=== PATIENT | male | born 1940 | race Caucasian/White ===

== ENCOUNTER → 2016-12-07 | Outpatient (CLI) | payer MEDICARE, OTHER ==
[2016-12-07 12:09] LABS: Basophils % (A) 1 %; CHCM 33.5; Eosinophils # (A) 0.2 k/uL (0-0.7); Eosinophils % (A) 3 %; HCT 44.8 % (39.0-53.0); HDW 3.08; HGB 14.7 gm/dL (13.0-17.5); Luc # (Auto) 0.14; Luc % (Auto) 3; Lymphocytes # (A) 1.1 k/uL (1.0-4.8); Lymphocytes % (A) 24 %; MCH 27.6 pg (25.0-35.0); MCHC 32.8 g/dL (31.0-37.0); MCV 84.3 fL (80.0-100.0); Mean Platelet Volume 6.9; Monocytes # (A) 0.3 k/uL (0-1.0); Monocytes % (A) 6 %; Neutrophils # (A) 2.7 k/uL (1.3-7.7); Neutrophils % (A) 62 %; RBC 5.32 m/uL (4.30-5.90); RDW 14.6 % (11.5-15.5); WBC 4.4 k/uL (3.8-10.6); WBC (Perox) 4.42
[2016-12-07 12:33] LABS: Calcium 9.5 mg/dL (8.4-10.2); Magnesium 1.8 mg/dL (1.6-2.3); Phosphorous 4.1 mg/dL (2.5-4.5); Potassium 4.5 mmol/L (3.5-5.1); Uric Acid 5.7 mg/dL (3.5-8.5)
[2016-12-07 12:34] LABS: Appearance,Urine Clear (Clear); Bilirubin,Urine Negative (Negative); Glucose,Urine (UA) Negative (Negative); Ketones,Urine Negative (Negative); Leukocyte Esterase,Urine Negative (Negative); Nitrite,Urine Negative (Negative); PH, Urine 6.5 (5.0-8.0); Protein,Urine Negative (Negative); Specific Gravity,Urine 1.005 (1.001-1.035); UA Billing (MACRO vs. MICRO) CHEM; Urobilinogen,Urine <2.0 mg/dL (<2.0)
[2016-12-07 12:41] LABS: % Iron Saturation 29.6 % (20-50)
== END | disposition home or self-care (01) ==
LOC: LABWHC1 11:43
PROVIDERS: ATTEND Internal Medicine Nephrology
DX: N18.9 Chronic kidney disease, unspecified (principal); M10.9 Gout, unspecified; E21.3 Hyperparathyroidism, unspecified; E55.9 Vitamin D deficiency, unspecified; D64.9 Anemia, unspecified; Z94.0 Kidney transplant status
CPT/HCPCS: 36415; 80048; 80195; 81003; 82306; 82728; 83540; 83550; 83735; 83970; 84100; 84550; 85025

== ENCOUNTER → 2016-12-20 | Outpatient (CLI) | payer MEDICARE, OTHER ==
[2016-12-20 15:32] LABS: CH 28.1; CHCM 34.2; HCT 40.8 % (39.0-53.0); HDW 3.17; HGB 13.7 gm/dL (13.0-17.5); MCH 27.8 pg (25.0-35.0); MCHC 33.6 g/dL (31.0-37.0); MCV 82.7 fL (80.0-100.0); Mean Platelet Volume 6.9; RBC 4.94 m/uL (4.30-5.90); RDW 14.4 % (11.5-15.5); WBC 7.1 k/uL (3.8-10.6)
[2016-12-20 16:29] LABS: Calcium 9.9 mg/dL (8.4-10.2); Potassium 4.7 mmol/L (3.5-5.1); Total Bilirubin 0.4 mg/dL (0.2-1.3); Total Protein 6.5 g/dL (6.3-8.2)
== END ==
LOC: LABWHC1 15:05
PROVIDERS: ATTEND Internal Medicine Nephrology
DX: E11.22 Type 2 diabetes mellitus with diabetic chronic kidney disease (principal); N18.3 Chronic kidney disease, stage 3 (moderate); I11.9 Hypertensive heart disease without heart failure; E78.2 Mixed hyperlipidemia
CPT/HCPCS: 36415; 80053; 80061; 82043; 83036; 84439; 84443; 85027

== ENCOUNTER → 2017-01-03 | Outpatient (CLI) | payer MEDICARE, OTHER | END | disposition home or self-care (01) | LOC: LABWHC1 14:34 | PROVIDERS: ATTEND Urology | DX: C61 Malignant neoplasm of prostate (principal) | CPT/HCPCS: 36415; 84153 ==

== ENCOUNTER → 2017-02-08 | Outpatient (CLI) | payer MEDICARE, OTHER ==
[2017-02-08 13:33] LABS: Appearance,Urine Clear (Clear); Bilirubin,Urine Negative (Negative); Glucose,Urine (UA) Negative (Negative); Ketones,Urine Negative (Negative); Leukocyte Esterase,Urine Negative (Negative); Nitrite,Urine Negative (Negative); PH, Urine 6.5 (5.0-8.0); Protein,Urine Negative (Negative); Specific Gravity,Urine 1.005 (1.001-1.035); UA Billing (MACRO vs. MICRO) CHEM; Urobilinogen,Urine <2.0 mg/dL (<2.0)
[2017-02-08 13:40] LABS: Basophils # (A) 0.1 k/uL (0-0.2); Basophils % (A) 1 %; CH 27.4; CHCM 32.8; Eosinophils # (A) 0.1 k/uL (0-0.7); Eosinophils % (A) 2 %; HCT 48.5 % (39.0-53.0); Luc # (Auto) 0.24; Luc % (Auto) 4; Lymphocytes # (A) 1.4 k/uL (1.0-4.8); Lymphocytes % (A) 22 %; MCH 27.7 pg (25.0-35.0); MCHC 32.9 g/dL (31.0-37.0); MCV 84.1 fL (80.0-100.0); Mean Platelet Volume 6.9; Monocytes # (A) 0.5 k/uL (0-1.0); Monocytes % (A) 8 %; Neutrophils # (A) 4.1 k/uL (1.3-7.7); Neutrophils % (A) 63 %; RBC 5.77 m/uL (4.30-5.90); RDW 14.8 % (11.5-15.5); WBC 6.5 k/uL (3.8-10.6); WBC (Perox) 6.43
[2017-02-08 13:59] LABS: Calcium 9.2 mg/dL (8.4-10.2); Magnesium 1.8 mg/dL (1.6-2.3); Phosphorous 4.6 mg/dL (2.5-4.5); Potassium 4.3 mmol/L (3.5-5.1); Uric Acid 5.7 mg/dL (3.5-8.5)
[2017-02-08 14:08] LABS: % Iron Saturation 25.3 % (20-50)
== END | disposition home or self-care (01) ==
LOC: LABWHC1 12:44
PROVIDERS: ATTEND Internal Medicine Nephrology
DX: E55.9 Vitamin D deficiency, unspecified (principal); E21.3 Hyperparathyroidism, unspecified; M10.9 Gout, unspecified; N18.3 Chronic kidney disease, stage 3 (moderate); D63.1 Anemia in chronic kidney disease; Z94.0 Kidney transplant status
CPT/HCPCS: 36415; 80048; 80195; 81003; 82306; 82728; 83540; 83550; 83735; 83970; 84100; 84550; 85025

== ENCOUNTER 2017-02-09 10:41 | Emergency (ER) | payer MEDICARE, OTHER ==
--- NOTE | 2017-02-09 11:15 | ED ---
General Adult HPI - General Chief complaint: Arrhythmia/Palpitations Stated complaint: Abnormal heart rate Time Seen by Provider: 02/09/17 10:46 Source: patient, family, RN notes reviewed, old records reviewed Mode of arrival: wheelchair Limitations: no limitations - History of Present Illness Initial comments: This is a 76-year-old male here for evaluation. This patient presents for evaluation of low blood pressure, arrhythmia. Not feeling well. Patient does have history of heart disease history of A. fib. Patient sent in by his community music therapist for further evaluation. Patient this time denies chest pain, denies nausea vomiting. No bowel pain no diarrhea. Patient denies any recent change in medications. No travel history no sick contacts. Patient has no recent hospitalizations - Related Data Home Medications Medication Instructions Recorded Confirmed Allopurinol [Zyloprim] 100 mg PO DAILY 02/09/17 02/09/17 Amitriptyline HCl [Elavil] 100 mg PO HS 02/09/17 02/09/17 Atenolol [Tenormin] 25 mg PO DAILY 02/09/17 02/09/17 Atorvastatin [Lipitor] 20 mg PO HS 02/09/17 02/09/17 Calcium Carbonate 1,000 mg PO DAILY 02/09/17 02/09/17 Chlorthalidone 25 mg PO DAILY 02/09/17 02/09/17 Cholecalciferol [Vitamin D3] 1,000 unit PO DAILY 02/09/17 02/09/17 DULoxetine HCL [Cymbalta] 120 mg PO DAILY 02/09/17 02/09/17 Ezetimibe [Zetia] 10 mg PO DAILY 02/09/17 02/09/17 Fenofibrate Nanocrystallized 48 mg PO DAILY 02/09/17 02/09/17 [Tricor] Finasteride [Proscar] 5 mg PO DAILY 02/09/17 02/09/17 INSULIN LISPRO (HumaLOG) [HumaLOG] See Protocol SQ ACHS 02/09/17 02/09/17 Insulin Glargine [Lantus] 18 unit SQ HS 02/09/17 02/09/17 Levothyroxine Sodium [Synthroid] 25 mcg PO HS 02/09/17 02/09/17 Lisinopril [Zestril] 5 mg PO HS 02/09/17 02/09/17 Magnesium Oxide [Mag-Ox] 250 mg PO DAILY 02/09/17 02/09/17 Mycophenolate Mofetil [Cellcept] 1,000 mg PO BID 02/09/17 02/09/17 Rivaroxaban [Xarelto] 20 mg PO HS 02/09/17 02/09/17 Tamsulosin HCl [Flomax] 0.4 mg PO DAILY 02/09/17 02/09/17 Vit C/E/Zn/Coppr/Lutein/Zeaxan 1 cap PO HS 02/09/17 02/09/17 [Preservision Areds 2 Softgel] amLODIPine [Norvasc] 10 mg PO DAILY 02/09/17 02/09/17 clonazePAM [KlonoPIN] 1 mg PO HS PRN 02/09/17 02/09/17 traZODone HCL [Desyrel] 50 mg PO HS 02/09/17 02/09/17 Allergies Allergy/AdvReac Type Severity Reaction Status Date / Time morphine Allergy Itching Verified 02/09/17 10:59 Review of Systems ROS Statement: Those systems with pertinent positive or pertinent negative responses have been documented in the HPI. ROS Other: All systems not noted in ROS Statement are negative. Past Medical History Past Medical History: Diabetes Mellitus, Hyperlipidemia, Hypertension, Renal Disease, Thyroid Disorder History of Any Multi-Drug Resistant Organisms: None Reported Past Surgical History: Coronary Bypass/CABG, Orthopedic Surgery Additional Past Surgical History / Comment(s): kidney transplant, parathyoid surgery, knee Past Psychological History: Anxiety, Depression Smoking Status: Never smoker Past Alcohol Use History: Rare Past Drug Use History: None Reported General Exam Limitations: no limitations General appearance: alert, in no apparent distress Head exam: Present: atraumatic, normocephalic, normal inspection Eye exam: Present: normal appearance, PERRL, EOMI. Absent: scleral icterus, conjunctival injection, periorbital swelling ENT exam: Present: normal exam, mucous membranes moist Neck exam: Present: normal inspection. Absent: tenderness, meningismus, lymphadenopathy Respiratory exam: Present: normal lung sounds bilaterally. Absent: respiratory distress, wheezes, rales, rhonchi, stridor Cardiovascular Exam: Present: regular rate, normal rhythm, normal heart sounds. Absent: systolic murmur, diastolic murmur, rubs, gallop, clicks GI/Abdominal exam: Present: soft, normal bowel sounds. Absent: distended, tenderness, guarding, rebound, rigid Extremities exam: Present: normal inspection, full ROM, normal capillary refill. Absent: tenderness, pedal edema, joint swelling, calf tenderness Back exam: Present: normal inspection Neurological exam: Present: alert, oriented X3, CN II-XII intact Psychiatric exam: Present: normal affect, normal mood Skin exam: Present: warm, dry, intact, normal color. Absent: rash Course Vital Signs 02/09/17 02/09/17 02/09/17 10:47 12:17 12:55 Temperature 97.7 F 96.8 F L Pulse Rate 74 78 65 Respiratory 16 18 Rate Blood Pressure 114/61 110/59 116/69 O2 Sat by Pulse 96 98 94 L Oximetry EKG Findings - EKG Comments: EKG Findings:: EKG shows A. fib rate of 72, QRS 84, QTC 444 Medical Decision Making - Medical Decision Making 70 formality ER for evaluation palpitations, weakness, not feeling well. Patient states the study feels better, based on results of testing he would like to be discharged home - Lab Data Result diagrams: 02/09/17 11:13 02/09/17 11:13 Lab Results 02/09/17 02/09/17 02/09/17 Range/Units 11:13 11:13 11:13 WBC 5.2 (3.8-10.6) k/uL RBC 5.25 (4.30-5.90) m/uL Hgb 14.9 (13.0-17.5) gm/dL Hct 43.7 (39.0-53.0) % MCV 83.1 (80.0-100.0) fL MCH 28.3 (25.0-35.0) pg MCHC 34.1 (31.0-37.0) g/dL RDW 15.6 H (11.5-15.5) % Plt Count 211 (150-450) k/uL Neutrophils % 62 % Lymphocytes % 24 % Monocytes % 8 % Eosinophils % 2 % Basophils % 1 % Neutrophils # 3.2 (1.3-7.7) k/uL Lymphocytes # 1.2 (1.0-4.8) k/uL Monocytes # 0.4 (0-1.0) k/uL Eosinophils # 0.1 (0-0.7) k/uL Basophils # 0.1 (0-0.2) k/uL PT (9.0-12.0) sec INR (<1.2) APTT (22.0-30.0) sec Sodium 136 L (137-145) mmol/L Potassium 3.8 (3.5-5.1) mmol/L Chloride 105 (98-107) mmol/L Carbon Dioxide 21 L (22-30) mmol/L Anion Gap 10 mmol/L BUN 38 H (9-20) mg/dL Creatinine 2.14 H (0.66-1.25) mg/dL Est GFR (MDRD) Af Amer 37 (>60 ml/min/1.73 sqM) Est GFR (MDRD) Non-Af 30 (>60 ml/min/1.73 sqM) Glucose 150 H (74-99) mg/dL POC Glucose (mg/dL) (75-99) mg/dL POC Glu [employer]xture As[employer]er ID Plasma Lactic Acid Jc (0.7-2.0) mmol/L Calcium 9.2 (8.4-10.2) mg/dL Phosphorus 4.7 H (2.5-4.5) mg/dL Magnesium 1.9 (1.6-2.3) mg/dL Total Bilirubin 0.5 (0.2-1.3) mg/dL AST 25 (17-59) U/L ALT 33 (21-72) U/L Alkaline Phosphatase 65 (38-126) U/L Total Creatine Kinase 344 H (55-170) U/L CK-MB (CK-2) 3.8 H* (0.0-2.4) ng/mL CK-MB (CK-2) Rel Index 1.1 Troponin I 0.014 (0.000-0.034) ng/mL Total Protein 6.1 L (6.3-8.2) g/dL Albumin 4.0 (3.5-5.0) g/dL TSH 4.760 H (0.465-4.680) mIU/L Free T4 (0.78-2.19) ng/dL Free T3 pg/mL (2.8-5.3) pg/ml 02/09/17 02/09/17 02/09/17 Range/Units 11:13 11:13 11:13 WBC (3.8-10.6) k/uL RBC (4.30-5.90) m/uL Hgb (13.0-17.5) gm/dL Hct (39.0-53.0) % MCV (80.0-100.0) fL MCH (25.0-35.0) pg MCHC (31.0-37.0) g/dL RDW (11.5-15.5) % Plt Count (150-450) k/uL Neutrophils % % Lymphocytes % % Monocytes % % Eosinophils % % Basophils % % Neutrophils # (1.3-7.7) k/uL Lymphocytes # (1.0-4.8) k/uL Monocytes # (0-1.0) k/uL Eosinophils # (0-0.7) k/uL Basophils # (0-0.2) k/uL PT 12.9 H (9.0-12.0) sec INR 1.3 H (<1.2) APTT 29.1 (22.0-30.0) sec Sodium (137-145) mmol/L Potassium (3.5-5.1) mmol/L Chloride (98-107) mmol/L Carbon Dioxide (22-30) mmol/L Anion Gap mmol/L BUN (9-20) mg/dL Creatinine (0.66-1.25) mg/dL Est GFR (MDRD) Af Amer (>60 ml/min/1.73 sqM) Est GFR (MDRD) Non-Af (>60 ml/min/1.73 sqM) Glucose (74-99) mg/dL POC Glucose (mg/dL) (75-99) mg/dL POC Glu [employer]er ID Plasma Lactic Acid Jc 1.0 (0.7-2.0) mmol/L Calcium (8.4-10.2) mg/dL Phosphorus (2.5-4.5) mg/dL Magnesium (1.6-2.3) mg/dL Total Bilirubin (0.2-1.3) mg/dL AST (17-59) U/L ALT (21-72) U/L Alkaline Phosphatase (38-126) U/L Total Creatine Kinase (55-170) U/L CK-MB (CK-2) (0.0-2.4) ng/mL CK-MB (CK-2) Rel Index Troponin I (0.000-0.034) ng/mL Total Protein (6.3-8.2) g/dL Albumin (3.5-5.0) g/dL TSH (0.465-4.680) mIU/L Free T4 1.06 (0.78-2.19) ng/dL Free T3 pg/mL 3.0 (2.8-5.3) pg/ml 02/09/17 Range/Units 11:43 WBC (3.8-10.6) k/uL RBC (4.30-5.90) m/uL Hgb (13.0-17.5) gm/dL Hct (39.0-53.0) % MCV (80.0-100.0) fL MCH (25.0-35.0) pg MCHC (31.0-37.0) g/dL RDW (11.5-15.5) % Plt Count (150-450) k/uL Neutrophils % % Lymphocytes % % Monocytes % % Eosinophils % % Basophils % % Neutrophils # (1.3-7.7) k/uL Lymphocytes # (1.0-4.8) k/uL Monocytes # (0-1.0) k/uL Eosinophils # (0-0.7) k/uL Basophils # (0-0.2) k/uL PT (9.0-12.0) sec INR (<1.2) APTT (22.0-30.0) sec Sodium (137-145) mmol/L Potassium (3.5-5.1) mmol/L Chloride (98-107) mmol/L Carbon Dioxide (22-30) mmol/L Anion Gap mmol/L BUN (9-20) mg/dL Creatinine (0.66-1.25) mg/dL Est GFR (MDRD) Af Amer (>60 ml/min/1.73 sqM) Est GFR (MDRD) Non-Af (>60 ml/min/1.73 sqM) Glucose (74-99) mg/dL POC Glucose (mg/dL) 162 H (75-99) mg/dL POC Glu [employer] Assembler ID Steffen Billy Plasma Lactic Acid Jc (0.7-2.0) mmol/L Calcium (8.4-10.2) mg/dL Phosphorus (2.5-4.5) mg/dL Magnesium (1.6-2.3) mg/dL Total Bilirubin (0.2-1.3) mg/dL AST (17-59) U/L ALT (21-72) U/L Alkaline Phosphatase (38-126) U/L Total Creatine Kinase (55-170) U/L CK-MB (CK-2) (0.0-2.4) ng/mL CK-MB (CK-2) Rel Index Troponin I (0.000-0.034) ng/mL Total Protein (6.3-8.2) g/dL Albumin (3.5-5.0) g/dL TSH (0.465-4.680) mIU/L Free T4 (0.78-2.19) ng/dL Free T3 pg/mL (2.8-5.3) pg/ml - Radiology Data Radiology results: report reviewed (Chest x-ray is negative for acute disease), image reviewed Disposition Clinical Impression: Palpitations, Weakness Disposition: HOME SELF-CARE Condition: Good Instructions: Weakness (ED) Referrals: Donnie Ro MD [Primary Care Provider] - 1-2 days
[2017-02-09 11:28] LABS: Basophils # (A) 0.1 k/uL (0-0.2); Basophils % (A) 1 %; CH 28.5; CHCM 34.6; Eosinophils # (A) 0.1 k/uL (0-0.7); Eosinophils % (A) 2 %; HCT 43.7 % (39.0-53.0); HDW 3.13; HGB 14.9 gm/dL (13.0-17.5); Luc # (Auto) 0.17; Luc % (Auto) 3; Lymphocytes # (A) 1.2 k/uL (1.0-4.8); Lymphocytes % (A) 24 %; MCH 28.3 pg (25.0-35.0); MCHC 34.1 g/dL (31.0-37.0); MCV 83.1 fL (80.0-100.0); Mean Platelet Volume 7.6; Monocytes # (A) 0.4 k/uL (0-1.0); Monocytes % (A) 8 %; Neutrophils # (A) 3.2 k/uL (1.3-7.7); Neutrophils % (A) 62 %; RBC 5.25 m/uL (4.30-5.90); RDW 15.6 % (11.5-15.5); WBC 5.2 k/uL (3.8-10.6); WBC (Perox) 4.96
[2017-02-09 11:37] LABS: Calcium 9.2 mg/dL (8.4-10.2); Magnesium 1.9 mg/dL (1.6-2.3); Phosphorous 4.7 mg/dL (2.5-4.5); Potassium 3.8 mmol/L (3.5-5.1); Total Bilirubin 0.5 mg/dL (0.2-1.3); Total Protein 6.1 g/dL (6.3-8.2)
--- NOTE | 2017-02-09 11:37 | XR ---
EXAMINATION TYPE: XR chest 2V DATE OF EXAM: 02/09/2017 COMPARISON: 01/19/2016 HISTORY: Shortness of breath TECHNIQUE: Frontal and lateral views of the chest are obtained. FINDINGS: Scattered senescent parenchymal changes noted. Hyperinflation compatible with COPD. No evidence for infiltrate. No evidence for atelectasis. Heart size is stable. Mediastinal structures are stable and grossly unremarkable. No evidence for hilar prominence. Degenerative changes dorsal spine. IMPRESSION: 1. No evidence for acute pulmonary disease.
[2017-02-09 11:46] LABS: Glucose,Whole Blood 162 mg/dL (75-99)
[2017-02-09 12:05] LABS: Troponin I 0.014 ng/mL (0.000-0.034)
[2017-02-09 12:10] LABS: Creatine Kinase MB 3.8 ng/mL (0.0-2.4)
[2017-02-09 12:13] LABS: INR 1.3 (<1.2); Partial Thromboplastin Time 29.1 sec (22.0-30.0); Prothrombin Time 12.9 sec (9.0-12.0)
[2017-02-09 12:18] VITALS: RESP 18
[2017-02-09 12:57] VITALS: BP 116/69; PULSE 65; TEMP 96.8
== END 2017-02-09 13:01 | disposition home or self-care (01) ==
LOC: EC 10:41
DX: I48.91 Unspecified atrial fibrillation (principal); I95.9 Hypotension, unspecified; E78.5 Hyperlipidemia, unspecified; I10 Essential (primary) hypertension; E11.9 Type 2 diabetes mellitus without complications; E07.9 Disorder of thyroid, unspecified; F41.9 Anxiety disorder, unspecified; F32.9 Major depressive disorder, single episode, unspecified; N28.9 Disorder of kidney and ureter, unspecified; Z79.01 Long term (current) use of anticoagulants; Z79.4 Long term (current) use of insulin; Z79.899 Other long term (current) drug therapy; Z88.5 Allergy status to narcotic agent; Z95.1 Presence of aortocoronary bypass graft
CPT/HCPCS: 36415; 71020; 80053; 82550; 82553; 83605; 83735; 84100; 84439; 84443; 84481; 84484; 85025; 85610; 85730; 93005; 99285

== ENCOUNTER → 2017-03-02 | Outpatient (CLI) | payer MEDICARE, OTHER ==
[2017-03-02 13:40] LABS: Calcium 9.9 mg/dL (8.4-10.2); Potassium 4.2 mmol/L (3.5-5.1)
== END | disposition home or self-care (01) ==
LOC: LABWHC1 13:00
PROVIDERS: ATTEND Internal Medicine Nephrology
DX: N18.3 Chronic kidney disease, stage 3 (moderate) (principal)
CPT/HCPCS: 36415; 80048

== ENCOUNTER → 2017-04-19 | Outpatient (CLI) | payer MEDICARE, OTHER ==
[2017-04-19 14:13] LABS: Basophils % (A) 1 %; CH 27.1; CHCM 32.2; Eosinophils # (A) 0.1 k/uL (0-0.7); Eosinophils % (A) 2 %; HCT 48.4 % (39.0-53.0); HDW 3.17; HGB 15.8 gm/dL (13.0-17.5); Hypochromasia Slight; Luc # (Auto) 0.14; Luc % (Auto) 3; Lymphocytes # (A) 0.9 k/uL (1.0-4.8); Lymphocytes % (A) 15 %; MCH 27.7 pg (25.0-35.0); MCHC 32.6 g/dL (31.0-37.0); MCV 84.8 fL (80.0-100.0); Mean Platelet Volume 6.9; Monocytes # (A) 0.4 k/uL (0-1.0); Monocytes % (A) 7 %; Neutrophils # (A) 4.2 k/uL (1.3-7.7); Neutrophils % (A) 73 %; RBC 5.71 m/uL (4.30-5.90); RDW 15.2 % (11.5-15.5); WBC 5.8 k/uL (3.8-10.6); WBC (Perox) 5.65
[2017-04-19 14:15] LABS: Appearance,Urine Clear (Clear); Bilirubin,Urine Negative (Negative); Glucose,Urine (UA) Negative (Negative); Ketones,Urine Negative (Negative); Leukocyte Esterase,Urine Negative (Negative); Nitrite,Urine Negative (Negative); PH, Urine 6.5 (5.0-8.0); Protein,Urine Negative (Negative); Specific Gravity,Urine 1.007 (1.001-1.035); UA Billing (MACRO vs. MICRO) CHEM; Urobilinogen,Urine <2.0 mg/dL (<2.0)
[2017-04-19 14:29] LABS: Calcium 9.5 mg/dL (8.4-10.2); Magnesium 1.7 mg/dL (1.6-2.3); Phosphorous 3.3 mg/dL (2.5-4.5); Potassium 4.3 mmol/L (3.5-5.1); Uric Acid 5.5 mg/dL (3.5-8.5)
[2017-04-19 18:36] LABS: Iron Saturation 29.47 (15.00-50.00)
== END | disposition home or self-care (01) ==
LOC: LABWHC1 13:38
PROVIDERS: ATTEND Internal Medicine Nephrology
DX: D64.9 Anemia, unspecified (principal); N18.3 Chronic kidney disease, stage 3 (moderate); E55.9 Vitamin D deficiency, unspecified; E21.3 Hyperparathyroidism, unspecified; M10.9 Gout, unspecified; N39.0 Urinary tract infection, site not specified; Z94.0 Kidney transplant status
CPT/HCPCS: 36415; 80048; 80195; 81003; 82306; 82728; 83540; 83550; 83735; 83970; 84100; 84550; 85025

== ENCOUNTER → 2017-06-21 | Outpatient (CLI) | payer MEDICARE, OTHER ==
[2017-06-21 10:55] LABS: Calcium 9.2 mg/dL (8.4-10.2); Potassium 4.2 mmol/L (3.5-5.1); Total Bilirubin 0.4 mg/dL (0.2-1.3); Total Protein 6.3 g/dL (6.3-8.2)
== END | disposition home or self-care (01) ==
LOC: LABWHC1 09:24
PROVIDERS: ATTEND Internal Medicine Endocrinology, Diabetes & Metabolism
DX: E11.65 Type 2 diabetes mellitus with hyperglycemia (principal)
CPT/HCPCS: 36415; 80053; 80061; 83036

== ENCOUNTER → 2017-11-28 | Outpatient (CLI) | payer MEDICARE, OTHER ==
[2017-11-28 11:48] LABS: Basophils # (A) 0.1 k/uL (0-0.2); Basophils % (A) 1 %; Eosinophils # (A) 0.2 k/uL (0-0.7); Eosinophils % (A) 3 %; HGB 15.9 gm/dL (13.0-17.5); Lymphocytes # (A) 1.3 k/uL (1.0-4.8); Lymphocytes % (A) 17 %; MCH 26.5 pg (25.0-35.0); MCHC 33.1 g/dL (31.0-37.0); MCV 79.9 fL (80.0-100.0); Mean Platelet Volume 6.6; Monocytes # (A) 0.4 k/uL (0-1.0); Monocytes % (A) 6 %; Neutrophils # (A) 5.5 k/uL (1.3-7.7); Neutrophils % (A) 72 %; Platelet Count 204 k/uL (150-450); RBC 6.01 m/uL (4.30-5.90); RDW 15.5 % (11.5-15.5); WBC 7.6 k/uL (3.8-10.6)
[2017-11-28 12:03] LABS: Magnesium 1.7 mg/dL (1.6-2.3); Phosphorus 4.2 mg/dL (2.5-4.5); Potassium 4.6 mmol/L (3.5-5.1); Uric Acid 4.8 mg/dL (3.5-8.5)
[2017-11-28 12:16] LABS: Appearance,Urine Clear (Clear); Bilirubin,Urine Negative (Negative); Blood,Urine Negative (Negative); Color,Urine Light Yellow; Glucose,Urine (UA) Negative (Negative); Ketones,Urine Negative (Negative); Leukocyte Esterase,Urine Negative (Negative); Nitrite,Urine Negative (Negative); PH, Urine 6.5 (5.0-8.0); Protein,Urine Negative (Negative); Specific Gravity,Urine 1.004 (1.001-1.035); Urobilinogen,Urine <2.0 mg/dL (<2.0)
[2017-11-28 16:36] LABS: Iron Saturation 29.47 (15.00-50.00)
[2017-11-28 16:45] LABS: Vitamin D 25 Hydroxy 33.6 ng/mL (30.0-100.0)
[2017-11-28 18:48] LABS: Parathyroid Hormone Intact 10.7 pg/mL (14.0-72.0)
== END | disposition home or self-care (01) ==
LOC: LABWHC1 11:12
PROVIDERS: ATTEND Nurse Practitioner Family
DX: N18.3 Chronic kidney disease, stage 3 (moderate) (principal); D64.9 Anemia, unspecified; E55.9 Vitamin D deficiency, unspecified; E21.3 Hyperparathyroidism, unspecified; M10.9 Gout, unspecified
CPT/HCPCS: 36415; 80048; 80195; 81003; 82306; 82728; 83540; 83550; 83735; 83970; 84100; 84550; 85025

== ENCOUNTER → 2017-12-27 | Outpatient (CLI) | payer MEDICARE, OTHER | END | disposition home or self-care (01) | LOC: LABWHC1 13:47 | PROVIDERS: ATTEND Nurse Practitioner Family | DX: Z94.0 Kidney transplant status (principal) | CPT/HCPCS: 36415; 80195 ==

== ENCOUNTER → 2018-01-01 | Outpatient (CLI) | payer MEDICARE, OTHER | END | disposition home or self-care (01) | LOC: LABWHC1 16:10 | PROVIDERS: ATTEND Urology | DX: J18.9 Pneumonia, unspecified organism (principal) | CPT/HCPCS: 36415; 84153 ==

== ENCOUNTER → 2018-01-26 | Outpatient (CLI) | payer MEDICARE, OTHER ==
[2018-01-26 15:11] LABS: Albumin 4.4 g/dL (3.5-5.0); Calcium 9.6 mg/dL (8.4-10.2); Potassium 4.3 mmol/L (3.5-5.1); Total Bilirubin 0.7 mg/dL (0.2-1.3); Total Protein 6.7 g/dL (6.3-8.2)
[2018-01-26 15:12] LABS: HCT 52.4 % (39.0-53.0); HGB 17.1 gm/dL (13.0-17.5); Hypochromasia Slight; MCH 27.3 pg (25.0-35.0); MCHC 32.5 g/dL (31.0-37.0); Mean Platelet Volume 6.7; Platelet Count 189 k/uL (150-450); RBC 6.24 m/uL (4.30-5.90); RDW 15.9 % (11.5-15.5); WBC 6.1 k/uL (3.8-10.6)
[2018-01-26 15:28] LABS: T4, Free (Free Thyroxine) 0.81 ng/dL (0.78-2.19)
[2018-01-26 21:51] LABS: Hemoglobin A1C 6.1 % (4.0-6.0)
== END | disposition home or self-care (01) ==
LOC: LABWHC1 14:15
PROVIDERS: ATTEND Internal Medicine
DX: I25.10 Atherosclerotic heart disease of native coronary artery without angina pectoris (principal); K21.0 Gastro-esophageal reflux disease with esophagitis; E78.2 Mixed hyperlipidemia; E11.9 Type 2 diabetes mellitus without complications; I11.9 Hypertensive heart disease without heart failure
CPT/HCPCS: 36415; 80053; 80061; 82043; 82272; 82570; 83036; 84439; 84443; 85027

== ENCOUNTER → 2018-03-29 | Outpatient (CLI) | payer MEDICARE, OTHER ==
[2018-03-29 08:48] LABS: Basophils # (A) 0.1 k/uL (0-0.2); Basophils % (A) 1 %; Eosinophils # (A) 0.1 k/uL (0-0.7); Eosinophils % (A) 2 %; HCT 52.2 % (39.0-53.0); HGB 16.7 gm/dL (13.0-17.5); Hypochromasia Slight; Lymphocytes # (A) 2.3 k/uL (1.0-4.8); Lymphocytes % (A) 36 %; MCH 26.8 pg (25.0-35.0); MCV 83.9 fL (80.0-100.0); Monocytes # (A) 0.5 k/uL (0-1.0); Monocytes % (A) 8 %; Neutrophils # (A) 3.1 k/uL (1.3-7.7); Neutrophils % (A) 49 %; Platelet Count 190 k/uL (150-450); RBC 6.23 m/uL (4.30-5.90); RDW 15.6 % (11.5-15.5); WBC 6.4 k/uL (3.8-10.6)
[2018-03-29 08:56] LABS: Calcium 9.4 mg/dL (8.4-10.2); Magnesium 1.9 mg/dL (1.6-2.3); Phosphorus 4.3 mg/dL (2.5-4.5); Potassium 3.9 mmol/L (3.5-5.1); Uric Acid 4.4 mg/dL (3.5-8.5)
[2018-03-29 17:23] LABS: Iron Saturation 15.83 (15.00-50.00)
[2018-03-29 17:31] LABS: Vitamin D 25 Hydroxy 26.7 ng/mL (30.0-100.0)
[2018-03-29 17:47] LABS: Parathyroid Hormone Intact 26.9 pg/mL (14.0-72.0)
== END | disposition home or self-care (01) ==
LOC: LABWHC1 08:02
PROVIDERS: ATTEND Nurse Practitioner Family
DX: N18.3 Chronic kidney disease, stage 3 (moderate) (principal); D63.1 Anemia in chronic kidney disease; E55.9 Vitamin D deficiency, unspecified; E21.3 Hyperparathyroidism, unspecified; M10.9 Gout, unspecified; N39.0 Urinary tract infection, site not specified; Z94.0 Kidney transplant status
CPT/HCPCS: 36415; 80048; 80195; 82306; 82728; 83540; 83550; 83735; 83970; 84100; 84550; 85025

== ENCOUNTER → 2018-04-06 | Outpatient (CLI) | payer MEDICARE, OTHER ==
[2018-04-06 20:06] LABS: Hemoglobin A1C 6.7 % (4.0-6.0)
== END ==
LOC: LABWHC1 13:40
PROVIDERS: ATTEND Internal Medicine
DX: E11.9 Type 2 diabetes mellitus without complications (principal)
CPT/HCPCS: 36415; 83036

== ENCOUNTER → 2018-05-15 | Outpatient (CLI) | payer MEDICARE, OTHER | END | disposition home or self-care (01) | LOC: LABWHC1 15:38 | PROVIDERS: ATTEND Urology | DX: C61 Malignant neoplasm of prostate (principal) | CPT/HCPCS: 36415; 84153 ==

== ENCOUNTER → 2018-11-28 | Outpatient (CLI) | payer MEDICARE ==
[2018-11-28 14:12] LABS: Basophils # (A) 0.1 k/uL (0-0.2); Basophils % (A) 1 %; Eosinophils # (A) 0.1 k/uL (0-0.7); Eosinophils % (A) 2 %; HGB 15.4 gm/dL (13.0-17.5); Hypochromasia Slight; Lymphocytes # (A) 0.7 k/uL (1.0-4.8); Lymphocytes % (A) 11 %; MCH 26.8 pg (25.0-35.0); MCHC 30.9 g/dL (31.0-37.0); MCV 86.6 fL (80.0-100.0); Mean Platelet Volume 6.7; Monocytes # (A) 0.3 k/uL (0-1.0); Monocytes % (A) 5 %; Neutrophils # (A) 4.8 k/uL (1.3-7.7); Neutrophils % (A) 80 %; Platelet Count 196 k/uL (150-450); RBC 5.77 m/uL (4.30-5.90); RDW 15.8 % (11.5-15.5)
[2018-11-28 19:58] LABS: Iron Saturation 18.8 (15.00-50.00)
[2018-11-28 20:07] LABS: Vitamin D 25 Hydroxy 37.1 ng/mL (30.0-100.0)
[2018-11-28 20:27] LABS: Parathyroid Hormone Intact 21.6 pg/mL (14.0-72.0)
[2018-11-28 20:28] LABS: Albumin 4.4 g/dL (3.80-4.90); Calcium 9.4 mg/dL (8.7-10.3); Phosphorus 3.4 mg/dL (2.4-5.1); Potassium 4.5 mmol/L (3.5-5.5); Uric Acid 4.9 mg/dL (3.7-8.7)
[2018-11-28 21:00] LABS: Hemoglobin A1C 6.3 % (4.0-6.0)
== END | disposition home or self-care (01) ==
LOC: LABWHC1 13:00
PROVIDERS: ATTEND Internal Medicine
DX: E11.22 Type 2 diabetes mellitus with diabetic chronic kidney disease (principal); N18.3 Chronic kidney disease, stage 3 (moderate); D63.1 Anemia in chronic kidney disease; E55.9 Vitamin D deficiency, unspecified; N25.81 Secondary hyperparathyroidism of renal origin; R80.9 Proteinuria, unspecified; M10.9 Gout, unspecified; N39.0 Urinary tract infection, site not specified; C61 Malignant neoplasm of prostate
CPT/HCPCS: 36415; 80048; 80195; 82040; 82306; 82728; 83036; 83540; 83550; 83735; 83970; 84100; 84153; 84550; 85025

== ENCOUNTER → 2018-12-31 | Outpatient (CLI) | payer MEDICARE ==
[2018-12-31 13:14] LABS: HCT 51.4 % (39.0-53.0); HGB 16.3 gm/dL (13.0-17.5); Hypochromasia Slight; MCHC 31.7 g/dL (31.0-37.0); MCV 85.2 fL (80.0-100.0); Mean Platelet Volume 7.2; Platelet Count 191 k/uL (150-450); RBC 6.03 m/uL (4.30-5.90); WBC 5.7 k/uL (3.8-10.6)
[2018-12-31 13:19] LABS: Potassium 4.1 mmol/L (3.5-5.1)
== END | disposition home or self-care (01) ==
LOC: LABPAT 12:28
PROVIDERS: ATTEND Internal Medicine Interventional Cardiology
DX: Z01.812 Encounter for preprocedural laboratory examination (principal); I48.0 Paroxysmal atrial fibrillation; E78.00 Pure hypercholesterolemia, unspecified
CPT/HCPCS: 36415; 80051; 82565; 84520; 85027

== ENCOUNTER 2019-01-03 06:12 | Day surgery (SDC) | payer MEDICARE ==
[2018-12-31 15:57] VITALS: BMI 30.2
[2019-01-03] MEDS ORDERED: SODIUM CHLORIDE 0.9% 1,000 ML IV SCH (06:41)
[2019-01-03] MEDS ORDERED: LACTATED RINGERS 1,000 ML IV SCH (06:41)
[2019-01-03 07:08] LABS: Glucose,Whole Blood 94 mg/dL (75-99)
[2019-01-03] MEDS ORDERED: LIDOCAINE 1% INJ 10MG/ML (20 ML MDV) ONE (07:30)
[2019-01-03] MEDS ORDERED: PROPOFOL 10 MG/ML 20 ML VIAL IV ONE (07:30)
[2019-01-03] MEDS ORDERED: SODIUM CHLORIDE 0.9% 500 ML 500 ML IV ONE (07:52)
[2019-01-03 08:03] VITALS: TEMP 98
--- NOTE | 2019-01-03 08:07 | CE ---
CARDIAC ELECTROPHYSIOLOGY REPORT PROCEDURE: Electrical cardioversion. INDICATION: Persistent atrial fibrillation in a patient with previous renal transplantation and diabetes. He was started on amiodarone 200 mg t.i.d. for about 10 days and brought in for the procedure. PROCEDURE NOTE: Under the influence of ultra short-acting intravenous anesthetic agent with the attendance of the anesthesiologist, an initial shock of 200 joules was delivered with anterior and posterior patches. Patient remained in atrial fibrillation after a couple of sinus beats. A second shock of 250 joules was delivered and patient converted to sinus rhythm. He remained neurologically intact and hemodynamically stable. This was a successful electrical cardioversion on the second shock. Results were discussed with the patient and family and I expect he will be discharged later on today and I will see him in the office in one week. MMODL / IJN: [id number] /
[2019-01-03 09:39] VITALS: PULSE 80
[2019-01-03 10:45] VITALS: BP 158/92; RESP 18
--- NOTE | 2019-01-08 06:21 | CDI ---
Outpatient Documentation Clarification Form Date: 01/08/19 CDS/Animal Control Officer Name: Shira Funes Phone: If any questions, call Seema Hoover Real Estate Clerk at [phone] Patient Name: Chet Lobo Admit Date: 01/03/19 Discharge Date: 01/03/19 ATTENTION: The [facility] Coding Staff appreciate your assistance in clarifying documentation. Please respond to the clarification below the line at the bottom and electronically sign. The [facility] Coding staff will review the response and follow-up if needed. Please note: Queries are made part of the Legal Health Record. If you have any questions, please contact the Real Estate Clerk. Dear Dr. Crabtree, Please provide clarification as to what type of atrial fibrillation for this patient. On the H&P under Impression and Plan, it is documented as paroxysmal atrial fibrillation and on the cardioversion report it is documented as persistent atrial fibrillation. Please clarify. Thank you for your kind consideration. Persistant A fib MTDD
== END 2019-01-03 12:11 | disposition home or self-care (01) ==
LOC: CATHCVL 06:12
PROVIDERS: ATTEND Internal Medicine Interventional Cardiology
DX: I48.1 Persistent atrial fibrillation (principal); E78.00 Pure hypercholesterolemia, unspecified; E11.9 Type 2 diabetes mellitus without complications; I10 Essential (primary) hypertension; E78.5 Hyperlipidemia, unspecified; Z94.0 Kidney transplant status; Z79.890 Hormone replacement therapy; E07.9 Disorder of thyroid, unspecified; R41.3 Other amnesia; M19.90 Unspecified osteoarthritis, unspecified site; F41.9 Anxiety disorder, unspecified; F32.9 Major depressive disorder, single episode, unspecified; Z79.01 Long term (current) use of anticoagulants; Z79.4 Long term (current) use of insulin; Z79.899 Other long term (current) drug therapy; Z88.5 Allergy status to narcotic agent
CPT/HCPCS: 92960; J2001; J2704

== ENCOUNTER → 2019-01-08 | Outpatient (CLI) | payer MEDICARE ==
[2019-01-08 23:39] LABS: African American GFR (CKD) 41.4 (60.0-200.0); Anion Gap 9.3 mmol/L (4.00-12.00); BUN/Creat Ratio 11.67 Ratio (12.00-20.00); Calcium 9.4 mg/dL (8.7-10.3); Carbon Dioxide 28.7 mmol/L (21.6-31.8)
== END | disposition home or self-care (01) ==
LOC: LABWHC1 15:09
PROVIDERS: ATTEND Internal Medicine Nephrology
DX: N18.3 Chronic kidney disease, stage 3 (moderate) (principal)
CPT/HCPCS: 36415; 80048

== ENCOUNTER → 2019-02-23 | Outpatient (CLI) | payer MEDICARE ==
[2019-02-23 11:27] LABS: Basophils # (A) 0.1 k/uL (0-0.2); Basophils % (A) 1 %; Eosinophils # (A) 0.1 k/uL (0-0.7); Eosinophils % (A) 2 %; HGB 14.8 gm/dL (13.0-17.5); Lymphocytes # (A) 1.1 k/uL (1.0-4.8); Lymphocytes % (A) 17 %; MCH 26.1 pg (25.0-35.0); MCHC 31.6 g/dL (31.0-37.0); MCV 82.7 fL (80.0-100.0); Mean Platelet Volume 6.6; Monocytes # (A) 0.5 k/uL (0-1.0); Monocytes % (A) 8 %; Neutrophils # (A) 4.4 k/uL (1.3-7.7); Neutrophils % (A) 70 %; Platelet Count 225 k/uL (150-450); RBC 5.68 m/uL (4.30-5.90); RDW 15.4 % (11.5-15.5); WBC 6.4 k/uL (3.8-10.6)
[2019-02-23 12:19] LABS: Appearance,Urine Clear (Clear); Bilirubin,Urine Negative (Negative); Blood,Urine Negative (Negative); Color,Urine Light Yellow; Glucose,Urine (UA) Negative (Negative); Ketones,Urine Negative (Negative); Leukocyte Esterase,Urine Negative (Negative); Nitrite,Urine Negative (Negative); PH, Urine 6.5 (5.0-8.0); Protein,Urine Negative (Negative); Specific Gravity,Urine 1.008 (1.001-1.035); Urobilinogen,Urine <2.0 mg/dL (<2.0)
[2019-02-23 16:56] LABS: Iron Saturation 13.33 (15.00-50.00)
[2019-02-23 16:58] LABS: African American GFR (CKD) 41.4 (60.0-200.0); Albumin 4.1 g/dL (3.80-4.90); Anion Gap 8.9 mmol/L (4.00-12.00); BUN/Creat Ratio 12.22 Ratio (12.00-20.00); Calcium 9.2 mg/dL (8.7-10.3); Carbon Dioxide 26.1 mmol/L (21.6-31.8); Magnesium 1.8 mg/dL (1.5-2.4); Phosphorus 4.3 mg/dL (2.4-5.1); Uric Acid 3.5 mg/dL (3.7-8.7)
[2019-02-23 17:04] LABS: Vitamin D 25 Hydroxy 39.3 ng/mL (30.0-100.0)
[2019-02-23 18:06] LABS: Creatinine,Urine Random 60.3 mg/dL; Total Protein,Urine Random 8.2 mg/dL (0.0-13.5)
== END | disposition home or self-care (01) ==
LOC: LABWHC1 10:45
PROVIDERS: ATTEND Internal Medicine Nephrology
DX: N18.3 Chronic kidney disease, stage 3 (moderate) (principal); R80.9 Proteinuria, unspecified; E55.9 Vitamin D deficiency, unspecified; N25.81 Secondary hyperparathyroidism of renal origin; M10.9 Gout, unspecified; N39.0 Urinary tract infection, site not specified; D64.9 Anemia, unspecified
CPT/HCPCS: 36415; 80048; 80195; 81003; 82040; 82306; 82570; 82728; 83540; 83550; 83735; 83970; 84100; 84156; 84550; 85025

== ENCOUNTER → 2019-03-27 | Outpatient (CLI) | payer MEDICARE ==
[2019-03-27 20:09] LABS: Chol/HDL Ratio 3.02; LDL Cholesterol,Calculated 77.6 mg/dL (0.0-131.0); VLDL Calculation 25.4 mg/dL (5.00-40.00)
[2019-03-27 22:27] LABS: Hemoglobin A1C 6.8 % (4.0-6.0)
== END | disposition home or self-care (01) ==
LOC: LABWHC1 13:43
PROVIDERS: ATTEND Internal Medicine
DX: E11.9 Type 2 diabetes mellitus without complications (principal)
CPT/HCPCS: 36415; 80061; 82043; 82570; 83036

== ENCOUNTER 2019-04-28 15:24 | Emergency (ER) | payer MEDICARE ==
[2019-04-28 15:27] VITALS: RESP 18
--- NOTE | 2019-04-28 16:28 | ED ---
General Adult HPI - General Chief complaint: Upper Respiratory Infection Stated complaint: URI Time Seen by Provider: 04/28/19 16:14 Source: patient Mode of arrival: ambulatory Limitations: no limitations - History of Present Illness Initial comments: Patient presents to the ED with his for evaluation. The patient states that he has had a cough and nasal congestion for the past 5 days. Patient states that he has been coughing up green sputum. Patient denies having any pain, fever or chills, headache, chest pain, dyspnea, hemoptysis, palpitations, dizziness, nausea or vomiting, abdominal pain, urinary symptoms, decreased urine output, leg or calf swelling or tenderness, or any other symptoms or complaints. Patient's states that she is just getting over a cold herself right now. - Related Data Home Medications Medication Instructions Recorded Confirmed Allopurinol [Zyloprim] 100 mg PO DAILY 02/09/17 04/28/19 Amitriptyline HCl [Elavil] 100 mg PO DAILY 02/09/17 04/28/19 Calcium Carbonate 1,000 mg PO DAILY 02/09/17 04/28/19 Chlorthalidone 12.5 mg PO DAILY 02/09/17 04/28/19 Finasteride [Proscar] 5 mg PO DAILY 02/09/17 04/28/19 INSULIN LISPRO (HumaLOG) [HumaLOG] See Protocol SQ AC-BRKFST 02/09/17 04/28/19 Insulin Glargine [Lantus] 22 unit SQ AC-SUPPER 02/09/17 04/28/19 Magnesium Oxide [Mag-Ox] 250 mg PO DAILY 02/09/17 04/28/19 Tamsulosin HCl [Flomax] 0.4 mg PO DAILY 02/09/17 04/28/19 clonazePAM [KlonoPIN] 1 mg PO HS PRN 02/09/17 04/28/19 traZODone HCL [Desyrel] 50 mg PO HS 02/09/17 04/28/19 DULoxetine HCL [Cymbalta] 120 mg PO DAILY 04/19/18 04/28/19 Mycophenolate Mofetil [Cellcept] 1,000 mg PO BID 04/19/18 04/28/19 INSULIN LISPRO (humaLOG) [humaLOG] See Protocol SQ AC-SUPPER 12/31/18 04/28/19 INSULIN LISPRO (humaLOG) [humaLOG] See Protocol SQ HS 12/31/18 04/28/19 Multivitamins, Thera [Multivitamin 1 tab PO DAILY 12/31/18 04/28/19 (formulary)] Amiodarone [Cordarone] 200 mg PO DAILY 01/03/19 04/28/19 Metoprolol Tartrate [Lopressor] 25 mg PO BID 01/03/19 04/28/19 Atorvastatin Calcium [Lipitor] 10 mg PO HS 04/28/19 04/28/19 Cholecalciferol (Vitamin D3) 6,000 unit PO DAILY 04/28/19 04/28/19 [Vitamin D3] Rivaroxaban [Xarelto] 15 mg PO HS 04/28/19 04/28/19 Sirolimus 1.5 mg PO DAILY 04/28/19 04/28/19 Visionary Eye Vitamin 1 tab PO HS 04/28/19 04/28/19 amLODIPine [Norvasc] 2.5 mg PO DAILY 04/28/19 04/28/19 Previous Rx's Medication Instructions Recorded Doxycycline Hyclate 100 mg PO Q12H 7 Days #14 tab 04/28/19 Oxymetazoline 0.05% Nasl Bokoshe 2 spray EA NOSTRIL BID PRN 3 Days 04/28/19 [Afrin 0.05% Nasal Bokoshe] #1 bottle Allergies Allergy/AdvReac Type Severity Reaction Status Date / Time morphine Allergy Itching Verified 04/28/19 16:41 Review of Systems ROS Statement: Those systems with pertinent positive or pertinent negative responses have been documented in the HPI. ROS Other: All systems not noted in ROS Statement are negative. 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 History of Any Multi-Drug Resistant Organisms: None Reported Past Surgical History: Coronary Bypass/CABG, Orthopedic Surgery Additional Past Surgical History / Comment(s): kidney transplant, parathyoid muller rgery, knee Past Anesthesia/Blood Transfusion Reactions: No Reported Reaction Past Psychological History: Anxiety, Depression Smoking Status: Former smoker - Past Family History Father Family Medical History: Deep Vein Thrombosis (DVT) Son(s) Family Medical History: Cancer Additional Family Medical History / Comment(s): Skin cancer. General Exam Limitations: no limitations General appearance: alert, in no apparent distress Head exam: Present: atraumatic, normocephalic Eye exam: Present: normal appearance, EOMI ENT exam: Present: normal oropharynx, mucous membranes moist Neck exam: Present: other (Trachea is in midline). Absent: tenderness Respiratory exam: Present: normal lung sounds bilaterally. Absent: respiratory distress, wheezes, rales, rhonchi, stridor Cardiovascular Exam: Present: regular rate, normal rhythm, normal heart sounds, other (Normal radial pulses bilaterally) GI/Abdominal exam: Present: soft. Absent: distended, tenderness Extremities exam: Absent: tenderness, pedal edema, calf tenderness Neurological exam: Present: alert, oriented X3. Absent: motor sensory deficit Psychiatric exam: Present: normal affect, normal mood Skin exam: Present: warm, dry, intact, normal color Course Vital Signs 04/28/19 15:25 Temperature 99.9 F H Pulse Rate 102 H Respiratory 18 Rate Blood Pressure 143/86 O2 Sat by Pulse 97 Oximetry Medical Decision Making - Medical Decision Making Patient is afebrile and without leukocytosis. Patient is breathing comfortably with clear breath sounds bilaterally and a normal room air oxygen saturation. Patient's chest x-ray is unremarkable. I suspect that the patient's symptoms are likely secondary to acute bronchitis and acute sinusitis. Patient and are aware of the patient's test results, the patient feels comfortable going home at this time. He was counseled about acute bronchitis and acute sinusitis. Prescriptions were sent to his preferred pharmacy. Return and follow-up ins tructions were clearly explained. Patient was instructed to follow up closely with his PCP. Patient was instructed to return to the ED should he develop new or worsening symptoms. - Lab Data Result diagrams: 04/28/19 17:05 04/28/19 17:05 Lab Results 04/28/19 04/28/19 04/28/19 Range/Units 17:05 17:05 17:05 WBC 10.4 (3.8-10.6) k/uL RBC 5.36 (4.30-5.90) m/uL Hgb 14.5 (13.0-17.5) gm/dL Hct 43.9 (39.0-53.0) % MCV 81.9 (80.0-100.0) fL MCH 27.1 (25.0-35.0) pg MCHC 33.0 (31.0-37.0) g/dL RDW 15.3 (11.5-15.5) % Plt Count 178 (150-450) k/uL Neutrophils % 84 % Lymphocytes % 6 % Monocytes % 7 % Eosinophils % 1 % Basophils % 1 % Neutrophils # 8.8 H (1.3-7.7) k/uL Lymphocytes # 0.6 L (1.0-4.8) k/uL Monocytes # 0.7 (0-1.0) k/uL Eosinophils # 0.1 (0-0.7) k/uL Basophils # 0.1 (0-0.2) k/uL Sodium 136 L (137-145) mmol/L Potassium 4.1 (3.5-5.1) mmol/L Chloride 101 (98-107) mmol/L Carbon Dioxide 23 (22-30) mmol/L Anion Gap 12 mmol/L BUN 27 H (9-20) mg/dL Creatinine 1.64 H (0.66-1.25) mg/dL Est GFR (CKD-EPI)AfAm 46 (>60 ml/min/1.73 sqM) Est GFR (CKD-EPI)NonAf 40 (>60 ml/min/1.73 sqM) Glucose 160 H (74-99) mg/dL Plasma Lactic Acid Jc (0.7-2.0) mmol/L Calcium 9.7 (8.4-10.2) mg/dL Total Bilirubin 1.0 (0.2-1.3) mg/dL AST 28 (17-59) U/L ALT 32 (21-72) U/L Alkaline Phosphatase 92 (38-126) U/L Total Protein 6.6 (6.3-8.2) g/dL Albumin 4.0 (3.5-5.0) g/dL Influenza Type A RNA Not Detected (Not Detectd) Influenza Type B (PCR) Not Detected (Not Detectd) 04/28/19 Range/Units 17:05 WBC (3.8-10.6) k/uL RBC (4.30-5.90) m/uL Hgb (13.0-17.5) gm/dL Hct (39.0-53.0) % MCV (80.0-100.0) fL MCH (25.0-35.0) pg MCHC (31.0-37.0) g/dL RDW (11.5-15.5) % Plt Count (150-450) k/uL Neutrophils % % Lymphocytes % % Monocytes % % Eosinophils % % Basophils % % Neutrophils # (1.3-7.7) k/uL Lymphocytes # (1.0-4.8) k/uL Monocytes # (0-1.0) k/uL Eosinophils # (0-0.7) k/uL Basophils # (0-0.2) k/uL Sodium (137-145) mmol/L Potassium (3.5-5.1) mmol/L Chloride (98-107) mmol/L Carbon Dioxide (22-30) mmol/L Anion Gap mmol/L BUN (9-20) mg/dL Creatinine (0.66-1.25) mg/dL Est GFR (CKD-EPI)AfAm (>60 ml/min/1.73 sqM) Est GFR (CKD-EPI)NonAf (>60 ml/min/1.73 sqM) Glucose (74-99) mg/dL Plasma Lactic Acid Jc 1.5 (0.7-2.0) mmol/L Calcium (8.4-10.2) mg/dL Total Bilirubin (0.2-1.3) mg/dL AST (17-59) U/L ALT (21-72) U/L Alkaline Phosphatase (38-126) U/L Total Protein (6.3-8.2) g/dL Albumin (3.5-5.0) g/dL Influenza Type A RNA (Not Detectd) Influenza Type B (PCR) (Not Detectd) - Radiology Data Radiology results: image reviewed (Chest x-ray shows no acute cardiopulmonary disease) Disposition Clinical Impression: Acute bronchitis, Acute sinusitis Disposition: HOME SELF-CARE Condition: Stable Instructions (If sedation given, give patient instructions): Sinusitis (ED), Acute Bronchitis (ED) Additional Instructions: Return to the ER immediately should you develop a high fever, chest pain, shortn ess of breath, vomiting, feeling dizzy or faint, or new or worsening symptoms. Follow-up closely with your primary care provider. Prescriptions: Oxymetazoline 0.05% Nasl Bokoshe [Afrin 0.05% Nasal B[place]he] 2 spray EA NOSTRIL BID PRN 3 Days #1 bottle PRN Reason: Nasal Congestion Doxycycline Hyclate 100 mg PO Q12H 7 Days #14 tab Is patient prescribed a controlled substance at d/c from ED?: No Referrals: Narinder Rosenberg DO [Primary Care Provider] - 1-2 days Time of Disposition: 17:56
[2019-04-28 17:29] LABS: Basophils # (A) 0.1 k/uL (0-0.2); Basophils % (A) 1 %; Eosinophils # (A) 0.1 k/uL (0-0.7); Eosinophils % (A) 1 %; HCT 43.9 % (39.0-53.0); HGB 14.5 gm/dL (13.0-17.5); Lymphocytes # (A) 0.6 k/uL (1.0-4.8); Lymphocytes % (A) 6 %; MCH 27.1 pg (25.0-35.0); MCV 81.9 fL (80.0-100.0); Mean Platelet Volume 6.2; Monocytes # (A) 0.7 k/uL (0-1.0); Monocytes % (A) 7 %; Neutrophils # (A) 8.8 k/uL (1.3-7.7); Neutrophils % (A) 84 %; Platelet Count 178 k/uL (150-450); RBC 5.36 m/uL (4.30-5.90); RDW 15.3 % (11.5-15.5); WBC 10.4 k/uL (3.8-10.6)
--- NOTE | 2019-04-28 17:33 | XR ---
EXAMINATION TYPE: XR chest 2V DATE OF EXAM: 04/28/2019 COMPARISON: 02/09/2017 HISTORY: Cough TECHNIQUE: Frontal and lateral views of the chest are obtained. FINDINGS: Heart is normal. Lungs are clear of infiltrate. There is no heart failure. There are no hi lar masses. Bony thorax is intact. IMPRESSION: Normal chest. No change.
[2019-04-28 17:40] LABS: Calcium 9.7 mg/dL (8.4-10.2); Potassium 4.1 mmol/L (3.5-5.1); Total Protein 6.6 g/dL (6.3-8.2)
[2019-04-28 17:59] VITALS: BP 137/84; PULSE 82; TEMP 98.8
== END 2019-04-28 18:06 | disposition home or self-care (01) ==
LOC: EC 15:24
DX: J20.9 Acute bronchitis, unspecified (principal); J01.90 Acute sinusitis, unspecified; E11.9 Type 2 diabetes mellitus without complications; E78.5 Hyperlipidemia, unspecified; I10 Essential (primary) hypertension; F32.9 Major depressive disorder, single episode, unspecified; F41.9 Anxiety disorder, unspecified; Z87.891 Personal history of nicotine dependence; Z88.5 Allergy status to narcotic agent; Z79.01 Long term (current) use of anticoagulants; Z79.4 Long term (current) use of insulin; Z79.899 Other long term (current) drug therapy; Z92.25 Personal history of immunosuppression therapy; Z94.0 Kidney transplant status; Z95.1 Presence of aortocoronary bypass graft
CPT/HCPCS: 36415; 71046; 80053; 83605; 85025; 87040; 87502; 99283

== ENCOUNTER → 2019-05-27 | Outpatient (CLI) | payer MEDICARE ==
[2019-05-27 14:43] LABS: Basophils # (A) 0.1 k/uL (0-0.2); Basophils % (A) 1 %; Eosinophils # (A) 0.2 k/uL (0-0.7); Eosinophils % (A) 2 %; HCT 46.1 % (39.0-53.0); HGB 14.5 gm/dL (13.0-17.5); Hypochromasia Moderate; Lymphocytes # (A) 1.1 k/uL (1.0-4.8); Lymphocytes % (A) 15 %; MCH 26.8 pg (25.0-35.0); MCHC 31.4 g/dL (31.0-37.0); MCV 85.1 fL (80.0-100.0); Mean Platelet Volume 5.8; Monocytes # (A) 0.4 k/uL (0-1.0); Monocytes % (A) 6 %; Neutrophils # (A) 5.2 k/uL (1.3-7.7); Neutrophils % (A) 74 %; Platelet Count 170 k/uL (150-450); RBC 5.41 m/uL (4.30-5.90); RDW 15.6 % (11.5-15.5); WBC 7.1 k/uL (3.8-10.6)
[2019-05-27 15:10] LABS: Appearance,Urine Clear (Clear); Bilirubin,Urine Negative (Negative); Blood,Urine Negative (Negative); Color,Urine Light Yellow; Glucose,Urine (UA) Negative (Negative); Ketones,Urine Negative (Negative); Leukocyte Esterase,Urine Negative (Negative); Nitrite,Urine Negative (Negative); PH, Urine 6.5 (5.0-8.0); Protein,Urine Negative (Negative); Specific Gravity,Urine 1.007 (1.001-1.035); Urobilinogen,Urine <2.0 mg/dL (<2.0)
[2019-05-27 19:27] LABS: Ferritin 252.8 ng/mL (22.0-322.0)
[2019-05-27 19:30] LABS: % Iron Saturation 19.79 (15.00-50.00); African American GFR (CKD) 56.2 (60.0-200.0); Albumin 4.3 g/dL (3.80-4.90); Calcium 9.1 mg/dL (8.7-10.3); Magnesium 1.6 mg/dL (1.5-2.4); Phosphorus 3.7 mg/dL (2.4-5.1); Uric Acid 5.2 mg/dL (3.7-8.7)
[2019-05-27 21:45] LABS: Creatinine,Urine Random 59.6 mg/dL; Total Protein,Urine Random 7.5 mg/dL (0.0-13.5)
== END | disposition home or self-care (01) ==
LOC: LABWHC1 13:56
PROVIDERS: ATTEND Nurse Practitioner Family
DX: N25.81 Secondary hyperparathyroidism of renal origin (principal); M10.9 Gout, unspecified; N39.0 Urinary tract infection, site not specified; R80.9 Proteinuria, unspecified; D63.1 Anemia in chronic kidney disease; N18.4 Chronic kidney disease, stage 4 (severe); E55.9 Vitamin D deficiency, unspecified
CPT/HCPCS: 36415; 80048; 80195; 81003; 82040; 82306; 82570; 82728; 83540; 83550; 83735; 83970; 84100; 84156; 84550; 85025

== ENCOUNTER → 2019-06-07 | Outpatient (CLI) | payer MEDICARE | END | disposition home or self-care (01) | LOC: LABWHC1 14:56 | PROVIDERS: ATTEND Urology | DX: R97.20 Elevated prostate specific antigen [PSA] (principal) | CPT/HCPCS: 36415; 84153 ==

== ENCOUNTER → 2019-06-29 | Outpatient (CLI) | payer MEDICARE ==
[2019-06-29 17:08] LABS: Chol/HDL Ratio 5.28; T4, Free (Free Thyroxine) 0.9 ng/dL (0.80-1.80)
[2019-06-29 18:41] LABS: Hemoglobin A1C 6.4 % (4.0-6.0)
== END | disposition home or self-care (01) ==
LOC: LABWHC1 11:16
PROVIDERS: ATTEND Internal Medicine
DX: E11.9 Type 2 diabetes mellitus without complications (principal); E03.9 Hypothyroidism, unspecified; E55.9 Vitamin D deficiency, unspecified; R53.82 Chronic fatigue, unspecified
CPT/HCPCS: 36415; 80061; 82306; 83036; 83721; 84439; 84443

== ENCOUNTER 2019-10-14 18:12 | Inpatient (IN) | payer MEDICARE ==
--- NOTE | 2019-10-14 18:35 | ED ---
General Adult HPI - General Chief complaint: Recheck/Abnormal Lab/Rx Stated complaint: low blood platelets Time Seen by Provider: 10/14/19 18:19 Source: patient Mode of arrival: ambulatory Limitations: no limitations - History of Present Illness Initial comments: Dictation was produced using [employer] dictation software. please excuse any grammatical, word or spelling errors. Chief Complaint: 78-year-old male past medical history of kidney transplant, atrial fibrillation diabetes presents with low platelets. History of Present Illness: 8-year-old male presents today with low platelets. Patient was evaluated by his primary care physician for epistaxis. He had basic labs performed and was found that patient's platelets were found to be as low as 3. Patient denies any history of thrombocytopenia. No recent changes to his medications. Patient states he started having nosebleeds 3-4 days ago. Another episode today which was 1 labs were drawn by his primary care physician. Patient takes immunosuppressive medications. Patient also takes Xarelto. Patient noted that he was getting more excessive bruising recently. Complains of bruising to the bilateral upper extremity posteriorly. Patient denies any other symptoms. No nausea vomiting. No chest pain or shortness of breath. The ROS documented in this emergency department record has been reviewed and confirmed by me. Those systems with pertinent positive or negative responses have been documented in the HPI. All other systems are other negative and/or noncontributory. PHYSICAL EXAM: General Impression: Alert and oriented x3, not in acute distress HEENT: Normocephalic atraumatic, extra-ocular movements intact, pupils equal and reactive to light bilaterally, mucous membranes moist, petechia to the soft palate and gingiva, and dried blood at the nasal mucosa bilaterally Cardiovascular: Heart regular rate and rhythm, S1&S2 audible, no murmurs, rubs or gallops Chest: Lungs clear to auscultation bilaterally, no rhonchi, no wheeze, no rales Abdomen: Bowel sounds present, abdomen soft, non-tender, non-distended, no organomegaly Musculoskeletal: Pulses present and equal in all extremities, no peripheral edema Motor: no focal deficits noted Neurological: CN II-XII grossly intact, no focal motor or sensory deficits noted Skin: Diffuse petechia to the skin sparing the palms and soles. Psych: Normal affect and mood ED course: 78-year-old male presents with thrombocytopenia. Signs upon arrival are within acceptable limits. Patient showing signs of coagulopathy. Patient states she's had a chest cold since the first or second week of August. St ates that he has been having mild cough since then. States he is still currently has mild chest cold symptoms. He was seen in the emergency department [place]. He was discharged at that time without any precautions. Patient just had returned from [place]. Patient traveled via car. He states he has not had any overt sick contacts recently. X-ray obtained showingAcute infiltrate in the bilateral bases and right upper lung. His findings give patient's coca presentation are concerning for possibly minimally symptomatic coronavirus infection. Considering that patient will be admitted to the hospital for thrombocytopenia and given his comorbidities I believe it's reasonable. Patient be tested for covid 19 virus.Laboratory evaluation obtained. No leukocytosis. Hemoglobin stable at 10.9. Platelet count is 2. Coag panel is unremarkable. Fibrinogen is 422 metabolic panel is unremarkable. Patient will be given platelets. No concern for TTP, HUS, HRT, DIC. 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 Patient will be given platelets. Patient has no findings of uremia or findings to suggest other thrombocytopenic cause. Discussed patient case with Dr. Narinder Rosenberg is willing to accept patients care. Hematology will be on consult. EKG interpretation: Ventricular rate 63, sinus rhythm, PA interval 240, QRS 94, QTC 470. No PA prolongation, no QTC prolongation, no ST or T-wave changes noted. Overall, this EKG is unremarkable - Related Data Home Medications Medication Instructions Recorded Confirmed Allopurinol [Zyloprim] 100 mg PO DAILY 02/09/17 10/14/19 Amitriptyline HCl [Elavil] 100 mg PO DAILY 02/09/17 10/14/19 Calcium Carbonate 1,000 mg PO DAILY 02/09/17 10/14/19 Chlorthalidone 12.5 mg PO DAILY 02/09/17 10/14/19 Finasteride [Proscar] 5 mg PO DAILY 02/09/17 10/14/19 Insulin Glargine [Lantus] 22 unit SQ AC-SUPPER 02/09/17 10/14/19 Magnesium Oxide [Mag-Ox] 250 mg PO DAILY 02/09/17 10/14/19 Tamsulosin HCl [Flomax] 0.4 mg PO DAILY 02/09/17 10/14/19 clonazePAM [KlonoPIN] 1 mg PO BID PRN 02/09/17 10/14/19 DULoxetine HCL [Cymbalta] 120 mg PO DAILY 04/19/18 10/14/19 Mycophenolate Mofetil [Cellcept] 1,000 mg PO BID 04/19/18 10/14/19 INSULIN LISPRO (humaLOG) [humaLOG] See Protocol SQ ACHS 12/31/18 10/14/19 Multivitamins, Thera [Multivitamin 1 tab PO DAILY 12/31/18 10/14/19 (formulary)] Amiodarone [Cordarone] 200 mg PO DAILY 01/03/19 10/14/19 Metoprolol Tartrate [Lopressor] 25 mg PO BID 01/03/19 10/14/19 Cholecalciferol (Vitamin D3) 6,000 unit PO DAILY 04/28/19 10/14/19 [Vitamin D3] Rivaroxaban [Xarelto] 15 mg PO HS 04/28/19 10/14/19 Sirolimus 1 mg PO DAILY 04/28/19 10/14/19 Visionary Eye Vitamin 1 tab PO HS 04/28/19 10/14/19 amLODIPine [Norvasc] 2.5 mg PO DAILY 04/28/19 10/14/19 Atorvastatin Calcium [Lipitor] 20 mg PO HS 10/14/19 10/14/19 Sirolimus [Rapamune] 0.5 mg PO DAILY 10/14/19 10/14/19 traZODone HCL 100 mg PO HS 10/14/19 10/14/19 Allergies Allergy/AdvReac Type Severity Reaction Status Date / Time morphine Allergy Itching Verified 10/14/19 18:18 Review of Systems ROS Statement: Those systems with pertinent positive or pertinent negative responses have been documented in the HPI. ROS Other: All systems not noted in ROS Statement are negative. 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 History of Any Multi-Drug Resistant Organisms: None Reported Past Surgical History: Coronary Bypass/CABG, Orthopedic Surgery Additional Past Surgical History / Comment(s): kidney transplant, parathyoid surgery, knee Past Anesthesia/Blood Transfusion Reactions: No Reported Reaction Past Psychological History: Anxiety, Depression Smoking Status: Former smoker - Past Family History Father Family Medical History: Deep Vein Thrombosis (DVT) Son(s) Family Medical History: Cancer Additional Family Medical History / Comment(s): Skin cancer. General Exam Limitations: no limitations Course Vital Signs 10/14/19 18:14 Temperature 97.4 F L Pulse Rate 68 Respiratory 18 Rate Blood Pressure 158/80 O2 Sat by Pulse 99 Oximetry Medical Decision Making - Lab Data Result diagrams: 10/14/19 18:37 10/14/19 18:37 Lab Results 10/14/19 10/14/19 10/14/19 Range/Units 18:37 18:37 18:37 WBC 5.1 (3.8-10.6) k/uL RBC 4.15 L (4.30-5.90) m/uL Hgb 10.9 L (13.0-17.5) gm/dL Hct 33.7 L (39.0-53.0) % MCV 81.2 (80.0-100.0) fL MCH 26.2 (25.0-35.0) pg MCHC 32.3 (31.0-37.0) g/dL RDW 17.0 H (11.5-15.5) % Plt Count 2 L* (150-450) k/uL Neutrophils % 76 % Lymphocytes % 13 % Monocytes % 5 % Eosinophils % 2 % Basophils % 1 % Neutrophils # 3.8 (1.3-7.7) k/uL Lymphocytes # 0.7 L (1.0-4.8) k/uL Monocytes # 0.3 (0-1.0) k/uL Eosinophils # 0.1 (0-0.7) k/uL Basophils # 0.0 (0-0.2) k/uL Manual Slide Review Performed Polychromasia Present Hypochromasia Moderate Hypochromasia (manual) Present Poikilocytosis Slight Anisocytosis Slight Target Cells Present Tear Drop Cells Present PT 11.3 (9.0-12.0) sec INR 1.1 (<1.2) APTT 26.0 (22.0-30.0) sec Fibrinogen 422 (200-500) mg/dL Sodium (137-145) mmol/L Potassium (3.5-5.1) mmol/L Chloride (98-107) mmol/L Carbon Dioxide (22-30) mmol/L Anion Gap mmol/L BUN (9-20) mg/dL Creatinine (0.66-1.25) mg/dL Est GFR (CKD-EPI)AfAm (>60 ml/min/1.73 sqM) Est GFR (CKD-EPI)NonAf (>60 ml/min/1.73 sqM) Glucose (74-99) mg/dL Calcium (8.4-10.2) mg/dL Blood Type A Positive Blood Type Recheck A Pos Bld Type Recheck Status No Antibody Screen NEGATIVE Spec Expiration Date 10/17/2019 - 233610/14/19 Range/Units 18:37 WBC (3.8-10.6) k/uL RBC (4.30-5.90) m/uL Hgb (13.0-17.5) gm/dL Hct (39.0-53.0) % MCV (80.0-100.0) fL MCH (25.0-35.0) pg MCHC (31.0-37.0) g/dL RDW (11.5-15.5) % Plt Count (150-450) k/uL Neutrophils % % Lymphocytes % % Monocytes % % Eosinophils % % Basophils % % Neutrophils # (1.3-7.7) k/uL Lymphocytes # (1.0-4.8) k/uL Monocytes # (0-1.0) k/uL Eosinophils # (0-0.7) k/uL Basophils # (0-0.2) k/uL Manual Slide Review Polychromasia Hypochromasia Hypochromasia (manual) Poikilocytosis Anisocytosis Target Cells Tear Drop Cells PT (9.0-12.0) sec INR (<1.2) APTT (22.0-30.0) sec Fibrinogen (200-500) mg/dL Sodium 136 L (137-145) mmol/L Potassium 4.2 (3.5-5.1) mmol/L Chloride 103 (98-107) mmol/L Carbon Dioxide 26 (22-30) mmol/L Anion Gap 7 mmol/L BUN 28 H (9-20) mg/dL Creatinine 1.37 H (0.66-1.25) mg/dL Est GFR (CKD-EPI)AfAm 58 (>60 ml/min/1.73 sqM) Est GFR (CKD-EPI)NonAf 50 (>60 ml/min/1.73 sqM) Glucose 125 H (74-99) mg/dL Calcium 8.5 (8.4-10.2) mg/dL Blood Type Blood Type Recheck Bld Type Recheck Status Antibody Screen Spec Expiration Date Disposition Clinical Impression: Thrombocytopenia, Chest cold Disposition: ADMITTED IP TO THIS HOSP Condition: Fair Referrals: Narinder Rosenberg DO [Primary Care Provider] - 1-2 days Decision Time: 19:51
[2019-10-14] MEDS ORDERED: methylPREDNISolone SOD SUCCI 125 MG/2 ML VIAL IV STA (18:40)
[2019-10-14 18:57] LABS: Anisocytosis Slight; Basophils % (A) 1 %; Eosinophils # (A) 0.1 k/uL (0-0.7); Eosinophils % (A) 2 %; HCT 33.7 % (39.0-53.0); HGB 10.9 gm/dL (13.0-17.5); Hypochromasia Moderate; Lymphocytes # (A) 0.7 k/uL (1.0-4.8); Lymphocytes % (A) 13 %; MCH 26.2 pg (25.0-35.0); MCHC 32.3 g/dL (31.0-37.0); MCV 81.2 fL (80.0-100.0); Mean Platelet Volume 8.4; Monocytes # (A) 0.3 k/uL (0-1.0); Monocytes % (A) 5 %; Neutrophils # (A) 3.8 k/uL (1.3-7.7); Neutrophils % (A) 76 %; Poikilocytosis Slight; RBC 4.15 m/uL (4.30-5.90); WBC 5.1 k/uL (3.8-10.6)
[2019-10-14 19:04] LABS: Calcium 8.5 mg/dL (8.4-10.2); Potassium 4.2 mmol/L (3.5-5.1)
--- NOTE | 2019-10-14 19:16 | XR ---
EXAMINATION TYPE: XR chest 2V DATE OF EXAM: 10/14/2019 COMPARISON: Chest x-ray April 28, 2019. HISTORY: Cough and hemoptysis. TECHNIQUE: Frontal and lateral views of the chest are obtained. FINDINGS: Persistent elevated and eventrated anterior aspect right hemidiaphragm. Diminished inspira tion on current study. Suspect some new areas of increased opacity right upper lung and medial base. Increased opacity left lung base also noted. The cardiac silhouette size is upper limits of normal w ith atherosclerotic aorta. The osseous structures are demineralized. IMPRESSION: Diminished inspiration with areas of new acute infiltrate and/or atelectasis suspected b ilateral bases and right upper lung. .
[2019-10-14 19:38] LABS: INR 1.1 (<1.2); Prothrombin Time 11.3 sec (9.0-12.0)
[2019-10-14 19:43] LABS: Hypochromasia (M) Present; Polychromasia Present; Target Cells Present; Tear Drop Cells Present
[2019-10-14 19:44] LABS: Platelet Count 2 k/uL (150-450)
[2019-10-14] MEDS ORDERED: ONDANSETRON 4 MG/2 ML VIAL IVP PRN (19:51)
[2019-10-14] MEDS ORDERED: NALOXONE 0.4 MG/ML 1 ML VIAL IV PRN (19:51)
[2019-10-14] MEDS ORDERED: ACETAMINOPHEN TAB 325 MG TAB PO PRN (19:51)
[2019-10-14] MEDS ORDERED: clonazePAM 1 MG TAB PO PRN (19:52)
[2019-10-14 21:58] LABS: Glucose,Whole Blood 181 mg/dL (75-99)
[2019-10-14] MEDS ORDERED: INSULIN ASPART (NovoLOG) 100 UNIT/ML VIAL SQ SCH (22:00)
[2019-10-14] MEDS: PANTOPRAZOLE 40 MG/10 ML VIAL IV SCH (22:39)
[2019-10-14] MEDS: MYCOPHENOLATE MOFETIL 500 MG TAB PO SCH (22:40)
[2019-10-14] MEDS: METOPROLOL TARTRATE 25 MG TAB PO SCH (22:40)
[2019-10-14] MEDS: traZODone HCL 100 MG TAB PO SCH (22:40)
[2019-10-14] MEDS: ATORVASTATIN 20 MG TAB PO SCH (22:40)
[2019-10-14] MEDS: SODIUM CHLORIDE 0.9% 1,000 ML IV SCH (22:42)
[2019-10-14] MEDS: INSULIN DETEMIR (LEVEMIR) 100 UNIT/ML SYR SQ SCH (23:10)
[2019-10-14 23:15] LABS: Reticulocyte % 4.23 % (0.10-1.80)
[2019-10-15 07:10] LABS: Glucose,Whole Blood 375 mg/dL (75-99)
[2019-10-15] MEDS: CALCIUM CARBONATE 500 MG CHEWABLE PO SCH (08:28)
[2019-10-15] MEDS: PANTOPRAZOLE 40 MG/10 ML VIAL IV SCH (08:28)
[2019-10-15] MEDS: MYCOPHENOLATE MOFETIL 500 MG TAB PO SCH (08:29)
[2019-10-15] MEDS: METOPROLOL TARTRATE 25 MG TAB PO SCH ×2 (08:29→21:15)
[2019-10-15] MEDS: TAMSULOSIN 0.4 MG CAP.ER.24H PO SCH (08:30)
[2019-10-15] MEDS: CHLORTHALIDONE 25 MG TAB PO SCH (08:30)
[2019-10-15] MEDS: DULoxetine HCL 60 MG CAPSULE.DR PO SCH (08:31)
[2019-10-15] MEDS: AMITRIPTYLINE HCL 50 MG TAB PO SCH (08:31)
[2019-10-15] MEDS: AMIODARONE 200 MG TAB PO SCH (08:31)
[2019-10-15] MEDS: amLODIPine 2.5 MG TAB PO SCH (08:31)
[2019-10-15] MEDS: INSULIN ASPART (NovoLOG) 100 UNIT/ML VIAL SQ SCH ×5 (08:31→21:15)
[2019-10-15] MEDS: FINASTERIDE 5 MG TAB PO SCH (08:31)
[2019-10-15 08:35] LABS: Calcium 8.6 mg/dL (8.4-10.2); Potassium 4.2 mmol/L (3.5-5.1)
[2019-10-15 08:54] LABS: Anisocytosis Slight; HCT 34.5 % (39.0-53.0); HGB 10.7 gm/dL (13.0-17.5); Hypochromasia Moderate; MCH 26.4 pg (25.0-35.0); MCHC 31.1 g/dL (31.0-37.0); MCV 84.8 fL (80.0-100.0); Mean Platelet Volume 7.6; Platelet Count 3 k/uL (150-450); Poikilocytosis Slight; RBC 4.06 m/uL (4.30-5.90); RDW 17.1 % (11.5-15.5); WBC 5.5 k/uL (3.8-10.6)
[2019-10-15] MEDS ORDERED: SIROLIMUS 1 MG PO SCH (09:00)
[2019-10-15] MEDS ORDERED: SIROLIMUS 0.5 MG PO SCH (09:00)
[2019-10-15] MEDS ORDERED: ALLOPURINOL 100 MG TAB PO SCH (09:00)
[2019-10-15] MEDS: methylPREDNISolone SOD SUCCI 125 MG/2 ML VIAL IV SCH ×3 (10:37→23:10)
--- NOTE | 2019-10-15 11:43 | P.NPCON ---
History of Present Illness - Reason for Consult chronic renal failure - History of Present Illness Reason for consultation: Renal transplant management History of present illness: Patient is a 78-year-old male seen in renal consultation for renal transplant management. Patient received a donor renal allograft on 05/20/2003. 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 Patient's currently maintained on sirolimus and mycophenolate. Patient's baseline creatinine is near 1.4 and his GFR is currently at baseline. Patient states the last few days he's been noticing that he is bruising very easily and has several bruises in his upper extremities. He also complains of epistaxis especially when blowing his nose. Patient saw his primary care physician and had CBC done which revealed a platelet count of 2000. Patient is currently receiving platelet transfusion and his anticoagulation is held. He is also on IV steroids at this time. He denies edema. Denies hematuria or dysuria. No vomiting or diarrhea. Hemodynamically stable. No fever or chills. Vital signs are stable. General: The patient appeared well nourished and normally developed. HEENT: Head exam is unremarkable. Neck is without jugular venous distension. LUNGS: Lungs are clear to auscultation and percussion. Breath sounds decreased. HEART: Rate and Rhythm are regular. First and second heart sounds normal. No murmurs, rubs or gallops. ABDOMEN: Abdominal exam reveals normal bowel sounds. Non-tender and non- distended. No evidence of peritonitis. EXTREMITITES: No clubbing, cyanosis, or edema. Bruising noted. 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 History of Any Multi-Drug Resistant Organisms: None Reported Past Surgical History: Coronary Bypass/CABG, Orthopedic Surgery Additional Past Surgical History / Comment(s): kidney transplant, parathyoid surgery, knee Past Anesthesia/Blood Transfusion Reactions: No Reported Reaction Past Psychological History: Anxiety, Depression Smoking Status: Never smoker Past Alcohol Use History: Rare Past Drug Use History: None Reported - Past Family History Father Family Medical History: Deep Vein Thrombosis (DVT) Son(s) Family Medical History: Cancer Additional Family Medical History / Comment(s): Skin cancer. Medications and Allergies Home Medications Medication Instructions Recorded Confirmed Type Allopurinol [Zyloprim] 100 mg PO DAILY 02/09/17 10/14/19 History Amitriptyline HCl [Elavil] 100 mg PO DAILY 02/09/17 10/14/19 History Calcium Carbonate 1,000 mg PO DAILY 02/09/17 10/14/19 History Chlorthalidone 12.5 mg PO DAILY 02/09/17 10/14/19 History Finasteride [Proscar] 5 mg PO DAILY 02/09/17 10/14/19 History Insulin Glargine [Lantus] 22 unit SQ AC-SUPPER 02/09/17 10/14/19 History Magnesium Oxide [Mag-Ox] 250 mg PO DAILY 02/09/17 10/14/19 History Tamsulosin HCl [Flomax] 0.4 mg PO DAILY 02/09/17 10/14/19 History clonazePAM [KlonoPIN] 1 mg PO BID PRN 02/09/17 10/14/19 History DULoxetine HCL [Cymbalta] 120 mg PO DAILY 04/19/18 10/14/19 History Mycophenolate Mofetil [Cellcept] 1,000 mg PO BID 04/19/18 10/14/19 History INSULIN LISPRO (humaLOG) [humaLOG] See Protocol SQ ACHS 12/31/18 10/14/19 History Multivitamins, Thera [Multivitamin 1 tab PO DAILY 12/31/18 10/14/19 History (formulary)] Amiodarone [Cordarone] 200 mg PO DAILY 01/03/19 10/14/19 History Metoprolol Tartrate [Lopressor] 25 mg PO BID 01/03/19 10/14/19 History Cholecalciferol (Vitamin D3) 6,000 unit PO DAILY 04/28/19 10/14/19 History [Vitamin D3] Rivaroxaban [Xarelto] 15 mg PO HS 04/28/19 10/14/19 History Sirolimus 1 mg PO DAILY 04/28/19 10/14/19 History Visionary Eye Vitamin 1 tab PO HS 04/28/19 10/14/19 History amLODIPine [Norvasc] 2.5 mg PO DAILY 04/28/19 10/14/19 History Atorvastatin Calcium [Lipitor] 20 mg PO HS 10/14/19 10/14/19 History Sirolimus [Rapamune] 0.5 mg PO DAILY 10/14/19 10/14/19 History traZODone HCL 100 mg PO HS 10/14/19 10/14/19 History Allergies Allergy/AdvReac Type Severity Reaction Status Date / Time morphine Allergy Itching Verified 10/14/19 18:18 Physical Exam Vitals: Vital Signs Temp Pulse Pulse Resp BP BP Pulse Ox 10/15/19 05:00 98.1 F 72 18 135/73 97 10/14/19 23:18 97.1 F L 70 18 143/82 96 10/14/19 21:00 97.0 F L 66 18 145/76 92 L 10/14/19 20:49 97.0 F L 66 18 145/76 92 L 10/14/19 20:19 97.8 F 63 18 142/85 95 10/14/19 20:09 98.1 F 62 18 139/75 95 10/14/19 18:14 97.4 F L 68 18 158/80 99 Intake and Output 10/14/19 10/15/19 10/15/19 22:59 06:59 14:59 Intake Total 459 500 Balance 459 500 Intake: Oral 250 500 Blood Product 209 Platelet Irr Pheresis 2 209 Acda Unit [id number] Other: Voiding Method Toilet Urinal # Voids 1 2 Weight 90.718 kg Results - Lab Results Most recent lab results Calcium 8.6 mg/dL (8.4-10.2) 10/15/19 07:50 10/15/19 07:50 10/15/19 07:50 Assessment and Plan Plan: Assessment: 1. Status post donor renal allograft from 05/12/2003 secondary to nephrosclerosis. 2. Chronic kidney disease stage III with baseline creatinine near 1.4. 3. Thrombocytopenia. This could be related to sirolimus as well as mycophenolate. There is also concern for ITP. Hematology is following. Doubt TTP. Patient's haptoglobin is normal and no schistocytes were noted in the differential. 4. Hypertension with chronic kidney disease. Controlled. 5. Insulin-dependent diabetes mellitus. Plan: Discontinue sirolimus and mycophenolate. Maintain steroids. Check sirolimus level. Due to the severe thrombocytopenia, he will be started on Prograf in the next few days after sirolimus level returns and will also need low-dose prednisone upon discharge. Avoid nephrotoxins. Continue to monitor renal function and urine output. Thank you for the consultation. I will continue to follow the patient with you during his hospital stay.
[2019-10-15 11:53] LABS: Glucose,Whole Blood 366 mg/dL (75-99)
--- NOTE | 2019-10-15 15:22 | P.HPIM ---
History of Present Illness H&P Date: 10/15/19 Chief Complaint: Petechiae This is a 78-year-old gentleman with history of atrial fibrillation, diabetes mellitus, hyperlipidemia, hypertension, chronic renal failure, kidney t ransplant, hypothyroidism, parathyroid surgery, melanoma, prostate cancer, CAD, CABG,, anxiety, depression and multiple other medical issues admitted with thrombocytopenia, recent chest cold. Patient reports while in [place] developed an upper respiratory infection with cough and congestion 3 days, and proceeded to urgent care clinic, received prescription for doxycycline which he did complete. While driving back from [place], discovered bruising easy on all extremities with petechiae of bilateral lower extremities, no spontaneous bleeding. Denies hematuria. 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 Xarelto was discontinued by radial drill press set up operator. Once in the ER patient received steroids, with blood sugars uncontrolled, hyperglycemic. Currently denies sore throat, cough or fevers. On admission, afebrile, normal WBC, platelets 2, hemoglobin 10.9 -platelets currently 3, hemoglobin 10.7. Retic count elevated , 4.23. On admission BUN 28, creatinine 1.37, currently down to 33 and 1.21 respectively. Mildly elevated blood sugars on admission, currently in the 300s, steroid-induced. Anticoagulation remains on hold, receiving transfusion of platelets. Review of Systems ROS Statement: Those systems with pertinent positive or pertinent negative responses have been documented in the HPI. ROS Other: All systems not noted in ROS Statement are negative. 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 History of Any Multi-Drug Resistant Organisms: None Reported Past Surgical History: Coronary Bypass/CABG, Orthopedic Surgery Additional Past Surgical History / Comment(s): kidney transplant, parathyoid surgery, knee Past Anesthesia/Blood Transfusion Reactions: No Reported Reaction Past Psychological History: Anxiety, Depression Smoking Status: Never smoker Past Alcohol Use History: Rare Past Drug Use History: None Reported - Past Family History Father Family Medical History: Deep Vein Thrombosis (DVT) Son(s) Family Medical History: Cancer Additional Family Medical History / Comment(s): Skin cancer. Medications and Allergies Home Medications Medication Instructions Recorded Confirmed Type Allopurinol [Zyloprim] 100 mg PO DAILY 02/09/17 10/14/19 History Amitriptyline HCl [Elavil] 100 mg PO DAILY 02/09/17 10/14/19 History Calcium Carbonate 1,000 mg PO DAILY 02/09/17 10/14/19 History Chlorthalidone 12.5 mg PO DAILY 02/09/17 10/14/19 History Finasteride [Proscar] 5 mg PO DAILY 02/09/17 10/14/19 History Insulin Glargine [Lantus] 22 unit SQ AC-SUPPER 02/09/17 10/14/19 History Magnesium Oxide [Mag-Ox] 250 mg PO DAILY 02/09/17 10/14/19 History Tamsulosin HCl [Flomax] 0.4 mg PO DAILY 02/09/17 10/14/19 History clonazePAM [KlonoPIN] 1 mg PO BID PRN 02/09/17 10/14/19 History DULoxetine HCL [Cymbalta] 120 mg PO DAILY 04/19/18 10/14/19 History Mycophenolate Mofetil [Cellcept] 1,000 mg PO BID 04/19/18 10/14/19 History INSULIN LISPRO (humaLOG) [humaLOG] See Protocol SQ ACHS 12/31/18 10/14/19 History Multivitamins, Thera [Multivitamin 1 tab PO DAILY 12/31/18 10/14/19 History (formulary)] Amiodarone [Cordarone] 200 mg PO DAILY 01/03/19 10/14/19 History Metoprolol Tartrate [Lopressor] 25 mg PO BID 01/03/19 10/14/19 History Cholecalciferol (Vitamin D3) 6,000 unit PO DAILY 04/28/19 10/14/19 History [Vitamin D3] Rivaroxaban [Xarelto] 15 mg PO HS 04/28/19 10/14/19 History Sirolimus 1 mg PO DAILY 04/28/19 10/14/19 History Visionary Eye Vitamin 1 tab PO HS 04/28/19 10/14/19 History amLODIPine [Norvasc] 2.5 mg PO DAILY 04/28/19 10/14/19 History Atorvastatin Calcium [Lipitor] 20 mg PO HS 10/14/19 10/14/19 History Sirolimus [Rapamune] 0.5 mg PO DAILY 10/14/19 10/14/19 History traZODone HCL 100 mg PO HS 10/14/19 10/14/19 History Allergies Allergy/AdvReac Type Severity Reaction Status Date / Time morphine Allergy Itching Verified 10/14/19 18:18 Physical Exam Vitals: Vital Signs Temp Pulse Pulse Resp BP BP Pulse Ox 10/15/19 05:00 98.1 F 72 18 135/73 97 10/14/19 23:18 97.1 F L 70 18 143/82 96 10/14/19 21:00 97.0 F L 66 18 145/76 92 L 10/14/19 20:49 97.0 F L 66 18 145/76 92 L 10/14/19 20:19 97.8 F 63 18 142/85 95 10/14/19 20:09 98.1 F 62 18 139/75 95 10/14/19 18:14 97.4 F L 68 18 158/80 99 Intake and Output 10/14/19 10/15/19 10/15/19 22:59 06:59 14:59 Intake Total 459 500 Balance 459 500 Intake: Oral 250 500 Blood Product 209 Platelet Irr Pheresis 2 209 Acda Unit [id number] Other: Voiding Method Toilet Urinal # Voids 1 2 Weight 90.718 kg PHYSICAL EXAM: VITAL SIGNS: As above GENERAL: Sitting up in bed, no acute distress HEENT: Conjunctivae normal. eyes normal. Oral mucosa moist NECK: No JVD. No thyroid enlargement. No LNs CARDIOVASCULAR: S1, S2 regular.. No murmur RESPIRATION: Breath sounds diminished in the bases. No rhonchi or crackles. No bronchial breathing. ABDOMEN: Soft, nontender . No guarding. no masses palpable. No ascites, No hepatosplenomegaly.Bowel sounds heard. LEGS: No edema. no swelling. SKIN: warm, dry. Petechiae bilateral lower extremities. Multiple bruises upper and lower extremities PSYCHIATRY: Alert and oriented X3, mood and affect normal. NERVOUS SYSTEM: Cranial N 2-12 grossly normal. Moves all 4 limbs. No focal deficits. Strength and sensation grossly intact.. Lymphatic system. No LN neck axilla or groin. Results CBC & Chem 7: 10/15/19 07:50 10/15/19 07:50 Labs: Abnormal Lab Results - Last 24 Hours (Table) 10/14/19 10/14/19 10/14/19 Range/Units 18:37 18:37 18:37 RBC 4.15 L (4.30-5.90) m/uL Hgb 10.9 L (13.0-17.5) gm/dL Hct 33.7 L (39.0-53.0) % RDW 17.0 H (11.5-15.5) % Plt Count 2 L* (150-450) k/uL Lymphocytes # 0.7 L (1.0-4.8) k/uL Retic Count (0.10-1.80) % Sodium 136 L (137-145) mmol/L BUN 28 H (9-20) mg/dL Creatinine 1.37 H (0.66-1.25) mg/dL Glucose 125 H (74-99) mg/dL POC Glucose (mg/dL) (75-99) mg/dL Lactate Dehydrogenase 701 H (313-618) U/L 10/14/19 10/14/19 10/15/19 Range/Units 18:37 21:57 06:57 RBC (4.30-5.90) m/uL Hgb (13.0-17.5) gm/dL Hct (39.0-53.0) % RDW (11.5-15.5) % Plt Count (150-450) k/uL Lymphocytes # (1.0-4.8) k/uL Retic Count 4.23 H (0.10-1.80) % Sodium (137-145) mmol/L BUN (9-20) mg/dL Creatinine (0.66-1.25) mg/dL Glucose (74-99) mg/dL POC Glucose (mg/dL) 181 H 375 H (75-99) mg/dL Lactate Dehydrogenase (313-618) U/L 10/15/19 10/15/19 Range/Units 07:50 07:50 RBC 4.06 L (4.30-5.90) m/uL Hgb 10.7 L (13.0-17.5) gm/dL Hct 34.5 L (39.0-53.0) % RDW 17.1 H (11.5-15.5) % Plt Count 3 L* (150-450) k/uL Lymphocytes # (1.0-4.8) k/uL Retic Count (0.10-1.80) % Sodium 136 L (137-145) mmol/L BUN 33 H (9-20) mg/dL Creatinine (0.66-1.25) mg/dL Glucose 368 H (74-99) mg/dL POC Glucose (mg/dL) (75-99) mg/dL Lactate Dehydrogenase (313-618) U/L Thrombosis Risk Factor Assmnt - Choose All That Apply Any of the Below Risk Factors Present?: Yes Each Factor Represents 1 point: Obesity (BMI >25) Each Risk Factor Represents 2 Points: Major surgery Each Risk Factor Represents 3 Points: Age 75 years or older Thrombosis Risk Factor Assessment Total Risk Factor Score: 6 Thrombosis Risk Factor Assessment Level: High Risk Assessment and Plan Assessment: Thrombocytopenia, etiology unclear. Possibly related to patient had been recently on doxycycline, possibly viral in a patient who traveled from [place], possibly secondary to Xarelto, possibly ITP. Recent upper respiratory infection, completed course of doxycycline,COVID-19 pending Chronic atrial fibrillation Diabetes mellitus, hyperglycemic, received steroids in the ER Hypertension Hyperlipidemia Chronic renal failure III with history of renal transplant, baseline creatinine 1.4. CAD, history of CABG Anxiety Depression History of prostate cancer, being followed by urology outpatient. Plan: Continue current medication regime ,monitoring and symptomatic treatment. Maintain gentle IV fluid hydration. Continue holding anticoagulation. Oncology/Hematology/nephrology consults in place, recommendations pending. Covid 19 pending. Avoid nephrotoxins. Prognosis guarded given multiple complex medical issues. The impression and plan of care has been dictated as directed. : I performed a history and examination of this patient, discussed the same with the dictator. I agree with the dictator's note ,documented as a scribe. Any additional findings or plans will be noted.
[2019-10-15 15:58] LABS: Protein, Total 5.9 g/dL (6.2-8.2)
[2019-10-15 17:39] LABS: Glucose,Whole Blood 265 mg/dL (75-99)
--- NOTE | 2019-10-15 17:40 | P.CONS ---
History of Present Illness - Reason for Consult Consult date: 10/15/19 Thrombocytopenia - History of Present Illness The patient is a 78-year-old white male with multiple but overall well- controlled medical problems at baseline. The patient had been spending his winter in [place], when he developed progressively tract symptoms about 2 weeks ago, with chest congestion, cough productive of yellowish sputum, and some shortness of breath. He denied any overt fevers. He was seen at an urgent care, and prescribed doxycycline. His chest symptoms didn't improve partially but he subsequently developed some mild hemoptysis. In addition he also noted development of blood blisters in his mouth, as well as petechia on his face and on his legs. He also had some intermittent episodes ofbleeding. He therefore decided to return to [place] and was seen by his primary care physician. CBC in the PCPs office revealed very low platelet counts due to which the patient was sent in to the ER. CBC here showed a platelet count of 2000. He was therefore admitted for further management. He denied any prior history of low platelets. The patient did have renal transplant in 2002 after end-stage renal disease due to hypertension and diabetes. He is currently on immunosuppression with sirolimus and CellCept, but has not had any dose adjustment in the recent past. Labs from 06/11 had shown essentially normal CBC. During this admission hemoglobin had shown a drop into the 10-11 range but was subsequently stable. Renal function did not show any deterioration while coags were normal. Review of Systems Constitutional: Reports fatigue Eyes: denies blurred vision, denies pain Ears: bilateral: decreased hearing, deny: ear discharge, earache, tinnitus Ears, nose, mouth and throat: Denies headache, Denies sore throat Cardiovascular: Denies chest pain, Denies shortness of breath Respiratory: Reports congestion, Reports cough with sputum, Reports hemoptysis Gastrointestinal: Denies abdominal pain, Denies diarrhea, Denies nausea, Denies vomiting Genitourinary: Reports as per HPI Musculoskeletal: Denies myalgias Integumentary: Reports unusual bruising Neurological: Denies numbness, Denies weakness Psychiatric: Denies anxiety, Denies depression Endocrine: Reports high blood sugars Hematologic/Lymphatic: Reports as per HPI, Reports easy bruising Past Medical History Past Medical History: Atrial Fibrillation, Diabetes Mellitus, Hyperlipidemia, Hypertension, Renal Disease, Thyroid Disorder Additional Past Medical History / Comment(s): Melamoma taken off of ear, "slow growing cancer of prostate, being watched by Dr Dasilva." Hard of hearing. History of Any Multi-Drug Resistant Organisms: None Reported Past Surgical History: Coronary Bypass/CABG, Orthopedic Surgery Additional Past Surgical History / Comment(s): kidney transplant, parathyoid surgery, knee Past Anesthesia/Blood Transfusion Reactions: No Reported Reaction Past Psychological History: Anxiety, Depression Smoking Status: Never smoker Past Alcohol Use History: Rare Past Drug Use History: None Reported - Past Family History Father Family Medical History: Deep Vein Thrombosis (DVT) Son(s) Family Medical History: Cancer Additional Family Medical History / Comment(s): Skin cancer. Medications and Allergies Home Medications Medication Instructions Recorded Confirmed Type Allopurinol [Zyloprim] 100 mg PO DAILY 02/09/17 10/14/19 History Amitriptyline HCl [Elavil] 100 mg PO DAILY 02/09/17 10/14/19 History Calcium Carbonate 1,000 mg PO DAILY 02/09/17 10/14/19 History Chlorthalidone 12.5 mg PO DAILY 02/09/17 10/14/19 History Finasteride [Proscar] 5 mg PO DAILY 02/09/17 10/14/19 History Insulin Glargine [Lantus] 22 unit SQ AC-SUPPER 02/09/17 10/14/19 History Magnesium Oxide [Mag-Ox] 250 mg PO DAILY 02/09/17 10/14/19 History Tamsulosin HCl [Flomax] 0.4 mg PO DAILY 02/09/17 10/14/19 History clonazePAM [KlonoPIN] 1 mg PO BID PRN 02/09/17 10/14/19 History DULoxetine HCL [Cymbalta] 120 mg PO DAILY 04/19/18 10/14/19 History Mycophenolate Mofetil [Cellcept] 1,000 mg PO BID 04/19/18 10/14/19 History INSULIN LISPRO (humaLOG) [humaLOG] See Protocol SQ ACHS 12/31/18 10/14/19 History Multivitamins, Thera [Multivitamin 1 tab PO DAILY 12/31/18 10/14/19 History (formulary)] Amiodarone [Cordarone] 200 mg PO DAILY 01/03/19 10/14/19 History Metoprolol Tartrate [Lopressor] 25 mg PO BID 01/03/19 10/14/19 History Cholecalciferol (Vitamin D3) 6,000 unit PO DAILY 04/28/19 10/14/19 History [Vitamin D3] Rivaroxaban [Xarelto] 15 mg PO HS 04/28/19 10/14/19 History Sirolimus 1 mg PO DAILY 04/28/19 10/14/19 History Visionary Eye Vitamin 1 tab PO HS 04/28/19 10/14/19 History amLODIPine [Norvasc] 2.5 mg PO DAILY 04/28/19 10/14/19 History Atorvastatin Calcium [Lipitor] 20 mg PO HS 10/14/19 10/14/19 History Sirolimus [Rapamune] 0.5 mg PO DAILY 10/14/19 10/14/19 History traZODone HCL 100 mg PO HS 10/14/19 10/14/19 History Allergies Allergy/AdvReac Type Severity Reaction Status Date / Time morphine Allergy Itching Verified 10/14/19 18:18 Physical Exam Vitals: Vital Signs Temp Pulse Pulse Resp BP BP Pulse Ox 10/15/19 16:00 65 16 10/15/19 15:29 97.9 F 73 16 133/60 10/15/19 14:23 97.5 F L 61 16 139/69 97 10/15/19 13:53 97.8 F 64 16 129/70 10/15/19 13:43 97.7 F 64 16 131/71 10/15/19 12:10 97.2 F L 65 18 158/86 98 10/15/19 05:00 98.1 F 72 18 135/73 97 10/14/19 23:18 97.1 F L 70 18 143/82 96 10/14/19 21:00 97.0 F L 66 18 145/76 92 L 10/14/19 20:49 97.0 F L 66 18 145/76 92 L 10/14/19 20:19 97.8 F 63 18 142/85 95 10/14/19 20:09 98.1 F 62 18 139/75 95 10/14/19 18:14 97.4 F L 68 18 158/80 99 Intake and Output 10/15/19 10/15/19 10/15/19 06:59 14:59 22:59 Intake Total 500 540 303 Balance 500 540 303 Intake: Oral 500 540 Blood Product 0 303 Platelet Irr Pheresis 2 0 303 Acda Unit [id number] Other: Voiding Method Toilet Toilet Urinal Urinal # Voids 2 2 2 # Bowel Movements 1 - Constitutional General appearance: no acute distress - EENT Eyes: EOMI, PERRLA ENT: hearing grossly normal, other (PET/CT and blood blisters on oral mucosa especially soft palate) - Neck Neck: no lymphadenopathy Thyroid: bilateral: normal size - Cardiovascular Rhythm: irregularly irregular Heart sounds: normal: S1, S2 - Gastrointestinal General gastrointestinal: normal bowel sounds, soft - Integumentary Petechial rash around mouth. Also petechial rash on lower extremity is below the knee. Scattered extensive bruising on both upper extremities. - Neurologic Neurologic: CNII-XII intact - Musculoskeletal Musculoskeletal: generalized weakness, strength equal bilaterally - Psychiatric Psychiatric: A&O x's 3, appropriate affect Results CBC & Chem 7: 10/15/19 07:50 10/15/19 07:50 Labs: Abnormal Lab Results - Last 24 Hours (Table) 10/14/19 10/14/19 10/14/19 Range/Units 18:37 18:37 18:37 RBC 4.15 L (4.30-5.90) m/uL Hgb 10.9 L (13.0-17.5) gm/dL Hct 33.7 L (39.0-53.0) % RDW 17.0 H (11.5-15.5) % Plt Count 2 L* (150-450) k/uL Lymphocytes # 0.7 L (1.0-4.8) k/uL Retic Count (0.10-1.80) % Sodium 136 L (137-145) mmol/L BUN 28 H (9-20) mg/dL Creatinine 1.37 H (0.66-1.25) mg/dL Glucose 125 H (74-99) mg/dL POC Glucose (mg/dL) (75-99) mg/dL Lactate Dehydrogenase 701 H (313-618) U/L Total Protein (PEP) (6.2-8.2) g/dL Vitamin B12 (200.0-944.0) pg/mL 10/14/19 10/14/19 10/15/19 Range/Units 18:37 21:57 06:57 RBC (4.30-5.90) m/uL Hgb (13.0-17.5) gm/dL Hct (39.0-53.0) % RDW (11.5-15.5) % Plt Count (150-450) k/uL Lymphocytes # (1.0-4.8) k/uL Retic Count 4.23 H (0.10-1.80) % Sodium (137-145) mmol/L BUN (9-20) mg/dL Creatinine (0.66-1.25) mg/dL Glucose (74-99) mg/dL POC Glucose (mg/dL) 181 H 375 H (75-99) mg/dL Lactate Dehydrogenase (313-618) U/L Total Protein (PEP) (6.2-8.2) g/dL Vitamin B12 (200.0-944.0) pg/mL 10/15/19 10/15/19 10/15/19 Range/Units 07:50 07:50 07:50 RBC 4.06 L (4.30-5.90) m/uL Hgb 10.7 L (13.0-17.5) gm/dL Hct 34.5 L (39.0-53.0) % RDW 17.1 H (11.5-15.5) % Plt Count 3 L* (150-450) k/uL Lymphocytes # (1.0-4.8) k/uL Retic Count (0.10-1.80) % Sodium 136 L (137-145) mmol/L BUN 33 H (9-20) mg/dL Creatinine (0.66-1.25) mg/dL Glucose 368 H (74-99) mg/dL POC Glucose (mg/dL) (75-99) mg/dL Lactate Dehydrogenase (313-618) U/L Total Protein (PEP) (6.2-8.2) g/dL Vitamin B12 1071.0 H (200.0-944.0) pg/mL 10/15/19 10/15/19 Range/Units 07:50 11:43 RBC (4.30-5.90) m/uL Hgb (13.0-17.5) gm/dL Hct (39.0-53.0) % RDW (11.5-15.5) % Plt Count (150-450) k/uL Lymphocytes # (1.0-4.8) k/uL Retic Count (0.10-1.80) % Sodium (137-145) mmol/L BUN (9-20) mg/dL Creatinine (0.66-1.25) mg/dL Glucose (74-99) mg/dL POC Glucose (mg/dL) 366 H (75-99) mg/dL Lactate Dehydrogenase (313-618) U/L Total Protein (PEP) 5.9 L (6.2-8.2) g/dL Vitamin B12 (200.0-944.0) pg/mL Chest x-ray: report reviewed Assessment and Plan (1) Thrombocytopenia Narrative/Plan: The patient is presenting with a new onset severe pancytopenia. He has associated symptoms of bruising, petechia, as well as epistaxis and hemoptysis. Hemoglobin has dropped from baseline but since stabilize, likely due to bleeding related to low platelets. WBC is normal. Renal function as well as coags do not show any significant deterioration. 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 Given the patient's history, this may have been set off by his recent upper respiratory tract infection. He was placed on doxycycline, but that is typically not associated with immune mediated, cytopenia. His immunosuppressive medications can also cause low platelets, but he has been on the same dose long-term without adjustment. - The patient seemed 1 dose of IV steroids in the ER. He will be placed on [id number] IV steroid dosing. Given his current platelet count and symptoms, he will receive additional platelet transfusion. Depending on his response IVIG will also be considered, though that would be difficult given the current national shortage. - The patient was previously on xarelto for his A. fib. This will be held. His last dose of more than 24 hours ago. Orders were also placed to avoid any aspirin or NSAIDs. - Continue to monitor closely with additional supportive care as needed - Case was also discussed with nephrology. While his immunosuppressive regimen is unlikely to be the cause of his pancytopenia, it may inhibit platelet response. Therefore nephrology will hold immunosuppression at this time. The patient will be on high-dose steroids anyway. Labs for other causes of thrombocytopenia will also be ordered Current Visit: Yes Status: Acute Code(s): D69.6 - THROMBOCYTOPENIA, UNSPECIFIED SNOMED Code(s): 484738412 Plan: Defer to the admitting service and other consultants for management of his other medical problems. Case discussed with nephrology regarding holding immunosuppressive medications as discussed above. They will be placed on consult.
[2019-10-15] MEDS ORDERED: DIPHENOX-ATROP 2.5-0.025 MG 1 EACH TAB PO PRN (18:36)
[2019-10-15 21:03] LABS: Glucose,Whole Blood 244 mg/dL (75-99)
[2019-10-15] MEDS: INSULIN DETEMIR (LEVEMIR) 100 UNIT/ML SYR SQ SCH (21:15)
[2019-10-15] MEDS: traZODone HCL 100 MG TAB PO SCH (21:15)
[2019-10-15] MEDS: ATORVASTATIN 20 MG TAB PO SCH (21:15)
[2019-10-15] MEDS: VIT A,C & E-LUTEIN-MINERALS 1 EACH TAB PO SCH (21:16)
[2019-10-15] MEDS: SODIUM CHLORIDE 0.9% 1,000 ML IV SCH (21:25)
[2019-10-16 06:25] LABS: Anisocytosis Slight; Basophils % (A) 0 %; Eosinophils % (A) 0 %; HCT 29.8 % (39.0-53.0); HGB 9.8 gm/dL (13.0-17.5); Hypochromasia Moderate; Lymphocytes # (A) 0.4 k/uL (1.0-4.8); Lymphocytes % (A) 7 %; MCH 27.4 pg (25.0-35.0); MCHC 32.8 g/dL (31.0-37.0); MCV 83.8 fL (80.0-100.0); Mean Platelet Volume 8.5; Monocytes # (A) 0.2 k/uL (0-1.0); Monocytes % (A) 2 %; Neutrophils # (A) 5.9 k/uL (1.3-7.7); Neutrophils % (A) 90 %; Poikilocytosis Slight; RBC 3.56 m/uL (4.30-5.90); RDW 17.8 % (11.5-15.5); WBC 6.5 k/uL (3.8-10.6)
[2019-10-16 06:26] LABS: Platelet Count 12 k/uL (150-450)
[2019-10-16 06:48] LABS: Calcium 8.6 mg/dL (8.4-10.2); Potassium 4.2 mmol/L (3.5-5.1)
[2019-10-16 06:56] LABS: Glucose,Whole Blood 298 mg/dL (75-99)
[2019-10-16] MEDS: methylPREDNISolone SOD SUCCI 125 MG/2 ML VIAL IV SCH ×4 (07:03→23:37)
[2019-10-16] MEDS: INSULIN ASPART (NovoLOG) 100 UNIT/ML VIAL SQ SCH ×7 (07:03→21:37)
[2019-10-16] MEDS: CHLORTHALIDONE 25 MG TAB PO SCH (08:32)
[2019-10-16] MEDS: CALCIUM CARBONATE 500 MG CHEWABLE PO SCH (08:32)
[2019-10-16] MEDS: TAMSULOSIN 0.4 MG CAP.ER.24H PO SCH (08:33)
[2019-10-16] MEDS: DULoxetine HCL 60 MG CAPSULE.DR PO SCH (08:33)
[2019-10-16] MEDS: METOPROLOL TARTRATE 25 MG TAB PO SCH ×2 (08:33→21:36)
[2019-10-16] MEDS: AMITRIPTYLINE HCL 50 MG TAB PO SCH (08:33)
[2019-10-16] MEDS: AMIODARONE 200 MG TAB PO SCH (08:33)
[2019-10-16] MEDS: amLODIPine 2.5 MG TAB PO SCH (08:34)
[2019-10-16] MEDS: FINASTERIDE 5 MG TAB PO SCH (08:34)
[2019-10-16] MEDS: PANTOPRAZOLE 40 MG TABLET PO SCH ×2 (08:34→09:00)
--- NOTE | 2019-10-16 10:14 | P.PN ---
Subjective Patient is seen in follow-up for renal transplant management and chronic kidney disease. Allograft function is stable. Platelet count is up to 12,000. No active bleeding. Vital signs are stable. General: The patient appeared well nourished and normally developed. HEENT: Head exam is unremarkable. Neck is without jugular venous distension. LUNGS: Lungs are clear to auscultation and percussion. Breath sounds decreased. HEART: Rate and Rhythm are regular. First and second heart sounds normal. No murmurs, rubs or gallops. ABDOMEN: Abdominal exam reveals normal bowel sounds. Non-tender and non- distended. No evidence of peritonitis. EXTREMITITES: No clubbing, cyanosis, or edema. Objective - Vital Signs Vital signs: Vital Signs Temp 97.7 F 10/16/19 08:00 Pulse 60 10/16/19 08:00 Resp 20 10/16/19 08:00 BP 119/63 10/16/19 08:00 Pulse Ox 95 10/16/19 08:00 Intake & Output 10/15/19 10/16/19 10/16/19 18:59 06:59 18:59 Intake Total 1083 Output Total 1200 Balance 1083 -1200 Intake: Oral 780 Blood Product 303 Platelet Irr Pheresis 2 303 Acda Unit [id number] Output: Urine 1200 Other: Voiding Method Toilet Toilet Urinal Urinal # Voids 2 # Bowel Movements 1 - Labs CBC & Chem 7: 10/16/19 06:04 10/16/19 06:04 Labs: Abnormal Lab Results - Last 24 Hours (Table) 10/15/19 10/15/19 10/15/19 Range/Units 07:50 07:50 11:43 RBC (4.30-5.90) m/uL Hgb (13.0-17.5) gm/dL Hct (39.0-53.0) % RDW (11.5-15.5) % Plt Count (150-450) k/uL Lymphocytes # (1.0-4.8) k/uL Sodium (137-145) mmol/L BUN (9-20) mg/dL Creatinine (0.66-1.25) mg/dL Glucose (74-99) mg/dL POC Glucose (mg/dL) 366 H (75-99) mg/dL Total Protein (PEP) 5.9 L (6.2-8.2) g/dL Vitamin B12 1071.0 H (200.0-944.0) pg/mL 10/15/19 10/15/19 10/16/19 Range/Units 17:37 21:01 06:04 RBC 3.56 L (4.30-5.90) m/uL Hgb 9.8 L (13.0-17.5) gm/dL Hct 29.8 L (39.0-53.0) % RDW 17.8 H (11.5-15.5) % Plt Count 12 L* D (150-450) k/uL Lymphocytes # 0.4 L (1.0-4.8) k/uL Sodium (137-145) mmol/L BUN (9-20) mg/dL Creatinine (0.66-1.25) mg/dL Glucose (74-99) mg/dL POC Glucose (mg/dL) 265 H 244 H (75-99) mg/dL Total Protein (PEP) (6.2-8.2) g/dL Vitamin B12 (200.0-944.0) pg/mL 10/16/19 10/16/19 Range/Units 06:04 06:55 RBC (4.30-5.90) m/uL Hgb (13.0-17.5) gm/dL Hct (39.0-53.0) % RDW (11.5-15.5) % Plt Count (150-450) k/uL Lymphocytes # (1.0-4.8) k/uL Sodium 135 L (137-145) mmol/L BUN 36 H (9-20) mg/dL Creatinine 1.26 H (0.66-1.25) mg/dL Glucose 264 H (74-99) mg/dL POC Glucose (mg/dL) 298 H (75-99) mg/dL Total Protein (PEP) (6.2-8.2) g/dL Vitamin B12 (200.0-944.0) pg/mL Microbiology - Last 24 Hours (Table) 10/15/19 14:37 Gram Stain - Preliminary Sputum Sputum Culture - Preliminary Assessment and Plan Plan: Assessment: 1. 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 2. Chronic kidney disease stage III with baseline creatinine near 1.4. GFR at baseline. 3. Thrombocytopenia. This could be related to sirolimus as well as mycophenolate. There is also concern for ITP. Hematology is following. Doubt TTP. Patient's haptoglobin is normal and no schistocytes were noted in the differential. 4. Hypertension with chronic kidney disease. Controlled. 5. Insulin-dependent diabetes mellitus. Plan: Discontinued sirolimus and mycophenolate. Maintain steroids. Follow-up sirolimus level. Due to the severe thrombocytopenia, he will be started on Prograf in the next few days after sirolimus level returns and will also need prednisone upon discharge. Avoid nephrotoxins. Continue to monitor renal function and urine output.
[2019-10-16 11:19] LABS: Albumin 3.2 g/dL (3.5-5.0); Bilirubin, Delta 0.1 mg/dL (0.0-0.2); Bilirubin,Unconjugated 0.5 mg/dL (0.0-1.1); Total Bilirubin 0.6 mg/dL (0.2-1.3); Total Protein 5.5 g/dL (6.3-8.2)
--- NOTE | 2019-10-16 11:54 | P.PN ---
Subjective Progress Note Date: 10/16/19 Principal diagnosis: Thrombocytopenia Platelets have increased today on steroids, will continue to monitor but appears to be responding. nos/s bleeding Objective - Vital Signs Vital signs: Vital Signs Temp 97.7 F 10/16/19 08:00 Pulse 60 10/16/19 08:00 Resp 20 10/16/19 08:00 BP 119/63 10/16/19 08:00 Pulse Ox 95 10/16/19 08:00 Intake & Output 10/15/19 10/16/19 10/16/19 18:59 06:59 18:59 Intake Total 1083 Output Total 1200 Balance 1083 -1200 Intake: Oral 780 Blood Product 303 Platelet Irr Pheresis 2 303 Acda Unit [id number] Output: Urine 1200 Other: Voiding Method Toilet Toilet Urinal Urinal # Voids 2 # Bowel Movements 1 - Exam - Constitutional General appearance: no acute distress - EENT Eyes: EOMI, PERRLA ENT: hearing grossly normal, other (PET/CT and blood blisters on oral mucosa especially soft palate) - Neck Neck: no lymphadenopathy Thyroid: bilateral: normal size - Cardiovascular Rhythm: irregularly irregular Heart sounds: normal: S1, S2 - Gastrointestinal General gastrointestinal: normal bowel sounds, soft - Integumentary Petechial rash around mouth. Also petechial rash on lower extremity is below the knee. Scattered extensive bruising on both upper extremities. - Neurologic Neurologic: CNII-XII intact - Musculoskeletal Musculoskeletal: generalized weakness, strength equal bilaterally - Psychiatric Psychiatric: A&O x's 3, appropriate affect - Labs CBC & Chem 7: 10/16/19 06:04 10/16/19 06:04 Labs: Abnormal Lab Results - Last 24 Hours (Table) 10/15/19 10/15/19 10/15/19 Range/Units 07:50 07:50 07:50 RBC (4.30-5.90) m/uL Hgb (13.0-17.5) gm/dL Hct (39.0-53.0) % RDW (11.5-15.5) % Plt Count (150-450) k/uL Lymphocytes # (1.0-4.8) k/uL Sodium (137-145) mmol/L BUN (9-20) mg/dL Creatinine (0.66-1.25) mg/dL Glucose (74-99) mg/dL POC Glucose (mg/dL) (75-99) mg/dL Total Protein (PEP) 5.9 L (6.2-8.2) g/dL Vitamin B12 1071.0 H (200.0-944.0) pg/mL RBC Folate 1,050 H (280 - 791) ng/mL 10/15/19 10/15/19 10/15/19 Range/Units 11:43 17:37 21:01 RBC (4.30-5.90) m/uL Hgb (13.0-17.5) gm/dL Hct (39.0-53.0) % RDW (11.5-15.5) % Plt Count (150-450) k/uL Lymphocytes # (1.0-4.8) k/uL Sodium (137-145) mmol/L BUN (9-20) mg/dL Creatinine (0.66-1.25) mg/dL Glucose (74-99) mg/dL POC Glucose (mg/dL) 366 H 265 H 244 H (75-99) mg/dL Total Protein (PEP) (6.2-8.2) g/dL Vitamin B12 (200.0-944.0) pg/mL RBC Folate (280 - 791) ng/mL 10/16/19 10/16/19 10/16/19 Range/Units 06:04 06:04 06:55 RBC 3.56 L (4.30-5.90) m/uL Hgb 9.8 L (13.0-17.5) gm/dL Hct 29.8 L (39.0-53.0) % RDW 17.8 H (11.5-15.5) % Plt Count 12 L* D (150-450) k/uL Lymphocytes # 0.4 L (1.0-4.8) k/uL Sodium 135 L (137-145) mmol/L BUN 36 H (9-20) mg/dL Creatinine 1.26 H (0.66-1.25) mg/dL Glucose 264 H (74-99) mg/dL POC Glucose (mg/dL) 298 H (75-99) mg/dL Total Protein (PEP) (6.2-8.2) g/dL Vitamin B12 (200.0-944.0) pg/mL RBC Folate (280 - 791) ng/mL Microbiology - Last 24 Hours (Table) 10/15/19 14:37 Gram Stain - Preliminary Sputum Sputum Culture - Preliminary Assessment and Plan Plan: Chest x-ray: report reviewed Assessment and Plan Thrombocytopenia: - Platelets 12K today improved from yesterday - The patient is presenting with a new onset severe pancytopenia. - He has associated symptoms of bruising, petechia, as well as epistaxis and hemoptysis. - Hemoglobin has dropped from baseline but since stabilize, likely due to bleeding related to low platelets. - WBC is normal. Renal function as well as coags do not show any significant deterioration. - He has been on imunosuppressive medications, this can also cause low platelets, but he has been on the same dose long-term without adjustment. 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 Given the patient's history, this may have been set off by his recent upper respiratory tract infection. He was placed on doxycycline, but that is typically not associated with immune mediated, cytopenia. - The patient seemed 1 dose of IV steroids in the ER. He will be placed on [id number]-[id number] IV steroid dosing, PPI Given his current platelet count and symptoms, he will receive additional platelet transfusion. Depending on his response IVIG will also be considered, though that would be difficult given the current national shortage. Normocytic Anemia: - With recent Xarelto and evidence of Petechaei, hemoptysis and epistaxis - Iron studies and check liver function this admission Atrial Fibrillation - The patient was previously on xarelto for his A. fib. - Continue to Hold until Platelets are greater than - His last dose of more than 48 hours ago. - Orders were also placed to avoid any aspirin or NSAIDs. - Continue to monitor closely with additional supportive care as needed - Case was also discussed with nephrology. While his immunosuppressive regimen is unlikely to be the cause of his pancytopenia, it may inhibit platelet response. Therefore nephrology will hold immunosuppression at this time. The patient will be on high-dose steroids anyway. Plan: Defer to the admitting service and other consultants for management of his other medical problems. Continue monitor CBC daily and Continue steroids and PPI Case discussed with nephrology regarding holding immunosuppressive medications as discussed above.
[2019-10-16 12:00] LABS: Glucose,Whole Blood 296 mg/dL (75-99)
--- NOTE | 2019-10-16 12:40 | P.PN ---
Subjective Progress Note Date: 10/16/19 This is a 78-year-old gentleman with history of atrial fibrillation, diabetes mellitus, hyperlipidemia, hypertension, chronic renal failure, kidney transplant, hypothyroidism, parathyroid surgery, melanoma, prostate cancer, CAD, CABG,, anxiety, depression and multiple other medical issues admitted with thr ombocytopenia, recent chest cold. Patient reports while in [place] developed an upper respiratory infection with cough and congestion 3 days, and proceeded to urgent care clinic, received prescription for doxycycline which he did complete. While driving back from [place], discovered bruising easy on all extremities with petechiae of bilateral lower extremities, no spontaneous bleeding. Denies hematuria. 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 Xarelto was discontinued by sailing instructor. Once in the ER patient received steroids, with blood sugars uncontrolled, hyperglycemic. Currently denies sore throat, cough or fevers. On admission, afebrile, normal WBC, platelets 2, hemoglobin 10.9 - platelets currently 3, hemoglobin 10.7. Retic count elevated , 4.23. On admission BUN 28, creatinine 1.37, currently down to 33 and 1.21 respectively. Mildly elevated blood sugars on admission, currently in the 300s, steroid- induced. Anticoagulation remains on hold, receiving transfusion of platelets. 10/16/2019 Xarelto as well as immunosuppressants remains on hold, received platelet transfusion yesterday, platelets up to 12. No active bleeding. Evaluated by oncology/hematology, recommendations noted including IV steroids initiated. Blood sugars elevated, high 200s. Petechiae and bruising improved, denies cough, congestion. Afebrile. Normal WBC. COVID-19 pending. Creatinine 1.26. Objective - Vital Signs Vital signs: Vital Signs Temp 97.7 F 10/16/19 08:00 Pulse 60 10/16/19 08:00 Resp 20 10/16/19 08:00 BP 119/63 10/16/19 08:00 Pulse Ox 95 10/16/19 08:00 Intake & Output 10/15/19 10/16/19 10/16/19 18:59 06:59 18:59 Intake Total 1083 Output Total 1200 Balance 1083 -1200 Intake: Oral 780 Blood Product 303 Platelet Irr Pheresis 2 303 Acda Unit [id number] Output: Urine 1200 Other: Voiding Method Toilet Toilet Urinal Urinal # Voids 2 # Bowel Movements 1 - Exam VITAL SIGNS: As above GENERAL: Sitting up in bed, no acute distress HEENT: Conjunctivae normal. eyes normal. Oral mucosa moist with improving petechiae NECK: No JVD. No thyroid enlargement. No LNs CARDIOVASCULAR: S1, S2 regular.. No murmur RESPIRATION: Breath sounds diminished in the bases. No rhonchi or crackles. No bronchial breathing. ABDOMEN: Soft, nontender . No guarding. no masses palpable. No ascites, No hepatosplenomegaly.Bowel sounds heard. LEGS: No edema. no swelling. SKIN: warm, dry. Improving Petechiae bilateral lower extremities. Multiple bruises upper and lower extremities. PSYCHIATRY: Alert and oriented X3, mood and affect normal. NERVOUS SYSTEM: Cranial N 2-12 grossly normal. Moves all 4 limbs. No focal deficits. Strength and sensation grossly intact.. Lymphatic system. No LN neck axilla or groin. - Labs CBC & Chem 7: 10/16/19 06:04 10/16/19 06:04 Labs: Abnormal Lab Results - Last 24 Hours (Table) 10/15/19 10/15/19 10/15/19 Range/Units 07:50 07:50 07:50 RBC (4.30-5.90) m/uL Hgb (13.0-17.5) gm/dL Hct (39.0-53.0) % RDW (11.5-15.5) % Plt Count (150-450) k/uL Lymphocytes # (1.0-4.8) k/uL Sodium (137-145) mmol/L BUN (9-20) mg/dL Creatinine (0.66-1.25) mg/dL Glucose (74-99) mg/dL POC Glucose (mg/dL) (75-99) mg/dL Total Protein (PEP) 5.9 L (6.2-8.2) g/dL Vitamin B12 1071.0 H (200.0-944.0) pg/mL RBC Folate 1,050 H (280 - 791) ng/mL 10/15/19 10/15/19 10/15/19 Range/Units 11:43 17:37 21:01 RBC (4.30-5.90) m/uL Hgb (13.0-17.5) gm/dL Hct (39.0-53.0) % RDW (11.5-15.5) % Plt Count (150-450) k/uL Lymphocytes # (1.0-4.8) k/uL Sodium (137-145) mmol/L BUN (9-20) mg/dL Creatinine (0.66-1.25) mg/dL Glucose (74-99) mg/dL POC Glucose (mg/dL) 366 H 265 H 244 H (75-99) mg/dL Total Protein (PEP) (6.2-8.2) g/dL Vitamin B12 (200.0-944.0) pg/mL RBC Folate (280 - 791) ng/mL 10/16/19 10/16/19 10/16/19 Range/Units 06:04 06:04 06:55 RBC 3.56 L (4.30-5.90) m/uL Hgb 9.8 L (13.0-17.5) gm/dL Hct 29.8 L (39.0-53.0) % RDW 17.8 H (11.5-15.5) % Plt Count 12 L* D (150-450) k/uL Lymphocytes # 0.4 L (1.0-4.8) k/uL Sodium 135 L (137-145) mmol/L BUN 36 H (9-20) mg/dL Creatinine 1.26 H (0.66-1.25) mg/dL Glucose 264 H (74-99) mg/dL POC Glucose (mg/dL) 298 H (75-99) mg/dL Total Protein (PEP) (6.2-8.2) g/dL Vitamin B12 (200.0-944.0) pg/mL RBC Folate (280 - 791) ng/mL Microbiology - Last 24 Hours (Table) 10/15/19 14:37 Gram Stain - Preliminary Sputum Sputum Culture - Preliminary Assessment and Plan Assessment: New-onset Thrombocytopenia, etiology unclear. Possibly related to patient had been recently on doxycycline, possibly viral in a patient who traveled from [place], possibly secondary to Xarelto, possibly ITP. Recent upper respiratory infection, completed course of doxycycline,COVID-19 pe nding Chronic atrial fibrillation Diabetes mellitus, hyperglycemic, received steroids in the ER Hypertension Hyperlipidemia Chronic renal failure III with history of renal transplant, baseline creatinine 1.4. CAD, history of CABG Anxiety Depression History of prostate cancer, being followed by urology outpatient. Plan: Continue current medication regime ,monitoring and symptomatic treatment. Thrombocytopenic workup in progress .Anticoagulation, NSAIDs, immunosuppressants remain on hold. Covid 19 pending. Avoid nephrotoxins. Close monitoring of coags, renal function with repeat labs ordered for a.m. follow closely with oncology/hematology and nephrology. Prognosis guarded given multiple complex medical issues. The impression and plan of care has been dictated as directed. : I performed a history and examination of this patient, discussed the same with the dictator. I agree with the dictator's note ,documented as a scribe. Any additional findings or plans will be noted.
[2019-10-16 14:30] LABS: Free Kappa Lt Chain Qnt, Serum 2.16 mg/dL (0.33-1.94)
[2019-10-16 15:28] LABS: Reticulocyte % 5.08 % (0.10-1.80)
[2019-10-16 15:55] LABS: % Iron Saturation 22.4 (15.00-50.00)
[2019-10-16 16:19] LABS: Folate, Serum 14.6 ng/mL
[2019-10-16 16:34] LABS: Albumin 3.53 g/dL (3.80-4.90); Gamma Globulin 0.64 g/dL (0.70-1.50)
[2019-10-16 17:05] LABS: Glucose,Whole Blood 333 mg/dL (75-99)
[2019-10-16] MEDS: INSULIN DETEMIR (LEVEMIR) 100 UNIT/ML SYR SQ SCH (17:11)
[2019-10-16] MEDS ORDERED: clonazePAM 1 MG TAB PO PRN (19:17)
[2019-10-16 21:10] LABS: Glucose,Whole Blood 329 mg/dL (75-99)
[2019-10-16] MEDS: traZODone HCL 100 MG TAB PO SCH (21:36)
[2019-10-16] MEDS: VIT A,C & E-LUTEIN-MINERALS 1 EACH TAB PO SCH (21:36)
[2019-10-16] MEDS: ATORVASTATIN 20 MG TAB PO SCH (21:37)
[2019-10-16] MEDS: SODIUM CHLORIDE 0.9% 1,000 ML IV SCH (21:42)
[2019-10-17 06:50] LABS: Glucose,Whole Blood 257 mg/dL (75-99)
[2019-10-17 06:51] LABS: Calcium 8.3 mg/dL (8.4-10.2); Potassium 3.5 mmol/L (3.5-5.1)
[2019-10-17] MEDS: methylPREDNISolone SOD SUCCI 125 MG/2 ML VIAL IV SCH ×3 (06:54→18:46)
[2019-10-17] MEDS: INSULIN ASPART (NovoLOG) 100 UNIT/ML VIAL SQ SCH ×7 (06:54→20:58)
[2019-10-17 06:58] LABS: Anisocytosis Slight; Basophils % (A) 0 %; Eosinophils % (A) 0 %; HCT 29.4 % (39.0-53.0); HGB 9.5 gm/dL (13.0-17.5); Hypochromasia Slight; Lymphocytes # (A) 0.5 k/uL (1.0-4.8); Lymphocytes % (A) 6 %; MCH 26.5 pg (25.0-35.0); MCHC 32.2 g/dL (31.0-37.0); MCV 82.3 fL (80.0-100.0); Mean Platelet Volume 8.1; Monocytes # (A) 0.2 k/uL (0-1.0); Monocytes % (A) 3 %; Neutrophils # (A) 6.7 k/uL (1.3-7.7); Neutrophils % (A) 90 %; Poikilocytosis Slight; RBC 3.58 m/uL (4.30-5.90); RDW 17.7 % (11.5-15.5); WBC 7.4 k/uL (3.8-10.6)
[2019-10-17 07:14] LABS: Platelet Count 18 k/uL (150-450)
[2019-10-17] MEDS: PANTOPRAZOLE 40 MG TABLET PO SCH (09:15)
[2019-10-17] MEDS: FINASTERIDE 5 MG TAB PO SCH (09:15)
[2019-10-17] MEDS: CHLORTHALIDONE 25 MG TAB PO SCH (09:15)
[2019-10-17] MEDS: TAMSULOSIN 0.4 MG CAP.ER.24H PO SCH (09:15)
[2019-10-17] MEDS: CALCIUM CARBONATE 500 MG CHEWABLE PO SCH (09:15)
[2019-10-17] MEDS: METOPROLOL TARTRATE 25 MG TAB PO SCH ×2 (09:15→20:58)
[2019-10-17] MEDS: DULoxetine HCL 60 MG CAPSULE.DR PO SCH (09:15)
[2019-10-17] MEDS: AMITRIPTYLINE HCL 50 MG TAB PO SCH (09:15)
[2019-10-17] MEDS: AMIODARONE 200 MG TAB PO SCH (09:16)
[2019-10-17] MEDS: amLODIPine 2.5 MG TAB PO SCH (09:16)
--- NOTE | 2019-10-17 10:44 | P.PN ---
Subjective Progress Note Date: 10/17/19 Principal diagnosis: Thrombocytopenia Platelets up to 19K today. Objective - Vital Signs Vital signs: Vital Signs Temp 98.3 F 10/17/19 08:00 Pulse 63 10/17/19 08:00 Resp 20 10/17/19 08:00 BP 113/51 10/17/19 08:00 Pulse Ox 95 10/17/19 08:00 Intake & Output 10/16/19 10/17/19 10/17/19 18:59 06:59 18:59 Intake Total 1290 Output Total 300 1650 Balance 990 -1650 Intake: Oral 1290 Output: Urine 300 1650 Other: Voiding Method Toilet Urinal # Voids 1 - Exam - Constitutional General appearance: no acute distress - EENT Eyes: EOMI, PERRLA ENT: hearing grossly normal, other (PET/CT and blood blisters on oral mucosa especially soft palate) - Neck Neck: no lymphadenopathy Thyroid: bilateral: normal size - Cardiovascular Rhythm: irregularly irregular Heart sounds: normal: S1, S2 - Gastrointestinal General gastrointestinal: normal bowel sounds, soft - Integumentary Petechial rash around mouth. Also petechial rash on lower extremity is below the knee. Scattered extensive bruising on both upper extremities. - Neurologic Neurologic: CNII-XII intact - Musculoskeletal Musculoskeletal: generalized weakness, strength equal bilaterally - Psychiatric Psychiatric: A&O x's 3, appropriate affect - Labs CBC & Chem 7: 10/17/19 06:05 10/17/19 06:05 Labs: Abnormal Lab Results - Last 24 Hours (Table) 10/15/19 10/16/19 10/16/19 Range/Units 07:50 06:02 06:02 RBC (4.30-5.90) m/uL Hgb (13.0-17.5) gm/dL Hct (39.0-53.0) % RDW (11.5-15.5) % Plt Count (150-450) k/uL Lymphocytes # (1.0-4.8) k/uL Retic Count 5.08 H (0.10-1.80) % Sodium (137-145) mmol/L BUN (9-20) mg/dL Creatinine (0.66-1.25) mg/dL Glucose (74-99) mg/dL POC Glucose (mg/dL) (75-99) mg/dL Calcium (8.4-10.2) mg/dL Iron 56 L (65-175) ug/dL Total Protein (6.3-8.2) g/dL Albumin (3.5-5.0) g/dL Albumin (PEP) 3.53 L (3.80-4.90) g/dL Tcctq-0-Oigdkpfwc 0.42 H (0.10-0.40) g/dL Gamma Globulins 0.64 L (0.70-1.50) g/dL Free Tuttle LC, Quant 2.16 H (0.33-1.94) mg/dL 10/16/19 10/16/19 10/16/19 Range/Units 06:04 11:55 17:03 RBC (4.30-5.90) m/uL Hgb (13.0-17.5) gm/dL Hct (39.0-53.0) % RDW (11.5-15.5) % Plt Count (150-450) k/uL Lymphocytes # (1.0-4.8) k/uL Retic Count (0.10-1.80) % Sodium 135 L (137-145) mmol/L BUN 36 H (9-20) mg/dL Creatinine 1.26 H (0.66-1.25) mg/dL Glucose 264 H (74-99) mg/dL POC Glucose (mg/dL) 296 H 333 H (75-99) mg/dL Calcium (8.4-10.2) mg/dL Iron (65-175) ug/dL Total Protein 5.5 L (6.3-8.2) g/dL Albumin 3.2 L (3.5-5.0) g/dL Albumin (PEP) (3.80-4.90) g/dL Mqcjz-7-Pxoypqowa (0.10-0.40) g/dL Gamma Globulins (0.70-1.50) g/dL Free Tuttle LC, Quant (0.33-1.94) mg/dL 10/16/19 10/17/19 10/17/19 Range/Units 21:03 06:05 06:05 RBC 3.58 L (4.30-5.90) m/uL Hgb 9.5 L (13.0-17.5) gm/dL Hct 29.4 L (39.0-53.0) % RDW 17.7 H (11.5-15.5) % Plt Count 18 L* (150-450) k/uL Lymphocytes # 0.5 L (1.0-4.8) k/uL Retic Count (0.10-1.80) % Sodium 135 L (137-145) mmol/L BUN 41 H (9-20) mg/dL Creatinine 1.29 H (0.66-1.25) mg/dL Glucose 228 H (74-99) mg/dL POC Glucose (mg/dL) 329 H (75-99) mg/dL Calcium 8.3 L (8.4-10.2) mg/dL Iron (65-175) ug/dL Total Protein (6.3-8.2) g/dL Albumin (3.5-5.0) g/dL Albumin (PEP) (3.80-4.90) g/dL Jnucu-0-Fnsauilwh (0.10-0.40) g/dL Gamma Globulins (0.70-1.50) g/dL Free Tuttle LC, Quant (0.33-1.94) mg/dL 10/17/19 Range/Units 06:50 RBC (4.30-5.90) m/uL Hgb (13.0-17.5) gm/dL Hct (39.0-53.0) % RDW (11.5-15.5) % Plt Count (150-450) k/uL Lymphocytes # (1.0-4.8) k/uL Retic Count (0.10-1.80) % Sodium (137-145) mmol/L BUN (9-20) mg/dL Creatinine (0.66-1.25) mg/dL Glucose (74-99) mg/dL POC Glucose (mg/dL) 257 H (75-99) mg/dL Calcium (8.4-10.2) mg/dL Iron (65-175) ug/dL Total Protein (6.3-8.2) g/dL Albumin (3.5-5.0) g/dL Albumin (PEP) (3.80-4.90) g/dL Azfwz-8-Zhknefymo (0.10-0.40) g/dL Gamma Globulins (0.70-1.50) g/dL Free Tuttle LC, Quant (0.33-1.94) mg/dL Microbiology - Last 24 Hours (Table) 10/15/19 14:37 Gram Stain - Final Sputum Sputum Culture - Final Assessment and Plan Plan: Chest x-ray: report reviewed Assessment and Plan Thrombocytopenia: - Platelets 12K today improved from yesterday - The patient is presenting with a new onset severe pancytopenia. - He has associated symptoms of bruising, petechia, as well as epistaxis and hemoptysis. - Hemoglobin has dropped from baseline but since stabilize, likely due to bleeding related to low platelets. - WBC is normal. Renal function as well as coags do not show any significant deterioration. - He has been on imunosuppressive medications, this can also cause low platelets, but he has been on the same dose long-term without adjustment. 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 Given the patient's history, this may have been set off by his recent upper respiratory tract infection. He was placed on doxycycline, but that is typically not associated with immune mediated, cytopenia. - The patient seemed 1 dose of IV steroids in the ER. He will be placed on rtfasd-bxq-wckzs IV steroid dosing, PPI Given his current platelet count and symptoms, he will receive additional platelet transfusion. Depending on his response IVIG will also be considered, though that would be difficult given the current national shortage. Normocytic Anemia: - With recent Xarelto and evidence of Petechaei, hemoptysis and epistaxis - Iron studies and check liver function this admission Atrial Fibrillation - The patient was previously on xarelto for his A. fib. - Continue to Hold until Platelets are greater than - His last dose of more than 48 hours ago. - Orders were also placed to avoid any aspirin or NSAIDs. - Continue to monitor closely with additional supportive care as needed - Case was also discussed with nephrology. While his immunosuppressive regimen is unlikely to be the cause of his pancytopenia, it may inhibit platelet response. Therefore nephrology will hold immunosuppression at this time. The patient will be on high-dose steroids anyway. Plan: - If plan is to discharge within 24 hours discharge on 80mg PO pred and PPI and follow-up in 5 days for blood draw and dose adjustment of prednisone - If plan is to await results of covid testing I will decrease IV steroids [id number] - Patient aware of plan Physician Attestation: I have performed the full physical examination and reviewed the full history of this patient, as well as pertinent findings. I have created the compled impression and recommendations. I agree with the above dictation by MARTHA Rich. This dictation has been written as a scribe.
[2019-10-17 11:47] LABS: Glucose,Whole Blood 228 mg/dL (75-99)
--- NOTE | 2019-10-17 12:13 | PN ---
PROGRESS NOTE The patient is seen for followup for posttransplant care. He was admitted with severe thrombocytopenia. His CellCept is currently on hold. He is maintained on high-dose steroids. Sirolimus level was 5. The patient can be started on Prograf in the next couple of days. He is maintained on prednisone for now. His renal function is stable. PHYSICAL EXAMINATION: On examination, blood pressure is 150/67, heart rate 85 per minute. Patient is afebrile. EXAMINATION OF THE HEART: S1, S2. EXAMINATION OF THE LUNGS: Bilateral breath sounds are heard. ABDOMEN: Soft, nontender. Examination of lower extremities shows no evidence of edema. CTO exam grossly intact. LABS: Labs show sirolimus 5. PCR for coronavirus is pending. Sodium 135, potassium 3.5, chloride 104, CO2 is 24, BUN 41, creatinine 1.29. ASSESSMENT: 1. 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 Renal function stable. 2. Chronic kidney disease, stage 3, creatinine at baseline or better. 3. Thrombocytopenia, possibly related to immunosuppressive medications versus ITP, being followed by Hematology, maintained on steroids. We will switch the sirolimus to Prograf over the next couple of days. Sirolimus level was 5. 4. Hypertension with chronic kidney disease. 5. Type 2 diabetes, maintained on insulin. PLAN: Start Prograf at the time of discharge. Continue current medications including the steroids as per Hematology. Maintain patient off of CellCept for now. MMODL / IJN: [id number] /
[2019-10-17 16:45] LABS: Glucose,Whole Blood 242 mg/dL (75-99)
[2019-10-17] MEDS ORDERED: Potassium Replacement Protocol 1 EACH MISC MISCELLANE PRN (16:54)
--- NOTE | 2019-10-17 17:02 | P.PN ---
Subjective Progress Note Date: 10/17/19 This is a 78-year-old gentleman with history of atrial fibrillation, diabetes mellitus, hyperlipidemia, hypertension, chronic renal failure, kidney transplant, hypothyroidism, parathyroid surgery, melanoma, prostate cancer, CAD, CABG,, anxiety, depression and multiple other medical issues admitted with thr ombocytopenia, recent chest cold. Patient reports while in [place] developed an upper respiratory infection with cough and congestion 3 days, and proceeded to urgent care clinic, received prescription for doxycycline which he did complete. While driving back from [place], discovered bruising easy on all extremities with petechiae of bilateral lower extremities, no spontaneous bleeding. Denies hematuria. Patient phoned in to his airplane cover maker and PCP. Xarelto was discontinued by airplane cover maker. Once in the ER patient received steroids, with blood sugars uncontrolled, hyperglycemic. Currently denies sore throat, cough or fevers. On admission, afebrile, normal WBC, platelets 2, hemoglobin 10.9 - platelets currently 3, hemoglobin 10.7. Retic count elevated , 4.23. On admission BUN 28, creatinine 1.37, currently down to 33 and 1.21 respectively. Mildly elevated blood sugars on admission, currently in the 300s, steroid- induced. Anticoagulation remains on hold, receiving transfusion of platelets. 10/16/2019 Xarelto as well as immunosuppressants remains on hold, received platelet transfusion yesterday, platelets up to 12. No active bleeding. Evaluated by oncology/hematology, recommendations noted including IV steroids initiated. Blood sugars elevated, high 200s. Petechiae and bruising improved, denies cough, congestion. Afebrile. Normal WBC. COVID-19 pending. Creatinine 1.26. 10/17/2019 anticoagulation and immunosuppressants remain on hold. Maintained on high-dose steroids. Platelets increased to 18, creatinine 1.29. No new bruising noted. Good diet intake, consumed 100% of breakfast with no nausea vomiting or diarrhea.Covid results pending .afebrile, normal WBC. Objective - Vital Signs Vital signs: Vital Signs Temp 98.6 F 10/17/19 16:05 Pulse 63 10/17/19 16:05 Resp 16 10/17/19 16:05 BP 119/66 10/17/19 16:05 Pulse Ox 93 L 10/17/19 16:05 Intake & Output 10/16/19 10/17/19 10/17/19 18:59 06:59 18:59 Intake Total 1290 240 Output Total 300 1650 850 Balance 990 -1650 -610 Intake: Oral 1290 240 Output: Urine 300 1650 850 Other: Voiding Method Toilet Urinal # Voids 1 - Exam VITAL SIGNS: As above GENERAL: Sitting up in bed, no acute distress HEENT: Conjunctivae normal. eyes normal. Oral mucosa moist with improving petechiae NECK: No JVD. No thyroid enlargement. No LNs CARDIOVASCULAR: S1, S2 regular.. No murmur RESPIRATION: Breath sounds diminished in the bases. No rhonchi or crackles. No bronchial breathing. ABDOMEN: Soft, nontender . No guarding. no masses palpable. No ascites, No hepatosplenomegaly.Bowel sounds heard. LEGS: No edema. no swelling. SKIN: warm, dry. no new bruising noted with decreasing Petechiae bilateral lower extremities. PSYCHIATRY: Alert and oriented X3, mood and affect normal. NERVOUS SYSTEM: Cranial N 2-12 grossly normal. Moves all 4 limbs. No focal deficits. Strength and sensation grossly intact.. Lymphatic system. No LN neck axilla or groin. - Labs CBC & Chem 7: 10/17/19 06:05 10/17/19 06:05 Labs: Abnormal Lab Results - Last 24 Hours (Table) 10/16/19 10/16/19 10/17/19 Range/Units 17:03 21:03 06:05 RBC 3.58 L (4.30-5.90) m/uL Hgb 9.5 L (13.0-17.5) gm/dL Hct 29.4 L (39.0-53.0) % RDW 17.7 H (11.5-15.5) % Plt Count 18 L* (150-450) k/uL Lymphocytes # 0.5 L (1.0-4.8) k/uL Sodium (137-145) mmol/L BUN (9-20) mg/dL Creatinine (0.66-1.25) mg/dL Glucose (74-99) mg/dL POC Glucose (mg/dL) 333 H 329 H (75-99) mg/dL Calcium (8.4-10.2) mg/dL 10/17/19 10/17/19 10/17/19 Range/Units 06:05 06:50 11:45 RBC (4.30-5.90) m/uL Hgb (13.0-17.5) gm/dL Hct (39.0-53.0) % RDW (11.5-15.5) % Plt Count (150-450) k/uL Lymphocytes # (1.0-4.8) k/uL Sodium 135 L (137-145) mmol/L BUN 41 H (9-20) mg/dL Creatinine 1.29 H (0.66-1.25) mg/dL Glucose 228 H (74-99) mg/dL POC Glucose (mg/dL) 257 H 228 H (75-99) mg/dL Calcium 8.3 L (8.4-10.2) mg/dL 10/17/19 Range/Units 16:43 RBC (4.30-5.90) m/uL Hgb (13.0-17.5) gm/dL Hct (39.0-53.0) % RDW (11.5-15.5) % Plt Count (150-450) k/uL Lymphocytes # (1.0-4.8) k/uL Sodium (137-145) mmol/L BUN (9-20) mg/dL Creatinine (0.66-1.25) mg/dL Glucose (74-99) mg/dL POC Glucose (mg/dL) 242 H (75-99) mg/dL Calcium (8.4-10.2) mg/dL Microbiology - Last 24 Hours (Table) 10/15/19 14:37 Gram Stain - Final Sputum Sputum Culture - Final Assessment and Plan Assessment: New-onset Thrombocytopenia, etiology unclear. 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 Recent upper respiratory infection, completed course of doxycycline,COVID-19 pending Chronic atrial fibrillation Diabetes mellitus, hyperglycemic, received steroids in the ER Hypertension Hyperlipidemia Chronic renal failure III with history of renal transplant, baseline creatinine 1.4. CAD, history of CABG Anxiety Depression History of prostate cancer, being followed by urology outpatient. Plan: Continue current medication regime ,monitoring and symptomatic treatment. continue holding anticoagulants, immunosuppressants. maintain high-dose steroidswith weaning as per oncology/hematology. Prograf to be initiated as per nephrology soon. Thrombocytopenia workup in progress .Covid 19 pending. Avoid nephrotoxins. Close monitoring of coags, renal function with repeat labs ordered for a.m. discharge planning in progress for a.m.pending clearance from both oncology/hematology and nephrology. Please obtain consults' discharge RXs for Prograf,steroids . The impression and plan of care has been dictated as directed. : I performed a history and examination of this patient, discussed the same with the dictator. I agree with the dictator's note ,documented as a scribe. Any additional findings or plans will be noted.
[2019-10-17] MEDS: INSULIN DETEMIR (LEVEMIR) 100 UNIT/ML SYR SQ SCH (18:46)
[2019-10-17 20:11] LABS: Glucose,Whole Blood 312 mg/dL (75-99)
[2019-10-17 20:51] VITALS: RESP 16
[2019-10-17] MEDS: traZODone HCL 100 MG TAB PO SCH (20:58)
[2019-10-17] MEDS: ATORVASTATIN 20 MG TAB PO SCH (20:58)
[2019-10-17] MEDS: SODIUM CHLORIDE 0.9% 1,000 ML IV SCH (21:52)
[2019-10-17] MEDS: VIT A,C & E-LUTEIN-MINERALS 1 EACH TAB PO SCH (21:52)
[2019-10-18] MEDS: methylPREDNISolone SOD SUCCI 125 MG/2 ML VIAL IV SCH ×2 (00:08→05:56)
[2019-10-18 05:33] VITALS: TEMP 97.7
[2019-10-18 07:11] LABS: Glucose,Whole Blood 289 mg/dL (75-99)
[2019-10-18 07:53] LABS: Calcium 8.1 mg/dL (8.4-10.2); Potassium 3.6 mmol/L (3.5-5.1)
[2019-10-18] MEDS: TAMSULOSIN 0.4 MG CAP.ER.24H PO SCH (08:04)
[2019-10-18] MEDS: METOPROLOL TARTRATE 25 MG TAB PO SCH (08:04)
[2019-10-18] MEDS: FINASTERIDE 5 MG TAB PO SCH (08:04)
[2019-10-18] MEDS: DULoxetine HCL 60 MG CAPSULE.DR PO SCH (08:04)
[2019-10-18] MEDS: AMITRIPTYLINE HCL 50 MG TAB PO SCH (08:04)
[2019-10-18] MEDS: AMIODARONE 200 MG TAB PO SCH (08:04)
[2019-10-18] MEDS: CALCIUM CARBONATE 500 MG CHEWABLE PO SCH (08:04)
[2019-10-18] MEDS: INSULIN ASPART (NovoLOG) 100 UNIT/ML VIAL SQ SCH ×4 (08:05→12:51)
[2019-10-18 08:32] LABS: Anisocytosis Slight; Basophils % (A) 0 %; Eosinophils % (A) 0 %; HGB 10.2 gm/dL (13.0-17.5); Hypochromasia Slight; Lymphocytes # (A) 0.6 k/uL (1.0-4.8); Lymphocytes % (A) 8 %; MCH 26.3 pg (25.0-35.0); MCHC 31.8 g/dL (31.0-37.0); MCV 82.7 fL (80.0-100.0); Mean Platelet Volume 11.7; Monocytes # (A) 0.2 k/uL (0-1.0); Monocytes % (A) 3 %; Neutrophils % (A) 88 %; RBC 3.86 m/uL (4.30-5.90); RDW 17.7 % (11.5-15.5); WBC 7.9 k/uL (3.8-10.6)
[2019-10-18] MEDS: PANTOPRAZOLE 40 MG TABLET PO SCH (08:52)
[2019-10-18] MEDS: CHLORTHALIDONE 25 MG TAB PO SCH (08:52)
[2019-10-18 08:53] LABS: Platelet Count 39 k/uL (150-450)
[2019-10-18] MEDS: amLODIPine 2.5 MG TAB PO SCH (08:53)
[2019-10-18] MEDS ORDERED: predniSONE 20 MG TAB PO SCH (09:00)
--- NOTE | 2019-10-18 10:31 | P.DS ---
Providers Date of admission: 10/14/19 19:51 Expected date of discharge: 10/18/19 Attending physician: Narinder Rosenberg Consults: 10/14/19 18:35 Consult Physician Stat Consulting Provider: Bear Winn Consult Reason/Comments: thrombocytopenia Do you want consulting provider notified?: Yes 10/15/19 09:44 Consult Physician Routine Consulting Provider: Carolina Wolfe Consult Reason/Comments: h/o renal transplant, on immunosuppression Do you want consulting provider notified?: Yes Primary care physician: Narinder Rosenberg Hospital Course: Final Diagnoses: Hospital course:This is a 78-year-old gentleman with history of atrial fibrillation, diabetes mellitus, hyperlipidemia, hypertension, chronic renal failure, kidney transplant, hypothyroidism, parathyroid surgery, melanoma, pros patel cancer, CAD, CABG,, anxiety, depression and multiple other medical issues admitted with thrombocytopenia, recent chest cold. Patient reports while in [place] developed an upper respiratory infection with cough and congestion 3 days, and proceeded to urgent care clinic, received prescription for doxycycline which he did complete. While driving back from [place], discovered bruising easy on all extremities with petechiae of bilateral lower extremities, no spontaneous bleeding. Denies hematuria. Patient phoned in to his social work professor and PCP. Xarelto was discontinued by social work professor. Once in the ER patient received steroids, with blood sugars uncontrolled, hyperglycemic. Currently denies sore throat, cough or fevers. On admission, afebrile, normal WBC, platelets 2, hemoglobin 10.9 -platelets currently 3, hemoglobin 10.7. Retic count elevated , 4.23. On admission BUN 28, creatinine 1.37, currently down to 33 and 1.21 respectively. Mildly elevated blood sugars on admission, currently in the 300s, steroid-induced. Anticoagulation remains on hold, receiving transfusion of platelets. 10/16/2019 Xarelto as well as immunosuppressants remains on hold, received platelet transfusion yesterday, platelets up to 12. No active bleeding. Evaluated by oncology/hematology, recommendations noted including IV steroids initiated. Blood sugars elevated, high 200s. Petechiae and bruising improved, denies cough, congestion. Afebrile. Normal WBC. COVID-19 pending. Creatinine 1.26. 10/17/2019 anticoagulation and immunosuppressants remain on hold. Maintained on high-dose steroids. Platelets increased to 18, creatinine 1.29. No new bruising noted. Good diet intake, consumed 100% of breakfast with no nausea vomiting or diarrhea.Covid results pending .afebrile, normal WBC. Denies chest pain, palpitations or shortness of breath.Covid 19 reported negative, patient will be discharged home in a stable condition with guarded prognosis pending platelets continue trending up, clearance/final DC recommendations from both oncology and nephrology. Anticoagulation remains on hold until platelets greater than 50,000. Home immunosuppressants remain on hold, with Prograf initiated at DC as per nephrology. - Exam GENERAL: Alert and oriented 3, no acute distress CARDIOVASCULAR: S1, S2 regular. No murmur RESPIRATION: Breath sounds diminished in the bases. No rhonchi or crackles. No wheezing. ABDOMEN: Soft, nontender . No guarding. no masses palpable. Bowel sounds heard. SKIN: Significant improvement in bruising/petechiae. NERVOUS SYSTEM: No focal deficits. The impression and plan of care has been dictated as directed. : I performed a history and examination of this patient, discussed the same with the dictator. I agree with the dictator's note ,documented as a scribe. Any additional findings or plans will be noted. Patient Condition at Discharge: Stable Plan - Discharge Summary Discharge Rx Participant: No New Discharge Prescriptions: New Pantoprazole [Protonix] 40 mg PO DAILY #30 tablet. predniSONE [Deltasone] 20 mg PO DAILY #90 tab Continue Calcium Carbonate 1,000 mg PO DAILY Chlorthalidone 12.5 mg PO DAILY clonazePAM [KlonoPIN] 1 - 2 mg PO BID PRN PRN Reason: Anxiety Finasteride [Proscar] 5 mg PO DAILY Magnesium Oxide [Mag-Ox] 250 mg PO DAILY Tamsulosin HCl [Flomax] 0.4 mg PO DAILY Amitriptyline HCl [Elavil] 100 mg PO DAILY DULoxetine HCL [Cymbalta] 120 mg PO DAILY INSULIN LISPRO (humaLOG) [humaLOG] See Protocol SQ ACHS Multivitamins, Thera [Multivitamin (formulary)] 1 tab PO DAILY Amiodarone [Cordarone] 200 mg PO DAILY Metoprolol Tartrate [Lopressor] 25 mg PO BID Visionary Eye Vitamin 1 tab PO HS amLODIPine [Norvasc] 2.5 mg PO DAILY Cholecalciferol (Vitamin D3) [Vitamin D3] 6,000 unit PO DAILY Atorvastatin Calcium [Lipitor] 20 mg PO HS traZODone HCL 100 mg PO HS Changed Insulin Glargine [Lantus] 27 unit SQ AC-SUPPER #0 Discontinued Allopurinol [Zyloprim] 100 mg PO DAILY Mycophenolate Mofetil [Cellcept] 1,000 mg PO BID Rivaroxaban [Xarelto] 15 mg PO HS Sirolimus 1 mg PO DAILY Sirolimus [Rapamune] 0.5 mg PO DAILY Discharge Medication List Amitriptyline HCl [Elavil] 100 mg PO DAILY 02/09/17 [History] Calcium Carbonate 1,000 mg PO DAILY 02/09/17 [History] Chlorthalidone 12.5 mg PO DAILY 02/09/17 [History] Finasteride [Proscar] 5 mg PO DAILY 02/09/17 [History] Magnesium Oxide [Mag-Ox] 250 mg PO DAILY 02/09/17 [History] Tamsulosin HCl [Flomax] 0.4 mg PO DAILY 02/09/17 [History] clonazePAM [KlonoPIN] 1 - 2 mg PO BID PRN 02/09/17 [History] DULoxetine HCL [Cymbalta] 120 mg PO DAILY 04/19/18 [History] INSULIN LISPRO (humaLOG) [humaLOG] See Protocol SQ ACHS 12/31/18 [History] Multivitamins, Thera [Multivitamin (formulary)] 1 tab PO DAILY 12/31/18 [History] Amiodarone [Cordarone] 200 mg PO DAILY 01/03/19 [History] Metoprolol Tartrate [Lopressor] 25 mg PO BID 01/03/19 [History] Cholecalciferol (Vitamin D3) [Vitamin D3] 6,000 unit PO DAILY 04/28/19 [History] Visionary Eye Vitamin 1 tab PO HS 04/28/19 [History] amLODIPine [Norvasc] 2.5 mg PO DAILY 04/28/19 [History] Atorvastatin Calcium [Lipitor] 20 mg PO HS 10/14/19 [History] traZODone HCL 100 mg PO HS 10/14/19 [History] Insulin Glargine [Lantus] 27 unit SQ AC-SUPPER #0 10/18/19 [Rx] Pantoprazole [Protonix] 40 mg PO DAILY #30 tablet 10/18/19 [Rx] predniSONE [Deltasone] 20 mg PO DAILY #90 tab 10/18/19 [Rx] Follow up Appointment(s)/Referral(s): Bear Winn MD [STAFF PHYSICIAN] - 1 Week Carolina Wolfe MD [STAFF PHYSICIAN] - 1 Week Narinder Rosenberg DO [Primary Care Provider] - 3 Days Ambulatory/Diagnostic Orders: Complete Blood Count w/diff [LAB.AMB] Time Frame: 3 Days, Location: None Selected Activity/Diet/Wound Care/Special Instructions: Steroid RX as per Hematology. Xarelto remains on hold until plts greater than 50,000, re-eval op with PCP/Hematology. Prograf RX as per Nephrology, prev. Immunosupp. on hold until resumed as per nephrology Maintain quranatine X 3 days more ,
--- NOTE | 2019-10-18 11:55 | PN ---
PROGRESS NOTE Patient is seen for followup for posttransplant care. He was admitted to the hospital with severe thrombocytopenia. He has been started on steroids for possible ITP. However, there is strong consideration for thrombocytopenia related to his immunosuppressive medications as well. Currently, CellCept is on hold and Rapamune is on hold as well. His level was at 5 and plan is to start low-dose Prograf at the time of discharge. Serum creatinine has been very stable. Creatinine is at baseline of about 1.2-1.3 mg/dL. PHYSICAL EXAMINATION: Today patient is comfortable, awake, alert, oriented x3, not in any acute distress. Blood pressure is 143/69, heart rate 63 per minute. He is afebrile. Examination of the heart S1, S2. Examination of the lungs, bilateral breath sounds are heard. Abdomen is soft, nontender. Examination of the lower extremities shows no significant edema. Mild petechiae are noted. TOOL AND DIE ENGINEER exam grossly intact. LABS: Show hemoglobin 10.2, platelet count at 39,000 today, white cell count 7.9, sodium 135, potassium 3.6, serum creatinine down to 1.3. ASSESSMENT: 1. Status post donor transplant 05/20/2003 with stable renal function, currently off of CellCept and Rapamune, maintained on steroids and plan is to switch to Prograf at the time of discharge. 2. 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 3. Thrombocytopenia, most likely related to immunosuppressive medications versus ITP, being followed by Hematology, maintained on steroids. 4. Hypertension with chronic kidney disease. 5. Type 2 diabetes, maintained on insulin. PLAN: Continue with the prednisone. Discharge patient on Prograf on discharge and continue to hold off on CellCept, post discharge. MMODL / IJN: [id number] /
[2019-10-18 12:21] LABS: Glucose,Whole Blood 316 mg/dL (75-99)
[2019-10-18 13:11] VITALS: BP 157/76; PULSE 57
--- NOTE | 2019-10-18 13:26 | P.PN ---
Subjective Progress Note Date: 10/18/19 Principal diagnosis: Thrombocytopenia Planning discharge today, will discharge on PO prednisone 80mg daily with PPI and will receive cbc and dosage next week. Objective - Vital Signs Vital signs: Vital Signs Temp 97.7 F 10/18/19 12:55 Pulse 57 L 10/18/19 12:55 Resp 16 10/18/19 12:55 BP 157/76 10/18/19 12:55 Pulse Ox 96 10/18/19 12:55 Intake & Output 10/17/19 10/18/19 10/18/19 18:59 06:59 18:59 Intake Total 240 1070 1180 Output Total 850 400 Balance -674 242 3468 Intake: Oral 240 1070 1180 Output: Urine 850 400 Other: Voiding Method Toilet Urinal # Voids 1 3 - Exam - Constitutional General appearance: no acute distress - EENT Eyes: EOMI, PERRLA ENT: hearing grossly normal, other (PET/CT and blood blisters on oral mucosa especially soft palate) - Neck Neck: no lymphadenopathy Thyroid: bilateral: normal size - Cardiovascular Rhythm: irregularly irregular Heart sounds: normal: S1, S2 - Gastrointestinal General gastrointestinal: normal bowel sounds, soft - Integumentary Petechial rash around mouth. Also petechial rash on lower extremity is below the knee. Scattered extensive bruising on both upper extremities. - Neurologic Neurologic: CNII-XII intact - Musculoskeletal Musculoskeletal: generalized weakness, strength equal bilaterally - Psychiatric Psychiatric: A&O x's 3, appropriate affect - Labs CBC & Chem 7: 10/18/19 06:58 10/18/19 06:58 Labs: Abnormal Lab Results - Last 24 Hours (Table) 10/17/19 10/17/19 10/18/19 Range/Units 16:43 20:10 06:58 RBC 3.86 L (4.30-5.90) m/uL Hgb 10.2 L (13.0-17.5) gm/dL Hct 32.0 L (39.0-53.0) % RDW 17.7 H (11.5-15.5) % Plt Count 39 L D (150-450) k/uL Lymphocytes # 0.6 L (1.0-4.8) k/uL Sodium (137-145) mmol/L BUN (9-20) mg/dL Creatinine (0.66-1.25) mg/dL Glucose (74-99) mg/dL POC Glucose (mg/dL) 242 H 312 H (75-99) mg/dL Calcium (8.4-10.2) mg/dL 10/18/19 10/18/19 10/18/19 Range/Units 06:58 07:09 12:20 RBC (4.30-5.90) m/uL Hgb (13.0-17.5) gm/dL Hct (39.0-53.0) % RDW (11.5-15.5) % Plt Count (150-450) k/uL Lymphocytes # (1.0-4.8) k/uL Sodium 135 L (137-145) mmol/L BUN 45 H (9-20) mg/dL Creatinine 1.30 H (0.66-1.25) mg/dL Glucose 259 H (74-99) mg/dL POC Glucose (mg/dL) 289 H 316 H (75-99) mg/dL Calcium 8.1 L (8.4-10.2) mg/dL Microbiology - Last 24 Hours (Table) 10/15/19 14:37 Gram Stain - Final Sputum Sputum Culture - Final Assessment and Plan Plan: Chest x-ray: report reviewed Assessment and Plan Thrombocytopenia: - Platelets 12K today improved from yesterday - The patient is presenting with a new onset severe pancytopenia. - He has associated symptoms of bruising, petechia, as well as epistaxis and hemoptysis. - Hemoglobin has dropped from baseline but since stabilize, likely due to bleeding related to low platelets. - WBC is normal. Renal function as well as coags do not show any significant deterioration. - He has been on imunosuppressive medications, this can also cause low platelets, but he has been on the same dose long-term without adjustment. 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 Given the patient's history, this may have been set off by his recent upper respiratory tract infection. He was placed on doxycycline, but that is typically not associated with immune mediated, cytopenia. - The patient seemed 1 dose of IV steroids in the ER. He will be placed on [id number] IV steroid dosing, PPI Given his current platelet count and symptoms, he will receive additional platelet transfusion. Depending on his response IVIG will also be considered, though that would be difficult given the current national shortage. Normocytic Anemia: - With recent Xarelto and evidence of Petechaei, hemoptysis and epistaxis - Iron studies and check liver function this admission Atrial Fibrillation - The patient was previously on xarelto for his A. fib. - Continue to Hold until Platelets are greater than 50K - His last dose of more than 48 hours ago. - Orders were also placed to avoid any aspirin or NSAIDs. - Continue to monitor closely with additional supportive care as needed - Case was also discussed with nephrology. While his immunosuppressive regimen is unlikely to be the cause of his pancytopenia, it may inhibit platelet response. Therefore nephrology will hold immunosuppression at this time. The patient will be on high-dose steroids anyway. Plan: - If plan is to discharge within 24 hours discharge on 80mg PO pred and PPI and follow-up in 5 days for blood draw and dose adjustment of prednisone - If plan is to await results of covid testing I will decrease IV steroids 60q8hr - Hold anticoagulation until platlets are greater than 50K - Immunosuppresant therapy per nephrology - Spoke to primary team - Patient aware of plan Physician Attestation: I have performed the full physical examination and reviewed the full history of this patient, as well as pertinent findings. I have created the compled impression and recommendations. I agree with the above dictation by MARTHA Rich. This dictation has been written as a scribe.
--- NOTE | 2019-10-21 14:40 | CDI ---
Documentation Clarification Form Date: 10/21/19 From: Yessi Saldaña CCS Phone: If you have a question about this query, please contact Seema Hoover, Licensed Loan Officer Assistant at [phone] between 8am and 5pm. Admit Date: 10/14/19 Discharge Date:10/18/19 Patient Name: Chet Lobo Visit Number: [id number] ATTENTION: The Clinical Documentation Specialists (CDI) and [facility] Coding Staff appreciate your assistance in clarifying documentation. Please respond to the clarification below the line at the bottom and electronically sign. The CDI & [facility] Coding staff will review the response and follow-up if needed. Please note: Queries are made part of the Legal Health Record. If you have any questions, please contact the author of this message via ITS. Dear Dr. Rosenberg, Your patient has a documented diagnosis of pancytopenia- which may lack sufficient clinical evidence/support. History/Risk Factors: Kidney transplant status, CKD, HTN, DM, Thrombocytopenia Clinical Indicators: Hemoptysis, Epistaxis, Thrombocytopenia Labs: WBC 5.1, 5.5 - RBC 4.15 L, 4.06 L - Platelets 2 L, 3 L Treatment: Transfusion Platelets Pancytopenia is a condition that occurs when a person has low counts for all three types of blood cells: red blood cells, white blood cells, and platelets. Based on the clinical evidence and your professional judgment, do you feel pancytopenia is a valid diagnosis? Yes, pancytopenia is present/active during this admission as evidence by (additional clinical support): No, pancytopenia was ruled out. Other (please specify diagnosis) Unable to determine pancytopenia ruled out, new Dx bicytopenia MTDD
== END 2019-10-18 15:05 | disposition home or self-care (01) | DRG 813 ==
LOC: EC 18:12 → 6NMEDSUR 19:51 → 3SCARD 10-15 14:18 → 5NMEDONC 10-17 16:54
PROVIDERS: ADMIT Family Medicine; ATTEND Family Medicine
PROC: 30233R1 Transfusion of Nonautologous Platelets into Peripheral Vein, Percutaneous Approach (ICD-10-PCS; principal; 2019-10-14)
DX: D69.3 Immune thrombocytopenic purpura (principal); I48.20 Chronic atrial fibrillation, unspecified; Z94.0 Kidney transplant status; R04.2 Hemoptysis; N18.3 Chronic kidney disease, stage 3 (moderate); E11.22 Type 2 diabetes mellitus with diabetic chronic kidney disease; Z20.828 Contact with and (suspected) exposure to other viral communicable diseases; I12.9 Hypertensive chronic kidney disease with stage 1 through stage 4 chronic kidney disease, or unspecified chronic kidney disease; E11.65 Type 2 diabetes mellitus with hyperglycemia; J06.9 Acute upper respiratory infection, unspecified; E78.5 Hyperlipidemia, unspecified; I25.10 Atherosclerotic heart disease of native coronary artery without angina pectoris; F41.9 Anxiety disorder, unspecified; F32.9 Major depressive disorder, single episode, unspecified; E89.0 Postprocedural hypothyroidism; H91.90 Unspecified hearing loss, unspecified ear; T38.0X5A Adverse effect of glucocorticoids and synthetic analogues, initial encounter; R04.0 Epistaxis; E66.9 Obesity, unspecified; T45.1X5A Adverse effect of antineoplastic and immunosuppressive drugs, initial encounter; Z68.30 Body mass index [BMI] 30.0-30.9, adult; Z79.4 Long term (current) use of insulin; Z79.01 Long term (current) use of anticoagulants; Z79.899 Other long term (current) drug therapy; Z87.891 Personal history of nicotine dependence; Z85.820 Personal history of malignant melanoma of skin; Z95.1 Presence of aortocoronary bypass graft; Z85.46 Personal history of malignant neoplasm of prostate; Z88.5 Allergy status to narcotic agent; Z80.8 Family history of malignant neoplasm of other organs or systems; Z83.2 Family history of diseases of the blood and blood-forming organs and certain disorders involving the immune mechanism
CPT/HCPCS: 36415; 36430; 71046; 80048; 80076; 80195; 82607; 82728; 82746; 82747; 83010; 83540; 83550; 83615; 83883; 84165; 85025; 85027; 85045; 85384; 85610; 85730; 86038; 86334; 86431; 86850; 86900; 86901; 87070; 87205; 87502; 93005; 96374; 99284

== ENCOUNTER → 2019-10-14 | Outpatient (CLI) | payer MEDICARE ==
[2019-10-14 16:33] LABS: Anisocytosis Slight; HCT 35.7 % (39.0-53.0); HGB 11.3 gm/dL (13.0-17.5); Hypochromasia Moderate; MCH 26.3 pg (25.0-35.0); MCHC 31.7 g/dL (31.0-37.0); MCV 83.1 fL (80.0-100.0); Mean Platelet Volume 7.9; Poikilocytosis Slight; RBC 4.29 m/uL (4.30-5.90); WBC 6.1 k/uL (3.8-10.6)
[2019-10-14 16:58] LABS: Platelet Count 3 k/uL (150-450)
[2019-10-14 23:34] LABS: African American GFR (CKD) 56.2 (60.0-200.0); Anion Gap 12.5 mmol/L (4.00-12.00); Calcium 8.7 mg/dL (8.7-10.3); Carbon Dioxide 23.5 mmol/L (21.6-31.8); Non-African American GFR(CKD) 48.5 (60.0-200.0); Potassium 4.4 mmol/L (3.5-5.5)
== END | disposition home or self-care (01) ==
LOC: LABWHC1 16:12
PROVIDERS: ATTEND Internal Medicine Interventional Cardiology
DX: D64.9 Anemia, unspecified (principal)
CPT/HCPCS: 36415; 80048; 85027

== ENCOUNTER 2019-12-18 11:39 | Inpatient (IN) | payer MEDICARE ==
[2019-12-18] MEDS ORDERED: SODIUM CHLORIDE 0.9% 500 ML 500 ML IV STA (11:52)
--- NOTE | 2019-12-18 12:33 | ED ---
General Adult HPI - General Chief complaint: Recheck/Abnormal Lab/Rx Stated complaint: Abnormal labs Time Seen by Provider: 12/18/19 11:52 Source: patient, RN notes reviewed, old records reviewed Mode of arrival: ambulatory Limitations: no limitations - History of Present Illness Initial comments: 79-year-old male history of renal transplant, chronic thrombocytopenia presenting for evaluation of low platelets, increased fatigue and weakness. Symptoms have been present for the past several weeks or maybe longer according to the patient. He's been on steroids, hydrocephalus for the past several weeks in an attempt to improve his platelet counts. He was taken off of his CellCept and Prograf during this period treatment. He was sent in by his insurance sales executive for evaluation of this fatigue including concerns for acute renal failure, uremia, rhabdomyolysis. Patient denying fever. Denies cough. Denies vomiting or diarrhea. - Related Data Home Medications Medication Instructions Recorded Confirmed Amitriptyline HCl [Elavil] 100 mg PO DAILY 02/09/17 11/19/19 Calcium Carbonate 1,000 mg PO DAILY 02/09/17 11/19/19 Chlorthalidone 12.5 mg PO DAILY 02/09/17 11/19/19 Finasteride [Proscar] 5 mg PO DAILY 02/09/17 11/19/19 Magnesium Oxide [Mag-Ox] 250 mg PO DAILY 02/09/17 11/19/19 Tamsulosin HCl [Flomax] 0.4 mg PO DAILY 02/09/17 11/19/19 clonazePAM [KlonoPIN] 1 - 2 mg PO BID PRN 02/09/17 11/19/19 DULoxetine HCL [Cymbalta] 120 mg PO DAILY 04/19/18 11/19/19 INSULIN LISPRO (humaLOG) [humaLOG] See Protocol SQ ACHS 12/31/18 11/19/19 Multivitamins, Thera [Multivitamin 1 tab PO DAILY 12/31/18 11/19/19 (formulary)] Amiodarone [Cordarone] 200 mg PO DAILY 01/03/19 11/19/19 Metoprolol Tartrate [Lopressor] 25 mg PO BID 01/03/19 11/13/19 Cholecalciferol (Vitamin D3) 6,000 unit PO DAILY 04/28/19 11/19/19 [Vitamin D3] Visionary Eye Vitamin 1 tab PO HS 04/28/19 11/19/19 amLODIPine [Norvasc] 2.5 mg PO DAILY 04/28/19 11/19/19 Atorvastatin Calcium [Lipitor] 20 mg PO HS 10/14/19 11/19/19 traZODone HCL 100 mg PO HS 10/14/19 11/19/19 Previous Rx's Medication Instructions Recorded Insulin Glargine [Lantus] 27 unit SQ AC-SUPPER #0 10/18/19 Pantoprazole [Protonix] 40 mg PO DAILY #30 tablet. 10/18/19 predniSONE [Deltasone] 20 mg PO DAILY #90 tab 10/18/19 Allergies Allergy/AdvReac Type Severity Reaction Status Date / Time morphine Allergy Itching Verified 12/18/19 11:48 Review of Systems ROS Statement: Those systems with pertinent positive or pertinent negative responses have been documented in the HPI. ROS Other: All systems not noted in ROS Statement are negative. 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 History of Any Multi-Drug Resistant Organisms: None Reported Past Surgical History: Coronary Bypass/CABG, Orthopedic Surgery Additional Past Surgical History / Comment(s): kidney transplant, parathyoid surgery, knee Past Anesthesia/Blood Transfusion Reactions: No Reported Reaction Past Psychological History: Anxiety, Depression Smoking Status: Never smoker - Past Family History Father Family Medical History: Deep Vein Thrombosis (DVT) Son(s) Family Medical History: Cancer Additional Family Medical History / Comment(s): Skin cancer. General Exam Limitations: no limitations General appearance: alert, in no apparent distress Head exam: Present: atraumatic, normocephalic Eye exam: Present: normal appearance, PERRL ENT exam: Present: mucous membranes dry Neck exam: Present: normal inspection. Absent: tenderness, meningismus Respiratory exam: Present: normal lung sounds bilaterally. Absent: respiratory distress, wheezes Cardiovascular Exam: Present: regular rate, irregular rhythm GI/Abdominal exam: Present: soft. Absent: distended, tenderness, guarding Extremities exam: Present: normal inspection, normal capillary refill. Absent: pedal edema Neurological exam: Present: alert, oriented X3, CN II-XII intact. Absent: motor sensory deficit Psychiatric exam: Present: normal affect, normal mood Skin exam: Present: warm, dry, pallor Course Vital Signs 12/18/19 12/18/19 11:44 12:50 Temperature 98.2 F Pulse Rate 78 78 Respiratory 18 18 Rate Blood Pressure 89/63 114/74 O2 Sat by Pulse 97 94 L Oximetry EKG Findings - EKG Comments: EKG Findings:: EKG: Atrial flutter with variable AV block, right ventricular hypertrophy, no ST segment elevation, rate of 76, QRS duration 76, QTC 425 Medical Decision Making - Medical Decision Making 79-year-old male presenting with generalized weakness, sent in by his insurance sales executive. Workup does reveal profound thrombocytopenia at 5. He has a elevated white blood cell count 15, stable hemoglobin. Normal kidney function, normal creatinine kinase, relatively normal electrolytes. I did contact Dr. Winn was able to speak to his nurse practitioner, agreeable with transfusion of platelets and admission. I discussed case with Dr. Rosenberg who will accept admis rosalinda with hematology on consult. - Lab Data Result diagrams: 12/18/19 12:35 12/18/19 12:35 Lab Results 12/18/19 12/18/19 12/18/19 Range/Units 12:35 12:35 12:35 WBC 15.2 H (3.8-10.6) k/uL RBC 5.30 (4.30-5.90) m/uL Hgb 15.6 (13.0-17.5) gm/dL Hct 48.2 (39.0-53.0) % MCV 91.0 (80.0-100.0) fL MCH 29.5 (25.0-35.0) pg MCHC 32.4 (31.0-37.0) g/dL RDW 17.6 H (11.5-15.5) % Plt Count 5 L* D (150-450) k/uL Neutrophils % 94 % Lymphocytes % 2 % Monocytes % 3 % Eosinophils % 0 % Basophils % 0 % Neutrophils # 14.3 H (1.3-7.7) k/uL Lymphocytes # 0.4 L (1.0-4.8) k/uL Monocytes # 0.5 (0-1.0) k/uL Eosinophils # 0.0 (0-0.7) k/uL Basophils # 0.1 (0-0.2) k/uL Anisocytosis Slight PT 9.6 (9.0-12.0) sec INR 0.9 (<1.2) APTT 20.7 L (22.0-30.0) sec Sodium (137-145) mmol/L Potassium (3.5-5.1) mmol/L Chloride (98-107) mmol/L Carbon Dioxide (22-30) mmol/L Anion Gap mmol/L BUN (9-20) mg/dL Creatinine (0.66-1.25) mg/dL Est GFR (CKD-EPI)AfAm (>60 ml/min/1.73 sqM) Est GFR (CKD-EPI)NonAf (>60 ml/min/1.73 sqM) Glucose (74-99) mg/dL Plasma Lactic Acid Jc (0.7-2.0) mmol/L Calcium (8.4-10.2) mg/dL Phosphorus (2.5-4.5) mg/dL Magnesium (1.6-2.3) mg/dL Total Bilirubin (0.2-1.3) mg/dL AST (17-59) U/L ALT (4-49) U/L Alkaline Phosphatase (38-126) U/L Creatine Kinase (55-170) U/L Total Protein (6.3-8.2) g/dL Albumin (3.5-5.0) g/dL Urine Color Yellow Urine Appearance Clear (Clear) Urine pH 7.0 (5.0-8.0) Ur Specific Street 1.014 (1.001-1.035) Urine Protein Trace H (Negative) Urine Glucose (UA) Negative (Negative) Urine Ketones Negative (Negative) Urine Blood Negative (Negative) Urine Nitrite Negative (Negative) Urine Bilirubin Negative (Negative) Urine Urobilinogen <2.0 (<2.0) mg/dL Ur Leukocyte Esterase Negative (Negative) 12/18/19 12/18/19 Range/Units 12:35 12:35 WBC (3.8-10.6) k/uL RBC (4.30-5.90) m/uL Hgb (13.0-17.5) gm/dL Hct (39.0-53.0) % MCV (80.0-100.0) fL MCH (25.0-35.0) pg MCHC (31.0-37.0) g/dL RDW (11.5-15.5) % Plt Count (150-450) k/uL Neutrophils % % Lymphocytes % % Monocytes % % Eosinophils % % Basophils % % Neutrophils # (1.3-7.7) k/uL Lymphocytes # (1.0-4.8) k/uL Monocytes # (0-1.0) k/uL Eosinophils # (0-0.7) k/uL Basophils # (0-0.2) k/uL Anisocytosis PT (9.0-12.0) sec INR (<1.2) APTT (22.0-30.0) sec Sodium 132 L (137-145) mmol/L Potassium 4.7 (3.5-5.1) mmol/L Chloride 102 (98-107) mmol/L Carbon Dioxide 21 L (22-30) mmol/L Anion Gap 9 mmol/L BUN 31 H (9-20) mg/dL Creatinine 1.16 (0.66-1.25) mg/dL Est GFR (CKD-EPI)AfAm 70 (>60 ml/min/1.73 sqM) Est GFR (CKD-EPI)NonAf 61 (>60 ml/min/1.73 sqM) Glucose 137 H (74-99) mg/dL Plasma Lactic Acid Jc 2.1 H* (0.7-2.0) mmol/L Calcium 8.2 L (8.4-10.2) mg/dL Phosphorus 4.1 (2.5-4.5) mg/dL Magnesium 2.0 (1.6-2.3) mg/dL Total Bilirubin 0.8 (0.2-1.3) mg/dL AST 22 (17-59) U/L ALT 42 (4-49) U/L Alkaline Phosphatase 48 (38-126) U/L Creatine Kinase <20 L (55-170) U/L Total Protein 5.5 L (6.3-8.2) g/dL Albumin 3.1 L (3.5-5.0) g/dL Urine Color Urine Appearance (Clear) Urine pH (5.0-8.0) Ur Specific Street (1.001-1.035) Urine Protein (Negative) Urine Glucose (UA) (Negative) Urine Ketones (Negative) Urine Blood (Negative) Urine Nitrite (Negative) Urine Bilirubin (Negative) Urine Urobilinogen (<2.0) mg/dL Ur Leukocyte Esterase (Negative) Disposition Clinical Impression: Thrombocytopenia Disposition: ADMITTED IP TO THIS HOSP Condition: Stable Is patient prescribed a controlled substance at d/c from ED?: No Referrals: Narinder Rosenberg DO [Primary Care Provider] - 1-2 days Decision to Admit Reason: Admit from EC Decision Date: 12/18/19 Decision Time: 14:20
[2019-12-18 13:02] LABS: Appearance,Urine Clear (Clear); Bilirubin,Urine Negative (Negative); Blood,Urine Negative (Negative); Color,Urine Yellow; Glucose,Urine (UA) Negative (Negative); Ketones,Urine Negative (Negative); Leukocyte Esterase,Urine Negative (Negative); Nitrite,Urine Negative (Negative); Protein,Urine Trace (Negative); Specific Gravity,Urine 1.014 (1.001-1.035); Urobilinogen,Urine <2.0 mg/dL (<2.0)
[2019-12-18 13:05] LABS: ALT 42 U/L (4-49); AST 22 U/L (17-59); African American GFR (CKD) 70 (>60 ml/min/1.73 sqM); Albumin 3.1 g/dL (3.5-5.0); Alkaline Phosphatase 48 U/L (38-126); Anion Gap 9 mmol/L; Blood Urea Nitrogen 31 mg/dL (9-20); Calcium 8.2 mg/dL (8.4-10.2); Carbon Dioxide 21 mmol/L (22-30); Chloride 102 mmol/L (98-107); Creatine Kinase <20 U/L (55-170); Glucose 137 mg/dL (74-99); Non-African American GFR(CKD) 61 (>60 ml/min/1.73 sqM); Phosphorus 4.1 mg/dL (2.5-4.5); Potassium 4.7 mmol/L (3.5-5.1); Sodium 132 mmol/L (137-145); Total Bilirubin 0.8 mg/dL (0.2-1.3); Total Protein 5.5 g/dL (6.3-8.2)
[2019-12-18 13:07] LABS: Anisocytosis Slight; Basophils # (A) 0.1 k/uL (0-0.2); Basophils % (A) 0 %; Eosinophils % (A) 0 %; HCT 48.2 % (39.0-53.0); HGB 15.6 gm/dL (13.0-17.5); Lymphocytes # (A) 0.4 k/uL (1.0-4.8); Lymphocytes % (A) 2 %; MCH 29.5 pg (25.0-35.0); MCHC 32.4 g/dL (31.0-37.0); Mean Platelet Volume 7.9; Monocytes # (A) 0.5 k/uL (0-1.0); Monocytes % (A) 3 %; Neutrophils # (A) 14.3 k/uL (1.3-7.7); Neutrophils % (A) 94 %; RDW 17.6 % (11.5-15.5); WBC 15.2 k/uL (3.8-10.6)
[2019-12-18 13:23] LABS: Platelet Count 5 k/uL (150-450)
[2019-12-18 13:26] LABS: INR 0.9 (<1.2); Prothrombin Time 9.6 sec (9.0-12.0)
[2019-12-18 13:34] LABS: Partial Thromboplastin Time 20.7 sec (22.0-30.0)
[2019-12-18] MEDS ORDERED: NALOXONE 0.4 MG/ML 1 ML VIAL IV PRN (14:14)
[2019-12-18 20:44] LABS: Glucose,Whole Blood 482 mg/dL (75-99)
[2019-12-18 20:44] LABS: Glucose,Whole Blood 505 mg/dL (75-99)
[2019-12-18] MEDS: SODIUM CHLORIDE 0.9% 1,000 ML IV SCH (20:50)
[2019-12-18] MEDS ORDERED: ACETAMINOPHEN TAB 325 MG TAB PO PRN (21:42)
[2019-12-18] MEDS: METOPROLOL TARTRATE 25 MG TAB PO SCH (23:37)
[2019-12-18] MEDS: ATORVASTATIN 20 MG TAB PO SCH (23:37)
[2019-12-18] MEDS: AMITRIPTYLINE HCL 50 MG TAB PO SCH (23:37)
[2019-12-18] MEDS: INSULIN DETEMIR (LEVEMIR) 100 UNIT/ML SYR SQ SCH (23:38)
[2019-12-18] MEDS: hydrALAZINE HCL 50 MG TAB PO SCH (23:38)
[2019-12-18] MEDS: NYSTATIN 100,000 UNIT/ML SUSP 500,000 UNIT/5 ML CUP PO SCH (23:38)
[2019-12-18] MEDS: INSULIN ASPART (NovoLOG) 100 UNIT/ML VIAL SQ SCH (23:39)
[2019-12-18] MEDS: traZODone HCL 100 MG TAB PO SCH (23:40)
[2019-12-18] MEDS: clonazePAM 1 MG TAB PO PRN (23:49)
[2019-12-19] MEDS: LEVOTHYROXINE 25 MCG TAB PO SCH (05:55)
[2019-12-19 06:58] LABS: Glucose,Whole Blood 76 mg/dL (75-99)
[2019-12-19] MEDS: INSULIN ASPART (NovoLOG) 100 UNIT/ML VIAL SQ SCH ×4 (07:18→21:38)
[2019-12-19] MEDS ORDERED: INSULIN ASPART (NovoLOG) 100 UNIT/ML VIAL SQ SCH (07:30)
[2019-12-19 08:03] LABS: Anisocytosis Slight; Basophils % (A) 0 %; Eosinophils % (A) 0 %; HCT 43.9 % (39.0-53.0); HGB 13.5 gm/dL (13.0-17.5); Lymphocytes # (A) 0.6 k/uL (1.0-4.8); Lymphocytes % (A) 5 %; MCH 28.2 pg (25.0-35.0); MCHC 30.7 g/dL (31.0-37.0); MCV 91.8 fL (80.0-100.0); Mean Platelet Volume 8.9; Monocytes # (A) 0.5 k/uL (0-1.0); Monocytes % (A) 4 %; Neutrophils # (A) 9.7 k/uL (1.3-7.7); Neutrophils % (A) 89 %; RBC 4.78 m/uL (4.30-5.90); RDW 17.4 % (11.5-15.5); WBC 10.9 k/uL (3.8-10.6)
[2019-12-19 08:12] LABS: Platelet Count 8 k/uL (150-450)
[2019-12-19 08:13] LABS: African American GFR (CKD) >90 (>60 ml/min/1.73 sqM); Anion Gap 5 mmol/L; Blood Urea Nitrogen 27 mg/dL (9-20); Calcium 7.8 mg/dL (8.4-10.2); Carbon Dioxide 27 mmol/L (22-30); Chloride 104 mmol/L (98-107); Glucose 67 mg/dL (74-99); Non-African American GFR(CKD) 78 (>60 ml/min/1.73 sqM); Potassium 4.3 mmol/L (3.5-5.1); Sodium 136 mmol/L (137-145)
[2019-12-19] MEDS: METOPROLOL TARTRATE 25 MG TAB PO SCH ×2 (08:35→21:39)
[2019-12-19] MEDS: PANTOPRAZOLE 40 MG TABLET PO SCH (08:35)
[2019-12-19] MEDS: MULTIVITAMINS, THERA 1 EACH TAB PO SCH (08:36)
[2019-12-19] MEDS: TAMSULOSIN 0.4 MG CAP.ER.24H PO SCH (08:36)
[2019-12-19] MEDS: MAGNESIUM OXIDE 400 MG TAB PO SCH (08:36)
[2019-12-19] MEDS: DULoxetine HCL 60 MG CAPSULE.DR PO SCH (08:36)
[2019-12-19] MEDS: FINASTERIDE 5 MG TAB PO SCH (08:36)
[2019-12-19] MEDS: amLODIPine 5 MG TAB PO SCH (08:36)
[2019-12-19] MEDS: VIT A,C & E-LUTEIN-MINERALS 1 EACH TAB PO SCH (08:36)
[2019-12-19] MEDS: NYSTATIN 100,000 UNIT/ML SUSP 500,000 UNIT/5 ML CUP PO SCH ×4 (08:37→21:45)
[2019-12-19] MEDS: hydrALAZINE HCL 50 MG TAB PO SCH ×3 (08:43→17:39)
[2019-12-19] MEDS ORDERED: [UNRECOGNIZED DRUG - OTHER] PO SCH (09:00)
[2019-12-19] MEDS ORDERED: predniSONE 20 MG TAB PO SCH (09:00)
[2019-12-19 11:02] LABS: Glucose,Whole Blood 147 mg/dL (75-99)
--- NOTE | 2019-12-19 13:01 | P.CONS ---
History of Present Illness - Reason for Consult Consult date: 12/19/19 Thrombocytopenia, sever myalgias, myopathy - History of Present Illness Mister Lobo is a very pleasant 79-year-old male patient who is seen in the hospital by Dr. Winn on 10/15/19. 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 Dasilva, no treatment. Patient came to [facility] 10/14/19. He was in [place] previously, he developed an upper respiratory infection that persisted for about 3 weeks. Was placed on antibiotic without much improvement. While he was on his way home from [place] he noticed easy bruising, petechiae on the lower extremities, nose bleed and hemoptysis. He spoke to his clean up supervisor to held Xarelto. He was told to go to the ER. On admit he had a normal white blood cell, platelets 2000, hemoglobin 10.9, BUN 28, creatinine 1.37. Iron studies were within normal limits. Paraproteinemia workup was negative. Patient was placed on steroids. He was placed on steroids. His blood sugars finesse into the 300s. Codvid 19 was negative. 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 Xarelto was held, along with his CellCept and sirolimus anti-rejection meds. The patient did not have much of a response to high dose prednisone and was therefore started on Rituxan. He had weekly treatments x 4, completing those on 12/09/19. Platelets remain between 10-20,000. The patient had a pulmonary medicine visit at his own request today. He states that over the past few days he has been feeling much more fatigued than usual. His complaining of generalized muscle aching and weakness. He reports difficulty in getting up from a sitting down position as well as walking. He st ated that he felt like he has a bad flu. He was instructed to go to the emergency room as there was concern for rhabdomyolysis as well as possible uremia, among the differentials. Labs in the ER showed normal renal functions and normal CKs. He was noted to have a platelet count of 5000 and was admitted for platelet transfusion, and consult placed. He denied any unusual bleeding or bruising. He reported good compliance with his steroids. Review of Systems Constitutional: Reports fatigue, Reports weakness Eyes: denies blurred vision, denies pain Ears: bilateral: decreased hearing, deny: ear discharge, earache, tinnitus Ears, nose, mouth and throat: Denies headache, Denies sore throat Cardiovascular: Reports decreased exercise tolerance Respiratory: Denies cough Gastrointestinal: Denies abdominal pain, Denies diarrhea, Denies nausea, Denies vomiting Genitourinary: Reports urinary frequency Musculoskeletal: Reports limitation of motion, Reports low back pain, Reports muscle weakness, Reports myalgias Integumentary: Denies pruritus, Denies rash Neurological: Reports weakness Psychiatric: Reports anxiety Endocrine: Reports fatigue, Reports high blood sugars Hematologic/Lymphatic: Reports as per HPI Past Medical History Past Medical History: Atrial Fibrillation, Diabetes Mellitus, Hyperlipidemia, Hypertension, Renal Disease, Thyroid Disorder Additional Past Medical History / Comment(s): Melamoma taken off of ear, "slow growing cancer of prostate, being watched by Dr Dasilva." Hard of hearing. History of Any Multi-Drug Resistant Organisms: None Reported Past Surgical History: Coronary Bypass/CABG, Orthopedic Surgery Additional Past Surgical History / Comment(s): kidney transplant, parathyoid surgery, knee Past Anesthesia/Blood Transfusion Reactions: No Reported Reaction Past Psychological History: Anxiety, Depression Smoking Status: Never smoker Past Alcohol Use History: Rare Past Drug Use History: None Reported - Past Family History Father Family Medical History: Deep Vein Thrombosis (DVT) Son(s) Family Medical History: Cancer Additional Family Medical History / Comment(s): Skin cancer. Medications and Allergies Home Medications Medication Instructions Recorded Confirmed Type Amitriptyline HCl [Elavil] 100 mg PO HS 02/09/17 12/18/19 History Finasteride [Proscar] 5 mg PO DAILY 02/09/17 12/18/19 History Magnesium Oxide [Mag-Ox] 250 mg PO DAILY 02/09/17 12/18/19 History Tamsulosin HCl [Flomax] 0.4 mg PO DAILY 02/09/17 12/18/19 History clonazePAM [KlonoPIN] 1 - 2 mg PO HS PRN 02/09/17 12/18/19 History DULoxetine HCL [Cymbalta] 120 mg PO DAILY 04/19/18 12/18/19 History Multivitamins, Thera [Multivitamin 1 tab PO DAILY 12/31/18 12/18/19 History (formulary)] Metoprolol Tartrate [Lopressor] 25 mg PO BID 01/03/19 12/18/19 History Atorvastatin Calcium [Lipitor] 20 mg PO HS 10/14/19 12/18/19 History traZODone HCL 100 mg PO HS 10/14/19 12/18/19 History Insulin Glargine [Lantus] 27 unit SQ AC-SUPPER #0 10/18/19 12/19/19 Rx Pantoprazole [Protonix] 40 mg PO DAILY #30 tablet.dr 10/18/19 12/18/19 Rx Calcium Glutamate 500mg 1,000 mg PO DAILY 12/18/19 12/18/19 History INSULIN LISPRO (humaLOG) [humaLOG] 27 unit INJ ACHS 12/18/19 12/19/19 History Levothyroxine Sodium [Levoxyl] 25 mcg PO QAM 12/18/19 12/18/19 History Nystatin 100,000 Unit/ml Susp 4 ml PO QID 12/18/19 12/18/19 History [Mycostatin Oral Susp] Vit C/E/Zn/Coppr/Lutein/Zeaxan 1 cap PO DAILY 12/18/19 12/18/19 History [Preservision Areds 2 Softgel] amLODIPine [Norvasc] 5 mg PO DAILY 12/18/19 12/18/19 History hydrALAZINE HCL [Apresoline] 50 mg PO AC-TID 12/18/19 12/18/19 History predniSONE [Deltasone] 80 mg PO DAILY 12/18/19 12/18/19 History Allergies Allergy/AdvReac Type Severity Reaction Status Date / Time morphine Allergy Itching Verified 12/18/19 22:38 Physical Exam Vitals: Vital Signs Temp Pulse Pulse Resp BP BP Pulse Ox 12/19/19 12:11 98 F 73 18 130/67 92 L 12/19/19 05:49 97 12/19/19 04:23 98.0 F 75 18 102/61 92 L 12/18/19 20:35 97.4 F L 104 H 18 153/93 98 12/18/19 20:16 91 18 144/89 97 12/18/19 16:38 98.2 F 76 18 136/89 95 12/18/19 16:08 97.7 F 80 18 130/85 96 12/18/19 15:59 98.1 F 85 18 140/85 98 12/18/19 15:58 98.1 F 85 18 140/85 98 12/18/19 14:40 74 18 131/85 95 12/18/19 12:50 78 18 114/74 94 L Intake and Output 12/18/19 12/19/19 12/19/19 22:59 06:59 14:59 Intake Total 700 1296 Balance 700 1296 Intake: Intake, IV Titration 100 400 Amount Sodium Chloride 0.9% 1, 100 400 000 ml @ 50 mls/hr IV . Q20H [facility] Rx#:[id number] Oral 600 590 Blood Product 0 306 Platelet Irr Pheresis 0 306 Acda1 Unit [id number] Other: Voiding Method Toilet Toilet # Voids 1 2 - Constitutional General appearance: no acute distress - EENT Eyes: EOMI, PERRLA ENT: hearing grossly normal, normal oropharynx - Neck Neck: no lymphadenopathy Thyroid: bilateral: normal size - Respiratory Respiratory: bilateral: CTA - Cardiovascular Rhythm: regular Heart sounds: normal: S1, S2 - Gastrointestinal General gastrointestinal: normal bowel sounds, soft - Integumentary Integumentary: normal - Neurologic Neurologic: CNII-XII intact - Musculoskeletal Weakness more prominent in pelvic girdle muscles, and proximal lower extremity Musculoskeletal: generalized weakness, strength equal bilaterally - Psychiatric Psychiatric: A&O x's 3, appropriate affect Results CBC & Chem 7: 12/19/19 06:36 12/19/19 06:36 Labs: Abnormal Lab Results - Last 24 Hours (Table) 12/18/19 12/18/19 12/18/19 Range/Units 12:35 12:35 12:35 WBC 15.2 H (3.8-10.6) k/uL MCHC (31.0-37.0) g/dL RDW 17.6 H (11.5-15.5) % Plt Count 5 L* D (150-450) k/uL Neutrophils # 14.3 H (1.3-7.7) k/uL Lymphocytes # 0.4 L (1.0-4.8) k/uL APTT 20.7 L (22.0-30.0) sec Sodium (137-145) mmol/L Carbon Dioxide (22-30) mmol/L BUN (9-20) mg/dL Glucose (74-99) mg/dL POC Glucose (mg/dL) (75-99) mg/dL Plasma Lactic Acid Jc (0.7-2.0) mmol/L Calcium (8.4-10.2) mg/dL Creatine Kinase (55-170) U/L Total Protein (6.3-8.2) g/dL Albumin (3.5-5.0) g/dL Urine Protein Trace H (Negative) 12/18/19 12/18/19 12/18/19 Range/Units 12:35 12:35 20:40 WBC (3.8-10.6) k/uL MCHC (31.0-37.0) g/dL RDW (11.5-15.5) % Plt Count (150-450) k/uL Neutrophils # (1.3-7.7) k/uL Lymphocytes # (1.0-4.8) k/uL APTT (22.0-30.0) sec Sodium 132 L (137-145) mmol/L Carbon Dioxide 21 L (22-30) mmol/L BUN 31 H (9-20) mg/dL Glucose 137 H (74-99) mg/dL POC Glucose (mg/dL) 505 H (75-99) mg/dL Plasma Lactic Acid Jc 2.1 H* (0.7-2.0) mmol/L Calcium 8.2 L (8.4-10.2) mg/dL Creatine Kinase <20 L (55-170) U/L Total Protein 5.5 L (6.3-8.2) g/dL Albumin 3.1 L (3.5-5.0) g/dL Urine Protein (Negative) 12/18/19 12/19/19 12/19/19 Range/Units 20:42 06:36 06:36 WBC 10.9 H (3.8-10.6) k/uL MCHC 30.7 L (31.0-37.0) g/dL RDW 17.4 H (11.5-15.5) % Plt Count 8 L* D (150-450) k/uL Neutrophils # 9.7 H (1.3-7.7) k/uL Lymphocytes # 0.6 L (1.0-4.8) k/uL APTT (22.0-30.0) sec Sodium 136 L (137-145) mmol/L Carbon Dioxide (22-30) mmol/L BUN 27 H (9-20) mg/dL Glucose 67 L (74-99) mg/dL POC Glucose (mg/dL) 482 H (75-99) mg/dL Plasma Lactic Acid Jc (0.7-2.0) mmol/L Calcium 7.8 L (8.4-10.2) mg/dL Creatine Kinase (55-170) U/L Total Protein (6.3-8.2) g/dL Albumin (3.5-5.0) g/dL Urine Protein (Negative) 12/19/19 Range/Units 11:00 WBC (3.8-10.6) k/uL MCHC (31.0-37.0) g/dL RDW (11.5-15.5) % Plt Count (150-450) k/uL Neutrophils # (1.3-7.7) k/uL Lymphocytes # (1.0-4.8) k/uL APTT (22.0-30.0) sec Sodium (137-145) mmol/L Carbon Dioxide (22-30) mmol/L BUN (9-20) mg/dL Glucose (74-99) mg/dL POC Glucose (mg/dL) 147 H (75-99) mg/dL Plasma Lactic Acid Jc (0.7-2.0) mmol/L Calcium (8.4-10.2) mg/dL Creatine Kinase (55-170) U/L Total Protein (6.3-8.2) g/dL Albumin (3.5-5.0) g/dL Urine Protein (Negative) Assessment and Plan (1) Myopathy Narrative/Plan: The patient had presented with somewhat acute complains of marked generalized myalgias and muscle weakness. He feels better since admission with hydration. On further questioning it appears that the process has been somewhat gradual over the past few weeks. While he does have generalized myalgias and arthralgias, muscle weakness and stiffness is much more prominent in the lower back, pelvic girdle and proximal lower extremities Labs did not show any evidence of rhabdomyolysis, or acute renal insufficiency. He has no evidence of any infection. 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 This was discussed with him. He was advised that recovery from this is likely to be gradual and involve ongoing physical therapy, as well as a slow taper of steroids. Steroid dose will be decreased to 60 mg and tapered off slowly. The patient will need ongoing physical therapy likely for a prolonged period of time. ECF is being considered. I discussed the case with the admitting service. Since ECF stay may interfere with his treatment for ITP due to coverage issues, the patient may be better served with inpatient rehabilitation. This will be discussed with case management, and consult to PMR placed if felt to be appropriate. Current Visit: Yes Status: Acute Code(s): G72.9 - MYOPATHY, UNSPECIFIED SNOMED Code(s): 67767275 (2) Idiopathic thrombocytopenia purpura Narrative/Plan: The patient has not had a response to high-dose steroids or Rituxan.. Counts have dropped to below 10,000 again. He received a unit of platelets yesterday and another unit was ordered. I discussed additional treatment options with him. He is agreeable to start thrombopoietin stimulating agent. We will therefore check for coverage for Promacta and get him started as soon as possible. He will need ongoing monito ring, and may need additional platelet transfusions until response occurs. Current Visit: Yes Status: Acute Code(s): D69.3 - IMMUNE THROMBOCYTOPENIC PURPURA SNOMED Code(s): 49781031 (3) History of renal transplant Narrative/Plan: The patient had been taken off his immunosuppressive medications as they were felt to be a possible cause for his thrombus cytopenia. This was discussed with nephrology and it was felt to be appropriate at that time, as the patient was also on high-dose steroids. However as we are going to be meeting office steroids he will likely need to resume his immunosuppressive medications. This will be discussed with nephrology to take appropriate measures. Renal function on admission is normal as noted Current Visit: Yes Status: Acute Code(s): Z94.0 - KIDNEY TRANSPLANT STATUS SNOMED Code(s): 877809361
--- NOTE | 2019-12-19 14:17 | P.HPIM ---
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 Patient had been advised by Dr. Winn, Oncologist to come to the ER for further evaluation. Patient maintained on high-dose steroids, Rituxan outpatient. Denies spontaneous bleeding. No blood in urine, not in bowel movement, no hemoptysis, no hematochezia. Denies fevers, cough, chills, abdominal pain, nausea , vomiting or diarrhea. Denies chest pain, palpitations. EKG reported atrial flutter, troponin pending. Platelets on admission 5, elevated WBC of 15.2, hemoglobin stable 15.6, currently 13.5, neutrophils 89, INR 0.9, sodium 132, now up to 136, BUN 31, creatinine 1.16, lactic acid 2, calcium 8.2, potassium and magnesium within normal limits, coronavirus not detected, creatinine kinase less than 20, total protein 5.5, albumin 3.1. Afebrile,VSS, maintaining O2 sats in the low 90s on room air. Received IV fluid hydration, platelets. Oncology consulted. Review of Systems ROS Statement: Those systems with pertinent positive or pertinent negative responses have been documented in the HPI. ROS Other: All systems not noted in ROS Statement are negative. 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 History of Any Multi-Drug Resistant Organisms: None Reported Past Surgical History: Coronary Bypass/CABG, Orthopedic Surgery Additional Past Surgical History / Comment(s): kidney transplant, parathyoid surgery, knee Past Anesthesia/Blood Transfusion Reactions: No Reported Reaction Past Psychological History: Anxiety, Depression Smoking Status: Never smoker Past Alcohol Use History: Rare Past Drug Use History: None Reported - Past Family History Father Family Medical History: Deep Vein Thrombosis (DVT) Son(s) Family Medical History: Cancer Additional Family Medical History / Comment(s): Skin cancer. Medications and Allergies Home Medications Medication Instructions Recorded Confirmed Type Amitriptyline HCl [Elavil] 100 mg PO HS 02/09/17 12/18/19 History Finasteride [Proscar] 5 mg PO DAILY 02/09/17 12/18/19 History Magnesium Oxide [Mag-Ox] 250 mg PO DAILY 02/09/17 12/18/19 History Tamsulosin HCl [Flomax] 0.4 mg PO DAILY 02/09/17 12/18/19 History clonazePAM [KlonoPIN] 1 - 2 mg PO HS PRN 02/09/17 12/18/19 History DULoxetine HCL [Cymbalta] 120 mg PO DAILY 04/19/18 12/18/19 History Multivitamins, Thera [Multivitamin 1 tab PO DAILY 12/31/18 12/18/19 History (formulary)] Metoprolol Tartrate [Lopressor] 25 mg PO BID 01/03/19 12/18/19 History Atorvastatin Calcium [Lipitor] 20 mg PO HS 10/14/19 12/18/19 History traZODone HCL 100 mg PO HS 10/14/19 12/18/19 History Insulin Glargine [Lantus] 27 unit SQ AC-SUPPER #0 10/18/19 12/19/19 Rx Pantoprazole [Protonix] 40 mg PO DAILY #30 tablet. 10/18/19 12/18/19 Rx Calcium Glutamate 500mg 1,000 mg PO DAILY 12/18/19 12/18/19 History INSULIN LISPRO (humaLOG) [humaLOG] 27 unit INJ ACHS 12/18/19 12/19/19 History Levothyroxine Sodium [Levoxyl] 25 mcg PO QAM 12/18/19 12/18/19 History Nystatin 100,000 Unit/ml Susp 4 ml PO QID 12/18/19 12/18/19 History [Mycostatin Oral Susp] Vit C/E/Zn/Coppr/Lutein/Zeaxan 1 cap PO DAILY 12/18/19 12/18/19 History [Preservision Areds 2 Softgel] amLODIPine [Norvasc] 5 mg PO DAILY 12/18/19 12/18/19 History hydrALAZINE HCL [Apresoline] 50 mg PO AC-TID 12/18/19 12/18/19 History predniSONE [Deltasone] 80 mg PO DAILY 12/18/19 12/18/19 History Allergies Allergy/AdvReac Type Severity Reaction Status Date / Time morphine Allergy Itching Verified 12/18/19 22:38 Physical Exam Vitals: Vital Signs Temp Pulse Pulse Resp BP BP Pulse Ox 12/19/19 13:07 98 F 73 18 130/67 92 L 12/19/19 12:11 98 F 73 18 130/67 92 L 12/19/19 05:49 97 12/19/19 04:23 98.0 F 75 18 102/61 92 L 12/18/19 20:35 97.4 F L 104 H 18 153/93 98 12/18/19 20:16 91 18 144/89 97 12/18/19 16:38 98.2 F 76 18 136/89 95 12/18/19 16:08 97.7 F 80 18 130/85 96 12/18/19 15:59 98.1 F 85 18 140/85 98 12/18/19 15:58 98.1 F 85 18 140/85 98 12/18/19 14:40 74 18 131/85 95 Intake and Output 12/18/19 12/19/19 12/19/19 22:59 06:59 14:59 Intake Total 700 1296 0 Balance 700 1296 0 Intake: Intake, IV Titration 100 400 Amount Sodium Chloride 0.9% 1, 100 400 000 ml @ 50 mls/hr IV . Q20H [facility] Rx#:[id number] Oral 600 590 Blood Product 0 306 0 Platelet Irr Pheresis 2 0 Acda Unit [id number] Platelet Irr Pheresis 0 306 Acda1 Unit [id number] Other: Voiding Method Toilet Toilet # Voids 1 2 VITAL SIGNS: As above GENERAL: Sitting up in bed, no acute distress HEENT: Conjunctivae normal. eyes normal. Oral mucosa moist NECK: No JVD. No thyroid enlargement. No LNs CARDIOVASCULAR: S1, S2 irregular.. No murmur RESPIRATION: Breath sounds diminished in the bases. No rhonchi or crackles. No bronchial breathing. ABDOMEN: Soft, nontender . No guarding. no masses palpable. No ascites, No hepatosplenomegaly.Bowel sounds heard. LEGS: No edema. no swelling. SKIN: warm, dry. Petechiae bilateral lower extremities. Multiple bruises upper and lower extremities PSYCHIATRY: Alert and oriented X3, mood and affect normal. NERVOUS SYSTEM: Cranial N 2-12 grossly normal. Moves all 4 limbs. No focal deficits. Strength and sensation grossly intact.. Lymphatic system. No LN neck axilla or groin. Results CBC & Chem 7: 12/19/19 06:36 12/19/19 06:36 Labs: Abnormal Lab Results - Last 24 Hours (Table) 12/18/19 12/18/19 12/19/19 Range/Units 20:40 20:42 06:36 WBC 10.9 H (3.8-10.6) k/uL MCHC 30.7 L (31.0-37.0) g/dL RDW 17.4 H (11.5-15.5) % Plt Count 8 L* D (150-450) k/uL Neutrophils # 9.7 H (1.3-7.7) k/uL Lymphocytes # 0.6 L (1.0-4.8) k/uL Sodium (137-145) mmol/L BUN (9-20) mg/dL Glucose (74-99) mg/dL POC Glucose (mg/dL) 505 H 482 H (75-99) mg/dL Calcium (8.4-10.2) mg/dL 12/19/19 12/19/19 Range/Units 06:36 11:00 WBC (3.8-10.6) k/uL MCHC (31.0-37.0) g/dL RDW (11.5-15.5) % Plt Count (150-450) k/uL Neutrophils # (1.3-7.7) k/uL Lymphocytes # (1.0-4.8) k/uL Sodium 136 L (137-145) mmol/L BUN 27 H (9-20) mg/dL Glucose 67 L (74-99) mg/dL POC Glucose (mg/dL) 147 H (75-99) mg/dL Calcium 7.8 L (8.4-10.2) mg/dL Thrombosis Risk Factor Assmnt - Choose All That Apply Each Factor Represents 1 point: Obesity (BMI >25) Each Risk Factor Represents 3 Points: Age 75 years or older Other congenital or acquired thrombophilia - If yes, enter type in comment: No Thrombosis Risk Factor Assessment Total Risk Factor Score: 4 Thrombosis Risk Factor Assessment Level: Moderate Risk Assessment and Plan Assessment: Generalized weakness with increased fatigue, bruising, petechiae, 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 Mild Acute renal failure secondary to dehydration Chronic atrial fibrillation Diabetes mellitus Hypertension Hyperlipidemia Chronic renal failure III with history of renal transplant, baseline creatinine 1.4. CAD, history of CABG Anxiety Depression History of prostate cancer, being followed by urology outpatient. Plan: Continue on current medication regime ,monitoring and symptomatic treatment. Per discussion with Dr. 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 Steroid weaning as per oncology. PT/OT. states unable to take care of patient. Dr. Winn/oncology adjusting meds, including possibly changing over to Promacta. Dr. Cheema consulted for inpatient rehab. Close monitoring of platelets, renal function, electrolytes with repeat labs ordered for a.m. prognosis guarded given multiple complex medical issues. The impression and plan of care has been dictated as directed. : I performed a history and examination of this patient, discussed the same with the dictator. I agree with the dictator's note ,documented as a scribe. Any additional findings or plans will be noted.
--- NOTE | 2019-12-19 14:23 | P.CONS ---
History of Present Illness - Chief Complaint medical debility - History of Present Illness I had the opportunity to see patient for inpatient rehab consultation with regard to medical debility. He was admitted to [facility] December 17 with myalgias, thrombocytopenia, ITP and history of renal transplant. Seen by Dr. Winn who we does know already. Reports supervision for upper dressing, bathing, toileting and minimal assistance for lower dressing and functional mobility/transfers. PT prescribed. Previous functional history as elicited from patient: 79-year-old right-handed white male who is lives in one floor home with . Patient and are both retired. does the cooking and laundry and they share the driving. Patient dependent with standing shower and gait without device. Dr. Rosenberg his PMD. Denies tobacco or alcohol. Family history father with PE. Review of Systems Review of systems: ENT: Denies sneezes or discharge. Eyes: Denies discharge or photophobia. Cardiac: Denies chest pain or palpitation. Pulmonary: Denies cough or shortness of breath. Gastrointestinal: Denies nausea, emesis, constipation, diarrhea. Genitourinary: Denies discharge or frequency. Musculoskeletal: Denies muscle or bone aches. Neurologic: Denies motor or sensory change. Endocrine: Denies shakes or sweats. Oncology: Denies cancers. Dermatologic: Denies rash, itching, pruritus. ALLERGY/immunology: Denies sneezes, rashes. 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 History of Any Multi-Drug Resistant Organisms: None Reported Past Surgical History: Coronary Bypass/CABG, Orthopedic Surgery Additional Past Surgical History / Comment(s): kidney transplant, parathyoid surgery, knee Past Anesthesia/Blood Transfusion Reactions: No Reported Reaction Past Psychological History: Anxiety, Depression Smoking Status: Never smoker Past Alcohol Use History: Rare Past Drug Use History: None Reported - Past Family History Father Family Medical History: Deep Vein Thrombosis (DVT) Son(s) Family Medical History: Cancer Additional Family Medical History / Comment(s): Skin cancer. Medications and Allergies Home Medications Medication Instructions Recorded Confirmed Type Amitriptyline HCl [Elavil] 100 mg PO HS 02/09/17 12/18/19 History Finasteride [Proscar] 5 mg PO DAILY 02/09/17 12/18/19 History Magnesium Oxide [Mag-Ox] 250 mg PO DAILY 02/09/17 12/18/19 History Tamsulosin HCl [Flomax] 0.4 mg PO DAILY 02/09/17 12/18/19 History clonazePAM [KlonoPIN] 1 - 2 mg PO HS PRN 02/09/17 12/18/19 History DULoxetine HCL [Cymbalta] 120 mg PO DAILY 04/19/18 12/18/19 History Multivitamins, Thera [Multivitamin 1 tab PO DAILY 12/31/18 12/18/19 History (formulary)] Metoprolol Tartrate [Lopressor] 25 mg PO BID 01/03/19 12/18/19 History Atorvastatin Calcium [Lipitor] 20 mg PO HS 10/14/19 12/18/19 History traZODone HCL 100 mg PO HS 10/14/19 12/18/19 History Insulin Glargine [Lantus] 27 unit SQ AC-SUPPER #0 10/18/19 12/19/19 Rx Pantoprazole [Protonix] 40 mg PO DAILY #30 tablet. 10/18/19 12/18/19 Rx Calcium Glutamate 500mg 1,000 mg PO DAILY 12/18/19 12/18/19 History INSULIN LISPRO (humaLOG) [humaLOG] 27 unit INJ ACHS 12/18/19 12/19/19 History Levothyroxine Sodium [Levoxyl] 25 mcg PO QAM 12/18/19 12/18/19 History Nystatin 100,000 Unit/ml Susp 4 ml PO QID 12/18/19 12/18/19 History [Mycostatin Oral Susp] Vit C/E/Zn/Coppr/Lutein/Zeaxan 1 cap PO DAILY 12/18/19 12/18/19 History [Preservision Areds 2 Softgel] amLODIPine [Norvasc] 5 mg PO DAILY 12/18/19 12/18/19 History hydrALAZINE HCL [Apresoline] 50 mg PO AC-TID 12/18/19 12/18/19 History predniSONE [Deltasone] 80 mg PO DAILY 12/18/19 12/18/19 History Allergies Allergy/AdvReac Type Severity Reaction Status Date / Time morphine Allergy Itching Verified 12/18/19 22:38 Physical Exam Vitals: Vital Signs Temp Pulse Pulse Resp BP BP Pulse Ox 12/19/19 13:47 97.6 F 80 18 128/70 97 12/19/19 13:17 92 134/82 12/19/19 13:07 98 F 73 18 130/67 92 L 12/19/19 12:11 98 F 73 18 130/67 92 L 12/19/19 05:49 97 12/19/19 04:23 98.0 F 75 18 102/61 92 L 12/18/19 20:35 97.4 F L 104 H 18 153/93 98 12/18/19 20:16 91 18 144/89 97 12/18/19 16:38 98.2 F 76 18 136/89 95 12/18/19 16:08 97.7 F 80 18 130/85 96 12/18/19 15:59 98.1 F 85 18 140/85 98 12/18/19 15:58 98.1 F 85 18 140/85 98 12/18/19 14:40 74 18 131/85 95 Intake and Output 12/18/19 12/19/19 12/19/19 22:59 06:59 14:59 Intake Total 700 1296 0 Balance 700 1296 0 Intake: Intake, IV Titration 100 400 Amount Sodium Chloride 0.9% 1, 100 400 000 ml @ 50 mls/hr IV . Q20H [facility] Rx#:[id number] Oral 600 590 Blood Product 0 306 0 Platelet Irr Pheresis 2 0 Acda Unit [id number] Platelet Irr Pheresis 0 306 Acda1 Unit [id number] Other: Voiding Method Toilet Toilet # Voids 1 2 Skin: Good color, texture, turgor. General: Medium build and comfortable appearance. Head: Normocephalic, atraumatic. Eyes: Symmetric. Pupils equal round. Ears: Symmetric. Hearing within normal limits. Mouth: Clear. Neck: Supple. Carotid without bruit. Cardiac: Regular rate and rhythm. Lungs: Clear anteriorly and posteriorly. Abdomen: Soft active nontender. Extremities: Normal tone. Neurological: Mental status: Alert, cooperative, pleasant. Cranial nerves: Symmetric facial tone and trapezius. Motor: can actively elevate off of bed all 4 limbs. Sensation: Intact throughout. DTRs: Symmetric and equal throughout. Mobility: Sits without assistance or verbal cueing or loss of balance. Results CBC & Chem 7: 12/19/19 06:36 12/19/19 06:36 Labs: Abnormal Lab Results - Last 24 Hours (Table) 12/18/19 12/18/19 12/19/19 Range/Units 20:40 20:42 06:36 WBC 10.9 H (3.8-10.6) k/uL MCHC 30.7 L (31.0-37.0) g/dL RDW 17.4 H (11.5-15.5) % Plt Count 8 L* D (150-450) k/uL Neutrophils # 9.7 H (1.3-7.7) k/uL Lymphocytes # 0.6 L (1.0-4.8) k/uL Sodium (137-145) mmol/L BUN (9-20) mg/dL Glucose (74-99) mg/dL POC Glucose (mg/dL) 505 H 482 H (75-99) mg/dL Calcium (8.4-10.2) mg/dL 12/19/19 12/19/19 Range/Units 06:36 11:00 WBC (3.8-10.6) k/uL MCHC (31.0-37.0) g/dL RDW (11.5-15.5) % Plt Count (150-450) k/uL Neutrophils # (1.3-7.7) k/uL Lymphocytes # (1.0-4.8) k/uL Sodium 136 L (137-145) mmol/L BUN 27 H (9-20) mg/dL Glucose 67 L (74-99) mg/dL POC Glucose (mg/dL) 147 H (75-99) mg/dL Calcium 7.8 L (8.4-10.2) mg/dL Assessment and Plan (1) History of renal transplant Current Visit: Yes Status: Acute Code(s): Z94.0 - KIDNEY TRANSPLANT STATUS SNOMED Code(s): 192532098 (2) Idiopathic thrombocytopenia purpura Current Visit: Yes Status: Acute Code(s): D69.3 - IMMUNE THROMBOCYTOPENIC PURPURA SNOMED Code(s): 61832224 (3) Myopathy Current Visit: Yes Status: Acute Code(s): G72.9 - MYOPATHY, UNSPECIFIED SNOMED Code(s): 45336727 (4) Thrombocytopenia Current Visit: Yes Status: Acute Code(s): D69.6 - THROMBOCYTOPENIA, UNSPECIFIED SNOMED Code(s): 954717126 Plan: impression: 1. Medical debility. 2. Myopathy. 3. ITP. 4. Thrombocytopenia. 5. Hypertension. 6. dyslipidemia. 7. Renal disease with history of renal transplant. 8. Diabetes. 9. Hypothyroid. 10. Atrial fibrillation. Comments and plan: At this time OT ongoing in PT prescribed. Patient appears of just been admitted yesterday. Anticipate that debility has not really had opportunity set in as patient has been here for approximately 24 hours onlyand most likely will not require inpatient rehab. We'll continue to follow with yourself though for possible changes in this.
[2019-12-19 17:29] LABS: Glucose,Whole Blood 251 mg/dL (75-99)
[2019-12-19] MEDS: SODIUM CHLORIDE 0.9% 1,000 ML IV SCH (17:39)
[2019-12-19 20:03] LABS: Glucose,Whole Blood 344 mg/dL (75-99)
[2019-12-19] MEDS: ATORVASTATIN 20 MG TAB PO SCH (21:37)
[2019-12-19] MEDS: AMITRIPTYLINE HCL 50 MG TAB PO SCH (21:37)
[2019-12-19] MEDS: INSULIN DETEMIR (LEVEMIR) 100 UNIT/ML SYR SQ SCH (21:38)
[2019-12-19] MEDS: clonazePAM 1 MG TAB PO PRN (21:39)
[2019-12-19] MEDS: traZODone HCL 100 MG TAB PO SCH (21:39)
[2019-12-20] MEDS: LEVOTHYROXINE 25 MCG TAB PO SCH (05:30)
[2019-12-20] MEDS: SODIUM CHLORIDE 0.9% 1,000 ML IV SCH (05:30)
[2019-12-20 06:51] LABS: Anisocytosis Slight; Basophils % (A) 0 %; Eosinophils % (A) 0 %; HCT 41.9 % (39.0-53.0); HGB 13.2 gm/dL (13.0-17.5); Lymphocytes # (A) 0.4 k/uL (1.0-4.8); Lymphocytes % (A) 4 %; MCH 28.4 pg (25.0-35.0); MCHC 31.4 g/dL (31.0-37.0); MCV 90.7 fL (80.0-100.0); Mean Platelet Volume 9.9; Monocytes # (A) 0.5 k/uL (0-1.0); Monocytes % (A) 4 %; Neutrophils # (A) 9.5 k/uL (1.3-7.7); Neutrophils % (A) 91 %; RBC 4.63 m/uL (4.30-5.90); RDW 17.2 % (11.5-15.5); WBC 10.4 k/uL (3.8-10.6)
[2019-12-20 07:01] LABS: Calcium 7.7 mg/dL (8.4-10.2); Potassium 4.1 mmol/L (3.5-5.1)
[2019-12-20 07:10] LABS: Glucose,Whole Blood 201 mg/dL (75-99)
[2019-12-20 07:20] LABS: Platelet Count 17 k/uL (150-450)
[2019-12-20] MEDS: INSULIN ASPART (NovoLOG) 100 UNIT/ML VIAL SQ SCH ×4 (08:01→20:40)
[2019-12-20] MEDS: VIT A,C & E-LUTEIN-MINERALS 1 EACH TAB PO SCH (08:02)
[2019-12-20] MEDS: DULoxetine HCL 60 MG CAPSULE.DR PO SCH (08:02)
[2019-12-20] MEDS: MULTIVITAMINS, THERA 1 EACH TAB PO SCH (08:02)
[2019-12-20] MEDS: FINASTERIDE 5 MG TAB PO SCH (08:02)
[2019-12-20] MEDS: amLODIPine 5 MG TAB PO SCH (08:02)
[2019-12-20] MEDS: predniSONE 20 MG TAB PO SCH (08:03)
[2019-12-20] MEDS: hydrALAZINE HCL 50 MG TAB PO SCH ×3 (08:03→17:59)
[2019-12-20] MEDS: METOPROLOL TARTRATE 25 MG TAB PO SCH ×2 (08:03→20:40)
[2019-12-20] MEDS: PANTOPRAZOLE 40 MG TABLET PO SCH (08:03)
[2019-12-20] MEDS: NYSTATIN 100,000 UNIT/ML SUSP 500,000 UNIT/5 ML CUP PO SCH ×4 (08:03→22:30)
[2019-12-20] MEDS: TAMSULOSIN 0.4 MG CAP.ER.24H PO SCH (08:03)
[2019-12-20] MEDS: MAGNESIUM OXIDE 400 MG TAB PO SCH (08:03)
[2019-12-20 11:21] LABS: Glucose,Whole Blood 259 mg/dL (75-99)
--- NOTE | 2019-12-20 14:00 | P.NPCON ---
History of Present Illness - Reason for Consult chronic renal failure - History of Present Illness Reason for consultation: Kidney transplant management History of present illness: Patient is a 79-year-old male seen in renal consultation for renal transplant management. Patient received a donor renal allograft is [facility] in April 2003. Etiology is nephrosclerosis. In terms of immunosuppression, patient is currently maintained on high-dose prednisone for ITP. Prograf and CellCept are held. Patient presented to the hospital with generalized weakness. His platelet count was 5000 on admission and has received platelet transfusion this admission. Platelet count is 17,000 today. He admits to good urine output. No hematuria or dysuria. No vomiting or diarrhea.dose of prednisone has been decreased from 80 mg daily to 60 mg daily today. He also received rituximab 2 weeks ago for ITP with no response.blood pressure has been fairly stable this admission. Allograft function is stable as well. Creatinine 1.0 today. Denies any active bleeding. Hemoglobin stable. Vital signs are stable. General: The patient appeared well nourished and normally developed. HEENT: Head exam is unremarkable. Neck is without jugular venous distension. LUNGS: Lungs are clear to auscultation and percussion. Breath sounds decreased. HEART: Rate and Rhythm are regular. First and second heart sounds normal. No murmurs, rubs or gallops. ABDOMEN: Abdominal exam reveals normal bowel sounds. Non-tender and non- distended. EXTREMITITES: No clubbing, cyanosis, or edema. 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 History of Any Multi-Drug Resistant Organisms: None Reported Past Surgical History: Coronary Bypass/CABG, Orthopedic Surgery Additional Past Surgical History / Comment(s): kidney transplant, parathyoid surgery, knee Past Anesthesia/Blood Transfusion Reactions: No Reported Reaction Past Psychological History: Anxiety, Depression Smoking Status: Never smoker Past Alcohol Use History: Rare Past Drug Use History: None Reported - Past Family History Father Family Medical History: Deep Vein Thrombosis (DVT) Son(s) Family Medical History: Cancer Additional Family Medical History / Comment(s): Skin cancer. Medications and Allergies Home Medications Medication Instructions Recorded Confirmed Type Amitriptyline HCl [Elanal] 100 mg PO HS 02/09/17 12/18/19 History Finasteride [Proscar] 5 mg PO DAILY 02/09/17 12/18/19 History Magnesium Oxide [Mag-Ox] 250 mg PO DAILY 02/09/17 12/18/19 History Tamsulosin HCl [Flomax] 0.4 mg PO DAILY 02/09/17 12/18/19 History clonazePAM [KlonoPIN] 1 - 2 mg PO HS PRN 02/09/17 12/18/19 History DULoxetine HCL [Cymbalta] 120 mg PO DAILY 04/19/18 12/18/19 History Multivitamins, Thera [Multivitamin 1 tab PO DAILY 12/31/18 12/18/19 History (formulary)] Metoprolol Tartrate [Lopressor] 25 mg PO BID 01/03/19 12/18/19 History Atorvastatin Calcium [Lipitor] 20 mg PO HS 10/14/19 12/18/19 History traZODone HCL 100 mg PO HS 10/14/19 12/18/19 History Insulin Glargine [Lantus] 27 unit SQ AC-SUPPER #0 10/18/19 12/19/19 Rx Pantoprazole [Protonix] 40 mg PO DAILY #30 tablet.dr 10/18/19 12/18/19 Rx Calcium Glutamate 500mg 1,000 mg PO DAILY 12/18/19 12/18/19 History INSULIN LISPRO (humaLOG) [humaLOG] 27 unit INJ ACHS 12/18/19 12/19/19 History Levothyroxine Sodium [Levoxyl] 25 mcg PO QAM 12/18/19 12/18/19 History Nystatin 100,000 Unit/ml Susp 4 ml PO QID 12/18/19 12/18/19 History [Mycostatin Oral Susp] Vit C/E/Zn/Coppr/Lutein/Zeaxan 1 cap PO DAILY 12/18/19 12/18/19 History [Preservision Areds 2 Softgel] amLODIPine [Norvasc] 5 mg PO DAILY 12/18/19 12/18/19 History hydrALAZINE HCL [Apresoline] 50 mg PO AC-TID 12/18/19 12/18/19 History predniSONE [Deltasone] 80 mg PO DAILY 12/18/19 12/18/19 History Allergies Allergy/AdvReac Type Severity Reaction Status Date / Time morphine Allergy Itching Verified 12/18/19 22:38 Physical Exam Vitals: Vital Signs Temp Pulse Pulse Resp BP BP BP 12/20/19 11:15 98.2 F 76 16 144/89 12/20/19 04:27 97.7 F 90 16 160/87 12/19/19 19:57 98.2 F 90 18 152/78 12/19/19 17:00 97.6 F 92 17 130/81 Pulse Ox 12/20/19 11:15 95 12/20/19 04:27 95 12/19/19 19:57 96 12/19/19 17:00 95 Intake and Output 12/19/19 12/20/19 12/20/19 22:59 06:59 14:59 Intake Total 925 800 500 Output Total 500 676 500 Balance 425 124 0 Intake: Intake, IV Titration 200 400 500 Amount Sodium Chloride 0.9% 1, 200 400 500 000 ml @ 50 mls/hr IV . Q20H [facility] Rx#:[id number] Oral 420 400 Blood Product 305 Platelet Irr Pheresis 2 305 Acda Unit [id number] Output: Urine 500 676 500 Other: Voiding Method Toilet Urinal # Bowel Movements 1 Results - Lab Results Most recent lab results Calcium 7.7 mg/dL (8.4-10.2) L 12/20/19 06:40 Phosphorus 4.1 mg/dL (2.5-4.5) 12/18/19 12:35 Magnesium 2.0 mg/dL (1.6-2.3) 12/18/19 12:35 12/20/19 06:40 12/20/19 06:40 Assessment and Plan Plan: assessment: 1. 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 Baseline creatinine near 1. 2. Thrombocytopenia secondary to ITP. Intend on prednisone. 3. Hypertension with chronic kidney disease. Controlled. 4. Insulin-dependent diabetes mellitus. 5. 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 Baseline creatinine near 1. plan: Continue to hold CellCept due to thrombocytopenia. Prednisone decreased from 80 mg to 60 mg daily today. This will be further tapered by hematology over the next 6-8 weeks. Start Prograf 1 mg daily starting tomorrow. This will be further increased as the prednisone is tapered. Avoid nephrotoxins. Continue to monitor renal function and urine output. Thank you for the consultation. I will continue to follow the patient with you during his hospital stay.
--- NOTE | 2019-12-20 16:01 | P.PN ---
Subjective Progress Note Date: 12/20/19 Principal diagnosis: Refractory Thrombocytopenia Platelets are improved today, 17K, no signs of bleeding Objective - Vital Signs Vital signs: Vital Signs Temp 98.2 F 12/20/19 11:15 Pulse 76 12/20/19 11:15 Resp 16 12/20/19 11:15 BP 144/89 12/20/19 11:15 Pulse Ox 95 12/20/19 11:15 Intake & Output 12/19/19 12/20/19 12/20/19 18:59 06:59 18:59 Intake Total 305 1420 500 Output Total 1176 500 Balance 305 244 0 Intake: Intake, IV Titration 600 500 Amount Sodium Chloride 0.9% 1, 600 500 000 ml @ 50 mls/hr IV . Q20H [facility] Rx#:[id number] Oral 820 Blood Product 305 Platelet Irr Pheresis 2 305 Acda Unit [id number] Output: Urine 1176 500 Other: Voiding Method Toilet Toilet Urinal # Voids 2 # Bowel Movements 1 - Exam - Constitutional General appearance: no acute distress - EENT Eyes: EOMI, PERRLA ENT: hearing grossly normal, normal oropharynx - Neck Neck: no lymphadenopathy Thyroid: bilateral: normal size - Respiratory Respiratory: bilateral: CTA - Cardiovascular Rhythm: regular Heart sounds: normal: S1, S2 - Gastrointestinal General gastrointestinal: normal bowel sounds, soft - Integumentary Integumentary: normal - Neurologic Neurologic: CNII-XII intact - Musculoskeletal Weakness more prominent in pelvic girdle muscles, and proximal lower extremity Musculoskeletal: generalized weakness, strength equal bilaterally - Psychiatric Psychiatric: A&O x's 3, appropriate affect - Labs CBC & Chem 7: 12/20/19 06:40 12/20/19 06:40 Labs: Abnormal Lab Results - Last 24 Hours (Table) 12/19/19 12/19/19 12/20/19 Range/Units 17:25 19:56 06:40 RDW 17.2 H (11.5-15.5) % Plt Count 17 L* D (150-450) k/uL Neutrophils # 9.5 H (1.3-7.7) k/uL Lymphocytes # 0.4 L (1.0-4.8) k/uL Sodium (137-145) mmol/L BUN (9-20) mg/dL Glucose (74-99) mg/dL POC Glucose (mg/dL) 251 H 344 H (75-99) mg/dL Calcium (8.4-10.2) mg/dL 12/20/19 12/20/19 12/20/19 Range/Units 06:40 06:49 11:20 RDW (11.5-15.5) % Plt Count (150-450) k/uL Neutrophils # (1.3-7.7) k/uL Lymphocytes # (1.0-4.8) k/uL Sodium 134 L (137-145) mmol/L BUN 25 H (9-20) mg/dL Glucose 195 H (74-99) mg/dL POC Glucose (mg/dL) 201 H 259 H (75-99) mg/dL Calcium 7.7 L (8.4-10.2) mg/dL Microbiology - Last 24 Hours (Table) 12/18/19 17:16 Blood Culture - Preliminary Blood No Growth after 24 hours Assessment and Plan Plan: Steroid Induced Myopathy - No evidence of Rhabdomyelitis - PT/OT to continue, likely through IPR - Wean Steroids as refractory for ITP Idiopathic thrombocytopenia purpura - He has not responded to high dose Rituxan or steroids - Will trial promacta, may start in rehab if able to obtain - Close monitoring of bloodwork and improvement on Promacta, if continued less than satisfactory response will consider further evaluation History of renal transplant - Have discussed with patient and nephrology and lina plan to restart on his immunosuppressant therapy - Continued monitoring of CBC Physician Attest: I have completed the full history and physical and agree with above dictation, dictated as ascribe
[2019-12-20 16:58] LABS: Glucose,Whole Blood 225 mg/dL (75-99)
--- NOTE | 2019-12-20 17:16 | P.PN ---
Subjective Progress Note Date: 12/20/19 This is a 79-year-old gentleman recently diagnosed with suspected ITP, history of chronic thrombocytopenia, kidney transplant, atrial fibrillation, diabetes mellitus, hyperlipidemia, hypertension, chronic renal failure, kidney transplant, hypothyroidism, parathyroid surgery, melanoma, prostate cancer, CAD, CABG,, anxiety, depression and multiple other medical issues admitted with gradually worsening increased fatigue, muscle achiness, bruising. Patient had been advised by Dr. Winn, Oncologist to come to the ER for further evaluation. Patient maintained on high-dose steroids, Rituxan outpatient. Denies spontaneous bleeding. No blood in urine, not in bowel movement, no hemoptysis, no hematochezia. Denies fevers, cough, chills, abdominal pain, nausea , vomiting or diarrhea. Denies chest pain, palpitations. EKG reported atrial flutter, troponin pending. Platelets on admission 5, elevated WBC of 15.2, hemoglobin stable 15.6, currently 13.5, neutrophils 89, INR 0.9, sodium 132, now up to 136, BUN 31, creatinine 1.16, lactic acid 2, calcium 8.2, potassium and magnesium within normal limits, coronavirus not detected, creatinine kinase less than 20, total protein 5.5, albumin 3.1. Afebrile,VSS, maintaining O2 sats in the low 90s on room air. Received IV fluid hydration, platelets. Oncology consulted. 12/20/2019 denies any active bleeding, denies hematuria. hemoglobin 13.2, platel ets up to 17. Creatinine 1 . Vital signs stable. evaluated by Dr. Winn ,nephrology and Dr. Tomlinson with recommendations noted and appreciated. Objective - Vital Signs Vital signs: Vital Signs Temp 98.2 F 12/20/19 11:15 Pulse 76 12/20/19 11:15 Resp 16 12/20/19 11:15 BP 144/89 12/20/19 11:15 Pulse Ox 95 12/20/19 11:15 Intake & Output 12/19/19 12/20/19 12/20/19 18:59 06:59 18:59 Intake Total 305 1420 500 Output Total 1176 500 Balance 305 244 0 Intake: Intake, IV Titration 600 500 Amount Sodium Chloride 0.9% 1, 600 500 000 ml @ 50 mls/hr IV . Q20H [facility] Rx#:[id number] Oral 820 Blood Product 305 Platelet Irr Pheresis 2 305 Acda Unit [id number] Output: Urine 1176 500 Other: Voiding Method Toilet Toilet Urinal # Voids 2 # Bowel Movements 1 - Exam VITAL SIGNS: As above GENERAL: Sitting up in bed, no acute distress HEENT: Conjunctivae normal. eyes normal. Faint petechiae in roof of mouth, Oral mucosa moist NECK: No JVD. No thyroid enlargement. No LNs CARDIOVASCULAR: S1, S2 irregular.. No murmur RESPIRATION: Breath sounds diminished in the bases. No rhonchi or crackles. No bronchial breathing. ABDOMEN: Soft, nontender . No guarding. no masses palpable. No ascites, No hepatosplenomegaly.Bowel sounds heard. LEGS: No edema. no swelling. SKIN: warm, dry. Minimal Petechiae bilateral lower extremities. Multiple bruises upper and lower extremities PSYCHIATRY: Alert and oriented X3, mood and affect normal. NERVOUS SYSTEM: Cranial N 2-12 grossly normal. Moves all 4 limbs. No focal deficits. Strength and sensation grossly intact. - Labs CBC & Chem 7: 12/20/19 06:40 12/20/19 06:40 Labs: Abnormal Lab Results - Last 24 Hours (Table) 12/19/19 12/19/19 12/20/19 Range/Units 17:25 19:56 06:40 RDW 17.2 H (11.5-15.5) % Plt Count 17 L* D (150-450) k/uL Neutrophils # 9.5 H (1.3-7.7) k/uL Lymphocytes # 0.4 L (1.0-4.8) k/uL Sodium (137-145) mmol/L BUN (9-20) mg/dL Glucose (74-99) mg/dL POC Glucose (mg/dL) 251 H 344 H (75-99) mg/dL Calcium (8.4-10.2) mg/dL 12/20/19 12/20/19 12/20/19 Range/Units 06:40 06:49 11:20 RDW (11.5-15.5) % Plt Count (150-450) k/uL Neutrophils # (1.3-7.7) k/uL Lymphocytes # (1.0-4.8) k/uL Sodium 134 L (137-145) mmol/L BUN 25 H (9-20) mg/dL Glucose 195 H (74-99) mg/dL POC Glucose (mg/dL) 201 H 259 H (75-99) mg/dL Calcium 7.7 L (8.4-10.2) mg/dL Microbiology - Last 24 Hours (Table) 12/18/19 17:16 Blood Culture - Preliminary Blood No Growth after 24 hours Assessment and Plan Assessment: Generalized weakness with increased fatigue, bruising, petechiae, possible steroid myopathy, 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 Mild Acute renal failure secondary to dehydration Chronic atrial fibrillation Diabetes mellitus Hypertension Hyperlipidemia Chronic renal failure III with history of renal transplant, baseline creatinine 1.4 CAD, history of CABG Anxiety Depression History of prostate cancer, being followed by urology outpatient. Plan: Continue on current medication regime ,monitoring and symptomatic treatment. Slow steroid weaning as per oncology. PT/OT. Preauthorization pending for inpatient rehab. Evaluated by Dr. Tomlinson for [facility] inpatient rehab. with further recommendations pending .Resume immunosuppressant therapy. Dr. Winn/oncology trialing Promacta-possibly on Monday. Continue close monitoring of platelets, renal function, electrolytes with repeat labs ordered for a.m. Discharge planning in progress prognosis pending authorization. guarded given multiple complex medical issues. The impression and plan of care has been dictated as directed. : I performed a history and examination of this patient, discussed the same with the dictator. I agree with the dictator's note ,documented as a scribe. Any additional findings or plans will be noted.
[2019-12-20 19:57] LABS: Glucose,Whole Blood 327 mg/dL (75-99)
[2019-12-20] MEDS: traZODone HCL 100 MG TAB PO SCH (20:39)
[2019-12-20] MEDS: AMITRIPTYLINE HCL 50 MG TAB PO SCH (20:40)
[2019-12-20] MEDS: ATORVASTATIN 20 MG TAB PO SCH (20:40)
[2019-12-20] MEDS: INSULIN DETEMIR (LEVEMIR) 100 UNIT/ML SYR SQ SCH (20:42)
[2019-12-21] MEDS: LEVOTHYROXINE 25 MCG TAB PO SCH (05:47)
[2019-12-21] MEDS: SODIUM CHLORIDE 0.9% 1,000 ML IV SCH (06:02)
[2019-12-21 07:11] LABS: Glucose,Whole Blood 214 mg/dL (75-99)
[2019-12-21] MEDS: amLODIPine 5 MG TAB PO SCH (07:58)
[2019-12-21] MEDS: DULoxetine HCL 60 MG CAPSULE.DR PO SCH (07:58)
[2019-12-21] MEDS: FINASTERIDE 5 MG TAB PO SCH (07:58)
[2019-12-21] MEDS: predniSONE 20 MG TAB PO SCH (07:58)
[2019-12-21] MEDS: MULTIVITAMINS, THERA 1 EACH TAB PO SCH (07:58)
[2019-12-21] MEDS: hydrALAZINE HCL 50 MG TAB PO SCH ×3 (07:59→16:39)
[2019-12-21] MEDS: METOPROLOL TARTRATE 25 MG TAB PO SCH ×2 (07:59→21:04)
[2019-12-21] MEDS: PANTOPRAZOLE 40 MG TABLET PO SCH (07:59)
[2019-12-21] MEDS: TAMSULOSIN 0.4 MG CAP.ER.24H PO SCH (07:59)
[2019-12-21] MEDS: NYSTATIN 100,000 UNIT/ML SUSP 500,000 UNIT/5 ML CUP PO SCH ×4 (07:59→22:21)
[2019-12-21] MEDS: MAGNESIUM OXIDE 400 MG TAB PO SCH (07:59)
[2019-12-21] MEDS: TACROLIMUS 1 MG CAP PO SCH (08:00)
[2019-12-21] MEDS: VIT A,C & E-LUTEIN-MINERALS 1 EACH TAB PO SCH (08:00)
[2019-12-21] MEDS: INSULIN ASPART (NovoLOG) 100 UNIT/ML VIAL SQ SCH ×4 (08:01→21:05)
[2019-12-21 11:26] LABS: Glucose,Whole Blood 245 mg/dL (75-99)
[2019-12-21 11:59] LABS: Anisocytosis Slight; Basophils % (A) 0 %; Eosinophils # (A) 0.1 k/uL (0-0.7); Eosinophils % (A) 0 %; HCT 43.1 % (39.0-53.0); HGB 14.5 gm/dL (13.0-17.5); Lymphocytes # (A) 0.3 k/uL (1.0-4.8); Lymphocytes % (A) 3 %; MCH 30.7 pg (25.0-35.0); MCHC 33.6 g/dL (31.0-37.0); MCV 91.2 fL (80.0-100.0); Mean Platelet Volume 9.6; Monocytes # (A) 0.5 k/uL (0-1.0); Monocytes % (A) 4 %; Neutrophils % (A) 92 %; RBC 4.73 m/uL (4.30-5.90); RDW 17.1 % (11.5-15.5)
[2019-12-21 12:19] LABS: Platelet Count 22 k/uL (150-450)
--- NOTE | 2019-12-21 13:13 | PN ---
PROGRESS NOTE Patient is seen for followup for posttransplant care. He is currently admitted for severe thrombocytopenia. He was maintained on high-dose prednisone which is now decreased. Serum platelet count is up from 5 on admission to 22 now. Serum creatinine remains stable at 1.0. EXAMINATION: Today blood pressure was 150/96, heart rate 80 per minute, patient is afebrile. Examination of the heart S1, S2. Examination of lungs, bilateral breath sounds are heard. Abdomen is soft, nontender. Examination of lower extremities shows no significant edema. 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 LABS: Show sodium 134, potassium 4.1, chloride 104, BUN 25, serum creatinine 1.0, platelet count 17,000. ASSESSMENT: 1. Status post donor renal allograft in 2002. Baseline creatinine 1, currently stable. Maintained on prednisone. Prograf was just restarted. CellCept remains on hold. 2. Thrombocytopenia secondary to idiopathic thrombocytopenic purpura, maintained on prednisone. 3. Hypertension with chronic kidney disease, currently controlled. 4. 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 PLAN: Continue to hold off on CellCept. Maintain low-dose Prograf. Repeat labs in a.m. MMODL / IJN: [id number] / [facility]
--- NOTE | 2019-12-21 16:46 | PN ---
PROGRESS NOTE DATE OF SERVICE: 12/21/2019 I am covering for Dr. Rosenberg. This 79-year-old gentleman who was diagnosed with ITP, had generalized weakness and increased fatigue also. The patient also possibly had a steroid myopathy. The patient was admitted and the platelets found to be 5. Two units transfusion has been given. Platelets improved and is at 22 at this time. No spontaneous bleeding was noted. Patient is being closely monitored. Coronavirus test was negative. Troponin 0.023. PAST MEDICAL HISTORY: Reviewed. REVIEW OF SYSTEMS: CARDIOVASCULAR SYSTEM: No angina. RESPIRATORY: As mentioned earlier. GI: No nausea or vomiting. : No dysuria. NERVOUS SYSTEM: No numbness or weakness. ALLERGY/IMMUNOLOGY: No asthma or hay fever. HEMATOLOGY/ONCOLOGY: As mentioned earlier. PHYSICAL EXAMINATION: Alert and oriented x3. Pulse is 80, blood pressure 150/90, respirations 16, temperature 97.8, pulse ox 94% on room air. skin: HEENT: Conjunctivae normal. Oral mucosa moist. NECK: No jugular venous distention. No lymph node enlargement. CARDIOVASCULAR: S1, S2. RESPIRATORY: Diminished breath sounds at the bases. No rhonchi, no crackles. ABDOMEN: Soft, nontender. LEGS: No edema, no swelling. NERVOUS SYSTEM: No focal deficits. LABS: WBC ntd, hemoglobin 14.5, platelets are 22. PT/INR noted. Glucose noted. ASSESSMENT: 1. Generalized weakness and fatigue post steroid myopathy. 2. 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 3. Mild acute renal failure secondary to dehydration, acute tubular necrosis. 4. Chronic atrial fibrillation. 5. Diabetes mellitus type 2. 6. Hypertension. 7. Hyperlipidemia. 8. Chronic renal failure, stage 3. 9. Hyponatremia. 10.Coronary artery disease, coronary artery bypass graft. 11.Anxiety. 12.Depression. 13.History of prostate cancer, followed by Urology as an outpatient. RECOMMENDATIONS AND DISCUSSION: In this 79-year-old gentleman who presented with multiple complex medical issues, we will monitor the patient closely, continue the current medication, monitor the platelets closely, avoid antiplatelet agents at this time. Otherwise, 2 units has been given platelet transfusion. Monitor blood sugars closely. The patient is on Levemir 27 units daily at this time as well as p.o. prednisone per Hematology/Oncology also. Guarded prognosis. Further recommendations to follow. MMODL / IJN: [id number] / [facility]
[2019-12-21 17:22] LABS: Glucose,Whole Blood 211 mg/dL (75-99)
[2019-12-21 20:28] LABS: Glucose,Whole Blood 220 mg/dL (75-99)
[2019-12-21] MEDS: ATORVASTATIN 20 MG TAB PO SCH (21:04)
[2019-12-21] MEDS: INSULIN DETEMIR (LEVEMIR) 100 UNIT/ML SYR SQ SCH (21:05)
[2019-12-21] MEDS: AMITRIPTYLINE HCL 50 MG TAB PO SCH (21:05)
[2019-12-21] MEDS: traZODone HCL 100 MG TAB PO SCH (21:05)
[2019-12-22] MEDS: LEVOTHYROXINE 25 MCG TAB PO SCH (05:58)
[2019-12-22] MEDS: SODIUM CHLORIDE 0.9% 1,000 ML IV SCH (06:08)
[2019-12-22 07:05] LABS: Glucose,Whole Blood 56 mg/dL (75-99)
[2019-12-22 07:26] LABS: Glucose,Whole Blood 89 mg/dL (75-99)
[2019-12-22] MEDS: INSULIN ASPART (NovoLOG) 100 UNIT/ML VIAL SQ SCH ×5 (07:35→20:51)
[2019-12-22] MEDS: FINASTERIDE 5 MG TAB PO SCH (07:41)
[2019-12-22] MEDS: predniSONE 20 MG TAB PO SCH (07:41)
[2019-12-22] MEDS: METOPROLOL TARTRATE 25 MG TAB PO SCH ×2 (07:42→20:51)
[2019-12-22] MEDS: amLODIPine 5 MG TAB PO SCH (07:42)
[2019-12-22] MEDS: DULoxetine HCL 60 MG CAPSULE.DR PO SCH (07:42)
[2019-12-22] MEDS: VIT A,C & E-LUTEIN-MINERALS 1 EACH TAB PO SCH (07:42)
[2019-12-22] MEDS: MAGNESIUM OXIDE 400 MG TAB PO SCH (07:42)
[2019-12-22] MEDS: hydrALAZINE HCL 50 MG TAB PO SCH ×3 (07:42→17:37)
[2019-12-22] MEDS: PANTOPRAZOLE 40 MG TABLET PO SCH (07:43)
[2019-12-22] MEDS: NYSTATIN 100,000 UNIT/ML SUSP 500,000 UNIT/5 ML CUP PO SCH ×4 (07:43→20:51)
[2019-12-22] MEDS: MULTIVITAMINS, THERA 1 EACH TAB PO SCH (07:43)
[2019-12-22] MEDS: TACROLIMUS 1 MG CAP PO SCH (07:43)
[2019-12-22] MEDS: TAMSULOSIN 0.4 MG CAP.ER.24H PO SCH (07:43)
[2019-12-22 08:39] LABS: Anisocytosis Slight; Basophils % (A) 0 %; Eosinophils # (A) 0.1 k/uL (0-0.7); Eosinophils % (A) 1 %; HCT 47.1 % (39.0-53.0); HGB 14.9 gm/dL (13.0-17.5); Lymphocytes # (A) 1.2 k/uL (1.0-4.8); Lymphocytes % (A) 10 %; MCH 28.9 pg (25.0-35.0); MCHC 31.7 g/dL (31.0-37.0); MCV 91.2 fL (80.0-100.0); Mean Platelet Volume 10.4; Monocytes # (A) 0.6 k/uL (0-1.0); Monocytes % (A) 5 %; Neutrophils # (A) 10.2 k/uL (1.3-7.7); Neutrophils % (A) 84 %; RBC 5.17 m/uL (4.30-5.90); WBC 12.2 k/uL (3.8-10.6)
[2019-12-22 08:57] LABS: Platelet Count 26 k/uL (150-450)
[2019-12-22 11:21] LABS: Glucose,Whole Blood 181 mg/dL (75-99)
--- NOTE | 2019-12-22 16:23 | PN ---
PROGRESS NOTE Patient is seen for followup for posttransplant care. He is admitted to the hospital with thrombocytopenia, currently doing well. Serum platelet count has increased to 26,000 now from 5 on initial admission. PHYSICAL EXAMINATION: On examination today, blood pressure was 115/72, heart rate 85 per minute, patient is afebrile. Examination of the heart S1, S2. Examination of the lungs, decreased breath sounds at the bases. Abdomen is soft, nontender. Examination of lower extremities shows no evidence of edema. 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 LABS: Show hemoglobin of 14.9, serum creatinine was 1.0 on 12/20/2019. ASSESSMENT: 1. Status post donor renal transplant in 2002, baseline creatinine of 1, maintained on prednisone, restarted on low-dose Prograf, CellCept remains on hold. 2. Thrombocytopenia secondary to idiopathic thrombocytopenic purpura, maintained on steroids, currently improving. 3. Hypertension with chronic kidney disease, controlled. 4. 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 PLAN: Check labs in a.m. Continue current dose of Prograf. MMODL / IJN: [id number] /
--- NOTE | 2019-12-22 17:08 | PN ---
PROGRESS NOTE DATE OF SERVICE: 12/22/2019 I am covering for Dr. Rosenberg. This 79-year-old gentleman who was admitted with generalized weakness also had possibly ITP. The platelets improved to 26 after platelet transfusion. No chest pain. No palpitations. No fever. HEMATOLOGY/ONCOLOGY following the patient closely. PHYSICAL EXAMINATION: Alert and oriented x3. Pulse is 85. Blood pressure 116/70, respirations 16, temp 98.3, pulse ox 98% on room air. HEENT: Conjunctive normal. NECK: No JVD. CARDIOVASCULAR: S1, S2 muffled. RESPIRATION: Breath sounds diminished in the bases. No rhonchi. No crackles. ABDOMEN is soft, nontender. LEGS are no edema. No swelling. LABS: WBC 12.2, platelets are 26. ASSESSMENT: 1. Generalized weakness and fatigue on rest, possibly steroid myopathy. 2. Idiopathic thrombocytopenia purpura with severe thrombocytopenia on high-dose steroids, Rituxan, status post platelet transfusion. 3. Mild acute renal failure secondary dehydration acute tubular necrosis. 4. Chronic atrial fibrillation. 5. Diabetes mellitus type 2. 6. Hypertension. 7. Hyperlipidemia. 8. Chronic renal failure stage 3, baseline. 9. Hyponatremia. 10.Coronary artery disease/coronary artery bypass grafting. 11.Anxiety. 12.Depression. 13.History of prostate cancer, followed by Urology as an outpatient. RECOMMENDATIONS AND DISCUSSION: Continue current medical management and symptomatic treatment. Monitor the platelets closely. Platelet transfusion has been given. Otherwise, continue rest of medications. Discussed with the patient at length. Dr. Rosenberg will follow. MMODL / IJN: [id number] /
[2019-12-22 17:21] LABS: Glucose,Whole Blood 240 mg/dL (75-99)
[2019-12-22 20:47] LABS: Glucose,Whole Blood 330 mg/dL (75-99)
[2019-12-22] MEDS: AMITRIPTYLINE HCL 50 MG TAB PO SCH (20:50)
[2019-12-22] MEDS: ATORVASTATIN 20 MG TAB PO SCH (20:50)
[2019-12-22] MEDS: traZODone HCL 100 MG TAB PO SCH (20:51)
[2019-12-22] MEDS: INSULIN DETEMIR (LEVEMIR) 100 UNIT/ML SYR SQ SCH (20:51)
[2019-12-22] MEDS: clonazePAM 1 MG TAB PO PRN (20:56)
[2019-12-23] MEDS: SODIUM CHLORIDE 0.9% 1,000 ML IV SCH ×2 (01:10→16:10)
[2019-12-23] MEDS: LEVOTHYROXINE 25 MCG TAB PO SCH (06:04)
[2019-12-23 07:28] LABS: Anisocytosis Slight; Basophils % (A) 0 %; Eosinophils % (A) 0 %; HCT 45.9 % (39.0-53.0); HGB 14.5 gm/dL (13.0-17.5); Lymphocytes # (A) 0.6 k/uL (1.0-4.8); Lymphocytes % (A) 5 %; MCH 28.4 pg (25.0-35.0); MCHC 31.5 g/dL (31.0-37.0); MCV 90.1 fL (80.0-100.0); Mean Platelet Volume 11.1; Monocytes # (A) 0.5 k/uL (0-1.0); Monocytes % (A) 4 %; Neutrophils % (A) 90 %; RDW 16.9 % (11.5-15.5); WBC 12.1 k/uL (3.8-10.6)
[2019-12-23 07:31] LABS: Platelet Count 19 k/uL (150-450)
[2019-12-23 07:33] LABS: Glucose,Whole Blood 145 mg/dL (75-99)
[2019-12-23 07:48] LABS: Calcium 8.3 mg/dL (8.4-10.2); Potassium 3.9 mmol/L (3.5-5.1)
[2019-12-23] MEDS: amLODIPine 5 MG TAB PO SCH (08:57)
[2019-12-23] MEDS: INSULIN ASPART (NovoLOG) 100 UNIT/ML VIAL SQ SCH ×7 (08:57→21:11)
[2019-12-23] MEDS: predniSONE 20 MG TAB PO SCH (08:57)
[2019-12-23] MEDS: DULoxetine HCL 60 MG CAPSULE.DR PO SCH (08:57)
[2019-12-23] MEDS: hydrALAZINE HCL 50 MG TAB PO SCH ×3 (08:57→17:49)
[2019-12-23] MEDS: MULTIVITAMINS, THERA 1 EACH TAB PO SCH (08:57)
[2019-12-23] MEDS: MAGNESIUM OXIDE 400 MG TAB PO SCH (08:58)
[2019-12-23] MEDS: METOPROLOL TARTRATE 25 MG TAB PO SCH ×2 (08:58→21:09)
[2019-12-23] MEDS: FINASTERIDE 5 MG TAB PO SCH (08:58)
[2019-12-23] MEDS: TAMSULOSIN 0.4 MG CAP.ER.24H PO SCH (08:58)
[2019-12-23] MEDS: PANTOPRAZOLE 40 MG TABLET PO SCH (08:58)
[2019-12-23] MEDS: VIT A,C & E-LUTEIN-MINERALS 1 EACH TAB PO SCH (09:06)
[2019-12-23] MEDS: NYSTATIN 100,000 UNIT/ML SUSP 500,000 UNIT/5 ML CUP PO SCH ×4 (09:06→22:31)
[2019-12-23] MEDS: TACROLIMUS 1 MG CAP PO SCH (09:06)
--- NOTE | 2019-12-23 11:54 | P.PN ---
Subjective Progress Note Date: 12/23/19 This is a 79-year-old gentleman recently diagnosed with suspected ITP, history of chronic thrombocytopenia, kidney transplant, atrial fibrillation, diabetes mellitus, hyperlipidemia, hypertension, chronic renal failure, kidney transplant, hypothyroidism, parathyroid surgery, melanoma, prostate cancer, CAD, CABG,, anxiety, depression and multiple other medical issues admitted with gradually worsening increased fatigue, muscle achiness, bruising. Patient had been advised by Dr. Winn, Oncologist to come to the ER for further evaluation. Patient maintained on high-dose steroids, Rituxan outpatient. Denies spontaneous bleeding. No blood in urine, not in bowel movement, no hemoptysis, no hematochezia. Denies fevers, cough, chills, abdominal pain, nausea , vomiting or diarrhea. Denies chest pain, palpitations. EKG reported atrial flutter, troponin pending. Platelets on admission 5, elevated WBC of 15.2, hemoglobin stable 15.6, currently 13.5, neutrophils 89, INR 0.9, sodium 132, now up to 136, BUN 31, creatinine 1.16, lactic acid 2, calcium 8.2, potassium and magnesium within normal limits, coronavirus not detected, creatinine kinase less than 20, total protein 5.5, albumin 3.1. Afebrile,VSS, maintaining O2 sats in the low 90s on room air. Received IV fluid hydration, platelets. Oncology consulted. 12/20/2019 denies any active bleeding, denies hematuria. hemoglobin 13.2, platel ets up to 17. Creatinine 1 . Vital signs stable. evaluated by Dr. Winn ,nephrology and Dr. Tomlinson with recommendations noted and appreciated. 12/23/2019 platelets decreased to 19, no spontaneous bleeding. Hemoglobin stable. Good appetite with no nausea or vomiting. Blood sugars currently contr olled, up into the 300s during the night. Steroids tapered to 60 mg daily. Reports minimal ambulation. IV fluids maintained at 50 miles per hour. Oncology previously discussed potentially starting patient on Promacta today. Afebrile. Denies chest pain, palpitations. Objective - Vital Signs Vital signs: Vital Signs Temp 97.2 F L 12/23/19 04:15 Pulse 77 12/23/19 04:15 Resp 20 12/23/19 04:15 BP 134/84 12/23/19 04:15 Pulse Ox 94 L 12/23/19 04:15 Intake & Output 12/22/19 12/23/19 12/23/19 18:59 06:59 18:59 Intake Total 300 Output Total 400 500 Balance -400 -200 Intake: Intake, IV Titration 300 Amount Sodium Chloride 0.9% 1, 300 000 ml @ 50 mls/hr IV . Q20H [facility] Rx#:[id number] Output: Urine 400 500 Other: Voiding Method Toilet Toilet Urinal Urinal # Voids 4 1 - Exam VITAL SIGNS: As above GENERAL: Sitting up in bed, no acute distress. HEENT: Conjunctivae normal. eyes normal. Scattered faint petechiae in roof of mouth, Oral mucosa moist NECK: No JVD. No thyroid enlargement. No LNs CARDIOVASCULAR: S1, S2 irregular.. No murmur RESPIRATION: Breath sounds diminished in the bases. No rhonchi or crackles. No bronchial breathing. ABDOMEN: Soft, nontender . No guarding. no masses palpable. No ascites, No hepatosplenomegaly.Bowel sounds heard. LEGS: No edema. no swelling. SKIN: warm, dry. Minimal scattered petechiae bilateral lower extremities. Multiple bruises upper and lower extremities PSYCHIATRY: Alert and oriented X3, mood and affect normal. NERVOUS SYSTEM: Cranial N 2-12 grossly normal. Moves all 4 limbs. No focal deficits. Strength and sensation grossly intact. - Labs CBC & Chem 7: 12/23/19 05:51 12/23/19 05:51 Labs: Abnormal Lab Results - Last 24 Hours (Table) 12/22/19 12/22/19 12/22/19 Range/Units 11:19 17:20 20:45 WBC (3.8-10.6) k/uL RDW (11.5-15.5) % Plt Count (150-450) k/uL Neutrophils # (1.3-7.7) k/uL Lymphocytes # (1.0-4.8) k/uL Sodium (137-145) mmol/L Carbon Dioxide (22-30) mmol/L BUN (9-20) mg/dL Glucose (74-99) mg/dL POC Glucose (mg/dL) 181 H 240 H 330 H (75-99) mg/dL Calcium (8.4-10.2) mg/dL 12/23/19 12/23/19 12/23/19 Range/Units 05:51 05:51 07:30 WBC 12.1 H (3.8-10.6) k/uL RDW 16.9 H (11.5-15.5) % Plt Count 19 L* (150-450) k/uL Neutrophils # 11.0 H (1.3-7.7) k/uL Lymphocytes # 0.6 L (1.0-4.8) k/uL Sodium 134 L (137-145) mmol/L Carbon Dioxide 32 H (22-30) mmol/L BUN 27 H (9-20) mg/dL Glucose 170 H (74-99) mg/dL POC Glucose (mg/dL) 145 H (75-99) mg/dL Calcium 8.3 L (8.4-10.2) mg/dL Microbiology - Last 24 Hours (Table) 12/18/19 17:16 Blood Culture - Preliminary Blood No Growth after 96 hours Assessment and Plan Assessment: Generalized weakness with increased fatigue, bruising, petechiae, possible steroid myopathy ITP with severe thrombocytopenia secondary to high-dose steroids, Rituxan, status post platelets transfusion. Mild Acute renal failure secondary to dehydration Chronic atrial fibrillation Diabetes mellitus 2 Hypertension Hyperlipidemia Chronic renal failure III with history of renal transplant, baseline creatinine 1.4 CAD, history of CABG Anxiety Depression History of prostate cancer, being followed by urology outpatient. Plan: Continue on current medication regime ,monitoring and symptomatic treatment. Discharge planning in progress with preauthorization pending for [facility] inpatient rehab.Steroid weaning as per oncology. PT/OT. Evaluated by Dr. Tomlinson for [facility] inpatient rehab. with further recommendations pending . Trialing of Promacta as being discussed per Dr. Winn/oncology. Close monitoring of platelets, renal function, electrolytes. Prognosis guarded given multiple complex medical issues. The impression and plan of care has been dictated as directed. : I performed a history and examination of this patient, discussed the same with the dictator. I agree with the dictator's note ,documented as a scribe. Any additional findings or plans will be noted.
[2019-12-23 12:36] LABS: Glucose,Whole Blood 158 mg/dL (75-99)
--- NOTE | 2019-12-23 13:19 | P.PN ---
Subjective Progress Note Date: 12/23/19 Principal diagnosis: thrombocytopenia In follow-up today patient is doing fairly well, bruising is persistent but not progressive, denies any hematomas, epistaxis, hemoptysis, blood in the urine or the stool. Objective - Vital Signs Vital signs: Vital Signs Temp 97.8 F 12/23/19 12:41 Pulse 72 12/23/19 12:41 Resp 18 12/23/19 12:41 BP 148/89 12/23/19 12:41 Pulse Ox 95 12/23/19 12:41 Intake & Output 12/22/19 12/23/19 12/23/19 18:59 06:59 18:59 Intake Total 300 Output Total 400 500 Balance -400 -200 Intake: Intake, IV Titration 300 Amount Sodium Chloride 0.9% 1, 300 000 ml @ 50 mls/hr IV . Q20H [facility] Rx#:[id number] Output: Urine 400 500 Other: Voiding Method Toilet Toilet Toilet Urinal Urinal Urinal # Voids 4 1 - Constitutional General appearance: Present: cooperative, no acute distress, obese - EENT Eyes: Present: anicteric sclerae, EOMI ENT: Present: hearing grossly normal - Respiratory Respiratory: bilateral: CTA - Cardiovascular Heart sounds: normal: S1, S2 - Gastrointestinal General gastrointestinal: Present: normal bowel sounds, soft - Integumentary Integumentary Comment(s): multiple ecchymosis, various stages of healing in known areas of trauma on the bilateral forearms - Musculoskeletal Musculoskeletal: Present: generalized weakness, strength equal bilaterally - Psychiatric Psychiatric: Present: A&O x's 3, appropriate affect, intact judgment & insight - Allied health notes Allied health notes reviewed: case management - Labs CBC & Chem 7: 12/23/19 05:51 12/23/19 05:51 Labs: Abnormal Lab Results - Last 24 Hours (Table) 12/22/19 12/22/19 12/23/19 Range/Units 17:20 20:45 05:51 WBC 12.1 H (3.8-10.6) k/uL RDW 16.9 H (11.5-15.5) % Plt Count 19 L* (150-450) k/uL Neutrophils # 11.0 H (1.3-7.7) k/uL Lymphocytes # 0.6 L (1.0-4.8) k/uL Sodium (137-145) mmol/L Carbon Dioxide (22-30) mmol/L BUN (9-20) mg/dL Glucose (74-99) mg/dL POC Glucose (mg/dL) 240 H 330 H (75-99) mg/dL Calcium (8.4-10.2) mg/dL 12/23/19 12/23/19 12/23/19 Range/Units 05:51 07:30 11:12 WBC (3.8-10.6) k/uL RDW (11.5-15.5) % Plt Count (150-450) k/uL Neutrophils # (1.3-7.7) k/uL Lymphocytes # (1.0-4.8) k/uL Sodium 134 L (137-145) mmol/L Carbon Dioxide 32 H (22-30) mmol/L BUN 27 H (9-20) mg/dL Glucose 170 H (74-99) mg/dL POC Glucose (mg/dL) 145 H 158 H (75-99) mg/dL Calcium 8.3 L (8.4-10.2) mg/dL Microbiology - Last 24 Hours (Table) 12/18/19 17:16 Blood Culture - Preliminary Blood No Growth after 96 hours Assessment and Plan (1) Myopathy Narrative/Plan: Suspect most likely related to steroid treatment. These are currently being weaned. Encouraged physical therapy Current Visit: Yes Status: Acute Priority: High Code(s): G72.9 - MYOPATHY, UNSPECIFIED SNOMED Code(s): 19062369 (2) Idiopathic thrombocytopenia purpura Narrative/Plan: patient has received high-dose steroid therapy as well as Rituxan 4 with no significant improvement in thrombocytopenia. Next therapy of choice is oral Promacta. Sample has been obtained for patient to begin treatment. This was given to nursing. Orders have been placed to begin treatment tomorrow morning. Patient was educated on Promacta. It is to be taken on an empty stomach-one hour before eating or 2 hours after eating. Also, it must be taken 2 hours before or 4 hours after consuming any calcium foods, fluids or medications. Patient was given drug monograph with specific instruction and highlighted info. Patient was given a list of some calcium rich foods that are not always considered (i.e. broccoli). It was decided upon the 6 AM would be the best time for the patient to take the medication. He understands that he is not able to eat or drink until 8 AM-this covers both the empty stomach as well as any concerns for consuming foods/fluids with calcium. Patient feels that he will be able to handle this regimen at home. All of his questions and concerns were answered to his satisfaction. Current Visit: Yes Status: Acute Priority: High Code(s): D69.3 - IMMUNE THROMBOCYTOPENIC PURPURA SNOMED Code(s): 36506732 (3) History of renal transplant Narrative/Plan: Nephrology is working with patient on steroid taper and resumption of immunosuppressive medications. Current Visit: Yes Status: Chronic Priority: Medium Code(s): Z94.0 - KIDNEY TRANSPLANT STATUS SNOMED Code(s): 195818050 Plan: bleeding precautions were also discussed. Time with Patient: Greater than 30 (40 minutes spent with patient, 50% of that time spent counseling and coordinating care)
--- NOTE | 2019-12-23 16:10 | PN ---
PROGRESS NOTE Patient is seen for followup for posttransplant care. His renal function has been at baseline. He is maintained on prednisone for ITP. Serum creatinine has been staying at 1. Current immunosuppression includes prednisone, low-dose Prograf was restarted and CellCept remains on hold. PHYSICAL EXAMINATION: On examination today, patient is afebrile. He is comfortable, alert, oriented x3. Blood pressure 134/84, heart rate 77 per minute. Examination of the heart S1, S2. Examination of the lungs, decreased breath sounds at bases. Abdomen is soft, nontender. Examination of the lower extremities shows no evidence of edema. INCINERATOR PLANT SUPERVISOR exam grossly intact. LABS: Show sodium 134, potassium 3.9, BUN 27, serum creatinine 1.0, hemoglobin 14.5 g/dL. ASSESSMENT: 1. Status post donor transplant in 2002. Renal function at baseline. Continue current immunosuppression. Continue to maintain CellCept on hold. 2. Thrombocytopenia from ITP. [place] [address] [place] [address] today. Currently maintained on steroids. 3. 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 4. Hypertension with CKD, currently controlled. 5. BPH maintained on Proscar. PLAN: We can discontinue the IV fluids. Patient is advised to maintain adequate oral intake. No other changes from nephrology standpoint. Continue prednisone. Asked for hematology. MMODL / IJN: [id number] /
[2019-12-23] MEDS: traMADol 50 MG TAB PO PRN ×2 (16:17→22:30)
[2019-12-23] MEDS ORDERED: PROMACTA 50 MG PO SCH (17:00)
[2019-12-23 17:13] LABS: Glucose,Whole Blood 265 mg/dL (75-99)
[2019-12-23 20:14] LABS: Glucose,Whole Blood 282 mg/dL (75-99)
[2019-12-23] MEDS: traZODone HCL 100 MG TAB PO SCH (21:08)
[2019-12-23] MEDS: AMITRIPTYLINE HCL 50 MG TAB PO SCH (21:09)
[2019-12-23] MEDS: ATORVASTATIN 20 MG TAB PO SCH (21:09)
[2019-12-23] MEDS: INSULIN DETEMIR (LEVEMIR) 100 UNIT/ML SYR SQ SCH (21:10)
[2019-12-23] MEDS: clonazePAM 1 MG TAB PO PRN (22:30)
[2019-12-24] MEDS: PROMACTA 50 MG PO SCH (05:24)
[2019-12-24] MEDS: LEVOTHYROXINE 25 MCG TAB PO SCH (05:30)
[2019-12-24] MEDS ORDERED: PROMACTA 50 MG PO SCH (06:00)
[2019-12-24 07:17] LABS: Glucose,Whole Blood 51 mg/dL (75-99)
[2019-12-24] MEDS: INSULIN ASPART (NovoLOG) 100 UNIT/ML VIAL SQ SCH ×5 (07:23→22:28)
[2019-12-24 07:37] LABS: Glucose,Whole Blood 67 mg/dL (75-99)
[2019-12-24 07:42] LABS: Glucose,Whole Blood 88 mg/dL (75-99)
[2019-12-24 08:06] LABS: Calcium 8.2 mg/dL (8.4-10.2); Potassium 4.1 mmol/L (3.5-5.1)
[2019-12-24 08:21] LABS: Anisocytosis Slight; Basophils # (A) 0.1 k/uL (0-0.2); Basophils % (A) 1 %; Eosinophils # (A) 0.1 k/uL (0-0.7); Eosinophils % (A) 0 %; HGB 14.9 gm/dL (13.0-17.5); Lymphocytes # (A) 1.3 k/uL (1.0-4.8); Lymphocytes % (A) 11 %; MCH 28.5 pg (25.0-35.0); MCHC 31.1 g/dL (31.0-37.0); MCV 91.6 fL (80.0-100.0); Mean Platelet Volume 9.6; Monocytes # (A) 0.7 k/uL (0-1.0); Monocytes % (A) 5 %; Neutrophils # (A) 10.1 k/uL (1.3-7.7); Neutrophils % (A) 82 %; RBC 5.24 m/uL (4.30-5.90); WBC 12.3 k/uL (3.8-10.6)
[2019-12-24 08:22] LABS: Platelet Count 23 k/uL (150-450)
[2019-12-24] MEDS: NYSTATIN 100,000 UNIT/ML SUSP 500,000 UNIT/5 ML CUP PO SCH ×4 (08:56→22:28)
[2019-12-24] MEDS: VIT A,C & E-LUTEIN-MINERALS 1 EACH TAB PO SCH (08:57)
[2019-12-24] MEDS: TACROLIMUS 1 MG CAP PO SCH (08:57)
[2019-12-24] MEDS: TAMSULOSIN 0.4 MG CAP.ER.24H PO SCH (08:58)
[2019-12-24] MEDS: METOPROLOL TARTRATE 25 MG TAB PO SCH ×2 (08:58→22:28)
[2019-12-24] MEDS: predniSONE 20 MG TAB PO SCH (08:58)
[2019-12-24] MEDS: MULTIVITAMINS, THERA 1 EACH TAB PO SCH (08:58)
[2019-12-24] MEDS: DULoxetine HCL 60 MG CAPSULE.DR PO SCH (08:58)
[2019-12-24] MEDS: MAGNESIUM OXIDE 400 MG TAB PO SCH (08:59)
[2019-12-24] MEDS: FINASTERIDE 5 MG TAB PO SCH (08:59)
[2019-12-24] MEDS: PANTOPRAZOLE 40 MG TABLET PO SCH (08:59)
[2019-12-24] MEDS: amLODIPine 5 MG TAB PO SCH (08:59)
[2019-12-24] MEDS: hydrALAZINE HCL 50 MG TAB PO SCH ×3 (08:59→17:45)
--- NOTE | 2019-12-24 10:50 | P.DS ---
Providers Date of admission: 12/18/19 14:14 Expected date of discharge: 12/24/19 Attending physician: Narinder Rosenberg Consults: 12/18/19 14:15 Consult Physician Routine Consulting Provider: Bear Winn Consult Reason/Comments: Thrombocytopenia Do you want consulting provider notified?: Yes 12/19/19 13:14 Consult Physician Routine Consulting Provider: Sharath Tomlinson Consult Reason/Comments: [facility] inpatient rehab Do you want consulting provider notified?: Yes 12/20/19 11:27 Consult Physician Routine Consulting Provider: El Man Consult Reason/Comments: eval for resuming immunosuppressive meds Do you want consulting provider notified?: Yes Primary care physician: Narinder Rosenberg Hospital Course: Final Diagnoses: Generalized weakness with increased fatigue, bruising, petechiae, possible steroid myopathy ITP secondary to high-dose steroids, Rituxan, status post platelets transfusion. Mild Acute renal failure secondary to dehydration Chronic atrial fibrillation Diabetes mellitus 2 Hypertension Hyperlipidemia Chronic renal failure III with history of renal transplant, baseline creatinine 1.4 CAD, history of CABG Anxiety Depression History of prostate cancer, being followed by urology outpatient. Hospital course:This is a 79-year-old gentleman recently diagnosed with suspected ITP, history of chronic thrombocytopenia, kidney transplant, atrial fibrillation, diabetes mellitus, hyperlipidemia, hypertension, chronic renal failure, kidney transplant, hypothyroidism, parathyroid surgery, melanoma, prostate cancer, CAD, CABG,, anxiety, depression and multiple other medical issues admitted with gradually worsening increased fatigue, muscle achiness, bruising. Patient had been advised by Dr. Winn, Oncologist to come to the ER for further evaluation. Patient maintained on high-dose steroids, Rituxan outpatient. Denies spontaneous bleeding. No blood in urine, not in bowel movement, no hemoptysis, no hematochezia. Denies fevers, cough, chills, abd ominal pain, nausea , vomiting or diarrhea. Denies chest pain, palpitations. EKG reported atrial flutter, troponin pending. Platelets on admission 5, elevated WBC of 15.2, hemoglobin stable 15.6, currently 13.5, neutrophils 89, INR 0.9, sodium 132, now up to 136, BUN 31, creatinine 1.16, lactic acid 2, calcium 8.2, potassium and magnesium within normal limits, coronavirus not detected, creatinine kinase less than 20, total protein 5.5, albumin 3.1. Afebrile,VSS, maintaining O2 sats in the low 90s on room air. Received IV fluid hydration, platelets. Oncology consulted. 12/20/2019 denies any active bleeding, denies hematuria. hemoglobin 13.2, platelets up to 17. Creatinine 1 . Vital signs stable. evaluated by Dr. Winn ,nephrology and Dr. Tomlinson with recommendations noted and appreciated. 12/23/2019 platelets decreased to 19, no spontaneous bleeding. Hemoglobin stable. Good appetite with no nausea or vomiting. Blood sugars currently controlled, up into the 300s during the night. Steroids tapered to 60 mg daily. Reports minimal ambulation. IV fluids maintained at 50 miles per hour. Oncology previously discussed potentially starting patient on Promacta today. Afebrile. Denies chest pain, palpitations. Platelets up to 23. Hemoglobin 14.9. Denies any bleeding. Patient did not consume his HS snack last night with low blood sugar this morning, resolved. Significant clinical improvement. Cleared by oncology for discharge. Patient is being discharged to [facility] inpatient rehab in a stable condition with guarded prognosis. Bleeding precautions. The impression and plan of care has been dictated as directed. : I performed a history and examination of this patient, discussed the same with the dictator. I agree with the dictator's note ,documented as a scribe. Any additional findings or plans will be noted. Patient Condition at Discharge: Stable Plan - Discharge Summary Discharge Rx Participant: No New Discharge Prescriptions: New Eltrombopag Olamine [Promacta] 50 mg PO DAILY #30 tablet predniSONE [Deltasone] 60 mg PO DAILY tab INSULIN LISPRO (HumaLOG) [humaLOG] 0 unit SQ ACHS #1 vial clonazePAM [KlonoPIN] 2 mg PO HS PRN #6 tab PRN Reason: Anxiety Tacrolimus [Prograf] 1 mg PO DAILY cap Acetaminophen Tab [Tylenol] 650 mg PO Q6HR PRN tab PRN Reason: Fever And/ Or Pain Continue Finasteride [Proscar] 5 mg PO DAILY Magnesium Oxide [Mag-Ox] 250 mg PO DAILY Tamsulosin HCl [Flomax] 0.4 mg PO DAILY Amitriptyline HCl [Elavil] 100 mg PO HS DULoxetine HCL [Cymbalta] 120 mg PO DAILY Multivitamins, Thera [Multivitamin (formulary)] 1 tab PO DAILY Metoprolol Tartrate [Lopressor] 25 mg PO BID Atorvastatin Calcium [Lipitor] 20 mg PO HS traZODone HCL 100 mg PO HS Pantoprazole [Protonix] 40 mg PO DAILY #30 tablet. Insulin Glargine [Lantus] 27 unit SQ AC-SUPPER #0 INSULIN LISPRO (humaLOG) [humaLOG] 27 unit INJ ACHS Nystatin 100,000 Unit/ml Susp [Mycostatin Oral Susp] 4 ml PO QID Levothyroxine Sodium [Levoxyl] 25 mcg PO QAM hydrALAZINE HCL [Apresoline] 50 mg PO AC-TID Calcium Glutamate 500mg 1,000 mg PO DAILY amLODIPine [Norvasc] 5 mg PO DAILY Vit C/E/Zn/Coppr/Lutein/Zeaxan [Preservision Areds 2 Softgel] 1 cap PO DAILY Discontinued clonazePAM [KlonoPIN] 1 - 2 mg PO HS PRN PRN Reason: Anxiety predniSONE [Deltasone] 80 mg PO DAILY Discharge Medication List Amitriptyline HCl [Elavil] 100 mg PO HS 02/09/17 [History] Finasteride [Proscar] 5 mg PO DAILY 02/09/17 [History] Magnesium Oxide [Mag-Ox] 250 mg PO DAILY 02/09/17 [History] Tamsulosin HCl [Flomax] 0.4 mg PO DAILY 02/09/17 [History] DULoxetine HCL [Cymbalta] 120 mg PO DAILY 04/19/18 [History] Multivitamins, Thera [Multivitamin (formulary)] 1 tab PO DAILY 12/31/18 [History] Metoprolol Tartrate [Lopressor] 25 mg PO BID 01/03/19 [History] Atorvastatin Calcium [Lipitor] 20 mg PO HS 10/14/19 [History] traZODone HCL 100 mg PO HS 10/14/19 [History] Insulin Glargine [Lantus] 27 unit SQ AC-SUPPER #0 10/18/19 [Rx] Pantoprazole [Protonix] 40 mg PO DAILY #30 tablet. 10/18/19 [Rx] Calcium Glutamate 500mg 1,000 mg PO DAILY 12/18/19 [History] INSULIN LISPRO (humaLOG) [humaLOG] 27 unit INJ ACHS 12/18/19 [History] Levothyroxine Sodium [Levoxyl] 25 mcg PO QAM 12/18/19 [History] Nystatin 100,000 Unit/ml Susp [Mycostatin Oral Susp] 4 ml PO QID 12/18/19 [History] Vit C/E/Zn/Coppr/Lutein/Zeaxan [Preservision Areds 2 Softgel] 1 cap PO DAILY 12/18/19 [History] amLODIPine [Norvasc] 5 mg PO DAILY 12/18/19 [History] hydrALAZINE HCL [Apresoline] 50 mg PO AC-TID 12/18/19 [History] Eltrombopag Olamine [Promacta] 50 mg PO DAILY #30 tablet 12/23/19 [Rx] Acetaminophen Tab [Tylenol] 650 mg PO Q6HR PRN tab 12/24/19 [Rx] INSULIN LISPRO (HumaLOG) [humaLOG] 0 unit SQ ACHS #1 vial 12/24/19 [Rx] Tacrolimus [Prograf] 1 mg PO DAILY cap 12/24/19 [Rx] clonazePAM [KlonoPIN] 2 mg PO HS PRN #6 tab 12/24/19 [Rx] predniSONE [Deltasone] 60 mg PO DAILY tab 12/24/19 [Rx] Follow up Appointment(s)/Referral(s): Bear Winn MD [STAFF PHYSICIAN] - 1 Week Narinder Rosenberg DO [Primary Care Provider] - 1 Week (After DC from subacute rehab) Activity/Diet/Wound Care/Special Instructions: [facility] inpatient rehab. ENSURE PATIENT EATS HIS HS SNACK Patient was educated on Promacta. There is a prescription at the [facility] pharmacy, $10 co-pay. This was discussed with the patient. This is financially feasible for him. please make sure the patient has access to his prescription before discharge. Diet consistent carb Activity: As tolerated Discharge Disposition: TRANSFER TO SNF/ECF
[2019-12-24 11:01] LABS: Glucose,Whole Blood 124 mg/dL (75-99)
[2019-12-24] MEDS: traMADol 50 MG TAB PO PRN ×2 (14:06→22:27)
--- NOTE | 2019-12-24 14:38 | PN ---
PROGRESS NOTE Patient is seen for followup for posttransplant care. He was admitted with thrombocytopenia from ITP, currently maintained on prednisone. Patient was also started on a new medication Promacta and his platelet counts have improved. He is scheduled for discharge today to inpatient rehab at [facility]. No complaints today. PHYSICAL EXAMINATION: Blood pressure was 141/79, heart rate 69 per minute, he is afebrile. Examination shows patient is euvolemic. His abdomen is soft nontender. EARTH OBSERVATIONS CHIEF SCIENTIST exam grossly intact. LABS: Show sodium of 137, potassium 4.1, serum creatinine 1.2. ASSESSMENT: 1. Status post donor transplant 2002, maintained on a small dose of Prograf and prednisone with CellCept currently on hold. Renal function stable. 2. Thrombocytopenia from ITP, maintained on steroids and started on Promacta, currently improving. 3. Chronic kidney disease stage 2 to 3, secondary to chronic use of calcineurin inhibitors. 4. Hypertension with chronic kidney disease. 5. BPH maintained on Proscar. PLAN: Patient is stable for discharge. Follow up at rehab at [facility]. MMODL / IJN: [id number] /
--- NOTE | 2019-12-24 15:30 | P.PN ---
Subjective Progress Note Date: 12/24/19 Principal diagnosis: thrombocytopenia In follow-up today patient has no complaints, denies hematoma, epistaxis, hemoptysis, blood in the urine or the stool. Objective - Vital Signs Vital signs: Vital Signs Temp 97.5 F L 12/24/19 11:11 Pulse 69 12/24/19 11:11 Resp 16 12/24/19 11:11 BP 141/79 12/24/19 11:11 Pulse Ox 97 12/24/19 11:11 Intake & Output 12/23/19 12/24/19 12/24/19 18:59 06:59 18:59 Intake Total 800 Output Total 900 Balance -100 Intake: Intake, IV Titration 400 Amount Sodium Chloride 0.9% 1, 400 000 ml @ 50 mls/hr IV . [facility]H [facility] Rx#:[id number] Oral 400 Output: Urine 900 Other: Voiding Method Toilet Toilet Toilet Urinal Urinal Urinal # Voids 2 1 - Constitutional General appearance: Present: average body habitus, cooperative, no acute distress - EENT Eyes: Present: anicteric sclerae, EOMI ENT: Present: hearing grossly normal - Respiratory Respiratory: bilateral: CTA - Cardiovascular Heart sounds: normal: S1, S2 Abnormal Heart Sounds: Absent: systolic murmur, diastolic murmur, rub, S3 Gallop, S4 Gallop, click, other - Gastrointestinal General gastrointestinal: Present: normal bowel sounds, soft. Absent: absent bowel sounds, decreased bowel sounds, distended, hepatomegaly, hyperactive bowel sounds, organomegaly, rigid, scaphoid, splenomegaly, tenderness, umbilical hernia, ventral hernia - Integumentary Integumentary Comment(s): bruising on the forearms and known areas of trauma, nothing seems to be progressive - Musculoskeletal Musculoskeletal: Present: generalized weakness - Psychiatric Psychiatric: Present: A&O x's 3, appropriate affect, intact judgment & insight - Labs CBC & Chem 7: 12/24/19 06:05 12/24/19 06:05 Labs: Abnormal Lab Results - Last 24 Hours (Table) 12/23/19 12/23/19 12/24/19 Range/Units 17:12 20:12 06:05 WBC 12.3 H (3.8-10.6) k/uL RDW 17.0 H (11.5-15.5) % Plt Count 23 L (150-450) k/uL Neutrophils # 10.1 H (1.3-7.7) k/uL BUN (9-20) mg/dL Glucose (74-99) mg/dL POC Glucose (mg/dL) 265 H 282 H (75-99) mg/dL Calcium (8.4-10.2) mg/dL 12/24/19 12/24/19 12/24/19 Range/Units 06:05 06:59 07:21 WBC (3.8-10.6) k/uL RDW (11.5-15.5) % Plt Count (150-450) k/uL Neutrophils # (1.3-7.7) k/uL BUN 32 H (9-20) mg/dL Glucose 31 L* (74-99) mg/dL POC Glucose (mg/dL) 51 L 67 L (75-99) mg/dL Calcium 8.2 L (8.4-10.2) mg/dL 12/24/19 Range/Units 10:59 WBC (3.8-10.6) k/uL RDW (11.5-15.5) % Plt Count (150-450) k/uL Neutrophils # (1.3-7.7) k/uL BUN (9-20) mg/dL Glucose (74-99) mg/dL POC Glucose (mg/dL) 124 H (75-99) mg/dL Calcium (8.4-10.2) mg/dL Microbiology - Last 24 Hours (Table) 12/18/19 17:16 Blood Culture - Preliminary Blood No Growth after 120 hours Assessment and Plan (1) Myopathy Narrative/Plan: Suspect most likely related to steroid treatment. These are currently being weaned. Encouraged physical therapy Current Visit: Yes Status: Acute Priority: High Code(s): G72.9 - MYOPATHY, UNSPECIFIED SNOMED Code(s): 19646922 (2) Idiopathic thrombocytopenia purpura Narrative/Plan: patient has received high-dose steroid therapy as well as Rituxan 4 with no si gnificant improvement in thrombocytopenia. Next therapy of choice is oral Promacta. Sample has been obtained for patient to begin treatment, first dose this morning. Patient was re-educated on Promacta, verified if he had any questions. It is to be taken on an empty stomach-one hour before eating or 2 hours after eating. Also, it must be taken 2 hours before or 4 hours after consuming any ca lcium foods, fluids or medications. Patient was given drug monograph with specific instruction and highlighted info. Patient was given a list of some calcium rich foods that are not always considered (i.e. broccoli). It was decided upon the 6 AM would be the best time for the patient to take the medication. He understands that he is not able to eat or drink until 8 AM-this covers both the empty stomach as well as any concerns for consuming foods/fluids with calcium. Current Visit: Yes Status: Acute Priority: High Code(s): D69.3 - IMMUNE THROMBOCYTOPENIC PURPURA SNOMED Code(s): 83163996 (3) History of renal transplant Narrative/Plan: Dr. Winn and Dr. Wolfe discussed the case. We are working with Nephrology on steroid taper and resumption of immunosuppressive medications. Very slow steroid taper-reduce dose by 20mg every 2 weeks, 10mg for 2 weeks. Current Visit: Yes Status: Chronic Priority: Medium Code(s): Z94.0 - KIDNEY TRANSPLANT STATUS SNOMED Code(s): 893722815 Plan: We will follow with pt inpt rehab
[2019-12-24 17:07] LABS: Glucose,Whole Blood 223 mg/dL (75-99)
[2019-12-24 22:22] LABS: Glucose,Whole Blood 280 mg/dL (75-99)
[2019-12-24] MEDS: clonazePAM 1 MG TAB PO PRN (22:24)
[2019-12-24] MEDS: AMITRIPTYLINE HCL 50 MG TAB PO SCH (22:26)
[2019-12-24] MEDS: traZODone HCL 100 MG TAB PO SCH (22:27)
[2019-12-24] MEDS: ATORVASTATIN 20 MG TAB PO SCH (22:27)
[2019-12-24] MEDS: INSULIN DETEMIR (LEVEMIR) 100 UNIT/ML SYR SQ SCH (22:28)
[2019-12-25 02:02] LABS: Glucose,Whole Blood 306 mg/dL (75-99)
[2019-12-25 04:11] VITALS: RESP 16
[2019-12-25] MEDS: LEVOTHYROXINE 25 MCG TAB PO SCH (05:44)
[2019-12-25] MEDS: PROMACTA 50 MG PO SCH (05:44)
[2019-12-25 07:09] LABS: Glucose,Whole Blood 202 mg/dL (75-99)
[2019-12-25] MEDS: TACROLIMUS 1 MG CAP PO SCH (09:09)
[2019-12-25] MEDS: MAGNESIUM OXIDE 400 MG TAB PO SCH (09:09)
[2019-12-25] MEDS: PANTOPRAZOLE 40 MG TABLET PO SCH (09:09)
[2019-12-25] MEDS: hydrALAZINE HCL 50 MG TAB PO SCH ×2 (09:09→13:13)
[2019-12-25] MEDS: FINASTERIDE 5 MG TAB PO SCH (09:09)
[2019-12-25] MEDS: VIT A,C & E-LUTEIN-MINERALS 1 EACH TAB PO SCH (09:09)
[2019-12-25] MEDS: MULTIVITAMINS, THERA 1 EACH TAB PO SCH (09:09)
[2019-12-25] MEDS: predniSONE 20 MG TAB PO SCH (09:09)
[2019-12-25] MEDS: amLODIPine 5 MG TAB PO SCH (09:09)
[2019-12-25] MEDS: TAMSULOSIN 0.4 MG CAP.ER.24H PO SCH (09:09)
[2019-12-25] MEDS: METOPROLOL TARTRATE 25 MG TAB PO SCH (09:09)
[2019-12-25] MEDS: NYSTATIN 100,000 UNIT/ML SUSP 500,000 UNIT/5 ML CUP PO SCH ×2 (09:09→13:13)
[2019-12-25] MEDS: DULoxetine HCL 60 MG CAPSULE.DR PO SCH (09:09)
[2019-12-25] MEDS: traMADol 50 MG TAB PO PRN (09:18)
[2019-12-25] MEDS: INSULIN ASPART (NovoLOG) 100 UNIT/ML VIAL SQ SCH ×2 (09:20→13:14)
[2019-12-25 10:41] VITALS: BMI 30.8
[2019-12-25 10:51] LABS: Anisocytosis Slight; HCT 42.2 % (39.0-53.0); HGB 13.7 gm/dL (13.0-17.5); MCH 30.4 pg (25.0-35.0); MCHC 32.5 g/dL (31.0-37.0); MCV 93.6 fL (80.0-100.0); Mean Platelet Volume 10.3; RBC 4.51 m/uL (4.30-5.90); RDW 17.2 % (11.5-15.5); WBC 12.2 k/uL (3.8-10.6)
[2019-12-25 10:57] LABS: Platelet Count 17 k/uL (150-450)
[2019-12-25 11:05] LABS: Albumin 2.8 g/dL (3.5-5.0); Calcium 7.8 mg/dL (8.4-10.2); Potassium 4.1 mmol/L (3.5-5.1); Total Bilirubin 0.4 mg/dL (0.2-1.3); Total Protein 4.9 g/dL (6.3-8.2)
[2019-12-25 11:36] LABS: Glucose,Whole Blood 196 mg/dL (75-99)
[2019-12-25 11:53] VITALS: BP 132/77; PULSE 63; TEMP 97.5
--- NOTE | 2019-12-25 15:02 | P.PN ---
Subjective Progress Note Date: 12/25/19 Principal diagnosis: thrombocytopenia In follow-up today patient has no complaints, no bleeding to report. He has had 2 doses of Promacta, denies any acute side effects. Objective - Vital Signs Vital signs: Vital Signs Temp 97.5 F L 12/25/19 11:47 Pulse 63 12/25/19 11:47 Resp 16 12/25/19 11:47 BP 132/77 12/25/19 11:47 Pulse Ox 92 L 12/25/19 11:47 Intake & Output 12/24/19 12/25/19 12/25/19 18:59 06:59 18:59 Intake Total 200 Output Total 500 500 500 Balance -500 -300 -500 Weight 92 kg Intake: Oral 200 Output: Urine 500 500 500 Other: Voiding Method Toilet Toilet Urinal Urinal # Voids 4 2 # Bowel Movements 1 - Constitutional General appearance: Present: average body habitus, cooperative, no acute distress - EENT Eyes: Present: anicteric sclerae, EOMI - Respiratory Respiratory: bilateral: CTA - Cardiovascular Heart sounds: normal: S1, S2 - Gastrointestinal General gastrointestinal: Present: soft - Integumentary Integumentary Comment(s): Multiple bruises on the upper extremities, various stages of healing, nothing appears to be enlarging, no hematomas, hemoglobin is stable so no reason to be suspicious for acute bleeding - Musculoskeletal Musculoskeletal: Present: generalized weakness - Psychiatric Psychiatric: Present: A&O x's 3, appropriate affect - Labs CBC & Chem 7: 12/25/19 10:28 12/25/19 10:28 Labs: Abnormal Lab Results - Last 24 Hours (Table) 12/24/19 12/24/19 12/25/19 Range/Units 17:05 22:20 02:01 WBC (3.8-10.6) k/uL RDW (11.5-15.5) % Plt Count (150-450) k/uL Sodium (137-145) mmol/L BUN (9-20) mg/dL Glucose (74-99) mg/dL POC Glucose (mg/dL) 223 H 280 H 306 H (75-99) mg/dL Calcium (8.4-10.2) mg/dL Total Protein (6.3-8.2) g/dL Albumin (3.5-5.0) g/dL 12/25/19 12/25/19 12/25/19 Range/Units 07:08 10:28 10:28 WBC 12.2 H (3.8-10.6) k/uL RDW 17.2 H (11.5-15.5) % Plt Count 17 L* (150-450) k/uL Sodium 131 L (137-145) mmol/L BUN 32 H (9-20) mg/dL Glucose 241 H (74-99) mg/dL POC Glucose (mg/dL) 202 H (75-99) mg/dL Calcium 7.8 L (8.4-10.2) mg/dL Total Protein 4.9 L (6.3-8.2) g/dL Albumin 2.8 L (3.5-5.0) g/dL 12/25/19 Range/Units 11:32 WBC (3.8-10.6) k/uL RDW (11.5-15.5) % Plt Count (150-450) k/uL Sodium (137-145) mmol/L BUN (9-20) mg/dL Glucose (74-99) mg/dL POC Glucose (mg/dL) 196 H (75-99) mg/dL Calcium (8.4-10.2) mg/dL Total Protein (6.3-8.2) g/dL Albumin (3.5-5.0) g/dL Microbiology - Last 24 Hours (Table) 12/18/19 17:16 Blood Culture - Final Blood No Growth after 144 hours Assessment and Plan (1) Myopathy Narrative/Plan: Most likely related to steroid treatment. These will be weaned very slowly. Encouraged physical therapy (going to [facility]) Current Visit: Yes Status: Acute Priority: High Code(s): G72.9 - MYOPATHY, UNSPECIFIED SNOMED Code(s): 30576670 (2) Idiopathic thrombocytopenia purpura Narrative/Plan: Patient has received high-dose steroid therapy as well as Rituxan 4 with no significant improvement in thrombocytopenia. Next therapy of choice is oral Promacta. Sample has been obtained for patient to begin treatment, first dose 12/23. Patient was re-educated on Promacta, verified if he had any questions. It is to be taken on an empty stomach-one hour before eating or 2 hours after eating. Also, it must be taken 2 hours before or 4 hours after consuming any calcium foods, fluids or medications. Patient was given drug monograph with specific instruction and highlighted info. Patient was given a list of some calcium rich foods that are not always considered (i.e. broccoli). It was decided upon the 6 AM would be the best time for the patient to take the medication. He understands that he is not able to eat or drink until 8 AM-this covers both the empty stomach as well as any concerns for consuming foods/fluids with calcium. Case discussed with Hog Stomach Preparer. Promacta has to be held while patient is in [facility]. Promacta is for the treatment of ITP. Since he will not be on the medication he will have to continue the steroids. CBC to be drawn twice a week. Patient is to be transfused with 1 unit single donor platelets for a platelet count less than 10,000 or signs or symptoms bleeding. Current Visit: Yes Status: Acute Priority: High Code(s): D69.3 - IMMUNE THROMBOCYTOPENIC PURPURA SNOMED Code(s): 26928298 (3) History of renal transplant Narrative/Plan: Steroid taper is going to have to be prolonged as pt is not able to receive next line therapy with promacta until discharged from [facility] Current Visit: Yes Status: Chronic Priority: Medium Code(s): Z94.0 - KIDNEY TRANSPLANT STATUS SNOMED Code(s): 229192111 Time with Patient: Greater than 30 (Counseling and coordinating care, discussion with Im Deacon WALLS, RN)
--- NOTE | 2019-12-25 15:04 | PN ---
PROGRESS NOTE Patient is seen for followup for posttransplant care. He is currently doing well. Platelet counts have been fluctuating between 26 and 17,000. It was up to 23 yesterday and back down to 17 today. PHYSICAL EXAMINATION: Blood pressure is 132/77, heart rate 63 per minute, he is afebrile. Patient is euvolemic, with no evidence of edema of lower extremities. Abdomen is soft, nontender. CLINICAL LAW PROFESSOR exam grossly intact. No active bruising or bleeding noted. LABS: Show sodium of 131, potassium 4.1, BUN 32, serum creatinine 1.2, hemoglobin 13.7 g/dL. Platelet count 17,000. ASSESSMENT: 1. Status post donor transplant in 2002, maintained on small dose of Prograf along with prednisone and CellCept remains on hold. 2. 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 3. 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 4. Hypertension with chronic kidney disease, stable. 5. BPH maintained on Cozaar. PLAN: No changes in immunosuppressive medications from nephrology standpoint. MMODL / IJN: [id number] /
== END 2019-12-25 17:00 | DRG 813 ==
LOC: EC 11:39 → 5NMEDONC 14:14
PROVIDERS: ADMIT Family Medicine; ATTEND Family Medicine
PROC: 30233R1 Transfusion of Nonautologous Platelets into Peripheral Vein, Percutaneous Approach (ICD-10-PCS; principal; 2019-12-18)
DX: D69.3 Immune thrombocytopenic purpura (principal); N17.0 Acute kidney failure with tubular necrosis; T86.19 Other complication of kidney transplant; G72.0 Drug-induced myopathy; E87.1 Hypo-osmolality and hyponatremia; I48.20 Chronic atrial fibrillation, unspecified; Z11.59 Encounter for screening for other viral diseases; E11.22 Type 2 diabetes mellitus with diabetic chronic kidney disease; C61 Malignant neoplasm of prostate; N18.3 Chronic kidney disease, stage 3 (moderate); Z79.4 Long term (current) use of insulin; E86.0 Dehydration; E78.5 Hyperlipidemia, unspecified; F41.9 Anxiety disorder, unspecified; F32.9 Major depressive disorder, single episode, unspecified; H91.90 Unspecified hearing loss, unspecified ear; E89.0 Postprocedural hypothyroidism; I12.9 Hypertensive chronic kidney disease with stage 1 through stage 4 chronic kidney disease, or unspecified chronic kidney disease; R53.81 Other malaise; N40.0 Benign prostatic hyperplasia without lower urinary tract symptoms; I25.10 Atherosclerotic heart disease of native coronary artery without angina pectoris; T38.0X5A Adverse effect of glucocorticoids and synthetic analogues, initial encounter; Z79.899 Other long term (current) drug therapy; Z88.5 Allergy status to narcotic agent; Z95.1 Presence of aortocoronary bypass graft; Z80.8 Family history of malignant neoplasm of other organs or systems; Z83.2 Family history of diseases of the blood and blood-forming organs and certain disorders involving the immune mechanism; Z85.820 Personal history of malignant melanoma of skin; Z79.890 Hormone replacement therapy; Z87.09 Personal history of other diseases of the respiratory system
CPT/HCPCS: 36415; 36430; 80048; 80053; 81003; 82085; 82550; 83605; 83735; 84100; 84484; 85025; 85027; 85610; 85730; 86850; 86900; 86901; 87040; 96360; 99285

== ENCOUNTER 2019-12-28 02:09 | Inpatient (IN) | payer MEDICARE ==
--- NOTE | 2019-12-28 02:34 | ED ---
Recheck HPI - General Chief Complaint: Recheck/Abnormal Lab/Rx Stated Complaint: Abn Labs Time Seen by Provider: 12/28/19 02:28 Source: patient Mode of arrival: ambulatory Limitations: no limitations - History of Present Illness Initial Comments: Chet is a 79 her old male recently admitted the hospital with what appeared to be ITP. Patient has been treated with platelet transfusions high-dose steroids and medications in the past month with minimal effect. Patient's currently on a steroid taper and residing at [facility]. Patient's platelets continued decrease and were found to be 17 yesterday prompted his transfer back to the hospital for reevaluation. Apparently patient wasstarted on new oral medication at discharge from the hospital but was not able to get it [facility] therefore has not been on any treatment. Patient does have bruising to his arms from previous blood draw but no spontaneous bleeding, no bloody noses no bleeding with brushing his teeth. - Related Data Home Medications Medication Instructions Recorded Confirmed Amitriptyline HCl [Elavil] 100 mg PO HS 02/09/17 12/18/19 Finasteride [Proscar] 5 mg PO DAILY 02/09/17 12/18/19 Magnesium Oxide [Mag-Ox] 250 mg PO DAILY 02/09/17 12/18/19 Tamsulosin HCl [Flomax] 0.4 mg PO DAILY 02/09/17 12/18/19 DULoxetine HCL [Cymbalta] 120 mg PO DAILY 04/19/18 12/18/19 Multivitamins, Thera [Multivitamin 1 tab PO DAILY 12/31/18 12/18/19 (formulary)] Metoprolol Tartrate [Lopressor] 25 mg PO BID 01/03/19 12/18/19 Atorvastatin Calcium [Lipitor] 20 mg PO HS 10/14/19 12/18/19 traZODone HCL 100 mg PO HS 10/14/19 12/18/19 Calcium Glutamate 500mg 1,000 mg PO DAILY 12/18/19 12/18/19 INSULIN LISPRO (humaLOG) [humaLOG] 27 unit INJ ACHS 12/18/19 12/19/19 Levothyroxine Sodium [Levoxyl] 25 mcg PO QAM 12/18/19 12/18/19 Nystatin 100,000 Unit/ml Susp 4 ml PO QID 12/18/19 12/18/19 [Mycostatin Oral Susp] Vit C/E/Zn/Coppr/Lutein/Zeaxan 1 cap PO DAILY 12/18/19 12/18/19 [Preservision Areds 2 Softgel] amLODIPine [Norvasc] 5 mg PO DAILY 12/18/19 12/18/19 hydrALAZINE HCL [Apresoline] 50 mg PO AC-TID 12/18/19 12/18/19 Previous Rx's Medication Instructions Recorded Insulin Glargine [Lantus] 27 unit SQ AC-SUPPER #0 10/18/19 Pantoprazole [Protonix] 40 mg PO DAILY #30 tablet. 10/18/19 Eltrombopag Olamine [Promacta] 50 mg PO DAILY #30 tablet 12/23/19 Acetaminophen Tab [Tylenol] 650 mg PO Q6HR PRN tab 12/24/19 INSULIN LISPRO (HumaLOG) [humaLOG] 0 unit SQ ACHS #1 vial 12/24/19 Tacrolimus [Prograf] 1 mg PO DAILY cap 12/24/19 clonazePAM [KlonoPIN] 2 mg PO HS PRN #6 tab 12/24/19 predniSONE [Deltasone] 60 mg PO DAILY tab 12/24/19 Allergies Allergy/AdvReac Type Severity Reaction Status Date / Time morphine Allergy Itching Verified 12/28/19 02:18 Review of Systems ROS Statement: Those systems with pertinent positive or pertinent negative responses have been documented in the HPI. ROS Other: All systems not noted in ROS Statement are negative. 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 History of Any Multi-Drug Resistant Organisms: None Reported Past Surgical History: Coronary Bypass/CABG, Orthopedic Surgery Additional Past Surgical History / Comment(s): kidney transplant, parathyoid surgery, knee Past Anesthesia/Blood Transfusion Reactions: No Reported Reaction Past Psychological History: Anxiety, Depression Smoking Status: Never smoker Past Alcohol Use History: Rare Past Drug Use History: None Reported - Past Family History Father Family Medical History: Deep Vein Thrombosis (DVT) Son(s) Family Medical History: Cancer Additional Family Medical History / Comment(s): Skin cancer. General Exam - General Exam Comments Initial Comments: Physical Exam GENERAL: Chronically ill-appearing Pale No acute distress HENT: Normocephalic, Atraumatic. EYES: PERRL, EOMI PULMONARY: Unlabored respirations. CARDIOVASCULAR: RRR Warm and well perfused extremities ABDOMEN: Non-distended SKIN: Significant bruising to the bilateral arms, large hematoma in the left forearm from previous blood draw : Deferred NEUROLOGIC: Alert and oriented Normal speech Normal gait MUSCULOSKELETAL: Moving all extremities with no apparent injury Generalized muscle weakness PSYCHIATRIC: No SI/HI Limitations: no limitations Course Vital Signs 12/28/19 02:15 Temperature 98.1 F Pulse Rate 73 Respiratory 20 Rate Blood Pressure 139/89 O2 Sat by Pulse 97 Oximetry Medical Decision Making - Medical Decision Making Patient was seen and evaluated history is obtained from patient and review of medical record 79-year-old male recently diagnosed ITP which was unresponsive to previous treatments with steroids medications, patient's been unable to get his oral medications since discharge she's having worsening thrombocytopenia on labs and does have spontaneous bruising as well as severe bruising from IV access. Patient's labs did can for a worsening thrombocytopenia. Given that the patient has worsening labs and unable to get his medications and outpatient basis or the rehab facility where he lives discharged to I will plan to readmit the patient for reevaluation by hematoma. Given the patient failed treatment with p latelet transfusion before and isn't having any current spontaneous bleeding and will hold platelet transfusion and allow him off to make that decision later today. - Lab Data Result diagrams: 12/28/19 02:37 12/28/19 02:37 Lab Results 12/28/19 12/28/19 12/28/19 Range/Units 02:37 02:37 02:37 WBC 10.7 H (3.8-10.6) k/uL RBC 5.03 (4.30-5.90) m/uL Hgb 14.6 (13.0-17.5) gm/dL Hct 45.4 (39.0-53.0) % MCV 90.1 (80.0-100.0) fL MCH 28.9 (25.0-35.0) pg MCHC 32.1 (31.0-37.0) g/dL RDW 17.5 H (11.5-15.5) % Plt Count 14 L* (150-450) k/uL Neutrophils % 88 % Lymphocytes % 5 % Monocytes % 6 % Eosinophils % 0 % Basophils % 1 % Neutrophils # 9.4 H (1.3-7.7) k/uL Lymphocytes # 0.5 L (1.0-4.8) k/uL Monocytes # 0.6 (0-1.0) k/uL Eosinophils # 0.0 (0-0.7) k/uL Basophils # 0.1 (0-0.2) k/uL Manual Slide Review Performed Large Platelets Present Anisocytosis Slight Sodium 135 L (137-145) mmol/L Potassium 4.3 (3.5-5.1) mmol/L Chloride 104 (98-107) mmol/L Carbon Dioxide 24 (22-30) mmol/L Anion Gap 7 mmol/L BUN 37 H (9-20) mg/dL Creatinine 1.59 H (0.66-1.25) mg/dL Est GFR (CKD-EPI)AfAm 48 (>60 ml/min/1.73 sqM) Est GFR (CKD-EPI)NonAf 41 (>60 ml/min/1.73 sqM) Glucose 86 (74-99) mg/dL Calcium 8.3 L (8.4-10.2) mg/dL Total Bilirubin 0.5 (0.2-1.3) mg/dL AST 23 (17-59) U/L ALT 44 (4-49) U/L Alkaline Phosphatase 47 (38-126) U/L Total Protein 5.6 L (6.3-8.2) g/dL Albumin 3.3 L (3.5-5.0) g/dL Blood Type A Positive Blood Type Recheck A Pos Bld Type Recheck Status No Antibody Screen NEGATIVE Spec Expiration Date 12/31/2019 - 233 Disposition Clinical Impression: Thrombocytopenia Disposition: ADMITTED IP TO THIS [facility] Condition: Serious Is patient prescribed a controlled substance at d/c from ED?: No
[2019-12-28 03:01] LABS: Anisocytosis Slight; Basophils # (A) 0.1 k/uL (0-0.2); Basophils % (A) 1 %; Eosinophils % (A) 0 %; HCT 45.4 % (39.0-53.0); HGB 14.6 gm/dL (13.0-17.5); Lymphocytes # (A) 0.5 k/uL (1.0-4.8); Lymphocytes % (A) 5 %; MCH 28.9 pg (25.0-35.0); MCHC 32.1 g/dL (31.0-37.0); MCV 90.1 fL (80.0-100.0); Mean Platelet Volume 11.4; Monocytes # (A) 0.6 k/uL (0-1.0); Monocytes % (A) 6 %; Neutrophils # (A) 9.4 k/uL (1.3-7.7); Neutrophils % (A) 88 %; RBC 5.03 m/uL (4.30-5.90); RDW 17.5 % (11.5-15.5); WBC 10.7 k/uL (3.8-10.6)
[2019-12-28 03:02] LABS: Albumin 3.3 g/dL (3.5-5.0); Calcium 8.3 mg/dL (8.4-10.2); Potassium 4.3 mmol/L (3.5-5.1); Total Bilirubin 0.5 mg/dL (0.2-1.3); Total Protein 5.6 g/dL (6.3-8.2)
[2019-12-28 03:11] LABS: Platelet Count 14 k/uL (150-450)
[2019-12-28] MEDS ORDERED: NALOXONE 0.4 MG/ML 1 ML VIAL IV PRN (03:28)
[2019-12-28 03:30] LABS: Large Platelets Present
[2019-12-28 04:57] LABS: Glucose,Whole Blood 104 mg/dL (75-99)
[2019-12-28 07:24] LABS: Glucose,Whole Blood 81 mg/dL (75-99)
[2019-12-28 12:34] LABS: Glucose,Whole Blood 250 mg/dL (75-99)
--- NOTE | 2019-12-28 14:38 | P.CONS ---
History of Present Illness - Reason for Consult Consult date: 12/28/19 ITP Requesting physician: Nadeem Curtis - Chief Complaint abnormal lab - History of Present Illness Mr. Lobo is a very pleasant 79-year-old well known patient, he was just recently sent to [facility] for rehabilitation and a diagnosis of ITP, unable to take his newly prescribed therapy due to cost. He was sent with parameters to do twice weekly CBCs and transfuse if platelets are less than 10,000. Patient was sent back to the hospital with a platelet count 14,000. Patient denied epistaxis, gum bleeding, hemoptysis, hematuria, hematochezia or melena, the bruises on his arms are healing, no hematomas, he denied any other physical complaints. Hematological history: Mr. Lobo is a very pleasant 79-year-old male patient who is seen in the hospital by Dr. Winn on 10/15/19. 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 Dasilva, no treatment. Patient came to [facility] 10/14/19. He was in [place] previously, he developed an upper respiratory infection that persisted for about 3 weeks. Was placed on antibiotic without much improvement. While he was on his way home from [place] he noticed easy bruising, petechiae on the lower extremities, nose bleed and hemoptysis. He spoke to his splash line operator to held Xarelto. He was told to go to the ER. On admit he had a normal white blood cell, platelets 2000, hemoglobin 10.9, BUN 28, creatinine 1.37. Iron st udies were within normal limits. Paraproteinemia workup was negative. Patient was placed on steroids. He was placed on steroids. His blood sugars finesse into the 300s. Codvid 19 was negative. 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 Xarelto was held, along with his CellCept and sirolimus anti-rejection meds. He did not have much of a response to high dose prednisone and was therefore started on Rituxan. He had weekly treatments x 4, completing those on 5/18/20. Platelets remain between 10-20,000. Earlier this week the patient was admitted feeling more fatigued, general muscle aching and weakness, difficulty getting up and down from a sitting position and walking-he was worked up for rhabdomyolysis, possible uremia. 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 Patient was started on Promacta and was going to begin a slow steroid taper. Review of Systems 14 point review of systems is negative except as stated in HPI Past Medical History Past Medical History: Atrial Fibrillation, Diabetes Mellitus, Hyperlipidemia, Hypertension, Renal Disease, Thyroid Disorder Additional Past Medical History / Comment(s): Melamoma taken off of ear, "slow growing cancer of prostate, being watched by Dr Dasilva." Hard of hearing. History of Any Multi-Drug Resistant Organisms: None Reported Past Surgical History: Coronary Bypass/CABG, Orthopedic Surgery Additional Past Surgical History / Comment(s): kidney transplant, parathyoid surgery, knee Past Anesthesia/Blood Transfusion Reactions: No Reported Reaction Past Psychological History: Anxiety, Depression Smoking Status: Never smoker Past Alcohol Use History: Rare Past Drug Use History: None Reported - Past Family History Father Family Medical History: Deep Vein Thrombosis (DVT) Son(s) Family Medical History: Cancer Additional Family Medical History / Comment(s): Skin cancer. Medications and Allergies Home Medications Medication Instructions Recorded Confirmed Type Amitriptyline HCl [Elavil] 100 mg PO HS@209902/09/17 12/28/19 History Finasteride [Proscar] 5 mg PO DAILY@89902/09/17 12/28/19 History Magnesium Oxide [Mag-Ox] 250 mg PO DAILY@89902/09/17 12/28/19 History Tamsulosin HCl [Flomax] 0.4 mg PO DAILY@89902/09/17 12/28/19 History DULoxetine HCL [Cymbalta] 120 mg PO DAILY 04/19/18 12/28/19 History Multivitamins, Thera [Multivitamin 1 tab PO DAILY@89912/31/18 12/28/19 History (formulary)] Metoprolol Tartrate [Lopressor] 25 mg PO BID@0900,209901/03/19 12/28/19 History Atorvastatin Calcium [Lipitor] 20 mg PO HS@209910/14/19 12/28/19 History traZODone HCL 100 mg PO HS@209910/14/19 12/28/19 History INSULIN LISPRO (humaLOG) [humaLOG] 27 unit INJ ACHS 12/18/19 12/28/19 History Levothyroxine Sodium [Levoxyl] 25 mcg PO DAILY@59912/18/19 12/28/19 History Nystatin 100,000 Unit/ml Susp 5 ml PO QID 12/18/19 12/28/19 History [Mycostatin Oral Susp] Vit C/E/Zn/Coppr/Lutein/Zeaxan 1 cap PO DAILY@89912/18/19 12/28/19 History [Preservision Areds 2 Softgel] amLODIPine [Norvasc] 5 mg PO DAILY@89912/18/19 12/28/19 History hydrALAZINE HCL [Apresoline] 50 mg PO AC-TID 12/18/19 12/28/19 History Acetaminophen Tab [Tylenol] 650 mg PO Q6HR PRN tab 12/24/19 12/28/19 Rx clonazePAM [KlonoPIN] 2 mg PO HS PRN #6 tab 12/24/19 12/28/19 Rx Calcium Carbonate [Tums] 1,000 mg PO DAILY@89912/28/19 12/28/19 History Eltrombopag Olamine [Promacta] 50 mg PO DAILY@89912/28/19 12/28/19 History INSULIN LISPRO (HumaLOG) [humaLOG] See Protocol [facility]Q [facility] 12/28/19 12/28/19 History Insulin Glargine,Hum.rec.anlog 27 unit SQ DAILY@209912/28/19 12/28/19 History [Basaglar Kwikpen U-100] Pantoprazole [Protonix] 40 mg PO DAILY@89912/28/19 12/28/19 History Tacrolimus [Prograf] 1 mg PO DAILY@89912/28/19 12/28/19 History predniSONE [Deltasone] 60 mg PO DAILY@89912/28/19 12/28/19 History traMADol HCL 50 mg PO BID 12/28/19 12/28/19 History Allergies Allergy/AdvReac Type Severity Reaction Status Date / Time morphine Allergy Itching Verified 12/28/19 11:16 Physical Exam Vitals: Vital Signs Temp Pulse Pulse Resp BP BP Pulse Ox 12/28/19 04:55 64 18 176/88 98 12/28/19 02:15 98.1 F 73 20 139/89 97 Intake and Output 12/27/19 12/28/19 12/28/19 22:59 06:59 14:59 Intake Total 600 600 Output Total 800 Balance 600 -200 Intake: Oral 600 600 Output: Urine 800 Other: # Voids 1 Weight 92.986 kg - Constitutional General appearance: cooperative, no acute distress, obese - EENT Eyes: anicteric sclerae, EOMI ENT: hearing grossly normal, normal oropharynx - Neck Neck: no lymphadenopathy - Respiratory Respiratory: bilateral: CTA - Cardiovascular Rhythm: regular Heart sounds: normal: S1, S2 Abnormal Heart Sounds: no systolic murmur, no diastolic murmur, no rub, no S3 Gallop, no S4 Gallop, no click, no other leg Peripheral Edema: bilateral: None - Gastrointestinal General gastrointestinal: no absent bowel sounds, no decreased bowel sounds, no distended, no hepatomegaly, no hyperactive bowel sounds, normal bowel sounds, no organomegaly, no rigid, no scaphoid, soft, splenomegaly, no tenderness, no umbilical hernia, no ventral hernia - Integumentary Multiple bruises on the bilateral forearms, all in varying degrees of healing, no hematomas - Musculoskeletal Musculoskeletal: generalized weakness - Psychiatric Psychiatric: A&O x's 3, appropriate affect, intact judgment & insight Results CBC & Chem 7: 12/28/19 02:37 12/28/19 02:37 Labs: Abnormal Lab Results - Last 24 Hours (Table) 12/28/19 12/28/19 12/28/19 Range/Units 02:37 02:37 04:54 WBC 10.7 H (3.8-10.6) k/uL RDW 17.5 H (11.5-15.5) % Plt Count 14 L* (150-450) k/uL Neutrophils # 9.4 H (1.3-7.7) k/uL Lymphocytes # 0.5 L (1.0-4.8) k/uL Sodium 135 L (137-145) mmol/L BUN 37 H (9-20) mg/dL Creatinine 1.59 H (0.66-1.25) mg/dL POC Glucose (mg/dL) 104 H (75-99) mg/dL Calcium 8.3 L (8.4-10.2) mg/dL Total Protein 5.6 L (6.3-8.2) g/dL Albumin 3.3 L (3.5-5.0) g/dL Assessment and Plan (1) Idiopathic thrombocytopenia purpura Narrative/Plan: Patient's platelet count is 14,000, no signs or symptoms of bleeding, hemoglobin is stable. Patient was sent to [facility] for rehabilitation. He was unable to take Promacta (started earlier this week for ITP as he was refractory to steroids and Rituxan) due to the cost so, he was sent with platelet transfusion guidelines. Patient was have CBC twice a week and he was to be transfused with 1 unit of single donor platelets for platelet count less than 10,000. Patient was sent back to the hospital for platelet count of 14,000, no signs or symptoms of bleeding, stable hemoglobin. Patient complained that [facility] gym is closed and that someone came into his room and gave him exercises to do in the bed-he was unsure as to how much rehab he was actually getting. I obtained another sample of Promacta, this is been sent to pharmacy so that patient can resume. Patient is to take 50 mg daily, 1 hour before or 2 hours a fter eating, not within 4 hours of consuming anything with calcium. Previously the plan was to take it 5 AM, this has been resumed. Have requested PT/OT to evaluate and treat patient. If there is any possibility that he can be treated inpatient rehab that would be the preferred method of rehabilitation as he will be able to take his Promacta. If patient does not qualify for inpatient rehab next best solution would be for the patient to have home care and PT/OT at home since he cannot take his ITP treatment at any of the extended care facilities (despite him having a filled prescription that was $10). I discussed this with the patient and he is in agreement that he would prefer to go home and be able to take his medications. We could have home care draw CBC/CMP. Case was discussed with Nursing, Internal Medicine, General Lot Attendant. We will await what the General Lot Attendant is able to find out, Physical Therapy's evaluation and recommendations. Current Visit: Yes Status: Chronic Priority: High Code(s): D69.3 - IMMUNE THROMBOCYTOPENIC PURPURA SNOMED Code(s): 77676387
[2019-12-28] MEDS ORDERED: traMADol 50 MG TAB PO STA (16:02)
[2019-12-28] MEDS ORDERED: ACETAMINOPHEN TAB 325 MG TAB PO PRN (16:48)
[2019-12-28] MEDS ORDERED: ALPRAZolam 0.25 MG TAB PO PRN (16:50)
[2019-12-28 17:00] LABS: Glucose,Whole Blood 206 mg/dL (75-99)
[2019-12-28] MEDS: INSULIN ASPART (NovoLOG) 100 UNIT/ML VIAL SQ SCH ×4 (18:01→21:06)
[2019-12-28] MEDS: NYSTATIN 100,000 UNIT/ML SUSP 500,000 UNIT/5 ML CUP PO SCH ×2 (18:01→21:27)
[2019-12-28] MEDS: hydrALAZINE HCL 50 MG TAB PO SCH (18:01)
--- NOTE | 2019-12-28 18:59 | HP ---
HISTORY AND PHYSICAL CHIEF COMPLAINT: Thrombocytopenia. HISTORY OF PRESENT ILLNESS: This 79-year-old gentleman with a past history of atrial fibrillation, diabetes type 2, hypertension, hyperlipidemia, history of renal disease, history of melanoma, history of CAD, CABG, history of anxiety, depression, being followed by Dr. Rosenberg in the outpatient setting recently admitted with ITP to [facility]. Patient received multiple units of platelet transfusions. The patient is apparently resistant to steroids and Rituxan. The patient had apparently steroid myopathy. The patient has been started on Promacta, because of financial considerations, which was not given apparently. The currently the platelet count is 14,000. The patient is mildly confused. The patient complained of generalized weakness and tiredness. There is no history of fever, rigors or chills. No history of headache, loss of consciousness, seizures at this time. PAST MEDICAL HISTORY: Atrial fibrillation, history of diabetes type 2, hypertension, hyperlipidemia, disorder, history of melanoma, anxiety and depression. The patient was sent back from the [facility] on the Post. MEDICATIONS: Prior to admission include home medications: 1. Ultram 50 mg p.o. b.i.d. p.r.n. 2. Klonopin 2 mg q.h.s. 3. Tylenol 650 q.6 p.r.n. 4. Apresoline 50 mg a.c. t.i.d. 5. Nystatin. 6. Metoprolol 25 mg p.o. b.i.d. 7. Lispro 27 units q.h.s. 8. NovoLog scale. 9. Trazodone 100 mg q.h.s. 10.Prednisone 60 mg p.o. daily. 11.Vitamin C 1 p.o. daily. 12.Prograf 1 mg p.o. daily. 13.Protonix 40 mg p.o. daily. 14.Multivitamins 1 p.o. daily. 15.Magnesium oxide 250 mg p.o. daily. 16.Promacta that is eltrombopag 50 mg p.o. daily. 17.Tums 1000 mg. 18.Norvasc 5 mg p.o. daily. 19.Flomax 0.4. 20.Levoxyl 25 mg p.o. daily. 21.Basaglar 27 units subcu daily. 22.Proscar 5 mg p.o. daily. 23.Cymbalta 120 mg p.o. daily. 24.Lipitor 20 mg q.h.s. 25.Elavil 100 mg q.h.s. ALLERGIES: MORPHINE. FAMILY HISTORY: History of DVT, skin cancer in the family. SOCIAL HISTORY: No history of smoking. Occasional alcohol intake. REVIEW OF SYSTEMS: ENT: Diminished vision. Diminished hearing. CARDIOVASCULAR: No angina or palpitations. RESPIRATION no cough or hemoptysis. GI no nausea or vomiting. no dysuria. Nervous System as mentioned earlier. Allergy/Immunology: No asthma or hayfever. Musculoskeletal as mentioned earlier. Hematology/Oncology: As mentioned earlier. Endocrine: Hypothyroidism. Constitutional: As mentioned earlier. DERMATOLOGY: Negative. RHEUMATOLOGY negative. PSYCHIATRY as mentioned earlier. PHYSICAL EXAM: Alert and oriented x2. Pulse 77, blood pressure 128/78, respirations 18. Temp 98.2, pulse ox 96% on room air. HEENT: Oral mucosa moist. NECK is no jugular venous distention. No carotid bruit. No lymph node enlargement. CARDIOVASCULAR: S1, S2 muffled. No S3, no S4. RESPIRATORY: Breath sounds diminished in the bases. Bilateral scattered rhonchi and crackles. Expiratory wheezing also present. ABDOMEN: Soft, nontender. No mass palpable. LEGS: No edema. No swelling. NERVOUS SYSTEM: Higher functions as mentioned earlier. Moves all 4 limbs. No focal motor or sensory deficits. Lymphatics: No lymph nodes palpable in the neck, axillae or groin.. SKIN: No ulcers, no rashes and no bleeding. JOINTS: No active deforming arthropathy. LABS: WBC 10.2, hemoglobin 14.6, platelets are 14, sodium 138, potassium 4.3. Creatinine is 1.59. ASSESSMENT: 1. Thrombocytopenia, idiopathic thrombocytopenia purpura exacerbation. 2. Refractory to steroids and Rituxan. 3. Increased WBC. 4. Gait dysfunction. 5. Change in mental status, metabolic encephalopathy, chronic. 6. Hyponatremia. 7. Increased creatinine with chronic kidney disease stage III. 8. Hypoalbuminemia. 9. Atrial fibrillation. 10.Diabetes mellitus type 2. 11.Hypertension. 12.Hyperlipidemia. 13.History of hypothyroidism. 14.History of melanoma. 15.History of coronary artery disease, coronary artery bypass grafting. 16.Anxiety, depression. 17.Prostate cancer observation. 18.FULL CODE. RECOMMENDATIONS AND DISCUSSION: This 79-year-old gentleman who presented with multiple complex medical issues, we will monitor the patient closely. Continue the current medications, and symptomatic treatment. Resume the home medications. The patient is already on steroids, Promacta has been recommended by Hematology/Oncology. We will continue to monitor. PT/OT evaluation, possible ECF rehab. Guarded prognosis. Dr. Rosenberg will follow on Monday. Further recommendations to follow. MMODL / IJN: [id number] / [facility]
[2019-12-28 20:36] LABS: Glucose,Whole Blood 97 mg/dL (75-99)
[2019-12-28] MEDS ORDERED: INSULIN DETEMIR (LEVEMIR) 100 UNIT/ML SYR SQ SCH (21:00)
[2019-12-28] MEDS: METOPROLOL TARTRATE 25 MG TAB PO SCH (21:17)
[2019-12-28] MEDS: ATORVASTATIN 20 MG TAB PO SCH (21:24)
[2019-12-28] MEDS: AMITRIPTYLINE HCL 50 MG TAB PO SCH (21:24)
[2019-12-28] MEDS: traMADol 50 MG TAB PO SCH (21:25)
[2019-12-28] MEDS: traZODone HCL 100 MG TAB PO SCH (21:27)
[2019-12-29 02:11] LABS: Glucose,Whole Blood 74 mg/dL (75-99)
[2019-12-29 02:28] LABS: Glucose,Whole Blood 87 mg/dL (75-99)
[2019-12-29] MEDS: ELTROMBOPAG OLAMINE PO SCH (05:14)
[2019-12-29] MEDS: LEVOTHYROXINE 25 MCG TAB PO SCH (05:15)
[2019-12-29 06:34] LABS: Anisocytosis Slight; Basophils % (A) 0 %; Eosinophils # (A) 0.1 k/uL (0-0.7); Eosinophils % (A) 1 %; HCT 45.2 % (39.0-53.0); HGB 14.8 gm/dL (13.0-17.5); Lymphocytes # (A) 1.5 k/uL (1.0-4.8); Lymphocytes % (A) 14 %; MCH 30.2 pg (25.0-35.0); MCHC 32.8 g/dL (31.0-37.0); MCV 91.9 fL (80.0-100.0); Mean Platelet Volume 8.5; Monocytes # (A) 0.5 k/uL (0-1.0); Monocytes % (A) 4 %; Neutrophils # (A) 8.5 k/uL (1.3-7.7); Neutrophils % (A) 81 %; RBC 4.92 m/uL (4.30-5.90); RDW 17.7 % (11.5-15.5); WBC 10.6 k/uL (3.8-10.6)
[2019-12-29 06:42] LABS: Platelet Count 6 k/uL (150-450)
[2019-12-29 06:49] LABS: Calcium 7.6 mg/dL (8.4-10.2); Potassium 3.6 mmol/L (3.5-5.1)
[2019-12-29 07:29] LABS: Glucose,Whole Blood 48 mg/dL (75-99)
[2019-12-29 07:45] LABS: Glucose,Whole Blood 65 mg/dL (75-99)
[2019-12-29 07:59] LABS: Glucose,Whole Blood 128 mg/dL (75-99)
[2019-12-29] MEDS: INSULIN ASPART (NovoLOG) 100 UNIT/ML VIAL SQ SCH ×8 (08:56→20:53)
[2019-12-29] MEDS: CALCIUM CARBONATE 500 MG CHEWABLE PO SCH (09:09)
[2019-12-29] MEDS: FINASTERIDE 5 MG TAB PO SCH (09:10)
[2019-12-29] MEDS: DULoxetine HCL 60 MG CAPSULE.DR PO SCH (09:10)
[2019-12-29] MEDS: TAMSULOSIN 0.4 MG CAP.ER.24H PO SCH (09:10)
[2019-12-29] MEDS: VIT A,C & E-LUTEIN-MINERALS 1 EACH TAB PO SCH (09:11)
[2019-12-29] MEDS: MAGNESIUM OXIDE 400 MG TAB PO SCH (09:11)
[2019-12-29] MEDS: predniSONE 20 MG TAB PO SCH (09:11)
[2019-12-29] MEDS: PANTOPRAZOLE 40 MG TABLET PO SCH (09:11)
[2019-12-29] MEDS: amLODIPine 5 MG TAB PO SCH (09:11)
[2019-12-29] MEDS: hydrALAZINE HCL 50 MG TAB PO SCH ×3 (09:12→17:49)
[2019-12-29] MEDS: MULTIVITAMINS, THERA 1 EACH TAB PO SCH (09:12)
[2019-12-29] MEDS: TACROLIMUS 1 MG CAP PO SCH (09:13)
[2019-12-29] MEDS: METOPROLOL TARTRATE 25 MG TAB PO SCH ×2 (09:13→20:54)
[2019-12-29] MEDS: NYSTATIN 100,000 UNIT/ML SUSP 500,000 UNIT/5 ML CUP PO SCH ×4 (09:13→21:45)
[2019-12-29] MEDS: traMADol 50 MG TAB PO SCH ×2 (09:14→20:54)
[2019-12-29 11:31] LABS: Glucose,Whole Blood 217 mg/dL (75-99)
--- NOTE | 2019-12-29 16:38 | PN ---
PROGRESS NOTE . DATE OF SERVICE: 12/29/2019 This 79-year-old gentleman admitted with thrombocytopenia, also was confused. The patient also had uncontrolled blood sugars, hypoglycemia, sugars of 41. Insulin doses were adjusted. The p.o. food intake appears to be erratic. Platelets 6 today. One unit transfusion being arranged. No chest pain. No palpitations. PAST MEDICAL HISTORY: Reviewed. REVIEW OF SYSTEMS: Cardiovascular: No angina. Respiration as mentioned earlier. GI: As mentioned earlier. no dysuria. Nervous systems: No numbness or weakness. MEDICATIONS: Reviewed and include: 1. Tylenol p.r.n. 2. Xanax. 3. Elavil. 4. Norvasc. 5. Lipitor. 6. Tums. 7. Klonopin. 8. Cymbalta. 9. Proscar. 10.Apresoline. 11.NovoLog scale. 12.Levemir. 13.Synthroid. 14.Magnesium oxide. 15.Lopressor. 16.Multivitamins. 17.Narcan. 18.Promacta, eltrombopag. 19.Mycostatin. 20.Protonix. 21.Prednisone. 22.Prograf. 23.Flomax. 24.Ultram. 25.Desyrel. PHYSICAL EXAM: Patient is alert, oriented x2. Pulse 83. Blood pressure 130/56, respiration 17, temperature 97.8, pulse ox 97% on room air. HEENT: Conjunctivae normal. Oral mucosa moist. NECK is no jugular venous distention. No carotid bruit. No lymph node enlargement. Cardiovascular systems: S1, S2 muffled. Respiration: Breath sounds diminished in the bases. A few scattered rhonchi and crackles. ABDOMEN: Soft, nontender. LEGS: No edema. No swelling. NERVOUS SYSTEM: Diffusely weak. LABS: At this time, WBC 10.6, hemoglobin 14.8, platelets 6 and creatinine is 1.44, glucose 41. ASSESSMENT: 1. Thrombocytopenia, idiopathic thrombocytic purpura exacerbation, refractory failure of outpatient treatment. 2. Refractory to steroids and Rituxan. 3. Increased WBC. 4. Gait dysfunction. 5. Diabetes mellitus type 2 uncontrolled with hypoglycemia. 6. Change in mental status, metabolic encephalopathy, chronic. 7. Hyponatremia. 8. Increased creatinine with chronic kidney disease stage III baseline. 9. Hypoalbuminemia. 10.Atrial fibrillation chronic. 11.Diabetes mellitus type 2. 12.Hypertension. 13.Hyperlipidemia. 14.History of hypothyroidism. 15.History of melanoma. 16.History of coronary artery disease, coronary artery bypass grafting. 17.Anxiety, depression. 18.Prostate cancer on observation. 19.FULL CODE. RECOMMENDATIONS AND DISCUSSION: Recommend to continue current management and continue with Promacta. Otherwise recommend Dr. Rosenberg will follow. This patient will require subacute rehab for continued rehabilitation as well as monitoring of the platelets and blood sugars closely. The overall prognosis guarded. The rest of medications noted and further recommendations to follow. MMODL / IJN: [id number] /
[2019-12-29 17:18] LABS: Glucose,Whole Blood 112 mg/dL (75-99)
[2019-12-29 19:57] LABS: Glucose,Whole Blood 295 mg/dL (75-99)
[2019-12-29] MEDS: ATORVASTATIN 20 MG TAB PO SCH (20:53)
[2019-12-29] MEDS: AMITRIPTYLINE HCL 50 MG TAB PO SCH (20:53)
[2019-12-29] MEDS: INSULIN DETEMIR (LEVEMIR) 100 UNIT/ML SYR SQ SCH (20:54)
[2019-12-29] MEDS: traZODone HCL 100 MG TAB PO SCH (20:55)
[2019-12-29] MEDS: clonazePAM 1 MG TAB PO PRN (23:41)
[2019-12-30 02:01] LABS: Glucose,Whole Blood 89 mg/dL (75-99)
[2019-12-30] MEDS: ELTROMBOPAG OLAMINE PO SCH (05:06)
[2019-12-30] MEDS: LEVOTHYROXINE 25 MCG TAB PO SCH (05:06)
[2019-12-30 06:37] LABS: Anisocytosis Slight; Basophils % (A) 0 %; Eosinophils % (A) 1 %; HCT 41.6 % (39.0-53.0); HGB 13.8 gm/dL (13.0-17.5); Lymphocytes # (A) 0.5 k/uL (1.0-4.8); Lymphocytes % (A) 5 %; MCH 30.2 pg (25.0-35.0); MCHC 33.1 g/dL (31.0-37.0); MCV 91.1 fL (80.0-100.0); Mean Platelet Volume 12.9; Monocytes # (A) 0.4 k/uL (0-1.0); Monocytes % (A) 5 %; Neutrophils # (A) 8.2 k/uL (1.3-7.7); Neutrophils % (A) 89 %; RBC 4.57 m/uL (4.30-5.90); RDW 17.7 % (11.5-15.5); WBC 9.3 k/uL (3.8-10.6)
[2019-12-30 06:41] LABS: Platelet Count 18 k/uL (150-450)
[2019-12-30 06:47] LABS: Calcium 7.9 mg/dL (8.4-10.2); Potassium 3.9 mmol/L (3.5-5.1)
[2019-12-30 07:03] LABS: Large Platelets Present
[2019-12-30 07:16] LABS: Glucose,Whole Blood 83 mg/dL (75-99)
[2019-12-30] MEDS: predniSONE 20 MG TAB PO SCH (09:15)
[2019-12-30] MEDS: CALCIUM CARBONATE 500 MG CHEWABLE PO SCH (09:15)
[2019-12-30] MEDS: DULoxetine HCL 60 MG CAPSULE.DR PO SCH (09:15)
[2019-12-30] MEDS: FINASTERIDE 5 MG TAB PO SCH (09:15)
[2019-12-30] MEDS: PANTOPRAZOLE 40 MG TABLET PO SCH (09:16)
[2019-12-30] MEDS: MAGNESIUM OXIDE 400 MG TAB PO SCH (09:16)
[2019-12-30] MEDS: MULTIVITAMINS, THERA 1 EACH TAB PO SCH (09:16)
[2019-12-30] MEDS: traMADol 50 MG TAB PO SCH ×2 (09:16→20:52)
[2019-12-30] MEDS: TAMSULOSIN 0.4 MG CAP.ER.24H PO SCH (09:17)
[2019-12-30] MEDS: METOPROLOL TARTRATE 25 MG TAB PO SCH ×2 (09:17→20:52)
[2019-12-30] MEDS: VIT A,C & E-LUTEIN-MINERALS 1 EACH TAB PO SCH (09:19)
[2019-12-30] MEDS: NYSTATIN 100,000 UNIT/ML SUSP 500,000 UNIT/5 ML CUP PO SCH ×4 (09:21→21:01)
[2019-12-30] MEDS: TACROLIMUS 1 MG CAP PO SCH (09:25)
[2019-12-30] MEDS: INSULIN ASPART (NovoLOG) 100 UNIT/ML VIAL SQ SCH ×5 (09:27→20:51)
[2019-12-30 11:39] LABS: Glucose,Whole Blood 142 mg/dL (75-99)
[2019-12-30] MEDS ORDERED: Potassium Replacement Protocol 1 EACH MISC MISCELLANE PRN (11:56)
[2019-12-30] MEDS: hydrALAZINE HCL 50 MG TAB PO SCH ×3 (12:07→17:42)
[2019-12-30] MEDS: amLODIPine 5 MG TAB PO SCH (12:07)
--- NOTE | 2019-12-30 13:53 | P.PN ---
Subjective Progress Note Date: 12/30/19 This a 79-year-old admitted with thrombocytopenia, confusion, uncontrolled blood sugars, and multiple other medical issues. Yesterday platelets dropped to 6, received transfusion of platelets, with current platelet count up to 18. Renal function improving down to 1.03. Isolated episode of hypotension with systolic blood pressure in the 90s, repeat in progress. Blood sugar this morning 83. Objective - Vital Signs Vital signs: Vital Signs Temp 97.6 F 12/30/19 05:00 Pulse 73 12/30/19 09:30 Resp 18 12/30/19 05:00 BP 135/79 12/30/19 09:30 Pulse Ox 93 L 12/30/19 05:00 Intake & Output 12/29/19 12/30/19 12/30/19 18:59 06:59 18:59 Intake Total 442 Output Total 350 450 Balance -350 -8 Intake: Oral 240 Blood Product 202 Platelet Irr Pheresis 2 202 Acda Unit [id number] Output: Urine 350 450 Other: Voiding Method Urinal Urinal - Exam VITAL SIGNS: As above GENERAL: Sitting up in bed, no acute distress. HEENT: Conjunctivae normal. eyes normal. Scattered faint petechiae in roof of mouth, Oral mucosa moist NECK: No JVD. No thyroid enlargement. No LNs CARDIOVASCULAR: S1, S2 irregular.. No murmur RESPIRATION: Breath sounds diminished in the bases. No rhonchi or crackles. No bronchial breathing. ABDOMEN: Soft, nontender . No guarding. no masses palpable. No ascites, No hepatosplenomegaly.Bowel sounds heard. LEGS: No edema. no swelling. SKIN: warm, dry. Minimal scattered petechiae bilateral lower extremities. Multiple bruises upper and lower extremities PSYCHIATRY: Alert and oriented X3, mood and affect normal. NERVOUS SYSTEM: Cranial N 2-12 grossly normal. Moves all 4 limbs. No focal de ficits. Strength and sensation grossly intact. - Labs CBC & Chem 7: 12/30/19 05:44 12/30/19 05:44 Labs: Abnormal Lab Results - Last 24 Hours (Table) 12/29/19 12/29/19 12/30/19 Range/Units 17:17 19:53 05:44 RDW 17.7 H (11.5-15.5) % Plt Count 18 L* D (150-450) k/uL Neutrophils # 8.2 H (1.3-7.7) k/uL Lymphocytes # 0.5 L (1.0-4.8) k/uL Sodium (137-145) mmol/L BUN (9-20) mg/dL POC Glucose (mg/dL) 112 H 295 H (75-99) mg/dL Calcium (8.4-10.2) mg/dL 12/30/19 12/30/19 Range/Units 05:44 11:37 RDW (11.5-15.5) % Plt Count (150-450) k/uL Neutrophils # (1.3-7.7) k/uL Lymphocytes # (1.0-4.8) k/uL Sodium 135 L (137-145) mmol/L BUN 29 H (9-20) mg/dL POC Glucose (mg/dL) 142 H (75-99) mg/dL Calcium 7.9 L (8.4-10.2) mg/dL Assessment and Plan Assessment: Acute ITP exacerbation, had been refractory to high-dose steroids, Rituxan, started on Promacta prior to discharge to [facility], unable to continue taking Promacta due to cost at [facility], status post platelets transfusion. Generalized weakness with increased fatigue, bruising, petechiae, possible steroid myopathy Acute metabolic encephalopathy, secondary to the above, resolved Chronic atrial fibrillation Diabetes mellitus 2, uncontrolled, hyperglycemia, hypoglycemia Hypertension Hyperlipidemia Chronic renal failure III with history of renal transplant, baseline creatinine 1.4 CAD, history of CABG Anxiety Depression History of prostate cancer, being followed by urology outpatient. Plan: Continue on current medication regime ,monitoring and symptomatic treatment. Mild Hypoglycemia this morning, scheduled NovoLog discontinued, maintain Levemir and NovoLog sliding scale with close monitoring of Accu-Cheks. Isolated episode of hypotension, repeat blood pressure pending. Promacta resumed. Patient states was unhappy with his physical therapy at [facility] subacute rehab, and does not qualify for inpatient rehab as per peer to peer conducted last week between PCP Dr. Rosenberg and insurance company. Close monitori ng of platelets, renal function. Transfusion parameters as per oncology. Patient will be discharged home with home care pending final DC recommendations and clearance from oncology. Weekly monitoring of coags. The impression and plan of care has been dictated as directed. : I performed a history and examination of this patient, discussed the same with the dictator. I agree with the dictator's note ,documented as a scribe. Any additional findings or plans will be noted.
--- NOTE | 2019-12-30 14:07 | P.PN ---
Subjective Progress Note Date: 12/30/19 Principal diagnosis: ITP, refractory in follow-up today, patient is doing well, denies bleeding, hematomas, most of the bruising on his forearms from his last hospitalization are in various stages of healing. He has no physical complaints. Objective - Vital Signs Vital signs: Vital Signs Temp 97.5 F L 12/30/19 13:00 Pulse 93 12/30/19 13:00 Resp 18 12/30/19 13:00 BP 129/73 12/30/19 13:00 Pulse Ox 95 12/30/19 13:00 Intake & Output 12/29/19 12/30/19 12/30/19 18:59 06:59 18:59 Intake Total 442 Output Total 350 450 Balance -350 -8 Intake: Oral 240 Blood Product 202 Platelet Irr Pheresis 2 202 Acda Unit [id number] Output: Urine 350 450 Other: Voiding Method Urinal Urinal - Constitutional General appearance: Present: average body habitus, cooperative, no acute di stress - EENT Eyes: Present: anicteric sclerae, EOMI ENT: Present: hearing grossly normal - Respiratory Respiratory: bilateral: CTA - Cardiovascular Heart sounds: normal: S1, S2 - Peripheral edema leg Peripheral Edema: bilateral: Trace - Gastrointestinal General gastrointestinal: Present: normal bowel sounds, soft. Absent: absent bowel sounds, decreased bowel sounds, distended, hepatomegaly, hyperactive bowel sounds, organomegaly, rigid, scaphoid, splenomegaly, tenderness, umbilical hernia, ventral hernia - Integumentary Integumentary Comment(s): bruising on the forearms is improved - Neurologic Neurologic: Present: focal deficits - Musculoskeletal Musculoskeletal: Present: generalized weakness, strength equal bilaterally - Psychiatric Psychiatric: Present: A&O x's 3, appropriate affect, intact judgment & insight - Labs CBC & Chem 7: 12/30/19 05:44 12/30/19 05:44 Labs: Abnormal Lab Results - Last 24 Hours (Table) 12/29/19 12/29/19 12/30/19 Range/Units 17:17 19:53 05:44 RDW 17.7 H (11.5-15.5) % Plt Count 18 L* D (150-450) k/uL Neutrophils # 8.2 H (1.3-7.7) k/uL Lymphocytes # 0.5 L (1.0-4.8) k/uL Sodium (137-145) mmol/L BUN (9-20) mg/dL POC Glucose (mg/dL) 112 H 295 H (75-99) mg/dL Calcium (8.4-10.2) mg/dL 12/30/19 12/30/19 Range/Units 05:44 11:37 RDW (11.5-15.5) % Plt Count (150-450) k/uL Neutrophils # (1.3-7.7) k/uL Lymphocytes # (1.0-4.8) k/uL Sodium 135 L (137-145) mmol/L BUN 29 H (9-20) mg/dL POC Glucose (mg/dL) 142 H (75-99) mg/dL Calcium 7.9 L (8.4-10.2) mg/dL Assessment and Plan (1) Idiopathic thrombocytopenia purpura Narrative/Plan: Patient's platelet count is 18,000 post transfusion for plt of 6K yesterday. No signs or symptoms of bleeding, hemoglobin is stable. Patient has started Promacta again. He is denying any side effects. Patient is refractory to steroids and monoclonal antibody therapy. Promacta is third line treatment. Would like to continue with 50 mg by mouth daily (Obtained another sample of Promacta, sent to pharmacy, pt resumed 12/28. Dosing is 50 mg daily, 1 hour before or 2 hours after eating, not within 4 hours of consuming anything with calcium. Taking at 5 AM) Spoke with Physical Therapy, feel that pt is doing fairly well. Hope is for home with home care, PT/OT. Discussed previously, pending pt hospital course as to how his case will proceed: Patient was sent to [facility] for rehabilitation. He was unable to take Promacta (started earlier this week for ITP as he was refractory to steroids and Rituxan) due to the cost so, he was sent with platelet transfusion guidelines. Patient was have CBC twice a week and he was to be transfused with 1 unit of single donor platelets for platelet count less than 10,000. Patient was sent back to the hospital for platelet count of 14,000, no signs or symptoms of bleeding, stable hemoglobin. Patient complained that [facility] gym is closed and that someone came into his room and gave him exercises to do in the bed-he was unsure as to how much rehab he was actually getting. Have requested PT/OT to evaluate and treat patient. If there is any possibility that he can be treated inpatient rehab that would be the preferred method of r ehabilitation as he will be able to take his Promacta. If patient does not qualify for inpatient rehab next best solution would be for the patient to have home care and PT/OT at home since he cannot take his ITP treatment at any of the extended care facilities (despite him having a filled prescription that was $10). I discussed this with the patient and he is in agreement that he would prefer to go home and be able to take his medications. We could have home care draw CBC/CMP. Current Visit: Yes Status: Chronic Priority: High Code(s): D69.3 - IMMUNE THROMBOCYTOPENIC PURPURA SNOMED Code(s): 14565270 Plan: Patient encouraged to monitor oral intake/hydration. Renal function much improved since admit. He verbalized understanding.
[2019-12-30 17:18] LABS: Glucose,Whole Blood 371 mg/dL (75-99)
[2019-12-30 20:05] LABS: Glucose,Whole Blood 455 mg/dL (75-99)
[2019-12-30] MEDS ORDERED: INSULIN ASPART (NovoLOG) 100 UNIT/ML VIAL SQ ONE (20:28)
[2019-12-30] MEDS: INSULIN DETEMIR (LEVEMIR) 100 UNIT/ML SYR SQ SCH (20:52)
[2019-12-30] MEDS: ATORVASTATIN 20 MG TAB PO SCH (20:52)
[2019-12-30] MEDS: AMITRIPTYLINE HCL 50 MG TAB PO SCH (20:52)
[2019-12-30] MEDS: traZODone HCL 100 MG TAB PO SCH (20:52)
[2019-12-30] MEDS: clonazePAM 1 MG TAB PO PRN (21:01)
[2019-12-31 01:53] LABS: Glucose,Whole Blood 190 mg/dL (75-99)
[2019-12-31] MEDS: LEVOTHYROXINE 25 MCG TAB PO SCH (05:16)
[2019-12-31] MEDS: ELTROMBOPAG OLAMINE PO SCH (05:16)
--- NOTE | 2019-12-31 06:08 | P.CONS ---
History of Present Illness - Chief Complaint medical debility - History of Present Illness I had the opportunity to see patient for inpatient rehab consultation with regard to medical debility. He is known to me from recent inpatient consultation similar problem. He was admitted this time December 28 with ITP, platelet count 14,000. Seen by OT who reports supervision for lower dressing but modified independent with upper dressing and bathing and completely independent with toileting and functional mobility. Also reports modified independent transfers and gait 100 feet with roller walker. Review of Systems Review of systems: ENT: Denies sneezes or discharge. Eyes: Denies discharge or photophobia. Cardiac: Denies chest pain or palpitation. Pulmonary: Denies cough or shortness of breath. Gastrointestinal: Denies nausea, emesis, constipation, diarrhea. Genitourinary: Denies discharge or frequency. Musculoskeletal: Denies muscle or bone aches. Neurologic: Denies motor or sensory change. Endocrine: Denies shakes or sweats. Oncology: Denies cancers. Dermatologic: Denies rash, itching, pruritus. ALLERGY/immunology: Denies sneezes, rashes. 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 History of Any Multi-Drug Resistant Organisms: None Reported Past Surgical History: Coronary Bypass/CABG, Orthopedic Surgery Additional Past Surgical History / Comment(s): kidney transplant, parathyoid surgery, knee Past Anesthesia/Blood Transfusion Reactions: No Reported Reaction Past Psychological History: Anxiety, Depression Smoking Status: Never smoker Past Alcohol Use History: Rare Past Drug Use History: None Reported - Past Family History Father Family Medical History: Deep Vein Thrombosis (DVT) Son(s) Family Medical History: Cancer Additional Family Medical History / Comment(s): Skin cancer. Medications and Allergies Home Medications Medication Instructions Recorded Confirmed Type Amitriptyline HCl [Elavil] 100 mg PO HS@2100 02/09/17 12/28/19 History Finasteride [Proscar] 5 mg PO DAILY@0902/09/17 12/28/19 History Magnesium Oxide [Mag-Ox] 250 mg PO DAILY@89902/09/17 12/28/19 History Tamsulosin HCl [Flomax] 0.4 mg PO DAILY@89902/09/17 12/28/19 History DULoxetine HCL [Cymbalta] 120 mg PO DAILY 04/19/18 12/28/19 History Multivitamins, Thera [Multivitamin 1 tab PO DAILY@89912/31/18 12/28/19 History (formulary)] Metoprolol Tartrate [Lopressor] 25 mg PO BID@899,209901/03/19 12/28/19 History Atorvastatin Calcium [Lipitor] 20 mg PO HS@209910/14/19 12/28/19 History traZODone HCL 100 mg PO HS@209910/14/19 12/28/19 History INSULIN LISPRO (humaLOG) [humaLOG] 27 unit INJ [facility] 12/18/19 12/28/19 History Levothyroxine Sodium [Levoxyl] 25 mcg PO DAILY@59912/18/19 12/28/19 History Nystatin 100,000 Unit/ml Susp 5 ml PO QID 12/18/19 12/28/19 History [Mycostatin Oral Susp] Vit C/E/Zn/Coppr/Lutein/Zeaxan 1 cap PO DAILY@89912/18/19 12/28/19 History [Preservision Areds 2 Softgel] amLODIPine [Norvasc] 5 mg PO DAILY@89912/18/19 12/28/19 History hydrALAZINE HCL [Apresoline] 50 mg PO AC-TID 12/18/19 12/28/19 History Acetaminophen Tab [Tylenol] 650 mg PO Q6HR PRN tab 12/24/19 12/28/19 Rx clonazePAM [KlonoPIN] 2 mg PO HS PRN #6 tab 12/24/19 12/28/19 Rx Calcium Carbonate [Tums] 1,000 mg PO DAILY@89912/28/19 12/28/19 History Eltrombopag Olamine [Promacta] 50 mg PO DAILY@89912/28/19 12/28/19 History INSULIN LISPRO (HumaLOG) [humaLOG] See Protocol SQ [facility] 12/28/19 12/28/19 History Insulin Glargine,Hum.rec.anlog 27 unit SQ DAILY@209912/28/19 12/28/19 History [Basaglar Kwikpen U-100] Pantoprazole [Protonix] 40 mg PO DAILY@89912/28/19 12/28/19 History Tacrolimus [Prograf] 1 mg PO DAILY@89912/28/19 12/28/19 History predniSONE [Deltasone] 60 mg PO DAILY@89912/28/19 12/28/19 History traMADol HCL 50 mg PO BID 12/28/19 12/28/19 History Allergies Allergy/AdvReac Type Severity Reaction Status Date / Time morphine Allergy Itching Verified 12/28/19 11:16 Physical Exam Vitals: Vital Signs Temp Pulse Resp BP Pulse Ox 12/31/19 05:00 97.7 F 84 20 132/79 95 12/30/19 20:38 97.7 F 85 20 150/93 96 12/30/19 17:16 87 144/87 12/30/19 13:00 97.5 F L 93 18 129/73 95 12/30/19 12:04 72 147/93 12/30/19 09:30 73 135/79 Intake and Output 12/30/19 12/30/19 12/31/19 14:59 22:59 06:59 Intake Total 850 Output Total 500 Balance 850 -500 Intake: Oral 850 Output: Urine 500 Other: Voiding Method Urinal Urinal Urinal # Voids 2 1 2 Skin: Good color, texture, turgor. General: overweight build and comfortable appearance. Head: Normocephalic, atraumatic. Eyes: Symmetric. Pupils equal round. Ears: Symmetric. Hearing within normal limits. Mouth: Clear. Neck: Supple. Carotid without bruit. Cardiac: Regular rate and rhythm. Lungs: Clear anteriorly and posteriorly. Abdomen: Soft active nontender. Extremities: Normal tone. Neurological: Mental status: Alert, cooperative, pleasant. Cranial nerves: Symmetric facial tone and trapezius. Motor: Normal strength and isolation all 4 limbs. Sensation: Intact throughout. DTRs: Symmetric and equal throughout. Mobility: Sits without assistance or verbal cueing or loss of balance. Results CBC & Chem 7: 12/30/19 05:44 12/30/19 05:44 Labs: Abnormal Lab Results - Last 24 Hours (Table) 12/30/19 12/30/19 12/30/19 Range/Units 05:44 05:44 11:37 RDW 17.7 H (11.5-15.5) % Plt Count 18 L* D (150-450) k/uL Neutrophils # 8.2 H (1.3-7.7) k/uL Lymphocytes # 0.5 L (1.0-4.8) k/uL Sodium 135 L (137-145) mmol/L BUN 29 H (9-20) mg/dL POC Glucose (mg/dL) 142 H (75-99) mg/dL Calcium 7.9 L (8.4-10.2) mg/dL 12/30/19 12/30/19 12/31/19 Range/Units 17:15 20:03 01:52 RDW (11.5-15.5) % Plt Count (150-450) k/uL Neutrophils # (1.3-7.7) k/uL Lymphocytes # (1.0-4.8) k/uL Sodium (137-145) mmol/L BUN (9-20) mg/dL POC Glucose (mg/dL) 371 H 455 H 190 H (75-99) mg/dL Calcium (8.4-10.2) mg/dL Assessment and Plan (1) Idiopathic thrombocytopenia purpura Current Visit: Yes Status: Chronic Priority: High Code(s): D69.3 - IMMUNE THROMBOCYTOPENIC PURPURA SNOMED Code(s): 15017887 (2) Myopathy Current Visit: No Status: Acute Priority: High Code(s): G72.9 - MYOPATHY, UNSPECIFIED SNOMED Code(s): 26204027 (3) History of renal transplant Current Visit: No Status: Chronic Priority: Medium Code(s): Z94.0 - KIDNEY TRANSPLANT STATUS SNOMED Code(s): 474640782 Plan: comments and plan: At this time patient doing well and, in fact independent, with OT. Anticipate similar report from PT. At this time do not anticipate need of inpatient rehab but [facility] your clinical correlation.
[2019-12-31 06:49] LABS: Anisocytosis Slight; Basophils % (A) 0 %; Eosinophils % (A) 0 %; HCT 42.2 % (39.0-53.0); HGB 13.6 gm/dL (13.0-17.5); Lymphocytes # (A) 0.4 k/uL (1.0-4.8); Lymphocytes % (A) 4 %; MCH 29.4 pg (25.0-35.0); MCHC 32.3 g/dL (31.0-37.0); MCV 90.9 fL (80.0-100.0); Mean Platelet Volume 7.6; Monocytes # (A) 0.4 k/uL (0-1.0); Monocytes % (A) 4 %; Neutrophils # (A) 9.2 k/uL (1.3-7.7); Neutrophils % (A) 91 %; RBC 4.64 m/uL (4.30-5.90); RDW 17.7 % (11.5-15.5); WBC 10.1 k/uL (3.8-10.6)
[2019-12-31 06:55] LABS: Calcium 8.2 mg/dL (8.4-10.2); Potassium 4.5 mmol/L (3.5-5.1)
[2019-12-31 06:58] LABS: Glucose,Whole Blood 229 mg/dL (75-99)
[2019-12-31 07:20] LABS: Platelet Count 11 k/uL (150-450)
[2019-12-31] MEDS: METOPROLOL TARTRATE 25 MG TAB PO SCH (08:19)
[2019-12-31] MEDS: TACROLIMUS 1 MG CAP PO SCH (08:19)
[2019-12-31] MEDS: MAGNESIUM OXIDE 400 MG TAB PO SCH (08:19)
[2019-12-31] MEDS: FINASTERIDE 5 MG TAB PO SCH (08:19)
[2019-12-31] MEDS: TAMSULOSIN 0.4 MG CAP.ER.24H PO SCH (08:19)
[2019-12-31] MEDS: DULoxetine HCL 60 MG CAPSULE.DR PO SCH (08:19)
[2019-12-31] MEDS: PANTOPRAZOLE 40 MG TABLET PO SCH (08:19)
[2019-12-31] MEDS: hydrALAZINE HCL 50 MG TAB PO SCH ×2 (08:19→12:47)
[2019-12-31] MEDS: MULTIVITAMINS, THERA 1 EACH TAB PO SCH (08:19)
[2019-12-31] MEDS: amLODIPine 5 MG TAB PO SCH (08:19)
[2019-12-31] MEDS: NYSTATIN 100,000 UNIT/ML SUSP 500,000 UNIT/5 ML CUP PO SCH ×2 (08:19→12:47)
[2019-12-31] MEDS: predniSONE 20 MG TAB PO SCH (08:20)
[2019-12-31] MEDS: INSULIN ASPART (NovoLOG) 100 UNIT/ML VIAL SQ SCH ×2 (08:20→12:48)
[2019-12-31] MEDS: CALCIUM CARBONATE 500 MG CHEWABLE PO SCH (08:20)
[2019-12-31] MEDS: traMADol 50 MG TAB PO SCH (08:20)
[2019-12-31] MEDS: VIT A,C & E-LUTEIN-MINERALS 1 EACH TAB PO SCH (08:20)
--- NOTE | 2019-12-31 11:01 | P.DS ---
Providers Date of admission: 12/29/19 14:27 Expected date of discharge: 12/31/19 Attending physician: Narinder Rosenberg Consults: 12/28/19 03:28 Consult Physician Urgent Consulting Provider: Bear Winn Consult Reason/Comments: ITP, Plt 14 Do you want consulting provider notified?: Yes, Notify in am 12/30/19 11:27 Consult Physician Routine Consulting Provider: Sharath Tomlinson Consult Reason/Comments: inpat rehab Do you want consulting provider notified?: Yes Primary care physician: Narinder Rosenberg Hospital Course: Final Diagnoses: Acute ITP exacerbation, had been refractory to high-dose steroids, Rituxan, started on Promacta prior to discharge to [facility], unable to continue taking Promacta due to cost at [facility]CF, status post platelets transfusion. Generalized weakness with increased fatigue, bruising, petechiae, possible steroid myopathy Acute metabolic encephalopathy, secondary to the above, resolved Chronic atrial fibrillation Diabetes mellitus 2, uncontrolled, hyperglycemia, hypoglycemia Hypertension Hyperlipidemia Chronic renal failure III with history of renal transplant, baseline creatinine 1.4 CAD, history of CABG Anxiety Depression History of prostate cancer, being followed by urology outpatient. Hospital course:This a 79-year-old admitted with thrombocytopenia, confusion, uncontrolled blood sugars, and multiple other medical issues. Yesterday platelets dropped to 6, received transfusion of platelets, with current platelet count up to 18. Renal function improving down to 1.03. Isolated episode of hypotension with systolic blood pressure in the 90s, repeat in progress. Blood sugar this morning 83. Promacta resumed, platelets up to 11. Blood sugars, blood pressure better controlled. Patient will be discharged home with home care today in stable co ndition with guarded prognosis pending final DC recommendations and clearance from oncology. The impression and plan of care has been dictated as directed. : I performed a history and examination of this patient, discussed the same with the dictator. I agree with the dictator's note ,documented as a scribe. Any additional findings or plans will be noted. Patient Condition at Discharge: Stable Plan - Discharge Summary Discharge Rx Participant: No New Discharge Prescriptions: New INSULIN LISPRO (HumaLOG) [humaLOG] 0 unit SQ ACHS #1 vial Magnesium Oxide [Mag-Ox] 400 mg PO DAILY@0900 tab Continue Finasteride [Proscar] 5 mg PO DAILY@0900 Tamsulosin HCl [Flomax] 0.4 mg PO DAILY@0900 Amitriptyline HCl [Elavil] 100 mg PO HS@2100 DULoxetine HCL [Cymbalta] 120 mg PO DAILY Multivitamins, Thera [Multivitamin (formulary)] 1 tab PO DAILY@0900 Metoprolol Tartrate [Lopressor] 25 mg PO BID@0900,2100 Atorvastatin Calcium [Lipitor] 20 mg PO HS@2100 traZODone HCL 100 mg PO HS@2100 Nystatin 100,000 Unit/ml Susp [Mycostatin Oral Susp] 5 ml PO QID Levothyroxine Sodium [Levoxyl] 25 mcg PO DAILY@0600 hydrALAZINE HCL [Apresoline] 50 mg PO AC-TID amLODIPine [Norvasc] 5 mg PO DAILY@0900 Vit C/E/Zn/Coppr/Lutein/Zeaxan [Preservision Areds 2 Softgel] 1 cap PO DAILY@0900 clonazePAM [KlonoPIN] 2 mg PO HS PRN #6 tab PRN Reason: Anxiety Acetaminophen Tab [Tylenol] 650 mg PO Q6HR PRN tab PRN Reason: Fever And/ Or Pain predniSONE [Deltasone] 60 mg PO DAILY@0900 Tacrolimus [Prograf] 1 mg PO DAILY@0900 Pantoprazole [Protonix] 40 mg PO DAILY@0900 Eltrombopag Olamine [Promacta] 50 mg PO DAILY@0900 Calcium Carbonate [Tums] 1,000 mg PO DAILY@0900 traMADol HCL 50 mg PO BID Changed Insulin Glargine,Hum.rec.anlog [Basaglgriselda García U-100] 25 unit SQ DAILY@2099 #0 Discontinued Magnesium Oxide [Mag-Ox] 250 mg PO DAILY@0900 INSULIN LISPRO (humaLOG) [humaLOG] 27 unit INJ ACHS INSULIN LISPRO (HumaLOG) [humaLOG] See Protocol SQ ACHS Discharge Medication List Amitriptyline HCl [Elavil] 100 mg PO HS@209902/09/17 [History] Finasteride [Proscar] 5 mg PO DAILY@0900 02/09/17 [History] Tamsulosin HCl [Flomax] 0.4 mg PO DAILY@0900 02/09/17 [History] DULoxetine HCL [Cymbalta] 120 mg PO DAILY 04/19/18 [History] Multivitamins, Thera [Multivitamin (formulary)] 1 tab PO DAILY@89912/31/18 [History] Metoprolol Tartrate [Lopressor] 25 mg PO BID@0900,209901/03/19 [History] Atorvastatin Calcium [Lipitor] 20 mg PO HS@209910/14/19 [History] traZODone HCL 100 mg PO HS@209910/14/19 [History] Levothyroxine Sodium [Levoxyl] 25 mcg PO DAILY@59912/18/19 [History] Nystatin 100,000 Unit/ml Susp [Mycostatin Oral Susp] 5 ml PO QID 12/18/19 [History] Vit C/E/Zn/Coppr/Lutein/Zeaxan [Preservision Areds 2 Softgel] 1 cap PO DA NIKKI@89912/18/19 [History] amLODIPine [Norvasc] 5 mg PO DAILY@89912/18/19 [History] hydrALAZINE HCL [Apresoline] 50 mg PO AC-TID 12/18/19 [History] Acetaminophen Tab [Tylenol] 650 mg PO Q6HR PRN tab 12/24/19 [Rx] clonazePAM [KlonoPIN] 2 mg PO HS PRN #6 tab 12/24/19 [Rx] Calcium Carbonate [Tums] 1,000 mg PO DAILY@89912/28/19 [History] Eltrombopag Olamine [Promacta] 50 mg PO DAILY@89912/28/19 [History] Pantoprazole [Protonix] 40 mg PO DAILY@89912/28/19 [History] Tacrolimus [Prograf] 1 mg PO DAILY@89912/28/19 [History] predniSONE [Deltasone] 60 mg PO DAILY@89912/28/19 [History] traMADol HCL 50 mg PO BID 12/28/19 [History] INSULIN LISPRO (HumaLOG) [humaLOG] 0 unit SQ ACHS #1 vial 12/31/19 [Rx] Insulin Glargine,Hum.rec.anlog [Basaglar Kwikpen U-100] 25 unit SQ DAILY@2100 #0 12/31/19 [Rx] Magnesium Oxide [Mag-Ox] 400 mg PO DAILY@0900 tab 12/31/19 [Rx] Follow up Appointment(s)/Referral(s): Bear Winn MD [STAFF PHYSICIAN] - 1 Week Narinder Rosenberg DO [Primary Care Provider] - 3 Days Ambulatory/Diagnostic Orders: Complete Blood Count w/diff [LAB.AMB] Time Frame: 3 Days, Location: None Selected Activity/Diet/Wound Care/Special Instructions: Antihypertensives space out 2 hours apart. Confirm patient has diabetic supplies. Pending oncology final DC recommendations and clearance. Discharge Disposition: HOME WITH HOME HEALTH SERVICES
[2019-12-31 11:31] LABS: Glucose,Whole Blood 210 mg/dL (75-99)
[2019-12-31 11:43] VITALS: BP 129/71; PULSE 85; RESP 18; TEMP 97.8
--- NOTE | 2019-12-31 13:34 | P.PN ---
Subjective Progress Note Date: 12/31/19 Principal diagnosis: ITP, refractory in follow-up today, patient continues to do well. Patient was standing at the bedside independently, he was able to get himself back into bed without any assistance. He denies any unintentional bruises, hematoma, bleeding. He has been back on Promacta, no complaints or side effects to report Objective - Vital Signs Vital signs: Vital Signs Temp 97.8 F 12/31/19 11:15 Pulse 85 12/31/19 11:15 Resp 18 12/31/19 11:15 BP 129/71 12/31/19 11:15 Pulse Ox 98 12/31/19 11:15 Intake & Output 12/30/19 12/31/19 12/31/19 18:59 06:59 18:59 Intake Total 850 Output Total 500 400 Balance 850 -500 -400 Intake: Oral 850 Output: Urine 500 400 Other: Voiding Method Urinal Urinal Urinal # Voids 1 2 - Constitutional General appearance: Present: average body habitus, cooperative, no acute distress - EENT Eyes: Present: anicteric sclerae, EOMI ENT: Present: hearing grossly normal - Respiratory Respiratory: bilateral: CTA - Cardiovascular Heart sounds: normal: S1, S2 - Peripheral edema leg Peripheral Edema: bilateral: None - Gastrointestinal General gastrointestinal: Present: normal bowel sounds, soft - Integumentary Integumentary Comment(s): no petechiae or purpura on the lower extremities. Patient does have multiple bruises on the upper extremities, known areas of trauma, various stages of healing. No hematomas - Neurologic Neurologic: Present: CNII-XII intact - Musculoskeletal Musculoskeletal: Present: generalized weakness, strength equal bilaterally - Psychiatric Psychiatric Comment(s): forgetful, needs constant reminders Re: More complex tasks (for example, taking Promacta 2 hours after eating) Psychiatric: Present: A&O x's 3, appropriate affect - Allied health notes Allied health notes reviewed: case management - Labs CBC & Chem 7: 12/31/19 06:24 12/31/19 06:24 Labs: Abnormal Lab Results - Last 24 Hours (Table) 12/30/19 12/30/19 12/31/19 Range/Units 17:15 20:03 01:52 RDW (11.5-15.5) % Plt Count (150-450) k/uL Neutrophils # (1.3-7.7) k/uL Lymphocytes # (1.0-4.8) k/uL Sodium (137-145) mmol/L BUN (9-20) mg/dL Glucose (74-99) mg/dL POC Glucose (mg/dL) 371 H 455 H 190 H (75-99) mg/dL Calcium (8.4-10.2) mg/dL 12/31/19 12/31/19 12/31/19 Range/Units 06:24 06:24 06:56 RDW 17.7 H (11.5-15.5) % Plt Count 11 L* (150-450) k/uL Neutrophils # 9.2 H (1.3-7.7) k/uL Lymphocytes # 0.4 L (1.0-4.8) k/uL Sodium 133 L (137-145) mmol/L BUN 30 H (9-20) mg/dL Glucose 229 H (74-99) mg/dL POC Glucose (mg/dL) 229 H (75-99) mg/dL Calcium 8.2 L (8.4-10.2) mg/dL 12/31/19 Range/Units 11:18 RDW (11.5-15.5) % Plt Count (150-450) k/uL Neutrophils # (1.3-7.7) k/uL Lymphocytes # (1.0-4.8) k/uL Sodium (137-145) mmol/L BUN (9-20) mg/dL Glucose (74-99) mg/dL POC Glucose (mg/dL) 210 H (75-99) mg/dL Calcium (8.4-10.2) mg/dL Assessment and Plan (1) Idiopathic thrombocytopenia purpura Narrative/Plan: Patient's platelet count is 11,000 today, no signs or symptoms of bleeding, hemoglobin is stable, no transfusion. Patient has started Promacta again. He is denying any side effects. Patient is refractory to steroids and monoclonal antibody therapy. Promacta is third line treatment. Pt resumed 12/28. Dosing is 50 mg daily. Easiest regimen for patient to follow, and to meet all the criteria of taking the med, is to take the medication and wait 2 hours before consuming anything (on medication monogram for review this meets both criteria of empty stomach and not taking with calcium containing foods, fluids, medications.). It has been confirmed by nursing and the patient's picked up Promacta prescription at last hospital discharge. Patient does have the medication at home. Ordered home care, PT/OT. Requested a CBC in 48 hours, fax number provided discharge summary. Have also requested that home care will reinforce Promacta education with the patient. The instructions have been typed in the discharge summary. Discussed case with Internal Medicine [employer] and nursing. Current Visit: Yes Status: Chronic Priority: High Code(s): D69.3 - IMMUNE THROMBOCYTOPENIC PURPURA SNOMED Code(s): 36257575
[2019-12-31] MEDS ORDERED: INSULIN DETEMIR (LEVEMIR) 100 UNIT/ML SYR SQ SCH (21:00)
== END 2019-12-31 15:22 | disposition home health service (06) | DRG 813 ==
LOC: EC 02:09 → 5NMEDONC 03:28 → OBSVTOIN 12-29 14:27
PROVIDERS: ADMIT Family Medicine; ATTEND Family Medicine
PROC: 30233R1 Transfusion of Nonautologous Platelets into Peripheral Vein, Percutaneous Approach (ICD-10-PCS; principal; 2019-12-29)
DX: D69.3 Immune thrombocytopenic purpura (principal); G93.41 Metabolic encephalopathy; E87.1 Hypo-osmolality and hyponatremia; G72.0 Drug-induced myopathy; I48.20 Chronic atrial fibrillation, unspecified; Z94.0 Kidney transplant status; C61 Malignant neoplasm of prostate; E03.9 Hypothyroidism, unspecified; E11.22 Type 2 diabetes mellitus with diabetic chronic kidney disease; E11.649 Type 2 diabetes mellitus with hypoglycemia without coma; E11.65 Type 2 diabetes mellitus with hyperglycemia; E78.5 Hyperlipidemia, unspecified; F32.9 Major depressive disorder, single episode, unspecified; F41.9 Anxiety disorder, unspecified; H91.90 Unspecified hearing loss, unspecified ear; I12.9 Hypertensive chronic kidney disease with stage 1 through stage 4 chronic kidney disease, or unspecified chronic kidney disease; I25.10 Atherosclerotic heart disease of native coronary artery without angina pectoris; N18.3 Chronic kidney disease, stage 3 (moderate); R04.0 Epistaxis; T38.0X5A Adverse effect of glucocorticoids and synthetic analogues, initial encounter; Z79.01 Long term (current) use of anticoagulants; Z79.4 Long term (current) use of insulin; Z79.890 Hormone replacement therapy; Z79.899 Other long term (current) drug therapy; Z80.8 Family history of malignant neoplasm of other organs or systems; Z85.820 Personal history of malignant melanoma of skin; Z95.1 Presence of aortocoronary bypass graft; Z83.2 Family history of diseases of the blood and blood-forming organs and certain disorders involving the immune mechanism; R26.9 Unspecified abnormalities of gait and mobility; Z88.5 Allergy status to narcotic agent; Z11.59 Encounter for screening for other viral diseases
CPT/HCPCS: 36415; 80048; 80053; 85025; 86850; 86900; 86901; 99284

== ENCOUNTER 2020-02-23 08:49 | Inpatient (IN) | payer MEDICARE ==
[2020-02-23] MEDS ORDERED: ACETAMINOPHEN TAB 500 MG TAB PO STA (08:54)
[2020-02-23] MEDS ORDERED: IBUPROFEN 600 MG TAB PO STA (08:54)
--- NOTE | 2020-02-23 08:59 | ED ---
General Adult HPI - General Stated complaint: Altered Mental Status Time Seen by Provider: 02/23/20 08:49 Source: EMS, RN notes reviewed, old records reviewed Limitations: altered mental status - History of Present Illness Initial comments: This is a 79-year-old male is brought to the emergency department because of altered mental status. Last night he started to become confused and it got progressively worse throughout the night. Patient 103 fever according to EMS. Patient is unable to give any history. According to EMS there was no exposure to cold. At this time there is no family with the patient so no further history can be obtained. - Related Data Home Medications Medication Instructions Recorded Confirmed Amitriptyline HCl [Elavil] 100 mg PO HS@209902/09/17 12/28/19 Finasteride [Proscar] 5 mg PO DAILY@89902/09/17 12/28/19 Tamsulosin HCl [Flomax] 0.4 mg PO DAILY@89902/09/17 12/28/19 DULoxetine HCL [Cymbalta] 120 mg PO DAILY 04/19/18 12/28/19 Multivitamins, Thera [Multivitamin 1 tab PO DAILY@89912/31/18 12/28/19 (formulary)] Metoprolol Tartrate [Lopressor] 25 mg PO BID@899,209901/03/19 12/28/19 Atorvastatin Calcium [Lipitor] 20 mg PO HS@209910/14/19 12/28/19 traZODone HCL 100 mg PO HS@209910/14/19 12/28/19 Levothyroxine Sodium [Levoxyl] 25 mcg PO DAILY@59912/18/19 12/28/19 Nystatin 100,000 Unit/ml Susp 5 ml PO QID 12/18/19 12/28/19 [Mycostatin Oral Susp] Vit C/E/Zn/Coppr/Lutein/Zeaxan 1 cap PO DAILY@89912/18/19 12/28/19 [Preservision Areds 2 Softgel] amLODIPine [Norvasc] 5 mg PO DAILY@89912/18/19 12/28/19 hydrALAZINE HCL [Apresoline] 50 mg PO AC-TID 12/18/19 12/28/19 Calcium Carbonate [Tums] 1,000 mg PO DAILY@89912/28/19 12/28/19 Eltrombopag Olamine [Promacta] 50 mg PO DAILY@89912/28/19 12/28/19 Pantoprazole [Protonix] 40 mg PO DAILY@89912/28/19 12/28/19 Tacrolimus [Prograf] 1 mg PO DAILY@89912/28/19 12/28/19 predniSONE [Deltasone] 60 mg PO DAILY@89912/28/19 12/28/19 traMADol HCL 50 mg PO BID 12/28/19 12/28/19 Previous Rx's Medication Instructions Recorded Acetaminophen Tab [Tylenol] 650 mg PO Q6HR PRN tab 12/24/19 clonazePAM [KlonoPIN] 2 mg PO HS PRN #6 tab 12/24/19 INSULIN LISPRO (HumaLOG) [humaLOG] 0 unit SQ ACHS #1 vial 12/31/19 Insulin Glargine,Hum.rec.anlog 25 unit SQ DAILY@2100 #0 12/31/19 [Basaglar Kwikpen U-100] Magnesium Oxide [Mag-Ox] 400 mg PO DAILY@0900 tab 12/31/19 Allergies Allergy/AdvReac Type Severity Reaction Status Date / Time morphine Allergy Itching Verified 02/23/20 08:59 Review of Systems ROS Statement: Those systems with pertinent positive or pertinent negative responses have been documented in the HPI. ROS Other: All systems not noted in ROS Statement are negative. 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 History of Any Multi-Drug Resistant Organisms: None Reported Past Surgical History: Coronary Bypass/CABG, Orthopedic Surgery Additional Past Surgical History / Comment(s): kidney transplant, parathyoid surgery, knee Past Anesthesia/Blood Transfusion Reactions: No Reported Reaction Past Psychological History: Anxiety, Depression Past Alcohol Use History: Rare Past Drug Use History: None Reported - Past Family History Father Family Medical History: Deep Vein Thrombosis (DVT) Son(s) Family Medical History: Cancer Additional Family Medical History / Comment(s): Skin cancer. General Exam - General Exam Comments Initial Comments: GENERAL: Patient is well-developed and well-nourished. Patient is nontoxic and well- hydrated and is in no acute distress. ENT: Neck is soft and supple. No significant lymphadenopathy is noted. Oropharynx is clear. Moist mucous membranes. Neck has full range of motion without eliciting any pain. EYES: The sclera were anicteric and conjunctiva were pink and moist. Extraocular movements were intact and pupils were equal round and reactive to light. Eyelids were unremarkable. PULMONARY: Unlabored respirations. Good breath sounds bilaterally. No audible rales rhonchi or wheezing was noted. CARDIOVASCULAR: Patient is tachycardic ABDOMEN: Soft and nontender with normal bowel sounds. No palpable organomegaly was noted. There is no palpable pulsatile mass. SKIN: Skin is clear with no lesions or rashes and otherwise unremarkable. NEUROLOGIC: Patient is alert and oriented times one. Cranial nerves II through XII are grossly intact. Motor and sensory are also intact. Normal speech, volume and content. Symmetrical smile. MUSCULOSKELETAL: Normal extremities with adequate strength and full range of motion. LYMPHATICS: No significant lymphadenopathy is noted PSYCHIATRIC: Unable to evaluate Course Vital Signs 02/23/20 02/23/20 08:57 09:25 Temperature 102.7 F H Pulse Rate 114 H 109 H Respiratory 16 22 Rate Blood Pressure 163/102 162/95 O2 Sat by Pulse 97 95 Oximetry Medical Decision Making - Medical Decision Making EKG shows atrial flutter with a 31 block at 111 bpm QRS is 80 QT interval 336 QTC is 456 per patient's EKG shows no ST segment elevation or depression. Chest x-ray shows pneumonia. I started the patient on Rocephin. : Test is pending. I spoke with Dr. Borges he agreed to admit the patient admitted the patient wrote admitting orders. - Lab Data Result diagrams: 02/23/20 09:16 02/23/20 09:16 Lab Results 02/23/20 02/23/20 02/23/20 Range/Units 09:00 09:16 09:16 WBC 7.2 (3.8-10.6) k/uL RBC 4.64 (4.30-5.90) m/uL Hgb 13.7 (13.0-17.5) gm/dL Hct 42.1 (39.0-53.0) % MCV 90.6 (80.0-100.0) fL MCH 29.4 (25.0-35.0) pg MCHC 32.5 (31.0-37.0) g/dL RDW 16.4 H (11.5-15.5) % Plt Count 96 L (150-450) k/uL Neutrophils % 82 % Lymphocytes % 6 % Monocytes % 9 % Eosinophils % 1 % Basophils % 1 % Neutrophils # 6.0 (1.3-7.7) k/uL Lymphocytes # 0.4 L (1.0-4.8) k/uL Monocytes # 0.6 (0-1.0) k/uL Eosinophils # 0.1 (0-0.7) k/uL Basophils # 0.1 (0-0.2) k/uL Manual Slide Review Performed Poikilocytosis Slight Anisocytosis Slight PT 11.0 (9.0-12.0) sec INR 1.1 (<1.2) APTT 25.5 (22.0-30.0) sec Sodium (137-145) mmol/L Potassium (3.5-5.1) mmol/L Chloride (98-107) mmol/L Carbon Dioxide (22-30) mmol/L Anion Gap mmol/L BUN (9-20) mg/dL Creatinine (0.66-1.25) mg/dL Est GFR (CKD-EPI)AfAm (>60 ml/min/1.73 sqM) Est GFR (CKD-EPI)NonAf (>60 ml/min/1.73 sqM) Glucose (74-99) mg/dL Plasma Lactic Acid Jc (0.7-2.0) mmol/L Calcium (8.4-10.2) mg/dL Total Bilirubin (0.2-1.3) mg/dL AST (17-59) U/L ALT (4-49) U/L Alkaline Phosphatase (38-126) U/L Total Protein (6.3-8.2) g/dL Albumin (3.5-5.0) g/dL Urine Color Yellow Urine Appearance Clear (Clear) Urine pH 7.0 (5.0-8.0) Ur Specific [place] 1.009 (1.001-1.035) Urine Protein Negative (Negative) Urine Glucose (UA) Negative (Negative) Urine Ketones Negative (Negative) Urine Blood Negative (Negative) Urine Nitrite Negative (Negative) Urine Bilirubin Negative (Negative) Urine Urobilinogen <2.0 (<2.0) mg/dL Ur Leukocyte Esterase Negative (Negative) 02/23/20 02/23/20 Range/Units 09:16 09:16 WBC (3.8-10.6) k/uL RBC (4.30-5.90) m/uL Hgb (13.0-17.5) gm/dL Hct (39.0-53.0) % MCV (80.0-100.0) fL MCH (25.0-35.0) pg MCHC (31.0-37.0) g/dL RDW (11.5-15.5) % Plt Count (150-450) k/uL Neutrophils % % Lymphocytes % % Monocytes % % Eosinophils % % Basophils % % Neutrophils # (1.3-7.7) k/uL Lymphocytes # (1.0-4.8) k/uL Monocytes # (0-1.0) k/uL Eosinophils # (0-0.7) k/uL Basophils # (0-0.2) k/uL Manual Slide Review Poikilocytosis Anisocytosis PT (9.0-12.0) sec INR (<1.2) APTT (22.0-30.0) sec Sodium 132 L (137-145) mmol/L Potassium 3.7 (3.5-5.1) mmol/L Chloride 98 (98-107) mmol/L Carbon Dioxide 26 (22-30) mmol/L Anion Gap 8 mmol/L BUN 16 (9-20) mg/dL Creatinine 0.94 (0.66-1.25) mg/dL Est GFR (CKD-EPI)AfAm >90 (>60 ml/min/1.73 sqM) Est GFR (CKD-EPI)NonAf 78 (>60 ml/min/1.73 sqM) Glucose 104 H (74-99) mg/dL Plasma Lactic Acid Jc 1.6 (0.7-2.0) mmol/L Calcium 7.6 L (8.4-10.2) mg/dL Total Bilirubin 1.8 H (0.2-1.3) mg/dL AST 30 (17-59) U/L ALT 18 (4-49) U/L Alkaline Phosphatase 76 (38-126) U/L Total Protein 5.4 L (6.3-8.2) g/dL Albumin 3.3 L (3.5-5.0) g/dL Urine Color Urine Appearance (Clear) Urine pH (5.0-8.0) Ur Specific [place] (1.001-1.035) Urine Protein (Negative) Urine Glucose (UA) (Negative) Urine Ketones (Negative) Urine Blood (Negative) Urine Nitrite (Negative) Urine Bilirubin (Negative) Urine Urobilinogen (<2.0) mg/dL Ur Leukocyte Esterase (Negative) Disposition Clinical Impression: Pneumonia, COVID-19 ruled out Disposition: ADMITTED IP TO THIS HOSP Referrals: Narinder Rosenberg DO [Primary Care Provider] - 1-2 days Time of Disposition: 10:07
[2020-02-23] MEDS: SODIUM CHLORIDE 0.9% 500 ML 500 ML IV SCH ×2 (09:19→10:14)
[2020-02-23] MEDS: SODIUM CHLORIDE 0.9% 1,000 ML IV SCH ×2 (09:20→16:08)
[2020-02-23 09:40] LABS: Appearance,Urine Clear (Clear); Bilirubin,Urine Negative (Negative); Blood,Urine Negative (Negative); Color,Urine Yellow; Glucose,Urine (UA) Negative (Negative); Ketones,Urine Negative (Negative); Leukocyte Esterase,Urine Negative (Negative); Nitrite,Urine Negative (Negative); Protein,Urine Negative (Negative); Specific Gravity,Urine 1.009 (1.001-1.035); Urobilinogen,Urine <2.0 mg/dL (<2.0)
[2020-02-23 09:48] LABS: ALT 18 U/L (4-49); AST 30 U/L (17-59); African American GFR (CKD) >90 (>60 ml/min/1.73 sqM); Albumin 3.3 g/dL (3.5-5.0); Alkaline Phosphatase 76 U/L (38-126); Anion Gap 8 mmol/L; Anisocytosis Slight; Basophils # (A) 0.1 k/uL (0-0.2); Basophils % (A) 1 %; Blood Urea Nitrogen 16 mg/dL (9-20); Calcium 7.6 mg/dL (8.4-10.2); Carbon Dioxide 26 mmol/L (22-30); Chloride 98 mmol/L (98-107); Eosinophils # (A) 0.1 k/uL (0-0.7); Eosinophils % (A) 1 %; Glucose 104 mg/dL (74-99); HCT 42.1 % (39.0-53.0); HGB 13.7 gm/dL (13.0-17.5); INR 1.1 (<1.2); Lymphocytes # (A) 0.4 k/uL (1.0-4.8); Lymphocytes % (A) 6 %; MCH 29.4 pg (25.0-35.0); MCHC 32.5 g/dL (31.0-37.0); MCV 90.6 fL (80.0-100.0); Monocytes # (A) 0.6 k/uL (0-1.0); Monocytes % (A) 9 %; Neutrophils % (A) 82 %; Non-African American GFR(CKD) 78 (>60 ml/min/1.73 sqM); Partial Thromboplastin Time 25.5 sec (22.0-30.0); Poikilocytosis Slight; Potassium 3.7 mmol/L (3.5-5.1); RBC 4.64 m/uL (4.30-5.90); RDW 16.4 % (11.5-15.5); Sodium 132 mmol/L (137-145); Total Bilirubin 1.8 mg/dL (0.2-1.3); Total Protein 5.4 g/dL (6.3-8.2); WBC 7.2 k/uL (3.8-10.6)
--- NOTE | 2020-02-23 09:51 | XR ---
EXAMINATION TYPE: XR chest 2V DATE OF EXAM: 02/23/2020 HISTORY: Fever. REFERENCE: Previous study dated 10/14/2019. FINDINGS: The heart is enlarged. There is vascular congestion and mild interstitial change. There are patchy, bilateral infiltrates. There is blunting of both CP angles. IMPRESSION: 1. FINDINGS CONSISTENT WITH MILD HEART FAILURE. 2. I CANNOT EXCLUDE SUPERIMPOSED BILATERAL PNEUMONIAS.
[2020-02-23 10:03] LABS: Platelet Count 96 k/uL (150-450)
[2020-02-23] MEDS ORDERED: AZITHROMYCIN 500 MG in SODIUM CHLORIDE 0.9% 250 ML IVPB STA (10:08)
[2020-02-23] MEDS ORDERED: PNEUMONIA PROTOCOL UTILIZED 1 EACH MISC PO PRN (10:08)
[2020-02-23 11:32] LABS: Glucose,Whole Blood 106 mg/dL (75-99)
[2020-02-23] MEDS: INSULIN ASPART (NovoLOG) 100 UNIT/ML VIAL SQ SCH ×3 (13:28→21:20)
[2020-02-23 14:53] LABS: Anisocytosis Slight; Basophils # (A) 0.1 k/uL (0-0.2); Basophils % (A) 1 %; Eosinophils # (A) 0.1 k/uL (0-0.7); Eosinophils % (A) 1 %; HCT 39.6 % (39.0-53.0); HGB 12.7 gm/dL (13.0-17.5); Lymphocytes # (A) 0.7 k/uL (1.0-4.8); Lymphocytes % (A) 9 %; MCH 29.5 pg (25.0-35.0); MCHC 32.1 g/dL (31.0-37.0); MCV 91.7 fL (80.0-100.0); Mean Platelet Volume 10.5; Monocytes # (A) 0.6 k/uL (0-1.0); Monocytes % (A) 8 %; Neutrophils % (A) 79 %; Platelet Count 82 k/uL (150-450); RBC 4.31 m/uL (4.30-5.90); RDW 16.1 % (11.5-15.5); WBC 7.6 k/uL (3.8-10.6)
[2020-02-23 15:07] LABS: D-Dimer 1.04 mg/L FEU (<0.60)
[2020-02-23 15:12] LABS: Albumin 2.8 g/dL (3.5-5.0); Calcium 7.4 mg/dL (8.4-10.2); Potassium 4.1 mmol/L (3.5-5.1); Total Bilirubin 1.4 mg/dL (0.2-1.3); Total Protein 4.9 g/dL (6.3-8.2)
[2020-02-23 15:23] LABS: C Reactive Protein 220.9 mg/L (<10.0)
[2020-02-23 16:37] LABS: Glucose,Whole Blood 160 mg/dL (75-99)
[2020-02-23] MEDS ORDERED: FUROSEMIDE 10 MG/ML 4 ML VIAL IV STA (20:29)
[2020-02-23 20:36] LABS: Glucose,Whole Blood 169 mg/dL (75-99)
--- NOTE | 2020-02-23 20:45 | CONS ---
CONSULTATION PULMONARY/CRITICAL CARE CONSULTATION: DATE OF CONSULTATION: 02/23/2020 This is a 79-year-old gentleman who apparently presented to the emergency room, brought in by EMS sometime this morning shortly after 8 o'clock. He apparently came in because of mental status changes. Apparently, the night prior, he became very confused, and apparently he became progressively more confused throughout the night. He also developed a high temperature of 103 degrees. He was unable to give much history in the emergency room and even on the floor after I saw the patient today, he is very unaware sort of why he is here in the hospital. He seems very confused and not really able to give much history at all. He states he may have felt that he had a fever, it sounds like he was trying to describe being sweaty and maybe having chills at the same time. He is not sure about shortness of breath or cough. He cannot admit either of those at the current time. Again, he is very confused about how he got here and why he is here. He apparently was evaluated in the emergency room, admitted with a diagnosis of rule out COVID-19 infection. His primary care provider is Dr. Narinder Rosenberg. HOME MEDICATIONS: According to the med list include Elavil, Proscar, Flomax, Cymbalta, multivitamins, Lopressor, Lipitor, trazodone, Levoxyl, Mycostatin oral suspension, eye vitamins, amlodipine, Apresoline, Tums, Promacta, Protonix, Prograf, prednisone, tramadol, Tylenol, Klonopin, insulin, and Mag-Ox. ALLERGIES: MORPHINE. MEDICAL HISTORY: Quite extensive and include atrial fibrillation, diabetes mellitus, hyperlipidemia, hypertension, hypothyroidism, chronic kidney disease and kidney failure. The patient also has a history of melanoma, and prostate cancer, being followed by Urology. Apparently also listed here in terms of a medical problem is deafness. SURGICAL HISTORY: Includes bypass grafting, kidney transplant, parathyroid surgery, and knee replacement. SOCIAL HISTORY: Negative for tobacco. Alcohol use is rare. No illicit drug use. FAMILY HISTORY: Positive for father with DVT and a son with skin cancer. REVIEW OF SYSTEMS: Is unreliable. The patient is not able to give any additional history. PHYSICAL EXAMINATION: VITAL SIGNS: Current vital signs are reviewed. Temperature is 99.9, T-max was 102.7. Heart rate about 100, respiratory rate 20, blood pressure 124/80, mean 94, 2 L saturation 97%. Appears in no acute distress. HEENT: Examination is grossly unremarkable. NECK: Supple. Full range of motion. No adenopathy. Neck veins are flat. CARDIOVASCULAR: Examination reveals a regular rate of about 100 beats per minute. S1, S2 normal. No murmur. LUNGS: Reveal a few scattered rhonchi and crackles. Breath sounds equal. ABDOMEN: Soft. Bowel sounds are noted. EXTREMITIES: Intact. Minimal edema. SKIN: Without rash. NEUROLOGIC: Examination is difficult to assess. The patient is very confused. He does move all 4 extremities. LAB DATA: Reviewed. White count 7.2, hemoglobin 13.7, hematocrit 42.7, platelet count is 96,000. PT/INR and PTT normal. Sodium 132, potassium 3.7, chloride 98, CO2 26, anion gap is 8. BUN and creatinine were 16 and 0.94. Calcium 7 6, bilirubin 1.8, albumin 3.3. N terminal proBNP 1830. Troponin 0.030. Urine was negative. COVID test is pending. IMAGING: Chest x-ray shows a pattern of cardiomegaly, bilateral small effusions, and diffuse bilateral infiltrates which could be consistent with fluid overload and/or pneumonia. ASSESSMENT: 1. Mental status changes, which may relate to encephalopathy secondary to infection. Diagnostic possibilities include pneumonia versus COVID-19 pneumonitis. 2. Possible mild fluid overload/congestive heart failure. 3. History of melanoma. 4. History of slow-growing prostate cancer. 5. History of atrial fibrillation. 6. Diabetes mellitus. 7. Hyperlipidemia. 8. Hypertension. 9. Chronic kidney disease/kidney failure, status post kidney transplant. 10.Hypothyroidism. 11.Status post bypass grafting. 12.Multiple other medical problems and comorbidities. PLAN: Currently, the patient is getting Tylenol, Zithromax, Rocephin, insulin, and a basic IV running at 130 mL an hour. We will continue to follow. We will monitor the patient's vital signs carefully and also repeat chest x-ray in the morning. Additional recommendations and suggestions are forthcoming. Also do a D-dimer test on him. We will follow. MMODL / IJN: [id number] /
[2020-02-23] MEDS ORDERED: INSULIN DETEMIR (LEVEMIR) 100 UNIT/ML SYR SQ SCH (21:00)
[2020-02-23] MEDS: hydrALAZINE HCL 25 MG TAB PO SCH (21:19)
[2020-02-23] MEDS: amLODIPine 5 MG TAB PO SCH (21:19)
[2020-02-23] MEDS: METOPROLOL TARTRATE 25 MG TAB PO SCH (21:19)
[2020-02-23] MEDS: ATORVASTATIN 20 MG TAB PO SCH (21:19)
[2020-02-23] MEDS: TACROLIMUS 0.5 MG CAP PO SCH (21:21)
--- NOTE | 2020-02-23 22:51 | P.HPIM ---
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 Patient lives with his and has been more confused recently. Overnight patient became progressively worse. Patient was also febrile and EMS was called. Temperature was 103 F as per EMS. Patient is currently lethargic and sleepy and could not provide any history. Patient and his have been staying at home and following social distance precautions.. Patient does have chronic back pain and supposed to follow-up with orthopedic surgery but could not follow-up due to COVID-19 pandemic. Laboratory data showed WBC 7.2, hemoglobin 13.7, platelets 96 Sodium 132, potassium 3.7, BUN 16 and creatinine 0.94 Calcium 7.6 total bilirubin is 1.8 proBNP 1830 Troponin times one 0.030 EKG showed atrial fibrillation with ventricular rate 111 Chest x-ray showed findings consistent with mild heart failure. Cannot exclude superimposed bilateral pneumonias. Review of Systems Complete review of systems could not be obtained from the patient. 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." Hard of hearing, LOW PLATELETS, History of Any Multi-Drug Resistant Organisms: None Reported Past Surgical History: Orthopedic Surgery Additional Past Surgical History / Comment(s): kidney transplant, parathyroid surgery, knee surgery, pericardiocentesis Past Anesthesia/Blood Transfusion Reactions: No Reported Reaction Past Psychological History: Anxiety, Depression Smoking Status: Never smoker Past Alcohol Use History: Rare Past Drug Use History: None Reported - Past Family History Father Family Medical History: Deep Vein Thrombosis (DVT) Son(s) Family Medical History: Cancer Additional Family Medical History / Comment(s): Skin cancer. Medications and Allergies Home Medications Medication Instructions Recorded Confirmed Type Amitriptyline HCl [Elavil] 100 mg PO HS@2100 02/09/17 02/23/20 History Finasteride [Proscar] 5 mg PO DAILY@89902/09/17 02/23/20 History Tamsulosin HCl [Flomax] 0.4 mg PO DAILY@89902/09/17 02/23/20 History DULoxetine HCL [Cymbalta] 120 mg PO DAILY 04/19/18 02/23/20 History Multivitamins, Thera [Multivitamin 1 tab PO DAILY@89912/31/18 02/23/20 History (formulary)] Metoprolol Tartrate [Lopressor] 25 mg PO BID@09,209901/03/19 02/23/20 History Atorvastatin Calcium [Lipitor] 20 mg PO HS@209910/14/19 02/23/20 History traZODone HCL 100 mg PO HS@209910/14/19 02/23/20 History Levothyroxine Sodium [Levoxyl] 25 mcg PO DAILY@59912/18/19 02/23/20 History Vit C/E/Zn/Coppr/Lutein/Zeaxan 1 cap PO DAILY@89912/18/19 02/23/20 History [Preservision Areds 2 Softgel] amLODIPine [Norvasc] 5 mg PO BID 12/18/19 02/23/20 History Acetaminophen Tab [Tylenol] 650 mg PO Q6HR PRN tab 12/24/19 02/23/20 Rx Calcium Carbonate [Tums] 1,000 mg PO DAILY@89912/28/19 02/23/20 History Eltrombopag Olamine [Promacta] 50 mg PO DAILY@59912/28/19 02/23/20 History Pantoprazole [Protonix] 40 mg PO DAILY@89912/28/19 02/23/20 History traMADol HCL 50 mg PO BID 12/28/19 02/23/20 History INSULIN LISPRO (HumaLOG) [humaLOG] 0 unit SQ ACHS #1 vial 12/31/19 02/23/20 Rx Magnesium Oxide [Mag-Ox] 400 mg PO DAILY@0900 tab 12/31/19 02/23/20 Rx Eltrombopag Olamine [Promacta] 25 mg PO DAILY@59902/23/20 02/23/20 History Insulin Glargine,Hum.rec.anlog 25 unit SQ HS 02/23/20 02/23/20 History [Basaglar Razapen U-100] Tacrolimus [Prograf] 0.5 mg PO BID 02/23/20 02/23/20 History clonazePAM [KlonoPIN] 1 - 2 mg PO HS PRN 02/23/20 02/23/20 History hydrALAZINE HCL [Apresoline] 25 mg PO TID 02/23/20 02/23/20 History Allergies Allergy/AdvReac Type Severity Reaction Status Date / Time morphine Allergy Itching Verified 02/23/20 11:29 Physical Exam Vitals: Vital Signs Temp Pulse Pulse Resp BP BP Pulse Ox 02/23/20 15:00 97.7 F 94 20 129/71 95 02/23/20 11:43 99.9 F H 109 H 20 124/80 97 02/23/20 10:45 100.6 F H 139/83 02/23/20 10:00 106 H 20 162/95 94 L 02/23/20 09:25 112 H 22 162/95 93 L 02/23/20 08:57 102.7 F H 114 H 16 163/102 97 Intake and Output 02/23/20 02/23/20 02/23/20 06:59 14:59 22:59 Other: Weight 90.718 kg PHYSICAL EXAMINATION: Patient is lying in the bed comfortably, no acute distress,Lethargic and drowsy. Saturating well on oxygen via nasal cannula... HEENT: Normocephalic. Neck is supple. Pupils reactive. Nostrils clear. Oral cavity is moist. Ears reveal no drainage. Neck reveals no JVD, carotid bruits, or thyromegaly. CHEST EXAMINATION: Trachea is central. Symmetrical expansion. Bibasilar diminished air entry.No wheezing.. CARDIAC: Normal S1, S2 with no gallops. No murmurs ABDOMEN: Soft. Bowel sounds normal. No organomegaly. No abdominal bruits. Extremities: reveal no edema. No clubbing or cyanosis Neurologically Patient is currently drowsy and lethargic. Opens his eyes but unable to follow commands. No gross focal deficits noted Skin: No rash or skin lesions. Psychiatric:Could not be assessed at this time. Musculoskeletal: No joint swelling or deformity. Normal range of motion. Results CBC & Chem 7: 02/25/20 07:00 02/25/20 07:00 Labs: Abnormal Lab Results - Last 24 Hours (Table) 02/23/20 02/23/20 02/23/20 Range/Units 09:16 09:16 11:29 Hgb (13.0-17.5) gm/dL RDW 16.4 H (11.5-15.5) % Plt Count 96 L (150-450) k/uL Lymphocytes # 0.4 L (1.0-4.8) k/uL D-Dimer (<0.60) mg/L FEU Sodium 132 L (137-145) mmol/L Glucose 104 H (74-99) mg/dL POC Glucose (mg/dL) 106 H (75-99) mg/dL Calcium 7.6 L (8.4-10.2) mg/dL Total Bilirubin 1.8 H (0.2-1.3) mg/dL Lactate Dehydrogenase (313-618) U/L C-Reactive Protein (<10.0) mg/L Total Protein 5.4 L (6.3-8.2) g/dL Albumin 3.3 L (3.5-5.0) g/dL 02/23/20 02/23/20 02/23/20 Range/Units 14:08 14:08 14:08 Hgb 12.7 L (13.0-17.5) gm/dL RDW 16.1 H (11.5-15.5) % Plt Count 82 L (150-450) k/uL Lymphocytes # 0.7 L (1.0-4.8) k/uL D-Dimer 1.04 H (<0.60) mg/L FEU Sodium 131 L (137-145) mmol/L Glucose 115 H (74-99) mg/dL POC Glucose (mg/dL) (75-99) mg/dL Calcium 7.4 L (8.4-10.2) mg/dL Total Bilirubin 1.4 H (0.2-1.3) mg/dL Lactate Dehydrogenase 1030 H (313-618) U/L C-Reactive Protein 220.9 H (<10.0) mg/L Total Protein 4.9 L (6.3-8.2) g/dL Albumin 2.8 L (3.5-5.0) g/dL Thrombosis Risk Factor Assmnt - Choose All That Apply Any of the Below Risk Factors Present?: Yes Each Factor Represents 1 point: Obesity (BMI >25), Serious lung disease incl. pneumonia (< 1month), Swollen legs (current) Each Risk Factor Represents 3 Points: Age 75 years or older Thrombosis Risk Factor Assessment Total Risk Factor Score: 6 Thrombosis Risk Factor Assessment Level: High Risk Assessment and Plan Assessment: Bilateral pneumonias Severe sepsis secondary to above Suspected COVID-19 virus infection Acute metabolic encephalopathy secondary to infection Acute CHF with mild vascular congestion on chest x-ray. BNP 1830. EF unknown. 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 Will start on IV Lasix 20 mg twice daily and repeat chest x-ray tomorrow. Continue with contact and droplet precautions and COVID-19 isolation. ESR, CRP, D Dimer , LDH and ferritin levels ordered. Pulmonary and cardiology was consulted. Continue to follow closely and prognosis poor at this time. Will discuss with the family. Time with Patient: Greater than 30
[2020-02-24] MEDS: MELATONIN 3 MG TABLET PO PRN ×2 (00:10→21:44)
[2020-02-24] MEDS: ACETAMINOPHEN TAB 325 MG TAB PO PRN ×3 (03:47→21:44)
[2020-02-24] MEDS: LEVOTHYROXINE 25 MCG TAB PO SCH (05:54)
[2020-02-24] MEDS: ELTROMBOPAG OLAMINE 25 MG PO SCH (05:56)
[2020-02-24] MEDS: ELTROMBOPAG OLAMINE 50 MG PO SCH (05:56)
--- NOTE | 2020-02-24 07:45 | XR ---
EXAMINATION TYPE: XR chest 1V portable DATE OF EXAM: 02/24/2020 CLINICAL HISTORY: Cough and pneumonia progress study. TECHNIQUE: Single AP portable upright view of the chest is obtained. COMPARISON: Chest x-ray from one day earlier and older studies. FINDINGS: Due to increased right-sided rotation from prior study there is better visualization or sl ight worsening of left mid lung focal opacity. Additional peripheral left basilar opacity is better s een. Cardiac silhouette size is stable and upper limits of normal. Right lung remains clear. No pleur al effusion or pneumothorax noted bilaterally. Atherosclerotic thoracic aorta redemonstrated. Osseous structures are intact. IMPRESSION: Suspect new or worsening lateral left mid lung focal infiltrate and peripheral left basil ar acute infiltrate and/or atelectasis. Progress study advised. Correlate to exclude possible Covid-1 9 infection due to peripheral location. A Yellow level critical message alert has been initiated for Steffen Glaser via the [employer] Critical Results System on 02/24/2020 7:42 AM. This message alert has been sent to Steffen Glaser via t preferences provided by the clinician for the receipt of Radiology Critical Findings. Message ID [id number].
[2020-02-24] MEDS: INSULIN ASPART (NovoLOG) 100 UNIT/ML VIAL SQ SCH ×4 (07:50→21:13)
[2020-02-24] MEDS: PANTOPRAZOLE 40 MG TABLET PO SCH (08:02)
[2020-02-24] MEDS: VIT A,C & E-LUTEIN-MINERALS 1 EACH TAB PO SCH (08:02)
[2020-02-24] MEDS: DULoxetine HCL 60 MG CAPSULE.DR PO SCH (08:02)
[2020-02-24] MEDS: TAMSULOSIN 0.4 MG CAP.ER.24H PO SCH (08:02)
[2020-02-24 08:03] LABS: Glucose,Whole Blood 49 mg/dL (75-99)
[2020-02-24] MEDS: AZITHROMYCIN 500 MG TAB PO SCH (08:03)
[2020-02-24] MEDS: hydrALAZINE HCL 25 MG TAB PO SCH ×3 (08:03→21:12)
[2020-02-24] MEDS: amLODIPine 5 MG TAB PO SCH ×2 (08:03→21:13)
[2020-02-24] MEDS: METOPROLOL TARTRATE 25 MG TAB PO SCH ×2 (08:03→21:12)
[2020-02-24] MEDS: FINASTERIDE 5 MG TAB PO SCH (08:03)
[2020-02-24] MEDS: TACROLIMUS 0.5 MG CAP PO SCH ×2 (08:03→21:12)
[2020-02-24] MEDS: FUROSEMIDE 10 MG/ML 2 ML VIAL IV SCH ×3 (08:03→21:13)
[2020-02-24 08:26] LABS: Glucose,Whole Blood 102 mg/dL (75-99)
[2020-02-24 08:26] LABS: Glucose,Whole Blood 65 mg/dL (75-99)
--- NOTE | 2020-02-24 09:34 | P.PN ---
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 Patient lives with his and has been more confused recently. Overnight patient became progressively worse. Patient was also febrile and EMS was called. Temperature was 103 F as per EMS. Patient is currently lethargic and sleepy and could not provide any history. Patient and his have been staying at home and following social distance precautions.. Patient does have chronic back pain and supposed to follow-up with orthopedic surgery but could not follow-up due to COVID-19 pandemic. Laboratory data showed WBC 7.2, hemoglobin 13.7, platelets 96 Sodium 132, potassium 3.7, BUN 16 and creatinine 0.94 Calcium 7.6 total bilirubin is 1.8 proBNP 1830 Troponin times one 0.030 EKG showed atrial fibrillation with ventricular rate 111 Chest x-ray showed findings consistent with mild heart failure. Cannot exclude superimposed bilateral pneumonias. Subjective 02/24/2020 This is a pleasant 79 years old male with multiple medical problems who was admitted yesterday for bilateral pneumonia, rule out Covid. Also he has A. fib with RVR with elements of CHF and millstone cleaner been consulted. Patient is awake and alert, lying in bed not in respiratory distress, however it looks lethargic. He is fully awake and oriented. No chest pain. Mild cough. No significant back pain this morning I saw her and fever of 100.7 this morning, tachycardic at 106-111, blood pressure is normal at 131/73 and he is saturating 94% on 3 L oxygen He was hypoglycemic this morning at 49, currently corrected at 102, we will lower his home dose of Levemir 25 units at bedtime to 15 units at bedtime No labs this morning Patient is currently on Zithromax and ceftriaxone, also he is on IV Lasix 20 mg twice daily. Pulmonary and cardiology teams on the case Objective - Vital Signs Vital signs: Vital Signs Temp 99.4 F 02/24/20 07:00 Pulse 106 H 02/24/20 08:03 Resp 22 02/24/20 08:03 BP 131/73 02/24/20 07:00 Pulse Ox 94 L 02/24/20 07:00 Intake & Output 02/23/20 02/24/20 02/24/20 18:59 06:59 18:59 Output Total 2049 Balance -2049 Weight 90.718 kg Output: Urine 2049 Other: Voiding Method Incontinent Incontinent # Voids 1 1 - Exam GENERAL: The patient is alert and oriented x3, not in any acute distress. Well developed, well nourished. HEENT: Pupils are round and equally reacting to light. EOMI. No scleral icterus. No conjunctival pallor. Normocephalic, atraumatic. No pharyngeal erythema. No thyromegaly. CARDIOVASCULAR: S1 and S2 present. No murmurs, rubs, or gallops. -PULMONARY: Chest is clear to auscultation, few crepitations bilaterally with decreased breath sounds in the lower zones ABDOMEN: Soft, nontender, nondistended, normoactive bowel sounds. No palpable organomegaly. MUSCULOSKELETAL: No joint swelling or deformity. EXTREMITIES: No cyanosis, clubbing, or pedal edema. NEUROLOGICAL: Gross neurological examination did not reveal any focal deficits. SKIN: No rashes. no petechiae. - Labs CBC & Chem 7: 02/23/20 14:08 02/23/20 14:08 Labs: Abnormal Lab Results - Last 24 Hours (Table) 02/23/20 02/23/20 02/23/20 Range/Units 09:16 09:16 11:29 Hgb (13.0-17.5) gm/dL RDW 16.4 H (11.5-15.5) % Plt Count 96 L (150-450) k/uL Lymphocytes # 0.4 L (1.0-4.8) k/uL D-Dimer (<0.60) mg/L FEU Sodium 132 L (137-145) mmol/L Glucose 104 H (74-99) mg/dL POC Glucose (mg/dL) 106 H (75-99) mg/dL Calcium 7.6 L (8.4-10.2) mg/dL Total Bilirubin 1.8 H (0.2-1.3) mg/dL Lactate Dehydrogenase (313-618) U/L C-Reactive Protein (<10.0) mg/L Total Protein 5.4 L (6.3-8.2) g/dL Albumin 3.3 L (3.5-5.0) g/dL 02/23/20 02/23/20 02/23/20 Range/Units 14:08 14:08 14:08 Hgb 12.7 L (13.0-17.5) gm/dL RDW 16.1 H (11.5-15.5) % Plt Count 82 L (150-450) k/uL Lymphocytes # 0.7 L (1.0-4.8) k/uL D-Dimer 1.04 H (<0.60) mg/L FEU Sodium 131 L (137-145) mmol/L Glucose 115 H (74-99) mg/dL POC Glucose (mg/dL) (75-99) mg/dL Calcium 7.4 L (8.4-10.2) mg/dL Total Bilirubin 1.4 H (0.2-1.3) mg/dL Lactate Dehydrogenase 1030 H (313-618) U/L C-Reactive Protein 220.9 H (<10.0) mg/L Total Protein 4.9 L (6.3-8.2) g/dL Albumin 2.8 L (3.5-5.0) g/dL 02/23/20 02/23/20 02/24/20 Range/Units 16:35 20:31 07:35 Hgb (13.0-17.5) gm/dL RDW (11.5-15.5) % Plt Count (150-450) k/uL Lymphocytes # (1.0-4.8) k/uL D-Dimer (<0.60) mg/L FEU Sodium (137-145) mmol/L Glucose (74-99) mg/dL POC Glucose (mg/dL) 160 H 169 H 49 L (75-99) mg/dL Calcium (8.4-10.2) mg/dL Total Bilirubin (0.2-1.3) mg/dL Lactate Dehydrogenase (313-618) U/L C-Reactive Protein (<10.0) mg/L Total Protein (6.3-8.2) g/dL Albumin (3.5-5.0) g/dL 02/24/20 02/24/20 Range/Units 08:05 08:23 Hgb (13.0-17.5) gm/dL RDW (11.5-15.5) % Plt Count (150-450) k/uL Lymphocytes # (1.0-4.8) k/uL D-Dimer (<0.60) mg/L FEU Sodium (137-145) mmol/L Glucose (74-99) mg/dL POC Glucose (mg/dL) 65 L 102 H (75-99) mg/dL Calcium (8.4-10.2) mg/dL Total Bilirubin (0.2-1.3) mg/dL Lactate Dehydrogenase (313-618) U/L C-Reactive Protein (<10.0) mg/L Total Protein (6.3-8.2) g/dL Albumin (3.5-5.0) g/dL Assessment and Plan Assessment: Bilateral pneumonias Severe sepsis secondary to above Suspected COVID-19 virus infection Acute metabolic encephalopathy secondary to infection, improved Acute CHF with mild vascular congestion on chest x-ray. BNP 1830. EF unknown. 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 fib and CHF. Patient is currently on antibiotics in the form of Zithromax and ceftriaxone, also he is on Lasix IV 20 mg twice daily. He is on Levemir and dose was lowered from 25 down to 15 units while monitored sugar. Follow-up recommendation by cardiology and pulmonary team's. Labs and medication were reviewed.. Continue same treatment. Continue with symptomatic treatment. Resume home medication. Monitor lytes and vitals. DVT and GI prophylaxis. Further recommendations of the clinical course of the patient DVT prophylaxis: Subcutaneous Lovenox GI Prophylaxis: Ppi prognosis is guarded
[2020-02-24] MEDS: ENOXAPARIN 40 MG/0.4 ML SYRINGE SQ SCH (12:13)
[2020-02-24 12:21] LABS: Glucose,Whole Blood 142 mg/dL (75-99)
--- NOTE | 2020-02-24 13:10 | P.PN ---
Subjective Progress Note Date: 02/24/20 Principal diagnosis: Altered mentation, fever On 02/24/2020 patient seen in follow-up on general medical surgical floor. He is resting comfortably in bed, he is awake, he is answering some questions, but she feels that she still somewhat confused, but he was able to provide some history, seems to be able to carry on a conversation appropriately. Fever pattern seems to have improved since admission, his T-max in the last 24 hours was 100.7F this morning at 5:00, 3 L of oxygen and his pulse ox is 94-96%, slightly tachycardic with a rate of 106 BPM, no complaints of chest pain, there is no hemoptysis. He remains on cognition of azithromycin and Rocephin. His follow-up chest x-ray today shows new worsening lateral left midlung focal infiltrate and peripheral left basilar acute infiltrate and/or atelectasis. Correlate to exclude possible cold in 19 infection due to peripheral distribution. COVID 19 PCR test is still pending. Denies any fever or malaise, no nausea vomiting or diarrhea. No complex of sore throat. He does have a mild cough. Procalcitonin level is elevated at 0.21 Objective - Vital Signs Vital signs: Vital Signs Temp 99.4 F 02/24/20 07:00 Pulse 106 H 02/24/20 08:03 Resp 22 02/24/20 08:03 BP 131/73 02/24/20 07:00 Pulse Ox 94 L 02/24/20 07:00 Intake & Output 02/23/20 02/24/20 02/24/20 18:59 06:59 18:59 Intake Total 240 Output Total 2049 800 Balance -2049 - Weight 90.718 kg Intake: Oral 240 Output: Urine 2049 800 Other: Voiding Method Incontinent Incontinent # Voids 1 1 - Exam GENERAL EXAM: Alert, pleasant, 79-year-old overweight white male, currently on 3 L of oxygen a pulse ox of 94%, slightly pale, comfortable in no apparent distress. HEAD: Normocephalic/atraumatic. EYES: Normal reaction of pupils, equal size. Conjunctiva pink, sclera white. NOSE: Clear with pink turbinates. THROAT: No erythema or exudates. NECK: No masses, no JVD, no thyroid enlargement, no adenopathy. CHEST: No chest wall deformity. Symmetrical expansion. LUNGS: Equal air entry with no crackles, wheeze, rhonchi or dullness. CVS: Regular rate and rhythm, normal S1 and S2, no gallops, no murmurs, no rubs ABDOMEN: Soft, nontender. No hepatosplenomegaly, normal bowel sounds, no guarding or rigidity. EXTREMITIES: No clubbing, no edema, no cyanosis, 2+ pulses and upper and lower extremities. MUSCULOSKELETAL: Muscle strength and tone normal. SPINE: No scoliosis or deformity SKIN: No rashes CENTRAL NERVOUS SYSTEM: Alert and oriented -3. No focal deficits, tone is n ormal in all 4 extremities. PSYCHIATRIC: Alert and oriented -3. Appropriate affect. Intact judgment and insight. - Labs CBC & Chem 7: 02/23/20 14:08 02/23/20 14:08 Labs: Abnormal Lab Results - Last 24 Hours (Table) 02/23/20 02/23/20 02/23/20 Range/Units 14:08 14:08 14:08 Hgb 12.7 L (13.0-17.5) gm/dL RDW 16.1 H (11.5-15.5) % Plt Count 82 L (150-450) k/uL Lymphocytes # 0.7 L (1.0-4.8) k/uL D-Dimer 1.04 H (<0.60) mg/L FEU Sodium (137-145) mmol/L Glucose (74-99) mg/dL POC Glucose (mg/dL) (75-99) mg/dL Calcium (8.4-10.2) mg/dL Total Bilirubin (0.2-1.3) mg/dL Lactate Dehydrogenase (313-618) U/L C-Reactive Protein (<10.0) mg/L Total Protein (6.3-8.2) g/dL Albumin (3.5-5.0) g/dL Procalcitonin 0.21 H (0.02-0.09) ng/mL 02/23/20 02/23/20 02/23/20 Range/Units 14:08 16:35 20:31 Hgb (13.0-17.5) gm/dL RDW (11.5-15.5) % Plt Count (150-450) k/uL Lymphocytes # (1.0-4.8) k/uL D-Dimer (<0.60) mg/L FEU Sodium 131 L (137-145) mmol/L Glucose 115 H (74-99) mg/dL POC Glucose (mg/dL) 160 H 169 H (75-99) mg/dL Calcium 7.4 L (8.4-10.2) mg/dL Total Bilirubin 1.4 H (0.2-1.3) mg/dL Lactate Dehydrogenase 1030 H (313-618) U/L C-Reactive Protein 220.9 H (<10.0) mg/L Total Protein 4.9 L (6.3-8.2) g/dL Albumin 2.8 L (3.5-5.0) g/dL Procalcitonin (0.02-0.09) ng/mL 02/24/20 02/24/20 02/24/20 Range/Units 07:35 08:05 08:23 Hgb (13.0-17.5) gm/dL RDW (11.5-15.5) % Plt Count (150-450) k/uL Lymphocytes # (1.0-4.8) k/uL D-Dimer (<0.60) mg/L FEU Sodium (137-145) mmol/L Glucose (74-99) mg/dL POC Glucose (mg/dL) 49 L 65 L 102 H (75-99) mg/dL Calcium (8.4-10.2) mg/dL Total Bilirubin (0.2-1.3) mg/dL Lactate Dehydrogenase (313-618) U/L C-Reactive Protein (<10.0) mg/L Total Protein (6.3-8.2) g/dL Albumin (3.5-5.0) g/dL Procalcitonin (0.02-0.09) ng/mL 02/24/20 Range/Units 12:02 Hgb (13.0-17.5) gm/dL RDW (11.5-15.5) % Plt Count (150-450) k/uL Lymphocytes # (1.0-4.8) k/uL D-Dimer (<0.60) mg/L FEU Sodium (137-145) mmol/L Glucose (74-99) mg/dL POC Glucose (mg/dL) 142 H (75-99) mg/dL Calcium (8.4-10.2) mg/dL Total Bilirubin (0.2-1.3) mg/dL Lactate Dehydrogenase (313-618) U/L C-Reactive Protein (<10.0) mg/L Total Protein (6.3-8.2) g/dL Albumin (3.5-5.0) g/dL Procalcitonin (0.02-0.09) ng/mL Microbiology - Last 24 Hours (Table) 02/23/20 09:16 Blood Culture - Preliminary Blood No Growth after 24 hours Assessment and Plan Plan: Assessment: #1. Sepsis, likely related to underlying bilateral pneumonia, patient presented with facial congestion and mild interstitial changes, however superimposed bilateral pneumonia could not be entirely excluded, in the immunosuppressed host with history of nephrectomy on immunosuppressive medications, including Prograf. Pro-calcitonin level came back elevated at 0.21 #2. Fever, altered mental status present on admission related to the above #3. Rule out possibility of COVID 19 related pneumonia, COVID 19 PCR pending #4. Acute metabolic encephalopathy related to infection, improved #5. Possible mild fluid overload, acute exacerbation of congestive heart failure, with unknown systolic function #6. 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 History of slow-growing prostate cancer, under surveillance by Dr. Craig #9. Diabetes multistep 2 #10. Hypertension #11. Hyperlipidemia #12. Chronic kidney disease, status post kidney transplant currently on Prograf #13. Hypothyroidism #14. Coronary artery disease status post bypass grafting #15. Anxiety/depression Plan: Continue current medical treatment, his chest x-ray has been reviewed showing new or worsening left mid lung focal infiltrate and left basilar acute infiltrate, underlying bacterial pneumonia is strongly suspected especially in view of elevated pro-calcitonin of 0.21, Covid 19 PCR is still pending at this time, fever pattern has improved, mentation has improved, vital signs are stable. Send sputum culture, maintain droplet precautions, continue same antibi otics. Continue following the inflammatory markers, GI and DVT prophylaxis. We'll continue to closely follow I performed a history & physical examination of the patient and discussed their management with my nurse practitioner, Marge Adams. I reviewed the nurse practitioner's note and agree with the documented findings and plan of care. Lung sounds are positive for diminished breath sounds. The findings and the impression was discussed with the patient. I attest to the documentation by the nurse practitioner. Time with Patient: Less than 30
[2020-02-24 13:11] LABS: Ferritin 440.5 ng/mL (22.0-322.0)
[2020-02-24 17:16] LABS: Glucose,Whole Blood 272 mg/dL (75-99)
[2020-02-24] MEDS: SODIUM CHLORIDE 0.9% 1,000 ML IV SCH (19:09)
[2020-02-24 20:34] LABS: Glucose,Whole Blood 234 mg/dL (75-99)
[2020-02-24] MEDS: ATORVASTATIN 20 MG TAB PO SCH (21:13)
[2020-02-24] MEDS: INSULIN DETEMIR (LEVEMIR) 100 UNIT/ML SYR SQ SCH (21:14)
[2020-02-25] MEDS: ELTROMBOPAG OLAMINE 25 MG PO SCH (05:07)
[2020-02-25] MEDS: ELTROMBOPAG OLAMINE 50 MG PO SCH (05:07)
[2020-02-25] MEDS: LEVOTHYROXINE 25 MCG TAB PO SCH (05:22)
[2020-02-25] MEDS: FUROSEMIDE 10 MG/ML 2 ML VIAL IV SCH ×2 (07:06→21:25)
[2020-02-25] MEDS: ENOXAPARIN 40 MG/0.4 ML SYRINGE SQ SCH (07:06)
[2020-02-25] MEDS: FINASTERIDE 5 MG TAB PO SCH (07:07)
[2020-02-25] MEDS: DULoxetine HCL 60 MG CAPSULE.DR PO SCH (07:07)
[2020-02-25] MEDS: amLODIPine 5 MG TAB PO SCH ×2 (07:07→21:25)
[2020-02-25] MEDS: PANTOPRAZOLE 40 MG TABLET PO SCH (07:07)
[2020-02-25] MEDS: METOPROLOL TARTRATE 25 MG TAB PO SCH (07:07)
[2020-02-25] MEDS: ACETAMINOPHEN TAB 325 MG TAB PO PRN ×2 (07:07→21:24)
[2020-02-25] MEDS: hydrALAZINE HCL 25 MG TAB PO SCH (07:07)
[2020-02-25] MEDS: TAMSULOSIN 0.4 MG CAP.ER.24H PO SCH (07:07)
[2020-02-25] MEDS: VIT A,C & E-LUTEIN-MINERALS 1 EACH TAB PO SCH (07:08)
[2020-02-25] MEDS: TACROLIMUS 0.5 MG CAP PO SCH ×2 (07:08→21:25)
[2020-02-25] MEDS: AZITHROMYCIN 500 MG TAB PO SCH (07:08)
[2020-02-25 07:15] LABS: Glucose,Whole Blood 141 mg/dL (75-99)
[2020-02-25] MEDS: INSULIN ASPART (NovoLOG) 100 UNIT/ML VIAL SQ SCH ×4 (07:27→21:24)
[2020-02-25 07:36] LABS: Anisocytosis Slight; Basophils % (A) 1 %; Eosinophils # (A) 0.1 k/uL (0-0.7); Eosinophils % (A) 2 %; HCT 40.2 % (39.0-53.0); HGB 12.6 gm/dL (13.0-17.5); Lymphocytes # (A) 0.5 k/uL (1.0-4.8); Lymphocytes % (A) 11 %; MCH 28.6 pg (25.0-35.0); MCHC 31.3 g/dL (31.0-37.0); MCV 91.4 fL (80.0-100.0); Mean Platelet Volume 9.5; Monocytes # (A) 0.4 k/uL (0-1.0); Monocytes % (A) 8 %; Neutrophils # (A) 3.6 k/uL (1.3-7.7); Neutrophils % (A) 75 %; Platelet Count 120 k/uL (150-450); RBC 4.41 m/uL (4.30-5.90); RDW 16.2 % (11.5-15.5); WBC 4.9 k/uL (3.8-10.6)
--- NOTE | 2020-02-25 07:46 | XR ---
EXAMINATION TYPE: XR chest 1V DATE OF EXAM: 02/25/2020 HISTORY: Shortness of breath. COMPARISON: February 24, 2020 TECHNIQUE: Single view of the chest is submitted. FINDINGS: Demonstrated are scattered senescent parenchymal change. Left perihilar infiltrate persists although is improved in the interval. The heart is stable. Hilar and mediastinal structures are within normal limits. Degenerative changes are seen of the dorsal spine. IMPRESSION: 1. Left perihilar infiltrate persists although is improved in the interval.
[2020-02-25 07:51] LABS: Albumin 2.9 g/dL (3.5-5.0); Calcium 7.3 mg/dL (8.4-10.2); Total Bilirubin 0.9 mg/dL (0.2-1.3); Total Protein 5.1 g/dL (6.3-8.2)
[2020-02-25 08:18] LABS: D-Dimer 1.3 mg/L FEU (<0.60)
[2020-02-25 08:38] LABS: C Reactive Protein 318.5 mg/L (<10.0)
[2020-02-25] MEDS ORDERED: METOPROLOL TARTRATE 25 MG TAB PO STA (09:45)
[2020-02-25 11:50] LABS: Glucose,Whole Blood 137 mg/dL (75-99)
--- NOTE | 2020-02-25 13:01 | P.PN ---
Subjective Progress Note Date: 02/25/20 Principal diagnosis: Altered mentation, fever On 02/24/2020 patient seen in follow-up on general medical surgical floor. He is resting comfortably in bed, he is awake, he is answering some questions, but she feels that she still somewhat confused, but he was able to provide some history, seems to be able to carry on a conversation appropriately. Fever pattern seems to have improved since admission, his T-max in the last 24 hours was 100.7F this morning at 5:00, 3 L of oxygen and his pulse ox is 94-96%, slightly tachycardic with a rate of 106 BPM, no complaints of chest pain, there is no hemoptysis. He remains on cognition of azithromycin and Rocephin. His follow-up chest x-ray today shows new worsening lateral left midlung focal infiltrate and peripheral left basilar acute infiltrate and/or atelectasis. Correlate to exclude possible cold in 19 infection due to peripheral distribution. COVID 19 PCR test is still pending. Denies any fever or malaise, no nausea vomiting or diarrhea. No complex of sore throat. He does have a mild cough. Procalcitonin level is elevated at 0.21 On 02/25/2020 patient is seen in follow-up on the general medical surgical floo r. He is feeling better today, remains on azithromycin and Rocephin, his Covid 19 PCR is still pending. His follow-up chest x-ray today shows left perihilar infiltrate that seems to be improving. Patient is sitting up in the recliner, in no acute distress, at times seems to be a bit confused, denies any chest discomfort, breathing is comfortable, patient is on 3 L of oxygen with pulse ox of 95%, he still febrile, with a T-max of 102.3F. Today's labs have been reviewed, showing white blood cell count within normal limits of 4.9, hemoglobin is 12.6, d-dimer is 1.3, sodium is 134, Evelyn electrolytes and renal profile were within normal limits, LDH is relatively stable at 1015, CRP is on a rise at 318. Procalcitonin level 0.21, suggesting possibility of underlying bacterial infection likely related to underlying pneumonia. Objective - Vital Signs Vital signs: Vital Signs Temp 99.3 F 02/25/20 10:37 Pulse 103 H 02/25/20 07:09 Resp 18 02/25/20 07:09 BP 142/87 02/25/20 07:00 Pulse Ox 95 02/25/20 07:00 Intake & Output 02/24/20 02/25/20 02/25/20 18:59 06:59 18:59 Intake Total 430 Output Total 800 750 750 Balance -370 -750 -750 Intake: Intake, IV Titration 190 Amount Sodium Chloride 0.9% 1, 140 000 ml @ 20 mls/hr IV . Q24H [place] Rx#:[id number] cefTRIAXone 1 gm In 50 Sodium Chloride 0.9% 50 ml @ 100 mls/hr IVPB Q24HR [place] Rx#:[id number] Oral 240 Output: Urine 800 750 750 Other: Voiding Method Incontinent Incontinent Incontinent # Bowel Movements 1 - Exam GENERAL EXAM: Alert, pleasant, 79-year-old overweight white male, currently on 3 L of oxygen a pulse ox of 94%, slightly pale, comfortable in no apparent distress. HEAD: Normocephalic/atraumatic. EYES: Normal reaction of pupils, equal size. Conjunctiva pink, sclera white. NOSE: Clear with pink turbinates. THROAT: No erythema or exudates. NECK: No masses, no JVD, no thyroid enlargement, no adenopathy. CHEST: No chest wall deformity. Symmetrical expansion. LUNGS: Equal air entry with no crackles, wheeze, rhonchi or dullness. CVS: Regular rate and rhythm, normal S1 and S2, no gallops, no murmurs, no rubs ABDOMEN: Soft, nontender. No hepatosplenomegaly, normal bowel sounds, no guarding or rigidity. EXTREMITIES: No clubbing, no edema, no cyanosis, 2+ pulses and upper and lower extremities. MUSCULOSKELETAL: Muscle strength and tone normal. SPINE: No scoliosis or deformity SKIN: No rashes CENTRAL NERVOUS SYSTEM: Alert and oriented -3. No focal deficits, tone is normal in all 4 extremities. PSYCHIATRIC: Alert and oriented -3. Appropriate affect. Intact judgment and insight. - Labs CBC & Chem 7: 02/25/20 07:00 02/25/20 07:00 Labs: Abnormal Lab Results - Last 24 Hours (Table) 02/23/20 02/24/20 02/24/20 Range/Units 14:08 17:14 20:24 Hgb (13.0-17.5) gm/dL RDW (11.5-15.5) % Plt Count (150-450) k/uL Lymphocytes # (1.0-4.8) k/uL Fibrinogen (200-500) mg/dL D-Dimer (<0.60) mg/L FEU Sodium (137-145) mmol/L Glucose (74-99) mg/dL POC Glucose (mg/dL) 272 H 234 H (75-99) mg/dL Calcium (8.4-10.2) mg/dL Ferritin 440.5 H (22.0-322.0) ng/mL Lactate Dehydrogenase (313-618) U/L C-Reactive Protein (<10.0) mg/L Total Protein (6.3-8.2) g/dL Albumin (3.5-5.0) g/dL 02/25/20 02/25/20 02/25/20 Range/Units 07:00 07:00 07:00 Hgb 12.6 L (13.0-17.5) gm/dL RDW 16.2 H (11.5-15.5) % Plt Count 120 L (150-450) k/uL Lymphocytes # 0.5 L (1.0-4.8) k/uL Fibrinogen 589 H (200-500) mg/dL D-Dimer 1.30 H (<0.60) mg/L FEU Sodium 134 L (137-145) mmol/L Glucose 131 H (74-99) mg/dL POC Glucose (mg/dL) (75-99) mg/dL Calcium 7.3 L (8.4-10.2) mg/dL Ferritin (22.0-322.0) ng/mL Lactate Dehydrogenase 1015 H (313-618) U/L C-Reactive Protein 318.5 H (<10.0) mg/L Total Protein 5.1 L (6.3-8.2) g/dL Albumin 2.9 L (3.5-5.0) g/dL 02/25/20 02/25/20 Range/Units 07:13 11:48 Hgb (13.0-17.5) gm/dL RDW (11.5-15.5) % Plt Count (150-450) k/uL Lymphocytes # (1.0-4.8) k/uL Fibrinogen (200-500) mg/dL D-Dimer (<0.60) mg/L FEU Sodium (137-145) mmol/L Glucose (74-99) mg/dL POC Glucose (mg/dL) 141 H 137 H (75-99) mg/dL Calcium (8.4-10.2) mg/dL Ferritin (22.0-322.0) ng/mL Lactate Dehydrogenase (313-618) U/L C-Reactive Protein (<10.0) mg/L Total Protein (6.3-8.2) g/dL Albumin (3.5-5.0) g/dL Microbiology - Last 24 Hours (Table) 02/23/20 09:16 Blood Culture - Preliminary Blood No Growth after 48 hours Assessment and Plan Plan: Assessment: #1. Sepsis, likely related to underlying bilateral pneumonia, patient presented with facial congestion and mild interstitial changes, however superimposed bilateral pneumonia could not be entirely excluded, in the immunosuppressed host with history of nephrectomy on immunosuppressive medications, including Prograf. Pro-calcitonin level came back elevated at 0.21 #2. Fever, altered mental status present on admission related to the above #3. Rule out possibility of COVID 19 related pneumonia, COVID 19 PCR pending #4. Acute metabolic encephalopathy related to infection, improved #5. Possible mild fluid overload, acute exacerbation of congestive heart failure, with unknown systolic function #6. 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 History of slow-growing prostate cancer, under surveillance by Dr. Craig #9. Diabetes multistep 2 #10. Hypertension #11. Hyperlipidemia #12. Chronic kidney disease, status post kidney transplant currently on Prograf #13. Hypothyroidism #14. Coronary artery disease status post bypass grafting #15. Anxiety/depression Plan: Continue current antibiotics, patient continues to be afebrile, still awaiting results of the Covid 19 PCR, maintain droplet precautions, today's chest x-ray has been reviewed showing improving left perihilar infiltrate. Patient still has episodes of confusion, however overall his mentation has improved, and he is feeling better today. Will await results of the Covid 19 testing I performed a history & physical examination of the patient and discussed their management with my nurse practitioner, Marge Adams. I reviewed the nurse practitioner's note and agree with the documented findings and plan of care. Lung sounds are positive for diminished breath sounds. The findings and the impression was discussed with the patient. I attest to the documentation by the nurse practitioner. Time with Patient: Less than 30
--- NOTE | 2020-02-25 14:17 | P.CRDCN ---
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 He follows in the office with Dr. Crabtree. We have been asked to see in consultation for atrial fibrillation. Altered mental status, fever and cough. He is currently Covid pending although being treated as presumed Covid. He is seen and evaluated at a distance. Information is obtained from the medical record as well as the nursing staff. He is seen in the sitting up in the bed in no acute distress maintaining oxygen saturations on room air. He denies symptoms of chest pain, shortness of breath, dizziness or palpitations. He states his cough has improved however he continues to feel generally weak. DIAGNOSTICS EKG reveals atrial fibrillation with heart rate of 111. Chest xray on admission revealed superimposed bilateral pneumonia. Repeat today reveals left perihilar infiltrate improving from previous exam. Laboratory reviewed, WBC 4.9, hemoglobin 12.6, platelets 120, d-dimer 1.3, fibrinogen 589, sodium 134, potassium 4, creatinine 1.08, lactate 1030, C- reactive protein 220, NT proBNP 1830, troponin negative 1 and pro-calcitonin 0.21. Current cardiac medications include atorvastatin 20 mg at bedtime, Lopressor 25 mg twice a day, hydralazine 25 mg 3 times a day and amlodipine 5 mg twice a day. Most recent echocardiogram obtained in the office December 2018 reveals preserved LV systolic function with ejection fraction 55%, mild to moderate aortic regurgitation and left atrial enlargement. Most recent stress test was a Lexiscan stress test performed in the office April 2019 was negative for reversibility. REVIEW OF SYSTEMS At the time of my exam: CONSTITUTIONAL: Denies fever or chills. CARDIOVASCULAR: Denies chest pain, shortness of breath, orthopnea, PND or palpitations. RESPIRATORY: Denies cough. GASTROINTESTINAL: Denies abdominal pain, diarrhea, constipation, nausea or vomiting. MUSCULOSKELETAL: Denies myalgias. NEUROLOGIC: Denies numbness, tingling or weakness. ENDOCRINE: Denies fatigue, weight change, polydipsia or polyurina. GENITOURINARY: Denies burning, hematuria or urgency with micturation. HEMATOLOGIC: Denies history of anemia or bleeding. PHYSICAL EXAMINATION - patient was evaluated from the doorway. Physical examination was not performed are warranted. Blood pressure 142/87 heart rate 103 afebrile and maintaining oxygen saturation on 102.3F. CONSTITUTIONAL: No apparent distress. ASSESSMENT Sepsis secondary to bilateral pneumonia Febrile illness Chronic persistent atrial fibrillation with mildly rapid rates Hypertension Dyslipidemia Chronic kidney disease status post renal transplantation PLAN Rapid heart rates likely secondary to underlying infection. His blood pressure can tolerate an increased dose of metoprolol. This may just be transient given his infection. We'll increase to 50 mg twice a day temporarily. Further ad justment can be made based on his blood pressure and heart rate. Thank you kindly for this consultation. Nurse Practitioner note has been reviewed, I agree with a documented findings and plan of care. Patient was seen and examined. 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." Hard of hearing, LOW PLATELETS, History of Any Multi-Drug Resistant Organisms: None Reported Past Surgical History: Orthopedic Surgery Additional Past Surgical History / Comment(s): kidney transplant, parathyroid surgery, knee surgery, pericardiocentesis Past Anesthesia/Blood Transfusion Reactions: No Reported Reaction Past Psychological History: Anxiety, Depression Smoking Status: Never smoker Past Alcohol Use History: Rare Past Drug Use History: None Reported - Past Family History Father Family Medical History: Deep Vein Thrombosis (DVT) Son(s) Family Medical History: Cancer Additional Family Medical History / Comment(s): Skin cancer. Medications and Allergies Home Medications Medication Instructions Recorded Confirmed Type Amitriptyline HCl [Elavil] 100 mg PO HS@2100 02/09/17 02/23/20 History Finasteride [Proscar] 5 mg PO DAILY@89902/09/17 02/23/20 History Tamsulosin HCl [Flomax] 0.4 mg PO DAILY@89902/09/17 02/23/20 History DULoxetine HCL [Cymbalta] 120 mg PO DAILY 04/19/18 02/23/20 History Multivitamins, Thera [Multivitamin 1 tab PO DAILY@89912/31/18 02/23/20 History (formulary)] Metoprolol Tartrate [Lopressor] 25 mg PO BID@0900,2100 01/03/19 02/23/20 History Atorvastatin Calcium [Lipitor] 20 mg PO HS@209910/14/19 02/23/20 History traZODone HCL 100 mg PO HS@209910/14/19 02/23/20 History Levothyroxine Sodium [Levoxyl] 25 mcg PO DAILY@0612/18/19 02/23/20 History Vit C/E/Zn/Coppr/Lutein/Zeaxan 1 cap PO DAILY@0912/18/19 02/23/20 History [Preservision Areds 2 Softgel] amLODIPine [Norvasc] 5 mg PO BID 12/18/19 02/23/20 History Acetaminophen Tab [Tylenol] 650 mg PO Q6HR PRN tab 12/24/19 02/23/20 Rx Calcium Carbonate [Tums] 1,000 mg PO DAILY@0912/28/19 02/23/20 History Eltrombopag Olamine [Promacta] 50 mg PO DAILY@0612/28/19 02/23/20 History Pantoprazole [Protonix] 40 mg PO DAILY@0900 12/28/19 02/23/20 History traMADol HCL 50 mg PO BID 12/28/19 02/23/20 History INSULIN LISPRO (HumaLOG) [humaLOG] 0 unit SQ ACHS #1 vial 12/31/19 02/23/20 Rx Magnesium Oxide [Mag-Ox] 400 mg PO DAILY@0900 tab 12/31/19 02/23/20 Rx Eltrombopag Olamine [Promacta] 25 mg PO DAILY@59902/23/20 02/23/20 History Insulin Glargine,Hum.rec.anlog 25 unit SQ HS 02/23/20 02/23/20 History [Basaglar Kwikpen U-100] Tacrolimus [Prograf] 0.5 mg PO BID 02/23/20 02/23/20 History clonazePAM [KlonoPIN] 1 - 2 mg PO HS PRN 02/23/20 02/23/20 History hydrALAZINE HCL [Apresoline] 25 mg PO TID 02/23/20 02/23/20 History Allergies Allergy/AdvReac Type Severity Reaction Status Date / Time morphine Allergy Itching Verified 02/23/20 11:29 Physical Exam Vitals: Vital Signs Temp Pulse Resp BP Pulse Ox 02/25/20 08:38 100.1 F H 02/25/20 07:09 103 H 18 02/25/20 07:00 102.3 F H 103 H 18 142/87 95 02/25/20 01:14 98.8 F 88 20 114/76 94 L 02/24/20 20:25 98.6 F 102 H 22 114/67 96 02/24/20 15:00 99.1 F 117 H 20 114/75 95 Intake and Output 02/24/20 02/25/20 02/25/20 22:59 06:59 14:59 Output Total 150 600 750 Balance -150 -600 -750 Output: Urine 150 600 750 Other: Voiding Method Incontinent Incontinent # Bowel Movements 1 Results 02/25/20 07:00 02/25/20 07:00 Cardiac Enzymes 02/25/20 Range/Units 07:00 AST 27 (17-59) U/L Lactate Dehydrogenase 1015 H (313-618) U/L CBC 02/25/20 Range/Units 07:00 WBC 4.9 (3.8-10.6) k/uL RBC 4.41 (4.30-5.90) m/uL Hgb 12.6 L (13.0-17.5) gm/dL Hct 40.2 (39.0-53.0) % Plt Count 120 L (150-450) k/uL Comprehensive Metabolic Panel 02/25/20 Range/Units 07:00 Sodium 134 L (137-145) mmol/L Potassium 4.0 (3.5-5.1) mmol/L Chloride 100 (98-107) mmol/L Carbon Dioxide 27 (22-30) mmol/L BUN 20 (9-20) mg/dL Creatinine 1.08 (0.66-1.25) mg/dL Glucose 131 H (74-99) mg/dL Calcium 7.3 L (8.4-10.2) mg/dL AST 27 (17-59) U/L ALT 16 (4-49) U/L Alkaline Phosphatase 68 (38-126) U/L Total Protein 5.1 L (6.3-8.2) g/dL Albumin 2.9 L (3.5-5.0) g/dL Current Medications Generic Name Dose Route Start Last Admin Trade Name Freq PRN Reason Stop Dose Admin Acetaminophen 650 mg 02/24/20 03:40 02/25/20 07:07 Tylenol Tab PO 650 mg Q6HR PRN Administration Fever and/ or Pain Amlodipine Besylate 5 mg 02/23/20 21:00 02/25/20 07:07 Norvasc PO 5 mg BID [place] Administration Atorvastatin Calcium 20 mg 02/23/20 21:00 02/24/20 21:13 Lipitor PO 20 mg HS@2100 [place] Administration Azithromycin 500 mg 02/24/20 09:00 02/25/20 07:08 Zithromax PO 500 mg DAILY [place] Administration Duloxetine HCl 120 mg 02/24/20 09:00 02/25/20 07:07 Cymbalta PO 120 mg DAILY [place] Administration Enoxaparin Sodium 40 mg 02/24/20 09:45 02/25/20 07:06 Lovenox SQ 40 mg DAILY [place] Administration Finasteride 5 mg 02/24/20 09:00 02/25/20 07:07 Proscar PO 5 mg DAILY@0900 [place] Administration Furosemide 20 mg 02/24/20 08:00 02/25/20 07:06 Lasix IV 20 mg Q12HR [place] Administration Hydralazine HCl 25 mg 02/23/20 22:00 02/25/20 07:07 Apresoline PO 25 mg TID [place] Administration Sodium Chloride 1,000 mls @ 20 mls/hr 02/23/20 09:00 02/24/20 19:09 Saline 0.9% IV Not Given .Q24H [place] Ceftriaxone Sodium 1 gm/ 50 mls @ 100 mls/hr 02/24/20 09:00 02/25/20 07:06 Sodium Chloride IVPB 02/27/20 09:01 100 mls/hr Q24HR [place] Administration Insulin Aspart 0 unit 02/23/20 12:30 02/25/20 07:27 Novolog SQ 1 unit ACHS [place] Administration Protocol Insulin Detemir 15 unit 02/24/20 21:00 02/24/20 21:14 Levemir SQ 15 unit HS [place] Administration Levothyroxine Sodium 25 mcg 02/24/20 06:30 02/25/20 05:22 Synthroid PO 25 mcg DAILY@0630 [place] Administration Melatonin 3 mg 02/24/20 00:04 02/24/20 21:44 Melatonin PO 3 mg HS PRN Administration Insomnia Metoprolol Tartrate 50 mg 02/25/20 21:00 Lopressor PO BID@0900,2100 [facility] Miscellaneous Information 1 each 02/23/20 10:08 Pneumonia Protocol Utilized PO ONCE PRN Per Protocol Multivitamins/Minerals 1 each 02/24/20 09:00 02/25/20 07:08 Ivite PO 1 each DAILY@0900 [facility] Administration Non-Formulary Medication 50 mg 02/24/20 06:00 02/25/20 05:07 Eltrombopag Olamine [Promacta] PO Not Given DAILY@0600 [facility] Non-Formulary Medication 25 mg 02/24/20 06:00 02/25/20 05:07 Eltrombopag Olamine [Promacta] PO Not Given DAILY@0600 [facility] Pantoprazole Sodium 40 mg 02/24/20 09:00 02/25/20 07:07 Protonix PO 40 mg DAILY@0900 [facility] Administration Tacrolimus 0.5 mg 02/23/20 21:00 02/25/20 07:08 Prograf PO 0.5 mg BID [facility] Administration Tamsulosin HCl 0.4 mg 02/24/20 09:00 02/25/20 07:07 Flomax PO 0.4 mg DAILY@0900 [facility] Administration Intake and Output 02/24/20 02/25/20 02/25/20 22:59 06:59 14:59 Output Total 150 600 750 Balance -150 -600 -750 Output: Urine 150 600 750 Other: Voiding Method Incontinent Incontinent # Bowel Movements 1 02/25/20 07:00 02/25/20 07:00
--- NOTE | 2020-02-25 15:00 | ECHOF ---
Referral Reason:CHF MEASUREMENTS -------- HEIGHT: 177.8 cm WEIGHT: 90.7 kg BP: 142/87 RVIDd: 3.3 cm (< 3.3) IVSd: 1.4 cm (0.6 - 1.1) LVIDd: 4.1 cm (3.9 - 5.3) LVPWd: 1.4 cm (0.6 - 1.1) IVSs: 1.8 cm LVIDs: 2.6 cm LVPWs: 2.1 cm LA Diam: 3.7 cm (2.7 - 3.8) Ao Diam: 4.1 cm (2.0 - 3.7) AV Cusp: 1.8 cm (1.5 - 2.6) MV EXCURSION: 16.399 mm (> 18.000) MV EF SLOPE: 36 mm/s (70 - 150) EPSS: 0.4 cm AR PHT: 748 ms RAP: 5.00 mmHg RVSP: 28.76 mmHg FINDINGS -------- Atrial fibrillation. This was a technically adequate study. The left ventricular size is normal. There is moderate concentric left ventricular hypertrophy. O verall left ventricular systolic function is normal with, an EF between 55 - 60 %. The right ventricle is mildly enlarged. The left atrial size is normal. The right atrium is normal in size. There is mild aortic valve sclerosis. There is mild aortic regurgitation. Mild mitral annular calcification present. Mild mitral regurgitation is present. Mild tricuspid regurgitation present. Right ventricular systolic pressure is normal at < 35 mmHg. The pulmonic valve was not well visualized. The aortic root is dilated measuring 4.1cm. IVC Not well visulized. There is no pericardial effusion. CONCLUSIONS -------- 1. The left ventricular size is normal. 2. There is moderate concentric left ventricular hypertrophy. 3. Overall left ventricular systolic function is normal with, an EF between 55 - 60 %. 4. The right ventricle is mildly enlarged. 5. There is mild aortic valve sclerosis. 6. There is mild aortic regurgitation. 7. Mild mitral annular calcification present. 8. Mild mitral regurgitation is present. 9. Mild tricuspid regurgitation present. 10. The aortic root is dilated measuring 4.1cm. 11. There is no pericardial effusion. [employer] OVERSEER: Darline Johnson RDCS
--- NOTE | 2020-02-25 15:45 | P.PN ---
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 Patient lives with his and has been more confused recently. Overnight patient became progressively worse. Patient was also febrile and EMS was called. Temperature was 103 F as per EMS. Patient is currently lethargic and sleepy and could not provide any history. Patient and his have been staying at home and following social distance precautions.. Patient does have chronic back pain and supposed to follow-up with orthopedic surgery but could not follow-up due to COVID-19 pandemic. Laboratory data showed WBC 7.2, hemoglobin 13.7, platelets 96 Sodium 132, potassium 3.7, BUN 16 and creatinine 0.94 Calcium 7.6 total bilirubin is 1.8 proBNP 1830 Troponin times one 0.030 EKG showed atrial fibrillation with ventricular rate 111 Chest x-ray showed findings consistent with mild heart failure. Cannot exclude superimposed bilateral pneumonias. Subjective 02/24/2020 This is a pleasant 79 years old male with multiple medical problems who was admitted yesterday for bilateral pneumonia, rule out Covid. Also he has A. fib with RVR with elements of CHF and mig welder been consulted. Patient is awake and alert, lying in bed not in respiratory distress, however it looks lethargic. He is fully awake and oriented. No chest pain. Mild cough. No significant back pain this morning I saw her and fever of 100.7 this morning, tachycardic at 106-111, blood pressure is normal at 131/73 and he is saturating 94% on 3 L oxygen He was hypoglycemic this morning at 49, currently corrected at 102, we will lower his home dose of Levemir 25 units at bedtime to 15 units at bedtime No labs this morning Patient is currently on Zithromax and ceftriaxone, also he is on IV Lasix 20 mg twice daily. Pulmonary and cardiology teams on the case 02/25/2020 Patient's Covid 19 test is still pending patient is feeling better. Constitutional: Denied any fatigue denied any fever. Cardio vascular: denied any chest pain, palpitations Gastrointestinal denied any nausea vomiting Pulmonary: Denied any shortness of breath cough Neurologic denied any new focal deficits All inpatient medications were reviewed and appropriate changes in these medications as dictated in the interval history and assessment and plan. Objective - Vital Signs Vital signs: Vital Signs Temp 99.3 F 02/25/20 10:37 Pulse 103 H 02/25/20 07:09 Resp 18 02/25/20 07:09 BP 142/87 02/25/20 07:00 Pulse Ox 95 02/25/20 07:00 Intake & Output 02/24/20 02/25/20 02/25/20 18:59 06:59 18:59 Intake Total 430 190 Output Total 800 750 750 Balance -370 -750 -560 Intake: Intake, IV Titration 190 190 Amount Sodium Chloride 0.9% 1, 140 140 000 ml @ 20 mls/hr IV . Q24H [place] Rx#:[id number] cefTRIAXone 1 gm In 50 50 Sodium Chloride 0.9% 50 ml @ 100 mls/hr IVPB Q24HR [place] Rx#:[id number] Oral 240 Output: Urine 800 750 750 Other: Voiding Method Incontinent Incontinent Incontinent # Bowel Movements 1 - Exam GENERAL: The patient is alert and oriented x3, not in any acute distress. Well developed, well nourished. HEENT: Pupils are round and equally reacting to light. EOMI. No scleral icterus. No conjunctival pallor. Normocephalic, atraumatic. No pharyngeal erythema. No thyromegaly. CARDIOVASCULAR: S1 and S2 present. No murmurs, rubs, or gallops. -PULMONARY: Chest is clear to auscultation, few crepitations bilaterally with decreased breath sounds in the lower zones ABDOMEN: Soft, nontender, nondistended, normoactive bowel sounds. No palpable organomegaly. MUSCULOSKELETAL: No joint swelling or deformity. EXTREMITIES: No cyanosis, clubbing, or pedal edema. NEUROLOGICAL: Gross neurological examination did not reveal any focal deficits. SKIN: No rashes. no petechiae. Note: Because of COVID 19 isolation, some of the history and physical exam findings or indirect and obtained from nursing staff, and other physician examinations to avoid unnecessary contact with the patient. - Labs CBC & Chem 7: 02/25/20 07:00 02/25/20 07:00 Labs: Abnormal Lab Results - Last 24 Hours (Table) 02/24/20 02/24/20 02/25/20 Range/Units 17:14 20:24 07:00 Hgb 12.6 L (13.0-17.5) gm/dL RDW 16.2 H (11.5-15.5) % Plt Count 120 L (150-450) k/uL Lymphocytes # 0.5 L (1.0-4.8) k/uL Fibrinogen (200-500) mg/dL D-Dimer (<0.60) mg/L FEU Sodium (137-145) mmol/L Glucose (74-99) mg/dL POC Glucose (mg/dL) 272 H 234 H (75-99) mg/dL Calcium (8.4-10.2) mg/dL Lactate Dehydrogenase (313-618) U/L C-Reactive Protein (<10.0) mg/L Total Protein (6.3-8.2) g/dL Albumin (3.5-5.0) g/dL 02/25/20 02/25/20 02/25/20 Range/Units 07:00 07:00 07:13 Hgb (13.0-17.5) gm/dL RDW (11.5-15.5) % Plt Count (150-450) k/uL Lymphocytes # (1.0-4.8) k/uL Fibrinogen 589 H (200-500) mg/dL D-Dimer 1.30 H (<0.60) mg/L FEU Sodium 134 L (137-145) mmol/L Glucose 131 H (74-99) mg/dL POC Glucose (mg/dL) 141 H (75-99) mg/dL Calcium 7.3 L (8.4-10.2) mg/dL Lactate Dehydrogenase 1015 H (313-618) U/L C-Reactive Protein 318.5 H (<10.0) mg/L Total Protein 5.1 L (6.3-8.2) g/dL Albumin 2.9 L (3.5-5.0) g/dL 02/25/20 Range/Units 11:48 Hgb (13.0-17.5) gm/dL RDW (11.5-15.5) % Plt Count (150-450) k/uL Lymphocytes # (1.0-4.8) k/uL Fibrinogen (200-500) mg/dL D-Dimer (<0.60) mg/L FEU Sodium (137-145) mmol/L Glucose (74-99) mg/dL POC Glucose (mg/dL) 137 H (75-99) mg/dL Calcium (8.4-10.2) mg/dL Lactate Dehydrogenase (313-618) U/L C-Reactive Protein (<10.0) mg/L Total Protein (6.3-8.2) g/dL Albumin (3.5-5.0) g/dL Microbiology - Last 24 Hours (Table) 02/23/20 09:16 Blood Culture - Preliminary Blood No Growth after 48 hours Assessment and Plan Plan: Bilateral pneumonias:: 19 is still pending Bactrim pneumonia cannot be ruled out patient is being treated for bacterial pneumonia awaiting court results. -Acute hypoxic respiratory failure secondary to pneumonia sepsis secondary to above Suspected COVID-19 virus infection Acute toxic encephalopathy secondary to infection, improved Possibly of congestive heart failure unknown whether diastolic a systolic dysfunction, obtaining an echocardiogram. 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
[2020-02-25 16:59] LABS: Glucose,Whole Blood 229 mg/dL (75-99)
[2020-02-25 17:14] LABS: Ferritin 439.1 ng/mL (22.0-322.0)
[2020-02-25] MEDS: SODIUM CHLORIDE 0.9% 1,000 ML IV SCH (18:57)
[2020-02-25 20:40] LABS: Glucose,Whole Blood 275 mg/dL (75-99)
[2020-02-25] MEDS: INSULIN DETEMIR (LEVEMIR) 100 UNIT/ML SYR SQ SCH (21:24)
[2020-02-25] MEDS: METOPROLOL TARTRATE 50 MG TAB PO SCH (21:25)
[2020-02-25] MEDS: MELATONIN 3 MG TABLET PO PRN (21:25)
[2020-02-25] MEDS: ATORVASTATIN 20 MG TAB PO SCH (21:25)
[2020-02-26] MEDS: ELTROMBOPAG OLAMINE 25 MG PO SCH (05:03)
[2020-02-26] MEDS: ELTROMBOPAG OLAMINE 50 MG PO SCH (05:03)
[2020-02-26] MEDS: LEVOTHYROXINE 25 MCG TAB PO SCH (05:26)
[2020-02-26 07:16] LABS: Glucose,Whole Blood 114 mg/dL (75-99)
[2020-02-26] MEDS: INSULIN ASPART (NovoLOG) 100 UNIT/ML VIAL SQ SCH ×4 (07:23→20:52)
[2020-02-26] MEDS: SODIUM CHLORIDE 0.9% 1,000 ML IV SCH (08:28)
[2020-02-26] MEDS: FUROSEMIDE 10 MG/ML 2 ML VIAL IV SCH ×2 (08:30→20:52)
[2020-02-26] MEDS: ENOXAPARIN 40 MG/0.4 ML SYRINGE SQ SCH (08:30)
[2020-02-26] MEDS: VIT A,C & E-LUTEIN-MINERALS 1 EACH TAB PO SCH (08:30)
[2020-02-26] MEDS: PANTOPRAZOLE 40 MG TABLET PO SCH (08:30)
[2020-02-26] MEDS: METOPROLOL TARTRATE 50 MG TAB PO SCH ×2 (08:30→20:52)
[2020-02-26] MEDS: TAMSULOSIN 0.4 MG CAP.ER.24H PO SCH (08:31)
[2020-02-26] MEDS: amLODIPine 5 MG TAB PO SCH ×2 (08:31→20:52)
[2020-02-26] MEDS: DULoxetine HCL 60 MG CAPSULE.DR PO SCH (08:31)
[2020-02-26] MEDS: AZITHROMYCIN 500 MG TAB PO SCH (08:31)
[2020-02-26] MEDS: FINASTERIDE 5 MG TAB PO SCH (08:31)
[2020-02-26] MEDS: TACROLIMUS 0.5 MG CAP PO SCH ×2 (08:31→20:52)
[2020-02-26 11:36] LABS: Glucose,Whole Blood 206 mg/dL (75-99)
--- NOTE | 2020-02-26 12:54 | P.PN ---
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 Patient lives with his and has been more confused recently. Overnight patient became progressively worse. Patient was also febrile and EMS was called. Temperature was 103 F as per EMS. Patient is currently lethargic and sleepy and could not provide any history. Patient and his have been staying at home and following social distance precautions.. Patient does have chronic back pain and supposed to follow-up with orthopedic surgery but could not follow-up due to COVID-19 pandemic. Laboratory data showed WBC 7.2, hemoglobin 13.7, platelets 96 Sodium 132, potassium 3.7, BUN 16 and creatinine 0.94 Calcium 7.6 total bilirubin is 1.8 proBNP 1830 Troponin times one 0.030 EKG showed atrial fibrillation with ventricular rate 111 Chest x-ray showed findings consistent with mild heart failure. Cannot exclude superimposed bilateral pneumonias. Subjective 02/24/2020 This is a pleasant 79 years old male with multiple medical problems who was admitted yesterday for bilateral pneumonia, rule out Covid. Also he has A. fib with RVR with elements of CHF and retail operations manager been consulted. Patient is awake and alert, lying in bed not in respiratory distress, however it looks lethargic. He is fully awake and oriented. No chest pain. Mild cough. No significant back pain this morning I saw her and fever of 100.7 this morning, tachycardic at 106-111, blood pressure is normal at 131/73 and he is saturating 94% on 3 L oxygen He was hypoglycemic this morning at 49, currently corrected at 102, we will lower his home dose of Levemir 25 units at bedtime to 15 units at bedtime No labs this morning Patient is currently on Zithromax and ceftriaxone, also he is on IV Lasix 20 mg twice daily. Pulmonary and cardiology teams on the case 02/25/2020 Patient's Covid 19 test is still pending patient is feeling better. 02/26/2020 patient is still a bit short of breath off oxygen and continue with antiemetics for today possibly of discharge tomorrow to subacute intimidation patient is quite weak and PT and OT evaluate the patient is recommending subacute rehabitation. Constitutional: Denied any fatigue denied any fever. Cardio vascular: denied any chest pain, palpitations Gastrointestinal denied any nausea vomiting Pulmonary: Denied any shortness of breath cough Neurologic denied any new focal deficits All inpatient medications were reviewed and appropriate changes in these medications as dictated in the interval history and assessment and plan. Objective - Vital Signs Vital signs: Vital Signs Temp 99.7 F H 02/26/20 07:00 Pulse 102 H 02/26/20 07:00 Resp 18 02/26/20 07:00 BP 121/74 02/26/20 07:00 Pulse Ox 95 02/26/20 07:00 Intake & Output 02/25/20 02/26/20 02/26/20 18:59 06:59 18:59 Intake Total 190 Output Total 750 700 Balance -560 -700 Intake: Intake, IV Titration 190 Amount Sodium Chloride 0.9% 1, 140 000 ml @ 20 mls/hr IV . Q24H [place] Rx#:[id number] cefTRIAXone 1 gm In 50 Sodium Chloride 0.9% 50 ml @ 100 mls/hr IVPB Q24HR [facility] Rx#:[id number] Output: Urine 750 700 Other: Voiding Method Incontinent Incontinent Incontinent # Bowel Movements 1 - Exam GENERAL: The patient is alert and oriented x3, not in any acute distress. Well developed, well nourished. HEENT: Pupils are round and equally reacting to light. EOMI. No scleral icterus. No conjunctival pallor. Normocephalic, atraumatic. No pharyngeal erythema. No thyromegaly. CARDIOVASCULAR: S1 and S2 present. No murmurs, rubs, or gallops. -PULMONARY: Chest is clear to auscultation, few crepitations bilaterally with decreased breath sounds in the lower zones ABDOMEN: Soft, nontender, nondistended, normoactive bowel sounds. No palpable organomegaly. MUSCULOSKELETAL: No joint swelling or deformity. EXTREMITIES: No cyanosis, clubbing, or pedal edema. NEUROLOGICAL: Gross neurological examination did not reveal any focal deficits. patient does have significant generalized weakness SKIN: No rashes. no petechiae. - Labs CBC & Chem 7: 02/25/20 07:00 02/25/20 07:00 Labs: Abnormal Lab Results - Last 24 Hours (Table) 02/25/20 02/25/20 02/25/20 Range/Units 07:00 16:57 20:32 POC Glucose (mg/dL) 229 H 275 H (75-99) mg/dL Ferritin 439.1 H (22.0-322.0) ng/mL 02/26/20 02/26/20 Range/Units 07:14 11:34 POC Glucose (mg/dL) 114 H 206 H (75-99) mg/dL Ferritin (22.0-322.0) ng/mL Microbiology - Last 24 Hours (Table) 02/23/20 09:16 Blood Culture - Preliminary Blood No Growth after 72 hours Assessment and Plan Plan: Bilateral pneumonias:: 19 is still pending Bactrim pneumonia cannot be ruled out patient is being treated for bacterial pneumonia awaiting court results. -Acute hypoxic respiratory failure secondary to pneumonia sepsis secondary to above Suspected COVID-19 virus infection Acute toxic encephalopathy secondary to infection, improved Possibly of congestive heart failure unknown whether diastolic a systolic dysfunction, obtaining an echocardiogram. 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
--- NOTE | 2020-02-26 13:29 | CDI ---
Documentation Clarification Form Date: 02/26/2020 01:11:46 PM From: Laine Whelan RN, CCDS Admit Date: 02/23/2020 10:08:00 AM Patient Name: Chet Lobo Visit Number: [id number] ATTENTION: The Clinical Documentation Specialists (CDI) and [facility] Coding Staff appreciate your assistance in clarifying documentation. Please respond to the clarification below the line at the bottom and electronically sign. The CDI & [facility] Coding staff will review the response and follow-up if needed. Please note: Queries are made part of the Legal Health Record. If you have any questions, please contact the author of this message via ITS. Dr. Nadeem Curtis CHF is documented in the Attending H&P and progress notes and requires further specificity by documenting provider. History/Risk Factors: Atrial Fib, DM, HTN, CRF stage 3, prostate cancer Clinical Indicators: 02/22 H&P: "EKG showed atrial fibrillation with ventricular rate 111 Chest x-ray showed findings consistent with mild heart failure." 02/24 - 02/25 Attending Progress Notes: "Acute toxic encephalopathy secondary to infection, improved possibly of congestive heart failure unknown whether diastolic a systolic dysfunction, obtaining an echocardiogram." 02/23-02/24 Pulmonary progress notes: "Possible mild fluid overload, acute exacerbation of congestive heart failure, with unknown systolic function." 02/22 0857 VS/Pulse OX: Temp 102.7, HR 114, RR 16, B/P 163/102, Spo2 97% ra BNP: 1830 02/25/2020 Echocardiogram Results: EF 55-60% 02/24 Chest X Ray: "Left perihilar infiltrate persists although is improved in the interval." Treatment: 02/22 Lasix 40 mg IVP OT 02/23 Lasix 20 mg IVP Q 12 hrs 02/22 Lopressor 25 mg PO BID increased to 50 mg PO BID on 02/24 02/22 1.5L 0.9% NS IVF Bolus In your professional opinion, can you please clarify the acuity and type of CHF if known? Diastolic Heart Failure: Acute Chronic Acute on Chronic Systolic & Diastolic Heart Failure: Acute Chronic Acute on Chronic Heart Failure Unable to Determine Other, please specify (Last Revision: October 2017) Already dictated in my note possible chronic diastolic dysfunction with acute exacerbation MTDD
--- NOTE | 2020-02-26 13:47 | CDI ---
Documentation Clarification Form Date: 02/26/2020 01:45:21 PM From: Laine Whelan RN, CCDS Admit Date: 02/23/2020 10:08:00 AM Patient Name: Chet Lobo Visit Number: [id number] ATTENTION: The Clinical Documentation Specialists (CDI) and [facility] Coding Staff appreciate your assistance in clarifying documentation. Please respond to the clarification below the line at the bottom and electronically sign. The CDI & [facility] Coding staff will review the response and follow-up if needed. Please note: Queries are made part of the Legal Health Record. If you have any questions, please contact the author of this message via ITS. Dr. Curtis Suspected COVID-19 virus infection is documented in the H&P and Progress Notes and requires definitive diagnosis. Patient history/risk factors: DM2, CKD stage 3, HTN, prostate cancer Clinical Indicators: 02/22 Patient presented to ED with AMS, fever of 103 Admitting Dx of Pneumonia, Covid 19 ruled out. 02/22 CXR: "FINDINGS CONSISTENT WITH MILD HEART FAILURE.I CANNOT EXCLUDE SUPERIMPOSED BILATERAL PNEUMONIAS." 02/22-02/24 Labs: Ferritin 440.5/439.2, LDH 1030/1015, CRP 220.9/318.5, Procalcitonin .21 02/22 Coronavirus PCR Negative 02/24 Cardiology Consult: "He is currently Covid pending although being treated as presumed Covid." 02/22 H&P: "Suspected COVID-19 virus infection acute metabolic encephalopathy secondary to infection Acute CHF with mild vascular congestion on chest x-ray. Plan: Continue with contact and droplet precautions and COVID-19 isolation." 02/25 Attending Progress Note: "Suspected COVID-19 virus infection." Treatment: 02/22 IV Zithromax 500mg IVPB x 1 dose followed by 500 mg PO QD 02/22 IV Ceftriaxone1 gm IVPB Q 24 hrs 02/22 1.5L 0.9% NS IVF Bolus In order to capture the severity of condition, please clarify if the above treatment/clinical indicators signify: COVID-19 False Negative Testing- Please provide clinical indicators for clinical diagnosis COVID-19 ruled out COVID-19 confirmed Other, please specify Unable to determine (Last Form Revision: September 2019) COVID-19 ruled out, already dictated in note MTDD
--- NOTE | 2020-02-26 14:10 | P.PN ---
Subjective Progress Note Date: 02/26/20 Principal diagnosis: Altered mentation, fever On 02/24/2020 patient seen in follow-up on general medical surgical floor. He is resting comfortably in bed, he is awake, he is answering some questions, but she feels that she still somewhat confused, but he was able to provide some history, seems to be able to carry on a conversation appropriately. Fever pattern seems to have improved since admission, his T-max in the last 24 hours was 100.7F this morning at 5:00, 3 L of oxygen and his pulse ox is 94-96%, slightly tachycardic with a rate of 106 BPM, no complaints of chest pain, there is no hemoptysis. He remains on cognition of azithromycin and Rocephin. His follow-up chest x-ray today shows new worsening lateral left midlung focal infiltrate and peripheral left basilar acute infiltrate and/or atelectasis. Correlate to exclude possible cold in 19 infection due to peripheral distribution. COVID 19 PCR test is still pending. Denies any fever or malaise, no nausea vomiting or diarrhea. No complex of sore throat. He does have a mild cough. Procalcitonin level is elevated at 0.21 On 02/25/2020 patient is seen in follow-up on the general medical surgical [facility]. He is feeling better today, remains on azithromycin and Rocephin, his Covid 19 PCR is still pending. His follow-up chest x-ray today shows left perihilar infiltrate that seems to be improving. Patient is sitting up in the recliner, in no acute distress, at times seems to be a bit confused, denies any chest discomfort, breathing is comfortable, patient is on 3 L of oxygen with pulse ox of 95%, he still febrile, with a T-max of 102.3F. Today's labs have been reviewed, showing white blood cell count within normal limits of 4.9, hemoglobin is 12.6, d-dimer is 1.3, sodium is 134, Evelyn electrolytes and renal profile were within normal limits, LDH is relatively stable at 1015, CRP is on a rise at 318. Procalcitonin level 0.21, suggesting possibility of underlying bacterial infection likely related to underlying pneumonia. On 02/26/2020 patient seen in follow-up general medical surgical floor. He is awake and alert, in no acute distress, his COVID 19 test came back negative. His currently on 4 L of oxygen with pulse ox of 94%, he still having some low- grade fevers, fever pattern seems to have improved. He remains on a combination of Rocephin and Zithromax, his blood culture has shown no growth, we have not been able to collect a sputum specimen from, but clinically he is feeling better, he sitting up in chair, in no acute distress, patient seems to have improved, he is in some questions and having a conversation with this and seems to be responding appropriately. No new chest x-ray today, no new lab work. Lung sounds revealed a few scattered rales at bilateral bases, no wheezing Objective - Vital Signs Vital signs: Vital Signs Temp 99.7 F H 02/26/20 07:00 Pulse 102 H 02/26/20 07:00 Resp 18 02/26/20 07:00 BP 121/74 02/26/20 07:00 Pulse Ox 95 02/26/20 07:00 Intake & Output 02/25/20 02/26/20 02/26/20 18:59 06:59 18:59 Intake Total 190 Output Total 750 700 Balance -560 -700 Intake: Intake, IV Titration 190 Amount Sodium Chloride 0.9% 1, 140 000 ml @ 20 mls/hr IV . Q24H [place] Rx#:[id number] cefTRIAXone 1 gm In 50 Sodium Chloride 0.9% 50 ml @ 100 mls/hr IVPB Q24HR [place] Rx#:[id number] Output: Urine 750 700 Other: Voiding Method Incontinent Incontinent Incontinent # Bowel Movements 1 - Exam GENERAL EXAM: Alert, pleasant, 79-year-old overweight white male, currently on 4 L of oxygen a pulse ox of 95%, slightly pale, comfortable in no apparent distress. HEAD: Normocephalic/atraumatic. EYES: Normal reaction of pupils, equal size. Conjunctiva pink, sclera white. NOSE: Clear with pink turbinates. THROAT: No erythema or exudates. NECK: No masses, no JVD, no thyroid enlargement, no adenopathy. CHEST: No chest wall deformity. Symmetrical expansion. LUNGS: Equal air entry with no crackles, wheeze, rhonchi or dullness. CVS: Regular rate and rhythm, normal S1 and S2, no gallops, no murmurs, no rubs ABDOMEN: Soft, nontender. No hepatosplenomegaly, normal bowel sounds, no guarding or rigidity. EXTREMITIES: No clubbing, no edema, no cyanosis, 2+ pulses and upper and lower extremities. MUSCULOSKELETAL: Muscle strength and tone normal. SPINE: No scoliosis or deformity SKIN: No rashes CENTRAL NERVOUS SYSTEM: Alert and oriented -3. No focal deficits, tone is normal in all 4 extremities. PSYCHIATRIC: Alert and oriented -3. Appropriate affect. Intact judgment and insight. - Labs CBC & Chem 7: 02/25/20 07:00 02/25/20 07:00 Labs: Abnormal Lab Results - Last 24 Hours (Table) 02/25/20 02/25/20 02/25/20 Range/Units 07:00 16:57 20:32 POC Glucose (mg/dL) 229 H 275 H (75-99) mg/dL Ferritin 439.1 H (22.0-322.0) ng/mL 02/26/20 02/26/20 Range/Units 07:14 11:34 POC Glucose (mg/dL) 114 H 206 H (75-99) mg/dL Ferritin (22.0-322.0) ng/mL Microbiology - Last 24 Hours (Table) 02/23/20 09:16 Blood Culture - Preliminary Blood No Growth after 72 hours Assessment and Plan Plan: Assessment: #1. Sepsis, likely related to underlying bilateral pneumonia, patient presented with vascular congestion and mild interstitial changes, however superimposed bilateral pneumonia could not be entirely excluded, in the immunosuppressed host with history of nephrectomy on immunosuppressive medications, including Prograf. Pro-calcitonin level came back elevated at 0.21 #2. Fever, altered mental status present on admission related to the above #3. Ruled out possibility of COVID 19 related pneumonia, COVID 19 PCR negative #4. Acute metabolic encephalopathy related to infection, improved #5. Possible mild fluid overload, acute exacerbation of congestive heart failure, with unknown systolic function #6. 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 History of slow-growing prostate cancer, under surveillance by Dr. Craig #9. Diabetes multistep 2 #10. Hypertension #11. Hyperlipidemia #12. Chronic kidney disease, status post kidney transplant currently on Prograf #13. Hypothyroidism #14. Coronary artery disease status post bypass grafting #15. Anxiety/depression Plan: Patient is improving, febrile pattern is improving, still having some low-grade fevers, continue with current antibiotics, COVID 19 has been ruled out, increase activity as tolerated, to follow-up chest x-ray in the morning, obtain follow-up blood work in the morning, will follow I performed a history & physical examination of the patient and discussed their management with my nurse practitioner, Marge Adams. I reviewed the nurse practitioner's note and agree with the documented findings and plan of care. Lung sounds are positive for diminished breath sounds. The findings and the im pression was discussed with the patient. I attest to the documentation by the nurse practitioner. Time with Patient: Less than 30
[2020-02-26] MEDS: ACETAMINOPHEN TAB 325 MG TAB PO PRN (14:46)
[2020-02-26 16:20] LABS: Glucose,Whole Blood 261 mg/dL (75-99)
[2020-02-26 20:25] LABS: Glucose,Whole Blood 297 mg/dL (75-99)
[2020-02-26] MEDS: ATORVASTATIN 20 MG TAB PO SCH (20:52)
[2020-02-26] MEDS: INSULIN DETEMIR (LEVEMIR) 100 UNIT/ML SYR SQ SCH (20:52)
[2020-02-27] MEDS: ACETAMINOPHEN TAB 325 MG TAB PO PRN (01:31)
[2020-02-27] MEDS: MELATONIN 3 MG TABLET PO PRN ×2 (01:31→23:46)
[2020-02-27] MEDS: ELTROMBOPAG OLAMINE 50 MG PO SCH (05:10)
[2020-02-27] MEDS: ELTROMBOPAG OLAMINE 25 MG PO SCH (05:10)
[2020-02-27] MEDS: LEVOTHYROXINE 25 MCG TAB PO SCH (05:35)
[2020-02-27 06:51] LABS: Glucose,Whole Blood 80 mg/dL (75-99)
[2020-02-27] MEDS: INSULIN ASPART (NovoLOG) 100 UNIT/ML VIAL SQ SCH ×4 (07:35→20:38)
[2020-02-27] MEDS: amLODIPine 5 MG TAB PO SCH ×2 (07:42→20:38)
[2020-02-27] MEDS: METOPROLOL TARTRATE 50 MG TAB PO SCH ×2 (07:42→20:38)
[2020-02-27] MEDS: DULoxetine HCL 60 MG CAPSULE.DR PO SCH (07:42)
[2020-02-27] MEDS: PANTOPRAZOLE 40 MG TABLET PO SCH (07:42)
[2020-02-27] MEDS: AZITHROMYCIN 500 MG TAB PO SCH (07:43)
[2020-02-27] MEDS: VIT A,C & E-LUTEIN-MINERALS 1 EACH TAB PO SCH (07:43)
[2020-02-27] MEDS: TAMSULOSIN 0.4 MG CAP.ER.24H PO SCH (07:43)
[2020-02-27] MEDS: FINASTERIDE 5 MG TAB PO SCH (07:43)
[2020-02-27] MEDS: FUROSEMIDE 10 MG/ML 2 ML VIAL IV SCH ×2 (07:44→20:38)
[2020-02-27] MEDS: TACROLIMUS 0.5 MG CAP PO SCH ×2 (07:44→20:37)
[2020-02-27] MEDS: ENOXAPARIN 40 MG/0.4 ML SYRINGE SQ SCH (07:55)
[2020-02-27 08:22] LABS: Anisocytosis Slight; HCT 37.1 % (39.0-53.0); HGB 11.9 gm/dL (13.0-17.5); MCH 29.2 pg (25.0-35.0); MCHC 32.1 g/dL (31.0-37.0); MCV 91.1 fL (80.0-100.0); Poikilocytosis Slight; RBC 4.07 m/uL (4.30-5.90); RDW 16.1 % (11.5-15.5)
[2020-02-27 08:23] LABS: African American GFR (CKD) >90 (>60 ml/min/1.73 sqM); Anion Gap 7 mmol/L; Blood Urea Nitrogen 18 mg/dL (9-20); Calcium 6.9 mg/dL (8.4-10.2); Carbon Dioxide 29 mmol/L (22-30); Chloride 97 mmol/L (98-107); Glucose 75 mg/dL (74-99); Non-African American GFR(CKD) 84 (>60 ml/min/1.73 sqM); Potassium 3.2 mmol/L (3.5-5.1); Sodium 133 mmol/L (137-145)
[2020-02-27 08:25] LABS: Platelet Count 196 k/uL (150-450)
--- NOTE | 2020-02-27 10:06 | XR ---
EXAMINATION TYPE: XR chest 2V DATE OF EXAM: 02/27/2020 COMPARISON: Chest x-ray February 25, 2020. HISTORY: Pneumonia, abnormal x-ray progress study. TECHNIQUE: Frontal and lateral views of the chest are obtained. FINDINGS: Overlying EKG leads are redemonstrated. Background low lung volumes and reticular intersti tial changes with continued worsening left mid lung opacity. Right lung remains clear. No pleural eff usion or pneumothorax seen bilaterally. Cardiac silhouette size stable and upper limits of normal. Os seous structures are intact. IMPRESSION: Continued worsening left mid lung acute infiltrate
[2020-02-27 11:42] LABS: Glucose,Whole Blood 149 mg/dL (75-99)
[2020-02-27] MEDS: SODIUM CHLORIDE 0.9% 1,000 ML IV SCH (11:45)
[2020-02-27] MEDS ORDERED: VANCOMYCIN IV PER PHARMACY 1 EACH MISC MISCELLANE PRN (12:08)
--- NOTE | 2020-02-27 12:08 | P.PN ---
Subjective Progress Note Date: 02/27/20 Principal diagnosis: Altered mentation, fever On 02/24/2020 patient seen in follow-up on general medical surgical floor. He is resting comfortably in bed, he is awake, he is answering some questions, but she feels that she still somewhat confused, but he was able to provide some history, seems to be able to carry on a conversation appropriately. Fever pattern seems to have improved since admission, his T-max in the last 24 hours was 100.7F this morning at 5:00, 3 L of oxygen and his pulse ox is 94-96%, slightly tachycardic with a rate of 106 BPM, no complaints of chest pain, there is no hemoptysis. He remains on cognition of azithromycin and Rocephin. His follow-up chest x-ray today shows new worsening lateral left midlung focal infiltrate and peripheral left basilar acute infiltrate and/or atelectasis. Correlate to exclude possible cold in 19 infection due to peripheral distribution. COVID 19 PCR test is still pending. Denies any fever or malaise, no nausea vomiting or diarrhea. No complex of sore throat. He does have a mild cough. Procalcitonin level is elevated at 0.21 On 02/25/2020 patient is seen in follow-up on the general medical surgical [facility]. He is feeling better today, remains on azithromycin and Rocephin, his Covid 19 PCR is still pending. His follow-up chest x-ray today shows left perihilar infiltrate that seems to be improving. Patient is sitting up in the recliner, in no acute distress, at times seems to be a bit confused, denies any chest discomfort, breathing is comfortable, patient is on 3 L of oxygen with pulse ox of 95%, he still febrile, with a T-max of 102.3F. Today's labs have been reviewed, showing white blood cell count within normal limits of 4.9, hemoglobin is 12.6, d-dimer is 1.3, sodium is 134, Evelyn electrolytes and renal profile were within normal limits, LDH is relatively stable at 1015, CRP is on a rise at 318. Procalcitonin level 0.21, suggesting possibility of underlying bacterial infection likely related to underlying pneumonia. On 02/26/2020 patient seen in follow-up general medical surgical floor. He is awake and alert, in no acute distress, his COVID 19 test came back negative. His currently on 4 L of oxygen with pulse ox of 94%, he still having some low- grade fevers, fever pattern seems to have improved. He remains on a combination of Rocephin and Zithromax, his blood culture has shown no growth, we have not been able to collect a sputum specimen from, but clinically he is feeling better, he sitting up in chair, in no acute distress, patient seems to have improved, he is in some questions and having a conversation with this and seems to be responding appropriately. No new chest x-ray today, no new lab work. Lung sounds revealed a few scattered rales at bilateral bases, no wheezing On 02/27/2020 patient seen in follow-up on general medical surgical floor. He is resting comfortably in bed, he is currently on 3 L of oxygen his pulse ox is 95%, still having some spikes in fever, with T-max in last 24 hours of 101.6F. He is afebrile this morning. No worsening dyspnea, no altered mentation, lung sounds are clear diminished, no rhonchi or wheezing. Blood culture has been negative since admission, his lab work has been reviewed, his white count is 5.0, hemoglobin is 11.9, sodium is 133, potassium 3.2, chloride is 97, the rest of the electrolytes and renal profile were within normal limits. Patient remains on azithromycin and Rocephin, clinically he seems to be improving, were awaiting repeat chest x-ray today. Objective - Vital Signs Vital signs: Vital Signs Temp 98.3 F 02/27/20 07:00 Pulse 89 02/27/20 07:00 Resp 18 02/27/20 09:36 BP 121/72 02/27/20 07:00 Pulse Ox 95 02/27/20 07:00 Intake & Output 02/26/20 02/27/20 02/27/20 18:59 06:59 18:59 Output Total 300 Balance -300 Output: Urine 300 Other: Voiding Method Incontinent Incontinent Incontinent # Voids 3 # Bowel Movements 1 1 - Exam GENERAL EXAM: Alert, pleasant, 79-year-old overweight white male, currently on 3 L of oxygen a pulse ox of 95%, slightly pale, comfortable in no apparent distress. HEAD: Normocephalic/atraumatic. EYES: Normal reaction of pupils, equal size. Conjunctiva pink, sclera white. NOSE: Clear with pink turbinates. THROAT: No erythema or exudates. NECK: No masses, no JVD, no thyroid enlargement, no adenopathy. CHEST: No chest wall deformity. Symmetrical expansion. LUNGS: Equal air entry with no crackles, wheeze, rhonchi or dullness. CVS: Regular rate and rhythm, normal S1 and S2, no gallops, no murmurs, no rubs ABDOMEN: Soft, nontender. No hepatosplenomegaly, normal bowel sounds, no g uarding or rigidity. EXTREMITIES: No clubbing, no edema, no cyanosis, 2+ pulses and upper and lower extremities. MUSCULOSKELETAL: Muscle strength and tone normal. SPINE: No scoliosis or deformity SKIN: No rashes CENTRAL NERVOUS SYSTEM: Alert and oriented -3. No focal deficits, tone is normal in all 4 extremities. PSYCHIATRIC: Alert and oriented -3. Appropriate affect. Intact judgment and insight. - Labs CBC & Chem 7: 02/27/20 07:46 02/27/20 07:46 Labs: Abnormal Lab Results - Last 24 Hours (Table) 02/26/20 02/26/20 02/27/20 Range/Units 16:19 20:23 07:46 RBC 4.07 L (4.30-5.90) m/uL Hgb 11.9 L (13.0-17.5) gm/dL Hct 37.1 L (39.0-53.0) % RDW 16.1 H (11.5-15.5) % Sodium (137-145) mmol/L Potassium (3.5-5.1) mmol/L Chloride (98-107) mmol/L POC Glucose (mg/dL) 261 H 297 H (75-99) mg/dL Calcium (8.4-10.2) mg/dL 02/27/20 02/27/20 Range/Units 07:46 11:41 RBC (4.30-5.90) m/uL Hgb (13.0-17.5) gm/dL Hct (39.0-53.0) % RDW (11.5-15.5) % Sodium 133 L (137-145) mmol/L Potassium 3.2 L (3.5-5.1) mmol/L Chloride 97 L (98-107) mmol/L POC Glucose (mg/dL) 149 H (75-99) mg/dL Calcium 6.9 L (8.4-10.2) mg/dL Microbiology - Last 24 Hours (Table) 02/23/20 09:16 Blood Culture - Preliminary Blood No Growth after 96 hours Assessment and Plan Plan: Assessment: #1. Sepsis, likely related to underlying bilateral pneumonia, patient presented with vascular congestion and mild interstitial changes, however superimposed bilateral pneumonia could not be entirely excluded, in the immunosuppressed host with history of nephrectomy on immunosuppressive medications, including Prograf. Pro-calcitonin level came back elevated at 0.21 #2. Fever, altered mental status present on admission related to the above #3. Ruled out possibility of COVID 19 related pneumonia, COVID 19 PCR negative #4. Acute metabolic encephalopathy related to infection, improved #5. Possible mild fluid overload, acute exacerbation of congestive heart failure, with unknown systolic function #6. 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 History of slow-growing prostate cancer, under surveillance by Dr. Craig #9. Diabetes multistep 2 #10. Hypertension #11. Hyperlipidemia #12. Chronic kidney disease, status post kidney transplant currently on Prograf #13. Hypothyroidism #14. Coronary artery disease status post bypass grafting #15. Anxiety/depression Plan: Patient continues to have intermittent episodes of fever, he remains on a combination of azithromycin and Rocephin, hemodynamically stable, his mentation seems to have improved since admission, no worsening dyspnea, no cough or congestion, but follow-up chest x-ray today shows continued worsening of the left upper lobe infiltrate, we'll switch abiotic coverage to Zosyn and vancomycin, we'll keep azithromycin, will DC the Rocephin, nothing by mouth after midnight for bronchoscopy and BAL tomorrow with Dr. Méndez. I performed a history & physical examination of the patient and discussed their management with my nurse practitioner, Marge Adams. I reviewed the nurse practitioner's note and agree with the documented findings and plan of care. Lung sounds are positive for diminished breath sounds. The findings and the impression was discussed with the patient. I attest to the documentation by the nurse practitioner. Time with Patient: Less than 30
[2020-02-27] MEDS ORDERED: QUEtiapine 25 MG TAB PO PRN (13:13)
[2020-02-27] MEDS: NYSTATIN 100,000 UNIT/ML SUSP 500,000 UNIT/5 ML CUP PO SCH ×3 (14:04→21:40)
[2020-02-27] MEDS: VANCOMYCIN 1,750 MG in SODIUM CHLORIDE 0.9% 500 ML 500 ML IVPB SCH ×2 (14:05→23:46)
[2020-02-27 15:41] LABS: Basophils % (A) 1 %; Eosinophils # (A) 0.1 k/uL (0-0.7); Eosinophils % (A) 2 %; HCT 36.9 % (39.0-53.0); HGB 11.7 gm/dL (13.0-17.5); Hypochromasia Slight; Lymphocytes # (A) 0.4 k/uL (1.0-4.8); Lymphocytes % (A) 9 %; MCH 29.1 pg (25.0-35.0); MCHC 31.7 g/dL (31.0-37.0); MCV 91.9 fL (80.0-100.0); Mean Platelet Volume 8.8; Monocytes # (A) 0.4 k/uL (0-1.0); Monocytes % (A) 8 %; Neutrophils # (A) 3.8 k/uL (1.3-7.7); Neutrophils % (A) 77 %; Platelet Count 202 k/uL (150-450); RBC 4.02 m/uL (4.30-5.90); RDW 15.9 % (11.5-15.5); WBC 4.9 k/uL (3.8-10.6)
[2020-02-27 15:52] LABS: ALT 47 U/L (4-49); AST 104 U/L (17-59); African American GFR (CKD) >90 (>60 ml/min/1.73 sqM); Albumin 2.9 g/dL (3.5-5.0); Alkaline Phosphatase 69 U/L (38-126); Anion Gap 10 mmol/L; Blood Urea Nitrogen 19 mg/dL (9-20); Calcium 7.1 mg/dL (8.4-10.2); Carbon Dioxide 24 mmol/L (22-30); Chloride 96 mmol/L (98-107); Glucose 228 mg/dL (74-99); LDH 1253 U/L (313-618); Non-African American GFR(CKD) 83 (>60 ml/min/1.73 sqM); Sodium 130 mmol/L (137-145); Total Bilirubin 0.9 mg/dL (0.2-1.3); Total Protein 4.9 g/dL (6.3-8.2)
[2020-02-27 16:15] LABS: Potassium 4.3 mmol/L (3.5-5.1)
[2020-02-27 16:24] LABS: D-Dimer 1.17 mg/L FEU (<0.60)
[2020-02-27 16:41] LABS: Glucose,Whole Blood 280 mg/dL (75-99)
--- NOTE | 2020-02-27 16:51 | P.PN ---
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 Patient lives with his and has been more confused recently. Overnight patient became progressively worse. Patient was also febrile and EMS was called. Temperature was 103 F as per EMS. Patient is currently lethargic and sleepy and could not provide any history. Patient and his have been staying at home and following social distance precautions.. Patient does have chronic back pain and supposed to follow-up with orthopedic surgery but could not follow-up due to COVID-19 pandemic. Laboratory data showed WBC 7.2, hemoglobin 13.7, platelets 96 Sodium 132, potassium 3.7, BUN 16 and creatinine 0.94 Calcium 7.6 total bilirubin is 1.8 proBNP 1830 Troponin times one 0.030 EKG showed atrial fibrillation with ventricular rate 111 Chest x-ray showed findings consistent with mild heart failure. Cannot exclude superimposed bilateral pneumonias. Subjective 02/24/2020 This is a pleasant 79 years old male with multiple medical problems who was admitted yesterday for bilateral pneumonia, rule out Covid. Also he has A. fib with RVR with elements of CHF and mds coordinator been consulted. Patient is awake and alert, lying in bed not in respiratory distress, however it looks lethargic. He is fully awake and oriented. No chest pain. Mild cough. No significant back pain this morning I saw her and fever of 100.7 this morning, tachycardic at 106-111, blood pressure is normal at 131/73 and he is saturating 94% on 3 L oxygen He was hypoglycemic this morning at 49, currently corrected at 102, we will lower his home dose of Levemir 25 units at bedtime to 15 units at bedtime No labs this morning Patient is currently on Zithromax and ceftriaxone, also he is on IV Lasix 20 mg twice daily. Pulmonary and cardiology teams on the case 02/25/2020 Patient's Covid 19 test is still pending patient is feeling better. 02/26/2020 patient is still a bit short of breath off oxygen and continue with antiemetics for today possibly of discharge tomorrow to subacute intimidation patient is quite weak and PT and OT evaluate the patient is recommending subacute rehabitation. 02/27/2020 chest x-ray showing worsening pneumonia on the left side.patient is alert oriented and close to 3 for me but the nursing staff is reporting confusion. Constitutional: Denied any fatigue denied any fever. Cardio vascular: denied any chest pain, palpitations Gastrointestinal denied any nausea vomiting Pulmonary: Denied any shortness of breath cough Neurologic denied any new focal deficits All inpatient medications were reviewed and appropriate changes in these medications as dictated in the interval history and assessment and plan. Objective - Vital Signs Vital signs: Vital Signs Temp 99.1 F 02/27/20 14:47 Pulse 102 H 02/27/20 14:47 Resp 20 02/27/20 15:58 BP 131/85 02/27/20 14:47 Pulse Ox 95 02/27/20 14:47 Intake & Output 02/26/20 02/27/20 02/27/20 18:59 06:59 18:59 Intake Total 200 Output Total 300 Balance -300 200 Intake: Oral 200 Output: Urine 300 Other: Voiding Method Incontinent Incontinent Incontinent # Voids 3 2 # Bowel Movements 1 1 - Exam GENERAL: The patient is alert and oriented x3, not in any acute distress. Well developed, well nourished. HEENT: Pupils are round and equally reacting to light. EOMI. No scleral icterus. No conjunctival pallor. Normocephalic, atraumatic. No pharyngeal erythema. No th yromegaly. CARDIOVASCULAR: S1 and S2 present. No murmurs, rubs, or gallops. -PULMONARY: Chest is clear to auscultation, few crepitations bilaterally with decreased breath sounds in the lower zones ABDOMEN: Soft, nontender, nondistended, normoactive bowel sounds. No palpable organomegaly. MUSCULOSKELETAL: No joint swelling or deformity. EXTREMITIES: No cyanosis, clubbing, or pedal edema. NEUROLOGICAL: Gross neurological examination did not reveal any focal deficits. patient does have significant generalized weakness SKIN: No rashes. no petechiae. - Labs CBC & Chem 7: 02/27/20 15:16 02/27/20 15:16 Labs: Abnormal Lab Results - Last 24 Hours (Table) 02/26/20 02/27/20 02/27/20 Range/Units 20:23 07:46 07:46 RBC 4.07 L (4.30-5.90) m/uL Hgb 11.9 L (13.0-17.5) gm/dL Hct 37.1 L (39.0-53.0) % RDW 16.1 H (11.5-15.5) % Lymphocytes # (1.0-4.8) k/uL Fibrinogen (200-500) mg/dL D-Dimer (<0.60) mg/L FEU Sodium 133 L (137-145) mmol/L Potassium 3.2 L (3.5-5.1) mmol/L Chloride 97 L (98-107) mmol/L Glucose (74-99) mg/dL POC Glucose (mg/dL) 297 H (75-99) mg/dL Calcium 6.9 L (8.4-10.2) mg/dL AST (17-59) U/L Lactate Dehydrogenase (313-618) U/L Total Protein (6.3-8.2) g/dL Albumin (3.5-5.0) g/dL 02/27/20 02/27/20 02/27/20 Range/Units 11:41 15:16 15:16 RBC 4.02 L (4.30-5.90) m/uL Hgb 11.7 L (13.0-17.5) gm/dL Hct 36.9 L (39.0-53.0) % RDW 15.9 H (11.5-15.5) % Lymphocytes # 0.4 L (1.0-4.8) k/uL Fibrinogen 594 H (200-500) mg/dL D-Dimer 1.17 H (<0.60) mg/L FEU Sodium (137-145) mmol/L Potassium (3.5-5.1) mmol/L Chloride (98-107) mmol/L Glucose (74-99) mg/dL POC Glucose (mg/dL) 149 H (75-99) mg/dL Calcium (8.4-10.2) mg/dL AST (17-59) U/L Lactate Dehydrogenase (313-618) U/L Total Protein (6.3-8.2) g/dL Albumin (3.5-5.0) g/dL 02/27/20 02/27/20 Range/Units 15:16 16:40 RBC (4.30-5.90) m/uL Hgb (13.0-17.5) gm/dL Hct (39.0-53.0) % RDW (11.5-15.5) % Lymphocytes # (1.0-4.8) k/uL Fibrinogen (200-500) mg/dL D-Dimer (<0.60) mg/L FEU Sodium 130 L (137-145) mmol/L Potassium (3.5-5.1) mmol/L Chloride 96 L (98-107) mmol/L Glucose 228 H (74-99) mg/dL POC Glucose (mg/dL) 280 H (75-99) mg/dL Calcium 7.1 L (8.4-10.2) mg/dL AST 104 H (17-59) U/L Lactate Dehydrogenase 1253 H (313-618) U/L Total Protein 4.9 L (6.3-8.2) g/dL Albumin 2.9 L (3.5-5.0) g/dL Microbiology - Last 24 Hours (Table) 02/23/20 09:16 Blood Culture - Preliminary Blood No Growth after 96 hours Assessment and Plan Plan: Bilateral pneumonias:: bilateral pneumonia significant on the left-sided patient pneumonia as per the chest x-ray is bit worse. 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
[2020-02-27 17:08] LABS: C Reactive Protein 274.5 mg/L (<10.0)
[2020-02-27] MEDS: PIPERACILLIN-TAZOBACTAM 3.375 GM in SODIUM CHLORIDE 0.9% 100 ML IVPB SCH ×2 (17:20→23:41)
[2020-02-27 20:25] LABS: Glucose,Whole Blood 183 mg/dL (75-99)
[2020-02-27] MEDS: ATORVASTATIN 20 MG TAB PO SCH (20:38)
[2020-02-27] MEDS: INSULIN DETEMIR (LEVEMIR) 100 UNIT/ML SYR SQ SCH (20:39)
[2020-02-28 00:36] LABS: Ferritin 523.9 ng/mL (22.0-322.0)
[2020-02-28] MEDS: ELTROMBOPAG OLAMINE 50 MG PO SCH (03:55)
[2020-02-28] MEDS: ELTROMBOPAG OLAMINE 25 MG PO SCH (03:55)
[2020-02-28] MEDS: LEVOTHYROXINE 25 MCG TAB PO SCH (06:15)
[2020-02-28 07:02] LABS: Glucose,Whole Blood 88 mg/dL (75-99)
[2020-02-28] MEDS: ENOXAPARIN 40 MG/0.4 ML SYRINGE SQ SCH (07:25)
[2020-02-28] MEDS: INSULIN ASPART (NovoLOG) 100 UNIT/ML VIAL SQ SCH ×4 (07:25→20:14)
[2020-02-28] MEDS: PIPERACILLIN-TAZOBACTAM 3.375 GM in SODIUM CHLORIDE 0.9% 100 ML IVPB SCH ×3 (07:53→23:25)
[2020-02-28] MEDS: amLODIPine 5 MG TAB PO SCH ×2 (07:54→20:04)
[2020-02-28] MEDS: NYSTATIN 100,000 UNIT/ML SUSP 500,000 UNIT/5 ML CUP PO SCH ×4 (07:54→22:24)
[2020-02-28] MEDS: DULoxetine HCL 60 MG CAPSULE.DR PO SCH (07:54)
[2020-02-28] MEDS: TACROLIMUS 0.5 MG CAP PO SCH ×2 (07:54→20:04)
[2020-02-28] MEDS: AZITHROMYCIN 500 MG TAB PO SCH (07:54)
[2020-02-28] MEDS: METOPROLOL TARTRATE 50 MG TAB PO SCH ×2 (07:54→20:04)
[2020-02-28] MEDS: VIT A,C & E-LUTEIN-MINERALS 1 EACH TAB PO SCH (07:54)
[2020-02-28] MEDS: TAMSULOSIN 0.4 MG CAP.ER.24H PO SCH (07:54)
[2020-02-28] MEDS: FUROSEMIDE 10 MG/ML 2 ML VIAL IV SCH ×2 (07:55→20:04)
[2020-02-28] MEDS: PANTOPRAZOLE 40 MG TABLET PO SCH (07:55)
[2020-02-28 08:03] LABS: HCT 34.1 % (39.0-53.0); HGB 11.1 gm/dL (13.0-17.5); MCH 29.5 pg (25.0-35.0); MCHC 32.6 g/dL (31.0-37.0); MCV 90.6 fL (80.0-100.0); Mean Platelet Volume 8.6; Platelet Count 244 k/uL (150-450); RBC 3.76 m/uL (4.30-5.90); WBC 4.3 k/uL (3.8-10.6)
[2020-02-28] MEDS: FINASTERIDE 5 MG TAB PO SCH (08:05)
[2020-02-28 08:17] LABS: African American GFR (CKD) >90 (>60 ml/min/1.73 sqM); Anion Gap 9 mmol/L; Blood Urea Nitrogen 16 mg/dL (9-20); Calcium 6.7 mg/dL (8.4-10.2); Carbon Dioxide 25 mmol/L (22-30); Chloride 99 mmol/L (98-107); Glucose 85 mg/dL (74-99); Non-African American GFR(CKD) 90 (>60 ml/min/1.73 sqM); Potassium 3.7 mmol/L (3.5-5.1); Sodium 133 mmol/L (137-145)
--- NOTE | 2020-02-28 08:54 | XR ---
EXAMINATION TYPE: XR chest 2V DATE OF EXAM: 02/28/2020 COMPARISON: 02/27/2020 TECHNIQUE: PA and lateral views submitted. HISTORY: Cough possible pneumonia FINDINGS: Bilateral infiltrate greater on the left noted. Heart size enlarged. No pleural effusion or pneumotho rax. Heart size stable. Nodule right costophrenic angle stable. IMPRESSION: 1. Stable bilateral infiltrates greater on the left.
[2020-02-28 11:30] LABS: Glucose,Whole Blood 133 mg/dL (75-99)
[2020-02-28] MEDS: VANCOMYCIN 1,750 MG in SODIUM CHLORIDE 0.9% 500 ML 500 ML IVPB SCH ×2 (11:37→23:25)
--- NOTE | 2020-02-28 12:17 | P.PN ---
Subjective Progress Note Date: 02/28/20 Principal diagnosis: Sepsis, secondary to underlying bilateral pneumonia. The patient is seen today on the 2019 in follow-up on the regular medical floor. He is awake and alert in no acute distress. He was having some confusion yesterday according the nursing staff. He is maintaining good O2 saturations in the mid 90s on 2 L/m per nasal cannula. He is afebrile. Blood culture reveals no growth. White count 4.3. Hemoglobin 11.1. Sodium 133. Potassium 3.7. Creatinine 0.72. He remains on IV diuretics. Remains on antibiotics in form of vancomycin, azithromycin and Zosyn. Today's chest x-ray shows bilateral infiltrates left greater than right. Plan is for bronchoscopy with BAL today. Objective - Vital Signs Vital signs: Vital Signs Temp 98.3 F 02/28/20 06:53 Pulse 91 02/28/20 06:53 Resp 20 02/28/20 06:53 BP 121/66 02/28/20 06:53 Pulse Ox 96 02/28/20 06:53 Intake & Output 02/27/20 02/28/20 02/28/20 18:59 06:59 18:59 Intake Total 200 660 Balance 200 660 Intake: Intake, IV Titration 600 Amount Piperacillin-Tazobactam 3 100 .375 gm In Sodium Chloride 0.9% 100 ml @ 25 mls/hr IVPB Q8HR [place] Rx# :[id number] Vancomycin 1,750 mg In 500 Sodium Chloride 0.9% 500 ml 500 ml @ 167 mls/hr IVPB Q12HR@0000,1200 [place] Rx#:[id number] Oral 200 60 Other: Voiding Method Incontinent Incontinent Incontinent # Voids 2 4 # Bowel Movements 1 1 - Exam GENERAL EXAM: Alert, pleasant, 79-year-old obese male patient, currently on 2 L of oxygen a pulse ox of 96%, slightly pale, comfortable in no apparent distress. HEAD: Normocephalic/atraumatic. EYES: Normal reaction of pupils, equal size. Conjunctiva pink, sclera white. NOSE: Clear with pink turbinates. THROAT: No erythema or exudates. NECK: No masses, no JVD, no thyroid enlargement, no adenopathy. CHEST: No chest wall deformity. Symmetrical expansion. LUNGS: Equal air entry with crackles in the bilateral posterior bases left greater than right CVS: Regular rate and rhythm, normal S1 and S2, no gallops, no murmurs, no rubs ABDOMEN: Soft, nontender. No hepatosplenomegaly, normal bowel sounds, no guarding or rigidity. EXTREMITIES: No clubbing, no edema, no cyanosis, 2+ pulses and upper and lower extremities. MUSCULOSKELETAL: Muscle strength and tone normal. SPINE: No scoliosis or deformity SKIN: No rashes CENTRAL NERVOUS SYSTEM: No focal deficits, tone is normal in all 4 extremities. PSYCHIATRIC: Alert and oriented -3. Appropriate affect. Intact judgment and insight. - Labs CBC & Chem 7: 02/28/20 07:47 02/28/20 07:47 Labs: Abnormal Lab Results - Last 24 Hours (Table) 02/27/20 02/27/20 02/27/20 Range/Units 15:16 15:16 15:16 RBC 4.02 L (4.30-5.90) m/uL Hgb 11.7 L (13.0-17.5) gm/dL Hct 36.9 L (39.0-53.0) % RDW 15.9 H (11.5-15.5) % Lymphocytes # 0.4 L (1.0-4.8) k/uL Fibrinogen 594 H (200-500) mg/dL D-Dimer 1.17 H (<0.60) mg/L FEU Sodium 130 L (137-145) mmol/L Chloride 96 L (98-107) mmol/L Glucose 228 H (74-99) mg/dL POC Glucose (mg/dL) (75-99) mg/dL Calcium 7.1 L (8.4-10.2) mg/dL Ferritin 523.9 H (22.0-322.0) ng/mL AST 104 H (17-59) U/L Lactate Dehydrogenase 1253 H (313-618) U/L C-Reactive Protein 274.5 H (<10.0) mg/L Total Protein 4.9 L (6.3-8.2) g/dL Albumin 2.9 L (3.5-5.0) g/dL 02/27/20 02/27/20 02/28/20 Range/Units 16:40 20:24 07:47 RBC 3.76 L (4.30-5.90) m/uL Hgb 11.1 L (13.0-17.5) gm/dL Hct 34.1 L (39.0-53.0) % RDW 16.0 H (11.5-15.5) % Lymphocytes # (1.0-4.8) k/uL Fibrinogen (200-500) mg/dL D-Dimer (<0.60) mg/L FEU Sodium (137-145) mmol/L Chloride (98-107) mmol/L Glucose (74-99) mg/dL POC Glucose (mg/dL) 280 H 183 H (75-99) mg/dL Calcium (8.4-10.2) mg/dL Ferritin (22.0-322.0) ng/mL AST (17-59) U/L Lactate Dehydrogenase (313-618) U/L C-Reactive Protein (<10.0) mg/L Total Protein (6.3-8.2) g/dL Albumin (3.5-5.0) g/dL 02/28/20 02/28/20 Range/Units 07:47 11:18 RBC (4.30-5.90) m/uL Hgb (13.0-17.5) gm/dL Hct (39.0-53.0) % RDW (11.5-15.5) % Lymphocytes # (1.0-4.8) k/uL Fibrinogen (200-500) mg/dL D-Dimer (<0.60) mg/L FEU Sodium 133 L (137-145) mmol/L Chloride (98-107) mmol/L Glucose (74-99) mg/dL POC Glucose (mg/dL) 133 H (75-99) mg/dL Calcium 6.7 L (8.4-10.2) mg/dL Ferritin (22.0-322.0) ng/mL AST (17-59) U/L Lactate Dehydrogenase (313-618) U/L C-Reactive Protein (<10.0) mg/L Total Protein (6.3-8.2) g/dL Albumin (3.5-5.0) g/dL Microbiology - Last 24 Hours (Table) 02/23/20 09:16 Blood Culture - Preliminary Blood No Growth after 120 hours Assessment and Plan Assessment: #1. Sepsis, likely related to underlying bilateral pneumonia, patient presented with vascular congestion and mild interstitial changes, however superimposed bilateral pneumonia could not be entirely excluded, in the immunosuppressed host with history of nephrectomy on immunosuppressive medications, including Prograf. Pro-calcitonin level came back elevated at 0.21. Plan is for bronchoscopy and BAL today. #2. Fever, altered mental status present on admission related to the above #3. Ruled out possibility of COVID 19 related pneumonia, COVID 19 PCR negative #4. Acute metabolic encephalopathy related to infection, improved #5. Possible mild fluid overload, acute exacerbation of congestive heart failure, with unknown systolic function #6. 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 History of slow-growing prostate cancer, under surveillance by Dr. Craig #9. Diabetes multistep 2 #10. Hypertension #11. Hyperlipidemia #12. Chronic kidney disease, status post kidney transplant currently on Prograf #13. Hypothyroidism #14. Coronary artery disease status post bypass grafting #15. Anxiety/depression Plan: The patient was seen and evaluated by Dr. Méndez Chest x-ray and labs reviewed Continue current treatment plan Bronchoscopy with BAL today Remains on vancomycin, Zosyn and azithromycin We'll continue to follow I, the cosigning physician, performed a history & physical examination of the patient. Lungs sounds with crackles in the bilateral posterior bases left greater than right. Maintaining good O2 saturations in the 90s on 2 L/m per nasal cannula. I discussed the assessment and plan of care with my nurse practitioner, Fatuma Ayala. I attest to the above note as dictated by her.
[2020-02-28 13:11] VITALS: BMI 28.7
[2020-02-28] MEDS ORDERED: MIDAZOLAM 2 MG/2 ML VIAL ONE (14:10)
[2020-02-28] MEDS ORDERED: GLYCOPYRROLATE 0.2 MG/ML 2 ML VIAL ONE (14:10)
[2020-02-28] MEDS ORDERED: PROPOFOL 10 MG/ML 20 ML VIAL IV ONE (14:10)
[2020-02-28] MEDS ORDERED: fentaNYL (PF) 50 MCG/ML 2 ML AMP ONE (14:10)
[2020-02-28] MEDS ORDERED: LIDOCAINE 1% INJ 10MG/ML (20 ML MDV) ONE (14:10)
[2020-02-28] MEDS ORDERED: IV FLUID CONTINUATION 1,000 ML IV ONE (14:10)
[2020-02-28] MEDS ORDERED: KETAMINE 10 MG/ML 20 ML VIAL ONE (14:10)
[2020-02-28] MEDS ORDERED: LIDOCAINE 2% INJ 20 MG/ML INTRATRACH ONE ×2 (14:18→14:29)
[2020-02-28] MEDS ORDERED: FLUCONAZOLE 100 MG TAB PO ONE (14:45)
--- NOTE | 2020-02-28 14:45 | P.PCN ---
Date of Procedure: 02/28/20 Preoperative Diagnosis: Left upper lobe pneumonia Postoperative Diagnosis: 1 left upper lobe pneumonia 2 oropharyngeal candidiasis Procedure(s) Performed: Flexible bronchoscopy, bronchioloalveolar lavage Anesthesia: MAC Surgeon: Bowen Méndez Billing Auditor #1: Marge Adams Estimated Blood Loss (ml): 0 Pathology: none sent Condition: stable Disposition: same day Operative Findings: This procedure was done under conscious sedation and endoscopy suite. The patient a persistent left upper lobe consolidation/pneumonia and the patient has underlying immunosuppression. The procedure including the potential complicated was extended to the patient at length. The procedure was done under conscious sedation. After achieving adequate sedation, the flexible bronchoscope was inserted the right nostril. Examination of posterior oropharynx larynx and epiglottis vocal cords and arytenoids was done. Exhibition of the upper airway showed significant amount of oropharyngeal candidiasis and laryngeal candidiasis where there was constant cheeselike material occupying the upper airway surface circumferentially. The vocal cords were functional and within normal limits. A total of 2 mL of 1% lidocaine was applied to the vocal cords and following that the bronchoscope was advanced into the upper trachea. Exam patient tracheal bronchial tree was done. There was a mild component of tracheobronchomalacia. The trachea was within normal limits. Examination of the bilateral mainstem bronchi were within normal limits. Then the examination of the right upper lobe bronchus, bronchus centimeters in the right lower lobe bronchus was done. Examination of the left side including left upper lobe bronchus, linger segment and left lower lobe bronchus. All of these airways along with various segments were within normal limits. The bronchoscope was ultimately wedge anticipate segment of the lingula and the bronchial alveolar lavage was done. A total of 60 mL of fluid was infused and 25 mL was suctioned back. Therapeutic airway suctioning was done at the completion of the procedure the bronchoscope was removed and the patient was transferred to recovery in stable condition. We'll start the patient on Diflucan and combination to Zosyn and vancomycin. Further adjustment on antibiotics will be done based on the bronchioloalveolar lavage Postop diagnosis 1 left upper lobe pneumonia 2 oropharyngeal candidiasis
[2020-02-28] MEDS: SODIUM CHLORIDE 0.9% 1,000 ML IV SCH (15:11)
--- NOTE | 2020-02-28 15:59 | P.PN ---
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 Patient lives with his and has been more confused recently. Overnight patient became progressively worse. Patient was also febrile and EMS was called. Temperature was 103 F as per EMS. Patient is currently lethargic and sleepy and could not provide any history. Patient and his have been staying at home and following social distance precautions.. Patient does have chronic back pain and supposed to follow-up with orthopedic surgery but could not follow-up due to COVID-19 pandemic. Laboratory data showed WBC 7.2, hemoglobin 13.7, platelets 96 Sodium 132, potassium 3.7, BUN 16 and creatinine 0.94 Calcium 7.6 total bilirubin is 1.8 proBNP 1830 Troponin times one 0.030 EKG showed atrial fibrillation with ventricular rate 111 Chest x-ray showed findings consistent with mild heart failure. Cannot exclude superimposed bilateral pneumonias. 02/24/2020 This is a pleasant 79 years old male with multiple medical problems who was admitted yesterday for bilateral pneumonia, rule out Covid. Also he has A. fib with RVR with elements of CHF and slagger been consulted. Patient is awake and alert, lying in bed not in respiratory distress, however it looks lethargic. He is fully awake and oriented. No chest pain. Mild cough. No significant back pain this morning I saw her and fever of 100.7 this morning, tachycardic at 106-111, blood pressure is normal at 131/73 and he is saturating 94% on 3 L oxygen He was hypoglycemic this morning at 49, currently corrected at 102, we will lower his home dose of Levemir 25 units at bedtime to 15 units at bedtime No labs this morning Patient is currently on Zithromax and ceftriaxone, also he is on IV Lasix 20 mg twice daily. Pulmonary and cardiology teams on the case 02/25/2020 Patient's Covid 19 test is still pending patient is feeling better. 02/26/2020 patient is still a bit short of breath off oxygen and continue with antiemetics for today possibly of discharge tomorrow to subacute intimidation patient is quite weak and PT and OT evaluate the patient is recommending subacute rehabitation. 02/27/2020 chest x-ray showing worsening pneumonia on the left side.patient is alert oriented and close to 3 for me but the nursing staff is reporting confusion. Constitutional: Denied any fatigue denied any fever. Cardio vascular: denied any chest pain, palpitations Gastrointestinal denied any nausea vomiting Pulmonary: Denied any shortness of breath cough Neurologic denied any new focal deficits All inpatient medications were reviewed and appropriate changes in these medications as dictated in the interval history and assessment and plan. 02/28/2020 Patient is currently sitting up in the chair awake, alert and oriented 2-3 with intermittent periods of confusion per nursing staff. Patient was able to have a full conversation and answer questions appropriately with me. Patient is scheduled to undergo bronchoscopy with BAL with pulmonary today. Patient continues to feel weak and lethargic. Patient is currently maintained on a ntibiotic therapy in the form of Permax, vancomycin, And Zosyn. Infectious disease is following. Covid 19 testing was negative. Pro calcitonin is 0.12, current sodium is 133, potassium is 3.7, current creatinine is 0.72, white blood count is 4.3. Will await bronchoscopy report. Objective - Vital Signs Vital signs: Vital Signs Temp 98.3 F 02/28/20 06:53 Pulse 91 02/28/20 06:53 Resp 20 02/28/20 06:53 BP 121/66 02/28/20 06:53 Pulse Ox 96 02/28/20 06:53 Intake & Output 02/27/20 02/28/20 02/28/20 18:59 06:59 18:59 Intake Total 200 660 Balance 200 660 Weight 90.718 kg Intake: Intake, IV Titration 600 Amount Piperacillin-Tazobactam 3 100 .375 gm In Sodium Chloride 0.9% 100 ml @ 25 mls/hr IVPB Q8HR [place] Rx# :[id number] Vancomycin 1,750 mg In 500 Sodium Chloride 0.9% 500 ml 500 ml @ 167 mls/hr IVPB Q12HR@0000,1200 [facility] Rx#:[id number] Oral 200 60 Other: Voiding Method Incontinent Incontinent Incontinent # Voids 2 4 # Bowel Movements 1 1 - Exam GENERAL: The patient is alert and oriented x2-3, not in any acute distress. Well developed, well nourished. HEENT: Pupils are round and equally reacting to light. EOMI. No scleral icterus. No conjunctival pallor. Normocephalic, atraumatic. No pharyngeal erythema. No thyromegaly. CARDIOVASCULAR: S1 and S2 present. No murmurs, rubs, or gallops. -PULMONARY: Diminished breath sounds bilaterally, few crepitations bilaterally with decreased breath sounds in the lower Lobes ABDOMEN: Soft, nontender, nondistended, normoactive bowel sounds. No palpable organomegaly. MUSCULOSKELETAL: No joint swelling or deformity. EXTREMITIES: No cyanosis, clubbing, or pedal edema. NEUROLOGICAL: Gross neurological examination did not reveal any focal deficits. patient does have significant generalized weakness SKIN: No rashes. no petechiae. - Labs CBC & Chem 7: 02/28/20 07:47 02/28/20 07:47 Labs: Abnormal Lab Results - Last 24 Hours (Table) 02/27/20 02/27/20 02/27/20 Range/Units 15:16 15:16 15:16 RBC 4.02 L (4.30-5.90) m/uL Hgb 11.7 L (13.0-17.5) gm/dL Hct 36.9 L (39.0-53.0) % RDW 15.9 H (11.5-15.5) % Lymphocytes # 0.4 L (1.0-4.8) k/uL Fibrinogen 594 H (200-500) mg/dL D-Dimer 1.17 H (<0.60) mg/L FEU Sodium 130 L (137-145) mmol/L Chloride 96 L (98-107) mmol/L Glucose 228 H (74-99) mg/dL POC Glucose (mg/dL) (75-99) mg/dL Calcium 7.1 L (8.4-10.2) mg/dL Ferritin 523.9 H (22.0-322.0) ng/mL AST 104 H (17-59) U/L Lactate Dehydrogenase 1253 H (313-618) U/L C-Reactive Protein 274.5 H (<10.0) mg/L Total Protein 4.9 L (6.3-8.2) g/dL Albumin 2.9 L (3.5-5.0) g/dL Procalcitonin (0.02-0.09) ng/mL 02/27/20 02/27/20 02/28/20 Range/Units 16:40 20:24 07:47 RBC 3.76 L (4.30-5.90) m/uL Hgb 11.1 L (13.0-17.5) gm/dL Hct 34.1 L (39.0-53.0) % RDW 16.0 H (11.5-15.5) % Lymphocytes # (1.0-4.8) k/uL Fibrinogen (200-500) mg/dL D-Dimer (<0.60) mg/L FEU Sodium (137-145) mmol/L Chloride (98-107) mmol/L Glucose (74-99) mg/dL POC Glucose (mg/dL) 280 H 183 H (75-99) mg/dL Calcium (8.4-10.2) mg/dL Ferritin (22.0-322.0) ng/mL AST (17-59) U/L Lactate Dehydrogenase (313-618) U/L C-Reactive Protein (<10.0) mg/L Total Protein (6.3-8.2) g/dL Albumin (3.5-5.0) g/dL Procalcitonin (0.02-0.09) ng/mL 02/28/20 02/28/20 02/28/20 Range/Units 07:47 07:47 11:18 RBC (4.30-5.90) m/uL Hgb (13.0-17.5) gm/dL Hct (39.0-53.0) % RDW (11.5-15.5) % Lymphocytes # (1.0-4.8) k/uL Fibrinogen (200-500) mg/dL D-Dimer (<0.60) mg/L FEU Sodium 133 L (137-145) mmol/L Chloride (98-107) mmol/L Glucose (74-99) mg/dL POC Glucose (mg/dL) 133 H (75-99) mg/dL Calcium 6.7 L (8.4-10.2) mg/dL Ferritin (22.0-322.0) ng/mL AST (17-59) U/L Lactate Dehydrogenase (313-618) U/L C-Reactive Protein (<10.0) mg/L Total Protein (6.3-8.2) g/dL Albumin (3.5-5.0) g/dL Procalcitonin 0.12 H (0.02-0.09) ng/mL Microbiology - Last 24 Hours (Table) 02/23/20 09:16 Blood Culture - Preliminary Blood No Growth after 120 hours Assessment and Plan Assessment: Bilateral pneumonias:: bilateral pneumonia significant on the left-sided patient pneumonia as per the chest x-ray is bit worse. COVID 19 was ruled out Acute hypoxic respiratory failure secondary to pneumonia sepsis secondary to above Acute toxic encephalopathy secondary to infection, improved Possibly of congestive heart failure, Acute on chronic diastolic dysfunction, Not in exacerbation at this time Persistent atrial fibrillation and lipid rate controlled, Noton any anticoagulation because of ITP Diabetes type 2 insulin-dependent Hypovolemic hyponatremia, Improving 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. Plan: Continue current medications, management, and symptomatic treatment. Multiple medical consultations following including infectious disease and pulmonary. Patient is scheduled to undergo bronchoscopy with BAL today. Patient is maintained on IV along with oral antibiotics and will continue at this time. PT/OT evaluating the patient recommending subacute rehab. Case management and social work following and working on possible placement once stabilized disch arge. Further recommendations to follow.
[2020-02-28 16:33] LABS: Glucose,Whole Blood 144 mg/dL (75-99)
[2020-02-28 16:53] LABS: Glucose,Whole Blood 121 mg/dL (75-99)
[2020-02-28] MEDS: ATORVASTATIN 20 MG TAB PO SCH (20:04)
[2020-02-28 20:10] LABS: Glucose,Whole Blood 216 mg/dL (75-99)
[2020-02-28] MEDS: INSULIN DETEMIR (LEVEMIR) 100 UNIT/ML SYR SQ SCH (20:14)
[2020-02-28] MEDS: MELATONIN 3 MG TABLET PO PRN (23:25)
[2020-02-29] MEDS: ACETAMINOPHEN TAB 325 MG TAB PO PRN ×2 (01:53→21:36)
[2020-02-29] MEDS: ELTROMBOPAG OLAMINE 25 MG PO SCH (06:23)
[2020-02-29] MEDS: LEVOTHYROXINE 25 MCG TAB PO SCH (06:23)
[2020-02-29] MEDS: ELTROMBOPAG OLAMINE 50 MG PO SCH (06:24)
[2020-02-29 07:27] LABS: Glucose,Whole Blood 92 mg/dL (75-99)
[2020-02-29] MEDS: INSULIN ASPART (NovoLOG) 100 UNIT/ML VIAL SQ SCH ×4 (07:28→21:26)
[2020-02-29] MEDS: DULoxetine HCL 60 MG CAPSULE.DR PO SCH (09:21)
[2020-02-29] MEDS: FINASTERIDE 5 MG TAB PO SCH (09:21)
[2020-02-29] MEDS: PIPERACILLIN-TAZOBACTAM 3.375 GM in SODIUM CHLORIDE 0.9% 100 ML IVPB SCH ×3 (09:21→23:49)
[2020-02-29] MEDS: FUROSEMIDE 10 MG/ML 2 ML VIAL IV SCH ×2 (09:21→21:26)
[2020-02-29] MEDS: TAMSULOSIN 0.4 MG CAP.ER.24H PO SCH (09:21)
[2020-02-29] MEDS: METOPROLOL TARTRATE 50 MG TAB PO SCH ×2 (09:21→21:26)
[2020-02-29] MEDS: PANTOPRAZOLE 40 MG TABLET PO SCH (09:21)
[2020-02-29] MEDS: AZITHROMYCIN 500 MG TAB PO SCH (09:22)
[2020-02-29] MEDS: TACROLIMUS 0.5 MG CAP PO SCH ×2 (09:22→21:36)
[2020-02-29] MEDS: NYSTATIN 100,000 UNIT/ML SUSP 500,000 UNIT/5 ML CUP PO SCH ×4 (09:22→21:26)
[2020-02-29] MEDS: amLODIPine 5 MG TAB PO SCH ×2 (09:22→21:26)
[2020-02-29] MEDS: ENOXAPARIN 40 MG/0.4 ML SYRINGE SQ SCH (09:22)
[2020-02-29] MEDS: VIT A,C & E-LUTEIN-MINERALS 1 EACH TAB PO SCH (09:23)
[2020-02-29] MEDS ORDERED: VANCOMYCIN TROUGH DUE 1 EACH MISC MISCELLANE ONE (11:00)
[2020-02-29 11:26] LABS: HCT 36.8 % (39.0-53.0); HGB 11.9 gm/dL (13.0-17.5); Hypochromasia Slight; MCH 29.6 pg (25.0-35.0); MCHC 32.4 g/dL (31.0-37.0); MCV 91.4 fL (80.0-100.0); Mean Platelet Volume 8.1; Platelet Count 367 k/uL (150-450); RBC 4.02 m/uL (4.30-5.90); RDW 15.8 % (11.5-15.5); WBC 4.9 k/uL (3.8-10.6)
[2020-02-29 11:36] LABS: African American GFR (CKD) >90 (>60 ml/min/1.73 sqM); Anion Gap 9 mmol/L; Blood Urea Nitrogen 13 mg/dL (9-20); Carbon Dioxide 25 mmol/L (22-30); Chloride 99 mmol/L (98-107); Glucose 214 mg/dL (74-99); Non-African American GFR(CKD) 86 (>60 ml/min/1.73 sqM); Potassium 3.3 mmol/L (3.5-5.1); Sodium 133 mmol/L (137-145)
[2020-02-29] MEDS: FLUCONAZOLE 100 MG TAB PO SCH (12:12)
[2020-02-29 12:18] LABS: Glucose,Whole Blood 250 mg/dL (75-99)
--- NOTE | 2020-02-29 12:20 | P.PN ---
Subjective Progress Note Date: 02/29/20 Principal diagnosis: Sepsis, secondary to underlying bilateral pneumonia. The patient is seen today on the 2019 in follow-up on the regular medical floor. He is awake and alert in no acute distress. He was having some confusion yesterday according the nursing staff. He is maintaining good O2 saturations in the mid 90s on 2 L/m per nasal cannula. He is afebrile. Blood culture reveals no growth. White count 4.3. Hemoglobin 11.1. Sodium 133. Potassium 3.7. Creatinine 0.72. He remains on IV diuretics. Remains on antibiotics in form of vancomycin, azithromycin and Zosyn. Today's chest x-ray shows bilateral infiltrates left greater than right. Plan is for bronchoscopy with BAL today. The patient is seen today 02/29/2020 in follow-up on the regular medical floor. He is awake and alert. Oriented 3. Denies any worsening shortness of breath, cough or congestion. Maintaining good O2 saturation in the 90s on 3 L/m per nasal cannula. Temp 100.2 earlier this a.m. Currently afebrile. He did undergo bronchoscopy with BAL yesterday. Cultures are pending. White count 4.9. Hemoglobin 11.9. Sodium 133. Potassium 3.3. Creatinine 0.81. He remain s on azithromycin, Zosyn, vancomycin. He is on Diflucan. Remains on IV diuretics. Incontinent of urine. Objective - Vital Signs Vital signs: Vital Signs Temp 97.8 F 02/29/20 07:43 Pulse 89 02/29/20 07:43 Resp 18 02/29/20 07:43 BP 138/77 02/29/20 07:43 Pulse Ox 93 L 02/29/20 07:43 Intake & Output 02/28/20 02/29/20 02/29/20 18:59 06:59 18:59 Intake Total 300 960 Output Total 500 Balance 300 460 Weight 90.718 kg Intake: IV 300 Intake, IV Titration 840 Amount IV Fluid Continuation 1, 240 000 ml @ 0 mls/hr IV [facility] Rx#:[id number] Piperacillin-Tazobactam 3 100 .375 gm In Sodium Chloride 0.9% 100 ml @ 25 mls/hr IVPB Q8HR [facility] Rx# :[id number] Vancomycin 1,750 mg In 500 Sodium Chloride 0.9% 500 ml 500 ml @ 167 mls/hr IVPB Q12HR@0000,1200 [facility] Rx#:[id number] Oral 120 Output: Urine 500 Other: Voiding Method Incontinent Diaper Incontinent # Voids 5 3 - Exam GENERAL EXAM: Alert, pleasant, 79-year-old obese male patient, currently on 3 L of oxygen a pulse ox of 93%, slightly pale, comfortable in no apparent distress. HEAD: Normocephalic/atraumatic. EYES: Normal reaction of pupils, equal size. Conjunctiva pink, sclera white. NOSE: Clear with pink turbinates. THROAT: No erythema or exudates. NECK: No masses, no JVD, no thyroid enlargement, no adenopathy. CHEST: No chest wall deformity. Symmetrical expansion. LUNGS: Equal air entry with crackles in the bilateral posterior bases left greater than right CVS: Regular rate and rhythm, normal S1 and S2, no gallops, no murmurs, no rubs ABDOMEN: Soft, nontender. No hepatosplenomegaly, normal bowel sounds, no guarding or rigidity. EXTREMITIES: No clubbing, no edema, no cyanosis, 2+ pulses and upper and lower extremities. MUSCULOSKELETAL: Muscle strength and tone normal. SPINE: No scoliosis or deformity SKIN: No rashes CENTRAL NERVOUS SYSTEM: No focal deficits, tone is normal in all 4 extremities. PSYCHIATRIC: Alert and oriented -3. Appropriate affect. Intact judgment and insight. - Labs CBC & Chem 7: 02/29/20 10:53 02/29/20 10:53 Labs: Abnormal Lab Results - Last 24 Hours (Table) 02/28/20 02/28/20 02/28/20 Range/Units 07:47 16:31 16:51 RBC (4.30-5.90) m/uL Hgb (13.0-17.5) gm/dL Hct (39.0-53.0) % RDW (11.5-15.5) % Sodium (137-145) mmol/L Potassium (3.5-5.1) mmol/L Glucose (74-99) mg/dL POC Glucose (mg/dL) 144 H 121 H (75-99) mg/dL Calcium (8.4-10.2) mg/dL Procalcitonin 0.12 H (0.02-0.09) ng/mL 02/28/20 02/29/20 02/29/20 Range/Units 20:09 10:53 10:53 RBC 4.02 L (4.30-5.90) m/uL Hgb 11.9 L (13.0-17.5) gm/dL Hct 36.8 L (39.0-53.0) % RDW 15.8 H (11.5-15.5) % Sodium 133 L (137-145) mmol/L Potassium 3.3 L (3.5-5.1) mmol/L Glucose 214 H (74-99) mg/dL POC Glucose (mg/dL) 216 H (75-99) mg/dL Calcium 7.0 L (8.4-10.2) mg/dL Procalcitonin (0.02-0.09) ng/mL Microbiology - Last 24 Hours (Table) 02/23/20 09:16 Blood Culture - Final Blood No Growth after 144 hours 02/28/20 14:39 Gram Stain - Preliminary Bronchoalviolar Lavage - Left Bronchial Washings Culture - Preliminary 02/28/20 14:39 Acid Fast Bacilli Culture - Preliminary Lung - Left 02/28/20 14:39 Fungal Culture - Preliminary Lung - Left Assessment and Plan Assessment: #1. Sepsis, likely related to underlying bilateral pneumonia, patient presented with vascular congestion and mild interstitial changes, however superimposed bilateral pneumonia could not be entirely excluded, in the immunosuppressed host with history of nephrectomy on immunosuppressive medications, including Prograf. Pro-calcitonin level came back elevated at 0.21. Bronchoscopy with BAL performed 02/29/2028. Cultures pending. #2. Fever, altered mental status present on admission related to the above #3. Ruled out possibility of COVID 19 related pneumonia, COVID 19 PCR negative #4. Acute metabolic encephalopathy related to infection, improved #5. Possible mild fluid overload, acute exacerbation of congestive heart failure, with unknown systolic function #6. History of atrial fibrillation, not on anticoagulation on a regular basis l ikely related to underlying history of ITP on Promacta #7. 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 History of slow-growing prostate cancer, under surveillance by Dr. Craig #9. Diabetes multistep 2 #10. Hypertension #11. Hyperlipidemia #12. Chronic kidney disease, status post kidney transplant currently on Prograf #13. Hypothyroidism #14. Coronary artery disease status post bypass grafting #15. Anxiety/depression Plan: The patient was seen and evaluated by Dr. Méndez Bronchoscopy with BAL performed yesterday, cultures pending Remains on vancomycin, Zosyn and azithromycin We'll continue to follow I, the cosigning physician, performed a history & physical examination of the patient. Lungs sounds with crackles in the bilateral posterior bases left greater than right. Maintaining good O2 saturations in the 90s on 3 L/m per nasal cannula. I discussed the assessment and plan of care with my nurse practitioner, Fatuma Ayala. I attest to the above note as dictated by her.
[2020-02-29] MEDS: VANCOMYCIN 1,750 MG in SODIUM CHLORIDE 0.9% 500 ML 500 ML IVPB SCH (12:22)
[2020-02-29] MEDS ORDERED: Potassium Replacement Protocol 1 EACH MISC MISCELLANE PRN (14:55)
--- NOTE | 2020-02-29 15:39 | P.PN ---
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 Patient lives with his and has been more confused recently. Overnight patient became progressively worse. Patient was also febrile and EMS was called. Temperature was 103 F as per EMS. Patient is currently lethargic and sleepy and could not provide any history. Patient and his have been staying at home and following social distance precautions.. Patient does have chronic back pain and supposed to follow-up with orthopedic surgery but could not follow-up due to COVID-19 pandemic. Laboratory data showed WBC 7.2, hemoglobin 13.7, platelets 96 Sodium 132, potassium 3.7, BUN 16 and creatinine 0.94 Calcium 7.6 total bilirubin is 1.8 proBNP 1830 Troponin times one 0.030 EKG showed atrial fibrillation with ventricular rate 111 Chest x-ray showed findings consistent with mild heart failure. Cannot exclude superimposed bilateral pneumonias. Subjective 02/24/2020 This is a pleasant 79 years old male with multiple medical problems who was admitted yesterday for bilateral pneumonia, rule out Covid. Also he has A. fib with RVR with elements of CHF and analysis manager been consulted. Patient is awake and alert, lying in bed not in respiratory distress, however it looks lethargic. He is fully awake and oriented. No chest pain. Mild cough. No significant back pain this morning I saw her and fever of 100.7 this morning, tachycardic at 106-111, blood pressure is normal at 131/73 and he is saturating 94% on 3 L oxygen He was hypoglycemic this morning at 49, currently corrected at 102, we will lower his home dose of Levemir 25 units at bedtime to 15 units at bedtime No labs this morning Patient is currently on Zithromax and ceftriaxone, also he is on IV Lasix 20 mg twice daily. Pulmonary and cardiology teams on the case 02/25/2020 Patient's Covid 19 test is still pending patient is feeling better. 02/26/2020 patient is still a bit short of breath off oxygen and continue with antiemetics for today possibly of discharge tomorrow to subacute intimidation patient is quite weak and PT and OT evaluate the patient is recommending subacute rehabitation. 02/27/2020 chest x-ray showing worsening pneumonia on the left side.patient is alert oriented and close to 3 for me but the nursing staff is reporting confusion. 02/29/2020 Because of worsening of his left-sided infiltrate patient underwent bronchoscopy which showed left upper lobe pneumonia. Patient is presently on IV diuretics because of fluid overload possibility and also on broad-spectrum antibiotics vancomycin and Zosyn. BAL lavage cultures were ordered and cultures are pending at this time. Patient confusion improved significantly. Constitutional: Denied any fatigue denied any fever. Cardio vascular: denied any chest pain, palpitations Gastrointestinal denied any nausea vomiting Pulmonary: Denied any shortness of breath cough Neurologic denied any new focal deficits All inpatient medications were reviewed and appropriate changes in these medications as dictated in the interval history and assessment and plan. Objective - Vital Signs Vital signs: Vital Signs Temp 97.8 F 02/29/20 07:43 Pulse 89 02/29/20 07:43 Resp 18 02/29/20 07:43 BP 138/77 02/29/20 07:43 Pulse Ox 93 L 02/29/20 07:43 Intake & Output 02/28/20 02/29/20 02/29/20 18:59 06:59 18:59 Intake Total 300 960 Output Total 500 Balance 300 460 Weight 90.718 kg Intake: IV 300 Intake, IV Titration 840 Amount IV Fluid Continuation 1, 240 000 ml @ 0 mls/hr IV .[facility] Rx#:[id number] Piperacillin-Tazobactam 3 100 .375 gm In Sodium Chloride 0.9% 100 ml @ 25 mls/hr IVPB Q8HR [facility] Rx# :[id number] Vancomycin 1,750 mg In 500 Sodium Chloride 0.9% 500 ml 500 ml @ 167 mls/hr IVPB Q12HR@0000,1200 [facility] Rx#:[id number] Oral 120 Output: Urine 500 Other: Voiding Method Incontinent Diaper Incontinent # Voids 5 3 - Exam GENERAL: The patient is alert and oriented x3, not in any acute distress. Well developed, well nourished. HEENT: Pupils are round and equally reacting to light. EOMI. No scleral icterus. No conjunctival pallor. Normocephalic, atraumatic. No pharyngeal erythema. No thyromegaly. CARDIOVASCULAR: S1 and S2 present. No murmurs, rubs, or gallops. -PULMONARY: Chest is clear to auscultation, few crepitations bilaterally with decreased breath sounds in the lower zones ABDOMEN: Soft, nontender, nondistended, normoactive bowel sounds. No palpable organomegaly. MUSCULOSKELETAL: No joint swelling or deformity. EXTREMITIES: No cyanosis, clubbing, or pedal edema. NEUROLOGICAL: Gross neurological examination did not reveal any focal deficits. patient does have significant generalized weakness SKIN: No rashes. no petechiae. - Labs CBC & Chem 7: 02/29/20 10:53 02/29/20 10:53 Labs: Abnormal Lab Results - Last 24 Hours (Table) 02/28/20 02/28/20 02/28/20 Range/Units 16:31 16:51 20:09 RBC (4.30-5.90) m/uL Hgb (13.0-17.5) gm/dL Hct (39.0-53.0) % RDW (11.5-15.5) % Sodium (137-145) mmol/L Potassium (3.5-5.1) mmol/L Glucose (74-99) mg/dL POC Glucose (mg/dL) 144 H 121 H 216 H (75-99) mg/dL Calcium (8.4-10.2) mg/dL 02/29/20 02/29/20 02/29/20 Range/Units 10:53 10:53 12:13 RBC 4.02 L (4.30-5.90) m/uL Hgb 11.9 L (13.0-17.5) gm/dL Hct 36.8 L (39.0-53.0) % RDW 15.8 H (11.5-15.5) % Sodium 133 L (137-145) mmol/L Potassium 3.3 L (3.5-5.1) mmol/L Glucose 214 H (74-99) mg/dL POC Glucose (mg/dL) 250 H (75-99) mg/dL Calcium 7.0 L (8.4-10.2) mg/dL Microbiology - Last 24 Hours (Table) 02/23/20 09:16 Blood Culture - Final Blood No Growth after 144 hours 02/28/20 14:39 Gram Stain - Preliminary Bronchoalviolar Lavage - Left Bronchial Washings Culture - Preliminary 02/28/20 14:39 Acid Fast Bacilli Culture - Preliminary Lung - Left 02/28/20 14:39 Fungal Culture - Preliminary Lung - Left Assessment and Plan Plan: Bilateral pneumonias:: bilateral pneumonia significant on the left-sided patient pneumonia as per the chest x-ray is bit worse. COVID 19 was ruled out patient is status post bronchoscopy and patient has extensive pneumonia in the right upper lobe patient's antibiotics was more broadened to Zosyn and vancomycin while awaiting cultures from BAL -Acute hypoxic respiratory failure secondary to pneumonia sepsis secondary to above -Mild pulmonary edema secondary to IV fluids patient is receiving Lasix at this time COVID-19 virus infection rule out Acute toxic encephalopathy secondary to infection, improved Possibly of congestive heart failurepatient had normal systolic function probably had diastolic dysfunction without any acute exacerbation Persistent atrial fibrillation and lipid rate controlled on any anticoagulation because of ITP Diabetes type 2 insulin-dependent Hypovolemic hyponatremia 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
[2020-02-29] MEDS: POTASSIUM CHLORIDE ER 20 MEQ TAB.ER PO SCH ×2 (16:02→17:07)
[2020-02-29] MEDS: SODIUM CHLORIDE 0.9% 1,000 ML IV SCH (16:04)
[2020-02-29 16:58] LABS: Glucose,Whole Blood 146 mg/dL (75-99)
--- NOTE | 2020-02-29 17:36 | XR ---
EXAMINATION TYPE: XR chest 1V portable DATE OF EXAM: 02/29/2020 COMPARISON: Yesterday HISTORY: Short of breath TECHNIQUE: FINDINGS: There is some patchy consolidation in the left mid and upper lung field. The right lung is fairly clear. There is no definite heart failure. There are chest leads. IMPRESSION: Left side pneumonic airspace patchy consolidation is probably improved slightly compared to yesterday.
[2020-02-29 20:11] LABS: Glucose,Whole Blood 251 mg/dL (75-99)
[2020-02-29] MEDS: INSULIN DETEMIR (LEVEMIR) 100 UNIT/ML SYR SQ SCH (21:26)
[2020-02-29] MEDS: ATORVASTATIN 20 MG TAB PO SCH (21:26)
[2020-02-29] MEDS: MELATONIN 3 MG TABLET PO PRN (21:36)
[2020-02-29] MEDS: VANCOMYCIN 1,500 MG in SODIUM CHLORIDE 0.9% 250 ML IVPB SCH (23:52)
[2020-03-01] MEDS: ELTROMBOPAG OLAMINE 25 MG PO SCH (05:01)
[2020-03-01] MEDS: ELTROMBOPAG OLAMINE 50 MG PO SCH (05:01)
[2020-03-01] MEDS: LEVOTHYROXINE 25 MCG TAB PO SCH (06:07)
[2020-03-01] MEDS: INSULIN ASPART (NovoLOG) 100 UNIT/ML VIAL SQ SCH ×4 (07:26→20:56)
[2020-03-01 07:41] LABS: African American GFR (CKD) >90 (>60 ml/min/1.73 sqM); Anion Gap 4 mmol/L; Blood Urea Nitrogen 11 mg/dL (9-20); Carbon Dioxide 29 mmol/L (22-30); Chloride 104 mmol/L (98-107); Glucose 51 mg/dL (74-99); HCT 34.4 % (39.0-53.0); Hypochromasia Slight; MCH 29.1 pg (25.0-35.0); MCV 90.9 fL (80.0-100.0); Mean Platelet Volume 8.1; Non-African American GFR(CKD) 87 (>60 ml/min/1.73 sqM); Platelet Count 365 k/uL (150-450); Potassium 3.4 mmol/L (3.5-5.1); RBC 3.78 m/uL (4.30-5.90); RDW 15.8 % (11.5-15.5); Sodium 137 mmol/L (137-145)
[2020-03-01 08:00] LABS: Glucose,Whole Blood 55 mg/dL (75-99)
[2020-03-01 08:00] LABS: Glucose,Whole Blood 105 mg/dL (75-99)
[2020-03-01 08:00] LABS: Glucose,Whole Blood 67 mg/dL (75-99)
[2020-03-01] MEDS: PIPERACILLIN-TAZOBACTAM 3.375 GM in SODIUM CHLORIDE 0.9% 100 ML IVPB SCH ×3 (09:04→22:57)
[2020-03-01] MEDS: METOPROLOL TARTRATE 50 MG TAB PO SCH ×2 (09:05→20:56)
[2020-03-01] MEDS: PANTOPRAZOLE 40 MG TABLET PO SCH (09:05)
[2020-03-01] MEDS: TAMSULOSIN 0.4 MG CAP.ER.24H PO SCH (09:05)
[2020-03-01] MEDS: FUROSEMIDE 10 MG/ML 2 ML VIAL IV SCH ×2 (09:05→20:56)
[2020-03-01] MEDS: amLODIPine 5 MG TAB PO SCH ×2 (09:05→20:56)
[2020-03-01] MEDS: FINASTERIDE 5 MG TAB PO SCH (09:05)
[2020-03-01] MEDS: ENOXAPARIN 40 MG/0.4 ML SYRINGE SQ SCH (09:05)
[2020-03-01] MEDS: DULoxetine HCL 60 MG CAPSULE.DR PO SCH (09:05)
[2020-03-01] MEDS: VIT A,C & E-LUTEIN-MINERALS 1 EACH TAB PO SCH (09:07)
[2020-03-01] MEDS: AZITHROMYCIN 500 MG TAB PO SCH (09:07)
[2020-03-01] MEDS: NYSTATIN 100,000 UNIT/ML SUSP 500,000 UNIT/5 ML CUP PO SCH ×4 (09:07→20:56)
[2020-03-01] MEDS: TACROLIMUS 0.5 MG CAP PO SCH ×2 (09:07→20:56)
[2020-03-01] MEDS ORDERED: Potassium Replacement Protocol 1 EACH MISC MISCELLANE PRN (10:00)
[2020-03-01] MEDS: POTASSIUM CHLORIDE ER 20 MEQ TAB.ER PO SCH ×2 (10:25→11:22)
[2020-03-01] MEDS: FLUCONAZOLE 100 MG TAB PO SCH (11:22)
[2020-03-01] MEDS: VANCOMYCIN 1,500 MG in SODIUM CHLORIDE 0.9% 250 ML IVPB SCH ×2 (11:24→22:56)
[2020-03-01 12:02] LABS: Glucose,Whole Blood 146 mg/dL (75-99)
--- NOTE | 2020-03-01 12:04 | P.PN ---
Subjective Progress Note Date: 03/01/20 Principal diagnosis: Sepsis, secondary to underlying bilateral pneumonia. The patient is seen today on the 2019 in follow-up on the regular medical floor. He is awake and alert in no acute distress. He was having some confusion yesterday according the nursing staff. He is maintaining good O2 saturations in the mid 90s on 2 L/m per nasal cannula. He is afebrile. Blood culture reveals no growth. White count 4.3. Hemoglobin 11.1. Sodium 133. Potassium 3.7. Creatinine 0.72. He remains on IV diuretics. Remains on antibiotics in form of vancomycin, azithromycin and Zosyn. Today's chest x-ray shows bilateral infiltrates left greater than right. Plan is for bronchoscopy with BAL today. The patient is seen today 02/29/2020 in follow-up on the regular medical floor. He is awake and alert. Oriented 3. Denies any worsening shortness of breath, cough or congestion. Maintaining good O2 saturation in the 90s on 3 L/m per nasal cannula. Temp 100.2 earlier this a.m. Currently afebrile. He did undergo bronchoscopy with BAL yesterday. Cultures are pending. White count 4.9. Hemoglobin 11.9. Sodium 133. Potassium 3.3. Creatinine 0.81. He remain s on azithromycin, Zosyn, vancomycin. He is on Diflucan. Remains on IV diuretics. Incontinent of urine. Patient is seen today 03/01/2020 in follow-up on the regular medical floor. He is currently resting comfortably in bed. He denies any worsening shortness of breath. He has a loose nonproductive cough. No fever chills. Bronchoscopy BAL cultures pending. White count 5.0. Hemoglobin 11.0. Sodium 137. Potassium 3.4. Creatinine 0.78. He remains on vancomycin, azithromycin and Zosyn. He remains on Diflucan. Continued on IV diuretics. Chest x-ray reveals continued left-sided air space patchy consolidations slightly improved compared to previous. Objective - Vital Signs Vital signs: Vital Signs Temp 98.0 F 03/01/20 07:00 Pulse 83 03/01/20 07:00 Resp 18 03/01/20 10:27 BP 126/78 03/01/20 07:00 Pulse Ox 93 L 03/01/20 10:27 Intake & Output 02/29/20 03/01/20 03/01/20 18:59 06:59 18:59 Intake Total 540 Output Total 1400 Balance 540 -1400 Intake: Oral 540 Output: Urine 1400 Other: Voiding Method Diaper Diaper Incontinent Incontinent # Voids 5 1 # Bowel Movements 1 - Exam GENERAL EXAM: Alert, pleasant, 79-year-old obese male patient, currently on 3 L of oxygen a pulse ox of 94%, slightly pale, comfortable in no apparent distress. HEAD: Normocephalic/atraumatic. EYES: Normal reaction of pupils, equal size. Conjunctiva pink, sclera white. NOSE: Clear with pink turbinates. THROAT: No erythema or exudates. NECK: No masses, no JVD, no thyroid enlargement, no adenopathy. CHEST: No chest wall deformity. Symmetrical expansion. LUNGS: Equal air entry with crackles in the bilateral posterior bases left greater than right CVS: Regular rate and rhythm, normal S1 and S2, no gallops, no murmurs, no rubs ABDOMEN: Soft, nontender. No hepatosplenomegaly, normal bowel sounds, no guarding or rigidity. EXTREMITIES: No clubbing, no edema, no cyanosis, 2+ pulses and upper and lower extremities. MUSCULOSKELETAL: Muscle strength and tone normal. SPINE: No scoliosis or deformity SKIN: No rashes CENTRAL NERVOUS SYSTEM: No focal deficits, tone is normal in all 4 extremities. PSYCHIATRIC: Alert and oriented -3. Appropriate affect. Intact judgment and insight. - Labs CBC & Chem 7: 03/01/20 07:08 03/01/20 07:08 Labs: Abnormal Lab Results - Last 24 Hours (Table) 02/29/20 02/29/20 02/29/20 Range/Units 10:53 12:13 16:51 RBC (4.30-5.90) m/uL Hgb (13.0-17.5) gm/dL Hct (39.0-53.0) % RDW (11.5-15.5) % Potassium (3.5-5.1) mmol/L Glucose (74-99) mg/dL POC Glucose (mg/dL) 250 H 146 H (75-99) mg/dL Calcium (8.4-10.2) mg/dL Procalcitonin 0.12 H (0.02-0.09) ng/mL 02/29/20 02/29/20 02/29/20 Range/Units 17:03 19:22 20:09 RBC (4.30-5.90) m/uL Hgb (13.0-17.5) gm/dL Hct (39.0-53.0) % RDW (11.5-15.5) % Potassium 3.3 L 3.3 L (3.5-5.1) mmol/L Glucose (74-99) mg/dL POC Glucose (mg/dL) 251 H (75-99) mg/dL Calcium (8.4-10.2) mg/dL Procalcitonin (0.02-0.09) ng/mL 03/01/20 03/01/20 03/01/20 Range/Units 07:08 07:08 07:25 RBC 3.78 L (4.30-5.90) m/uL Hgb 11.0 L (13.0-17.5) gm/dL Hct 34.4 L (39.0-53.0) % RDW 15.8 H (11.5-15.5) % Potassium 3.4 L (3.5-5.1) mmol/L Glucose 51 L (74-99) mg/dL POC Glucose (mg/dL) 55 L (75-99) mg/dL Calcium 7.0 L (8.4-10.2) mg/dL Procalcitonin (0.02-0.09) ng/mL 03/01/20 03/01/20 Range/Units 07:38 07:56 RBC (4.30-5.90) m/uL Hgb (13.0-17.5) gm/dL Hct (39.0-53.0) % RDW (11.5-15.5) % Potassium (3.5-5.1) mmol/L Glucose (74-99) mg/dL POC Glucose (mg/dL) 67 L 105 H (75-99) mg/dL Calcium (8.4-10.2) mg/dL Procalcitonin (0.02-0.09) ng/mL Microbiology - Last 24 Hours (Table) 02/28/20 14:39 Acid Fast Bacilli Smear - Final Lung - Left Acid Fast Bacilli Culture - Preliminary 02/23/20 09:16 Blood Culture - Final Blood No Growth after 144 hours Assessment and Plan Assessment: #1. Sepsis, likely related to underlying bilateral pneumonia, patient presented with vascular congestion and mild interstitial changes, however superimposed bilateral pneumonia could not be entirely excluded, in the immunosuppressed host with history of nephrectomy on immunosuppressive medications, including Prograf. Pro-calcitonin level came back elevated at 0.21. Bronchoscopy with BAL performed 02/29/2020. Cultures pending. #2. Fever, altered mental status present on admission related to the above #3. Ruled out possibility of COVID 19 related pneumonia, COVID 19 PCR negative #4. Acute metabolic encephalopathy related to infection, improved #5. Possible mild fluid overload, acute exacerbation of congestive heart failure, with unknown systolic function #6. 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 History of slow-growing prostate cancer, under surveillance by Dr. Craig #9. Diabetes multistep 2 #10. Hypertension #11. Hyperlipidemia #12. Chronic kidney disease, status post kidney transplant currently on Prograf #13. Hypothyroidism #14. Coronary artery disease status post bypass grafting #15. Anxiety/depression Plan: The patient was seen and evaluated by Dr. Méndez Chest x-ray and labs reviewed Remains on vancomycin, Zosyn and azithromycin Bronchoscopy with BAL performed, cultures pending We'll continue to follow I, the cosigning physician, performed a history & physical examination of the patient. Lungs sounds with crackles in the bilateral posterior bases left greater than right. Maintaining good O2 saturations in the 90s on 3 L/m per nasal cannula. I discussed the assessment and plan of care with my nurse practitioner, Fatuma Ayala. I attest to the above note as dictated by her.
--- NOTE | 2020-03-01 14:35 | XR ---
EXAMINATION TYPE: XR chest 2V DATE OF EXAM: 03/01/2020 CLINICAL HISTORY: Pneumonia TECHNIQUE: Frontal and lateral views of the chest are obtained. COMPARISON: 02/29/2028 chest radiograph FINDINGS: Left mid to upper lung patchy focal airspace opacity appears similar to 02/29/2020 compariso n. There is increased patchy opacity of the right perihilar lung. No pleural effusion. No pneumothora x. The cardiomediastinal silhouette is within normal limits for size. IMPRESSION: Left-sided focal airspace opacity unchanged versus 02/29/2020. Increased patchy opacity over the right perihilar lung may represent developing consolidation versus pulmonary vascular congestion.
--- NOTE | 2020-03-01 14:48 | P.PN ---
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 Patient lives with his and has been more confused recently. Overnight patient became progressively worse. Patient was also febrile and EMS was called. Temperature was 103 F as per EMS. Patient is currently lethargic and sleepy and could not provide any history. Patient and his have been staying at home and following social distance precautions.. Patient does have chronic back pain and supposed to follow-up with orthopedic surgery but could not follow-up due to COVID-19 pandemic. Laboratory data showed WBC 7.2, hemoglobin 13.7, platelets 96 Sodium 132, potassium 3.7, BUN 16 and creatinine 0.94 Calcium 7.6 total bilirubin is 1.8 proBNP 1830 Troponin times one 0.030 EKG showed atrial fibrillation with ventricular rate 111 Chest x-ray showed findings consistent with mild heart failure. Cannot exclude superimposed bilateral pneumonias. Subjective 02/24/2020 This is a pleasant 79 years old male with multiple medical problems who was admitted yesterday for bilateral pneumonia, rule out Covid. Also he has A. fib with RVR with elements of CHF and hot blast worker been consulted. Patient is awake and alert, lying in bed not in respiratory distress, however it looks lethargic. He is fully awake and oriented. No chest pain. Mild cough. No significant back pain this morning I saw her and fever of 100.7 this morning, tachycardic at 106-111, blood pressure is normal at 131/73 and he is saturating 94% on 3 L oxygen He was hypoglycemic this morning at 49, currently corrected at 102, we will lower his home dose of Levemir 25 units at bedtime to 15 units at bedtime No labs this morning Patient is currently on Zithromax and ceftriaxone, also he is on IV Lasix 20 mg twice daily. Pulmonary and cardiology teams on the case 02/25/2020 Patient's Covid 19 test is still pending patient is feeling better. 02/26/2020 patient is still a bit short of breath off oxygen and continue with antiemetics for today possibly of discharge tomorrow to subacute intimidation patient is quite weak and PT and OT evaluate the patient is recommending subacute rehabitation. 02/27/2020 chest x-ray showing worsening pneumonia on the left side.patient is alert oriented and close to 3 for me but the nursing staff is reporting confusion. 02/29/2020 Because of worsening of his left-sided infiltrate patient underwent bronchoscopy which showed left upper lobe pneumonia. Patient is presently on IV diuretics because of fluid overload possibility and also on broad-spectrum antibiotics vancomycin and Zosyn. BAL lavage cultures were ordered and cultures are pending at this time. Patient confusion improved significantly. 03/01/2020 Patient is clinically doing well is off oxygen. Patient to probably can be discharged to subacute rehabilitation tomorrow. BAL cultures are still pending I'm not expecting them to be positive as patient was already on antibiotics for few days before bronchoscopy Constitutional: Denied any fatigue denied any fever. Cardio vascular: denied any chest pain, palpitations Gastrointestinal denied any nausea vomiting Pulmonary: Denied any shortness of breath cough Neurologic denied any new focal deficits All inpatient medications were reviewed and appropriate changes in these medications as dictated in the interval history and assessment and plan. Objective - Vital Signs Vital signs: Vital Signs Temp 98.0 F 03/01/20 07:00 Pulse 83 03/01/20 07:00 Resp 18 03/01/20 10:27 BP 126/78 03/01/20 07:00 Pulse Ox 93 L 03/01/20 10:27 Intake & Output 02/29/20 03/01/20 03/01/20 18:59 06:59 18:59 Intake Total 540 Output Total 1400 Balance 540 -1400 Intake: Oral 540 Output: Urine 1400 Other: Voiding Method Diaper Diaper Incontinent Incontinent # Voids 5 1 # Bowel Movements 1 - Exam GENERAL: The patient is alert and oriented x3, not in any acute distress. Well developed, well nourished. HEENT: Pupils are round and equally reacting to light. EOMI. No scleral icterus. No conjunctival pallor. Normocephalic, atraumatic. No pharyngeal erythema. No thyromegaly. CARDIOVASCULAR: S1 and S2 present. No murmurs, rubs, or gallops. -PULMONARY: Chest is clear to auscultation, few crepitations bilaterally with decreased breath sounds in the lower zones ABDOMEN: Soft, nontender, nondistended, normoactive bowel sounds. No palpable organomegaly. MUSCULOSKELETAL: No joint swelling or deformity. EXTREMITIES: No cyanosis, clubbing, or pedal edema. NEUROLOGICAL: Gross neurological examination did not reveal any focal deficits. patient does have significant generalized weakness SKIN: No rashes. no petechiae. - Labs CBC & Chem 7: 03/01/20 07:08 03/01/20 07:08 Labs: Abnormal Lab Results - Last 24 Hours (Table) 02/29/20 02/29/20 02/29/20 Range/Units 10:53 16:51 17:03 RBC (4.30-5.90) m/uL Hgb (13.0-17.5) gm/dL Hct (39.0-53.0) % RDW (11.5-15.5) % Potassium 3.3 L (3.5-5.1) mmol/L Glucose (74-99) mg/dL POC Glucose (mg/dL) 146 H (75-99) mg/dL Calcium (8.4-10.2) mg/dL Procalcitonin 0.12 H (0.02-0.09) ng/mL 02/29/20 02/29/20 03/01/20 Range/Units 19:22 20:09 07:08 RBC 3.78 L (4.30-5.90) m/uL Hgb 11.0 L (13.0-17.5) gm/dL Hct 34.4 L (39.0-53.0) % RDW 15.8 H (11.5-15.5) % Potassium 3.3 L (3.5-5.1) mmol/L Glucose (74-99) mg/dL POC Glucose (mg/dL) 251 H (75-99) mg/dL Calcium (8.4-10.2) mg/dL Procalcitonin (0.02-0.09) ng/mL 03/01/20 03/01/20 03/01/20 Range/Units 07:08 07:25 07:38 RBC (4.30-5.90) m/uL Hgb (13.0-17.5) gm/dL Hct (39.0-53.0) % RDW (11.5-15.5) % Potassium 3.4 L (3.5-5.1) mmol/L Glucose 51 L (74-99) mg/dL POC Glucose (mg/dL) 55 L 67 L (75-99) mg/dL Calcium 7.0 L (8.4-10.2) mg/dL Procalcitonin (0.02-0.09) ng/mL 03/01/20 03/01/20 Range/Units 07:56 11:58 RBC (4.30-5.90) m/uL Hgb (13.0-17.5) gm/dL Hct (39.0-53.0) % RDW (11.5-15.5) % Potassium (3.5-5.1) mmol/L Glucose (74-99) mg/dL POC Glucose (mg/dL) 105 H 146 H (75-99) mg/dL Calcium (8.4-10.2) mg/dL Procalcitonin (0.02-0.09) ng/mL Microbiology - Last 24 Hours (Table) 02/28/20 14:39 Gram Stain - Preliminary Bronchoalviolar Lavage - Left Bronchial Washings Culture - Preliminary 02/28/20 14:39 Acid Fast Bacilli Smear - Final Lung - Left Acid Fast Bacilli Culture - Preliminary 02/23/20 09:16 Blood Culture - Final Blood No Growth after 144 hours Assessment and Plan Plan: Bilateral pneumonias:: bilateral pneumonia significant on the left-sided patient pneumonia as per the chest x-ray is bit worse. COVID 19 was ruled out patient is status post bronchoscopy and patient has extensive pneumonia in the right upper lobe patient's antibiotics was more broadened to Zosyn and vancomycin while awaiting cultures from BAL -Acute hypoxic respiratory failure secondary to pneumonia sepsis secondary to above -Mild pulmonary edema secondary to IV fluids patient is receiving Lasix at this time COVID-19 virus infection rule out Acute toxic encephalopathy secondary to infection, improved Possibly of congestive heart failurepatient had normal systolic function probably had diastolic dysfunction without any acute exacerbation Persistent atrial fibrillation and lipid rate controlled on any anticoagulation because of ITP Diabetes type 2 insulin-dependent Hypovolemic hyponatremia 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
[2020-03-01] MEDS: SODIUM CHLORIDE 0.9% 1,000 ML IV SCH (16:54)
[2020-03-01 17:18] LABS: Glucose,Whole Blood 155 mg/dL (75-99)
[2020-03-01 19:33] VITALS: RESP 18
[2020-03-01 20:08] LABS: Glucose,Whole Blood 164 mg/dL (75-99)
[2020-03-01] MEDS: ATORVASTATIN 20 MG TAB PO SCH (20:56)
[2020-03-01] MEDS ORDERED: INSULIN DETEMIR (LEVEMIR) 100 UNIT/ML SYR SQ SCH (21:00)
[2020-03-01] MEDS: ACETAMINOPHEN TAB 325 MG TAB PO PRN (22:56)
[2020-03-01] MEDS: MELATONIN 3 MG TABLET PO PRN (22:56)
[2020-03-02] MEDS: ELTROMBOPAG OLAMINE 25 MG PO SCH (05:38)
[2020-03-02] MEDS: ELTROMBOPAG OLAMINE 50 MG PO SCH (05:39)
[2020-03-02] MEDS: LEVOTHYROXINE 25 MCG TAB PO SCH (05:39)
[2020-03-02 06:55] LABS: Glucose,Whole Blood 75 mg/dL (75-99)
[2020-03-02] MEDS: INSULIN ASPART (NovoLOG) 100 UNIT/ML VIAL SQ SCH ×2 (06:58→12:29)
[2020-03-02] MEDS: TAMSULOSIN 0.4 MG CAP.ER.24H PO SCH (08:08)
[2020-03-02] MEDS: ENOXAPARIN 40 MG/0.4 ML SYRINGE SQ SCH (08:08)
[2020-03-02] MEDS: TACROLIMUS 0.5 MG CAP PO SCH (08:08)
[2020-03-02] MEDS: PANTOPRAZOLE 40 MG TABLET PO SCH (08:08)
[2020-03-02] MEDS: PIPERACILLIN-TAZOBACTAM 3.375 GM in SODIUM CHLORIDE 0.9% 100 ML IVPB SCH (08:08)
[2020-03-02] MEDS: VIT A,C & E-LUTEIN-MINERALS 1 EACH TAB PO SCH (08:08)
[2020-03-02] MEDS: METOPROLOL TARTRATE 50 MG TAB PO SCH (08:08)
[2020-03-02] MEDS: FINASTERIDE 5 MG TAB PO SCH (08:09)
[2020-03-02] MEDS: DULoxetine HCL 60 MG CAPSULE.DR PO SCH (08:09)
[2020-03-02] MEDS: FLUCONAZOLE 100 MG TAB PO SCH (08:09)
[2020-03-02] MEDS: AZITHROMYCIN 500 MG TAB PO SCH (08:09)
[2020-03-02] MEDS: NYSTATIN 100,000 UNIT/ML SUSP 500,000 UNIT/5 ML CUP PO SCH ×2 (08:09→13:12)
[2020-03-02] MEDS: amLODIPine 5 MG TAB PO SCH (08:09)
[2020-03-02] MEDS: FUROSEMIDE 10 MG/ML 2 ML VIAL IV SCH (08:09)
[2020-03-02 09:26] LABS: Hemoglobin A1C 6.3 % (4.0-6.0)
[2020-03-02] MEDS ORDERED: POTASSIUM CHLORIDE ER 20 MEQ TAB.ER PO STA (10:57)
[2020-03-02 11:26] LABS: Glucose,Whole Blood 209 mg/dL (75-99)
[2020-03-02] MEDS: VANCOMYCIN 1,500 MG in SODIUM CHLORIDE 0.9% 250 ML IVPB SCH (12:08)
--- NOTE | 2020-03-02 12:48 | P.DS ---
Providers Date of admission: 02/23/20 10:08 Expected date of discharge: 03/02/20 Attending physician: Narinder Rosenberg Consults: 02/23/20 10:08 Consult Physician Routine Consulting Provider: Bowen Méndez Consult Reason/Comments: Pneumonia, rule out COVID Do you want consulting provider notified?: Yes 02/23/20 20:36 Consult Physician Routine Consulting Provider: Binta Crabtree Consult Reason/Comments: A fib with RVR Do you want consulting provider notified?: Yes Primary care physician: Narinder Rosenberg [facility] Course: Final diagnosis Covid 19 ruled out, testing was negative Bilateral pneumonias, with extensive pneumonia in the right upper lobe. 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 Patient will follow-up with Dr. Rosenberg upon discharge. Patient will continue with a short course of oral antibiotics in the form of Augmentin twice daily for the next 7 days along with nystatin swish and swallow and then may discontinue. Total time taken is 35 m inutes. History of present illness This is an 79-year-old male who was recently admitted with altered mental status and was being closely monitored. Patient was also found to have bilateral pneumonia with extensive pneumonia in the right upper lobe and underwent bronchoscopy with BAL and fluid analysis cultures are still pending. Patient was maintained on IV antibiotics and we'll transition to oral antibiotics in the form of Augmentin twice daily for the next 7 days and then may discontinue. Patient will also continue on bronchodilators in the outpatient setting. Patient's mentation improved significantly during hospitalization. Patient also had some mild pulmonary edema which may be related to IV fluid administration and does have a history of congestive heart failure with diastolic dysfunction but was not in any acute exacerbation. Patient was maintained on a few doses of IV Lasix and diuresed well. Patient is currently on room air and tolerating well. Patient continues to be weak requiring some assistance and would benefit from subacute rehab for continued PT/OT therapy. Patient was tested for covid 19 and was negative. Currently no reports of chest pain, shortness of breath, or palpitations. Patient is afebrile. No reports of nausea or vomiting and patient is tolerating diet. Guarded prognosis. On exam vital signs are stable. Temp is 98.4F, pulse is 91, respirations are 18, blood pressure is 136/49, oxygen saturation is 92% on room air. Cardio S1, S2 are muffled. Respiratory shows diminished breath sounds at the bases with a few scattered rhonchi noted. Abdomen is soft and nontender. Nervous system shows mild diffuse weakness. Please refer to medication reconciliation sheet for a list of medications. Patient Condition at Discharge: Stable Plan - Discharge Summary New Discharge Prescriptions: New Amoxicillin/Potassium Clav [Augmentin 875-125 Tablet] 1 tab PO Q12HR 7 Days #14 tab Insulin Detemir (Levemir) [Levemir] 12 unit SQ HS syr Metoprolol Tartrate [Lopressor] 50 mg PO BID@0900,2100 tab Melatonin 3 mg PO HS PRN tablet PRN Reason: Insomnia Nystatin 100,000 Unit/ml Susp [Mycostatin Oral Susp] 500,000 unit PO QID ml INSULIN ASPART (NovoLOG) [NovoLOG (formulary)] 0 unit SQ ACHS vial Continue Finasteride [Proscar] 5 mg PO DAILY@0900 Tamsulosin HCl [Flomax] 0.4 mg PO DAILY@0900 DULoxetine HCL [Cymbalta] 120 mg PO DAILY Multivitamins, Thera [Multivitamin (formulary)] 1 tab PO DAILY@0900 Atorvastatin Calcium [Lipitor] 20 mg PO HS@2100 Levothyroxine Sodium [Levoxyl] 25 mcg PO DAILY@0600 amLODIPine [Norvasc] 5 mg PO BID Vit C/E/Zn/Coppr/Lutein/Zeaxan [Preservision Areds 2 Softgel] 1 cap PO DAILY@0900 Acetaminophen Tab [Tylenol] 650 mg PO Q6HR PRN tab PRN Reason: Fever And/ Or Pain Pantoprazole [Protonix] 40 mg PO DAILY@0900 Eltrombopag Olamine [Promacta] 50 mg PO DAILY@0600 Calcium Carbonate [Tums] 1,000 mg PO DAILY@0900 Magnesium Oxide [Mag-Ox] 400 mg PO DAILY@0900 tab Tacrolimus [Prograf] 0.5 mg PO BID Eltrombopag Olamine [Promacta] 25 mg PO DAILY@0600 clonazePAM [KlonoPIN] 1 - 2 mg PO HS PRN #6 tab PRN Reason: Anxiety traMADol HCL 50 mg PO BID #6 tab Discontinued Amitriptyline HCl [Elavil] 100 mg PO HS@2099 Metoprolol Tartrate [Lopressor] 25 mg PO BID@09,2099 traZODone HCL 100 mg PO HS@2100 INSULIN LISPRO (HumaLOG) [humaLOG] 0 unit SQ ACHS #1 vial hydrALAZINE HCL [Apresoline] 25 mg PO TID Insulin Glargine,Hum.rec.anlog [Basaglar Kwikpen U-100] 25 unit SQ HS Discharge Medication List Finasteride [Proscar] 5 mg PO DAILY@89902/09/17 [History] Tamsulosin HCl [Flomax] 0.4 mg PO DAILY@89902/09/17 [History] DULoxetine HCL [Cymbalta] 120 mg PO DAILY 04/19/18 [History] Multivitamins, Thera [Multivitamin (formulary)] 1 tab PO DAILY@0912/31/18 [History] Atorvastatin Calcium [Lipitor] 20 mg PO HS@2100 10/14/19 [History] Levothyroxine Sodium [Levoxyl] 25 mcg PO DAILY@0612/18/19 [History] Vit C/E/Zn/Coppr/Lutein/Zeaxan [Preservision Areds 2 Softgel] 1 cap PO DAILY@89912/18/19 [History] amLODIPine [Norvasc] 5 mg PO BID 12/18/19 [History] Acetaminophen Tab [Tylenol] 650 mg PO Q6HR PRN tab 12/24/19 [Rx] Calcium Carbonate [Tums] 1,000 mg PO DAILY@0912/28/19 [History] Eltrombopag Olamine [Promacta] 50 mg PO DAILY@59912/28/19 [History] Pantoprazole [Protonix] 40 mg PO DAILY@89912/28/19 [History] Magnesium Oxide [Mag-Ox] 400 mg PO DAILY@0900 tab 12/31/19 [Rx] Eltrombopag Olamine [Promacta] 25 mg PO DAILY@0600 02/23/20 [History] Tacrolimus [Prograf] 0.5 mg PO BID 02/23/20 [History] Amoxicillin/Potassium Clav [Augmentin 875-125 Tablet] 1 tab PO Q12HR 7 Days #14 tab 03/02/20 [Rx] INSULIN ASPART (NovoLOG) [NovoLOG (formulary)] 0 unit SQ ACHS vial 03/02/20 [Rx] Insulin Detemir (Levemir) [Levemir] 12 unit SQ HS syr 03/02/20 [Rx] Melatonin 3 mg PO HS PRN tablet 03/02/20 [Rx] Metoprolol Tartrate [Lopressor] 50 mg PO BID@0900,2100 tab 03/02/20 [Rx] Nystatin 100,000 Unit/ml Susp [Mycostatin Oral Susp] 500,000 unit PO QID ml 03/02/20 [Rx] clonazePAM [KlonoPIN] 1 - 2 mg PO HS PRN #6 tab 03/02/20 [Rx] traMADol HCL 50 mg PO BID #6 tab 03/02/20 [Rx] Follow up Appointment(s)/Referral(s): Narinder Rosenberg DO [Primary Care Provider] - 1-2 days [facility], [NON-STAFF] - 1-2 Days [facility], [NON-STAFF] - Activity/Diet/Wound Care/Special Instructions: Patient is going to [facility] Activity as tolerated Continue with current diet Continue to monitor blood sugars before meals at bedtime and treat accordingly Continue with antibiotics for the next 1 week and then may discontinue Discharge Disposition: TRANSFER TO SNF/ECF
[2020-03-02 13:26] LABS: Albumin 2.9 g/dL (3.5-5.0); Calcium 7.5 mg/dL (8.4-10.2); Potassium 4.4 mmol/L (3.5-5.1); Total Bilirubin 0.9 mg/dL (0.2-1.3)
--- NOTE | 2020-03-02 13:42 | P.PN ---
Subjective Progress Note Date: 03/02/20 Principal diagnosis: Altered mentation, fever On 02/24/2020 patient seen in follow-up on general medical surgical floor. He is resting comfortably in bed, he is awake, he is answering some questions, but she feels that she still somewhat confused, but he was able to provide some history, seems to be able to carry on a conversation appropriately. Fever pattern seems to have improved since admission, his T-max in the last 24 hours was 100.7F this morning at 5:00, 3 L of oxygen and his pulse ox is 94-96%, slightly tachycardic with a rate of 106 BPM, no complaints of chest pain, there is no hemoptysis. He remains on cognition of azithromycin and Rocephin. His follow-up chest x-ray today shows new worsening lateral left midlung focal infiltrate and peripheral left basilar acute infiltrate and/or atelectasis. Correlate to exclude possible cold in 19 infection due to peripheral distribution. COVID 19 PCR test is still pending. Denies any fever or malaise, no nausea vomiting or diarrhea. No complex of sore throat. He does have a mild cough. Procalcitonin level is elevated at 0.21 On 02/25/2020 patient is seen in follow-up on the general medical surgical [facility]. He is feeling better today, remains on azithromycin and Rocephin, his Covid 19 PCR is still pending. His follow-up chest x-ray today shows left perihilar infiltrate that seems to be improving. Patient is sitting up in the recliner, in no acute distress, at times seems to be a bit confused, denies any chest discomfort, breathing is comfortable, patient is on 3 L of oxygen with pulse ox of 95%, he still febrile, with a T-max of 102.3F. Today's labs have been reviewed, showing white blood cell count within normal limits of 4.9, hemoglobin is 12.6, d-dimer is 1.3, sodium is 134, Evelyn electrolytes and renal profile were within normal limits, LDH is relatively stable at 1015, CRP is on a rise at 318. Procalcitonin level 0.21, suggesting possibility of underlying bacterial infection likely related to underlying pneumonia. On 02/26/2020 patient seen in follow-up general medical surgical floor. He is awake and alert, in no acute distress, his COVID 19 test came back negative. His currently on 4 L of oxygen with pulse ox of 94%, he still having some low- grade fevers, fever pattern seems to have improved. He remains on a combination of Rocephin and Zithromax, his blood culture has shown no growth, we have not been able to collect a sputum specimen from, but clinically he is feeling better, he sitting up in chair, in no acute distress, patient seems to have improved, he is in some questions and having a conversation with this and seems to be responding appropriately. No new chest x-ray today, no new lab work. Lung sounds revealed a few scattered rales at bilateral bases, no wheezing On 02/27/2020 patient seen in follow-up on general medical surgical floor. He is resting comfortably in bed, he is currently on 3 L of oxygen his pulse ox is 95%, still having some spikes in fever, with T-max in last 24 hours of 101.6F. He is afebrile this morning. No worsening dyspnea, no altered mentation, lung sounds are clear diminished, no rhonchi or wheezing. Blood culture has been negative since admission, his lab work has been reviewed, his white count is 5.0, hemoglobin is 11.9, sodium is 133, potassium 3.2, chloride is 97, the rest of the electrolytes and renal profile were within normal limits. Patient remains on azithromycin and Rocephin, clinically he seems to be improving, were awaiting repeat chest x-ray today. On 03/02/2020 patient seen in follow-up on general medical surgical floor, he is up in the chair, in no acute distress, room air pulse ox is 92%, respirations are nonlabored, lung sounds are clear, diminished at the bases, no cough or congestion, no hemoptysis, no complaints of chest pain or palpitations, his been afebrile, patient is status post bronchoscopy with bronchoalveolar lavage, and bronch lavage cultures have shown no growth so far. Patient was treated with Rocephin and Zithromax initially, and his antibiotic coverage was switched to vancomycin and Zosyn, bronchial wash cultures have been negative, blood culture has shown no growth, clinically patient is improving, his been afebrile, today's labs have been reviewed, showing serum sodium of 134, the rest of electrolytes are unremarkable, creatinine did increase to 1.93. His urine Legionella antigen was negative, coronavirus PCR was negative, his pro-calcitonin did come down from 0.21 to 0.12. His most recent chest x-ray from yesterday showed a left- sided focal airspace opacity unchanged from 02/29/2020, increased patchy opacity over the right perihilar lung with developing consolidation versus pulmonary vascular congestion. Patient did receive IV diuretics, he is in -1.4 L fluid balance over the last 24 hours. Discharge planning is in progress for discharge to EC for rehabilitation today. From pulmonary perspective patient is stable for discharge to ECF 7 day course of oral Augmentin based on his clinical improvement, pro-calcitonin downtrend, he will need close outpatient follow-up for repeat chest x-ray Objective - Vital Signs Vital signs: Vital Signs Temp 98.4 F 03/02/20 07:00 Pulse 91 03/02/20 07:00 Resp 18 03/02/20 07:00 BP 136/49 03/02/20 07:00 Pulse Ox 92 L 03/02/20 07:00 Intake & Output 03/01/20 03/02/20 03/02/20 18:59 06:59 18:59 Output Total 400 1000 Balance -400 -1000 Weight 90.718 kg Output: Urine 400 1000 Other: Voiding Method Diaper Diaper Diaper Incontinent Incontinent Incontinent # Voids 2 2 - Exam GENERAL EXAM: Alert, pleasant, 79-year-old overweight white male, currently on room air of 92%, slightly pale, comfortable in no apparent distress. HEAD: Normocephalic/atraumatic. EYES: Normal reaction of pupils, equal size. Conjunctiva pink, sclera white. NOSE: Clear with pink turbinates. THROAT: No erythema or exudates. NECK: No masses, no JVD, no thyroid enlargement, no adenopathy. CHEST: No chest wall deformity. Symmetrical expansion. LUNGS: Equal air entry with no crackles, wheeze, rhonchi or dullness. CVS: Regular rate and rhythm, normal S1 and S2, no gallops, no murmurs, no rubs ABDOMEN: Soft, nontender. No hepatosplenomegaly, normal bowel sounds, no guarding or rigidity. EXTREMITIES: No clubbing, no edema, no cyanosis, 2+ pulses and upper and lower extremities. MUSCULOSKELETAL: Muscle strength and tone normal. SPINE: No scoliosis or deformity SKIN: No rashes CENTRAL NERVOUS SYSTEM: Alert and oriented -3. No focal deficits, tone is normal in all 4 extremities. PSYCHIATRIC: Alert and oriented -3. Appropriate affect. Intact judgment and insight. - Labs CBC & Chem 7: 03/01/20 07:08 03/02/20 12:56 Labs: Abnormal Lab Results - Last 24 Hours (Table) 02/29/20 03/01/20 03/01/20 Range/Units 10:53 17:06 20:07 Sodium (137-145) mmol/L Creatinine (0.66-1.25) mg/dL Glucose (74-99) mg/dL POC Glucose (mg/dL) 155 H 164 H (75-99) mg/dL Hemoglobin A1c 6.3 H (4.0-6.0) % Calcium (8.4-10.2) mg/dL AST (17-59) U/L ALT (4-49) U/L Total Protein (6.3-8.2) g/dL Albumin (3.5-5.0) g/dL 03/02/20 03/02/20 Range/Units 11:25 12:56 Sodium 134 L (137-145) mmol/L Creatinine 1.93 H (0.66-1.25) mg/dL Glucose 176 H (74-99) mg/dL POC Glucose (mg/dL) 209 H (75-99) mg/dL Hemoglobin A1c (4.0-6.0) % Calcium 7.5 L (8.4-10.2) mg/dL AST 68 H (17-59) U/L ALT 72 H (4-49) U/L Total Protein 5.0 L (6.3-8.2) g/dL Albumin 2.9 L (3.5-5.0) g/dL Microbiology - Last 24 Hours (Table) 02/28/20 14:39 Gram Stain - Final Bronchoalviolar Lavage - Left Bronchial Washings Culture - Final Assessment and Plan Plan: Assessment: #1. Sepsis, likely related to underlying bilateral pneumonia, patient presented with vascular congestion and mild interstitial changes, however superimposed bilateral pneumonia could not be entirely excluded, in the immunosuppressed host with history of nephrectomy on immunosuppressive medications, including Prograf. Pro-calcitonin level came back elevated at 0.21, follow-up pro-calcitonin showed a down trend down to 0.12 #2. Fever, altered mental status present on admission related to the above, improved #3. Ruled out possibility of COVID 19 related pneumonia, COVID 19 PCR negative #4. Acute metabolic encephalopathy related to infection, improved #5. Possible mild fluid overload, acute exacerbation of congestive heart failur e, with unknown systolic function #6. 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 History of slow-growing prostate cancer, under surveillance by Dr. Craig #9. Diabetes multistep 2 #10. Hypertension #11. Hyperlipidemia #12. Chronic kidney disease, status post kidney transplant currently on Prograf #13. Hypothyroidism #14. Coronary artery disease status post bypass grafting #15. Anxiety/depression #16. Acute kidney injury possibly related to diuretics, and vancomycin Plan: Clinically patient improving, there have been no recurrence of fevers, he is been treated with Zosyn and vancomycin, his pro-calcitonin level has improved, his mentation has improved, no significant cough or congestion, no hemoptysis, no chest pain. From pulmonary perspective he stable for discharge to [facility] on 7 day course of oral Augmentin, his bronchial wash cultures have been negative, he will need outpatient follow-up with Dr. Méndez in the office in 7-10 days for a follow-up chest x-ray. I performed a history & physical examination of the patient and discussed their management with my nurse practitioner, Marge Adams. I reviewed the nurse practitioner's note and agree with the documented findings and plan of care. Lung sounds are positive for diminished breath sounds. The findings and the impression was discussed with the patient. I attest to the documentation by the nurse practitioner. Time with Patient: Less than 30
[2020-03-02 14:10] VITALS: BP 123/79; PULSE 93; TEMP 97.8
[2020-03-03] MEDS ORDERED: VANCOMYCIN TROUGH DUE 1 EACH MISC MISCELLANE ONE (11:00)
== END 2020-03-02 15:00 | DRG 871 ==
LOC: EC 08:49 → 4SSUR 10:08
PROVIDERS: ADMIT Family Medicine; ATTEND Family Medicine
PROC: 0B9H8ZX Drainage of Lung Lingula, Via Natural or Artificial Opening Endoscopic, Diagnostic (ICD-10-PCS; principal; 2020-02-28 13:00)
DX: A41.9 Sepsis, unspecified organism (principal); J18.9 Pneumonia, unspecified organism; G92 Toxic encephalopathy; J96.01 Acute respiratory failure with hypoxia; I50.33 Acute on chronic diastolic (congestive) heart failure; I13.0 Hypertensive heart and chronic kidney disease with heart failure and stage 1 through stage 4 chronic kidney disease, or unspecified chronic kidney disease; Z94.0 Kidney transplant status; E87.1 Hypo-osmolality and hyponatremia; I48.19 Other persistent atrial fibrillation; N17.9 Acute kidney failure, unspecified; B37.0 Candidal stomatitis; B37.89 Other sites of candidiasis; I48.92 Unspecified atrial flutter; Z20.828 Contact with and (suspected) exposure to other viral communicable diseases; E03.9 Hypothyroidism, unspecified; E11.22 Type 2 diabetes mellitus with diabetic chronic kidney disease; T50.2X5A Adverse effect of carbonic-anhydrase inhibitors, benzothiadiazides and other diuretics, initial encounter; T36.8X5A Adverse effect of other systemic antibiotics, initial encounter; E78.5 Hyperlipidemia, unspecified; F32.9 Major depressive disorder, single episode, unspecified; F41.9 Anxiety disorder, unspecified; G89.29 Other chronic pain; N18.3 Chronic kidney disease, stage 3 (moderate); E86.1 Hypovolemia; R65.20 Severe sepsis without septic shock; I25.10 Atherosclerotic heart disease of native coronary artery without angina pectoris; M54.9 Dorsalgia, unspecified; Z96.659 Presence of unspecified artificial knee joint; I35.1 Nonrheumatic aortic (valve) insufficiency; J39.8 Other specified diseases of upper respiratory tract; R32 Unspecified urinary incontinence; H91.90 Unspecified hearing loss, unspecified ear; Z85.46 Personal history of malignant neoplasm of prostate; Z79.899 Other long term (current) drug therapy; Z79.890 Hormone replacement therapy; Z79.4 Long term (current) use of insulin; Z88.5 Allergy status to narcotic agent; Z85.820 Personal history of malignant melanoma of skin; Z95.1 Presence of aortocoronary bypass graft; Z80.8 Family history of malignant neoplasm of other organs or systems; Z82.49 Family history of ischemic heart disease and other diseases of the circulatory system; Z86.2 Personal history of diseases of the blood and blood-forming organs and certain disorders involving the immune mechanism; Z98.890 Other specified postprocedural states; Z90.5 Acquired absence of kidney
CPT/HCPCS: 31624; 36415; 71045; 71046; 80048; 80053; 80202; 81003; 82728; 83036; 83605; 83615; 83880; 84132; 84145; 84484; 85025; 85027; 85379; 85384; 85610; 85730; 86140; 87040; 87070; 87075; 87102; 87116; 87205; 87206; 87252; 87449; 87496; 87498; 87502; 87529; 87634; 87635; 87798; 88108; 88305; 93005; 93306; 96365; 99285

== ENCOUNTER 2020-03-05 17:32 | Inpatient (IN) | payer MEDICARE ==
--- NOTE | 2020-03-05 17:56 | ED ---
Recheck HPI - General Chief Complaint: Recheck/Abnormal Lab/Rx Stated Complaint: Kidney Failure Time Seen by Provider: 03/05/20 17:44 Source: patient, EMS, RN notes reviewed, old records reviewed Mode of arrival: EMS Limitations: no limitations - History of Present Illness Initial Comments: This is a 79-year-old male DF for evaluation patient Dese for evaluation regards to abnormal outpatient lab tests patient's of admits to some mild weakness feels lethargic and dehydrated. Patient is multiple recent medical issues inpatient hospitalization for infection, patient currently at [facility] he had abnormal blood test for the last 2 days with worsening renal failure. Patient aside from feeling weak has no complaints MD Complaint: abnormal lab (Abnormal renal function) -: days(s) Returns Today for: Called Because of Abnormal Lab/Test Symptoms Since Prior Visit: no new symptoms Context: called for abnormal lab result Associated Symptoms: none - Related Data Home Medications Medication Instructions Recorded Confirmed Finasteride [Proscar] 5 mg PO DAILY@79902/09/17 03/05/20 Tamsulosin HCl [Flomax] 0.4 mg PO DAILY@79902/09/17 03/05/20 DULoxetine HCL [Cymbalta] 120 mg PO DAILY@79904/19/18 03/05/20 Multivitamins, Thera [Multivitamin 1 tab PO DAILY@0 12/31/18 03/05/20 (formulary)] Atorvastatin Calcium [Lipitor] 20 mg PO HS@2100 10/14/19 03/05/20 Levothyroxine Sodium [Levoxyl] 25 mcg PO DAILY@59912/18/19 03/05/20 Vit C/E/Zn/Coppr/Lutein/Zeaxan 1 cap PO DAILY@79912/18/19 03/05/20 [Preservision Areds 2 Softgel] amLODIPine [Norvasc] 5 mg PO BID@0800,1700 12/18/19 03/05/20 Calcium Carbonate [Tums] 1,000 mg PO DAILY@79912/28/19 03/05/20 Eltrombopag Olamine [Promacta] 50 mg PO DAILY@59912/28/19 03/05/20 Pantoprazole [Protonix] 40 mg PO DAILY@79912/28/19 03/05/20 Eltrombopag Olamine [Promacta] 25 mg PO DAILY@0600 02/23/20 03/05/20 Tacrolimus [Prograf] 0.5 mg PO BID@0800,1700 02/23/20 03/05/20 Amoxicillin/Potassium Clav 1 tab PO Q12H 03/05/20 03/05/20 [Augmentin 875-125 Tablet] Glucerna Shake 120 ml PO BID@1200,1700 03/05/20 03/05/20 INSULIN ASPART (NovoLOG) [NovoLOG See Protocol SQ ACHS 03/05/20 03/05/20 (formulary)] Insulin Detemir (Levemir) [Levemir] 12 unit SQ HS@2100 03/05/20 03/05/20 Magnesium Hydroxide [Milk of 7,200 mg PO Q48H PRN 03/05/20 03/05/20 Magnesia Concentrate] Magnesium Oxide [Mag-Ox] 400 mg PO DAILY@0800 03/05/20 03/05/20 Melatonin 3 mg PO HS PRN 03/05/20 03/05/20 Metoprolol Tartrate [Lopressor] 50 mg PO Q12H 03/05/20 03/05/20 Na Phos,M-B/Na Phos,Di-Ba [Fleet 133 ml RECTAL DAILY PRN 03/05/20 03/05/20 Adult] bisacodyL [Bisacodyl] 10 mg RECTAL DAILY PRN 03/05/20 03/05/20 traMADol HCL 50 mg PO BID@0800,2000 03/05/20 03/05/20 Previous Rx's Medication Instructions Recorded Acetaminophen Tab [Tylenol] 650 mg PO Q6HR PRN tab 12/24/19 Nystatin 100,000 Unit/ml Susp 500,000 unit PO QID ml 03/02/20 [Mycostatin Oral Susp] clonazePAM [KlonoPIN] 1 - 2 mg PO HS PRN #6 tab 03/02/20 Allergies Allergy/AdvReac Type Severity Reaction Status Date / Time morphine Allergy Itching Verified 03/05/20 18:50 Review of Systems ROS Statement: Those systems with pertinent positive or pertinent negative responses have been documented in the HPI. ROS Other: All systems not noted in ROS Statement are negative. 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." Hard of hearing, LOW PLATELETS, History of Any Multi-Drug Resistant Organisms: None Reported Past Surgical History: Orthopedic Surgery Additional Past Surgical History / Comment(s): kidney transplant, parathyroid surgery, knee surgery, pericardiocentesis Past Anesthesia/Blood Transfusion Reactions: No Reported Reaction Past Psychological History: Anxiety, Depression Smoking Status: Never smoker Past Alcohol Use History: Rare Past Drug Use History: None Reported - Past Family History Father Family Medical History: Deep Vein Thrombosis (DVT) Son(s) Family Medical History: Cancer Additional Family Medical History / Comment(s): Skin cancer. General Exam General appearance: alert, in no apparent distress Head exam: Present: atraumatic, normocephalic, normal inspection Eye exam: Present: normal appearance, PERRL, EOMI. Absent: scleral icterus, conjunctival injection, periorbital swelling ENT exam: Present: normal exam, mucous membranes moist Neck exam: Present: normal inspection. Absent: tenderness, meningismus, lymphadenopathy Respiratory exam: Present: normal lung sounds bilaterally. Absent: respiratory distress, wheezes, rales, rhonchi, stridor Cardiovascular Exam: Present: regular rate, normal rhythm, normal heart sounds. Absent: systolic murmur, diastolic murmur, rubs, gallop, clicks GI/Abdominal exam: Present: soft, normal bowel sounds. Absent: distended, tenderness, guarding, rebound, rigid Extremities exam: Present: normal inspection, full ROM, normal capillary refill. Absent: tenderness, pedal edema, joint swelling, calf tenderness Back exam: Present: normal inspection Neurological exam: Present: alert, oriented X3, CN II-XII intact Psychiatric exam: Present: normal affect, normal mood Skin exam: Present: warm, dry, intact, normal color. Absent: rash Course Vital Signs 03/05/20 17:36 Temperature 97.9 F Pulse Rate 89 Respiratory 18 Rate Blood Pressure 131/96 O2 Sat by Pulse 96 Oximetry - Reevaluation(s) Reevaluation #1: 03/05/20 19:29 Medical record including prior labs are reviewed Reevaluation #2: 03/05/20 19:29 Patient remains without complaint of pain - Consultations Consultation #1: Speak with Dr. Rosenberg for admission Medical Decision Making - Medical Decision Making 79 male DF for evaluation of new onset acute renal failure will admit for nephrology consultation - Lab Data Result diagrams: 03/05/20 18:13 03/05/20 18:13 Lab Results 03/05/20 03/05/20 03/05/20 Range/Units 18:13 18:13 18:13 WBC 8.1 (3.8-10.6) k/uL RBC 4.09 L (4.30-5.90) m/uL Hgb 11.7 L (13.0-17.5) gm/dL Hct 37.0 L (39.0-53.0) % MCV 90.4 (80.0-100.0) fL MCH 28.7 (25.0-35.0) pg MCHC 31.7 (31.0-37.0) g/dL RDW 16.2 H (11.5-15.5) % Plt Count 418 (150-450) k/uL Neutrophils % 73 % Lymphocytes % 8 % Monocytes % 10 % Eosinophils % 4 % Basophils % 2 % Neutrophils # 5.9 (1.3-7.7) k/uL Lymphocytes # 0.6 L (1.0-4.8) k/uL Monocytes # 0.8 (0-1.0) k/uL Eosinophils # 0.4 (0-0.7) k/uL Basophils # 0.2 (0-0.2) k/uL Hypochromasia Slight Anisocytosis Slight PT 11.2 (9.0-12.0) sec INR 1.1 (<1.2) APTT 28.5 (22.0-30.0) sec Sodium (137-145) mmol/L Potassium (3.5-5.1) mmol/L Chloride (98-107) mmol/L Carbon Dioxide (22-30) mmol/L Anion Gap mmol/L BUN (9-20) mg/dL Creatinine (0.66-1.25) mg/dL Est GFR (CKD-EPI)AfAm (>60 ml/min/1.73 sqM) Est GFR (CKD-EPI)NonAf (>60 ml/min/1.73 sqM) Glucose (74-99) mg/dL Calcium (8.4-10.2) mg/dL Phosphorus (2.5-4.5) mg/dL Magnesium (1.6-2.3) mg/dL Total Bilirubin (0.2-1.3) mg/dL AST (17-59) U/L ALT (4-49) U/L Alkaline Phosphatase (38-126) U/L Creatine Kinase (55-170) U/L Troponin I (0.000-0.034) ng/mL NT-Pro-B Natriuret Pep pg/mL Total Protein (6.3-8.2) g/dL Albumin (3.5-5.0) g/dL Urine Color Light Yellow Urine Appearance Clear (Clear) Urine pH 6.5 (5.0-8.0) Ur Specific [place] 1.005 (1.001-1.035) Urine Protein Negative (Negative) Urine Glucose (UA) Negative (Negative) Urine Ketones Negative (Negative) Urine Blood Negative (Negative) Urine Nitrite Negative (Negative) Urine Bilirubin Negative (Negative) Urine Urobilinogen <2.0 (<2.0) mg/dL Ur Leukocyte Esterase Negative (Negative) 03/05/20 03/05/20 03/05/20 Range/Units 18:13 18:13 18:13 WBC (3.8-10.6) k/uL RBC (4.30-5.90) m/uL Hgb (13.0-17.5) gm/dL Hct (39.0-53.0) % MCV (80.0-100.0) fL MCH (25.0-35.0) pg MCHC (31.0-37.0) g/dL RDW (11.5-15.5) % Plt Count (150-450) k/uL Neutrophils % % Lymphocytes % % Monocytes % % Eosinophils % % Basophils % % Neutrophils # (1.3-7.7) k/uL Lymphocytes # (1.0-4.8) k/uL Monocytes # (0-1.0) k/uL Eosinophils # (0-0.7) k/uL Basophils # (0-0.2) k/uL Hypochromasia Anisocytosis PT (9.0-12.0) sec INR (<1.2) APTT (22.0-30.0) sec Sodium 130 L (137-145) mmol/L Potassium 4.6 (3.5-5.1) mmol/L Chloride 100 (98-107) mmol/L Carbon Dioxide 22 (22-30) mmol/L Anion Gap 8 mmol/L BUN 25 H (9-20) mg/dL Creatinine 3.95 H (0.66-1.25) mg/dL Est GFR (CKD-EPI)AfAm 16 (>60 ml/min/1.73 sqM) Est GFR (CKD-EPI)NonAf 14 (>60 ml/min/1.73 sqM) Glucose 188 H (74-99) mg/dL Calcium 7.7 L (8.4-10.2) mg/dL Phosphorus 5.4 H (2.5-4.5) mg/dL Magnesium 1.9 (1.6-2.3) mg/dL Total Bilirubin 0.9 (0.2-1.3) mg/dL AST 30 (17-59) U/L ALT 33 (4-49) U/L Alkaline Phosphatase 87 (38-126) U/L Creatine Kinase 38 L (55-170) U/L Troponin I <0.012 (0.000-0.034) ng/mL NT-Pro-B Natriuret Pep 7290 pg/mL Total Protein 4.7 L (6.3-8.2) g/dL Albumin 2.6 L (3.5-5.0) g/dL Urine Color Urine Appearance (Clear) Urine pH (5.0-8.0) Ur Specific [place] (1.001-1.035) Urine Protein (Negative) Urine Glucose (UA) (Negative) Urine Ketones (Negative) Urine Blood (Negative) Urine Nitrite (Negative) Urine Bilirubin (Negative) Urine Urobilinogen (<2.0) mg/dL Ur Leukocyte Esterase (Negative) - EKG Data -: EKG Interpreted by Me (EKG is Afib 91 QRS 72 QTc 469) - Radiology Data Radiology results: report reviewed (Chest x-ray shows bilateral pneumonia), image reviewed Disposition Clinical Impression: Pneumonia, ARF (acute renal failure) Narrative: ro COVID Disposition: ADMITTED IP TO THIS [facility] Condition: Fair Is patient prescribed a controlled substance at d/c from ED?: No Referrals: Narinder Rosenberg DO [Primary Care Provider] - 1-2 days
[2020-03-05 18:33] LABS: Anisocytosis Slight; Basophils # (A) 0.2 k/uL (0-0.2); Basophils % (A) 2 %; Eosinophils # (A) 0.4 k/uL (0-0.7); Eosinophils % (A) 4 %; HGB 11.7 gm/dL (13.0-17.5); Hypochromasia Slight; Lymphocytes # (A) 0.6 k/uL (1.0-4.8); Lymphocytes % (A) 8 %; MCH 28.7 pg (25.0-35.0); MCHC 31.7 g/dL (31.0-37.0); MCV 90.4 fL (80.0-100.0); Mean Platelet Volume 8.2; Monocytes # (A) 0.8 k/uL (0-1.0); Monocytes % (A) 10 %; Neutrophils # (A) 5.9 k/uL (1.3-7.7); Neutrophils % (A) 73 %; Platelet Count 418 k/uL (150-450); RBC 4.09 m/uL (4.30-5.90); RDW 16.2 % (11.5-15.5); WBC 8.1 k/uL (3.8-10.6)
[2020-03-05 18:35] LABS: Appearance,Urine Clear (Clear); Bilirubin,Urine Negative (Negative); Blood,Urine Negative (Negative); Color,Urine Light Yellow; Glucose,Urine (UA) Negative (Negative); Ketones,Urine Negative (Negative); Leukocyte Esterase,Urine Negative (Negative); Nitrite,Urine Negative (Negative); PH, Urine 6.5 (5.0-8.0); Protein,Urine Negative (Negative); Specific Gravity,Urine 1.005 (1.001-1.035); Urobilinogen,Urine <2.0 mg/dL (<2.0)
[2020-03-05 18:43] LABS: INR 1.1 (<1.2); Partial Thromboplastin Time 28.5 sec (22.0-30.0); Prothrombin Time 11.2 sec (9.0-12.0)
--- NOTE | 2020-03-05 18:54 | XR ---
EXAMINATION TYPE: XR chest 2V DATE OF EXAM: 03/05/2020 COMPARISON: 03/01/2020 HISTORY: Pneumonia. Weakness. TECHNIQUE: FINDINGS: There is some patchy airspace consolidation in the left lung. There is also some mild right side perihilar infiltrate. There is poor inspiration. There is no gross heart failure. Mediastinum i s normal. IMPRESSION: Bilateral pneumonia that is much worse on the left side. Pneumonia appears slightly worse than old exam. No gross heart failure.
[2020-03-05 18:55] LABS: Albumin 2.6 g/dL (3.5-5.0); Calcium 7.7 mg/dL (8.4-10.2); Magnesium 1.9 mg/dL (1.6-2.3); Phosphorus 5.4 mg/dL (2.5-4.5); Potassium 4.6 mmol/L (3.5-5.1); Total Bilirubin 0.9 mg/dL (0.2-1.3); Total Protein 4.7 g/dL (6.3-8.2)
[2020-03-05] MEDS ORDERED: SODIUM CHLORIDE 0.9% 1,000 ML IV ONE (19:27)
[2020-03-05] MEDS ORDERED: PIPERACILLIN-TAZOBACTAM 3.375 GM in SODIUM CHLORIDE 0.9% 100 ML IVPB STA (19:31)
[2020-03-05] MEDS ORDERED: IPRATROPIUM-ALBUTEROL 3 ML NEB INHALATION PRN (19:31)
[2020-03-05] MEDS ORDERED: PNEUMONIA PROTOCOL UTILIZED 1 EACH MISC PO PRN (19:31)
[2020-03-05] MEDS ORDERED: LEVOFLOXACIN 750MG-D5W PMX 750 MG in DEXTROSE/WATER 1 150ML.BAG IVPB STA (19:31)
[2020-03-05] MEDS ORDERED: NA PHOS,M-B/NA PHOS,DI-BA 133 ML ENEMA RECTAL PRN (21:29)
[2020-03-05] MEDS ORDERED: MAGNESIUM HYDROXIDE 2,400 MG/10 ML CUP PO PRN (21:29)
[2020-03-05] MEDS ORDERED: MELATONIN 1 MG TAB PO PRN (21:29)
[2020-03-05] MEDS ORDERED: bisacodyL 10 MG SUPP RECTAL PRN (21:29)
[2020-03-05 21:40] LABS: Glucose,Whole Blood 213 mg/dL (75-99)
[2020-03-05] MEDS: INSULIN ASPART (NovoLOG) 100 UNIT/ML VIAL SQ SCH (22:55)
[2020-03-05] MEDS: AMOXIC-POT CLAV 875-125MG 1 EACH TAB PO SCH (22:55)
[2020-03-05] MEDS: NYSTATIN 100,000 UNIT/ML SUSP 500,000 UNIT/5 ML CUP PO SCH (22:55)
[2020-03-05] MEDS: METOPROLOL TARTRATE 50 MG TAB PO SCH (22:55)
[2020-03-05] MEDS: clonazePAM 1 MG TAB PO PRN (22:56)
[2020-03-06] MEDS: PIPERACILLIN-TAZOBACTAM 3.375 GM in SODIUM CHLORIDE 0.9% 100 ML IVPB SCH ×3 (04:01→23:08)
[2020-03-06] MEDS: ACETAMINOPHEN TAB 325 MG TAB PO PRN ×2 (04:03→22:48)
[2020-03-06] MEDS: ELTROMBOPAG OLAMINE 25 MG PO SCH (05:56)
[2020-03-06] MEDS: Eltrombopag Olamine [Promacta] 50 MG PO SCH (05:56)
[2020-03-06] MEDS: LEVOTHYROXINE 25 MCG TAB PO SCH (05:57)
[2020-03-06 06:54] LABS: Glucose,Whole Blood 202 mg/dL (75-99)
--- NOTE | 2020-03-06 07:26 | XR ---
EXAMINATION TYPE: XR chest 2V DATE OF EXAM: 03/06/2020 COMPARISON: 03/05/2020 HISTORY: 79-year-old male pneumonia TECHNIQUE: PA and lateral views FINDINGS: Heart limits of normal in size. Diffuse perihilar and interstitial and patchy airspace opacities pers ist but show slight improvement from prior. Trace effusions on the lateral view. IMPRESSION: Perihilar, interstitial, and patchy airspace infiltrates similar to minimally improved. Trace effusio ns.
[2020-03-06] MEDS ORDERED: INSULIN ASPART (NovoLOG) 100 UNIT/ML VIAL SQ SCH (07:30)
[2020-03-06] MEDS: INSULIN ASPART (NovoLOG) 100 UNIT/ML VIAL SQ SCH ×4 (07:45→21:08)
[2020-03-06] MEDS: amLODIPine 5 MG TAB PO SCH ×2 (07:46→17:01)
[2020-03-06] MEDS: CALCIUM CARBONATE 500 MG CHEWABLE PO SCH (07:46)
[2020-03-06] MEDS: TAMSULOSIN 0.4 MG CAP.ER.24H PO SCH (07:46)
[2020-03-06] MEDS: MAGNESIUM OXIDE 400 MG TAB PO SCH (07:46)
[2020-03-06] MEDS: DULoxetine HCL 60 MG CAPSULE.DR PO SCH (07:46)
[2020-03-06] MEDS: FINASTERIDE 5 MG TAB PO SCH (07:46)
[2020-03-06] MEDS: traMADol 50 MG TAB PO SCH ×2 (07:46→20:49)
[2020-03-06] MEDS: PANTOPRAZOLE 40 MG TABLET PO SCH (07:46)
[2020-03-06] MEDS ORDERED: NON FORMULARY DRUG (Vit C/E/Zn/Coppr/Lutein/Zeaxan [Preservision Areds 2 Softgel] 1 CAP) PO SCH (08:00)
[2020-03-06 10:04] LABS: Anisocytosis Slight; HCT 33.5 % (39.0-53.0); HGB 10.5 gm/dL (13.0-17.5); Hypochromasia Slight; MCH 28.7 pg (25.0-35.0); MCHC 31.3 g/dL (31.0-37.0); MCV 91.5 fL (80.0-100.0); Platelet Count 362 k/uL (150-450); RBC 3.66 m/uL (4.30-5.90); RDW 16.1 % (11.5-15.5); WBC 8.3 k/uL (3.8-10.6)
[2020-03-06] MEDS ORDERED: FUROSEMIDE 10 MG/ML 4 ML VIAL IV STA (10:11)
[2020-03-06 10:22] LABS: Albumin 2.4 g/dL (3.5-5.0); Calcium 7.6 mg/dL (8.4-10.2); Potassium 4.8 mmol/L (3.5-5.1); Total Protein 4.5 g/dL (6.3-8.2)
[2020-03-06] MEDS: NYSTATIN 100,000 UNIT/ML SUSP 500,000 UNIT/5 ML CUP PO SCH ×4 (10:41→22:47)
[2020-03-06] MEDS: TACROLIMUS 0.5 MG CAP PO SCH ×2 (10:41→18:16)
--- NOTE | 2020-03-06 10:41 | P.NPCON ---
History of Present Illness - Reason for Consult acute renal failure, chronic renal failure - History of Present Illness Reason for consultation: Acute allograft dysfunction History of present illness: Patient is a 79-year-old male seen in initial consultation for acute allograft dysfunction. 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 Etiologies nephrosclerosis. In terms of immunosuppression patient is maintained on Prograf and prednisone. Patient's CellCept was discontinued due to thrombocytopenia. Patient's baseline creatinine is near 1 and is up to 4.07 today. Patient was recently treated for pneumonia. He presents due to abnormal labs and generalized weakness. Denies hematuria or dysuria. He has been voiding. No chest pain or shortness of breath. No fever or chills. Blood pressure stable. He does admit to edema in his lower extremity is. Chest x-ray suggestive of infiltrates with trace effusions. Oral intake fair. No vomiting. He did have diarrhea but better now. Patient is not a very reliable historian and is not sure of the medications that he's been receiving. Vital signs are stable. General: The patient appeared well nourished and normally developed. HEENT: Head exam is unremarkable. Neck is without jugular venous distension. LUNGS: Breath sounds decreased. HEART: Rate and Rhythm are regular. ABDOMEN: Soft, nontender. EXTREMITITES: 2+ edema. 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." Hard of hearing, LOW PLATELETS, History of Any Multi-Drug Resistant Organisms: None Reported Past Surgical History: Orthopedic Surgery Additional Past Surgical History / Comment(s): kidney transplant, parathyroid surgery, knee surgery, pericardiocentesis Past Anesthesia/Blood Transfusion Reactions: No Reported Reaction Past Psychological History: Anxiety, Depression Smoking Status: Never smoker Past Alcohol Use History: Rare Past Drug Use History: None Reported - Past Family History Father Family Medical History: Deep Vein Thrombosis (DVT) Son(s) Family Medical History: Cancer Additional Family Medical History / Comment(s): Skin cancer. Medications and Allergies Home Medications Medication Instructions Recorded Confirmed Type Finasteride [Proscar] 5 mg PO DAILY@0800 02/09/03/05/20 History Tamsulosin HCl [Flomax] 0.4 mg PO DAILY@0800 02/09/17 03/05/20 History DULoxetine HCL [Cymbalta] 120 mg PO DAILY@0804/19/18 03/05/20 History Multivitamins, Thera [Multivitamin 1 tab PO DAILY@1700 12/31/18 03/05/20 History (formulary)] Atorvastatin Calcium [Lipitor] 20 mg PO HS@2100 10/14/19 03/05/20 History Levothyroxine Sodium [Levoxyl] 25 mcg PO DAILY@0612/18/19 03/05/20 History Vit C/E/Zn/Coppr/Lutein/Zeaxan 1 cap PO DAILY@0812/18/19 03/05/20 History [Preservision Areds 2 Softgel] amLODIPine [Norvasc] 5 mg PO BID@0800,1700 12/18/19 03/05/20 History Acetaminophen Tab [Tylenol] 650 mg PO Q6HR PRN tab 12/24/19 03/05/20 Rx Calcium Carbonate [Tums] 1,000 mg PO DAILY@0800 12/28/19 03/05/20 History Eltrombopag Olamine [Promacta] 50 mg PO DAILY@0612/28/19 03/05/20 History Pantoprazole [Protonix] 40 mg PO DAILY@0800 12/28/19 03/05/20 History Eltrombopag Olamine [Promacta] 25 mg PO DAILY@0600 02/23/20 03/05/20 History Tacrolimus [Prograf] 0.5 mg PO BID@0800,1700 02/23/20 03/05/20 History Nystatin 100,000 Unit/ml Susp 500,000 unit PO QID ml 03/02/20 03/05/20 Rx [Mycostatin Oral Susp] clonazePAM [KlonoPIN] 1 - 2 mg PO HS PRN #6 tab 03/02/20 03/05/20 Rx Amoxicillin/Potassium Clav 1 tab PO Q12H 03/05/20 03/05/20 History [Augmentin 875-125 Tablet] Glucerna Shake 120 ml PO BID@1200,1700 03/05/20 03/05/20 History INSULIN ASPART (NovoLOG) [NovoLOG See Protocol SQ ACHS 03/05/20 03/05/20 History (formulary)] Insulin Detemir (Levemir) [Levemir] 12 unit SQ HS@2100 03/05/20 03/05/20 History Magnesium Hydroxide [Milk of 7,200 mg PO Q48H PRN 03/05/20 03/05/20 History Magnesia Concentrate] Magnesium Oxide [Mag-Ox] 400 mg PO DAILY@0800 03/05/20 03/05/20 History Melatonin 3 mg PO HS PRN 03/05/20 03/05/20 History Metoprolol Tartrate [Lopressor] 50 mg PO Q12H 03/05/20 03/05/20 History Na Phos,M-B/Na Phos,Di-Ba [Fleet 133 ml RECTAL DAILY PRN 03/05/20 03/05/20 History Adult] bisacodyL [Bisacodyl] 10 mg RECTAL DAILY PRN 03/05/20 03/05/20 History traMADol HCL 50 mg PO BID@0800,199903/05/20 03/05/20 History Allergies Allergy/AdvReac Type Severity Reaction Status Date / Time morphine Allergy Itching Verified 03/05/20 18:50 Physical Exam Vitals: Vital Signs Temp Pulse Pulse Resp BP BP Pulse Ox 03/06/20 07:00 98.7 F 86 18 128/72 93 L 03/06/20 01:17 97.8 F 91 24 133/76 91 L 03/06/20 00:00 98 20 03/05/20 21:37 98.4 F 98 28 H 160/91 91 L 03/05/20 20:39 97.7 F 92 18 132/87 97 03/05/20 17:36 97.9 F 89 18 131/96 96 Intake and Output 03/05/20 03/06/20 03/06/20 22:59 06:59 14:59 Intake Total 1050 Output Total 187 Balance 1050 -187 Intake: Intake, IV Titration 1050 Amount Levofloxacin 750Mg-D5w 150 Pmx 750 mg In Dextrose/ Water 1 150ml.bag @ 100 mls/hr IVPB ONCE STA Rx#: [id number] Piperacillin-Tazobactam 3 100 .375 gm In Sodium Chloride 0.9% 100 ml @ 25 mls/hr IVPB Q8H [facility] Rx#: [id number] Sodium Chloride 0.9% 1, 800 000 ml @ 100 mls/hr IV . Q10H ONE Rx#:[id number] Output: Post Void Residual 187 Other: Voiding Method Toilet Urinal # Voids 1 3 # Bowel Movements 1 Weight 90.718 kg Results - Lab Results Most recent lab results Calcium 7.6 mg/dL (8.4-10.2) L 03/06/20 09:13 Phosphorus 5.4 mg/dL (2.5-4.5) H 03/05/20 18:13 Magnesium 1.9 mg/dL (1.6-2.3) 03/05/20 18:13 03/06/20 09:13 03/06/20 09:13 Assessment and Plan Plan: Assessment: 1. Acute allograft dysfunction secondary to ATN secondary to infection. Rule out obstructive uropathy. Urinalysis benign. Creatinine 4.07 today. 2. 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 Baseline creatinine near 1. 3. 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 Resolved. 4. Pneumonia maintained on antibiotics. 5. Diabetes mellitus. 6. Volume overload. Plan: Check bladder scan to rule out urinary retention. Check renal ultrasound. Lasix 40 mg IV once today. Maintain Prograf 0.5 mg twice daily. Resume prednisone 20 mg once daily. Check morning Prograf level. Continue to monitor renal function and urine output. Thank you for the consultation. I will continue to follow the patient with you during his hospital stay.
[2020-03-06] MEDS: METOPROLOL TARTRATE 50 MG TAB PO SCH ×2 (10:49→21:09)
[2020-03-06 11:16] LABS: Glucose,Whole Blood 210 mg/dL (75-99)
[2020-03-06] MEDS ORDERED: NON FORMULARY DRUG (Glucerna Shake 120 ML) PO SCH (12:00)
[2020-03-06] MEDS: predniSONE 20 MG TAB PO SCH (12:13)
--- NOTE | 2020-03-06 13:05 | US ---
EXAMINATION TYPE: US renal transplant w dop DATE OF EXAM: 03/06/2020 COMPARISON: 07/19/2017 CLINICAL HISTORY: 79 year-old male acute kidney injury. Abnormal labs EXAM PERFORMED: Grayscale on hopi kidneys and Doppler duplex and Grayscale imaging of the transplan kiersten kidney. FINDINGS: EXAM MEASUREMENTS: [place] Right Kidney: 8.3 x 4.3 x 4.8 cm [place] Left Kidney: 8.5 x 4.3 x 4.4 cm Transplant Kidney: 9.6 x 5.9 x 5.5 cm (versus 10.6 cm on 2017) Location of transplanted kidney: LLQ= Left pelvis ANATOMY: [place] Right Kidney: Hypoechoic crescent seen anterior to kidney. Unchanged from 07/19/2017, probabl y prominent adjacent fat. Kidney appears echogenic with limited visualization. Small in size. Corti keiko thinning. [place] Left Kidney: Hypoechoic crescent seen anterior to kidney. Unchanged from 2017. Kidney appears echogenic with limited visualization. Small in size. Cortical thinning. Cystic lesion seen - 1.2 x 1.3 x 1.0 cm Left lower quadrant Transplant Kidney: Mild pelvicaliectasis. Prominent pyramids seen. Cortical cys t- 1.1 x 1.1 x 0.8 cm --- RI= 0.74 (normal <0.8) Bladder: anechoic, distended Bilateral Jets not seen IMPRESSION: 1. Left lower quadrant transplant kidney. There is fullness of the renal collecting system not seen b ack on 2017. Early developing hydronephrosis difficult to exclude. 2. RI measured at 0.74 (normal <0.8). 3. The hopi kidneys are atretic.
[2020-03-06] MEDS: AMOXIC-POT CLAV 875-125MG 1 EACH TAB PO SCH ×2 (13:28→22:48)
[2020-03-06 16:46] LABS: Glucose,Whole Blood 254 mg/dL (75-99)
[2020-03-06] MEDS: MULTIVITAMINS, THERA 1 EACH TAB PO SCH (17:01)
[2020-03-06 20:55] LABS: Glucose,Whole Blood 285 mg/dL (75-99)
[2020-03-06] MEDS ORDERED: LEVOFLOXACIN 750 MG TAB PO SCH (21:00)
[2020-03-06] MEDS ORDERED: LEVOFLOXACIN 500 MG TAB PO SCH (21:00)
[2020-03-06] MEDS: ATORVASTATIN 20 MG TAB PO SCH (21:08)
[2020-03-06] MEDS: INSULIN DETEMIR (LEVEMIR) 100 UNIT/ML SYR SQ SCH (21:08)
[2020-03-07] MEDS: LEVOTHYROXINE 25 MCG TAB PO SCH (05:24)
[2020-03-07] MEDS: ELTROMBOPAG OLAMINE 25 MG PO SCH (05:26)
[2020-03-07] MEDS: Eltrombopag Olamine [Promacta] 50 MG PO SCH (05:26)
[2020-03-07 07:26] LABS: Glucose,Whole Blood 162 mg/dL (75-99)
[2020-03-07] MEDS: INSULIN ASPART (NovoLOG) 100 UNIT/ML VIAL SQ SCH ×4 (08:09→21:07)
[2020-03-07] MEDS: DULoxetine HCL 60 MG CAPSULE.DR PO SCH (08:10)
[2020-03-07] MEDS: amLODIPine 5 MG TAB PO SCH ×2 (08:10→17:49)
[2020-03-07] MEDS: CALCIUM CARBONATE 500 MG CHEWABLE PO SCH (08:10)
[2020-03-07] MEDS: FINASTERIDE 5 MG TAB PO SCH (08:10)
[2020-03-07] MEDS: METOPROLOL TARTRATE 50 MG TAB PO SCH ×2 (08:10→21:07)
[2020-03-07] MEDS: NYSTATIN 100,000 UNIT/ML SUSP 500,000 UNIT/5 ML CUP PO SCH ×4 (08:11→21:07)
[2020-03-07] MEDS: AMOXIC-POT CLAV 875-125MG 1 EACH TAB PO SCH (08:11)
[2020-03-07] MEDS: TACROLIMUS 0.5 MG CAP PO SCH ×2 (08:12→17:49)
[2020-03-07 08:15] LABS: Calcium 7.6 mg/dL (8.4-10.2); Magnesium 1.9 mg/dL (1.6-2.3); Potassium 4.8 mmol/L (3.5-5.1)
[2020-03-07] MEDS: MAGNESIUM OXIDE 400 MG TAB PO SCH (08:15)
[2020-03-07] MEDS: predniSONE 20 MG TAB PO SCH (08:15)
[2020-03-07] MEDS: PANTOPRAZOLE 40 MG TABLET PO SCH (08:15)
[2020-03-07] MEDS: TAMSULOSIN 0.4 MG CAP.ER.24H PO SCH (08:15)
[2020-03-07] MEDS: traMADol 50 MG TAB PO SCH ×2 (08:15→19:34)
[2020-03-07 12:05] LABS: Glucose,Whole Blood 216 mg/dL (75-99)
[2020-03-07] MEDS: PIPERACILLIN-TAZOBACTAM 3.375 GM in SODIUM CHLORIDE 0.9% 100 ML IVPB SCH ×2 (12:41→23:35)
--- NOTE | 2020-03-07 14:22 | P.PN ---
Subjective Progress Note Date: 03/07/20 Follow-up for acute kidney injury. Renal function worsening. Urine output of 2.2 L in the last 24 hours. Unable to put a conversation as he is forgetful in the middle of the conversation. No nausea vomiting or diarrhea. Objective - Vital Signs Vital signs: Vital Signs Temp 98.2 F 03/07/20 07:00 Pulse 87 03/07/20 07:00 Resp 18 03/07/20 07:00 BP 156/67 03/07/20 07:00 Pulse Ox 95 03/07/20 07:00 Intake & Output 03/06/20 03/07/20 03/07/20 18:59 06:59 18:59 Intake Total 400 Output Total 1627 575 Balance -1627 -175 Intake: Oral 400 Output: Urine 1440 575 Post Void Residual 187 Other: Voiding Method Toilet Toilet Urinal Urinal # Voids 1 # Bowel Movements 1 1 - Exam No acute distress S1-S2 heard Decreased breath sounds Abdomen soft Edema - Labs CBC & Chem 7: 03/06/20 09:13 03/07/20 07:36 Labs: Abnormal Lab Results - Last 24 Hours (Table) 03/06/20 03/06/20 03/07/20 Range/Units 16:44 20:51 07:23 Sodium (137-145) mmol/L BUN (9-20) mg/dL Creatinine (0.66-1.25) mg/dL Glucose (74-99) mg/dL POC Glucose (mg/dL) 254 H 285 H 162 H (75-99) mg/dL Calcium (8.4-10.2) mg/dL 03/07/20 03/07/20 Range/Units 07:36 11:51 Sodium 131 L (137-145) mmol/L BUN 31 H (9-20) mg/dL Creatinine 4.35 H (0.66-1.25) mg/dL Glucose 148 H (74-99) mg/dL POC Glucose (mg/dL) 216 H (75-99) mg/dL Calcium 7.6 L (8.4-10.2) mg/dL Microbiology - Last 24 Hours (Table) 03/05/20 20:20 Blood Culture - Preliminary Blood No Growth after 24 hours Assessment and Plan Assessment: #1 acute allograft dysfunction suspect multifactorial ATN. #2 chronic kidney disease stage II with renal allograft with a baseline creatinine of 0.8-1.0 MG per DL. #3 lower extremity edema #4 pneumonia on antibiotics #5 metabolic acidosis #6 hypervolemic hyponatremia #7 diabetes Plan: #1 renal function continued to worsen. Renal ultrasound concern for hydronephrosis but not clear. #2 urine analysis [place]. #3 increase IV fluids to 75 ML's an hour. #4 continue with Prograf and prednisone. Await Prograf trough levels. #5 bladder scan and strict I's and O's. #6 repeat labs in the morning
[2020-03-07 15:51] LABS: Appearance,Urine Clear (Clear); Color,Urine Yellow; Specific Gravity,Urine 1.005 (1.001-1.035)
[2020-03-07 15:52] LABS: Bilirubin,Urine Negative (Negative); Blood,Urine Negative (Negative); Glucose,Urine (UA) Negative (Negative); Ketones,Urine Negative (Negative); Leukocyte Esterase,Urine Negative (Negative); Nitrite,Urine Negative (Negative); Protein,Urine Negative (Negative); Urobilinogen,Urine <2.0 mg/dL (<2.0)
[2020-03-07 17:11] LABS: Glucose,Whole Blood 336 mg/dL (75-99)
--- NOTE | 2020-03-07 17:34 | PN ---
PROGRESS NOTE DATE OF SERVICE: 03/07/2020. I am covering for Dr. Rosenberg. This 79-year-old gentleman with a past medical history of multiple medical problems being followed by Dr. Rosenberg in the outpatient setting was admitted previously with significant thrombocytopenia which is refractory to steroids and as well as multiple other medical problems. The patient also had renal failure, history of renal transplant. The patient is currently complaining of weakness, lethargy, dehydration. The patient is found to have worsening renal failure. Patient admitted for further evaluation and treatment. Creatinine has apparently worsened to 4.35. Multiple consultants are following the patient including Dr. Man from Nephrology and Dr. Man is considering the possibility of acute tubular necrosis secondary to infection and acute allograft dysfunction. The baseline UA was unremarkable and cultures also negative so far. The patient was started on empiric antibiotics in the form of Levaquin 500 mg q.48 hours. There is no history of fever, rigors or chills. No history of headache, loss of consciousness. Patient is confused. Past medical history reviewed. REVIEW OF SYSTEMS: CARDIOVASCULAR: No angina or palpitations. RESPIRATORY: As mentioned earlier. GI: As mentioned earlier. as mentioned earlier. NERVOUS SYSTEM: No numbness. Otherwise mentioned earlier. CURRENT MEDICATIONS: 1. Tylenol p.r.n. 2. DuoNeb q.i.d. 3. Norvasc. 4. Augmentin. 5. Lipitor. 6. Dulcolax. 7. Tums. 8. Klonopin. 9. Cymbalta. 10.Proscar. 11.NovoLog. 12.Levemir. 13.Levaquin. 14.Synthroid. 15.Milk of Magnesia. 16.Magnesium oxide. 17.Melatonin. 18.Lopressor. 19.Multivitamins. 20.Protonix. 21.Zosyn. 22.Requip. 23.Prograf. 24.Flomax. 25.Ultram. 26.Doses reviewed. PHYSICAL EXAM: Patient is alert, oriented x2. Pulse 87. Blood pressure 146/67, respirations 18, temp 98.2, pulse ox 94% on 2 L. HEENT: Conjunctivae normal. Oral mucosa moist. NECK is no jugular venous distention. No carotid bruit. No lymph node enlargement. CARDIOVASCULAR: S1, S2 muffled. RESPIRATIONS: Breath sounds diminished in the bases. A few scattered rhonchi and crackles. ABDOMEN: Soft, nontender. No mass palpable. LEGS: No edema. No swelling. NERVOUS SYSTEM: Higher functions as mentioned earlier. Moves all four limbs. No focal deficits. LYMPHATICS: No lymph nodes palpable in the neck, axillae or groin. SKIN: No ulcer, no rashes and no bleeding. JOINTS: No active deforming arthropathy. LABS: WBC 8.2, hemoglobin 10.5, sodium 131, creatinine 4.35. ASSESSMENT: 1. Acute allograft dysfunction secondary to acute tubular necrosis, possibly secondary to infection, rule out obstructive uropathy. 2. Chronic kidney disease stage 2 baseline. 3. 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 4. History of pneumonia. 5. Diabetes mellitus type 2. 6. Change in mental status, metabolic encephalopathy, acute on chronic. 7. Diabetes mellitus type 2. 8. Chronic atrial fibrillation. 9. Hypertension. 10.Hyperlipidemia. 11.Hypothyroidism. 12.History of melanoma. 13.History of coronary artery disease, coronary artery bypass grafting. 14.Anxiety, depression. 15.Prostate cancer, on observation. 16.Obesity with body mass of 30.4. 17.Mild hypoalbuminemia with mild protein calorie malnutrition. 18.Hyponatremia possibly hypovolemic. 19.Anemia, normocytic anemia of chronic disease. 20.FULL CODE. RECOMMENDATIONS AND DISCUSSION: In this 79-year-old gentleman who presented with multiple complex medical issues, we will monitor the patient closely. Continue the current medications, management and symptomatic treatment. Monitor the blood sugars closely. Creatinine has worsened compared to admission slightly. There is no evidence of infections already empirically being treated. Cultures negative. I would recommend repeat UA and repeat labs also. Closely monitor. Guarded prognosis because of multiple complex medical issues. Further recommendations to follow. Renal ultrasound was recommended to rule out obstructive uropathy, which showed left lower quadrant transplanted kidney and some fullness in the renal collecting system which was not seen back 2017, early developing hydronephrosis difficult to rule out. We will continue to monitor. Follow the patient closely with Nephrology. See orders for details. MMODL / IJN: [id number] /
[2020-03-07] MEDS: SODIUM CHLORIDE 0.9% 1,000 ML IV SCH ×2 (17:47→23:35)
[2020-03-07] MEDS: MULTIVITAMINS, THERA 1 EACH TAB PO SCH (17:49)
[2020-03-07 21:00] LABS: Glucose,Whole Blood 312 mg/dL (75-99)
[2020-03-07] MEDS: INSULIN DETEMIR (LEVEMIR) 100 UNIT/ML SYR SQ SCH (21:07)
[2020-03-07] MEDS: ATORVASTATIN 20 MG TAB PO SCH (21:07)
[2020-03-07] MEDS: clonazePAM 1 MG TAB PO PRN ×2 (22:00→22:03)
[2020-03-08] MEDS: ELTROMBOPAG OLAMINE 25 MG PO SCH (04:45)
[2020-03-08] MEDS: Eltrombopag Olamine [Promacta] 50 MG PO SCH (04:45)
[2020-03-08] MEDS: LEVOTHYROXINE 25 MCG TAB PO SCH (04:46)
[2020-03-08 07:45] LABS: Glucose,Whole Blood 146 mg/dL (75-99)
[2020-03-08 07:46] LABS: Anisocytosis Slight; Basophils # (A) 0.1 k/uL (0-0.2); Basophils % (A) 1 %; Eosinophils # (A) 0.2 k/uL (0-0.7); Eosinophils % (A) 2 %; HCT 32.7 % (39.0-53.0); HGB 10.2 gm/dL (13.0-17.5); Hypochromasia Slight; Lymphocytes # (A) 0.7 k/uL (1.0-4.8); Lymphocytes % (A) 9 %; MCHC 31.1 g/dL (31.0-37.0); Mean Platelet Volume 8.5; Monocytes # (A) 0.7 k/uL (0-1.0); Monocytes % (A) 10 %; Neutrophils % (A) 77 %; Platelet Count 395 k/uL (150-450); RBC 3.63 m/uL (4.30-5.90); RDW 16.1 % (11.5-15.5); WBC 7.8 k/uL (3.8-10.6)
[2020-03-08 07:58] LABS: Calcium 7.6 mg/dL (8.4-10.2); Potassium 4.6 mmol/L (3.5-5.1)
[2020-03-08] MEDS: predniSONE 20 MG TAB PO SCH (08:08)
[2020-03-08] MEDS: FINASTERIDE 5 MG TAB PO SCH (08:08)
[2020-03-08] MEDS: MAGNESIUM OXIDE 400 MG TAB PO SCH (08:08)
[2020-03-08] MEDS: traMADol 50 MG TAB PO SCH ×2 (08:08→20:31)
[2020-03-08] MEDS: DULoxetine HCL 60 MG CAPSULE.DR PO SCH (08:08)
[2020-03-08] MEDS: PANTOPRAZOLE 40 MG TABLET PO SCH (08:08)
[2020-03-08] MEDS: amLODIPine 5 MG TAB PO SCH ×2 (08:08→17:51)
[2020-03-08] MEDS: CALCIUM CARBONATE 500 MG CHEWABLE PO SCH (08:09)
[2020-03-08] MEDS: TACROLIMUS 0.5 MG CAP PO SCH ×2 (08:09→17:52)
[2020-03-08] MEDS: NYSTATIN 100,000 UNIT/ML SUSP 500,000 UNIT/5 ML CUP PO SCH ×4 (08:09→20:31)
[2020-03-08] MEDS: INSULIN ASPART (NovoLOG) 100 UNIT/ML VIAL SQ SCH ×4 (08:09→20:30)
[2020-03-08] MEDS: METOPROLOL TARTRATE 50 MG TAB PO SCH ×2 (08:09→20:31)
[2020-03-08] MEDS: TAMSULOSIN 0.4 MG CAP.ER.24H PO SCH (08:09)
[2020-03-08 12:09] LABS: Glucose,Whole Blood 175 mg/dL (75-99)
--- NOTE | 2020-03-08 12:11 | P.PN ---
Subjective Progress Note Date: 03/08/20 Follow-up for acute kidney injury. Renal function stable. Urine output of 1 L in the last 24 hours. No nausea vomiting or diarrhea. Objective - Vital Signs Vital signs: Vital Signs Temp 97.7 F 03/08/20 07:00 Pulse 67 03/08/20 07:00 Resp 16 03/08/20 07:00 BP 127/79 03/08/20 07:00 Pulse Ox 92 L 03/08/20 07:00 Intake & Output 03/07/20 03/08/20 03/08/20 18:59 06:59 18:59 Intake Total 225 Output Total 600 390 Balance -600 -165 Intake: Intake, IV Titration 225 Amount Sodium Chloride 0.9% 1, 225 000 ml @ 75 mls/hr IV . [id number] [facility] Rx#:[id number] Output: Urine 600 250 Post Void Residual 140 Other: Voiding Method Toilet Toilet Toilet Urinal Urinal Urinal # Voids 400 4 - Exam No acute distress S1-S2 heard Decreased breath sounds Abdomen soft No Edema - Labs CBC & Chem 7: 03/08/20 07:22 03/08/20 07:22 Labs: Abnormal Lab Results - Last 24 Hours (Table) 03/07/20 03/07/20 03/08/20 Range/Units 16:58 20:59 07:22 RBC (4.30-5.90) m/uL Hgb (13.0-17.5) gm/dL Hct (39.0-53.0) % RDW (11.5-15.5) % Lymphocytes # (1.0-4.8) k/uL Sodium 134 L (137-145) mmol/L BUN 33 H (9-20) mg/dL Creatinine 4.38 H (0.66-1.25) mg/dL Glucose 125 H (74-99) mg/dL POC Glucose (mg/dL) 336 H 312 H (75-99) mg/dL Calcium 7.6 L (8.4-10.2) mg/dL 03/08/20 03/08/20 Range/Units 07:22 07:33 RBC 3.63 L (4.30-5.90) m/uL Hgb 10.2 L (13.0-17.5) gm/dL Hct 32.7 L (39.0-53.0) % RDW 16.1 H (11.5-15.5) % Lymphocytes # 0.7 L (1.0-4.8) k/uL Sodium (137-145) mmol/L BUN (9-20) mg/dL Creatinine (0.66-1.25) mg/dL Glucose (74-99) mg/dL POC Glucose (mg/dL) 146 H (75-99) mg/dL Calcium (8.4-10.2) mg/dL Microbiology - Last 24 Hours (Table) 03/05/20 20:20 Blood Culture - Preliminary Blood No Growth after 48 hours Assessment and Plan Assessment: #1 acute allograft dysfunction suspect multifactorial ATN. #2 chronic kidney disease stage II with renal allograft with a baseline creatinine of 0.8-1.0 MG per DL. #3 lower extremity edema #4 pneumonia on antibiotics #5 metabolic acidosis #6 hypervolemic hyponatremia #7 diabetes Plan: #1 renal function stable. #2 urine analysis Wheeler. #3 continue with IV fluids normal saline at 75 ML's an hour. #4 continue with Prograf and prednisone. Await Prograf trough levels, repeat again in the morning. #5 bladder scan no urinary retention #6 repeat labs in the morning
[2020-03-08] MEDS: FOLIC ACID 1 MG TAB PO SCH (12:12)
[2020-03-08] MEDS: PIPERACILLIN-TAZOBACTAM 3.375 GM in SODIUM CHLORIDE 0.9% 100 ML IVPB SCH ×2 (12:12→23:24)
[2020-03-08] MEDS: THIAMINE 100 MG TAB PO SCH (12:12)
[2020-03-08 17:37] LABS: Glucose,Whole Blood 323 mg/dL (75-99)
[2020-03-08] MEDS: MULTIVITAMINS, THERA 1 EACH TAB PO SCH (17:51)
[2020-03-08] MEDS: SODIUM CHLORIDE 0.9% 1,000 ML IV SCH (18:06)
[2020-03-08 20:17] LABS: Glucose,Whole Blood 378 mg/dL (75-99)
[2020-03-08] MEDS: INSULIN DETEMIR (LEVEMIR) 100 UNIT/ML SYR SQ SCH (20:30)
[2020-03-08] MEDS: LEVOFLOXACIN 500 MG TAB PO SCH (20:31)
[2020-03-08] MEDS: ATORVASTATIN 20 MG TAB PO SCH (20:31)
[2020-03-08] MEDS: clonazePAM 1 MG TAB PO PRN (20:31)
--- NOTE | 2020-03-09 00:31 | PN ---
PROGRESS NOTE DATE OF SERVICE: 03/08/2020 I am covering for Dr. Rosenberg. This 79-year-old gentleman who was admitted with acute allograft dysfunction with acute tubular necrosis is being closely monitored. The patient was slightly confused also. The creatinine is still elevated but at 4.38. Nephrology is following the patient closely. PAST MEDICAL HISTORY: Reviewed. REVIEW OF SYSTEMS: CARDIOVASCULAR SYSTEM: No angina. RESPIRATORY SYSTEM: As mentioned earlier. GI: As mentioned earlier. : As mentioned earlier. NERVOUS SYSTEM: As mentioned earlier. CURRENT MEDICATIONS: Current medications are reviewed and include: 1. Tylenol p.r.n. 2. DuoNeb q.i.d. and p.r.n. 3. Norvasc. 4. Lipitor. 5. Dulcolax. 6. Tums. 7. Klonopin. 8. Cymbalta. 9. Proscar. 10.Folic acid. 11.NovoLog. 12.Levemir. 13.Levaquin. 14.Synthroid. 15.Milk of Magnesia. 16.Magnesium oxide. 17.Melatonin. 18.Lopressor. 19.Multivitamins. Doses are reviewed. PHYSICAL EXAMINATION: Patient is alert and oriented x3. Pulse 112, blood pressure 124/74, respiration 20, temperature 98.2, pulse ox 94% on room air. HEENT: Conjunctivae normal. Oral mucosa moist. NECK: No jugular venous distention. No carotid bruit. No lymph node enlargement. CARDIOVASCULAR: S1, S2 muffled. RESPIRATORY: Breath sounds diminished at the bases. No rhonchi. No crackles. ABDOMEN: Soft, nontender. No mass palpable. LEGS: No edema, no swelling. NERVOUS SYSTEM: No focal deficits. LABS: WBC 7.8, hemoglobin 10.2, sodium 134, creatinine 4.38, BUN is 33. ASSESSMENT: 1. Acute allograft dysfunction secondary to acute tubular necrosis, possibly secondary to urinary tract infection, rule out obstructive uropathy. 2. Chronic kidney disease stage 2 baseline. 3. 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 4. History of pneumonia. 5. Diabetes mellitus type 2. 6. Change in mental status, metabolic encephalopathy, acute on chronic. 7. Diabetes mellitus type 2. 8. Chronic atrial fibrillation. 9. Hypertension. 10.Hyperlipidemia. 11.Hypothyroidism. 12.History of melanoma. 13.History of coronary artery disease, coronary artery bypass grafting. 14.Anxiety, depression. 15.Prostate cancer, on observation. 16.Obesity with body mass index of 30.4. 17.Mild hypoalbuminemia with mild protein calorie malnutrition. 18.Hyponatremia possibly hypervolemic. 19.Anemia, normocytic anemia of chronic disease. 20.FULL CODE. RECOMMENDATIONS AND DISCUSSION: Recommend to continue current medications, continue symptomatic treatment. Otherwise, monitor creatinine closely. Avoid nephrotoxic medications. The output is satisfactory at this point. Guarded prognosis because of multiple complex medical issues. Further recommendations to follow. Dr. Rosenberg will follow tomorrow. MMODL / IJN: [id number] /
[2020-03-09] MEDS: ELTROMBOPAG OLAMINE 25 MG PO SCH (03:30)
[2020-03-09] MEDS: Eltrombopag Olamine [Promacta] 50 MG PO SCH (03:30)
[2020-03-09] MEDS: LEVOTHYROXINE 25 MCG TAB PO SCH (05:11)
[2020-03-09] MEDS: SODIUM CHLORIDE 0.9% 1,000 ML IV SCH ×2 (05:11→19:16)
[2020-03-09 07:38] LABS: Glucose,Whole Blood 139 mg/dL (75-99)
[2020-03-09] MEDS: INSULIN ASPART (NovoLOG) 100 UNIT/ML VIAL SQ SCH ×4 (07:43→20:59)
[2020-03-09 07:57] LABS: Basophils # (A) 0.1 k/uL (0-0.2); Basophils % (A) 1 %; Eosinophils # (A) 0.1 k/uL (0-0.7); Eosinophils % (A) 1 %; HCT 32.8 % (39.0-53.0); HGB 10.3 gm/dL (13.0-17.5); Hypochromasia Slight; Lymphocytes # (A) 0.6 k/uL (1.0-4.8); Lymphocytes % (A) 9 %; MCH 28.4 pg (25.0-35.0); MCHC 31.5 g/dL (31.0-37.0); MCV 90.1 fL (80.0-100.0); Mean Platelet Volume 8.4; Monocytes # (A) 0.7 k/uL (0-1.0); Monocytes % (A) 10 %; Neutrophils # (A) 5.2 k/uL (1.3-7.7); Neutrophils % (A) 76 %; Platelet Count 378 k/uL (150-450); RBC 3.64 m/uL (4.30-5.90); RDW 15.9 % (11.5-15.5); WBC 6.8 k/uL (3.8-10.6)
[2020-03-09 08:08] LABS: Calcium 7.7 mg/dL (8.4-10.2); Potassium 4.6 mmol/L (3.5-5.1)
[2020-03-09] MEDS: CALCIUM CARBONATE 500 MG CHEWABLE PO SCH (08:12)
[2020-03-09] MEDS: traMADol 50 MG TAB PO SCH ×2 (08:12→20:59)
[2020-03-09] MEDS: NYSTATIN 100,000 UNIT/ML SUSP 500,000 UNIT/5 ML CUP PO SCH ×4 (08:12→21:00)
[2020-03-09] MEDS: METOPROLOL TARTRATE 50 MG TAB PO SCH ×2 (08:12→21:00)
[2020-03-09] MEDS: FINASTERIDE 5 MG TAB PO SCH (08:13)
[2020-03-09] MEDS: amLODIPine 5 MG TAB PO SCH ×2 (08:13→17:51)
[2020-03-09] MEDS: predniSONE 20 MG TAB PO SCH (08:13)
[2020-03-09] MEDS: PANTOPRAZOLE 40 MG TABLET PO SCH (08:13)
[2020-03-09] MEDS: TAMSULOSIN 0.4 MG CAP.ER.24H PO SCH (08:13)
[2020-03-09] MEDS: DULoxetine HCL 60 MG CAPSULE.DR PO SCH (08:13)
[2020-03-09] MEDS: TACROLIMUS 0.5 MG CAP PO SCH ×2 (08:13→17:51)
[2020-03-09] MEDS: MAGNESIUM OXIDE 400 MG TAB PO SCH (08:13)
[2020-03-09 12:06] LABS: Glucose,Whole Blood 235 mg/dL (75-99)
[2020-03-09] MEDS: FOLIC ACID 1 MG TAB PO SCH (12:46)
[2020-03-09] MEDS: THIAMINE 100 MG TAB PO SCH (12:46)
[2020-03-09] MEDS: PIPERACILLIN-TAZOBACTAM 3.375 GM in SODIUM CHLORIDE 0.9% 100 ML IVPB SCH ×2 (12:47→22:58)
--- NOTE | 2020-03-09 16:43 | P.PN ---
Subjective Progress Note Date: 03/09/20 This is a 79-year-old gentleman admitted from subacute rehab with increasing weakness, acute renal failure and multiple other medical issues. Maintained on IV fluid hydration as per nephrology. Creatinine decreased to 4.14, hemoglobin 10.3. Patient requesting discharge home when medically ready/PT currently recommending subacute rehab. Presented with some short-term memory deficits- Sensorium significantly improved. Denies chest pain, palpitations or increasing shortness of breath. Denies nausea vomiting or diarrhea. Consuming 75% of diet. Obtain O2 sats in the 90s on room air. Objective - Vital Signs Vital signs: Vital Signs Temp 97.6 F 03/09/20 15:00 Pulse 81 03/09/20 15:00 Resp 16 03/09/20 15:00 BP 123/74 03/09/20 15:00 Pulse Ox 95 03/09/20 15:00 Intake & Output 03/08/20 03/09/20 03/09/20 18:59 06:59 18:59 Intake Total 440 225 400 Output Total 800 450 500 Balance -360 -225 -100 Intake: Intake, IV Titration 225 Amount Sodium Chloride 0.9% 1, 225 000 ml @ 75 mls/hr IV . [id number] [facility] Rx#:[id number] Oral 440 400 Output: Urine 800 450 500 Other: Voiding Method Toilet Toilet Toilet Urinal Urinal Urinal # Voids 2 2 # Bowel Movements 2 - Exam PHYSICAL EXAM: VITAL SIGNS: As above GENERAL: Sitting up in bed, no acute distress HEENT: Conjunctivae normal. eyes normal. NECK: No JVD. No thyroid enlargement. No LNs CARDIOVASCULAR: S1, S2 regular.. No murmur RESPIRATION: Breath sounds diminished in the bases. No rhonchi or crackles. No bronchial breathing. ABDOMEN: Soft, nontender . No guarding. no masses palpable. No ascites, No hepatosplenomegaly.Bowel sounds heard. LEGS: No edema. No clubbing, no cyanosis. PSYCHIATRY: Alert and oriented X3, mood and affect normal. NERVOUS SYSTEM: Cranial N 2-12 grossly normal. Moves all 4 limbs. Diffuse weakness No focal deficits. Strength and sensation grossly intact.. Skin: no rash - Labs CBC & Chem 7: 03/09/20 07:17 03/09/20 07:17 Labs: Abnormal Lab Results - Last 24 Hours (Table) 03/07/20 03/08/20 03/08/20 Range/Units 07:36 17:04 20:15 RBC (4.30-5.90) m/uL Hgb (13.0-17.5) gm/dL Hct (39.0-53.0) % RDW (11.5-15.5) % Lymphocytes # (1.0-4.8) k/uL Sodium (137-145) mmol/L BUN (9-20) mg/dL Creatinine (0.66-1.25) mg/dL Glucose (74-99) mg/dL POC Glucose (mg/dL) 323 H 378 H (75-99) mg/dL Calcium (8.4-10.2) mg/dL Tacrolimus 3.6 L (5.0-20.0) ng/mL 03/09/20 03/09/20 03/09/20 Range/Units 07:17 07:17 07:21 RBC 3.64 L (4.30-5.90) m/uL Hgb 10.3 L (13.0-17.5) gm/dL Hct 32.8 L (39.0-53.0) % RDW 15.9 H (11.5-15.5) % Lymphocytes # 0.6 L (1.0-4.8) k/uL Sodium 134 L (137-145) mmol/L BUN 31 H (9-20) mg/dL Creatinine 4.14 H (0.66-1.25) mg/dL Glucose 117 H (74-99) mg/dL POC Glucose (mg/dL) 139 H (75-99) mg/dL Calcium 7.7 L (8.4-10.2) mg/dL Tacrolimus (5.0-20.0) ng/mL 03/09/20 Range/Units 11:51 RBC (4.30-5.90) m/uL Hgb (13.0-17.5) gm/dL Hct (39.0-53.0) % RDW (11.5-15.5) % Lymphocytes # (1.0-4.8) k/uL Sodium (137-145) mmol/L BUN (9-20) mg/dL Creatinine (0.66-1.25) mg/dL Glucose (74-99) mg/dL POC Glucose (mg/dL) 235 H (75-99) mg/dL Calcium (8.4-10.2) mg/dL Tacrolimus (5.0-20.0) ng/mL Microbiology - Last 24 Hours (Table) 03/05/20 20:20 Blood Culture - Preliminary Blood No Growth after 72 hours Assessment and Plan Assessment: Acute on chronic renal failure II, status post renal transplant. Acute secondary to ATN, multifactorial. 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 Craig History of melanoma Anxiety, depression Chronic back pain Plan: Continue on current medication regime monitoring and symptomatic treatment. Maintain IV fluid hydration, Prograf, steroids as per nephrology. PT/OT currently recommending return to subacute rehab, we'll continue to evaluate. Close monitoring of renal function, electrolytes with repeat labs ordered for a.m. The impression and plan of care has been dictated as directed. : I performed a history and examination of this patient, discussed the same with the dictator. I agree with the dictator's note ,documented as a scribe. Any additional findings or plans will be noted.
[2020-03-09 17:20] LABS: Glucose,Whole Blood 311 mg/dL (75-99)
[2020-03-09] MEDS: MULTIVITAMINS, THERA 1 EACH TAB PO SCH (17:51)
--- NOTE | 2020-03-09 18:44 | PN ---
PROGRESS NOTE Patient is seen for followup for acute kidney injury. He is status post -donor renal transplant in April of 2003. Patient had been on Prograf, prednisone and CellCept, which was initially held secondary to thrombocytopenia, but low-dose Prograf was restarted along with prednisone recently. The patient was admitted to the hospital due to worsening labs and increased weakness. His creatinine had increased to 4.0 mg/dL as outpatient. Previous creatinine was as low as 0.78 on 03/01/2020. Patient's blood pressure was not significantly low at the time of admission. He denies use of any nonsteroidal anti-inflammatory agents prior to admission. The patient's ultrasound of the transplant kidney did show mild fullness. He states that he has had good urine output. The patient is maintained on IV fluids; 24-hour urine output 1250 mL. Serum creatinine is 4.1 today, down from 4.38 yesterday. PHYSICAL EXAMINATION: On examination today, blood pressure was 149/77, heart rate 63 per minute. He is afebrile. examination shows trace edema, bilateral lower extremities. Patient is currently in the shower. That is why his heart and lungs could not be examined. LABS: Sodium 134, potassium 4.6, chloride 104, BUN 31, creatinine 4.14, hemoglobin 10.3 g/dL. ASSESSMENT: 1. Acute kidney injury, acute tubular necrosis. Rule out obstructive uropathy in the transplant kidney. Will proceed with Dubon catheter placement. Continue with IV fluids as well. Renal function is slightly better. Tacrolimus level was not toxic. Continue with the prednisone and the current dose of Prograf. 2. History of thrombocytopenia, currently improved. Platelet count is 378,000. The patient is status post steroids. 3. Pneumonia, maintained on antibiotics. 4. Diabetes. PLAN: Place Dubon catheter. Continue IV fluids. Repeat labs in a.m. UA is completely benign. MMODL / IJN: [id number] /
[2020-03-09 20:31] LABS: Glucose,Whole Blood 311 mg/dL (75-99)
[2020-03-09] MEDS: ATORVASTATIN 20 MG TAB PO SCH (20:59)
[2020-03-09] MEDS: clonazePAM 1 MG TAB PO PRN (21:00)
[2020-03-09] MEDS: INSULIN DETEMIR (LEVEMIR) 100 UNIT/ML SYR SQ SCH (21:00)
[2020-03-10] MEDS: Eltrombopag Olamine [Promacta] 50 MG PO SCH (05:06)
[2020-03-10] MEDS: ELTROMBOPAG OLAMINE 25 MG PO SCH (05:06)
[2020-03-10] MEDS: LEVOTHYROXINE 25 MCG TAB PO SCH (05:47)
[2020-03-10 07:28] LABS: Glucose,Whole Blood 74 mg/dL (75-99)
[2020-03-10] MEDS: INSULIN ASPART (NovoLOG) 100 UNIT/ML VIAL SQ SCH ×4 (07:31→20:59)
[2020-03-10] MEDS: CALCIUM CARBONATE 500 MG CHEWABLE PO SCH (08:20)
[2020-03-10] MEDS: DULoxetine HCL 60 MG CAPSULE.DR PO SCH (08:21)
[2020-03-10] MEDS: METOPROLOL TARTRATE 50 MG TAB PO SCH ×2 (08:21→20:58)
[2020-03-10] MEDS: amLODIPine 5 MG TAB PO SCH ×2 (08:21→17:26)
[2020-03-10] MEDS: TAMSULOSIN 0.4 MG CAP.ER.24H PO SCH (08:21)
[2020-03-10] MEDS: MAGNESIUM OXIDE 400 MG TAB PO SCH (08:21)
[2020-03-10] MEDS: predniSONE 20 MG TAB PO SCH (08:21)
[2020-03-10] MEDS: traMADol 50 MG TAB PO SCH ×2 (08:21→20:58)
[2020-03-10] MEDS: FINASTERIDE 5 MG TAB PO SCH (08:21)
[2020-03-10] MEDS: PANTOPRAZOLE 40 MG TABLET PO SCH (08:21)
[2020-03-10] MEDS: TACROLIMUS 0.5 MG CAP PO SCH (08:24)
[2020-03-10] MEDS: NYSTATIN 100,000 UNIT/ML SUSP 500,000 UNIT/5 ML CUP PO SCH ×4 (08:24→20:58)
[2020-03-10 08:30] LABS: Calcium 7.7 mg/dL (8.4-10.2); Potassium 4.4 mmol/L (3.5-5.1)
[2020-03-10 08:31] LABS: Basophils # (A) 0.1 k/uL (0-0.2); Basophils % (A) 1 %; Eosinophils # (A) 0.2 k/uL (0-0.7); Eosinophils % (A) 2 %; HCT 35.2 % (39.0-53.0); HGB 11.2 gm/dL (13.0-17.5); Hypochromasia Moderate; Lymphocytes % (A) 9 %; MCH 28.7 pg (25.0-35.0); MCHC 31.8 g/dL (31.0-37.0); MCV 90.4 fL (80.0-100.0); Mean Platelet Volume 7.8; Monocytes % (A) 9 %; Neutrophils # (A) 8.6 k/uL (1.3-7.7); Neutrophils % (A) 78 %; Platelet Count 388 k/uL (150-450); RBC 3.89 m/uL (4.30-5.90); RDW 15.9 % (11.5-15.5)
[2020-03-10] MEDS: SODIUM CHLORIDE 0.9% 1,000 ML IV SCH ×2 (11:39→20:59)
[2020-03-10 11:59] LABS: Glucose,Whole Blood 243 mg/dL (75-99)
[2020-03-10] MEDS: THIAMINE 100 MG TAB PO SCH (12:23)
[2020-03-10] MEDS: FOLIC ACID 1 MG TAB PO SCH (12:23)
[2020-03-10] MEDS: PIPERACILLIN-TAZOBACTAM 3.375 GM in SODIUM CHLORIDE 0.9% 100 ML IVPB SCH ×2 (12:23→23:34)
[2020-03-10] MEDS ORDERED: IPRATROPIUM-ALBUTEROL 3 ML NEB INHALATION PRN (12:33)
--- NOTE | 2020-03-10 12:41 | P.PN ---
Subjective Progress Note Date: 03/10/20 This is a 79-year-old gentleman admitted from subacute rehab with increasing weakness, acute renal failure and multiple other medical issues. Maintained on IV fluid hydration as per nephrology. Creatinine decreased to 4.14, hemoglobin 10.3. Patient requesting discharge home when medically ready/PT currently recommending subacute rehab. Presented with some short-term memory deficits- Sensorium significantly improved. Denies chest pain, palpitations or increasing shortness of breath. Denies nausea vomiting or diarrhea. Consuming 75% of diet. Obtain O2 sats in the 90s on room air. 03/10/20 continues on IV fluid hydration, steroids, Prograf, Zosyn. Creatinine trending down to 3.96. PT pending. Afebrile, WBC 11-on steroids. Maintaining O2 sats in the 90s on room air. Denies chest pain, palpitations or increased shortness of breath. Objective - Vital Signs Vital signs: Vital Signs Temp 97.5 F L 03/10/20 06:57 Pulse 68 03/10/20 06:57 Resp 20 03/10/20 06:57 BP 132/73 03/10/20 06:57 Pulse Ox 94 L 03/10/20 06:57 Intake & Output 03/09/20 03/10/20 03/10/20 18:59 06:59 18:59 Intake Total 400 600 360 Output Total 500 1450 900 Balance -100 -850 -540 Intake: Intake, IV Titration 600 Amount Sodium Chloride 0.9% 1, 600 000 ml @ 75 mls/hr IV . [id number] [facility] Rx#:[id number] Oral 400 360 Output: Urine 500 1450 900 Uretheral (Dubon) 900 Other: Voiding Method Toilet Indwelling Catheter Indwelling Catheter Urinal # Voids 1 # Bowel Movements 1 - Exam PHYSICAL EXAM: VITAL SIGNS: As above GENERAL: Sitting up in bed, no acute distress HEENT: Conjunctivae normal. eyes normal. Oral mucosa moist NECK: No JVD. No thyroid enlargement. No LNs CARDIOVASCULAR: S1, S2 regular.No murmur RESPIRATION: Breath sounds diminished in the bases. No rhonchi or crackles. ABDOMEN: Soft, nontender . No guarding. no masses palpable. Bowel sounds heard. LEGS: No edema. No clubbing, no cyanosis. PSYCHIATRY: Alert and oriented X3, mood and affect normal. NERVOUS SYSTEM: Cranial N 2-12 grossly normal. Moves all 4 limbs. Diffuse weakness, No focal deficits. Strength and sensation grossly intact.. Skin: Warm and dry, no rash. - Labs CBC & Chem 7: 03/10/20 07:34 03/10/20 07:34 Labs: Abnormal Lab Results - Last 24 Hours (Table) 03/09/20 03/09/20 03/10/20 Range/Units 17:11 20:29 07:26 WBC (3.8-10.6) k/uL RBC (4.30-5.90) m/uL Hgb (13.0-17.5) gm/dL Hct (39.0-53.0) % RDW (11.5-15.5) % Neutrophils # (1.3-7.7) k/uL BUN (9-20) mg/dL Creatinine (0.66-1.25) mg/dL Glucose (74-99) mg/dL POC Glucose (mg/dL) 311 H 311 H 74 L (75-99) mg/dL Calcium (8.4-10.2) mg/dL 03/10/20 03/10/20 03/10/20 Range/Units 07:34 07:34 11:53 WBC 11.0 H (3.8-10.6) k/uL RBC 3.89 L (4.30-5.90) m/uL Hgb 11.2 L (13.0-17.5) gm/dL Hct 35.2 L (39.0-53.0) % RDW 15.9 H (11.5-15.5) % Neutrophils # 8.6 H (1.3-7.7) k/uL BUN 30 H (9-20) mg/dL Creatinine 3.96 H (0.66-1.25) mg/dL Glucose 66 L (74-99) mg/dL POC Glucose (mg/dL) 243 H (75-99) mg/dL Calcium 7.7 L (8.4-10.2) mg/dL Microbiology - Last 24 Hours (Table) 03/05/20 20:20 Blood Culture - Preliminary Blood No Growth after 96 hours Assessment and Plan Assessment: Acute on chronic renal failure II, status post renal transplant. Acute secondary to ATN, multifactorial. 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 Craig History of melanoma Anxiety, depression Chronic back pain Plan: Continue on current medication regime monitoring and symptomatic treatment. IV fluid hydration, Prograf, steroids as per nephrology. PT. discussed with patient returned to subacute rehab at discharge, patient howie kasper . Close monitoring of renal function, electrolytes with repeat labs ordered for a.m. The impression and plan of care has been dictated as directed. : I performed a history and examination of this patient, discussed the same with the dictator. I agree with the dictator's note ,documented as a scribe. Any additional findings or plans will be noted.
--- NOTE | 2020-03-10 15:52 | P.DS ---
Providers Date of admission: 03/05/20 19:28 Expected date of discharge: 03/10/20 Attending physician: Narinder Rosenberg Consults: 03/05/20 19:27 Consult Physician Routine Consulting Provider: Carolina Wolfe Consult Reason/Comments: arf Do you want consulting provider notified?: Yes Primary care physician: Narinder Rosenberg [facility] Course: final Diagnoses: Acute on chronic renal failure II, status post renal transplant. Acute secondary to ATN, multifactorial,slow to improve. 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 Craig History of melanoma Anxiety, depression Chronic back pain Hospital course:This is a 79-year-old gentleman admitted from subacute rehab with increasing weakness, acute renal failure and multiple other medical issues. Maintained on IV fluid hydration as per nephrology. Creatinine decreased to 4.14, hemoglobin 10.3. Patient requesting discharge home when medically ready/PT currently recommending subacute rehab. Presented with some short-term memory deficits- Sensorium significantly improved. Denies chest pain, palpitations or increasing shortness of breath. Denies nausea vomiting or diarrhea. Consuming 75% of diet. Obtain O2 sats in the 90s on room air. 03/10/20 continues on IV fluid hydration, steroids, Prograf, Zosyn. Creatinine trending down to 3.96. PT pending. Afebrile, WBC 11-on steroids. Maintaining O2 sats in the 90s on room air. Denies chest pain, palpitations or increased shortness of breath. Patient is status post donor renal transplant.Renal function slowly improved, Dr. 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 Valle.Dr. Wolfe discussing with transfer team .patient will be transferred to [facility], in a stable condition with guarded prognosis,pending accepting physician. The impression and plan of care has been dictated as directed. : I performed a history and examination of this patient, discussed the same with the dictator. I agree with the dictator's note ,documented as a scribe. Any additional findings or plans will be noted. Patient Condition at Discharge: Stable Plan - Discharge Summary Discharge Rx Participant: No New Discharge Prescriptions: New predniSONE [Deltasone] 20 mg PO DAILY tab Ipratropium-Albuterol Nebulize [Duoneb 0.5 mg-3 mg/3 ml Soln] 3 ml INHALATION RT-QID ml Ipratropium-Albuterol Nebulize [Duoneb 0.5 mg-3 mg/3 ml Soln] 3 ml INHALATION RT-Q2H PRN ml PRN Reason: Shortness Of Breath Or Wheezing Folic Acid 1 mg PO DAILY@1200 tab Levofloxacin [Levaquin] 500 mg PO Q48H tab INSULIN ASPART (NovoLOG) [NovoLOG (formulary)] 0 unit SQ ACHS vial Tacrolimus [Prograf] 1 mg PO BID@0800,1700 cap rOPINIRole HCL [Requip] 0.25 mg PO HS tab Thiamine [Vitamin B-1] 100 mg PO DAILY@1200 tab Piperacillin-Tazobactam [Zosyn] 3.375 gm IVPB Q12H vial Continue Finasteride [Proscar] 5 mg PO DAILY@0800 Tamsulosin HCl [Flomax] 0.4 mg PO DAILY@0800 DULoxetine HCL [Cymbalta] 120 mg PO DAILY@0800 Multivitamins, Thera [Multivitamin (formulary)] 1 tab PO DAILY@1700 Atorvastatin Calcium [Lipitor] 20 mg PO HS@2100 Levothyroxine Sodium [Levoxyl] 25 mcg PO DAILY@0600 amLODIPine [Norvasc] 5 mg PO BID@0800,1700 Vit C/E/Zn/Coppr/Lutein/Zeaxan [Preservision Areds 2 Softgel] 1 cap PO DAILY@0800 Acetaminophen Tab [Tylenol] 650 mg PO Q6HR PRN tab PRN Reason: Fever And/ Or Pain Pantoprazole [Protonix] 40 mg PO DAILY@0800 Eltrombopag Olamine [Promacta] 50 mg PO DAILY@0600 Calcium Carbonate [Tums] 1,000 mg PO DAILY@0800 Eltrombopag Olamine [Promacta] 25 mg PO DAILY@0600 Nystatin 100,000 Unit/ml Susp [Mycostatin Oral Susp] 500,000 unit PO QID ml clonazePAM [KlonoPIN] 1 - 2 mg PO HS PRN #6 tab PRN Reason: Anxiety bisacodyL [Bisacodyl] 10 mg RECTAL DAILY PRN PRN Reason: Constipation traMADol HCL 50 mg PO BID@0800,2000 Metoprolol Tartrate [Lopressor] 50 mg PO Q12H Glucerna Shake 120 ml PO BID@1200,1700 Magnesium Oxide [Mag-Ox] 400 mg PO DAILY@0800 Insulin Detemir (Levemir) [Levemir] 12 unit SQ HS@2100 Magnesium Hydroxide [Milk of Magnesia Concentrate] 7,200 mg PO Q48H PRN PRN Reason: Constipation Discontinued Tacrolimus [Prograf] 0.5 mg PO BID@0800,1700 Na Phos,M-B/Na Phos,Di-Ba [Fleet Adult] 133 ml RECTAL DAILY PRN PRN Reason: Constipation INSULIN ASPART (NovoLOG) [NovoLOG (formulary)] See Protocol SQ ACHS Amoxicillin/Potassium Clav [Augmentin 875-125 Tablet] 1 tab PO Q12H No Action Melatonin 3 mg PO HS PRN PRN Reason: Insomnia Discharge Medication List Finasteride [Proscar] 5 mg PO DAILY@0800 02/09/17 [History] Tamsulosin HCl [Flomax] 0.4 mg PO DAILY@0800 02/09/17 [History] DULoxetine HCL [Cymbalta] 120 mg PO DAILY@0800 04/19/18 [History] Multivitamins, Thera [Multivitamin (formulary)] 1 tab PO DAILY@1700 12/31/18 [History] Atorvastatin Calcium [Lipitor] 20 mg PO HS@2100 10/14/19 [History] Levothyroxine Sodium [Levoxyl] 25 mcg PO DAILY@0600 12/18/19 [History] Vit C/E/Zn/Coppr/Lutein/Zeaxan [Preservision Areds 2 Softgel] 1 cap PO DA NIKKI@0800 12/18/19 [History] amLODIPine [Norvasc] 5 mg PO BID@0800,1700 12/18/19 [History] Acetaminophen Tab [Tylenol] 650 mg PO Q6HR PRN tab 12/24/19 [Rx] Calcium Carbonate [Tums] 1,000 mg PO DAILY@0800 12/28/19 [History] Eltrombopag Olamine [Promacta] 50 mg PO DAILY@0600 12/28/19 [History] Pantoprazole [Protonix] 40 mg PO DAILY@0812/28/19 [History] Eltrombopag Olamine [Promacta] 25 mg PO DAILY@0600 02/23/20 [History] Nystatin 100,000 Unit/ml Susp [Mycostatin Oral Susp] 500,000 unit PO QID ml 03/02/20 [Rx] clonazePAM [KlonoPIN] 1 - 2 mg PO HS PRN #6 tab 03/02/20 [Rx] Glucerna Shake 120 ml PO BID@1200,1700 03/05/20 [History] Insulin Detemir (Levemir) [Levemir] 12 unit SQ HS@2100 03/05/20 [History] Magnesium Hydroxide [Milk of Magnesia Concentrate] 7,200 mg PO Q48H PRN 03/05/20 [History] Magnesium Oxide [Mag-Ox] 400 mg PO DAILY@0800 03/05/20 [History] Melatonin 3 mg PO HS PRN 03/05/20 [History] Metoprolol Tartrate [Lopressor] 50 mg PO Q12H 03/05/20 [History] bisacodyL [Bisacodyl] 10 mg RECTAL DAILY PRN 03/05/20 [History] traMADol HCL 50 mg PO BID@0800,2000 03/05/20 [History] Folic Acid 1 mg PO DAILY@1200 tab 03/10/20 [Rx] INSULIN ASPART (NovoLOG) [NovoLOG (formulary)] 0 unit SQ ACHS vial 03/10/20 [Rx] Ipratropium-Albuterol Nebulize [Duoneb 0.5 mg-3 mg/3 ml Soln] 3 ml INHALATION RT-Q2H PRN ml 03/10/20 [Rx] Ipratropium-Albuterol Nebulize [Duoneb 0.5 mg-3 mg/3 ml Soln] 3 ml INHALATION RT-QID ml 03/10/20 [Rx] Levofloxacin [Levaquin] 500 mg PO Q48H tab 03/10/20 [Rx] Piperacillin-Tazobactam [Zosyn] 3.375 gm IVPB Q12H vial 03/10/20 [Rx] Tacrolimus [Prograf] 1 mg PO BID@0800,1700 cap 03/10/20 [Rx] Thiamine [Vitamin B-1] 100 mg PO DAILY@1200 tab 03/10/20 [Rx] predniSONE [Deltasone] 20 mg PO DAILY tab 03/10/20 [Rx] rOPINIRole HCL [Requip] 0.25 mg PO HS tab 03/10/20 [Rx] Follow up Appointment(s)/Referral(s): Belinda Posey, [NON-STAFF] - As Needed Narinder Rosenberg DO [Primary Care Provider] - 1 Week Activity/Diet/Wound Care/Special Instructions: transfer to [facility], Clinical Data Abstractor Dr. Valle Discharge Disposition: OTHER INSTITUTION NOT DEFINED
[2020-03-10] MEDS: IPRATROPIUM-ALBUTEROL 3 ML NEB INHALATION SCH ×2 (15:54→20:40)
[2020-03-10 16:46] LABS: Glucose,Whole Blood 255 mg/dL (75-99)
[2020-03-10] MEDS: MULTIVITAMINS, THERA 1 EACH TAB PO SCH (17:26)
[2020-03-10] MEDS: TACROLIMUS 1 MG CAP PO SCH (17:26)
--- NOTE | 2020-03-10 18:17 | PN ---
ADDENDUM Review of patient's chart shows he was treated with Vancomycin on his admission 10 days ago for pneumonia. Also received Levaquin. Vanco level was 21 on 02/29/20. Cr began to increase from 0.8 on 02/29/20 to 1.9 on 03/02/20. BP also may have been low at that time. Therefore, there is concern for MARCEL from Vancomycin toxicity as well. Low suspicion for AIN due to completely benign U/A. Nevertheless, I will treat emperically for possible rejection until transfer to [facility]. PROGRESS NOTE Patient is seen for followup for acute kidney injury and acute allograft nephropathy. He was admitted to the hospital with serum creatinine of about 4 mg/dL, up from a previous creatinine of about 0.7 to 1 mg/dL. His UA is completely benign. Currently patient is not hypotensive. He is maintained on IV fluids. There is some improvement in renal function; however, the creatinine remains elevated. Some fullness was noted in the transplant kidney on ultrasound; therefore Dubon catheter was placed yesterday. The patient has had good urine output. He denies any other complaints. Prograf level was 3.6. Patient is maintained on prednisone as well. PHYSICAL EXAMINATION: On examination today, blood pressure is 130/72, heart rate 66 per minute. He is afebrile. EXAMINATION OF THE HEART: S1 and S2. EXAMINATION OF LUNGS: Bilateral breath sounds are heard. ABDOMEN: Soft, non-tender. Examination of lower extremities shows edema trace bilaterally. FIRE ALARM TECHNICIAN exam is grossly intact. LABS: Labs show sodium 137, potassium 4.4, chloride 107, BUN 30, serum creatinine 3.9, hemoglobin 11.2 g/dL. ASSESSMENT: 1. Acute kidney injury in a transplant kidney. Initial suspicion was volume depletion versus obstructive uropathy, given the fullness on the transplant ultrasound. 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 Therefore I will transfer the patient to [facility]. He will need a transplant kidney biopsy. The UA is completely clean. There is no evidence of hypotension and patient is not on any nephrotoxic medications. His Prograf level was 3.6. I will increase the tacrolimus to 1 mg twice a day. Patient has been maintained on prednisone throughout this time when his immunosuppression was decreased. 2. Status post -donor transplant in 2002 with baseline creatinine about 0.8 to 0.9 mg/dL. 3. Recent pneumonia during hospitalization in the early part of February of 2020. PLAN: Will discuss with primary regarding transfer of patient to [facility] for transplant kidney biopsy. Continue with Dubon catheter. Continue with IV fluids for now. Increase Prograf to 1 mg twice a day. MMODL / IJN: [id number] / [facility]
[2020-03-10 20:18] LABS: Glucose,Whole Blood 315 mg/dL (75-99)
[2020-03-10] MEDS: ATORVASTATIN 20 MG TAB PO SCH (20:57)
[2020-03-10] MEDS: LEVOFLOXACIN 500 MG TAB PO SCH (20:58)
[2020-03-10] MEDS: INSULIN DETEMIR (LEVEMIR) 100 UNIT/ML SYR SQ SCH (20:59)
[2020-03-10] MEDS: clonazePAM 1 MG TAB PO PRN (21:05)
[2020-03-11] MEDS: ELTROMBOPAG OLAMINE 25 MG PO SCH (05:40)
[2020-03-11] MEDS: Eltrombopag Olamine [Promacta] 50 MG PO SCH (05:40)
[2020-03-11] MEDS: LEVOTHYROXINE 25 MCG TAB PO SCH (05:45)
[2020-03-11 06:50] LABS: Glucose,Whole Blood 310 mg/dL (75-99)
[2020-03-11 07:22] LABS: Calcium 7.6 mg/dL (8.4-10.2); Potassium 5.2 mmol/L (3.5-5.1)
[2020-03-11] MEDS: CALCIUM CARBONATE 500 MG CHEWABLE PO SCH (07:25)
[2020-03-11] MEDS: amLODIPine 5 MG TAB PO SCH ×2 (07:25→16:52)
[2020-03-11] MEDS: INSULIN ASPART (NovoLOG) 100 UNIT/ML VIAL SQ SCH ×4 (07:25→21:29)
[2020-03-11] MEDS: DULoxetine HCL 60 MG CAPSULE.DR PO SCH (07:25)
[2020-03-11] MEDS: FINASTERIDE 5 MG TAB PO SCH (07:26)
[2020-03-11] MEDS: PANTOPRAZOLE 40 MG TABLET PO SCH (07:26)
[2020-03-11] MEDS: TAMSULOSIN 0.4 MG CAP.ER.24H PO SCH (07:26)
[2020-03-11] MEDS: TACROLIMUS 1 MG CAP PO SCH ×2 (07:26→16:52)
[2020-03-11] MEDS: MAGNESIUM OXIDE 400 MG TAB PO SCH (07:26)
[2020-03-11] MEDS: NYSTATIN 100,000 UNIT/ML SUSP 500,000 UNIT/5 ML CUP PO SCH ×4 (07:27→21:29)
[2020-03-11] MEDS: traMADol 50 MG TAB PO SCH ×2 (07:27→21:28)
[2020-03-11] MEDS: predniSONE 20 MG TAB PO SCH (07:27)
[2020-03-11] MEDS: METOPROLOL TARTRATE 50 MG TAB PO SCH ×2 (07:28→21:28)
[2020-03-11] MEDS: IPRATROPIUM-ALBUTEROL 3 ML NEB INHALATION SCH ×4 (09:39→19:55)
[2020-03-11 11:27] LABS: Glucose,Whole Blood 291 mg/dL (75-99)
[2020-03-11] MEDS: THIAMINE 100 MG TAB PO SCH (12:03)
[2020-03-11] MEDS: FOLIC ACID 1 MG TAB PO SCH (12:03)
[2020-03-11] MEDS: PIPERACILLIN-TAZOBACTAM 3.375 GM in SODIUM CHLORIDE 0.9% 100 ML IVPB SCH ×2 (12:03→23:21)
--- NOTE | 2020-03-11 12:36 | P.PN ---
Subjective Progress Note Date: 03/11/20 This is a 79-year-old gentleman admitted from subacute rehab with increasing weakness, acute renal failure and multiple other medical issues. Maintained on IV fluid hydration as per nephrology. Creatinine decreased to 4.14, hemoglobin 10.3. Patient requesting discharge home when medically ready/PT currently recommending subacute rehab. Presented with some short-term memory deficits- Sensorium significantly improved. Denies chest pain, palpitations or increasing shortness of breath. Denies nausea vomiting or diarrhea. Consuming 75% of diet. Obtain O2 sats in the 90s on room air. 03/10/20 continues on IV fluid hydration, steroids, Prograf, Zosyn. Creatinine trending down to 3.96. PT pending. Afebrile, WBC 11-on steroids. Maintaining O2 sats in the 90s on room air. Denies chest pain, palpitations or increased shortness of breath. 03/11/[address] 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 Valle, related to slow improvement in renal function with possible rejection in a donor renal transplant patient who is immunosuppression was decreased a few months ago secondary to thrombocytopenia. Transfer initiated, bed pending. Empirically treated for possible rejection. Prograf increased .This morning creatinine continues to improve down to 3.[address] Wolfe canceled transfer. Potassium 5.2. Maintain IV fluid hydration. Continues on antibiotics of Zosyn, afebrile. Denies chest pain, palpitations or shortness of breath. Objective - Vital Signs Vital signs: Vital Signs Temp 97.6 F 03/11/20 07:00 Pulse 67 03/11/20 07:00 Resp 18 03/11/20 07:00 BP 139/79 03/11/20 07:00 Pulse Ox 97 03/11/20 07:00 Intake & Output 03/10/20 03/11/20 03/11/20 18:59 06:59 18:59 Intake Total 600 Output Total 2175 1900 401 Balance -157 -1899 -401 Intake: Oral 600 Output: Urine 2174 1900 401 Uretheral (Dubon) 1550 1000 Other: Voiding Method Indwelling Catheter Indwelling Catheter Indwelling Catheter # Bowel Movements 0 1 - Exam PHYSICAL EXAM: VITAL SIGNS: As above GENERAL: Sitting up in bed, no acute distress HEENT: Conjunctivae normal. eyes normal. Oral mucosa moist NECK: No JVD. No thyroid enlargement. No LNs CARDIOVASCULAR: S1, S2 regular.No murmur RESPIRATION: Breath sounds diminished in the bases. No rhonchi or crackles. No wheezing. ABDOMEN: Soft, nontender . No guarding. no masses palpable. Bowel sounds heard. LEGS: No edema. No clubbing, no cyanosis. PSYCHIATRY: Alert and oriented X3, mood and affect normal. NERVOUS SYSTEM: Cranial N 2-12 grossly normal. Moves all 4 limbs. Diffuse weakness, No focal deficits. Strength and sensation grossly intact.. Skin: Warm and dry, no rash. - Labs CBC & Chem 7: 03/10/20 07:34 03/11/20 06:44 Labs: Abnormal Lab Results - Last 24 Hours (Table) 03/09/20 03/10/20 03/10/20 Range/Units 07:17 11:53 16:45 Sodium (137-145) mmol/L Potassium (3.5-5.1) mmol/L Carbon Dioxide (22-30) mmol/L BUN (9-20) mg/dL Creatinine (0.66-1.25) mg/dL Glucose (74-99) mg/dL POC Glucose (mg/dL) 243 H 255 H (75-99) mg/dL Calcium (8.4-10.2) mg/dL Tacrolimus 3.2 L (5.0-20.0) ng/mL 03/10/20 03/11/20 03/11/20 Range/Units 20:16 06:44 06:46 Sodium 134 L (137-145) mmol/L Potassium 5.2 H (3.5-5.1) mmol/L Carbon Dioxide 20 L (22-30) mmol/L BUN 31 H (9-20) mg/dL Creatinine 3.40 H (0.66-1.25) mg/dL Glucose 300 H (74-99) mg/dL POC Glucose (mg/dL) 315 H 310 H (75-99) mg/dL Calcium 7.6 L (8.4-10.2) mg/dL Tacrolimus (5.0-20.0) ng/mL 03/11/20 Range/Units 11:25 Sodium (137-145) mmol/L Potassium (3.5-5.1) mmol/L Carbon Dioxide (22-30) mmol/L BUN (9-20) mg/dL Creatinine (0.66-1.25) mg/dL Glucose (74-99) mg/dL POC Glucose (mg/dL) 291 H (75-99) mg/dL Calcium (8.4-10.2) mg/dL Tacrolimus (5.0-20.0) ng/mL Microbiology - Last 24 Hours (Table) 03/05/20 20:20 Blood Culture - Preliminary Blood No Growth after 120 hours Assessment and Plan Assessment: Acute on chronic renal failure II, status post renal transplant. Acute secondary to ATN, multifactorial, concern for potential rejection-transfer initiated,; transfer canceled by nephrology with continued improvement. 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 Craig History of melanoma Anxiety, depression Chronic back pain Plan: Continue on current medication regime monitoring and symptomatic treatment. As mentioned above ,transfer canceled as per nephrology with continued improvement in renal function. IV fluid hydration, Prograf, steroids as per nephrology. Maintain IV antibiotics. PT. Close monitoring of renal function, electrolytes with repeat labs ordered for a.m. The impression and plan of care has been dictated as directed. : I performed a history and examination of this patient, discussed the same with the dictator. I agree with the dictator's note ,documented as a scribe. Any additional findings or plans will be noted.
[2020-03-11 14:11] VITALS: BMI 30.4
--- NOTE | 2020-03-11 14:30 | XR ---
EXAMINATION TYPE: XR chest 2V DATE OF EXAM: 03/11/2020 COMPARISON: March 06, 2020 HISTORY: Shortness of breath TECHNIQUE: Frontal and lateral views of the chest are obtained. FINDINGS: Scattered senescent parenchymal changes noted. Hyperinflation compatible with COPD. Persistent patchy perihilar and basilar infiltrates likely on the basis of pneumonia. Clinical correl ation and follow-up until resolution advised. Heart size is stable. Mediastinal structures are stable and grossly unremarkable. No evidence for hilar prominence. Degenerative changes dorsal spine. IMPRESSION: 1. Persistent patchy perihilar and basilar infiltrates likely on the basis of pneumonia. Clinical cor relation and follow-up until resolution advised.
[2020-03-11 16:39] LABS: Glucose,Whole Blood 326 mg/dL (75-99)
[2020-03-11] MEDS: MULTIVITAMINS, THERA 1 EACH TAB PO SCH (16:52)
[2020-03-11] MEDS: SODIUM CHLORIDE 0.9% 1,000 ML IV SCH ×2 (19:00→23:21)
[2020-03-11 20:41] LABS: Glucose,Whole Blood 403 mg/dL (75-99)
--- NOTE | 2020-03-11 20:46 | PN ---
PROGRESS NOTE Patient is seen for followup for acute kidney injury, most likely related to vancomycin toxicity. The patient has been maintained on IV fluids. There was concern for rejection. He did receive a dose of Solu-Medrol yesterday. The plan was to transfer the patient to [facility]. However, upon further discussion, since there will not be any major intervention even if there is rejection, and in view of improvement in renal function, it is decided to hold the transfer and patient will be managed here. He is comfortable, awake, not in any acute distress. Blood pressure is 139/77, heart rate 62 per minute. He is afebrile. EXAMINATION OF THE HEART: S1 and S2. EXAMINATION OF LUNGS: breath sounds are heard. ABDOMEN: Soft, non-tender. Examination of lower extremities shows no significant edema. FUR DRY CLEANER exam is grossly intact. LABS: Labs show sodium 134, potassium 5.2, chloride 104. CO2 is 20, BUN 31, creatinine 3.4 mg/dL. ASSESSMENT: 1. Acute kidney injury in transplant kidney, most likely acute tubular necrosis and vancomycin toxicity since last admission. There was concern for possible rejection. Patient did receive a dose of Solu-Medrol yesterday. He is back on his immunosuppressive medications. Continue to monitor renal function closely. Even if there is rejection, patient is not a candidate for high-dose immunosuppressive therapy for rejection, given his recent thrombocytopenia and advanced age. We will continue to manage him here and hold off on transplant biopsy for now. Patient will follow up with Transplant Nephrology post discharge. 2. Hypertension, currently controlled. 3. Immune thrombocytopenia, now resolved. Patient remains on Promacta. 4. Status post -donor transplant 2002. Baseline creatinine about 0.9 to 1 mg/dL. PLAN: Continue with Prograf, current dose of prednisone, which is a slightly higher dose, and maintain resumed current dose of CellCept. Repeat labs in a.m. Check chest x-ray. Increase IV fluids back to about 75 mL, as patient's urine output was on the lower side overnight. MMODL / IJN: [id number] /
[2020-03-11] MEDS: clonazePAM 1 MG TAB PO PRN (21:28)
[2020-03-11] MEDS: ATORVASTATIN 20 MG TAB PO SCH (21:28)
[2020-03-11] MEDS: INSULIN DETEMIR (LEVEMIR) 100 UNIT/ML SYR SQ SCH (21:29)
[2020-03-12] MEDS: ELTROMBOPAG OLAMINE 25 MG PO SCH (05:44)
[2020-03-12] MEDS: Eltrombopag Olamine [Promacta] 50 MG PO SCH (05:44)
[2020-03-12] MEDS: LEVOTHYROXINE 25 MCG TAB PO SCH (05:54)
[2020-03-12 07:33] LABS: Calcium 7.6 mg/dL (8.4-10.2); Potassium 4.9 mmol/L (3.5-5.1)
[2020-03-12 07:38] LABS: Glucose,Whole Blood 247 mg/dL (75-99)
[2020-03-12] MEDS: traMADol 50 MG TAB PO SCH ×2 (07:50→21:23)
[2020-03-12] MEDS: predniSONE 20 MG TAB PO SCH (07:50)
[2020-03-12] MEDS: CALCIUM CARBONATE 500 MG CHEWABLE PO SCH (07:50)
[2020-03-12] MEDS: MAGNESIUM OXIDE 400 MG TAB PO SCH (07:50)
[2020-03-12] MEDS: PANTOPRAZOLE 40 MG TABLET PO SCH (07:51)
[2020-03-12] MEDS: DULoxetine HCL 60 MG CAPSULE.DR PO SCH (07:51)
[2020-03-12] MEDS: amLODIPine 5 MG TAB PO SCH ×2 (07:51→17:17)
[2020-03-12] MEDS: FINASTERIDE 5 MG TAB PO SCH (07:51)
[2020-03-12] MEDS: NYSTATIN 100,000 UNIT/ML SUSP 500,000 UNIT/5 ML CUP PO SCH ×4 (07:52→21:23)
[2020-03-12] MEDS: TAMSULOSIN 0.4 MG CAP.ER.24H PO SCH (07:52)
[2020-03-12] MEDS: INSULIN ASPART (NovoLOG) 100 UNIT/ML VIAL SQ SCH ×4 (07:52→23:43)
[2020-03-12] MEDS: METOPROLOL TARTRATE 50 MG TAB PO SCH ×2 (07:52→21:23)
[2020-03-12] MEDS: TACROLIMUS 1 MG CAP PO SCH ×2 (07:53→17:17)
[2020-03-12] MEDS: IPRATROPIUM-ALBUTEROL 3 ML NEB INHALATION SCH ×4 (08:15→21:07)
[2020-03-12 11:26] LABS: Glucose,Whole Blood 131 mg/dL (75-99)
[2020-03-12] MEDS: THIAMINE 100 MG TAB PO SCH (12:03)
[2020-03-12] MEDS: FOLIC ACID 1 MG TAB PO SCH (12:03)
[2020-03-12] MEDS: PIPERACILLIN-TAZOBACTAM 3.375 GM in SODIUM CHLORIDE 0.9% 100 ML IVPB SCH (12:03)
--- NOTE | 2020-03-12 13:33 | P.PN ---
Subjective Progress Note Date: 03/12/20 This is a 79-year-old gentleman admitted from subacute rehab with increasing weakness, acute renal failure and multiple other medical issues. Maintained on IV fluid hydration as per nephrology. Creatinine decreased to 4.14, hemoglobin 10.3. Patient requesting discharge home when medically ready/PT currently recommending subacute rehab. Presented with some short-term memory deficits- Sensorium significantly improved. Denies chest pain, palpitations or increasing shortness of breath. Denies nausea vomiting or diarrhea. Consuming 75% of diet. Obtain O2 sats in the 90s on room air. 03/10/20 continues on IV fluid hydration, steroids, Prograf, Zosyn. Creatinine trending down to 3.96. PT pending. Afebrile, WBC 11-on steroids. Maintaining O2 sats in the 90s on room air. Denies chest pain, palpitations or increased shortness of breath. 03/11/[address] Wolfe [place] [facility]'s own medical staff services manager Dr. Valle, related to slow improvement in renal function with possible rejection in a donor renal transplant patient who is immunosuppression was decreased a few months ago secondary to thrombocytopenia. Transfer initiated, bed pending. Empirically treated for possible rejection. Prograf increased .This morning creatinine continues to improve down to 3.[address] Wolfe canceled transfer. Potassium 5.2. Maintain IV fluid hydration. Continues on antibiotics of Zosyn, afebrile. Denies chest pain, palpitations or shortness of breath. 03/12/2020 renal function continues to improve down to 3.18. Chest x-ray noted, clinically asymptomatic .Denies cough or congestion. Afebrile. Denies chest pain, palpitations or shortness of breath. Objective - Vital Signs Vital signs: Vital Signs Temp 98.7 F 03/12/20 07:02 Pulse 79 03/12/20 07:02 Resp 18 03/12/20 07:02 BP 145/78 03/12/20 07:02 Pulse Ox 94 L 03/12/20 07:02 Intake & Output 03/11/20 03/12/20 03/12/20 18:59 06:59 18:59 Output Total 851 800 Balance -851 -800 Weight 90.718 kg Output: Urine 851 800 Other: Voiding Method Indwelling Catheter Indwelling Catheter Indwelling Catheter # Bowel Movements 1 - Exam PHYSICAL EXAM: VITAL SIGNS: As above GENERAL: Sitting up in bed, no acute distress HEENT: Conjunctivae normal. eyes normal. Oral mucosa moist NECK: No JVD. No thyroid enlargement. No LNs CARDIOVASCULAR: S1, S2 regular.No murmur RESPIRATION: Breath sounds diminished in the bases. No rhonchi, crackles or wheezing. ABDOMEN: Soft, nontender . No guarding. no masses palpable. Bowel sounds heard. LEGS: No edema. No clubbing, no cyanosis. PSYCHIATRY: Alert and oriented X3, mood and affect normal. NERVOUS SYSTEM: Cranial N 2-12 grossly normal. Moves all 4 limbs. Diffuse weakness, No focal deficits. Strength and sensation grossly intact.. Skin: Warm and dry, no rash. - Labs CBC & Chem 7: 03/10/20 07:34 03/12/20 06:35 Labs: Abnormal Lab Results - Last 24 Hours (Table) 03/11/20 03/11/20 03/11/20 Range/Units 11:25 16:37 20:40 BUN (9-20) mg/dL Creatinine (0.66-1.25) mg/dL Glucose (74-99) mg/dL POC Glucose (mg/dL) 291 H 326 H 403 H (75-99) mg/dL Calcium (8.4-10.2) mg/dL 03/12/20 03/12/20 Range/Units 06:35 07:05 BUN 36 H (9-20) mg/dL Creatinine 3.18 H (0.66-1.25) mg/dL Glucose 206 H (74-99) mg/dL POC Glucose (mg/dL) 247 H (75-99) mg/dL Calcium 7.6 L (8.4-10.2) mg/dL Microbiology - Last 24 Hours (Table) 03/05/20 20:20 Blood Culture - Final Blood No Growth after 144 hours Assessment and Plan Assessment: Acute on chronic renal failure II, status post renal transplant. Acute secondary to ATN, multifactorial, concern for potential rejection-transfer initiated,; transfer canceled by nephrology with continued improvement. 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 Craig History of melanoma Anxiety, depression Chronic back pain Plan: Continue on current medication regime monitoring and symptomatic treatment. Continue IV fluid hydration, Prograf, steroids as per nephrology. IV antibiotics. PT. Close monitoring of renal function, electrolytes with repeat labs ordered for a.m. discharge planning in progress for subacute rehab pending nephrology clearance. The impression and plan of care has been dictated as directed. : I performed a history and examination of this patient, discussed the same with the dictator. I agree with the dictator's note ,documented as a scribe. Any additional findings or plans will be noted.
--- NOTE | 2020-03-12 16:53 | PN ---
PROGRESS NOTE Patient is seen for followup for acute kidney injury in transplant kidney. It looks like patient has some degree of vancomycin toxicity versus ATN from last hospitalization and pneumonia. There was concern about possible rejection, and patient did receive a dose of Solu-Medrol. This was mainly because recently he had a decrease in his immunosuppression due to underlying immune thrombocytopenia. Serum creatinine continues to improve. It is down to 3.1 now with peak at about 4.3 mg/dL. Patient has an indwelling Dubon catheter. Urine output for 24 hours documented at 4 L. PHYSICAL EXAMINATION: Currently patient is comfortable. Blood pressure 145/78, heart rate 79 per minute. He is afebrile. EXAMINATION OF THE HEART: S1 and S2. EXAMINATION OF LUNGS: Decreased breath sounds at bases. ABDOMEN: Soft, non-tender. Transplant kidney is non-tender. Examination of lower extremities shows trace edema bilaterally. 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 LABS: Labs show sodium 137, potassium 4.9, chloride 105, BUN 36, creatinine 3.18, calcium 7.6. ASSESSMENT: 1. Acute kidney injury, acute tubular necrosis versus vancomycin toxicity, currently improving. There was concern about possible acute rejection, although this is less likely. Patient did receive one dose of Solu-Medrol 2 days ago. He is back on his immunosuppression currently. Prednisone dose was increased slightly. 2. Immune thrombocytopenia, currently resolved. 3. Status post -donor transplant in 2002. Baseline creatinine about 1.0 mg/dL. PLAN: Continue with IV fluids. Encourage increased oral intake. Continue immunosuppression. Repeat labs in a.m. Hopefully patient could be discharged over the weekend if he continues to remain stable. MMODL / IJN: [id number] /
[2020-03-12 16:54] LABS: Glucose,Whole Blood 306 mg/dL (75-99)
[2020-03-12] MEDS: MULTIVITAMINS, THERA 1 EACH TAB PO SCH (17:17)
[2020-03-12] MEDS: INSULIN DETEMIR (LEVEMIR) 100 UNIT/ML SYR SQ SCH (21:22)
[2020-03-12] MEDS: clonazePAM 1 MG TAB PO PRN (21:23)
[2020-03-12] MEDS: ATORVASTATIN 20 MG TAB PO SCH (21:24)
[2020-03-12 22:37] LABS: Glucose,Whole Blood 356 mg/dL (75-99)
[2020-03-13] MEDS: PIPERACILLIN-TAZOBACTAM 3.375 GM in SODIUM CHLORIDE 0.9% 100 ML IVPB SCH ×2 (01:38→12:35)
[2020-03-13] MEDS: LEVOTHYROXINE 25 MCG TAB PO SCH (06:14)
[2020-03-13] MEDS: Eltrombopag Olamine [Promacta] 50 MG PO SCH (06:36)
[2020-03-13] MEDS: ELTROMBOPAG OLAMINE 25 MG PO SCH (06:36)
[2020-03-13 07:05] LABS: Glucose,Whole Blood 187 mg/dL (75-99)
[2020-03-13] MEDS: IPRATROPIUM-ALBUTEROL 3 ML NEB INHALATION SCH ×3 (07:35→15:40)
[2020-03-13] MEDS: PANTOPRAZOLE 40 MG TABLET PO SCH (07:52)
[2020-03-13] MEDS: predniSONE 20 MG TAB PO SCH (07:52)
[2020-03-13] MEDS: TAMSULOSIN 0.4 MG CAP.ER.24H PO SCH (07:52)
[2020-03-13] MEDS: traMADol 50 MG TAB PO SCH (07:52)
[2020-03-13] MEDS: DULoxetine HCL 60 MG CAPSULE.DR PO SCH (07:52)
[2020-03-13] MEDS: CALCIUM CARBONATE 500 MG CHEWABLE PO SCH (07:52)
[2020-03-13] MEDS: METOPROLOL TARTRATE 50 MG TAB PO SCH (07:52)
[2020-03-13] MEDS: FINASTERIDE 5 MG TAB PO SCH (07:52)
[2020-03-13] MEDS: NYSTATIN 100,000 UNIT/ML SUSP 500,000 UNIT/5 ML CUP PO SCH ×2 (07:52→12:36)
[2020-03-13] MEDS: amLODIPine 5 MG TAB PO SCH (07:52)
[2020-03-13] MEDS: MAGNESIUM OXIDE 400 MG TAB PO SCH (07:52)
[2020-03-13] MEDS: INSULIN ASPART (NovoLOG) 100 UNIT/ML VIAL SQ SCH ×2 (07:53→12:36)
[2020-03-13] MEDS: TACROLIMUS 1 MG CAP PO SCH (07:54)
[2020-03-13 09:45] LABS: Anisocytosis Slight; HCT 38.1 % (39.0-53.0); HGB 11.9 gm/dL (13.0-17.5); Hypochromasia Moderate; MCH 28.7 pg (25.0-35.0); MCHC 31.3 g/dL (31.0-37.0); MCV 91.5 fL (80.0-100.0); Mean Platelet Volume 7.8; Platelet Count 370 k/uL (150-450); RBC 4.16 m/uL (4.30-5.90); RDW 16.1 % (11.5-15.5); WBC 14.1 k/uL (3.8-10.6)
[2020-03-13 09:59] LABS: Calcium 7.7 mg/dL (8.4-10.2); Potassium 4.6 mmol/L (3.5-5.1)
[2020-03-13] MEDS ORDERED: FUROSEMIDE 40 MG TAB PO STA (10:26)
[2020-03-13] MEDS: SODIUM CHLORIDE 0.9% 1,000 ML IV SCH (10:40)
--- NOTE | 2020-03-13 11:13 | P.DS ---
Providers Date of admission: 03/05/20 19:28 Expected date of discharge: 03/13/20 Attending physician: Narinder Rosenberg Consults: 03/05/20 19:27 Consult Physician Routine Consulting Provider: Carolina Wolfe Consult Reason/Comments: arf Do you want consulting provider notified?: Yes Primary care physician: Narinder Rosenberg [facility] Course: Final Diagnoses: Acute on chronic renal failure II, status post renal transplant. Acute secondary to ATN, multifactorial, concern for potential rejection-transfer initiated,; transfer canceled by nephrology with continued improvement, possible mobile sc ncomycin toxicity. 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 Craig History of melanoma Anxiety, depression Chronic back pain Hospital course:This is a 79-year-old gentleman admitted from subacute rehab with increasing weakness, acute renal failure and multiple other medical issues. Maintained on IV fluid hydration as per nephrology. Creatinine decreased to 4.14, hemoglobin 10.3. Patient requesting discharge home when medically ready/PT currently recommending subacute rehab. Presented with some short-term memory deficits- Sensorium significantly improved. Denies chest pain, palpitations or increasing shortness of breath. Denies nausea vomiting or diarrhea. Consuming 75% of diet. Obtain O2 sats in the 90s on room air. 03/10/20 continues on IV fluid hydration, steroids, Prograf, Zosyn. Creatinine trending down to 3.96. PT pending. Afebrile, WBC 11-on steroids. Maintaining O2 sats in the 90s on room air. Denies chest pain, palpitations or increased shortness of breath. 03/11/[address] Wolfe recommended transfer to [facility], to patient's own shadowgraph scale operator Dr. Valle, related to slow improvement in renal function with possible rejection in a donor renal transplant patient who is immunosuppression was decreased a few months ago secondary to thrombocytopenia. Transfer initiated, bed pending. Empirically treated for possible rejection. Prograf increased .This morning creatinine continues to improve down to 3.[address] Wolfe canceled transfer. Potassium 5.2. Maintain IV fluid hydration. Continues on antibiotics of Zosyn, afebrile. Denies chest pain, palpitations or shortness of breath. 03/12/2020 renal function continues to improve down to 3.18. Chest x-ray noted, clinically asymptomatic .Denies cough or congestion. Afebrile. Denies chest pain, palpitations or shortness of breath. Significant clinical improvement. Renal function continues to improve daily, currently 2.71. Cleared by nephrology for discharge. Nephrology recommending prednisone 40 mg daily 1 week then 20 mg daily- with further tapering to be determined by nephrology. Patient will be discharged to [facility] subacute rehab in a stable condition with guarded prognosis. The impression and plan of care has been dictated as directed. : I performed a history and examination of this patient, discussed the same with the dictator. I agree with the dictator's note ,documented as a scribe. Any additional findings or plans will be noted. Patient Condition at Discharge: Stable Plan - Discharge Summary Discharge Rx Participant: No New Discharge Prescriptions: New Ipratropium-Albuterol Nebulize [Duoneb 0.5 mg-3 mg/3 ml Soln] 3 ml INHALATION RT-QID ml Folic Acid 1 mg PO DAILY@1200 tab INSULIN ASPART (NovoLOG) [NovoLOG (formulary)] 0 unit SQ ACHS vial Tacrolimus [Prograf] 1 mg PO BID@0800,1700 cap rOPINIRole HCL [Requip] 0.25 mg PO HS tab Thiamine [Vitamin B-1] 100 mg PO DAILY@1200 tab Piperacillin-Tazobactam [Zosyn] 3.375 gm IVPB Q12H vial mycophenolate mofetiL [Cellcept] 250 mg PO BID cap Amoxicillin/Potassium Clav [Augmentin 500-125 Tablet] 1 tab PO Q12HR #4 tab predniSONE 10 mg PO DIRECTED #70 tab Continue Finasteride [Proscar] 5 mg PO DAILY@0800 Tamsulosin HCl [Flomax] 0.4 mg PO DAILY@0800 DULoxetine HCL [Cymbalta] 120 mg PO DAILY@0800 Multivitamins, Thera [Multivitamin (formulary)] 1 tab PO DAILY@1700 Atorvastatin Calcium [Lipitor] 20 mg PO HS@2100 Levothyroxine Sodium [Levoxyl] 25 mcg PO DAILY@0600 amLODIPine [Norvasc] 5 mg PO BID@0800,1700 Vit C/E/Zn/Coppr/Lutein/Zeaxan [Preservision Areds 2 Softgel] 1 cap PO DAILY@0800 Acetaminophen Tab [Tylenol] 650 mg PO Q6HR PRN tab PRN Reason: Fever And/ Or Pain Pantoprazole [Protonix] 40 mg PO DAILY@0800 Eltrombopag Olamine [Promacta] 50 mg PO DAILY@0600 Calcium Carbonate [Tums] 1,000 mg PO DAILY@0800 Eltrombopag Olamine [Promacta] 25 mg PO DAILY@0600 Nystatin 100,000 Unit/ml Susp [Mycostatin Oral Susp] 500,000 unit PO QID ml clonazePAM [KlonoPIN] 1 - 2 mg PO HS PRN #6 tab PRN Reason: Anxiety bisacodyL [Bisacodyl] 10 mg RECTAL DAILY PRN PRN Reason: Constipation traMADol HCL 50 mg PO BID@0800,2000 Metoprolol Tartrate [Lopressor] 50 mg PO Q12H Glucerna Shake 120 ml PO BID@1200,1700 Magnesium Oxide [Mag-Ox] 400 mg PO DAILY@0800 Insulin Detemir (Levemir) [Levemir] 12 unit SQ HS@2100 Magnesium Hydroxide [Milk of Magnesia Concentrate] 7,200 mg PO Q48H PRN PRN Reason: Constipation clonazePAM [KlonoPIN] 1 - 2 mg PO HS PRN #6 tab PRN Reason: Anxiety Discontinued Tacrolimus [Prograf] 0.5 mg PO BID@0800,1700 Na Phos,M-B/Na Phos,Di-Ba [Fleet Adult] 133 ml RECTAL DAILY PRN PRN Reason: Constipation INSULIN ASPART (NovoLOG) [NovoLOG (formulary)] See Protocol SQ ACHS Amoxicillin/Potassium Clav [Augmentin 875-125 Tablet] 1 tab PO Q12H No Action Melatonin 3 mg PO HS PRN PRN Reason: Insomnia Discharge Medication List Finasteride [Proscar] 5 mg PO DAILY@0800 02/09/17 [History] Tamsulosin HCl [Flomax] 0.4 mg PO DAILY@0800 02/09/17 [History] DULoxetine HCL [Cymbalta] 120 mg PO DAILY@0800 04/19/18 [History] Multivitamins, Thera [Multivitamin (formulary)] 1 tab PO DAILY@1700 12/31/18 [History] Atorvastatin Calcium [Lipitor] 20 mg PO HS@209910/14/19 [History] Levothyroxine Sodium [Levoxyl] 25 mcg PO DAILY@0612/18/19 [History] Vit C/E/Zn/Coppr/Lutein/Zeaxan [Preservision Areds 2 Softgel] 1 cap PO DAILY@0812/18/19 [History] amLODIPine [Norvasc] 5 mg PO BID@0800,1700 12/18/19 [History] Acetaminophen Tab [Tylenol] 650 mg PO Q6HR PRN tab 12/24/19 [Rx] Calcium Carbonate [Tums] 1,000 mg PO DAILY@0812/28/19 [History] Eltrombopag Olamine [Promacta] 50 mg PO DAILY@0600 12/28/19 [History] Pantoprazole [Protonix] 40 mg PO DAILY@0812/28/19 [History] Eltrombopag Olamine [Promacta] 25 mg PO DAILY@0602/23/20 [History] Nystatin 100,000 Unit/ml Susp [Mycostatin Oral Susp] 500,000 unit PO QID ml 03/02/20 [Rx] clonazePAM [KlonoPIN] 1 - 2 mg PO HS PRN #6 tab 03/02/20 [Rx] Glucerna Shake 120 ml PO BID@1200,1700 03/05/20 [History] Insulin Detemir (Levemir) [Levemir] 12 unit SQ HS@209903/05/20 [History] Magnesium Hydroxide [Milk of Magnesia Concentrate] 7,200 mg PO Q48H PRN 03/05/20 [History] Magnesium Oxide [Mag-Ox] 400 mg PO DAILY@0803/05/20 [History] Melatonin 3 mg PO HS PRN 03/05/20 [History] Metoprolol Tartrate [Lopressor] 50 mg PO Q12H 03/05/20 [History] bisacodyL [Bisacodyl] 10 mg RECTAL DAILY PRN 03/05/20 [History] traMADol HCL 50 mg PO BID@0800,199903/05/20 [History] Folic Acid 1 mg PO DAILY@1200 tab 03/10/20 [Rx] INSULIN ASPART (NovoLOG) [NovoLOG (formulary)] 0 unit SQ ACHS vial 03/10/20 [Rx] Ipratropium-Albuterol Nebulize [Duoneb 0.5 mg-3 mg/3 ml Soln] 3 ml INHALATION RT-QID ml 03/10/20 [Rx] Piperacillin-Tazobactam [Zosyn] 3.375 gm IVPB Q12H vial 03/10/20 [Rx] Tacrolimus [Prograf] 1 mg PO BID@0800,1700 cap 03/10/20 [Rx] Thiamine [Vitamin B-1] 100 mg PO DAILY@1200 tab 03/10/20 [Rx] rOPINIRole HCL [Requip] 0.25 mg PO HS tab 03/10/20 [Rx] Amoxicillin/Potassium Clav [Augmentin 500-125 Tablet] 1 tab PO Q12HR #4 tab 03/13/20 [Rx] clonazePAM [KlonoPIN] 1 - 2 mg PO HS PRN #6 tab 03/13/20 [Rx] mycophenolate mofetiL [Cellcept] 250 mg PO BID cap 03/13/20 [Rx] predniSONE 10 mg PO DIRECTED #70 tab 03/13/20 [Rx] Follow up Appointment(s)/Referral(s): Carolina Wolfe MD [STAFF PHYSICIAN] - 04/07/20 1:20 pm Narinder Rosenberg DO [Primary Care Provider] - 1 Week Belinda Posey, [NON-STAFF] - As Needed Activity/Diet/Wound Care/Special Instructions: [facility] Sub acute Rehab Patients Tetryl Dissolver Operator Dr. Valle [facility],BMP in 3 days Discharge Disposition: OTHER INSTITUTION NOT DEFINED
[2020-03-13 11:45] LABS: Glucose,Whole Blood 140 mg/dL (75-99)
[2020-03-13] MEDS: THIAMINE 100 MG TAB PO SCH (12:36)
[2020-03-13] MEDS: FOLIC ACID 1 MG TAB PO SCH (12:36)
[2020-03-13 14:39] VITALS: BP 150/82; PULSE 69; RESP 16; TEMP 97.5
--- NOTE | 2020-03-13 16:58 | PN ---
PROGRESS NOTE Patient is seen for followup for acute kidney injury. His renal function is improving. Patient's creatinine is down to 2.71 today. He is being discharged. He denies any chest pains or shortness of breath. PHYSICAL EXAMINATION: On examination today, blood pressure was 133/74, heart rate 71 per minute. Patient is afebrile. EXAMINATION OF THE HEART: S1 and S2. EXAMINATION OF LUNGS: Bilateral breath sounds are heard. Decreased breath sounds at bases. ABDOMEN: Soft, non-tender. Examination of lower extremities shows edema 1+ bilaterally. LABS: Labs show serum creatinine down to 2.7 mg/dL, sodium 137, potassium 4.6, hemoglobin 11.9 g/dL. ASSESSMENT: 1. Acute kidney injury, most likely acute tubular necrosis and secondary to vancomycin toxicity, currently improving. There was concern regarding possible rejection. Patient did receive one dose of Solu-Medrol and he is back on his CellCept. Prograf was also increased. We will repeat another level in about one week's time. 2. Status post -donor transplant. Baseline creatinine about 1.0 mg/dL. 3. Mild volume overload. Discontinue IV fluids. Give Lasix p.o. 40 mg x1. 4. Recent pneumonia from recent hospitalization, currently off of antibiotics. 5. Immune thrombocytopenia, now improved. Patient remains on Promacta. We will resume the CellCept and continue with a slightly increased dose of Prograf. Prednisone was increased to 40 because of the kidneys and we will taper it down to 20 mg again in one week's time. We will see the patient back for followup in about one week's time. MMODL / IJN: [id number] /
== END 2020-03-13 16:47 | disposition home or self-care (01) | DRG 698 ==
LOC: EC 17:32 → 4SSUR 19:28
PROVIDERS: ADMIT Family Medicine; ATTEND Family Medicine
DX: T86.12 Kidney transplant failure (principal); N17.0 Acute kidney failure with tubular necrosis; G93.41 Metabolic encephalopathy; J15.6 Pneumonia due to other Gram-negative bacteria; A41.50 Gram-negative sepsis, unspecified; E44.1 Mild protein-calorie malnutrition; E87.1 Hypo-osmolality and hyponatremia; E87.2 Acidosis; I48.19 Other persistent atrial fibrillation; T86.11 Kidney transplant rejection; D63.8 Anemia in other chronic diseases classified elsewhere; E11.22 Type 2 diabetes mellitus with diabetic chronic kidney disease; C61 Malignant neoplasm of prostate; T36.8X5A Adverse effect of other systemic antibiotics, initial encounter; Z20.828 Contact with and (suspected) exposure to other viral communicable diseases; I12.9 Hypertensive chronic kidney disease with stage 1 through stage 4 chronic kidney disease, or unspecified chronic kidney disease; E03.9 Hypothyroidism, unspecified; E66.9 Obesity, unspecified; E78.5 Hyperlipidemia, unspecified; E86.0 Dehydration; E86.1 Hypovolemia; F32.9 Major depressive disorder, single episode, unspecified; F41.9 Anxiety disorder, unspecified; G89.29 Other chronic pain; H91.90 Unspecified hearing loss, unspecified ear; I25.10 Atherosclerotic heart disease of native coronary artery without angina pectoris; N18.2 Chronic kidney disease, stage 2 (mild); M54.9 Dorsalgia, unspecified; Z68.30 Body mass index [BMI] 30.0-30.9, adult; Z79.4 Long term (current) use of insulin; Z79.890 Hormone replacement therapy; Z79.899 Other long term (current) drug therapy; Z79.52 Long term (current) use of systemic steroids; Z95.1 Presence of aortocoronary bypass graft; Z88.5 Allergy status to narcotic agent; Z85.820 Personal history of malignant melanoma of skin; Z86.12 Personal history of poliomyelitis; Z98.890 Other specified postprocedural states; Z80.8 Family history of malignant neoplasm of other organs or systems; Z82.49 Family history of ischemic heart disease and other diseases of the circulatory system; Y83.0 Surgical operation with transplant of whole organ as the cause of abnormal reaction of the patient, or of later complication, without mention of misadventure at the time of the procedure
CPT/HCPCS: 36415; 71046; 76776; 80048; 80053; 80197; 81003; 82550; 83735; 83880; 84100; 84484; 85025; 85027; 85610; 85730; 87040; 87635; 93005; 94640; 96365; 99285

== ENCOUNTER 2020-04-03 14:00 | Inpatient (IN) | payer MEDICARE ==
[2020-04-03 14:37] LABS: Glucose,Whole Blood 97 mg/dL (75-99)
[2020-04-03] MEDS ORDERED: SODIUM CHLORIDE 0.9% 500 ML 500 ML IV ONE (14:48)
[2020-04-03 15:08] LABS: Anisocytosis Slight; Basophils # (A) 0.1 k/uL (0-0.2); Basophils % (A) 1 %; Eosinophils # (A) 0.1 k/uL (0-0.7); Eosinophils % (A) 1 %; HCT 46.2 % (39.0-53.0); HGB 14.6 gm/dL (13.0-17.5); Lymphocytes # (A) 0.5 k/uL (1.0-4.8); Lymphocytes % (A) 4 %; MCH 28.4 pg (25.0-35.0); MCHC 31.6 g/dL (31.0-37.0); MCV 89.9 fL (80.0-100.0); Mean Platelet Volume 8.9; Monocytes # (A) 0.7 k/uL (0-1.0); Monocytes % (A) 6 %; Neutrophils # (A) 9.5 k/uL (1.3-7.7); Neutrophils % (A) 87 %; Platelet Count 214 k/uL (150-450); RBC 5.14 m/uL (4.30-5.90); RDW 17.1 % (11.5-15.5)
[2020-04-03 15:09] LABS: Albumin 3.5 g/dL (3.5-5.0); Calcium 8.6 mg/dL (8.4-10.2); Partial Thromboplastin Time 22.6 sec (22.0-30.0); Potassium 4.4 mmol/L (3.5-5.1); Prothrombin Time 10.5 sec (9.0-12.0); Total Protein 5.7 g/dL (6.3-8.2)
[2020-04-03 15:10] LABS: Lactic Acid, Venous 1.5 mmol/L (0.7-2.0)
--- NOTE | 2020-04-03 15:21 | ED ---
Altered Mental Status HPI - General Chief Complaint: Altered Mental Status Stated Complaint: altered mental Time Seen by Provider: 04/03/20 14:30 Source: patient, EMS, RN notes reviewed Mode of arrival: EMS Limitations: no limitations - History of Present Illness Initial Comments: This 79-year-old male present emergency Department with chief complaint of worsening confusion. Patient's been having worsening symptoms over the last 1 week. states patient has been hallucinating at home, very confused. He's had no recent infections. They have been monitoring his kidney function is has a history of transplant. Patient also visited thrombocytopenia. Patient denies any recent falls no headache no dizziness denies any complaints of chest pain, shortness breath, abdominal pain, nausea vomiting. Patient's had no recent cough or URI symptoms. No reported fever. - Related Data Home Medications Medication Instructions Recorded Confirmed RX: Finasteride [Proscar] 5 mg PO DAILY@0802/09/17 03/05/20 RX: Tamsulosin HCl [Flomax] 0.4 mg PO DAILY@79902/09/17 03/05/20 RX: DULoxetine HCL [Cymbalta] 120 mg PO DAILY@79904/19/18 03/05/20 RX: Multivitamins, Thera 1 tab PO DAILY@1700 12/31/18 03/05/20 [Multivitamin (formulary)] RX: Atorvastatin Calcium [Lipitor] 20 mg PO HS@2100 10/14/19 03/05/20 RX: Levothyroxine Sodium [Levoxyl] 25 mcg PO DAILY@0612/18/19 03/05/20 RX: Vit C/E/Zn/Coppr/Lutein/Zeaxan 1 cap PO DAILY@79912/18/19 03/05/20 [Preservision Areds 2 Softgel] RX: amLODIPine [Norvasc] 5 mg PO BID@0800,1700 12/18/19 03/05/20 RX: Calcium Carbonate [Tums] 1,000 mg PO DAILY@0812/28/19 03/05/20 RX: Eltrombopag Olamine [Promacta] 50 mg PO DAILY@0600 12/28/19 03/05/20 RX: Pantoprazole [Protonix] 40 mg PO DAILY@0812/28/19 03/05/20 RX: Eltrombopag Olamine [Promacta] 25 mg PO DAILY@0600 02/23/20 03/05/20 RX: Glucerna Shake 120 ml PO BID@1200,1700 03/05/20 03/05/20 RX: Insulin Detemir (Levemir) 12 unit SQ HS@2100 03/05/20 03/05/20 [Levemir] RX: Magnesium Hydroxide [Milk of 7,200 mg PO Q48H PRN 03/05/20 03/05/20 Magnesia Concentrate] RX: Magnesium Oxide [Mag-Ox] 400 mg PO DAILY@0800 03/05/20 03/05/20 RX: Melatonin 3 mg PO HS PRN 03/05/20 03/05/20 RX: Metoprolol Tartrate [Lopressor] 50 mg PO Q12H 03/05/20 03/05/20 RX: bisacodyL [Bisacodyl] 10 mg RECTAL DAILY PRN 03/05/20 03/05/20 Previous Rx's Medication Instructions Recorded RX: Acetaminophen Tab [Tylenol] 650 mg PO Q6HR PRN tab 12/24/19 RX: Nystatin 100,000 Unit/ml Susp 500,000 unit PO QID ml 03/02/20 [Mycostatin Oral Susp] RX: clonazePAM [KlonoPIN] 1 - 2 mg PO HS PRN #6 tab 03/02/20 RX: Folic Acid 1 mg PO DAILY@1200 tab 03/10/20 RX: INSULIN ASPART (NovoLOG) 0 unit SQ ACHS vial 03/10/20 [NovoLOG (formulary)] RX: Ipratropium-Albuterol Nebulize 3 ml INHALATION RT-QID ml 03/10/20 [Duoneb 0.5 mg-3 mg/3 ml Soln] RX: Tacrolimus [Prograf] 1 mg PO BID@0800,1700 cap 03/10/20 RX: Thiamine [Vitamin B-1] 100 mg PO DAILY@1200 tab 03/10/20 RX: rOPINIRole HCL [Requip] 0.25 mg PO HS tab 03/10/20 Amoxicillin/Potassium Clav 1 tab PO Q12HR #4 tab 03/13/20 [Augmentin 500-125 Tablet] RX: clonazePAM [KlonoPIN] 1 - 2 mg PO HS PRN #6 tab 03/13/20 RX: mycophenolate mofetiL 250 mg PO BID cap 03/13/20 [Cellcept] RX: predniSONE 10 mg PO DIRECTED #70 tab 03/13/20 RX: traMADol HCL 50 mg PO BID@0800,2000 #6 tab 03/13/20 Allergies Allergy/AdvReac Type Severity Reaction Status Date / Time morphine Allergy Itching Verified 04/03/20 14:13 Review of Systems ROS Statement: Those systems with pertinent positive or pertinent negative responses have been documented in the HPI. ROS Other: All systems not noted in ROS Statement are negative. 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." Hard of hearing, LOW PLATELETS, History of Any Multi-Drug Resistant Organisms: None Reported Past Surgical History: Orthopedic Surgery Additional Past Surgical History / Comment(s): kidney transplant, parathyroid surgery, knee surgery, pericardiocentesis Past Anesthesia/Blood Transfusion Reactions: No Reported Reaction Past Psychological History: Anxiety, Depression Smoking Status: Never smoker Past Alcohol Use History: Rare Past Drug Use History: None Reported - Past Family History Father Family Medical History: Deep Vein Thrombosis (DVT) Son(s) Family Medical History: Cancer Additional Family Medical History / Comment(s): Skin cancer. General Exam Limitations: no limitations General appearance: alert, in no apparent distress Head exam: Present: atraumatic, normocephalic, normal inspection Eye exam: Present: normal appearance, PERRL, EOMI. Absent: scleral icterus, conjunctival injection, periorbital swelling ENT exam: Present: normal exam, normal oropharynx, mucous membranes moist Neck exam: Present: normal inspection, full ROM. Absent: tenderness, meningismus, lymphadenopathy Respiratory exam: Present: normal lung sounds bilaterally. Absent: respiratory distress, wheezes, rales, rhonchi, stridor Cardiovascular Exam: Present: regular rate, normal rhythm, normal heart sounds. Absent: systolic murmur, diastolic murmur, rubs, gallop, clicks GI/Abdominal exam: Present: soft, normal bowel sounds. Absent: distended, tenderness, guarding, rebound, rigid Neurological exam: Present: alert, oriented X3, CN II-XII intact Skin exam: Present: warm, dry, intact, normal color. Absent: rash Course Vital Signs 04/03/20 04/03/20 14:03 18:00 Temperature 98.0 F Pulse Rate 64 82 Respiratory 18 16 Rate Blood Pressure 113/87 132/91 O2 Sat by Pulse 97 96 Oximetry Medical Decision Making - Medical Decision Making Patient's lab reviewed there is no significant changes. CT of brain x-ray reviewed no signs of infection. Patient continues to have hallucinations and is concerned as she stated he was up all night having loose patient's agitation. Patient will be admitted for evaluation. - Lab Data Result diagrams: 04/03/20 14:50 04/03/20 14:50 Lab Results 04/03/20 04/03/20 04/03/20 Range/Units 14:34 14:50 14:50 WBC 11.0 H (3.8-10.6) k/uL RBC 5.14 (4.30-5.90) m/uL Hgb 14.6 (13.0-17.5) gm/dL Hct 46.2 (39.0-53.0) % MCV 89.9 (80.0-100.0) fL MCH 28.4 (25.0-35.0) pg MCHC 31.6 (31.0-37.0) g/dL RDW 17.1 H (11.5-15.5) % Plt Count 214 (150-450) k/uL Neutrophils % 87 % Lymphocytes % 4 % Monocytes % 6 % Eosinophils % 1 % Basophils % 1 % Neutrophils # 9.5 H (1.3-7.7) k/uL Lymphocytes # 0.5 L (1.0-4.8) k/uL Monocytes # 0.7 (0-1.0) k/uL Eosinophils # 0.1 (0-0.7) k/uL Basophils # 0.1 (0-0.2) k/uL Anisocytosis Slight PT 10.5 (9.0-12.0) sec INR 1.0 (<1.2) APTT 22.6 (22.0-30.0) sec Sodium (137-145) mmol/L Potassium (3.5-5.1) mmol/L Chloride (98-107) mmol/L Carbon Dioxide (22-30) mmol/L Anion Gap mmol/L BUN (9-20) mg/dL Creatinine (0.66-1.25) mg/dL Est GFR (CKD-EPI)AfAm (>60 ml/min/1.73 sqM) Est GFR (CKD-EPI)NonAf (>60 ml/min/1.73 sqM) Glucose (74-99) mg/dL POC Glucose (mg/dL) 97 (75-99) mg/dL POC Glu Mold Chipper ID Lyly Forrest Plasma Lactic Acid Jc (0.7-2.0) mmol/L Calcium (8.4-10.2) mg/dL Total Bilirubin (0.2-1.3) mg/dL AST (17-59) U/L ALT (4-49) U/L Alkaline Phosphatase (38-126) U/L Ammonia (<30) umol/L Troponin I (0.000-0.034) ng/mL Total Protein (6.3-8.2) g/dL Albumin (3.5-5.0) g/dL Urine Color Urine Appearance (Clear) Urine pH (5.0-8.0) Ur Specific [place] (1.001-1.035) Urine Protein (Negative) Urine Glucose (UA) (Negative) Urine Ketones (Negative) Urine Blood (Negative) Urine Nitrite (Negative) Urine Bilirubin (Negative) Urine Urobilinogen (<2.0) mg/dL Ur Leukocyte Esterase (Negative) Urine RBC (0-5) /hpf Urine WBC (0-5) /hpf 04/03/20 04/03/20 04/03/20 Range/Units 14:50 14:50 14:50 WBC (3.8-10.6) k/uL RBC (4.30-5.90) m/uL Hgb (13.0-17.5) gm/dL Hct (39.0-53.0) % MCV (80.0-100.0) fL MCH (25.0-35.0) pg MCHC (31.0-37.0) g/dL RDW (11.5-15.5) % Plt Count (150-450) k/uL Neutrophils % % Lymphocytes % % Monocytes % % Eosinophils % % Basophils % % Neutrophils # (1.3-7.7) k/uL Lymphocytes # (1.0-4.8) k/uL Monocytes # (0-1.0) k/uL Eosinophils # (0-0.7) k/uL Basophils # (0-0.2) k/uL Anisocytosis PT (9.0-12.0) sec INR (<1.2) APTT (22.0-30.0) sec Sodium 138 (137-145) mmol/L Potassium 4.4 (3.5-5.1) mmol/L Chloride 106 (98-107) mmol/L Carbon Dioxide 23 (22-30) mmol/L Anion Gap 9 mmol/L BUN 23 H (9-20) mg/dL Creatinine 1.38 H (0.66-1.25) mg/dL Est GFR (CKD-EPI)AfAm 57 (>60 ml/min/1.73 sqM) Est GFR (CKD-EPI)NonAf 49 (>60 ml/min/1.73 sqM) Glucose 84 (74-99) mg/dL POC Glucose (mg/dL) (75-99) mg/dL POC Glu Mold Chipper ID Plasma Lactic Acid Jc (0.7-2.0) mmol/L Calcium 8.6 (8.4-10.2) mg/dL Total Bilirubin 1.0 (0.2-1.3) mg/dL AST 27 (17-59) U/L ALT 23 (4-49) U/L Alkaline Phosphatase 85 (38-126) U/L Ammonia (<30) umol/L Troponin I 0.017 (0.000-0.034) ng/mL Total Protein 5.7 L (6.3-8.2) g/dL Albumin 3.5 (3.5-5.0) g/dL Urine Color Yellow Urine Appearance Clear (Clear) Urine pH 7.0 (5.0-8.0) Ur Specific [place] 1.008 (1.001-1.035) Urine Protein Negative (Negative) Urine Glucose (UA) Negative (Negative) Urine Ketones Negative (Negative) Urine Blood Trace H (Negative) Urine Nitrite Negative (Negative) Urine Bilirubin Negative (Negative) Urine Urobilinogen <2.0 (<2.0) mg/dL Ur Leukocyte Esterase Negative (Negative) Urine RBC 2 (0-5) /hpf Urine WBC 2 (0-5) /hpf 04/03/20 Range/Units 14:50 WBC (3.8-10.6) k/uL RBC (4.30-5.90) m/uL Hgb (13.0-17.5) gm/dL Hct (39.0-53.0) % MCV (80.0-100.0) fL MCH (25.0-35.0) pg MCHC (31.0-37.0) g/dL RDW (11.5-15.5) % Plt Count (150-450) k/uL Neutrophils % % Lymphocytes % % Monocytes % % Eosinophils % % Basophils % % Neutrophils # (1.3-7.7) k/uL Lymphocytes # (1.0-4.8) k/uL Monocytes # (0-1.0) k/uL Eosinophils # (0-0.7) k/uL Basophils # (0-0.2) k/uL Anisocytosis PT (9.0-12.0) sec INR (<1.2) APTT (22.0-30.0) sec Sodium (137-145) mmol/L Potassium (3.5-5.1) mmol/L Chloride (98-107) mmol/L Carbon Dioxide (22-30) mmol/L Anion Gap mmol/L BUN (9-20) mg/dL Creatinine (0.66-1.25) mg/dL Est GFR (CKD-EPI)AfAm (>60 ml/min/1.73 sqM) Est GFR (CKD-EPI)NonAf (>60 ml/min/1.73 sqM) Glucose (74-99) mg/dL POC Glucose (mg/dL) (75-99) mg/dL POC Glu Mold Chipper ID Plasma Lactic Acid Jc 1.5 (0.7-2.0) mmol/L Calcium (8.4-10.2) mg/dL Total Bilirubin (0.2-1.3) mg/dL AST (17-59) U/L ALT (4-49) U/L Alkaline Phosphatase (38-126) U/L Ammonia <9 (<30) umol/L Troponin I (0.000-0.034) ng/mL Total Protein (6.3-8.2) g/dL Albumin (3.5-5.0) g/dL Urine Color Urine Appearance (Clear) Urine pH (5.0-8.0) Ur Specific [place] (1.001-1.035) Urine Protein (Negative) Urine Glucose (UA) (Negative) Urine Ketones (Negative) Urine Blood (Negative) Urine Nitrite (Negative) Urine Bilirubin (Negative) Urine Urobilinogen (<2.0) mg/dL Ur Leukocyte Esterase (Negative) Urine RBC (0-5) /hpf Urine WBC (0-5) /hpf Disposition Clinical Impression: Hallucinations, Confusion Disposition: ADMITTED IP TO THIS [facility] Condition: Fair Referrals: Narinder Rosenberg DO [Primary Care Provider] - 1-2 days
--- NOTE | 2020-04-03 15:36 | XR ---
EXAMINATION TYPE: XR chest 2V DATE OF EXAM: 04/03/2020 COMPARISON: Prior chest x-ray 03/11/2020 HISTORY: Altered mental status TECHNIQUE: Frontal and lateral views of the chest are obtained on 3 images. FINDINGS: There is improved aeration in the lungs as compared to prior exam. There are overlying car diac leads. The aorta is dense. Heart is within normal limits accounting for technique. No pneumothor ax or pleural effusion is evident. Questionable nodular density overlying the right anterior seventh rib at the level of the costophrenic angle on the right. IMPRESSION: No acute cardiopulmonary process. Indeterminate sclerotic density at the right costophre frank angle level is indeterminate.
--- NOTE | 2020-04-03 15:37 | CT ---
EXAMINATION TYPE: CT brain wo con DATE OF EXAM: 04/03/2020 COMPARISON: Altered mental status HISTORY: Altered mental status. CT DLP: 1157.4 mGycm Automated exposure control for dose reduction was used. FINDINGS: Intracranial atherosclerotic changes noted. Moderate generalized degenerative change with periventric ular low attenuation which is nonspecific but most common with remote microvascular ischemia. Calvari um intact. No acute hemorrhage or mass effect. Craniocervical junction is maintained. Sella turcica has a normal appearance. Mucous retention cyst o r polyp within the left maxillary sinus. IMPRESSION: DEGENERATIVE AND NONSPECIFIC WHITE MATTER CHANGES MOST TYPICAL OF REMOTE WHITE MATTER. NO ACUTE HEMOR RHAGE OR MASS EFFECT. ISCHEMIA.
[2020-04-03 17:29] LABS: Appearance,Urine Clear (Clear); Bilirubin,Urine Negative (Negative); Blood,Urine Trace (Negative); Color,Urine Yellow; Glucose,Urine (UA) Negative (Negative); Ketones,Urine Negative (Negative); Leukocyte Esterase,Urine Negative (Negative); Nitrite,Urine Negative (Negative); Protein,Urine Negative (Negative); RBC,Urine 2 /hpf (0-5); Specific Gravity,Urine 1.008 (1.001-1.035); Urobilinogen,Urine <2.0 mg/dL (<2.0); WBC,Urine 2 /hpf (0-5)
[2020-04-03] MEDS ORDERED: NALOXONE 0.4 MG/ML 1 ML VIAL IV PRN (18:13)
[2020-04-03] MEDS ORDERED: LORazepam 2 MG/ML INJ IV PRN (18:15)
[2020-04-03 22:06] LABS: Glucose,Whole Blood 88 mg/dL (75-99)
[2020-04-03] MEDS ORDERED: NYSTATIN 100,000 UNIT/ML SUSP 500,000 UNIT/5 ML CUP PO PRN (22:22)
[2020-04-03] MEDS: INSULIN DETEMIR (LEVEMIR) 100 UNIT/ML SYR SQ SCH (22:57)
[2020-04-03] MEDS: AMITRIPTYLINE HCL 25 MG TAB PO SCH (23:02)
[2020-04-03] MEDS: TACROLIMUS 0.5 MG CAP PO SCH (23:02)
[2020-04-04] MEDS: ELTROMBOPAG OLAMINE 25 MG PO SCH (05:03)
[2020-04-04] MEDS: ELTROMBOPAG OLAMINE 50 MG PO SCH (05:03)
[2020-04-04 07:39] LABS: Anisocytosis Slight; Basophils # (A) 0.1 k/uL (0-0.2); Basophils % (A) 1 %; Eosinophils # (A) 0.3 k/uL (0-0.7); Eosinophils % (A) 4 %; HGB 13.2 gm/dL (13.0-17.5); Hypochromasia Slight; Lymphocytes # (A) 0.8 k/uL (1.0-4.8); Lymphocytes % (A) 12 %; MCH 28.5 pg (25.0-35.0); MCHC 31.4 g/dL (31.0-37.0); MCV 90.5 fL (80.0-100.0); Mean Platelet Volume 8.9; Monocytes # (A) 0.5 k/uL (0-1.0); Monocytes % (A) 7 %; Neutrophils # (A) 5.1 k/uL (1.3-7.7); Neutrophils % (A) 74 %; Platelet Count 209 k/uL (150-450); RBC 4.64 m/uL (4.30-5.90); RDW 17.1 % (11.5-15.5)
[2020-04-04] MEDS: TAMSULOSIN 0.4 MG CAP.ER.24H PO SCH (07:41)
[2020-04-04] MEDS: amLODIPine 5 MG TAB PO SCH ×2 (07:41→20:47)
[2020-04-04] MEDS: MULTIVITAMINS, THERA 1 EACH TAB PO SCH (07:41)
[2020-04-04] MEDS: LEVOTHYROXINE 25 MCG TAB PO SCH (07:41)
[2020-04-04] MEDS: FINASTERIDE 5 MG TAB PO SCH (07:41)
[2020-04-04] MEDS: PANTOPRAZOLE 40 MG TABLET PO SCH (07:42)
[2020-04-04] MEDS: DULoxetine HCL 60 MG CAPSULE.DR PO SCH (07:47)
[2020-04-04] MEDS: CALCIUM CARBONATE 500 MG CHEWABLE PO SCH (07:47)
[2020-04-04 07:50] LABS: Calcium 8.1 mg/dL (8.4-10.2); Potassium 4.1 mmol/L (3.5-5.1)
[2020-04-04 08:02] LABS: Glucose,Whole Blood 194 mg/dL (75-99)
[2020-04-04] MEDS: predniSONE 10 MG TAB PO SCH (08:51)
[2020-04-04] MEDS: INSULIN ASPART (NovoLOG) 100 UNIT/ML VIAL SQ SCH ×4 (08:51→20:47)
[2020-04-04] MEDS: METOPROLOL TARTRATE 50 MG TAB PO SCH ×2 (08:51→20:47)
[2020-04-04 12:06] LABS: Glucose,Whole Blood 324 mg/dL (75-99)
--- NOTE | 2020-04-04 13:07 | P.HPIM ---
History of Present Illness Patient was brought in apparently if her confusion what patient appears to have lot of sleep issues patient is alert and oriented 3 patient was ruled out for any infectious causes no infection was evident chest x-ray did not show any significant abnormality urine UA is not abnormal. His confusion may be related to probably his medications and the patient has a lot of sleep issues sleepwalking. Patient is on trazodone as well as Klonopin for sleep. On very high-dose of Klonopin. Patient lack of sleep neck sleepiness appears to be related to depression. Patient was asked to follow-up with the his primary psychiatrist and his trazodone dose may need to be increased and patient probably will need another medication for depression. Klonopin probably need to be avoided and I'll give him melatonin on as-needed basis for sleep. Patient is also on tramadol which she believes may have contributed to some of his issues including her confusion, nightmares and lack of sleep, which can happen with tramadol because of which tramadol is being discontinued patient does have chronic kidney disease and had a renal transplant in the past. Patient's serum creatinine is at his baseline. Review of Systems REVIEW OF SYSTEMS: CONSTITUTIONAL: No fever, no malaise, no fatigue. HEENT: No recent visual problems or hearing problems. Denied any sore throat. CARDIOVASCULAR: No chest pain, orthopnea, PND, no palpitations, no syncope. PULMONARY: No shortness of breath, no cough, no hemoptysis. GASTROINTESTINAL: No diarrhea, no nausea, no vomiting, no abdominal pain. NEUROLOGICAL: No headaches, no weakness, no numbness. HEMATOLOGICAL: Denies any bleeding or petechiae. GENITOURINARY: Denies any burning micturition, frequency, or urgency. MUSCULOSKELETAL/RHEUMATOLOGICAL: Denies any joint pain, swelling, or any muscle pain. ENDOCRINE: Denies any polyuria or polydipsia. The rest of the 14-point review of systems is negative. 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." Hard of hearing, LOW PLATELETS, History of Any Multi-Drug Resistant Organisms: None Reported Past Surgical History: Orthopedic Surgery Additional Past Surgical History / Comment(s): kidney transplant, parathyroid surgery, knee surgery, pericardiocentesis Past Anesthesia/Blood Transfusion Reactions: No Reported Reaction Past Psychological History: Anxiety, Depression Smoking Status: Never smoker Past Alcohol Use History: Rare Past Drug Use History: None Reported - Past Family History Father Family Medical History: Deep Vein Thrombosis (DVT) Son(s) Family Medical History: Cancer Additional Family Medical History / Comment(s): Skin cancer. Medications and Allergies Home Medications Medication Instructions Recorded Confirmed Type Finasteride [Proscar] 5 mg PO DAILY@79902/09/17 04/03/20 History Tamsulosin HCl [Flomax] 0.4 mg PO DAILY@79902/09/17 04/03/20 History DULoxetine HCL [Cymbalta] 120 mg PO DAILY@79904/19/18 04/03/20 History Multivitamins, Thera [Multivitamin 1 tab PO DAILY@79912/31/18 04/03/20 History (formulary)] Atorvastatin Calcium [Lipitor] 20 mg PO HS@209910/14/19 04/03/20 History Levothyroxine Sodium [Levoxyl] 25 mcg PO DAILY@79912/18/19 04/03/20 History Vit C/E/Zn/Coppr/Lutein/Zeaxan 1 cap PO DAILY@79912/18/19 04/03/20 History [Preservision Areds 2 Softgel] amLODIPine [Norvasc] 5 mg PO BID@0800,2100 12/18/19 04/03/20 History Calcium Carbonate [Tums] 1,000 mg PO DAILY@79912/28/19 04/03/20 History Eltrombopag Olamine [Promacta] 50 mg PO DAILY@59912/28/19 04/03/20 History Pantoprazole [Protonix] 40 mg PO DAILY@79912/28/19 04/03/20 History Eltrombopag Olamine [Promacta] 25 mg PO DAILY@59902/23/20 04/03/20 History Metoprolol Tartrate [Lopressor] 50 mg PO BID@0800,2100 03/05/20 04/03/20 History rOPINIRole HCL [Requip] 0.25 mg PO HS tab 03/10/20 04/03/20 Rx Amitriptyline HCl [Elavil] 100 mg PO HS 04/03/20 04/03/20 History INSULIN LISPRO (HumaLOG) [humaLOG] See Protocol SQ TID-W/MEALS 04/03/20 04/03/20 History Insulin Glargine [Lantus] 25 units SQ HS 04/03/20 04/03/20 History Nystatin 100,000 Unit/ml Susp 400,000 unit PO QID PRN 04/03/20 04/03/20 History [Mycostatin Oral Susp] Tacrolimus [Prograf] 1 mg PO BID 04/03/20 04/03/20 History mycophenolate mofetiL [Cellcept] 250 mg PO BID@0800,2100 04/03/20 04/03/20 Histo ry predniSONE 10 mg PO DAILY@0800 04/03/20 04/03/20 History Acetaminophen Tab [Tylenol] 650 mg PO Q4H #30 tab 04/04/20 Rx clonazePAM [KlonoPIN] 0.5 mg PO HS PRN #6 tab 04/04/20 04/03/20 Rx traZODone HCL [Desyrel] 100 mg PO HS PRN #0 04/04/20 04/03/20 Rx Allergies Allergy/AdvReac Type Severity Reaction Status Date / Time morphine Allergy Itching Verified 04/03/20 21:41 Physical Exam Vitals: Vital Signs Temp Pulse Pulse Resp BP BP Pulse Ox 04/04/20 07:00 97.7 F 81 18 144/88 96 04/04/20 03:40 18 04/04/20 03:01 98.1 F 87 18 149/94 95 04/03/20 23:00 18 04/03/20 19:45 18 04/03/20 19:27 98.2 F 77 18 132/82 94 L 04/03/20 18:00 82 16 132/91 96 04/03/20 14:03 98.0 F 64 18 113/87 97 Intake and Output 04/03/20 04/04/20 04/04/20 22:59 06:59 14:59 Output Total 600 Balance -600 Output: Urine 600 Other: Voiding Method Urinal Urinal # Voids 1 Weight 90.718 kg PHYSICAL EXAMINATION: GENERAL: The patient is alert and oriented x3, not in any acute distress. Well developed, well nourished. Patient overall appears to be bit slow does have some urinary hearing problems HEENT: Pupils are round and equally reacting to light. EOMI. No scleral icterus. No conjunctival pallor. Normocephalic, atraumatic. No pharyngeal erythema. No thyromegaly. CARDIOVASCULAR: S1 and S2 present. No murmurs, rubs, or gallops. PULMONARY: Chest is clear to auscultation, no wheezing or crackles. ABDOMEN: Soft, nontender, nondistended, normoactive bowel sounds. No palpable organomegaly. MUSCULOSKELETAL: No joint swelling or deformity. EXTREMITIES: No cyanosis, clubbing, or pedal edema. NEUROLOGICAL: Gross neurological examination did not reveal any focal deficits. SKIN: No rashes. Results CBC & Chem 7: 04/04/20 07:14 04/04/20 07:14 Labs: Abnormal Lab Results - Last 24 Hours (Table) 04/03/20 04/03/20 04/03/20 Range/Units 14:50 14:50 14:50 WBC 11.0 H (3.8-10.6) k/uL RDW 17.1 H (11.5-15.5) % Neutrophils # 9.5 H (1.3-7.7) k/uL Lymphocytes # 0.5 L (1.0-4.8) k/uL Sodium (137-145) mmol/L BUN 23 H (9-20) mg/dL Creatinine 1.38 H (0.66-1.25) mg/dL Glucose (74-99) mg/dL POC Glucose (mg/dL) (75-99) mg/dL Calcium (8.4-10.2) mg/dL Total Protein 5.7 L (6.3-8.2) g/dL Urine Blood Trace H (Negative) 04/04/20 04/04/20 04/04/20 Range/Units 07:14 07:14 08:00 WBC (3.8-10.6) k/uL RDW 17.1 H (11.5-15.5) % Neutrophils # (1.3-7.7) k/uL Lymphocytes # 0.8 L (1.0-4.8) k/uL Sodium 136 L (137-145) mmol/L BUN 23 H (9-20) mg/dL Creatinine 1.30 H (0.66-1.25) mg/dL Glucose 204 H (74-99) mg/dL POC Glucose (mg/dL) 194 H (75-99) mg/dL Calcium 8.1 L (8.4-10.2) mg/dL Total Protein (6.3-8.2) g/dL Urine Blood (Negative) 04/04/20 Range/Units 12:05 WBC (3.8-10.6) k/uL RDW (11.5-15.5) % Neutrophils # (1.3-7.7) k/uL Lymphocytes # (1.0-4.8) k/uL Sodium (137-145) mmol/L BUN (9-20) mg/dL Creatinine (0.66-1.25) mg/dL Glucose (74-99) mg/dL POC Glucose (mg/dL) 324 H (75-99) mg/dL Calcium (8.4-10.2) mg/dL Total Protein (6.3-8.2) g/dL Urine Blood (Negative) Thrombosis Risk Factor Assmnt - Choose All That Apply Each Factor Represents 1 point: Obesity (BMI >25) Each Risk Factor Represents 3 Points: Age 75 years or older Thrombosis Risk Factor Assessment Total Risk Factor Score: 4 Thrombosis Risk Factor Assessment Level: Moderate Risk Assessment and Plan Plan: -Possible altered mental status, confusion: Note infection probably related to toxic encephalopathy from medications as mentioned above, we'll is being discontinued and cutting down the dose of clonidine patient's main issue appears to be lack of sleep. Patient will need further evaluation by a sleep sp ecialist and that his depression need to be treated. As of now didn't increase the dose of trazodone but I asked him to follow up with his psychiatric rest as an outpatient and he may need the trazodone dose to be increased and will need another medication for depression and anxiety. -Atrial fibrillation: Patient is pleasant is sinus rhythm, not on any anticoagulation at this time -Depression, lack of sleep: Management as mentioned above -Type 2 diabetes mellitus -Chronic kidney disease stage III status post renal transplant continue with the transfer and ejection medications -Hyperlipidemia -Hypertension -Hypothyroidism Patient will be discharged today with the above-mentioned medication changes.
--- NOTE | 2020-04-04 13:08 | P.DS ---
Providers Date of admission: 04/03/20 18:10 Attending physician: Nadeem Curtis Consults: 04/03/20 18:14 Consult Physician Routine Consulting Provider: Cathleen Dubois Consult Reason/Comments: Hallucinations, confusion Do you want consulting provider notified?: Yes Primary care physician: Narinder Rosenberg [facility] Course: Please refer to HPI for further details Patient Condition at Discharge: Fair Plan - Discharge Summary Discharge Rx Participant: No New Discharge Prescriptions: New Acetaminophen Tab [Tylenol] 650 mg PO Q4H #30 tab Continue Finasteride [Proscar] 5 mg PO DAILY@0800 Tamsulosin HCl [Flomax] 0.4 mg PO DAILY@0800 DULoxetine HCL [Cymbalta] 120 mg PO DAILY@0800 Multivitamins, Thera [Multivitamin (formulary)] 1 tab PO DAILY@0800 Atorvastatin Calcium [Lipitor] 20 mg PO HS@2100 Levothyroxine Sodium [Levoxyl] 25 mcg PO DAILY@0800 amLODIPine [Norvasc] 5 mg PO BID@0800,2100 Vit C/E/Zn/Coppr/Lutein/Zeaxan [Preservision Areds 2 Softgel] 1 cap PO DAILY@0800 Pantoprazole [Protonix] 40 mg PO DAILY@0800 Eltrombopag Olamine [Promacta] 50 mg PO DAILY@0600 Calcium Carbonate [Tums] 1,000 mg PO DAILY@0800 Eltrombopag Olamine [Promacta] 25 mg PO DAILY@0600 Metoprolol Tartrate [Lopressor] 50 mg PO BID@0800,2100 rOPINIRole HCL [Requip] 0.25 mg PO HS tab Insulin Glargine [Lantus] 25 units SQ HS INSULIN LISPRO (HumaLOG) [humaLOG] See Protocol SQ TID-W/MEALS mycophenolate mofetiL [Cellcept] 250 mg PO BID@0800,2100 Nystatin 100,000 Unit/ml Susp [Mycostatin Oral Susp] 400,000 unit PO QID PRN PRN Reason: thrush predniSONE 10 mg PO DAILY@0800 Tacrolimus [Prograf] 1 mg PO BID Amitriptyline HCl [Elavil] 100 mg PO HS traZODone HCL [Desyrel] 100 mg PO HS PRN #0 PRN Reason: Insomnia Changed clonazePAM [KlonoPIN] 0.5 mg PO HS PRN #6 tab PRN Reason: Anxiety Discontinued traMADol HCL 50 mg PO BID PRN PRN Reason: Pain Discharge Medication List Finasteride [Proscar] 5 mg PO DAILY@79902/09/17 [History] Tamsulosin HCl [Flomax] 0.4 mg PO DAILY@79902/09/17 [History] DULoxetine HCL [Cymbalta] 120 mg PO DAILY@79904/19/18 [History] Multivitamins, Thera [Multivitamin (formulary)] 1 tab PO DAILY@79912/31/18 [ History] Atorvastatin Calcium [Lipitor] 20 mg PO HS@209910/14/19 [History] Levothyroxine Sodium [Levoxyl] 25 mcg PO DAILY@79912/18/19 [History] Vit C/E/Zn/Coppr/Lutein/Zeaxan [Preservision Areds 2 Softgel] 1 cap PO DAILY@79912/18/19 [History] amLODIPine [Norvasc] 5 mg PO BID@08,209912/18/19 [History] Calcium Carbonate [Tums] 1,000 mg PO DAILY@79912/28/19 [History] Eltrombopag Olamine [Promacta] 50 mg PO DAILY@59912/28/19 [History] Pantoprazole [Protonix] 40 mg PO DAILY@79912/28/19 [History] Eltrombopag Olamine [Promacta] 25 mg PO DAILY@59902/23/20 [History] Metoprolol Tartrate [Lopressor] 50 mg PO BID@08,209903/05/20 [History] rOPINIRole HCL [Requip] 0.25 mg PO HS tab 03/10/20 [Rx] Amitriptyline HCl [Elavil] 100 mg PO HS 04/03/20 [History] INSULIN LISPRO (HumaLOG) [humaLOG] See Protocol SQ TID-W/MEALS 04/03/20 [History] Insulin Glargine [Lantus] 25 units SQ HS 04/03/20 [History] Nystatin 100,000 Unit/ml Susp [Mycostatin Oral Susp] 400,000 unit PO QID PRN 04/03/20 [History] Tacrolimus [Prograf] 1 mg PO BID 04/03/20 [History] mycophenolate mofetiL [Cellcept] 250 mg PO BID@0800,2100 04/03/20 [History] predniSONE 10 mg PO DAILY@0800 04/03/20 [History] Acetaminophen Tab [Tylenol] 650 mg PO Q4H #30 tab 04/04/20 [Rx] clonazePAM [KlonoPIN] 0.5 mg PO HS PRN #6 tab 04/04/20 [Rx] traZODone HCL [Desyrel] 100 mg PO HS PRN #0 04/04/20 [Rx] Follow up Appointment(s)/Referral(s): Narinder Rosenberg DO [Primary Care Provider] - 3 Days (office closed at time of discahrge. Please call to make appointment) Discharge Disposition: HOME SELF-CARE
[2020-04-04 17:02] LABS: Glucose,Whole Blood 388 mg/dL (75-99)
--- NOTE | 2020-04-04 17:19 | CT ---
EXAMINATION TYPE: CT angio head DATE OF EXAM: 04/04/2020 COMPARISON: None HISTORY: Fall, hit head CT DLP: 745.7 mGycm Automated exposure control for dose reduction was used. CONTRAST: Performed with IV Contrast, patient injected with 80 mL of Isovue 370. There are 3-D post processed images. There is arterial flow in the vertebrobasilar artery system. There is arterial flow in the anterior m iddle and posterior cerebral arteries. There is normal contrast opacification of the venous sinuses. The basilar artery fills mostly from the left vertebral artery. There is normal contrast opacification of the intracranial internal carotid arteries. There is no mass effect. I see no evidence of intracranial aneurysm or neovascularity. There is no ev idence of intracranial arterial stenosis. There is no evidence of arterial dissection. IMPRESSION: Negative CT angiogram of the brain.
--- NOTE | 2020-04-04 17:20 | XR ---
EXAMINATION TYPE: XR shoulder complete RT DATE OF EXAM: 04/04/2020 COMPARISON: NONE HISTORY: Shoulder pain. Fall. TECHNIQUE: 3 views FINDINGS: There is minor spurring at the inferior glenohumeral joint. I see no fracture nor dislocati on. Scapula is intact. IMPRESSION: Minor arthritic changes. No fracture seen.
[2020-04-04] MEDS: TACROLIMUS 0.5 MG CAP PO SCH ×2 (17:26→20:46)
[2020-04-04] MEDS: ACETAMINOPHEN TAB 325 MG TAB PO PRN ×2 (18:19→23:37)
[2020-04-04 20:30] LABS: Glucose,Whole Blood 277 mg/dL (75-99)
[2020-04-04] MEDS: AMITRIPTYLINE HCL 25 MG TAB PO SCH (20:47)
[2020-04-04] MEDS: INSULIN DETEMIR (LEVEMIR) 100 UNIT/ML SYR SQ SCH (20:47)
[2020-04-04] MEDS: ATORVASTATIN 20 MG TAB PO SCH (20:47)
[2020-04-05] MEDS: ELTROMBOPAG OLAMINE 25 MG PO SCH (05:31)
[2020-04-05] MEDS: ELTROMBOPAG OLAMINE 50 MG PO SCH (05:32)
[2020-04-05 07:00] LABS: Glucose,Whole Blood 105 mg/dL (75-99)
[2020-04-05] MEDS: INSULIN ASPART (NovoLOG) 100 UNIT/ML VIAL SQ SCH ×4 (07:21→20:23)
[2020-04-05] MEDS: MULTIVITAMINS, THERA 1 EACH TAB PO SCH (07:28)
[2020-04-05] MEDS: PANTOPRAZOLE 40 MG TABLET PO SCH (07:28)
[2020-04-05] MEDS: amLODIPine 5 MG TAB PO SCH ×2 (07:28→20:23)
[2020-04-05] MEDS: TAMSULOSIN 0.4 MG CAP.ER.24H PO SCH (07:28)
[2020-04-05] MEDS: METOPROLOL TARTRATE 50 MG TAB PO SCH ×2 (07:28→20:23)
[2020-04-05] MEDS: CALCIUM CARBONATE 500 MG CHEWABLE PO SCH (07:29)
[2020-04-05] MEDS: FINASTERIDE 5 MG TAB PO SCH (07:29)
[2020-04-05] MEDS: predniSONE 10 MG TAB PO SCH (07:29)
[2020-04-05] MEDS: DULoxetine HCL 60 MG CAPSULE.DR PO SCH (07:29)
[2020-04-05] MEDS: LEVOTHYROXINE 25 MCG TAB PO SCH (07:29)
[2020-04-05] MEDS: TACROLIMUS 0.5 MG CAP PO SCH ×2 (07:31→20:23)
--- NOTE | 2020-04-05 10:03 | P.PN ---
Subjective Patient was brought in apparently if her confusion what patient appears to have lot of sleep issues patient is alert and oriented 3 patient was ruled out for any infectious causes no infection was evident chest x-ray did not show any significant abnormality urine UA is not abnormal. His confusion may be related to probably his medications and the patient has a lot of sleep issues sleepwalking. Patient is on trazodone as well as Klonopin for sleep. On very high-dose of Klonopin. Patient lack of sleep neck sleepiness appears to be related to depression. Patient was asked to follow-up with the his primary psychiatrist and his trazodone dose may need to be increased and patient probably will need another medication for depression. Klonopin probably need to be avoided and I'll give him melatonin on as-needed basis for sleep. Patient is also on tramadol which she believes may have contributed to some of his issues including her confusion, nightmares and lack of sleep, which can happen with tramadol because of which tramadol is being discontinued patient does have chronic kidney disease and had a renal transplant in the past. Patient's serum creatinine is at his baseline. 04/05/2020 Patient continued to have tactile hallucinations and the patient had a fall just before his discharge because of his weight today his discharge was held CT of the head was obtained which did not show any intracranial hemorrhage and patient has a bruise in the left flank area and his complaining of pain in that area. PT and OT will evaluate the patient. Decision to is basically having tactile hallucinations because of which I consulted psychiatric neurology was consulted because of his confusion although patient is alert oriented 3 neurology was consulted as per request of his family. Patient said that he was actually able to sleep well last night Constitutional: Denied any fatigue denied any fever. Cardio vascular: denied any chest pain, palpitations Gastrointestinal denied any nausea vomiting Pulmonary: Denied any shortness of breath cough Neurologic denied any new focal deficits All inpatient medications were reviewed and appropriate changes in these medications as dictated in the interval history and assessment and plan. Objective - Vital Signs Vital signs: Vital Signs Temp 97.7 F 04/05/20 07:00 Pulse 76 04/05/20 07:00 Resp 17 04/05/20 07:40 BP 147/90 04/05/20 07:00 Pulse Ox 91 L 04/05/20 07:00 Intake & Output 04/04/20 04/05/20 04/05/20 18:59 06:59 18:59 Output Total 1 Balance -1 Output: Urine 1 Other: Voiding Method Urinal Urinal # Voids 1 2 # Bowel Movements 1 - Exam PHYSICAL EXAMINATION: GENERAL: The patient is alert and oriented x3, not in any acute distress. Well developed, well nourished. Patient overall appears to be bit slow does have some urinary hearing problems HEENT: Pupils are round and equally reacting to light. EOMI. No scleral icterus. No conjunctival pallor. Normocephalic, atraumatic. No pharyngeal erythema. No thyromegaly. CARDIOVASCULAR: S1 and S2 present. No murmurs, rubs, or gallops. PULMONARY: Chest is clear to auscultation, no wheezing or crackles. ABDOMEN: Soft, nontender, nondistended, normoactive bowel sounds. No palpable organomegaly. MUSCULOSKELETAL: No joint swelling or deformity. EXTREMITIES: No cyanosis, clubbing, or pedal edema. NEUROLOGICAL: Gross neurological examination did not reveal any focal deficits. SKIN: Bruise in the left flank area - Labs CBC & Chem 7: 04/04/20 07:14 04/04/20 07:14 Labs: Abnormal Lab Results - Last 24 Hours (Table) 04/04/20 04/04/20 04/04/20 Range/Units 12:05 17:00 20:28 POC Glucose (mg/dL) 324 H 388 H 277 H (75-99) mg/dL 04/05/20 Range/Units 06:58 POC Glucose (mg/dL) 105 H (75-99) mg/dL Assessment and Plan Plan: - altered mental status, confusion: Note infection probably related to toxic encephalopathy from medications as mentioned above, tramadol and the Klonopin were discontinued, patient does didn't appear to be on trazodone upon updated medication reconciliation. Patient does have depression patient is on duloxetine and amitriptyline. Neurology was consulted -Tactile hallucinations: Probably because of medications including Klonopin which were discontinued psychiatric was consulted because of his severe depression and lack of sleep because of depression -Insomnia: Secondary to depression -Fall: Patient will be evaluated by physical therapy and occupational therapy, rule out intracranial hemorrhage -Atrial fibrillation: Patient is pleasant is sinus rhythm, not on any anticoagu lation at this time -Type 2 diabetes mellitus -Chronic kidney disease stage III status post renal transplant continue with the transplant antirejection medications -Hyperlipidemia -Hypertension -Hypothyroidism
[2020-04-05 11:30] LABS: Glucose,Whole Blood 241 mg/dL (75-99)
[2020-04-05] MEDS: ACETAMINOPHEN TAB 325 MG TAB PO PRN ×3 (11:40→22:27)
[2020-04-05 16:52] LABS: Glucose,Whole Blood 333 mg/dL (75-99)
--- NOTE | 2020-04-05 18:55 | P.CNNES ---
History of Present Illness Consult date: 04/05/20 Reason for Consult: confusion and hallucinations Chief complaint: confusion and hallucinations History of Present Illness: The patient is a 79-year-old male who is seen in neurologic consultation on April 05, 2020, via teleneurology. The patient was apparently brought into the emergency department by his , because of confusion and hallucinations. History is obtained from the chart. The patient is unable to provide any history. Apparently the patient has been having increasing confusion and hallucinations over the previous week. He has not had any signs of infection. The patient apparently has been sleeping poorly. The patient himself denies hallucinations. He does later state that he has been seen and and bugs in the room. He reports having difficulty with his memory. He says that his handles the finances, cooking, shopping. The patient reports occasionally forgetting to turn off the water, stove or to close the refrigerator. The patient admits to walking in his sleep. He denies shuffling gait. He does walk with the assistance of a walker. He reports falling at times. He has difficulty with balance. He denies difficulty swallowing and changes in vision. Review of Systems Constitutional: Reports poor appetite 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." Hard of hearing, LOW PLATELETS, History of Any Multi-Drug Resistant Organisms: None Reported Past Surgical History: Orthopedic Surgery Additional Past Surgical History / Comment(s): kidney transplant, parathyroid surgery, knee surgery, pericardiocentesis Past Anesthesia/Blood Transfusion Reactions: No Reported Reaction Past Psychological History: Anxiety, Depression Smoking Status: Never smoker Past Alcohol Use History: Rare Past Drug Use History: None Reported - Past Family History Father Family Medical History: Deep Vein Thrombosis (DVT) Son(s) Family Medical History: Cancer Additional Family Medical History / Comment(s): Skin cancer. Medications and Allergies Home Medications Medication Instructions Recorded Confirmed Type Finasteride [Proscar] 5 mg PO DAILY@79902/09/17 04/03/20 History Tamsulosin HCl [Flomax] 0.4 mg PO DAILY@79902/09/17 04/03/20 History DULoxetine HCL [Cymbalta] 120 mg PO DAILY@79904/19/18 04/03/20 History Multivitamins, Thera [Multivitamin 1 tab PO DAILY@79912/31/18 04/03/20 History (formulary)] Atorvastatin Calcium [Lipitor] 20 mg PO HS@209910/14/19 04/03/20 History Levothyroxine Sodium [Levoxyl] 25 mcg PO DAILY@79912/18/19 04/03/20 History Vit C/E/Zn/Coppr/Lutein/Zeaxan 1 cap PO DAILY@79912/18/19 04/03/20 History [Preservision Areds 2 Softgel] amLODIPine [Norvasc] 5 mg PO BID@0800,209912/18/19 04/03/20 History Calcium Carbonate [Tums] 1,000 mg PO DAILY@79912/28/19 04/03/20 History Eltrombopag Olamine [Promacta] 50 mg PO DAILY@59912/28/19 04/03/20 History Pantoprazole [Protonix] 40 mg PO DAILY@0812/28/19 04/03/20 History Eltrombopag Olamine [Promacta] 25 mg PO DAILY@59902/23/20 04/03/20 History Metoprolol Tartrate [Lopressor] 50 mg PO BID@0800,209903/05/20 04/03/20 History rOPINIRole HCL [Requip] 0.25 mg PO HS tab 03/10/20 04/03/20 Rx Amitriptyline HCl [Elavil] 100 mg PO HS 04/03/20 04/03/20 History INSULIN LISPRO (HumaLOG) [humaLOG] See Protocol SQ TID-W/MEALS 04/03/20 04/03/20 History Insulin Glargine [Lantus] 25 units SQ HS 04/03/20 04/03/20 History Nystatin 100,000 Unit/ml Susp 400,000 unit PO QID PRN 04/03/20 04/03/20 History [Mycostatin Oral Susp] Tacrolimus [Prograf] 1 mg PO BID 04/03/20 04/03/20 History mycophenolate mofetiL [Cellcept] 250 mg PO BID@0800,2100 04/03/20 04/03/20 History predniSONE 10 mg PO DAILY@0800 04/03/20 04/03/20 History Acetaminophen Tab [Tylenol] 650 mg PO Q4H #30 tab 04/04/20 Rx clonazePAM [KlonoPIN] 0.5 mg PO HS PRN #6 tab 04/04/20 04/03/20 Rx traZODone HCL [Desyrel] 100 mg PO HS PRN #0 04/04/20 04/03/20 Rx Allergies Allergy/AdvReac Type Severity Reaction Status Date / Time morphine Allergy Itching Verified 04/03/20 21:41 Physical Examination - Vital Signs Vital Signs: Vital Signs Temp Pulse Resp BP Pulse Ox 04/05/20 07:40 17 04/05/20 07:00 97.7 F 76 17 147/90 91 L 04/05/20 01:45 97.9 F 82 18 158/95 95 04/04/20 19:10 97.2 F L 86 16 140/88 94 L 04/04/20 14:44 97.7 F 85 18 147/88 95 Intake and Output 04/04/20 04/05/20 04/05/20 22:59 06:59 14:59 Output Total 1 Balance -1 Output: Urine 1 Other: Voiding Method Urinal Urinal Urinal # Voids 1 2 # Bowel Movements 1 Gen.: The patient is reclining in the bed. He is well-nourished, well-developed and in no acute distress. HEENT: Head is atraumatic, normocephalic. Fundus not visualized. There is no scleral icterus. Mucous membranes are moist. Heart: Regular rate and rhythm Extremities: Without edema Neurological examination Mental status: The patient is awake and alert. He is oriented to his full name. He spells out his entire name. He is not oriented to his current age. He states his age to be "75" patient is oriented to the current year and his location. He states the month is "February". He is unable to name the mold hoister. The patient is very hard of hearing. He is unable to sp ell "world" correctly, forward or backward. The patient is able to recite all of the months of the year, forward. He is unable to recite the months of the year backward. There is no right left confusion. There is no finger agnosia. There is no a anomia. The patient is able to accurately follow two-step commands. The patient is able to accurately subtract 7 from 100. He is unable to continue the subtraction. The patient reports the upcoming holiday to be thanksgiving. There is a decreased blink rate, with a slightly masklike face. Cranial nerves: Pupils are equal, round and reactive to light. Visual de la garza are full to confrontation. Extraocular movements are intact. There is no ny stagmus. Facial sensation is intact. There is no facial asymmetry. Hearing is markedly diminished. Uvula and palate are midline. Shoulder shrug is symmetric. Tongue protrudes midline. Motor: Strength is 5/5 throughout. Coordination: There is bilateral dysmetria on finger to nose testing. Heel -to-iqbal testing is intact. Deep tendon reflexes: 2+/4+ at the knees bilaterally. Right upper extremity reflexes 2+/4+. Left upper extremity 1+/4+. Sensation: Grossly intact to light touch. Results - Laboratory Findings CBC and BMP: 04/04/20 07:14 04/04/20 07:14 Abnormal Lab Findings: Abnormal Labs 04/03/20 04/03/20 04/03/20 14:50 14:50 14:50 WBC 11.0 H RDW 17.1 H Neutrophils # 9.5 H Lymphocytes # 0.5 L Sodium BUN 23 H Creatinine 1.38 H Glucose POC Glucose (mg/dL) Calcium Total Protein 5.7 L Urine Blood Trace H 04/04/20 04/04/20 04/04/20 07:14 07:14 08:00 WBC RDW 17.1 H Neutrophils # Lymphocytes # 0.8 L Sodium 136 L BUN 23 H Creatinine 1.30 H Glucose 204 H POC Glucose (mg/dL) 194 H Calcium 8.1 L Total Protein Urine Blood 04/04/20 04/04/20 04/04/20 12:05 17:00 20:28 WBC RDW Neutrophils # Lymphocytes # Sodium BUN Creatinine Glucose POC Glucose (mg/dL) 324 H 388 H 277 H Calcium Total Protein Urine Blood 04/05/20 04/05/20 06:58 11:29 WBC RDW Neutrophils # Lymphocytes # Sodium BUN Creatinine Glucose POC Glucose (mg/dL) 105 H 241 H Calcium Total Protein Urine Blood Assessment and Plan Assessment: 1. Reported worsening visual and tactile hallucinations-? Parkinson's disease and/or dementia-Lewy body 2. 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 If the patient's Klonopin dose is 0.5 mg daily at bedtime, I believe this is an appropriate dose 2. Consider using Seroquel 25 mg by mouth daily at bedtime, for hallucinations 3. Consider changing ropinirole to Mirapex for treatment of restless leg syndrome 4. Patient should be referred to a neurologist for further outpatient workup Thank you for allowing me to participate in the care of this patient. Dr. Guan will assume coverage tomorrow Time with Patient: Greater than 30 (spent 45 minutes with patient via teleneurology)
[2020-04-05 20:16] LABS: Glucose,Whole Blood 160 mg/dL (75-99)
[2020-04-05] MEDS: AMITRIPTYLINE HCL 25 MG TAB PO SCH (20:22)
[2020-04-05] MEDS: INSULIN DETEMIR (LEVEMIR) 100 UNIT/ML SYR SQ SCH (20:23)
[2020-04-05] MEDS: ATORVASTATIN 20 MG TAB PO SCH (20:23)
[2020-04-06] MEDS: ELTROMBOPAG OLAMINE 25 MG PO SCH (06:10)
[2020-04-06] MEDS: ELTROMBOPAG OLAMINE 50 MG PO SCH (06:10)
[2020-04-06 07:05] LABS: Glucose,Whole Blood 56 mg/dL (75-99)
[2020-04-06 07:21] LABS: Glucose,Whole Blood 73 mg/dL (75-99)
[2020-04-06] MEDS: INSULIN ASPART (NovoLOG) 100 UNIT/ML VIAL SQ SCH ×4 (08:03→21:57)
[2020-04-06] MEDS: MULTIVITAMINS, THERA 1 EACH TAB PO SCH (08:13)
[2020-04-06] MEDS: amLODIPine 5 MG TAB PO SCH ×2 (08:13→21:57)
[2020-04-06] MEDS: TACROLIMUS 0.5 MG CAP PO SCH ×2 (08:13→21:58)
[2020-04-06] MEDS: DULoxetine HCL 60 MG CAPSULE.DR PO SCH (08:13)
[2020-04-06] MEDS: FINASTERIDE 5 MG TAB PO SCH (08:13)
[2020-04-06] MEDS: METOPROLOL TARTRATE 50 MG TAB PO SCH ×2 (08:13→21:57)
[2020-04-06] MEDS: predniSONE 10 MG TAB PO SCH (08:14)
[2020-04-06] MEDS: TAMSULOSIN 0.4 MG CAP.ER.24H PO SCH (08:14)
[2020-04-06] MEDS: CALCIUM CARBONATE 500 MG CHEWABLE PO SCH (08:14)
[2020-04-06] MEDS: LEVOTHYROXINE 25 MCG TAB PO SCH (08:14)
[2020-04-06] MEDS: PANTOPRAZOLE 40 MG TABLET PO SCH (08:14)
[2020-04-06 08:19] LABS: Anisocytosis Slight; HCT 47.6 % (39.0-53.0); HGB 15.8 gm/dL (13.0-17.5); Hypochromasia Slight; MCH 30.1 pg (25.0-35.0); MCHC 33.2 g/dL (31.0-37.0); MCV 90.6 fL (80.0-100.0); Mean Platelet Volume 8.4; Platelet Count 246 k/uL (150-450); RBC 5.26 m/uL (4.30-5.90); RDW 16.9 % (11.5-15.5); WBC 9.2 k/uL (3.8-10.6)
[2020-04-06] MEDS: ACETAMINOPHEN TAB 325 MG TAB PO PRN ×2 (08:28→16:08)
[2020-04-06 08:33] LABS: Calcium 9.2 mg/dL (8.4-10.2); Potassium 4.2 mmol/L (3.5-5.1)
[2020-04-06 11:19] LABS: Glucose,Whole Blood 217 mg/dL (75-99)
[2020-04-06] MEDS ORDERED: QUEtiapine 25 MG TAB PO PRN (12:49)
--- NOTE | 2020-04-06 14:03 | P.CN ---
Psychiatric Consult - . Consult date: 04/06/20 Consult:: 04/06/20 13:53 IDENTIFYING DATA: This patient is a 79-year-old male who currently lives in a house with his has 2 kids collects Social Security and a pension. HISTORY OF PRESENT ILLNESS: The patient presented to the hospital on 04/03 for confusion lasting approximately 1 week according to ER report. Patient had been complaining of hallucinations at the time presentations. Patient had a CT and CTA of his head which showed no signs of infection. Patient continued to be confused on the medical floors and experiencing hallucinations talking to himself and seeing ants on his tray according to nurse. There is also claims that patient has been having poor sleep and try to get off the bed. Neurology has been consulted and seen patient yesterday and suggested the possibility of Parkinson's dementia versus Lewy body dementia. Psychiatry is consulted for hallucinations and increasing confusion. Patient's was seen at the bedside and corroborated story from nurse. She expressed her concerns about patient reilly ving hallucinations and bizarre behaviors at home and acting more confused for the past week. She states that he has had some confusion which has been his baseline for years and suggests the possibility of underlying dementia as patient's mother and sister's had that as well. She states that now patient has been sleeping more during the day and claims that he has been on his medications from his primary care doc and has been taking them at home. Patient appeared to be sleepy and have poor attention span during the interview and answered some questions appropriately however was confused about the date today and only stated "it's the middle of the month" however correctly identified that it was March and the year was 2019. Patient believes that Raghu Burden was the president. He was vague about his reasons for coming into the hospital "for evaluation" and claims that he is doing "fine" and denied any complaints. At this time patient denies any suicidal or homical ideations, intent or plan. Patient denied using any recreational drugs. He claims that he did have hallucinations seeing bugs earlier however does not see them at this time. PAST PSYCHIATRIC HISTORY: Patient has a a history of possible dementia, depression and anxiety. Patient was on Elavil 100 mg at night, Cymbalta 120 mg during the day and Klonopin 1-2 mg when necessary at night. Patient denies any previous psychiatric hospitalizations. Patient's states that he was following up with Dr. Jaeger at [facility]. Patient denies any history of suicide attempts in the past. PAST MEDICAL HISTORY: A. fib, diabetes mellitus, hyperlipidemia, hypertension, thyroid disorder, kidney transplant in 2002, possible dementia. ALLERGIES: as per EMR. CHEMICAL DEPENDENCY HISTORY: as per HPI. FAMILY PSYCHIATRIC/SUBSTANCE USE HISTORY: As per states that his mother and sister had Alzheimer's dementia. SOCIAL HISTORY: Patient was born and raised in [facility]. Patient's states that she has an associates degree and worked as a [employer] for [employer]. Patient currently lives in his house with his has 2 kids collects Social Security and a pension. MENTAL STATUS EXAM: General Appearance: Patient appears to be stated age is lethargic, poor attention span, attempts to cooperate. Patient appears to have fair hygiene and grooming wearing hospital gown with poor eye contact. Behavior: Patient is calmly lying in bed without any agitated behavior. Poor attention span. Drowsy/sleepy. Speech: Patient's speech is fluent and nonpressured. Mood/Affect: Patient reports their mood is "ok", affect is congruent and constricted Suicidality/Homicidality: Patient denies having any suicidal or homicidal ideation intent or plan. Perceptions: Patient denies any visual hallucinations and denies any auditory hallucinations Though content/process: Hesitant, poverty of content. Logical. Significant confusion. Memory and concentration: AOX2, does not know the correct date, poor attention span. Cannot spell "WORLD" backwards. Does not know the current president. Judgment and insight: Limited IMPRESSIONS: Delirium, likely etiology secondary to toxic metabolic and medications versus Lewy body dementia/PD History of depressive disorder and anxiety. PLAN: -At this time patient DOES NOT meet criteria for inpatient psychiatric admission. 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 Decreased Elavil to 50 mg daily at bedtime with a plan to titrate down as this carries a significant anticholinergic burden. Decrease Cymbalta to 60 mg daily. Continue holding off Klonopin at this time. Change Seroquel to 25 mg daily at bedtime for psychosis/hallucinations/insomnia. -Will continue to follow along -Appreciate neurology recommendations. Will attempt to and treat for delirium firstly. -Please contact with any questions.
--- NOTE | 2020-04-06 14:34 | P.PN ---
Subjective Progress Note Date: 04/06/20 This is a 79-year-old gentleman admitted with hallucinations, delirium, sleep deprivation, subsequent fall, atrial fibrillation, chronic kidney disease and multiple other medical issues. Staff reports patient hallucinating seeing ants, chattering , conversing as if there are people in the room, reaching for things in midair. PT evaluation pending. Evaluated by psychiatry and neurology with recommendations noted and appreciated. Objective - Vital Signs Vital signs: Vital Signs Temp 97.9 F 04/06/20 00:15 Pulse 91 04/06/20 00:15 Resp 18 04/06/20 00:15 BP 160/87 04/06/20 00:15 Pulse Ox 95 04/06/20 00:15 Intake & Output 04/05/20 04/06/20 04/06/20 18:59 06:59 18:59 Other: Voiding Method Urinal # Voids 2 2 - Exam GENERAL: The patient is alert and oriented x2, no acute distress. Calm, Hard of hearing HEENT: Pupils are round and equally reacting to light. EOMI. No scleral icterus. No conjunctival pallor. Normocephalic, atraumatic. No pharyngeal erythema. No thyromegaly. CARDIOVASCULAR: S1 and S2 present. No murmurs, rubs, or gallops. PULMONARY: Chest is clear to auscultation, no wheezing or crackles. ABDOMEN: Soft, nontender, nondistended, normoactive bowel sounds. No palpable organomegaly. EXTREMITIES: No cyanosis, clubbing, or pedal edema. NEUROLOGICAL: Gross neurological examination did not reveal any focal deficits. 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 Craig History of melanoma Anxiety, depression Chronic back pain Plan: Continue on current medication regime ,monitoring and symptomatic treatment. Seroquel added to med regimen for psychosis, hallucinations, insomnia. PT/OT evaluation pending. [facility] consulted The impression and plan of care has been dictated as directed. : I performed a history and examination of this patient, discussed the same with the dictator. I agree with the dictator's note ,documented as a scribe. Any additional findings or plans will be noted.
[2020-04-06 17:12] LABS: Glucose,Whole Blood 275 mg/dL (75-99)
[2020-04-06] MEDS ORDERED: AMITRIPTYLINE HCL 50 MG TAB PO SCH (21:00)
[2020-04-06 21:30] LABS: Glucose,Whole Blood 291 mg/dL (75-99)
[2020-04-06] MEDS: INSULIN DETEMIR (LEVEMIR) 100 UNIT/ML SYR SQ SCH (21:57)
[2020-04-06] MEDS: ATORVASTATIN 20 MG TAB PO SCH (21:57)
[2020-04-06] MEDS: QUEtiapine 25 MG TAB PO SCH (21:58)
--- NOTE | 2020-04-06 22:17 | P.PN ---
Subjective Progress Note Date: 04/06/20 Patient was seen for a follow-up. Patient was initially seen by Dr. Dubois for neurological consultation yesterday. Please refer to her note for details. Patient continues to complain of pain in the left lower rib cage area. Patient states that he lives with his and his brought him here. He fell at home, after he tripped on something which she does not remember He landed on the left lower rib cage. It hurts in the back and the left lower rib cage region. There is big hematoma and a bruise. Objective - Vital Signs Vital signs: Vital Signs Temp 98.2 F 04/06/20 19:30 Pulse 92 04/06/20 19:30 Resp 20 04/06/20 19:30 BP 146/93 04/06/20 19:30 Pulse Ox 97 04/06/20 19:30 Intake & Output 04/06/20 04/06/20 04/07/20 06:59 18:59 06:59 Other: # Voids 2 - Exam Patient is alert and awake in no distress. He appears slightly tremulous. Patient knows that it is March 2020 although he thinks it is Monday and the date is the fourth of the month. He knows that he is in [facility] and name of the current president. Speech and language functions are normal. He has bilaterally positive palmomental reflex. The strength appears normal in the arms and legs. Left lower rib cage is very tender and painful. There is a moderate sized hematoma/bruise. - Labs CBC & Chem 7: 04/06/20 07:23 04/06/20 07:23 Labs: Abnormal Lab Results - Last 24 Hours (Table) 04/06/20 04/06/20 04/06/20 Range/Units 07:04 07:20 07:23 RDW 16.9 H (11.5-15.5) % BUN (9-20) mg/dL Glucose (74-99) mg/dL POC Glucose (mg/dL) 56 L 73 L (75-99) mg/dL 04/06/20 04/06/20 04/06/20 Range/Units 07:23 11:18 17:10 RDW (11.5-15.5) % BUN 22 H (9-20) mg/dL Glucose 71 L (74-99) mg/dL POC Glucose (mg/dL) 217 H 275 H (75-99) mg/dL 04/06/20 Range/Units 21:19 RDW (11.5-15.5) % BUN (9-20) mg/dL Glucose (74-99) mg/dL POC Glucose (mg/dL) 291 H (75-99) mg/dL Assessment and Plan Assessment: * Altered mental status with hallucinations. Probable delirium. Possible underlying cognitive impairment/dementia. * Polypharmacy * Status post fall * Depression and anxiety. * Atrial flutter/fibrillation * Diabetes * Hyperlipidemia * Hypertension Plan: * Appreciate psychiatric input. Prednisone to be discontinued. Reduce amitriptyline to 50 mg daily at bedtime. Decrease Cymbalta to 60 mg daily. Seroquel 25 mg daily at bedtime for psychosis/hallucinations/insomnia. Hold Klonopin. Would suggest avoiding abruptly discontinuing the Klonopin if he was taking Klonopin for long time to prevent benzodiazepine withdrawal seizure. * CTA of head with contrast 04/04/[address] head normal. No definitive evidence of hydrocephalus. * Patient has atrial fibrillation, currently not on anticoagulation perhaps due to fall risk. Would defer to IM. * Patient's B12 is normal 1071 on 10/15/2019. Folic acid normal 14.6. TSH was abnormal 10.15 on 06/29/2019. We'll repeat TSH. * X-ray of the ribs and thoracic spine due to severe pain.
[2020-04-07] MEDS: ELTROMBOPAG OLAMINE 25 MG PO SCH (05:55)
[2020-04-07] MEDS: ELTROMBOPAG OLAMINE 50 MG PO SCH (05:55)
[2020-04-07 05:57] LABS: Anisocytosis Slight; Basophils # (A) 0.1 k/uL (0-0.2); Basophils % (A) 1 %; Eosinophils # (A) 0.2 k/uL (0-0.7); Eosinophils % (A) 3 %; HCT 46.4 % (39.0-53.0); HGB 14.4 gm/dL (13.0-17.5); Hypochromasia Slight; Lymphocytes # (A) 0.9 k/uL (1.0-4.8); Lymphocytes % (A) 10 %; MCH 27.8 pg (25.0-35.0); MCV 89.5 fL (80.0-100.0); Mean Platelet Volume 8.7; Monocytes # (A) 0.7 k/uL (0-1.0); Monocytes % (A) 9 %; Neutrophils # (A) 6.2 k/uL (1.3-7.7); Neutrophils % (A) 76 %; Platelet Count 341 k/uL (150-450); RBC 5.18 m/uL (4.30-5.90); RDW 16.6 % (11.5-15.5); WBC 8.2 k/uL (3.8-10.6)
[2020-04-07 07:08] LABS: Glucose,Whole Blood 122 mg/dL (75-99)
[2020-04-07] MEDS: INSULIN ASPART (NovoLOG) 100 UNIT/ML VIAL SQ SCH ×4 (08:36→20:41)
[2020-04-07] MEDS: PANTOPRAZOLE 40 MG TABLET PO SCH (08:45)
[2020-04-07] MEDS: DULoxetine HCL 60 MG CAPSULE.DR PO SCH (08:45)
[2020-04-07] MEDS: TAMSULOSIN 0.4 MG CAP.ER.24H PO SCH (08:45)
[2020-04-07] MEDS: MULTIVITAMINS, THERA 1 EACH TAB PO SCH (08:46)
[2020-04-07] MEDS: TACROLIMUS 0.5 MG CAP PO SCH ×2 (08:46→20:40)
[2020-04-07] MEDS: LEVOTHYROXINE 25 MCG TAB PO SCH (08:46)
[2020-04-07] MEDS: CALCIUM CARBONATE 500 MG CHEWABLE PO SCH (08:46)
[2020-04-07] MEDS: amLODIPine 5 MG TAB PO SCH ×2 (08:46→20:39)
[2020-04-07] MEDS: FINASTERIDE 5 MG TAB PO SCH (08:46)
[2020-04-07] MEDS: METOPROLOL TARTRATE 50 MG TAB PO SCH ×2 (08:46→20:40)
[2020-04-07] MEDS: ACETAMINOPHEN TAB 325 MG TAB PO PRN ×2 (08:52→22:35)
[2020-04-07 10:58] LABS: African American GFR (CKD) 67.2 (60.0-200.0); Anion Gap 10.3 mmol/L (4.00-12.00); BUN/Creat Ratio 21.67 Ratio (12.00-20.00); Calcium 8.8 mg/dL (8.7-10.3); Carbon Dioxide 22.7 mmol/L (21.6-31.8); Potassium 4.4 mmol/L (3.5-5.5)
[2020-04-07 11:31] LABS: Glucose,Whole Blood 156 mg/dL (75-99)
--- NOTE | 2020-04-07 12:30 | XR ---
EXAMINATION TYPE: PA chest and bilateral rib series DATE OF EXAM: 04/07/2020 COMPARISON: 04/03/2020 HISTORY: 79-year-old male fall, rib pain, back pain TECHNIQUE: 9 views FINDINGS: Chest: Heart normal size. Patchy left mid and lower lung opacity likely areas of atelectasis. No cons olidation or pleural effusion is seen. No appreciable pneumothorax. Right RIBS: Nondisplaced fracture of the right anterolateral 10th rib. Left RIBS: Mildly displaced fracture of the left anterolateral eighth rib and likely the anterior lef t sixth and seventh ribs as well. IMPRESSION: 1. Chest: Patchy left mid and lower lung opacities likely areas of atelectasis. 2. Right ribs: Nondisplaced fracture right anterolateral 10th rib. 3. Left ribs: Mildly displaced fracture of the left anterolateral eighth rib and nondisplaced fractur es of the anterior left sixth and seventh ribs.
--- NOTE | 2020-04-07 12:35 | P.PN ---
Progress Note - Text Progress Note Date: 04/07/20 Interval History: Patient was seen today for psychiatric follow-up regarding patient's delirium. Patient's nurse claims that patient has been taking his medications and appears to be more awake and alert today and claims that she did not see him hallucinating. Patient's Elavil was decreased yesterday. Patient was also started on Seroquel at nighttime. Patient was seen at the bedside and appeared to be more awake and was alert and oriented 3 today. She knew who the current president was and appeared to have mild improvement in terms of his orientation and attention span. He states that he was able to sleep fairly last night after taking his medications. He claims that his will come to visit him later on today. He states that he does not have any depression or anxiety today. He claims that he has been eating his meals and taking his medications as prescribed. At this time patient denies any suicidal or homical ideations, intent or plan. Patient denies any auditory, visual hallucinations. Patient denies any side effects from the medications and has been compliant with meds. Mental Status Exam: General Appearance: Patient appears to be stated age is more awake today, improving attention span, attempts to cooperate. Patient appears to have fair hygiene and grooming wearing hospital gown Behavior: Patient is calmly lying in bed without any agitated behavior. Improving attention span attempts to cooperate Speech: Patient's speech is fluent and nonpressured. Mood/Affect: Patient reports their mood is "alright", affect is congruent and constricted Suicidality/Homicidality: Patient denies having any suicidal or homicidal ideation intent or plan. Perceptions: Patient denies any visual hallucinations and denies any auditory hallucinations Though content/process: Hesitant, poverty of content. Logical. Less confused today. Memory and concentration: AOX3, improving attention span. Can state the current president and the previous President was Judgment and insight: Limited, improving mildly Assessment Delirium, likely etiology secondary to toxic metabolic and medications versus Lewy body dementia/PD History of depressive disorder and anxiety. Plan: -At this time patient DOES NOT meet criteria for inpatient psychiatric admission. 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 Continue with Cymbalta to 60 mg daily. Continue holding off Klonopin at this time. Continue with Seroquel to 25 mg daily at bedtime for psychosis/hallucinations/insomnia. -Will continue to follow along -Appreciate neurology recommendations -Please contact with any questions.
--- NOTE | 2020-04-07 12:43 | XR ---
EXAMINATION TYPE: XR thoracic spine 3 views DATE OF EXAM: 04/07/2020 COMPARISON: NONE HISTORY: 79-year-old male fall and rib pain FINDINGS: Leftward truncal shift. 12 rib-bearing thoracic vertebral bodies. Mild degenerative disc disease mid thoracic spine. Alignment is maintained. Possible minimal superior endplate deformity of a midthoraci c vertebral body, possibly T7. Otherwise, vertebral body heights are maintained. IMPRESSION: 1. Possible minimal superior endplate deformity of a midthoracic vertebral body, probably T7 on the l ateral view. 2. Mild degenerative disc disease midthoracic spine. No malalignment.
--- NOTE | 2020-04-07 12:56 | P.PN ---
Subjective Progress Note Date: 04/07/20 This is a 79-year-old gentleman admitted with hallucinations, delirium, sleep deprivation, subsequent fall, atrial fibrillation, chronic kidney disease and multiple other medical issues. Staff reports patient hallucinating seeing ants, chattering , conversing as if there are people in the room, reaching for things in midair. PT evaluation pending. Evaluated by psychiatry and neurology with recommendations noted and appreciated. 04/07/2020 yesterday, Elavil decreased and received Seroquel at night, sensorium significantly improved. Creatinine 1.2. Good diet intake, consuming 75-100%. Afebrile, normal WBC. Complains of significant left ribcage tenderness, exacerbated by coughing, movement. Thoracic spine x-ray pending. X-ray reporting patchy left mid and lower lung opacity's, suspecting atelectasis, right ribs- nondisplaced fracture right anterior lateral 10th rib, left rib- mildly displaced flexure of the left anterior lateral eighth and nondisplaced fractures of the anterior left 6 and seventh rib. Maintaining O2 sats in the low 90s on room air. PT evaluation completed, recommendations pending. Objective - Vital Signs Vital signs: Vital Signs Temp 98.1 F 04/07/20 07:00 Pulse 77 04/07/20 07:00 Resp 18 04/07/20 07:00 BP 155/97 04/07/20 07:00 Pulse Ox 92 L 04/07/20 07:00 Intake & Output 04/06/20 04/07/20 04/07/20 18:59 06:59 18:59 Intake Total 700 Balance 700 Intake: Oral 700 Other: # Voids 1 # Bowel Movements 1 - Exam GENERAL: The patient is alert and oriented x3, no acute distress. HEENT: Pupils are round and equally reacting to light. EOMI. No scleral icterus. No conjunctival pallor. Normocephalic, atraumatic. Oral mucosa moist. CARDIOVASCULAR: S1 and S2 present. No murmurs, rubs, or gallops. PULMONARY: Chest is clear to auscultation, no wheezing or crackles. ABDOMEN: Soft, nontender, nondistended, normoactive bowel sounds. No palpable organomegaly. EXTREMITIES: No cyanosis, clubbing, or pedal edema. NEUROLOGICAL: Gross neurological examination did not reveal any focal deficits. SKIN: Bruise in the left flank area - Labs CBC & Chem 7: 04/07/20 05:20 04/07/20 05:20 Labs: Abnormal Lab Results - Last 24 Hours (Table) 04/06/20 04/06/20 04/07/20 Range/Units 17:10 21:19 05:20 RDW 16.6 H (11.5-15.5) % Lymphocytes # 0.9 L (1.0-4.8) k/uL Est GFR (CKD-EPI)NonAf (60.0-200.0) BUN/Creatinine Ratio (12.00-20.00) Ratio Glucose (70-110) mg/dL POC Glucose (mg/dL) 275 H 291 H (75-99) mg/dL TSH (0.350-5.500) uIU/mL 04/07/20 04/07/20 04/07/20 Range/Units 05:20 05:20 07:07 RDW (11.5-15.5) % Lymphocytes # (1.0-4.8) k/uL Est GFR (CKD-EPI)NonAf 58.0 L (60.0-200.0) BUN/Creatinine Ratio 21.67 H (12.00-20.00) Ratio Glucose 133 H (70-110) mg/dL POC Glucose (mg/dL) 122 H (75-99) mg/dL TSH 6.400 H (0.350-5.500) uIU/mL 04/07/20 Range/Units 11:29 RDW (11.5-15.5) % Lymphocytes # (1.0-4.8) k/uL Est GFR (CKD-EPI)NonAf (60.0-200.0) BUN/Creatinine Ratio (12.00-20.00) Ratio Glucose (70-110) mg/dL POC Glucose (mg/dL) 156 H (75-99) mg/dL TSH (0.350-5.500) uIU/mL Assessment and Plan Assessment: Altered mental status, acute delirium secondary to toxic metabolic encephalopathy, medication induced, possible Lewy body 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 Craig History of melanoma Anxiety, depression Chronic back pain Plan: Continue on current medication regime ,monitoring and symptomatic brandi tment. Incentive spirometer ordered, aggressive pulmonary toileting in a patient with multiple rib fractures. PT/OT recommendations pending. The impression and plan of care has been dictated as directed. : I performed a history and examination of this patient, discussed the same with the dictator. I agree with the dictator's note ,documented as a scribe. Any additional findings or plans will be noted.
--- NOTE | 2020-04-07 14:07 | P.PN ---
Subjective Progress Note Date: 04/07/20 Patient was seen for a follow-up. Patient was initially seen by Dr. Dubois for neurological consultation yesterday. Please refer to her note for details. Patient has not had any further hallucinations overnight. Patient's medications have been further optimized by psychiatrist. Patient continues to complain of pain in the left lower rib cage area. Patient states that he lives with his and his brought him here. He fell at home, after he tripped on something which she does not remember He landed on the left lower rib cage. It hurts in the back and the left lower rib cage region. There is big hematoma and a bruise. Objective - Vital Signs Vital signs: Vital Signs Temp 98.1 F 04/07/20 07:00 Pulse 77 04/07/20 07:00 Resp 18 04/07/20 07:00 BP 155/97 04/07/20 07:00 Pulse Ox 92 L 04/07/20 07:00 Intake & Output 04/06/20 04/07/20 04/07/20 18:59 06:59 18:59 Intake Total 700 Balance 700 Intake: Oral 700 Other: # Voids 1 # Bowel Movements 1 - Exam Patient is alert and awake in no distress. He appears slightly tremulous, better than yesterday. Patient knows that it is March 2020. He knows that he is in [facility] and name of the current president. Speech and language functions are normal. The strength appears normal in the arms and legs. - Labs CBC & Chem 7: 04/07/20 05:20 04/07/20 05:20 Labs: Abnormal Lab Results - Last 24 Hours (Table) 04/06/20 04/06/20 04/07/20 Range/Units 17:10 21:19 05:20 RDW 16.6 H (11.5-15.5) % Lymphocytes # 0.9 L (1.0-4.8) k/uL Est GFR (CKD-EPI)NonAf (60.0-200.0) BUN/Creatinine Ratio (12.00-20.00) Ratio Glucose (70-110) mg/dL POC Glucose (mg/dL) 275 H 291 H (75-99) mg/dL TSH (0.350-5.500) uIU/mL 09/04/07/20 04/07/20 Range/Units 05:20 05:20 07:07 RDW (11.5-15.5) % Lymphocytes # (1.0-4.8) k/uL Est GFR (CKD-EPI)NonAf 58.0 L (60.0-200.0) BUN/Creatinine Ratio 21.67 H (12.00-20.00) Ratio Glucose 133 H (70-110) mg/dL POC Glucose (mg/dL) 122 H (75-99) mg/dL TSH 6.400 H (0.350-5.500) uIU/mL 04/07/20 Range/Units 11:29 RDW (11.5-15.5) % Lymphocytes # (1.0-4.8) k/uL Est GFR (CKD-EPI)NonAf (60.0-200.0) BUN/Creatinine Ratio (12.00-20.00) Ratio Glucose (70-110) mg/dL POC Glucose (mg/dL) 156 H (75-99) mg/dL TSH (0.350-5.500) uIU/mL Assessment and Plan Assessment: * Altered mental status with hallucinations. Probable delirium. Possible underlying cognitive impairment/dementia. * Polypharmacy * Status post fall with rib fractures * Depression and anxiety. * Atrial flutter/fibrillation * Diabetes * Hyperlipidemia * Hypertension Plan: * Appreciate psychiatric input. Reduce amitriptyline further down to 25 mg daily at bedtime. Continue Cymbalta 60 mg daily. Seroquel 25 mg daily at bedtime for psychosis/hallucinations/insomnia. Hold Klonopin. Would suggest avoiding abruptly discontinuing the Klonopin if he was taking Klonopin for maurilio g time to prevent benzodiazepine withdrawal seizure. Patient's prednisone has been discontinued. If the patient has been on prednisone 10 mg daily for long time, watch for signs of hypoadrenalism. * CTA of head with contrast 04/04/[address] head normal. No definitive evidence of hydrocephalus. * Patient has atrial fibrillation, currently not on anticoagulation perhaps due to fall risk. Would defer to IM. * Patient's B12 is normal 1071 on 10/15/2019. Folic acid normal 14.6. TSH is mildly elevated 6.4, free T4 normal 1.40. * X-ray of the ribs revealed nondisplaced fracture of the right anterolateral 10th rib. Mildly displaced fracture of the left anterior lateral eighth rib and nondisplaced fracture of the anterior left sixth and seventh ribs. * X-ray of the thoracic spine revealed possible minimal superior endplate deformity of midthoracic vertebral body, probably T7 on the lateral view. Mild degenerative disc disease midthoracic spine. No malalignment. Orthopedics surgery consult initiated.
[2020-04-07 16:30] LABS: Glucose,Whole Blood 183 mg/dL (75-99)
[2020-04-07 20:09] LABS: Hemoglobin A1C 6.5 % (4.0-6.0)
[2020-04-07 20:29] LABS: Glucose,Whole Blood 181 mg/dL (75-99)
[2020-04-07] MEDS: ATORVASTATIN 20 MG TAB PO SCH (20:39)
[2020-04-07] MEDS: QUEtiapine 25 MG TAB PO SCH (20:40)
[2020-04-07] MEDS: INSULIN DETEMIR (LEVEMIR) 100 UNIT/ML SYR SQ SCH (20:41)
[2020-04-07] MEDS ORDERED: AMITRIPTYLINE HCL 25 MG TAB PO SCH (21:00)
[2020-04-08] MEDS ORDERED: traMADol 50 MG TAB PO PRN
[2020-04-08] MEDS: ELTROMBOPAG OLAMINE 50 MG PO SCH (05:33)
[2020-04-08] MEDS: ELTROMBOPAG OLAMINE 25 MG PO SCH (05:33)
[2020-04-08 07:00] LABS: Glucose,Whole Blood 61 mg/dL (75-99)
[2020-04-08] MEDS: INSULIN ASPART (NovoLOG) 100 UNIT/ML VIAL SQ SCH ×4 (07:14→22:00)
[2020-04-08 07:23] LABS: Glucose,Whole Blood 72 mg/dL (75-99)
[2020-04-08] MEDS: amLODIPine 5 MG TAB PO SCH ×2 (07:53→21:57)
[2020-04-08] MEDS: MULTIVITAMINS, THERA 1 EACH TAB PO SCH (07:53)
[2020-04-08] MEDS: METOPROLOL TARTRATE 50 MG TAB PO SCH ×2 (07:54→21:58)
[2020-04-08] MEDS: LEVOTHYROXINE 25 MCG TAB PO SCH (07:54)
[2020-04-08] MEDS: CALCIUM CARBONATE 500 MG CHEWABLE PO SCH (07:55)
[2020-04-08] MEDS: TAMSULOSIN 0.4 MG CAP.ER.24H PO SCH (07:55)
[2020-04-08] MEDS: FINASTERIDE 5 MG TAB PO SCH (07:55)
[2020-04-08] MEDS: PANTOPRAZOLE 40 MG TABLET PO SCH (07:55)
[2020-04-08] MEDS: TACROLIMUS 0.5 MG CAP PO SCH ×2 (09:00→21:56)
[2020-04-08] MEDS: DULoxetine HCL 60 MG CAPSULE.DR PO SCH (09:54)
[2020-04-08 11:35] LABS: Glucose,Whole Blood 221 mg/dL (75-99)
[2020-04-08] MEDS: predniSONE 10 MG TAB PO SCH (12:27)
--- NOTE | 2020-04-08 14:21 | P.PN ---
Subjective Progress Note Date: 04/08/20 This is a 79-year-old gentleman admitted with hallucinations, delirium, sleep deprivation, subsequent fall, atrial fibrillation, chronic kidney disease and multiple other medical issues. Staff reports patient hallucinating seeing ants, chattering , conversing as if there are people in the room, reaching for things in midair. PT evaluation pending. Evaluated by psychiatry and neurology with recommendations noted and appreciated. 04/07/2020 yesterday, Elavil decreased and received Seroquel at night, sensorium significantly improved. Creatinine 1.2. Good diet intake, consuming 75-100%. Afebrile, normal WBC. Complains of significant left ribcage tenderness, exacerbated by coughing, movement. Thoracic spine x-ray pending. X-ray reporting patchy left mid and lower lung opacity's, suspecting atelectasis, right ribs- nondisplaced fracture right anterior lateral 10th rib, left rib- mildly displaced flexure of the left anterior lateral eighth and nondisplaced fractures of the anterior left 6 and seventh rib. Maintaining O2 sats in the low 90s on room air. PT evaluation completed, recommendations pending. 04/08/2020 receiving Ultram for rib fracture pain. mildly more confused today compared to yesterday. Good diet intake with no nausea vomiting or diarrhea. Positive bowel movement yesterday. Blood sugars 61 early a.m., patient had declined hs snack. TSH 6.4, free T4 1.40. evaluated by PT with subacute rehab recommended at discharge. Maintaining O2 sats in the 90s on room air. Objective - Vital Signs Vital signs: Vital Signs Temp 97.6 F 04/08/20 09:09 Pulse 75 04/08/20 09:09 Resp 18 04/08/20 09:09 BP 134/77 04/08/20 09:09 Pulse Ox 95 04/08/20 09:09 Intake & Output 04/07/20 04/08/20 04/08/20 18:59 06:59 18:59 Intake Total 200 457 Balance 200 457 Intake: Oral 200 457 Other: Voiding Method Urinal Urinal # Voids 2 1 - Exam GENERAL: The patient is alert and oriented x2, no acute distress. HEENT: Pupils are round and equally reacting to light. EOMI. No scleral icterus. No conjunctival pallor. Normocephalic, atraumatic. Oral mucosa moist. CARDIOVASCULAR: S1 and S2 present. No murmurs, rubs, or gallops. PULMONARY: Chest is clear to auscultation, no wheezing or crackles. ABDOMEN: Soft, nontender, nondistended, normoactive bowel sounds. No palpable organomegaly. EXTREMITIES: No cyanosis, clubbing, or pedal edema. NEUROLOGICAL: Gross neurological examination did not reveal any focal deficits. Pleasantly confused. SKIN: Bruise in the left flank area - Labs CBC & Chem 7: 04/07/20 05:20 04/07/20 05:20 Labs: Abnormal Lab Results - Last 24 Hours (Table) 04/07/20 04/07/20 04/07/20 Range/Units 05:20 11:29 16:29 POC Glucose (mg/dL) 156 H 183 H (75-99) mg/dL Hemoglobin A1c 6.5 H (4.0-6.0) % 04/07/20 04/08/20 04/08/20 Range/Units 20:22 06:59 07:21 POC Glucose (mg/dL) 181 H 61 L 72 L (75-99) mg/dL Hemoglobin A1c (4.0-6.0) % Assessment and Plan Assessment: Altered mental status, acute delirium secondary to toxic metabolic encephalopathy, medication induced, possible Lewy body dementia related to Parkinson's disease Status post fall, sustaining multiple bilateral rib fractures Atelectasis Sleep deprivation Depression, History of Anxiety, History of Chronic renal failure stage II, history of renal transplant Recent sepsis secondary to underlying bilateral pneumonia, possibly gram- negative Diabetes mellitus type 2 Hypothyroidism CAD, history of CABG Hypertension Hyperlipidemia Chronic persistent atrial fibrillation, not on anticoagulation related to 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 Craig History of melanoma Anxiety, depression Chronic back pain Plan: Continue on current medication regime ,monitoring and symptomatic treatment. Levothyroxine increased to 75 mcg.. Mild increase in confusion could possibly be related to pain medication -discussed with staff to use Tylenol first with ultram only for breakthrough pain .prednisone resumed .aggressive pulmonary toilet obtained with incentive spirometer and reinforced .PT/OT. Discharge planning in progress for tomorrow to subacute rehab. The impression and plan of care has been dictated as directed. : I performed a history and examination of this patient, discussed the same with the dictator. I agree with the dictator's note ,documented as a scribe. Any additional findings or plans will be noted.
--- NOTE | 2020-04-08 14:33 | P.PN ---
Progress Note - Text Progress Note Date: 04/08/20 Interval History: Patient was seen today for psychiatric follow-up regarding patient's delirium. Patient's nurse claims that patient has been taking his medications and has been improving mildly however continues to be hallucinating at times. Patient's Elavil was decreased yesterday and will continue to be titrated off. Patient will remain on Seroquel. He was seen at the bedside with his and appeared to be more awake and alert today and was able to face time his daughter earlier and was speaking to her. claimed that patient has been improving in terms of his communication and appropriateness however continues to hallucinate at times. Patient was cooperative with video game script writer at the bedside and was alert and oriented 3 today. He had poor memory recall. He states that he has been taking his medications. Patient continues to have minimal insight as to why he is in the hospital. He states that he did not sleep well last night and admitted to hallucinations however was not able to describe them. He denies any current hallucinations. He states that he does not have any depression or anxiety today. He claims that he has been eating his meals and taking his medications as prescribed. At this time patient denies any suicidal or homical ideations, intent or plan. Patient denies any auditory, visual hallucinations. Patient denies any side effects from the medications and has been compliant with meds. Patient was noted after video game script writer left the room to be asking his several times to check underneath the bed because he believes that there is a "dog under there". Mental Status Exam: General Appearance: Patient appears to be stated age is more awake today, imp roving attention span, attempts to cooperate. Patient appears to have fair hygiene and grooming wearing hospital gown Behavior: Patient is calmly lying in bed without any agitated behavior. Improving attention span attempts to cooperate. Mildly confused today. Speech: Patient's speech is fluent and nonpressured. Mood/Affect: Patient reports their mood is "ok", affect is congruent and constricted Suicidality/Homicidality: Patient denies having any suicidal or homicidal ideation intent or plan. Perceptions: Patient denies any visual hallucinations and denies any auditory hallucinations Though content/process: Hesitant, poverty of content. Logical. Mildly confused today. Memory and concentration: AOX3, improving attention span however remains poor overall. Poor memory recall 0 out of 3 after 5 minutes. Poor abstraction. Judgment and insight: Limited, improving mildly Assessment Delirium, likely etiology secondary to toxic metabolic, medications (possible BZD withdrawal) versus Lewy body dementia/PD History of depressive disorder and anxiety. Plan: -At this time patient DOES NOT meet criteria for inpatient psychiatric admission. -Delirium precautions recommended with patient including - avoiding use of narcotics and CROWN AND BRIDGE TECHNICIAN sedatives, limit anticholinergic medications when possible, frequent re-orientation, minimize use of restraints, open window shades during the day and close them at night -Would recommend the following medication changes/additions: Discontinued Elavil at this time due to anticholinergic burden. Continue with Cymbalta to 60 mg daily. This patient was chronically on benzodiazepines and because it was discontinued, this may have precipitated/exacerbated delirium, therefore will start Ativan 0.5 mg daily at bedtime to prevent withdrawal. Continue with Seroquel to 25 mg daily at bedtime for psychosis/hallucinations/insomnia. -Will continue to follow along -Appreciate neurology recommendations -Please contact with any questions.
[2020-04-08] MEDS: bisacodyL 10 MG SUPP RECTAL STA ×2 (15:18→15:26)
[2020-04-08] MEDS: ACETAMINOPHEN TAB 325 MG TAB PO PRN (15:20)
[2020-04-08 16:55] LABS: Glucose,Whole Blood 230 mg/dL (75-99)
--- NOTE | 2020-04-08 17:32 | P.CNOR ---
History of Present Illness - [facility] Consult date: 04/08/20 Requesting physician: Florecita Lo Consult reason: fracture (Left-sided rib fracture status post fall and possible acute T7 compression fracture) History of present illness: Patient is a very pleasant 79-year-old male who is seen and examined at the bedside for further evaluation in regards to possible thoracic compression fracture and known rib fractures. Patient was brought to the emergency department on 04/03/2020 due to altered mental status. He was clear for discha rge the following day but sustained a fall prior to discharge. Since that time he has had increased pain towards his left ribs. He is not currently experiencing any pain in his thoracic spine. He states also since the fall he does have some pain near the incision on the left lower abdomen. He states he has a history of kidney transplant surgery performed in 2002. He states the pain at this location has been significant with moving in bed. He denies any lower extremity weakness or radiculopathy bilaterally. He still does admit to some chronic back pain. He does not feel his pain is significantly different following the fall. During his admission he continues to be seen by psychology, neurology, and medicine. Patient is awake, alert, and oriented the bedside and answering questions appropriately. Consultation was ultimately place after x- ray imaging showed evidence of possible T7 compression fracture deformity. Patient's other medical diagnoses include history of depression, history of anxiety, chronic renal failure with history of renal transplant, recent sepsis secondary to underlying bilateral pneumonia, hypothyroidism, history of CABG, diabetes mellitus type 2, hypertension, hyperlipidemia, chronic persistent atrial fibrillation, history of slow growing prostate cancer, chronic back pain, and history of melanoma. Patient is not having any difficulty with urination and states he has been able to urinate to the bathroom. He is not complaining of any other pain at the bedside other than his left-sided rib fracture pain and lower abdominal pain. 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." Hard of hearing, LOW PLATELETS, History of Any Multi-Drug Resistant Organisms: None Reported Past Surgical History: Orthopedic Surgery Additional Past Surgical History / Comment(s): kidney transplant, parathyroid surgery, knee surgery, pericardiocentesis Past Anesthesia/Blood Transfusion Reactions: No Reported Reaction Past Psychological History: Anxiety, Depression Smoking Status: Never smoker Past Alcohol Use History: Rare Past Drug Use History: None Reported - Past Family History Father Family Medical History: Deep Vein Thrombosis (DVT) Son(s) Family Medical History: Cancer Additional Family Medical History / Comment(s): Skin cancer. Medications and Allergies Home Medications Medication Instructions Recorded Confirmed Type Finasteride [Proscar] 5 mg PO DAILY@79902/09/17 04/03/20 History Tamsulosin HCl [Flomax] 0.4 mg PO DAILY@79902/09/17 04/03/20 History Multivitamins, Thera [Multivitamin 1 tab PO DAILY@79912/31/18 04/03/20 History (formulary)] Atorvastatin Calcium [Lipitor] 20 mg PO HS@209910/14/19 04/03/20 History Levothyroxine Sodium [Levoxyl] 25 mcg PO DAILY@79912/18/19 04/03/20 History Vit C/E/Zn/Coppr/Lutein/Zeaxan 1 cap PO DAILY@79912/18/19 04/03/20 History [Preservision Areds 2 Softgel] amLODIPine [Norvasc] 5 mg PO BID@799,209912/18/19 04/03/20 History Calcium Carbonate [Tums] 1,000 mg PO DAILY@79912/28/19 04/03/20 History Eltrombopag Olamine [Promacta] 50 mg PO DAILY@59912/28/19 04/03/20 History Pantoprazole [Protonix] 40 mg PO DAILY@79912/28/19 04/03/20 History Eltrombopag Olamine [Promacta] 25 mg PO DAILY@59902/23/20 04/03/20 History Metoprolol Tartrate [Lopressor] 50 mg PO BID@799,209903/05/20 04/03/20 History rOPINIRole HCL [Requip] 0.25 mg PO HS tab 03/10/20 04/03/20 Rx INSULIN LISPRO (HumaLOG) [humaLOG] See Protocol SQ TID-W/MEALS 04/03/20 04/03/20 History Nystatin 100,000 Unit/ml Susp 400,000 unit PO QID PRN 04/03/20 04/03/20 History [Mycostatin Oral Susp] Tacrolimus [Prograf] 1 mg PO BID 04/03/20 04/03/20 History mycophenolate mofetiL [Cellcept] 250 mg PO BID@0800,2100 04/03/20 04/03/20 History predniSONE 10 mg PO DAILY@0800 04/03/20 04/03/20 History Acetaminophen Tab [Tylenol] 650 mg PO Q4H #30 tab 04/04/20 Rx Amitriptyline HCl [Elavil] 25 mg PO HS #30 tab 04/08/20 Rx DULoxetine HCL [Cymbalta] 60 mg PO DAILY@0800 #0 04/08/20 04/03/20 Rx Insulin Glargine [Lantus] 20 units SQ HS #0 04/08/20 04/03/20 Rx QUEtiapine [SEROquel] 25 mg PO HS #30 tab 04/08/20 Rx traMADol HCl [Ultram] 50 mg PO Q8HR PRN #9 tab 04/08/20 Rx Allergies Allergy/AdvReac Type Severity Reaction Status Date / Time morphine Allergy Itching Verified 04/03/20 21:41 Physical Examination Physical exam: Patient is awake, alert, and oriented 3 and answering questions appropriately Vital signs stable Good chest excursion with deep inspiration and expiration Some pain with light palpation over the left lower anterior abdomen Evidence of a well-healed incision over the left lower abdomen Patient does have difficulty rolling over in bed as it exacerbates his abdominal pain Evidence of significant bruising over the left lateral iliac crest and over the left lower ribs No pain with palpation along the thoracic or lumbar spines Examination of thoracic and lumbar spine reveals skin is intact with no lacerations, aspirations, or bruises; no erythema, purulence or signs of infection Dorsiflexion, plantarflexion, and extensor hallucis longus positive sustained bilaterally Lower extremity strength 5/5 bilaterally No lower extremity hyperreflexia bilaterally Straight leg test negative bilateral lower extremities No signs or symptoms of DVT; no calf pain No pain with internal and external rotation of the hips bilaterally Neurovascularly intact Results Pertinent studies: Ribs with chest x-ray taken on 04/07/2020: Nondisplaced fracture of the right anterolateral 10th rib; mildly displaced fractures of the left anterolateral eighth rib in nondisplaced fractures of the anterior sixth and seventh ribs; patchy left mid to lower lobe opacities likely areas of atelectasis X-rays of the thoracic spine taken on 04/07/2020: Mild T7 superior endplate compression fracture deformity of indeterminate age; mild degenerative disc disease of the mid thoracic spine - Labs Labs: Abnormal Lab Results - Last 24 Hours (Table) 04/07/20 04/07/20 04/08/20 Range/Units 05:20 20:22 06:59 POC Glucose (mg/dL) 181 H 61 L (75-99) mg/dL Hemoglobin A1c 6.5 H (4.0-6.0) % 04/08/20 04/08/20 04/08/20 Range/Units 07:21 11:33 16:53 POC Glucose (mg/dL) 72 L 221 H 230 H (75-99) mg/dL Hemoglobin A1c (4.0-6.0) % H & H 04/03/20 04/04/20 04/06/20 Range/Units 14:50 07:14 07:23 Hgb 14.6 13.2 15.8 (13.0-17.5) gm/dL Hct 46.2 42.0 47.6 (39.0-53.0) % 04/07/20 Range/Units 05:20 Hgb 14.4 (13.0-17.5) gm/dL Hct 46.4 (39.0-53.0) % Coagulation 04/03/20 Range/Units 14:50 INR 1.0 (<1.2) Result Diagrams: 04/07/20 05:20 04/07/20 05:20 Assessment and Plan Assessment: Assessment: Multiple left-sided rib fracture status post fall Left-sided rib fractures at rib 6, 7, and 8 Right-sided rib fracture at rib 10 T7 chronic compression fracture deformity Left rib pain Left lower abdominal pain present after fall Altered mental status at presentation History of depression History of anxiety Chronic renal failure with history of renal transplant Recent sepsis secondary to underlying bilateral pneumonia Hypothyroidism History of CABG Diabetes mellitus type 2 Hypertension Hyperlipidemia Chronic persistent atrial fibrillation History of slow growing prostate cancer Chronic back pain History of melanoma (1) Multiple rib fractures Current Visit: Yes Status: Acute Code(s): S22.49XA - MULTIPLE FRACTURES OF RIBS, UNSP SIDE, INIT FOR CLOS FX SNOMED Code(s): 6139139 (2) Status post fall Current Visit: Yes Status: Acute Code(s): Z91.81 - HISTORY OF FALLING SNOMED Code(s): 226389640 (3) Rib pain on left side Current Visit: Yes Status: Acute Code(s): R07.81 - PLEURODYNIA SNOMED Code(s): 054303877 (4) Compression fracture of T7 vertebra Current Visit: Yes Status: Acute Code(s): S22.060A - WEDGE COMPRESSION FRACTURE OF T7-T8 VERTEBRA, INIT SNOMED Code(s): 958289109 (5) Altered mental status Current Visit: Yes Status: Acute Code(s): R41.82 - ALTERED MENTAL STATUS, UNSPECIFIED SNOMED Code(s): 998404047 (6) Abdominal pain Current Visit: Yes Status: Acute Code(s): R10.9 - UNSPECIFIED ABDOMINAL PAIN SNOMED Code(s): 01472929 (7) History of depression Current Visit: Yes Status: Acute Code(s): Z86.59 - PERSONAL HISTORY OF OTHER MENTAL AND BEHAVIORAL DISORDERS SNOMED Code(s): 309575664 (8) History of anxiety Current Visit: Yes Status: Acute Code(s): Z86.59 - PERSONAL HISTORY OF OTHER MENTAL AND BEHAVIORAL DISORDERS SNOMED Code(s): 123169580 (9) Chronic renal failure Current Visit: Yes Status: Acute Code(s): N18.9 - CHRONIC KIDNEY DISEASE, UNSPECIFIED SNOMED Code(s): 15164902 (10) History of coronary artery bypass graft Current Visit: Yes Status: Acute Code(s): Z95.1 - PRESENCE OF AORTOCORONARY BYPASS GRAFT SNOMED Code(s): 777318639 (11) Hypothyroidism Current Visit: Yes Status: Acute Code(s): E03.9 - HYPOTHYROIDISM, UNSPECIFIED SNOMED Code(s): 71398891 (12) Hypertension Current Visit: Yes Status: Acute Code(s): I10 - ESSENTIAL (PRIMARY) HYPERTENSION SNOMED Code(s): 82295845 (13) Hyperlipidemia Current Visit: Yes Status: Acute Code(s): E78.5 - HYPERLIPIDEMIA, UNSPECIFIED SNOMED Code(s): 63716066 (14) Diabetes mellitus type 2 in obese Current Visit: Yes Status: Acute Code(s): E11.69 - TYPE 2 DIABETES MELLITUS WITH OTHER SPECIFIED COMPLICATION; E66.9 - OBESITY, UNSPECIFIED SNOMED Code(s): 63445396 (15) Longstanding persistent atrial fibrillation Current Visit: Yes Status: Acute Code(s): I48.11 - LONGSTANDING PERSISTENT ATRIAL FIBRILLATION SNOMED Code(s): 477562832 (16) History of melanoma Current Visit: Yes Status: Acute Code(s): Z85.820 - PERSONAL HISTORY OF MALIGNANT MELANOMA OF SKIN SNOMED Code(s): 897960493 (17) Chronic back pain Current Visit: Yes Status: Acute Code(s): M54.9 - DORSALGIA, UNSPECIFIED; G89.29 - OTHER CHRONIC PAIN SNOMED Code(s): 506659983 (18) Prostate cancer Current Visit: Yes Status: Acute Code(s): C61 - MALIGNANT NEOPLASM OF PROSTATE SNOMED Code(s): 447705710 (19) History of renal transplant Current Visit: No Status: Chronic Priority: Medium Code(s): Z94.0 - KIDNEY TRANSPLANT STATUS SNOMED Code(s): 634495792 Plan: Plan: 1. Patient has been discussed in detail with Dr. Raghavendra Camacho. After reviewing of imaging, physical examination the patient, and further discussion with the patient, we will currently plan to continue conservative treatment at this time. Patient does have evidence of left-sided rib fractures at rib 6, 7, and 8. He does have significant bruising over the left lateral ribs at these fracture sit es. He has pain with movement of these ribs. He has evidence of a mild T7 superior endplate compression fracture deformity of indeterminate age. He does not experience any increased pain in his thoracic spine with movement of the spine or palpation of his thoracic spine. It appears at this time the compression fracture is chronic in nature. He does however have his acute left- sided rib pain status post fall. He is not experiencing any right-sided rib pain. At this time he would not plan for specific bracing for his rib fractures. We will plan with conservative treatment and allow the rib fractures to heal on their own over time. He do not plan for specific bracing. He should avoid excessive activities at this time including bending and twisting activities. From an orthopedic spine standpoint, patient is clear for discharge. We will plan to have him follow-up with Faisal Barakat PA-C or Dr. Raghavendra Camacho at [facility] in approximately 2 weeks for further evaluation. 2. Patient been discussed in detail with nursing as well. We did discuss patient should have further evaluation with general surgery due to his increase left lower abdominal pain status post fall near the area of his previous area of surgical intervention for renal transplant. Time with Patient: Greater than 30 (Including obtaining history, physical examination, reviewing of imaging, and dictation.)
[2020-04-08 17:43] LABS: African American GFR (CKD) 55.8 (60.0-200.0); Albumin 3.5 g/dL (3.80-4.90); Albumin/Globulin Ratio 2.5 (1.60-3.17); Anion Gap 10.8 mmol/L (4.00-12.00); BUN/Creat Ratio 22.14 Ratio (12.00-20.00); Calcium 8.6 mg/dL (8.7-10.3); Carbon Dioxide 22.2 mmol/L (21.6-31.8); Globulin 1.4 g/dL (1.6-3.3); Non-African American GFR(CKD) 48.1 (60.0-200.0); Potassium 4.5 mmol/L (3.5-5.5); Total Bilirubin 0.7 mg/dL (0.3-1.2); Total Protein 4.9 g/dL (6.2-8.2)
--- NOTE | 2020-04-08 17:47 | P.PN ---
Subjective Progress Note Date: 04/08/20 Patient was seen for a follow-up. Patient was initially seen by Dr. Dubois for neurological consultation yesterday. Please refer to her note for details. 04/08/2020: Patient states that he has not been having any hallucinations, although the nurse states that he was hallucinating, seeing bees flying, he was having delusions of imagining dog for the pillow. He was seeing cats in the wheelchair. Patient is back on prednisone 10 mg daily. Patient's mentation is fluctuating sometimes is more oriented symptoms is more confused and slightly disoriented. 04/07/2020: Patient has not had any further hallucinations overnight. Patient's medications have been further optimized by psychiatrist. Patient continues to complain of pain in the left lower rib cage area. Patient states that he lives with his and his brought him here. He fell at home, after he tripped on something which she does not remember He landed on the left lower rib cage. It hurts in the back and the left lower rib cage region. There is big hematoma and a bruise. Objective - Vital Signs Vital signs: Vital Signs Temp 97.3 F L 04/08/20 15:00 Pulse 68 04/08/20 15:00 Resp 18 04/08/20 15:00 BP 152/86 04/08/20 15:00 Pulse Ox 93 L 04/08/20 15:00 Intake & Output 04/07/20 04/08/20 04/08/20 18:59 06:59 18:59 Intake Total 200 693 Balance 200 693 Intake: Oral 200 693 Other: Voiding Method Urinal Toilet Urinal # Voids 2 1 1 # Bowel Movements 1 - Exam Patient is alert and awake in no distress. He appears slightly tremulous, better than yesterday. Patient knows that it is March 2020. He knows that he is in [facility] in [place] and name of the current president. Speech and language functions are normal. Patient has positive palmomental reflex, negative visuospatial apraxia. The strength appears normal in the arms and legs. Patient not hallucinating at this time. - Labs CBC & Chem 7: 04/07/20 05:20 04/07/20 05:20 Labs: Abnormal Lab Results - Last 24 Hours (Table) 04/07/20 04/07/20 04/08/20 Range/Units 05:20 20:22 06:59 POC Glucose (mg/dL) 181 H 61 L (75-99) mg/dL Hemoglobin A1c 6.5 H (4.0-6.0) % 04/08/20 04/08/20 04/08/20 Range/Units 07:21 11:33 16:53 POC Glucose (mg/dL) 72 L 221 H 230 H (75-99) mg/dL Hemoglobin A1c (4.0-6.0) % Assessment and Plan Assessment: * Altered mental status with hallucinations. Probable delirium. Possible underlying cognitive impairment/dementia. * Polypharmacy * Status post fall with rib fractures * Depression and anxiety. * Atrial flutter/fibrillation * Diabetes * Hyperlipidemia * Hypertension Plan: * Appreciate psychiatric input. Amitriptyline completely discontinued due to anticholinergic side effects. Continue Cymbalta 60 mg daily. Seroquel 25 mg daily at bedtime for psychosis/hallucinations/insomnia. Patient on low-dose Ativan 0.5 mg daily. Patient on prednisone 10 mg. Avoid sedatives hypnotics/pain medications. May need a little higher dose of Seroquel if hallucinations persist. Psychiatry on board. * CTA of head with contrast 04/04/[address] head normal. No definitive evidence of hydrocephalus. * Patient has atrial fibrillation, currently not on anticoagulation perhaps due to fall risk. Would defer to IM. * Patient's B12 is normal 1071 on 10/15/2019. Folic acid normal 14.6. TSH is mildly elevated 6.4, free T4 normal 1.40. * X-ray of the ribs revealed nondisplaced fracture of the right anterolateral 10th rib. Mildly displaced fracture of the left anterior lateral eighth rib and nondisplaced fracture of the anterior left sixth and seventh ribs. * X-ray of the thoracic spine revealed possible minimal superior endplate deformity of midthoracic vertebral body, probably T7 on the lateral view. Mild degenerative disc disease midthoracic spine. No malalignment. Orthopedics surgery input appreciated. Patient will undergo conservative treatment.
[2020-04-08 21:13] LABS: Glucose,Whole Blood 395 mg/dL (75-99)
[2020-04-08 21:13] LABS: Glucose,Whole Blood 391 mg/dL (75-99)
[2020-04-08] MEDS: QUEtiapine 25 MG TAB PO SCH (21:57)
[2020-04-08] MEDS: LORazepam 0.5 MG TAB PO SCH (21:58)
[2020-04-08] MEDS: ATORVASTATIN 20 MG TAB PO SCH (21:58)
[2020-04-08] MEDS: INSULIN DETEMIR (LEVEMIR) 100 UNIT/ML SYR SQ SCH (21:59)
--- NOTE | 2020-04-08 22:41 | P.GSCN ---
History of Present Illness Consult date: 04/08/20 History of present illness: Patient seen and evaluated per request of orthopedics secondary to suspected left lower quadrant abdominal pain. Patient seen and evaluated. He denies any abdominal pain. He does have history of kidney transplant. Per description with nurse, patient being prepared for discharge. No acute surgical intervention units time. We'll follow as needed as patient denies any abdominal pain 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." Hard of hearing, LOW PLATELETS, History of Any Multi-Drug Resistant Organisms: None Reported Past Surgical History: Orthopedic Surgery Additional Past Surgical History / Comment(s): kidney transplant, parathyroid surgery, knee surgery, pericardiocentesis Past Anesthesia/Blood Transfusion Reactions: No Reported Reaction Past Psychological History: Anxiety, Depression Smoking Status: Never smoker Past Alcohol Use History: Rare Past Drug Use History: None Reported - Past Family History Father Family Medical History: Deep Vein Thrombosis (DVT) Son(s) Family Medical History: Cancer Additional Family Medical History / Comment(s): Skin cancer. Medications and Allergies Home Medications Medication Instructions Recorded Confirmed Type Finasteride [Proscar] 5 mg PO DAILY@0800 02/09/17 04/03/20 History Tamsulosin HCl [Flomax] 0.4 mg PO DAILY@79902/09/17 04/03/20 History Multivitamins, Thera [Multivitamin 1 tab PO DAILY@79912/31/18 04/03/20 History (formulary)] Atorvastatin Calcium [Lipitor] 20 mg PO HS@209910/14/19 04/03/20 History Levothyroxine Sodium [Levoxyl] 25 mcg PO DAILY@79912/18/19 04/03/20 History Vit C/E/Zn/Coppr/Lutein/Zeaxan 1 cap PO DAILY@79912/18/19 04/03/20 History [Preservision Areds 2 Softgel] amLODIPine [Norvasc] 5 mg PO BID@0800,2100 12/18/19 04/03/20 History Calcium Carbonate [Tums] 1,000 mg PO DAILY@0800 12/28/19 04/03/20 History Eltrombopag Olamine [Promacta] 50 mg PO DAILY@0612/28/19 04/03/20 History Pantoprazole [Protonix] 40 mg PO DAILY@0800 12/28/19 04/03/20 History Eltrombopag Olamine [Promacta] 25 mg PO DAILY@0600 02/23/20 04/03/20 History Metoprolol Tartrate [Lopressor] 50 mg PO BID@0800,209903/05/20 04/03/20 History rOPINIRole HCL [Requip] 0.25 mg PO HS tab 03/10/20 04/03/20 Rx INSULIN LISPRO (HumaLOG) [humaLOG] See Protocol SQ TID-W/MEALS 04/03/20 04/03/20 History Nystatin 100,000 Unit/ml Susp 400,000 unit PO QID PRN 04/03/20 04/03/20 History [Mycostatin Oral Susp] Tacrolimus [Prograf] 1 mg PO BID 04/03/20 04/03/20 History mycophenolate mofetiL [Cellcept] 250 mg PO BID@0800,2100 04/03/20 04/03/20 History predniSONE 10 mg PO DAILY@0800 04/03/20 04/03/20 History Acetaminophen Tab [Tylenol] 650 mg PO Q4H #30 tab 04/04/20 Rx Amitriptyline HCl [Elavil] 25 mg PO HS #30 tab 04/08/20 Rx DULoxetine HCL [Cymbalta] 60 mg PO DAILY@0800 #0 04/08/20 04/03/20 Rx Insulin Glargine [Lantus] 20 units SQ HS #0 04/08/20 04/03/20 Rx QUEtiapine [SEROquel] 25 mg PO HS #30 tab 04/08/20 Rx traMADol HCl [Ultram] 50 mg PO Q8HR PRN #9 tab 04/08/20 Rx Allergies Allergy/AdvReac Type Severity Reaction Status Date / Time morphine Allergy Itching Verified 04/03/20 21:41 Surgical - Exam Vital Signs Temp Pulse Resp BP Pulse Ox 98.0 F 64 18 113/87 97 04/03/20 14:03 04/03/20 14:03 04/03/20 14:03 04/03/20 14:03 04/03/20 14:03 Results - Labs 04/07/20 05:20 04/08/20 10:43 Abnormal Lab Results - Last 24 Hours (Table) 04/08/20 04/08/20 04/08/20 Range/Units 06:59 07:21 10:43 BUN 31.0 H (9.0-27.0) mg/dL Est GFR (CKD-EPI)AfAm 55.8 L (60.0-200.0) Est GFR (CKD-EPI)NonAf 48.1 L (60.0-200.0) BUN/Creatinine Ratio 22.14 H (12.00-20.00) Ratio Glucose 211 H (70-110) mg/dL POC Glucose (mg/dL) 61 L 72 L (75-99) mg/dL Calcium 8.6 L (8.7-10.3) mg/dL Total Protein 4.9 L (6.2-8.2) g/dL Albumin 3.50 L (3.80-4.90) g/dL Globulin 1.4 L (1.6-3.3) g/dL 04/08/20 04/08/20 04/08/20 Range/Units 11:33 16:53 21:07 BUN (9.0-27.0) mg/dL Est GFR (CKD-EPI)AfAm (60.0-200.0) Est GFR (CKD-EPI)NonAf (60.0-200.0) BUN/Creatinine Ratio (12.00-20.00) Ratio Glucose (70-110) mg/dL POC Glucose (mg/dL) 221 H 230 H 391 H (75-99) mg/dL Calcium (8.7-10.3) mg/dL Total Protein (6.2-8.2) g/dL Albumin (3.80-4.90) g/dL Globulin (1.6-3.3) g/dL 04/08/20 Range/Units 21:09 BUN (9.0-27.0) mg/dL Est GFR (CKD-EPI)AfAm (60.0-200.0) Est GFR (CKD-EPI)NonAf (60.0-200.0) BUN/Creatinine Ratio (12.00-20.00) Ratio Glucose (70-110) mg/dL POC Glucose (mg/dL) 395 H (75-99) mg/dL Calcium (8.7-10.3) mg/dL Total Protein (6.2-8.2) g/dL Albumin (3.80-4.90) g/dL Globulin (1.6-3.3) g/dL Diabetes panel 04/08/20 Range/Units 10:43 Sodium 136 (135-145) mmol/L Potassium 4.5 (3.5-5.5) mmol/L Chloride 103 (96-109) mmol/L Carbon Dioxide 22.2 (21.6-31.8) mmol/L BUN 31.0 H (9.0-27.0) mg/dL Creatinine 1.4 (0.6-1.5) mg/dL Glucose 211 H (70-110) mg/dL Calcium 8.6 L (8.7-10.3) mg/dL AST 17 (14-35) U/L ALT 17 (10-49) U/L Alkaline Phosphatase 115 (41-126) U/L Total Protein 4.9 L (6.2-8.2) g/dL Albumin 3.50 L (3.80-4.90) g/dL Calcium panel 04/08/20 Range/Units 10:43 Calcium 8.6 L (8.7-10.3) mg/dL Albumin 3.50 L (3.80-4.90) g/dL Pituitary panel 04/08/20 Range/Units 10:43 Sodium 136 (135-145) mmol/L Potassium 4.5 (3.5-5.5) mmol/L Chloride 103 (96-109) mmol/L Carbon Dioxide 22.2 (21.6-31.8) mmol/L BUN 31.0 H (9.0-27.0) mg/dL Creatinine 1.4 (0.6-1.5) mg/dL Glucose 211 H (70-110) mg/dL Calcium 8.6 L (8.7-10.3) mg/dL Adrenal panel 04/08/20 Range/Units 10:43 Sodium 136 (135-145) mmol/L Potassium 4.5 (3.5-5.5) mmol/L Chloride 103 (96-109) mmol/L Carbon Dioxide 22.2 (21.6-31.8) mmol/L BUN 31.0 H (9.0-27.0) mg/dL Creatinine 1.4 (0.6-1.5) mg/dL Glucose 211 H (70-110) mg/dL Calcium 8.6 L (8.7-10.3) mg/dL Total Bilirubin 0.7 (0.3-1.2) mg/dL AST 17 (14-35) U/L ALT 17 (10-49) U/L Alkaline Phosphatase 115 (41-126) U/L Total Protein 4.9 L (6.2-8.2) g/dL Albumin 3.50 L (3.80-4.90) g/dL
[2020-04-08] MEDS ORDERED: HALOPERIDOL LACTATE 5 MG/ML 1 ML VIAL IM PRN ×2 (23:18→23:28)
[2020-04-09] MEDS: ELTROMBOPAG OLAMINE 25 MG PO SCH (06:19)
[2020-04-09] MEDS: LEVOTHYROXINE 75 MCG TAB PO SCH ×2 (06:20→07:59)
[2020-04-09] MEDS: ELTROMBOPAG OLAMINE 50 MG PO SCH (06:20)
[2020-04-09 07:12] LABS: Glucose,Whole Blood 175 mg/dL (75-99)
[2020-04-09] MEDS: INSULIN ASPART (NovoLOG) 100 UNIT/ML VIAL SQ SCH ×4 (07:54→21:01)
[2020-04-09] MEDS: PANTOPRAZOLE 40 MG TABLET PO SCH (07:57)
[2020-04-09] MEDS: MULTIVITAMINS, THERA 1 EACH TAB PO SCH (07:58)
[2020-04-09] MEDS: METOPROLOL TARTRATE 50 MG TAB PO SCH ×2 (07:58→21:03)
[2020-04-09] MEDS: amLODIPine 5 MG TAB PO SCH ×2 (08:00→21:03)
[2020-04-09] MEDS: DULoxetine HCL 60 MG CAPSULE.DR PO SCH (08:00)
[2020-04-09] MEDS: TACROLIMUS 0.5 MG CAP PO SCH ×2 (08:01→21:19)
[2020-04-09] MEDS: FINASTERIDE 5 MG TAB PO SCH (08:01)
[2020-04-09] MEDS: CALCIUM CARBONATE 500 MG CHEWABLE PO SCH (08:02)
[2020-04-09] MEDS: TAMSULOSIN 0.4 MG CAP.ER.24H PO SCH (08:03)
[2020-04-09 09:36] LABS: African American GFR (CKD) 65 (>60 ml/min/1.73 sqM); Anion Gap 7 mmol/L; Blood Urea Nitrogen 29 mg/dL (9-20); Calcium 8.7 mg/dL (8.4-10.2); Carbon Dioxide 24 mmol/L (22-30); Chloride 104 mmol/L (98-107); Glucose 178 mg/dL (74-99); Non-African American GFR(CKD) 57 (>60 ml/min/1.73 sqM); Potassium 4.4 mmol/L (3.5-5.1); Sodium 135 mmol/L (137-145)
[2020-04-09 09:45] LABS: Anisocytosis Slight; Basophils # (A) 0.1 k/uL (0-0.2); Basophils % (A) 1 %; Eosinophils # (A) 0.3 k/uL (0-0.7); Eosinophils % (A) 3 %; HGB 14.3 gm/dL (13.0-17.5); Hypochromasia Slight; Lymphocytes # (A) 1.1 k/uL (1.0-4.8); Lymphocytes % (A) 13 %; MCH 28.5 pg (25.0-35.0); MCHC 31.8 g/dL (31.0-37.0); MCV 89.5 fL (80.0-100.0); Mean Platelet Volume 8.7; Monocytes # (A) 0.9 k/uL (0-1.0); Monocytes % (A) 11 %; Neutrophils % (A) 70 %; Platelet Count 357 k/uL (150-450); RBC 5.02 m/uL (4.30-5.90); RDW 16.4 % (11.5-15.5); WBC 8.5 k/uL (3.8-10.6)
--- NOTE | 2020-04-09 09:47 | P.PN ---
Subjective Progress Note Date: 04/09/20 This is a 79-year-old gentleman admitted with hallucinations, delirium, sleep deprivation, subsequent fall, atrial fibrillation, chronic kidney disease and multiple other medical issues. Staff reports patient hallucinating seeing ants, chattering , conversing as if there are people in the room, reaching for things in midair. PT evaluation pending. Evaluated by psychiatry and neurology with recommendations noted and appreciated. 04/07/2020 yesterday, Elavil decreased and received Seroquel at night, sensorium significantly improved. Creatinine 1.2. Good diet intake, consuming 75-100%. Afebrile, normal WBC. Complains of significant left ribcage tenderness, exacerbated by coughing, movement. Thoracic spine x-ray pending. X-ray reporting patchy left mid and lower lung opacity's, suspecting atelectasis, right ribs- nondisplaced fracture right anterior lateral 10th rib, left rib- mildly displaced flexure of the left anterior lateral eighth and nondisplaced fractures of the anterior left 6 and seventh rib. Maintaining O2 sats in the low 90s on room air. PT evaluation completed, recommendations pending. 04/08/2020 receiving Ultram for rib fracture pain. mildly more confused today compared to yesterday. Good diet intake with no nausea vomiting or diarrhea. Positive bowel movement yesterday. Blood sugars 61 early a.m., patient had declined hs snack. TSH 6.4, free T4 1.40. evaluated by PT with subacute rehab recommended at discharge. Maintaining O2 sats in the 90s on room air. 04/09/2020 evaluated by orthopedic surgery with conservative management recommended. Increased confusion accompanied by combativeness during the night. Received Ativan, Haldol IM. This morning confused, does not recognize PCP, sleepy. Afebrile, labs pending. Maintaining O2 sats in the high 90s on room air. Objective - Vital Signs Vital signs: Vital Signs Temp 98.7 F 04/09/20 07:21 Pulse 82 04/09/20 07:21 Resp 18 04/09/20 07:21 BP 129/83 04/09/20 07:21 Pulse Ox 96 04/09/20 07:21 Intake & Output 04/08/20 04/09/20 04/09/20 18:59 06:59 18:59 Intake Total 929 500 Output Total 550 Balance 929 -50 Intake: Oral 929 500 Output: Urine 550 Other: Voiding Method Toilet Toilet Urinal Urinal # Voids 1 1 # Bowel Movements 1 - Exam GENERAL: The patient is alert and oriented x1, no acute distress, sleepy HEENT: Pupils are round and equally reacting to light. EOMI. No scleral icterus. No conjunctival pallor. Normocephalic, atraumatic. CARDIOVASCULAR: S1 and S2 present. Irregular, No murmurs, rubs, or gallops. PULMONARY: Chest is clear to auscultation, no wheezing or crackles. ABDOMEN: Soft, nontender, nondistended, normoactive bowel sounds. No palpable organomegaly. EXTREMITIES: No cyanosis, clubbing, or pedal edema. NEUROLOGICAL: Gross neurological examination did not reveal any focal deficits. Pleasantly confused. SKIN: Bruise in the left flank area - Labs CBC & Chem 7: 04/07/20 05:20 04/08/20 10:43 Labs: Abnormal Lab Results - Last 24 Hours (Table) 04/08/20 04/08/20 04/08/20 Range/Units 10:43 11:33 16:53 BUN 31.0 H (9.0-27.0) mg/dL Est GFR (CKD-EPI)AfAm 55.8 L (60.0-200.0) Est GFR (CKD-EPI)NonAf 48.1 L (60.0-200.0) BUN/Creatinine Ratio 22.14 H (12.00-20.00) Ratio Glucose 211 H (70-110) mg/dL POC Glucose (mg/dL) 221 H 230 H (75-99) mg/dL Calcium 8.6 L (8.7-10.3) mg/dL Total Protein 4.9 L (6.2-8.2) g/dL Albumin 3.50 L (3.80-4.90) g/dL Globulin 1.4 L (1.6-3.3) g/dL 04/08/20 04/08/20 04/09/20 Range/Units 21:07 21:09 07:05 BUN (9.0-27.0) mg/dL Est GFR (CKD-EPI)AfAm (60.0-200.0) Est GFR (CKD-EPI)NonAf (60.0-200.0) BUN/Creatinine Ratio (12.00-20.00) Ratio Glucose (70-110) mg/dL POC Glucose (mg/dL) 391 H 395 H 175 H (75-99) mg/dL Calcium (8.7-10.3) mg/dL Total Protein (6.2-8.2) g/dL Albumin (3.80-4.90) g/dL Globulin (1.6-3.3) g/dL Assessment and Plan Assessment: Altered mental status, acute delirium secondary to toxic ,metabolic encephalopathy, medication induced, possible Lewy body dementia related to Parkinson's disease Status post fall, sustaining multiple bilateral rib fractures Atelectasis Sleep deprivation Depression, History of Anxiety, History of Chronic renal failure stage II, history of renal transplant Recent sepsis secondary to underlying bilateral pneumonia, possibly gram-ne gative Diabetes mellitus type 2 Hypothyroidism CAD, history of CABG Hypertension Hyperlipidemia Chronic persistent atrial fibrillation, not on anticoagulation related to 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 Craig History of melanoma Anxiety, depression Chronic back pain Plan: Continue on current medication regime ,monitoring and symptomatic treatment. Tramadol discontinued, last dose recorded on 04/07/2020. Labs pending. PT/OT. Appreciate psychiatry and neurology recommendations. Discharge placed on hold. The impression and plan of care has been dictated as directed. : I performed a history and examination of this patient, discussed the same with the dictator. I agree with the dictator's note ,documented as a scribe. Any additional findings or plans will be noted.
[2020-04-09 11:49] LABS: Glucose,Whole Blood 143 mg/dL (75-99)
[2020-04-09] MEDS: predniSONE 10 MG TAB PO SCH (13:53)
[2020-04-09] MEDS: ACETAMINOPHEN TAB 325 MG TAB PO PRN (13:54)
--- NOTE | 2020-04-09 14:04 | P.PN ---
Progress Note - Text Progress Note Date: 04/09/20 Interval History: Patient was seen today for psychiatric follow-up regarding patient's delirium. Patient apparently required Haldol 2 mg IM last night for agitation. Patient slept the rest of the night however according to nurse had a poor sleep last night. Patient was discontinued off of his Elavil. He was sitting in bed today and appeared to be calm and directable. He was watching TV and agreeable strict publicity writer. Patient commented about his lunch and also wanting to speak with his . Patient appeared to be more appropriate today and more directable. Patient was cooperative with publicity writer at the bedside and was alert and oriented 3 today. He had poor memory recall once again however had improved attention span. He states that he has been taking his medications. He denies any current hallucinations. He states that he does not have any depression or anxiety today. At this time patient denies any suicidal or homical ideations, intent or plan. Patient denies any auditory, visual hallucinations. Patient denies any side effects from the medications and has been compliant with meds. Mental Status Exam: General Appearance: Patient appears to be stated age is more awake today, improving attention span, attempts to cooperate. Patient appears to have fair hygiene and grooming wearing hospital gown Behavior: Patient is calmly lying in bed without any agitated behavior. Improving attention span.. Mildly confused today. Speech: Patient's speech is fluent and nonpressured. Mood/Affect: Patient reports their mood is "fine ", affect is congruent Suicidality/Homicidality: Patient denies having any suicidal or homicidal ideation intent or plan. Perceptions: Patient denies any visual hallucinations and denies any auditory hallucinations Though content/process: Hesitant, poverty of content. Logical. Mildly confused today. Memory and concentration: AOX3, improving attention span. Poor memory recall 0 out of 3 after 5 minutes. Judgment and insight: Limited, improving mildly Assessment Delirium, likely etiology secondary to toxic metabolic, medications (possible BZD withdrawal) versus Lewy body dementia/PD History of depressive disorder and anxiety. Plan: -At this time patient DOES NOT meet criteria for inpatient psychiatric admission. -Delirium precautions recommended with patient including - avoiding use of narcotics and STUFFING MACHINE OPERATOR sedatives, limit anticholinergic medications when possible, frequent re-orientation, minimize use of restraints, open window shades during the day and close them at night -Would recommend the following medication changes/additions: Continue with Cymbalta to 60 mg daily. Can continue with Ativan 0.5 mg daily at bedtime to prevent withdrawal. Increased Seroquel to 12.5 mg daily + 37.5mg qhs for psychosis/hallucinations/insomnia. -Will continue to follow along -Appreciate neurology recommendations -Please contact with any questions.
--- NOTE | 2020-04-09 14:30 | P.PN ---
Subjective Progress Note Date: 04/09/20 Patient was seen for a follow-up. Patient was initially seen by Dr. Dubois for neurological consultation yesterday. Please refer to her note for details. 01/08/2020: Patient states he is feeling fine. Apparently he had a rough night. He became combative, thinking he is in [place] [employer]. He was hallucinating seeing kids in the hallway. He was given Haldol last night. Now he appears comfortable. He offers no complaints. He still gets pain in the left lower rib cage when he moves. It also hurts his back when he moves. 04/08/2020: Patient states that he has not been having any hallucinations, although the nurse states that he was hallucinating, seeing bees flying, he was having delusions of imagining dog for the pillow. He was seeing cats in the wheelchair. Patient is back on prednisone 10 mg daily. Patient's mentation is fluctuating sometimes is more oriented symptoms is more confused and slightly disoriented. 04/07/2020: Patient has not had any further hallucinations overnight. Patient's medications have been further optimized by psychiatrist. Patient continues to complain of pain in the left lower rib cage area. Patient states that he lives with his and his brought him here. He fell at home, after he tripped on something which she does not remember He landed on the left lower rib cage. It hurts in the back and the left lower rib cage region. There is big hematoma and a bruise. Objective - Vital Signs Vital signs: Vital Signs Temp 98.2 F 04/09/20 11:42 Pulse 86 04/09/20 11:42 Resp 18 04/09/20 11:42 BP 120/79 04/09/20 11:42 Pulse Ox 94 L 04/09/20 11:42 Intake & Output 04/08/20 04/09/20 04/09/20 18:59 06:59 18:59 Intake Total 929 500 450 Output Total 550 Balance 929 -50 450 Intake: Oral 929 500 450 Output: Urine 550 Other: Voiding Method Toilet Toilet Toilet Urinal Urinal Urinal # Voids 1 1 2 # Bowel Movements 1 1 - Exam Patient is alert and awake in no distress. Patient knows that it is March 2020. He knows that he is in [facility] in [place] and name of the current president. Speech and language functions are normal. Patient has positive palmomental reflex, negative visuospatial apraxia. The strength appears normal in the arms. In the lower extremities he has normal strength in the hips and knees. Right ankle is normal. Left ankle is weak about 4 in the Peroneus (foot eversion). Ankle dorsiflexion and inversion appeared normal. Toe extension is 5-right, 2-3 on the left. - Labs CBC & Chem 7: 04/09/20 08:54 04/09/20 08:54 Labs: Abnormal Lab Results - Last 24 Hours (Table) 04/08/20 04/08/20 04/08/20 Range/Units 10:43 16:53 21:07 RDW (11.5-15.5) % Sodium (137-145) mmol/L BUN 31.0 H (9.0-27.0) mg/dL Est GFR (CKD-EPI)AfAm 55.8 L (60.0-200.0) Est GFR (CKD-EPI)NonAf 48.1 L (60.0-200.0) BUN/Creatinine Ratio 22.14 H (12.00-20.00) Ratio Glucose 211 H (70-110) mg/dL POC Glucose (mg/dL) 230 H 391 H (75-99) mg/dL Calcium 8.6 L (8.7-10.3) mg/dL Total Protein 4.9 L (6.2-8.2) g/dL Albumin 3.50 L (3.80-4.90) g/dL Globulin 1.4 L (1.6-3.3) g/dL 04/08/20 04/09/20 04/09/20 Range/Units 21:09 07:05 08:54 RDW 16.4 H (11.5-15.5) % Sodium (137-145) mmol/L BUN (9.0-27.0) mg/dL Est GFR (CKD-EPI)AfAm (60.0-200.0) Est GFR (CKD-EPI)NonAf (60.0-200.0) BUN/Creatinine Ratio (12.00-20.00) Ratio Glucose (70-110) mg/dL POC Glucose (mg/dL) 395 H 175 H (75-99) mg/dL Calcium (8.7-10.3) mg/dL Total Protein (6.2-8.2) g/dL Albumin (3.80-4.90) g/dL Globulin (1.6-3.3) g/dL 04/09/20 04/09/20 Range/Units 08:54 11:47 RDW (11.5-15.5) % Sodium 135 L (137-145) mmol/L BUN 29 H (9.0-27.0) mg/dL Est GFR (CKD-EPI)AfAm (60.0-200.0) Est GFR (CKD-EPI)NonAf (60.0-200.0) BUN/Creatinine Ratio (12.00-20.00) Ratio Glucose 178 H (70-110) mg/dL POC Glucose (mg/dL) 143 H (75-99) mg/dL Calcium (8.7-10.3) mg/dL Total Protein (6.2-8.2) g/dL Albumin (3.80-4.90) g/dL Globulin (1.6-3.3) g/dL Assessment and Plan Assessment: * Altered mental status with hallucinations. Probable delirium. Possible underlying cognitive impairment/dementia. * Polypharmacy * Status post fall with rib fractures * Frequent fall possible diabetic neuropathy. * Depression and anxiety. * Atrial flutter/fibrillation * Diabetes * Hyperlipidemia * Hypertension Plan: * Patient continues to have delirium, with hallucinations agitation at night. Appreciate psychiatric input. Amitriptyline completely discontinued due to anticholinergic side effects. Continue Cymbalta 60 mg daily. Seroquel changed to 12.5 mg daily and 37.5 mg at bedtime. Hopefully it will keep him cognitively stable overnight. Patient on low-dose Ativan 0.5 mg daily. Patient on prednisone 10 mg. Avoid sedatives hypnotics/pain medications. Psychiatry on board. * CTA of head with contrast 04/04/[address] head normal. No definitive evidence of hydrocephalus. * Patient has atrial fibrillation, currently not on anticoagulation perhaps due to fall risk. Would defer to IM. * Patient's B12 is normal 1071 on 10/15/2019. Folic acid normal 14.6. TSH is mildly elevated 6.4, free T4 normal 1.40. * Orthopedic surgery on board for hip fracture and compression fracture. * Examination revealed weakness of bilateral toe extension, left worse than right, and also left foot peroneal muscle weakness. This may have resulted in patient fall. I would suggest EMG and nerve conduction studies of bilateral lower limbs as outpatient to evaluate for diabetic neuropathy or left peroneal nerve compression at fibular head versus radiculopathy.
[2020-04-09 17:04] LABS: Glucose,Whole Blood 195 mg/dL (75-99)
[2020-04-09 20:55] LABS: Glucose,Whole Blood 229 mg/dL (75-99)
[2020-04-09] MEDS ORDERED: QUEtiapine 25 MG TAB PO SCH (21:00)
[2020-04-09] MEDS: INSULIN DETEMIR (LEVEMIR) 100 UNIT/ML SYR SQ SCH (21:02)
[2020-04-09] MEDS: ATORVASTATIN 20 MG TAB PO SCH (21:03)
[2020-04-09] MEDS: LORazepam 0.5 MG TAB PO SCH (21:03)
[2020-04-10] MEDS: ELTROMBOPAG OLAMINE 25 MG PO SCH (05:36)
[2020-04-10] MEDS: ELTROMBOPAG OLAMINE 50 MG PO SCH (05:37)
[2020-04-10] MEDS: LEVOTHYROXINE 75 MCG TAB PO SCH (05:39)
[2020-04-10 06:51] LABS: Glucose,Whole Blood 156 mg/dL (75-99)
[2020-04-10 07:25] VITALS: BP 154/99; PULSE 86; RESP 16; TEMP 97.5
[2020-04-10] MEDS: PANTOPRAZOLE 40 MG TABLET PO SCH (07:33)
[2020-04-10] MEDS: METOPROLOL TARTRATE 50 MG TAB PO SCH (07:33)
[2020-04-10] MEDS: INSULIN ASPART (NovoLOG) 100 UNIT/ML VIAL SQ SCH ×2 (07:34→12:15)
[2020-04-10] MEDS: FINASTERIDE 5 MG TAB PO SCH (07:50)
[2020-04-10] MEDS: amLODIPine 5 MG TAB PO SCH (07:50)
[2020-04-10] MEDS: CALCIUM CARBONATE 500 MG CHEWABLE PO SCH (07:51)
[2020-04-10] MEDS: MULTIVITAMINS, THERA 1 EACH TAB PO SCH (07:51)
[2020-04-10] MEDS: TAMSULOSIN 0.4 MG CAP.ER.24H PO SCH (07:51)
[2020-04-10] MEDS ORDERED: QUEtiapine 25 MG TAB PO SCH (09:00)
[2020-04-10] MEDS: DULoxetine HCL 60 MG CAPSULE.DR PO SCH (09:58)
[2020-04-10] MEDS: TACROLIMUS 0.5 MG CAP PO SCH (09:59)
--- NOTE | 2020-04-10 10:57 | P.DS ---
Providers Date of admission: 04/05/20 12:08 Expected date of discharge: 04/10/20 Attending physician: Narinder Rosenberg Consults: 04/04/20 16:04 Consult Physician Routine Consulting Provider: Wei Hernandes Consult Reason/Comments: Hallucinations, confusion Do you want consulting provider notified?: Already Contacted 04/05/20 08:45 Consult Physician Routine Consulting Provider: Cathleen Dubois Consult Reason/Comments: AMS Do you want consulting provider notified?: Yes Primary care physician: Narinder Rosenberg Hospital Course: Final Diagnoses: Altered mental status, acute delirium secondary to toxic ,metabolic encephalopathy, medication induced-possible benzodiazepine withdrawal, possible Lewy body dementia related to Parkinson's disease. Status post fall, sustaining multiple bilateral rib fractures Diabetic neuropathy and poor left foot perineal muscle weakness, possible further follow-up outpatient, i.e. 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 Craig History of melanoma Anxiety, depression Chronic back pain As per course:This is a 79-year-old gentleman admitted with hallucinations, delirium, sleep deprivation, subsequent fall, atrial fibrillation, chronic kidney disease and multiple other medical issues. Staff reports patient hallucinating seeing ants, chattering , conversing as if there are people in the room, reaching for things in midair. PT evaluation pending. Evaluated by psychiatry and neurology with recommendations noted and appreciated. 04/07/2020 yesterday, Elavil decreased and received Seroquel at night, sensorium significantly improved. Creatinine 1.2. Good diet intake, consuming 75-100%. Afebrile, normal WBC. Complains of significant left ribcage tenderness, exac erbated by coughing, movement. Thoracic spine x-ray pending. X-ray reporting patchy left mid and lower lung opacity's, suspecting atelectasis, right ribs- nondisplaced fracture right anterior lateral 10th rib, left rib-mildly displaced flexure of the left anterior lateral eighth and nondisplaced fractures of the anterior left 6 and seventh rib. Maintaining O2 sats in the low 90s on room air. PT evaluation completed, recommendations pending. 04/08/2020 receiving Ultram for rib fracture pain. mildly more confused today compared to yesterday. Good diet intake with no nausea vomiting or diarrhea. Positive bowel movement yesterday. Blood sugars 61 early a.m., patient had declined hs snack. TSH 6.4, free T4 1.40. evaluated by PT with subacute rehab recommended at discharge. Maintaining O2 sats in the 90s on room air. 04/09/2020 evaluated by orthopedic surgery with conservative management recommended. Increased confusion accompanied by combativeness during the night. Received Ativan, Haldol IM. This morning confused, does not recognize PCP, sleepy. Afebrile, labs pending. Maintaining O2 sats in the high 90s on room air. Evaluated and treated by neurology and psychiatry. Amitriptyline completely discontinued due to anticholinergic side effects. Continue on Cymbalta 60 mg daily. Seroquel changed to 12.5 mg daily and 37.5 mg at bedtime.Patient on low- dose Ativan 0.5 mg daily.Avoiding sedatives hypnotics/pain medications,limit anticholinergic medications when possible, frequent re-orientation, open window shades during the day and close them at night. Significant clinical improvement. Cleared by both neurology and psychiatry for discharge to subacute rehab. Patient is being discharged to [facility] subacute rehab today in a stable condition with guarded prognosis. The impression and plan of care has been dictated as directed. : I performed a history and examination of this patient, discussed the same with the dictator. I agree with the dictator's note ,documented as a scribe. Any additional findings or plans will be noted. Patient Condition at Discharge: Stable Plan - Discharge Summary Discharge Rx Participant: No New Discharge Prescriptions: New Acetaminophen Tab [Tylenol] 650 mg PO Q4H #30 tab LORazepam [Ativan] 0.5 mg PO HS #3 tab QUEtiapine [SEROquel] 12.5 mg PO DAILY tab QUEtiapine [SEROquel] 37.5 mg PO HS tab Levothyroxine Sodium [Synthroid] 75 mcg PO DAILY@0630 tab INSULIN LISPRO (HumaLOG) [humaLOG] 0 unit SQ ACHS #1 vial Continue Finasteride [Proscar] 5 mg PO DAILY@0800 Tamsulosin HCl [Flomax] 0.4 mg PO DAILY@0800 Multivitamins, Thera [Multivitamin (formulary)] 1 tab PO DAILY@0800 Atorvastatin Calcium [Lipitor] 20 mg PO HS@2100 amLODIPine [Norvasc] 5 mg PO BID@0800,2100 Vit C/E/Zn/Coppr/Lutein/Zeaxan [Preservision Areds 2 Softgel] 1 cap PO DAILY@0800 Pantoprazole [Protonix] 40 mg PO DAILY@0800 Eltrombopag Olamine [Promacta] 50 mg PO DAILY@0600 Calcium Carbonate [Tums] 1,000 mg PO DAILY@0800 Eltrombopag Olamine [Promacta] 25 mg PO DAILY@0600 Metoprolol Tartrate [Lopressor] 50 mg PO BID@0800,2100 rOPINIRole HCL [Requip] 0.25 mg PO HS tab mycophenolate mofetiL [Cellcept] 250 mg PO BID@0800,2100 Nystatin 100,000 Unit/ml Susp [Mycostatin Oral Susp] 400,000 unit PO QID PRN PRN Reason: thrush predniSONE 10 mg PO DAILY@0800 Tacrolimus [Prograf] 1 mg PO BID Changed DULoxetine HCL [Cymbalta] 60 mg PO DAILY@0800 #0 Insulin Glargine [Lantus] 20 units SQ HS #0 Discontinued Levothyroxine Sodium [Levoxyl] 25 mcg PO DAILY@0800 clonazePAM [KlonoPIN] 1 - 2 mg PO HS PRN #6 tab PRN Reason: Anxiety INSULIN LISPRO (HumaLOG) [humaLOG] See Protocol SQ TID-W/MEALS traMADol HCL 50 mg PO BID PRN PRN Reason: Pain traZODone HCL [Desyrel] 100 mg PO HS PRN PRN Reason: Insomnia Amitriptyline HCl [Elavil] 100 mg PO HS Discharge Medication List Finasteride [Proscar] 5 mg PO DAILY@0800 02/09/17 [History] Tamsulosin HCl [Flomax] 0.4 mg PO DAILY@0800 02/09/17 [History] Multivitamins, Thera [Multivitamin (formulary)] 1 tab PO DAILY@0800 12/31/18 [History] Atorvastatin Calcium [Lipitor] 20 mg PO HS@2100 10/13/20 [History] Vit C/E/Zn/Coppr/Lutein/Zeaxan [Preservision Areds 2 Softgel] 1 cap PO DAILY@79912/18/19 [History] amLODIPine [Norvasc] 5 mg PO BID@08,209912/18/19 [History] Calcium Carbonate [Tums] 1,000 mg PO DAILY@79912/28/19 [History] Eltrombopag Olamine [Promacta] 50 mg PO DAILY@59912/28/19 [History] Pantoprazole [Protonix] 40 mg PO DAILY@79912/28/19 [History] Eltrombopag Olamine [Promacta] 25 mg PO DAILY@59902/23/20 [History] Metoprolol Tartrate [Lopressor] 50 mg PO BID@0800,209903/05/20 [History] rOPINIRole HCL [Requip] 0.25 mg PO HS tab 03/10/20 [Rx] Nystatin 100,000 Unit/ml Susp [Mycostatin Oral Susp] 400,000 unit PO QID PRN 04/03/20 [History] Tacrolimus [Prograf] 1 mg PO BID 04/03/20 [History] mycophenolate mofetiL [Cellcept] 250 mg PO BID@799,209904/03/20 [History] predniSONE 10 mg PO DAILY@79904/03/20 [History] Acetaminophen Tab [Tylenol] 650 mg PO Q4H #30 tab 04/04/20 [Rx] DULoxetine HCL [Cymbalta] 60 mg PO DAILY@0800 #0 04/08/20 [Rx] Insulin Glargine [Lantus] 20 units SQ HS #0 04/08/20 [Rx] INSULIN LISPRO (HumaLOG) [humaLOG] 0 unit SQ ACHS #1 vial 04/10/20 [Rx] LORazepam [Ativan] 0.5 mg PO HS #3 tab 04/10/20 [Rx] Levothyroxine Sodium [Synthroid] 75 mcg PO DAILY@0630 tab 04/10/20 [Rx] QUEtiapine [SEROquel] 12.5 mg PO DAILY tab 04/10/20 [Rx] QUEtiapine [SEROquel] 37.5 mg PO HS tab 04/10/20 [Rx] Follow up Appointment(s)/Referral(s): Narinder Rosenberg DO [Primary Care Provider] - 3 Days (office closed at time of discahrge. Please call to make appointment) Faisal Barakat PAC [PHYSICIAN MECHANICAL ADJUSTER] - 04/17/20 10:30 am (Please bring in insurance card(s) with you for this visit A face mask is required in this office) [facility], [NON-STAFF] - Activity/Diet/Wound Care/Special Instructions: Elavil dose decreased with plan to titrate down secondary to significant anticholinergic burden, continue holding off Klonopin at this time-recommended per psychiatry. 1. Avoid excessive bending and twisting 2. Avoid heavy lifting activities
[2020-04-10 11:47] LABS: Glucose,Whole Blood 163 mg/dL (75-99)
[2020-04-10] MEDS: predniSONE 10 MG TAB PO SCH (12:15)
[2020-04-10 12:47] VITALS: BMI 30.4
--- NOTE | 2020-04-10 14:47 | P.PN ---
Progress Note - Text Progress Note Date: 04/10/20 Interval History: Patient was seen today for psychiatric follow-up regarding patient's delirium. Patient did not require any overnight when necessary medications or injections. Patient has been taking his medications as prescribed and Elavil has been discontinued. Patient was sitting at the bedside with his beside him. Patient's nurse did not offer any complaints and claims that patient has been doing well today. Patient's claimed that patient did have mild hallucinations earlier and thought that "something was coming out of my purse" however for the most part she claims that she is improved significantly in terms of his mental status. He appeared to have a bright affect and spoke with promotion writer about fishing and different [place]. Patient did not offer any overnight complaints and states that he was sleeping better last night. Patient appeared to be more appropriate today and more directable. Patient was cooperative with promotion writer at the bedside and was alert and oriented 3 today. He had significantly improved attention span today. He states that he has been taking his medications and denied any side effects from them. He denies any current hallucinations. He states that he does not have any depression or anxiety today. At this time patient denies any suicidal or homical ideations, intent or plan. Patient denies any auditory, visual hallucinations. Patient denies any side effects from the medications and has been compliant with meds. Mental Status Exam: General Appearance: Patient appears to be stated age is more awake today, attempts to cooperate. Patient appears to have fair hygiene and grooming wearing hospital gown Behavior: Patient is calmly lying in bed without any agitated behavior. Improved attention span. Speech: Patient's speech is fluent and nonpressured. Hesitant at times. Mood/Affect: Patient reports their mood is "ok", affect is congruent Suicidality/Homicidality: Patient denies having any suicidal or homicidal ideation intent or plan. Perceptions: Patient denies any visual hallucinations and denies any auditory hallucinations Though content/process: Hesitant, poverty of content. Logical. Appropriate. Proven and confusion. Memory and concentration: AOX3, improving attention span. Poor memory recall 0 out of 3 after 5 minutes. Knows the current president. Judgment and insight: Limited, improving mildly Assessment Delirium, likely etiology secondary to toxic metabolic, medications (possible BZD withdrawal) versus Lewy body dementia/PD Likely underlying neurocognitive disorder History of depressive disorder and anxiety. Plan: -At this time patient DOES NOT meet criteria for inpatient psychiatric admission. -Delirium precautions recommended with patient including - avoiding use of narcotics and [employer] sedatives, limit anticholinergic medications when possible, frequent re-orientation, minimize use of restraints, open window shades during the day and close them at night -Would recommend the following medication changes/additions: Continue with Cymbalta to 60 mg daily. Can continue with Ativan 0.5 mg daily at bedtime to prevent withdrawal. Continue with Seroquel to 12.5 mg daily + 37.5mg qhs for psychosis/hallucinations/insomnia. -Psychiatry will sign off at this time -Appreciate neurology recommendations -Patient will be transferred to [facility] for subacute rehab. -Please contact with any questions.
--- NOTE | 2020-04-10 19:43 | P.PN ---
Subjective Progress Note Date: 04/10/20 Patient was seen for a follow-up. Patient was initially seen by Dr. Dubois for neurological consultation yesterday. Please refer to her note for details. 04/10/2020: Patient states he is feeling better. Denies any hallucinations. Spoke to the nurse, who states that he slept well overnight. Did not have hallucinations. Today he was just slightly confused once, when he felt he was in the [place] but then he corrected himself and knew that he was in the hospital. 04/09/2020: Patient states he is feeling fine. Apparently he had a rough night. He became combative, thinking he is in the [place] [employer]. He was hallucinating seeing kids in the hallway. He was given Haldol last night. Now he appears comfortable. He offers no complaints. He still gets pain in the left lower rib cage when he moves. It also hurts his back when he moves. 04/08/2020: Patient states that he has not been having any hallucinations, although the nurse states that he was hallucinating, seeing bees flying, he was having delusions of imagining dog for the pillow. He was seeing cats in the wheelchair. Patient is back on prednisone 10 mg daily. Patient's mentation is fluctuating sometimes is more oriented symptoms is more confused and slightly disoriented. 04/07/2020: Patient has not had any further hallucinations overnight. Patient's medications have been further optimized by psychiatrist. Patient continues to complain of pain in the left lower rib cage area. Patient states that he lives with his and his brought him here. He fell at home, after he tripped on something which she does not remember He landed on the left lower rib cage. It hurts in the back and the left lower rib cage region. There is big hematoma and a bruise. Objective - Vital Signs Vital signs: Vital Signs Temp 97.5 F L 04/10/20 07:00 Pulse 86 04/10/20 08:00 Resp 16 04/10/20 08:00 BP 154/99 04/10/20 07:00 Pulse Ox 96 04/10/20 07:00 Intake & Output 04/10/20 04/10/20 04/11/20 06:59 18:59 06:59 Intake Total 650 1036 Output Total 550 Balance 650 486 Weight 90.718 kg Intake: Oral 650 1036 Output: Urine 550 Other: Voiding Method Toilet Toilet Urinal Urinal # Voids 2 2 # Bowel Movements 2 - Exam Patient is alert and awake in no distress. Detailed testing deferred. - Labs CBC & Chem 7: 04/09/20 08:54 04/09/20 08:54 Labs: Abnormal Lab Results - Last 24 Hours (Table) 04/09/20 04/10/20 04/10/20 Range/Units 20:53 06:49 11:45 POC Glucose (mg/dL) 229 H 156 H 163 H (75-99) mg/dL Assessment and Plan Assessment: * Altered mental status with hallucinations. Probable delirium. Possible unde rlying cognitive impairment/dementia. * Polypharmacy * Status post fall with rib fractures * Frequent fall possible diabetic neuropathy. * Depression and anxiety. * Atrial flutter/fibrillation * Diabetes * Hyperlipidemia * Hypertension Plan: * Patient doing much better on current medication regimen. He did not have any hallucinations last night. Appreciate psychiatric input. Amitriptyline completely discontinued due to anticholinergic side effects. Continue Cymbalta 60 mg daily. Seroquel changed to 12.5 mg daily and 37.5 mg at bedtime. Patient on low-dose Ativan 0.5 mg daily. Patient on prednisone 10 mg. Avoid sedatives hypnotics/pain medications. Psychiatry on board. * CTA of head with contrast 04/04/[address] head normal. No definitive evidence of hydrocephalus. * Patient has atrial fibrillation, currently not on anticoagulation perhaps due to fall risk. Would defer to IM. * Patient's B12 is normal 1071 on 10/15/2019. Folic acid normal 14.6. TSH is mildly elevated 6.4, free T4 normal 1.40. * Orthopedic surgery on board for hip fracture and compression fracture. * Examination revealed weakness of bilateral toe extension, left worse than right, and also left foot peroneal muscle weakness. This may have resulted in patient fall. I would suggest EMG and nerve conduction studies of bilateral lower limbs as outpatient to evaluate for diabetic neuropathy or left peroneal nerve compression at fibular head versus radiculopathy. * Patient neurologically clear for discharge.
== END 2020-04-10 15:05 | DRG 92 ==
LOC: EC 14:00 → 4SSUR 18:10 → OBSVTOIN 04-05 12:08
PROVIDERS: ADMIT Family Medicine; ATTEND Family Medicine
DX: G92 Toxic encephalopathy (principal); R44.2 Other hallucinations; S22.43XA Multiple fractures of ribs, bilateral, initial encounter for closed fracture; Z94.0 Kidney transplant status; F02.81 Dementia in other diseases classified elsewhere, unspecified severity, with behavioral disturbance; I48.19 Other persistent atrial fibrillation; J98.11 Atelectasis; D69.3 Immune thrombocytopenic purpura; F19.239 Other psychoactive substance dependence with withdrawal, unspecified; M48.54XA Collapsed vertebra, not elsewhere classified, thoracic region, initial encounter for fracture; E11.22 Type 2 diabetes mellitus with diabetic chronic kidney disease; G20 Parkinson's disease; N18.3 Chronic kidney disease, stage 3 (moderate); E11.42 Type 2 diabetes mellitus with diabetic polyneuropathy; T40.4X5A Adverse effect of other synthetic narcotics, initial encounter; T46.5X5A Adverse effect of other antihypertensive drugs, initial encounter; Z20.828 Contact with and (suspected) exposure to other viral communicable diseases; W01.0XXA Fall on same level from slipping, tripping and stumbling without subsequent striking against object, initial encounter; I12.9 Hypertensive chronic kidney disease with stage 1 through stage 4 chronic kidney disease, or unspecified chronic kidney disease; Z79.4 Long term (current) use of insulin; I25.10 Atherosclerotic heart disease of native coronary artery without angina pectoris; R10.32 Left lower quadrant pain; G47.00 Insomnia, unspecified; E03.9 Hypothyroidism, unspecified; E66.9 Obesity, unspecified; F51.3 Sleepwalking [somnambulism]; G89.29 Other chronic pain; E78.5 Hyperlipidemia, unspecified; M54.9 Dorsalgia, unspecified; H91.90 Unspecified hearing loss, unspecified ear; F32.9 Major depressive disorder, single episode, unspecified; F41.9 Anxiety disorder, unspecified; Y93.9 Activity, unspecified; Y92.009 Unspecified place in unspecified non-institutional (private) residence as the place of occurrence of the external cause; Z91.81 History of falling; Z95.1 Presence of aortocoronary bypass graft; Z79.899 Other long term (current) drug therapy; Z79.890 Hormone replacement therapy; Z79.52 Long term (current) use of systemic steroids; Z85.46 Personal history of malignant neoplasm of prostate; Z86.19 Personal history of other infectious and parasitic diseases; Z85.820 Personal history of malignant melanoma of skin; Z86.2 Personal history of diseases of the blood and blood-forming organs and certain disorders involving the immune mechanism; Z87.01 Personal history of pneumonia (recurrent); Z80.8 Family history of malignant neoplasm of other organs or systems; Z83.2 Family history of diseases of the blood and blood-forming organs and certain disorders involving the immune mechanism; Z81.8 Family history of other mental and behavioral disorders; Z88.5 Allergy status to narcotic agent; Z98.890 Other specified postprocedural states; Z82.49 Family history of ischemic heart disease and other diseases of the circulatory system; Z68.30 Body mass index [BMI] 30.0-30.9, adult
CPT/HCPCS: 36415; 70450; 70496; 71046; 71111; 72070; 80048; 80053; 81001; 82140; 83036; 83605; 84439; 84443; 84484; 85025; 85027; 85610; 85730; 93005; 96360; 99285

== ENCOUNTER → 2020-09-04 | Outpatient (CLI) | payer MEDICARE ==
[2020-09-04 13:21] LABS: Creatinine,Urine Random 56.4 mg/dL; Protein/Creatinine Ratio,Urine 0.301
[2020-09-04 20:55] LABS: % Iron Saturation 25.08 (15.00-50.00); African American GFR (CKD) 55.8 (60.0-200.0); Albumin 4.5 g/dL (3.80-4.90); Anion Gap 13.3 mmol/L (4.00-12.00); BUN/Creat Ratio 18.57 Ratio (12.00-20.00); Calcium 9.4 mg/dL (8.7-10.3); Carbon Dioxide 25.7 mmol/L (21.6-31.8); Non-African American GFR(CKD) 48.1 (60.0-200.0); Potassium 4.6 mmol/L (3.5-5.5)
[2020-09-04 21:03] LABS: Ferritin 103.6 ng/mL (22.0-322.0)
[2020-09-04 21:09] LABS: HCT 48.8 % (39.6-50.0); MCH 28.2 pg (27.0-32.0); MCHC 30.7 g/dL (32.0-37.0); MCV 91.7 fL (80.0-97.0); Mean Platelet Volume 11.8 fL (9.5-12.2); Platelet Count 123 X 10*3/uL (140-440); RBC 5.32 X 10*6/uL (4.40-5.60); RDW 16.4 % (11.5-14.5); WBC 9.58 X 10*3/uL (4.50-10.00)
[2020-09-04 22:36] LABS: Anisocytosis (M) 2+; Basophils # (M) 0.29 X 10*3/uL (0.00-0.10); Eosinophils # (M) 0.48 X 10*3/uL (0.04-0.35); Lymphocytes # (M) 1.34 X 10*3/uL (0.90-5.00); Metamyelocytes % 4 % (0-0); Monocytes # (M) 0.57 X 10*3/uL (0.20-1.00); Myelocytes % 4 % (0-0); Neutrophils # (M) 6.13 X 10*3/uL (2.00-8.90); Neutrophils % (M) 64 %
== END | disposition home or self-care (01) ==
LOC: LABWHC1 11:30
PROVIDERS: ATTEND Internal Medicine Nephrology
DX: N18.4 Chronic kidney disease, stage 4 (severe) (principal); E55.9 Vitamin D deficiency, unspecified; N25.81 Secondary hyperparathyroidism of renal origin; D64.9 Anemia, unspecified; R80.9 Proteinuria, unspecified
CPT/HCPCS: 36415; 80048; 80197; 82040; 82306; 82570; 82728; 83540; 83550; 83970; 84156; 85025

== ENCOUNTER → 2020-11-13 | Outpatient (CLI) | payer MEDICARE | END | disposition home or self-care (01) | LOC: LABWHC1 14:49 | PROVIDERS: ATTEND Urology | DX: R97.20 Elevated prostate specific antigen [PSA] (principal) | CPT/HCPCS: 36415; 84153 ==

== ENCOUNTER 2020-12-01 14:47 | Observation (INO) | payer MEDICARE ==
[2020-12-01 15:14] LABS: Glucose,Whole Blood 130 mg/dL (75-99)
--- NOTE | 2020-12-01 15:16 | CT ---
EXAMINATION TYPE: CT brain wo con for TPA DATE OF EXAM: 12/01/2020 COMPARISON: 04/03/2020 INDICATION: Aphasia. Gait abnormality. DLP: 1132.8 mGycm, Automated exposure control for dose reduction was used. CONTRAST: None CT of the brain is performed utilizing 3 mm thick sections through the posterior fossa and 3 mm thick sections through the remaining calvarium. Study is performed within 24 hours of arrival to the hosp ital. No abnormal hyperdensity is present to suggest an acute intracranial hemorrhage. No mass lesion is evident. No acute infarcts are evident. Periventricular white matter hypodensity is present, likely on the bas is of chronic white matter ischemic changes. Ventricles and sulci are appropriate for the patient age. Paranasal sinuses and mastoid air cells within the [id number]-[id number] are clear. IMPRESSIONS: 1. Chronic appearing periventricular white matter ischemic changes, present previously. 2. No acute intracranial process
[2020-12-01 15:18] LABS: Basophils # (A) 0.1 k/uL (0-0.2); Basophils % (A) 1 %; Eosinophils # (A) 0.1 k/uL (0-0.7); Eosinophils % (A) 1 %; HCT 46.6 % (39.0-53.0); HGB 15.6 gm/dL (13.0-17.5); Lymphocytes # (A) 0.7 k/uL (1.0-4.8); Lymphocytes % (A) 10 %; MCH 28.8 pg (25.0-35.0); MCHC 33.5 g/dL (31.0-37.0); MCV 86.1 fL (80.0-100.0); Mean Platelet Volume 9.3; Monocytes # (A) 0.5 k/uL (0-1.0); Monocytes % (A) 7 %; Neutrophils # (A) 5.6 k/uL (1.3-7.7); Neutrophils % (A) 80 %; RBC 5.41 m/uL (4.30-5.90); RDW 15.6 % (11.5-15.5)
[2020-12-01 15:23] LABS: INR 1.3 (<1.2)
[2020-12-01 15:26] LABS: Albumin 3.3 g/dL (3.5-5.0); Calcium 8.7 mg/dL (8.4-10.2); Potassium 4.3 mmol/L (3.5-5.1); Total Bilirubin 0.9 mg/dL (0.2-1.3); Total Protein 5.2 g/dL (6.3-8.2)
--- NOTE | 2020-12-01 15:26 | CT ---
EXAMINATION TYPE: CT angio head neck DATE OF EXAM: 12/01/2020 HISTORY: Aphasia. Gait abnormality. COMPARISON: CT DLP: 644.8 mGycm. Automated Exposure Control for Dose Reduction was Utilized. TECHNIQUE: CTA scan of the neck is performed with IV Contrast, patient injected with 65 mL of Isovue 370, axial images are obtained, coronal and sagittal reformatted images are reviewed. Three-D recons tructed images are created on an independent workstation and reviewed. Source images are reviewed. FINDINGS: Carotid/Vascular Structures: There is a three-vessel arch. The common carotid arteries are patent to the bifurcation. Vascular calcifications at bilateral carotid bifurcations. No significant flow-limit ing stenosis is evident. Internal carotid arteries are patent to the skull base. Cervical of Pichardo: Distal right vertebral artery into the basilar artery is not identified on recons tructed images. The junction is not well-visualized on breakfast host images. Posterior cerebral vasculature i s otherwise unremarkable. Internal carotid arteries bifurcate normally into A1 and M1 segments. A2 se gments are normal. The anterior communicating artery is patent. Left Posterior communicating artery i s patent. Right posterior communicating artery is patent. IMPRESSION: 1. No flow-limiting stenosis bilateral carotid bifurcations. 2. Normal andreafski of Pich[place].
--- NOTE | 2020-12-01 15:42 | XR ---
EXAMINATION TYPE: XR chest 2V DATE OF EXAM: 12/01/2020 COMPARISON: 04/07/2020 TECHNIQUE: PA and lateral views submitted. HISTORY: Altered mental status FINDINGS: The lungs are clear and there is no pneumothorax, pleural effusion, or focal pneumonia. Heart size prominent. Atherosclerotic change aorta. Biapical pleural thickening. No overt failure. Hypertrophic and degenerative changes spine. Mildly coarsened interstitium is stable from prior exam. IMPRESSION: 1. Correlate for chronic interstitial lung disease..
[2020-12-01 15:58] LABS: Platelet Count 50 k/uL (150-450)
--- NOTE | 2020-12-01 17:55 | ED ---
Neuro HPI - General Chief Complaint: Neuro Symptoms/Deficit Stated Complaint: Poss Stroke Time Seen by Provider: 12/01/20 14:48 Source: EMS Mode of arrival: EMS Limitations: altered mental status - History of Present Illness Is the patient presenting with stroke symptoms?: No Last Known Well Date: 12/01/20 Last Known Well Time: 13:40 Initial Comments: Patient presents to the [facility] department with confusion and altered mental status. He is able to follow some commands but doesn't answer all questions appropriately. He has no focal deficits. According to EMS his symptoms began within the last couple hours. This came on gradually in that timeframe. He has had no vomiting. He has had no sick contacts. He has had no injuries. He did not travel anywhere. - Related Data Home Medications: Home Medications Medication Instructions Recorded Confirmed Finasteride [Proscar] 5 mg PO DAILY@99902/09/17 12/01/20 Tamsulosin HCl [Flomax] 0.4 mg PO DAILY@99902/09/17 12/01/20 Multivitamins, Thera [Multivitamin 1 tab PO DAILY@99912/31/18 12/01/20 (formulary)] Atorvastatin Calcium [Lipitor] 20 mg PO HS@22010/14/19 12/01/20 Vit C/E/Zn/Coppr/Lutein/Zeaxan 1 cap PO DAILY@99912/18/19 12/01/20 [Preservision Areds 2 Softgel] Calcium Carbonate [Tums] 1,000 mg PO DAILY@99912/28/19 12/01/20 Pantoprazole [Protonix] 40 mg PO DAILY@99912/28/19 12/01/20 Eltrombopag Olamine [Promacta] 25 mg PO DAILY@0800 02/23/20 12/01/20 Metoprolol Tartrate [Lopressor] 50 mg PO BID@1000,219903/05/20 12/01/20 Tacrolimus [Prograf] 1 mg PO DAILY@99904/03/20 12/01/20 mycophenolate mofetiL [Cellcept] 250 mg PO BID@1000,0 04/03/20 12/01/20 predniSONE 10 mg PO DAILY@1000 04/03/20 12/01/20 Cholecalciferol [Vitamin D3 (25 75 mcg PO HS@2100 12/01/20 12/01/20 Mcg = 1000 Iu)] DULoxetine HCL [Cymbalta] 120 mg PO DAILY@1000 12/01/20 12/01/20 INSULIN LISPRO (HumaLOG) [humaLOG] 8 unit SQ BID@1230,1815 12/01/20 12/01/20 INSULIN LISPRO (HumaLOG) [humaLOG] See Protocol SQ TID 12/01/20 12/01/20 Insulin Glargine/Lixisenatide 20 unit SQ Q24HR@1745 12/01/20 12/01/20 [Soliqua 100 Unit-33 Mcg/ml Pen] Levothyroxine Sodium [Synthroid] 75 mcg PO DAILY@1000 12/01/20 12/01/20 QUEtiapine [SEROquel] 12.5 mg PO DAILY@1000 12/01/20 12/01/20 Rivaroxaban [Xarelto] 15 mg PO HS@22012/01/20 12/01/20 Tacrolimus [Prograf] 1.5 mg PO HS@219912/01/20 12/01/20 clonazePAM [KlonoPIN] 0.5 mg PO DAILY PRN 12/01/20 12/01/20 clonazePAM [KlonoPIN] 1 mg PO HS@2100 12/01/20 12/01/20 rOPINIRole HCL [Requip] 0.25 mg PO HS@219912/01/20 12/01/20 Previous Rx's Medication Instructions Recorded QUEtiapine [SEROquel] 37.5 mg PO HS tab 04/10/20 Allergies/Adverse Reactions: Allergies Allergy/AdvReac Type Severity Reaction Status Date / Time morphine Allergy Itching Verified 12/01/20 16:31 Review of Systems ROS Statement: Those systems with pertinent positive or pertinent negative responses have been documented in the HPI. ROS Other: All systems not noted in ROS Statement are negative. General Exam Limitations: altered mental status General appearance: alert Head exam: Present: atraumatic Eye exam: Present: PERRL Pupils: Present: normal accommodation ENT exam: Present: normal exam Neck exam: Present: normal inspection. Absent: tenderness, meningismus Respiratory exam: Present: normal lung sounds bilaterally. Absent: respiratory distress Cardiovascular Exam: Present: regular rate GI/Abdominal exam: Present: soft. Absent: tenderness Extremities exam: Present: normal inspection, full ROM. Absent: tenderness Back exam: Present: normal inspection Neurological exam: Present: alert, altered. Absent: oriented X3 Psychiatric exam: Present: normal affect Skin exam: Present: warm, dry Stroke MDM - Lab Data Result diagrams: 12/01/20 15:01 12/01/20 15:01 Lab Results 12/01/20 12/01/20 12/01/20 Range/Units 15:00 15:01 15:01 WBC 7.0 (3.8-10.6) k/uL RBC 5.41 (4.30-5.90) m/uL Hgb 15.6 (13.0-17.5) gm/dL Hct 46.6 (39.0-53.0) % MCV 86.1 (80.0-100.0) fL MCH 28.8 (25.0-35.0) pg MCHC 33.5 (31.0-37.0) g/dL RDW 15.6 H (11.5-15.5) % Plt Count 50 L (150-450) k/uL MPV 9.3 Neutrophils % 80 % Lymphocytes % 10 % Monocytes % 7 % Eosinophils % 1 % Basophils % 1 % Neutrophils # 5.6 (1.3-7.7) k/uL Lymphocytes # 0.7 L (1.0-4.8) k/uL Monocytes # 0.5 (0-1.0) k/uL Eosinophils # 0.1 (0-0.7) k/uL Basophils # 0.1 (0-0.2) k/uL PT 13.0 H (9.0-12.0) sec INR 1.3 H (<1.2) APTT 24.0 (22.0-30.0) sec Sodium (137-145) mmol/L Potassium (3.5-5.1) mmol/L Chloride (98-107) mmol/L Carbon Dioxide (22-30) mmol/L Anion Gap mmol/L BUN (9-20) mg/dL Creatinine (0.66-1.25) mg/dL Est GFR (CKD-EPI)AfAm (>60 ml/min/1.73 sqM) Est GFR (CKD-EPI)NonAf (>60 ml/min/1.73 sqM) Glucose (74-99) mg/dL POC Glucose (mg/dL) 130 H (75-99) mg/dL POC Glu Flap Curer ID Maddy eTjada Calcium (8.4-10.2) mg/dL Total Bilirubin (0.2-1.3) mg/dL AST (17-59) U/L ALT (4-49) U/L Alkaline Phosphatase (38-126) U/L Troponin I (0.000-0.034) ng/mL Total Protein (6.3-8.2) g/dL Albumin (3.5-5.0) g/dL Coronavirus (PCR) (Not Detectd) 12/01/20 12/01/20 12/01/20 Range/Units 15:01 15:01 15:09 WBC (3.8-10.6) k/uL RBC (4.30-5.90) m/uL Hgb (13.0-17.5) gm/dL Hct (39.0-53.0) % MCV (80.0-100.0) fL MCH (25.0-35.0) pg MCHC (31.0-37.0) g/dL RDW (11.5-15.5) % Plt Count (150-450) k/uL MPV Neutrophils % % Lymphocytes % % Monocytes % % Eosinophils % % Basophils % % Neutrophils # (1.3-7.7) k/uL Lymphocytes # (1.0-4.8) k/uL Monocytes # (0-1.0) k/uL Eosinophils # (0-0.7) k/uL Basophils # (0-0.2) k/uL PT (9.0-12.0) sec INR (<1.2) APTT (22.0-30.0) sec Sodium 135 L (137-145) mmol/L Potassium 4.3 (3.5-5.1) mmol/L Chloride 103 (98-107) mmol/L Carbon Dioxide 25 (22-30) mmol/L Anion Gap 7 mmol/L BUN 24 H (9-20) mg/dL Creatinine 1.22 (0.66-1.25) mg/dL Est GFR (CKD-EPI)AfAm 66 (>60 ml/min/1.73 sqM) Est GFR (CKD-EPI)NonAf 57 (>60 ml/min/1.73 sqM) Glucose 130 H (74-99) mg/dL POC Glucose (mg/dL) (75-99) mg/dL POC Glu Flap Curer ID Calcium 8.7 (8.4-10.2) mg/dL Total Bilirubin 0.9 (0.2-1.3) mg/dL AST 46 (17-59) U/L ALT 45 (4-49) U/L Alkaline Phosphatase 54 (38-126) U/L Troponin I <0.012 (0.000-0.034) ng/mL Total Protein 5.2 L (6.3-8.2) g/dL Albumin 3.3 L (3.5-5.0) g/dL Coronavirus (PCR) Not Detected (Not Detectd) - Medical Decision Making Patient presents with confusion and altered mental status. His workup does not show evidence of acute stroke. He has confusion but no focal deficits. 12/01/20 17:53 Twelve-lead EKG shows ventricular rate 78 bpm, no P waves present, QRS complexes are normal, there is no ST elevation or depression, interpreted by me as atrial flutter. 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." Hard of hearing, LOW PLATELETS, History of Any Multi-Drug Resistant Organisms: None Reported Past Surgical History: Unable to Obtain, Orthopedic Surgery Additional Past Surgical History / Comment(s): kidney transplant, parathyroid surgery, knee surgery, pericardiocentesis Past Anesthesia/Blood Transfusion Reactions: No Reported Reaction Past Psychological History: Anxiety, Depression Smoking Status: Never smoker Past Alcohol Use History: Rare Past Drug Use History: None Reported - Past Family History Father Family Medical History: Deep Vein Thrombosis (DVT) Son(s) Family Medical History: Cancer Additional Family Medical History / Comment(s): Skin cancer. Course Vital Signs 12/01/20 12/01/20 12/01/20 14:59 15:05 15:10 Temperature 97.9 F 97.9 F Pulse Rate 81 75 81 Respiratory 16 18 18 Rate Blood Pressure 145/89 145/89 O2 Sat by Pulse 100 97 97 Oximetry 12/01/20 12/01/20 12/01/20 15:21 15:30 16:00 Temperature Pulse Rate 74 70 75 Respiratory 16 16 16 Rate Blood Pressure 158/101 158/101 154/107 O2 Sat by Pulse 96 94 L 96 Oximetry 12/01/20 17:00 Temperature Pulse Rate 77 Respiratory 16 Rate Blood Pressure 177/116 O2 Sat by Pulse 98 Oximetry Disposition Clinical Impression: Confusion Disposition: ADMITTED IP TO THIS HOSP Condition: Fair Is patient prescribed a controlled substance at d/c from ED?: No Referrals: Narinder Rosenberg DO [Primary Care Provider] - 1-2 days
[2020-12-01 18:01] LABS: Appearance,Urine Clear (Clear); Bilirubin,Urine Negative (Negative); Blood,Urine Negative (Negative); Color,Urine Light Yellow; Glucose,Urine (UA) Negative (Negative); Ketones,Urine Negative (Negative); Leukocyte Esterase,Urine Negative (Negative); Nitrite,Urine Negative (Negative); PH, Urine 6.5 (5.0-8.0); Protein,Urine Negative (Negative); Specific Gravity,Urine 1.026 (1.001-1.035); Urobilinogen,Urine <2.0 mg/dL (<2.0)
[2020-12-01] MEDS ORDERED: ONDANSETRON 4 MG/2 ML VIAL IVP PRN (18:03)
[2020-12-01] MEDS ORDERED: NALOXONE 0.4 MG/ML 1 ML VIAL IV PRN (18:03)
[2020-12-01] MEDS ORDERED: ACETAMINOPHEN TAB 325 MG TAB PO PRN (19:39)
[2020-12-01 20:23] LABS: Glucose,Whole Blood 214 mg/dL (75-99)
[2020-12-01] MEDS: INSULIN ASPART (NovoLOG) 100 UNIT/ML VIAL SQ SCH (21:43)
[2020-12-01] MEDS: QUEtiapine 25 MG TAB PO SCH (21:45)
[2020-12-01] MEDS: ATORVASTATIN 20 MG TAB PO SCH (21:46)
[2020-12-01] MEDS: METOPROLOL TARTRATE 50 MG TAB PO SCH (21:47)
[2020-12-01] MEDS: TACROLIMUS 0.5 MG CAP PO SCH (21:48)
[2020-12-01] MEDS ORDERED: RIVAROXABAN 15 MG TAB PO SCH (22:00)
[2020-12-02] MEDS ORDERED: amLODIPine 5 MG TAB PO STA (02:05)
[2020-12-02 07:58] LABS: Glucose,Whole Blood 99 mg/dL (75-99)
[2020-12-02] MEDS: PANTOPRAZOLE 40 MG TABLET PO SCH (08:17)
[2020-12-02] MEDS: METOPROLOL TARTRATE 50 MG TAB PO SCH ×2 (08:17→22:14)
[2020-12-02] MEDS: QUEtiapine 25 MG TAB PO SCH ×2 (08:17→22:14)
[2020-12-02] MEDS: LEVOTHYROXINE 75 MCG TAB PO SCH (08:17)
[2020-12-02] MEDS: FINASTERIDE 5 MG TAB PO SCH (08:17)
[2020-12-02] MEDS: DULoxetine HCL 60 MG CAPSULE.DR PO SCH (08:18)
[2020-12-02] MEDS: TAMSULOSIN 0.4 MG CAP.ER.24H PO SCH (08:18)
[2020-12-02] MEDS: TACROLIMUS 1 MG CAP PO SCH (08:42)
[2020-12-02] MEDS: ELTROMBOPAG OLAMINE 25 MG PO SCH (08:48)
[2020-12-02] MEDS ORDERED: TACROLIMUS 0.5 MG CAP PO SCH (10:00)
--- NOTE | 2020-12-02 10:10 | P.CNNES ---
History of Present Illness Consult date: 12/02/20 Requesting physician: Daniele Shafer Reason for Consult: tia History of Present Illness: This is a 80-year-old gentleman with history of hypertension, hyperlipidemia, diabetes mellitus, atrial fibrillation on Xarelto chronic renal failure status post kidney transplant and hypothyroidism who presented emergency department on the 12/01/2020 for confusion. Some of the history was obtained from medical record. Per the patient he stated that the he was off by yesterday and he said that the he had a hard time using the light switch as well as the when his was asking question he was having a hard time answering her questions. He denies of any focal weakness associate with this, urinary or bowel incontinence or any tongue soreness. He denies of any antiseizure history. He feels he is back to baseline currently. Per the ED note according to the EMS symptoms began the last couple hours prior to presenting to the hospital and came on gradually. In the ED, patient the follows some commands but not does not answer all questions appropriately and he did not have any focal deficit. He said that in the last couple months he had episodes of fall and he feels like when he is walking he is unsteady but he does not lose consciousness with history with this. He uses a walker when he is going out or long distances. He denies any further visual or auditory hallucination. He denies of following up with a neurologist as an outpatient. Some of the patient's home medication includes: Xarelto 50 mg daily at bedtime, CellCept 250 mg 1 tablet twice a day, Klonopin 1 mg daily at bedtime and up 0.5 mg daily as needed, ropinirole 0.25 mg daily at bedtime, tacrolimus 1.5 mg daily at bedtime and another one 1 mg daily, prednisone 10 mg daily, Seroquel, Synthroid, Cymbalta, Lipitor 20 mg, Lopressor, Protonix, Upon reviewing the patient medical record the it seems that the patient was seen by neuro-hospitalist over our facility on 04/05/[address] Dubois for confusion and hallucination. She felt the patient's worsening visual and tactile hallucination were possibly questionable Parkinson's disease and or dementia of Lewy body and possible REM sleep behavioral disorder. Then the patient was seen by Dr. Freida gary on 04/10/2020 and he felt the patient altered mental status with hallucinations was probable delirium and possible underlying cognitive impairment dementia and he felt the patient's frequent fall possibly due to diabetic neuropathy Some of the workup in the hospital consisted of: Initial vital signs: Blood pressure of 145/89, heart rate of 81, respiratory of 16, temperature of 97.9 Fahrenheit oral and pulse ox of 1% at room air. CT of the head is reported as chronic appearing periventricular white matter ischemic change, presents previously. No acute intracranial process. CT angiography of the head and neck is reported as no flow-limiting stenosis bilateral carotid bifurcation. Normal iliamna of Pichardo. EKG is reported as atrial flutter with variable AV block with premature ventricular or aberrantly conducted complexes. Septal infarct, age undetermined. Possible infarct, age undetermined. Abnormal EKG. White blood cell is 7.0 which is considered normal. The platelet is 50 which is low. Initial POC glucose is 130 at. Sodium is 135 which is minimally low otherwise the rest of the basic electrolyte the panel is within normal limits. Review of Systems Review of system: The 12 point system was reviewed and apparent positive and negative per HPI. 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." Hard of hearing, LOW PLATELETS, History of Any Multi-Drug Resistant Organisms: None Reported Past Surgical History: Unable to Obtain, Orthopedic Surgery Additional Past Surgical History / Comment(s): kidney transplant, parathyroid surgery, knee surgery, pericardiocentesis Past Anesthesia/Blood Transfusion Reactions: No Reported Reaction Past Psychological History: Anxiety, Depression Smoking Status: Never smoker Past Alcohol Use History: Rare Past Drug Use History: None Reported - Past Family History Father Family Medical History: Deep Vein Thrombosis (DVT) Son(s) Family Medical History: Cancer Additional Family Medical History / Comment(s): Skin cancer. Medications and Allergies Home Medications Medication Instructions Recorded Confirmed Type Finasteride [Proscar] 5 mg PO DAILY@1000 02/09/17 12/01/20 History Tamsulosin HCl [Flomax] 0.4 mg PO DAILY@1000 02/09/17 12/01/20 History Multivitamins, Thera [Multivitamin 1 tab PO DAILY@1000 12/31/18 12/01/20 History (formulary)] Atorvastatin Calcium [Lipitor] 20 mg PO HS@2200 10/14/19 12/01/20 History Vit C/E/Zn/Coppr/Lutein/Zeaxan 1 cap PO DAILY@1000 12/18/19 12/01/20 History [Preservision Areds 2 Softgel] Calcium Carbonate [Tums] 1,000 mg PO DAILY@1000 12/28/19 12/01/20 History Pantoprazole [Protonix] 40 mg PO DAILY@1000 12/28/19 12/01/20 History Eltrombopag Olamine [Promacta] 25 mg PO DAILY@0800 02/23/20 12/01/20 History Metoprolol Tartrate [Lopressor] 50 mg PO BID@1000,0 03/05/20 12/01/20 History Tacrolimus [Prograf] 1 mg PO DAILY@99904/03/20 12/01/20 History mycophenolate mofetiL [Cellcept] 250 mg PO BID@1000,219904/03/20 12/01/20 History predniSONE 10 mg PO DAILY@1000 04/03/20 12/01/20 History QUEtiapine [SEROquel] 37.5 mg PO HS tab 04/10/20 12/01/20 Rx Cholecalciferol [Vitamin D3 (25 75 mcg PO HS@2100 12/01/20 12/01/20 History Mcg = 1000 Iu)] DULoxetine HCL [Cymbalta] 120 mg PO DAILY@1000 12/01/20 12/01/20 History INSULIN LISPRO (HumaLOG) [humaLOG] 8 unit SQ BID@1230,1815 12/01/20 12/01/20 History INSULIN LISPRO (HumaLOG) [humaLOG] See Protocol SQ TID 12/01/20 12/01/20 History Insulin Glargine/Lixisenatide 20 unit SQ Q24HR@1745 12/01/20 12/01/20 History [Soliqua 100 Unit-33 Mcg/ml Pen] Levothyroxine Sodium [Synthroid] 75 mcg PO DAILY@1000 12/01/20 12/01/20 History QUEtiapine [SEROquel] 12.5 mg PO DAILY@1000 12/01/20 12/01/20 History Rivaroxaban [Xarelto] 15 mg PO HS@219912/01/20 12/01/20 History Tacrolimus [Prograf] 1.5 mg PO HS@219912/01/20 12/01/20 History clonazePAM [KlonoPIN] 0.5 mg PO DAILY PRN 12/01/20 12/01/20 History clonazePAM [KlonoPIN] 1 mg PO HS@2100 12/01/20 12/01/20 History rOPINIRole HCL [Requip] 0.25 mg PO HS@219912/01/20 12/01/20 History Allergies Allergy/AdvReac Type Severity Reaction Status Date / Time morphine Allergy Itching Verified 12/01/20 16:31 Physical Examination - Vital Signs Vital Signs: Vital Signs Temp Pulse Pulse Resp BP BP Pulse Ox 12/02/20 07:00 97.6 F 65 18 178/111 95 12/02/20 06:41 78 18 156/99 97 12/02/20 03:49 78 17 163/100 98 12/02/20 01:56 65 18 184/114 96 12/01/20 23:00 64 18 173/100 95 12/01/20 21:00 71 18 168/102 12/01/20 19:21 89 18 143/99 96 12/01/20 18:10 98.3 F 71 18 172/108 96 12/01/20 18:00 80 16 171/105 96 12/01/20 17:30 71 17 178/99 97 12/01/20 17:00 77 16 177/116 98 12/01/20 16:00 75 16 154/107 96 12/01/20 15:30 70 16 158/101 94 L 12/01/20 15:21 74 16 158/101 96 12/01/20 15:10 81 18 97 12/01/20 15:05 97.9 F 75 18 145/89 97 12/01/20 14:59 97.9 F 81 16 145/89 100 GENERAL: The patient is lying in bed and is not in acute distress. CHEST: The heart rate is regular rate rhythm. No murmurs to auscultation. No carotid bruit bilaterally. LUNG: Clear to auscultation bilaterally no wheezing noted throughout. Not labored breathing. ABDOMEN/GI: Bowel sounds present in all 4 quadrants. No tenderness to palpation throughout. NEUROLOGICAL: Higher mental function: The patient is awake, alert, oriented to self, place and felt slight delay in response. Regarding time he is oriented to month but not year (said it was 2000). Patient is able to name objects (such as pen and watch) Patient is following commands. No aphasia and no neglect. Cranial nerves: The pupils are round, equal and reactive to light and accommodation. Visual de la garza are full to confrontation throughout. Extraocular movement is intact no nystagmus is noted. Facial sensation is normal to touch throughout. The facial strength is normal throughout. Hearing is moderately decreased bilaterally to hand rub. Tongue is midline and moved [id number] without any difficulty. No dysarthria is noted. Shoulder shrug is normal bilaterally. Motor: Gait: Is taking short steps but has normal arm swings, is not unsteady walking. The strength is 5 over 5 throughout. Normal tone and bulk. No cogwheel ridigity or resting tremor. Cerebellum: Normal finger to nose heel to chin bilaterally. Sensation: Sensation is normal to touch throughout. Reflexes (right/left): 2+ in uppers. While patellars are 1-2+ while ankles are 1+ bilaterally. Plantars are downgoing bilaterally. Results Urinalysis is negative for urinary tract infection. Coagulation study: PT of 13.0, INR 1.3 and PTT of 24.0. Chávez virus PCR was not detected. - Laboratory Findings CBC and BMP: 12/01/20 15:12/01/20 15:01 Abnormal Lab Findings: Abnormal Labs 12/01/20 12/01/20 12/01/20 15:00 15:01 15:01 RDW 15.6 H Plt Count 50 L Lymphocytes # 0.7 L PT 13.0 H INR 1.3 H Sodium BUN Glucose POC Glucose (mg/dL) 130 H Total Protein Albumin 12/01/20 12/01/20 15:01 20:21 RDW Plt Count Lymphocytes # PT INR Sodium 135 L BUN 24 H Glucose 130 H POC Glucose (mg/dL) 214 H Total Protein 5.2 L Albumin 3.3 L Assessment and Plan Assessment: Altered mental status seems due to Encephalopathy to medication effect (on polypharmacy) and toxic encephalopathy Possibly the patient could have underlying cognitive impairment/dementia Polypharmacy Thrombocytopenia History of falls were reported as possible as diabetic neuropathy. Possible also component of polypharmacy Atrial fibrillation on Xarelto Diabetes mellitus Hyperlipidemia History of chronic kidney disease status post kidney transplant Plan: * CT of the head is reported as chronic appearing periventricular white matter ischemic change, presents previously. No acute intracranial process. * CT angiography of the head and neck is reported as no flow-limiting stenosis bilateral carotid bifurcation. Normal iliamna of Pichardo. * He is on Xarelto for his Afib. Since patient has falls at home possibly consider either switching it to Eliquis which has less severe brain bleed compared to Xarelto vs holding anticoagulation if continues to fall which will cause increase risk of bleed because of falls, but will defer decision to the primary team. * Continue Lipitor 20mg qhs. * I ordered routine EEG. I will not start the patient on an antiepileptic drug unless there is echo from discharges or seizure on the EEG. * Ordered TSH, vitamin B12, folate and vitamin B6 level and HbA1c and 2D echo. * Consulted physical therapy and occupational therapy for gait training. * I consulted the psychiatry to modify patient's psychiatric medication since he is on many medication. * Recommend the patient to get an EMG with nerve conduction study as an outpatient to rule out any neuropathy contributing to his history of falls. * Recommend the patient to follow-up with a neurologist as an outpatient within 1-2 weeks for further workup. The plan is discussed with the patient's nurse. Thank you for the consultation. Tyson Glaser MD Neuro-Hospitalist Time with Patient: Greater than 30
--- NOTE | 2020-12-02 12:01 | ECHOF ---
Referral Reason:tia MEASUREMENTS -------- HEIGHT: 172.7 cm WEIGHT: 85.7 kg BP: 178/111 RVIDd: 3.3 cm (< 3.3) IVSd: 1.3 cm (0.6 - 1.1) LVIDd: 4.6 cm (3.9 - 5.3) LVPWd: 1.3 cm (0.6 - 1.1) IVSs: 1.3 cm LVIDs: 3.4 cm LVPWs: 1.6 cm LA Diam: 3.7 cm (2.7 - 3.8) LAESV Index (A-L): 28.03 ml/m Ao Diam: 2.8 cm (2.0 - 3.7) AV Cusp: 1.5 cm (1.5 - 2.6) MV EXCURSION: 13.275 mm (> 18.000) MV EF SLOPE: 47 mm/s (70 - 150) EPSS: 0.4 cm AR PHT: 1220 ms RAP: 5.00 mmHg RVSP: 37.42 mmHg FINDINGS -------- Atrial fibrillation. This was a technically adequate study. The left ventricular size is normal. There is mild concentric left ventricular hypertrophy. Overa ll left ventricular systolic function is normal with, an EF between 60 - 65 %. The right ventricle is mildly enlarged. The left atrium is normal in size. The right atrium is normal in size. There is mild aortic valve sclerosis. There is mild aortic regurgitation. Mild mitral annular calcification present. There is trace to mild mitral regurgitation. Mild tricuspid regurgitation present. There is mild pulmonary hypertension. The right ventricular systolic pressure, as measured by Doppler, is 37.42mmHg. The pulmonic valve was not well visualized. The aortic root is dilated measuring 2.8cm. IVC Not well visulized. There is no pericardial effusion. CONCLUSIONS -------- 1. The left ventricular size is normal. 2. There is mild concentric left ventricular hypertrophy. 3. Overall left ventricular systolic function is normal with, an EF between 60 - 65 %. 4. The right ventricle is mildly enlarged. 5. There is mild aortic valve sclerosis. 6. There is mild aortic regurgitation. 7. Mild mitral annular calcification present. 8. There is trace to mild mitral regurgitation. 9. Mild tricuspid regurgitation present. 10. There is mild pulmonary hypertension. 11. The right ventricular systolic pressure, as measured by Doppler, is 37.42mmHg. 12. The aortic root is dilated measuring 2.8cm. 13. There is no pericardial effusion. HAIR SPRING CUTTER: Darline Johnson RDCS
[2020-12-02 12:06] LABS: Glucose,Whole Blood 229 mg/dL (75-99)
[2020-12-02] MEDS: INSULIN ASPART (NovoLOG) 100 UNIT/ML VIAL SQ SCH ×2 (12:41→17:58)
--- NOTE | 2020-12-02 13:42 | P.CN ---
Psychiatric Consult - . Consult date: 12/02/20 Consult:: 12/02/20 12:26 IDENTIFYING DATA: This patient is a 80-year-old male who currently lives in a house with his has 2 kids collects Social Security and a pension. HISTORY OF PRESENT ILLNESS: The patient presented to the hospital yesterday with complaints of confusion however not having any focal deficits. Apparently the confusion started approximately 2 hours before coming into the hospital. Patient had a sodium of 135 and troponins were negative. Neurology was on board and following patient and after assessment claim that patient had encephalopathy likely due to medications and polypharmacy and likely underlying cognitive impairment. Patient had a CT scan of his head which showed chronic periventricular white matter ischemic changes. Patient was seen at the bedside today and was eating his lunch. Patient was fairly appropriate and agreeable to speak to fiction and nonfiction prose writer. He spoke briefly about his symptoms before coming into the hospital. He denies any new changes in his medications and states that he follows up with Dr. Jaeger at [facility] who is his psychiatrist. He is denying any changes in his mood or anxiety. He states that his sleep has been "on and off". He states that he is at "[facility]" and states that he knows his name and also correctly identified today's date. He knows who the current president is. At this time patient denies any suicidal or homical ideations, intent or plan. Patient denied using any recreational drugs. He is denying any auditory or visual hallucinations. PAST PSYCHIATRIC HISTORY: Patient has a a history of possible dementia, depression and anxiety. Patient was previously on Seroquel, Cymbalta and Requip. Patient denies any previous psychiatric hospitalizations. Patient's states that he was following up with Dr. Jaeger at [facility]. Patient denies any history of suicide attempts in the past. PAST MEDICAL HISTORY: A. fib, diabetes mellitus, hyperlipidemia, hypertension, thyroid disorder, kidney transplant in 2002, possible dementia. ALLERGIES: as per EMR. CHEMICAL DEPENDENCY HISTORY: as per HPI. FAMILY PSYCHIATRIC/SUBSTANCE USE HISTORY: As per states that his mother and sister had Alzheimer's dementia. SOCIAL HISTORY: Patient was born and raised in [place] [place]. Patient's states that she has an associates degree and worked as a [employer] for [employer]. Patient currently lives in his house with his has 2 kids collects Social Security and a pension. MENTAL STATUS EXAM: General Appearance: Patient appears to be stated age is lethargic, fair attention span, attempts to cooperate. Patient appears to have fair hygiene and grooming wearing hospital gown with good eye contact. Behavior: Patient is calmly lying in bed without any agitated behavior. Fair attention span. Attempts to cooperate. Mood/Affect: Patient reports their mood is "ok", affect is congruent and constricted Suicidality/Homicidality: Patient denies having any suicidal or homicidal ideation intent or plan. Perceptions: Patient denies any visual hallucinations and denies any auditory hallucinations Though content/process: Hesitant, poverty of content. Logical. Significant confusion. Memory and concentration: AOX3, fair attention span. Can spell "WORLD" backwards.knows the current Pres. is Judgment and insight: Limited IMPRESSIONS: Delirium, likely etiology secondary to toxic metabolic, medications History of depressive disorder and anxiety. Likely underlying dementia/cognitive impairment. PLAN: -At this time patient DOES NOT meet criteria for inpatient psychiatric admissio n. -Delirium precautions recommended with patient including - avoiding use of narcotics and SLIP COVER ESTIMATOR sedatives, limit anticholinergic medications when possible, frequent re-orientation, minimize use of restraints, open window shades during the day and close them at night -Would recommend the following medication changes/additcan continue with cymbalta 120 mg daily. Continue holding off Klonopin at this time as this may be contributing to acute episodes of confusion. Continue with Seroquel 37.5 mg daily at bedtime and 12.5 mg daily. Continue with Requip 0.25 mg daily at be dtime. Added melatonin 3mg qhs for sleep. -At this time psychiatry will sign off. Patient will be following up with his psychiatrist Dr. Jaeger. -Appreciate neurology recommendations. -Please contact with any questions. 12/02/20 13:34
--- NOTE | 2020-12-02 14:55 | EEG ---
ELECTROENCEPHALOGRAM REPORT DATE OF VISIT: 12/02/2020. CLINICAL HISTORY: This is a 80-year-old gentleman who presented to the emergency department for confusion. The EEG is obtained to evaluate for seizure and epileptiform activity. RELEVANT MEDICATIONS: The patient is not on any antiepileptic drugs. EEG TYPE: A routine 21 channel EEG performed with video using the 10/20 electrode placement system. DESCRIPTION: Wakefulness and drowsiness are obtained. During wakefulness, there is a posterior dominant rhythm of low to moderate voltage, reactive, well modulated, of 6-7 hertz activity. During drowsiness, there is slowing and attenuation of the background activity. There is no physiological stage 2 sleep seen. There is no focal slowing. Interictal and ictal is none. ACTIVATION PROCEDURE: Photic stimulation did not evoke a positive response. Hyperventilation is not performed. CLINICAL INTERPRETATION: This is an abnormal routine EEG. The background slowing is suggestive of mild encephalopathy. There are no focal slowing, epileptiform discharges or seizure on the EEG. Clinical correlation is recommended. GIOVANNY / DEREK: [id number] / CARMELO
--- NOTE | 2020-12-02 15:40 | P.HPIM ---
History of Present Illness H&P Date: 12/02/20 Chief Complaint: Confusion This is a 80-year-old gentleman with past medical history of falls , gait dysfunction, uses a walker ,atrial fibrillation, diabetes mellitus, hyperli pidemia, hypertension,CKD,renal transplant, polio, chronic back pain, parathyroid surgery, anxiety, depression and multiple other medical issues brought into the ER with complaints of altered mental status, confusion. He reports he didn't know where he was at, difficulty answering questions, diffic ulty following commands. Denies recent falls , trauma .Denies any syncope, seizure activity, or focal weakness. Denies chest pain, palpitations or shortness of breath. Denies nausea vomiting or diarrhea. Denies chest pain, palpitations or shortness of breath.brain CT reported no acute intracranial process, CTA reported no flow-limiting stenosis bilateral carotid bifurcations, normal [place]. Chest x-ray reported chronic interstitial lung disease. This morning patient alert and oriented 3, follows commands, recognizes PCP, Dr. Rosenberg. Able to name the [place] where [facility] PCP office located. Afebrile, normal WBC. Hemoglobin 15.6, platelets 50-Xarelto placed on hold, INR 1.3. Sodium 135, potassium 4.3, BUN 24, creatinine 1.22, glucose 1:30, albumin 3.3. UA negative, liriano virus not detected. Review of Systems ROS Statement: Those systems with pertinent positive or pertinent negative responses have been documented in the HPI. ROS Other: All systems not noted in ROS Statement are negative. 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." Hard of hearing, LOW PLATELETS, History of Any Multi-Drug Resistant Organisms: None Reported Past Surgical History: Unable to Obtain, Orthopedic Surgery Additional Past Surgical History / Comment(s): kidney transplant, parathyroid surgery, knee surgery, pericardiocentesis Past Anesthesia/Blood Transfusion Reactions: No Reported Reaction Past Psychological History: Anxiety, Depression Smoking Status: Never smoker Past Alcohol Use History: Rare Past Drug Use History: None Reported - Past Family History Father Family Medical History: Deep Vein Thrombosis (DVT) Son(s) Family Medical History: Cancer Additional Family Medical History / Comment(s): Skin cancer. Mother Family Medical History: No Reported History Additional Family Medical History / Comment(s): Mother was healthy Medications and Allergies Home Medications Medication Instructions Recorded Confirmed Type Finasteride [Proscar] 5 mg PO DAILY@99902/09/17 12/01/20 History Tamsulosin HCl [Flomax] 0.4 mg PO DAILY@99902/09/17 12/01/20 History Multivitamins, Thera [Multivitamin 1 tab PO DAILY@99912/31/18 12/01/20 History (formulary)] Atorvastatin Calcium [Lipitor] 20 mg PO HS@219910/14/19 12/01/20 History Vit C/E/Zn/Coppr/Lutein/Zeaxan 1 cap PO DAILY@99912/18/19 12/01/20 History [Preservision Areds 2 Softgel] Calcium Carbonate [Tums] 1,000 mg PO DAILY@99912/28/19 12/01/20 History Pantoprazole [Protonix] 40 mg PO DAILY@99912/28/19 12/01/20 History Eltrombopag Olamine [Promacta] 25 mg PO DAILY@0802/23/20 12/01/20 History Metoprolol Tartrate [Lopressor] 50 mg PO BID@1000,219903/05/20 12/01/20 History Tacrolimus [Prograf] 1 mg PO DAILY@99904/03/20 12/01/20 History mycophenolate mofetiL [Cellcept] 250 mg PO BID@1000,219904/03/20 12/01/20 History predniSONE 10 mg PO DAILY@99904/03/20 12/01/20 History QUEtiapine [SEROquel] 37.5 mg PO HS tab 04/10/20 12/01/20 Rx Cholecalciferol [Vitamin D3 (25 75 mcg PO HS@2100 12/01/20 12/01/20 History Mcg = 1000 Iu)] DULoxetine HCL [Cymbalta] 120 mg PO DAILY@99912/01/20 12/01/20 History INSULIN LISPRO (HumaLOG) [humaLOG] 8 unit SQ BID@1230,1815 12/01/20 12/01/20 History INSULIN LISPRO (HumaLOG) [humaLOG] See Protocol SQ TID 12/01/20 12/01/20 History Insulin Glargine/Lixisenatide 20 unit SQ Q24HR@1745 12/01/20 12/01/20 History [Soliqua 100 Unit-33 Mcg/ml Pen] Levothyroxine Sodium [Synthroid] 75 mcg PO DAILY@1000 12/01/20 12/01/20 History QUEtiapine [SEROquel] 12.5 mg PO DAILY@1000 12/01/20 12/01/20 History Rivaroxaban [Xarelto] 15 mg PO HS@2200 12/01/20 12/01/20 History Tacrolimus [Prograf] 1.5 mg PO HS@2200 12/01/20 12/01/20 History clonazePAM [KlonoPIN] 0.5 mg PO DAILY PRN 12/01/20 12/01/20 History clonazePAM [KlonoPIN] 1 mg PO HS@2100 12/01/20 12/01/20 History rOPINIRole HCL [Requip] 0.25 mg PO HS@2200 12/01/20 12/01/20 History Allergies Allergy/AdvReac Type Severity Reaction Status Date / Time morphine Allergy Itching Verified 12/01/20 16:31 Physical Exam Vitals: Vital Signs Temp Pulse Pulse Resp BP BP Pulse Ox 12/02/20 09:30 138/85 12/02/20 07:00 97.6 F 65 18 178/111 95 12/02/20 06:41 78 18 156/99 97 12/02/20 03:49 78 17 163/100 98 12/02/20 01:56 65 18 184/114 96 12/01/20 23:00 64 18 173/100 95 12/01/20 21:00 71 18 168/102 12/01/20 19:21 89 18 143/99 96 12/01/20 18:10 98.3 F 71 18 172/108 96 12/01/20 18:00 80 16 171/105 96 12/01/20 17:30 71 17 178/99 97 12/01/20 17:00 77 16 177/116 98 12/01/20 16:00 75 16 154/107 96 12/01/20 15:30 70 16 158/101 94 L 12/01/20 15:21 74 16 158/101 96 12/01/20 15:10 81 18 97 12/01/20 15:05 97.9 F 75 18 145/89 97 12/01/20 14:59 97.9 F 81 16 145/89 100 PHYSICAL EXAMINATION: GENERAL: The patient is alert and oriented x3, no acute distress. Well developed, well nourished. Speech fluent, appropriate. HEENT: Pupils are round and equally reacting to light. EOMI. No scleral icterus. No conjunctival pallor. Normocephalic, atraumatic. No pharyngeal erythema. No thyromegaly. CARDIOVASCULAR: S1 and S2 present. No murmurs, rubs, or gallops. PULMONARY: Chest is clear to auscultation, no wheezing or crackles. ABDOMEN: Soft, nontender, nondistended, normoactive bowel sounds. No palpable organomegaly. MUSCULOSKELETAL: No joint swelling or deformity. EXTREMITIES: No cyanosis, clubbing, or pedal edema. NEUROLOGICAL: Gross neurological examination did not reveal any focal deficits. SKIN: No rashes. No petechiae. Warm and dry Results CBC & Chem 7: 12/01/20 15:01 12/01/20 15:01 Labs: Abnormal Lab Results - Last 24 Hours (Table) 12/01/20 12/01/20 12/01/20 Range/Units 15:00 15: 15: RDW 15.6 H (11.5-15.5) % Plt Count 50 L (150-450) k/uL Lymphocytes # 0.7 L (1.0-4.8) k/uL PT 13.0 H (9.0-12.0) sec INR 1.3 H (<1.2) Sodium (137-145) mmol/L BUN (9-20) mg/dL Glucose (74-99) mg/dL POC Glucose (mg/dL) 130 H (75-99) mg/dL Total Protein (6.3-8.2) g/dL Albumin (3.5-5.0) g/dL 12/01/20 12/01/20 Range/Units 15:01 20:21 RDW (11.5-15.5) % Plt Count (150-450) k/uL Lymphocytes # (1.0-4.8) k/uL PT (9.0-12.0) sec INR (<1.2) Sodium 135 L (137-145) mmol/L BUN 24 H (9-20) mg/dL Glucose 130 H (74-99) mg/dL POC Glucose (mg/dL) 214 H (75-99) mg/dL Total Protein 5.2 L (6.3-8.2) g/dL Albumin 3.3 L (3.5-5.0) g/dL Assessment and Plan Assessment: Altered mental status, suspect related to acute metabolic, toxic encephalopathy, possibly medication induced. Possible underlying cognitive impairment, dementia, per hospitalist neurologist Thrombocytopenia, in a patient on immunosuppressive therapy Chronic renal failure stage III, history of renal transplant Diabetes mellitus type 2 with diabetic neuropathy Hypothyroidism CAD, history of CABG Hypertension Hyperlipidemia Chronic persistent atrial fibrillation, on Xarelto. History of slow growing prostate cancer, under surveillance with Dr. Craig History of melanoma Anxiety, depression Chronic back pain History of falls Plan: Continue on current medication regime ,monitoring and symptomatic treatment. Close monitoring of platelets, with repeat labs ordered for am. Hold Xarelto until platelets greater than 50K.Neurology recommendations noted and appreciated. Psychiatry evaluation in place, recommendations pending. The impression and plan of care has been dictated as directed. : I performed a history and examination of this patient, discussed the same with the dictator. I agree with the dictator's note ,documented as a scribe. Any additional findings or plans will be noted.
[2020-12-02 17:22] LABS: Glucose,Whole Blood 136 mg/dL (75-99)
[2020-12-02] MEDS ORDERED: INSULIN DETEMIR (LEVEMIR) 100 UNIT/ML SYR SQ SCH (17:45)
[2020-12-02 19:55] LABS: Glucose,Whole Blood 122 mg/dL (75-99)
[2020-12-02] MEDS ORDERED: MELATONIN 3 MG TABLET PO SCH (21:00)
[2020-12-02] MEDS: TACROLIMUS 0.5 MG CAP PO SCH (22:15)
[2020-12-02] MEDS: ATORVASTATIN 20 MG TAB PO SCH (22:15)
[2020-12-03 04:02] LABS: Folate, Serum >24.0 ng/mL
[2020-12-03] MEDS: LEVOTHYROXINE 75 MCG TAB PO SCH (05:27)
[2020-12-03 07:36] LABS: Glucose,Whole Blood 114 mg/dL (75-99)
[2020-12-03] MEDS: ELTROMBOPAG OLAMINE 25 MG PO SCH (08:01)
[2020-12-03] MEDS: DULoxetine HCL 60 MG CAPSULE.DR PO SCH (08:08)
[2020-12-03] MEDS: QUEtiapine 25 MG TAB PO SCH (08:08)
[2020-12-03] MEDS: PANTOPRAZOLE 40 MG TABLET PO SCH (08:08)
[2020-12-03] MEDS: METOPROLOL TARTRATE 50 MG TAB PO SCH (08:10)
[2020-12-03] MEDS: TAMSULOSIN 0.4 MG CAP.ER.24H PO SCH (08:10)
[2020-12-03] MEDS: FINASTERIDE 5 MG TAB PO SCH (08:10)
[2020-12-03] MEDS: TACROLIMUS 1 MG CAP PO SCH (08:11)
[2020-12-03 08:13] VITALS: TEMP 97.7
[2020-12-03] MEDS ORDERED: amLODIPine 5 MG TAB PO SCH (10:45)
[2020-12-03 10:48] VITALS: BP 116/70; PULSE 76; RESP 18
[2020-12-03 12:03] LABS: Basophils # (A) 0.06 X 10*3/uL (0.00-0.10); Basophils % (A) 0.8 %; Eosinophils # (A) 0.17 X 10*3/uL (0.04-0.35); Eosinophils % (A) 2.3 %; HCT 46.8 % (39.6-50.0); HGB 14.9 g/dL (13.0-17.0); Lymphocytes # (A) 1.03 X 10*3/uL (0.90-5.00); MCH 28.1 pg (27.0-32.0); MCHC 31.8 g/dL (32.0-37.0); MCV 88.1 fL (80.0-97.0); Mean Platelet Volume 11.5 fL (9.5-12.2); Monocytes # (A) 0.76 X 10*3/uL (0.20-1.00); Monocytes % (A) 10.3 %; Neutrophils # (A) 5.26 X 10*3/uL (1.80-7.70); Neutrophils % (A) 71.4 %; Platelet Count 53 X 10*3/uL (140-440); RBC 5.31 X 10*6/uL (4.40-5.60); RDW 15.2 % (11.5-14.5); WBC 7.37 X 10*3/uL (4.50-10.00)
[2020-12-03 12:07] LABS: Glucose,Whole Blood 205 mg/dL (75-99)
--- NOTE | 2020-12-03 13:03 | P.DS ---
Providers Date of admission: 12/01/20 18:03 Expected date of discharge: 12/03/20 Attending physician: Narinder Rosenberg Consults: 12/01/20 18:05 Consult Physician Routine Consulting Provider: Tyson Glaser Consult Reason/Comments: tia Do you want consulting provider notified?: Yes 12/02/20 10:04 Consult Physician Routine Consulting Provider: Darek Egan Consult Reason/Comments: polypharmacy with confusion. Do you want consulting provider notified?: Yes Primary care physician: Narinder Rosenberg Hospital Course: Final Diagnoses: Altered mental status, suspect related to acute metabolic, toxic encephalopathy, possibly medication induced. Possible underlying cognitive impairment, dementia, per hospitalist neurologist Thrombocytopenia, in a patient on immunosuppressive therapy, previously worked up by oncology, close monitoring outpatient Chronic renal failure stage III, history of renal transplant Diabetes mellitus type 2, hemoglobin A1c 6 Diabetic neuropathy Hypothyroidism CAD, history of CABG Hypertension Hyperlipidemia Chronic persistent atrial fibrillation, on Xarelto. History of slow growing prostate cancer, under surveillance with Dr. Craig History of melanoma Anxiety, depression Chronic back pain Remote history of falls, Xarelto converted to Eliquis per neurology's recommendations. Hospital course:This is a 80-year-old gentleman with past medical history of f alls , gait dysfunction, uses a walker ,atrial fibrillation, diabetes mellitus, hyperlipidemia, hypertension,CKD,renal transplant, polio, chronic back pain, parathyroid surgery, anxiety, depression and multiple other medical issues brought into the ER with complaints of altered mental status, confusion. He reports he didn't know where he was at, difficulty answering questions, difficulty following commands. Denies recent falls , trauma .Denies any syncope, seizure activity, or focal weakness. Denies chest pain, palpitations or shortness of breath. Denies nausea vomiting or diarrhea. Denies chest pain, palpitations or shortness of breath.brain CT reported no acute intracranial process, CTA reported no flow-limiting stenosis bilateral carotid bifurcations, normal [place]. Chest x-ray reported chronic interstitial lung disease. This morning patient alert and oriented 3, follows commands, recognizes PCP, Dr. Rosenberg. Able to name the cross[place] where [facility] PCP office located. Afebrile, normal WBC. Hemoglobin 15.6, platelets 50-Xarelto placed on hold, INR 1.3. Sodium 135, potassium 4.3, BUN 24, creatinine 1.22, glucose 1:30, albumin 3.3. UA negative, liriano virus not detected. Evaluated by neurology, workup completed as mentioned above and cleared for discharge. Recommending changing Xarelto to Eliquis related to less severe brain bleed, in a patient with remote history of falls. Patient was also evaluated by psychiatry for assistance modifying patient's psychiatric medications. Psychiatry recommended continue holding off Klonopin at this time may be contributing to acute episodes of confusion, and added melatonin 3 mg daily at bedtime for sleep in addition to continuing on Seroquel and Requip as previously ordered. Cleared by all consults for discharge. Platelets up to 53. Close monitoring of platelets outpatient with PCP. Alert and oriented 3, no acute distress, denies chest pain, palpitations or shortness of breath. Denies lightheadedness, dizziness or focal deficits. Patient will be discharged home today in a stable condition with guarded prognosis.Small dose of Norvasc 2.5 mg daily added to med regimen as patient has consistently been hypertensive every morning. PHYSICAL EXAMINATION: GENERAL: The patient is alert and oriented x3, no acute distress. Well developed, well nourished. Speech fluent, appropriate. HEENT: Pupils are round and equally reacting to light. EOMI. No scleral icterus. No conjunctival pallor. Normocephalic, atraumatic. No pharyngeal erythema. No thyromegaly. CARDIOVASCULAR: S1 and S2 present. No murmurs, rubs, or gallops. PULMONARY: Chest is clear to auscultation, no wheezing or crackles. ABDOMEN: Soft, nontender, nondistended, normoactive bowel sounds. No palpable organomegaly. Non-enlarged spleen. MUSCULOSKELETAL: No joint swelling or deformity. EXTREMITIES: No cyanosis, clubbing, or pedal edema. NEUROLOGICAL: Gross neurological examination did not reveal any focal deficits. SKIN: No rashes. No petechiae. Warm and dry The impression and plan of care has been dictated as directed. : I performed a history and examination of this patient, discussed the same with the dictator. I agree with the dictator's note ,documented as a scribe. Any additional findings or plans will be noted. Patient Condition at Discharge: Stable Plan - Discharge Summary Discharge Rx Participant: No New Discharge Prescriptions: New Apixaban [Eliquis] 5 mg PO BID #60 tab amLODIPine BESYLATE [Norvasc] 2.5 mg PO DAILY #30 tab Continue Finasteride [Proscar] 5 mg PO DAILY@1000 Tamsulosin HCl [Flomax] 0.4 mg PO DAILY@1000 Multivitamins, Thera [Multivitamin (formulary)] 1 tab PO DAILY@1000 Atorvastatin Calcium [Lipitor] 20 mg PO HS@2200 Vit C/E/Zn/Coppr/Lutein/Zeaxan [Preservision Areds 2 Softgel] 1 cap PO DAILY@1000 Pantoprazole [Protonix] 40 mg PO DAILY@1000 Calcium Carbonate [Tums] 1,000 mg PO DAILY@1000 Eltrombopag Olamine [Promacta] 25 mg PO DAILY@0800 Metoprolol Tartrate [Lopressor] 50 mg PO BID@1000,2200 mycophenolate mofetiL [Cellcept] 250 mg PO BID@1000,2200 predniSONE 10 mg PO DAILY@1000 Tacrolimus [Prograf] 1 mg PO DAILY@1000 QUEtiapine [SEROquel] 37.5 mg PO HS tab INSULIN LISPRO (HumaLOG) [humaLOG] 8 unit SQ BID@1230,1815 Cholecalciferol [Vitamin D3 (25 Mcg = 1000 Iu)] 75 mcg PO HS@2100 QUEtiapine [SEROquel] 12.5 mg PO DAILY@1000 Insulin Glargine/Lixisenatide [Soliqua 100 Unit-33 Mcg/ml Pen] 20 unit SQ Q24HR@1745 rOPINIRole HCL [Requip] 0.25 mg PO HS@2200 Tacrolimus [Prograf] 1.5 mg PO HS@2200 Levothyroxine Sodium [Synthroid] 75 mcg PO DAILY@1000 DULoxetine HCL [Cymbalta] 120 mg PO DAILY@1000 INSULIN LISPRO (HumaLOG) [humaLOG] See Protocol SQ TID Discontinued clonazePAM [KlonoPIN] 1 mg PO HS@2100 clonazePAM [KlonoPIN] 0.5 mg PO DAILY PRN PRN Reason: Anxiety Discharge Medication List Finasteride [Proscar] 5 mg PO DAILY@1000 02/09/17 [History] Tamsulosin HCl [Flomax] 0.4 mg PO DAILY@1000 02/09/17 [History] Multivitamins, Thera [Multivitamin (formulary)] 1 tab PO DAILY@1000 12/31/18 [History] Atorvastatin Calcium [Lipitor] 20 mg PO HS@219910/14/19 [History] Vit C/E/Zn/Coppr/Lutein/Zeaxan [Preservision Areds 2 Softgel] 1 cap PO DAILY@99912/18/19 [History] Calcium Carbonate [Tums] 1,000 mg PO DAILY@99912/28/19 [History] Pantoprazole [Protonix] 40 mg PO DAILY@99912/28/19 [History] Eltrombopag Olamine [Promacta] 25 mg PO DAILY@79902/23/20 [History] Metoprolol Tartrate [Lopressor] 50 mg PO BID@999,219903/05/20 [History] Tacrolimus [Prograf] 1 mg PO DAILY@99904/03/20 [History] mycophenolate mofetiL [Cellcept] 250 mg PO BID@1000,219904/03/20 [History] predniSONE 10 mg PO DAILY@99904/03/20 [History] QUEtiapine [SEROquel] 37.5 mg PO HS tab 04/10/20 [Rx] Cholecalciferol [Vitamin D3 (25 Mcg = 1000 Iu)] 75 mcg PO HS@209912/01/20 [History] DULoxetine HCL [Cymbalta] 120 mg PO DAILY@99912/01/20 [History] INSULIN LISPRO (HumaLOG) [humaLOG] 8 unit SQ BID@1230,1815 12/01/20 [History] INSULIN LISPRO (HumaLOG) [humaLOG] See Protocol SQ TID 12/01/20 [History] Insulin Glargine/Lixisenatide [Soliqua 100 Unit-33 Mcg/ml Pen] 20 unit SQ Q24HR@1745 12/01/20 [History] Levothyroxine Sodium [Synthroid] 75 mcg PO DAILY@99912/01/20 [History] QUEtiapine [SEROquel] 12.5 mg PO DAILY@99912/01/20 [History] Tacrolimus [Prograf] 1.5 mg PO HS@219912/01/20 [History] rOPINIRole HCL [Requip] 0.25 mg PO HS@219912/01/20 [History] Apixaban [Eliquis] 5 mg PO BID #60 tab 12/03/20 [Rx] amLODIPine BESYLATE [Norvasc] 2.5 mg PO DAILY #30 tab 12/03/20 [Rx] Follow up Appointment(s)/Referral(s): Narinder Rosenberg DO [Primary Care Provider] - 12/07/20 2:30 pm () Jayjay Jaeger DO [REFERRING] - 1 Week (Further evaluation of psychiatric med regimen. Tellyonodeborah on hold.) Dandre Thornton DO [STAFF PHYSICIAN] - 2 Weeks Ambulatory/Diagnostic Orders: Complete Blood Count w/diff [LAB.AMB] Time Frame: 3 Days, Location: None Selected Patient Instructions/Handouts: Acute Delirium (DC) Activity/Diet/Wound Care/Special Instructions: Platelests pending.[place]elly[place]odeborah on hold , to be further evaluated in clinic for ant hurt Pending final DC recommendations and clearance from neurology. Outpatient EMG to be arranged as per PCP. Hemoglobin A1c results to be faxed to PCP.
[2020-12-03] MEDS: INSULIN ASPART (NovoLOG) 100 UNIT/ML VIAL SQ SCH (13:25)
[2020-12-03 14:57] LABS: African American GFR (CKD) 66.7 (60.0-200.0); Anion Gap 10.1 mmol/L (4.00-12.00); BUN/Creat Ratio 21.67 Ratio (12.00-20.00); Calcium 8.2 mg/dL (8.7-10.3); Carbon Dioxide 24.9 mmol/L (21.6-31.8); Non-African American GFR(CKD) 57.6 (60.0-200.0); Potassium 3.8 mmol/L (3.5-5.5)
== END 2020-12-03 13:55 | disposition home or self-care (01) ==
LOC: EC 14:47 → 6NMEDSUR 18:03
PROVIDERS: ADMIT Family Medicine; ATTEND Family Medicine
DX: R41.82 Altered mental status, unspecified (principal); G92 Toxic encephalopathy; D69.59 Other secondary thrombocytopenia; E11.40 Type 2 diabetes mellitus with diabetic neuropathy, unspecified; E11.22 Type 2 diabetes mellitus with diabetic chronic kidney disease; N18.30 Chronic kidney disease, stage 3 unspecified; Z94.0 Kidney transplant status; E89.0 Postprocedural hypothyroidism; I25.10 Atherosclerotic heart disease of native coronary artery without angina pectoris; Z95.1 Presence of aortocoronary bypass graft; E78.5 Hyperlipidemia, unspecified; I12.9 Hypertensive chronic kidney disease with stage 1 through stage 4 chronic kidney disease, or unspecified chronic kidney disease; I48.19 Other persistent atrial fibrillation; Z20.822 Contact with and (suspected) exposure to COVID-19; Z85.820 Personal history of malignant melanoma of skin; Z85.46 Personal history of malignant neoplasm of prostate; F32.9 Major depressive disorder, single episode, unspecified; F41.9 Anxiety disorder, unspecified; G89.29 Other chronic pain; M54.9 Dorsalgia, unspecified; Z91.81 History of falling; Z86.12 Personal history of poliomyelitis; J84.9 Interstitial pulmonary disease, unspecified; H91.90 Unspecified hearing loss, unspecified ear; Z79.899 Other long term (current) drug therapy; Z79.01 Long term (current) use of anticoagulants; Z79.4 Long term (current) use of insulin; Z79.890 Hormone replacement therapy; Z88.5 Allergy status to narcotic agent; R29.6 Repeated falls; Z82.49 Family history of ischemic heart disease and other diseases of the circulatory system; Z81.8 Family history of other mental and behavioral disorders; Z80.8 Family history of malignant neoplasm of other organs or systems
CPT/HCPCS: 99285; 36415; 95816; 93005; 93306; 97162; 97530; 97535; 97166; 84207; 80053; 80048; 84443; 82607; 82746; 84484; 85025 ×2; 85610; 85730; 81003; 83036; 87635; 71046; 70496; 70450; 70498; G0378 ×3; S0138 ×2; J7517 ×3; J7507 ×2; Q9967

== ENCOUNTER → 2020-12-23 | Outpatient (CLI) | payer MEDICARE ==
[2020-12-23 13:43] LABS: Creatinine,Urine Random 142.7 mg/dL; Protein/Creatinine Ratio,Urine 0.196
[2020-12-23 19:55] LABS: Basophils # (A) 0.05 X 10*3/uL (0.00-0.10); Basophils % (A) 0.5 %; Eosinophils # (A) 0.06 X 10*3/uL (0.04-0.35); Eosinophils % (A) 0.6 %; HCT 51.8 % (39.6-50.0); HGB 16.3 g/dL (13.0-17.0); Lymphocytes # (A) 0.72 X 10*3/uL (0.90-5.00); Lymphocytes % (A) 6.7 %; MCH 28.4 pg (27.0-32.0); MCHC 31.5 g/dL (32.0-37.0); MCV 90.2 fL (80.0-97.0); Mean Platelet Volume 10.8 fL (9.5-12.2); Monocytes # (A) 0.79 X 10*3/uL (0.20-1.00); Monocytes % (A) 7.4 %; Neutrophils % (A) 83.3 %; Platelet Count 120 X 10*3/uL (140-440); RBC 5.74 X 10*6/uL (4.40-5.60); RDW 15.5 % (11.5-14.5); WBC 10.68 X 10*3/uL (4.50-10.00)
[2020-12-24 16:04] LABS: % Iron Saturation 29.07 (15.00-50.00); African American GFR (CKD) 55.4 (60.0-200.0); Albumin 3.9 g/dL (3.80-4.90); Albumin/Globulin Ratio 2.6 (1.60-3.17); Anion Gap 15.2 mmol/L (4.00-12.00); BUN/Creat Ratio 22.86 Ratio (12.00-20.00); Calcium 9.8 mg/dL (8.7-10.3); Carbon Dioxide 18.8 mmol/L (21.6-31.8); Globulin 1.5 g/dL (1.6-3.3); Non-African American GFR(CKD) 47.8 (60.0-200.0); Potassium 5.4 mmol/L (3.5-5.5); Total Protein 5.4 g/dL (6.2-8.2)
[2020-12-24 16:05] LABS: Magnesium 1.4 mg/dL (1.5-2.4); Phosphorus 3.6 mg/dL (2.4-5.1); Uric Acid 7.1 mg/dL (3.7-8.7)
[2020-12-24 16:12] LABS: Ferritin 52.9 ng/mL (22.0-322.0)
== END | disposition home or self-care (01) ==
LOC: LABWHC1 10:12
PROVIDERS: ATTEND Nurse Practitioner Family
DX: N18.4 Chronic kidney disease, stage 4 (severe) (principal); D64.9 Anemia, unspecified; R80.9 Proteinuria, unspecified; M10.9 Gout, unspecified
CPT/HCPCS: 36415; 80053; 80197; 82570; 82728; 83540; 83550; 83735; 84100; 84156; 84550; 85025

== ENCOUNTER → 2021-02-10 | Outpatient (CLI) | payer MEDICARE ==
[2021-02-10 20:34] LABS: Hemoglobin A1C 6.3 % (4.0-6.0)
[2021-02-11 03:37] LABS: Chol/HDL Ratio 3.02; LDL Cholesterol,Calculated 77.4 mg/dL (0.0-131.0); VLDL Calculation 23.6 mg/dL (5.00-40.00)
[2021-02-11 03:45] LABS: T4, Free (Free Thyroxine) 1.2 ng/dL (0.80-1.80)
== END | disposition home or self-care (01) ==
LOC: LABWHC1 09:54
PROVIDERS: ATTEND Internal Medicine
DX: E03.9 Hypothyroidism, unspecified (principal); E11.9 Type 2 diabetes mellitus without complications
CPT/HCPCS: 36415; 80061; 82043; 82570; 83036; 84439; 84443

== ENCOUNTER 2021-04-26 13:20 | Emergency (ER) | payer MEDICARE ==
[2021-04-26 13:32] VITALS: RESP 18
[2021-04-26] MEDS ORDERED: HYDROmorphone 0.5 MG/0.5 ML SYRINGE IVP STA (14:18)
--- NOTE | 2021-04-26 14:22 | ED ---
General Adult HPI - General Source: patient, EMS, RN notes reviewed, old records reviewed Mode of arrival: EMS Limitations: no limitations <Jesus Mtz - Last Filed: 04/26/21 15:06> <Virgil Jaeger - Last Filed: 04/27/21 01:13> - General Chief complaint: Extremity Injury, Lower Stated complaint: Pelvic Pain,Fall Time Seen by Provider: 04/26/21 13:35 - History of Present Illness Initial comments: This is a 80-year-old male presents emergency Department complaining of left groin pain. Though the triage note states the patient fell patient denies this. Patient also states he has not followed up with a physician about this only got pain medicines from his doctor but he has not yet been seen. Patient states the pain started about 5 days ago and it has gotten severe. Patient states the pain initially started in the groin on both sides and now is only in the left side. Patient does think that it is worse with movement when it occurs and worse with walking. Patient denies any dysuria hematuria. Patient denies any abdominal pain. Patient states he's got chronic back pain. Patient states he has not fallen but the thinks that he did.. Patient gives a very convoluted story and is hard to get direct answers. (Jesus Mtz) - Related Data Home Medications Medication Instructions Recorded Confirmed Finasteride [Proscar] 5 mg PO DAILY@99902/09/17 12/01/20 Tamsulosin HCl [Flomax] 0.4 mg PO DAILY@99902/09/17 12/01/20 Multivitamins, Thera [Multivitamin 1 tab PO DAILY@99912/31/18 12/01/20 (formulary)] Atorvastatin Calcium [Lipitor] 20 mg PO HS@2200 10/14/19 12/01/20 Vit C/E/Zn/Coppr/Lutein/Zeaxan 1 cap PO DAILY@99912/18/19 12/01/20 [Preservision Areds 2 Softgel] Calcium Carbonate [Tums] 1,000 mg PO DAILY@99912/28/19 12/01/20 Pantoprazole [Protonix] 40 mg PO DAILY@99912/28/19 12/01/20 Eltrombopag Olamine [Promacta] 25 mg PO DAILY@0800 02/23/20 12/01/20 Metoprolol Tartrate [Lopressor] 50 mg PO BID@1000,219903/05/20 12/01/20 Tacrolimus [Prograf] 1 mg PO DAILY@1000 04/03/20 12/01/20 mycophenolate mofetiL [Cellcept] 250 mg PO BID@1000,22004/03/20 12/01/20 predniSONE 10 mg PO DAILY@1000 04/03/20 12/01/20 Cholecalciferol [Vitamin D3 (25 75 mcg PO HS@2100 12/01/20 12/01/20 Mcg = 1000 Iu)] DULoxetine HCL [Cymbalta] 120 mg PO DAILY@1000 12/01/20 12/01/20 INSULIN LISPRO (HumaLOG) [humaLOG] 8 unit SQ BID@1230,18112/01/20 12/01/20 INSULIN LISPRO (HumaLOG) [humaLOG] See Protocol SQ TID 12/01/20 12/01/20 Insulin Glargine/Lixisenatide 20 unit SQ Q24HR@1745 12/01/20 12/01/20 [Soliqua 100 Unit-33 Mcg/ml Pen] Levothyroxine Sodium [Synthroid] 75 mcg PO DAILY@1000 12/01/20 12/01/20 QUEtiapine [SEROquel] 12.5 mg PO DAILY@99912/01/20 12/01/20 Tacrolimus [Prograf] 1.5 mg PO HS@219912/01/20 12/01/20 rOPINIRole HCL [Requip] 0.25 mg PO HS@219912/01/20 12/01/20 Previous Rx's Medication Instructions Recorded QUEtiapine [SEROquel] 37.5 mg PO HS tab 04/10/20 Apixaban [Eliquis] 5 mg PO BID #60 tab 12/03/20 amLODIPine BESYLATE [Norvasc] 2.5 mg PO DAILY #30 tab 12/03/20 Cyclobenzaprine [Flexeril] 5 mg PO TID PRN 7 Days #21 tablet 04/26/21 Allergies Allergy/AdvReac Type Severity Reaction Status Date / Time morphine Allergy Itching Verified 04/26/21 18:09 Review of Systems ROS Other: All systems not noted in ROS Statement are negative. <SmithJesus - Last Filed: 04/26/21 15:06> ROS Other: All systems not noted in ROS Statement are negative. <Virgil Jaeger - Last Filed: 04/27/21 01:13> ROS Statement: Those systems with pertinent positive or pertinent negative responses have been documented in the HPI. 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." Hard of hearing, LOW PLATELETS, History of Any Multi-Drug Resistant Organisms: None Reported Past Surgical History: Unable to Obtain, Orthopedic Surgery Additional Past Surgical History / Comment(s): kidney transplant, parathyroid surgery, knee surgery, pericardiocentesis Past Anesthesia/Blood Transfusion Reactions: No Reported Reaction Past Psychological History: Anxiety, Depression Smoking Status: Never smoker Past Alcohol Use History: Rare Past Drug Use History: None Reported - Past Family History Father Family Medical History: Deep Vein Thrombosis (DVT) Son(s) Family Medical History: Cancer Additional Family Medical History / Comment(s): Skin cancer. Mother Family Medical History: No Reported History Additional Family Medical History / Comment(s): Mother was healthy <MtzJesus - Last Filed: 04/26/21 15:06> General Exam Limitations: no limitations <Jesus Mtz - Last Filed: 04/26/21 15:06> <Virgil Jaeger - Last Filed: 04/27/21 01:13> - General Exam Comments Initial Comments: GENERAL: Patient is well-developed and well-nourished. Patient is nontoxic and well- hydrated and is in mild distress. ENT: Neck is soft and supple. No significant lymphadenopathy is noted. Oropharynx is clear. Moist mucous membranes. Neck has full range of motion without eliciting any pain. There is no thyroid enlargement and no masses were felt. EYES: The sclera were anicteric and conjunctiva were pink and moist. Extraocular mo vements were intact and pupils were equal round and reactive to light. Eyelids were unremarkable. PULMONARY: Unlabored respirations. Good breath sounds bilaterally. No audible rales rhonchi or wheezing was noted. CARDIOVASCULAR: There is a regular rate and rhythm without any murmurs gallops or rub ABDOMEN: Soft and nontender with normal bowel sounds. SKIN: Skin is clear with no lesions or rashes and otherwise unremarkable. NEUROLOGIC: Patient is alert and oriented x3. Cranial nerves II through XII are grossly intact. Motor and sensory are also intact. Normal speech, volume and content. Symmetrical smile. MUSCULOSKELETAL: Normal extremities with adequate strength and full range of motion. No lower extremity swelling or edema. No calf tenderness. I could find no area of tend erness in the groin no lumps or bumps in groin. Patient had full range of motion of legs actively and passively. I could not elicit any back pain on palpation. LYMPHATICS: No significant lymphadenopathy is noted PSYCHIATRIC: Normal psychiatric evaluation. (Jesus Mtz) General: Appears in no acute distress. HEAD: Normal with no signs of head trauma. EYES: PERRLA, EOMI, conjunctiva normal, no discharge. ENT: Hearing grossly intact, normal oropharynx. RESPIRATORY: Clear breath sounds bilaterally. No wheezes, rales, or rhonchi. C/V: Regular rate and rhythm. S1 and S2 auscultated, no edema, peripheral pulses 2+ and intact throughout ABD: Abd is soft, nontender, nondistended. There is no guarding. No peritoneal signs. No obvious hernia palpated. EXT: Normal range of motion, no obvious deformity SKIN: No rashes or lesions observed on exposed skin. NEURO: Alert and oriented 4. No focal deficits. (Virgil Jaeger) Course Vital Signs 04/26/21 04/26/21 13:30 18:13 Temperature 97.6 F 98 F Pulse Rate 67 91 Respiratory 18 18 Rate Blood Pressure 160/76 125/87 O2 Sat by Pulse 99 98 Oximetry Medical Decision Making - Lab Data Result diagrams: 04/26/21 14:44 <Jesus Mtz - Last Filed: 04/26/21 15:06> - Lab Data Result diagrams: 04/26/21 14:44 04/26/21 14:44 <Virgil Jaeger - Last Filed: 04/27/21 01:13> - Medical Decision Making Dr. Jaeger will be taking over the care of this patient at 3 PM (Jesus Mtz) Patient is signed out to me pending results of imaging and laboratory studies. He presents emergency Department complaining of was possibly acute left back and left hip pain, however he will state that he has experienced this before. He is requesting pain medications to go home with. Patient was signed out to me by the prior physician. Laboratory studies were remarkable for a hypoglycemia 58 which improved with food. Renal function is within normal limits. He is still making urine. Urinalysis took some time to obtain, however was negative for acute infection. There is no hematuria. Patient's CT abdomen and pelvis revealed no acute findings, however there does appear to be an extremely small left inguinal hernia. On reevaluation, patient's pain is improved. He is requesting pain medications for when the pain gets bad at home, and I state he needs to follow up with his doctor on an outpatient basis for her. We discussed at length regarding this and he was eventually in agreement with this plan. He will be given Flexeril to go home with. Patient was therefore discharged home in good condition with his medication. He will follow up with his typical doctor, and he was asking for a orthopedic doctor to follow up with which will be provided to him. (Virgil Jaeger) - Lab Data Lab Results 04/26/21 04/26/21 04/26/21 Range/Units 14:44 14:44 14:44 WBC 9.6 (3.8-10.6) k/uL RBC 5.34 (4.30-5.90) m/uL Hgb 16.4 (13.0-17.5) gm/dL Hct 46.7 (39.0-53.0) % MCV 87.5 (80.0-100.0) fL MCH 30.8 (25.0-35.0) pg MCHC 35.2 (31.0-37.0) g/dL RDW 15.3 (11.5-15.5) % Plt Count 119 L (150-450) k/uL MPV 9.5 Neutrophils % 76 % Lymphocytes % 13 % Monocytes % 6 % Eosinophils % 2 % Basophils % 1 % Neutrophils # 7.3 (1.3-7.7) k/uL Lymphocytes # 1.2 (1.0-4.8) k/uL Monocytes # 0.6 (0-1.0) k/uL Eosinophils # 0.2 (0-0.7) k/uL Basophils # 0.1 (0-0.2) k/uL Hyperchromasia Slight Sodium 135 L (137-145) mmol/L Potassium 3.7 (3.5-5.1) mmol/L Chloride 104 (98-107) mmol/L Carbon Dioxide 26 (22-30) mmol/L Anion Gap 5 mmol/L BUN 15 (9-20) mg/dL Creatinine 1.01 (0.66-1.25) mg/dL Est GFR (CKD-EPI)AfAm 82 (>60 ml/min/1.73 sqM) Est GFR (CKD-EPI)NonAf 71 (>60 ml/min/1.73 sqM) Glucose 58 L (74-99) mg/dL POC Glucose (mg/dL) (75-99) mg/dL POC Glu [employer] ID Calcium 8.7 (8.4-10.2) mg/dL Total Bilirubin 1.0 (0.2-1.3) mg/dL AST 27 (17-59) U/L ALT 20 (4-49) U/L Alkaline Phosphatase 52 (38-126) U/L Total Protein 5.5 L (6.3-8.2) g/dL Albumin 3.4 L (3.5-5.0) g/dL Urine Color Yellow Urine Appearance Clear (Clear) Urine pH 6.5 (5.0-8.0) Ur Specific [place] 1.013 (1.001-1.035) Urine Protein Trace H (Negative) Urine Glucose (UA) Negative (Negative) Urine Ketones Negative (Negative) Urine Blood Negative (Negative) Urine Nitrite Negative (Negative) Urine Bilirubin Negative (Negative) Urine Urobilinogen <2.0 (<2.0) mg/dL Ur Leukocyte Esterase Negative (Negative) 04/26/21 Range/Units 17:08 WBC (3.8-10.6) k/uL RBC (4.30-5.90) m/uL Hgb (13.0-17.5) gm/dL Hct (39.0-53.0) % MCV (80.0-100.0) fL MCH (25.0-35.0) pg MCHC (31.0-37.0) g/dL RDW (11.5-15.5) % Plt Count (150-450) k/uL MPV Neutrophils % % Lymphocytes % % Monocytes % % Eosinophils % % Basophils % % Neutrophils # (1.3-7.7) k/uL Lymphocytes # (1.0-4.8) k/uL Monocytes # (0-1.0) k/uL Eosinophils # (0-0.7) k/uL Basophils # (0-0.2) k/uL Hyperchromasia Sodium (137-145) mmol/L Potassium (3.5-5.1) mmol/L Chloride (98-107) mmol/L Carbon Dioxide (22-30) mmol/L Anion Gap mmol/L BUN (9-20) mg/dL Creatinine (0.66-1.25) mg/dL Est GFR (CKD-EPI)AfAm (>60 ml/min/1.73 sqM) Est GFR (CKD-EPI)NonAf (>60 ml/min/1.73 sqM) Glucose (74-99) mg/dL POC Glucose (mg/dL) 80 (75-99) mg/dL POC Glu [employer]ist ID Richy Banks Calcium (8.4-10.2) mg/dL Total Bilirubin (0.2-1.3) mg/dL AST (17-59) U/L ALT (4-49) U/L Alkaline Phosphatase (38-126) U/L Total Protein (6.3-8.2) g/dL Albumin (3.5-5.0) g/dL Urine Color Urine Appearance (Clear) Urine pH (5.0-8.0) Ur Specific [place] (1.001-1.035) Urine Protein (Negative) Urine Glucose (UA) (Negative) Urine Ketones (Negative) Urine Blood (Negative) Urine Nitrite (Negative) Urine Bilirubin (Negative) Urine Urobilinogen (<2.0) mg/dL Ur Leukocyte Esterase (Negative) Disposition <Jesus Mtz - Last Filed: 04/26/21 15:06> Is patient prescribed a controlled substance at d/c from ED?: No <Virgil Jaeger - Last Filed: 04/27/21 01:13> Clinical Impression: Abdominal pain of unknown cause, Chronic pain Disposition: HOME SELF-CARE Condition: Fair Instructions (If sedation given, give patient instructions): Abdominal Pain (ED) Prescriptions: Cyclobenzaprine [Flexeril] 5 mg PO TID PRN 7 Days #21 tablet PRN Reason: Pain Referrals: Melba Talley DO [Doctor of Osteopathic Medicine] - 1-2 days None,Stated [Primary Care Provider] - 1-2 days Jeanne Camacho DO [Doctor of Osteopathic Medicine] - 1-2 days
[2021-04-26 15:02] LABS: Basophils # (A) 0.1 k/uL (0-0.2); Basophils % (A) 1 %; Eosinophils # (A) 0.2 k/uL (0-0.7); Eosinophils % (A) 2 %; HCT 46.7 % (39.0-53.0); HGB 16.4 gm/dL (13.0-17.5); Hyperchromasia Slight; Lymphocytes # (A) 1.2 k/uL (1.0-4.8); Lymphocytes % (A) 13 %; MCH 30.8 pg (25.0-35.0); MCHC 35.2 g/dL (31.0-37.0); MCV 87.5 fL (80.0-100.0); Mean Platelet Volume 9.5; Monocytes # (A) 0.6 k/uL (0-1.0); Monocytes % (A) 6 %; Neutrophils # (A) 7.3 k/uL (1.3-7.7); Neutrophils % (A) 76 %; Platelet Count 119 k/uL (150-450); RBC 5.34 m/uL (4.30-5.90); RDW 15.3 % (11.5-15.5); WBC 9.6 k/uL (3.8-10.6)
[2021-04-26 15:10] LABS: Albumin 3.4 g/dL (3.5-5.0); Calcium 8.7 mg/dL (8.4-10.2); Potassium 3.7 mmol/L (3.5-5.1); Total Protein 5.5 g/dL (6.3-8.2)
--- NOTE | 2021-04-26 15:56 | CT ---
EXAMINATION TYPE: CT abdomen pelvis wo con DATE OF EXAM: 04/26/2021 HISTORY: LLQ pain CT DLP: 610.4 mGycm. Automated Exposure Control for Dose Reduction was Utilized. TECHNIQUE: CT scan of the abdomen and pelvis is performed without oral or IV contrast. COMPARISON: NONE FINDINGS: Within the limitations of a non-contrast study, the following observations are made. LUNG BASES: No significant abnormality is appreciated. LIVER/GB: No significant abnormality is appreciated. PANCREAS: No significant abnormality is seen. SPLEEN: No significant abnormality is seen. ADRENALS: No significant abnormality is seen. KIDNEYS: Cortical thinning and diminished size to both kidneys consistent with end-stage renal diseas e. Left pelvic renal transplant has slight fullness of the pelvis without calyceal dilatation. Size i s within normal limits with satisfactory cortical prominence. Hypodense subcentimeter lesions in the left mid cortex near axial image 100 are too small to further characterize presumed benign. BOWEL: No abnormal small or large bowel dilatation. Slightly redundant sigmoid colon. No significant diverticulosis or CT evidence for acute diverticulitis. Normal appearing appendix from base of cecum medially. GENITAL ORGANS: No gross abnormality seen. LYMPH NODES: No greater than 1cm abdominal or pelvic lymph nodes are appreciated. OSSEOUS STRUCTURES: Facet arthropathy lower lumbar levels. OTHER: There is a spigelian type hernia anterior left lower quadrant containing fat axial image 94 fo r reference. Some surgical coils near this level is noted. Small fat-containing left inguinal hernia. Moderate calcified plaque infrarenal abdominal aorta extends into branch vessels. IMPRESSION: No acute findings clearly identified.
[2021-04-26 17:09] LABS: Glucose,Whole Blood 80 mg/dL (75-99)
[2021-04-26 17:45] LABS: Appearance,Urine Clear (Clear); Bilirubin,Urine Negative (Negative); Blood,Urine Negative (Negative); Color,Urine Yellow; Glucose,Urine (UA) Negative (Negative); Ketones,Urine Negative (Negative); Leukocyte Esterase,Urine Negative (Negative); Nitrite,Urine Negative (Negative); PH, Urine 6.5 (5.0-8.0); Protein,Urine Trace (Negative); Specific Gravity,Urine 1.013 (1.001-1.035); Urobilinogen,Urine <2.0 mg/dL (<2.0)
[2021-04-26 18:14] VITALS: BP 125/87; PULSE 91; TEMP 98
[2021-04-26] MEDS ORDERED: methocarbamoL 750 MG TAB PO STA (18:45)
[2021-04-26] MEDS ORDERED: CYCLOBENZAPRINE 10 MG TAB PO STA (19:04)
== END 2021-04-26 19:25 | disposition home or self-care (01) ==
LOC: EC 13:20
DX: G89.29 Other chronic pain (principal); R10.32 Left lower quadrant pain; E11.9 Type 2 diabetes mellitus without complications; I10 Essential (primary) hypertension; I48.91 Unspecified atrial fibrillation; E78.5 Hyperlipidemia, unspecified; F32.9 Major depressive disorder, single episode, unspecified; F41.9 Anxiety disorder, unspecified; Z79.01 Long term (current) use of anticoagulants; Z79.4 Long term (current) use of insulin; Z79.52 Long term (current) use of systemic steroids; Z79.890 Hormone replacement therapy; Z79.899 Other long term (current) drug therapy; Z85.46 Personal history of malignant neoplasm of prostate; Z94.0 Kidney transplant status
CPT/HCPCS: 36415; 80053; 85025; 81003; 74176; 99284; 96374; J1170

== ENCOUNTER → 2021-05-27 | Outpatient (CLI) | payer MEDICARE ==
--- NOTE | 2021-05-27 14:19 | MR ---
EXAMINATION TYPE: MR hip LT wo con DATE OF EXAM: 05/27/2021 COMPARISON: Pelvic and left hip x-ray May 07, 2021. CT abdomen and pelvis April 26, 2021 HISTORY: Extreme Left Hip Pain, limited movement made worse by a fall 3 weeks ago Standard multiplanar, multisequence MRI departmental protocol Multiplanar, multisequence images of the pelvis were acquired without contrast. Diffusion weighted im aging was performed. FINDINGS: Symmetric mild to moderate axial joint space loss in both hips remains present. Symmetric m ild bilateral acetabular spurring redemonstrated. Femoral head shapes are maintained bilaterally. No suspicious increased T2 signal to suggest edema identified. No suspicious serpiginous low T1 signal t o suggest occult fracture. No suspicious fluid signal at level of the greater trochanters bilaterally . Small fat-containing left inguinal hernia redemonstrated. No groin adenopathy. Muscle bulk is symme tric with mild generalized atrophy bilaterally. There is some edematous change surrounding medial mus cles seen best near axial image 26 on the left side versus opposite right side involving obturator in ternus muscle. Findings most prominent near the deeper pubic symphysis insertion. Prostate gland is heterogeneous but upper limits of normal in size. No suspicious nodule. There is an terior left pelvic renal transplant redemonstrated. Appears within normal limits. No concerning pelvi c fluid collection or adenopathy. Visualized bowel is nondilated. IMPRESSION: Edematous change consistent with muscular contusion injury left obturator internus muscle
== END | disposition home or self-care (01) ==
LOC: RADMRIMAIN 12:45
PROVIDERS: ATTEND Orthopaedic Surgery
DX: R60.0 Localized edema (principal)

== ENCOUNTER → 2021-07-07 | Outpatient (CLI) | payer MEDICARE ==
--- NOTE | 2021-07-07 14:24 | MR ---
EXAMINATION TYPE: MR lumbar spine wo con DATE OF EXAM: 07/07/2021 COMPARISON: CT 04/26/2021, plain film dated 01/14/2015 HISTORY: Low Back Pain into buttocks/left leg TECHNIQUE: Multiplanar, multisequence images of the lumbar spine were acquired without IV contrast. L1-L2: Normal disc appearance without desiccation. No herniation, protrusion or disc bulging. No ca nal stenosis is present. Foramina are patent bilaterally. L2-L3: Posterior disc bulge causes mild anterior mass effect on the thecal sac somewhat eccentric tow ards the left. Circumferential extension of disc material towards the left encroaches minimally on th e inferior aspect of the foramen. No significant spinal stenosis. L3-L4: There is severe spinal stenosis, posterior disc bulge is present, there is hypertrophy ligamen belle flavum, circumferential extension of disc material results in foraminal encroachment greater on t he left than on the right. Discogenic material extends posterior to the L3 vertebral body in the left paracentral location causing some anterolateral mass effect on the thecal sac extending from the dis c space at L3-4, sagittal image #9, axial image 18 L4-L5: Posterior broad-based disc bulge causes anterior mass effect on the thecal sac. Circumferentia l extension endplate disc complex causes some right-sided foraminal encroachment. No significant spin al stenosis. There is facet arthropathy with hypertrophy ligamentum flavum causing some posterior lat eral mass effect on the thecal sac. L5-S1: There is a posterior disc bulge present which may contact the proximal S1 nerve roots. Circumf erential extension of endplate disc complex encroaches upon the foramina greater on the right possibl y contributed by the curvature. No significant spinal stenosis. Facet arthropathy contributes to caus e some lateral recess stenosis on the right Lumbar segments are intact. No paraspinal masses are identified. Conus medullaris has a normal appe arance. There is a spinal curvature. Lumbar vertebral bodies show preserved height and alignment. The re is multilevel spondylosis with endplate discogenic marrow signal change. Loss of disc signal is pr esent at intervertebral levels L2-3, L3-4, L4-5, L5-S1, there is loss of disc height greatest at L3-4 and L4-5. There is loss of volume in the renal parenchymal consistent with chronic medical renal dis ease IMPRESSION: Spinal stenosis is significant at L3-4, possibly sequestered fragment. Multilevel degenerative disc d isease, foraminal encroachment as described. Facet arthropathy.
== END | disposition home or self-care (01) ==
LOC: RADMRIMAIN 09:59
PROVIDERS: ATTEND Orthopaedic Surgery
DX: M48.061 Spinal stenosis, lumbar region without neurogenic claudication (principal); M47.816 Spondylosis without myelopathy or radiculopathy, lumbar region; M51.36 Other intervertebral disc degeneration, lumbar region
CPT/HCPCS: 72148

== ENCOUNTER → 2021-08-30 | Outpatient (CLI) | payer MEDICARE | END | disposition home or self-care (01) | LOC: LABPAT 12:06 | PROVIDERS: ATTEND Orthopaedic Surgery | DX: Z01.818 Encounter for other preprocedural examination (principal); Z22.322 Carrier or suspected carrier of Methicillin resistant Staphylococcus aureus; I44.0 Atrioventricular block, first degree; M48.062 Spinal stenosis, lumbar region with neurogenic claudication; R94.31 Abnormal electrocardiogram [ECG] [EKG] | CPT/HCPCS: 87070; 93005 ==

== ENCOUNTER → 2021-08-30 | Outpatient (CLI) | payer MEDICARE ==
--- NOTE | 2021-08-30 15:36 | US ---
EXAMINATION TYPE: US renal transplant w dop DATE OF EXAM: 08/30/2021 COMPARISON: 03/06/2020 CLINICAL HISTORY: 80-year-old male N18.31 CHR KIDNEY DISEASE. TECHNIQUE: Grayscale on [place] kidneys and Doppler duplex and Grayscale imaging of the transplanted k idney. FINDINGS: EXAM MEASUREMENTS: [facility] [place] Right Kidney: 7.1 x 3.4 x 3.9cm [facility] [place] Left Kidney: 8.5 x 4.6 x 4.6cm Transplant Kidney: 11. 0 x 3.5 x 6.1cm (versus 9.6 cm on 03/06/2020) Location of transplanted kidney: Left lower quadrant ANATOMY: [facility] [place] Right Kidney: atrophied [facility] [place] Left Kidney: atrophied Left lower quadrant transplant Kidney: Unchanged mild pelvicaliectasis/hydronephrosis. Benign cortica l cyst measuring 1.4 x 0.9 x 1.1 cm. Resistive index 0.71 (normal <0.8). This is in comparison to 0.7 4 on 03/06/2020. Patent transplant renal artery and vein with satisfactory waveforms. No parvus tardus. No arterial fl ow reversal. Bladder: Underdistention limits its evaluation. IMPRESSION: 1. Left lower quadrant transplant kidney shows similar mild pelvicaliectasis/hydronephrosis as compar ed to the 2019 exam. Clinically correlate. 2. Overall transplant kidney size size of 11.0 cm versus 9.6 cm, previously. 3. RI measured at 0.71 (versus 0.74, previously). 4. Atrophic [place] kidneys.
== END | disposition home or self-care (01) ==
LOC: RADUSWWP 12:01
PROVIDERS: ATTEND Internal Medicine Nephrology
DX: N13.30 Unspecified hydronephrosis (principal); N26.1 Atrophy of kidney (terminal); Z94.0 Kidney transplant status
CPT/HCPCS: 76776

== ENCOUNTER 2021-09-07 07:30 | Inpatient (IN) | payer MEDICARE ==
[2021-09-02 10:52] VITALS: BMI 28.1
[2021-09-20] MEDS ORDERED: DEXAMETHASONE SOD PHOSPHATE 4 MG/ML 1 ML VIAL IV ONE (17:45)
--- NOTE | 2021-09-20 18:00 | P.HPOR ---
History of Present Illness H&P Date: 08/30/21 Chief Complaint: Low back pain, LE weakness Date of :[birth year] Age: 80 year Height: 5'9" Weight: 185lbs BMI: 28.13 kg/m2 Occupation: Retired VAS: 2 CHIEF COMPLAINT: Low back pain HISTORY: Xrays No new xrays taken in office Trauma or injury No Work-Related No Pain description sharp. Location posterior diffuse Activity Modification yes Hand Dominance right TREATMENTS COMPLETED: 6 weeks of PT completed? Yes, with no improvements. Physician directed home exercise completed? Yes, without improvements. Medications Yes, Gabapentin and Tylenol without improvements. Patient is not taking any anticoagulants Alternative interventions Chiropractic?: No Brace: No Injections No RFA: No SUBJECTIVE: Patient presents to the office for e pre-op review of the planned L3-L5 PLIF. Since the time of the last appointment the patient reports that his symptoms have not changed notably. Overall he reports that he has failed to improve with all conservative treatments trialed thus far. He reports continued disability and cannot complete most of his daily activities due to the severity of his symptoms. All questions and concerns are addressed and the patient is ready to proceed with the planned procedure. Otherwise he continues to deny any bladder or bowel retention/incontinence, no perineal numbness/tingling, and ambulates without the use of any aids. HPI: Patient last presented to the office on 07/28/2021 to discuss surgical intervention in the form of a L3-L5 PLIF following several televisits. Since the time of the last appointment he notes that his symptoms have continued to persist, noting no improvements. Additionally he notes that he has remained non- ambulatory since the last appointment, overall noting no changes in symptoms since the time we last spoke. All questions and concerns about the proposed L3- L5 PLIF were discussed and the patient expressed understanding. We will plan on proceeding with the surgery. Patient continues to deny any bladder or bowel issues, no perineal numbness/tingling, and ambulates without the use of any aides. Patient last presented via televisit on 07/21/2021 to review the results of his MRI. Since the time of the last appointment the patient notes that he did sustain another fall from standing. He feels that the cause of his fall was due to bilateral lower extremity weakness. Patient did go to the ER where he had "leanne placed" but denies any acute injury from the fall. Overall he notes that his symptom have continued to give him significant issues and are impeding his daily functionality. Patient reports that his neurogenic claudicant symptoms are giving him significant issues. As for treatments he has been doing home PT with mild improvements to his lower extremity strength. Otherwise he denies any bladder or bowel issues, no perineal numbness/tingling, and ambulates with the use of a walker for stability. Patient last presented via televisit on 06/07/2021 to discuss his progress. At that time he reported pain with standing and ambulation on the posterior side of bilateral lower extremities. He notes that this is secondary to a recent fall, where he slipped and fell in the bathroom 2 weeks ago, landing on the right side. Since this recent injury he has noticed a sharp increase in pain about the low back and left hip. He presented to the hospital regarding this where he did have an MRI of the left hip completed on 05/27/2021. Since the fall he notes an inability to complete many of his daily functions secondary to the pain. Patient notes that he has been taking Gabapentin 300mg and Flexeril 5mg for pain management with mild improvements to his symptoms. Otherwise he denies any bladder or bowel issues, no perineal numbness/tingling, and is ambulating with the use of a walker, as he reported over the phone. Patient was last evaluated on 05/07/2021 with complaints of left hip pain and left lower back pain. The patient states that he was attempting to cross his leg when he felt a sharp pain within his back and his hip and he has been unable to ambulate ever since this. The patient did go to the emergency department where a computed tomography scan of his back was performed. They also did plain films of his hip. At this time there was no evidence of fracture. He does have evidence of spondylosis throughout the lumbar spine. There is no fracture. He was given medications and sent home. Since then he has been unable to ambulate secondary to the pain that he states is in his hip and his groin. It seems to go down the front of his leg into his knee but does not pass his knee at this time. He denies any bowel or bladder issues denies any perineal numbness or tingling. The patients' past social, medical, family, surgical history, as well as review of systems, have been reviewed. Please refer to the Neurosurgery History and Physical form that has been scanned in to our electronic medical record system. 14 points review of systems completed and as stated in HPI, all other systems reviewed are negative. Review of Systems 14 points review of systems completed and as stated in HPI, all other systems reviewed are negative. Past Medical History Past Medical History: Atrial Fibrillation, Diabetes Mellitus, Hearing Disorder / Deafness, Hyperlipidemia, Hypertension, Renal Disease, Thyroid Disorder Additional Past Medical History / Comment(s): polio at age 6, back pain-spinal stenosis, Melamoma taken off of ear, "slow growing cancer of prostate, being watched by Dr Dasilva." Hard of hearing, LOW PLATELETS, restless legs, hx gout, had infection after kidney transplant-not sure what History of Any Multi-Drug Resistant Organisms: None Reported Past Surgical History: Hernia Repair, Orthopedic Surgery, Tonsillectomy Additional Past Surgical History / Comment(s): leftkidney transplant 2002, parathyroid surgery, arthroscopy knee surgery, pericardiocentesis, cancer removed from ear, Past Anesthesia/Blood Transfusion Reactions: No Reported Reaction Past Psychological History: Anxiety, Depression Additional Psychological History / Comment(s): Pt resides with spouse. He uses a walker. His spouse manages his meds and does most of the driving. Smoking Status: Never smoker Past Alcohol Use History: Rare Past Drug Use History: None Reported - Past Family History Father Family Medical History: Deep Vein Thrombosis (DVT) Son(s) Family Medical History: Cancer Additional Family Medical History / Comment(s): Skin cancer. Mother Family Medical History: Cancer Additional Family Medical History / Comment(s): Mother was healthy Medications and Allergies Home Medications Medication Instructions Recorded Confirmed Type Finasteride [Proscar] 5 mg PO DAILY@99902/09/17 09/20/21 History Tamsulosin HCl [Flomax] 0.4 mg PO DAILY@99902/09/17 09/20/21 History Multivitamins, Thera [Multivitamin 1 tab PO DAILY@99912/31/18 09/20/21 History (formulary)] Atorvastatin Calcium [Lipitor] 20 mg PO HS 10/14/19 09/20/21 History Vit C/E/Zn/Coppr/Lutein/Zeaxan 1 cap PO HS 12/18/19 09/20/21 History [Preservision Areds 2 Softgel] Calcium Carbonate [Tums] 1,000 mg PO DAILY PRN 12/28/19 09/20/21 History Pantoprazole [Protonix] 40 mg PO DAILY@1000 12/28/19 09/20/21 History Eltrombopag Olamine [Promacta] 25 mg PO DAILY@0800 02/23/20 09/20/21 History Metoprolol Tartrate [Lopressor] 50 mg PO BID@1000,2200 03/05/20 09/20/21 History Tacrolimus [Prograf] 1 mg PO DAILY@1000 04/03/20 09/20/21 History mycophenolate mofetiL [Cellcept] 250 mg PO BID@1000,2200 04/03/20 09/20/21 History predniSONE 10 mg PO DAILY@1000 04/03/20 09/20/21 History DULoxetine HCL [Cymbalta] 120 mg PO 1000 12/01/20 09/20/21 History INSULIN LISPRO (HumaLOG) [humaLOG] 4 unit SQ AC-TID 12/01/20 09/20/21 History INSULIN LISPRO (HumaLOG) [humaLOG] See Protocol SQ AC-TID 12/01/20 09/20/21 History Insulin Glargine/Lixisenatide 20 unit SQ 1000 12/01/20 09/20/21 History [Soliqua 100 Unit-33 Mcg/ml Pen] Levothyroxine Sodium [Synthroid] 75 mcg PO DAILY@1000 12/01/20 09/20/21 History Tacrolimus [Prograf] 1.5 mg PO HS@2200 12/01/20 09/20/21 History Aspirin 81 mg PO DAILY 07/12/21 09/20/21 History Cyclobenzaprine [Flexeril] 5 mg PO BID@0800,1600 07/12/21 09/20/21 History Gabapentin 300 mg PO QAM 07/12/21 09/20/21 History QUEtiapine [SEROquel] 100 mg PO HS@2200 07/12/21 09/20/21 History Rosuvastatin Calcium [Crestor] 5 mg PO HS 07/12/21 09/20/21 History Sodium Bicarbonate Tab 650 mg PO 1000 07/12/21 09/20/21 History amLODIPine [Norvasc] 2.5 mg PO 1000,2200 09/02/21 09/20/21 History rOPINIRole HCL [Requip] 1 mg PO HS 09/02/21 09/20/21 History Allergies Allergy/AdvReac Type Severity Reaction Status Date / Time morphine Allergy Severe Itching Verified 09/20/21 08:39 Physical Examination Osteopathic Statement: *. No significant issues noted on an osteopathic structural exam other than those noted in the History and Physical/Consult. PHYSICAL EXAMINATION: General: Awake, alert, appropriate for age, in no acute distress. HEENT: No unusual neck masses around region of lateral neck triangle, thyroid, supraclavicular groove Heart: Regular rate and rhythm, normal S1, S2 and no murmur/gallop. Lungs: Clear to auscultation bilaterally with no use of accessory muscles. Extremities: Skin warm and dry without acute lesions, coloration, temperature, skin intact, no tenderness or erythema Integument: Hairy patches: Absent Dorsal skin dimples: Absent Cafe au lait spots: Absent Surgical incisions: No Palpation: Please see Pain drawing on Intake sheet for further detail. Midline spinal tenderness: No E6 Paralumbar tenderness: mild E6 Parathoracic tenderness: No E6 Buttocks tenderness: No E6 Special findings: no pain with logroll of the left hip pain at extremes of motion with the left hip positive Silverskiold's test on the left unable to ambulate secondary to pain POSTURAL and MUSCULO-SKELETAL EVALUATION: Coronal Balance: NEUTRAL Recumbent testing: Patient is able to lay flat on back Sagittal Balance: NEUTRAL Shoulder Profile: LEVEL Pelvic Girdle: LEVEL Neck ROM: UNRESTRICTED Lumbar ROM: RESTRICTED Shoulder ROM: Symmetrical Hip ROM: Symmetrical, painful ROM of the hip on the Lt with positive Silverskiold's. Knee ROM: Symmetrical Hands: Normal appearance, symmetrical Feet: Normal appearance, Symmetrical VASCULAR STATUS : LEFT RIGHT Wrist Pulses INTACT INTACT Pedal Pulses (Dors. pedis & post.tibialis) INTACT INTACT Color NORMAL NORMAL Edema Absent Absent NEUROLOGIC EXAMINATION: Mental Status:Awake and alert, fully oriented, with normal attention, concentration and memory, and fluent, appropriate speech. Cranial Nerves: I: Olfactory not tested. II: Visual acuity normal, no visual field deficit noted with confrontation. III,IV: Normal pupillary reflexes & intact extraocular movements without nystagmus. V,: Intact symmetrical facial sensation. VII: Intact symmetrical facial motor movement VIII: Hearing intact. IX,X: Intact gag, swallow, & normal voice. XI: Sternocleidomastoid, trapezius function intact. XII: Tongue midline with normal movements. L'hermitte's Sign: Negative / absent Spurling'Sign: Absent bilaterally. Cubital percussion test: Absent bilaterally. Patricia-Tinel sign - Carpal region: Absent bilaterally. Straight Leg Raising: Absent bilaterally. Crossed straight leg raise: negative O8 MOTOR EXAM (0-5/5, N/T) STRENGTH RIGHT LEFT Shoulder Abd (not part of the RADHA score) 5 5 Elbow Flexors 5 5 Elbow Extensor 5 5 Wrist Dorsiflexors 5 5 Finger Abductor 5 5 Oil Processing Technician 5 5 Pt somewhat uncooperative with LE strength testing. He states pain with motion. He has 3/5 strength in hip flexion, as well as KF KE on the Lt as well. REFLEXES(0-4/2, NT) RIGHT LEFT Upper Extremities 2 2 Lower Extremities 2 2 Pathological Reflexes RIGHT LEFT Salvador's Absent Absent Clonus Absent Absent Babinski Absent Absent # Indicates mechanical impairment Muscle appearance: Symmetrical, without signs of atrophy or dystrophy. Sensory system (0-4, N/T) Test type RU ABBI RL LL Joint-Position 2 2 2 2 Vibration 2 2 2 2 Pain & LT sense 2 2 2 2 Dermatomal Deficit: None None None None Gait and Functional Evaluation: Ambulatory aids: Wheeled walker Romberg's test: Intact bilaterally Toe heel walk / heel-toe walk intact while maintaining satisfactory balance? no Squatting/straightening w/o assistance to a min of 60 degree knee flexion? no Single leg stance: unstable bilaterally Trendelenburg sign negative bilaterally Hand and finger dexterity intact bilaterally? yes Disdiadochokinesis examination negative bilaterally? yes Results RADIOGRAPHIC STUDIES: XRay taken on 05/07/21 of Lumbar Spine: Spondylosis noted throughout the lumbar spine. Flattened lordosis. No fractures noted. Some flowing osteophytes. AP pelvis shows level congruent pelvis. There is question of Lt femoral neck fracture with impaction on the L. There is severe OA changes of b/l hips noted worse on the L than the R. CT scan from of Lumbar Spine: severe spondylosis of L spine noted with facet hypertrophy of L3-S1 with what appears to be moderate to severe stenosis of these levels. therefore an osteophytes noted anteriorly. There is question of disc herniation at multiple levels L3 4 L4 5 however is difficult to determine on computed tomography scan. Pelvic view and computed tomography scan demonstrates questionable fracture of the left femoral neck as well with impaction. No other fractures or dislocations noted at this time. MRI of the left hip from 05/27/2021 reviewed today reveals: Partial tear of the obturator internus. no other complicating processes noted MRI of the lumbar spine from 07/07/2021 reviewed today reveals: This is reviewed and demonstrates spondylosis with severe stenosis from L3-L5 with b/l foraminal stenosis, disc height loss, segmental kyphosis as well as facet arthrosis, bogginess, ligamental hypertrophy and facet hypertrophy causing central and foraminal stenosis that is moderate to severe. No fractures noted. L1-L2: Normal disc appearance without desiccation. No herniation, protrusion or disc bulging. No canal stenosis is present. Foramina are patent bilaterally. L2- L3: Posterior disc bulge causes mild anterior mass effect on the thecal sac somewhat eccentric towards the left. Circumferential extension of disc material towards the left encroaches minimally on the inferior aspect of the foramen. No significant spinal stenosis. L3-L4: There is severe spinal stenosis, posterior disc bulge is present, there is hypertrophy ligamentum flavum, circumferential extension of disc material results in foraminal encroachment greater on the left than on the right. Discogenic material extends posterior to the L3 vertebral body in the left paracentral location causing some anterolateral mass effect on the thecal sac extending from the disc space at L3-4, sagittal image #9, axial image 18 L4-L5: Posterior broad-based disc bulge causes anterior mass effect on the thecal sac. Circumferential extension endplate disc complex causes some right- sided foraminal encroachment. No significant spinal stenosis. There is facet arthropathy with hypertrophy ligamentum flavum causing some posterior lateral mass effect on the thecal sac. L5-S1: There is a posterior disc bulge present which may contact the proximal S1 nerve roots. Circumferential extension of endplate disc complex encroaches upon the foramina greater on the right possibly contributed by the curvature. No significant spinal stenosis. Facet arthropathy contributes to cause some lateral recess stenosis on the right Lumbar segments are intact. No paraspinal masses are identified. Conus medullaris has a normal appearance. There is a spinal curvature. Lumbar vertebral bodies show preserved height and alignment. There is multilevel spondylosis with endplate discogenic marrow signal change. Loss of disc signal is present at intervertebral levels L2-3, L3-4, L4-5, L5-S1, there is loss of disc height greatest at L3-4 and L4-5. There is loss of volume in the renal parenchymal consistent with chronic medical renal disease IMPRESSION: Spinal stenosis is significant at L3-4, possibly sequestered fragment. Multilevel degenerative disc disease, foraminal encroachment as described. Facet arthropathy. Assessment and Plan Assessment: It was my pleasure to have seen and examined Chet. I reviewed the patient's clinical syndrome, physical findings, and imaging studies during the appointment today. It is my impression that the patient has a diagnosis of. 1. Partial thickness tear of the obturator internus 2. Neurogenic claudication 3. L3-L4 severe spondylosis with stenosis 4. L3-L5 spondylosis with foraminal stenosis Plan: Based on my findings I suggest the following course of action: 1.The nature of the disorder and treatment options were discussed with the patient. I discussed treatment options with the patient, including operative and non- operative options, and they have elected to proceed with the following surgical procedure: L3-L5 decompression and fusion The indications, risks, benefits, and alternatives to surgery were discussed with the patient and family at length. Specifically (but not limited to) the risks of infection, stiffness, recurrence of symptoms, need for revision surgery, local numbness, neurovascular injury, and blood clots were discussed. The patient's questions were answered. The decision to proceed was made. Consent will be obtained for the procedure. 2. Given a script for Duricef 500mg BID #8 to start on 09/04/2021, patient expressed understanding of this. Spine Surgery Risk Review Chet Lobo is presenting for evaluation of low back pain. It was my pleasure to have seen and examined Chet Lobo. In our visit today we have had a chance to go over subjective complaints, physical examination findings and treatments including the natural course h istory without intervention and various interventional options. The patients imaging demonstrates L1-L2: Normal disc appearance without desiccation. No herniation, protrusion or disc bulging. No canal stenosis is present. Foramina are patent bilaterally. L2-L3: Posterior disc bulge causes mild anterior mass effect on the thecal sac somewhat eccentric towards the left. Circumferential extension of disc material towards the left encroaches minimally on the inferior aspect of the foramen. No significant spinal stenosis. L3-L4: There is severe spinal stenosis, posterior disc bulge is present, there is hypertrophy ligamentum flavum, circumferential extension of disc material results in foraminal encroachment greater on the left than on the right. Discogenic material extends posterior to the L3 vertebral body in the left paracentral location causing some anterolateral mass effect on the thecal sac extending from the disc space at L3-4, sagittal image #9, axial image 18 L4-L5: Posterior broad-based disc bulge causes anterior mass effect on the thecal sac. Circumferential extension endplate disc complex causes some right- sided foraminal encroachment. No significant spinal stenosis. There is facet arthropathy with hypertrophy ligamentum flavum causing some posterior lateral mass effect on the thecal sac. L5-S1: There is a posterior disc bulge present which may contact the proximal S1 nerve roots. Circumferential extension of endplate disc complex encroaches upon the foramina greater on the right possibly contributed by the curvature. No significant spinal stenosis. Facet arthropathy contributes to cause some lateral recess stenosis on the right Lumbar segments are intact. No paraspinal masses are identified. Conus medullaris has a normal appearance. There is a spinal curvature. Lumbar vertebral bodies show preserved height and alignment. There is multilevel spondylosis with endplate discogenic marrow signal change. Loss of disc signal is present at intervertebral levels L2-3, L3-4, L4-5, L5-S1, there is loss of disc height greatest at L3-4 and L4-5. There is loss of volume in the renal parenchymal consistent with chronic medical renal disease. On physical exam, Chet Lobo demonstrates bilateral lower extremity weakness with prominent instability, there is also a limit with ROM and pain with all testing. I have explained to the patient that as their condition progresses it will cause further neurological deficits and eventual paralysis. Based on the patients imaging, physical exam, and the rapid progression and disabling nature of their symptoms, at this time I recommend surgery in the form or a: L3-L5 decompression and fusion (PLIF). I discussed the risk and benefits of this procedure at length with Chet Lashell. The patient and his agreed to considered pursuing the procedure abovementioned. Prior to surgery, she should follow up with her PCP (Cardio, ID, IM etc) for clearance. Questions were invited and answered, and the patient wishes to proceed as outlined below. Currently, I am recommendin.L3-L5 decompression and fusion (PLIF) 2.Follow up with PCP for surgical clearance 3.Review of surgical risks and benefits as well as an educational packet on the proposed surgical procedure. Risks: All surgical procedures come with inherent risks, including those related to positioning, anesthesia, intraoperative findings, and postoperative complications. It is important to understand that surgery does not come with any guarantee of a successful outcome as complications and adverse events are always possible. The patient was given a handout in office today discussing the surgical proc edure and risks associated with the intervention, both of which were discussed with the patient. These risks include but are not limited to the following: * Experiencing same, different or even worse symptoms in back, neck, arms, or legs compared to before surgery. Requiring further surgery or other forms of treatment presently or at some time in the future at same or other levels of the intended spine surgery. On an extreme but fortunately relatively rare basis severe complication such as blindness, stroke, heart attack, temporary and/or permanent nerve injury, paralysis, coma, or may occur, sometimes without known explanation. Surgical complications may include but are not limited to risk of infection, fluid accumulation in the surgical dissection site, including a seroma or hematoma, that requires additional surgery, wound drainage, bleeding, new numbness or weakness, vision changes/loss, spinal fluid leakage, non-healing and/or infected incision, headaches, difficulty or inability to swallow, hoarseness, hemopneumothorax, pneumothorax, impotence, retrograde ejaculation, vaginal dryness; injury to nerves, spinal cord, blood vessels, lymphatics or oth er vital organs (i.e., bowel injury, injury to the great vessels); heterotopic bone formation; complications related to the hardware such as screws, rods, cages including misplaced hardware, device failure, instrumentation at the wrong spine level, hardware fracture/breakage, or hardware loosening; vertebral failure of the spinal column above or below the newly placed hardware; retained surgical instrumentations or devices and the need for further surgery. * Medical risks of the planned spine surgery include but are not limited to generalized Infections to the whole body or local areas outside of the surgical site (sepsis), heart attack, bleeding, anaphylaxis, meningitis, seizure, epilepsy, hearing loss, burn funes, laceration of the head or other areas of the body, bruising, hypersensitivity of the skin, bladder over distension; allergic reaction; shoulder injury related to positioning; fat, blood and air clots to other areas of the body like heart, lungs, brain; failure of internal organs such as lungs, kidneys, liver and excessive bleeding. If blood transfusions are necessary, note that transfusions may cause intolerance reactions such as anaphylaxis or other complex reactions. Despite best efforts, the results of spine surgery might not heal in terms of bone, soft tissues such as skin, fascia, ligaments, and joints. Additionally, in order to achieve best possible results, spine surgery may be carried out beyond the initially planned levels and involve decompression, fusion including insertion of hardware at levels other than the original intended area of surgi keiko interest change some portions of the procedure in order to ensure the best possible outcomes. With spine surgery and spinal fusion, there are different off label uses of instrumentation (devices, implants and hardware) as well as biological substances (bone morphogenic proteins, demineralized bone matrix) as well as using extra bone from allograft sources (i.e. cadaver bone) or autograft (iliac crest bone, ribs, or the spine itself). The patient has been given information about these practices and their inherent risks and benefits. [facility] is an educational center that serves as a training facility forCRNA and nursing students. Physician assistants and nurse practitioners are medically trained surgical providers who function in the outpatient, inpatient, and operating room setting under the direct supervision of the attending surgeon. [facility] has multiple operating rooms with single and overlapping rooms running daily. They currently function under the required guidelines as produced by the [facility] Finance Committee with regards to the overlapping rooms and will continue to comply with changes to this policy as they occur. The requirements include and are complied with as follows: (1) the critical portions of the overlapping rooms will not occur at the same time, (2) the attending physician will be physically present during the critical portions of the procedure and immediately available during the entire case, and (3) a back-up attending is designated should the primary attending not be immediately available. The patient has had a chance to review all the listed information, has been given print outs detailing this information, and has had all his/her questions answered to their satisfaction. It was my pleasure to have seen and examined Chet Lashell. In our visit today we have had a chance to go over my understanding of our patient's current condition, the natural course history without intervention and various interventional options. Questions were invited and answered, and the patient wishes to proceed as outlined above. I have seen and examined the patient for 25 minutes and we have spent more than 50% of the time in repeat and detailed counseling about the patient's condition, its natural course history with out and as much as can be predicted with surgery and re-review of various surgical treatment options. In conclusion, Chet Lobo and his requested we proceed with the above suggested surgery and are willing to accept risks and limitations of the suggested surgery as nature of the disease process and our best attempts at treatment for the condition. Thank you again for allowing us to be part of your patient's care. Please don't hesitate to contact me if you have any further questions. Signed and authenticated by: [employer] P:\\\\ppart\\\\[id number]\\\\[id number] \\d Brent Naqvi [facility] [address] [place] [address]
[2021-09-21] MEDS ORDERED: GABAPENTIN 300 MG CAP PO PRN (05:00)
[2021-09-21] MEDS ORDERED: TRANEXAMIC ACID 1,000 MG in SODIUM CHLORIDE 0.9% 100 ML IVPB PRN ×4 (05:00)
[2021-09-21] MEDS ORDERED: ONDANSETRON 4 MG/2 ML VIAL IVP PRN (05:00)
[2021-09-21] MEDS ORDERED: ACETAMINOPHEN TAB 500 MG TAB PO PRN (05:00)
[2021-09-21] MEDS ORDERED: DEXAMETHASONE SOD PHOSPHATE 4 MG/ML 1 ML VIAL IV ONE (05:57)
[2021-09-21] MEDS ORDERED: fentaNYL (PF) 50 MCG/ML 2 ML AMP IV PRN (05:57)
[2021-09-21] MEDS ORDERED: ONDANSETRON 4 MG/2 ML VIAL IVP ONE (05:57)
[2021-09-21 10:28] LABS: Glucose,Whole Blood 110 mg/dL (75-99)
[2021-09-21] MEDS ORDERED: SODIUM CHLORIDE 0.9% 1,000 ML IV ONE ×2 (10:37→10:38)
[2021-09-21] MEDS ORDERED: TRANEXAMIC ACID 1,000 MG/10 ML VIAL ONE (13:16)
[2021-09-21] MEDS ORDERED: fentaNYL (PF) 50 MCG/ML 2 ML AMP ONE (13:16)
[2021-09-21] MEDS ORDERED: ALBUMIN HUMAN 5% (12.5gm) 250 ML BOTTLE IVPB ONE (13:16)
[2021-09-21] MEDS ORDERED: SUCCINYLCHOLINE CHLORIDE 100 MG/5 ML SYR IV ONE (13:16)
[2021-09-21] MEDS ORDERED: HYDROCORTISONE SUCCINATE 100 MG/2 ML VIAL ONE (13:16)
[2021-09-21] MEDS ORDERED: ePHEDrine 50 MG/ML 1 ML VIAL ONE (13:16)
[2021-09-21] MEDS ORDERED: ONDANSETRON 4 MG/2 ML VIAL ONE (13:16)
[2021-09-21] MEDS ORDERED: PHENYLEPHRINE-0.9% NACL SYG 1,000 MCG/10 ML SYRINGE ONE (13:16)
[2021-09-21] MEDS ORDERED: ROCURONIUM 10 MG/ML (5 ML VIAL) IV ONE (13:16)
[2021-09-21] MEDS ORDERED: LIDOCAINE 1% INJ 10MG/ML (20 ML MDV) ONE (13:16)
[2021-09-21] MEDS ORDERED: ceFAZolin 1,000 MG VIAL ONE (13:16)
[2021-09-21] MEDS ORDERED: SODIUM CHLORIDE 0.9% 100 ML BAG ONE ×2 (13:16)
[2021-09-21] MEDS ORDERED: GLYCOPYRROLATE 0.2 MG/ML 2 ML VIAL ONE (13:16)
[2021-09-21] MEDS ORDERED: MIDAZOLAM 2 MG/2 ML VIAL ONE (13:16)
[2021-09-21] MEDS ORDERED: NEOSTIGMINE 1 MG/ML 10 ML VIAL ONE (13:16)
[2021-09-21] MEDS ORDERED: PROPOFOL 10 MG/ML 20 ML VIAL IV ONE (13:16)
[2021-09-21] MEDS ORDERED: THROMBIN (BOVINE) 5,000 UNIT VIAL TOPICAL ONE (14:22)
[2021-09-21] MEDS ORDERED: BUPIVACAINE (PF) 0.25% 30 ML VIAL SQ ONE (14:22)
[2021-09-21] MEDS ORDERED: GELATIN SPONGE,ABSORB (LARGE) 1 EACH SPONGE MISCELLANE ONE (14:22)
[2021-09-21] MEDS ORDERED: LACTATED RINGERS 1,000 ML IV ONE ×4 (15:09→19:35)
[2021-09-21 15:39] LABS: Glucose,Whole Blood 148 mg/dL (75-99)
[2021-09-21 17:02] LABS: Glucose,Whole Blood 174 mg/dL (75-99)
[2021-09-21] MEDS ORDERED: VANCOMYCIN 1,000 MG VIAL MISCELLANE ONE (17:43)
[2021-09-21] MEDS ORDERED: MAG HYDROX/AL HYDROX/SIMETH 30 ML CUP PO PRN (17:49)
[2021-09-21] MEDS ORDERED: HYDROmorphone 1 MG/ML 1 ML SYRINGE IVP PRN ×2 (17:49)
[2021-09-21] MEDS ORDERED: HYDROcodone/APAP 5-325MG 1 EACH TAB PO PRN (17:49)
[2021-09-21] MEDS: HYDROmorphone 0.5 MG/0.5 ML SYRINGE IVP PRN ×5 (18:41→19:25)
--- NOTE | 2021-09-21 18:44 | P.PN ---
Progress Note - Text History and Physical UPDATE I have seen and examined the patient and reviewed the history and physical. There appear to be no significant changes in the patient's current medical status as outlined in the current History and Physical.
--- NOTE | 2021-09-21 18:46 | P.PN ---
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 He is still very sleepy from surgery. Post op Plan: Post operative noncontrasted CT scan Encourage ambulation IS 10x/hr Teds/SCDs Pain control LSO brace when up and about Record Drain output patient will be sent to the floor when he is awake and stable per the PACU team and anesthesia staff
[2021-09-21 19:18] LABS: Glucose,Whole Blood 164 mg/dL (75-99)
[2021-09-21] MEDS ORDERED: LIDOCAINE-D5W PMX 2G/250ML 2,000 MG in DEXTROSE/WATER 1 250ML.BAG IV ONE (19:35)
[2021-09-21] MEDS: LACTATED RINGERS 1,000 ML IV SCH ×3 (22:10→22:33)
[2021-09-21] MEDS: GABAPENTIN 300 MG CAP PO SCH (22:14)
[2021-09-21] MEDS: HYDROcodone/APAP 10-325MG 1 EACH TAB PO PRN (22:18)
--- NOTE | 2021-09-21 22:27 | FL ---
EXAMINATION TYPE: FL guidance operating room, XR lumbar spine 2 or 3V DATE OF EXAM: 09/21/2021 CLINICAL HISTORY: Low back pain. TECHNIQUE: Fluoroscopy. Intraoperative 2 views lumbar spine. COMPARISON: MRI lumbar spine July 07, 2021. FINDINGS: Fluoroscopic guidance was provided during L3-L5 fusion procedure performed by Dr. Newsome on. A total of 99 seconds of fluoroscopic time was utilized during the procedure and 5 spot intraop erative images are acquired. Intraoperative images obtained show advancement of surgical hardware from posterior approach with leana ateral interpedicular rods and screws placement along with artificial disc material at L3-L5 levels. IMPRESSION: As Above.
[2021-09-21] MEDS: ACETAMINOPHEN TAB 325 MG TAB PO SCH (22:32)
[2021-09-22] MEDS: ACETAMINOPHEN TAB 325 MG TAB PO SCH ×5 (01:25→23:43)
[2021-09-22] MEDS: HYDROcodone/APAP 10-325MG 1 EACH TAB PO PRN ×3 (04:28→18:21)
[2021-09-22] MEDS: LACTATED RINGERS 1,000 ML IV SCH ×2 (04:29→07:07)
[2021-09-22] MEDS: CYCLOBENZAPRINE 5 MG TAB PO PRN ×2 (06:13→17:23)
[2021-09-22] MEDS: SENNOSIDES-DOCUSATE SODIUM 1 EACH TAB PO PRN (07:36)
[2021-09-22] MEDS: GABAPENTIN 300 MG CAP PO SCH ×2 (07:36→22:09)
[2021-09-22 08:06] LABS: Glucose,Whole Blood 152 mg/dL (75-99)
--- NOTE | 2021-09-22 08:13 | CT ---
EXAMINATION TYPE: CT lumbar spine wo con DATE OF EXAM: 09/22/2021 7:57 AM COMPARISON: X-ray dated 09/21/2021 and MRI dated 07/07/2021 HISTORY: S/P L3-L5 Decompression and fusion CT DLP: 1364.8 mGycm Automated exposure control for dose reduction was used. Technique: Unenhanced CT of the lumbar spine was performed. Bone and soft tissue window settings are submitted as well as coronal and sagittal reconstructions. FINDINGS: Interval L3 down to L5 fixation using 2 roads and 6 metallic screws causing beam hardening artifacts on the adjacent structures. L4-5 and L5-S1 disc prosthesis is also noted. Laminectomy of L3 and L4 wi th partial laminectomy of L5. Acute postoperative changes are seen with soft tissue swelling, edema a t the operative bed with overlying skin leanne. Soft tissue gas and surgical drain are also noted. A small collection at the operative bed cannot be totally excluded. Minimal retrolisthesis of L4 over L5. At L2-3 level: Diffuse posterior disc bulge more inclined to the left side with focal left foraminal and extra foraminal protrusion, associated with slightly prominent posterior epidural fat, causing se zoie central spinal canal stenosis without significant neural foraminal stenosis. Apparent proper decompression of the spinal canal starting from L3-4 down to L5 level. Mild bilateral L5-S1 neuroforaminal stenosis is appreciated, with suspected indentation/compression of L5 nerve aye ts in extraforaminal location by adjacent osteophytosis, more on the right side. Suboptimal assessment for spinal canal or neuroforaminal stenosis at L3-4 and L4-5 levels. Scattered arterial atherosclerotic calcifications. Severe atrophy of the solomon kidneys. Minimal fibrotic cruz es in the posterior aspect of the right lung bases. No paraspinal lesion. IMPRESSION: Interval postoperative changes as detailed above.
[2021-09-22 09:44] LABS: Basophils # (A) 0.02 X 10*3/uL (0.00-0.10); Basophils % (A) 0.2 %; Eosinophils # (A) 0 X 10*3/uL (0.04-0.35); Eosinophils % (A) 0 %; HCT 34.1 % (39.6-50.0); HGB 10.9 g/dL (13.0-17.0); Immature Grans, Automated 1.3 %; Lymphocytes # (A) 0.43 X 10*3/uL (0.90-5.00); Lymphocytes % (A) 3.5 %; MCH 29.7 pg (27.0-32.0); MCV 92.9 fL (80.0-97.0); Monocytes # (A) 1.05 X 10*3/uL (0.20-1.00); Monocytes % (A) 8.4 %; NRBC Per 100 WBC 0 /100 WBCS (0.0-0.0); Neutrophils # (A) 10.79 X 10*3/uL (1.80-7.70); Neutrophils % (A) 86.6 %; Platelet Count 191 X 10*3/uL (140-440); RBC 3.67 X 10*6/uL (4.40-5.60); RDW 14.1 % (11.5-14.5); WBC 12.45 X 10*3/uL (4.50-10.00)
[2021-09-22 11:43] LABS: Anion Gap 15.6 mmol/L (10.00-18.00); BUN/Creat Ratio 19.65 Ratio (12.00-20.00); Blood Urea Nitrogen 28.1 mg/dL (9.0-27.0); Calcium 7.5 mg/dL (8.7-10.3); Carbon Dioxide 19.9 mmol/L (20.0-27.5); Non-African American GFR(CKD) 46.6 (60.0-200.0); Potassium 4.6 mmol/L (3.5-5.5)
[2021-09-22 12:03] LABS: Glucose,Whole Blood 237 mg/dL (75-99)
[2021-09-22] MEDS: INSULIN ASPART (NovoLOG) 100 UNIT/ML VIAL SQ SCH ×3 (12:24→21:29)
--- NOTE | 2021-09-22 14:51 | P.PN ---
Subjective Progress Note Date: 09/22/21 Principal diagnosis: L3 to L5 fusion with decompression I have personally seen and examined the patient, performed the documentation and the assessment and plan as written. Number of minutes spent on the visit: [30 ]. Postop day 1: Patient seen and examined on the floor is doing well, pain is controlled. Patient was up in chair eating lunch. All 4 extremities with good strength no focal deficits. Patient continues to deny any bladder or bowel retention/incontinence, no perineal numbness/tingling, and pt states ambulates independently with walker. Objective - Vital Signs Vital signs: Vital Signs Temp 98 F 09/22/21 11:57 Pulse 99 09/22/21 11:57 Resp 22 09/22/21 11:57 BP 124/70 09/22/21 11:57 Pulse Ox 97 09/22/21 11:57 Intake & Output 09/21/21 09/22/21 09/22/21 18:59 06:59 18:59 Intake Total 3676 1000 Output Total 625 810 520 Balance 3051 190 -520 Weight 90.9 kg Intake: IV 2950 1000 Blood Product 726 Platelet Pheresis Pas 363 Psoralen Unit [id number] Output: Drainage 110 100 Back 110 100 Urine 125 700 420 Uretheral (Dubon) 420 Estimated Blood Loss 500 Other: Voiding Method Indwelling Catheter Indwelling Catheter - Exam Gen: AOx3, NAD VSS stable at this time Integument: incision is clean dry and intact adjustments in good condition no shadowing noted. Drain output 210ml Palpation: [Paralumbar tenderness to choose surgical procedure ROM: limited due to pain Sensory Exam: Senory exam to light touch is intact C5-T1 Senosry exam to light touch is intact L2-S1 Motor: patient is 4 out of 5 bilateral lower extremities. Reflexes: 2/4 in all UE and LE - Labs CBC & Chem 7: 09/22/21 06:01 09/22/21 06:01 Labs: Abnormal Lab Results - Last 24 Hours (Table) 09/21/21 09/21/21 09/21/21 Range/Units 15:36 17:01 19:16 WBC (4.50-10.00) X 10*3/uL RBC (4.40-5.60) X 10*6/uL Hgb (13.0-17.0) g/dL Hct (39.6-50.0) % Immature Gran # (0.00-0.04) X 10*3/uL Neutrophils # (1.80-7.70) X 10*3/uL Lymphocytes # (0.90-5.00) X 10*3/uL Monocytes # (0.20-1.00) X 10*3/uL Eosinophils # (0.04-0.35) X 10*3/uL Carbon Dioxide (20.0-27.5) mmol/L BUN (9.0-27.0) mg/dL Est GFR (CKD-EPI)AfAm (60.0-200.0) Est GFR (CKD-EPI)NonAf (60.0-200.0) Glucose (70-110) mg/dL POC Glucose (mg/dL) 148 H 174 H 164 H (75-99) mg/dL Calcium (8.7-10.3) mg/dL 09/22/21 09/22/21 09/22/21 Range/Units 06:01 06:01 08:04 WBC 12.45 H (4.50-10.00) X 10*3/uL RBC 3.67 L (4.40-5.60) X 10*6/uL Hgb 10.9 L (13.0-17.0) g/dL Hct 34.1 L (39.6-50.0) % Immature Gran # 0.16 H (0.00-0.04) X 10*3/uL Neutrophils # 10.79 H (1.80-7.70) X 10*3/uL Lymphocytes # 0.43 L (0.90-5.00) X 10*3/uL Monocytes # 1.05 H (0.20-1.00) X 10*3/uL Eosinophils # 0 L (0.04-0.35) X 10*3/uL Carbon Dioxide 19.9 L (20.0-27.5) mmol/L BUN 28.1 H (9.0-27.0) mg/dL Est GFR (CKD-EPI)AfAm 54.0 L (60.0-200.0) Est GFR (CKD-EPI)NonAf 46.6 L (60.0-200.0) Glucose 193 H (70-110) mg/dL POC Glucose (mg/dL) 152 H (75-99) mg/dL Calcium 7.5 L (8.7-10.3) mg/dL 09/22/21 Range/Units 11:51 WBC (4.50-10.00) X 10*3/uL RBC (4.40-5.60) X 10*6/uL Hgb (13.0-17.0) g/dL Hct (39.6-50.0) % Immature Gran # (0.00-0.04) X 10*3/uL Neutrophils # (1.80-7.70) X 10*3/uL Lymphocytes # (0.90-5.00) X 10*3/uL Monocytes # (0.20-1.00) X 10*3/uL Eosinophils # (0.04-0.35) X 10*3/uL Carbon Dioxide (20.0-27.5) mmol/L BUN (9.0-27.0) mg/dL Est GFR (CKD-EPI)AfAm (60.0-200.0) Est GFR (CKD-EPI)NonAf (60.0-200.0) Glucose (70-110) mg/dL POC Glucose (mg/dL) 237 H (75-99) mg/dL Calcium (8.7-10.3) mg/dL Assessment and Plan Assessment: Postop day 1: Status post L3-L5 fusion with decompression. I reviewed and discussed the case with my attending Dr. Cuellar, he has had a chance to review the chart and films and we have decided to proceed as outlined below. Plan: Encourage ambulation incentive spirometer 10 times/hour Freddy/SCDs Pain control LSO went up and about Record drain output
[2021-09-22] MEDS ORDERED: polyethylene glycoL 3350 17 GM POWD.PACK PO PRN (14:57)
[2021-09-22 17:12] LABS: Glucose,Whole Blood 226 mg/dL (75-99)
[2021-09-22] MEDS ORDERED: CALCIUM CARBONATE 500 MG CHEWABLE PO PRN (17:32)
[2021-09-22] MEDS ORDERED: PANTOPRAZOLE 40 MG/10 ML VIAL IVP SCH (17:45)
--- NOTE | 2021-09-22 17:57 | P.CONS ---
History of Present Illness - Reason for Consult Consult date: 09/22/21 Medical management hypertension, renal failure Requesting physician: Brent Cuellar - Chief Complaint Status post L3 to L5 fusion with decompression, - History of Present Illness This is a 80-year-old gentleman with past medical history of atrial fibrillation, not on anticoagulation secondary to multiple falls and syncope, CKD,post renal transplant on immunosuppressive medications,Polio, diabetes mellitus, hypertension, hyperlipidemia, hypothyroidism, parathyroid surgery, anxiety, depression, chronic back pain, status post L3-L5 fusion with decompression, postop day #1. Tolerated procedure well. Pain controlled. Passing flatus, no bowel movement. Dubon catheter present. Reports ambulating with walker. Denies numbness or tingling. Denies chest pain, palpitations or shortness of breath. BUN 28.1, Creatinine 1.4. Afebrile, WBC 12.45. Hemoglob in 10.9, platelets 191. Review of Systems Constitutional: Denied any fatigue denied any fever. Cardio vascular: denied any chest pain, palpitations Gastrointestinal denied any nausea vomiting Pulmonary: Denied any shortness of breath cough Neurologic denied any new focal deficits ROS Statement: Those systems with pertinent positive or pertinent negative responses have been documented in the HPI. ROS Other: All systems not noted in ROS Statement are negative. Past Medical History Past Medical History: Atrial Fibrillation, Diabetes Mellitus, Hearing Disorder / Deafness, Hyperlipidemia, Hypertension, Renal Disease, Thyroid Disorder Additional Past Medical History / Comment(s): polio at age 6, back pain-spinal stenosis, Melamoma taken off of ear, "slow growing cancer of prostate, being watched by Dr Dasilva." Hard of hearing, LOW PLATELETS, restless legs, hx gout, had infection after kidney transplant-not sure what History of Any Multi-Drug Resistant Organisms: None Reported Past Surgical History: Hernia Repair, Orthopedic Surgery, Tonsillectomy Additional Past Surgical History / Comment(s): leftkidney transplant 2003, parathyroid surgery, arthroscopy knee surgery, pericardiocentesis, cancer removed from ear, Past Anesthesia/Blood Transfusion Reactions: No Reported Reaction Past Psychological History: Anxiety, Depression Additional Psychological History / Comment(s): Pt resides with spouse. He uses a walker. His spouse manages his meds and does most of the driving. Smoking Status: Never smoker Past Alcohol Use History: Rare Past Drug Use History: None Reported - Past Family History Father Family Medical History: Deep Vein Thrombosis (DVT) Son(s) Family Medical History: Cancer Additional Family Medical History / Comment(s): Skin cancer. Mother Family Medical History: Cancer Additional Family Medical History / Comment(s): Mother was healthy Medications and Allergies Home Medications Medication Instructions Recorded Confirmed Type Finasteride [Proscar] 5 mg PO DAILY@1000 02/09/17 09/20/21 History Tamsulosin HCl [Flomax] 0.4 mg PO DAILY@1000 02/09/17 09/20/21 History Multivitamins, Thera [Multivitamin 1 tab PO DAILY@99912/31/18 09/20/21 History (formulary)] Atorvastatin Calcium [Lipitor] 20 mg PO HS 10/14/19 09/20/21 History Vit C/E/Zn/Coppr/Lutein/Zeaxan 1 cap PO HS 12/18/19 09/20/21 History [Preservision Areds 2 Softgel] Calcium Carbonate [Tums] 1,000 mg PO DAILY PRN 12/28/19 09/20/21 History Pantoprazole [Protonix] 40 mg PO DAILY@1000 12/28/19 09/20/21 History Eltrombopag Olamine [Promacta] 25 mg PO DAILY@0800 02/23/20 09/20/21 History Metoprolol Tartrate [Lopressor] 50 mg PO BID@1000,0 03/05/20 09/20/21 History Tacrolimus [Prograf] 1 mg PO DAILY@99904/03/20 09/20/21 History mycophenolate mofetiL [Cellcept] 250 mg PO BID@1000,0 04/03/20 09/20/21 History predniSONE 10 mg PO DAILY@1000 04/03/20 09/20/21 History DULoxetine HCL [Cymbalta] 120 mg PO 1000 12/01/20 09/20/21 History INSULIN LISPRO (HumaLOG) [humaLOG] 4 unit SQ AC-TID 12/01/20 09/20/21 History INSULIN LISPRO (HumaLOG) [humaLOG] See Protocol SQ AC-TID 12/01/20 09/20/21 Hi story Insulin Glargine/Lixisenatide 20 [place] SQ 99912/01/20 09/20/21 History [Soliqua 100 Unit-33 Mcg/ml Pen] Levothyroxine Sodium [Synthroid] 75 mcg PO DAILY@1000 12/01/20 09/20/21 History Tacrolimus [Prograf] 1.5 mg PO HS@2200 12/01/20 09/20/21 History Aspirin 81 mg PO DAILY 07/12/21 09/20/21 History Cyclobenzaprine [Flexeril] 5 mg PO BID@0800,1600 07/12/21 09/20/21 History Gabapentin 300 mg PO QAM 07/12/21 09/20/21 History QUEtiapine [SEROquel] 100 mg PO HS@2200 07/12/21 09/20/21 History Rosuvastatin Calcium [Crestor] 5 mg PO HS 07/12/21 09/20/21 History Sodium Bicarbonate Tab 650 mg PO 1000 07/12/21 09/20/21 History amLODIPine [Norvasc] 2.5 mg PO 1000,2200 09/02/21 09/20/21 History rOPINIRole HCL [Requip] 1 mg PO HS 09/02/21 09/20/21 History cefaDROXiL [Duricef] 09/21/21 History Allergies Allergy/AdvReac Type Severity Reaction Status Date / Time morphine Allergy Severe Itching Verified 09/21/21 10:14 Physical Exam Vitals: Vital Signs Temp Pulse Resp BP Pulse Ox 09/22/21 11:57 98 F 99 22 124/70 97 09/22/21 05:14 97.9 F 84 18 129/72 100 09/21/21 22:15 93 149/90 99 09/21/21 21:15 83 124/70 95 09/21/21 21:01 77 146/76 95 09/21/21 20:45 83 143/76 98 09/21/21 20:30 73 150/73 97 09/21/21 20:15 97.5 F L 91 18 138/85 100 09/21/21 19:46 71 18 125/62 100 09/21/21 19:31 69 16 120/63 98 09/21/21 19:16 78 18 117/65 92 L 09/21/21 19:01 75 18 118/61 92 L 09/21/21 18:46 82 16 124/62 97 09/21/21 18:30 97.1 F L 67 16 122/59 100 Intake and Output 09/22/21 09/22/21 09/22/21 06:59 14:59 22:59 Output Total 810 520 105 Balance -810 -520 -105 Output: Drainage 110 100 105 Back 110 100 105 Urine 700 420 Uretheral (Dubon) 420 Other: Voiding Method Indwelling Catheter Indwelling Catheter Weight 90.9 kg PHYSICAL EXAM: VITAL SIGNS: As above GENERAL: Sitting up in chair, no acute distress, eating breakfast HEENT: Conjunctivae normal. eyes normal. Oral mucosa moist NECK: No JVD. No thyroid enlargement. No LNs CARDIOVASCULAR: S1, S2 regular. Systolic murmur RESPIRATION: Breath sounds diminished in the bases. No rhonchi or crackles. No bronchial breathing. ABDOMEN: Soft, nontender.No guarding. no masses palpable. No rebound, rigidity, guarding .Bowel sounds heard. EXTREMITIES: No edema. no swelling. Diminished pulses. Wearing JAI hose PSYCHIATRY: Alert and oriented X3, mood and affect normal. NERVOUS SYSTEM: Cranial N 2-12 grossly normal. Moves all 4 limbs. Diffuse weakness, No focal deficits. Strength and sensation grossly intact. Skin: Warm and dry, no rash. Dressing on back with minimal shadowing, Hemovac present with sanguineous drainage Results CBC & Chem 7: 09/22/21 06:01 09/22/21 06:01 Labs: Abnormal Lab Results - Last 24 Hours (Table) 09/21/21 09/22/21 09/22/21 Range/Units 19:16 06:01 06:01 WBC 12.45 H (4.50-10.00) X 10*3/uL RBC 3.67 L (4.40-5.60) X 10*6/uL Hgb 10.9 L (13.0-17.0) g/dL Hct 34.1 L (39.6-50.0) % Immature Gran # 0.16 H (0.00-0.04) X 10*3/uL Neutrophils # 10.79 H (1.80-7.70) X 10*3/uL Lymphocytes # 0.43 L (0.90-5.00) X 10*3/uL Monocytes # 1.05 H (0.20-1.00) X 10*3/uL Eosinophils # 0 L (0.04-0.35) X 10*3/uL Carbon Dioxide 19.9 L (20.0-27.5) mmol/L BUN 28.1 H (9.0-27.0) mg/dL Est GFR (CKD-EPI)AfAm 54.0 L (60.0-200.0) Est GFR (CKD-EPI)NonAf 46.6 L (60.0-200.0) Glucose 193 H (70-110) mg/dL POC Glucose (mg/dL) 164 H (75-99) mg/dL Calcium 7.5 L (8.7-10.3) mg/dL 09/22/21 09/22/21 09/22/21 Range/Units 08:04 11:51 17:10 WBC (4.50-10.00) X 10*3/uL RBC (4.40-5.60) X 10*6/uL Hgb (13.0-17.0) g/dL Hct (39.6-50.0) % Immature Gran # (0.00-0.04) X 10*3/uL Neutrophils # (1.80-7.70) X 10*3/uL Lymphocytes # (0.90-5.00) X 10*3/uL Monocytes # (0.20-1.00) X 10*3/uL Eosinophils # (0.04-0.35) X 10*3/uL Carbon Dioxide (20.0-27.5) mmol/L BUN (9.0-27.0) mg/dL Est GFR (CKD-EPI)AfAm (60.0-200.0) Est GFR (CKD-EPI)NonAf (60.0-200.0) Glucose (70-110) mg/dL POC Glucose (mg/dL) 152 H 237 H 226 H (75-99) mg/dL Calcium (8.7-10.3) mg/dL Assessment and Plan Assessment: Chronic back pain, Status post L3-L5 fusion with decompression Acute on chronic anemia, postop( hemoglobin 16 07/12/2021). Leukocytosis, suspect reactive Chronic persistent Atrial fibrillation not on any anti-coagulation because of his multiple falls and syncope in the past Chronic renal failure stage III, History of renal transplant Type 2 diabetes mellitus CAD, history of CABG Hypertension Hyperlipidemia Hypothyroidism History of slow growing prostate cancer, under surveillance with Dr. Craig Depression Anxiety Plan: Continue current medication regime ,monitoring and symptomatic treatment. Telemetry ordered. Home meds resumed including immunosuppressive medications, PPI added for GI prophylaxis. Nephrology consulted regarding history of renal transplant. Aggressive pulmonary toileting with incentive spirometer reinforced. Hemoglobin A1c pending. PT/OT. Pain management. Close monitoring of hemoglobin, WBC, renal function with repeat labs ordered for a.m. Thank you for the consult. The impression and plan of care has been dictated as directed. : I performed a history and examination of this patient, discussed the same with the dictator. I agree with the dictator's note ,documented as a scribe. Any additional findings or plans will be noted.
[2021-09-22] MEDS: METOPROLOL TARTRATE 50 MG TAB PO SCH (18:13)
[2021-09-22] MEDS: TACROLIMUS 1 MG CAP PO SCH (18:22)
[2021-09-22] MEDS ORDERED: ATORVASTATIN 20 MG TAB PO SCH (21:00)
[2021-09-22] MEDS ORDERED: INSULIN DETEMIR (LEVEMIR) 100 UNIT/ML SYR SQ SCH (21:00)
[2021-09-22 21:21] LABS: Glucose,Whole Blood 131 mg/dL (75-99)
[2021-09-22] MEDS ORDERED: METOPROLOL TARTRATE 50 MG TAB PO SCH (22:00)
[2021-09-22] MEDS: VIT A,C & E-LUTEIN-MINERALS 1 EACH TAB PO SCH (22:09)
[2021-09-22] MEDS: TACROLIMUS 0.5 MG CAP PO SCH (22:09)
[2021-09-23] MEDS: HYDROcodone/APAP 10-325MG 1 EACH TAB PO PRN ×2 (01:29→13:16)
[2021-09-23] MEDS: ACETAMINOPHEN TAB 325 MG TAB PO SCH ×5 (05:55→23:21)
[2021-09-23] MEDS: LACTATED RINGERS 1,000 ML IV SCH (07:08)
[2021-09-23 07:39] LABS: Glucose,Whole Blood 57 mg/dL (75-99)
[2021-09-23] MEDS: INSULIN ASPART (NovoLOG) 100 UNIT/ML VIAL SQ SCH ×4 (07:45→21:22)
[2021-09-23 07:55] LABS: Glucose,Whole Blood 51 mg/dL (75-99)
[2021-09-23 08:12] LABS: Glucose,Whole Blood 68 mg/dL (75-99)
[2021-09-23] MEDS: ELTROMBOPAG OLAMINE 25 MG PO SCH (08:17)
[2021-09-23] MEDS: SODIUM BICARBONATE TAB 650 MG TAB PO SCH (08:18)
[2021-09-23] MEDS: DULoxetine HCL 60 MG CAPSULE.DR PO SCH (08:18)
[2021-09-23] MEDS: FINASTERIDE 5 MG TAB PO SCH (08:18)
[2021-09-23] MEDS: GABAPENTIN 300 MG CAP PO SCH ×2 (08:18→21:20)
[2021-09-23] MEDS: LEVOTHYROXINE 75 MCG TAB PO SCH (08:18)
[2021-09-23] MEDS: MULTIVITAMINS, THERA 1 EACH TAB PO SCH (08:18)
[2021-09-23] MEDS: TACROLIMUS 1 MG CAP PO SCH (08:19)
[2021-09-23] MEDS: PANTOPRAZOLE 40 MG TABLET PO SCH (08:19)
[2021-09-23] MEDS: METOPROLOL TARTRATE 50 MG TAB PO SCH ×2 (08:19→21:25)
[2021-09-23] MEDS: TAMSULOSIN 0.4 MG CAP.ER.24H PO SCH (08:19)
--- NOTE | 2021-09-23 08:28 | P.PN ---
Subjective Progress Note Date: 09/23/21 Principal diagnosis: Status post L3-L5 decompression and fusion Patient evaluated today at bedside, he is resting comfortably. He is anxious sitting up in bed eating breakfast. He states that he is having quite a bit more pain today but it is controlled with his current medications. They're still waiting on the LSO brace, I did speak with case management, that should be delivered and fitted today. Patient states he has not had a bowel movement, he is passing gas. He is urinating with no difficulty. He denies headaches, lightheadedness, chest pain or shortness of breath. Objective - Vital Signs Vital signs: Vital Signs Temp 97.8 F 09/23/21 04:25 Pulse 94 09/23/21 04:25 Resp 20 09/23/21 04:25 BP 121/67 09/23/21 05:55 Pulse Ox 98 09/23/21 04:25 Intake & Output 09/22/21 09/23/21 09/23/21 18:59 06:59 18:59 Intake Total 440 Output Total 625 100 Balance -625 340 Weight 90.9 kg Intake: Intake, IV Titration 100 Amount ceFAZolin 2 gm In Sodium 100 Chloride 0.9% 50 ml @ 100 mls/hr IVPB Q8HR [facility] Rx# :[id number] Oral 340 Output: Drainage 205 100 Back 205 100 Urine 420 Uretheral (Dubon) 420 Other: Voiding Method Indwelling Catheter Indwelling Catheter # Voids 1 3 - Exam Gen: AOx3, NAD VSS stable at this time Integument: Dressing is in good position and condition, there are spotty drainage noted. 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 appreciated in the bilateral lower extremities with hip flexion, knee extension, knee flexion, plantar flexion, dorsiflexion, EHL, FHL Reflexes: Negative Ingris bilaterally Negative Babinski bilateral Negative clonus bilateral - Labs CBC & Chem 7: 09/22/21 06:01 09/22/21 06:01 Labs: Abnormal Lab Results - Last 24 Hours (Table) 09/22/21 09/22/21 09/22/21 Range/Units 06:01 06:01 11:51 WBC 12.45 H (4.50-10.00) X 10*3/uL RBC 3.67 L (4.40-5.60) X 10*6/uL Hgb 10.9 L (13.0-17.0) g/dL Hct 34.1 L (39.6-50.0) % Immature Gran # 0.16 H (0.00-0.04) X 10*3/uL Neutrophils # 10.79 H (1.80-7.70) X 10*3/uL Lymphocytes # 0.43 L (0.90-5.00) X 10*3/uL Monocytes # 1.05 H (0.20-1.00) X 10*3/uL Eosinophils # 0 L (0.04-0.35) X 10*3/uL Carbon Dioxide 19.9 L (20.0-27.5) mmol/L BUN 28.1 H (9.0-27.0) mg/dL Est GFR (CKD-EPI)AfAm 54.0 L (60.0-200.0) Est GFR (CKD-EPI)NonAf 46.6 L (60.0-200.0) Glucose 193 H (70-110) mg/dL POC Glucose (mg/dL) 237 H (75-99) mg/dL Calcium 7.5 L (8.7-10.3) mg/dL 09/22/21 09/22/21 09/23/21 Range/Units 17:10 21:12 07:31 WBC (4.50-10.00) X 10*3/uL RBC (4.40-5.60) X 10*6/uL Hgb (13.0-17.0) g/dL Hct (39.6-50.0) % Immature Gran # (0.00-0.04) X 10*3/uL Neutrophils # (1.80-7.70) X 10*3/uL Lymphocytes # (0.90-5.00) X 10*3/uL Monocytes # (0.20-1.00) X 10*3/uL Eosinophils # (0.04-0.35) X 10*3/uL Carbon Dioxide (20.0-27.5) mmol/L BUN (9.0-27.0) mg/dL Est GFR (CKD-EPI)AfAm (60.0-200.0) Est GFR (CKD-EPI)NonAf (60.0-200.0) Glucose (70-110) mg/dL POC Glucose (mg/dL) 226 H 131 H 57 L (75-99) mg/dL Calcium (8.7-10.3) mg/dL 09/23/21 09/23/21 Range/Units 07:48 08:09 WBC (4.50-10.00) X 10*3/uL RBC (4.40-5.60) X 10*6/uL Hgb (13.0-17.0) g/dL Hct (39.6-50.0) % Immature Gran # (0.00-0.04) X 10*3/uL Neutrophils # (1.80-7.70) X 10*3/uL Lymphocytes # (0.90-5.00) X 10*3/uL Monocytes # (0.20-1.00) X 10*3/uL Eosinophils # (0.04-0.35) X 10*3/uL Carbon Dioxide (20.0-27.5) mmol/L BUN (9.0-27.0) mg/dL Est GFR (CKD-EPI)AfAm (60.0-200.0) Est GFR (CKD-EPI)NonAf (60.0-200.0) Glucose (70-110) mg/dL POC Glucose (mg/dL) 51 L 68 L (75-99) mg/dL Calcium (8.7-10.3) mg/dL Assessment and Plan Assessment: Postoperative day #2 status post L3-L5 decompression with fusion Plan: Pain control, continue with current medication DVT prophylaxis, heparin 5000 units every 12 during inpatient stay Wound care, to discuss the patient we will change dressing and likely remove training later this afternoon Waiting LSO brace placement, discuss the patient to have this on when he is up and ambulating with walker Continue with PT, weightbearing as tolerated with walker Medical recommendations Discussed with nursing today to increase this will soften as to help with a dvancing his bowels Discharge planning: Plan for discharge home tomorrow with home health care Time with Patient: Less than 30
[2021-09-23 08:38] LABS: Glucose,Whole Blood 104 mg/dL (75-99)
[2021-09-23] MEDS: HEPARIN SODIUM,PORCINE/PF 5,000 UNIT/0.5 ML SYRINGE SQ SCH ×2 (08:39→21:20)
[2021-09-23] MEDS: amLODIPine 2.5 MG TAB PO SCH ×2 (09:13→21:25)
[2021-09-23 09:17] LABS: HCT 41.4 % (39.6-50.0); MCH 29.8 pg (27.0-32.0); MCHC 31.4 g/dL (32.0-37.0); Mean Platelet Volume 10.5 fL (9.5-12.2); NRBC Per 100 WBC 0 /100 WBCS (0.0-0.0); Platelet Count 243 X 10*3/uL (140-440); RBC 4.36 X 10*6/uL (4.40-5.60); RDW 14.3 % (11.5-14.5); WBC 15.61 X 10*3/uL (4.50-10.00)
[2021-09-23 09:27] LABS: African American GFR (CKD) 55.4 (60.0-200.0); BUN/Creat Ratio 19.36 Ratio (12.00-20.00); Blood Urea Nitrogen 27.1 mg/dL (9.0-27.0); Calcium 8.8 mg/dL (8.7-10.3); Non-African American GFR(CKD) 47.8 (60.0-200.0); Potassium 5.4 mmol/L (3.5-5.5)
--- NOTE | 2021-09-23 09:50 | P.NPCON ---
History of Present Illness - Reason for Consult chronic renal failure - History of Present Illness Reason for consultation: Chronic kidney disease and renal transplant management History of present illness: Patient is a 80-year-old male seen in consultation for chronic kidney disease and renal transplant management. Patient received a donor renal transplant in April 2003 at [facility]. Patient's baseline creatinine has been in the range of 1.2-1.7. This admission creatinine has been stable at 1.4. He is maintained on CellCept and Prograf for immunosuppression. I also see prednisone his home medication list but patient is unsure if he's been taking it or not. This will be confirmed with his . He admits to good urine output. No vomiting or diarrhea. Oral intake is good. Denies chest pain or shortness of breath. Patient is status post L3 to L5 decompression with fusion. He denies any pain at this time. Patient has no active complaints at this time. Patient has long-standing history of diabetes. Blood sugars are controlled. Vital signs are stable. General: The patient appeared well nourished and normally developed. HEENT: Head exam is unremarkable. LUNGS: Breath sounds decreased. HEART: Rate and Rhythm are regular. ABDOMEN: Soft, no distention. EXTREMITITES: No edema. Past Medical History Past Medical History: Atrial Fibrillation, Diabetes Mellitus, Hearing Disorder / Deafness, Hyperlipidemia, Hypertension, Renal Disease, Thyroid Disorder Additional Past Medical History / Comment(s): polio at age 6, back pain-spinal stenosis, Melamoma taken off of ear, "slow growing cancer of prostate, being watched by Dr Dasilva." Hard of hearing, LOW PLATELETS, restless legs, hx gout, had infection after kidney transplant-not sure what History of Any Multi-Drug Resistant Organisms: None Reported Past Surgical History: Hernia Repair, Orthopedic Surgery, Tonsillectomy Additional Past Surgical History / Comment(s): leftkidney transplant 2003, parathyroid surgery, arthroscopy knee surgery, pericardiocentesis, cancer removed from ear, Past Anesthesia/Blood Transfusion Reactions: No Reported Reaction Past Psychological History: Anxiety, Depression Additional Psychological History / Comment(s): Pt resides with spouse. He uses a walker. His spouse manages his meds and does most of the driving. Smoking Status: Never smoker Past Alcohol Use History: Rare Past Drug Use History: None Reported - Past Family History Father Family Medical History: Deep Vein Thrombosis (DVT) Son(s) Family Medical History: Cancer Additional Family Medical History / Comment(s): Skin cancer. Mother Family Medical History: Cancer Additional Family Medical History / Comment(s): Mother was healthy Medications and Allergies Home Medications Medication Instructions Recorded Confirmed Type Finasteride [Proscar] 5 mg PO DAILY@99902/09/17 09/20/21 History Tamsulosin HCl [Flomax] 0.4 mg PO DAILY@99902/09/17 09/20/21 History Multivitamins, Thera [Multivitamin 1 tab PO DAILY@99912/31/18 09/20/21 History (formulary)] Atorvastatin Calcium [Lipitor] 20 mg PO HS 10/14/19 09/20/21 History Vit C/E/Zn/Coppr/Lutein/Zeaxan 1 cap PO HS 12/18/19 09/20/21 History [Preservision Areds 2 Softgel] Calcium Carbonate [Tums] 1,000 mg PO DAILY PRN 12/28/19 09/20/21 History Pantoprazole [Protonix] 40 mg PO DAILY@99912/28/19 09/20/21 History Eltrombopag Olamine [Promacta] 25 mg PO DAILY@0800 02/23/20 09/20/21 History Metoprolol Tartrate [Lopressor] 50 mg PO BID@1000,219903/05/20 09/20/21 History Tacrolimus [Prograf] 1 mg PO DAILY@99904/03/20 09/20/21 History mycophenolate mofetiL [Cellcept] 250 mg PO BID@1000,219904/03/20 09/20/21 History predniSONE 10 mg PO DAILY@99904/03/20 09/20/21 History DULoxetine HCL [[place]ymb[place]] [place] [address]/01/20 09/20/21 History INSULIN LISPRO (HumaLOG) [humaLOG] 4 unit SQ AC-TID 12/01/20 09/20/21 History INSULIN LISPRO (HumaLOG) [humaLOG] See Protocol SQ AC-TID 12/01/20 09/20/21 History Insulin Glargine/Lixisenatide 20 unit SQ 1000 12/01/20 09/20/21 History [Soliqua 100 Unit-33 Mcg/ml Pen] Levothyroxine Sodium [Synthroid] 75 mcg PO DAILY@1000 12/01/20 09/20/21 History Tacrolimus [Prograf] 1.5 mg PO HS@2200 12/01/20 09/20/21 History Aspirin 81 mg PO DAILY 07/12/21 09/20/21 History Cyclobenzaprine [Flexeril] 5 mg PO BID@0800,1600 07/12/21 09/20/21 History Gabapentin 300 mg PO QAM 07/12/21 09/20/21 History QUEtiapine [SEROquel] 100 mg PO HS@2200 07/12/21 09/20/21 History Rosuvastatin Calcium [Crestor] 5 mg PO HS 07/12/21 09/20/21 History Sodium Bicarbonate Tab 650 mg PO 1000 07/12/21 09/20/21 History amLODIPine [Norvasc] 2.5 mg PO 1000,2200 09/02/21 09/20/21 History rOPINIRole HCL [Requip] 1 mg PO HS 09/02/21 09/20/21 History cefaDROXiL [Duricef] 09/21/21 History Allergies Allergy/AdvReac Type Severity Reaction Status Date / Time morphine Allergy Severe Itching Verified 09/21/21 10:14 Physical Exam Vitals: Vital Signs Temp Pulse Pulse Resp BP BP Pulse Ox 09/23/21 05:55 121/67 09/23/21 04:25 97.8 F 94 20 165/89 98 09/22/21 20:00 98 F 90 20 134/78 98 09/22/21 11:57 98 F 99 22 124/70 97 Intake and Output 09/22/21 09/23/21 09/23/21 22:59 06:59 14:59 Intake Total 100 340 Output Total 105 100 Balance -5 240 Intake: Intake, IV Titration 100 Amount ceFAZolin 2 gm In Sodium 100 Chloride 0.9% 50 ml @ 100 mls/hr IVPB Q8HR [facility] Rx# :[id number] Oral 100 240 Output: Drainage 105 100 Back 105 100 Other: Voiding Method Indwelling Catheter # Voids 1 3 Results - Lab Results Most recent lab results Calcium 8.8 mg/dL (8.7-10.3) 09/23/21 06:26 09/23/21 06:09/23/21 06:26 Assessment and Plan Plan: Assessment: 1. Status post donor renal allograft in 2002 at [facility]. 2. Chronic kidney disease stage IIIa with baseline creatinine in the range of 1.2-1.7 secondary to long-term Alson urine inhibitor use. GFR at baseline. 3. Status post L3 to L5 decompression with fusion. 4. Hypertension with chronic kidney disease. Stable. 5. Diabetes. 6. Metabolic acidosis secondary to chronic kidney disease. Better. Plan: Maintain home antirejection meds. Prednisone will be resumed if he was taking it outpatient. Check a Prograf level. Encourage oral intake. Avoid nephrotoxins. Continue to monitor renal function and urine output. Thank you for the consultation. I will continue to follow patient with you during his hospital stay.
[2021-09-23 11:22] LABS: Basophils # (A) 0.08 X 10*3/uL (0.00-0.10); Basophils % (A) 0.5 %; Eosinophils # (A) 0.18 X 10*3/uL (0.04-0.35); Eosinophils % (A) 1.2 %; Immature Grans, Automated 0.9 %; Lymphocytes # (A) 2.05 X 10*3/uL (0.90-5.00); Lymphocytes % (A) 13.1 %; Monocytes # (A) 1.95 X 10*3/uL (0.20-1.00); Monocytes % (A) 12.5 %; Neutrophils # (A) 11.21 X 10*3/uL (1.80-7.70); Neutrophils % (A) 71.8 %
[2021-09-23 11:23] LABS: RBC Morphology NORMAL
[2021-09-23 12:17] LABS: Glucose,Whole Blood 114 mg/dL (75-99)
--- NOTE | 2021-09-23 14:24 | P.PN ---
Subjective Progress Note Date: 09/23/21 This is a 80-year-old gentleman with past medical history of atrial fibrillation, not on anticoagulation secondary to multiple falls and syncope, CKD,post renal transplant on immunosuppressive medications,Polio, diabetes mellitus, hypertension, hyperlipidemia, hypothyroidism, parathyroid surgery, anxiety, depression, chronic back pain, status post L3-L5 fusion with decompression, postop day #1. Tolerated procedure well. Pain controlled. Passing flatus, no bowel movement. Dubon catheter present. Reports ambulating with walker. Denies numbness or tingling. Denies chest pain, palpitations or shortness of breath. BUN 28.1, Creatinine 1.4. Afebrile, WBC 12.45. Hemoglobin 10.9, platelets 191. 09/23/2021 continues to do well. Maintained on immunosuppressant medications, evaluated by nephrology with recommendations noted and appreciated. Afebrile, WBC 15.61. Hemoglobin increased, 13, platelets 243. BUN 27, creatinine 1.4. Pain controlled. Good diet intake, denies nausea vomiting or diarrhea. Alternate long-acting insulin substituted for patient's home medication, mild hypoglycemia this morning, resolved. Passing flatus, no bowel movement. Urinating without difficulty. Denies lightheadedness dizziness or focal deficits.denies chest pain, palpitations or increasing shortness of breath. Objective - Vital Signs Vital signs: Vital Signs Temp 97.5 F L 09/23/21 11:09 Pulse 70 09/23/21 11:09 Resp 20 09/23/21 11:09 BP 107/69 09/23/21 11:09 Pulse Ox 97 09/23/21 11:09 Intake & Output 09/22/21 09/23/21 09/23/21 18:59 06:59 18:59 Intake Total 440 Output Total 625 100 Balance -625 340 Weight 90.9 kg Intake: Intake, IV Titration 100 Amount ceFAZolin 2 gm In Sodium 100 Chloride 0.9% 50 ml @ 100 mls/hr IVPB Q8HR [facility] Rx# :[id number] Oral 340 Output: Drainage 205 100 Back 205 100 Urine 420 Uretheral (Dubon) 420 Other: Voiding Method Indwelling Catheter Indwelling Catheter Urinal # Voids 1 3 2 - Exam PHYSICAL EXAM: VITAL SIGNS: As above GENERAL: Alert and oriented 3 ,Sitting up at side of bed, no acute distress, e ating breakfast HEENT: Conjunctivae normal. eyes normal. Oral mucosa moist NECK: Supple, No JVD. CARDIOVASCULAR: S1, S2 regular. Systolic murmur RESPIRATION: Breath sounds diminished in the bases. No rhonchi or crackles. ABDOMEN: Soft, nontender.No guarding. no masses palpable. No rebound, rigidity, guarding .Bowel sounds heard. EXTREMITIES: No edema. no swelling. Diminished pulses. Wearing JAI hose. NERVOUS SYSTEM: Cranial N 2-12 grossly normal. Moves all 4 limbs. No focal deficits. Strength and sensation grossly intact. Skin: Warm and dry, no rash. Dressing on back with prior shadowing, Hemovac present with sanguineous drainage - Labs CBC & Chem 7: 09/23/21 06:26 09/23/21 06:26 Labs: Abnormal Lab Results - Last 24 Hours (Table) 09/22/21 09/22/21 09/23/21 Range/Units 17:10 21:12 06:26 WBC 15.61 H (4.50-10.00) X 10*3/uL RBC 4.36 L (4.40-5.60) X 10*6/uL MCHC 31.4 L (32.0-37.0) g/dL Immature Gran # 0.14 H (0.00-0.04) X 10*3/uL Neutrophils # 11.21 H (1.80-7.70) X 10*3/uL Monocytes # 1.95 H (0.20-1.00) X 10*3/uL BUN (9.0-27.0) mg/dL Est GFR (CKD-EPI)AfAm (60.0-200.0) Est GFR (CKD-EPI)NonAf (60.0-200.0) Glucose (70-110) mg/dL POC Glucose (mg/dL) 226 H 131 H (75-99) mg/dL 09/23/21 09/23/21 09/23/21 Range/Units 06:26 07:31 07:48 WBC (4.50-10.00) X 10*3/uL RBC (4.40-5.60) X 10*6/uL MCHC (32.0-37.0) g/dL Immature Gran # (0.00-0.04) X 10*3/uL Neutrophils # (1.80-7.70) X 10*3/uL Monocytes # (0.20-1.00) X 10*3/uL BUN 27.1 H (9.0-27.0) mg/dL Est GFR (CKD-EPI)AfAm 55.4 L (60.0-200.0) Est GFR (CKD-EPI)NonAf 47.8 L (60.0-200.0) Glucose 60 L (70-110) mg/dL POC Glucose (mg/dL) 57 L 51 L (75-99) mg/dL 09/23/21 09/23/21 09/23/21 Range/Units 08:09 08:36 12:14 WBC (4.50-10.00) X 10*3/uL RBC (4.40-5.60) X 10*6/uL MCHC (32.0-37.0) g/dL Immature Gran # (0.00-0.04) X 10*3/uL Neutrophils # (1.80-7.70) X 10*3/uL Monocytes # (0.20-1.00) X 10*3/uL BUN (9.0-27.0) mg/dL Est GFR (CKD-EPI)AfAm (60.0-200.0) Est GFR (CKD-EPI)NonAf (60.0-200.0) Glucose (70-110) mg/dL POC Glucose (mg/dL) 68 L 104 H 114 H (75-99) mg/dL Assessment and Plan Assessment: Chronic back pain, Status post L3-L5 fusion with decompression Acute on chronic anemia, postop( hemoglobin 16 07/12/2021), improving. Leukocytosis, suspect reactive Chronic persistent Atrial fibrillation not on any anti-coagulation because of his multiple falls and syncope in the past Chronic renal failure stage IIIa, History of renal transplant. Baseline creatinine 1.2-1.7 Type 2 diabetes mellitus, A1c 5.9 CAD, history of CABG Hypertension Hyperlipidemia Hypothyroidism History of slow growing prostate cancer, under surveillance with Dr. Craig Depression Anxiety Plan: Continue current medication regime ,monitoring and symptomatic treatment. LSO Brace ordered, not yet arrived .maintained on immunosuppressive medicati ons.Maintain aggressive pulmonary toileting with incentive spirometer reinforced. PT/OT. Pain management. Discharge planning in progress for tomorrow per primary. The impression and plan of care has been dictated as directed. : I performed a history and examination of this patient, discussed the same with the dictator. I agree with the dictator's note ,documented as a scribe. Any additional findings or plans will be noted.
[2021-09-23] MEDS: SENNOSIDES-DOCUSATE SODIUM 1 EACH TAB PO PRN (16:17)
[2021-09-23 17:17] LABS: Glucose,Whole Blood 213 mg/dL (75-99)
[2021-09-23 21:00] LABS: Glucose,Whole Blood 153 mg/dL (75-99)
[2021-09-23] MEDS ORDERED: INSULIN DETEMIR (LEVEMIR) 100 UNIT/ML SYR SQ SCH (21:00)
[2021-09-23] MEDS ORDERED: ATORVASTATIN 10 MG TAB PO SCH (21:00)
[2021-09-23] MEDS: VIT A,C & E-LUTEIN-MINERALS 1 EACH TAB PO SCH (21:21)
[2021-09-23] MEDS: TACROLIMUS 0.5 MG CAP PO SCH (21:21)
[2021-09-23] MEDS ORDERED: QUEtiapine 100 MG TAB PO SCH (22:00)
[2021-09-24] MEDS: ACETAMINOPHEN TAB 325 MG TAB PO SCH ×2 (05:25→13:01)
[2021-09-24] MEDS: LACTATED RINGERS 1,000 ML IV SCH (05:34)
[2021-09-24 07:15] LABS: Glucose,Whole Blood 170 mg/dL (75-99)
[2021-09-24] MEDS: INSULIN ASPART (NovoLOG) 100 UNIT/ML VIAL SQ SCH ×2 (09:22→13:01)
[2021-09-24] MEDS: ELTROMBOPAG OLAMINE 25 MG PO SCH (09:22)
[2021-09-24] MEDS: TACROLIMUS 1 MG CAP PO SCH (09:24)
[2021-09-24] MEDS: amLODIPine 2.5 MG TAB PO SCH (09:24)
[2021-09-24] MEDS: HEPARIN SODIUM,PORCINE/PF 5,000 UNIT/0.5 ML SYRINGE SQ SCH (09:24)
[2021-09-24] MEDS: TAMSULOSIN 0.4 MG CAP.ER.24H PO SCH (09:25)
[2021-09-24] MEDS: MULTIVITAMINS, THERA 1 EACH TAB PO SCH (09:25)
[2021-09-24] MEDS: PANTOPRAZOLE 40 MG TABLET PO SCH (09:25)
[2021-09-24] MEDS: FINASTERIDE 5 MG TAB PO SCH (09:25)
[2021-09-24] MEDS: METOPROLOL TARTRATE 50 MG TAB PO SCH (09:25)
[2021-09-24] MEDS: SODIUM BICARBONATE TAB 650 MG TAB PO SCH (09:25)
[2021-09-24] MEDS: GABAPENTIN 300 MG CAP PO SCH (09:25)
[2021-09-24] MEDS: LEVOTHYROXINE 75 MCG TAB PO SCH (09:25)
[2021-09-24] MEDS: DULoxetine HCL 60 MG CAPSULE.DR PO SCH (09:26)
[2021-09-24 09:59] LABS: HCT 35.5 % (39.6-50.0); HGB 10.8 g/dL (13.0-17.0); MCH 29.3 pg (27.0-32.0); MCHC 30.4 g/dL (32.0-37.0); MCV 96.5 fL (80.0-97.0); Mean Platelet Volume 10.6 fL (9.5-12.2); NRBC Per 100 WBC 0 /100 WBCS (0.0-0.0); Platelet Count 131 X 10*3/uL (140-440); RBC 3.68 X 10*6/uL (4.40-5.60); WBC 7.96 X 10*3/uL (4.50-10.00)
--- NOTE | 2021-09-24 10:30 | P.PN ---
Subjective Progress Note Date: 09/24/21 Principal diagnosis: Status post L3-L5 decompression and fusion Patient evaluated today at bedside, he is resting comfortably. He was actually just waking up the patient seems very drowsy. His did call while I was in the room, I did discuss with her the plan for discharge today. Patient has not had a bowel movement yet, he is passing quite a bit of gas. He is urinating with no difficulties. He did receive the LSO brace and is utilizing that when up and ambulating. He denies headaches, lightheadedness, chest pain or shortness of breath. Objective - Vital Signs Vital signs: Vital Signs Temp 98.2 F 09/24/21 05:35 Pulse 98 09/24/21 09:34 Resp 16 09/24/21 05:35 BP 116/72 09/24/21 09:34 Pulse Ox 92 L 09/24/21 09:34 Intake & Output 09/23/21 09/24/21 09/24/21 18:59 06:59 18:59 Output Total 155 340 300 Balance -155 -340 -300 Output: Drainage 155 40 Back 155 40 Urine 300 300 Other: Voiding Method Urinal Urinal Diaper # Voids 1 1 # Bowel Movements 0 - Exam Gen: AOx3, NAD VSS stable at this time Integument: Dressing was changed today bedside, the drain was also removed. Incision is well healing, leanne are all in good position and condition. Palpation: Minimal tenderness with palpation to the midline and paraspinal region of the lumbar spine ROM: Full range of motion in all major muscle groups of the bilateral upper and lower extremities Sensory Exam: Senory exam to light touch is intact C5-T1 Senosry exam to light touch is intact L2-S1 Motor: 55 strength appreciated in the bilateral upper extremities with shoulder elevation, shoulder abduction, elbow extension, elbow flexion, wrist extension, wrist flexion, manager sap 4-5 strength appreciated in the bilateral lower extremities with hip flexion, knee extension, knee flexion, plantar flexion, dorsiflexion, EHL, FHL Reflexes: Negative Ingris bilaterally Negative Babinski bilateral Negative clonus bilateral - Labs CBC & Chem 7: 09/24/21 06:06 09/23/21 06:26 Labs: Abnormal Lab Results - Last 24 Hours (Table) 09/23/21 09/23/21 09/23/21 Range/Units 06:26 12:14 17:10 RBC (4.40-5.60) X 10*6/uL Hgb (13.0-17.0) g/dL Hct (39.6-50.0) % MCHC (32.0-37.0) g/dL Plt Count (140-440) X 10*3/uL Immature Gran # 0.14 H (0.00-0.04) X 10*3/uL Neutrophils # 11.21 H (1.80-7.70) X 10*3/uL Monocytes # 1.95 H (0.20-1.00) X 10*3/uL POC Glucose (mg/dL) 114 H 213 H (75-99) mg/dL 09/23/21 09/24/21 09/24/21 Range/Units 20:47 06:06 07:13 RBC 3.68 L (4.40-5.60) X 10*6/uL Hgb 10.8 L (13.0-17.0) g/dL Hct 35.5 L (39.6-50.0) % MCHC 30.4 L (32.0-37.0) g/dL Plt Count 131 L (140-440) X 10*3/uL Immature Gran # (0.00-0.04) X 10*3/uL Neutrophils # (1.80-7.70) X 10*3/uL Monocytes # (0.20-1.00) X 10*3/uL POC Glucose (mg/dL) 153 H 170 H (75-99) mg/dL Assessment and Plan Assessment: Postoperative day #3 status post L3-L5 decompression with fusion Plan: Pain control, Leming 5 mg/325 mg for discharge DVT prophylaxis, heparin 5000 units every 12 during inpatient stay Discussed wound care at length with the patient today. He may remove the current dressing was placed today and about 3 days. After that point he can shower directly over the incision. Continue use of LSO brace while ambulating Continue with PT, weightbearing as tolerated with walker Medical recommendations Patient will be sent home on multiple medications for stool softeners, he was notified to contact our office to report back to the hospital if he does not have a bowl movement in the next 3 days Discharge planning: Plan for discharge home today Time with Patient: Less than 30
--- NOTE | 2021-09-24 10:54 | P.PN ---
Subjective Patient is seen in follow-up for chronic kidney disease and renal transplant management. Renal function has been stable this admission. Resting in bed. Has been voiding. No chest pain or shortness of breath. Blood pressure stable. On room air. Vital signs are stable. General: The patient appeared well nourished and normally developed. HEENT: Head exam is unremarkable. LUNGS: Breath sounds decreased. HEART: Rate and Rhythm are regular. ABDOMEN: Soft, no distention. EXTREMITITES: No edema. Objective - Vital Signs Vital signs: Vital Signs Temp 98.2 F 09/24/21 05:35 Pulse 98 09/24/21 09:34 Resp 16 09/24/21 05:35 BP 116/72 09/24/21 09:34 Pulse Ox 92 L 09/24/21 09:34 Intake & Output 09/23/21 09/24/21 09/24/21 18:59 06:59 18:59 Output Total 155 340 300 Balance -155 -340 -300 Output: Drainage 155 40 Back 155 40 Urine 300 300 Other: Voiding Method Urinal Urinal Diaper # Voids 1 1 # Bowel Movements 0 - Labs CBC & Chem 7: 09/24/21 06:06 09/23/21 06:26 Labs: Abnormal Lab Results - Last 24 Hours (Table) 09/23/21 09/23/21 09/23/21 Range/Units 06:26 12:14 17:10 RBC (4.40-5.60) X 10*6/uL Hgb (13.0-17.0) g/dL Hct (39.6-50.0) % MCHC (32.0-37.0) g/dL Plt Count (140-440) X 10*3/uL Immature Gran # 0.14 H (0.00-0.04) X 10*3/uL Neutrophils # 11.21 H (1.80-7.70) X 10*3/uL Monocytes # 1.95 H (0.20-1.00) X 10*3/uL POC Glucose (mg/dL) 114 H 213 H (75-99) mg/dL 09/23/21 09/24/21 09/24/21 Range/Units 20:47 06:06 07:13 RBC 3.68 L (4.40-5.60) X 10*6/uL Hgb 10.8 L (13.0-17.0) g/dL Hct 35.5 L (39.6-50.0) % MCHC 30.4 L (32.0-37.0) g/dL Plt Count 131 L (140-440) X 10*3/uL Immature Gran # (0.00-0.04) X 10*3/uL Neutrophils # (1.80-7.70) X 10*3/uL Monocytes # (0.20-1.00) X 10*3/uL POC Glucose (mg/dL) 153 H 170 H (75-99) mg/dL Assessment and Plan Plan: Assessment: 1. Status post donor renal allograft in 2002 at [facility]. 2. Chronic kidney disease stage IIIa with baseline creatinine in the range of 1.2-1.7 secondary to long-term calcineurin inhibitor use. GFR at baseline. 3. Status post L3 to L5 decompression with fusion. 4. Hypertension with chronic kidney disease. Stable. 5. Diabetes. 6. Metabolic acidosis secondary to chronic kidney disease. Better. Plan: Maintain home antirejection meds. Follow-up prograf level. Encouraged oral intake. Avoid nephrotoxins. Continue to monitor renal function and urine output. Hold amlodipine for systolic blood pressure less than 120. Follow-up morning labs.
[2021-09-24] MEDS ORDERED: predniSONE 10 MG TAB PO SCH (11:01)
[2021-09-24 12:01] LABS: Glucose,Whole Blood 202 mg/dL (75-99)
[2021-09-24 12:23] LABS: African American GFR (CKD) 50.9 (60.0-200.0); Anion Gap 11.5 mmol/L (10.00-18.00); BUN/Creat Ratio 17.47 Ratio (12.00-20.00); Blood Urea Nitrogen 26.2 mg/dL (9.0-27.0); Calcium 7.7 mg/dL (8.7-10.3); Carbon Dioxide 20.5 mmol/L (20.0-27.5); Potassium 4.2 mmol/L (3.5-5.5)
[2021-09-24 13:06] VITALS: BP 140/77; PULSE 80; RESP 18; TEMP 98.8
--- NOTE | 2021-09-24 15:05 | P.PN ---
Subjective Progress Note Date: 09/24/21 This is a 80-year-old gentleman with past medical history of atrial fibrillation, not on anticoagulation secondary to multiple falls and syncope, CKD,post renal transplant on immunosuppressive medications,Polio, diabetes mellitus, hypertension, hyperlipidemia, hypothyroidism, parathyroid surgery, anxiety, depression, chronic back pain, status post L3-L5 fusion with decompression, postop day #1. Tolerated procedure well. Pain controlled. Passing flatus, no bowel movement. Dubon catheter present. Reports ambulating with walker. Denies numbness or tingling. Denies chest pain, palpitations or shortness of breath. BUN 28.1, Creatinine 1.4. Afebrile, WBC 12.45. Hemoglobin 10.9, platelets 191. 09/23/2021 continues to do well. Maintained on immunosuppressant medications, evaluated by nephrology with recommendations noted and appreciated. Afebrile, WBC 15.61. Hemoglobin increased, 13, platelets 243. BUN 27, creatinine 1.4. Pain controlled. Good diet intake, denies nausea vomiting or diarrhea. Alternate long-acting insulin substituted for patient's home medication, mild hypoglycemia this morning, resolved. Passing flatus, no bowel movement. Urinating without difficulty. Denies lightheadedness dizziness or focal deficits.denies chest pain, palpitations or increasing shortness of breath. 09/24/2021 pain controlled. Good diet intake, passing flatus, no bowel movement. LSO brace arrived. Denies chest pain, palpitations or shortness of breath. Afebrile, normal WBC, hemoglobin 10.8. Blood sugars controlled. Maintaining O2 sats in the 90s on room air. Denies chest pain, palpitations or shortness of breath. Ambulating, tolerating exertion well. Denies lightheadedness, dizziness or focal deficits. BUN 26.2, creatinine 1.5. Objective - Vital Signs Vital signs: Vital Signs Temp 98.8 F 09/24/21 12:27 Pulse 80 09/24/21 12:27 Resp 18 09/24/21 12:27 BP 140/77 09/24/21 12:27 Pulse Ox 90 L 09/24/21 12:27 Intake & Output 09/23/21 09/24/21 09/24/21 18:59 06:59 18:59 Output Total 155 340 300 Balance -155 -340 -300 Output: Drainage 155 40 Back 155 40 Urine 300 300 Other: Voiding Method Urinal Urinal Urinal Diaper Diaper # Voids 1 1 # Bowel Movements 0 - Exam PHYSICAL EXAM: VITAL SIGNS: As above GENERAL: Alert and oriented 3 ,Sitting up at side of bed, no acute distress, eating breakfast HEENT: Conjunctivae normal. eyes normal. Oral mucosa moist NECK: Supple, No JVD. CARDIOVASCULAR: S1, S2 regular. Systolic murmur RESPIRATION: Breath sounds diminished in the bases. No rhonchi or crackles. ABDOMEN: Soft, nontender.No guarding. no masses palpable. No rebound, rigidity, guarding .Bowel sounds heard. EXTREMITIES: No edema. no swelling. Diminished pulses. Wearing JAI hose. NERVOUS SYSTEM: Cranial N 2-12 grossly normal. Moves all 4 limbs. No focal deficits. Strength and sensation grossly intact. Skin: Warm and dry, no rash. Dressing on back with prior shadowing, Hemovac present with sanguineous drainage - Labs CBC & Chem 7: 09/24/21 06:06 09/24/21 06:06 Labs: Abnormal Lab Results - Last 24 Hours (Table) 09/23/21 09/23/21 09/24/21 Range/Units 17:10 20:47 06:06 RBC 3.68 L (4.40-5.60) X 10*6/uL Hgb 10.8 L (13.0-17.0) g/dL Hct 35.5 L (39.6-50.0) % MCHC 30.4 L (32.0-37.0) g/dL Plt Count 131 L (140-440) X 10*3/uL Est GFR (CKD-EPI)AfAm (60.0-200.0) Est GFR (CKD-EPI)NonAf (60.0-200.0) Glucose (70-110) mg/dL POC Glucose (mg/dL) 213 H 153 H (75-99) mg/dL Calcium (8.7-10.3) mg/dL 09/24/21 09/24/21 09/24/21 Range/Units 06:06 07:13 12:00 RBC (4.40-5.60) X 10*6/uL Hgb (13.0-17.0) g/dL Hct (39.6-50.0) % MCHC (32.0-37.0) g/dL Plt Count (140-440) X 10*3/uL Est GFR (CKD-EPI)AfAm 50.9 L (60.0-200.0) Est GFR (CKD-EPI)NonAf 44.0 L (60.0-200.0) Glucose 162 H (70-110) mg/dL POC Glucose (mg/dL) 170 H 202 H (75-99) mg/dL Calcium 7.7 L (8.7-10.3) mg/dL Assessment and Plan Assessment: Chronic back pain, Status post L3-L5 fusion with decompression Acute on chronic anemia, postop( hemoglobin 16 07/12/2021), improving. Leukocytosis, reactive Chronic persistent Atrial fibrillation not on any anti-coagulation because of his multiple falls and syncope in the past Chronic renal failure stage IIIa, History of renal transplant. Baseline creatinine 1.2-1.7 Type 2 diabetes mellitus, A1c 5.9 CAD, history of CABG Hypertension Hyperlipidemia Hypothyroidism History of slow growing prostate cancer, under surveillance with Dr. Craig Depression Anxiety Plan: Continue current medication regime ,monitoring and symptomatic treatment. Discharge planning in progress as per primary. Aggressive pulmonary toileting, continue with incentive spirometer as previously advised. Close monitoring of renal function. Continue on home antirejection medication regimen. Pain management. Follow-up with PCP in one week. The impression and plan of care has been dictated as directed. : I performed a history and examination of this patient, discussed the same with the dictator. I agree with the dictator's note ,documented as a scribe. Any additional findings or plans will be noted.
--- NOTE | 2021-09-25 14:57 | P.DS ---
<Bryan Pappas - Last Filed: 09/24/21 10:30> Providers Expected date of discharge: 09/24/21 Hospital Course: Date of admission: 09/21/2021 Date of discharge: 09/24/2021 Admission diagnosis: Status post L3-L5 decompression with fusion Discharge diagnosis: Same Attending physician: Dr. Cuellar Surgical procedures: L3-L5 decompression with fusion Brief history: Patient is a 80-year-old male who was evaluated in the outpatient setting by Dr. Cuellar for his chronic low back pain. It was determined the patient had severe neurogenic claudication with L3-L4 central stenosis and spondylosis. He was also noted to have L4-L5 spondylosis with foraminal stenosis. Conservative management did not result in adequate symptomatic relief, he was scheduled for a elective L3-L5 decompression with fusion. Hospital course: Details of patient's surgery can be found in operative report. Patient tolerated the procedure well and was subsequently transported to orthopedic floor. Patient's orthopeidc and medical care was provided daily. Patient had daily laboratory tests performed for evaluation of overall blood counts. Patient had daily physical therapy to include strengthening range of motion as well as education with walker ambulation. Patient was treated with heparin for their postoperative DVT prophylaxis during their inpatient stay. Patient was noted to have a relatively uneventful postoperative course. Patient reported satisfactory pain control with oral pain medications by postoperative day 0. Patient showed satisfactory progress with physical therapy. Patient moved steadily through the program and had no difficulty meeting the goals by postoperative day 3. Given patient's otherwise satisfactory course and having met physical therapy goals, plan is to discharge patient home on postoperative day 3. Discharge condition/disposition: Patient will be discharged home in stable condition. Discharge medications: Instructions are given on resumption of patient's normal daily medications per primary care recommendation, in addition patient will be prescribed Gibbon 5 mg/325 mg, senna S, MiraLAX 17 g, Duricef 500 mg. Discharge instructions: 1. Okay to remove bandage on 09/27/2021. At that time okay to shower directly over the incision. Recommend use of a basic gauze bandage over the incision 2. Weight-bear as tolerated with walker / cane until follow-up. Utilize an LSO brace when ambulating 3. Ice and elevate when necessary. Do not exceed 20 minutes per hour with ice pack. 4. Utilize compression sleeve until seen at first follow up appointment. 5. Visiting nursing care. 6. Home physical therapy 7. Pain medication has potential to cause constipation. Increase oral fluid and fiber intake. Contact primary care provider if you have not had a bowel movement within 48 hours after discharge 8. No anti-inflammatory medication until discussed at first post operative visit, this including Motrin, Aleve, Mobic, Diclofenac 9. Follow up with your primary care doctor 7-10 days after discharge. 10. Contact [facility] with any questions, . Procedures: L3-L5 decompression with fusion Patient Condition at Discharge: Good Plan - Discharge Summary Discharge Rx Participant: Yes New Discharge Prescriptions: New HYDROcodone/APAP 5-325MG [Gibbon 5-325] 1 - 2 tab PO Q6HR PRN #42 tab PRN Reason: Pain cefaDROXiL [Duricef] 500 mg PO Q12HR #14 cap polyethylene glycoL 3350 [Miralax] 17 gm PO DAILY PRN #30 packet PRN Reason: Constipation Sennosides/Docusate Sodium [Senna-S 8.6-50 mg Tablet] 2 each PO HS PRN #40 tablet PRN Reason: Constipation Continue Finasteride [Proscar] 5 mg PO DAILY@1000 Tamsulosin HCl [Flomax] 0.4 mg PO DAILY@1000 Multivitamins, Thera [Multivitamin (formulary)] 1 tab PO DAILY@1000 Atorvastatin Calcium [Lipitor] 20 mg PO HS Vit C/E/Zn/Coppr/Lutein/Zeaxan [Preservision Areds 2 Softgel] 1 cap PO HS Pantoprazole [Protonix] 40 mg PO DAILY@1000 Calcium Carbonate [Tums] 1,000 mg PO DAILY PRN PRN Reason: Heartburn Eltrombopag Olamine [Promacta] 25 mg PO DAILY@0800 Metoprolol Tartrate [Lopressor] 50 mg PO BID@1000,2200 mycophenolate mofetiL [Cellcept] 250 mg PO BID@1000,2200 predniSONE 10 mg PO DAILY@1000 Tacrolimus [Prograf] 1 mg PO DAILY@1000 INSULIN LISPRO (HumaLOG) [humaLOG] 4 unit SQ AC-TID Sodium Bicarbonate Tab 650 mg PO 1000 QUEtiapine [SEROquel] 100 mg PO HS@2200 Gabapentin 300 mg PO QAM rOPINIRole HCL [Requip] 1 mg PO HS Insulin Glargine/Lixisenatide [Soliqua 100 Unit-33 Mcg/ml Pen] 20 unit SQ 1000 Tacrolimus [Prograf] 1.5 mg PO HS@2200 Levothyroxine Sodium [Synthroid] 75 mcg PO DAILY@1000 DULoxetine HCL [Cymbalta] 120 mg PO 1000 INSULIN LISPRO (HumaLOG) [humaLOG] See Protocol SQ AC-TID Aspirin 81 mg PO DAILY Rosuvastatin Calcium [Crestor] 5 mg PO HS Cyclobenzaprine [Flexeril] 5 mg PO BID@0800,1600 amLODIPine [Norvasc] 2.5 mg PO 1000,2200 Discontinued cefaDROXiL [Duricef] Discharge Medication List Finasteride [Proscar] 5 mg PO DAILY@1000 02/09/17 [History] Tamsulosin HCl [Flomax] 0.4 mg PO DAILY@1000 02/09/17 [History] Multivitamins, Thera [Multivitamin (formulary)] 1 tab PO DAILY@99912/31/18 [History] Atorvastatin Calcium [Lipitor] 20 mg PO HS 10/14/19 [History] Vit C/E/Zn/Coppr/Lutein/Zeaxan [Preservision Areds 2 Softgel] 1 cap PO HS 12/18/19 [History] Calcium Carbonate [Tums] 1,000 mg PO DAILY PRN 12/28/19 [History] Pantoprazole [Protonix] 40 mg PO DAILY@1000 12/28/19 [History] Eltrombopag Olamine [Promacta] 25 mg PO DAILY@0800 02/23/20 [History] Metoprolol Tartrate [Lopressor] 50 mg PO BID@1000,219903/05/20 [History] Tacrolimus [Prograf] 1 mg PO DAILY@99904/03/20 [History] mycophenolate mofetiL [Cellcept] 250 mg PO BID@999,219904/03/20 [History] predniSONE 10 mg PO DAILY@99904/03/20 [History] DULoxetine HCL [Cymbalta] 120 mg PO 1000 12/01/20 [History] INSULIN LISPRO (HumaLOG) [humaLOG] 4 unit SQ AC-TID 12/01/20 [History] INSULIN LISPRO (HumaLOG) [humaLOG] See Protocol SQ AC-TID 12/01/20 [History] Insulin Glargine/Lixisenatide [Soliqua 100 Unit-33 Mcg/ml Pen] 20 unit SQ 1000 12/01/20 [History] Levothyroxine Sodium [Synthroid] 75 mcg PO DAILY@1000 12/01/20 [History] Tacrolimus [Prograf] 1.5 mg PO HS@2200 12/01/20 [History] Aspirin 81 mg PO DAILY 07/12/21 [History] Cyclobenzaprine [Flexeril] 5 mg PO BID@0800,1600 07/12/21 [History] Gabapentin 300 mg PO QAM 07/12/21 [History] QUEtiapine [SEROquel] 100 mg PO HS@2200 07/12/21 [History] Rosuvastatin Calcium [Crestor] 5 mg PO HS 07/12/21 [History] Sodium Bicarbonate Tab 650 mg PO 1000 07/12/21 [History] amLODIPine [Norvasc] 2.5 mg PO 1000,2200 09/02/21 [History] rOPINIRole HCL [Requip] 1 mg PO HS 09/02/21 [History] HYDROcodone/APAP 5-325MG [Gibbon 5-325] 1 - 2 tab PO Q6HR PRN #42 tab 09/24/21 [Rx] Sennosides/Docusate Sodium [Senna-S 8.6-50 mg Tablet] 2 each PO HS PRN #40 table t 09/24/21 [Rx] cefaDROXiL [Duricef] 500 mg PO Q12HR #14 cap 09/24/21 [Rx] polyethylene glycoL 3350 [Miralax] 17 gm PO DAILY PRN #30 packet 09/24/21 [Rx] Follow up Appointment(s)/Referral(s): Care,[facility] [NON-STAFF] - 1 Week Narinder Rosenberg DO [Primary Care Provider] - 10/01/21 2:40 pm Brent Cuellar DO [Doctor of Osteopathic Medicine] - 10/08/21 9:20 am Patient Instructions/Handouts: Cefadroxil (By mouth), Hydrocodone/Acetaminophen (By mouth), Laxative, Stool Softeners (By mouth), Polyethylene Glycol 3350 (By mouth), Lumbar Spinal Fusion (DC) Activity/Diet/Wound Care/Special Instructions: Spine Discharge and Recovery Instructions All medication refills should be obtained through your primary care doctor or your clinic spine surgeon. Please discuss prescription refills at your follow up appointment. Do not call the hospital for medication refills. Dressing: Leave your dressing in place for a total of 5 days post operatively. Then you may remove your dressing and leave open to air. Keep the area clean and if not able to keep area clean, then cover with sterile gauze and tape. Showering: You may shower 3 days after your procedure allowing soap and water to run over incision. Do not scrub. Do not soak. Blot dry. Follow up: Please confirm a follow up appointment with your surgeon 3 weeks post operatively. Please make an appointment to follow up with your PCP in 1-2 weeks after surgery for evaluation 3 phase, 3-week plan POST OP WEEKS 1-3 1. Lifting/carrying/pushing/pulling limited to less than 5 pounds. 2. Do not sit for longer than 15 minutes at one time. Get up and walk around. Prolonged sitting is NOT advised. If you lay down, see if you can tolerate laying down on you front (belly side) 3. Walk for periods of 15 minutes = 1 mile but no longer; do it multiple times times each day. 4. Ice your low back after activity. POST OP WEEKS 3-6 1. Lifting limited to less than 20 pounds. 2. Do not sit for longer than 30 minutes at a time. Frequently change positions. Use a sit-to stand workstation or take frequent breaks from sitting if you have returned to work. 3. Walk for 30 minutes each day. If possible, do these three or more times a day POST OP WEEKS 6+ At your 6-week appointment we will give you a physical therapy referral to focus on a core stabilization and strengthening program. You should also work on leg & buttock strengthening, hamstring & quadriceps stretching, and continue a low impact aerobic activity program such as swimming, walking, or riding a stationary bicycle. During the initial 6 weeks after your surgery, you are at the highest risk of re-injuring your spine. You should generally avoid BLTs (bending, lifting and twisting combination motions) and follow the above guidelines to reduce the chance of reinjury. You can anticipate post op appointments in our office at approximately 3 weeks and 6 weeks after your surgery. INCISION CARE: If your incision is not draining you do NOT need to cover it with a dressing. Keep your incision clean, dry and intact. In most cases, we apply skin glue, leanne or sutures to the incision at the time of surgery. This will be like a crust or have the appearance of a scab and will fall off in time on its own. The stitches or leanne need to be removed at 3 weeks post op appointment. You may begin to shower 3 days after surgery (this allows the glue to munguia well). However, please avoid scrubbing the incision site or peeling off any of the skin glue. This will ensure optimal healing of your incision. Also, during this time avoid soaking the incision area in water - this includes swimming pools, hot tubs or baths. No ointments, lotions or oils on the incision until your surgeon allows. Leave leanne, sutures or glue in place. Neurological dysfunction that comes on suddenly can also be a sign of a stroke. Below some common symptoms of a stroke are listed: B - balance difficulty such as sudden onset walking or leaning to one side - NEW E - eye problem such as sudden double vision or trouble seeing on one side - NEW F - Facial weakness or numbness on one side - NEW A - Arm or leg weakness or numbness on one side - NEW S - Slurred speech or difficulty with word finding - NEW T - Time is BRAIN! Call 911 as soon as you recognize these symptoms Diet: Consume a regular diet rich in vegetables and lean protein such as chicken or fish. You should consume in a ratio of approximately 20% fats|40% carbohydrates|40%protein. Vegetables, sweet potatoes, brown rice or quinoa are examples of good carbohydrates. Chips, white bread, cookies and sweets/sugar are examples of bad carbohydrates. Limit your bad carbs, go wild with good carbs. "Life's Simple 7" Guidelines as per [place] [employer] These will help you reclaim your life after surgery and rug cutter helper in your recovery, keeping in mind your restrictions. (1) Get Active. Physical activity can help people lose weight, control high blood pressure and cholesterol, feel emotionally better, and sleep better. (2) Control Cholesterol. Avoid a diet high in saturated fat, trans fat, & cholesterol. Limit whole milk & cream, ice cream, butter, egg yolks, processed meats (like sausage and hot dogs), and fatty meats. Choose healthy foods that are low in saturated fat, trans fat and cholesterol which include: Fruits and vegetables, fiber rich grain products (like whole grain pasta and brown rice), lean meat such as chicken, fish, nuts, seeds, and legumes. (3) Eat Better. Eat small portions. Shop at the grocery with a list and do not stray from it. Tips for a healthy diet include: Limit sodium intake to less than 1500mg daily, avoid prepackaged, processed, and fast foods, choose a d iet rich in fruits, vegetables, and whole grain, high fiber foods, and limit saturated & cholesterol in your diet. (4) Manage Blood Pressure. If you have high blood pressure, you should have a cuff at home so that you can check your blood pressure regularly. Be sure you have a good cuff. An arm one is generally better than a wrist one. Bring the cuff to a doctor's appointment to validate that the measurements that your cuff are taking are accurate. Take your blood pressure twice daily when you are sitting down and relaxing. Record the numbers in a log and bring this log with you to your doctors' appointments. (5) Lose Weight if your BMI is above 25. A healthy BMI is between 19-25. To calculate Your BMI, you may use a Standard BMI Calculator on the NIH BMI website: <www.nhlbi.nih.gov/guidelines/obesity/BMI/bmicalc.htm>. Weigh oneself daily. If you are overweight, set a goal to lose weight. A pound a week loss if needed is a good target. (6) Reduce Blood Sugar. Limit foods and liquids with "added sugars." (Added sugars include sucrose, fructose, glucose, maltose, dextrose, high fructose corn syrup, corn syrup, concentrated fruit juice and honey). (7) Stop Smoking. If you smoke, quitting smoking is one of the best things that you can do for your health. Smoking increases your risk of heart attack, stroke, and peripheral vascular disease, which is a build-up of plaque in your arteries. Please discard all the cigarettes and lighters in your house. Have a plan for what you will do when you have the urge to smoke. Direct and second- hand smoke shortens your life as well as the lives of your family, friends and others around you. For your health and the health of those around you, please consider quitting! Proper Bending Body Mechanics: Maintain a wide stance with one foot slightly in front of the other. Keep your back straight. Bend utilizing the strength in your hips and knees. Do not bend at the waist. Maintain the lifted object at your waist-level close to your body. Avoid lifting weight that causes immediately pain or pain anywhere in the body afterwards. Smoking/Nicotine If there was ever one thing that you could do to increase your overall health, decrease your risk of cardiovascular problems by about 39% the second you make the choice, it is to STOP SMOKING. Your body's most instant gratification is the second you stop smoking. We have all heard the studies, read the articles but it is true, smoking is extremely bad for your overall health, and moreover it is detrimental to your bone health. Nicotine, IN ANY FORM, kills bone cells, prevents your body from healing fractures, and significantly prolongs healing after surgery. In spine surgery specifically, it increases your risk of not healing your bones to create a fusion and increases your risk of having a revision surgery due to this up to 60%. I know it is hard. I know it feels impossible. But there are ways. Take control of your life. We are here to help you through it. And when you are ready, ask us and we can direct you to help if you desire. Use the START Plan to Quit Smoking (please visit the Helpguide.org website listed below for more information): S = Set a quit date. Choose a date within the next 2 weeks, so you have enough time to prepare without losing your motivation to quit. If you mainly smoke at work, quit on the weekend, so you have a few days to adjust to the change. T = Tell family, friends, and co-workers that you plan to quit. Let your friends and family in on your plan to quit smoking and tell them you need their support and encouragement to stop. Look for a quit erika who wants to stop smoking as well. You can help each other get through the rough times. A = Anticipate and plan for the challenges you'll face while quitting. Most people who begin smoking again do so within the first 3 months. You can help yourself make it through by preparing ahead for common challenges, such as nicotine withdrawal and cigarette cravings. R = Remove cigarettes and other tobacco products from your home, car, and work. Throw away all your cigarettes (no emergency pack!), lighters, ashtrays, and matches. Wash your clothes and freshen up anything that smells like smoke. Shampoo your car, clean your drapes and carpet, and steam your furniture. T = Talk to your doctor about getting help to quit. Your doctor can prescribe medication to help with withdrawal and suggest other alternatives. If you can't see a doctor, you can get many products over the counter at your local pharmacy or grocery store, including the nicotine patch, nicotine lozenges, and nicotine gum. Resources for Quitting Smoking: <https: //www.[place].gov/documents/[facility]/Quit_Tobacco_Resources_for_patients_313480_7.p df> Supplementation: Take recommended dosages of Vitamin D and Calcium to help fortify your bones and help them to heal. See your health maintenance packet for dosages and recommended levels. DVT/VTE prophylaxis: You will be given compression stockings from the hospital. Wear these daily for the first two weeks after surgery. You may take them off at night. You may be prescribed a medication to help thin your blood. Take this as directed. If you are not prescribed this medication, early and frequent ambulation has been shown to be the best prophylaxis to deep vein thrombosis and sequelae related to this event. Discharge/Stand Alone Forms: Who Do I Call?, Assisted Living Facilities, Community Resources, Help In The Home Discharge Disposition: HOME WITH HOME HEALTH SERVICES <Brent Cuellar - Last Filed: 09/25/21 14:57> Providers Date of admission: 09/21/21 09:25 Attending physician: Brent Cuellar DO Consults: 09/21/21 17:53 Consult Physician Routine Consulting Provider: Narinder Rosenberg Consult Reason/Comments: Medical Management s/p L3-L5 decompression & fusion Do you want consulting provider notified?: Yes 09/22/21 17:45 Consult Physician Routine Consulting Provider: Carolina Wolfe Consult Reason/Comments: post op OR, HX of renal TX, Do you want consulting provider notified?: Yes Primary care physician: Narinder Rosenberg
--- NOTE | 2021-09-30 10:44 | P.OP ---
Date of Procedure: 09/21/21 Preoperative Diagnosis: 1. L3-L4 severe spondylosis with stenosis 2. L3-L5 spondylosis with foraminal stenosis 3. Neurogenic claudication 4. LE radiculopathy 5. Le weakness Postoperative Diagnosis: 1. L3-L4 severe spondylosis with stenosis 2. L3-L5 spondylosis with foraminal stenosis 3. Neurogenic claudication 4. LE radiculopathy 5. Le weakness Procedure(s) Performed: 1. Posterior L3-L4 and L4-L5 interbody and posterior lateral fusion combined (95320, 25898) 2. Insertion of biomechanical device interbody cage L3 4 and L4-L5 (18578e2) 3. Segmental instrumentation L3 to L5 (18489) 4. L3 to L5 bilateral laminectomy complete facetectomy foraminotomies (15045, 54633) 5. Use of intraoperative neuro monitoring 6. Interpretation of intraoperative fluoroscopy less than 1 hour (06918) Implants: Globus Creole screw and guanaco system Amplify cages 2 Autograft Allograft Bio 4 Theracell DBBM susan Anesthesia: GETA Surgeon: Brent Cuellar Wind Field Manager #1: Nicole Guillen (Was present and assisted in opening dissection hardware instrumentation decompression closure and dressing.) Estimated Blood Loss (ml): 500 IV fluids (ml): 3,000 Urine output (ml): 547 Pathology: none sent Condition: stable Disposition: PACU Indications for Procedure: Chet Lobo is presenting for evaluation of low back pain. It was my pleasure to have seen and examined Chet Lobo. In our visit today we have had a chance to go over subjective complaints, physical examination findings and treatments including the natural course history without intervention and various interventional options. The patients imaging demonstrates L1-L2: Normal disc appearance without desiccation. No herniation, protrusion or disc bulging. No canal stenosis is present. Foramina are patent bilaterally. L2-L3: Posterior disc bulge causes mild anterior mass effect on the thecal sac somewhat eccentric towards the left. Circumferential extension of disc material towards the left encroaches minimally on the inferior aspect of the foramen. No significant spinal stenosis. L3-L4: There is severe spinal stenosis, posterior disc bulge is present, there is hypertrophy ligamentum flavum, circumferential extension of disc material results in foraminal encroachment greater on the left than on the right. Discogenic material extends posterior to the L3 vertebral body in the left paracentral location causing some anterolateral mass effect on the thecal sac extending from the disc space at L3-4, sagittal image #9, axial image 18 L4-L5: Posterior b road-based disc bulge causes anterior mass effect on the thecal sac. Circumferential extension endplate disc complex causes some right- sided foraminal encroachment. No significant spinal stenosis. There is facet arthropathy with hypertrophy ligamentum flavum causing some posterior lateral mass effect on the thecal sac. L5-S1: There is a posterior disc bulge present which may contact the proximal S1 nerve roots. Circumferential extension of endplate disc complex encroaches upon the foramina greater on the right possibly contributed by the curvature. No significant spinal stenosis. Facet arthropathy contributes to cause some lateral recess stenosis on the right Lumbar segments are intact. No paraspinal masses are identified. Conus medullaris has a normal appearance. There is a spinal curvature. Lumbar vertebral bodies show preserved height and alignment. There is multilevel spondylosis with endplate discogenic marrow signal change. Loss of disc signal is present at intervertebral levels L2-3, L3-4, L4-5, L5-S1, there is loss of disc height greatest at L3-4 and L4-5. There is loss of volume in the renal parenchymal consistent with chronic medical renal disease. On physical exam, Chet Lobo demonstrates bilateral lower extremity weakness with prominent instability, there is also a limit with ROM and pain with all testing. I have explained to the patient that as their condition progresses it will cause further neurological deficits and eventual paralysis. Based on the patients imaging, physical exam, and the rapid progression and disabling nature of their symptoms, at this time I recommend surgery in the form or a: L3-L5 decompression and fusion (PLIF). I discussed the risk and benefits of this procedure at length with Chet Lobo. The patient and his agreed to considered pursuing the procedure abovementioned. Prior to surgery, she should follow up with her PCP (Cardio, ID, IM etc) for clearance. Questions were invited and answered, and the patient wishes to proceed as outlined below. Currently, I am recommendin.L3-L5 decompression and fusion (PLIF) 2.Follow up with PCP for surgical clearance 3.Review of surgical risks and benefits as well as an educational packet on the proposed surgical procedure. Risks were discussed as outlined in the risk review. Description of Procedure: The patient was seen and examined in the preoperative area. All preoperative protocols were followed. Informed consent was obtained risks and benefits of the procedure were discussed at length. Risks including bleeding infection damage to the surrounding tissue and risk of reoperation were discussed with the patient. Risk of anesthesia up to and including was a discussed with the patient. These are outlined in the risk review. They were willing to accept these risks and all of the risks of surgery. The patient was given a weight- based dose of antibiotics in the form of 2 g Ancef. The patient was seen and evaluated by the anesthesia team who deemed them fit for surgery. The site was marked, the patient was willing to proceed with the procedure. The patient was transferred to the operative suite by the Department of anesthesia. They were then drifted off to sleep by the department anesthesia and GETA was performed. The patient tolerated this well. Dubon catheter was placed by nursing staff, atraumatically. Once confirmation of lines and ventilation the patient was transferred to a prone Luiz table very carefully. All bony prominences including wrists, elbows, axilla, chest, hips, and thighs, and feet were padded very well. Special attention was paid to the genitalia and these were padded accordingly. SCDs were placed on bilateral lower extremities and were connected. Arms were well padded and placed on arm boards up and out in the 90/90 position. Once in position, again we confirmed good ventilation capabilities and that lines were running appropriately. The patient's lumbar spine was then exposed. 1010s were placed outlining the incision site. Standard alcohol was used to clean the incision site and allowed to dry. C-arm was used to biomark the patient and confirm level for incision which was marked with a skin marker. Operative briefing was performed with all teams and everyone in agreement to proceed. The patient was then prepped and draped in a normal sterile fashion. Timeout was then performed and all parties were in agreement with the procedure to be performed. Midline skin incision was made over the previously bowel marked area electrocautery dissection taken down to the lumbar fascia which was identified and cleaned with a Lira. Midline fasciotomy was then performed over the spinous processes of L2 through L5. Subperiosteal dissection was then taken down over the lamina of L3 L4 L5 and over the facet joints the transverse processes were exposed bilaterally. Meticulous hemostasis performed. Lateral fluoroscopic image with a Verona 4 placed at the pars interarticularis of L4-L5 confirm levels. We then proceeded with instrumentation from L3 to L5 bilaterally using fluoroscopic guidance. High-speed bur was used to make a compliance intern hole pedicle finder was then used to access the pedicle feeler was used to ensure within the pedicle montoya and screw was placed using fluoroscopic guidance. We performed this bilaterally all screws were placed and confirmed to be in good position on AP and lateral fluoroscopic images intraoperative neuro monitoring was then used to test the screws and all screws tested above 20 mA. We then proceeded with L3-L4 bilateral laminectomy facetectomy foraminotomy and pars removal. This was performed using a high-speed bur T cuts were made first midline and then through the pars interarticularis at L3-L4. I AP and SAP's were removed completely at L3-L4 to allow access to the disc space. Once the disc space was access bipolar electrocautery was used to perform meticulous hemostasis around this area nerve root and dura were then mobilized and protected using a Verona 4 and nerve root retractor. We then access the disc space first with an osteotome followed by a Raptor. We then performed sequential shaving down-biting curet as well as disc removal with pituitary discectomy was performed and complete discectomy was performed. We then roughen the endplates and ensured good bleeding end plates. Autograft and DBM bullet was placed anterior to the cage the cages then selected based on shaving and this cage was then impacted into position while protecting the dura and exiting nerve root. Once cage was in good position under lateral fluoroscopic guidance the cage was then expanded ensuring that it was anteriorly within the disc space and centered low centered. This was confirmed on AP and lateral fluoroscopic imaging we then expanded the disc cage and locked it in position with a locking screw. The cages then back filled with DBM and autograft. There is no injury to the exiting nerve root or the dura perform meticulous hemostasis and FloSeal was placed. We then proceeded to the L4 5 level where bilateral facetectomy foraminotomy and laminectomy was performed T cuts were performed followed by U cuts to ensure the complete decompression at this level. The top of L5-S1 was removed in order to complete decompression at these levels. We then used a Verona 4 and a nerve root retractor to protect the exiting nerve root as well as the dura bipolar electrocautery was used to access this area and Kambin's triangle osteotome was placed within the disc space under lateral fluoroscopic guidance followed by a Raptor followed by sequential shaving to the desired height. Bear claws and down biting curette were used as well as pituitary to remove any remaining disc and a complete discectomy was performed ensured good bleeding end plates. Autograft and allograft were then placed anterior within the disc space and the cage was then impacted into place we will protecting the nerve root and dura. There is no injury to this area cages then expanded under lateral fluoroscopic guidance and confirmed to be in good position under AP. It was then locked into position with a locking screw in back filled with DBM. Again meticulous hemostasis performed. We then placed FloSeal in this area. We then selected rods and placed them and locked them in place with set screws and setscrews were final tightened. We then placed 2 cross-links which were then final tightened into place. We then irrigated the wound copiously with 3 L of antibiotic saline solution followed by 3 L of normal sterile saline. We then decorticated posterior lateral gutters and transverse processes were then placed bone graft the posterior lateral gutter. She is done bilaterally. We then placed Surgicel over the dura a drain was placed deep and secured in position with a stitch on the skin then placed vancomycin 2 g powdered within the wound then performed a layered closure first and the fascia with #1 Vicryl followed by 0 PDS them close the deep subcu tissue with 0 Vicryl the superficial subcu tissue 2-0 Vicryl and the skin with skin leanne. The wound was then cleaned and dressed sterilely with op to foam dressing drain sponge and Tegaderm. The patient was transferred back to their hospital bed atraumatically. Drain continued to hold suction and were in good position. Patient was then awakened and extubated by the department of anesthesia having tolerated the procedure very well with no complications. They were transferred to the postoperative care unit in stable condition.
== END 2021-09-24 17:52 | disposition home health service (06) | DRG 454 ==
LOC: 2ORMAIN 09-21 09:25 → 5NMEDONC 09-21 19:05
PROVIDERS: ADMIT Orthopaedic Surgery; ATTEND Orthopaedic Surgery
PROC: 0SG10AJ Fusion of 2 or more Lumbar Vertebral Joints with Interbody Fusion Device, Posterior Approach, Anterior Column, Open Approach (ICD-10-PCS; 2021-09-21)
PROC: 0SG1071 Fusion of 2 or more Lumbar Vertebral Joints with Autologous Tissue Substitute, Posterior Approach, Posterior Column, Open Approach (ICD-10-PCS; 2021-09-21)
PROC: 0ST20ZZ Resection of Lumbar Vertebral Disc, Open Approach (ICD-10-PCS; 2021-09-21)
PROC: 01NB0ZZ Release Lumbar Nerve, Open Approach (ICD-10-PCS; principal; 2021-09-21 12:45)
PROC: 30233R1 Transfusion of Nonautologous Platelets into Peripheral Vein, Percutaneous Approach (ICD-10-PCS; principal; 2021-09-21 12:45)
DX: M48.062 Spinal stenosis, lumbar region with neurogenic claudication (principal); D84.821 Immunodeficiency due to drugs; E87.2 Acidosis; I48.19 Other persistent atrial fibrillation; Z94.0 Kidney transplant status; E03.9 Hypothyroidism, unspecified; N18.31 Chronic kidney disease, stage 3a; M47.816 Spondylosis without myelopathy or radiculopathy, lumbar region; E11.22 Type 2 diabetes mellitus with diabetic chronic kidney disease; E11.649 Type 2 diabetes mellitus with hypoglycemia without coma; E78.5 Hyperlipidemia, unspecified; F32.A Depression, unspecified; F41.9 Anxiety disorder, unspecified; G25.81 Restless legs syndrome; G89.29 Other chronic pain; H91.90 Unspecified hearing loss, unspecified ear; I12.9 Hypertensive chronic kidney disease with stage 1 through stage 4 chronic kidney disease, or unspecified chronic kidney disease; I25.10 Atherosclerotic heart disease of native coronary artery without angina pectoris; R29.6 Repeated falls; Z79.4 Long term (current) use of insulin; Z79.82 Long term (current) use of aspirin; Z79.890 Hormone replacement therapy; Z79.899 Other long term (current) drug therapy; Z80.8 Family history of malignant neoplasm of other organs or systems; Z85.46 Personal history of malignant neoplasm of prostate; Z86.12 Personal history of poliomyelitis; Z95.1 Presence of aortocoronary bypass graft
CPT/HCPCS: 72100; 72131; 80048; 83036; 85025; 85027; 86850; 86900; 86901

== ENCOUNTER → 2021-11-30 | Outpatient (CLI) | payer MEDICARE ==
--- NOTE | 2021-11-30 08:50 | CT ---
EXAMINATION TYPE: CT lumbar spine wo con DATE OF EXAM: 11/30/2021 7:23 AM COMPARISON: CT dated 10/10/2021 HISTORY: Low back pain CT DLP: 858.4 mGycm Automated exposure control for dose reduction was used. Technique: Unenhanced CT of the lumbar spine was performed. Bone and soft tissue window settings are submitted as well as coronal and sagittal reconstructions. Findings: Previous posterior spinal canal decompression and transpedicular fixation of L3, L4 and L5 vertebrae using 2 rods and 6 metallic screws. L3-4 and L4-5 disc spacers are also seen. No evidence of prosthes is break. Interval anterior wedging of L2 vertebral body with upper endplate depression, about 40% height reduc tion and superior fracture lines without significant retropulsion into the spinal canal. Please corre late with history of interval trauma. No other definite vertebral body collapse or acute displaced fracture identified. Soft tissue swellin g and questionable small amount of fluid seen along the lower back muscles/soft tissue at the operati ve level likely related to postoperative changes. L1-L2: No significant disc disease, central spinal canal stenosis or neuroforaminal stenosis. L2-L3: Diffuse posterior disc bulge with posterior disc calcification and ligamentum flavum hypertrop hy, causing central spinal canal stenosis without significant neuroforaminal stenosis. L3-L4: Operative bed with suboptimal assessment due to artifacts. L4-L5: Operative bed with suboptimal assessment due to artifacts L5-S1: Small central and right paracentral focal disc protrusion associated with posterior osteophyto sis, disc calcification and slightly prominent epidural fat, causing small thecal sac at that level a nd moderate right neuroforaminal stenosis compressing the right L5 nerve root. Possible indentation o f the right S1 nerve root in its lateral recess. Scattered arterial atherosclerotic calcifications. Apparently atrophic kidneys. IMPRESSION: Postoperative changes as detailed above. Interval L2 vertebral body collapse and upper endplate depre ssion as detailed above, please correlate with interval trauma. Other findings as detailed above.
== END | disposition home or self-care (01) ==
LOC: RADCTMAIN 06:32
PROVIDERS: ATTEND Orthopaedic Surgery
DX: M48.56XA Collapsed vertebra, not elsewhere classified, lumbar region, initial encounter for fracture (principal); M48.061 Spinal stenosis, lumbar region without neurogenic claudication; M51.27 Other intervertebral disc displacement, lumbosacral region
CPT/HCPCS: 72131

== ENCOUNTER → 2021-11-30 | Outpatient (CLI) | payer MEDICARE ==
[2021-11-30 08:18] LABS: Prothrombin Time 10.7 sec (9.0-12.0)
[2021-11-30 08:37] LABS: African American GFR (CKD) 52 (>60 ml/min/1.73 sqM); Anion Gap 11 mmol/L; Blood Urea Nitrogen 32 mg/dL (9-20); Calcium 8.6 mg/dL (8.4-10.2); Carbon Dioxide 21 mmol/L (22-30); Chloride 103 mmol/L (98-107); Glucose 220 mg/dL (74-99); Non-African American GFR(CKD) 45 (>60 ml/min/1.73 sqM); Potassium 5.1 mmol/L (3.5-5.1); Sodium 135 mmol/L (137-145)
[2021-11-30 08:40] LABS: Basophils % (A) 0 %; Eosinophils % (A) 0 %; HCT 44.1 % (39.0-53.0); HGB 13.8 gm/dL (13.0-17.5); Hypochromasia Moderate; Lymphocytes # (A) 0.4 k/uL (1.0-4.8); Lymphocytes % (A) 5 %; MCH 27.3 pg (25.0-35.0); MCHC 31.3 g/dL (31.0-37.0); Mean Platelet Volume 8.5; Monocytes # (A) 0.3 k/uL (0-1.0); Monocytes % (A) 4 %; Neutrophils # (A) 6.7 k/uL (1.3-7.7); Neutrophils % (A) 88 %; Platelet Count 128 k/uL (150-450); RBC 5.07 m/uL (4.30-5.90); RDW 15.5 % (11.5-15.5); WBC 7.6 k/uL (3.8-10.6)
== END | disposition home or self-care (01) ==
LOC: LABPAT 07:22
PROVIDERS: ATTEND Orthopaedic Surgery
DX: Z01.812 Encounter for preprocedural laboratory examination (principal); S32.020A Wedge compression fracture of second lumbar vertebra, initial encounter for closed fracture; Y99.9 Unspecified external cause status
CPT/HCPCS: 80048; 85025; 85610

== ENCOUNTER 2021-12-02 13:26 | Day surgery (SDC) | payer MEDICARE ==
[2021-12-01 08:37] VITALS: BMI 30.4
--- NOTE | 2021-12-02 08:04 | P.HPOR ---
History of Present Illness H&P Date: 11/26/21 Chief Complaint: FFS and low back pain [facility] Date of :[birth year] Age: 80 year Height: 5'8" Weight: 185 lbs BMI: 28.13 kg/m2 Occupation: Retired VAS: 9 CHIEF COMPLAINT: S/P L3-L5 decompression fusion (PLIF) DOI:Chronic DOS:09/21/2021 Post Op Week: 6 weeks SUBJECTIVE: Patient returns to the office for a recheck of his lumbar spine. Since the time of the last appointment the patient reports that on 11/24/2021 he was opening a refrigerator door in the dark when he hit his face which caused him to fall down the ground,landing on his back. Since this fall the patient reports a sharp increase in pain which has greatly reduced his ability to complete daily tasks. he has been employing RICE and Manchester 5/325mg daily both without any relief of his symptoms. Additionally, he notes that he has not been able to ambulate any distance due to his pain and thus has been wearing his LSO brace and using a wheelchair to ambulate. He denies any bladder or bowl retention/incontinence, no perineal numbness/tingling, and presents to the office using a wheelchair. HPI: Patient last returned to the office on 11/05/2021 for a recheck of his lumbar spine. Since the time of the last appointment the patient reports that he did fall 2 wheels ago, landing on the left hip, and has had some increased left hip pain sine. He denies any acute increase in lumbar symptoms. Aside from this recent fall the patient denies any significant issues and notes that he has been making improvements to his pain and strength. He reports a general increase in aching about th lumbar back with prolonged activities but this is made better with rest. Otherwise he has continued to take Manchester, Flexeril, and ASA all with relief of his symptoms. Patient denies any incision concerns, no bladder or bowel retention/incontinence, no perineal numbness/tingling, and ambulates with the use of a wheeled walker. Overall he reports being able to complete more of his daily functions without issue. Patient last presented on10/08/2021 for his first post-operative appointment following their L3-L5 PLIF from 09/21/2021. Since the time of the surgery the patient reports that he has been doing okay. His primary complaint is increased posterior lumbar aching that increases with standing and ambulation. Additionally he complains of left side groin pain radiating into the bilateral lower extremities. Aside from this he reports improving bladder incontinence and is happy with his progress. He denies any fevers or chills or incision concerns. Patient denies any sleep disturbances as well. He is currently taking Manchester, Gabapentin, Flexeril all with relief of his symptoms. Overall he has no major concerns at the time of today's visit. He denies any bowel retention/incontinence, no perineal numbness/tinging, and ambulates with the use of a wheelchair. The patient's past medical history; past surgical history; family history; medicines; allergies and social history have been reviewed and are as stated elsewhere in the chart. 14 points review of systems completed and as stated in HPI, all other systems reviewed are negative. Review of Systems 16 points review of systems completed and as stated in HPI, all other systems reviewed are negative. Past Medical History Past Medical History: Atrial Fibrillation, Cancer, Diabetes Mellitus, Hyperlipidemia, Hypertension, Prostate Disorder, Renal Disease, Thyroid Disorder Additional Past Medical History / Comment(s): polio at age 6, hx Melamoma, "slow growing cancer of prostate, being watched by Dr Dasilva." Hard of hearing, LOW PLATELETS, gout, spinal stenosis, fx spine from fall, History of Any Multi-Drug Resistant Organisms: None Reported Past Surgical History: Back Surgery, Orthopedic Surgery Additional Past Surgical History / Comment(s): left kidney transplant 2002, parathyroid surgery, arthroscopy knee surgery, pericardiocentesis x 2, 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 Mother Family Medical History: Cancer Additional Family Medical History / Comment(s): . Medications and Allergies Home Medications Medication Instructions Recorded Confirmed Type Finasteride [Proscar] 5 mg PO DAILY@99902/09/17 12/01/21 History Tamsulosin HCl [Flomax] 0.4 mg PO DAILY@1000 02/09/17 12/01/21 History Multivitamins, Thera [Multivitamin 1 tab PO DAILY@1000 12/31/18 12/01/21 History (formulary)] Atorvastatin Calcium [Lipitor] 20 mg PO HS 10/14/19 12/01/21 History Vit C/E/Zn/Coppr/Lutein/Zeaxan 1 cap PO HS 12/18/19 12/01/21 History [Preservision Areds 2 Softgel] Calcium Carbonate [Tums] 1,000 mg PO DAILY 12/28/19 12/01/21 History Pantoprazole [Protonix] 40 mg PO DAILY@1000 12/28/19 12/01/21 History Metoprolol Tartrate [Lopressor] 50 mg PO BID@1000,0 03/05/20 12/01/21 History Tacrolimus [Prograf] 1 mg PO DAILY@1000 04/03/20 12/01/21 History mycophenolate mofetiL [Cellcept] 250 mg PO BID@1000,219904/03/20 12/01/21 History predniSONE 10 mg PO DAILY@99904/03/20 12/01/21 History DULoxetine HCL [Cymbalta] 120 mg PO 1000 12/01/20 12/01/21 History INSULIN LISPRO (HumaLOG) [humaLOG] See Protocol SQ AC-TID 12/01/20 12/01/21 History Levothyroxine Sodium [Synthroid] 75 mcg PO 1000 12/01/20 12/01/21 History Tacrolimus [Prograf] 1.5 mg PO HS@219912/01/20 12/01/21 History Aspirin 81 mg PO DAILY 07/12/21 12/01/21 History Cyclobenzaprine [Flexeril] 5 mg PO 0800 07/12/21 12/01/21 History Gabapentin 300 mg PO BID 07/12/21 12/01/21 History QUEtiapine [SEROquel] 100 mg PO HS@0 07/12/21 12/01/21 History Rosuvastatin Calcium [Crestor] 5 mg PO HS 07/12/21 12/01/21 History Sodium Bicarbonate Tab 650 mg PO 1000 07/12/21 12/01/21 History amLODIPine [Norvasc] 2.5 mg PO 1000,0 09/02/21 12/01/21 History rOPINIRole HCL [Requip] 1 mg PO HS 09/02/21 12/01/21 History Sennosides/Docusate Sodium 2 each PO HS PRN #40 tablet 09/24/21 12/01/21 Rx [Senna-S 8.6-50 mg Tablet] Eltrombopag Olamine [Promacta] 25 mg PO 0800 12/01/21 12/01/21 History HYDROcodone/APAP 5-325MG [Manchester 1 - 2 tab PO Q6HR PRN 12/01/21 12/01/21 History 5-325] Insulin Glargine/Lixisenatide 25 units SQ 1000 12/01/21 12/01/21 History [Soliqua 100 Unit-33 Mcg/ml Pen] Allergies Allergy/AdvReac Type Severity Reaction Status Date / Time morphine Allergy Severe Itching Verified 12/01/21 08:04 Physical Examination Osteopathic Statement: *. No significant issues noted on an osteopathic structural exam other than those noted in the History and Physical/Consult. PHYSICAL EXAM: Patient is alert and oriented 3 appears well-nourished well-hydrated is in no acute distress. They does not appear septic. On exam the patient has alot of tenderness to palpation of his lumbar spine midline at this time where he fell. There is no edema or ballottement sign. Incisions look good, no drainage or signs of any infection. No EEE, edema, ecchymosis. ROM and strength testing not tolerated due to severe pain. Patient ambulating with the use of a wheelchair. Lower extremities with 4+ out of 5 strength in all major muscle groups due to deconditioning Upper extremities show 5/5 strength in all major muscle groups. There is FROM that is painless of the b/l UE and LE in all major joints. They are intact to light touch sensation in L2 to S1 nerve distribution as well as the C5-T1 distribution. DTRs 2/4 all upper and lower Patient has palpable dorsalis pedis was posterior tibial pulses. Compartments are soft and compressible. Patient shows a negative Homans, Salvador's, negative Babinski's negative clonus bilaterally. negative straight leg raise bilaterally. No tensioning signs. Cranial nerves II through XII are grossly intact. Overall alignment is well-maintained in the sagittal coronal planes. Results RADIOGRAPHS: XRay taken on 10/08/21 of Lumbar was reviewed by Dr. Ordoñez and indicates: Hardware in position, no sign of any screw migration, dislocation, loosening, or failure. Overall good reduction maintained with good sagittal balance. XRay taken on 11/08/21 of Lumbar was reviewed by Dr. Ordoñez and indicates: Hardware in position, no sign of any screw migration, dislocation, loosening, or failure. Overall good reduction maintained with good sagittal balance. Good bony consolidation noted. XRay taken on 11/26/21 of Lumbar was reviewed by Dr. Ordoñez and indicates: images are reviewed in the office with the patient demonstrate hardware in good position with no evidence of failure or migration. There is however visualized a new L2 vertebral compression fracture with 45% compression anteriorly wedging. No evidence of posterior communication or retropulsion on x-ray however computed tomography scan is better view of this. Minor kyphotic alignment at this level no other fracture or dislocation noted at this time Assessment and Plan Assessment: 1. S/P L3-L5 decompression and fusion (PLIF) 2. L2 VCF 45% compression 3. s/p FFS Plan: PLAN: All options were reviewed today, we decided the best course of action would be: - Discussed that he can continue with the use of his LSO brace, advised that he should start to progress with weightbearing to improve his daily functionality. - I discussed treatment options with the patient, including operative and non- operative options, and they have elected to proceed with the following surgical procedure: URGENT L2 kyphoplasty The indications, risks, benefits, and alternatives to surgery were discussed with the patient and family at length. Specifically (but not limited to) the risks of infection, stiffness, recurrence of symptoms, need for revision surgery, local numbness, neurovascular injury, and blood clots were discussed. The patient's questions were answered. The decision to proceed was made. Consent will be obtained for the procedure. Spine Surgery Risk Review Chet Lobo is presenting for evaluation of severe low back pain with L2 kyphoplasty. It was my pleasure to have seen and examined Chet Lobo. In our visit today we have had a chance to go over subjective complaints, physical examination findings and treatments including the natural course history without intervention and various interventional options. The patients imaging demonstrates [Findings]. On physical exam, hCet Lobo demonstrates: incisions look good, no drainage or signs of any infection. No EEE, edema, ecchymosis. ROM and strength testing not tolerated due to severe pain. Patient ambulating with the use of a wheelchair. I have explained to the patient that as their condition progresses it will cause further neurological deficits and eventual paralysis. Based on the patients imaging, physical exam, and the rapid progression and disabling nature of their symptoms, at this time I recommend surgery in the form of a: L2 kyphoplasty. I discussed the risk and benefits of this procedure at length with Chet Lobo. The patient and his agreed to considered pursuing the procedure abovementioned. Prior to surgery, she should follow up with her PCP (Cardio, ID, IM etc) for clearance. Questions were invited and answered, and the patient wishes to proceed as outlined below. Currently, I am recommendin.L2 kyphoplasty 2.Follow up with PCP for surgical clearance 3.Review of surgical risks and benefits as well as an educational packet on the proposed surgical procedure. Risks: All surgical procedures come with inherent risks, including those related to positioning, anesthesia, intraoperative findings, and postoperative complications. It is important to understand that surgery does not come with any guarantee of a successful outcome as complications and adverse events are always possible. The patient was given a handout in office today discussing the surgical procedure and risks associated with the intervention, both of which were discussed with the patient. These risks include but are not limited to the following: * Experiencing same, different or even worse symptoms in back, neck, arms, or legs compared to before surgery. Requiring further surgery or other forms of treatment presently or at some time in the future at same or other levels of the intended spine surgery. On an extreme but fortunately relatively rare basis severe complication such as blindness, stroke, heart attack, temporary and/or permanent nerve injury, paralysis, coma, or may occur, sometimes without known explanation. Surgical complications may include but are not limited to risk of infection, fluid accumulation in the surgical dissection site, including a seroma or hematoma, that requires additional surgery, wound drainage, bleeding, new numbness or weakness, vision changes/loss, spinal fluid leakage, non-healing and/or infected incision, headaches, difficulty or inability to swallow, hoarseness, hemopneumothorax, pneumothorax, impotence, retrograde ejaculation, vaginal dryness; injury to nerves, spinal cord, blood vessels, lymphatics or other vital organs (i.e., bowel injury, injury to the great vessels); heterotopic bone formation; complications related to the hardware such as screws, rods, cages including misplaced hardware, device failure, instrumentation at the wrong spine level, hardware fracture/breakage, or hardware loosening; vertebral failure of the spinal column above or below the newly placed hardware; retained surgical instrumentations or devices and the need for further surgery. * Medical risks of the planned spine surgery include but are not limited to generalized Infections to the whole body or local areas outside of the surgical site (sepsis), heart attack, bleeding, anaphylaxis, meningitis, seizure, epilepsy, hearing loss, burn funes, laceration of the head or other areas of the body, bruising, hypersensitivity of the skin, bladder over distension; allergic reaction; shoulder injury related to positioning; fat, blood and air clots to other areas of the body like heart, lungs, brain; failure of internal organs such as lungs, kidneys, liver and excessive b leeding. If blood transfusions are necessary, note that transfusions may cause intolerance reactions such as anaphylaxis or other complex reactions. Despite best efforts, the results of spine surgery might not heal in terms of bone, soft tissues such as skin, fascia, ligaments, and joints. Additionally, in order to achieve best possible results, spine surgery may be carried out beyond the initially planned levels and involve decompression, fusion including insertion of hardware at levels other than the original intended area of surgical interest change some portions of the procedure in order to ensure the best possible outcomes. With spine surgery and spinal fusion, there are different off label uses of instrumentation (devices, implants and hardware) as well as biological substances (bone morphogenic proteins, demineralized bone matrix) as well as using extra bone from allograft sources (i.e. cadaver bone) or autograft (iliac crest bone, ribs, or the spine itself). The patient has been given information about these practices and their inherent risks and benefits. [facility] is an educational center that serves as a training facility for neurosurgical and orthopedic [employer] and Nursing students. Physician assistants are medically trained surgical providers who function in the outpatient, inpatient, and operating room setting under the direct supervision of the atten ding surgeon. [facility] has multiple operating rooms with single and overlapping rooms running daily. They currently function under the required guidelines as produced by the [facility] Finance Committee with regards to the overlapping rooms and will continue to comply with changes to this policy as they occur. The requirements include and are complied with as follows: (1) the critical portions of the overlapping rooms will not occur at the same time, (2) the attending physician will be physically present during the critical portions of the procedure and immediately available during the entire case, and (3) a back-up attending is designated should the primary attending not be immediately available. The patient has had a chance to review all the listed information, has been given print outs detailing this information, and has had all his/her questions answered to their satisfaction. It was my pleasure to have seen and examined Chet Lobo. In our visit today we have had a chance to go over my understanding of our patient's current condition, the natural course history without intervention and various interventional options. Questions were invited and answered, and the patient wishes to proceed as outlined above. I have seen and examined the patient for 25 minutes and we have spent more than 50% of the time in repeat and detailed counseling about the patient's condition, its natural course history with out and as much as can be predicted with surgery and re-review of various surgical treatment options. In conclusion, Chet Lobo and his spouse requested we proceed with the above suggested surgery and are willing to accept risks and limitations of the suggested surgery as nature of the disease process and our best attempts at treatment for the condition. Thank you again for allowing us to be part of your patient's care. Please don't hesitate to contact me if you have any further questions. Signed and authenticated by: [facility] Complex and Minimally Invasive Spine Surgery [address] [facility], [address] [address]
[~2021-12-02 13:26] MED LIST: ACETAMINOPHEN TAB 500 MG TAB PO PRN; DEXAMETHASONE SOD PHOSPHATE 4 MG/ML 1 ML VIAL IV ONE; GABAPENTIN 300 MG CAP PO PRN; ONDANSETRON 4 MG/2 ML VIAL IVP ONE; ONDANSETRON 4 MG/2 ML VIAL IVP PRN; TRANEXAMIC ACID IN NACL,ISO-OS 1,000 MG in SALINE 1 100ML.BAG IVPB PRN; fentaNYL (PF) 50 MCG/ML 2 ML AMP IV PRN
[2021-12-02 14:10] LABS: Glucose,Whole Blood 183 mg/dL (75-99)
[2021-12-02] MEDS: LACTATED RINGERS 1,000 ML IV SCH (14:10)
[2021-12-02] MEDS ORDERED: fentaNYL (PF) 50 MCG/ML 2 ML AMP IVP ONE ×2 (14:23→17:43)
--- NOTE | 2021-12-02 15:57 | P.PN ---
Progress Note - Text Progress Note Date: 12/02/21 History and Physical UPDATE I have seen and examined the patient and reviewed the history and physical. There appear to be no significant changes in the patient's current medical status as outlined in the current History and Physical.
[2021-12-02] MEDS ORDERED: PROPOFOL 10 MG/ML 20 ML VIAL IV ONE (16:34)
[2021-12-02] MEDS ORDERED: fentaNYL (PF) 50 MCG/ML 2 ML AMP ONE (16:34)
[2021-12-02] MEDS ORDERED: ePHEDrine 50 MG/ML 1 ML VIAL ONE (16:34)
[2021-12-02] MEDS ORDERED: PHENYLEPHRINE-0.9% NACL SYG 1,000 MCG/10 ML SYRINGE ONE (16:34)
[2021-12-02] MEDS ORDERED: LIDOCAINE 2% INJ 20 MG/ML (2 ML VIAL) ONE (16:34)
[2021-12-02] MEDS ORDERED: SUCCINYLCHOLINE CHLORIDE 100 MG/5 ML SYR IV ONE (16:34)
[2021-12-02] MEDS ORDERED: LIDOCAINE 1%-EPI 1:100,000 20 ML VIAL SQ ONE ×2 (16:57→17:12)
[2021-12-02] MEDS ORDERED: IOPAMIDOL M200 10 ML VIAL MISCELLANE ONE (16:57)
[2021-12-02] MEDS ORDERED: BUPIVACAINE (PF) 0.5% 30 ML VIAL SQ ONE ×2 (16:58→17:12)
[2021-12-02 17:34] LABS: Glucose,Whole Blood 206 mg/dL (75-99)
[2021-12-02] MEDS ORDERED: INSULIN ASPART (NovoLOG) 100 UNIT/ML VIAL SQ ONE (17:39)
--- NOTE | 2021-12-02 18:05 | XR ---
EXAMINATION TYPE: XR lumbar spine 2 or 3V, FL guidance operating room DATE OF EXAM: 12/02/2021 5:29 PM INDICATION: Patient age:Male; 81 years old; Reason for study: L2 Kyphoplasty; [facility]. COMPARISON: Intraoperative fluoroscopic services were provided for lumbar spine vertebroplasty. Total fluoroscopy time is 52.2 with a total of 7 submitted images to PACS. Please see the operative note for further d etails.
[2021-12-02] MEDS ORDERED: CYCLOBENZAPRINE 5 MG TAB PO PRN (20:55)
[2021-12-02] MEDS ORDERED: HYDROcodone/APAP 5-325MG 1 EACH TAB PO PRN (20:55)
[2021-12-02] MEDS ORDERED: HYDROmorphone 0.5 MG/0.5 ML SYRINGE IVP PRN (20:55)
[2021-12-02] MEDS ORDERED: MAGNESIUM HYDROXIDE 2,400 MG/10 ML CUP PO PRN (20:55)
[2021-12-02] MEDS ORDERED: SENNOSIDES-DOCUSATE SODIUM 1 EACH TAB PO PRN (20:55)
--- NOTE | 2021-12-02 21:03 | P.PN ---
Progress Note - Text Progress Note Date: 12/02/21 Postop: . Patient seen and examined they are doing well. Their pain is under control at this time. They are moving all 4 extremities without any issues. Vital signs are stable.. They are currently recovering and will be transferred to the floor once deemed stable by the PACU team and anesthesiologist. No Other issues at this time they deny fever chills shortness of breath or chest pain. Medical management pending Continue with intravenous fluids, pain medication, muscle relaxers, home medication Soft diet to start to advance as tolerated We will evaluate the patient in the morning. Likely discharge in the morning
[2021-12-02] MEDS ORDERED: HYDROmorphone 0.5 MG/0.5 ML SYRINGE IVP ONE (21:25)
[2021-12-02] MEDS: GABAPENTIN 300 MG CAP PO SCH (22:44)
[2021-12-02] MEDS: HYDROcodone/APAP 10-325MG 1 EACH TAB PO PRN (22:45)
[2021-12-03 05:27] LABS: Glucose,Whole Blood 246 mg/dL (75-99)
[2021-12-03] MEDS: LACTATED RINGERS 1,000 ML IV SCH (05:48)
[2021-12-03 07:04] LABS: Glucose,Whole Blood 201 mg/dL (75-99)
[2021-12-03] MEDS: GABAPENTIN 300 MG CAP PO SCH (08:32)
--- NOTE | 2021-12-03 08:34 | P.PN ---
Subjective Progress Note Date: 12/03/21 Patient seen and examined is doing very well today. He got up last night went to the bathroom with some minimal assistance he states some soreness in his back however he denies the sharp pain that he had before. He denies any weakness in his lower extremities no peroneal numbness or tingling no other issues at this time denies any fevers chills shortness of breath or chest pain. States he feels good and like to go home. Objective - Vital Signs Vital signs: Vital Signs Temp 98.7 F 12/03/21 05:55 Pulse 80 12/03/21 05:55 Resp 18 12/03/21 05:55 BP 126/82 12/03/21 05:55 Pulse Ox 95 12/03/21 05:55 Intake & Output 12/02/21 12/03/21 12/03/21 18:59 06:59 18:59 Intake Total 950 Output Total 750 Balance 950 -750 Weight 90.718 kg Intake: IV 950 Output: Urine 750 Other: Voiding Method Urinal # Voids 2 2 - Exam Patient is alert and oriented 3 appears well-nourished well-hydrated is in no acute distress. They do not appear septic. On exam the patient has no tenderness to palpation of her thoracic or lumbar spine. There is no edema or ballottement sign. Lower extremities with 4+/5 strength in all major muscle groups deconditioning and postoperative phase no focal deficits Upper extremities show [5]/5 strength in all major muscle groups. [] [2]/4DTR all UE and LE b/l Patient shows a negative Homans, Salvador's, negative Babinski's negative clonus bilaterally. negative straight leg raise bilaterally. No tensioning signs. Cranial nerves II through XII are grossly intact. There is FROM that is painless of the b/l UE and LE in all major joints [w/o pain]. They are intact to light touch sensation in L2 to S1 nerve distribution. Patient has palpable dorsalis pedis was posterior tibial pulses. Compartments are soft and compressible. Incision is clean and dry - Labs Labs: Abnormal Lab Results - Last 24 Hours (Table) 12/02/21 12/02/21 12/03/21 Range/Units 14:08 17:32 00:05 POC Glucose (mg/dL) 183 H 206 H 246 H (75-99) mg/dL 12/03/21 Range/Units 07:03 POC Glucose (mg/dL) 201 H (75-99) mg/dL Assessment and Plan Assessment: 81-year-old male postoperative day 1 L2 kyphoplasty Admitted for pain control and advanced age as well as mobilization needs 1. S/P L3-L5 decompression and fusion (PLIF) 2. L2 VCF 45% compression 3. s/p FFS Plan: -Appreciate specialty development consultant and team management. -Activity: Ambulate QID, OOB all meals, up and about, limit lifting bending twisting to less than 5 lbs. Use walker or cane if needed for stability. -Daily PT/OT, increase ambulation strength and balance. -[Brace when up and about, not needed in bed or chair] -Pain control: [Adequate at this time] -Meds: [reviewed] -GI ppx: senna, Miralax -DVT PPX: Early ambulation, teds, SCDs -Hygiene: Shower today. Maintain dressing clean and dry. Meticulous cleaning after BMs away from incision site -Encourage IS 10x/hr -Dispo: DC planning for home today
[2021-12-03] MEDS: HYDROcodone/APAP 10-325MG 1 EACH TAB PO PRN (08:36)
[2021-12-03] MEDS ORDERED: SENNOSIDES-DOCUSATE SODIUM 1 EACH TAB PO PRN (09:52)
[2021-12-03] MEDS ORDERED: SODIUM BICARBONATE TAB 650 MG TAB PO SCH (10:00)
[2021-12-03] MEDS ORDERED: TAMSULOSIN 0.4 MG CAP.ER.24H PO SCH (10:00)
[2021-12-03] MEDS ORDERED: PANTOPRAZOLE 40 MG TABLET PO SCH (10:00)
[2021-12-03] MEDS ORDERED: METOPROLOL TARTRATE 50 MG TAB PO SCH (10:00)
[2021-12-03] MEDS ORDERED: NON FORMULARY DRUG (Insulin Glargine/Lixisenatide [Soliqua 100 Unit-33 Mcg/Ml Pen] 3 ML In SQ SCH (10:00)
[2021-12-03] MEDS ORDERED: predniSONE 10 MG TAB PO SCH (10:00)
[2021-12-03] MEDS ORDERED: LEVOTHYROXINE 75 MCG TAB PO SCH (10:00)
[2021-12-03] MEDS ORDERED: TACROLIMUS 0.5 MG CAP PO SCH ×2 (10:00→22:00)
[2021-12-03] MEDS ORDERED: FINASTERIDE 5 MG TAB PO SCH (10:00)
[2021-12-03 11:34] LABS: Glucose,Whole Blood 262 mg/dL (75-99)
[2021-12-03] MEDS ORDERED: INSULIN ASPART (NovoLOG) 100 UNIT/ML VIAL SQ SCH (12:30)
--- NOTE | 2021-12-03 13:28 | P.DS ---
Providers Date of admission: 12/02/2021 Expected date of discharge: 12/03/21 Attending physician: Brent Cuellar DO Consults: 12/02/21 20:56 Consult Physician Routine Consulting Provider: Narinder Rosenberg Reason/Comments: Medical Management Do you want consulting provider notified?: Yes Primary care physician: Narinder Rosenberg [facility] Course: Hospital Course: The patient was evaluated preoperatively and found to have the diagnosis of L2 compression fracture. They underwent appropriate preoperative care and were willing to undergo the intended procedure. They underwent a successful L2 kyphoplasty, were recovered appropriately and sent to the floor. While on the floor they worked with physical therapy, occupational therapy and nursing to enhance their recovery experience. Their pain was well controlled through their stay and they were started on appropriate medications, DVT ppx modalities, activity and dietary needs. Daily labs were monitored closely, and transfusions were only used when necessary. Medicine as well as other consulting services have made their input and have helped with our team approach and multidiscipli nary care. PT milestones have been met and passed and they have made the recommendation of home with home care for this patient and treating providers agree with this care path. The patient will be discharged home with appropriate medications, instructions and follow-up information and in stable condition. Patient Condition at Discharge: Good Plan - Discharge Summary Discharge Rx Participant: Yes New Discharge Prescriptions: New cefaDROXiL [Duricef] 500 mg PO Q12HR 5 Days #10 cap Cyclobenzaprine [Flexeril] 5 mg PO TID #60 tablet Gabapentin 300 mg PO BID #60 cap HYDROcodone/APAP 10-325MG [[place] 10-325] 1 tab PO Q4-6H PRN #56 tab PRN Reason: Pain Sennosides/Docusate Sodium [Senna Plus 8.6-50 mg Tablet] 1 each PO DAILY PRN #20 tablet PRN Reason: Constipation Continue Finasteride [Proscar] 5 mg PO DAILY@1000 Tamsulosin HCl [Flomax] 0.4 mg PO DAILY@1000 Multivitamins, Thera [Multivitamin (formulary)] 1 tab PO DAILY@1000 Atorvastatin Calcium [Lipitor] 20 mg PO HS Vit C/E/Zn/Coppr/Lutein/Zeaxan [Preservision Areds 2 Softgel] 1 cap PO HS Pantoprazole [Protonix] 40 mg PO DAILY@1000 Calcium Carbonate [Tums] 1,000 mg PO DAILY Metoprolol Tartrate [Lopressor] 50 mg PO BID@1000,2200 mycophenolate mofetiL [Cellcept] 250 mg PO BID@1000,2200 predniSONE 10 mg PO DAILY@1000 Tacrolimus [Prograf] 1 mg PO DAILY@1000 Sodium Bicarbonate Tab 650 mg PO 1000 QUEtiapine [SEROquel] 100 mg PO HS@2200 Gabapentin 300 mg PO BID rOPINIRole HCL [Requip] 1 mg PO HS Eltrombopag Olamine [Promacta] 25 mg PO 0800 HYDROcodone/APAP 5-325MG [[place] 5-325] 1 - 2 tab PO Q6HR PRN PRN Reason: Pain Tacrolimus [Prograf] 1.5 mg PO HS@2200 Levothyroxine Sodium [Synthroid] 75 mcg PO 1000 DULoxetine HCL [Cymbalta] 120 mg PO 1000 INSULIN LISPRO (HumaLOG) [humaLOG] See Protocol SQ AC-TID Rosuvastatin Calcium [Crestor] 5 mg PO HS Cyclobenzaprine [Flexeril] 5 mg PO 0800 amLODIPine [Norvasc] 2.5 mg PO 1000,2200 Sennosides/Docusate Sodium [Senna-S 8.6-50 mg Tablet] 2 each PO HS PRN #40 tablet PRN Reason: Constipation Insulin Glargine/Lixisenatide [Soliqua 100 Unit-33 Mcg/ml Pen] 25 units SQ 1000 No Action Aspirin 81 mg PO DAILY Discharge Medication List Finasteride [Proscar] 5 mg PO DAILY@99902/09/17 [History] Tamsulosin HCl [Flomax] 0.4 mg PO DAILY@99902/09/17 [History] Multivitamins, Thera [Multivitamin (formulary)] 1 tab PO DAILY@99912/31/18 [History] Atorvastatin Calcium [Lipitor] 20 mg PO HS 10/14/19 [History] Vit C/E/Zn/Coppr/Lutein/Zeaxan [Preservision Areds 2 Softgel] 1 cap PO HS 12/18/19 [History] Calcium Carbonate [Tums] 1,000 mg PO DAILY 12/28/19 [History] Pantoprazole [Protonix] 40 mg PO DAILY@99912/28/19 [History] Metoprolol Tartrate [Lopressor] 50 mg PO BID@1000,2200 03/05/20 [History] Tacrolimus [Prograf] 1 mg PO DAILY@1000 04/03/20 [History] mycophenolate mofetiL [Cellcept] 250 mg PO BID@1000,0 04/03/20 [History] predniSONE 10 mg PO DAILY@1000 04/03/20 [History] DULoxetine HCL [Cymbalta] 120 mg PO 1000 12/01/20 [History] INSULIN LISPRO (HumaLOG) [humaLOG] See Protocol SQ AC-TID 12/01/20 [History] Levothyroxine Sodium [Synthroid] 75 mcg PO 1000 12/01/20 [History] Tacrolimus [Prograf] 1.5 mg PO HS@219912/01/20 [History] Aspirin 81 mg PO DAILY 07/12/21 [History] Cyclobenzaprine [Flexeril] 5 mg PO 0800 07/12/21 [History] Gabapentin 300 mg PO BID 07/12/21 [History] QUEtiapine [SEROquel] 100 mg PO HS@219907/12/21 [History] Rosuvastatin Calcium [Crestor] 5 mg PO HS 07/12/21 [History] Sodium Bicarbonate Tab 650 mg PO 1000 07/12/21 [History] amLODIPine [Norvasc] 2.5 mg PO 999,219909/02/21 [History] rOPINIRole HCL [Requip] 1 mg PO HS 09/02/21 [History] Sennosides/Docusate Sodium [Senna-S 8.6-50 mg Tablet] 2 each PO HS PRN #40 tablet 09/24/21 [Rx] Eltrombopag Olamine [Promacta] 25 mg PO 0800 12/01/21 [History] HYDROcodone/APAP 5-325MG [[place] 5-325] 1 - 2 tab PO Q6HR PRN 12/01/21 [History] Insulin Glargine/Lixisenatide [Soliqua 100 Unit-33 Mcg/ml Pen] 25 units SQ 1000 12/01/21 [History] Cyclobenzaprine [Flexeril] 5 mg PO TID #60 tablet 12/03/21 [Rx] Gabapentin 300 mg PO BID #60 cap 12/03/21 [Rx] HYDROcodone/APAP 10-325MG [[place] 10-325] 1 tab PO Q4-6H PRN #56 tab 12/03/21 [Rx] Sennosides/Docusate Sodium [Senna Plus 8.6-50 mg Tablet] 1 each PO DAILY PRN #20 tablet 12/03/21 [Rx] cefaDROXiL [Duricef] 500 mg PO Q12HR 5 Days #10 cap 12/03/21 [Rx] Follow up Appointment(s)/Referral(s): Narinder Rosenberg DO [Primary Care Provider] - 12/08/21 11:00 am Brent Cuellar DO [Doctor of Osteopathic Medicine] - 12/17/21 11:30 am Patient Instructions/Handouts: Vertebral Compression Fracture (DC), Kyphoplasty (DC) Activity/Diet/Wound Care/Special Instructions: Spine Discharge and Recovery Instructions Date of Surgery: 12/02/2021 Diagnosis: L2 compression fracture Procedure: L2 kyphoplasty with biopsy Medications: See medication list All medication refills should be obtained through your primary care doctor or your clinic spine surgeon. Please discuss prescription refills at your follow up appointment. Do not call the hospital for medication refills. Dressing: Leave your dressing in place for a total of 5 days post operatively. Then you may remove your dressing and leave open to air. Keep the area clean and if not able to keep area clean, then cover with sterile gauze and tape. Showering: You may shower 3 days after your procedure allowing soap and water to run over incision. Do not scrub. Do not soak. Blot dry. Follow up: Please confirm a follow up appointment with your surgeon 3 weeks post operativ tangela. Please make an appointment to follow up with your PCP in 1-2 weeks after surgery for evaluation 3 phase, 3-week plan POST OP WEEKS 1-3 1. Lifting/carrying/pushing/pulling limited to less than 5 pounds. 2. Do not sit for longer than 15 minutes at one time. Get up and walk around. Prolonged sitting is NOT advised. If you lay down, see if you can tolerate laying down on you front (belly side) 3. Walk for periods of 15 minutes = 1 mile but no longer; do it multiple times times each day. 4. Ice your low back after activity. POST OP WEEKS 3-6 1. Lifting limited to less than 20 pounds. 2. Do not sit for longer than 30 minutes at a time. Frequently change positions. Use a sit-to stand workstation or take frequent breaks from sitting if you have returned to work. 3. Walk for 30 minutes each day. If possible, do these three or more times a day POST OP WEEKS 6+ At your 6-week appointment we will give you a physical therapy referral to focus on a core stabilization and strengthening program. You should also work on leg & buttock strengthening, hamstring & quadriceps stretching, and continue a low impact aerobic activity program such as swimming, walking, or riding a stationary bicycle. During the initial 6 weeks after your surgery, you are at the highest risk of re-injuring your spine. You should generally avoid BLTs (bending, lifting and twisting combination motions) and follow the above guidelines to reduce the chance of reinjury. You can anticipate post op appointments in our office at approximately 3 weeks and 6 weeks after your surgery. INCISION CARE: If your incision is not draining you do NOT need to cover it with a dressing. Keep your incision clean, dry and intact. In most cases, we apply skin glue, leanne or sutures to the incision at the time of surgery. This will be like a crust or have the appearance of a scab and will fall off in time on its own. The stitches or leanne need to be removed at 3 weeks post op appointment. You may begin to shower 3 days after surgery (this allows the glue to munguia well). However, please avoid scrubbing the incision site or peeling off any of the skin glue. This will ensure optimal healing of your incision. Also, during this time avoid soaking the incision area in water - this includes swimming pools, hot tubs or baths. No ointments, lotions or oil s on the incision until your surgeon allows. Leave leanne, sutures or glue in place. Neurological dysfunction that comes on suddenly can also be a sign of a stroke. Below some common symptoms of a stroke are listed: B - balance difficulty such as sudden onset walking or leaning to one side - NEW E - eye problem such as sudden double vision or trouble seeing on one side - NEW F - Facial weakness or numbness on one side - NEW A - Arm or leg weakness or numbness on one side - NEW S - Slurred speech or difficulty with word finding - NEW T - Time is BRAIN! Call 911 as soon as you recognize these symptoms Diet: Consume a regular diet rich in vegetables and lean protein such as chicken or fish. You should consume in a ratio of approximately 20% fats|40% carbohydrates|40%protein. Vegetables, sweet potatoes, brown rice or quinoa are examples of good carbohydrates. Chips, white bread, cookies and sweets/sugar are examples of bad carbohydrates. Limit your bad carbs, go wild with good carbs. "Life's Simple 7" Guidelines as per [place] [employer] These will help you reclaim your life after surgery and miller helper in your recovery, keeping in mind your restrictions. (1) Get Active. Physical activity can help people lose weight, control high blood pressure and cholesterol, feel emotionally better, and sleep better. (2) Control Cholesterol. Avoid a diet high in saturated fat, trans fat, & cholesterol. Limit whole milk & cream, ice cream, butter, egg yolks, processed meats (like sausage and hot dogs), and fatty meats. Choose healthy foods that are low in saturated fat, trans fat and cholesterol which include: Fruits and vegetables, fiber rich grain products (like whole grain pasta and brown rice), lean meat such as chicken, fish, nuts, seeds, and legumes. (3) Eat Better. Eat small portions. Shop at the grocery with a list and do not stray from it. Tips for a healthy diet include: Limit sodium intake to less than 1500mg daily, avoid prepackaged, processed, and fast foods, choose a diet rich in fruits, vegetables, and whole grain, high fiber foods, and limit saturated & cholesterol in your diet. (4) Manage Blood Pressure. If you have high blood pressure, you should have a cuff at home so that you can check your blood pressure regularly. Be sure you have a good cuff. An arm one is generally better than a wrist one. Bring the cuff to a doctor's appointment to validate that the measurements that your cuff are taking are accurate. Take your blood pressure twice daily when you are sitting down and relaxing. Record the numbers in a log and bring this log with you to your doctors' appointments. (5) Lose Weight if your BMI is above 25. A healthy BMI is between 19-25. To calculate Your BMI, you may use a Standard BMI Calculator on the NIH BMI website: <www.nhlbi.nih.gov/guidelines/obesity/BMI/bmicalc.htm>. Weigh oneself daily. If you are overweight, set a goal to lose weight. A pound a week loss if needed is a good target. (6) Reduce Blood Sugar. Limit foods and liquids with "added sugars." (Added sugars include sucrose, fructose, glucose, maltose, dextrose, high fructose corn syrup, corn syrup, concentrated fruit juice and honey). (7) Stop Smoking. If you smoke, quitting smoking is one of the best things that you can do for your health. Smoking increases your risk of heart attack, stroke, and peripheral vascular disease, which is a build-up of plaque in your arteries. Please discard all the cigarettes and lighters in your house. Have a plan for what you will do when you have the urge to smoke. Direct and second- hand smoke shortens your life as well as the lives of your family, friends and others around you. For your health and the health of those around you, please consider quitting! Proper Bending Body Mechanics: Maintain a wide stance with one foot slightly in front of the other. Keep your back straight. Bend utilizing the strength in your hips and knees. Do not bend at the waist. Maintain the lifted object at your waist-level close to your body. Avoid lifting weight that causes immediately pain or pain anywhere in the body afterwards. Smoking/Nicotine If there was ever one thing that you could do to increase your overall health, decrease your risk of cardiovascular problems by about 39% the second you make the choice, it is to STOP SMOKING. Your body's most instant gratification is the second you stop smoking. We have all heard the studies, read the articles but it is true, smoking is extremely bad for your overall health, and moreover it is detrimental to your bone health. Nicotine, IN ANY FORM, kills bone cells, prevents your body from healing fractures, and significantly prolongs healing after surgery. In spine surgery specifically, it increases your risk of not healing your bones to create a fusion and increases your risk of having a revision surgery due to this up to 60%. I know it is hard. I know it feels impossible. But there are ways. Take control of your life. We are here to help you through it. And when you are ready, ask us and we can direct you to help if you desire. Use the START Plan to Quit Smoking (please visit the Helpguide.org website listed below for more information): S = Set a quit date. Choose a date within the next 2 weeks, so you have enough time to prepare without losing your motivation to quit. If you mainly smoke at work, quit on the weekend, so you have a few days to adjust to the change. T = Tell family, friends, and co-workers that you plan to quit. Let your friends and family in on your plan to quit smoking and tell them you need their support and encouragement to stop. Look for a quit erika who wants to stop smoking as well. You can help each other get through the rough times. A = Anticipate and plan for the challenges you'll face while quitting. Most people who begin smoking again do so within the first 3 months. You can help yourself make it through by preparing ahead for common challenges, such as nicotine withdrawal and cigarette cravings. R = Remove cigarettes and other tobacco products from your home, car, and work. Throw away all your cigarettes (no emergency pack!), lighters, ashtrays, and matches. Wash your clothes and freshen up anything that smells like smoke. Shampoo your car, clean your drapes and carpet, and steam your furniture. T = Talk to your doctor about getting help to quit. Your doctor can prescribe medication to help with withdrawal and suggest other alternatives. If you can't see a doctor, you can get many products over the counter at your local pharmacy or grocery store, including the nicotine patch, nicotine lozenges, and nicotine gum. Resources for Quitting Smoking: <https://www.[place].gov/documents/[facility]/Quit_Tobacco_Resources_for_patients_313 480_7.pdf> Supplementation: Take recommended dosages of Vitamin D and Calcium to help fortify your bones and help them to heal. See your health maintenance packet for dosages and recommended levels. DVT/VTE prophylaxis: You will be given compression stockings from the hospital. Wear these daily for the first two weeks after surgery. You may take them off at night. You may be prescribed a medication to help thin your blood. Take this as directed. If you are not prescribed this medication, early and frequent ambulation has been shown to be the best prophylaxis to deep vein thrombosis and sequelae related to this event. Discharge Disposition: HOME WITH HOME HEALTH SERVICES
[2021-12-03 14:15] VITALS: BP 147/90; PULSE 88; RESP 16; TEMP 98.4
--- NOTE | 2021-12-03 14:31 | P.OP ---
Date of Procedure: 12/02/21 Preoperative Diagnosis: 1. L2 vertebral compression fracture >30%, acute 2. s/p ffs 3. Mechanical low back pain Postoperative Diagnosis: 1. L2 vertebral compression fracture >30%, acute 2. s/p ffs 3. Mechanical low back pain Procedure(s) Performed: 1. Flouroscopic needle localization of L2 (64949) 2. L2 kyphoplasty with biopsy (36228) Implants: [place] cement Anesthesia: GETA Surgeon: Brent Cuellar Estimated Blood Loss (ml): 10 IV fluids (ml): 250 Urine output (ml): 0 Pathology: other (L2 vertebral body) Condition: stable Disposition: PACU Indications for Procedure: Chet Lobo is presenting for evaluation of severe low back pain with L2 kyphoplasty. It was my pleasure to have seen and examined Chet Lobo. In our visit today we have had a chance to go over subjective complaints, physical examination findings and treatments including the natural course history without intervention and various interventional options. The patients imaging demonstrates [Findings]. On physical exam, Chet Lobo demonstrates: incisions look good, no drainage or signs of any infection. No EEE, edema, ecchymosis. ROM and strength testing not tolerated due to severe pain. Patient ambulating with the use of a wheelchair. I have explained to the patient that as their condition progresses it will cause further neurological deficits and eventual paralysis. Based on the patients imaging, physical exam, and the rapid progression and disabling nature of their symptoms, at this time I recommend surgery in the form of a: L2 kyphoplasty. I discussed the risk and benefits of this procedure at length with Chet Lobo. The patient and his agreed to considered pursuing the procedure a bovementioned. Prior to surgery, she should follow up with her PCP (Cardio, ID, IM etc) for clearance. Questions were invited and answered, and the patient wishes to proceed as outlined below. Currently, I am recommendin.L2 kyphoplasty Description of Procedure: The patient was seen and examined in the preoperative area. All preoperative protocols were followed. Informed consent was obtained risks and benefits of the procedure were discussed at length. Risks including bleeding infection damage to the surrounding tissue and risk of reoperation were discussed with the patient. Risk of anesthesia up to and including was a discussed with the patient. These are outlined in the risk review. They were willing to accept these risks and all of the risks of surgery. The patient was given a weight- based dose of antibiotics in the form of 2 g Ancef. The patient was seen and evaluated by the anesthesia team who deemed them fit for surgery. The site was marked, the patient was willing to proceed with the procedure. The patient was transferred to the operative suite by the Department of anesthesia. They were then drifted off to sleep by the department anesthesia and GETA was performed. The patient tolerated this well. Once confirmation of lines and ventilation the patient was transferred to a prone Luiz table very carefully. All bony prominences including wrists, elbows, axilla, chest, hips, and thighs, and feet were padded very well. Special attention was paid to the genitalia and these were padded accordingly. SCDs were placed on bilateral lower extremities and were connected. Arms were well padded and placed on arm boards up and out in the 90/90 position. Once in position, again we confirmed good ventilation capabilities and that lines were running appropriately. The patient's lumbar spine was then exposed. 1010s were placed outlining the incision site. Standard alcohol was used to clean the incision site and allowed to dry. C-arm was used to biomark the patient and confirm level for incision which was marked with a skin marker. Operative briefing was performed with all teams and everyone in agreement to proceed. The patient was then prepped and draped in a normal sterile fashion. Timeout was then performed and all parties were in agreement with the procedure to be performed. AP and lateral fluoroscopic imaging was used to target and entry point with Jamshidi skin neck was made and Jamshidi placed pedicles targeted on the left- hand side Jamshidi was passed through this area to was half-way through the pedicle in AP and lateral fluoroscopic imaging guided for depth we then advanced the Jamshidi until it was center center within the body. We confirmed this on AP and lateral fluoroscopic imaging. We then drilled this area and then passed a biopsy needle and take a biopsy of the L2 vertebral body and sent this to pathology. The balloon was then inserted and inflated first anteriorly which provided reduction under lateral fluoroscopic guidance of the L2 endplate we then moved the balloon more posteriorly and inflated at which allowed for more reduction of the endplate in this area. Once we had good reduction and good space the tin recovery worker trocar was advanced through the Jamshidi and under lateral fluoroscopic guidance the cement was injected. We monitored the patient for any changes in vital signs and anesthesia was made aware there is no cement arteriogram venogram or myelogram. Cement showed good fill throughout the L2 vertebral body and superior endplate. This maintained the reduction in this area. We then removed the tin recovery worker trocar once the appropriate amount of cement had filled the body and confirmed this under AP and lateral fluoroscope Imaging. The center of the Jamshidi was then inserted and any further cement was pushed into the body we then carefully removed the Jamshidi making sure there was no cement extravasation. Final AP and lateral imaging showed good cement fill in good position. We clean the wound and closed it with 3-0 Monocryl followed by skin glue. It was then dressed sterilely with a Band-Aid. The patient was transferred back to their hospital bed atraumatically. Patient was then awakened and extubated by the department of anesthesia having tolerated the procedure very well with no complications. They were transferred to the postoperative care unit in stable condition.
--- NOTE | 2021-12-03 14:48 | P.CONS ---
History of Present Illness - Reason for Consult Consult date: 12/03/21 Medical management diabetes mellitus, chronic renal failure, hypertension, Requesting physician: Brent Cuellar - Chief Complaint Recent fall,L2 compression fracture, s/p kyphoplasty - History of Present Illness This is a 80-year-old gentleman with past medical history of atrial fibrillation, not on anticoagulation secondary to multiple falls and syncope, CKD,post renal transplant on immunosuppressive medications,Polio, diabetes mellitus, hypertension, hyperlipidemia, hypothyroidism, parathyroid surgery, anxiety, depression, chronic back pain, status post L3-L5 fusion with decompression, reported a fall approximately 2 weeks ago sustaining an L2 compression fracture. Patient is postop L2 kyphoplasty. Tolerated procedure well. Pain control. Passing flatus. Tolerating diet with no nausea vomiting or diarrhea. Appearing to work with physical therapy to decide whether he will be discharged to subacute rehab versus home with outpatient physical therapy. Denies any chest pain, palpitations or shortness of breath. Vital signs stable. Patient reports he is being discharged today. Past Medical History Past Medical History: Atrial Fibrillation, Cancer, Diabetes Mellitus, Hyperlipidemia, Hypertension, Prostate Disorder, Renal Disease, Thyroid Disorder Additional Past Medical History / Comment(s): polio at age 6, hx Melamoma, "slow growing cancer of prostate, being watched by Dr Dasilva." Hard of hearing, LOW PLATELETS, gout, spinal stenosis, fx spine from fall, History of Any Multi-Drug Resistant Organisms: None Reported Past Surgical History: Back Surgery, Orthopedic Surgery Additional Past Surgical History / Comment(s): left kidney transplant 2002, parathyroid surgery, arthroscopy knee surgery, pericardiocentesis x 2, cancer removed from ear, leana cataracts, PICC line/later removed Past Anesthesia/Blood Transfusion Reactions: No Reported Reaction Past Psychological History: Depression Additional Psychological History / Comment(s): . Smoking Status: Never smoker Past Alcohol Use History: Rare Past Drug Use History: None Reported - Past Family History Father Family Medical History: Deep Vein Thrombosis (DVT) Son(s) Family Medical History: Cancer Additional Family Medical History / Comment(s): Skin cancer. Mother Family Medical History: Cancer Additional Family Medical History / Comment(s): . Medications and Allergies Home Medications Medication Instructions Recorded Confirmed Type Finasteride [Proscar] 5 mg PO DAILY@1000 02/09/17 12/02/21 History Tamsulosin HCl [Flomax] 0.4 mg PO DAILY@1000 02/09/17 12/02/21 History Multivitamins, Thera [Multivitamin 1 tab PO DAILY@1000 12/31/18 12/02/21 History (formulary)] Atorvastatin Calcium [Lipitor] 20 mg PO HS 10/14/19 12/02/21 History Vit C/E/Zn/Coppr/Lutein/Zeaxan 1 cap PO HS 12/18/19 12/02/21 History [Preservision Areds 2 Softgel] Calcium Carbonate [Tums] 1,000 mg PO DAILY 12/28/19 12/02/21 History Pantoprazole [Protonix] 40 mg PO DAILY@1000 12/28/19 12/02/21 History Metoprolol Tartrate [Lopressor] 50 mg PO BID@1000,219903/05/20 12/02/21 History Tacrolimus [Prograf] 1 mg PO DAILY@1000 04/03/20 12/02/21 History mycophenolate mofetiL [Cellcept] 250 mg PO BID@1000,219904/03/20 12/02/21 History predniSONE 10 mg PO DAILY@1000 04/03/20 12/02/21 History DULoxetine HCL [Cymbalta] 120 mg PO 1000 12/01/20 12/02/21 History INSULIN LISPRO (HumaLOG) [humaLOG] See Protocol SQ AC-TID 12/01/20 12/02/21 History Levothyroxine Sodium [Synthroid] 75 mcg PO 1000 12/01/20 12/02/21 History Tacrolimus [Prograf] 1.5 mg PO HS@219912/01/20 12/02/21 History Aspirin 81 mg PO DAILY 07/12/21 12/02/21 History Cyclobenzaprine [Flexeril] 5 mg PO 0800 07/12/21 12/02/21 History Gabapentin 300 mg PO BID 07/12/21 12/02/21 History QUEtiapine [SEROquel] 100 mg PO HS@219907/12/21 12/02/21 History Rosuvastatin Calcium [Crestor] 5 mg PO HS 07/12/21 12/02/21 History Sodium Bicarbonate Tab 650 mg PO 1000 07/12/21 12/02/21 History amLODIPine [Norvasc] 2.5 mg PO 1000,2200 09/02/21 12/02/21 History rOPINIRole HCL [Requip] 1 mg PO HS 09/02/21 12/02/21 History Sennosides/Docusate Sodium 2 each PO HS PRN #40 tablet 09/24/21 12/02/21 Rx [Senna-S 8.6-50 mg Tablet] Eltrombopag Olamine [Promacta] 25 mg PO 0800 12/01/21 12/02/21 History HYDROcodone/APAP 5-325MG [[place] 1 - 2 tab PO Q6HR PRN 12/01/21 12/02/21 History 5-325] Insulin Glargine/Lixisenatide 25 units SQ 1000 12/01/21 12/02/21 History [[place] 100 Unit-33 Mcg/ml Pen] Cyclobenzaprine [Flexeril] 5 mg PO TID #60 tablet 12/03/21 Rx Gabapentin 300 mg PO BID #60 cap 12/03/21 Rx HYDROcodone/APAP 10-325MG [[place] 1 tab PO Q4-6H PRN #56 tab 12/03/21 Rx 10-325] Sennosides/Docusate Sodium [[place] 1 each PO DAILY PRN #20 tablet 12/03/21 Rx Plus 8.6-50 mg Tablet] cefaDROXiL [Duricef] 500 mg PO Q12HR 5 Days #10 cap 12/03/21 Rx Allergies Allergy/AdvReac Type Severity Reaction Status Date / Time morphine Allergy Severe Itching Verified 12/02/21 14:14 Physical Exam Vitals: Vital Signs Temp Pulse Pulse Resp BP Pulse Ox 12/03/21 05:55 98.7 F 80 18 126/82 95 12/03/21 04:55 98.6 F 81 18 130/80 92 L 12/03/21 02:55 82 18 121/81 93 L 12/02/21 22:56 86 18 12/02/21 22:55 80 18 132/81 85 L 12/02/21 22:20 86 128/85 93 L 12/02/21 22:10 84 124/69 90 L 12/02/21 21:55 97.8 F 80 18 125/70 98 12/02/21 21:30 74 17 123/68 96 12/02/21 20:30 78 18 140/72 96 12/02/21 20:00 83 16 152/88 94 L 12/02/21 19:30 70 16 97 12/02/21 18:55 77 18 140/77 98 12/02/21 18:40 88 16 148/80 99 12/02/21 18:25 74 17 142/76 95 12/02/21 18:10 80 16 142/77 96 12/02/21 17:55 77 16 140/73 96 12/02/21 17:41 89 16 140/73 100 12/02/21 17:26 97.6 F 83 16 163/89 97 12/02/21 14:05 96.8 F L 84 16 165/99 97 Intake and Output 12/02/21 12/03/21 12/03/21 22:59 06:59 14:59 Intake Total 550 Output Total 750 Balance 550 -750 Intake: IV 550 Output: Urine 750 Other: Voiding Method Urinal # Voids 2 2 Weight 90.718 kg - Exam PHYSICAL EXAM: VITAL SIGNS: As above GENERAL: Alert and oriented 3 ,Sitting up in bed, no acute distress, eating breakfast HEENT: Conjunctivae normal. eyes normal. MMM. NECK: Supple, No JVD. CARDIOVASCULAR: S1, S2 regular. Systolic murmur RESPIRATION: Breath sounds diminished in the bases. No rhonchi or crackles. ABDOMEN: Soft, nontender.No guarding. no masses palpable. No rebound, rigidity, guarding .Bowel sounds heard. EXTREMITIES: No edema. no swelling. Diminished pulses. Wearing JAI hose. NERVOUS SYSTEM: Cranial N 2-12 grossly normal. Moves all 4 limbs. No focal deficits. Strength and sensation grossly intact. Skin: Warm and dry, no rash. Results Labs: Abnormal Lab Results - Last 24 Hours (Table) 12/02/21 12/02/21 12/03/21 Range/Units 14:08 17:32 00:05 POC Glucose (mg/dL) 183 H 206 H 246 H (75-99) mg/dL 12/03/21 Range/Units 07:03 POC Glucose (mg/dL) 201 H (75-99) mg/dL Assessment and Plan Assessment: L2 compression fracture status post L2 kyphoplasty with biopsy Recent L3-L5 fusion with decompression Chronic persistent Atrial fibrillation not on any anti-coagulation because of his multiple falls and syncope in the past Chronic renal failure stage IIIa, History of renal transplant. Baseline creatin ine 1.2-1.7 Chronic anemia secondary to the above Type 2 diabetes mellitus, A1c 5.9 CAD, history of CABG Hypertension Hyperlipidemia Hypothyroidism History of slow growing prostate cancer, under surveillance with Dr. Craig Depression Anxiety Plan: Continue on current medication regime ,monitoring and symptomatic treatment. Close monitoring of renal function. BMP pending. Aggressive pulmonary toileting with incentive spirometer ordered. Home medications include immunosuppressive medications have been resumed. Pain management/Discharge planning in progress as per primary, orthopedic spine. Follow up with PCP in one week. Thank you for the consult. The impression and plan of care has been dictated as directed. : I performed a history and examination of this patient, discussed the same with the dictator. I agree with the dictator's note ,documented as a scribe. Any additional findings or plans will be noted.
[2021-12-03] MEDS ORDERED: ATORVASTATIN 20 MG TAB PO SCH (21:00)
[2021-12-03] MEDS ORDERED: VIT A,C & E-LUTEIN-MINERALS 1 EACH TAB PO SCH (21:00)
[2021-12-03] MEDS ORDERED: NON FORMULARY DRUG (Rosuvastatin Calcium [Crestor] 5 MG Tablet) PO SCH (21:00)
[2021-12-03] MEDS ORDERED: QUEtiapine 100 MG TAB PO SCH (22:00)
[2021-12-04] MEDS ORDERED: ELTROMBOPAG OLAMINE 25 MG PO SCH (08:00)
[2021-12-04] MEDS ORDERED: CALCIUM CARBONATE 500 MG CHEWABLE PO SCH (09:00)
== END 2021-12-03 15:22 | disposition home health service (06) ==
LOC: OR 13:26 → 5NMEDONC 17:47 → OR 12-03 15:22
PROVIDERS: ATTEND Orthopaedic Surgery
DX: G89.29 Other chronic pain (principal); M54.9 Dorsalgia, unspecified; I12.9 Hypertensive chronic kidney disease with stage 1 through stage 4 chronic kidney disease, or unspecified chronic kidney disease; N18.9 Chronic kidney disease, unspecified; Z94.0 Kidney transplant status; R29.6 Repeated falls; E78.5 Hyperlipidemia, unspecified; F17.210 Nicotine dependence, cigarettes, uncomplicated; E03.9 Hypothyroidism, unspecified; F41.9 Anxiety disorder, unspecified; F32.A Depression, unspecified; Z98.890 Other specified postprocedural states; Z86.12 Personal history of poliomyelitis; Z85.820 Personal history of malignant melanoma of skin; C61 Malignant neoplasm of prostate; H91.90 Unspecified hearing loss, unspecified ear; M48.00 Spinal stenosis, site unspecified; Z98.42 Cataract extraction status, left eye; Z98.41 Cataract extraction status, right eye; Z82.49 Family history of ischemic heart disease and other diseases of the circulatory system; Z80.8 Family history of malignant neoplasm of other organs or systems; Z79.82 Long term (current) use of aspirin; Z79.4 Long term (current) use of insulin; Z79.52 Long term (current) use of systemic steroids; Z79.899 Other long term (current) drug therapy; Z88.5 Allergy status to narcotic agent
CPT/HCPCS: 97162; 86900; 86901; 86850; 88342; 88307; 88341; 72100; 22514; S0138; J0690; J2405; J7517; J3010; J2370; J0330; J2704; J7512; J1170; Q9966; J2001

== ENCOUNTER → 2022-01-20 | Outpatient (CLI) | payer MEDICARE ==
[2022-01-20 18:10] LABS: Creatinine,Urine Random 65.6 mg/dL; Protein/Creatinine Ratio,Urine 0.244
[2022-01-20 19:01] LABS: Basophils # (A) 0.09 X 10*3/uL (0.00-0.10); Basophils % (A) 0.9 %; Eosinophils # (A) 0.14 X 10*3/uL (0.04-0.35); Eosinophils % (A) 1.4 %; HCT 51.7 % (39.6-50.0); HGB 15.3 g/dL (13.0-17.0); Immature Grans, Automated 1.3 %; Lymphocytes # (A) 1.72 X 10*3/uL (0.90-5.00); Lymphocytes % (A) 17.7 %; MCH 25.5 pg (27.0-32.0); MCHC 29.6 g/dL (32.0-37.0); Mean Platelet Volume 10.5 fL (9.5-12.2); Monocytes # (A) 0.82 X 10*3/uL (0.20-1.00); Monocytes % (A) 8.4 %; NRBC Per 100 WBC 0 /100 WBCS (0.0-0.0); Neutrophils # (A) 6.82 X 10*3/uL (1.80-7.70); Neutrophils % (A) 70.3 %; Platelet Count 140 X 10*3/uL (140-440); RBC 6.01 X 10*6/uL (4.40-5.60); RDW 16.5 % (11.5-14.5); WBC 9.72 X 10*3/uL (4.50-10.00)
[2022-01-20 19:17] LABS: Albumin 4.3 g/dL (3.8-4.9); Ferritin 51.6 ng/mL (22.0-322.0)
[2022-01-20 20:08] LABS: % Iron Saturation 32.88 (15.00-50.00); African American GFR (CKD) 46.8 (60.0-200.0); Anion Gap 20.5 mmol/L (10.00-18.00); BUN/Creat Ratio 15.31 Ratio (12.00-20.00); Blood Urea Nitrogen 24.5 mg/dL (9.0-27.0); Calcium 9.1 mg/dL (8.7-10.3); Carbon Dioxide 20.5 mmol/L (20.0-27.5); Magnesium 1.6 mg/dL (1.5-2.4); Non-African American GFR(CKD) 40.4 (60.0-200.0); Phosphorus 3.9 mg/dL (2.4-5.1); Potassium 4.2 mmol/L (3.5-5.5); Uric Acid 6.9 mg/dL (3.7-8.7)
[2022-01-21 01:04] LABS: Appearance,Urine Clear (Clear); Bilirubin,Urine Negative (Negative); Blood,Urine Negative (Negative); Color,Urine Yellow (Yellow); Ketones,Urine Negative (Negative); Nitrite,Urine Negative (Negative); Specific Gravity,Urine 1.009 (1.001-1.030); Urobilinogen,Urine 0.2 (0.2,1.0)
== END | disposition home or self-care (01) ==
LOC: LABWHC1 13:21
PROVIDERS: ATTEND Internal Medicine Nephrology
DX: E55.9 Vitamin D deficiency, unspecified (principal); N25.81 Secondary hyperparathyroidism of renal origin; M10.9 Gout, unspecified; N39.0 Urinary tract infection, site not specified; N18.31 Chronic kidney disease, stage 3a
CPT/HCPCS: 36415; 80048; 80197; 81003; 82040; 82306; 82570; 82728; 83036; 83540; 83550; 83735; 83970; 84100; 84156; 84550; 85025

== ENCOUNTER 2022-03-21 10:00 | Day surgery (SDC) | payer MEDICARE ==
[~2022-03-21 10:00] MED LIST changes: -ACETAMINOPHEN TAB 500 MG TAB PO PRN; -GABAPENTIN 300 MG CAP PO PRN; +LACTATED RINGERS 1,000 ML IV SCH; -ONDANSETRON 4 MG/2 ML VIAL IVP PRN; -TRANEXAMIC ACID IN NACL,ISO-OS 1,000 MG in SALINE 1 100ML.BAG IVPB PRN
--- NOTE | 2022-03-21 10:42 | P.GSHP ---
History of Present Illness H&P Date: 03/21/22 Chief Complaint: Melanoma 81-year-old male recently seen by dermatology. Patient had a left shoulder lesion that was biopsied by shave technique. 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 True depth unclear given the shave approach. Patient does not feel any other masses or abnormalities. 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." Hard of hearing, LOW PLATELETS, History of Any Multi-Drug Resistant Organisms: None Reported Past Surgical History: Unable to Obtain, Orthopedic Surgery Additional Past Surgical History / Comment(s): 12/02/21, KYPHOPLASTY AND BX (NEG). Leftkidney transplant 2002, parathyroid surgery, arthroscopy knee surgery, pericardiocentesis, cancer removed from ear, Past Anesthesia/Blood Transfusion Reactions: No Reported Reaction Past Psychological History: Anxiety, Depression Additional Psychological History / Comment(s): Pt resides with spouse. He uses a walker if walking long distances or going out. His spouse manages his meds and does most of the driving. He has a glucometer Smoking Status: Never smoker Past Alcohol Use History: Rare Past Drug Use History: None Reported - Past Family History Father Family Medical History: Deep Vein Thrombosis (DVT) Son(s) Family Medical History: Cancer Additional Family Medical History / Comment(s): Skin cancer. Mother Family Medical History: Cancer Additional Family Medical History / Comment(s): . Medications and Allergies Home Medications Medication Instructions Recorded Confirmed Type Finasteride [Proscar] 5 mg PO DAILY@1000 02/09/17 03/18/22 History Tamsulosin HCl [Flomax] 0.4 mg PO QAM 02/09/17 03/18/22 History Multivitamins, Thera [Multivitamin 1 tab PO DAILY@1000 12/31/18 03/18/22 History (formulary)] Atorvastatin Calcium [Lipitor] 20 mg PO HS 10/14/19 03/18/22 History Vit C/E/Zn/Coppr/Lutein/Zeaxan 1 cap PO HS 12/18/19 03/18/22 History [Preservision Areds 2 Softgel] Calcium Carbonate [Tums] 1,000 mg PO DAILY 12/28/19 03/18/22 History Pantoprazole [Protonix] 40 mg PO DAILY@1000 12/28/19 03/18/22 History Metoprolol Tartrate [Lopressor] 50 mg PO BID@1000,2200 03/05/20 03/18/22 History Tacrolimus [Prograf] 1 mg PO DAILY@1000 04/03/20 03/18/22 History mycophenolate mofetiL [Cellcept] 250 mg PO BID@1000,2200 04/03/20 03/18/22 History predniSONE 10 mg PO QAM 04/03/20 03/18/22 History DULoxetine HCL [Cymbalta] 120 mg PO 1000 12/01/20 03/18/22 History INSULIN LISPRO (HumaLOG) [humaLOG] See Protocol SQ AC-TID 12/01/20 03/18/22 History Levothyroxine Sodium [Synthroid] 75 mcg PO 1000 12/01/20 03/18/22 History Tacrolimus [Prograf] 1.5 mg PO HS@2200 12/01/20 03/18/22 History Aspirin 81 mg PO DAILY 07/12/21 03/18/22 History Cyclobenzaprine [Flexeril] 5 mg PO 0800 PRN 07/12/21 03/18/22 History Gabapentin 300 mg PO BID PRN 07/12/21 03/18/22 History QUEtiapine [SEROquel] 100 mg PO HS@2200 07/12/21 03/18/22 History Rosuvastatin Calcium [Crestor] 5 mg PO HS 07/12/21 03/18/22 History Sodium Bicarbonate Tab 650 mg PO 1000 07/12/21 03/18/22 History amLODIPine [Norvasc] 2.5 mg PO HS 09/02/21 03/18/22 History rOPINIRole HCL [Requip] 1 mg PO HS 09/02/21 03/18/22 History Eltrombopag Olamine [Promacta] 25 mg PO 0800 12/01/21 03/18/22 History Insulin Glargine/Lixisenatide 25 units SQ 1000 12/01/21 03/18/22 History [[place] 100 Unit-33 Mcg/ml Pen] HYDROcodone/APAP 10-325MG [[place] 0.5 tab PO Q4-6H PRN 03/18/22 03/18/22 History 10-325] Allergies Allergy/AdvReac Type Severity Reaction Status Date / Time morphine Allergy Severe Itching Verified 03/18/22 08:15 Surgical - Exam Physical exam: General: Well-developed, well-nourished HEENT: Normocephalic, sclerae nonicteric Abdomen: Nontender, nondistended Extremities: No edema, left shoulder wound measuring 1.4 cm. There is a small area of discoloration measuring 3 x 4 mm. There is no palpable adenopathy noted. Neuro: Alert and oriented Assessment and Plan (1) Malignant melanoma of left shoulder Narrative/Plan: 81-year-old male with left shoulder melanoma. True depth unclear but thus far superficial thin melanoma suspected. Options reviewed with patient. He would like to proceed with local excision at this time. We'll proceed with wide local excision. Risks of bleeding, infection, recurrence, possible need for further surgery, poor healing, dehiscence reviewed. He understands and wishes to proceed. Current Visit: Yes Status: Acute Code(s): C43.62 - MALIGNANT MELANOMA OF LEFT UPPER LIMB, INCLUDING SHOULDER SNOMED Code(s): 305693163
[2022-03-21 10:44] VITALS: TEMP 96.2
[2022-03-21 11:04] LABS: Glucose,Whole Blood 101 mg/dL (70-110)
[2022-03-21] MEDS ORDERED: fentaNYL (PF) 50 MCG/ML 2 ML AMP ONE (12:48)
[2022-03-21] MEDS ORDERED: MIDAZOLAM 2 MG/2 ML VIAL ONE (12:48)
[2022-03-21] MEDS ORDERED: PROPOFOL 10 MG/ML 20 ML VIAL IV ONE (12:48)
[2022-03-21] MEDS ORDERED: BUPIVACAIN-EPI 0.25%-1:200,000 30 ML VIAL SQ ONE ×2 (13:04→13:07)
[2022-03-21] MEDS ORDERED: traMADol 50 MG TAB PO PRN (13:25)
[2022-03-21] MEDS ORDERED: NALOXONE 0.4 MG/ML 1 ML VIAL IV PRN (13:25)
--- NOTE | 2022-03-21 13:29 | P.OP ---
Date of Procedure: 03/21/22 Procedure(s) Performed: PREOPERATIVE DIAGNOSIS: Left shoulder melanoma POSTOPERATIVE DIAGNOSIS: Same PROCEDURE: Wide excision left shoulder melanoma with intermediate closure SURGEON: Yvette EBL: 5 mL ANESTHESIA: Mac COMPLICATIONS: None OPERATIVE PROCEDURE: Patient placed in the supine position. The patient sedated per anesthesia that time. Left shoulder prepped and draped sterilely. A 3.0 x 6.0 centimeter elliptical incision was made surrounding the atypical appearing skin lesion with the recent scar. Subcutaneous tissues were divided using electrocautery. Specimen was sent to pathology. Flaps were then made medially and laterally using electrocautery. Subcutaneous tissues closed using interr upted 3-0 Vicryl sutures. Skin closed using a running 4-0 nylon suture. Length of immediate closure 6 cm. Sterile dressings then applied. DISPOSITION: Stable to recovery room
[2022-03-21 13:51] VITALS: BP 121/72; PULSE 88; RESP 18
== END 2022-03-21 14:25 | disposition home or self-care (01) ==
LOC: OR 10:00
PROVIDERS: ATTEND Surgery
DX: C43.62 Malignant melanoma of left upper limb, including shoulder (principal); I48.91 Unspecified atrial fibrillation; E78.5 Hyperlipidemia, unspecified; E07.9 Disorder of thyroid, unspecified; E11.22 Type 2 diabetes mellitus with diabetic chronic kidney disease; I12.9 Hypertensive chronic kidney disease with stage 1 through stage 4 chronic kidney disease, or unspecified chronic kidney disease; N18.9 Chronic kidney disease, unspecified; Z85.46 Personal history of malignant neoplasm of prostate; Z85.820 Personal history of malignant melanoma of skin; I25.10 Atherosclerotic heart disease of native coronary artery without angina pectoris; I49.9 Cardiac arrhythmia, unspecified; N40.0 Benign prostatic hyperplasia without lower urinary tract symptoms; F41.8 Other specified anxiety disorders; Z88.6 Allergy status to analgesic agent; Z79.84 Long term (current) use of oral hypoglycemic drugs; Z79.4 Long term (current) use of insulin; Z79.890 Hormone replacement therapy; Z79.891 Long term (current) use of opiate analgesic; Z79.899 Other long term (current) drug therapy
CPT/HCPCS: 11600; 12032; J2250; J1100; J2405; J3010; J2704; 88305; 88341; 88342

== ENCOUNTER → 2022-04-30 | Outpatient (CLI) | payer MEDICARE ==
[2022-04-30 16:29] LABS: Basophils # (A) 0.08 X 10*3/uL (0.00-0.10); Basophils % (A) 0.7 %; Eosinophils # (A) 0.19 X 10*3/uL (0.04-0.35); Eosinophils % (A) 1.7 %; HCT 45.3 % (39.6-50.0); HGB 14.1 g/dL (13.0-17.0); Lymphocytes # (A) 1.89 X 10*3/uL (0.90-5.00); Lymphocytes % (A) 16.4 %; MCH 26.8 pg (27.0-32.0); MCHC 31.1 g/dL (32.0-37.0); Mean Platelet Volume 10.2 fL (9.5-12.2); Monocytes # (A) 0.88 X 10*3/uL (0.20-1.00); Monocytes % (A) 7.7 %; NRBC Per 100 WBC 0 /100 WBCS (0.0-0.0); Neutrophils # (A) 8.33 X 10*3/uL (1.80-7.70); Neutrophils % (A) 72.5 %; Platelet Count 237 X 10*3/uL (140-440); RBC 5.27 X 10*6/uL (4.40-5.60); RDW 16.2 % (11.5-14.5); WBC 11.49 X 10*3/uL (4.50-10.00)
[2022-04-30 16:54] LABS: ALT 21 U/L (10-49); AST 20 U/L (14-35); African American GFR (CKD) 61.3 (60.0-200.0); Albumin/Globulin Ratio 2.01 (1.60-3.17); Alkaline Phosphatase 89 U/L (41-126); BUN/Creat Ratio 18.75 Ratio (12.00-20.00); Calcium 8.8 mg/dL (8.7-10.3); Carbon Dioxide 24.5 mmol/L (20.0-27.5); Chloride 102 mmol/L (96-109); Chol/HDL Ratio 3.62 Ratio; Glucose 136 mg/dL (70-110); LDL Cholesterol,Calculated 75.3 mg/dL (0.0-131.0); Non-African American GFR(CKD) 52.9 (60.0-200.0); Phosphorus 4.4 mg/dL (2.4-5.1); Potassium 4.2 mmol/L (3.5-5.5); Sodium 142 mmol/L (135-145); Total Protein 5.9 g/dL (6.2-8.2)
== END | disposition home or self-care (01) ==
LOC: LABWHC1 10:58
PROVIDERS: ATTEND Internal Medicine Nephrology
DX: N18.31 Chronic kidney disease, stage 3a (principal); R80.9 Proteinuria, unspecified; N39.0 Urinary tract infection, site not specified; D63.1 Anemia in chronic kidney disease
CPT/HCPCS: 36415; 80053; 80061; 80197; 84100; 85025

== ENCOUNTER 2022-06-30 14:18 | Emergency (ER) | payer MEDICARE ==
[2022-06-30 14:32] VITALS: RESP 16; TEMP 96
--- NOTE | 2022-06-30 16:24 | CT ---
EXAMINATION TYPE: CT brain alphonso renteria DATE OF EXAM: 06/30/2022 COMPARISON: 07/12/2020 HISTORY: Fall, head pain, low BP. CT DLP: 1588.[address] of the brain was performed. The ventricles, basal cisterns and sulci overlying the cerebral convexities demonstrate mild enlargem ent. There is no evidence for intracranial hemorrhage or sulcal effacement. There is decreased attenuatio n about the periventricular white matter and deep white matter of both cerebral hemispheres, compatib le with chronic small vessel ischemia. No mass effects are seen. If symptoms persist consider MRI. Osseous calvarium is intact. Moderate opacification left maxillary sinus with inspissated mucus. IMPRESSION: 1. Age related atrophic and chronic small vessel ischemic change without acute intracranial process seen at this time. CT Cervical Spine: Unenhanced CT of the cervical spine was performed with bone and soft tissue window settings submitted . Coronal and sagittal reconstruction is obtained. There is normal alignment and prevertebral soft tissues. No evidence for acute cervical fracture . Scattered degenerative disc disease and spondylosis. Biapical scarring. IMPRESSION: 1. No evidence for acute fracture or subluxation of the cervical spine.
[2022-06-30 16:53] LABS: Anisocytosis Slight; Basophils # (A) 0.1 k/uL (0-0.2); Basophils % (A) 1 %; Eosinophils % (A) 0 %; HCT 49.7 % (39.0-53.0); HGB 16.4 gm/dL (13.0-17.5); Hypochromasia Slight; Lymphocytes # (A) 0.8 k/uL (1.0-4.8); Lymphocytes % (A) 8 %; MCH 27.2 pg (25.0-35.0); MCV 82.6 fL (80.0-100.0); Mean Platelet Volume 9.7; Monocytes # (A) 0.4 k/uL (0-1.0); Monocytes % (A) 4 %; Neutrophils % (A) 85 %; Platelet Count 159 k/uL (150-450); RBC 6.02 m/uL (4.30-5.90); RDW 16.1 % (11.5-15.5); WBC 9.4 k/uL (3.8-10.6)
[2022-06-30 17:01] LABS: Albumin 4.4 g/dL (3.5-5.0); Calcium 9.1 mg/dL (8.4-10.2); Potassium 4.6 mmol/L (3.5-5.1); Total Bilirubin 1.1 mg/dL (0.2-1.3); Total Protein 6.9 g/dL (6.3-8.2)
[2022-06-30 17:02] LABS: Partial Thromboplastin Time 23.1 sec (22.0-30.0); Prothrombin Time 10.8 sec (9.0-12.0)
[2022-06-30 18:25] VITALS: BP 113/75; PULSE 85
--- NOTE | 2022-06-30 18:27 | ED ---
General Adult HPI - General Chief complaint: Fall Stated complaint: Fall-head injury Time Seen by Provider: 06/30/22 18:00 Source: patient, RN notes reviewed, old records reviewed Mode of arrival: ambulatory Limitations: no limitations - History of Present Illness Initial comments: This is a 81-year-old male presents emergency Department and presents today after a fall. Patient states he got up out of the bed and walked across the kitchen table initially told his he slipped but is not sure that he slept now. Patient states he wonders if his blood pressures a little low because it has been in the past and has fallen in the past because of this. Patient states he felt to his left side of his head on the ground. Patient states he did not l ose consciousness he was not days. Patient denies any headache he says there is a little bit of soreness on the scalp. Patient denies any neck pain patient denies numbness weakness. Patient denies any recent fever chills or cough per patient denies chest pain palpitations difficulty breathing shortness of breath per patient denies abdominal pain patient denies nausea vomiting diarrhea. - Related Data Home Medications Medication Instructions Recorded Confirmed Finasteride [Proscar] 5 mg PO DAILY@1000 02/09/17 03/21/22 Tamsulosin HCl [Flomax] 0.4 mg PO QA 02/09/17 03/21/22 Multivitamins, Thera [Multivitamin 1 tab PO DAILY@1000 12/31/18 03/18/22 (formulary)] Atorvastatin Calcium [Lipitor] 20 mg PO HS 10/14/19 03/21/22 Vit C/E/Zn/Coppr/Lutein/Zeaxan 1 cap PO HS 12/18/19 03/21/22 [Preservision Areds 2 Softgel] Calcium Carbonate [Tums] 1,000 mg PO DAILY 12/28/19 03/21/22 Pantoprazole [Protonix] 40 mg PO DAILY@1000 12/28/19 03/21/22 Metoprolol Tartrate [Lopressor] 50 mg PO BID@1000,219903/05/20 03/21/22 Tacrolimus [Prograf] 1 mg PO DAILY@1000 04/03/20 03/21/22 mycophenolate mofetiL [Cellcept] 250 mg PO BID@1000,219904/03/20 03/21/22 predniSONE 10 mg PO QAM 04/03/20 03/21/22 DULoxetine HCL [Cymbalta] 120 mg PO 1000 12/01/20 03/21/22 INSULIN LISPRO (HumaLOG) [humaLOG] See Protocol SQ AC-TID 12/01/20 03/21/22 Levothyroxine Sodium [Synthroid] 75 mcg PO 1000 12/01/20 03/21/22 Tacrolimus [Prograf] 1.5 mg PO HS@2200 12/01/20 03/21/22 Aspirin 81 mg PO DAILY 07/12/21 03/21/22 Cyclobenzaprine [Flexeril] 5 mg PO 0800 PRN 07/12/21 03/21/22 Gabapentin 300 mg PO BID PRN 07/12/21 03/21/22 QUEtiapine [SEROquel] 100 mg PO HS@2200 07/12/21 03/21/22 Rosuvastatin Calcium [Crestor] 5 mg PO HS 07/12/21 03/21/22 Sodium Bicarbonate Tab 650 mg PO 1000 07/12/21 03/21/22 amLODIPine [Norvasc] 2.5 mg PO HS 09/02/21 03/21/22 rOPINIRole HCL [Requip] 1 mg PO HS 09/02/21 03/21/22 Eltrombopag Olamine [Promacta] 25 mg PO 0800 12/01/21 03/21/22 Insulin Glargine/Lixisenatide 25 units SQ 1000 12/01/21 03/21/22 [[place] 100 Unit-33 Mcg/ml Pen] HYDROcodone/APAP 10-325MG [[place] 0.5 tab PO Q4-6H PRN 03/18/22 03/21/22 10-325] Previous Rx's Medication Instructions Recorded traMADol HCl [Ultram] 50 mg PO Q6H PRN #7 tab 03/21/22 Allergies Allergy/AdvReac Type Severity Reaction Status Date / Time morphine Allergy Severe Itching Verified 03/21/22 10:40 Review of Systems ROS Statement: Those systems with pertinent positive or pertinent negative responses have been documented in the HPI. ROS Other: All systems not noted in ROS Statement are negative. 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." Hard of hearing, LOW PLATELETS, History of Any Multi-Drug Resistant Organisms: None Reported Past Surgical History: Unable to Obtain, Orthopedic Surgery Additional Past Surgical History / Comment(s): 12/02/21, KYPHOPLASTY AND BX (NEG). Leftkidney transplant 2002, parathyroid surgery, arthroscopy knee surgery, pericardiocentesis, cancer removed from ear, Past Anesthesia/Blood Transfusion Reactions: No Reported Reaction Past Psychological History: Anxiety, Depression Smoking Status: Never smoker Past Alcohol Use History: Rare Past Drug Use History: None Reported - Past Family History Father Family Medical History: Deep Vein Thrombosis (DVT) Son(s) Family Medical History: Cancer Additional Family Medical History / Comment(s): Skin cancer. Mother Family Medical History: Cancer Additional Family Medical History / Comment(s): . General Exam - General Exam Comments Initial Comments: GENERAL: Patient is well-developed and well-nourished. Patient is nontoxic and well- hydrated and is in no acute distress. ENT: Neck is soft and supple. No significant lymphadenopathy is noted. Oropharynx is clear. Moist mucous membranes. Neck has full range of motion without eliciting any pain. Patient has left parietal tenderness no abrasion or hematoma noted EYES: The sclera were anicteric and conjunctiva were pink and moist. Extraocular movements were intact and pupils were equal round and reactive to light. Eyelids were unremarkable. PULMONARY: Unlabored respirations. Good breath sounds bilaterally. No audible rales rhonchi or wheezing was noted. CARDIOVASCULAR: There is a regular rate and rhythm without any murmurs gallops or rubs. ABDOMEN: Soft and nontender with normal bowel sounds. SKIN: Skin is clear with no lesions or rashes and otherwise unremarkable. NEUROLOGIC: Patient is alert and oriented x3. Cranial nerves II through XII are grossly intact. Motor and sensory are also intact. Normal speech, volume and content. Symmetrical smile. MUSCULOSKELETAL: Normal extremities with adequate strength and full range of motion. LYMPHATICS: No significant lymphadenopathy is noted PSYCHIATRIC: Normal psychiatric evaluation. Limitations: no limitations Course Vital Signs 06/30/22 14:27 Temperature 96 F L Pulse Rate 87 Respiratory 16 Rate Blood Pressure 91/65 O2 Sat by Pulse 96 Oximetry Medical Decision Making - Medical Decision Making I interpreted the CT the brain. CT of the brain shows no acute normalities. I interpreted the C-spine. C-spine showed no acute fracture. Patient was asymptomatic when I saw the patient in the emergency department. Patient was able to get up without feeling lightheaded block. - Lab Data Result diagrams: 06/30/22 16:36 06/30/22 16:36 Lab Results 06/30/22 06/30/22 06/30/22 Range/Units 16:36 16:36 16:36 WBC 9.4 (3.8-10.6) k/uL RBC 6.02 H (4.30-5.90) m/uL Hgb 16.4 (13.0-17.5) gm/dL Hct 49.7 (39.0-53.0) % MCV 82.6 (80.0-100.0) fL MCH 27.2 (25.0-35.0) pg MCHC 33.0 (31.0-37.0) g/dL RDW 16.1 H (11.5-15.5) % Plt Count 159 (150-450) k/uL MPV 9.7 Neutrophils % 85 % Lymphocytes % 8 % Monocytes % 4 % Eosinophils % 0 % Basophils % 1 % Neutrophils # 8.0 H (1.3-7.7) k/uL Lymphocytes # 0.8 L (1.0-4.8) k/uL Monocytes # 0.4 (0-1.0) k/uL Eosinophils # 0.0 (0-0.7) k/uL Basophils # 0.1 (0-0.2) k/uL Hypochromasia Slight Anisocytosis Slight PT 10.8 (9.0-12.0) sec INR 1.0 (<1.2) APTT 23.1 (22.0-30.0) sec Sodium 139 (137-145) mmol/L Potassium 4.6 (3.5-5.1) mmol/L Chloride 103 (98-107) mmol/L Carbon Dioxide 27 (22-30) mmol/L Anion Gap 9 mmol/L BUN 28 H (9-20) mg/dL Creatinine 1.37 H (0.66-1.25) mg/dL Est GFR (CKD-EPI)AfAm 56 (>60 ml/min/1.73 sqM) Est GFR (CKD-EPI)NonAf 49 (>60 ml/min/1.73 sqM) Glucose 129 H (74-99) mg/dL Calcium 9.1 (8.4-10.2) mg/dL Total Bilirubin 1.1 (0.2-1.3) mg/dL AST 28 (17-59) U/L ALT 23 (4-49) U/L Alkaline Phosphatase 67 (38-126) U/L Total Protein 6.9 (6.3-8.2) g/dL Albumin 4.4 (3.5-5.0) g/dL Disposition Clinical Impression: Fall, Head injury, Orthostatic hypotension Disposition: HOME SELF-CARE Condition: Good Instructions (If sedation given, give patient instructions): Fall Prevention for Older Adults (ED), Hypotension (ED) Additional Instructions: Patient is to follow-up with primary medical care doctor for hypotension Is patient prescribed a controlled substance at d/c from ED?: No Referrals: Narinder Rosenberg DO [Primary Care Provider] - 1-2 days Time of Disposition: 18:27
== END 2022-06-30 19:01 | disposition home or self-care (01) ==
LOC: EC 14:18
DX: S09.90XA Unspecified injury of head, initial encounter (principal); I95.1 Orthostatic hypotension; I48.91 Unspecified atrial fibrillation; E11.9 Type 2 diabetes mellitus without complications; E78.5 Hyperlipidemia, unspecified; I10 Essential (primary) hypertension; E07.9 Disorder of thyroid, unspecified; F41.9 Anxiety disorder, unspecified; F32.A Depression, unspecified; Z88.5 Allergy status to narcotic agent; Z79.4 Long term (current) use of insulin; Z79.82 Long term (current) use of aspirin; Z79.890 Hormone replacement therapy; Z79.899 Other long term (current) drug therapy; W01.0XXA Fall on same level from slipping, tripping and stumbling without subsequent striking against object, initial encounter
CPT/HCPCS: 36415; 70450; 72125; 80053; 85025; 85610; 85730; 99284

== ENCOUNTER → 2022-12-21 | Outpatient (CLI) | payer MEDICARE | END | disposition home or self-care (01) | LOC: LABWHC1 09:49 | PROVIDERS: ATTEND Internal Medicine Nephrology | DX: N18.31 Chronic kidney disease, stage 3a (principal) | CPT/HCPCS: 36415; 80197 ==

== ENCOUNTER 2023-05-31 05:47 | Inpatient (IN) | payer MEDICARE ==
[2023-05-31 06:11] LABS: Basophils % (A) 0 %; Eosinophils # (A) 0.1 k/uL (0-0.7); Eosinophils % (A) 0 %; HCT 42.5 % (39.0-53.0); HGB 13.8 gm/dL (13.0-17.5); Lymphocytes # (A) 0.6 k/uL (1.0-4.8); Lymphocytes % (A) 4 %; MCH 26.5 pg (25.0-35.0); MCHC 32.4 g/dL (31.0-37.0); MCV 81.8 fL (80.0-100.0); Mean Platelet Volume 9.9; Monocytes # (A) 0.5 k/uL (0-1.0); Monocytes % (A) 4 %; Neutrophils # (A) 12.5 k/uL (1.3-7.7); Neutrophils % (A) 91 %; RBC 5.19 m/uL (4.30-5.90); RDW 15.9 % (11.5-15.5); WBC 13.7 k/uL (3.8-10.6)
[2023-05-31 06:21] LABS: ALT 20 U/L (4-49); AST 34 U/L (17-59); African American GFR (CKD) 55 (>60 ml/min/1.73 sqM); Albumin 3.7 g/dL (3.5-5.0); Alkaline Phosphatase 65 U/L (38-126); Anion Gap 14 mmol/L; Blood Urea Nitrogen 32 mg/dL (9-20); Carbon Dioxide 18 mmol/L (22-30); Chloride 104 mmol/L (98-107); Glucose 105 mg/dL (74-99); Non-African American GFR(CKD) 47 (>60 ml/min/1.73 sqM); Sodium 136 mmol/L (137-145); Total Bilirubin 2.1 mg/dL (0.2-1.3); Total Protein 6.1 g/dL (6.3-8.2)
--- NOTE | 2023-05-31 06:21 | ED ---
General Adult HPI - General Chief complaint: Fever Stated complaint: UTI Time Seen by Provider: 05/31/23 06:04 Source: patient, EMS, RN notes reviewed Mode of arrival: EMS Limitations: no limitations - History of Present Illness Initial comments: 82-year-old male with a past medical history significant for diabetes mellitus type 2, hypertension, CKD presents to the emergency department via EMS with a chief complaint of nausea, vomiting, weakness. She reports feeling "bad." For the last couple weeks. He reports increased urinary frequency over the last couple of days with accompanying dysuria. He denies any known fevers, chest pain, or palpitations. He believes he does take a blood thinner. He denies any known recent sick contacts. Denies any known fevers, chills, headache, abdominal pain. Patient is a poor historian. - Related Data Home Medications Medication Instructions Recorded Confirmed Finasteride [Proscar] 5 mg PO DAILY 02/09/17 05/31/23 Tamsulosin HCl [Flomax] 0.4 mg PO DAILY 02/09/17 05/31/23 Multivitamins, Thera [Multivitamin 1 tab PO DAILY 12/31/18 05/31/23 (formulary)] Vit C/E/Zn/Coppr/Lutein/Zeaxan 1 cap PO HS 12/18/19 05/31/23 [Preservision Areds 2 Softgel] Pantoprazole [Protonix] 40 mg PO DAILY 12/28/19 05/31/23 Metoprolol Tartrate [Lopressor] 25 mg PO DAILY 03/05/20 05/31/23 Tacrolimus [Prograf] 1 mg PO BID 04/03/20 05/31/23 mycophenolate mofetiL [Cellcept] 250 mg PO BID 04/03/20 05/31/23 DULoxetine HCL [Cymbalta] 120 mg PO DAILY 12/01/20 05/31/23 Levothyroxine Sodium [Synthroid] 75 mcg PO DAILY 12/01/20 05/31/23 Aspirin 81 mg PO DAILY 07/12/21 05/31/23 Gabapentin 300 mg PO HS 07/12/21 05/31/23 QUEtiapine [SEROquel] 100 mg PO HS 07/12/21 05/31/23 Rosuvastatin Calcium [Crestor] 5 mg PO HS 07/12/21 05/31/23 Sodium Bicarbonate Tab 650 mg PO DAILY 07/12/21 05/31/23 rOPINIRole HCL [Requip] 1 mg PO HS 09/02/21 05/31/23 Insulin Glargine/Lixisenatide 30 units SQ DAILY 12/01/21 05/31/23 [Soliqua 100 Unit-33 Mcg/ml Pen] Eltrombopag Olamine [Promacta] 12.5 mg PO DAILY 05/31/23 05/31/23 Insulin Lispro [humaLOG Kwikpen] See Protocol SQ AC-TID 05/31/23 05/31/23 Metoprolol Tartrate [Lopressor] 50 mg PO HS 05/31/23 05/31/23 Mirabegron [Myrbetriq] 50 mg PO DAILY 05/31/23 05/31/23 predniSONE 10 mg PO DAILY 05/31/23 05/31/23 Allergies Allergy/AdvReac Type Severity Reaction Status Date / Time morphine Allergy Severe Itching Verified 05/31/23 09:36 Review of Systems ROS Statement: Those systems with pertinent positive or pertinent negative responses have been documented in the HPI. ROS Other: All systems not noted in ROS Statement are negative. 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." Hard of hearing, LOW PLATELETS, History of Any Multi-Drug Resistant Organisms: None Reported Past Surgical History: Unable to Obtain, Orthopedic Surgery Additional Past Surgical History / Comment(s): 12/02/21, KYPHOPLASTY AND BX (NEG). Leftkidney transplant 2002, parathyroid surgery, arthroscopy knee surgery, pericardiocentesis, cancer removed from ear, Past Anesthesia/Blood Transfusion Reactions: No Reported Reaction Past Psychological History: Anxiety, Depression Smoking Status: Never smoker Past Alcohol Use History: Rare Past Drug Use History: None Reported - Past Family History Father Family Medical History: Deep Vein Thrombosis (DVT) Son(s) Family Medical History: Cancer Additional Family Medical History / Comment(s): Skin cancer. Mother Family Medical History: Cancer Additional Family Medical History / Comment(s): . General Exam - General Exam Comments Initial Comments: General: Alert, in no acute distress Head: atraumatic normocephalic. Eyes PERRL, EOMI intact, mucous membranes moist Respiratory: Lungs clear to auscultation bilaterally Cardiovascular: Tachycardic Abdominal: Soft without guarding or rebound Extremities: Normal inspection with full range of motion and normal capillary refill Neuroogic: alert and oriented 3, CN II-XII intact, able to ambulate with steady gait Skin: warm dry and intact with normal color Limitations: no limitations Course Vital Signs 05/31/23 05/31/23 05/31/23 05:51 07:28 09:00 Temperature 99.5 F Pulse Rate 120 H 91 90 Pulse Rate [ Pulse Oximetery ] Respiratory 18 18 18 Rate Blood Pressure 180/98 145/83 125/78 Blood Pressure [Left Arm] O2 Sat by Pulse 96 97 94 L Oximetry 05/31/23 05/31/23 11:53 12:34 Temperature 97.7 F 97.4 F L Pulse Rate 86 Pulse Rate [ 80 Pulse Oximetery ] Respiratory 18 18 Rate Blood Pressure 137/91 Blood Pressure 120/93 [Left Arm] O2 Sat by Pulse 97 99 Oximetry - Reevaluation(s) Reevaluation #1: 05/31/23 08:43 Patient reevaluated and updated on results. Patient's at bedside. Agreeable with the plan for admission. Patient took at home platelet medication. EKG Findings - EKG Comments: EKG Findings:: I interpreted the following: EKG performed at 06:08. Rate 109 bpm atrial flutter with RVR. *HI interval, QRS duration 84, QT/QTc 338/402 Medical Decision Making - Medical Decision Making Was pt. sent in by a medical professional or institution (, PA, MANAGER FORENSIC, urgent care, hospital, or prison...) When possible be specific @ -[No] Did you speak to anyone other than the patient for history (EMS, parent, family, police, friend...)? What history was obtained from this source @ -[No] Did you review nursing and triage notes (agree or disagree)? Why? @ -[I reviewed and agree with nursing and triage notes] Were old charts reviewed (outside hosp., previous admission, EMS record, old EKG, old radiological studies, urgent care reports/EKG's, prison records)? Report findings @ -[No old charts were reviewed] Differential Diagnosis (chest pain, altered mental status, abdominal pain women, abdominal pain men, vaginal bleeding, weakness, fever, dyspnea, syncope, headache, dizziness, GI bleed, back pain, seizure, CVA, palpatations, mental health, musculoskeletal)? @ -[not applicable] EKG interpreted by me (3pts min.). @ -[As above] X-rays interpreted by me (1pt min.). @ -Yes CT interpreted by me (1pt min.). @ -Yes U/S interpreted by me (1pt. min.). @ -[None done] What testing was considered but not performed or refused? (CT, X-rays, U/S, labs)? Why? @ -[None] What meds were considered but not given or refused? Why? @ -[None] Did you discuss the management of the patient with other professionals (professionals i.e. , PA, MANAGER FORENSIC, lab, RT, psych nurse, web content & social media manager, dinkey mechanic, teacher, ground intelligence officer, disability case manager)? Give summary @ -Case discussed with Dr. Dubon who does not recommend starting the patient on heparin Case discussed with Dr. Curtis, [facility] who agrees and accepts the patient for further observation Was smoking cessation discussed for >3mins.? @ -[No] Was critical care preformed (if so, how long)? @ -[No] Were there social determinants of health that impacted care today? How? (Homelessness, low income, unemployed, alcoholism, drug addiction, transportation, low edu. Level, literacy, decrease access to med. care, fci, rehab)? @ -[No] Was there de-escalation of care discussed even if they declined (Discuss DNR or withdrawal of care, Hospice)? DNR status @ -[No] What co-morbidities impacted this encounter? (DM, HTN, Smoking, COPD, CAD, Cancer, CVA, ARF, Chemo, Hep., AIDS, mental health diagnosis, sleep apnea, morbid obesity)? @ -DM, HTN Was patient admitted / discharged? Hospital course, mention meds given and route, prescriptions, significant lab abnormalities, going to OR and other pertinent info. @ Admission. This is an 82-year-old male with past medical history significant for diabetes type 2, hypertension, atrial fibrillation who presents the emergency department with weakness. Patient had a thorough history and physical exam performed. Patient is tachycardic, lung sounds minimally decreased bilaterally, abdomen soft and nontender. Left lower extremity is cool to the touch without palpable DP or PT pulses. Patient's laboratory studies performed which reveals WBC 13.7, hemoglobin 13.8 platelets 88 Coagulation studies unremarkable sodium 136, potassium 4.0 BUN 32, creatinine 1.40 lactic acid 2.7 initial troponin 0.059 Urinalysis revealed moderate amount of blood, large amount of leukocyte esterase, greater than 182 wbc's and bacteria. Patient's chest x-ray reveals pneumonia. CT of the bilateral extremities reveals an occlusion of the left distal superficial femoral artery with short segment be taken institution of the proximal popliteal artery which includes Case was discussed with Dr. Dubon who does not recommend anticoagulation or heparin at this time. Discussed results in detail with the patient and the patient's case who verbalized understanding all questions addressed. The agreeable with the plan for admission. With Dr. Curtis [facility] who agrees and accepts the patient for further observation. Undiagnosed new problem with uncertain prognosis? @ -[No] Drug Therapy requiring intensive monitoring for toxicity (Heparin, Nitro, Insulin, Cardizem)? @ -[No] Were any procedures done? @ -[No] Diagnosis/symptom? @ -Weakness - Urinary Tract Infection - Pneumonia - Hx of DM type II - MARCEL Acute, or Chronic, or Acute on Chronic? @ -Acute Uncomplicated (without systemic symptoms) or Complicated (systemic symptoms)? @ -Complicated Side effects of treatment? @ -[No] Exacerbation, Progression, or Severe Exacerbation? @ -[No] Poses a threat to life or bodily function? How? (Chest pain, [place], [place], pneumonia, PE, COPD, DKA, ARF, appy, cholecystitis, CVA, Diverticulitis, Homicidal, Suicidal, threat to staff... and all critical care pts) @ -Yes, pneumonia - Lab Data Result diagrams: 05/31/23 05:56 05/31/23 05:56 Lab Results 05/31/23 05/31/23 05/31/23 Range/Units 05:56 05:56 05:56 WBC 13.7 H (3.8-10.6) k/uL RBC 5.19 (4.30-5.90) m/uL Hgb 13.8 (13.0-17.5) gm/dL Hct 42.5 (39.0-53.0) % MCV 81.8 (80.0-100.0) fL MCH 26.5 (25.0-35.0) pg MCHC 32.4 (31.0-37.0) g/dL RDW 15.9 H (11.5-15.5) % Plt Count 88 L (150-450) k/uL MPV 9.9 Neutrophils % 91 % Lymphocytes % 4 % Monocytes % 4 % Eosinophils % 0 % Basophils % 0 % Neutrophils # 12.5 H (1.3-7.7) k/uL Lymphocytes # 0.6 L (1.0-4.8) k/uL Monocytes # 0.5 (0-1.0) k/uL Eosinophils # 0.1 (0-0.7) k/uL Basophils # 0.0 (0-0.2) k/uL Manual Slide Review Performed Large Platelets Present PT 12.3 (10.0-12.5) sec INR 1.1 (<1.2) APTT 21.8 L (22.0-30.0) sec Sodium 136 L (137-145) mmol/L Potassium 4.0 (3.5-5.1) mmol/L Chloride 104 (98-107) mmol/L Carbon Dioxide 18 L (22-30) mmol/L Anion Gap 14 mmol/L BUN 32 H (9-20) mg/dL Creatinine 1.40 H (0.66-1.25) mg/dL Est GFR (CKD-EPI)AfAm 55 (>60 ml/min/1.73 sqM) Est GFR (CKD-EPI)NonAf 47 (>60 ml/min/1.73 sqM) Glucose 105 H (74-99) mg/dL Lactic Ac Sepsis Rflx Plasma Lactic Acid Jc (0.7-2.0) mmol/L Calcium 9.0 (8.4-10.2) mg/dL Total Bilirubin 2.1 H (0.2-1.3) mg/dL AST 34 (17-59) U/L ALT 20 (4-49) U/L Alkaline Phosphatase 65 (38-126) U/L Troponin I (0.000-0.034) ng/mL Total Protein 6.1 L (6.3-8.2) g/dL Albumin 3.7 (3.5-5.0) g/dL Urine Color Urine Appearance (Clear) Urine pH (5.0-8.0) Ur Specific [place] (1.001-1.035) Urine Protein (Negative) Urine Glucose (UA) (Negative) Urine Ketones (Negative) Urine Blood (Negative) Urine Nitrite (Negative) Urine Bilirubin (Negative) Urine Urobilinogen (<2.0) mg/dL Ur Leukocyte Esterase (Negative) Urine RBC (0-5) /hpf Urine WBC (0-5) /hpf Urine WBC Clumps (None) /hpf Urine Bacteria (None) /hpf Urine Mucus (None) /hpf Influenza Type A (PCR) (Not Detectd) Influenza Type B (PCR) (Not Detectd) RSV (PCR) (Not Detectd) SARS-CoV-2 (PCR) (Not Detectd) 05/31/23 05/31/23 05/31/23 Range/Units 05:56 05:56 05:56 WBC (3.8-10.6) k/uL RBC (4.30-5.90) m/uL Hgb (13.0-17.5) gm/dL Hct (39.0-53.0) % MCV (80.0-100.0) fL MCH (25.0-35.0) pg MCHC (31.0-37.0) g/dL RDW (11.5-15.5) % Plt Count (150-450) k/uL MPV Neutrophils % % Lymphocytes % % Monocytes % % Eosinophils % % Basophils % % Neutrophils # (1.3-7.7) k/uL Lymphocytes # (1.0-4.8) k/uL Monocytes # (0-1.0) k/uL Eosinophils # (0-0.7) k/uL Basophils # (0-0.2) k/uL Manual Slide Review Large Platelets PT (10.0-12.5) sec INR (<1.2) APTT (22.0-30.0) sec Sodium (137-145) mmol/L Potassium (3.5-5.1) mmol/L Chloride (98-107) mmol/L Carbon Dioxide (22-30) mmol/L Anion Gap mmol/L BUN (9-20) mg/dL Creatinine (0.66-1.25) mg/dL Est GFR (CKD-EPI)AfAm (>60 ml/min/1.73 sqM) Est GFR (CKD-EPI)NonAf (>60 ml/min/1.73 sqM) Glucose (74-99) mg/dL Lactic Ac Sepsis Rflx Plasma Lactic Acid Jc 2.7 H* (0.7-2.0) mmol/L Calcium (8.4-10.2) mg/dL Total Bilirubin (0.2-1.3) mg/dL AST (17-59) U/L ALT (4-49) U/L Alkaline Phosphatase (38-126) U/L Troponin I 0.059 H* (0.000-0.034) ng/mL Total Protein (6.3-8.2) g/dL Albumin (3.5-5.0) g/dL Urine Color Yellow Urine Appearance Cloudy (Clear) Urine pH 7.0 (5.0-8.0) Ur Specific [place] 1.031 (1.001-1.035) Urine Protein 2+ H (Negative) Urine Glucose (UA) Negative (Negative) Urine Ketones Trace H (Negative) Urine Blood Moderate H (Negative) Urine Nitrite Negative (Negative) Urine Bilirubin Negative (Negative) Urine Urobilinogen <2.0 (<2.0) mg/dL Ur Leukocyte Esterase Large H (Negative) Urine RBC 78 H (0-5) /hpf Urine WBC >182 H (0-5) /hpf Urine WBC Clumps Moderate H (None) /hpf Urine Bacteria Occasional H (None) /hpf Urine Mucus Rare H (None) /hpf Influenza Type A (PCR) (Not Detectd) Influenza Type B (PCR) (Not Detectd) RSV (PCR) (Not Detectd) SARS-CoV-2 (PCR) (Not Detectd) 05/31/23 05/31/23 Range/Units 06:22 07:31 WBC (3.8-10.6) k/uL RBC (4.30-5.90) m/uL Hgb (13.0-17.5) gm/dL Hct (39.0-53.0) % MCV (80.0-100.0) fL MCH (25.0-35.0) pg MCHC (31.0-37.0) g/dL RDW (11.5-15.5) % Plt Count (150-450) k/uL MPV Neutrophils % % Lymphocytes % % Monocytes % % Eosinophils % % Basophils % % Neutrophils # (1.3-7.7) k/uL Lymphocytes # (1.0-4.8) k/uL Monocytes # (0-1.0) k/uL Eosinophils # (0-0.7) k/uL Basophils # (0-0.2) k/uL Manual Slide Review Large Platelets PT (10.0-12.5) sec INR (<1.2) APTT (22.0-30.0) sec Sodium (137-145) mmol/L Potassium (3.5-5.1) mmol/L Chloride (98-107) mmol/L Carbon Dioxide (22-30) mmol/L Anion Gap mmol/L BUN (9-20) mg/dL Creatinine (0.66-1.25) mg/dL Est GFR (CKD-EPI)AfAm (>60 ml/min/1.73 sqM) Est GFR (CKD-EPI)NonAf (>60 ml/min/1.73 sqM) Glucose (74-99) mg/dL Lactic Ac Sepsis Rflx Y Plasma Lactic Acid Jc (0.7-2.0) mmol/L Calcium (8.4-10.2) mg/dL Total Bilirubin (0.2-1.3) mg/dL AST (17-59) U/L ALT (4-49) U/L Alkaline Phosphatase (38-126) U/L Troponin I (0.000-0.034) ng/mL Total Protein (6.3-8.2) g/dL Albumin (3.5-5.0) g/dL Urine Color Urine Appearance (Clear) Urine pH (5.0-8.0) Ur Specific [place] (1.001-1.035) Urine Protein (Negative) Urine Glucose (UA) (Negative) Urine Ketones (Negative) Urine Blood (Negative) Urine Nitrite (Negative) Urine Bilirubin (Negative) Urine Urobilinogen (<2.0) mg/dL Ur Leukocyte Esterase (Negative) Urine RBC (0-5) /hpf Urine WBC (0-5) /hpf Urine WBC Clumps (None) /hpf Urine Bacteria (None) /hpf Urine Mucus (None) /hpf Influenza Type A (PCR) Not Detected (Not Detectd) Influenza Type B (PCR) Not Detected (Not Detectd) RSV (PCR) Not Detected (Not Detectd) SARS-CoV-2 (PCR) Not Detected (Not Detectd) Disposition Clinical Impression: Pneumonia, Diabetes mellitus type 2 in obese, ARF (acute renal failure), Weakness, UTI (urinary tract infection) Disposition: ADMITTED IP TO THIS HOSP Condition: Fair Time of Disposition: 06:25
[2023-05-31 06:23] LABS: INR 1.1 (<1.2); Prothrombin Time 12.3 sec (10.0-12.5)
[2023-05-31] MEDS ORDERED: SODIUM CHLORIDE 0.9% 1,000 ML IV ONE (06:23)
[2023-05-31 06:28] LABS: Partial Thromboplastin Time 21.8 sec (22.0-30.0)
[2023-05-31 07:07] LABS: Large Platelets Present; Platelet Count 88 k/uL (150-450)
--- NOTE | 2023-05-31 07:38 | XR ---
EXAMINATION TYPE: XR chest 2V DATE OF EXAM: 05/31/2023 7:32 AM CLINICAL INDICATION:Male, 82 years old with history of fever; [facility] COMPARISON: Chest radiographs from 12/01/2020 TECHNIQUE: XR chest 2V Frontal and lateral views of the chest. FINDINGS: Lungs/Pleura: Right lower lobe medial airspace opacities are increased. There is generalized diffuse haziness of lungs. There is no evidence of pleural effusion, focal consolidation, or pneumothorax. Pulmonary vascularity: Unremarkable. Heart/mediastinum: Cardiomediastinal silhouette is enlarged and stable. Musculoskeletal: No acute osseous pathology. IMPRESSION: Increased right middle lobe airspace opacities superimposed on the lung volumes correlate for pneumon ia.
[2023-05-31] MEDS ORDERED: PNEUMONIA PROTOCOL UTILIZED 1 EACH MISC PO PRN (08:21)
[2023-05-31] MEDS ORDERED: AZITHROMYCIN 500 MG in SODIUM CHLORIDE 0.9% 250 ML IVPB STA (08:37)
--- NOTE | 2023-05-31 09:03 | CT ---
EXAMINATION TYPE: CT angio lower extremity BILAT CT DLP: 1264.4 mGycm, Automated exposure control for dose reduction was used. DATE OF EXAM: 05/31/2023 8:44 AM COMPARISON: CT abdomen pelvis 04/26/2021 CLINICAL INDICATION:Male, 82 years old with history of no Dp/PT pulses; No Dp/Pt pulse TECHNIQUE: Multiple thin slice sub-millimeter images were obtained through the pelvis and lower extre mities after administration of contrast. Patient was given Isovue 370, 80 cc intravenously. 3-D rec onstructed images and maximum intensity projection images were obtained of the arterial vasculature. FINDINGS: CTA pelvis: Atherosclerotic plaquing is identified within the visualized distal abdominal aorta. Mil d atherosclerotic calcification of the bilateral common iliac arteries. CTA Lower extremities: Right: The common femoral and superficial femoral arteries are patent. Atherosclerotic plaque identif ied prominent within the distal superficial femoral artery with multilevel short segment moderate pj nosis. The deep femoral artery is patent. The right popliteal artery is patent. Atherosclerotic calci fication identified within the right anterior tibial, posterior tibial, and peroneal arteries. No def initive flow is identified within these vessels. Left: The common femoral is patent. There is occlusion of the distal superficial femoral artery with short segment reconstitution of the proximal left popliteal artery which then occludes. Atherosclero tic plaque is identified throughout the anterior tibial posterior tibial, and peroneal arteries witho ut definitive enhancement to suggest flow. The deep femoral arteries patent. PELVIS Left pelvic renal transplant identified. No hydronephrosis or nephrolithiasis. Couple of subcentimete r cortical likely cysts. BOWEL: No focal bowel wall thickening or surrounding inflammatory changes. No evidence of bowel obstr uction. PERITONEUM: No evidence of pneumoperitoneum or free fluid. MUSCULOSKELETAL: No acute osseous abnormalities. Lumbar fusion hardware demonstrated with disc spacer s. This creates streak artifact which limits evaluation. Mild osteoarthritic changes of both hips. Os teophytic changes of both knees. LYMPH NODES: No gross evidence for lymphadenopathy. SOFT TISSUE/ABDOMINAL WALL: Fat filled left inguinal hernia. Small fat filled umbilical hernia. IMPRESSION 1. 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 There is no definitive flow within the bilateral anterior t ibial, posterior tibial, and peroneal arteries which may be secondary to occlusion versus poor arteri al bolus. Consider further evaluation with Doppler ultrasound. 2. Left pelvic transplant kidney.
[2023-05-31] MEDS ORDERED: DEXTROSE 50% SYRINGE 50 ML IVP PRN ×2 (10:34)
[2023-05-31 10:47] LABS: Glucose,Whole Blood 183 mg/dL (70-110)
[2023-05-31 11:01] LABS: Appearance,Urine Cloudy (Clear); Bacteria,Urine Occasional /hpf; Bilirubin,Urine Negative (Negative); Blood,Urine Moderate (Negative); Color,Urine Yellow; Glucose,Urine (UA) Negative (Negative); Ketones,Urine Trace (Negative); Leukocyte Esterase,Urine Large (Negative); Mucus,Urine Rare /hpf; Nitrite,Urine Negative (Negative); Protein,Urine 2+ (Negative); RBC,Urine 78 /hpf (0-5); Specific Gravity,Urine 1.031 (1.001-1.035); Urobilinogen,Urine <2.0 mg/dL (<2.0); WBC,Urine >182 /hpf (0-5)
--- NOTE | 2023-05-31 11:03 | P.HPIM ---
History of Present Illness 82-year-old male came in with the complaints of not feeling well and generalized weakness. Patient is also unable to urinate. Patient had a low-grade fever which is only 99.5 and found to have leukocytosis upon further workup patient chest x-ray is suspicious for right middle lobe pneumonia when cautioned about UTI symptoms patient states he has some pain during urination but not much urine analysis and urine cultures are being obtained blood cultures were obtained patient is being admitted for treatment of pneumonia. Patient is not a great historian patient denied any significant cough with sputum production. Patient also has cold clammy limbs because of which she CT angios of the bilateral lower x-rays was obtained which showed occlusion of the distal superficial femoral artery and the head occlusion beyond the popliteal artery cannot be assessed as there may be lack of contrast. Patient has a renal transplant and is on no suppressive therapy at this time. Patient doesn't have any symptoms of claudication but does have cold clammy limbs and barely appreciable pedal pulses. REVIEW OF SYSTEMS: As mentioned in HPI PHYSICAL EXAMINATION: GENERAL: The patient is alert and oriented x3, not in any acute distress. Well developed, well nourished. HEENT: Pupils are round and equally reacting to light. EOMI. No scleral icterus. No conjunctival pallor. Normocephalic, atraumatic. No pharyngeal erythema. No thyromegaly. CARDIOVASCULAR: S1 and S2 present. No murmurs, rubs, or gallops. PULMONARY: Chest is clear to auscultation, no wheezing or crackles. ABDOMEN: Soft, nontender, nondistended, normoactive bowel sounds. No palpable organomegaly. MUSCULOSKELETAL: No joint swelling or deformity. EXTREMITIES: No cyanosis, clubbing, or pedal edema. Patient does have the barely appreciable bilateral pedal pulses cold clammy limbs NEUROLOGICAL: Gross neurological examination did not reveal any focal deficits. SKIN: No rashes. Assessment and plan -Sepsis possibly secondary to pneumonia we will obtain percussed on level continue with anti-medics for now he is being obtained at this time -Generalized weakness secondary to age and may be pneumonia, physical therapy and occupational therapy evaluation next -Peripheral vascular disease patient doesn't have a limb threatening ischemia probably can follow-up as an outpatient with vascular surgery patient doesn't have any claudication pain at this time -Renal transplant kidney function is essentially within normal patient will be resumed on 9 home medications -Type 2 diabetes mellitus patient will be resumed on home dose of long-acting insulin along with sliding scale insulin. 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 Leftkidney transplant 2002, parathyroid surgery, arthroscopy knee surgery, pericardiocentesis, cancer removed from ear, Past Anesthesia/Blood Transfusion Reactions: No Reported Reaction Past Psychological History: Anxiety, Depression Smoking Status: Never smoker Past Alcohol Use History: Rare Past Drug Use History: None Reported - Past Family History Father Family Medical History: Deep Vein Thrombosis (DVT) Son(s) Family Medical History: Cancer Additional Family Medical History / Comment(s): Skin cancer. Mother Family Medical History: Cancer Additional Family Medical History / Comment(s): . Medications and Allergies Home Medications Medication Instructions Recorded Confirmed Type Finasteride [Proscar] 5 mg PO DAILY 02/09/17 05/31/23 History Tamsulosin HCl [Flomax] 0.4 mg PO DAILY 02/09/17 05/31/23 History Multivitamins, Thera [Multivitamin 1 tab PO DAILY 12/31/18 05/31/23 History (formulary)] Vit C/E/Zn/Coppr/Lutein/Zeaxan 1 cap PO HS 12/18/19 05/31/23 History [Preservision Areds 2 Softgel] Pantoprazole [Protonix] 40 mg PO DAILY 12/28/19 05/31/23 History Metoprolol Tartrate [Lopressor] 25 mg PO DAILY 03/05/20 05/31/23 History Tacrolimus [Prograf] 1 mg PO BID 04/03/20 05/31/23 History mycophenolate mofetiL [Cellcept] 250 mg PO BID 04/03/20 05/31/23 History DULoxetine HCL [Cymbalta] 120 mg PO DAILY 12/01/20 05/31/23 History Levothyroxine Sodium [Synthroid] 75 mcg PO DAILY 12/01/20 05/31/23 History Aspirin 81 mg PO DAILY 07/12/21 05/31/23 History Gabapentin 300 mg PO HS 07/12/21 05/31/23 History QUEtiapine [SEROquel] 100 mg PO HS 07/12/21 05/31/23 History Rosuvastatin Calcium [Crestor] 5 mg PO HS 07/12/21 05/31/23 History Sodium Bicarbonate Tab 650 mg PO DAILY 07/12/21 05/31/23 History rOPINIRole HCL [Requip] 1 mg PO HS 09/02/21 05/31/23 History Insulin Glargine/Lixisenatide 30 units SQ DAILY 12/01/21 05/31/23 History [Soliqua 100 Unit-33 Mcg/ml Pen] Eltrombopag Olamine [Promacta] 12.5 mg PO DAILY 05/31/23 05/31/23 History Insulin Lispro [humaLOG Kwikpen] See Protocol SQ AC-TID 05/31/23 05/31/23 Hi story Metoprolol Tartrate [Lopressor] 50 mg PO HS 05/31/23 05/31/23 History Mirabegron [Myrbetriq] 50 mg PO DAILY 05/31/23 05/31/23 History predniSONE 10 mg PO DAILY 05/31/23 05/31/23 History Allergies Allergy/AdvReac Type Severity Reaction Status Date / Time morphine Allergy Severe Itching Verified 05/31/23 09:36 Physical Exam Vitals: Vital Signs Temp Pulse Resp BP Pulse Ox 05/31/23 09:00 90 18 125/78 94 L 05/31/23 07:28 91 18 145/83 97 05/31/23 05:51 99.5 F 120 H 18 180/98 96 Intake and Output 05/30/23 05/31/23 05/31/23 22:59 06:59 14:59 Other: Weight 90.718 kg Results CBC & Chem 7: 05/31/23 05:56 05/31/23 05:56 Labs: Abnormal Lab Results - Last 24 Hours (Table) 05/31/23 05/31/23 05/31/23 Range/Units 05:56 05:56 05:56 WBC 13.7 H (3.8-10.6) k/uL RDW 15.9 H (11.5-15.5) % Plt Count 88 L (150-450) k/uL Neutrophils # 12.5 H (1.3-7.7) k/uL Lymphocytes # 0.6 L (1.0-4.8) k/uL APTT 21.8 L (22.0-30.0) sec Sodium 136 L (137-145) mmol/L Carbon Dioxide 18 L (22-30) mmol/L BUN 32 H (9-20) mg/dL Creatinine 1.40 H (0.66-1.25) mg/dL Glucose 105 H (74-99) mg/dL POC Glucose (mg/dL) (70-110) mg/dL Plasma Lactic Acid Jc (0.7-2.0) mmol/L Total Bilirubin 2.1 H (0.2-1.3) mg/dL Troponin I (0.000-0.034) ng/mL Total Protein 6.1 L (6.3-8.2) g/dL Urine Protein (Negative) Urine Ketones (Negative) Urine Blood (Negative) Ur Leukocyte Esterase (Negative) Urine RBC (0-5) /hpf Urine WBC (0-5) /hpf Urine WBC Clumps (None) /hpf Urine Bacteria (None) /hpf Urine Mucus (None) /hpf 05/31/23 05/31/23 05/31/23 Range/Units 05:56 05:56 05:56 WBC (3.8-10.6) k/uL RDW (11.5-15.5) % Plt Count (150-450) k/uL Neutrophils # (1.3-7.7) k/uL Lymphocytes # (1.0-4.8) k/uL APTT (22.0-30.0) sec Sodium (137-145) mmol/L Carbon Dioxide (22-30) mmol/L BUN (9-20) mg/dL Creatinine (0.66-1.25) mg/dL Glucose (74-99) mg/dL POC Glucose (mg/dL) (70-110) mg/dL Plasma Lactic Acid Jc 2.7 H* (0.7-2.0) mmol/L Total Bilirubin (0.2-1.3) mg/dL Troponin I 0.059 H* (0.000-0.034) ng/mL Total Protein (6.3-8.2) g/dL Urine Protein 2+ H (Negative) Urine Ketones Trace H (Negative) Urine Blood Moderate H (Negative) Ur Leukocyte Esterase Large H (Negative) Urine RBC 78 H (0-5) /hpf Urine WBC >182 H (0-5) /hpf Urine WBC Clumps Moderate H (None) /hpf Urine Bacteria Occasional H (None) /hpf Urine Mucus Rare H (None) /hpf 05/31/23 Range/Units 10:45 WBC (3.8-10.6) k/uL RDW (11.5-15.5) % Plt Count (150-450) k/uL Neutrophils # (1.3-7.7) k/uL Lymphocytes # (1.0-4.8) k/uL APTT (22.0-30.0) sec Sodium (137-145) mmol/L Carbon Dioxide (22-30) mmol/L BUN (9-20) mg/dL Creatinine (0.66-1.25) mg/dL Glucose (74-99) mg/dL POC Glucose (mg/dL) 183 H (70-110) mg/dL Plasma Lactic Acid Jc (0.7-2.0) mmol/L Total Bilirubin (0.2-1.3) mg/dL Troponin I (0.000-0.034) ng/mL Total Protein (6.3-8.2) g/dL Urine Protein (Negative) Urine Ketones (Negative) Urine Blood (Negative) Ur Leukocyte Esterase (Negative) Urine RBC (0-5) /hpf Urine WBC (0-5) /hpf Urine WBC Clumps (None) /hpf Urine Bacteria (None) /hpf Urine Mucus (None) /hpf
[2023-05-31] MEDS ORDERED: INSULIN ASPART (NovoLOG) 100 UNIT/ML VIAL SQ SCH (12:30)
[2023-05-31 12:43] LABS: Glucose,Whole Blood 227 mg/dL (70-110)
[2023-05-31] MEDS: INSULIN ASPART (NovoLOG) 100 UNIT/ML VIAL SQ SCH ×2 (12:54→17:33)
--- NOTE | 2023-05-31 13:17 | P.GSCN ---
History of Present Illness Consult date: 05/31/23 Reason for Consult: Arterial occlusion Requesting physician: Daniela Solano History of present illness: This is a 82-year-old male with a past medical history including atrial fibrillation, diabetes mellitus, hypertension, hyperlipidemia, renal transplant, and history of undergoing Pericardiocentesis who follows with Dr. Crabtree presented to the hospital this morning with reported chief complaint of nausea vomiting and weakness. This was obtained from chart as patient is unsure of I he came to the hospital. Patient is a poor historian. He states he has had some cough over the past few days. He had this time has no other real complaints. Apparently the patient had no palpable pulses in left lower extrem ity was cool to the touch so the emergency department ordered a CT angiogram of the bilateral lower extremities. Patient denies any pain to either of his lower extremities. Denies any history of peripheral arterial disease. He denies any claudication. He states that he can walk to his mailbox and back however he does get tired but he does not have pain in his legs. Patient noted to have elevated troponins 2. CT angiogram lower extremity bilaterally reports occlusion of the distal superficial femoral artery was short segment reconstitution of the proximal popliteal artery which then occludes. There is no definitive flow within the bilateral anterior tibial, posterior tibial and. Medial arteries which may be secondary to occlusive versus poor arterial bolus. Consider further evaluation with Doppler ultrasound. Left pelvic transplant kidney. Review of Systems A 14 point review systems was completed all pertinent positives and negatives as stated in the HPI. 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." Hard of hearing, LOW PLATELETS, History of Any Multi-Drug Resistant Organisms: None Reported Past Surgical History: Unable to Obtain, Orthopedic Surgery Additional Past Surgical History / Comment(s): 12/02/21, KYPHOPLASTY AND BX (NEG). Leftkidney transplant 2002, parathyroid surgery, arthroscopy knee surgery, pericardiocentesis, cancer removed from ear, Past Anesthesia/Blood Transfusion Reactions: No Reported Reaction Past Psychological History: Anxiety, Depression Smoking Status: Never smoker Past Alcohol Use History: Rare Past Drug Use History: None Reported - Past Family History Father Family Medical History: Deep Vein Thrombosis (DVT) Son(s) Family Medical History: Cancer Additional Family Medical History / Comment(s): Skin cancer. Mother Family Medical History: Cancer Additional Family Medical History / Comment(s): . Medications and Allergies Home Medications Medication Instructions Recorded Confirmed Type Finasteride [Proscar] 5 mg PO DAILY 02/09/17 05/31/23 History Tamsulosin HCl [Flomax] 0.4 mg PO DAILY 02/09/17 05/31/23 History Multivitamins, Thera [Multivitamin 1 tab PO DAILY 12/31/18 05/31/23 History (formulary)] Vit C/E/Zn/Coppr/Lutein/Zeaxan 1 cap PO HS 12/18/19 05/31/23 History [Preservision Areds 2 Softgel] Pantoprazole [Protonix] 40 mg PO DAILY 12/28/19 05/31/23 History Metoprolol Tartrate [Lopressor] 25 mg PO DAILY 03/05/20 05/31/23 History Tacrolimus [Prograf] 1 mg PO BID 04/03/20 05/31/23 History mycophenolate mofetiL [Cellcept] 250 mg PO BID 04/03/20 05/31/23 History DULoxetine HCL [Cymbalta] 120 mg PO DAILY 12/01/20 05/31/23 History Levothyroxine Sodium [Synthroid] 75 mcg PO DAILY 12/01/20 05/31/23 History Aspirin 81 mg PO DAILY 07/12/21 05/31/23 History Gabapentin 300 mg PO HS 07/12/21 05/31/23 History QUEtiapine [SEROquel] 100 mg PO HS 07/12/21 05/31/23 History Rosuvastatin Calcium [Crestor] 5 mg PO HS 07/12/21 05/31/23 History Sodium Bicarbonate Tab 650 mg PO DAILY 07/12/21 05/31/23 History rOPINIRole HCL [Requip] 1 mg PO HS 09/02/21 05/31/23 History Insulin Glargine/Lixisenatide 30 units SQ DAILY 12/01/21 05/31/23 History [Soliqua 100 Unit-33 Mcg/ml Pen] Eltrombopag Olamine [Promacta] 12.5 mg PO DAILY 05/31/23 05/31/23 History Insulin Lispro [humaLOG Kwikpen] See Protocol SQ AC-TID 05/31/23 05/31/23 History Metoprolol Tartrate [Lopressor] 50 mg PO HS 05/31/23 05/31/23 History Mirabegron [Myrbetriq] 50 mg PO DAILY 05/31/23 05/31/23 History predniSONE 10 mg PO DAILY 05/31/23 05/31/23 History Allergies Allergy/AdvReac Type Severity Reaction Status Date / Time morphine Allergy Severe Itching Verified 05/31/23 09:36 Surgical - Exam Vital Signs Temp Pulse Resp BP Pulse Ox 99.5 F 120 H 18 180/98 96 05/31/23 05:51 05/31/23 05:51 05/31/23 05:51 05/31/23 05:51 05/31/23 05:51 General appearance: The patient is alert, oriented, appears in no acute distress. HET: Head is normocephalic and atraumatic. Pupils are equal and reactive. Neck: Supple. Heart: Regular. Lungs: Equal expansion, normal respiratory effort. Abdomen: Soft, nontender, nondistended. Extremities: Normal skin color and turgor. Palpable femoral pulses. Nonpalpab le PT or DP bilaterally. Left foot is cool compared to right. Decreased capillary refill. Left leg warm to the touch, no tenderness to palpation. Sensorimotor intact bilaterally. Neurological: No focal deficits. Alert and orientated x3. Results - Labs 05/31/23 05:56 05/31/23 05:56 Abnormal Lab Results - Last 24 Hours (Table) 05/31/23 05/31/23 05/31/23 Range/Units 05:56 05:56 05:56 WBC 13.7 H (3.8-10.6) k/uL RDW 15.9 H (11.5-15.5) % Plt Count 88 L (150-450) k/uL Neutrophils # 12.5 H (1.3-7.7) k/uL Lymphocytes # 0.6 L (1.0-4.8) k/uL APTT 21.8 L (22.0-30.0) sec Sodium 136 L (137-145) mmol/L Carbon Dioxide 18 L (22-30) mmol/L BUN 32 H (9-20) mg/dL Creatinine 1.40 H (0.66-1.25) mg/dL Glucose 105 H (74-99) mg/dL POC Glucose (mg/dL) (70-110) mg/dL Plasma Lactic Acid Jc (0.7-2.0) mmol/L Total Bilirubin 2.1 H (0.2-1.3) mg/dL Troponin I (0.000-0.034) ng/mL Total Protein 6.1 L (6.3-8.2) g/dL Urine Protein (Negative) Urine Ketones (Negative) Urine Blood (Negative) Ur Leukocyte Esterase (Negative) Urine RBC (0-5) /hpf Urine WBC (0-5) /hpf Urine WBC Clumps (None) /hpf Urine Bacteria (None) /hpf Urine Mucus (None) /hpf 05/31/23 05/31/23 05/31/23 Range/Units 05:56 05:56 05:56 WBC (3.8-10.6) k/uL RDW (11.5-15.5) % Plt Count (150-450) k/uL Neutrophils # (1.3-7.7) k/uL Lymphocytes # (1.0-4.8) k/uL APTT (22.0-30.0) sec Sodium (137-145) mmol/L Carbon Dioxide (22-30) mmol/L BUN (9-20) mg/dL Creatinine (0.66-1.25) mg/dL Glucose (74-99) mg/dL POC Glucose (mg/dL) (70-110) mg/dL Plasma Lactic Acid Jc 2.7 H* (0.7-2.0) mmol/L Total Bilirubin (0.2-1.3) mg/dL Troponin I 0.059 H* (0.000-0.034) ng/mL Total Protein (6.3-8.2) g/dL Urine Protein 2+ H (Negative) Urine Ketones Trace H (Negative) Urine Blood Moderate H (Negative) Ur Leukocyte Esterase Large H (Negative) Urine RBC 78 H (0-5) /hpf Urine WBC >182 H (0-5) /hpf Urine WBC Clumps Moderate H (None) /hpf Urine Bacteria Occasional H (None) /hpf Urine Mucus Rare H (None) /hpf 05/31/23 05/31/23 Range/Units 10:45 10:45 WBC (3.8-10.6) k/uL RDW (11.5-15.5) % Plt Count (150-450) k/uL Neutrophils # (1.3-7.7) k/uL Lymphocytes # (1.0-4.8) k/uL APTT (22.0-30.0) sec Sodium (137-145) mmol/L Carbon Dioxide (22-30) mmol/L BUN (9-20) mg/dL Creatinine (0.66-1.25) mg/dL Glucose (74-99) mg/dL POC Glucose (mg/dL) 183 H (70-110) mg/dL Plasma Lactic Acid Jc (0.7-2.0) mmol/L Total Bilirubin (0.2-1.3) mg/dL Troponin I 0.091 H* (0.000-0.034) ng/mL Total Protein (6.3-8.2) g/dL Urine Protein (Negative) Urine Ketones (Negative) Urine Blood (Negative) Ur Leukocyte Esterase (Negative) Urine RBC (0-5) /hpf Urine WBC (0-5) /hpf Urine WBC Clumps (None) /hpf Urine Bacteria (None) /hpf Urine Mucus (None) /hpf Diabetes panel 05/31/23 Range/Units 05:56 Sodium 136 L (137-145) mmol/L Potassium 4.0 (3.5-5.1) mmol/L Chloride 104 (98-107) mmol/L Carbon Dioxide 18 L (22-30) mmol/L BUN 32 H (9-20) mg/dL Creatinine 1.40 H (0.66-1.25) mg/dL Glucose 105 H (74-99) mg/dL Calcium 9.0 (8.4-10.2) mg/dL AST 34 (17-59) U/L ALT 20 (4-49) U/L Alkaline Phosphatase 65 (38-126) U/L Total Protein 6.1 L (6.3-8.2) g/dL Albumin 3.7 (3.5-5.0) g/dL Calcium panel 05/31/23 Range/Units 05:56 Calcium 9.0 (8.4-10.2) mg/dL Albumin 3.7 (3.5-5.0) g/dL Pituitary panel 05/31/23 Range/Units 05:56 Sodium 136 L (137-145) mmol/L Potassium 4.0 (3.5-5.1) mmol/L Chloride 104 (98-107) mmol/L Carbon Dioxide 18 L (22-30) mmol/L BUN 32 H (9-20) mg/dL Creatinine 1.40 H (0.66-1.25) mg/dL Glucose 105 H (74-99) mg/dL Calcium 9.0 (8.4-10.2) mg/dL Adrenal panel 05/31/23 Range/Units 05:56 Sodium 136 L (137-145) mmol/L Potassium 4.0 (3.5-5.1) mmol/L Chloride 104 (98-107) mmol/L Carbon Dioxide 18 L (22-30) mmol/L BUN 32 H (9-20) mg/dL Creatinine 1.40 H (0.66-1.25) mg/dL Glucose 105 H (74-99) mg/dL Calcium 9.0 (8.4-10.2) mg/dL Total Bilirubin 2.1 H (0.2-1.3) mg/dL AST 34 (17-59) U/L ALT 20 (4-49) U/L Alkaline Phosphatase 65 (38-126) U/L Total Protein 6.1 L (6.3-8.2) g/dL Albumin 3.7 (3.5-5.0) g/dL - Imaging Comments: CT angiogram lower extremity bilaterally reports occlusion of the distal muller perficial femoral artery was short segment reconstitution of the proximal popliteal artery which then occludes. There is no definitive flow within the bilateral anterior tibial, posterior tibial and. Medial arteries which may be secondary to occlusive versus poor arterial bolus. Consider further evaluation with Doppler ultrasound. Left pelvic transplant kidney. Chest x-ray: Increased right middle lobe airspace opacities superimposed on the lung volumes correlate for pneumonia Assessment and Plan Assessment: 1. Sepsis possibly secondary to Pneumonia 2. 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 History atrial fibrillation not on anticoagulation 4. Diabetes mellitus 5. Hypertension 6. Hyperlipidemia 7. History of left kidney transplant Plan: Patient admitted for sepsis likely secondary to pneumonia. Patient has overall generalized weakness. He was noted to have nonpalpable pulses and underwent CT angiogram of lower extremities which shows peripheral arterial disease with SFA occlusion of the left lower extremity. He is without any claudication and den ies any rest pain in his legs. This is likely all chronic peripheral arterial disease. Lower extremity arterial ultrasound ordered for baseline. Further workup and management can be discussed as an outpatient. Rest of medical management per primary team. Thank you for this consultation. We will sign off at this time. The impression and plan of care has been dictated as directed. I performed a history and examination of this patient, discussed the same with the dictator. I agree with the dictator's note ,documented as a scribe. Any additional findings or plans will be noted.
--- NOTE | 2023-05-31 16:32 | US ---
EXAMINATION TYPE: US arterial LE multi level DATE OF EXAM: 05/31/2023 4:20 PM CLINICAL INDICATION: Male, 82 years old with history of non palpable pulses; abn CT angio of legs, pa in in left leg History of: Smoker: n Hypertension: y Diabetic: y Hyperlipidemia: y TIA/CVA: n Previous Vascular Surgery: n CAD: n MD: n Vascular Ulcers: n Claudication: n Gangrene: n Doppler Waveforms: Right: Biphasic waveform in the right posterior tibial and dorsalis pedis veins. Left: Monophasic waveform within the left posterior tibial and dorsalis pedis veins. Right Brachial Pressure: 178 Left Brachial Pressure: 189 Ankle-Brachial Indices: Right: CNO Left: 0.9 Toe Brachial Indices: Right: 0.6 Left: 0.3 IMPRESSION: 1. Abnormal left ankle brachial index with monophasic waveforms suggesting moderate peripheral arteri al disease. 2. Biphasic waveforms with abnormal TBI. Unable to calculate GALINA. Findings suggest mild peripheral ar terial disease.
[2023-05-31 17:31] LABS: Glucose,Whole Blood 187 mg/dL (70-110)
[2023-05-31] MEDS ORDERED: ONDANSETRON 4 MG/2 ML VIAL IVP PRN (18:29)
[2023-05-31] MEDS ORDERED: SODIUM CHLORIDE 0.9% 1,000 ML IV SCH (18:30)
[2023-05-31] MEDS: PANTOPRAZOLE 40 MG/10 ML VIAL IVP SCH (18:59)
[2023-05-31] MEDS: PIPERACILLIN-TAZOBACTAM 3.375 GM in SODIUM CHLORIDE 0.9% 100 ML IVPB SCH (18:59)
[2023-05-31 19:24] LABS: Glucose,Whole Blood 172 mg/dL (70-110)
[2023-05-31] MEDS ORDERED: ACETAMINOPHEN IV (For NPO) 1,000 MG in EMPTY BAG 1 BAG IVPB ONE (19:33)
[2023-05-31] MEDS ORDERED: DILTIAZEM DRIP BOLUS FROM BAG 1 MG SOLN IV ONE (19:36)
[2023-05-31 19:52] LABS: Glucose,Whole Blood 195 mg/dL (70-110)
[2023-05-31 19:59] LABS: ABG Base Excess -2.4 mmol/L; ABG HCO3 22 mmol/L (21-25); ABG PCO2 32 mmHg (35-45); ABG PH 7.44 (7.35-7.45); ABG PO2 122 mmHg (83-108); ABG TCO2 23 mmol/L (19-24); Allen Test Performed? Yes
--- NOTE | 2023-05-31 19:59 | XR ---
EXAMINATION TYPE: XR chest 1V portable DATE OF EXAM: 05/31/2023 Comparison: 05/31/2023 Clinical History: 82-year-old male aspiration Findings: Heart borderline in size. Mild interstitial prominence is unchanged. Similar eventration right hemidi aphragm. No progressive consolidation or new pleural effusion is seen. There is a new sharply demarca kiersten edge projecting along the periphery of the left upper and midlung. Impression: There is a new sharply demarcated edge projecting along the periphery of the left upper and midlung. Possible external artifact. Unable to exclude a new left-sided pneumothorax measuring 2.0 cm superola terally. Mild interstitial density is similar. Called to Dr. Borges at 7:55 PM.
[2023-05-31] MEDS: DILTIAZEM 125 MG in SODIUM CHLORIDE 0.9% 100 ML IV SCH (20:35)
[2023-06-01] MEDS: GABAPENTIN 300 MG CAP PO SCH ×2 (00:27→21:45)
[2023-06-01] MEDS: ATORVASTATIN 10 MG TAB PO SCH ×2 (00:27→21:45)
[2023-06-01] MEDS: QUEtiapine 100 MG TAB PO SCH ×2 (00:28→21:45)
[2023-06-01] MEDS: TACROLIMUS 1 MG CAP PO SCH ×3 (00:29→22:06)
[2023-06-01] MEDS: VIT A,C & E-LUTEIN-MINERALS 1 EACH TAB PO SCH ×2 (00:29→21:45)
--- NOTE | 2023-06-01 00:35 | XR ---
EXAM: XR Chest, 1 View CLINICAL HISTORY: ITS.REASON XR Reason: left pneumothorax TECHNIQUE: Frontal view of the chest. COMPARISON: No relevant prior studies available. FINDINGS: Lungs: Unremarkable. No consolidation. Pleural space: Unremarkable. No pneumothorax. Heart: Cardiomegaly. Mildly prominent heart size. Mediastinum: Unremarkable. Bones/joints: Unremarkable. IMPRESSION: No acute findings in the chest.
--- NOTE | 2023-06-01 03:44 | P.CNPUL ---
History of Present Illness Consult date: 06/01/23 Requesting physician: Dell Borges Reason for consult: other (Pneumonia, ICU management) Chief complaint: Nausea, vomiting, generalized weakness History of present illness: I am seeing this patient in new consultation today 06/01/2023 in the intensive care unit after he was transferred for acute respiratory distress and possible aspiration. Patient is a 82-year-old white male with past medical history significant for atrial fibrillation, diabetes mellitus, hyperlipidemia, hypertension, pericardial effusion and prior pericardiocentesis, renal failure with previous renal transplant, prostate cancer, previous urinary tract infection, hypothyroidism. Patient presented to the emergency room yesterday morning complaining of nausea, vomiting, and generalized weakness. This has been ongoing for the last couple weeks. Denies any abdominal pain, hematemesis, constipation, diarrhea, or bloody diarrhea. He did have a fever with a T.max of 103.2 F. He does admit complaints of dysuria and urinary frequency with urgency. Denies any hematuria. Urinalysis was consistent with possible urinary tract infection. Patient's admission chest x-ray showed a right middle lobe infiltrate consistent with community acquired pneumonia. He was originally on 2 L/m nasal cannula when he came in to the ER. Patient was an ER hold for the selective care unit. Last night, he reportedly started to vomit, and then was found to be in some respiratory distress. An A-team was called. There were concerns for possible aspiration, he was temporarily placed on a 15 L nonrebreather. ABG showed a pO2 of 122, pCO2 32, pH of 7.44. He has been started on Zosyn for possible aspiration pneumonia. Also, patient was noted to be in atrial fibrillation with RVR at that time. He was started on a Cardizem infusion at 10 mg/hr. He was admitted to the intensive care unit for these reasons. CBC on arrival shows WBC count of 13.7, hemoglobin 13.8, hematocrit 22.5, platelets 88,000. BMP on arrival showed a sodium 136, potassium 4, chloride 104, serum bicarb 18, BUN 32, creatinine 1.4, glucose 105. Lactic acid 2.7, down to 1.3. Troponins elevated at 0.059 and 0.09. Negative for influenza, RSV, COVID-19. Urine Legionella antigen negative. Currently, the patient is sitting up in bed, on 6 L per nasal cannula, in no acute respiratory distress. Denies any further nausea or vomiting. Abdomen does not appear acute. Heart rhythm appears to be normal sinus with a first degree AV block on the bedside monitor, will obtain an EKG to confirm. Cardizem could probably be stopped. Patient denies any chest pain, palpitations, lightheadedness or syncope. Blood pressures normotensive, not requiring any vasopressors. Normal saline infusing at 60 ML's per hour. Patient does have history of renal transplant. He did have a CT angiogram of the bilateral lower extremities. He is apparently having a lower extremity weakness and pain. Denies any significant intermittent claudication symptoms. CT angiogram showed occlusion of the distal superficial femoral artery with short segment reconstitution of the proximal popliteal artery which then occludes. There is no definitive flow within the bilateral anterior tibial, posterior tibial, and peroneal arteries which may be secondary to occlusion versus poor arterial bolus. Patient denies any significant lower extremity pain. Bilateral feet are warm with diminished doppler pedal pulses. Patient will be monitored in the intensive care unit at least overnight. Review of Systems REVIEW OF SYSTEMS: CONSTITUTIONAL: Denies any recent significant weight loss or weight gain. Admits generalized fatigue and malaise. Denies fevers. EYES: Denies change in vision. EARS, NOSE, MOUTH, THROAT: Denies headaches, denies sore throat. CARDIOVASCULAR: Denies chest pain, palpitations or syncopal episodes. RESPIRATORY: Denies cough, congestion or hemoptysis. Does admit some mild shortness of breath at rest. GASTROINTESTINAL: . Admits nausea and vomiting which has subsided. Denies change in appetite, abdominal pain, hematemesis, or diarrhea GENITOURINARY: Denies hematuria. Admits urinary frequency, urgency, dysuria MUSKULOSKELETAL: Admits anterior left lower extremity pain with walking. INTEGUMENTARY: Denies rash, denies eczema. NEUROLOGICAL: Denies recent memory loss, no recent seizure activity. PSYCHIATRIC: Denies anxiety, denies depression. HEMATOLOGIC/LYMPHATIC: Denies anemia, denies enlarged lymph node 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." Hard of hearing, LOW PLATELETS, History of Any Multi-Drug Resistant Organisms: None Reported Past Surgical History: Unable to Obtain, Orthopedic Surgery Additional Past Surgical History / Comment(s): 12/02/21, KYPHOPLASTY AND BX (NEG). Leftkidney transplant 2002, parathyroid surgery, arthroscopy knee surgery, pericardiocentesis, cancer removed from ear, Past Anesthesia/Blood Transfusion Reactions: No Reported Reaction Past Psychological History: Anxiety, Depression Smoking Status: Never smoker Past Alcohol Use History: Rare Past Drug Use History: None Reported - Past Family History Father Family Medical History: Deep Vein Thrombosis (DVT) Son(s) Family Medical History: Cancer Additional Family Medical History / Comment(s): Skin cancer. Mother Family Medical History: Cancer Additional Family Medical History / Comment(s): . Medications and Allergies Home Medications Medication Instructions Recorded Confirmed Type Finasteride [Proscar] 5 mg PO DAILY 02/09/17 05/31/23 History Tamsulosin HCl [Flomax] 0.4 mg PO DAILY 02/09/17 05/31/23 History Multivitamins, Thera [Multivitamin 1 tab PO DAILY 12/31/18 05/31/23 History (formulary)] Vit C/E/Zn/Coppr/Lutein/Zeaxan 1 cap PO HS 12/18/19 05/31/23 History [Preservision Areds 2 Softgel] Pantoprazole [Protonix] 40 mg PO DAILY 12/28/19 05/31/23 History Metoprolol Tartrate [Lopressor] 25 mg PO DAILY 03/05/20 05/31/23 History Tacrolimus [Prograf] 1 mg PO BID 04/03/20 05/31/23 History mycophenolate mofetiL [Cellcept] 250 mg PO BID 04/03/20 05/31/23 History DULoxetine HCL [Cymbalta] 120 mg PO DAILY 12/01/20 05/31/23 History Levothyroxine Sodium [Synthroid] 75 mcg PO DAILY 12/01/20 05/31/23 History Aspirin 81 mg PO DAILY 07/12/21 05/31/23 History Gabapentin 300 mg PO HS 07/12/21 05/31/23 History QUEtiapine [SEROquel] 100 mg PO HS 07/12/21 05/31/23 History Rosuvastatin Calcium [Crestor] 5 mg PO HS 07/12/21 05/31/23 History Sodium Bicarbonate Tab 650 mg PO DAILY 07/12/21 05/31/23 History rOPINIRole HCL [Requip] 1 mg PO HS 09/02/21 05/31/23 History Insulin Glargine/Lixisenatide 30 units SQ DAILY 12/01/21 05/31/23 History [Soliqua 100 Unit-33 Mcg/ml Pen] Eltrombopag Olamine [Promacta] 12.5 mg PO DAILY 05/31/23 05/31/23 History Insulin Lispro [humaLOG Kwikpen] See Protocol SQ AC-TID 05/31/23 05/31/23 History Metoprolol Tartrate [Lopressor] 50 mg PO HS 05/31/23 05/31/23 History Mirabegron [Myrbetriq] 50 mg PO DAILY 05/31/23 05/31/23 History predniSONE 10 mg PO DAILY 05/31/23 05/31/23 History Allergies Allergy/AdvReac Type Severity Reaction Status Date / Time morphine Allergy Severe Itching Verified 05/31/23 09:36 Physical Exam Vitals: Vital Signs Temp Pulse Pulse Resp BP BP Pulse Ox 06/01/23 01:00 73 19 117/66 93 L 06/01/23 00:00 98.5 F 73 17 112/73 98 05/31/23 23:34 74 34 H 112/73 98 05/31/23 23:00 75 27 H 116/65 97 05/31/23 22:00 85 47 H 127/82 97 05/31/23 21:00 100.0 F H 114 H 34 H 153/86 98 05/31/23 20:00 30 H 97 05/31/23 19:23 103.2 F H 137 H 24 198/116 83 L 05/31/23 19:00 175/119 85 L 05/31/23 18:00 145/90 05/31/23 17:35 100.7 F H 05/31/23 17:00 145/90 05/31/23 16:00 145/90 05/31/23 15:04 97.5 F L 79 18 145/90 99 05/31/23 13:00 120/93 05/31/23 12:34 97.4 F L 80 18 120/93 99 05/31/23 12:00 137/91 99 05/31/23 11:53 97.7 F 86 18 137/91 97 05/31/23 11:00 122/80 95 05/31/23 10:00 128/87 98 05/31/23 09:00 90 18 125/78 94 L 05/31/23 07:28 91 18 145/83 97 05/31/23 05:51 99.5 F 120 H 18 180/98 96 Intake and Output 05/31/23 05/31/23 06/01/23 14:59 22:59 06:59 Intake Total 378 120 Balance 378 120 Intake: IV 10 120 Invasive Line 1 10 Sodium Chloride 0.9% 1, 120 000 ml @ 60 mls/hr IV . [id number] COUNT INCLUDES THE [facility] Rx#:[id number] Intake, IV Titration 250 Amount Azithromycin 500 mg In 250 Sodium Chloride 0.9% 250 ml @ 250 mls/hr IVPB ONCE STA Rx#:[id number] Oral 118 Other: Voiding Method External Catheter # Voids 1 Weight 90.718 kg GENERAL EXAM: Alert, 82-year-old white male appearing stated age, comfortable in no apparent distress. HEAD: Normocephalic and atraumatic EYES: Normal reaction of pupils, equal size. NOSE: Clear with pink turbinates. THROAT: No erythema or exudates. NECK: No masses, no JVD. CHEST: No chest wall deformity. LUNGS: Equal air entry with faint scattered ronchi. No crackles, wheeze, or dullness. On 6 L/m nasal cannula. No conversational dyspnea or accessory muscle use at rest CVS: S1 and S2 normal with no audible murmur, regular rhythm. No extra heart so unds ABDOMEN: No hepatosplenomegaly, active bowel sounds, no guarding or rigidity. SPINE: No scoliosis or deformity. No CVA tenderness. SKIN: No rashes CENTRAL NERVOUS SYSTEM: No focal deficits, tone is normal in all 4 extremities. EXTREMITIES: There is no peripheral edema, clubbing, or cyanosis. Peripheral pulses are intact. Results - Laboratory Findings CBC and BMP: 05/31/23 05:56 05/31/23 05:56 ABG ABG pH 7.44 (7.35-7.45) 05/31/23 19:52 ABG pCO2 32 mmHg (35-45) L 05/31/23 19:52 ABG pO2 122 mmHg (83-108) H 05/31/23 19:52 ABG O2 Saturation 99.0 % (94-97) H 05/31/23 19:52 PT/INR, D-dimer PT 12.3 sec (10.0-12.5) 05/31/23 05:56 INR 1.1 (<1.2) 05/31/23 05:56 Abnormal lab findings: Abnormal Labs 05/31/23 05/31/23 05/31/23 05:56 05:56 05:56 WBC 13.7 H RDW 15.9 H Plt Count 88 L Neutrophils # 12.5 H Lymphocytes # 0.6 L APTT 21.8 L ABG pCO2 ABG pO2 ABG O2 Saturation Sodium 136 L Carbon Dioxide 18 L BUN 32 H Creatinine 1.40 H Glucose 105 H POC Glucose (mg/dL) Plasma Lactic Acid Jc Total Bilirubin 2.1 H Troponin I Total Protein 6.1 L Urine Protein Urine Ketones Urine Blood Ur Leukocyte Esterase Urine RBC Urine WBC Urine WBC Clumps Urine Bacteria Urine Mucus 05/31/23 05/31/23 05/31/23 05:56 05:56 05:56 WBC RDW Plt Count Neutrophils # Lymphocytes # APTT ABG pCO2 ABG pO2 ABG O2 Saturation Sodium Carbon Dioxide BUN Creatinine Glucose POC Glucose (mg/dL) Plasma Lactic Acid Jc 2.7 H* Total Bilirubin Troponin I 0.059 H* Total Protein Urine Protein 2+ H Urine Ketones Trace H Urine Blood Moderate H Ur Leukocyte Esterase Large H Urine RBC 78 H Urine WBC >182 H Urine WBC Clumps Moderate H Urine Bacteria Occasional H Urine Mucus Rare H 05/31/23 05/31/23 05/31/23 10:45 10:45 12:41 WBC RDW Plt Count Neutrophils # Lymphocytes # APTT ABG pCO2 ABG pO2 ABG O2 Saturation Sodium Carbon Dioxide BUN Creatinine Glucose POC Glucose (mg/dL) 183 H 227 H Plasma Lactic Acid Jc Total Bilirubin Troponin I 0.091 H* Total Protein Urine Protein Urine Ketones Urine Blood Ur Leukocyte Esterase Urine RBC Urine WBC Urine WBC Clumps Urine Bacteria Urine Mucus 05/31/23 05/31/23 05/31/23 17:29 19:20 19:51 WBC RDW Plt Count Neutrophils # Lymphocytes # APTT ABG pCO2 ABG pO2 ABG O2 Saturation Sodium Carbon Dioxide BUN Creatinine Glucose POC Glucose (mg/dL) 187 H 172 H 195 H Plasma Lactic Acid Jc Total Bilirubin Troponin I Total Protein Urine Protein Urine Ketones Urine Blood Ur Leukocyte Esterase Urine RBC Urine WBC Urine WBC Clumps Urine Bacteria Urine Mucus 05/31/23 19:52 WBC RDW Plt Count Neutrophils # Lymphocytes # APTT ABG pCO2 32 L ABG pO2 122 H ABG O2 Saturation 99.0 H Sodium Carbon Dioxide BUN Creatinine Glucose POC Glucose (mg/dL) Plasma Lactic Acid Jc Total Bilirubin Troponin I Total Protein Urine Protein Urine Ketones Urine Blood Ur Leukocyte Esterase Urine RBC Urine WBC Urine WBC Clumps Urine Bacteria Urine Mucus - Diagnostic Findings Chest x-ray: image reviewed Assessment and Plan Assessment: Acute hypoxemic respiratory failure, possibly related aspiration pneumonia. Chest x-ray shows a right middle lobe infiltrate consistent with pneumonia. Negative for influenza, RSV, COVID-19. Urine Legionella antigen negative. Suspected urinary tract infection Leukocytosis, secondary to above Metabolic anion gap acidosis Atrial fibrillation with rapid ventricular rate, currently in normal sinus rhythm with first-degree AV block Elevated troponins, likely related supplies/demand mismatch and hypoxia Nausea and vomiting, improved Thrombocytopenia, chronic History of renal transplant, currently on Prograf, CellCept, and prednisone Chronic kidney disease stage III Diabetes mellitus, insulin independent, complicated with diabetic neuropathy History of prostate cancer Peripheral arterial disease Hypothyroidism Obesity with BMI of 30.4 kg/m Plan: Patient has been transferred to intensive care unit after being found to be in some respiratory distress on a rapid response. He was initially placed on a 15 L NRB, currently on 6 L nasal cannula Patient has been started on Zosyn for possible aspiration pneumonia Blood cultures are pending Heart rhythm appears to have converted to normal sinus rhythm. Cardizem can be stopped Blood pressure is stable Continue IV hydration, the patient received IV contrast. He has known history of renal transplant. Patient will be monitored in the intensive care unit for now We will continue to follow I have personally seen and examined the patient, performed the documentation and the assessment and plan as written. Number of minutes spent on the visit:20 Time with Patient: Greater than 30
[2023-06-01] MEDS: PIPERACILLIN-TAZOBACTAM 3.375 GM in SODIUM CHLORIDE 0.9% 100 ML IVPB SCH ×3 (04:48→20:03)
[2023-06-01 05:34] LABS: Anisocytosis Slight; HCT 37.3 % (39.0-53.0); HGB 11.8 gm/dL (13.0-17.5); Hypochromasia Slight; MCHC 31.5 g/dL (31.0-37.0); MCV 85.6 fL (80.0-100.0); Mean Platelet Volume 9.3; RBC 4.36 m/uL (4.30-5.90); WBC 12.1 k/uL (3.8-10.6)
[2023-06-01 05:35] LABS: Platelet Count 86 k/uL (150-450)
[2023-06-01 05:42] LABS: African American GFR (CKD) 44 (>60 ml/min/1.73 sqM); Anion Gap 12 mmol/L; Blood Urea Nitrogen 35 mg/dL (9-20); Calcium 7.9 mg/dL (8.4-10.2); Carbon Dioxide 20 mmol/L (22-30); Chloride 104 mmol/L (98-107); Glucose 171 mg/dL (74-99); Magnesium 1.7 mg/dL (1.6-2.3); Non-African American GFR(CKD) 38 (>60 ml/min/1.73 sqM); Potassium 4.6 mmol/L (3.5-5.1); Sodium 136 mmol/L (137-145)
[2023-06-01] MEDS ORDERED: Magnesium Replacement Protocol 1 EACH MISC MISCELLANE PRN (05:52)
[2023-06-01] MEDS ORDERED: MAGNESIUM SULFATE-D5W PMX 1 GM in DEXTROSE/WATER 1 100ML.BAG IVPB ONE (06:00)
[2023-06-01] MEDS: INSULIN ASPART (NovoLOG) 100 UNIT/ML VIAL SQ SCH ×5 (06:16→21:04)
[2023-06-01] MEDS: LEVOTHYROXINE 75 MCG TAB PO SCH (06:25)
[2023-06-01 06:36] LABS: Glucose,Whole Blood 188 mg/dL (70-110)
[2023-06-01] MEDS ORDERED: PANTOPRAZOLE 40 MG TABLET PO SCH (07:30)
--- NOTE | 2023-06-01 07:43 | XR ---
EXAMINATION TYPE: XR chest 1V portable DATE OF EXAM: 06/01/2023 5:32 AM CLINICAL INDICATION:Male, 82 years old with history of pneumonia; [facility] COMPARISON: Chest radiographs from 05/31/2023 TECHNIQUE: XR chest 1V portable Frontal view of the chest. FINDINGS: Lungs/Pleura: Improved aeration of lungs on today's exam with persistent airspace opacities in the shayna ng bases. No evidence of pneumothorax or large pleural effusion. Pulmonary vascularity: Unremarkable. Heart/mediastinum: Cardiomediastinal silhouette is unremarkable. Musculoskeletal: No acute osseous pathology. IMPRESSION: Improved aeration of the lungs with persistent airspace opacities in the lung bases
[2023-06-01] MEDS: DILTIAZEM 125 MG in SODIUM CHLORIDE 0.9% 100 ML IV SCH (08:21)
[2023-06-01] MEDS ORDERED: ENOXAPARIN 40 MG/0.4 ML SYRINGE SQ SCH (09:00)
[2023-06-01] MEDS ORDERED: NON FORMULARY DRUG (Insulin Glargine/Lixisenatide [Soliqua 100 Unit-33 Mcg/Ml Pen] 3 ML In SQ SCH (09:00)
[2023-06-01] MEDS ORDERED: METOPROLOL TARTRATE 25 MG TAB PO SCH ×2 (09:00→21:00)
[2023-06-01] MEDS ORDERED: AZITHROMYCIN 500 MG TAB PO SCH (09:00)
[2023-06-01] MEDS ORDERED: ELTROMBOPAG OLAMINE PO SCH (09:00)
--- NOTE | 2023-06-01 09:13 | P.PN ---
Subjective 82-year-old male came in with the complaints of not feeling well and generalized weakness. Patient is also unable to urinate. Patient had a low-grade fever which is only 99.5 and found to have leukocytosis upon further workup patient chest x-ray is suspicious for right middle lobe pneumonia when cautioned about UTI symptoms patient states he has some pain during urination but not much urine analysis and urine cultures are being obtained blood cultures were obtained patient is being admitted for treatment of pneumonia. Patient is not a great historian patient denied any significant cough with sputum production. Patient also has cold clammy limbs because of which she CT angios of the bilateral lower x-rays was obtained which showed occlusion of the distal superficial femoral artery and the head occlusion beyond the popliteal artery cannot be assessed as there may be lack of contrast. Patient has a renal transplant and is on no supp ressive therapy at this time. Patient doesn't have any symptoms of claudication but does have cold clammy limbs and barely appreciable pedal pulses. 06/01/2023 Later in the day yesterday patient the end up throwing up and aspirated went into acute respiratory failure requiring 15 L of oxygen was subsequently transferred to intensive care unit. Patient went into atrial fibrillation last night was started on IV Cardizem heart rate is better controlled now. Patient to metoprolol dose will be increased from 25 daily to 25 twice a day patient heart rate is around high 90s at this time. Patient is being transferred out of ICU patient was switched to Zosyn from Rocephin. Vascular surgery evaluated the patient is today they believe patient has chronic arterial occlusion and peripheral vascular disease and will need follow-up as an outpatient but no further intervention as an inpatient here. Patient also went into acute renal failure with creatinine going up to 1.69, nephrology was consulted patient was started on IV fluids. Patient has leukocytosis does have elevated pro calcitonin. Patient was not on anticoagulation for atrial fibrillation because of mild thrombocytopenia which is actually not continue medication as his platelets above 50,000 but patient was having orthostatic hypotension and falls because of which his physician discontinued anticoagulation. I'll consult c ardiology to evaluate for anticoagulation. Patient is presently on 6 L of oxygen Constitutional: Denied any fatigue denied any fever. Cardio vascular: denied any chest pain, palpitations Gastrointestinal denied any nausea vomiting Pulmonary: Feeling much better now All inpatient medications were reviewed and appropriate changes in these medications as dictated in the interval history and assessment and plan. PHYSICAL EXAMINATION: GENERAL: The patient is alert and oriented x3, not in any acute distress. Well developed, well nourished. On 6 to dysfunction not in respiratory distress HEENT: Pupils are round and equally reacting to light. EOMI. No scleral icterus. No conjunctival pallor. Normocephalic, atraumatic. No pharyngeal erythema. No thyromegaly. CARDIOVASCULAR: S1 and S2 present. No murmurs, rubs, or gallops. PULMONARY: Chest is clear to auscultation, no wheezing or crackles. ABDOMEN: Soft, nontender, nondistended, normoactive bowel sounds. No palpable organomegaly. MUSCULOSKELETAL: No joint swelling or deformity. EXTREMITIES: No cyanosis, clubbing, or pedal edema. Patient does have the barely appreciable bilateral pedal pulses cold clammy limbs NEUROLOGICAL: Gross neurological examination did not reveal any focal deficits. SKIN: No rashes. Assessment and plan -Sepsis possibly secondary to pneumonia , patient aspirated as today because of which are anteverted was changed to Zosyn from a Rocephin and is being continued on azithromycin, urinary Legionella antigen is negative patient has elevated pro calcitonin up to 2.5 -Generalized weakness secondary to age and may be pneumonia, physical therapy and occupational therapy evaluation -Peripheral vascular disease patient doesn't have a limb threatening ischemia , patient was evaluated by vascular surgery can follow-up as an outpatient -Renal transplant -Acute renal failure secondary to sepsis and acute tumor necrosis can you with IV fluids and nephrology was consulted -Type 2 diabetes mellitus patient will be resumed on home dose of long-acting insulin along with sliding scale insulin. -Proximal atrial fibrillation rapid atrial rate last night because of aspiration and sepsis which improved at this time her Toprol dose will be increased to 25 mg twice a day, cardiology was consulted to evaluate for anticoagulation. Patient was a taken of anti-correlation with PCP as he was having orthostatic hypotension and falls as an outpatient although this doesn't appear to be a problem. Patient has mild thrombocytopenia but this is not a current medication as his platelets is above 50,000 patient denied any previous GI bleeds -Thrombocytopenia chronic further evaluation as an outpatient #5 hyperlipidemia Hypertension -hyperthyroidism DVT prophylaxis: Subcutaneous heparin Objective - Vital Signs Vital signs: Vital Signs Temp 97.8 F 06/01/23 04:00 Pulse 72 06/01/23 06:00 Resp 20 06/01/23 06:00 BP 145/80 06/01/23 06:00 Pulse Ox 97 06/01/23 06:00 FiO2 Intake & Output 05/31/23 06/01/23 06/01/23 18:59 06:59 18:59 Intake Total 378 579.167 Output Total 350 Balance 378 229.167 Weight 90.718 kg 91.6 kg Intake: IV 10 520 Invasive Line 1 10 Piperacillin-Tazobactam 3 100 .375 gm In Sodium Chloride 0.9% 100 ml @ 25 mls/hr IVPB Q8H [facility] Rx#: [id number] Sodium Chloride 0.9% 1, 420 000 ml @ 60 mls/hr IV . [id number] [facility] Rx#:[id number] Intake, IV Titration 250 59.167 Amount Azithromycin 500 mg In 250 Sodium Chloride 0.9% 250 ml @ 250 mls/hr IVPB ONCE STA Rx#:[id number] Diltiazem 125 mg In 59.167 Sodium Chloride 0.9% 100 ml @ 10 MG/HR 10 mls/hr IV .[id number] [facility] Rx#: [id number] Oral 118 Output: Urine 350 Other: Voiding Method External Catheter External Catheter # Voids 1 - Labs CBC & Chem 7: 06/01/23 05:07 06/01/23 05:07 Labs: Abnormal Lab Results - Last 24 Hours (Table) 05/31/23 05/31/23 05/31/23 Range/Units 05:56 10:45 10:45 WBC (3.8-10.6) k/uL Hgb (13.0-17.5) gm/dL Hct (39.0-53.0) % RDW (11.5-15.5) % Plt Count (150-450) k/uL ABG pCO2 (35-45) mmHg ABG pO2 (83-108) mmHg ABG O2 Saturation (94-97) % Sodium (137-145) mmol/L Carbon Dioxide (22-30) mmol/L BUN (9-20) mg/dL Creatinine (0.66-1.25) mg/dL Glucose (74-99) mg/dL POC Glucose (mg/dL) 183 H (70-110) mg/dL Calcium (8.4-10.2) mg/dL Troponin I 0.091 H* (0.000-0.034) ng/mL Procalcitonin (0.02-0.09) ng/mL Urine Protein 2+ H (Negative) Urine Ketones Trace H (Negative) Urine Blood Moderate H (Negative) Ur Leukocyte Esterase Large H (Negative) Urine RBC 78 H (0-5) /hpf Urine WBC >182 H (0-5) /hpf Urine WBC Clumps Moderate H (None) /hpf Urine Bacteria Occasional H (None) /hpf Urine Mucus Rare H (None) /hpf 05/31/23 05/31/23 05/31/23 Range/Units 12:00 12:41 17:29 WBC (3.8-10.6) k/uL Hgb (13.0-17.5) gm/dL Hct (39.0-53.0) % RDW (11.5-15.5) % Plt Count (150-450) k/uL ABG pCO2 (35-45) mmHg ABG pO2 (83-108) mmHg ABG O2 Saturation (94-97) % Sodium (137-145) mmol/L Carbon Dioxide (22-30) mmol/L BUN (9-20) mg/dL Creatinine (0.66-1.25) mg/dL Glucose (74-99) mg/dL POC Glucose (mg/dL) 227 H 187 H (70-110) mg/dL Calcium (8.4-10.2) mg/dL Troponin I (0.000-0.034) ng/mL Procalcitonin 2.16 H (0.02-0.09) ng/mL Urine Protein (Negative) Urine Ketones (Negative) Urine Blood (Negative) Ur Leukocyte Esterase (Negative) Urine RBC (0-5) /hpf Urine WBC (0-5) /hpf Urine WBC Clumps (None) /hpf Urine Bacteria (None) /hpf Urine Mucus (None) /hpf 05/31/23 05/31/23 05/31/23 Range/Units 19:20 19:51 19:52 WBC (3.8-10.6) k/uL Hgb (13.0-17.5) gm/dL Hct (39.0-53.0) % RDW (11.5-15.5) % Plt Count (150-450) k/uL ABG pCO2 32 L (35-45) mmHg ABG pO2 122 H (83-108) mmHg ABG O2 Saturation 99.0 H (94-97) % Sodium (137-145) mmol/L Carbon Dioxide (22-30) mmol/L BUN (9-20) mg/dL Creatinine (0.66-1.25) mg/dL Glucose (74-99) mg/dL POC Glucose (mg/dL) 172 H 195 H (70-110) mg/dL Calcium (8.4-10.2) mg/dL Troponin I (0.000-0.034) ng/mL Procalcitonin (0.02-0.09) ng/mL Urine Protein (Negative) Urine Ketones (Negative) Urine Blood (Negative) Ur Leukocyte Esterase (Negative) Urine RBC (0-5) /hpf Urine WBC (0-5) /hpf Urine WBC Clumps (None) /hpf Urine Bacteria (None) /hpf Urine Mucus (None) /hpf 06/01/23 06/01/23 06/01/23 Range/Units 05:07 05:07 06:34 WBC 12.1 H (3.8-10.6) k/uL Hgb 11.8 L (13.0-17.5) gm/dL Hct 37.3 L (39.0-53.0) % RDW 16.0 H (11.5-15.5) % Plt Count 86 L (150-450) k/uL ABG pCO2 (35-45) mmHg ABG pO2 (83-108) mmHg ABG O2 Saturation (94-97) % Sodium 136 L (137-145) mmol/L Carbon Dioxide 20 L (22-30) mmol/L BUN 35 H (9-20) mg/dL Creatinine 1.69 H (0.66-1.25) mg/dL Glucose 171 H (74-99) mg/dL POC Glucose (mg/dL) 188 H (70-110) mg/dL Calcium 7.9 L (8.4-10.2) mg/dL Troponin I (0.000-0.034) ng/mL Procalcitonin (0.02-0.09) ng/mL Urine Protein (Negative) Urine Ketones (Negative) Urine Blood (Negative) Ur Leukocyte Esterase (Negative) Urine RBC (0-5) /hpf Urine WBC (0-5) /hpf Urine WBC Clumps (None) /hpf Urine Bacteria (None) /hpf Urine Mucus (None) /hpf
[2023-06-01] MEDS: DULoxetine HCL 60 MG CAPSULE.DR PO SCH (09:38)
[2023-06-01] MEDS: MULTIVITAMINS, THERA 1 EACH TAB PO SCH (09:38)
[2023-06-01] MEDS: ASPIRIN 81 MG PO SCH (09:38)
[2023-06-01] MEDS: TAMSULOSIN 0.4 MG CAP.ER.24H PO SCH (09:39)
[2023-06-01] MEDS: PANTOPRAZOLE 40 MG/10 ML VIAL IVP SCH ×2 (09:39→21:45)
[2023-06-01] MEDS: predniSONE 10 MG TAB PO SCH (09:39)
[2023-06-01] MEDS: SODIUM BICARBONATE TAB 650 MG TAB PO SCH (09:40)
[2023-06-01] MEDS: MAGNESIUM SULFATE-D5W PMX 1 GM in DEXTROSE/WATER 1 100ML.BAG IVPB SCH ×2 (09:41→10:41)
[2023-06-01] MEDS: SODIUM CHLORIDE 0.9% 1,000 ML IV SCH (10:26)
[2023-06-01] MEDS: FINASTERIDE 5 MG TAB PO SCH (10:28)
[2023-06-01] MEDS: Mirabegron [Myrbetriq] 50 MG Tab.Er.24h PO SCH (10:29)
--- NOTE | 2023-06-01 10:32 | P.PN ---
Subjective Progress Note Date: 06/01/23 Principal diagnosis: Left lower extremity chronic arterial occlusion Patient is seen and examined in the ICU. Apparently yesterday evening patient had vomited, he was transferred to the intensive care unit for acute respiratory distress and possible aspiration pneumonia. Today he was seen sitting up in the chair currently on 6 L of high flow nasal cannula. He denies any pain to his left lower extremity. He underwent arterial duplex of the lower extremities which right lower extremity overall looked normal, left lower extremity more monophasic in appearance of waveforms with an GALINA of 0.88. Objective - Vital Signs Vital signs: Vital Signs Temp 97.8 F 06/01/23 04:00 Pulse 72 06/01/23 06:00 Resp 20 06/01/23 06:00 BP 145/80 06/01/23 06:00 Pulse Ox 97 06/01/23 06:00 FiO2 Intake & Output 05/31/23 06/01/23 06/01/23 18:59 06:59 18:59 Intake Total 378 579.167 Output Total 350 Balance 378 229.167 Weight 90.718 kg 91.6 kg Intake: IV 10 520 Invasive Line 1 10 Piperacillin-Tazobactam 3 100 .375 gm In Sodium Chloride 0.9% 100 ml @ 25 mls/hr IVPB Q8H [facility] Rx#: [id number] Sodium Chloride 0.9% 1, 420 000 ml @ 60 mls/hr IV . [id number] [facility] Rx#:[id number] Intake, IV Titration 250 59.167 Amount Azithromycin 500 mg In 250 Sodium Chloride 0.9% 250 ml @ 250 mls/hr IVPB ONCE [facility] Rx#:[id number] Diltiazem 125 mg In 59.167 Sodium Chloride 0.9% 100 ml @ 10 MG/HR 10 mls/hr IV .[id number] [facility] Rx#: [id number] Oral 118 Output: Urine 350 Other: Voiding Method External Catheter External Catheter # Voids 1 - Exam General appearance: The patient is alert, oriented, appears in no acute distress. HET: Head is normocephalic and atraumatic. Pupils are equal and reactive. Neck: Supple. Heart: Regular. Lungs: Equal expansion, normal respiratory effort. Abdomen: Soft, nontender, nondistended. Extremities: Normal skin color and turgor. Left lower extremity with Nonpalpable DP or PT pulse. bilateral feet mildly cool, with good capillary ref ill. Sensorimotor intact. Neurological: No focal deficits. Strength and sensation are grossly intact. - Labs CBC & Chem 7: 06/01/23 05:07 06/01/23 05:07 Labs: Abnormal Lab Results - Last 24 Hours (Table) 05/31/23 05/31/23 05/31/23 Range/Units 05:56 10:45 10:45 WBC (3.8-10.6) k/uL Hgb (13.0-17.5) gm/dL Hct (39.0-53.0) % RDW (11.5-15.5) % Plt Count (150-450) k/uL ABG pCO2 (35-45) mmHg ABG pO2 (83-108) mmHg ABG O2 Saturation (94-97) % Sodium (137-145) mmol/L Carbon Dioxide (22-30) mmol/L BUN (9-20) mg/dL Creatinine (0.66-1.25) mg/dL Glucose (74-99) mg/dL POC Glucose (mg/dL) 183 H (70-110) mg/dL Calcium (8.4-10.2) mg/dL Troponin I 0.091 H* (0.000-0.034) ng/mL Procalcitonin (0.02-0.09) ng/mL Urine Protein 2+ H (Negative) Urine Ketones Trace H (Negative) Urine Blood Moderate H (Negative) Ur Leukocyte Esterase Large H (Negative) Urine RBC 78 H (0-5) /hpf Urine WBC >182 H (0-5) /hpf Urine WBC Clumps Moderate H (None) /hpf Urine Bacteria Occasional H (None) /hpf Urine Mucus Rare H (None) /hpf 05/31/23 05/31/23 05/31/23 Range/Units 12:00 12:41 17:29 WBC (3.8-10.6) k/uL Hgb (13.0-17.5) gm/dL Hct (39.0-53.0) % RDW (11.5-15.5) % Plt Count (150-450) k/uL ABG pCO2 (35-45) mmHg ABG pO2 (83-108) mmHg ABG O2 Saturation (94-97) % Sodium (137-145) mmol/L Carbon Dioxide (22-30) mmol/L BUN (9-20) mg/dL Creatinine (0.66-1.25) mg/dL Glucose (74-99) mg/dL POC Glucose (mg/dL) 227 H 187 H (70-110) mg/dL Calcium (8.4-10.2) mg/dL Troponin I (0.000-0.034) ng/mL Procalcitonin 2.16 H (0.02-0.09) ng/mL Urine Protein (Negative) Urine Ketones (Negative) Urine Blood (Negative) Ur Leukocyte Esterase (Negative) Urine RBC (0-5) /hpf Urine WBC (0-5) /hpf Urine WBC Clumps (None) /hpf Urine Bacteria (None) /hpf Urine Mucus (None) /hpf 05/31/23 05/31/23 05/31/23 Range/Units 19:20 19:51 19:52 WBC (3.8-10.6) k/uL Hgb (13.0-17.5) gm/dL Hct (39.0-53.0) % RDW (11.5-15.5) % Plt Count (150-450) k/uL ABG pCO2 32 L (35-45) mmHg ABG pO2 122 H (83-108) mmHg ABG O2 Saturation 99.0 H (94-97) % Sodium (137-145) mmol/L Carbon Dioxide (22-30) mmol/L BUN (9-20) mg/dL Creatinine (0.66-1.25) mg/dL Glucose (74-99) mg/dL POC Glucose (mg/dL) 172 H 195 H (70-110) mg/dL Calcium (8.4-10.2) mg/dL Troponin I (0.000-0.034) ng/mL Procalcitonin (0.02-0.09) ng/mL Urine Protein (Negative) Urine Ketones (Negative) Urine Blood (Negative) Ur Leukocyte Esterase (Negative) Urine RBC (0-5) /hpf Urine WBC (0-5) /hpf Urine WBC Clumps (None) /hpf Urine Bacteria (None) /hpf Urine Mucus (None) /hpf 06/01/23 06/01/23 06/01/23 Range/Units 05:07 05:07 06:34 WBC 12.1 H (3.8-10.6) k/uL Hgb 11.8 L (13.0-17.5) gm/dL Hct 37.3 L (39.0-53.0) % RDW 16.0 H (11.5-15.5) % Plt Count 86 L (150-450) k/uL ABG pCO2 (35-45) mmHg ABG pO2 (83-108) mmHg ABG O2 Saturation (94-97) % Sodium 136 L (137-145) mmol/L Carbon Dioxide 20 L (22-30) mmol/L BUN 35 H (9-20) mg/dL Creatinine 1.69 H (0.66-1.25) mg/dL Glucose 171 H (74-99) mg/dL POC Glucose (mg/dL) 188 H (70-110) mg/dL Calcium 7.9 L (8.4-10.2) mg/dL Troponin I (0.000-0.034) ng/mL Procalcitonin (0.02-0.09) ng/mL Urine Protein (Negative) Urine Ketones (Negative) Urine Blood (Negative) Ur Leukocyte Esterase (Negative) Urine RBC (0-5) /hpf Urine WBC (0-5) /hpf Urine WBC Clumps (None) /hpf Urine Bacteria (None) /hpf Urine Mucus (None) /hpf Assessment and Plan Assessment: 1. Sepsis possibly secondary to Pneumonia 2. Left lower extremity SFA occlusion and popliteal artery occlusion per CTA, appears chronic. Left lower extremity GALINA 0.88, motor sensory intact, no leg pain 3. History atrial fibrillation not on anticoagulation 4. Diabetes mellitus 5. Hypertension 6. Hyperlipidemia 7. History of left kidney transplant Plan: Patient admitted for sepsis likely secondary to pneumonia. Patient has overall generalized weakness. He was noted to have nonpalpable pulses and underwent CT angiogram of lower extremities which shows peripheral arterial disease with SFA occlusion of the left lower extremity. He is without any claudication and denies any rest pain in his legs. This is likely all chronic peripheral arterial disease, lower extremity arterial ultrasound ordered and reviewed. Right lower extremity noncompressible but multiphasic waveforms, left GALINA 0.88, more monophasic in appearance. Mildly abnormal, but given no clinical evidence of significant ischemic changes. There is no indication for any vascular surgical intervention or further workup at this time. Patient to follow-up with vascular surgery in a couple weeks after discharge. Thank you for this consultation. We will sign off at this time. The impression and plan of care has been dictated as directed. I performed a history and examination of this patient, discussed the same with the dictator. I agree with the dictator's note ,documented as a scribe. Any additional findings or plans will be noted.
[2023-06-01] MEDS: ELTROMBOPAG OLAMINE PO SCH (11:59)
[2023-06-01 12:01] LABS: Glucose,Whole Blood 257 mg/dL (70-110)
[2023-06-01 12:01] LABS: Glucose,Whole Blood 263 mg/dL (70-110)
--- NOTE | 2023-06-01 12:38 | P.NPCON ---
History of Present Illness - Reason for Consult acute renal failure - History of Present Illness Patient is an 82-year-old male with history of chronic kidney disease and status post donor renal transplant in April 2003 at [facility]. Patient's baseline creatinine has been around 1.2-1.5 mg/dL. He is admitted to the hospital with history of increased weakness nausea and vomiting for about a week prior to admission. He also noticed decreased urine output and had a fever of 99.5F. Chest x-ray suspicious for right middle lobe pneumonia. Serum creatinine was 1.4 yesterday and increased to 1.69 today. Patient was transferred to the ICU last night as he developed respiratory distr ess after emesis and there was concern for possible aspiration. He was maintained on 15 L of oxygen. Patient also developed A. fib with RVR and was started on Cardizem drip. He has converted back to sinus rhythm. Status post CT angiogram of lower extremities last night shows decreased flow in the tibial and peroneal arteries. Currently maintained on IV fluids with good urine output. Overall feeling better. Maintained on 6 L of oxygen via nasal cannula. Review of Systems As per HPI 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." Hard of hearing, LOW PLATELETS, History of Any Multi-Drug Resistant Organisms: None Reported Past Surgical History: Unable to Obtain, Orthopedic Surgery Additional Past Surgical History / Comment(s): 12/02/21, KYPHOPLASTY AND BX (NEG). Leftkidney transplant 2002, parathyroid surgery, arthroscopy knee surgery, pericardiocentesis, cancer removed from ear, Past Anesthesia/Blood Transfusion Reactions: No Reported Reaction Past Psychological History: Anxiety, Depression Smoking Status: Never smoker Past Alcohol Use History: Rare Past Drug Use History: None Reported - Past Family History Father Family Medical History: Deep Vein Thrombosis (DVT) Son(s) Family Medical History: Cancer Additional Family Medical History / Comment(s): Skin cancer. Mother Family Medical History: Cancer Additional Family Medical History / Comment(s): . Medications and Allergies Home Medications Medication Instructions Recorded Confirmed Type Finasteride [Proscar] 5 mg PO DAILY 02/09/17 05/31/23 History Tamsulosin HCl [Flomax] 0.4 mg PO DAILY 02/09/17 05/31/23 History Multivitamins, Thera [Multivitamin 1 tab PO DAILY 12/31/18 05/31/23 History (formulary)] Vit C/E/Zn/Coppr/Lutein/Zeaxan 1 cap PO HS 12/18/19 05/31/23 History [Preservision Areds 2 Softgel] Pantoprazole [Protonix] 40 mg PO DAILY 12/28/19 05/31/23 History Metoprolol Tartrate [Lopressor] 25 mg PO DAILY 03/05/20 05/31/23 History Tacrolimus [Prograf] 1 mg PO BID 04/03/20 05/31/23 History mycophenolate mofetiL [Cellcept] 250 mg PO BID 04/03/20 05/31/23 History DULoxetine HCL [Cymbalta] 120 mg PO DAILY 12/01/20 05/31/23 History Levothyroxine Sodium [Synthroid] 75 mcg PO DAILY 12/01/20 05/31/23 History Aspirin 81 mg PO DAILY 07/12/21 05/31/23 History Gabapentin 300 mg PO HS 07/12/21 05/31/23 History QUEtiapine [SEROquel] 100 mg PO HS 07/12/21 05/31/23 History Rosuvastatin Calcium [Crestor] 5 mg PO HS 07/12/21 05/31/23 History Sodium Bicarbonate Tab 650 mg PO DAILY 07/12/21 05/31/23 History rOPINIRole HCL [Requip] 1 mg PO HS 09/02/21 05/31/23 History Insulin Glargine/Lixisenatide 30 units SQ DAILY 12/01/21 05/31/23 History [Soliqua 100 Unit-33 Mcg/ml Pen] Eltrombopag Olamine [Promacta] 12.5 mg PO DAILY 05/31/23 05/31/23 History Insulin Lispro [humaLOG Kwikpen] See Protocol SQ AC-TID 05/31/23 05/31/23 History Metoprolol Tartrate [Lopressor] 50 mg PO HS 05/31/23 05/31/23 History Mirabegron [Myrbetriq] 50 mg PO DAILY 05/31/23 05/31/23 History predniSONE 10 mg PO DAILY 05/31/23 05/31/23 History Allergies Allergy/AdvReac Type Severity Reaction Status Date / Time morphine Allergy Severe Itching Verified 05/31/23 09:36 Physical Exam Vitals: Vital Signs Temp Pulse Pulse Resp BP BP Pulse Ox 06/01/23 12:00 98.1 F 93 16 144/71 97 06/01/23 11:00 92 16 161/90 87 L 06/01/23 10:00 118 H 14 144/71 97 06/01/23 09:00 82 19 145/76 98 06/01/23 08:00 99.2 F 77 14 160/81 89 L 06/01/23 07:00 71 14 150/83 99 06/01/23 06:00 72 20 145/80 97 06/01/23 05:00 71 25 H 136/72 90 L 06/01/23 04:00 97.8 F 73 22 149/79 97 06/01/23 03:00 72 19 133/73 96 06/01/23 02:00 73 29 H 119/66 96 06/01/23 01:00 73 19 117/66 93 L 06/01/23 00:00 98.5 F 73 17 112/73 98 05/31/23 23:34 74 34 H 112/73 98 05/31/23 23:00 75 27 H 116/65 97 05/31/23 22:00 85 47 H 127/82 97 05/31/23 21:00 100.0 F H 114 H 34 H 153/86 98 05/31/23 20:00 30 H 97 05/31/23 19:23 103.2 F H 137 H 24 198/116 83 L 05/31/23 19:00 175/119 85 L 05/31/23 18:00 145/90 05/31/23 17:35 100.7 F H 05/31/23 17:00 145/90 05/31/23 16:00 145/90 05/31/23 15:04 97.5 F L 79 18 145/90 99 05/31/23 13:00 120/93 05/31/23 12:34 97.4 F L 80 18 120/93 99 Intake and Output 11/08/23 11/09/23 11/09/23 22:59 06:59 14:59 Intake Total 579.167 675 Output Total 350 200 Balance 229.167 475 Intake: IV 520 675 Magnesium Sulfate-D5w Pmx 200 1 gm In Dextrose/Water 1 100ml.bag @ 100 mls/hr IVPB Q1H [facility] Rx#: [id number] Piperacillin-Tazobactam 3 100 100 .375 gm In Sodium Chloride 0.9% 100 ml @ 25 mls/hr IVPB Q8H [place] Rx#: [id number] Sodium Chloride 0.9% 1, 420 000 ml @ 60 mls/hr IV . [id number] [place] Rx#:[id number] Sodium Chloride 0.9% 1, 375 000 ml @ 75 mls/hr IV . [id number] [facility] Rx#:[id number] Intake, IV Titration 59.167 Amount Diltiazem 125 mg In 59.167 Sodium Chloride 0.9% 100 ml @ 10 MG/HR 10 mls/hr IV .[id number] [place] Rx#: [id number] Output: Urine 350 200 Other: Voiding Method External Catheter # Voids 1 Weight 91.6 kg Patient is awake, alert oriented 3. No acute distress Examination of the heart S1 and S2 Examination of the lungs bilateral breath sounds are heard Abdomen is soft nontender, renal allograft left lower quadrant, nontender Examination of lower extremities shows no evidence of edema [employer] exam grossly intact Results - Lab Results Most recent lab results ABG pH 7.44 (7.35-7.45) 05/31/23 19:52 ABG pCO2 32 mmHg (35-45) L 05/31/23 19:52 ABG pO2 122 mmHg (83-108) H 05/31/23 19:52 ABG HCO3 22 mmol/L (21-25) 05/31/23 19:52 ABG O2 Saturation 99.0 % (94-97) H 05/31/23 19:52 Calcium 7.9 mg/dL (8.4-10.2) L 06/01/23 05:07 Magnesium 1.7 mg/dL (1.6-2.3) 06/01/23 05:07 06/01/23 05:07 06/01/23 05:07 Assessment and Plan Assessment: 1. Acute kidney injury most likely ATN, currently nonoliguric. Rule out urine retention. 2. Chronic kidney disease NKF stage IIIa with baseline creatinine around 1.2- 1.4 mg/dL secondary to chronic allograft nephropathy 3. Status post donor kidney transplant in 2002 maintained on CellCept, prednisone and Prograf 4. Metabolic acidosis maintained on oral sodium bicarb 5. Pneumonia possible aspiration pneumonia maintained on antibiotics 6. Acute hypoxic respiratory failure 7. Pyuria rule out UTI in the renal transplant Plan: Continue with normal saline Repeat labs in a.m. Check post void residual Continue prednisone CellCept and tacrolimus. Check tacrolimus level in a.m. Continue with antibiotics Check urine culture Thank you for the consultation. We will continue to follow the patient with you during his hospitalization.
[2023-06-01 16:06] LABS: Glucose,Whole Blood 380 mg/dL (70-110)
[2023-06-01] MEDS: SOLIQUA SQ SCH (16:10)
[2023-06-01] MEDS ORDERED: METOPROLOL TARTRATE 25 MG TAB PO STA (16:20)
[2023-06-01] MEDS ORDERED: INSULIN DETEMIR (LEVEMIR) 100 UNIT/ML SYR SQ ONE (17:30)
[2023-06-01] MEDS: METOPROLOL TARTRATE 50 MG TAB PO SCH (21:45)
[2023-06-01] MEDS: MYCOPHENOLATE 250 MG PO SCH (21:45)
--- NOTE | 2023-06-01 22:24 | P.CONS ---
History of Present Illness - Reason for Consult Consult date: 06/01/23 - History of Present Illness Patient is a 82-year-old male with a past medical history significant for diabetes mellitus hypertension hyperlipidemia atrial fibrillation patient presenting to the hospital yesterday morning with chief complaints of nausea vomiting and weakness patient reporting feeling bad over the last couple of weeks also has some increased urinary frequency but no dysuria patient on initial presentation to the hospital was afebrile however he did spike a fever of 103.2 F last night patient was also tachycardic patient apparently did have episodes of vomiting and subsequent increasing shortness of breath and hypoxemia requiring the patient to be transferred to the ICU patient did have a white count 13.7 with a left shift did have few mild elevated urine creatinine urine was positive influenza RSV and COVID testing was negative patient did have a chest x-ray increased right middle lobe airspace opacities concerning for pneumonia patient was initially on Rocephin Zithromax that has been switched to Zosyn infectious disease was consulted for further management of antibiotic therapy, patient denies having any headache or URI symptoms no chest pain breathing has slightly improved he continued to have a cough moderate intensity minimal sputum production no further vomiting abdominal pain or diarrhea 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." Hard of hearing, LOW PLATELETS, History of Any Multi-Drug Resistant Organisms: None Reported Past Surgical History: Unable to Obtain, Orthopedic Surgery Additional Past Surgical History / Comment(s): 12/02/21, KYPHOPLASTY AND BX (NEG). Leftkidney transplant 2002, parathyroid surgery, arthroscopy knee surgery, pericardiocentesis, cancer removed from ear, Past Anesthesia/Blood Transfusion Reactions: No Reported Reaction Past Psychological History: Anxiety, Depression Smoking Status: Never smoker Past Alcohol Use History: Rare Past Drug Use History: None Reported - Past Family History Father Family Medical History: Deep Vein Thrombosis (DVT) Son(s) Family Medical History: Cancer Additional Family Medical History / Comment(s): Skin cancer. Mother Family Medical History: Cancer Additional Family Medical History / Comment(s): . Medications and Allergies Home Medications Medication Instructions Recorded Confirmed Type Finasteride [Proscar] 5 mg PO DAILY 02/09/17 05/31/23 History Tamsulosin HCl [Flomax] 0.4 mg PO DAILY 02/09/17 05/31/23 History Multivitamins, Thera [Multivitamin 1 tab PO DAILY 12/31/18 05/31/23 History (formulary)] Vit C/E/Zn/Coppr/Lutein/Zeaxan 1 cap PO HS 12/18/19 05/31/23 History [Preservision Areds 2 Softgel] Pantoprazole [Protonix] 40 mg PO DAILY 12/28/19 05/31/23 History Metoprolol Tartrate [Lopressor] 25 mg PO DAILY 03/05/20 05/31/23 History Tacrolimus [Prograf] 1 mg PO BID 04/03/20 05/31/23 History mycophenolate mofetiL [Cellcept] 250 mg PO BID 04/03/20 05/31/23 History DULoxetine HCL [Cymbalta] 120 mg PO DAILY 12/01/20 05/31/23 History Levothyroxine Sodium [Synthroid] 75 mcg PO DAILY 12/01/20 05/31/23 History Aspirin 81 mg PO DAILY 07/12/21 05/31/23 History Gabapentin 300 mg PO HS 07/12/21 05/31/23 History QUEtiapine [SEROquel] 100 mg PO HS 07/12/21 05/31/23 History Rosuvastatin Calcium [Crestor] 5 mg PO HS 07/12/21 05/31/23 History Sodium Bicarbonate Tab 650 mg PO DAILY 07/12/21 05/31/23 History rOPINIRole HCL [Requip] 1 mg PO HS 09/02/21 05/31/23 History Insulin Glargine/Lixisenatide 30 units SQ DAILY 12/01/21 05/31/23 History [Soliqua 100 Unit-33 Mcg/ml Pen] Eltrombopag Olamine [Promacta] 12.5 mg PO DAILY 05/31/23 05/31/23 History Insulin Lispro [humaLOG Kwikpen] See Protocol SQ AC-TID 05/31/23 05/31/23 History Metoprolol Tartrate [Lopressor] 50 mg PO HS 05/31/23 05/31/23 History Mirabegron [Myrbetriq] 50 mg PO DAILY 05/31/23 05/31/23 History predniSONE 10 mg PO DAILY 05/31/23 05/31/23 History Allergies Allergy/AdvReac Type Severity Reaction Status Date / Time morphine Allergy Severe Itching Verified 05/31/23 09:36 Physical Exam Vitals: Vital Signs Temp Pulse Pulse Resp BP BP Pulse Ox 06/01/23 06:00 72 20 145/80 97 06/01/23 05:00 71 25 H 136/72 90 L 06/01/23 04:00 97.8 F 73 22 149/79 97 06/01/23 03:00 72 19 133/73 96 06/01/23 02:00 73 29 H 119/66 96 06/01/23 01:00 73 19 117/66 93 L 06/01/23 00:00 98.5 F 73 17 112/73 98 05/31/23 23:34 74 34 H 112/73 98 05/31/23 23:00 75 27 H 116/65 97 05/31/23 22:00 85 47 H 127/82 97 05/31/23 21:00 100.0 F H 114 H 34 H 153/86 98 05/31/23 20:00 30 H 97 05/31/23 19:23 103.2 F H 137 H 24 198/116 83 L 05/31/23 19:00 175/119 85 L 05/31/23 18:00 145/90 05/31/23 17:35 100.7 F H 05/31/23 17:00 145/90 05/31/23 16:00 145/90 05/31/23 15:04 97.5 F L 79 18 145/90 99 05/31/23 13:00 120/93 05/31/23 12:34 97.4 F L 80 18 120/93 99 05/31/23 12:00 137/91 99 05/31/23 11:53 97.7 F 86 18 137/91 97 05/31/23 11:00 122/80 95 05/31/23 10:00 128/87 98 Intake and Output 05/31/23 06/01/23 06/01/23 22:59 06:59 14:59 Intake Total 579.167 Output Total 350 Balance 229.167 Intake: IV 520 Piperacillin-Tazobactam 3 100 .375 gm In Sodium Chloride 0.9% 100 ml @ 25 mls/hr IVPB Q8H [facility] Rx#: [id number] Sodium Chloride 0.9% 1, 420 000 ml @ 60 mls/hr IV . [id number] [facility] Rx#:[id number] Intake, IV Titration 59.167 Amount Diltiazem 125 mg In 59.167 Sodium Chloride 0.9% 100 ml @ 10 MG/HR 10 mls/hr IV .[id number] [facility] Rx#: [id number] Output: Urine 350 Other: Voiding Method External Catheter # Voids 1 Weight 91.6 kg Results CBC & Chem 7: 06/01/23 05:07 06/02/23 04:55 Labs: Abnormal Lab Results - Last 24 Hours (Table) 05/31/23 05/31/23 05/31/23 Range/Units 05:56 10:45 10:45 WBC (3.8-10.6) k/uL Hgb (13.0-17.5) gm/dL Hct (39.0-53.0) % RDW (11.5-15.5) % Plt Count (150-450) k/uL ABG pCO2 (35-45) mmHg ABG pO2 (83-108) mmHg ABG O2 Saturation (94-97) % Sodium (137-145) mmol/L Carbon Dioxide (22-30) mmol/L BUN (9-20) mg/dL Creatinine (0.66-1.25) mg/dL Glucose (74-99) mg/dL POC Glucose (mg/dL) 183 H (70-110) mg/dL Calcium (8.4-10.2) mg/dL Troponin I 0.091 H* (0.000-0.034) ng/mL Procalcitonin (0.02-0.09) ng/mL Urine Protein 2+ H (Negative) Urine Ketones Trace H (Negative) Urine Blood Moderate H (Negative) Ur Leukocyte Esterase Large H (Negative) Urine RBC 78 H (0-5) /hpf Urine WBC >182 H (0-5) /hpf Urine WBC Clumps Moderate H (None) /hpf Urine Bacteria Occasional H (None) /hpf Urine Mucus Rare H (None) /hpf 05/31/23 05/31/23 05/31/23 Range/Units 12:00 12:41 17:29 WBC (3.8-10.6) k/uL Hgb (13.0-17.5) gm/dL Hct (39.0-53.0) % RDW (11.5-15.5) % Plt Count (150-450) k/uL ABG pCO2 (35-45) mmHg ABG pO2 (83-108) mmHg ABG O2 Saturation (94-97) % Sodium (137-145) mmol/L Carbon Dioxide (22-30) mmol/L BUN (9-20) mg/dL Creatinine (0.66-1.25) mg/dL Glucose (74-99) mg/dL POC Glucose (mg/dL) 227 H 187 H (70-110) mg/dL Calcium (8.4-10.2) mg/dL Troponin I (0.000-0.034) ng/mL Procalcitonin 2.16 H (0.02-0.09) ng/mL Urine Protein (Negative) Urine Ketones (Negative) Urine Blood (Negative) Ur Leukocyte Esterase (Negative) Urine RBC (0-5) /hpf Urine WBC (0-5) /hpf Urine WBC Clumps (None) /hpf Urine Bacteria (None) /hpf Urine Mucus (None) /hpf 05/31/23 05/31/23 05/31/23 Range/Units 19:20 19:51 19:52 WBC (3.8-10.6) k/uL Hgb (13.0-17.5) gm/dL Hct (39.0-53.0) % RDW (11.5-15.5) % Plt Count (150-450) k/uL ABG pCO2 32 L (35-45) mmHg ABG pO2 122 H (83-108) mmHg ABG O2 Saturation 99.0 H (94-97) % Sodium (137-145) mmol/L Carbon Dioxide (22-30) mmol/L BUN (9-20) mg/dL Creatinine (0.66-1.25) mg/dL Glucose (74-99) mg/dL POC Glucose (mg/dL) 172 H 195 H (70-110) mg/dL Calcium (8.4-10.2) mg/dL Troponin I (0.000-0.034) ng/mL Procalcitonin (0.02-0.09) ng/mL Urine Protein (Negative) Urine Ketones (Negative) Urine Blood (Negative) Ur Leukocyte Esterase (Negative) Urine RBC (0-5) /hpf Urine WBC (0-5) /hpf Urine WBC Clumps (None) /hpf Urine Bacteria (None) /hpf Urine Mucus (None) /hpf 06/01/23 06/01/23 06/01/23 Range/Units 05:07 05:07 06:34 WBC 12.1 H (3.8-10.6) k/uL Hgb 11.8 L (13.0-17.5) gm/dL Hct 37.3 L (39.0-53.0) % RDW 16.0 H (11.5-15.5) % Plt Count 86 L (150-450) k/uL ABG pCO2 (35-45) mmHg ABG pO2 (83-108) mmHg ABG O2 Saturation (94-97) % Sodium 136 L (137-145) mmol/L Carbon Dioxide 20 L (22-30) mmol/L BUN 35 H (9-20) mg/dL Creatinine 1.69 H (0.66-1.25) mg/dL Glucose 171 H (74-99) mg/dL POC Glucose (mg/dL) 188 H (70-110) mg/dL Calcium 7.9 L (8.4-10.2) mg/dL Troponin I (0.000-0.034) ng/mL Procalcitonin (0.02-0.09) ng/mL Urine Protein (Negative) Urine Ketones (Negative) Urine Blood (Negative) Ur Leukocyte Esterase (Negative) Urine RBC (0-5) /hpf Urine WBC (0-5) /hpf Urine WBC Clumps (None) /hpf Urine Bacteria (None) /hpf Urine Mucus (None) /hpf Assessment and Plan Plan: 1patient with sepsis in this patient with fever and tachycardia elevated white count source likely right middle lobe aspiration pneumonia as the patient did have significant nausea and vomiting patient did have a positive urine with a question of possible polynephritis predisposing to these episodes of vomiting and contributing to this aspiration pneumonia 2-we will try to obtain a sputum for Gram stain culture check a CRP pr ocalcitonin 3-check ultrasound of kidney bladder area 4-continue with the Zosyn 3.375 g every 8 hours We will follow on clinical condition and cultures to further adjust medication if needed Thank you for this consultation we will follow the patient along with you Dictation was produced using [employer] dictation software. please excuse any grammatical, word or spelling errors. Time with Patient: Greater than 30
--- NOTE | 2023-06-01 23:33 | CONS ---
CONSULTATION CHIEF COMPLAINT: Atrial fibrillation. HISTORY OF PRESENT ILLNESS: Mr. Lobo is an 82-year-old gentleman with history of atrial fibrillation, diabetes, dyslipidemia, hypertension, chronic renal insufficiency, who initially presented to hospital with generalized weakness and fever and had elevated white cell count and a suspicion of right middle lobe pneumonia and urinary tract infection. While in the emergency room, he became hypotensive. He was transferred to ICU where he is at the moment. I have been consulted because of a history of atrial fibrillation and the fact that patient is not on anticoagulant. The patient follows with Dr. IDA Crabtree regularly. I spoke to patient with his next to him. I am told that the patient is not on anticoagulant because of orthostatic hypotension and recurrent falls. Given this history, he is not a candidate for long-term anticoagulation for stroke prevention in a patient with atrial fibrillation as the risk outweighed the benefit. At the time of my evaluation, the patient's blood pressure is somewhat poorly controlled. I am adjusting his medications. He denies chest pain or difficulty in breathing, currently on 2 L of nasal O2. PAST MEDICAL HISTORY: Significant for peripheral arterial disease, renal failure, status post renal transplant, type 2 diabetes, persistent atrial fibrillation, hypertension, dyslipidemia. MEDICATIONS: Medications at home include, 1. Cymbalta. 2. CellCept. 3. Crestor. 4. Seroquel. 5. Synthroid. 6. Flomax. 7. Metoprolol. 8. Protonix. 9. Aspirin. ALLERGIES: To morphine. FAMILY HISTORY: Negative for premature coronary artery disease. SOCIAL HISTORY: Negative for current smoking, EtOH abuse, or drug abuse. REVIEW OF SYSTEMS: 14 out of 14 review of systems has been performed. Pertinents are as documented. PHYSICAL EXAMINATION: GENERAL: On exam, he is comfortable at rest. VITAL SIGNS: Blood pressure is elevated at 150/100. NECK: There is no jugular venous distention. Chest: Reveals good air entry bilaterally. HEART: Reveals first and second heart sounds. Irregular rhythm. ABDOMEN: Soft. EXTREMITIES: Exam of extremities reveals mild edema. LABORATORY FINDINGS: Labs show a hemoglobin of 11.8, potassium is 4.6, creatinine is 1.69. ASSESSMENT AND PLAN: 1. Persistent atrial fibrillation with controlled ventricular rate. 2. Uncontrolled hypertension. I will increase the metoprolol dose to 50 b.i.d. if in spite of this his blood pressure is poorly controlled, consider amlodipine. As discussed in history of presenting illness, the patient is not a candidate for long- term anticoagulation for stroke prevention secondary to orthostatic hypotension and recurrent falls. MMODL / IJN: [id number] /
[2023-06-02] MEDS: SODIUM CHLORIDE 0.9% 1,000 ML IV SCH ×2 (03:47→09:14)
[2023-06-02] MEDS: PIPERACILLIN-TAZOBACTAM 3.375 GM in SODIUM CHLORIDE 0.9% 100 ML IVPB SCH ×3 (04:04→21:00)
[2023-06-02 05:45] LABS: African American GFR (CKD) 36 (>60 ml/min/1.73 sqM); Anion Gap 10 mmol/L; Blood Urea Nitrogen 37 mg/dL (9-20); Calcium 7.9 mg/dL (8.4-10.2); Carbon Dioxide 23 mmol/L (22-30); Chloride 106 mmol/L (98-107); Glucose 105 mg/dL (74-99); Magnesium 2.3 mg/dL (1.6-2.3); Non-African American GFR(CKD) 31 (>60 ml/min/1.73 sqM); Potassium 4.1 mmol/L (3.5-5.1); Sodium 139 mmol/L (137-145)
[2023-06-02] MEDS: LEVOTHYROXINE 75 MCG TAB PO SCH (06:23)
[2023-06-02] MEDS: INSULIN ASPART (NovoLOG) 100 UNIT/ML VIAL SQ SCH ×4 (07:05→21:08)
--- NOTE | 2023-06-02 08:02 | US ---
EXAMINATION TYPE: US kidneys/renal and bladder DATE OF EXAM: 06/02/2023 Exam done portable in ICU COMPARISON: US 2021 CLINICAL INDICATION: Male, 82 years old with history of uti and bacteremia; EXAM MEASUREMENTS: [place] Right Kidney: 8.2 x 3.7 x 4.2 cm [place] Left Kidney: 10.4 x 3.4 x 4.7 cm Transplant Kidney: 10.9 x 4.6 x 4.7cm [place] Right Kidney: atrophied, diminished cortex [place] Left Kidney: diminished cortex Transplant Kidney: located in left pelvis, 1.1cm cortical cyst Bladder: wnl Atrophy of both kidneys with increased cortical echogenicity and loss of cortical medullary different iation. No hydronephrosis or nephrolithiasis involving the [place] kidneys. Left pelvic transplant kid rudi identified without evidence of hydronephrosis. Simple cyst identified measuring 1.1 cm. No solid mass identified. Cortical medullary differentiation is well-maintained. Normal color flow to the left kidney. The urinary bladder is anechoic. No perinephric fluid collections identified. IMPRESSION: 1. No hydronephrosis or nephrolithiasis. 2. Left pelvic transplant kidney with a simple cyst. 3. Atrophy of both [place] kidneys.
[2023-06-02] MEDS: METOPROLOL TARTRATE 50 MG TAB PO SCH ×2 (09:34→21:10)
[2023-06-02] MEDS: MULTIVITAMINS, THERA 1 EACH TAB PO SCH (09:34)
[2023-06-02] MEDS: PANTOPRAZOLE 40 MG/10 ML VIAL IVP SCH ×2 (09:34→21:08)
[2023-06-02] MEDS: TACROLIMUS 1 MG CAP PO SCH ×2 (09:35→21:11)
[2023-06-02] MEDS: DULoxetine HCL 60 MG CAPSULE.DR PO SCH (09:35)
[2023-06-02] MEDS: predniSONE 10 MG TAB PO SCH (09:35)
[2023-06-02] MEDS: TAMSULOSIN 0.4 MG CAP.ER.24H PO SCH (09:35)
[2023-06-02] MEDS: ASPIRIN 81 MG PO SCH (09:35)
[2023-06-02] MEDS: SODIUM BICARBONATE TAB 650 MG TAB PO SCH (09:35)
[2023-06-02] MEDS: FINASTERIDE 5 MG TAB PO SCH (09:36)
[2023-06-02] MEDS: ELTROMBOPAG OLAMINE PO SCH (09:36)
[2023-06-02] MEDS: MYCOPHENOLATE 250 MG PO SCH ×2 (09:36→21:12)
--- NOTE | 2023-06-02 09:40 | CONS ---
CONSULTATION HISTORY OF PRESENT ILLNESS: This is an 82-year-old gentleman who is admitted to ICU with fever and right middle lobe pneumonia and has had atrial fibrillation. We were consulted to address the issue of anticoagulation. I saw him yesterday. The patient is not a candidate for long-term anticoagulation because of orthostatic hypotension and history of recurrent falls. At the time of my evaluation this morning, he is sleeping comfortably in bed, remains in atrial fibrillation with controlled ventricular rate. Blood pressure is 135/87. PHYSICAL EXAMINATION: GENERAL: Comfortable at rest. VITAL SIGNS: Stable. CHEST: Exam reveals good air entry bilaterally. HEART: Exam reveals first and second heart sounds. Regular rhythm. ABDOMEN: Soft. EXTREMITIES: Exam of extremities reveals 1+ edema. LABORATORY DATA: Labs show potassium of 4.1, BUN is 37, creatinine is 1.59. ASSESSMENT AND PLAN: 1. Persistent atrial fibrillation with controlled ventricular rate. 2. Pneumonia. 3. End-stage renal disease, status post kidney transplant. PLAN: No other cardiac workup at this time. The patient is not a candidate for long-term anticoagulation. This issue has already been addressed with the patient by Dr. Crabtree, who follows the patient on a regular basis. I will see him on an as-needed basis at this time. MMODL / IJN: [id number] /
[2023-06-02] MEDS: Mirabegron [Myrbetriq] 50 MG Tab.Er.24h PO SCH (09:41)
--- NOTE | 2023-06-02 10:36 | P.PN ---
Subjective Progress Note Date: 06/02/23 I am seeing this patient in new consultation today 06/01/2023 in the intensive care unit after he was transferred for acute respiratory distress and possible aspiration. Patient is a 82-year-old white male with past medical history significant for atrial fibrillation, diabetes mellitus, hyperlipidemia, h ypertension, pericardial effusion and prior pericardiocentesis, renal failure with previous renal transplant, prostate cancer, previous urinary tract infection, hypothyroidism. Patient presented to the emergency room yesterday morning complaining of nausea, vomiting, and generalized weakness. This has been ongoing for the last couple weeks. Denies any abdominal pain, hematemesis, constipation, diarrhea, or bloody diarrhea. He did have a fever with a T.max of 103.2 F. He does admit complaints of dysuria and urinary frequency with urgency. Denies any hematuria. Urinalysis was consistent with possible urinary tract infection. Patient's admission chest x-ray showed a right middle lobe infiltrate consistent with community acquired pneumonia. He was originally on 2 L/m nasal cannula when he came in to the ER. Patient was an ER hold for the selective care unit. Last night, he reportedly started to vomit, and then was found to be in some respiratory distress. An A-team was called. There were concerns for possible aspiration, he was temporarily placed on a 15 L nonrebreather. ABG showed a pO2 of 122, pCO2 32, pH of 7.44. He has been started on Zosyn for possible aspiration pneumonia. Also, patient was noted to be in atrial fibrillation with RVR at that time. He was started on a Cardizem infusion at 10 mg/hr. He was admitted to the intensive care unit for these reasons. CBC on arr ival shows WBC count of 13.7, hemoglobin 13.8, hematocrit 22.5, platelets 88,000. BMP on arrival showed a sodium 136, potassium 4, chloride 104, serum bicarb 18, BUN 32, creatinine 1.4, glucose 105. Lactic acid 2.7, down to 1.3. Troponins elevated at 0.059 and 0.09. Negative for influenza, RSV, COVID-19. Urine Legionella antigen negative. Currently, the patient is sitting up in bed, on 6 L per nasal cannula, in no acute respiratory distress. Denies any further nausea or vomiting. Abdomen does not appear acute. Heart rhythm appears to be normal sinus with a first degree AV block on the bedside monitor, will obtain an EKG to confirm. Cardizem could probably be stopped. Patient denies any chest pain, palpitations, lightheadedness or syncope. Blood pressures normotensive, not requiring any vasopressors. Normal saline infusing at 60 ML's per hour. Patient does have history of renal transplant. He did have a CT angiogram of the bilateral lower extremities. He is apparently having a lower extremity weakness and pain. Denies any significant intermittent claudication symptoms. CT angiogram showed occlusion of the distal superficial femoral artery with short segment reconstitution of the proximal popliteal artery which then occludes. There is no definitive flow within the bilateral anterior tibial, posterior tibial, and peroneal arteries which may be secondary to occlusion versus poor arterial bolus. Patient denies any significant lower extremity pain. Bilateral feet are warm with diminished doppler pedal pulses. Patient will be monitored in the intensive care unit at least overnight. The patient is seen today 06/02/2023 in follow-up in the intensive care unit. Hanane jean is currently awake and alert in no acute distress. Resting comfortably in bed. Maintaining O2 saturations in the 90s on 2 L/m per nasal cannula. He is afebrile. Hemodynamically stable. Ultrasound of the kidneys and bladder revealed no hydronephrosis or nephrolithiasis. Left pelvic transplant kidney with a simple cyst. Atrophy of both [place] kidneys. Blood cultures are pending. Sodium 139. Potassium 4.1. Bicarb 23. BUN 37. Creatinine 1.99. Glucose 105. He remains on Zosyn. Heparin for DVT prophylaxis. Objective - Vital Signs Vital signs: Vital Signs Temp 98.9 F 06/02/23 08:00 Pulse 84 06/02/23 08:00 Resp 10 L 06/02/23 08:00 BP 128/77 06/02/23 08:00 Pulse Ox 91 L 06/02/23 08:18 FiO2 Intake & Output 06/01/23 06/02/23 06/02/23 18:59 06:59 18:59 Intake Total 1125 150 Output Total 300 1300 Balance 825 -1150 Weight 91.6 kg Intake: IV 1125 150 Magnesium Sulfate-D5w Pmx 200 1 gm In Dextrose/Water 1 100ml.bag @ 100 mls/hr IVPB Q1H [facility] Rx#: [id number] Piperacillin-Tazobactam 3 100 .375 gm In Sodium Chloride 0.9% 100 ml @ 25 mls/hr IVPB Q8H [place] Rx#: [id number] Sodium Chloride 0.9% 1, 825 150 000 ml @ 75 mls/hr IV . [id number] [facility] Rx#:[id number] Output: Urine 300 1300 Other: Voiding Method Bedside Commode Bedside Commode Bedside Commode Urinal - Exam GENERAL EXAM: Alert, pleasant 82-year-old male patient, on 2 L nasal cannula, comfortable in no apparent distress. HEAD: Normocephalic. EYES: Normal reaction of pupils, equal size. NOSE: Clear with pink turbinates. THROAT: No erythema or exudates. NECK: No masses, no JVD. CHEST: No chest wall deformity. LUNGS: Equal air entry with no crackles, wheeze, rhonchi or dullness. CVS: S1 and S2 normal with no audible murmur, regular rhythm. ABDOMEN: No hepatosplenomegaly, normal bowel sounds, no guarding or rigidity. SPINE: No scoliosis or deformity SKIN: No rashes CENTRAL NERVOUS SYSTEM: No focal deficits, tone is normal in all 4 extremities. EXTREMITIES: There is no peripheral edema. No clubbing, no cyanosis. Peripheral pulses are intact. - Labs CBC & Chem 7: 06/01/23 05:07 06/02/23 04:55 Labs: Abnormal Lab Results - Last 24 Hours (Table) 06/01/23 06/01/23 06/01/23 Range/Units 11:58 11:59 16:05 BUN (9-20) mg/dL Creatinine (0.66-1.25) mg/dL Glucose (74-99) mg/dL POC Glucose (mg/dL) 263 H 257 H 380 H (70-110) mg/dL Calcium (8.4-10.2) mg/dL 06/02/23 Range/Units 04:55 BUN 37 H (9-20) mg/dL Creatinine 1.99 H (0.66-1.25) mg/dL Glucose 105 H (74-99) mg/dL POC Glucose (mg/dL) (70-110) mg/dL Calcium 7.9 L (8.4-10.2) mg/dL Microbiology - Last 24 Hours (Table) 05/31/23 09:18 Blood Culture - Preliminary Blood 05/31/23 09:18 Blood Culture - Preliminary Blood Assessment and Plan Assessment: Acute hypoxemic respiratory failure, possibly related aspiration pneumonia. Chest x-ray shows a right middle lobe infiltrate consistent with pneumonia. Negative for influenza, RSV, COVID-19. Urine Legionella antigen negative. Suspected urinary tract infection Leukocytosis, secondary to above Metabolic anion gap acidosis Atrial fibrillation with rapid ventricular rate, currently in normal sinus rhythm with first-degree AV block Elevated troponins, likely related supplies/demand mismatch and hypoxia Nausea and vomiting, improved Thrombocytopenia, chronic History of renal transplant, currently on Prograf, CellCept, and prednisone Chronic kidney disease stage III Diabetes mellitus, insulin independent, complicated with diabetic neuropathy History of prostate cancer Peripheral arterial disease Hypothyroidism Obesity with BMI of 30.4 kg/m Plan: The patient was seen and evaluated Medications and labs reviewed Currently stable on 2 L nasal cannula Remains on Zosyn Heparin for DVT prophylaxis Transfer to the regular medical floor We'll continue to follow I have personally seen and examined the patient, performed the documentation and the assessment and plan as written. Number of minutes spent on the visit: 10.
--- NOTE | 2023-06-02 10:49 | P.PN ---
Subjective Patient is seen for follow-up for acute kidney injury and top of chronic kidney disease. History of donor renal transplant. IV fluids discontinued this morning No significant complaints of shortness of breath Patient has not been eating or drinking much. 24 hour urine output at 1.6 L. Blood pressure is not low. Serum creatinine increased to 1.9 mg/dL today. Objective - Vital Signs Vital signs: Vital Signs Temp 98.9 F 06/02/23 08:00 Pulse 84 06/02/23 08:00 Resp 10 L 06/02/23 08:00 BP 128/77 06/02/23 08:00 Pulse Ox 91 L 06/02/23 08:18 FiO2 Intake & Output 06/01/23 06/02/23 06/02/23 18:59 06:59 18:59 Intake Total 1125 150 Output Total 300 1300 Balance 825 -1150 Weight 91.6 kg Intake: IV 1125 150 Magnesium Sulfate-D5w Pmx 200 1 gm In Dextrose/Water 1 100ml.bag @ 100 mls/hr IVPB Q1H [place] Rx#: [id number] Piperacillin-Tazobactam 3 100 .375 gm In Sodium Chloride 0.9% 100 ml @ 25 mls/hr IVPB Q8H [place] Rx#: [id number] Sodium Chloride 0.9% 1, 825 150 000 ml @ 75 mls/hr IV . [id number] [place] Rx#:[id number] Output: Urine 300 1300 Other: Voiding Method Bedside Commode Bedside Commode Bedside Commode Urinal - Exam Patient is sleeping but arousable, comfortable. No acute distress Examination of the heart S1 and S2 Examination of the lungs bilateral breath sounds are heard Abdomen is soft nontender, renal allograft left lower quadrant, nontender Examination of lower extremities shows no evidence of edema JANITOR exam grossly intact - Labs CBC & Chem 7: 06/01/23 05:07 06/02/23 04:55 Labs: Abnormal Lab Results - Last 24 Hours (Table) 06/01/23 06/01/23 06/01/23 Range/Units 11:58 11:59 16:05 BUN (9-20) mg/dL Creatinine (0.66-1.25) mg/dL Glucose (74-99) mg/dL POC Glucose (mg/dL) 263 H 257 H 380 H (70-110) mg/dL Calcium (8.4-10.2) mg/dL 06/02/23 Range/Units 04:55 BUN 37 H (9-20) mg/dL Creatinine 1.99 H (0.66-1.25) mg/dL Glucose 105 H (74-99) mg/dL POC Glucose (mg/dL) (70-110) mg/dL Calcium 7.9 L (8.4-10.2) mg/dL Microbiology - Last 24 Hours (Table) 05/31/23 09:18 Blood Culture - Preliminary Blood 05/31/23 09:18 Blood Culture - Preliminary Blood Assessment and Plan Assessment: 1. Acute kidney injury most likely ATN, currently nonoliguric. Rule out urine retention. 2. Chronic kidney disease NKF stage IIIa with baseline creatinine around 1.2- 1.4 mg/dL secondary to chronic allograft nephropathy 3. Status post donor kidney transplant in 2002 maintained on CellCept, prednisone and Prograf 4. Metabolic acidosis maintained on oral sodium bicarb 5. Pneumonia possible aspiration pneumonia maintained on antibiotics 6. Acute hypoxic respiratory failure 7. Pyuria rule out UTI in the renal transplant Plan: Check chest x-ray Check post void residual, rule out urine retention Continue prednisone CellCept and tacrolimus. Check tacrolimus level in a.m. Continue with antibiotics Check urine culture Repeat labs in a.m.
[2023-06-02] MEDS: SOLIQUA SQ SCH (12:32)
--- NOTE | 2023-06-02 14:05 | XR ---
EXAMINATION TYPE: XR chest 1V portable DATE OF EXAM: 06/02/2023 1:57 PM COMPARISON: Chest radiographs from 06/01/2023 TECHNIQUE: XR chest 1V portable Portable AP radiograph of the chest. CLINICAL INDICATION:Male, 82 years old with history of pna; FINDINGS: Lungs/Pleura: No pleural effusion or pneumothorax. Decreased left basilar patchy airspace opacity. Re demonstration of elevation of the right hemidiaphragm. Pulmonary vascularity: Unremarkable. Heart/mediastinum: Cardiomediastinal silhouette is enlarged and stable. Atherosclerotic calcificatio ns are seen in the aorta. Musculoskeletal: No acute osseous pathology. IMPRESSION: Decreased left basilar patchy airspace opacity.
--- NOTE | 2023-06-02 15:26 | P.PN ---
Subjective Progress Note Date: 06/02/23 Principal diagnosis: Aspiration pneumonia Patient is a 82-year-old male with a past medical history significant for diabetes mellitus hypertension hyperlipidemia atrial fibrillation patient presenting to the hospital with chief complaints of nausea vomiting and weakness , patient did have worsening of his respiratory status requiring admission to the ICU and was consulted for possible aspiration pneumonitis. On today's evaluation that is 06/02/2023 patient fever pattern has improved the patient is afebrile this morning, the patient is sleepy and lethargic and did not answer any question patient is hemodynamically stable not on any pressor support no vomiting or diarrhea reported by the nursing staff. Patient did have a creatinine 1.919 and no CBC was done today, blood cultures are currently pending, ultrasound Was Negative for Hydronephrosis Left Pelvic Transplant Kidney with a Simple Cyst Objective - Vital Signs Vital signs: Vital Signs Temp 98.9 F 06/02/23 08:00 Pulse 84 06/02/23 08:00 Resp 10 L 06/02/23 08:00 BP 128/77 06/02/23 08:00 Pulse Ox 91 L 06/02/23 08:18 FiO2 Intake & Output 06/01/23 06/02/23 06/02/23 18:59 06:59 18:59 Intake Total 1125 150 Output Total 300 1300 Balance 825 -1150 Weight 91.6 kg Intake: IV 1125 150 Magnesium Sulfate-D5w Pmx 200 1 gm In Dextrose/Water 1 100ml.bag @ 100 mls/hr IVPB Q1H [place] Rx#: [id number] Piperacillin-Tazobactam 3 100 .375 gm In Sodium Chloride 0.9% 100 ml @ 25 mls/hr IVPB Q8H [place] Rx#: [id number] Sodium Chloride 0.9% 1, 825 150 000 ml @ 75 mls/hr IV . [id number] [place] Rx#:[id number] Output: Urine 300 1300 Other: Voiding Method Bedside Commode Bedside Commode Bedside Commode Urinal - Exam GENERAL DESCRIPTION: An elderly male lying in bed in no distress RESPIRATORY SYSTEM: Unlabored breathing , decreased breath sounds at the base HEART: S1 S2 regular rate and rhythm , ABDOMEN: Soft , no tenderness EXTREMITIES: No edema feet - Labs CBC & Chem 7: 06/01/23 05:07 06/02/23 04:55 Labs: Abnormal Lab Results - Last 24 Hours (Table) 06/01/23 06/01/23 06/01/23 Range/Units 11:58 11:59 16:05 BUN (9-20) mg/dL Creatinine (0.66-1.25) mg/dL Glucose (74-99) mg/dL POC Glucose (mg/dL) 263 H 257 H 380 H (70-110) mg/dL Calcium (8.4-10.2) mg/dL 06/02/23 Range/Units 04:55 BUN 37 H (9-20) mg/dL Creatinine 1.99 H (0.66-1.25) mg/dL Glucose 105 H (74-99) mg/dL POC Glucose (mg/dL) (70-110) mg/dL Calcium 7.9 L (8.4-10.2) mg/dL Microbiology - Last 24 Hours (Table) 05/31/23 09:18 Blood Culture - Preliminary Blood 05/31/23 09:18 Blood Culture - Preliminary Blood Assessment and Plan (1) Pneumonia Current Visit: Yes Status: Acute Code(s): J18.9 - PNEUMONIA, UNSPECIFIED ORGANISM SNOMED Code(s): 450080105 Plan: 1patient with sepsis in this patient with fever and tachycardia elevated white count source likely right middle lobe aspiration pneumonia as the patient did have significant nausea and vomiting patient did have a positive urine with a question of possible polynephritis predisposing to these episodes of vomiting and contributing to this aspiration pneumonia 2-we will try to obtain a sputum for Gram stain culture patient did have elevated procalcitonin 3- ultrasound of kidney bladder did not show any hydronephrosis or nephrolithiasis with a simple cyst in the transplant kidney 4-patient to continue with the Zosyn 3.375 g every 8 hours while waiting for the cultures to finalize Dictation was produced using [employer] dictation software. please excuse any gramm atical, word or spelling errors. Time with Patient: Less than 30
--- NOTE | 2023-06-02 15:40 | P.PN ---
Subjective Progress Note Date: 06/02/23 82-year-old male came in with the complaints of not feeling well and generalized weakness. Patient is also unable to urinate. Patient had a low-grade fever which is only 99.5 and found to have leukocytosis upon further workup patient chest x-ray is suspicious for right middle lobe pneumonia when cautioned about UTI symptoms patient states he has some pain during urination but not much urine analysis and urine cultures are being obtained blood cultures were obtained patient is being admitted for treatment of pneumonia. Patient is not a great historian patient denied any significant cough with sputum production. Patient also has cold clammy limbs because of which she CT angios of the bilateral lower x-rays was obtained which showed occlusion of the distal superficial femoral artery and the head occlusion beyond the popliteal artery cannot be assessed as there may be lack of contrast. Patient has a renal transplant and is on no suppressive therapy at this time. Patient doesn't have any symptoms of claudication but does have cold clammy limbs and barely appreciable pedal pulses. Objective - Vital Signs Vital signs: Vital Signs Temp 98.9 F 06/02/23 08:00 Pulse 84 06/02/23 08:00 Resp 10 L 06/02/23 08:00 BP 128/77 06/02/23 08:00 Pulse Ox 91 L 06/02/23 08:18 FiO2 Intake & Output 06/01/23 06/02/23 06/02/23 18:59 06:59 18:59 Intake Total 1125 150 Output Total 300 1300 Balance 825 -1150 Weight 91.6 kg Intake: IV 1125 150 Magnesium Sulfate-D5w Pmx 200 1 gm In Dextrose/Water 1 100ml.bag @ 100 mls/hr IVPB Q1H [place] Rx#: [id number] Piperacillin-Tazobactam 3 100 .375 gm In Sodium Chloride 0.9% 100 ml @ 25 mls/hr IVPB Q8H [place] Rx#: [id number] Sodium Chloride 0.9% 1, 825 150 000 ml @ 75 mls/hr IV . [id number] [place] Rx#:[id number] Output: Urine 300 1300 Other: Voiding Method Bedside Commode Bedside Commode Bedside Commode Urinal - Exam GENERAL: The patient is alert and oriented x3, not in any acute distress. Well developed, well nourished. On 6 to dysfunction not in respiratory distress HEENT: Pupils are round and equally reacting to light. EOMI. No scleral icterus. No conjunctival pallor. Normocephalic, atraumatic. No pharyngeal erythema. No thyromegaly. CARDIOVASCULAR: S1 and S2 present. No murmurs, rubs, or gallops. PULMONARY: Chest is clear to auscultation, no wheezing or crackles. ABDOMEN: Soft, nontender, nondistended, normoactive bowel sounds. No palpable organomegaly. MUSCULOSKELETAL: No joint swelling or deformity. EXTREMITIES: No cyanosis, clubbing, or pedal edema. Patient does have the barely appreciable bilateral pedal pulses cold clammy limbs NEUROLOGICAL: Gross neurological examination did not reveal any focal deficits. SKIN: No rashes. - Labs CBC & Chem 7: 06/01/23 05:07 06/02/23 04:55 Labs: Abnormal Lab Results - Last 24 Hours (Table) 06/01/23 06/02/23 Range/Units 16:05 04:55 BUN 37 H (9-20) mg/dL Creatinine 1.99 H (0.66-1.25) mg/dL Glucose 105 H (74-99) mg/dL POC Glucose (mg/dL) 380 H (70-110) mg/dL Calcium 7.9 L (8.4-10.2) mg/dL Microbiology - Last 24 Hours (Table) 05/31/23 09:18 Blood Culture - Preliminary Blood 05/31/23 09:18 Blood Culture - Preliminary Blood Assessment and Plan Assessment: -Sepsis possibly secondary to pneumonia , patient aspirated as today because of which are anteverted was changed to Zosyn from a Rocephin and is being continued on azithromycin, urinary Legionella antigen is negative patient has elevated pro calcitonin up to 2.5 -Generalized weakness secondary to age and may be pneumonia, physical therapy and occupational therapy evaluation -Peripheral vascular disease patient doesn't have a limb threatening ischemia , patient was evaluated by vascular surgery can follow-up as an outpatient -Renal transplant -Acute renal failure secondary to sepsis and acute tumor necrosis can you with IV fluids and nephrology was consulted -Type 2 diabetes mellitus patient will be resumed on home dose of long-acting insulin along with sliding scale insulin. -Proximal atrial fibrillation rapid atrial rate last night because of aspiration and sepsis which improved at this time her Toprol dose will be increased to 25 mg twice a day, cardiology was consulted to evaluate for anticoagulation. Patient was a taken of anti-correlation with PCP as he was having orthostatic hypotension and falls as an outpatient although this doesn't appear to be a problem. Patient has mild thrombocytopenia but this is not a current medication as his platelets is above 50,000 patient denied any previous GI bleeds -Thrombocytopenia chronic further evaluation as an outpatient #5 hyperlipidemia Hypertension -hyperthyroidism DVT prophylaxis: Subcutaneous heparin; remains on hold for thrombocytopenia; we will repeat CBC today and resume heparin if platelet count remains stable
[2023-06-02] MEDS: HEPARIN SODIUM,PORCINE 5,000 UNIT/ML 1 ML VIAL SQ SCH ×2 (15:44→20:05)
[2023-06-02 16:43] LABS: Glucose,Whole Blood 276 mg/dL (70-110)
[2023-06-02 20:36] LABS: Glucose,Whole Blood 270 mg/dL (70-110)
[2023-06-02] MEDS: GABAPENTIN 300 MG CAP PO SCH (21:10)
[2023-06-02] MEDS: ATORVASTATIN 10 MG TAB PO SCH (21:10)
[2023-06-02] MEDS: QUEtiapine 100 MG TAB PO SCH (21:11)
[2023-06-02] MEDS: VIT A,C & E-LUTEIN-MINERALS 1 EACH TAB PO SCH (21:11)
[2023-06-03] MEDS: PIPERACILLIN-TAZOBACTAM 3.375 GM in SODIUM CHLORIDE 0.9% 100 ML IVPB SCH ×3 (04:06→20:32)
[2023-06-03 06:09] LABS: Glucose,Whole Blood 181 mg/dL (70-110)
[2023-06-03] MEDS: LEVOTHYROXINE 75 MCG TAB PO SCH (06:34)
[2023-06-03] MEDS: INSULIN ASPART (NovoLOG) 100 UNIT/ML VIAL SQ SCH ×4 (06:34→20:31)
[2023-06-03] MEDS: FINASTERIDE 5 MG TAB PO SCH (07:55)
[2023-06-03] MEDS: HEPARIN SODIUM,PORCINE 5,000 UNIT/ML 1 ML VIAL SQ SCH ×2 (07:55→20:31)
[2023-06-03] MEDS: ASPIRIN 81 MG PO SCH (07:55)
[2023-06-03] MEDS: DULoxetine HCL 60 MG CAPSULE.DR PO SCH (07:55)
[2023-06-03] MEDS: METOPROLOL TARTRATE 50 MG TAB PO SCH ×2 (07:56→20:30)
[2023-06-03] MEDS: PANTOPRAZOLE 40 MG/10 ML VIAL IVP SCH ×2 (07:57→20:31)
[2023-06-03] MEDS: MYCOPHENOLATE 250 MG PO SCH ×2 (07:57→20:30)
[2023-06-03] MEDS: SODIUM BICARBONATE TAB 650 MG TAB PO SCH (07:58)
[2023-06-03] MEDS: predniSONE 10 MG TAB PO SCH (07:58)
[2023-06-03] MEDS: TAMSULOSIN 0.4 MG CAP.ER.24H PO SCH (07:58)
[2023-06-03] MEDS: ELTROMBOPAG OLAMINE PO SCH (08:00)
[2023-06-03] MEDS: SOLIQUA SQ SCH (08:01)
[2023-06-03] MEDS: TACROLIMUS 1 MG CAP PO SCH ×2 (08:04→20:30)
[2023-06-03] MEDS: MULTIVITAMINS, THERA 1 EACH TAB PO SCH (08:04)
[2023-06-03] MEDS: Mirabegron [Myrbetriq] 50 MG Tab.Er.24h PO SCH (08:04)
--- NOTE | 2023-06-03 11:07 | P.PN ---
Subjective Progress Note Date: 06/03/23 I am seeing this patient in new consultation today 06/01/2023 in the intensive care unit after he was transferred for acute respiratory distress and possible aspiration. Patient is a 82-year-old white male with past medical history significant for atrial fibrillation, diabetes mellitus, hyperlipidemia, h ypertension, pericardial effusion and prior pericardiocentesis, renal failure with previous renal transplant, prostate cancer, previous urinary tract infection, hypothyroidism. Patient presented to the emergency room yesterday morning complaining of nausea, vomiting, and generalized weakness. This has been ongoing for the last couple weeks. Denies any abdominal pain, hematemesis, constipation, diarrhea, or bloody diarrhea. He did have a fever with a T.max of 103.2 F. He does admit complaints of dysuria and urinary frequency with urgency. Denies any hematuria. Urinalysis was consistent with possible urinary tract infection. Patient's admission chest x-ray showed a right middle lobe infiltrate consistent with community acquired pneumonia. He was originally on 2 L/m nasal cannula when he came in to the ER. Patient was an ER hold for the selective care unit. Last night, he reportedly started to vomit, and then was found to be in some respiratory distress. An A-team was called. There were concerns for possible aspiration, he was temporarily placed on a 15 L nonrebreather. ABG showed a pO2 of 122, pCO2 32, pH of 7.44. He has been started on Zosyn for possible aspiration pneumonia. Also, patient was noted to be in atrial fibrillation with RVR at that time. He was started on a Cardizem infusion at 10 mg/hr. He was admitted to the intensive care unit for these reasons. CBC on arr ival shows WBC count of 13.7, hemoglobin 13.8, hematocrit 22.5, platelets 88,000. BMP on arrival showed a sodium 136, potassium 4, chloride 104, serum bicarb 18, BUN 32, creatinine 1.4, glucose 105. Lactic acid 2.7, down to 1.3. Troponins elevated at 0.059 and 0.09. Negative for influenza, RSV, COVID-19. Urine Legionella antigen negative. Currently, the patient is sitting up in bed, on 6 L per nasal cannula, in no acute respiratory distress. Denies any further nausea or vomiting. Abdomen does not appear acute. Heart rhythm appears to be normal sinus with a first degree AV block on the bedside monitor, will obtain an EKG to confirm. Cardizem could probably be stopped. Patient denies any chest pain, palpitations, lightheadedness or syncope. Blood pressures normotensive, not requiring any vasopressors. Normal saline infusing at 60 ML's per hour. Patient does have history of renal transplant. He did have a CT angiogram of the bilateral lower extremities. He is apparently having a lower extremity weakness and pain. Denies any significant intermittent claudication symptoms. CT angiogram showed occlusion of the distal superficial femoral artery with short segment reconstitution of the proximal popliteal artery which then occludes. There is no definitive flow within the bilateral anterior tibial, posterior tibial, and peroneal arteries which may be secondary to occlusion versus poor arterial bolus. Patient denies any significant lower extremity pain. Bilateral feet are warm with diminished doppler pedal pulses. Patient will be monitored in the intensive care unit at least overnight. The patient is seen today 06/02/2023 in follow-up in the intensive care unit. Hanane jean is currently awake and alert in no acute distress. Resting comfortably in bed. Maintaining O2 saturations in the 90s on 2 L/m per nasal cannula. He is afebrile. Hemodynamically stable. Ultrasound of the kidneys and bladder revealed no hydronephrosis or nephrolithiasis. Left pelvic transplant kidney with a simple cyst. Atrophy of both eyak kidneys. Blood cultures are pending. Sodium 139. Potassium 4.1. Bicarb 23. BUN 37. Creatinine 1.99. Glucose 105. He remains on Zosyn. Heparin for DVT prophylaxis. The patient is seen today 06/03/2023 in follow-up on the regular medical floor. He is currently sitting up in bed. Awake and alert in no acute distress. He is breathing easier today compared to yesterday. Feeling a bit stronger. Maintaining O2 saturations in the mid 90s on 2 L/m per nasal cannula. He is afebrile. Follow-up chest x-ray revealed decreasing left basilar patchy airspace opacity. Blood sugar 181. He is continued on Zosyn. Heparin for DVT prophylaxis. Objective - Vital Signs Vital signs: Vital Signs Temp 97.6 F 06/03/23 07:11 Pulse 69 06/03/23 07:11 Resp 18 06/03/23 07:11 BP 180/107 06/03/23 07:11 Pulse Ox 95 06/03/23 07:11 FiO2 Intake & Output 06/02/23 06/03/23 06/03/23 18:59 06:59 18:59 Output Total 450 Balance -450 Output: Urine 450 Straight 450 Other: Voiding Method Bedside Commode Incontinent Urinal # Bowel Movements 1 2 - Exam GENERAL EXAM: Awake, alert 82-year-old male patient, sitting up in bed, on 2 L nasal cannula, comfortable in no apparent distress. HEAD: Normocephalic. EYES: Normal reaction of pupils, equal size. NOSE: Clear with pink turbinates. THROAT: No erythema or exudates. NECK: No masses, no JVD. CHEST: No chest wall deformity. LUNGS: Equal air entry with faint crackles in the left base. CVS: S1 and S2 normal with no audible murmur, regular rhythm. ABDOMEN: No hepatosplenomegaly, normal bowel sounds, no guarding or rigidity. SPINE: No scoliosis or deformity SKIN: No rashes CENTRAL NERVOUS SYSTEM: No focal deficits, tone is normal in all 4 extremities. EXTREMITIES: There is no peripheral edema. No clubbing, no cyanosis. Peripheral pulses are intact. - Labs CBC & Chem 7: 06/01/23 05:07 06/02/23 04:55 Labs: Abnormal Lab Results - Last 24 Hours (Table) 06/02/23 06/02/23 06/03/23 Range/Units 16:42 20:28 06:07 POC Glucose (mg/dL) 276 H 270 H 181 H (70-110) mg/dL Microbiology - Last 24 Hours (Table) 06/01/23 13:10 Urine Culture - Final Urine,Clean Catch 05/31/23 09:18 Blood Culture - Preliminary Blood 05/31/23 09:18 Blood Culture - Preliminary Blood Assessment and Plan Assessment: Acute hypoxemic respiratory failure, possibly related aspiration pneumonia. Follow-up chest x-ray showing improvement. Negative for influenza, RSV, COVID-19. Urine Legionella antigen negative. Suspected urinary tract infection Leukocytosis, secondary to above Metabolic anion gap acidosis Atrial fibrillation with rapid ventricular rate, currently in normal sinus rhythm with first-degree AV block Elevated troponins, likely related supplies/demand mismatch and hypoxia Nausea and vomiting, improved Thrombocytopenia, chronic History of renal transplant, currently on Prograf, CellCept, and prednisone Chronic kidney disease stage III Diabetes mellitus, insulin independent, complicated with diabetic neuropathy History of prostate cancer Peripheral arterial disease Hypothyroidism Obesity with BMI of 30.4 kg/m Plan: The patient was seen and evaluated Chest x-ray, medications and labs reviewed Currently stable on 2 L nasal cannula Remains on Zosyn Heparin for DVT prophylaxis Titrate down the FiO2 as tolerated Increase his activity as tolerated We'll continue to follow I have personally seen and examined the patient, performed the documentation and the assessment and plan as written. Number of minutes spent on the visit: 10.
--- NOTE | 2023-06-03 11:25 | P.PN ---
Subjective Patient is seen for follow-up for acute kidney injury and top of chronic kidney disease. History of donor renal transplant. No significant complaints of shortness of breath Serum creatinine was elevated yesterday at 1.9 mg/dL Patient is noted to have urine retention. Straight cath was done this morning 10/25/1949 ML of urine. Objective - Vital Signs Vital signs: Vital Signs Temp 97.6 F 06/03/23 07:11 Pulse 69 06/03/23 07:11 Resp 18 06/03/23 07:11 BP 180/107 06/03/23 07:11 Pulse Ox 95 06/03/23 07:11 FiO2 Intake & Output 06/02/23 06/03/23 06/03/23 18:59 06:59 18:59 Output Total 450 Balance -450 Output: Urine 450 Straight 450 Other: Voiding Method Bedside Commode Incontinent Urinal # Bowel Movements 1 2 - Exam Patient is sleeping but arousable, comfortable. No acute distress Examination of the heart S1 and S2 Examination of the lungs bilateral breath sounds are heard Abdomen is soft nontender, renal allograft left lower quadrant, nontender Examination of lower extremities shows no evidence of edema [employer] exam grossly intact - Labs CBC & Chem 7: 06/01/23 05:07 06/02/23 04:55 Labs: Abnormal Lab Results - Last 24 Hours (Table) 06/02/23 06/02/23 06/03/23 Range/Units 16:42 20:28 06:07 POC Glucose (mg/dL) 276 H 270 H 181 H (70-110) mg/dL Microbiology - Last 24 Hours (Table) 06/01/23 13:10 Urine Culture - Final Urine,Clean Catch 05/31/23 09:18 Blood Culture - Preliminary Blood 05/31/23 09:18 Blood Culture - Preliminary Blood Assessment and Plan Assessment: 1. Acute kidney injury most likely ATN, currently nonoliguric. Renal function had improved on initial admission but worsened again recently most likely from urine retention. 2. Chronic kidney disease NKF stage IIIa with baseline creatinine around 1.2- 1.4 mg/dL secondary to chronic allograft nephropathy 3. Status post donor kidney transplant in 2002 maintained on CellCept, prednisone and Prograf 4. Metabolic acidosis maintained on oral sodium bicarb 5. Pneumonia possible aspiration pneumonia maintained on antibiotics 6. Acute hypoxic respiratory failure 7. Pyuria rule out UTI in the renal transplant Plan: Continue to monitor for post void residuals. If oral intake remains low patient will be started on IV fluids. Continue prednisone CellCept and tacrolimus. Check tacrolimus level in a.m. Continue with antibiotics Repeat labs in a.m.
--- NOTE | 2023-06-03 11:31 | P.PN ---
Subjective Progress Note Date: 06/03/23 Principal diagnosis: Aspiration pneumonia Patient is a 82-year-old male with a past medical history significant for diabetes mellitus hypertension hyperlipidemia atrial fibrillation patient presenting to the hospital with chief complaints of nausea vomiting and weakness , patient did have worsening of his respiratory status requiring admission to the ICU and was consulted for possible aspiration pneumonitis. 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 Objective - Vital Signs Vital signs: Vital Signs Temp 97.6 F 06/03/23 07:11 Pulse 69 06/03/23 07:11 Resp 18 06/03/23 07:11 BP 180/107 06/03/23 07:11 Pulse Ox 95 06/03/23 07:11 FiO2 Intake & Output 06/02/23 06/03/23 06/03/23 18:59 06:59 18:59 Output Total 450 Balance -450 Output: Urine 450 Straight 450 Other: Voiding Method Bedside Commode Incontinent Urinal # Bowel Movements 1 2 - Exam GENERAL DESCRIPTION: An elderly male lying in bed in no distress RESPIRATORY SYSTEM: Unlabored breathing , decreased breath sounds at the base HEART: S1 S2 regular rate and rhythm , ABDOMEN: Soft , no tenderness EXTREMITIES: No edema feet - Labs CBC & Chem 7: 06/01/23 05:07 06/02/23 04:55 Labs: Abnormal Lab Results - Last 24 Hours (Table) 06/02/23 06/02/23 06/03/23 Range/Units 16:42 20:28 06:07 POC Glucose (mg/dL) 276 H 270 H 181 H (70-110) mg/dL Microbiology - Last 24 Hours (Table) 06/01/23 13:10 Urine Culture - Final Urine,Clean Catch 05/31/23 09:18 Blood Culture - Preliminary Blood 05/31/23 09:18 Blood Culture - Preliminary Blood Assessment and Plan (1) Pneumonia Current Visit: Yes Status: Acute Code(s): J18.9 - PNEUMONIA, UNSPECIFIED ORGANISM SNOMED Code(s): 738748086 Plan: 1patient with sepsis in this patient with fever and tachycardia elevated white count source likely right middle lobe aspiration pneumonia as the patient did have significant nausea and vomiting patient did have a positive urine with a question of possible polynephritis predisposing to these episodes of vomiting and contributing to this aspiration pneumonia 2-we will try to obtain a sputum for Gram stain culture patient did have elevated procalcitonin 3- ultrasound of kidney bladder did not show any hydronephrosis or nephrolithiasis with a simple cyst in the transplant kidney 4-patient seemed to have subsequent clinical improvement and has been moved out of the ICU, patient to continue with the Zosyn 3.375 g every 8 hours while waiting for the cultures to finalize Dictation was produced using [employer] dictation software. please excuse any grammatical, word or spelling errors. Time with Patient: Less than 30
[2023-06-03 11:44] LABS: Glucose,Whole Blood 140 mg/dL (70-110)
[2023-06-03 16:37] LABS: Glucose,Whole Blood 267 mg/dL (70-110)
--- NOTE | 2023-06-03 17:20 | P.PN ---
Subjective Progress Note Date: 06/03/23 82-year-old male came in with the complaints of not feeling well and generalized weakness. Patient is also unable to urinate. Patient had a low-grade fever which is only 99.5 and found to have leukocytosis upon further workup patient chest x-ray is suspicious for right middle lobe pneumonia when cautioned about UTI symptoms patient states he has some pain during urination but not much urine analysis and urine cultures are being obtained blood cultures were obtained patient is being admitted for treatment of pneumonia. Patient is not a great historian patient denied any significant cough with sputum production. Patient also has cold clammy limbs because of which she CT angios of the bilateral lower x-rays was obtained which showed occlusion of the distal superficial femoral artery and the head occlusion beyond the popliteal artery cannot be assessed as there may be lack of contrast. Patient has a renal transplant and is on no suppressive therapy at this time. Patient doesn't have any symptoms of claudication but does have cold clammy limbs and barely appreciable pedal pulses. 06/03/2023 Patient is seen and evaluated in follow-up on the regular medical floor. He is currently sitting up in bed. Awake and alert in no acute distress. He is breathing easier today compared to yesterday. Feeling a bit stronger. Maintaining O2 saturations in the mid 90s on 2 L/m per nasal cannula. He is afebrile. Follow-up chest x-ray revealed decreasing left basilar patchy airspace opacity. Blood sugar 181. He is continued on Zosyn. Heparin for DVT prophylaxis. Objective - Vital Signs Vital signs: Vital Signs Temp 97.6 F 06/03/23 07:11 Pulse 69 06/03/23 07:11 Resp 18 06/03/23 07:11 BP 180/107 06/03/23 07:11 Pulse Ox 95 06/03/23 07:11 FiO2 Intake & Output 06/02/23 06/03/23 06/03/23 18:59 06:59 18:59 Output Total 450 Balance -450 Output: Urine 450 Straight 450 Other: Voiding Method Bedside Commode Incontinent Urinal # Bowel Movements 1 2 - Exam GENERAL: The patient is alert and oriented x3, not in any acute distress. Well developed, well nourished. On 6 to dysfunction not in respiratory distress HEENT: Pupils are round and equally reacting to light. EOMI. No scleral icterus. No conjunctival pallor. Normocephalic, atraumatic. No pharyngeal erythema. No thyromegaly. CARDIOVASCULAR: S1 and S2 present. No murmurs, rubs, or gallops. PULMONARY: Chest is clear to auscultation, no wheezing or crackles. ABDOMEN: Soft, nontender, nondistended, normoactive bowel sounds. No palpable organomegaly. MUSCULOSKELETAL: No joint swelling or deformity. EXTREMITIES: No cyanosis, clubbing, or pedal edema. Patient does have the barely appreciable bilateral pedal pulses cold clammy limbs NEUROLOGICAL: Gross neurological examination did not reveal any focal deficits. SKIN: No rashes. - Labs CBC & Chem 7: 06/01/23 05:07 06/02/23 04:55 Labs: Abnormal Lab Results - Last 24 Hours (Table) 06/02/23 06/02/23 06/03/23 Range/Units 16:42 20:28 06:07 POC Glucose (mg/dL) 276 H 270 H 181 H (70-110) mg/dL 06/03/23 Range/Units 11:42 POC Glucose (mg/dL) 140 H (70-110) mg/dL Microbiology - Last 24 Hours (Table) 06/01/23 13:10 Urine Culture - Final Urine,Clean Catch 05/31/23 09:18 Blood Culture - Preliminary Blood 05/31/23 09:18 Blood Culture - Preliminary Blood Assessment and Plan Assessment: -Sepsis possibly secondary to pneumonia , patient aspirated as today because of which are anteverted was changed to Zosyn from a Rocephin and is being continued on azithromycin, urinary Legionella antigen is negative patient has elevated pro calcitonin up to 2.5 -Generalized weakness secondary to age and may be pneumonia, physical therapy and occupational therapy evaluation -Peripheral vascular disease patient doesn't have a limb threatening ischemia , patient was evaluated by vascular surgery can follow-up as an outpatient -Renal transplant -Acute renal failure secondary to sepsis and acute tumor necrosis can you with IV fluids and nephrology was consulted -Type 2 diabetes mellitus patient will be resumed on home dose of long-acting insulin along with sliding scale insulin. -Proximal atrial fibrillation rapid atrial rate last night because of aspiration and sepsis which improved at this time her Toprol dose will be increased to 25 mg twice a day, cardiology was consulted to evaluate for anticoagulation. Patient was a taken of anti-correlation with PCP as he was having orthostatic hypotension and falls as an outpatient although this doesn't appear to be a problem. Patient has mild thrombocytopenia but this is not a current medication as his platelets is above 50,000 patient denied any previous GI bleeds -Thrombocytopenia chronic further evaluation as an outpatient #5 hyperlipidemia Hypertension -hyperthyroidism DVT prophylaxis: Subcutaneous heparin; remains on hold for thrombocytopenia; we will repeat CBC today and resume heparin if platelet count remains stable
[2023-06-03] MEDS: NYSTATIN 100,000 UNIT/ML SUSP 500,000 UNIT/5 ML CUP PO SCH ×2 (18:29→20:32)
[2023-06-03 19:28] LABS: Glucose,Whole Blood 318 mg/dL (70-110)
[2023-06-03] MEDS: VIT A,C & E-LUTEIN-MINERALS 1 EACH TAB PO SCH (20:30)
[2023-06-03] MEDS: QUEtiapine 100 MG TAB PO SCH (20:30)
[2023-06-03] MEDS: GABAPENTIN 300 MG CAP PO SCH (20:30)
[2023-06-03] MEDS: ATORVASTATIN 10 MG TAB PO SCH (20:30)
[2023-06-04] MEDS: PIPERACILLIN-TAZOBACTAM 3.375 GM in SODIUM CHLORIDE 0.9% 100 ML IVPB SCH ×3 (04:09→20:54)
[2023-06-04 06:19] LABS: Glucose,Whole Blood 116 mg/dL (70-110)
[2023-06-04] MEDS: INSULIN ASPART (NovoLOG) 100 UNIT/ML VIAL SQ SCH ×4 (06:19→21:00)
[2023-06-04] MEDS: LEVOTHYROXINE 75 MCG TAB PO SCH (06:27)
[2023-06-04 07:31] LABS: Basophils % (A) 0 %; Eosinophils # (A) 0.2 k/uL (0-0.7); Eosinophils % (A) 3 %; HCT 38.5 % (39.0-53.0); HGB 12.2 gm/dL (13.0-17.5); Hypochromasia Moderate; Lymphocytes # (A) 0.8 k/uL (1.0-4.8); Lymphocytes % (A) 9 %; MCHC 31.8 g/dL (31.0-37.0); MCV 84.9 fL (80.0-100.0); Monocytes # (A) 0.5 k/uL (0-1.0); Monocytes % (A) 6 %; Neutrophils # (A) 7.2 k/uL (1.3-7.7); Neutrophils % (A) 80 %; RBC 4.54 m/uL (4.30-5.90); RDW 15.8 % (11.5-15.5)
[2023-06-04 07:51] LABS: Mean Platelet Volume 9.3; Platelet Count 92 k/uL (150-450)
[2023-06-04 07:55] LABS: African American GFR (CKD) 54 (>60 ml/min/1.73 sqM); Anion Gap 11 mmol/L; Blood Urea Nitrogen 29 mg/dL (9-20); Calcium 8.2 mg/dL (8.4-10.2); Carbon Dioxide 21 mmol/L (22-30); Chloride 109 mmol/L (98-107); Glucose 102 mg/dL (74-99); Non-African American GFR(CKD) 47 (>60 ml/min/1.73 sqM); Potassium 3.7 mmol/L (3.5-5.1); Sodium 141 mmol/L (137-145)
[2023-06-04] MEDS: FINASTERIDE 5 MG TAB PO SCH (08:51)
[2023-06-04] MEDS: ASPIRIN 81 MG PO SCH (08:51)
[2023-06-04] MEDS: DULoxetine HCL 60 MG CAPSULE.DR PO SCH (08:51)
[2023-06-04] MEDS: MYCOPHENOLATE 250 MG PO SCH ×2 (08:51→21:00)
[2023-06-04] MEDS: METOPROLOL TARTRATE 50 MG TAB PO SCH ×2 (08:51→20:59)
[2023-06-04] MEDS: HEPARIN SODIUM,PORCINE 5,000 UNIT/ML 1 ML VIAL SQ SCH ×2 (08:52→21:00)
[2023-06-04] MEDS: ELTROMBOPAG OLAMINE PO SCH (08:52)
[2023-06-04] MEDS: NYSTATIN 100,000 UNIT/ML SUSP 500,000 UNIT/5 ML CUP PO SCH ×4 (08:52→21:00)
[2023-06-04] MEDS: PANTOPRAZOLE 40 MG/10 ML VIAL IVP SCH ×2 (08:53→20:54)
[2023-06-04] MEDS: Mirabegron [Myrbetriq] 50 MG Tab.Er.24h PO SCH (09:04)
[2023-06-04] MEDS: predniSONE 10 MG TAB PO SCH (09:07)
[2023-06-04] MEDS: SOLIQUA SQ SCH (09:07)
[2023-06-04] MEDS: MULTIVITAMINS, THERA 1 EACH TAB PO SCH (09:07)
[2023-06-04] MEDS: TAMSULOSIN 0.4 MG CAP.ER.24H PO SCH (09:07)
--- NOTE | 2023-06-04 11:03 | P.PN ---
Subjective Progress Note Date: 06/04/23 I am seeing this patient in new consultation today 06/01/2023 in the intensive care unit after he was transferred for acute respiratory distress and possible aspiration. Patient is a 82-year-old white male with past medical history significant for atrial fibrillation, diabetes mellitus, hyperlipidemia, h ypertension, pericardial effusion and prior pericardiocentesis, renal failure with previous renal transplant, prostate cancer, previous urinary tract infection, hypothyroidism. Patient presented to the emergency room yesterday morning complaining of nausea, vomiting, and generalized weakness. This has been ongoing for the last couple weeks. Denies any abdominal pain, hematemesis, constipation, diarrhea, or bloody diarrhea. He did have a fever with a T.max of 103.2 F. He does admit complaints of dysuria and urinary frequency with urgency. Denies any hematuria. Urinalysis was consistent with possible urinary tract infection. Patient's admission chest x-ray showed a right middle lobe infiltrate consistent with community acquired pneumonia. He was originally on 2 L/m nasal cannula when he came in to the ER. Patient was an ER hold for the selective care unit. Last night, he reportedly started to vomit, and then was found to be in some respiratory distress. An A-team was called. There were concerns for possible aspiration, he was temporarily placed on a 15 L nonrebreather. ABG showed a pO2 of 122, pCO2 32, pH of 7.44. He has been started on Zosyn for possible aspiration pneumonia. Also, patient was noted to be in atrial fibrillation with RVR at that time. He was started on a Cardizem infusion at 10 mg/hr. He was admitted to the intensive care unit for these reasons. CBC on arr ival shows WBC count of 13.7, hemoglobin 13.8, hematocrit 22.5, platelets 88,000. BMP on arrival showed a sodium 136, potassium 4, chloride 104, serum bicarb 18, BUN 32, creatinine 1.4, glucose 105. Lactic acid 2.7, down to 1.3. Troponins elevated at 0.059 and 0.09. Negative for influenza, RSV, COVID-19. Urine Legionella antigen negative. Currently, the patient is sitting up in bed, on 6 L per nasal cannula, in no acute respiratory distress. Denies any further nausea or vomiting. Abdomen does not appear acute. Heart rhythm appears to be normal sinus with a first degree AV block on the bedside monitor, will obtain an EKG to confirm. Cardizem could probably be stopped. Patient denies any chest pain, palpitations, lightheadedness or syncope. Blood pressures normotensive, not requiring any vasopressors. Normal saline infusing at 60 ML's per hour. Patient does have history of renal transplant. He did have a CT angiogram of the bilateral lower extremities. He is apparently having a lower extremity weakness and pain. Denies any significant intermittent claudication symptoms. CT angiogram showed occlusion of the distal superficial femoral artery with short segment reconstitution of the proximal popliteal artery which then occludes. There is no definitive flow within the bilateral anterior tibial, posterior tibial, and peroneal arteries which may be secondary to occlusion versus poor arterial bolus. Patient denies any significant lower extremity pain. Bilateral feet are warm with diminished doppler pedal pulses. Patient will be monitored in the intensive care unit at least overnight. The patient is seen today 06/02/2023 in follow-up in the intensive care unit. Hanane jean is currently awake and alert in no acute distress. Resting comfortably in bed. Maintaining O2 saturations in the 90s on 2 L/m per nasal cannula. He is afebrile. Hemodynamically stable. Ultrasound of the kidneys and bladder revealed no hydronephrosis or nephrolithiasis. Left pelvic transplant kidney with a simple cyst. Atrophy of both [place] kidneys. Blood cultures are pending. Sodium 139. Potassium 4.1. Bicarb 23. BUN 37. Creatinine 1.99. Glucose 105. He remains on Zosyn. Heparin for DVT prophylaxis. The patient is seen today 06/03/2023 in follow-up on the regular medical floor. He is currently sitting up in bed. Awake and alert in no acute distress. He is breathing easier today compared to yesterday. Feeling a bit stronger. Maintaining O2 saturations in the mid 90s on 2 L/m per nasal cannula. He is afebrile. Follow-up chest x-ray revealed decreasing left basilar patchy airspace opacity. Blood sugar 181. He is continued on Zosyn. Heparin for DVT prophylaxis. The patient is seen today 06/04/2023 in follow-up on the regular medical floor. He is awake and alert in no acute distress. Denies any worsening shortness of breath, cough or congestion. He is maintaining O2 saturations in the 90s on 2 L/m per nasal cannula. He has normal saline at KVO. Urine culture reveals no growth. Blood cultures revealed no growth. White count 9.0. Hemoglobin 12.2. Platelets 92,000. Sodium 141. Potassium 3.7. Bicarb 21. BUN 29. Creatinine 1.42. Glucose 102. He is continued on antibiotics in the form of Zosyn. Heparin for DVT prophylaxis. Objective - Vital Signs Vital signs: Vital Signs Temp 99.8 F H 06/04/23 07:09 Pulse 81 06/04/23 07:09 Resp 18 06/04/23 07:09 BP 227/135 06/04/23 07:09 Pulse Ox 94 L 06/04/23 08:50 FiO2 Intake & Output 06/03/23 06/04/23 06/04/23 18:59 06:59 18:59 Output Total 460 350 Balance -460 -350 Output: Urine 460 350 Other: # Voids 3 # Bowel Movements 1 1 - Exam GENERAL EXAM: Awake, very pleasant 82-year-old male patient, on 2 L nasal cannula, comfortable in no apparent distress. HEAD: Normocephalic. EYES: Normal reaction of pupils, equal size. NOSE: Clear with pink turbinates. THROAT: No erythema or exudates. NECK: No masses, no JVD. CHEST: No chest wall deformity. LUNGS: Equal air entry with faint crackles in the left base. CVS: S1 and S2 normal with no audible murmur, regular rhythm. ABDOMEN: No hepatosplenomegaly, normal bowel sounds, no guarding or rigidity. SPINE: No scoliosis or deformity SKIN: No rashes CENTRAL NERVOUS SYSTEM: No focal deficits, tone is normal in all 4 extremities. EXTREMITIES: There is no peripheral edema. No clubbing, no cyanosis. Peripheral pulses are intact. - Labs CBC & Chem 7: 06/04/23 06:35 06/04/23 06:35 Labs: Abnormal Lab Results - Last 24 Hours (Table) 06/03/23 06/03/23 06/03/23 Range/Units 11:42 16:35 19:26 Hgb (13.0-17.5) gm/dL Hct (39.0-53.0) % RDW (11.5-15.5) % Plt Count (150-450) k/uL Lymphocytes # (1.0-4.8) k/uL Chloride (98-107) mmol/L Carbon Dioxide (22-30) mmol/L BUN (9-20) mg/dL Creatinine (0.66-1.25) mg/dL Glucose (74-99) mg/dL POC Glucose (mg/dL) 140 H 267 H 318 H (70-110) mg/dL Calcium (8.4-10.2) mg/dL 06/04/23 06/04/23 06/04/23 Range/Units 06:16 06:35 06:35 Hgb 12.2 L (13.0-17.5) gm/dL Hct 38.5 L (39.0-53.0) % RDW 15.8 H (11.5-15.5) % Plt Count 92 L (150-450) k/uL Lymphocytes # 0.8 L (1.0-4.8) k/uL Chloride 109 H (98-107) mmol/L Carbon Dioxide 21 L (22-30) mmol/L BUN 29 H (9-20) mg/dL Creatinine 1.42 H (0.66-1.25) mg/dL Glucose 102 H (74-99) mg/dL POC Glucose (mg/dL) 116 H (70-110) mg/dL Calcium 8.2 L (8.4-10.2) mg/dL Microbiology - Last 24 Hours (Table) 05/31/23 09:18 Blood Culture - Preliminary Blood 05/31/23 09:18 Blood Culture - Preliminary Blood Assessment and Plan Assessment: Acute hypoxemic respiratory failure, possibly related aspiration pneumonia. Follow-up chest x-ray showing improvement. Negative for influenza, RSV, COVID- 19. Urine Legionella antigen negative. Suspected urinary tract infection Leukocytosis, secondary to above Metabolic anion gap acidosis Atrial fibrillation with rapid ventricular rate, currently in normal sinus rhythm with first-degree AV block Elevated troponins, likely related supplies/demand mismatch and hypoxia Nausea and vomiting, improved Thrombocytopenia, chronic History of renal transplant, currently on Prograf, CellCept, and prednisone Chronic kidney disease stage III Diabetes mellitus, insulin independent, complicated with diabetic neuropathy History of prostate cancer Peripheral arterial disease Hypothyroidism Obesity with BMI of 30.4 kg/m Plan: The patient was seen and evaluated Medications and labs reviewed Cleared for discharge from the pulmonary standpoint Complete a course of antibiotics Evaluate for possible home oxygen Follow up in the office in 1 week I have personally seen and examined the patient, performed the documentation and the assessment and plan as written. Number of minutes spent on the visit: 10.
[2023-06-04 11:32] LABS: Glucose,Whole Blood 119 mg/dL (70-110)
[2023-06-04] MEDS ORDERED: FUROSEMIDE 10 MG/ML 2 ML VIAL IV STA (11:42)
--- NOTE | 2023-06-04 11:42 | P.PN ---
Subjective Patient is seen for follow-up for acute kidney injury and top of chronic kidney disease. History of donor renal transplant. No significant complaints of shortness of breath Serum creatinine was elevated at 1.9 and decreased back to 1.4 today Patient is noted to have urine retention. Straight cath was done and 450 ML of urine obtained yesterday. Objective - Vital Signs Vital signs: Vital Signs Temp 99.8 F H 06/04/23 07:09 Pulse 81 06/04/23 08:00 Resp 18 06/04/23 08:00 BP 227/135 06/04/23 07:09 Pulse Ox 94 L 06/04/23 08:50 FiO2 Intake & Output 06/03/23 06/04/23 06/04/23 18:59 06:59 18:59 Output Total 460 350 Balance -460 -350 Output: Urine 460 350 Other: Voiding Method Incontinent # Voids 3 # Bowel Movements 1 1 - Exam Patient is sleeping but arousable, comfortable. No acute distress Examination of the heart S1 and S2 Examination of the lungs bilateral breath sounds are heard Abdomen is soft nontender, renal allograft left lower quadrant, nontender Examination of lower extremities shows no evidence of edema [employer] exam grossly intact - Labs CBC & Chem 7: 06/04/23 06:35 06/04/23 06:35 Labs: Abnormal Lab Results - Last 24 Hours (Table) 06/03/23 06/03/23 06/03/23 Range/Units 11:42 16:35 19:26 Hgb (13.0-17.5) gm/dL Hct (39.0-53.0) % RDW (11.5-15.5) % Plt Count (150-450) k/uL Lymphocytes # (1.0-4.8) k/uL Chloride (98-107) mmol/L Carbon Dioxide (22-30) mmol/L BUN (9-20) mg/dL Creatinine (0.66-1.25) mg/dL Glucose (74-99) mg/dL POC Glucose (mg/dL) 140 H 267 H 318 H (70-110) mg/dL Calcium (8.4-10.2) mg/dL 06/04/23 06/04/23 06/04/23 Range/Units 06:16 06:35 06:35 Hgb 12.2 L (13.0-17.5) gm/dL Hct 38.5 L (39.0-53.0) % RDW 15.8 H (11.5-15.5) % Plt Count 92 L (150-450) k/uL Lymphocytes # 0.8 L (1.0-4.8) k/uL Chloride 109 H (98-107) mmol/L Carbon Dioxide 21 L (22-30) mmol/L BUN 29 H (9-20) mg/dL Creatinine 1.42 H (0.66-1.25) mg/dL Glucose 102 H (74-99) mg/dL POC Glucose (mg/dL) 116 H (70-110) mg/dL Calcium 8.2 L (8.4-10.2) mg/dL 06/04/23 Range/Units 11:31 Hgb (13.0-17.5) gm/dL Hct (39.0-53.0) % RDW (11.5-15.5) % Plt Count (150-450) k/uL Lymphocytes # (1.0-4.8) k/uL Chloride (98-107) mmol/L Carbon Dioxide (22-30) mmol/L BUN (9-20) mg/dL Creatinine (0.66-1.25) mg/dL Glucose (74-99) mg/dL POC Glucose (mg/dL) 119 H (70-110) mg/dL Calcium (8.4-10.2) mg/dL Microbiology - Last 24 Hours (Table) 05/31/23 09:18 Blood Culture - Preliminary Blood 05/31/23 09:18 Blood Culture - Preliminary Blood Assessment and Plan Assessment: 1. Acute kidney injury most likely ATN, currently nonoliguric. Renal function had improved on initial admission but worsened again recently most likely from urine retention. Creatinine decreased back to 1.4 today. 2. Chronic kidney disease NKF stage IIIa with baseline creatinine around 1.2- 1.4 mg/dL secondary to chronic allograft nephropathy 3. Status post donor kidney transplant in 2002 maintained on CellCept, prednisone and Prograf 4. Metabolic acidosis maintained on oral sodium bicarb 5. Pneumonia possible aspiration pneumonia maintained on antibiotics 6. Acute hypoxic respiratory failure, improved 7. Pyuria rule out UTI in the renal transplant Plan: Continue to monitor for post void residuals. IV Lasix 1 Continue prednisone CellCept and tacrolimus. Check tacrolimus level in a.m. Continue with antibiotics Repeat labs in a.m.
[2023-06-04] MEDS: TACROLIMUS 1 MG CAP PO SCH ×2 (12:23→21:00)
[2023-06-04] MEDS: SODIUM BICARBONATE TAB 650 MG TAB PO SCH (12:23)
--- NOTE | 2023-06-04 15:34 | P.PN ---
Subjective Progress Note Date: 06/04/23 Principal diagnosis: Aspiration pneumonia Patient is a 82-year-old male with a past medical history significant for diabetes mellitus hypertension hyperlipidemia atrial fibrillation patient presenting to the hospital with chief complaints of nausea vomiting and weakness , patient did have worsening of his respiratory status requiring admission to the ICU and was consulted for possible aspiration pneumonitis. 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 Objective - Vital Signs Vital signs: Vital Signs Temp 98.8 F 06/04/23 14:00 Pulse 85 06/04/23 14:00 Resp 18 06/04/23 14:00 BP 183/95 06/04/23 14:00 Pulse Ox 90 L 06/04/23 14:00 FiO2 Intake & Output 06/03/23 06/04/23 06/04/23 18:59 06:59 18:59 Output Total 460 950 Balance -460 -950 Output: Urine 460 950 Other: Voiding Method Incontinent # Voids 3 # Bowel Movements 1 1 2 - Exam GENERAL DESCRIPTION: An elderly male lying in bed in no distress RESPIRATORY SYSTEM: Unlabored breathing , decreased breath sounds at the base HEART: S1 S2 regular rate and rhythm , ABDOMEN: Soft , no tenderness EXTREMITIES: No edema feet - Labs CBC & Chem 7: 06/04/23 06:35 06/04/23 06:35 Labs: Abnormal Lab Results - Last 24 Hours (Table) 06/03/23 06/03/23 06/04/23 Range/Units 16:35 19:26 06:16 Hgb (13.0-17.5) gm/dL Hct (39.0-53.0) % RDW (11.5-15.5) % Plt Count (150-450) k/uL Lymphocytes # (1.0-4.8) k/uL Chloride (98-107) mmol/L Carbon Dioxide (22-30) mmol/L BUN (9-20) mg/dL Creatinine (0.66-1.25) mg/dL Glucose (74-99) mg/dL POC Glucose (mg/dL) 267 H 318 H 116 H (70-110) mg/dL Calcium (8.4-10.2) mg/dL 06/04/23 06/04/23 06/04/23 Range/Units 06:35 06:35 11:31 Hgb 12.2 L (13.0-17.5) gm/dL Hct 38.5 L (39.0-53.0) % RDW 15.8 H (11.5-15.5) % Plt Count 92 L (150-450) k/uL Lymphocytes # 0.8 L (1.0-4.8) k/uL Chloride 109 H (98-107) mmol/L Carbon Dioxide 21 L (22-30) mmol/L BUN 29 H (9-20) mg/dL Creatinine 1.42 H (0.66-1.25) mg/dL Glucose 102 H (74-99) mg/dL POC Glucose (mg/dL) 119 H (70-110) mg/dL Calcium 8.2 L (8.4-10.2) mg/dL Microbiology - Last 24 Hours (Table) 05/31/23 09:18 Blood Culture - Preliminary Blood 05/31/23 09:18 Blood Culture - Preliminary Blood Assessment and Plan (1) Pneumonia Current Visit: Yes Status: Acute Code(s): J18.9 - PNEUMONIA, UNSPECIFIED ORGANISM SNOMED Code(s): 090642141 Plan: 1patient presented to the sepsis in this patient with fever and tachycardia elevated white count source likely right middle lobe aspiration pneumonia as the patient did have significant nausea and vomiting patient did have a positive urine with a question of possible polynephritis predisposing to these episodes of vomiting and contributing to this aspiration pneumonia 2- sputum for Gram stain culture could not be collected, patient did have elevated procalcitonin 3- ultrasound of kidney bladder did not show any hydronephrosis or nephro lithiasis with a simple cyst in the transplant kidney 4-patient did have some clinical improvement and will continue with the Zosyn 3.375 g every 8 hours while inpatient transition to oral antibiotics on discharge Dictation was produced using [employer] dictation software. please excuse any grammatical, word or spelling errors. Time with Patient: Less than 30
--- NOTE | 2023-06-04 16:10 | P.PN ---
Subjective Progress Note Date: 06/04/23 82-year-old male came in with the complaints of not feeling well and generalized weakness. Patient is also unable to urinate. Patient had a low-grade fever which is only 99.5 and found to have leukocytosis upon further workup patient chest x-ray is suspicious for right middle lobe pneumonia when cautioned about UTI symptoms patient states he has some pain during urination but not much urine analysis and urine cultures are being obtained blood cultures were obtained patient is being admitted for treatment of pneumonia. Patient is not a great historian patient denied any significant cough with sputum production. Patient also has cold clammy limbs because of which she CT angios of the bilateral lower x-rays was obtained which showed occlusion of the distal superficial femoral artery and the head occlusion beyond the popliteal artery cannot be assessed as there may be lack of contrast. Patient has a renal transplant and is on no suppressive therapy at this time. Patient doesn't have any symptoms of claudication but does have cold clammy limbs and barely appreciable pedal pulses. 06/03/2023 Patient is seen and evaluated in follow-up on the regular medical floor. He is currently sitting up in bed. Awake and alert in no acute distress. He is breathing easier today compared to yesterday. Feeling a bit stronger. Maintaining O2 saturations in the mid 90s on 2 L/m per nasal cannula. He is afebrile. Follow-up chest x-ray revealed decreasing left basilar patchy airspace opacity. Blood sugar 181. He is continued on Zosyn. Heparin for DVT prophylaxis. 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 -patient presented to the sepsis in this patient with fever and tachycardia elevated white count source likely right middle lobe aspiration pneumonia as the patient did have significant nausea and vomiting patient did have a positive urine with a question of possible polynephritis predisposing to these episodes of vomiting and contributing to this aspiration pneumonia --sputum for Gram stain culture could not be collected, patient did have elevated procalcitonin ---ultrasound of kidney bladder did not show any hydronephrosis or nephrolithiasis with a simple cyst in the transplant kidney -patient did have some clinical improvement and will continue with the Zosyn 3.375 g every 8 hours while inpatient transition to oral antibiotics on discharge Objective - Vital Signs Vital signs: Vital Signs Temp 99.8 F H 06/04/23 07:09 Pulse 81 06/04/23 08:00 Resp 18 06/04/23 08:00 BP 227/135 06/04/23 07:09 Pulse Ox 94 L 06/04/23 08:50 FiO2 Intake & Output 06/03/23 06/04/23 06/04/23 18:59 06:59 18:59 Output Total 460 350 Balance -460 -350 Output: Urine 460 350 Other: Voiding Method Incontinent # Voids 3 # Bowel Movements 1 1 - Exam GENERAL: The patient is alert and oriented x3, not in any acute distress. Well d eveloped, well nourished. On 6 to dysfunction not in respiratory distress HEENT: Pupils are round and equally reacting to light. EOMI. No scleral icterus. No conjunctival pallor. Normocephalic, atraumatic. No pharyngeal erythema. No thyromegaly. CARDIOVASCULAR: S1 and S2 present. No murmurs, rubs, or gallops. PULMONARY: Chest is clear to auscultation, no wheezing or crackles. ABDOMEN: Soft, nontender, nondistended, normoactive bowel sounds. No palpable organomegaly. MUSCULOSKELETAL: No joint swelling or deformity. EXTREMITIES: No cyanosis, clubbing, or pedal edema. Patient does have the barely appreciable bilateral pedal pulses cold clammy limbs NEUROLOGICAL: Gross neurological examination did not reveal any focal deficits. SKIN: No rashes. - Labs CBC & Chem 7: 06/04/23 06:35 06/04/23 06:35 Labs: Abnormal Lab Results - Last 24 Hours (Table) 06/03/23 06/03/23 06/04/23 Range/Units 16:35 19:26 06:16 Hgb (13.0-17.5) gm/dL Hct (39.0-53.0) % RDW (11.5-15.5) % Plt Count (150-450) k/uL Lymphocytes # (1.0-4.8) k/uL Chloride (98-107) mmol/L Carbon Dioxide (22-30) mmol/L BUN (9-20) mg/dL Creatinine (0.66-1.25) mg/dL Glucose (74-99) mg/dL POC Glucose (mg/dL) 267 H 318 H 116 H (70-110) mg/dL Calcium (8.4-10.2) mg/dL 06/04/23 06/04/23 06/04/23 Range/Units 06:35 06:35 11:31 Hgb 12.2 L (13.0-17.5) gm/dL Hct 38.5 L (39.0-53.0) % RDW 15.8 H (11.5-15.5) % Plt Count 92 L (150-450) k/uL Lymphocytes # 0.8 L (1.0-4.8) k/uL Chloride 109 H (98-107) mmol/L Carbon Dioxide 21 L (22-30) mmol/L BUN 29 H (9-20) mg/dL Creatinine 1.42 H (0.66-1.25) mg/dL Glucose 102 H (74-99) mg/dL POC Glucose (mg/dL) 119 H (70-110) mg/dL Calcium 8.2 L (8.4-10.2) mg/dL Microbiology - Last 24 Hours (Table) 05/31/23 09:18 Blood Culture - Preliminary Blood 05/31/23 09:18 Blood Culture - Preliminary Blood Assessment and Plan Assessment: -Sepsis possibly secondary to pneumonia , patient aspirated as today because of which are anteverted was changed to Zosyn from a Rocephin and is being continued on azithromycin, urinary Legionella antigen is negative patient has elevated pro calcitonin up to 2.5 -Generalized weakness secondary to age and may be pneumonia, physical therapy and occupational therapy evaluation -Peripheral vascular disease patient doesn't have a limb threatening ischemia , patient was evaluated by vascular surgery can follow-up as an outpatient -Renal transplant -Acute renal failure secondary to sepsis and acute tumor necrosis can you with IV fluids and nephrology was consulted -Type 2 diabetes mellitus patient will be resumed on home dose of long-acting insulin along with sliding scale insulin. -Proximal atrial fibrillation rapid atrial rate last night because of aspiration and sepsis which improved at this time her Toprol dose will be increased to 25 mg twice a day, cardiology was consulted to evaluate for anticoagulation. Patient was a taken of anti-correlation with PCP as he was having orthostatic hypotension and falls as an outpatient although this doesn't appear to be a problem. Patient has mild thrombocytopenia but this is not a current medication as his platelets is above 50,000 patient denied any previous GI bleeds -Thrombocytopenia chronic further evaluation as an outpatient #5 hyperlipidemia Hypertension -hyperthyroidism DVT prophylaxis: Subcutaneous heparin; remains on hold for thrombocytopenia; we will repeat CBC today and resume heparin if platelet count remains stable
[2023-06-04 16:42] LABS: Glucose,Whole Blood 147 mg/dL (70-110)
[2023-06-04 20:20] LABS: Glucose,Whole Blood 214 mg/dL (70-110)
[2023-06-04] MEDS: QUEtiapine 100 MG TAB PO SCH (20:59)
[2023-06-04] MEDS: ATORVASTATIN 10 MG TAB PO SCH (20:59)
[2023-06-04] MEDS: GABAPENTIN 300 MG CAP PO SCH (20:59)
[2023-06-04] MEDS: VIT A,C & E-LUTEIN-MINERALS 1 EACH TAB PO SCH (21:00)
[2023-06-05] MEDS: PIPERACILLIN-TAZOBACTAM 3.375 GM in SODIUM CHLORIDE 0.9% 100 ML IVPB SCH ×3 (04:30→21:06)
[2023-06-05] MEDS: INSULIN ASPART (NovoLOG) 100 UNIT/ML VIAL SQ SCH ×4 (05:59→21:07)
[2023-06-05 06:00] LABS: Glucose,Whole Blood 94 mg/dL (70-110)
[2023-06-05] MEDS: LEVOTHYROXINE 75 MCG TAB PO SCH (06:00)
[2023-06-05] MEDS: TAMSULOSIN 0.4 MG CAP.ER.24H PO SCH (07:40)
[2023-06-05] MEDS: METOPROLOL TARTRATE 50 MG TAB PO SCH ×2 (07:40→21:07)
[2023-06-05] MEDS: predniSONE 10 MG TAB PO SCH (07:40)
[2023-06-05] MEDS: ASPIRIN 81 MG PO SCH (07:40)
[2023-06-05] MEDS: HEPARIN SODIUM,PORCINE 5,000 UNIT/ML 1 ML VIAL SQ SCH ×2 (07:40→21:07)
[2023-06-05] MEDS: MULTIVITAMINS, THERA 1 EACH TAB PO SCH (07:40)
[2023-06-05] MEDS: SODIUM BICARBONATE TAB 650 MG TAB PO SCH (07:40)
[2023-06-05] MEDS: DULoxetine HCL 60 MG CAPSULE.DR PO SCH (07:40)
[2023-06-05] MEDS: PANTOPRAZOLE 40 MG/10 ML VIAL IVP SCH ×2 (07:40→21:07)
[2023-06-05] MEDS: FINASTERIDE 5 MG TAB PO SCH (07:40)
[2023-06-05] MEDS: SOLIQUA SQ SCH (07:41)
[2023-06-05] MEDS: ELTROMBOPAG OLAMINE PO SCH (07:41)
[2023-06-05] MEDS: TACROLIMUS 1 MG CAP PO SCH ×2 (07:42→21:09)
[2023-06-05] MEDS: NYSTATIN 100,000 UNIT/ML SUSP 500,000 UNIT/5 ML CUP PO SCH ×4 (07:42→21:08)
[2023-06-05] MEDS: MYCOPHENOLATE 250 MG PO SCH ×2 (07:42→21:08)
[2023-06-05] MEDS: Mirabegron [Myrbetriq] 50 MG Tab.Er.24h PO SCH (08:29)
--- NOTE | 2023-06-05 10:53 | P.PN ---
Subjective Patient is seen in follow-up for acute kidney injury on chronic kidney disease and renal transplant management. Creatinine 1.42 yesterday. Cough improved. No chest pain or shortness of breath. Oral intake good. Nonoliguric. Vital signs are stable. General: No acute distress. HEENT: Head exam is unremarkable. LUNGS: No audible rhonchi or wheezes. HEART: Rate and Rhythm are regular. ABDOMEN: Nontender. EXTREMITITES: No edema. Objective - Vital Signs Vital signs: Vital Signs Temp 98.3 F 06/05/23 07:59 Pulse 78 06/05/23 07:59 Resp 18 06/05/23 07:59 BP 178/98 06/05/23 07:59 Pulse Ox 96 06/05/23 07:59 FiO2 Intake & Output 06/04/23 06/05/23 06/05/23 18:59 06:59 18:59 Output Total 1200 670 250 Balance -1200 -670 -250 Output: Urine 1200 670 250 Other: Voiding Method Incontinent Urinal Urinal Diaper Diaper Incontinent Incontinent # Voids 3 # Bowel Movements 1 - Labs CBC & Chem 7: 06/04/23 06:35 06/04/23 06:35 Labs: Abnormal Lab Results - Last 24 Hours (Table) 06/04/23 06/04/23 06/04/23 Range/Units 11:31 16:37 20:18 POC Glucose (mg/dL) 119 H 147 H 214 H (70-110) mg/dL Assessment and Plan Plan: Assessment: 1. Acute kidney injury secondary to ATN secondary to urinary retention and cardiorenal syndrome. Creatinine 1.42 yesterday. No hydronephrosis noted. 2. Chronic kidney disease stage IIIa with baseline creatinine 1.2-1.4 secondary to long-term CNI use in solitary kidney. 3. Status post donor any transplant in 2002 maintained on CellCept, prednisone and Prograf. 4. Pneumonia on antibiotics. ID following. 5. Metabolic acidosis secondary to acute kidney injury maintained on oral bicarbonate. 6. Urinary retention. On Flomax. 7. Mild volume overload status post IV Lasix given 06/04/2023. Plan: Maintain antirejection medications. Check a.m. Prograf level. Continue to monitor postvoid residuals. Avoid nephrotoxins.
[2023-06-05 11:04] LABS: Basophils # (A) 0.05 X 10*3/uL (0.00-0.10); Basophils % (A) 0.6 %; Eosinophils # (A) 0.21 X 10*3/uL (0.04-0.35); Eosinophils % (A) 2.5 %; HCT 37.1 % (39.6-50.0); HGB 11.5 g/dL (13.0-17.0); Lymphocytes # (A) 0.78 X 10*3/uL (0.90-5.00); Lymphocytes % (A) 9.3 %; MCH 25.7 pg (27.0-32.0); MCV 82.8 FL (80.0-97.0); Mean Platelet Volume 10.7 FL (9.5-12.2); Monocytes # (A) 0.88 X 10*3/uL (0.20-1.00); Monocytes % (A) 10.5 %; NRBC Per 100 WBC 0 X 10*3/uL (0.00-0.01); Neutrophils # (A) 6.41 X 10*3/uL (1.80-7.70); Neutrophils % (A) 76.1 %; Platelet Count 100 X 10*3/uL (140-440); RBC 4.48 X 10*6/uL (4.40-5.60); RDW 15.4 % (11.5-14.5); WBC 8.41 X 10*3/uL (4.50-10.00)
[2023-06-05 11:12] LABS: Blood Urea Nitrogen 23.1 mg/dL (9.0-27.0); Calcium 8.5 mg/dL (8.7-10.3); Carbon Dioxide 24.1 mmol/L (21.6-31.8); Chloride 107 mmol/L (96-109); Glucose 86 mg/dL (70-110); Potassium 3.2 mmol/L (3.5-5.5); Sodium 145 mmol/L (135-145)
[2023-06-05 11:47] LABS: Glucose,Whole Blood 244 mg/dL (70-110)
[2023-06-05] MEDS: hydrALAZINE HCL 25 MG TAB PO SCH ×4 (11:49→21:07)
--- NOTE | 2023-06-05 12:25 | P.PN ---
Subjective Progress Note Date: 06/05/23 Principal diagnosis: Aspiration pneumonia Patient is a 82-year-old male with a past medical history significant for diabetes mellitus hypertension hyperlipidemia atrial fibrillation patient presenting to the hospital with chief complaints of nausea vomiting and weakness , patient did have worsening of his respiratory status requiring admission to the ICU and was consulted for possible aspiration pneumonitis. 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 Objective - Vital Signs Vital signs: Vital Signs Temp 98.3 F 06/05/23 07:59 Pulse 78 06/05/23 07:59 Resp 18 06/05/23 07:59 BP 178/98 06/05/23 07:59 Pulse Ox 96 06/05/23 07:59 FiO2 Intake & Output 06/04/23 06/05/23 06/05/23 18:59 06:59 18:59 Output Total 1200 670 250 Balance -1200 -670 -250 Output: Urine 1200 670 250 Other: Voiding Method Incontinent Urinal Urinal Diaper Diaper Incontinent Incontinent # Voids 3 # Bowel Movements 1 - Exam GENERAL DESCRIPTION: An elderly male lying in bed in no distress RESPIRATORY SYSTEM: Unlabored breathing , decreased breath sounds at the base HEART: S1 S2 regular rate and rhythm , ABDOMEN: Soft , no tenderness EXTREMITIES: No edema feet - Labs CBC & Chem 7: 06/05/23 06:07 06/05/23 06:07 Labs: Abnormal Lab Results - Last 24 Hours (Table) 06/04/23 06/04/23 06/05/23 Range/Units 16:37 20:18 06:07 Hgb 11.5 L (13.0-17.0) g/dL Hct 37.1 L (39.6-50.0) % MCH 25.7 L (27.0-32.0) pg MCHC 31.0 L (32.0-37.0) g/dL RDW 15.4 H (11.5-14.5) % Plt Count 100 L (140-440) X 10*3/uL Lymphocytes # 0.78 L (0.90-5.00) X 10*3/uL Potassium (3.5-5.5) mmol/L Anion Gap (4.00-12.00) mmol/L Est GFR (CKD-EPI) (>=60) POC Glucose (mg/dL) 147 H 214 H (70-110) mg/dL Calcium (8.7-10.3) mg/dL 06/05/23 06/05/23 Range/Units 06:07 11:45 Hgb (13.0-17.0) g/dL Hct (39.6-50.0) % MCH (27.0-32.0) pg MCHC (32.0-37.0) g/dL RDW (11.5-14.5) % Plt Count (140-440) X 10*3/uL Lymphocytes # (0.90-5.00) X 10*3/uL Potassium 3.2 L (3.5-5.5) mmol/L Anion Gap 13.90 H (4.00-12.00) mmol/L Est GFR (CKD-EPI) 47 L (>=60) POC Glucose (mg/dL) 244 H (70-110) mg/dL Calcium 8.5 L (8.7-10.3) mg/dL Assessment and Plan (1) Pneumonia Current Visit: Yes Status: Acute Code(s): J18.9 - PNEUMONIA, UNSPECIFIED ORGANISM SNOMED Code(s): 741843047 Plan: 1patient presented to the sepsis in this patient with fever and tachycardia elevated white count source likely right middle lobe aspiration pneumonia as the patient did have significant nausea and vomiting patient did have a positive urine with a question of possible polynephritis predisposing to these episodes of vomiting and contributing to this aspiration pneumonia 2- sputum for Gram stain culture could not be collected, patient did have elevated procalcitonin 3- ultrasound of kidney bladder did not show any hydronephrosis or nephrolithiasis with a simple cyst in the transplant kidney 4-patient did have some clinical improvement sputum cultures currently pending, patient continue with the Zosyn 3.375 g every 8 hours while waiting for the sputum cultures to be finalize Dictation was produced using [employer] dictation software. please excuse any grammatical, word or spelling errors. Time with Patient: Less than 30
--- NOTE | 2023-06-05 13:53 | P.PN ---
Subjective Progress Note Date: 06/05/23 I am seeing this patient in new consultation today 06/01/2023 in the intensive care unit after he was transferred for acute respiratory distress and possible aspiration. Patient is a 82-year-old white male with past medical history significant for atrial fibrillation, diabetes mellitus, hyperlipidemia, hypertension, pericardial effusion and prior pericardiocentesis, renal failure with previous renal transplant, prostate cancer, previous urinary tract infection, hypothyroidism. Patient presented to the emergency room yesterday morning complaining of nausea, vomiting, and generalized weakness. This has been ongoing for the last couple weeks. Denies any abdominal pain, hematemesis, constipation, diarrhea, or bloody diarrhea. He did have a fever with a T.max of 103.2 F. He does admit complaints of dysuria and urinary frequency with urgency. Denies any hematuria. Urinalysis was consistent with possible urinary tract infection. Patient's admission chest x-ray showed a right middle lobe infiltrate consistent with community acquired pneumonia. He was originally on 2 L/m nasal cannula when he came in to the ER. Patient was an ER hold for the selective care unit. Last night, he reportedly started to vomit, and then was found to be in some respiratory distress. An A-team was called. There were concerns for possible aspiration, he was temporarily placed on a 15 L nonrebreather. ABG showed a pO2 of 122, pCO2 32, pH of 7.44. He has been started on Zosyn for possible aspiration pneumonia. Also, patient was noted to be in atrial fibrillation with RVR at that time. He was started on a Cardizem infusion at 10 mg/hr. He was admitted to the intensive care unit for these reasons. CBC on a rrival shows WBC count of 13.7, hemoglobin 13.8, hematocrit 22.5, platelets 88,000. BMP on arrival showed a sodium 136, potassium 4, chloride 104, serum bicarb 18, BUN 32, creatinine 1.4, glucose 105. Lactic acid 2.7, down to 1.3. Troponins elevated at 0.059 and 0.09. Negative for influenza, RSV, COVID-19. Urine Legionella antigen negative. Currently, the patient is sitting up in bed, on 6 L per nasal cannula, in no acute respiratory distress. Denies any further nausea or vomiting. Abdomen does not appear acute. Heart rhythm appears to be normal sinus with a first degree AV block on the bedside monitor, will obtain an EKG to confirm. Cardizem could probably be stopped. Patient denies any chest pain, palpitations, lightheadedness or syncope. Blood pressures normotensive, not requiring any vasopressors. Normal saline infusing at 60 ML's per hour. Patient does have history of renal transplant. He did have a CT angiogram of the bilateral lower extremities. He is apparently having a lower extremity weakness and pain. Denies any significant intermittent claudication symptoms. CT angiogram showed occlusion of the distal superficial femoral artery with short segment reconstitution of the proximal popliteal artery which then occludes. There is no definitive flow within the bilateral anterior tibial, posterior tibial, and peroneal arteries which may be secondary to occlusion versus poor arterial bolus. Patient denies any significant lower extremity pain. Bilateral feet are warm with diminished doppler pedal pulses. Patient will be monitored in the intensive care unit at least overnight. The patient is seen today 06/02/2023 in follow-up in the intensive care unit. He is currently awake and alert in no acute distress. Resting comfortably in bed. Maintaining O2 saturations in the 90s on 2 L/m per nasal cannula. He is afebrile. Hemodynamically stable. Ultrasound of the kidneys and bladder revealed no hydronephrosis or nephrolithiasis. Left pelvic transplant kidney with a simple cyst. Atrophy of both [place] kidneys. Blood cultures are pending. Sodium 139. Potassium 4.1. Bicarb 23. BUN 37. Creatinine 1.99. Glucose 105. He remains on Zosyn. Heparin for DVT prophylaxis. The patient is seen today 06/03/2023 in follow-up on the regular medical floor. He is currently sitting up in bed. Awake and alert in no acute distress. He is breathing easier today compared to yesterday. Feeling a bit stronger. Maintaining O2 saturations in the mid 90s on 2 L/m per nasal cannula. He is afebrile. Follow-up chest x-ray revealed decreasing left basilar patchy airspace opacity. Blood sugar 181. He is continued on Zosyn. Heparin for DVT prophylaxis. The patient is seen today 06/04/2023 in follow-up on the regular medical floor. He is awake and alert in no acute distress. Denies any worsening shortness of breath, cough or congestion. He is maintaining O2 saturations in the 90s on 2 L/m per nasal cannula. He has normal saline at KVO. Urine culture reveals no growth. Blood cultures revealed no growth. White count 9.0. Hemoglobin 12.2. Platelets 92,000. Sodium 141. Potassium 3.7. Bicarb 21. BUN 29. Creatinine 1.42. Glucose 102. He is continued on antibiotics in the form of Zosyn. Heparin for DVT prophylaxis. on today's evaluation of 06/05/2023, the patient is being seen for a follow-up. This is an 82-year-old male patient was admitted for respiratory distress, possible aspiration and shortness of breath. The patient has multiple other comorbidities including diabetes mellitus, hypertension, hyperlipidemia, A. fib, prostate cancer, previous history of kidney transplantation and hypothyroidism. The patient has also peripheral vascular disease. CT angiogram at the time of admission was noted.the patient is currently being treated for an acute COPD exacerbation. Note that his vital screening including RSV, Covid 19 and influenza were all negative. The patientis currently on 2 L of Oxymizer nasal cannula. The patientis bringing up some minimal amount of sputum. No nausea or vomiting or abdominal pain. the WBC count is at 8.4 with a hemoglobin 11.5, BUN is at 23 with a creatinine 1.5 and a sodium level is at 145 and a potassium level is at 3.2. Objective - Vital Signs Vital signs: Vital Signs Temp 98.3 F 06/05/23 07:59 Pulse 78 06/05/23 07:59 Resp 18 06/05/23 07:59 BP 178/98 06/05/23 07:59 Pulse Ox 96 06/05/23 07:59 FiO2 Intake & Output 06/04/23 06/05/23 06/05/23 18:59 06:59 18:59 Output Total 1200 670 250 Balance -1200 -670 -250 Output: Urine 1200 670 250 Other: Voiding Method Incontinent Urinal Urinal Diaper Diaper Incontinent Incontinent # Voids 3 # Bowel Movements 1 - Exam GENERAL EXAM: Awake, very pleasant 82-year-old male patient, on 2 L nasal cannula, comfortable in no apparent distress. HEAD: Normocephalic. EYES: Normal reaction of pupils, equal size. NOSE: Clear with pink turbinates. THROAT: No erythema or exudates. NECK: No masses, no JVD. CHEST: No chest wall deformity. LUNGS: Equal air entry with faint crackles in the left base. CVS: S1 and S2 normal with no audible murmur, regular rhythm. ABDOMEN: No hepatosplenomegaly, normal bowel sounds, no guarding or rigidity. SPINE: No scoliosis or deformity SKIN: No rashes CENTRAL NERVOUS SYSTEM: No focal deficits, tone is normal in all 4 extremities. EXTREMITIES: There is no peripheral edema. No clubbing, no cyanosis. Peripheral pulses are intact. - Labs CBC & Chem 7: 06/05/23 06:07 06/05/23 06:07 Labs: Abnormal Lab Results - Last 24 Hours (Table) 06/04/23 06/04/23 06/04/23 Range/Units 11:31 16:37 20:18 Hgb (13.0-17.0) g/dL Hct (39.6-50.0) % MCH (27.0-32.0) pg MCHC (32.0-37.0) g/dL RDW (11.5-14.5) % Plt Count (140-440) X 10*3/uL Lymphocytes # (0.90-5.00) X 10*3/uL Potassium (3.5-5.5) mmol/L Anion Gap (4.00-12.00) mmol/L Est GFR (CKD-EPI) (>=60) POC Glucose (mg/dL) 119 H 147 H 214 H (70-110) mg/dL Calcium (8.7-10.3) mg/dL 06/05/23 06/05/23 Range/Units 06:07 06:07 Hgb 11.5 L (13.0-17.0) g/dL Hct 37.1 L (39.6-50.0) % MCH 25.7 L (27.0-32.0) pg MCHC 31.0 L (32.0-37.0) g/dL RDW 15.4 H (11.5-14.5) % Plt Count 100 L (140-440) X 10*3/uL Lymphocytes # 0.78 L (0.90-5.00) X 10*3/uL Potassium 3.2 L (3.5-5.5) mmol/L Anion Gap 13.90 H (4.00-12.00) mmol/L Est GFR (CKD-EPI) 47 L (>=60) POC Glucose (mg/dL) (70-110) mg/dL Calcium 8.5 L (8.7-10.3) mg/dL Assessment and Plan Plan: Acute hypoxemic respiratory failure, possibly related aspiration pneumonia. Follow-up chest x-ray showing improvement. Negative for influenza, RSV, COVID- 19. Urine Legionella antigen negative.the patient remains on 2 L of Oxymizer nasal cannula Suspected urinary tract infection, urine cultures were negative and the patient remains on IV Zosyn Leukocytosis, secondary to above, improving Metabolic anion gap acidosis, recovered Atrial fibrillation with rapid ventricular rate, currently in normal sinus rhythm with first-degree AV block Elevated troponins, likely related supplies/demand mismatch and hypoxia Nausea and vomiting, improved Thrombocytopenia, chronic, improving History of renal transplant, currently on Prograf, CellCept, and prednisone Chronic kidney disease stage III Diabetes mellitus, insulin independent, complicated with diabetic neuropathy History of prostate cancer Peripheral arterial disease Hypothyroidism Obesity with BMI of 30.4 kg/m Plan: Cleared for discharge from the pulmonary standpoint Complete a course of antibiotics Evaluate for possible home oxygen Follow up in the office in 1 week
[2023-06-05] MEDS ORDERED: Potassium Replacement Protocol 1 EACH MISC MISCELLANE PRN (14:59)
--- NOTE | 2023-06-05 15:20 | P.PN ---
Subjective Progress Note Date: 06/05/23 This is a 80-year-old gentleman with past medical history of atrial fibrillation, not on anticoagulation secondary to multiple falls and syncope, CKD,post renal transplant on immunosuppressive medications,Polio, diabetes mellitus, hypertension, hyperlipidemia, hypothyroidism, parathyroid surgery, anxiety, depression, chronic back pain, L3-L5 fusion with decompression, and multiple other medical issues admitted with increasing generalized weakness, pneumonia. Maintained on Zosyn and antirejection medications. Continues on Flomax for urinary retention. Nephrology following. Afebrile. Reports productive cough, minimal brown sputum. Sputum culture in progress. Preliminary blood culture is negative .Afebrile, normal WBC, creatinine 1.5. Maintaining O2 sats in the high 90s on 2 L nasal cannula. Objective - Vital Signs Vital signs: Vital Signs Temp 98.3 F 06/05/23 07:59 Pulse 78 06/05/23 07:59 Resp 18 06/05/23 07:59 BP 178/98 06/05/23 07:59 Pulse Ox 96 06/05/23 07:59 FiO2 Intake & Output 06/04/23 06/05/23 06/05/23 18:59 06:59 18:59 Output Total 1200 670 250 Balance -1200 -670 -250 Output: Urine 1200 670 250 Other: Voiding Method Incontinent Urinal Urinal Diaper Diaper Incontinent Incontinent # Voids 3 # Bowel Movements 1 - Exam PHYSICAL EXAM: VITAL SIGNS: As above GENERAL: Sitting up in bed, no acute distress HEENT: Normocephalic, Conjunctivae normal. eyes normal. Oral thrush-on nystatin. NECK: Supple, No JVD. CARDIOVASCULAR: S1, S2 regular.systolic murmur RESPIRATION: Unlabored, Breath sounds diminished in the bases. Fine basilar expiratory wheeze. ABDOMEN: Soft, nontender . No guarding. no masses palpable. No ascites, No hepatosplenomegaly.Bowel sounds heard. LEGS: No edema. no swelling. PSYCHIATRY: Alert and oriented X3, mood and affect normal. NERVOUS SYSTEM: Cranial N 2-12 grossly normal. No focal deficits. Strength and sensation grossly intact. Skin: Warm and dry, no rash - Labs CBC & Chem 7: 06/05/23 06:07 06/05/23 06:07 Labs: Abnormal Lab Results - Last 24 Hours (Table) 06/04/23 06/04/2306/05/23 Range/Units 16:37 20:18 06:07 Hgb 11.5 L (13.0-17.0) g/dL Hct 37.1 L (39.6-50.0) % MCH 25.7 L (27.0-32.0) pg MCHC 31.0 L (32.0-37.0) g/dL RDW 15.4 H (11.5-14.5) % Plt Count 100 L (140-440) X 10*3/uL Lymphocytes # 0.78 L (0.90-5.00) X 10*3/uL Potassium (3.5-5.5) mmol/L Anion Gap (4.00-12.00) mmol/L Est GFR (CKD-EPI) (>=60) POC Glucose (mg/dL) 147 H 214 H (70-110) mg/dL Calcium (8.7-10.3) mg/dL 06/05/23 06/05/23 Range/Units 06:07 11:45 Hgb (13.0-17.0) g/dL Hct (39.6-50.0) % MCH (27.0-32.0) pg MCHC (32.0-37.0) g/dL RDW (11.5-14.5) % Plt Count (140-440) X 10*3/uL Lymphocytes # (0.90-5.00) X 10*3/uL Potassium 3.2 L (3.5-5.5) mmol/L Anion Gap 13.90 H (4.00-12.00) mmol/L Est GFR (CKD-EPI) 47 L (>=60) POC Glucose (mg/dL) 244 H (70-110) mg/dL Calcium 8.5 L (8.7-10.3) mg/dL Assessment and Plan Assessment: Acute Sepsis secondary to Acute aspiration pneumonia, possible polynephritis. 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 Acute hypoxic respiratory failure secondary to the above Elevated troponins suspect related to the above Possible acute UTI Oral candidiasis Leukocytosis A. fib with RVR, converted to sinus with first-degree AV block, in a patient with chronic persistent atrial fibrillation not on any anticoagulation secondary to his multiple falls and syncope in the past Thrombocytopenia Chronic renal failure stage IIIA, history of renal transplant, baseline creatinine 1.2-1.4 Urinary retention Diabetes mellitus type 2 CAD, history of CABG Hypertension Hyperlipidemia Hypothyroidism History of slow-growing prostate cancer, under surveillance with Dr. Craig Depression Anxiety Plan: Continue on current medication regime ,monitoring and symptomatic treatment. Sputum culture pending, IV antibiotics of Zosyn as per ID. Nystatin swish and swallow. Discharge planning in progress. The impression and plan of care has been dictated as directed. : I performed a history and examination of this patient, discussed the same with the dictator. I agree with the dictator's note ,documented as a scribe. Any additional findings or plans will be noted.
[2023-06-05] MEDS: POTASSIUM CHLORIDE ER 20 MEQ TAB.ER PO SCH (15:43)
[2023-06-05 16:12] LABS: Glucose,Whole Blood 432 mg/dL (70-110)
[2023-06-05] MEDS ORDERED: hydrALAZINE HCL 20 MG/ML 1 ML VIAL IVP PRN (16:28)
[2023-06-05 19:52] LABS: Glucose,Whole Blood 373 mg/dL (70-110)
[2023-06-05] MEDS: ATORVASTATIN 10 MG TAB PO SCH (21:07)
[2023-06-05] MEDS: GABAPENTIN 300 MG CAP PO SCH (21:08)
[2023-06-05] MEDS: VIT A,C & E-LUTEIN-MINERALS 1 EACH TAB PO SCH (21:09)
[2023-06-05] MEDS: QUEtiapine 100 MG TAB PO SCH (21:09)
[2023-06-06] MEDS: PIPERACILLIN-TAZOBACTAM 3.375 GM in SODIUM CHLORIDE 0.9% 100 ML IVPB SCH ×3 (04:30→21:37)
[2023-06-06 05:44] LABS: Glucose,Whole Blood 282 mg/dL (70-110)
[2023-06-06] MEDS: INSULIN ASPART (NovoLOG) 100 UNIT/ML VIAL SQ SCH ×4 (06:40→21:37)
[2023-06-06] MEDS: LEVOTHYROXINE 75 MCG TAB PO SCH (06:40)
[2023-06-06] MEDS: HEPARIN SODIUM,PORCINE 5,000 UNIT/ML 1 ML VIAL SQ SCH ×2 (08:06→21:37)
[2023-06-06] MEDS: PANTOPRAZOLE 40 MG/10 ML VIAL IVP SCH ×2 (08:06→21:37)
[2023-06-06] MEDS: SODIUM BICARBONATE TAB 650 MG TAB PO SCH (08:08)
[2023-06-06] MEDS: METOPROLOL TARTRATE 50 MG TAB PO SCH ×2 (08:08→21:38)
[2023-06-06] MEDS: ASPIRIN 81 MG PO SCH (08:08)
[2023-06-06] MEDS: MULTIVITAMINS, THERA 1 EACH TAB PO SCH (08:08)
[2023-06-06] MEDS: hydrALAZINE HCL 25 MG TAB PO SCH ×2 (08:09→12:58)
[2023-06-06] MEDS: TAMSULOSIN 0.4 MG CAP.ER.24H PO SCH (08:09)
[2023-06-06] MEDS: FINASTERIDE 5 MG TAB PO SCH (08:09)
[2023-06-06] MEDS: predniSONE 10 MG TAB PO SCH (08:09)
[2023-06-06] MEDS: DULoxetine HCL 60 MG CAPSULE.DR PO SCH (08:09)
[2023-06-06] MEDS: TACROLIMUS 1 MG CAP PO SCH ×2 (08:10→21:59)
[2023-06-06] MEDS: NYSTATIN 100,000 UNIT/ML SUSP 500,000 UNIT/5 ML CUP PO SCH ×4 (08:10→21:38)
[2023-06-06] MEDS: SOLIQUA SQ SCH (08:19)
[2023-06-06] MEDS: MYCOPHENOLATE 250 MG PO SCH ×2 (08:19→21:38)
[2023-06-06] MEDS: ELTROMBOPAG OLAMINE PO SCH (08:25)
[2023-06-06] MEDS: Mirabegron [Myrbetriq] 50 MG Tab.Er.24h PO SCH (08:26)
[2023-06-06 10:46] LABS: Basophils # (A) 0.04 X 10*3/uL (0.00-0.10); Basophils % (A) 0.5 %; Eosinophils # (A) 0.25 X 10*3/uL (0.04-0.35); Eosinophils % (A) 3.3 %; HCT 36.2 % (39.6-50.0); HGB 11.5 g/dL (13.0-17.0); Lymphocytes # (A) 0.93 X 10*3/uL (0.90-5.00); Lymphocytes % (A) 12.3 %; MCH 26.3 pg (27.0-32.0); MCHC 31.8 g/dL (32.0-37.0); MCV 82.6 FL (80.0-97.0); Mean Platelet Volume 11.1 FL (9.5-12.2); Monocytes # (A) 0.62 X 10*3/uL (0.20-1.00); Monocytes % (A) 8.2 %; NRBC Per 100 WBC 0 X 10*3/uL (0.00-0.01); Neutrophils # (A) 5.63 X 10*3/uL (1.80-7.70); Neutrophils % (A) 74.6 %; Platelet Count 129 X 10*3/uL (140-440); RBC 4.38 X 10*6/uL (4.40-5.60); RDW 15.4 % (11.5-14.5); WBC 7.55 X 10*3/uL (4.50-10.00)
[2023-06-06 11:07] LABS: Magnesium 1.6 mg/dL (1.5-2.4)
[2023-06-06 11:19] LABS: BUN/Creat Ratio 15.14 Ratio (12.00-20.00); Blood Urea Nitrogen 21.2 mg/dL (9.0-27.0); Calcium 8.3 mg/dL (8.7-10.3); Carbon Dioxide 22.1 mmol/L (21.6-31.8); Chloride 108 mmol/L (96-109); Glucose 198 mg/dL (70-110); Potassium 3.6 mmol/L (3.5-5.5); Sodium 143 mmol/L (135-145)
--- NOTE | 2023-06-06 11:38 | P.PN ---
Subjective Progress Note Date: 06/06/23 I am seeing this patient in new consultation today 06/01/2023 in the intensive care unit after he was transferred for acute respiratory distress and possible aspiration. Patient is a 82-year-old white male with past medical history significant for atrial fibrillation, diabetes mellitus, hyperlipidemia, hypertension, pericardial effusion and prior pericardiocentesis, renal failure with previous renal transplant, prostate cancer, previous urinary tract infection, hypothyroidism. Patient presented to the emergency room yesterday morning complaining of nausea, vomiting, and generalized weakness. This has been ongoing for the last couple weeks. Denies any abdominal pain, hematemesis, constipation, diarrhea, or bloody diarrhea. He did have a fever with a T.max of 103.2 F. He does admit complaints of dysuria and urinary frequency with urgency. Denies any hematuria. Urinalysis was consistent with possible urinary tract infection. Patient's admission chest x-ray showed a right middle lobe infiltrate consistent with community acquired pneumonia. He was originally on 2 L/m nasal cannula when he came in to the ER. Patient was an ER hold for the selective care unit. Last night, he reportedly started to vomit, and then was found to be in some respiratory distress. An A-team was called. There were concerns for possible aspiration, he was temporarily placed on a 15 L nonrebreather. ABG showed a pO2 of 122, pCO2 32, pH of 7.44. He has been started on Zosyn for possible aspiration pneumonia. Also, patient was noted to be in atrial fibrillation with RVR at that time. He was started on a Cardizem infusion at 10 mg/hr. He was admitted to the intensive care unit for these reasons. CBC on a rrival shows WBC count of 13.7, hemoglobin 13.8, hematocrit 22.5, platelets 88,000. BMP on arrival showed a sodium 136, potassium 4, chloride 104, serum bicarb 18, BUN 32, creatinine 1.4, glucose 105. Lactic acid 2.7, down to 1.3. Troponins elevated at 0.059 and 0.09. Negative for influenza, RSV, COVID-19. Urine Legionella antigen negative. Currently, the patient is sitting up in bed, on 6 L per nasal cannula, in no acute respiratory distress. Denies any further nausea or vomiting. Abdomen does not appear acute. Heart rhythm appears to be normal sinus with a first degree AV block on the bedside monitor, will obtain an EKG to confirm. Cardizem could probably be stopped. Patient denies any chest pain, palpitations, lightheadedness or syncope. Blood pressures normotensive, not requiring any vasopressors. Normal saline infusing at 60 ML's per hour. Patient does have history of renal transplant. He did have a CT angiogram of the bilateral lower extremities. He is apparently having a lower extremity weakness and pain. Denies any significant intermittent claudication symptoms. CT angiogram showed occlusion of the distal superficial femoral artery with short segment reconstitution of the proximal popliteal artery which then occludes. There is no definitive flow within the bilateral anterior tibial, posterior tibial, and peroneal arteries which may be secondary to occlusion versus poor arterial bolus. Patient denies any significant lower extremity pain. Bilateral feet are warm with diminished doppler pedal pulses. Patient will be monitored in the intensive care unit at least overnight. The patient is seen today 06/02/2023 in follow-up in the intensive care unit. He is currently awake and alert in no acute distress. Resting comfortably in bed. Maintaining O2 saturations in the 90s on 2 L/m per nasal cannula. He is afebrile. Hemodynamically stable. Ultrasound of the kidneys and bladder revealed no hydronephrosis or nephrolithiasis. Left pelvic transplant kidney with a simple cyst. Atrophy of both [place] kidneys. Blood cultures are pending. Sodium 139. Potassium 4.1. Bicarb 23. BUN 37. Creatinine 1.99. Glucose 105. He remains on Zosyn. Heparin for DVT prophylaxis. The patient is seen today 06/03/2023 in follow-up on the regular medical floor. He is currently sitting up in bed. Awake and alert in no acute distress. He is breathing easier today compared to yesterday. Feeling a bit stronger. Maintaining O2 saturations in the mid 90s on 2 L/m per nasal cannula. He is afebrile. Follow-up chest x-ray revealed decreasing left basilar patchy airspace opacity. Blood sugar 181. He is continued on Zosyn. Heparin for DVT prophylaxis. The patient is seen today 06/04/2023 in follow-up on the regular medical floor. He is awake and alert in no acute distress. Denies any worsening shortness of breath, cough or congestion. He is maintaining O2 saturations in the 90s on 2 L/m per nasal cannula. He has normal saline at KVO. Urine culture reveals no growth. Blood cultures revealed no growth. White count 9.0. Hemoglobin 12.2. Platelets 92,000. Sodium 141. Potassium 3.7. Bicarb 21. BUN 29. Creatinine 1.42. Glucose 102. He is continued on antibiotics in the form of Zosyn. Heparin for DVT prophylaxis. on today's evaluation of 06/05/2023, the patient is being seen for a follow-up. This is an 82-year-old male patient was admitted for respiratory distress, possible aspiration and shortness of breath. The patient has multiple other comorbidities including diabetes mellitus, hypertension, hyperlipidemia, A. fib, prostate cancer, previous history of kidney transplantation and hypothyroidism. The patient has also peripheral vascular disease. CT angiogram at the time of admission was noted.the patient is currently being treated for an acute COPD exacerbation. Note that his vital screening including RSV, Covid 19 and influenza were all negative. The patientis currently on 2 L of Oxymizer nasal cannula. The patientis bringing up some minimal amount of sputum. No nausea or vomiting or abdominal pain. the WBC count is at 8.4 with a hemoglobin 11.5, BUN is at 23 with a creatinine 1.5 and a sodium level is at 145 and a potassium level is at 3.2. On today's evaluation of 06/06/2023, I'm seeing the patient for a follow-up. The patient is feeling slightly improved. No new complaints and the patient is being treated for an acute COPD/pneumonia. Patient is currently on prednisone 10 mg by mouth daily. He is also on chronic immunosuppression regarding his previous kidney transplantation. The patient remains on bronchodilators. The lites echoes at 7.5 with a hemoglobin 11.5, creatinine is stable at 1.4 with a BUN of 21. Sodium level is at 143. The patient remains on 2 L of oxygen by na miguel cannula with a pulse ox of 98%. He is afebrile. Breathing is nonlabored.. The patient was receiving IV Zosyn per ID and the most recent chest x-ray from 06/02/2023 that showed no acute abnormalities. Objective - Vital Signs Vital signs: Vital Signs Temp 98.3 F 06/06/23 08:00 Pulse 73 06/06/23 08:00 Resp 18 06/06/23 08:00 BP 203/96 06/06/23 08:00 Pulse Ox 98 06/06/23 08:00 FiO2 Intake & Output 06/05/23 06/06/23 06/06/23 18:59 06:59 18:59 Output Total 550 Balance -550 Output: Urine 550 Other: Voiding Method Urinal Urinal Diaper Incontinent - Exam GENERAL EXAM: Awake, very pleasant 82-year-old male patient, on 2 L nasal cannula, comfortable in no apparent distress. HEAD: Normocephalic. EYES: Normal reaction of pupils, equal size. NOSE: Clear with pink turbinates. THROAT: No erythema or exudates. NECK: No masses, no JVD. CHEST: No chest wall deformity. LUNGS: Equal air entry with faint crackles in the left base. CVS: S1 and S2 normal with no audible murmur, regular rhythm. ABDOMEN: No hepatosplenomegaly, normal bowel sounds, no guarding or rigidity. SPINE: No scoliosis or deformity SKIN: No rashes CENTRAL NERVOUS SYSTEM: No focal deficits, tone is normal in all 4 extremities. EXTREMITIES: There is no peripheral edema. No clubbing, no cyanosis. Peripheral pulses are intact. - Labs CBC & Chem 7: 06/06/23 05:52 06/06/23 05:52 Labs: Abnormal Lab Results - Last 24 Hours (Table) 06/05/23 06/05/23 06/05/23 Range/Units 06:07 06:07 11:45 Hgb 11.5 L (13.0-17.0) g/dL Hct 37.1 L (39.6-50.0) % MCH 25.7 L (27.0-32.0) pg MCHC 31.0 L (32.0-37.0) g/dL RDW 15.4 H (11.5-14.5) % Plt Count 100 L (140-440) X 10*3/uL Lymphocytes # 0.78 L (0.90-5.00) X 10*3/uL Potassium 3.2 L (3.5-5.5) mmol/L Anion Gap 13.90 H (4.00-12.00) mmol/L Est GFR (CKD-EPI) 47 L (>=60) POC Glucose (mg/dL) 244 H (70-110) mg/dL Calcium 8.5 L (8.7-10.3) mg/dL 06/05/23 06/05/23 06/06/23 Range/Units 16:09 19:51 05:43 Hgb (13.0-17.0) g/dL Hct (39.6-50.0) % MCH (27.0-32.0) pg MCHC (32.0-37.0) g/dL RDW (11.5-14.5) % Plt Count (140-440) X 10*3/uL Lymphocytes # (0.90-5.00) X 10*3/uL Potassium (3.5-5.5) mmol/L Anion Gap (4.00-12.00) mmol/L Est GFR (CKD-EPI) (>=60) POC Glucose (mg/dL) 432 H 373 H 282 H (70-110) mg/dL Calcium (8.7-10.3) mg/dL Microbiology - Last 24 Hours (Table) 06/04/23 08:43 Gram Stain - Preliminary Sputum 05/31/23 09:18 Blood Culture - Final Blood 05/31/23 09:18 Blood Culture - Final Blood Assessment and Plan Plan: Acute hypoxemic respiratory failure, possibly related aspiration pneumonia. Follow-up chest x-ray showing improvement. Negative for influenza, RSV, COVID- 19. Urine Legionella antigen negative.the patient remains on 2 L of nasal cannula Suspected pneumonia/urinary tract infection, urine cultures were negative and the patient remains on IV Zosyn, most recent chest x-ray from 06/02/2023 was showing diminished left basilar patchy airspace opacity. Leukocytosis, secondary to above, improving Metabolic anion gap acidosis, recovered Atrial fibrillation with rapid ventricular rate, currently in normal sinus rhythm with first-degree AV block Elevated troponins, likely related supplies/demand mismatch and hypoxia Nausea and vomiting, improved Thrombocytopenia, chronic, improving History of renal transplant, currently on Prograf, CellCept, and prednisone Chronic kidney disease stage III Diabetes mellitus, insulin independent, complicated with diabetic neuropathy History of prostate cancer Peripheral arterial disease Hypothyroidism Obesity with BMI of 30.4 kg/m Plan: Antibiotics per ID Pulmonary status is stable Evaluate for possible home oxygen Continue suppression Labs are stable
[2023-06-06 11:47] LABS: Glucose,Whole Blood 234 mg/dL (70-110)
[2023-06-06] MEDS ORDERED: INSULIN DETEMIR (LEVEMIR) 100 UNIT/ML SYR SQ ONE (12:23)
--- NOTE | 2023-06-06 14:05 | P.PN ---
Subjective Progress Note Date: 06/06/23 Principal diagnosis: Aspiration pneumonia Patient is a 82-year-old male with a past medical history significant for diabetes mellitus hypertension hyperlipidemia atrial fibrillation patient presenting to the hospital with chief complaints of nausea vomiting and weakness , patient did have worsening of his respiratory status requiring admission to the ICU and was consulted for possible aspiration pneumonitis. On today's evaluation that is 06/06/2023, the patient remains to be afebrile , the patient is breathing comfortably on 2 L nasal cannula oxygen , the patient denies chest pain, no worsening cough or sputum production , patient denies nausea/vomiting/ diarrhea and no abdominal pain Patient white count is 7.55, creatinine is 1.4, blood culture has been negative, sputum cultures collected and results are pending, ultrasound Was Negative for Hydronephrosis Left Pelvic Transplant Kidney with a Simple Cyst Objective - Vital Signs Vital signs: Vital Signs Temp 98.3 F 06/06/23 08:00 Pulse 73 06/06/23 08:00 Resp 18 06/06/23 08:00 BP 129/71 06/06/23 09:50 Pulse Ox 98 06/06/23 08:00 FiO2 Intake & Output 06/05/23 06/06/23 06/06/23 18:59 06:59 18:59 Output Total 550 Balance -550 Output: Urine 550 Other: Voiding Method Urinal Urinal Diaper Incontinent - Exam GENERAL DESCRIPTION: An elderly male lying in bed in no distress RESPIRATORY SYSTEM: Unlabored breathing , decreased breath sounds at the base HEART: S1 S2 regular rate and rhythm , ABDOMEN: Soft , no tenderness EXTREMITIES: No edema feet - Labs CBC & Chem 7: 06/06/23 05:52 06/06/23 05:52 Labs: Abnormal Lab Results - Last 24 Hours (Table) 06/05/23 06/05/23 06/05/23 Range/Units 06:07 06:07 11:45 RBC (4.40-5.60) X 10*6/uL Hgb 11.5 L (13.0-17.0) g/dL Hct 37.1 L (39.6-50.0) % MCH 25.7 L (27.0-32.0) pg MCHC 31.0 L (32.0-37.0) g/dL RDW 15.4 H (11.5-14.5) % Plt Count 100 L (140-440) X 10*3/uL Lymphocytes # 0.78 L (0.90-5.00) X 10*3/uL Potassium 3.2 L (3.5-5.5) mmol/L Anion Gap 13.90 H (4.00-12.00) mmol/L Est GFR (CKD-EPI) 47 L (>=60) POC Glucose (mg/dL) 244 H (70-110) mg/dL Calcium 8.5 L (8.7-10.3) mg/dL 06/05/23 06/05/23 06/06/23 Range/Units 16:09 19:51 05:43 RBC (4.40-5.60) X 10*6/uL Hgb (13.0-17.0) g/dL Hct (39.6-50.0) % MCH (27.0-32.0) pg MCHC (32.0-37.0) g/dL RDW (11.5-14.5) % Plt Count (140-440) X 10*3/uL Lymphocytes # (0.90-5.00) X 10*3/uL Potassium (3.5-5.5) mmol/L Anion Gap (4.00-12.00) mmol/L Est GFR (CKD-EPI) (>=60) POC Glucose (mg/dL) 432 H 373 H 282 H (70-110) mg/dL Calcium (8.7-10.3) mg/dL 06/06/23 Range/Units 05:52 RBC 4.38 L (4.40-5.60) X 10*6/uL Hgb 11.5 L (13.0-17.0) g/dL Hct 36.2 L (39.6-50.0) % MCH 26.3 L (27.0-32.0) pg MCHC 31.8 L (32.0-37.0) g/dL RDW 15.4 H (11.5-14.5) % Plt Count 129 L (140-440) X 10*3/uL Lymphocytes # (0.90-5.00) X 10*3/uL Potassium (3.5-5.5) mmol/L Anion Gap (4.00-12.00) mmol/L Est GFR (CKD-EPI) (>=60) POC Glucose (mg/dL) (70-110) mg/dL Calcium (8.7-10.3) mg/dL Microbiology - Last 24 Hours (Table) 06/04/23 08:43 Gram Stain - Preliminary Sputum 05/31/23 09:18 Blood Culture - Final Blood 05/31/23 09:18 Blood Culture - Final Blood Assessment and Plan (1) Pneumonia Current Visit: Yes Status: Acute Code(s): J18.9 - PNEUMONIA, UNSPECIFIED ORGANISM SNOMED Code(s): 213492208 Plan: 1patient presented to the sepsis in this patient with fever and tachycardia elevated white count source likely right middle lobe aspiration pneumonia as the patient did have significant nausea and vomiting patient did have a positive urine with a question of possible polynephritis predisposing to these episodes of vomiting and contributing to this aspiration pneumonia 2- sputum for Gram stain culture could not be collected, patient did have elevated procalcitonin 3- ultrasound of kidney bladder did not show any hydronephrosis or nephrolithiasis with a simple cyst in the transplant kidney 4-patient has shown clinical improvement sputum cultures currently pending, patient continue with the Zosyn 3.375 g every 8 hours while waiting for the sputum cultures to be finalize to determine his discharge antibiotics and monitor clinical course closely Dictation was produced using [employer] dictation software. please excuse any grammatical, word or spelling errors. Time with Patient: Less than 30
[2023-06-06] MEDS ORDERED: POTASSIUM CHLORIDE ER 20 MEQ TAB.ER PO STA (14:26)
--- NOTE | 2023-06-06 14:27 | P.PN ---
Subjective Patient is seen in follow-up for acute kidney injury on chronic kidney disease and renal transplant management. Graft function stable. Complaining of loose bowel movements. No chest pain or shortness of breath. Oral intake good. Nonoliguric. Vital signs are stable. General: No acute distress. HEENT: Head exam is unremarkable. LUNGS: No audible rhonchi or wheezes. HEART: Rate and Rhythm are regular. ABDOMEN: Nontender. EXTREMITITES: No edema. Objective - Vital Signs Vital signs: Vital Signs Temp 98.3 F 06/06/23 08:00 Pulse 78 06/06/23 12:55 Resp 18 06/06/23 08:00 BP 179/105 06/06/23 12:55 Pulse Ox 97 06/06/23 12:55 FiO2 Intake & Output 06/05/23 06/06/23 06/06/23 18:59 06:59 18:59 Output Total 550 Balance -550 Output: Urine 550 Other: Voiding Method Urinal Urinal Urinal Diaper Incontinent - Labs CBC & Chem 7: 06/06/23 05:52 06/06/23 05:52 Labs: Abnormal Lab Results - Last 24 Hours (Table) 06/05/23 06/05/23 06/06/23 Range/Units 16:09 19:51 05:43 RBC (4.40-5.60) X 10*6/uL Hgb (13.0-17.0) g/dL Hct (39.6-50.0) % MCH (27.0-32.0) pg MCHC (32.0-37.0) g/dL RDW (11.5-14.5) % Plt Count (140-440) X 10*3/uL Anion Gap (4.00-12.00) mmol/L Est GFR (CKD-EPI) (>=60) Glucose (70-110) mg/dL POC Glucose (mg/dL) 432 H 373 H 282 H (70-110) mg/dL Calcium (8.7-10.3) mg/dL 06/06/23 06/06/23 06/06/23 Range/Units 05:52 05:52 11:46 RBC 4.38 L (4.40-5.60) X 10*6/uL Hgb 11.5 L (13.0-17.0) g/dL Hct 36.2 L (39.6-50.0) % MCH 26.3 L (27.0-32.0) pg MCHC 31.8 L (32.0-37.0) g/dL RDW 15.4 H (11.5-14.5) % Plt Count 129 L (140-440) X 10*3/uL Anion Gap 12.90 H (4.00-12.00) mmol/L Est GFR (CKD-EPI) 51 L (>=60) Glucose 198 H (70-110) mg/dL POC Glucose (mg/dL) 234 H (70-110) mg/dL Calcium 8.3 L (8.7-10.3) mg/dL Microbiology - Last 24 Hours (Table) 06/04/23 08:43 Gram Stain - Preliminary Sputum 05/31/23 09:18 Blood Culture - Final Blood 05/31/23 09:18 Blood Culture - Final Blood Assessment and Plan Plan: Assessment: 1. Acute kidney injury secondary to ATN secondary to urinary retention and cardiorenal syndrome. Creatinine 1.4. No hydronephrosis noted. 2. Chronic kidney disease stage IIIa with baseline creatinine 1.2-1.4 secondary to long-term CNI use in solitary kidney. 3. Status post donor any transplant in 2002 maintained on CellCept, prednisone and Prograf. 4. Pneumonia on antibiotics. ID following. 5. Metabolic acidosis secondary to acute kidney injury maintained on oral bicarbonate. 6. Urinary retention. On Flomax. 7. Mild volume overload status post IV Lasix given 06/04/2023. 8. Hypokalemia from diuresis. Replaced. Better. 9. Hypomagnesemia from diuresis and GI losses. Plan: Maintain antirejection medications. Follow-up Prograf level. Continue to monitor postvoid residuals. Avoid nephrotoxins. Replace potassium and magnesium.
[2023-06-06] MEDS: hydrALAZINE HCL 50 MG TAB PO SCH ×3 (15:13→21:38)
[2023-06-06] MEDS: MAGNESIUM OXIDE 400 MG TAB PO SCH (15:13)
[2023-06-06 16:28] LABS: Glucose,Whole Blood 292 mg/dL (70-110)
--- NOTE | 2023-06-06 16:31 | P.PN ---
Subjective Progress Note Date: 06/06/23 This is a 80-year-old gentleman with past medical history of atrial fibrillation, not on anticoagulation secondary to multiple falls and syncope, CKD,post renal transplant on immunosuppressive medications,Polio, diabetes mellitus, hypertension, hyperlipidemia, hypothyroidism, parathyroid surgery, anxiety, depression, chronic back pain, L3-L5 fusion with decompression, and multiple other medical issues admitted with increasing generalized weakness, pneumonia. Maintained on Zosyn and antirejection medications. Continues on Flomax for urinary retention. Nephrology following. Afebrile. Reports productive cough, minimal brown sputum. Sputum culture in progress. Preliminary blood culture is negative .Afebrile, normal WBC, creatinine 1.5. Maintaining O2 sats in the high 90s on 2 L nasal cannula. 06/06/2023 maintained on Zosyn, afebrile, normal WBC. Preliminary sputum c ulture reporting no organisms seen .Complaining of loose stools that started during the night, with a couple episodes this morning. Denies nausea, vomiting. Denies abdominal pain. Continues to require 2 L nasal cannula to maintain O2 sats in the mid 90s. Denies chest pain, palpitations. Magnesium 1.6, potassium 3.6, receiving supplementation. Objective - Vital Signs Vital signs: Vital Signs Temp 98.3 F 06/06/23 08:00 Pulse 78 06/06/23 12:55 Resp 18 06/06/23 08:00 BP 179/105 06/06/23 12:55 Pulse Ox 97 06/06/23 12:55 FiO2 Intake & Output 06/05/23 06/06/23 06/06/23 18:59 06:59 18:59 Output Total 550 Balance -550 Output: Urine 550 Other: Voiding Method Urinal Urinal Urinal Diaper Incontinent - Exam PHYSICAL EXAM: VITAL SIGNS: As above GENERAL: Alert and oriented 3, Sitting up in bed, no acute distress HEENT: Normocephalic, Conjunctivae normal. eyes normal. NECK: Supple, No JVD. CARDIOVASCULAR: S1, S2 regular.systolic murmur RESPIRATION: Unlabored, Breath sounds diminished in the bases. ABDOMEN: Soft, nontender . No guarding. no masses palpable. +BS LEGS: No edema. no swelling. NERVOUS SYSTEM: Cranial N 2-12 grossly normal. No focal deficits. Strength and sensation grossly intact. Skin: Warm and dry, no rash - Labs CBC & Chem 7: 06/06/23 05:52 06/06/23 05:52 Labs: Abnormal Lab Results - Last 24 Hours (Table) 06/05/23 06/05/23 06/06/23 Range/Units 16:09 19:51 05:43 RBC (4.40-5.60) X 10*6/uL Hgb (13.0-17.0) g/dL Hct (39.6-50.0) % MCH (27.0-32.0) pg MCHC (32.0-37.0) g/dL RDW (11.5-14.5) % Plt Count (140-440) X 10*3/uL Anion Gap (4.00-12.00) mmol/L Est GFR (CKD-EPI) (>=60) Glucose (70-110) mg/dL POC Glucose (mg/dL) 432 H 373 H 282 H (70-110) mg/dL Calcium (8.7-10.3) mg/dL 06/06/23 06/06/23 06/06/23 Range/Units 05:52 05:52 11:46 RBC 4.38 L (4.40-5.60) X 10*6/uL Hgb 11.5 L (13.0-17.0) g/dL Hct 36.2 L (39.6-50.0) % MCH 26.3 L (27.0-32.0) pg MCHC 31.8 L (32.0-37.0) g/dL RDW 15.4 H (11.5-14.5) % Plt Count 129 L (140-440) X 10*3/uL Anion Gap 12.90 H (4.00-12.00) mmol/L Est GFR (CKD-EPI) 51 L (>=60) Glucose 198 H (70-110) mg/dL POC Glucose (mg/dL) 234 H (70-110) mg/dL Calcium 8.3 L (8.7-10.3) mg/dL Microbiology - Last 24 Hours (Table) 06/04/23 08:43 Gram Stain - Preliminary Sputum 05/31/23 09:18 Blood Culture - Final Blood 05/31/23 09:18 Blood Culture - Final Blood Assessment and Plan Assessment: Acute Sepsis secondary to Acute aspiration pneumonia, possible polynephritis. 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 Acute hypoxic respiratory failure secondary to the above Elevated troponins suspect related to the above Possible acute UTI Oral candidiasis Leukocytosis A. fib with RVR, converted to sinus with first-degree AV block, in a patient with chronic persistent atrial fibrillation not on any anticoagulation secondary to his multiple falls and syncope in the past Thrombocytopenia Chronic renal failure stage IIIA, history of renal transplant, baseline creatinine 1.2-1.4 Urinary retention Diabetes mellitus type 2 CAD, history of CABG Hypertension Hyperlipidemia Hypothyroidism History of slow-growing prostate cancer, under surveillance with Dr. Craig Depression Anxiety Plan: Continue on current medication regime ,monitoring and symptomatic treatment. Check stool sample for C. difficile colitis. IV antibiotics as per ID. Discharge planning in progress. May require O2 at discharge. The impression and plan of care has been dictated as directed. : I performed a history and examination of this patient, discussed the same with the dictator. I agree with the dictator's note ,documented as a scribe. Any additional findings or plans will be noted.
[2023-06-06 20:32] LABS: Glucose,Whole Blood 202 mg/dL (70-110)
[2023-06-06] MEDS: GABAPENTIN 300 MG CAP PO SCH (21:38)
[2023-06-06] MEDS: VIT A,C & E-LUTEIN-MINERALS 1 EACH TAB PO SCH (21:38)
[2023-06-06] MEDS: QUEtiapine 100 MG TAB PO SCH (21:38)
[2023-06-06] MEDS: ATORVASTATIN 10 MG TAB PO SCH (21:38)
[2023-06-06] MEDS: LOPERAMIDE 2 MG CAP PO PRN (21:38)
[2023-06-07] MEDS: ACETAMINOPHEN TAB 500 MG TAB PO PRN ×2 (01:36→14:30)
[2023-06-07] MEDS: PIPERACILLIN-TAZOBACTAM 3.375 GM in SODIUM CHLORIDE 0.9% 100 ML IVPB SCH ×2 (04:38→12:18)
[2023-06-07 05:39] LABS: Glucose,Whole Blood 150 mg/dL (70-110)
[2023-06-07] MEDS: LEVOTHYROXINE 75 MCG TAB PO SCH (06:15)
[2023-06-07] MEDS: INSULIN ASPART (NovoLOG) 100 UNIT/ML VIAL SQ SCH ×2 (06:43→12:19)
[2023-06-07] MEDS: DULoxetine HCL 60 MG CAPSULE.DR PO SCH (09:02)
[2023-06-07] MEDS: FINASTERIDE 5 MG TAB PO SCH (09:02)
[2023-06-07] MEDS: ASPIRIN 81 MG PO SCH (09:02)
[2023-06-07] MEDS: TACROLIMUS 1 MG CAP PO SCH (09:02)
[2023-06-07] MEDS: MAGNESIUM OXIDE 400 MG TAB PO SCH (09:02)
[2023-06-07] MEDS: predniSONE 10 MG TAB PO SCH (09:03)
[2023-06-07] MEDS: hydrALAZINE HCL 50 MG TAB PO SCH (09:03)
[2023-06-07] MEDS: HEPARIN SODIUM,PORCINE 5,000 UNIT/ML 1 ML VIAL SQ SCH (09:03)
[2023-06-07] MEDS: SODIUM BICARBONATE TAB 650 MG TAB PO SCH (09:03)
[2023-06-07] MEDS: METOPROLOL TARTRATE 50 MG TAB PO SCH (09:03)
[2023-06-07] MEDS: PANTOPRAZOLE 40 MG/10 ML VIAL IVP SCH (09:03)
[2023-06-07] MEDS: NYSTATIN 100,000 UNIT/ML SUSP 500,000 UNIT/5 ML CUP PO SCH ×2 (09:04→12:18)
[2023-06-07] MEDS: SOLIQUA SQ SCH (09:04)
[2023-06-07] MEDS: MYCOPHENOLATE 250 MG PO SCH (09:04)
[2023-06-07] MEDS: ELTROMBOPAG OLAMINE PO SCH (09:07)
[2023-06-07] MEDS: Mirabegron [Myrbetriq] 50 MG Tab.Er.24h PO SCH (10:01)
[2023-06-07] MEDS: TAMSULOSIN 0.4 MG CAP.ER.24H PO SCH (10:45)
[2023-06-07] MEDS: MULTIVITAMINS, THERA 1 EACH TAB PO SCH (10:45)
[2023-06-07] MEDS: LOPERAMIDE 2 MG CAP PO PRN (11:04)
--- NOTE | 2023-06-07 11:49 | P.PN ---
Subjective Patient is seen in follow-up for acute kidney injury on chronic kidney disease and renal transplant management. Graft function stable. Still having loose bowel movements. C. diff negative. No chest pain or shortness of breath. Oral intake good. Nonoliguric. Vital signs are stable. General: No acute distress. HEENT: Head exam is unremarkable. LUNGS: No audible rhonchi or wheezes. HEART: Rate and Rhythm are regular. ABDOMEN: Nontender. EXTREMITITES: No edema. Objective - Vital Signs Vital signs: Vital Signs Temp 97.6 F 06/07/23 07:12 Pulse 56 L 06/07/23 08:00 Resp 19 06/07/23 08:00 BP 160/89 06/07/23 11:41 Pulse Ox 97 06/07/23 09:03 FiO2 Intake & Output 06/06/23 06/07/23 06/07/23 18:59 06:59 18:59 Output Total 1200 400 Balance -1200 -400 Output: Urine 900 400 Post Void Residual 300 Other: Voiding Method Urinal Urinal Urinal # Bowel Movements 3 - Labs CBC & Chem 7: 06/06/23 05:52 06/06/23 05:52 Labs: Abnormal Lab Results - Last 24 Hours (Table) 06/06/23 06/06/23 06/06/23 Range/Units 11:46 16:27 20:30 POC Glucose (mg/dL) 234 H 292 H 202 H (70-110) mg/dL 06/07/23 Range/Units 05:38 POC Glucose (mg/dL) 150 H (70-110) mg/dL Microbiology - Last 24 Hours (Table) 06/04/23 08:43 Gram Stain - Final Sputum Sputum Culture - Final Barbara albicans Assessment and Plan Plan: Assessment: 1. Acute kidney injury secondary to ATN secondary to urinary retention and cardiorenal syndrome. Creatinine 1.4 dated 06/06/23. No hydronephrosis noted. 2. Chronic kidney disease stage IIIa with baseline creatinine 1.2-1.4 secondary to long-term CNI use in solitary kidney. 3. Status post donor any transplant in 2002 maintained on CellCept, prednisone and Prograf. 4. Pneumonia on antibiotics. ID following. 5. Metabolic acidosis secondary to acute kidney injury maintained on oral bicarbonate. 6. Urinary retention. On Flomax. 7. Mild volume overload status post IV Lasix given 06/04/2023. 8. Hypokalemia from diuresis. Replaced. Better. 9. Hypomagnesemia from diuresis and GI losses. On oral magnesium oxide. Plan: Maintain antirejection medications. Follow-up Prograf level. Continue to monitor postvoid residuals. Avoid nephrotoxins. Replace potassium and magnesium as needed. Increase dose of hydralazine to 100 mg 3 times daily. Hold for systolic blood pressure less than 120.
[2023-06-07 12:02] LABS: Glucose,Whole Blood 182 mg/dL (70-110)
--- NOTE | 2023-06-07 12:03 | P.PN ---
Subjective Progress Note Date: 06/07/23 Principal diagnosis: Aspiration pneumonia Patient is a 82-year-old male with a past medical history significant for diabetes mellitus hypertension hyperlipidemia atrial fibrillation patient presenting to the hospital with chief complaints of nausea vomiting and weakness , patient did have worsening of his respiratory status requiring admission to the ICU and was consulted for possible aspiration pneumonitis. On today's evaluation that is 06/07/2023, the patient continues to be afebrile , the patient is breathing comfortably on room air and no need for supplemental oxygen, the patient denies chest pain shortness of breath cough has decreased in intensity , patient denies nausea/vomiting, no abdominal pain however is complaining of diarrhea patient did have stool for C. diff which negative Patient white count is 7.55, creatinine is 1.4 as of yesterday no lab draw today, stool for C. diff is negative, blood culture has been negative, sputum cultures growing Barbara likely colonizer, ultrasound Was Negative for Hydronephrosis Left Pelvic Transplant Kidney with a Simple Cyst Objective - Vital Signs Vital signs: Vital Signs Temp 97.6 F 06/07/23 07:12 Pulse 56 L 06/07/23 08:00 Resp 19 06/07/23 08:00 BP 170/96 06/07/23 07:12 Pulse Ox 97 06/07/23 09:03 FiO2 Intake & Output 06/06/23 06/07/23 06/07/23 18:59 06:59 18:59 Output Total 1200 400 Balance -1200 -400 Output: Urine 900 400 Post Void Residual 300 Other: Voiding Method Urinal Urinal Urinal # Bowel Movements 3 - Exam GENERAL DESCRIPTION: An elderly male lying in bed in no distress RESPIRATORY SYSTEM: Unlabored breathing , decreased breath sounds at the base HEART: S1 S2 regular rate and rhythm , ABDOMEN: Soft , no tenderness EXTREMITIES: No edema feet - Labs CBC & Chem 7: 06/06/23 05:52 06/06/23 05:52 Labs: Abnormal Lab Results - Last 24 Hours (Table) 06/06/23 06/06/23 06/06/23 Range/Units 05:52 05:52 11:46 RBC 4.38 L (4.40-5.60) X 10*6/uL Hgb 11.5 L (13.0-17.0) g/dL Hct 36.2 L (39.6-50.0) % MCH 26.3 L (27.0-32.0) pg MCHC 31.8 L (32.0-37.0) g/dL RDW 15.4 H (11.5-14.5) % Plt Count 129 L (140-440) X 10*3/uL Anion Gap 12.90 H (4.00-12.00) mmol/L Est GFR (CKD-EPI) 51 L (>=60) Glucose 198 H (70-110) mg/dL POC Glucose (mg/dL) 234 H (70-110) mg/dL Calcium 8.3 L (8.7-10.3) mg/dL 06/06/23 06/06/23 06/07/23 Range/Units 16:27 20:30 05:38 RBC (4.40-5.60) X 10*6/uL Hgb (13.0-17.0) g/dL Hct (39.6-50.0) % MCH (27.0-32.0) pg MCHC (32.0-37.0) g/dL RDW (11.5-14.5) % Plt Count (140-440) X 10*3/uL Anion Gap (4.00-12.00) mmol/L Est GFR (CKD-EPI) (>=60) Glucose (70-110) mg/dL POC Glucose (mg/dL) 292 H 202 H 150 H (70-110) mg/dL Calcium (8.7-10.3) mg/dL Microbiology - Last 24 Hours (Table) 06/04/23 08:43 Gram Stain - Final Sputum Sputum Culture - Final Barbara albicans Assessment and Plan (1) Pneumonia Current Visit: Yes Status: Acute Code(s): J18.9 - PNEUMONIA, UNSPECIFIED ORGANISM SNOMED Code(s): 103032360 Plan: 1patient presented to the sepsis in this patient with fever and tachycardia elevated white count source likely right middle lobe aspiration pneumonia as the patient did have significant nausea and vomiting patient did have a positive urine with a question of possible polynephritis predisposing to these episodes of vomiting and contributing to this aspiration pneumonia 2- sputum for Gram stain culture could not be collected, patient did have elevated procalcitonin 3- ultrasound of kidney bladder did not show any hydronephrosis or nephrolithiasis with a simple cyst in the transplant kidney 4-patient has shown clinical improvement sputum cultures negative for any resistant pathogen we will consider short course of oral Augmentin on discharge prescription was sent to the pharmacy 5- patient that is likely antibiotic associated should improve with discontinuation of Zosyn has been encouraged to increase his probiotic and yogurt intake Dictation was produced using [employer] dictation software. please excuse any grammatical, word or spelling errors. Time with Patient: Less than 30
--- NOTE | 2023-06-07 12:55 | P.DS ---
Providers Date of admission: 05/31/23 09:27 Expected date of discharge: 06/07/23 Attending physician: Narinder Rosenberg Consults: 05/31/23 18:31 Consult Physician Routine Consulting Provider: Luh Hwang Consult Reason/Comments: pneamonia and fever Do you want consulting provider notified?: Yes 05/31/23 19:29 Consult Physician Stat Consulting Provider: Bowen Méndez Consult Reason/Comments: penumonia Do you want consulting provider notified?: Yes 06/01/23 06:38 Consult Physician Routine Consulting Provider: Carolina Wolfe Consult Reason/Comments: history of renal transplant Do you want consulting provider notified?: Yes Primary care physician: Narinder Rosenberg [facility] Course: Final Diagnoses: Acute Sepsis secondary to Acute aspiration pneumonia, possible polynephritis. 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 Acute hypoxic respiratory failure secondary to the above Elevated troponins suspect related to the above Possible acute UTI Oral candidiasis Leukocytosis A. fib with RVR, converted to sinus with first-degree AV block, in a patient with chronic persistent atrial fibrillation not on any anticoagulation secondary to his multiple falls and syncope in the past Thrombocytopenia Chronic renal failure stage IIIA, history of renal transplant, baseline creatinine 1.2-1.4 Urinary retention Diabetes mellitus type 2 CAD, history of CABG Hypertension Hyperlipidemia Hypothyroidism History of slow-growing prostate cancer, under surveillance with Dr. Rafa Webb [facility] course:This is a 80-year-old gentleman with past medical history of atrial fibrillation, not on anticoagulation secondary to multiple falls and syncope, CKD,post renal transplant on immunosuppressive medications,Polio, diabetes mellitus, hypertension, hyperlipidemia, hypothyroidism, parathyroid surgery, anxiety, depression, chronic back pain, L3-L5 fusion with decompression, and multiple other medical issues admitted with increasing generalized weakness, pneumonia. Maintained on Zosyn and antirejection medications. Continues on Flomax for urinary retention. Nephrology following. Afebrile. Reports productive cough, minimal brown sputum. Sputum culture in progress. Preliminary blood culture is negative .Afebrile, normal WBC, creatinine 1.5. Maintaining O2 sats in the high 90s on 2 L nasal cannula. 06/06/2023 maintained on Zosyn, afebrile, normal WBC. Preliminary sputum culture reporting no organisms seen .Complaining of loose stools that started during the night, with a couple episodes this morning. Denies nausea, vomiting. Denies abdominal pain. Continues to require 2 L nasal cannula to maintain O2 sats in the mid 90s. Denies chest pain, palpitations. Magnesium 1.6, potassium 3.6, receiving supplementation. Diarrhea improving. Tested negative for C. difficile colitis. Cleared by infectious disease with Discharge antibiotics ordered. Weaned off of oxygen, maintaining O2 sats in the high 90s on room air. Hypertensive, Pretty hydralazine further. Anticipate discharge home in a stable condition with guarded prognosis, later today pending blood pressure controlled. The impression and plan of care has been dictated as directed. : I performed a history and examination of this patient, discussed the same with the dictator. I agree with the dictator's note ,documented as a scribe. Any additional findings or plans will be noted. Patient Condition at Discharge: Stable Plan - Discharge Summary Discharge Rx Participant: Yes New Discharge Prescriptions: New Metoprolol Tartrate [Lopressor] 50 mg PO BID #60 tab Amoxic-Pot Clav 875-125Mg [Augmentin 875-125] 1 tab PO Q12HR 5 Days #10 tab Loperamide [Imodium] 2 mg PO QID PRN cap PRN Reason: Diarrhea Magnesium Oxide [Mag-Ox] 400 mg PO DAILY tab hydrALAZINE HCL [Apresoline] 100 mg PO TID #90 tab Nystatin 100,000 Unit/ml Susp [Mycostatin Oral Susp] 500,000 unit PO QID #200 ml Acetaminophen Tab [Tylenol] 500 mg PO Q6HR PRN tab PRN Reason: Fever And/ Or Pain Continue Finasteride [Proscar] 5 mg PO DAILY Tamsulosin HCl [Flomax] 0.4 mg PO DAILY Multivitamins, Thera [Multivitamin (formulary)] 1 tab PO DAILY Vit C/E/Zn/Coppr/Lutein/Zeaxan [Preservision Areds 2 Softgel] 1 cap PO HS Pantoprazole [Protonix] 40 mg PO DAILY mycophenolate mofetiL [Cellcept] 250 mg PO BID Tacrolimus [Prograf] 1 mg PO BID Sodium Bicarbonate Tab 650 mg PO DAILY QUEtiapine [SEROquel] 100 mg PO HS Gabapentin 300 mg PO HS rOPINIRole HCL [Requip] 1 mg PO HS Insulin Lispro [humaLOG Kwikpen] See Protocol SQ AC-TID Mirabegron [Myrbetriq] 50 mg PO DAILY Levothyroxine Sodium [Synthroid] 75 mcg PO DAILY DULoxetine HCL [Cymbalta] 120 mg PO DAILY Aspirin 81 mg PO DAILY Rosuvastatin Calcium [Crestor] 5 mg PO HS Insulin Glargine/Lixisenatide [Soliqua 100 Unit-33 Mcg/ml Pen] 30 units SQ DAILY predniSONE 10 mg PO DAILY Eltrombopag Olamine [Promacta] 12.5 mg PO DAILY Discontinued Metoprolol Tartrate [Lopressor] 25 mg PO DAILY Metoprolol Tartrate [Lopressor] 50 mg PO HS Discharge Medication List Finasteride [Proscar] 5 mg PO DAILY 02/09/17 [History] Tamsulosin HCl [Flomax] 0.4 mg PO DAILY 02/09/17 [History] Multivitamins, Thera [Multivitamin (formulary)] 1 tab PO DAILY 12/31/18 [History] Vit C/E/Zn/Coppr/Lutein/Zeaxan [Preservision Areds 2 Softgel] 1 cap PO HS 12/18/19 [History] Pantoprazole [Protonix] 40 mg PO DAILY 12/28/19 [History] Tacrolimus [Prograf] 1 mg PO BID 04/03/20 [History] mycophenolate mofetiL [Cellcept] 250 mg PO BID 04/03/20 [History] DULoxetine HCL [Cymbalta] 120 mg PO DAILY 12/01/20 [History] Levothyroxine Sodium [Synthroid] 75 mcg PO DAILY 12/01/20 [History] Aspirin 81 mg PO DAILY 07/12/21 [History] Gabapentin 300 mg PO HS 07/12/21 [History] QUEtiapine [SEROquel] 100 mg PO HS 07/12/21 [History] Rosuvastatin Calcium [Crestor] 5 mg PO HS 07/12/21 [History] Sodium Bicarbonate Tab 650 mg PO DAILY 07/12/21 [History] rOPINIRole HCL [Requip] 1 mg PO HS 09/02/21 [History] Insulin Glargine/Lixisenatide [Soliqua 100 Unit-33 Mcg/ml Pen] 30 units SQ DAILY 12/01/21 [History] Eltrombopag Olamine [Promacta] 12.5 mg PO DAILY 05/31/23 [History] Insulin Lispro [humaLOG Kwikpen] See Protocol SQ AC-TID 05/31/23 [History] Mirabegron [Myrbetriq] 50 mg PO DAILY 05/31/23 [History] predniSONE 10 mg PO DAILY 05/31/23 [History] Metoprolol Tartrate [Lopressor] 50 mg PO BID #60 tab 06/06/23 [Rx] Nystatin 100,000 Unit/ml Susp [Mycostatin Oral Susp] 500,000 unit PO QID #200 ml 06/06/23 [Rx] Acetaminophen Tab [Tylenol] 500 mg PO Q6HR PRN tab 06/07/23 [Rx] Amoxic-Pot Clav 875-125Mg [Augmentin 875-125] 1 tab PO Q12HR 5 Days #10 tab 06/07/23 [Rx] Loperamide [Imodium] 2 mg PO QID PRN cap 06/07/23 [Rx] Magnesium Oxide [Mag-Ox] 400 mg PO DAILY tab 06/07/23 [Rx] hydrALAZINE HCL [Apresoline] 100 mg PO TID #90 tab 06/07/23 [Rx] Follow up Appointment(s)/Referral(s): Carolina Wolfe MD [STAFF PHYSICIAN] - 1 Week (office not answering Please call to schedule appointment ) Narinder Rosenberg DO [Primary Care Provider] - 06/09/23 11:00 am (With Purvi) Mitzy Dubon DO [STAFF PHYSICIAN] - 1 Week [facility], [NON-STAFF] - 1 Week ([facility] will call you to arrange a visit) Ambulatory/Diagnostic Orders: Complete Blood Count w/diff [LAB.AMB] Time Frame: 3 Days, Location: None Selected Discharge Disposition: HOME WITH HOME HEALTH SERVICES
[2023-06-07 13:21] VITALS: BMI 30.7
[2023-06-07 15:36] VITALS: BP 156/84; PULSE 62; RESP 17; TEMP 97.3
--- NOTE | 2023-06-07 15:59 | P.PN ---
Subjective Progress Note Date: 06/07/23 I am seeing this patient in new consultation today 06/01/2023 in the intensive care unit after he was transferred for acute respiratory distress and possible aspiration. Patient is a 82-year-old white male with past medical history significant for atrial fibrillation, diabetes mellitus, hyperlipidemia, hypertension, pericardial effusion and prior pericardiocentesis, renal failure with previous renal transplant, prostate cancer, previous urinary tract infection, hypothyroidism. Patient presented to the emergency room yesterday morning complaining of nausea, vomiting, and generalized weakness. This has been ongoing for the last couple weeks. Denies any abdominal pain, hematemesis, constipation, diarrhea, or bloody diarrhea. He did have a fever with a T.max of 103.2 F. He does admit complaints of dysuria and urinary frequency with urgency. Denies any hematuria. Urinalysis was consistent with possible urinary tract infection. Patient's admission chest x-ray showed a right middle lobe infiltrate consistent with community acquired pneumonia. He was originally on 2 L/m nasal cannula when he came in to the ER. Patient was an ER hold for the selective care unit. Last night, he reportedly started to vomit, and then was found to be in some respiratory distress. An A-team was called. There were concerns for possible aspiration, he was temporarily placed on a 15 L nonrebreather. ABG showed a pO2 of 122, pCO2 32, pH of 7.44. He has been started on Zosyn for possible aspiration pneumonia. Also, patient was noted to be in atrial fibrillation with RVR at that time. He was started on a Cardizem infusion at 10 mg/hr. He was admitted to the intensive care unit for these reasons. CBC on a rrival shows WBC count of 13.7, hemoglobin 13.8, hematocrit 22.5, platelets 88,000. BMP on arrival showed a sodium 136, potassium 4, chloride 104, serum bicarb 18, BUN 32, creatinine 1.4, glucose 105. Lactic acid 2.7, down to 1.3. Troponins elevated at 0.059 and 0.09. Negative for influenza, RSV, COVID-19. Urine Legionella antigen negative. Currently, the patient is sitting up in bed, on 6 L per nasal cannula, in no acute respiratory distress. Denies any further nausea or vomiting. Abdomen does not appear acute. Heart rhythm appears to be normal sinus with a first degree AV block on the bedside monitor, will obtain an EKG to confirm. Cardizem could probably be stopped. Patient denies any chest pain, palpitations, lightheadedness or syncope. Blood pressures normotensive, not requiring any vasopressors. Normal saline infusing at 60 ML's per hour. Patient does have history of renal transplant. He did have a CT angiogram of the bilateral lower extremities. He is apparently having a lower extremity weakness and pain. Denies any significant intermittent claudication symptoms. CT angiogram showed occlusion of the distal superficial femoral artery with short segment reconstitution of the proximal popliteal artery which then occludes. There is no definitive flow within the bilateral anterior tibial, posterior tibial, and peroneal arteries which may be secondary to occlusion versus poor arterial bolus. Patient denies any significant lower extremity pain. Bilateral feet are warm with diminished doppler pedal pulses. Patient will be monitored in the intensive care unit at least overnight. The patient is seen today 06/02/2023 in follow-up in the intensive care unit. He is currently awake and alert in no acute distress. Resting comfortably in bed. Maintaining O2 saturations in the 90s on 2 L/m per nasal cannula. He is afebrile. Hemodynamically stable. Ultrasound of the kidneys and bladder revealed no hydronephrosis or nephrolithiasis. Left pelvic transplant kidney with a simple cyst. Atrophy of both [place] kidneys. Blood cultures are pending. Sodium 139. Potassium 4.1. Bicarb 23. BUN 37. Creatinine 1.99. Glucose 105. He remains on Zosyn. Heparin for DVT prophylaxis. The patient is seen today 06/03/2023 in follow-up on the regular medical floor. He is currently sitting up in bed. Awake and alert in no acute distress. He is breathing easier today compared to yesterday. Feeling a bit stronger. Maintaining O2 saturations in the mid 90s on 2 L/m per nasal cannula. He is afebrile. Follow-up chest x-ray revealed decreasing left basilar patchy airspace opacity. Blood sugar 181. He is continued on Zosyn. Heparin for DVT prophylaxis. The patient is seen today 06/04/2023 in follow-up on the regular medical floor. He is awake and alert in no acute distress. Denies any worsening shortness of breath, cough or congestion. He is maintaining O2 saturations in the 90s on 2 L/m per nasal cannula. He has normal saline at KVO. Urine culture reveals no growth. Blood cultures revealed no growth. White count 9.0. Hemoglobin 12.2. Platelets 92,000. Sodium 141. Potassium 3.7. Bicarb 21. BUN 29. Creatinine 1.42. Glucose 102. He is continued on antibiotics in the form of Zosyn. Heparin for DVT prophylaxis. on today's evaluation of 06/05/2023, the patient is being seen for a follow-up. This is an 82-year-old male patient was admitted for respiratory distress, possible aspiration and shortness of breath. The patient has multiple other comorbidities including diabetes mellitus, hypertension, hyperlipidemia, A. fib, prostate cancer, previous history of kidney transplantation and hypothyroidism. The patient has also peripheral vascular disease. CT angiogram at the time of admission was noted.the patient is currently being treated for an acute COPD exacerbation. Note that his vital screening including RSV, Covid 19 and influenza were all negative. The patientis currently on 2 L of Oxymizer nasal cannula. The patientis bringing up some minimal amount of sputum. No nausea or vomiting or abdominal pain. the WBC count is at 8.4 with a hemoglobin 11.5, BUN is at 23 with a creatinine 1.5 and a sodium level is at 145 and a potassium level is at 3.2. On today's evaluation of 06/06/2023, I'm seeing the patient for a follow-up. The patient is feeling slightly improved. No new complaints and the patient is being treated for an acute COPD/pneumonia. Patient is currently on prednisone 10 mg by mouth daily. He is also on chronic immunosuppression regarding his previous kidney transplantation. The patient remains on bronchodilators. The lites echoes at 7.5 with a hemoglobin 11.5, creatinine is stable at 1.4 with a BUN of 21. Sodium level is at 143. The patient remains on 2 L of oxygen by na miguel cannula with a pulse ox of 98%. He is afebrile. Breathing is nonlabored.. The patient was receiving IV Zosyn per ID and the most recent chest x-ray from 06/02/2023 that showed no acute abnormalities. On 06/07/2023, seeing the patient for a follow-up. The patient is post renal transportation and the patient is demented and immunosuppression with a combination of Prograf and CellCept and prednisone. The patient is currently being treated for an acute hypoxic respiratory failure probably related to aspiration pneumonia. The sputum sample showed Barbara albicans. Urine culture was negative. Blood culture was also negative. He is currently on IV Zosyn. He is afebrile. No blood work from today. Blood work from yesterday was essentially stable and the creatinine was at 1.4 with a BUN of 21 and his white cell count was at 7.5. The patient is afebrile. He is currently on room air oxygen with a pulse ox of 98%. His blood pressure is slightly elevated and the patient is being monitored regarding his blood pressure. His current on accommodation of metoprolol and hydralazine. Objective - Vital Signs Vital signs: Vital Signs Temp 97.6 F 06/07/23 07:12 Pulse 56 L 06/07/23 08:00 Resp 19 06/07/23 08:00 BP 195/98 06/07/23 11:08 Pulse Ox 97 06/07/23 09:03 FiO2 Intake & Output 06/06/23 06/07/23 06/07/23 18:59 06:59 18:59 Output Total 1200 400 Balance -1200 -400 Output: Urine 900 400 Post Void Residual 300 Other: Voiding Method Urinal Urinal Urinal # Bowel Movements 3 - Exam GENERAL EXAM: Awake, very pleasant 82-year-old male patient, on room air oxygen without drift to distress HEAD: Normocephalic. EYES: Normal reaction of pupils, equal size. NOSE: Clear with pink turbinates. THROAT: No erythema or exudates. NECK: No masses, no JVD. CHEST: No chest wall deformity. LUNGS: Equal air entry with faint crackles in the left base. CVS: S1 and S2 normal with no audible murmur, regular rhythm. ABDOMEN: No hepatosplenomegaly, normal bowel sounds, no guarding or rigidity. SPINE: No scoliosis or deformity SKIN: No rashes CENTRAL NERVOUS SYSTEM: No focal deficits, tone is normal in all 4 extremities. EXTREMITIES: There is no peripheral edema. No clubbing, no cyanosis. Peripheral pulses are intact. - Labs CBC & Chem 7: 06/06/23 05:52 06/06/23 05:52 Labs: Abnormal Lab Results - Last 24 Hours (Table) 06/06/23 06/06/23 06/06/23 Range/Units 11:46 16:27 20:30 POC Glucose (mg/dL) 234 H 292 H 202 H (70-110) mg/dL 06/07/23 Range/Units 05:38 POC Glucose (mg/dL) 150 H (70-110) mg/dL Microbiology - Last 24 Hours (Table) 06/04/23 08:43 Gram Stain - Final Sputum Sputum Culture - Final Barbara albicans Assessment and Plan Plan: Acute hypoxemic respiratory failure, possibly related aspiration pneumonia. Follow-up chest x-ray showing improvement. Negative for influenza, RSV, COVID- 19. Urine Legionella antigen negative.the patient is improved and the patient is currently on room and oxygen and the breathing is nonlabored Suspected pneumonia/urinary tract infection, urine cultures were negative and the patient remains on IV Zosyn, most recent chest x-ray from 06/02/2023 was showing diminished left basilar patchy airspace opacity. Leukocytosis, secondary to above, improving Metabolic anion gap acidosis, recovered Atrial fibrillation with rapid ventricular rate, currently in normal sinus rhythm with first-degree AV block Elevated troponins, likely related supplies/demand mismatch and hypoxia Nausea and vomiting, improved Thrombocytopenia, chronic, improving History of renal transplant, currently on Prograf, CellCept, and prednisone Chronic kidney disease stage III Diabetes mellitus, insulin independent, complicated with diabetic neuropathy History of prostate cancer Peripheral arterial disease Hypothyroidism Obesity with BMI of 30.4 kg/m Hypertension Plan: Control of blood pressure the patient is currently on metoprolol and hydralazine Patient is currently on room air oxygen Antibiotics per ID, switch to orals Pulmonary status is stable Patient is currently on room air oxygen does not seem to need home O2 Continue immunosuppression treatment Labs are stable from yesterday
[2023-06-07] MEDS ORDERED: hydrALAZINE HCL 50 MG TAB PO SCH (16:00)
[2023-06-07 16:06] LABS: Glucose,Whole Blood 231 mg/dL (70-110)
== END 2023-06-07 16:22 | disposition home health service (06) | DRG 871 ==
LOC: EC 05:47 → 6NMEDSUR 09:26 → OBSVTOIN 09:27 → 3SCARD 10:07 → 2SICU 20:36 → 4SSUR 06-02 18:53
PROVIDERS: ADMIT Family Medicine; ATTEND Family Medicine
DX: A41.9 Sepsis, unspecified organism (principal); J69.0 Pneumonitis due to inhalation of food and vomit; J96.01 Acute respiratory failure with hypoxia; N17.0 Acute kidney failure with tubular necrosis; I48.19 Other persistent atrial fibrillation; I48.92 Unspecified atrial flutter; J44.1 Chronic obstructive pulmonary disease with (acute) exacerbation; D84.821 Immunodeficiency due to drugs; N10 Acute pyelonephritis; N39.0 Urinary tract infection, site not specified; E87.20 Acidosis, unspecified; B37.0 Candidal stomatitis; Z94.0 Kidney transplant status; I70.202 Unspecified atherosclerosis of native arteries of extremities, left leg; C61 Malignant neoplasm of prostate; D69.6 Thrombocytopenia, unspecified; E11.40 Type 2 diabetes mellitus with diabetic neuropathy, unspecified; E11.22 Type 2 diabetes mellitus with diabetic chronic kidney disease; E11.51 Type 2 diabetes mellitus with diabetic peripheral angiopathy without gangrene; N18.31 Chronic kidney disease, stage 3a; R65.20 Severe sepsis without septic shock; Z79.4 Long term (current) use of insulin; I13.10 Hypertensive heart and chronic kidney disease without heart failure, with stage 1 through stage 4 chronic kidney disease, or unspecified chronic kidney disease; Z20.822 Contact with and (suspected) exposure to COVID-19; E05.90 Thyrotoxicosis, unspecified without thyrotoxic crisis or storm; E03.9 Hypothyroidism, unspecified; E66.9 Obesity, unspecified; F32.A Depression, unspecified; E78.5 Hyperlipidemia, unspecified; H91.90 Unspecified hearing loss, unspecified ear; I44.0 Atrioventricular block, first degree; E87.6 Hypokalemia; T50.2X5A Adverse effect of carbonic-anhydrase inhibitors, benzothiadiazides and other diuretics, initial encounter; E83.42 Hypomagnesemia; N28.1 Cyst of kidney, acquired; R79.89 Other specified abnormal findings of blood chemistry; E87.70 Fluid overload, unspecified; G89.29 Other chronic pain; M54.9 Dorsalgia, unspecified; R33.9 Retention of urine, unspecified; R29.6 Repeated falls; F41.9 Anxiety disorder, unspecified; I95.1 Orthostatic hypotension; Z91.81 History of falling; Z68.30 Body mass index [BMI] 30.0-30.9, adult; Z87.440 Personal history of urinary (tract) infections; Z86.12 Personal history of poliomyelitis; Z79.899 Other long term (current) drug therapy; Z79.890 Hormone replacement therapy; Z79.82 Long term (current) use of aspirin; Z79.624 Long term (current) use of inhibitors of nucleotide synthesis; Z88.5 Allergy status to narcotic agent; Z79.52 Long term (current) use of systemic steroids; Z95.1 Presence of aortocoronary bypass graft; Z86.79 Personal history of other diseases of the circulatory system
CPT/HCPCS: 36415; 36600; 51798; 71045; 71046; 76770; 80048; 80053; 80197; 81001; 82805; 83036; 83605; 83735; 84145; 84484; 85025; 85027; 85610; 85730; 87040; 87070; 87086; 87205; 87324; 87449; 87636; 93005; 93923; 94760; 96361; 96365; 96366; 96367; 96375; 99285

== ENCOUNTER 2023-08-04 09:59 | Inpatient (IN) | payer MEDICARE ==
[2023-08-04] MEDS ORDERED: SODIUM CHLORIDE 0.9% 1,000 ML IV STA (10:14)
[2023-08-04] MEDS ORDERED: ACETAMINOPHEN IV (For NPO) 1,000 MG in EMPTY BAG 1 BAG IVPB STA (10:14)
[2023-08-04] MEDS ORDERED: ONDANSETRON 4 MG/2 ML VIAL IVP STA (10:44)
[2023-08-04 10:52] LABS: ALT 23 U/L (4-49); AST 28 U/L (17-59); African American GFR (CKD) 46 (>60 ml/min/1.73 sqM); Albumin 3.4 g/dL (3.5-5.0); Alkaline Phosphatase 78 U/L (38-126); Amylase 51 U/L (30-110); Anion Gap 18 mmol/L; Blood Urea Nitrogen 39 mg/dL (9-20); Calcium 8.4 mg/dL (8.4-10.2); Carbon Dioxide 18 mmol/L (22-30); Chloride 102 mmol/L (98-107); Glucose 105 mg/dL (74-99); Lipase 114 U/L (23-300); Non-African American GFR(CKD) 39 (>60 ml/min/1.73 sqM); Potassium 3.8 mmol/L (3.5-5.1); Sodium 138 mmol/L (137-145); Total Bilirubin 0.8 mg/dL (0.2-1.3); Total Protein 5.5 g/dL (6.3-8.2)
[2023-08-04 11:03] LABS: Basophils % (A) 0 %; Eosinophils # (A) 0.1 k/uL (0-0.7); Eosinophils % (A) 1 %; HCT 35.3 % (39.0-53.0); HGB 11.5 gm/dL (13.0-17.5); Hypochromasia Slight; Lymphocytes # (A) 0.7 k/uL (1.0-4.8); Lymphocytes % (A) 6 %; MCH 26.5 pg (25.0-35.0); MCHC 32.7 g/dL (31.0-37.0); Mean Platelet Volume 8.1; Monocytes # (A) 0.3 k/uL (0-1.0); Monocytes % (A) 3 %; Neutrophils # (A) 10.3 k/uL (1.3-7.7); Neutrophils % (A) 90 %; Platelet Count 307 k/uL (150-450); RBC 4.35 m/uL (4.30-5.90); RDW 15.6 % (11.5-15.5); WBC 11.5 k/uL (3.8-10.6)
--- NOTE | 2023-08-04 11:16 | ED ---
Nausea/Vomiting/Diarrhea HPI - General Chief complaint: Nausea/Vomiting/Diarrhea Stated complaint: SOB FEVER Time Seen by Provider: 08/04/23 10:12 Source: patient, EMS, RN notes reviewed Mode of arrival: EMS Limitations: no limitations - History of Present Illness Initial comments: This is an 82-year-old male who presents to the emergency department for nausea and vomiting. Patient was discharged from this facility 4 days ago after being admitted for pneumonia. States that he has felt better since going home other than occasional intermittent shortness of breath. When he woke up this morning, he started to have ongoing nausea and vomiting. This prompted his family to call EMS. Patient noted be febrile on arrival. Unsure if he measured any f karin at home. Denies any associated abdominal pain. When his arrived, she states that since being discharged 4 days ago he was recovering well, however last night he started shaking and becoming increasingly confused. This morning the confusion seemed to worsen and he then started vomiting profusely. She does also note that he had been complaining of burning with urination a couple of days ago as well. MD complaint: nausea, vomiting - Related Data Home Medications Medication Instructions Recorded Confirmed Finasteride [Proscar] 5 mg PO DAILY 02/09/17 08/04/23 Tamsulosin HCl [Flomax] 0.4 mg PO DAILY 02/09/17 08/04/23 Multivitamins, Thera [Multivitamin 1 tab PO DAILY 12/31/18 08/04/23 (formulary)] Vit C/E/Zn/Coppr/Lutein/Zeaxan 1 cap PO HS 12/18/19 08/04/23 [Preservision Areds 2 Softgel] Pantoprazole [Protonix] 40 mg PO DAILY 12/28/19 08/04/23 Tacrolimus [Prograf] 1 mg PO BID 04/03/20 08/04/23 mycophenolate mofetiL [Cellcept] 250 mg PO BID 04/03/20 08/04/23 DULoxetine HCL [Cymbalta] 120 mg PO DAILY 12/01/20 08/04/23 Levothyroxine Sodium [Synthroid] 75 mcg PO DAILY 12/01/20 08/04/23 Aspirin 81 mg PO DAILY 07/12/21 08/04/23 Gabapentin 300 mg PO HS 07/12/21 08/04/23 QUEtiapine [SEROquel] 100 mg PO HS 07/12/21 08/04/23 Rosuvastatin Calcium [Crestor] 5 mg PO HS 07/12/21 08/04/23 Sodium Bicarbonate Tab 650 mg PO BID 07/12/21 08/04/23 rOPINIRole HCL [Requip] 1 mg PO HS 09/02/21 08/04/23 Insulin Glargine/Lixisenatide 30 units SQ DAILY 12/01/21 08/04/23 [Soliqua 100 Unit-33 Mcg/ml Pen] Eltrombopag Olamine [Promacta] 12.5 mg PO DAILY@0700 05/31/23 08/04/23 Insulin Lispro [humaLOG Kwikpen] See Protocol SQ AC-TID 05/31/23 08/04/23 Mirabegron [Myrbetriq] 50 mg PO DAILY 05/31/23 08/04/23 predniSONE 10 mg PO DAILY 05/31/23 08/04/23 Previous Rx's Medication Instructions Recorded Metoprolol Tartrate [Lopressor] 50 mg PO BID #60 tab 06/06/23 Acetaminophen Tab [Tylenol] 500 mg PO Q6HR PRN tab 06/07/23 Loperamide [Imodium] 2 mg PO QID PRN cap 06/07/23 Magnesium Oxide [Mag-Ox] 400 mg PO DAILY tab 06/07/23 hydrALAZINE HCL [Apresoline] 100 mg PO TID #90 tab 06/07/23 Furosemide [Lasix] 20 mg PO BID@0900,1600 #10 tab 07/31/23 cefUROXime axetiL [Ceftin] 500 mg PO BID 5 Days #10 tab 07/31/23 Allergies Allergy/AdvReac Type Severity Reaction Status Date / Time morphine Allergy Severe Itching Verified 08/04/23 15:43 Review of Systems ROS Statement: Those systems with pertinent positive or pertinent negative responses have been documented in the HPI. ROS Other: All systems not noted in ROS Statement are negative. 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." Hard of hearing, LOW PLATELETS, History of Any Multi-Drug Resistant Organisms: None Reported Past Surgical History: Unable to Obtain, Orthopedic Surgery Additional Past Surgical History / Comment(s): 12/02/21, KYPHOPLASTY AND BX (NEG). Leftkidney transplant 2002, parathyroid surgery, arthroscopy knee surgery, pericardiocentesis, cancer removed from ear, Past Anesthesia/Blood Transfusion Reactions: No Reported Reaction Past Psychological History: Anxiety, Depression Smoking Status: Never smoker Past Alcohol Use History: None Reported Past Drug Use History: None Reported - Past Family History Father Family Medical History: Deep Vein Thrombosis (DVT) Son(s) Family Medical History: Cancer Additional Family Medical History / Comment(s): Skin cancer. Mother Family Medical History: Cancer Additional Family Medical History / Comment(s): . General Exam Limitations: no limitations General appearance: alert, in no apparent distress Head exam: Present: atraumatic, normocephalic, normal inspection Respiratory exam: Present: normal lung sounds bilaterally. Absent: respiratory distress, wheezes, rales, rhonchi, stridor Cardiovascular Exam: Present: regular rate, normal rhythm, normal heart sounds. Absent: systolic murmur, diastolic murmur, rubs, gallop, clicks GI/Abdominal exam: Present: soft, normal bowel sounds. Absent: distended, tenderness, guarding, rebound, rigid Neurological exam: Present: alert, oriented X3, CN II-XII intact Psychiatric exam: Present: normal affect, normal mood Skin exam: Present: warm, dry, intact, normal color. Absent: rash Course Vital Signs 08/04/23 08/04/23 08/04/23 10:07 11:34 15:05 Temperature 100.9 F H 100.2 F H 98.3 F Pulse Rate 90 81 Respiratory 18 18 Rate Blood Pressure 154/87 103/58 O2 Sat by Pulse 96 Oximetry 08/04/23 16:00 Temperature 98.3 F Pulse Rate Respiratory Rate Blood Pressure O2 Sat by Pulse Oximetry Medical Decision Making - Medical Decision Making This is an 82 year old male who presents to the emergency department for nausea and vomiting. Was pt. sent in by a medical professional or institution? @ -No Did you speak to anyone other than the patient for history? @ -His provided the information about the patient having episodes of confusion. Did you review nursing and triage notes? @ -Yes, and I agree, it is accurate with regards to the patient's symptoms. Were old charts reviewed? @ -No Differential Diagnosis? @ -Differential Nausea and Vomiting: Gastroenteritis, cholecystitis, appendicitis, pancreatitis, migraine, benign positional vertigo, food borne illness, pyelonephritis, irritable bowel syndrome, influenza, Covid, GERD, incarcerated hernia, intestinal obstruction, this is not meant to be an all-inclusive list. EKG interpreted by me (3pts min.)? @ -EKG interpreted by me demonstrating the following: Atrial fibrillation. Ventricular rate 96 bpm, QRS duration 82 ms, QTC 431 ms. X-rays interpreted by me (1pt min.)? @ -Chest x-ray obtained. My interpretation identifies a right lower lobe infiltrate. CT interpreted by me (1pt min.)? @ -Not obtained U/S interpreted by me (1pt. min.)? @ -Not obtained What testing was considered but not performed? (CT, X-rays, U/S, labs)? Why? @ -None What meds were considered but not given? Why? @ -None Did you discuss the management of the patient with other professionals? @ -Yes, Dr. Borges, who accepts the patient for admission. Did you reconcile home meds? @ -Yes Was smoking cessation discussed for >3mins.? @ -No Was critical care preformed (if so, how long)? @ -No Were there social determinants of health that impacted care today? How? (Homelessness, low income, unemployed, alcoholism, drug addiction, transporta tion, low edu. Level, literacy, decrease access to med. care, retirement, rehab)? @ -No Was there de-escalation of care discussed even if they declined? (Discuss DNR or withdrawal of care, Hospice)? @ -No What co-morbidities impacted this encounter? (DM, HTN, Smoking, COPD, CAD, Cancer, CVA, Hep., AIDS, mental health diagnosis, sleep apnea, morbid obesity)? @ -DM, HLD, HTN, a-fib, renal disease Was patient admitted / discharged? @ -Admitted. Lab work obtained revealing leukocytosis and slightly decreased renal function when compared with prior. Troponin also elevated at 0.073, however this is elevated less than it had been when he was admitted 4 days ago. He was febrile on arrival with a temperature of 100.9F and treated with Ofirmev. Nausea and vomiting were controlled with zofran. Chest x-ray obtained demonstrating worsening right lower lobe pneumonia and urinalysis is also concerning for infection. Urine sent for culture. COVID, influenza, and RSV test ing were negative. Patient started on pneumonia protocol with Zosyn and Azithromycin (as opposed to ceftriaxone and azithromycin) due to recent inpatient antibiotic use. This should provide coverage for pneumonia and UTI. Blood and sputum cultures were obtained as well. Serial troponins ordered. Con sult placed for infectious disease and pulmonology. Undiagnosed new problem with uncertain prognosis? @ -None Drug Therapy requiring intensive monitoring for toxicity (Heparin, Nitro, Insulin, Cardizem)? @ -None Were any procedures done? @ -None Diagnosis/symptom? @ -Pneumonia Acute, or Chronic, or Acute on Chronic? @ -Acute Uncomplicated (without systemic symptoms) or Complicated (systemic symptoms)? @ -Complicated Side effects of treatment? @ -None Exacerbation, Progression, or Severe Exacerbation] @ -Progression Poses a threat to life or bodily function? @ -Yes Diagnosis/symptom? @ -UTI, weakness, N/V Acute, or Chronic, or Acute on Chronic? @ -Acute Uncomplicated (without systemic symptoms) or Complicated (systemic symptoms)? @ -Complicated Side effects of treatment? @ -None Exacerbation, Progression, or Severe Exacerbation] @ -Not applicable Poses a threat to life or bodily function? @ -Yes This case was discussed in detail with the attending ED physician, Dr. Helton. Presentation, findings, and treatment plan discussed in detail as well. - Lab Data Result diagrams: 08/04/23 10:16 08/04/23 10:16 Lab Results 08/04/23 08/04/23 08/04/23 Range/Units 10:16 10:16 10:16 WBC 11.5 H (3.8-10.6) k/uL RBC 4.35 (4.30-5.90) m/uL Hgb 11.5 L (13.0-17.5) gm/dL Hct 35.3 L (39.0-53.0) % MCV 81.0 (80.0-100.0) fL MCH 26.5 (25.0-35.0) pg MCHC 32.7 (31.0-37.0) g/dL RDW 15.6 H (11.5-15.5) % Plt Count 307 (150-450) k/uL MPV 8.1 Neutrophils % 90 % Lymphocytes % 6 % Monocytes % 3 % Eosinophils % 1 % Basophils % 0 % Neutrophils # 10.3 H (1.3-7.7) k/uL Lymphocytes # 0.7 L (1.0-4.8) k/uL Monocytes # 0.3 (0-1.0) k/uL Eosinophils # 0.1 (0-0.7) k/uL Basophils # 0.0 (0-0.2) k/uL Hypochromasia Slight Sodium 138 (137-145) mmol/L Potassium 3.8 (3.5-5.1) mmol/L Chloride 102 (98-107) mmol/L Carbon Dioxide 18 L (22-30) mmol/L Anion Gap 18 mmol/L BUN 39 H (9-20) mg/dL Creatinine 1.62 H (0.66-1.25) mg/dL Est GFR (CKD-EPI)AfAm 46 (>60 ml/min/1.73 sqM) Est GFR (CKD-EPI)NonAf 39 (>60 ml/min/1.73 sqM) Glucose 105 H (74-99) mg/dL Calcium 8.4 (8.4-10.2) mg/dL Total Bilirubin 0.8 (0.2-1.3) mg/dL AST 28 (17-59) U/L ALT 23 (4-49) U/L Alkaline Phosphatase 78 (38-126) U/L Troponin I (0.000-0.034) ng/mL Total Protein 5.5 L (6.3-8.2) g/dL Albumin 3.4 L (3.5-5.0) g/dL Amylase 51 (30-110) U/L Lipase 114 (23-300) U/L Urine Color Urine Appearance (Clear) Urine pH (5.0-8.0) Ur Specific Lititz (1.001-1.035) Urine Protein (Negative) Urine Glucose (UA) (Negative) Urine Ketones (Negative) Urine Blood (Negative) Urine Nitrite (Negative) Urine Bilirubin (Negative) Urine Urobilinogen (<2.0) mg/dL Ur Leukocyte Esterase (Negative) Urine RBC (0-5) /hpf Urine WBC (0-5) /hpf Urine WBC Clumps (None) /hpf Ur Squamous Epith Cells (0-4) /hpf Urine Bacteria (None) /hpf Influenza Type A (PCR) Not Detected (Not Detectd) Influenza Type B (PCR) Not Detected (Not Detectd) RSV (PCR) Not Detected (Not Detectd) SARS-CoV-2 (PCR) Not Detected (Not Detectd) 08/04/23 08/04/23 Range/Units 13:30 13:30 WBC (3.8-10.6) k/uL RBC (4.30-5.90) m/uL Hgb (13.0-17.5) gm/dL Hct (39.0-53.0) % MCV (80.0-100.0) fL MCH (25.0-35.0) pg MCHC (31.0-37.0) g/dL RDW (11.5-15.5) % Plt Count (150-450) k/uL MPV Neutrophils % % Lymphocytes % % Monocytes % % Eosinophils % % Basophils % % Neutrophils # (1.3-7.7) k/uL Lymphocytes # (1.0-4.8) k/uL Monocytes # (0-1.0) k/uL Eosinophils # (0-0.7) k/uL Basophils # (0-0.2) k/uL Hypochromasia Sodium (137-145) mmol/L Potassium (3.5-5.1) mmol/L Chloride (98-107) mmol/L Carbon Dioxide (22-30) mmol/L Anion Gap mmol/L BUN (9-20) mg/dL Creatinine (0.66-1.25) mg/dL Est GFR (CKD-EPI)AfAm (>60 ml/min/1.73 sqM) Est GFR (CKD-EPI)NonAf (>60 ml/min/1.73 sqM) Glucose (74-99) mg/dL Calcium (8.4-10.2) mg/dL Total Bilirubin (0.2-1.3) mg/dL AST (17-59) U/L ALT (4-49) U/L Alkaline Phosphatase (38-126) U/L Troponin I 0.073 H* (0.000-0.034) ng/mL Total Protein (6.3-8.2) g/dL Albumin (3.5-5.0) g/dL Amylase (30-110) U/L Lipase (23-300) U/L Urine Color Yellow Urine Appearance Turbid (Clear) Urine pH 6.5 (5.0-8.0) Ur Specific Lititz 1.017 (1.001-1.035) Urine Protein 2+ H (Negative) Urine Glucose (UA) Negative (Negative) Urine Ketones Negative (Negative) Urine Blood Moderate H (Negative) Urine Nitrite Negative (Negative) Urine Bilirubin Negative (Negative) Urine Urobilinogen <2.0 (<2.0) mg/dL Ur Leukocyte Esterase Large H (Negative) Urine RBC 62 H (0-5) /hpf Urine WBC >182 H (0-5) /hpf Urine WBC Clumps Many H (None) /hpf Ur Squamous Epith Cells 2 (0-4) /hpf Urine Bacteria Few H (None) /hpf Influenza Type A (PCR) (Not Detectd) Influenza Type B (PCR) (Not Detectd) RSV (PCR) (Not Detectd) SARS-CoV-2 (PCR) (Not Detectd) - Radiology Data Radiology results: report reviewed, image reviewed Disposition Clinical Impression: UTI (urinary tract infection), Pneumonia, Weakness, Nausea and vomiting Disposition: ADMITTED IP TO THIS [facility] Time of Disposition: 14:45
--- NOTE | 2023-08-04 11:56 | XR ---
EXAMINATION TYPE: XR chest 2V DATE OF EXAM: 08/04/2023 COMPARISON: 07/31/2023 INDICATION: Difficulty in breathing TECHNIQUE: Frontal and lateral views of the chest are obtained. FINDINGS: The heart size is normal. The pulmonary vasculature is normal. Patchy infiltrate at the right base. Correlate for pneumonia. Posterior pleural effusion is present o n the lateral projection.. IMPRESSION: 1. Right lower lobe infiltrate, worsening. Correlate for pneumonia. 2. Small posterior pleural effusions
[2023-08-04] MEDS ORDERED: AZITHROMYCIN 500 MG in SODIUM CHLORIDE 0.9% 250 ML IVPB STA (13:10)
[2023-08-04] MEDS ORDERED: PIPERACILLIN-TAZOBACTAM 3.375 GM in SODIUM CHLORIDE 0.9% 100 ML IVPB STA (13:10)
[2023-08-04] MEDS ORDERED: PNEUMONIA PROTOCOL UTILIZED 1 EACH MISC PO PRN (13:10)
[2023-08-04 14:01] LABS: Appearance,Urine Turbid (Clear); Bacteria,Urine Few /hpf; Bilirubin,Urine Negative (Negative); Blood,Urine Moderate (Negative); Color,Urine Yellow; Glucose,Urine (UA) Negative (Negative); Ketones,Urine Negative (Negative); Leukocyte Esterase,Urine Large (Negative); Nitrite,Urine Negative (Negative); PH, Urine 6.5 (5.0-8.0); Protein,Urine 2+ (Negative); RBC,Urine 62 /hpf (0-5); Specific Gravity,Urine 1.017 (1.001-1.035); Squamous Epithelial Cell,Urine 2 /hpf (0-4); Urobilinogen,Urine <2.0 mg/dL (<2.0); WBC,Urine >182 /hpf (0-5)
[2023-08-04] MEDS ORDERED: ACETAMINOPHEN TAB 325 MG TAB PO PRN (15:29)
[2023-08-04] MEDS ORDERED: NALOXONE 0.4 MG/ML 1 ML VIAL IV PRN (15:29)
[2023-08-04] MEDS ORDERED: ONDANSETRON 4 MG/2 ML VIAL IVP PRN (15:29)
[2023-08-04] MEDS ORDERED: HYDROcodone/APAP 5-325MG 1 EACH TAB PO PRN (15:29)
[2023-08-04] MEDS ORDERED: LOPERAMIDE 2 MG CAP PO PRN (16:57)
[2023-08-04] MEDS ORDERED: ACETAMINOPHEN TAB 500 MG TAB PO PRN (16:57)
[2023-08-04 19:03] LABS: Glucose,Whole Blood 123 mg/dL (70-110)
[2023-08-04] MEDS: GABAPENTIN 300 MG CAP PO SCH (22:06)
[2023-08-04] MEDS: SODIUM BICARBONATE TAB 650 MG TAB PO SCH (22:07)
[2023-08-04] MEDS: hydrALAZINE HCL 50 MG TAB PO SCH (22:07)
[2023-08-04] MEDS: METOPROLOL TARTRATE 50 MG TAB PO SCH (22:07)
[2023-08-04] MEDS: ATORVASTATIN 10 MG TAB PO SCH (22:07)
[2023-08-04] MEDS: PIPERACILLIN-TAZOBACTAM 3.375 GM in SODIUM CHLORIDE 0.9% 100 ML IVPB SCH (22:07)
[2023-08-05] MEDS: VIT A,C & E-LUTEIN-MINERALS 1 EACH TAB PO SCH ×2 (00:15→22:21)
[2023-08-05] MEDS: TACROLIMUS 1 MG CAP PO SCH ×3 (00:15→22:21)
[2023-08-05] MEDS: QUEtiapine 100 MG TAB PO SCH ×2 (00:15→22:20)
[2023-08-05 06:19] LABS: Glucose,Whole Blood 199 mg/dL (70-110)
[2023-08-05] MEDS: ELTROMBOPAG OLAMINE PO SCH (06:24)
[2023-08-05] MEDS: LEVOTHYROXINE 75 MCG TAB PO SCH (06:25)
[2023-08-05] MEDS: PANTOPRAZOLE 40 MG TABLET PO SCH (06:25)
[2023-08-05] MEDS: PIPERACILLIN-TAZOBACTAM 3.375 GM in SODIUM CHLORIDE 0.9% 100 ML IVPB SCH ×3 (06:25→22:21)
[2023-08-05] MEDS: DULoxetine HCL 60 MG CAPSULE.DR PO SCH (09:12)
[2023-08-05] MEDS: MULTIVITAMINS, THERA 1 EACH TAB PO SCH (09:12)
[2023-08-05] MEDS: SODIUM BICARBONATE TAB 650 MG TAB PO SCH ×2 (09:12→22:20)
[2023-08-05] MEDS: FUROSEMIDE 20 MG TAB PO SCH ×2 (09:12→16:58)
[2023-08-05] MEDS: METOPROLOL TARTRATE 50 MG TAB PO SCH ×2 (09:12→22:20)
[2023-08-05] MEDS: TAMSULOSIN 0.4 MG CAP.ER.24H PO SCH (09:12)
[2023-08-05] MEDS: MAGNESIUM OXIDE 400 MG TAB PO SCH (09:12)
[2023-08-05] MEDS: FINASTERIDE 5 MG TAB PO SCH (09:12)
[2023-08-05] MEDS: ASPIRIN 81 MG PO SCH (09:12)
[2023-08-05] MEDS: hydrALAZINE HCL 50 MG TAB PO SCH ×3 (09:13→23:58)
[2023-08-05] MEDS: Mirabegron [Myrbetriq] 50 MG Tab.Er.24h PO SCH (09:14)
[2023-08-05 11:26] LABS: Glucose,Whole Blood 217 mg/dL (70-110)
--- NOTE | 2023-08-05 12:32 | P.HPIM ---
History of Present Illness This is a pleasant 82 years old male with multiple medical problems including Atrial Fibrillation, Diabetes Mellitus, Hyperlipidemia, Hypertension, back pain, "slow growing cancer of prostate, being watched by Dr Dasilva." Hard of hearing, s/p KYPHOPLASTY AND BX (NEG). Leftkidney transplant 2002, parathyroid surgery, Anxiety, Depression Patient history taking was limited by memory problem and there is no family member at bedside. Patient was admitted with provisional diagnosis of right pneumonia. Recommended that he came with nausea vomiting but when I asked the patient he says he came to the hospital because of pain with urination for the last 3 days with associated increased frequency. In the beginning he told me he has suprapubic pain but later on he said he does not have, most likely related to his memory problem. However currently patient has no suprapubic or flank tenderness. To me he denies any dyspnea or chest pain. He complained from occasional coughing with clear phlegm for the last 2-3 days. Also he looks drowsy and mild weakness. He is able to walk using a walker at home. He denies any abdominal pain or vomiting or diarrhea for me. No headache dizz iness weakness or numbness. Patient states that he felt 2-3 days ago associated with syncope. Patient states that he was on the floor for a few seconds, he could not remember if he went on salt himself but there is no tongue biting. Patient denies using oxygen at home. He uses a walker with walking. He denies smoking alcohol or illicit drugs. He has low-grade fever of 100.2. Trace vitals stable On admission he had leukocytosis of 11.5. Recent CBC is unremarkable. Hemoglobin 11.5. Creatinine 1.6 which is close to baseline of 1.4-1.5. Liver enzymes were unremarkable Troponin was slightly elevated at 0.73. Urine analysis is suspicious for infection Urine culture is pending blood cultures pending Influenza A and type B, RSV, SARS (coronavirus) are and detected EKG showing atrial fibrillation at [address] T changes and QTC 431 Chest x-ray suspicious for right lower lobe infiltrate. Patient is a started on Zithromax and Zosyn on admission with pulmonary and ID consult Review of Systems Review of systems CONSTITUTIONAL: No fever, no malaise, no fatigue. HEENT: No recent visual problems or hearing problems. Denied any sore throat. CARDIOVASCULAR: No orthopnea, PND, no palpitations, no syncope. PULMONARY: No shortness of breath, no cough, no hemoptysis. GASTROINTESTINAL: No diarrhea, no nausea, no vomiting, no abdominal pain. Normoactive bowel sounds. NEUROLOGICAL: No headaches, no weakness, no numbness. HEMATOLOGICAL: Denies any bleeding or petechiae. GENITOURINARY: Denies any burning micturition, frequency, or urgency. MUSCULOSKELETAL/RHEUMATOLOGICAL: Denies any joint pain, swelling, or any muscle pain. ENDOCRINE: Denies any polyuria or polydipsia. 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." Hard of hearing, LOW PLATELETS, History of Any Multi-Drug Resistant Organisms: None Reported Past Surgical History: Unable to Obtain, Orthopedic Surgery Additional Past Surgical History / Comment(s): 12/02/21, KYPHOPLASTY AND BX (NEG). Leftkidney transplant 2002, parathyroid surgery, arthroscopy knee surge ry, pericardiocentesis, cancer removed from ear, Past Anesthesia/Blood Transfusion Reactions: No Reported Reaction Past Psychological History: Anxiety, Depression Additional Psychological History / Comment(s): Pt resides with spouse. Smoking Status: Never smoker Past Alcohol Use History: None Reported Past Drug Use History: None Reported - Past Family History Father Family Medical History: Deep Vein Thrombosis (DVT) Son(s) Family Medical History: Cancer Additional Family Medical History / Comment(s): Skin cancer. Mother Family Medical History: Cancer Additional Family Medical History / Comment(s): . Medications and Allergies Home Medications Medication Instructions Recorded Confirmed Type Finasteride [Proscar] 5 mg PO DAILY 02/09/17 08/04/23 History Tamsulosin HCl [Flomax] 0.4 mg PO DAILY 02/09/17 08/04/23 History Multivitamins, Thera [Multivitamin 1 tab PO DAILY 12/31/18 08/04/23 History (formulary)] Vit C/E/Zn/Coppr/Lutein/Zeaxan 1 cap PO HS 12/18/19 08/04/23 History [Preservision Areds 2 Softgel] Pantoprazole [Protonix] 40 mg PO DAILY 12/28/19 08/04/23 History Tacrolimus [Prograf] 1 mg PO BID 04/03/20 08/04/23 History mycophenolate mofetiL [Cellcept] 250 mg PO BID 04/03/20 08/04/23 History DULoxetine HCL [Cymbalta] 120 mg PO DAILY 12/01/20 08/04/23 History Levothyroxine Sodium [Synthroid] 75 mcg PO DAILY 12/01/20 08/04/23 History Aspirin 81 mg PO DAILY 07/12/21 08/04/23 History Gabapentin 300 mg PO HS 07/12/21 08/04/23 History QUEtiapine [SEROquel] 100 mg PO HS 07/12/21 08/04/23 History Rosuvastatin Calcium [Crestor] 5 mg PO HS 07/12/21 08/04/23 History Sodium Bicarbonate Tab 650 mg PO BID 07/12/21 08/04/23 History rOPINIRole HCL [Requip] 1 mg PO HS 09/02/21 08/04/23 History Insulin Glargine/Lixisenatide 30 units SQ DAILY 12/01/21 08/04/23 History [Soliqua 100 Unit-33 Mcg/ml Pen] Eltrombopag Olamine [Promacta] 12.5 mg PO DAILY@0700 05/31/23 08/04/23 History Insulin Lispro [humaLOG Kwikpen] See Protocol SQ AC-TID 05/31/23 08/04/23 History Mirabegron [Myrbetriq] 50 mg PO DAILY 05/31/23 08/04/23 History predniSONE 10 mg PO DAILY 05/31/23 08/04/23 History Metoprolol Tartrate [Lopressor] 50 mg PO BID #60 tab 06/06/23 08/04/23 Rx Acetaminophen Tab [Tylenol] 500 mg PO Q6HR PRN tab 06/07/23 08/04/23 Rx Loperamide [Imodium] 2 mg PO QID PRN cap 06/07/23 08/04/23 Rx Magnesium Oxide [Mag-Ox] 400 mg PO DAILY tab 06/07/23 08/04/23 Rx hydrALAZINE HCL [Apresoline] 100 mg PO TID #90 tab 06/07/23 08/04/23 Rx Furosemide [Lasix] 20 mg PO BID@0900,1600 #10 tab 07/31/23 08/04/23 Rx cefUROXime axetiL [Ceftin] 500 mg PO BID 5 Days #10 tab 07/31/23 08/04/23 Rx Allergies Allergy/AdvReac Type Severity Reaction Status Date / Time morphine Allergy Severe Itching Verified 08/04/23 15:43 Physical Exam Vitals: Vital Signs Temp Pulse Pulse Resp BP BP Pulse Ox 08/05/23 02:00 18 08/05/23 00:00 101.8 F H 91 22 133/72 98 08/04/23 20:00 98.2 F 95 18 132/68 99 08/04/23 16:00 98.3 F 08/04/23 15:05 98.3 F 08/04/23 11:34 100.2 F H 81 18 103/58 08/04/23 10:07 100.9 F H 90 18 154/87 96 Intake and Output 08/04/23 08/04/23 08/05/23 14:59 22:59 06:59 Other: Voiding Method Urinal Diaper # Voids 1 Weight 90.718 kg 90.718 kg -GENERAL: The patient is alert and oriented x3, slow to respond not in any acute distress. Well developed, well nourished. HEENT: Pupils are round and equally reacting to light. EOMI. No scleral icterus. No conjunctival pallor. Normocephalic, atraumatic. No pharyngeal erythema. No thyromegaly. CARDIOVASCULAR: S1 and S2 present. No murmurs, rubs, or gallops. PULMONARY: Chest is clear to auscultation, no wheezing , no crackles. ABDOMEN: Soft, nontender, nondistended, normoactive bowel sounds. No palpable organomegaly. MUSCULOSKELETAL: No joint swelling or deformity. EXTREMITIES: No cyanosis, clubbing, or pedal edema. NEUROLOGICAL: Gross neurological examination did not reveal any focal deficits. SKIN: No rashes. no petechiae. Results CBC & Chem 7: 08/04/23 10:16 08/04/23 10:16 Labs: Abnormal Lab Results - Last 24 Hours (Table) 08/04/23 08/04/23 08/04/23 Range/Units 10:16 10:16 13:30 WBC 11.5 H (3.8-10.6) k/uL Hgb 11.5 L (13.0-17.5) gm/dL Hct 35.3 L (39.0-53.0) % RDW 15.6 H (11.5-15.5) % Neutrophils # 10.3 H (1.3-7.7) k/uL Lymphocytes # 0.7 L (1.0-4.8) k/uL Carbon Dioxide 18 L (22-30) mmol/L BUN 39 H (9-20) mg/dL Creatinine 1.62 H (0.66-1.25) mg/dL Glucose 105 H (74-99) mg/dL POC Glucose (mg/dL) (70-110) mg/dL Troponin I (0.000-0.034) ng/mL Total Protein 5.5 L (6.3-8.2) g/dL Albumin 3.4 L (3.5-5.0) g/dL Urine Protein 2+ H (Negative) Urine Blood Moderate H (Negative) Ur Leukocyte Esterase Large H (Negative) Urine RBC 62 H (0-5) /hpf Urine WBC >182 H (0-5) /hpf Urine WBC Clumps Many H (None) /hpf Urine Bacteria Few H (None) /hpf 08/04/23 08/04/23 08/04/23 Range/Units 13:30 18:21 19:00 WBC (3.8-10.6) k/uL Hgb (13.0-17.5) gm/dL Hct (39.0-53.0) % RDW (11.5-15.5) % Neutrophils # (1.3-7.7) k/uL Lymphocytes # (1.0-4.8) k/uL Carbon Dioxide (22-30) mmol/L BUN (9-20) mg/dL Creatinine (0.66-1.25) mg/dL Glucose (74-99) mg/dL POC Glucose (mg/dL) 123 H (70-110) mg/dL Troponin I 0.073 H* 0.076 H* (0.000-0.034) ng/mL Total Protein (6.3-8.2) g/dL Albumin (3.5-5.0) g/dL Urine Protein (Negative) Urine Blood (Negative) Ur Leukocyte Esterase (Negative) Urine RBC (0-5) /hpf Urine WBC (0-5) /hpf Urine WBC Clumps (None) /hpf Urine Bacteria (None) /hpf 08/04/23 08/05/23 Range/Units 20:46 06:18 WBC (3.8-10.6) k/uL Hgb (13.0-17.5) gm/dL Hct (39.0-53.0) % RDW (11.5-15.5) % Neutrophils # (1.3-7.7) k/uL Lymphocytes # (1.0-4.8) k/uL Carbon Dioxide (22-30) mmol/L BUN (9-20) mg/dL Creatinine (0.66-1.25) mg/dL Glucose (74-99) mg/dL POC Glucose (mg/dL) 199 H (70-110) mg/dL Troponin I 0.073 H* (0.000-0.034) ng/mL Total Protein (6.3-8.2) g/dL Albumin (3.5-5.0) g/dL Urine Protein (Negative) Urine Blood (Negative) Ur Leukocyte Esterase (Negative) Urine RBC (0-5) /hpf Urine WBC (0-5) /hpf Urine WBC Clumps (None) /hpf Urine Bacteria (None) /hpf Thrombosis Risk Factor Assmnt - Choose All That Apply Any of the Below Risk Factors Present?: Yes Each Factor Represents 1 point: Obesity (BMI >25), Serious lung disease incl. pneumonia (< 1month), Swollen legs (current) Other Risk Factors: Yes Each Risk Factor Represents 3 Points: Age 75 years or older Thrombosis Risk Factor Assessment Total Risk Factor Score: 6 Thrombosis Risk Factor Assessment Level: High Risk Assessment and Plan Assessment: Acute urinary tract infection Recurrent falls with syncope metabolic encephalopathy Right lower lobe infiltrate suspicious for pneumonia, patient with minimal symptoms clinically History of prostate cancer and follow-up with urologist as an outpatient History of left kidney past plans on immunosuppressive therapy Mild sepsis with fever and leukocytosis, present on admission Paroxysmal atrial fibrillation with rate controlled Hypertension Diabetes mellitus Hyperlipidemia Chronic back pain Plan: Continue with antibiotic, currently on Zithromax and Zosyn Check bladder scan Infectious disease consult on pulmonary consult cardiology team consult giving his a fib and syncope Labs and medication were reviewed.. Continue same treatment. Continue with symptomatic treatment. Resume home medication. Monitor labs and vitals. DVT and GI prophylaxis. Further recommendations as per clinical course of the patient DVT prophylaxis: Subcutaneous heparin GI Prophylaxis: Pepcid PT/OT: Pending Prognosis is guarded
--- NOTE | 2023-08-05 12:47 | P.CNPUL ---
History of Present Illness Consult date: 08/05/23 Requesting physician: Dell Borges Reason for consult: dyspnea, cough, COPD, hypoxemia, pneumonia, abnormal CXR/CT Chief complaint: Shortness of breath. History of present illness: Pulmonary consult dated 08/05/2023. 82-year-old male, who presented to the emergency department, August 04, compl aining of nausea, and vomiting. The patient was inpatient here at this hospital, between July 25 in July 31. The patient is readmitted on August 04. He is readmitted with a diagnosis of possible right lower lobe pneumonia. He seen today in room 357. He is on oxygen at 2 L. He is on azithromycin, and Zosyn. He apparently complained of shortness of breath in the emergency department. EMS was called, and they brought him into the ER, on the . He apparently became confused in the emergency department, started shaking. For that reason, he was evaluated, and eventually admitted. Currently laboratory data includes a white count of 1.5, hemoglobin 11.5, hematocrit 35.3, and a lanie telet count of 307,000. Sodium 138, potassium 3.8, chlorides 12, CO2 18, anion gap 18, BUN 39, and creatinine 1.2. Glucose 217. Troponin is 0.073. Urine has 2+ protein, R is positive for leukocyte esterase, 62 RBCs, 182 WBCs, and many WBC clumps. In addition, there are a few bacteria. Viral screen, for influenza, RSV, and coronavirus, was negative. The chest x-ray done on August 04, and my opinion is not much different from the previous x-ray, done on the . One x-ray is more penetrated one is less penetrated. Review of Systems REVIEW OF SYSTEMS: CONSTITUTIONAL: [Negative.] NEUROLOGIC: Confusion. HEENT: [ Negative.] CARDIAC: [Negative.] PULMONARY: Shortness of breath. GI: Nausea and vomiting. : [Negative.] RHEUMATOLOGIC: [ Negative.] IMMUNOLOGIC: [ Negative.] ENDOCRINE: [Negative. ] DERMATOLOGIC: [Negative.] 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." Hard of hearing, LOW PLATELETS, History of Any Multi-Drug Resistant Organisms: None Reported Past Surgical History: Unable to Obtain, Orthopedic Surgery Additional Past Surgical History / Comment(s): 12/02/21, KYPHOPLASTY AND BX (NEG). Leftkidney transplant 2002, parathyroid surgery, arthroscopy knee surgery, pericardiocentesis, cancer removed from ear, Past Anesthesia/Blood Transfusion Reactions: No Reported Reaction Past Psychological History: Anxiety, Depression Additional Psychological History / Comment(s): Pt resides with spouse. Smoking Status: Never smoker Past Alcohol Use History: None Reported Past Drug Use History: None Reported - Past Family History Father Family Medical History: Deep Vein Thrombosis (DVT) Son(s) Family Medical History: Cancer Additional Family Medical History / Comment(s): Skin cancer. Mother Family Medical History: Cancer Additional Family Medical History / Comment(s): . Medications and Allergies Home Medications Medication Instructions Recorded Confirmed Type Finasteride [Proscar] 5 mg PO DAILY 02/09/17 08/04/23 History Tamsulosin HCl [Flomax] 0.4 mg PO DAILY 02/09/17 08/04/23 History Multivitamins, Thera [Multivitamin 1 tab PO DAILY 12/31/18 08/04/23 History (formulary)] Vit C/E/Zn/Coppr/Lutein/Zeaxan 1 cap PO HS 12/18/19 08/04/23 History [Preservision Areds 2 Softgel] Pantoprazole [Protonix] 40 mg PO DAILY 12/28/19 08/04/23 History Tacrolimus [Prograf] 1 mg PO BID 04/03/20 08/04/23 History mycophenolate mofetiL [Cellcept] 250 mg PO BID 04/03/20 08/04/23 History DULoxetine HCL [Cymbalta] 120 mg PO DAILY 12/01/20 08/04/23 History Levothyroxine Sodium [Synthroid] 75 mcg PO DAILY 12/01/20 08/04/23 History Aspirin 81 mg PO DAILY 07/12/21 08/04/23 History Gabapentin 300 mg PO HS 07/12/21 08/04/23 History QUEtiapine [SEROquel] 100 mg PO HS 07/12/21 08/04/23 History Rosuvastatin Calcium [Crestor] 5 mg PO HS 07/12/21 08/04/23 History Sodium Bicarbonate Tab 650 mg PO BID 07/12/21 08/04/23 History rOPINIRole HCL [Requip] 1 mg PO HS 09/02/21 08/04/23 History Insulin Glargine/Lixisenatide 30 units SQ DAILY 12/01/21 08/04/23 History [Soliqua 100 Unit-33 Mcg/ml Pen] Eltrombopag Olamine [Promacta] 12.5 mg PO DAILY@0700 05/31/23 08/04/23 History Insulin Lispro [humaLOG Kwikpen] See Protocol SQ AC-TID 05/31/23 08/04/23 History Mirabegron [Myrbetriq] 50 mg PO DAILY 05/31/23 08/04/23 History predniSONE 10 mg PO DAILY 05/31/23 08/04/23 History Metoprolol Tartrate [Lopressor] 50 mg PO BID #60 tab 06/06/23 08/04/23 Rx Acetaminophen Tab [Tylenol] 500 mg PO Q6HR PRN tab 06/07/23 08/04/23 Rx Loperamide [Imodium] 2 mg PO QID PRN cap 06/07/23 08/04/23 Rx Magnesium Oxide [Mag-Ox] 400 mg PO DAILY tab 06/07/23 08/04/23 Rx hydrALAZINE HCL [Apresoline] 100 mg PO TID #90 tab 06/07/23 08/04/23 Rx Furosemide [Lasix] 20 mg PO BID@0900,1600 #10 tab 07/31/23 08/04/23 Rx cefUROXime axetiL [Ceftin] 500 mg PO BID 5 Days #10 tab 07/31/23 08/04/23 Rx Allergies Allergy/AdvReac Type Severity Reaction Status Date / Time morphine Allergy Severe Itching Verified 08/04/23 15:43 Physical Exam Osteopathic Statement: *. No significant issues noted on an osteopathic structural exam other than those noted in the History and Physical/Consult. Vitals: Vital Signs Temp Pulse Resp BP Pulse Ox 08/05/23 08:02 97 08/05/23 08:00 98.0 F 62 18 102/60 98 08/05/23 04:00 99 F 88 20 124/70 97 08/05/23 02:00 18 08/05/23 00:00 101.8 F H 91 22 133/72 98 08/04/23 20:00 98.2 F 95 18 132/68 99 08/04/23 16:00 98.3 F 08/04/23 15:05 98.3 F Intake and Output 08/04/23 08/05/23 08/05/23 22:59 06:59 14:59 Other: Voiding Method Urinal Urinal Diaper Diaper # Voids 1 Weight 90.718 kg No acute distress, oriented 3. Currently on 2 L of oxygen. The patient is initially sleeping, without any respiratory distress. HEENT examination is grossly unremarkable. Mucous membranes are moist. No oral lesions. Neck supple. Full range of motion. No adenopathy thyromegaly or neck vein distention. Cardiovascular examination reveals regular rhythm rate. S1-S2 normal. No S3 or S4. No discernible murmur noted. Heart rate is 62 bpm. Lungs reveal minimal scattered rhonchi. No wheezes. No crackles. 2 L saturation is 98%. Breath sounds are equal bilaterally. Abdomen soft bowel sounds are heard. No masses or tenderness. Extremities are intact. No cyanosis clubbing or edema. Skin is without rash or lesion. Neurologic examination is brief but nonfocal. Results - Laboratory Findings CBC and BMP: 08/04/23 10:16 08/04/23 10:16 Abnormal lab findings: Abnormal Labs 08/04/23 08/04/23 08/04/23 10:16 10:16 13:30 WBC 11.5 H Hgb 11.5 L Hct 35.3 L RDW 15.6 H Neutrophils # 10.3 H Lymphocytes # 0.7 L Carbon Dioxide 18 L BUN 39 H Creatinine 1.62 H Glucose 105 H POC Glucose (mg/dL) Troponin I Total Protein 5.5 L Albumin 3.4 L Urine Protein 2+ H Urine Blood Moderate H Ur Leukocyte Esterase Large H Urine RBC 62 H Urine WBC >182 H Urine WBC Clumps Many H Urine Bacteria Few H 08/04/23 08/04/23 08/04/23 13:30 18:21 19:00 WBC Hgb Hct RDW Neutrophils # Lymphocytes # Carbon Dioxide BUN Creatinine Glucose POC Glucose (mg/dL) 123 H Troponin I 0.073 H* 0.076 H* Total Protein Albumin Urine Protein Urine Blood Ur Leukocyte Esterase Urine RBC Urine WBC Urine WBC Clumps Urine Bacteria 08/04/23 08/05/23 08/05/23 20:46 06:18 11:24 WBC Hgb Hct RDW Neutrophils # Lymphocytes # Carbon Dioxide BUN Creatinine Glucose POC Glucose (mg/dL) 199 H 217 H Troponin I 0.073 H* Total Protein Albumin Urine Protein Urine Blood Ur Leukocyte Esterase Urine RBC Urine WBC Urine WBC Clumps Urine Bacteria - Diagnostic Findings Chest x-ray: image reviewed Assessment and Plan Assessment: Acute nausea, and vomiting, of unclear etiology. Acute hypoxemic respiratory failure, with recent episode of pneumonia. Acute mental status changes, likely secondary to dehydration, and/or sepsis. History of renal transplant, currently on Prograf, CellCept, and prednisone. Stage III chronic kidney disease. Normocytic normochromic anemia. Insulin-dependent diabetes mellitus with diabetic neuropathy. History of essential hypertension. History of prostate cancer. Peripheral artery disease. History of hypothyroidism. Plan: Plan dated 08/05/2023. The patient is ready on antibiotics, in the form of azithromycin, and Zosyn. The patient was recently inpatient between July 25 in July 31 with an episode of right lower lobe pneumonia. The chest x-ray from the prior admission, is not too different from the chest x-ray on this admission. One chest x-ray is more penetrated one is less penetrated, so allowing for technical differences, I don't believe the chest x-rays are much different. Nonetheless, I will order pro-calcitonin level. The patient continues on oxygen at 2 L. Labs, x-rays, medications are reviewed. The patient's overall prognosis remains guarded. Blood urine and sputum sampling is ordered. Time with Patient: Greater than 30
[2023-08-05] MEDS: AZITHROMYCIN 500 MG in SODIUM CHLORIDE 0.9% 250 ML IVPB SCH (13:37)
[2023-08-05] MEDS: FAMOTIDINE 20 MG/2 ML VIAL IV SCH (15:01)
[2023-08-05 16:22] LABS: Glucose,Whole Blood 277 mg/dL (70-110)
[2023-08-05] MEDS ORDERED: DEXTROSE 50% SYRINGE 50 ML IVP PRN ×2 (16:49)
[2023-08-05] MEDS: INSULIN ASPART (NovoLOG) 100 UNIT/ML VIAL SQ SCH ×2 (17:28→22:22)
[2023-08-05 20:10] LABS: Glucose,Whole Blood 267 mg/dL (70-110)
[2023-08-05] MEDS: HEPARIN SODIUM,PORCINE 5,000 UNIT/ML 1 ML VIAL SQ SCH (22:20)
[2023-08-05] MEDS: GABAPENTIN 300 MG CAP PO SCH (22:20)
[2023-08-05] MEDS: ATORVASTATIN 10 MG TAB PO SCH (22:20)
--- NOTE | 2023-08-05 22:44 | P.CONS ---
History of Present Illness - Reason for Consult Consult date: 08/05/23 Pneumonia Requesting physician: Luda Quispe - Chief Complaint Weakness difficulty urination and burning x few days - History of Present Illness Patient is a 82-year-old male with a past medical history significant for diabetes mellitus hypertension hyperlipidemia atrial fibrillation history of prostate cancer and recurrent UTIs patient has been brought into the hospital for evaluation of nausea and vomiting and this patient mention he did have a difficulty urination which was also burning however denies having any suprapubic or flank pain patient denies having any headache or URI symptoms no chest pain or shortness of breath occasional cough no abdominal pain no diarrhea on presentation to the hospital the patient did have a fever of 100.9 F and did spike a fever of 101.8 at midnight patient was not tachycardic hypotensive or hypoxic currently on her 2 L nasal cannula oxygen patient did have white count of 11.5 BUN/creatinine has been mildly elevated liver enzymes are normal troponins are elevated urine has been positive influenza RSV and COVID testing was negative patient did have a chest x-ray right lower lobe infiltrate worsening correlate for pneumonia patient was started on Zosyn and azithromycin infectious he was consulted for further management of antibiotic therapy Review of Systems Positive point and negatives has been mentioned in the HPI, complete review of systems was performed and all other systems are negative 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." Hard of hearing, LOW PLATELETS, History of Any Multi-Drug Resistant Organisms: None Reported Past Surgical History: Unable to Obtain, Orthopedic Surgery Additional Past Surgical History / Comment(s): 12/02/21, KYPHOPLASTY AND BX (NEG). Leftkidney transplant 2002, parathyroid surgery, arthroscopy knee surgery, pericardiocentesis, cancer removed from ear, Past Anesthesia/Blood Transfusion Reactions: No Reported Reaction Past Psychological History: Anxiety, Depression Additional Psychological History / Comment(s): Pt resides with spouse. Smoking Status: Never smoker Past Alcohol Use History: None Reported Past Drug Use History: None Reported - Past Family History Father Family Medical History: Deep Vein Thrombosis (DVT) Son(s) Family Medical History: Cancer Additional Family Medical History / Comment(s): Skin cancer. Mother Family Medical History: Cancer Additional Family Medical History / Comment(s): . Medications and Allergies Home Medications Medication Instructions Recorded Confirmed Type Finasteride [Proscar] 5 mg PO DAILY 02/09/17 08/04/23 History Tamsulosin HCl [Flomax] 0.4 mg PO DAILY 02/09/17 08/04/23 History Multivitamins, Thera [Multivitamin 1 tab PO DAILY 12/31/18 08/04/23 History (formulary)] Vit C/E/Zn/Coppr/Lutein/Zeaxan 1 cap PO HS 12/18/19 08/04/23 History [Preservision Areds 2 Softgel] Pantoprazole [Protonix] 40 mg PO DAILY 12/28/19 08/04/23 History Tacrolimus [Prograf] 1 mg PO BID 04/03/20 08/04/23 History mycophenolate mofetiL [Cellcept] 250 mg PO BID 04/03/20 08/04/23 History DULoxetine HCL [Cymbalta] 120 mg PO DAILY 12/01/20 08/04/23 History Levothyroxine Sodium [Synthroid] 75 mcg PO DAILY 12/01/20 08/04/23 History Aspirin 81 mg PO DAILY 07/12/21 08/04/23 History Gabapentin 300 mg PO HS 07/12/21 08/04/23 History QUEtiapine [SEROquel] 100 mg PO HS 07/12/21 08/04/23 History Rosuvastatin Calcium [Crestor] 5 mg PO HS 07/12/21 08/04/23 History Sodium Bicarbonate Tab 650 mg PO BID 07/12/21 08/04/23 History rOPINIRole HCL [Requip] 1 mg PO HS 09/02/21 08/04/23 History Insulin Glargine/Lixisenatide 30 units SQ DAILY 12/01/21 08/04/23 History [Soliqua 100 Unit-33 Mcg/ml Pen] Eltrombopag Olamine [Promacta] 12.5 mg PO DAILY@0700 05/31/23 08/04/23 History Insulin Lispro [humaLOG Kwikpen] See Protocol SQ AC-TID 05/31/23 08/04/23 History Mirabegron [Myrbetriq] 50 mg PO DAILY 05/31/23 08/04/23 History predniSONE 10 mg PO DAILY 05/31/23 08/04/23 History Metoprolol Tartrate [Lopressor] 50 mg PO BID #60 tab 06/06/23 08/04/23 Rx Acetaminophen Tab [Tylenol] 500 mg PO Q6HR PRN tab 06/07/23 08/04/23 Rx Loperamide [Imodium] 2 mg PO QID PRN cap 06/07/23 08/04/23 Rx Magnesium Oxide [Mag-Ox] 400 mg PO DAILY tab 06/07/23 08/04/23 Rx hydrALAZINE HCL [Apresoline] 100 mg PO TID #90 tab 06/07/23 08/04/23 Rx Furosemide [Lasix] 20 mg PO BID@0900,1600 #10 tab 07/31/23 08/04/23 Rx cefUROXime axetiL [Ceftin] 500 mg PO BID 5 Days #10 tab 07/31/23 08/04/23 Rx Allergies Allergy/AdvReac Type Severity Reaction Status Date / Time morphine Allergy Severe Itching Verified 08/04/23 15:43 Physical Exam Vitals: Vital Signs Temp Pulse Pulse Resp BP BP Pulse Ox 08/05/23 08:02 97 08/05/23 08:00 98.0 F 62 18 102/60 98 08/05/23 04:00 99 F 88 20 124/70 97 08/05/23 02:00 18 08/05/23 00:00 101.8 F H 91 22 133/72 98 08/04/23 20:00 98.2 F 95 18 132/68 99 08/04/23 16:00 98.3 F 08/04/23 15:05 98.3 F 08/04/23 11:34 100.2 F H 81 18 103/58 Intake and Output 08/04/23 08/05/23 08/05/23 22:59 06:59 14:59 Other: Voiding Method Urinal Diaper # Voids 1 Weight 90.718 kg GENERAL DESCRIPTION: Elderly male lying in bed, no distress. No tachypnea or accessory muscle of respiration use. HEENT: Shows Pallor , no scleral icterus. Oral mucous membrane is dry. No pharyngeal erythema or thrush NECK: Trachea central, no thyromegaly. LUNGS: Unlabored breathing. Decreased breath sound at the base no wheeze or crackle. HEART: S1, S2, regular rate and rhythm. No loud murmur ABDOMEN: Soft, no tenderness , guarding or rigidity, no organomegaly EXTREMITIES: No edema of feet. SKIN: No rash, no masses palpable. NEUROLOGICAL: The patient is awake, alert, oriented x3, mood and affect normal. Results CBC & Chem 7: 08/04/23 10:16 08/04/23 10:16 Labs: Abnormal Lab Results - Last 24 Hours (Table) 08/04/23 08/04/23 08/04/23 Range/Units 10:16 10:16 13:30 WBC 11.5 H (3.8-10.6) k/uL Hgb 11.5 L (13.0-17.5) gm/dL Hct 35.3 L (39.0-53.0) % RDW 15.6 H (11.5-15.5) % Neutrophils # 10.3 H (1.3-7.7) k/uL Lymphocytes # 0.7 L (1.0-4.8) k/uL Carbon Dioxide 18 L (22-30) mmol/L BUN 39 H (9-20) mg/dL Creatinine 1.62 H (0.66-1.25) mg/dL Glucose 105 H (74-99) mg/dL POC Glucose (mg/dL) (70-110) mg/dL Troponin I (0.000-0.034) ng/mL Total Protein 5.5 L (6.3-8.2) g/dL Albumin 3.4 L (3.5-5.0) g/dL Urine Protein 2+ H (Negative) Urine Blood Moderate H (Negative) Ur Leukocyte Esterase Large H (Negative) Urine RBC 62 H (0-5) /hpf Urine WBC >182 H (0-5) /hpf Urine WBC Clumps Many H (None) /hpf Urine Bacteria Few H (None) /hpf 08/04/23 08/04/23 08/04/23 Range/Units 13:30 18:21 19:00 WBC (3.8-10.6) k/uL Hgb (13.0-17.5) gm/dL Hct (39.0-53.0) % RDW (11.5-15.5) % Neutrophils # (1.3-7.7) k/uL Lymphocytes # (1.0-4.8) k/uL Carbon Dioxide (22-30) mmol/L BUN (9-20) mg/dL Creatinine (0.66-1.25) mg/dL Glucose (74-99) mg/dL POC Glucose (mg/dL) 123 H (70-110) mg/dL Troponin I 0.073 H* 0.076 H* (0.000-0.034) ng/mL Total Protein (6.3-8.2) g/dL Albumin (3.5-5.0) g/dL Urine Protein (Negative) Urine Blood (Negative) Ur Leukocyte Esterase (Negative) Urine RBC (0-5) /hpf Urine WBC (0-5) /hpf Urine WBC Clumps (None) /hpf Urine Bacteria (None) /hpf 08/04/23 08/05/23 Range/Units 20:46 06:18 WBC (3.8-10.6) k/uL Hgb (13.0-17.5) gm/dL Hct (39.0-53.0) % RDW (11.5-15.5) % Neutrophils # (1.3-7.7) k/uL Lymphocytes # (1.0-4.8) k/uL Carbon Dioxide (22-30) mmol/L BUN (9-20) mg/dL Creatinine (0.66-1.25) mg/dL Glucose (74-99) mg/dL POC Glucose (mg/dL) 199 H (70-110) mg/dL Troponin I 0.073 H* (0.000-0.034) ng/mL Total Protein (6.3-8.2) g/dL Albumin (3.5-5.0) g/dL Urine Protein (Negative) Urine Blood (Negative) Ur Leukocyte Esterase (Negative) Urine RBC (0-5) /hpf Urine WBC (0-5) /hpf Urine WBC Clumps (None) /hpf Urine Bacteria (None) /hpf Assessment and Plan (1) UTI (urinary tract infection) Current Visit: Yes Status: Acute Code(s): N39.0 - URINARY TRACT INFECTION, SITE NOT SPECIFIED SNOMED Code(s): 51749736 (2) Leukocytosis Current Visit: Yes Status: Acute Code(s): D72.829 - ELEVATED WHITE BLOOD CELL COUNT, UNSPECIFIED SNOMED Code(s): 920419113 (3) Sepsis Current Visit: No Status: Acute Code(s): A41.9 - SEPSIS, UNSPECIFIED ORGANISM SNOMED Code(s): 59690282 Plan: 1patient is in the hospital with sepsis in this patient who did have a fever elevated white count source is likely urinary tract infection as the patient did have urinary symptoms of difficulty urination and burning did have a positive UA with recent admission to the hospital will need to cover for the resistant gram-negative pathogen, patient also have abnormal x-ray showing worsening pneumonia with right lower lobe this patient was recently discharged from the hospital and treated for pneumonia possible component of pneumonia less likely but not entirely excluded 2-we will obtain a sputum for Gram stain culture check a CRP and procalcitonin 3-continue with the Zosyn while waiting for the culture to finalize We will follow on clinical condition and cultures to further adjust medication if needed Thank you for this consultation we will follow the patient along with you Dictation was produced using [employer] dictation software. please excuse any grammatical, word or spelling errors. Time with Patient: Greater than 30
[2023-08-06] MEDS: ELTROMBOPAG OLAMINE PO SCH (05:07)
[2023-08-06] MEDS: PIPERACILLIN-TAZOBACTAM 3.375 GM in SODIUM CHLORIDE 0.9% 100 ML IVPB SCH ×3 (05:07→20:21)
[2023-08-06 06:20] LABS: Glucose,Whole Blood 249 mg/dL (70-110)
[2023-08-06] MEDS: LEVOTHYROXINE 75 MCG TAB PO SCH (06:29)
[2023-08-06] MEDS: PANTOPRAZOLE 40 MG TABLET PO SCH (06:29)
[2023-08-06] MEDS: INSULIN ASPART (NovoLOG) 100 UNIT/ML VIAL SQ SCH ×4 (06:29→21:23)
--- NOTE | 2023-08-06 08:46 | P.CRDCN ---
History of Present Illness Consult date: 08/06/23 Chief complaint: Generalized weakness History of present illness: The patient is a 82-year-old gentleman with a past medical history significant for paroxysmal atrial fibrillation for some reason not on anticoagulation and the patient does not recall the exact reason why he was not on anticoagulation as well as hypertension and dyslipidemia and history of renal transplant and also multiple comorbid condition and the patient somewhat is poor historian. He was just discharged from the hospital a few days ago after he was admitted with a pneumonia. This time he presented with generalized weakness and fatigue and frequent falling was no loss of consciousness or change in mental status and symptoms of nausea and vomiting. No pain in the chest and no shortness of breath and no dizziness or lightheadedness and no presyncope or syncope. He underwent further workup including chest x-ray showed infiltrate consistent with pneumonia and currently is on antibiotic. Troponin came in to be slightly elevated which appeared to be chronic and was consistent with the previous admission. The EKG initially showed atrial fibrillation but subsequently he was converted to normal sinus mechanism. The creatinine is a slightly abnormal. During the last admission he underwent an echo which revealed normal LV systolic function was moderate aortic insufficiency. The patient currently is hemodynamic stable and he is completely asymptomatic from a cardiovascular standpoint of view. The examination is remarkable for distant heart sounds with a systolic murmur at the right upper sternal border and finished breathing sounds bilaterally. No edema was noted in the lower extremity is Assessment Pneumonia Generalized weakness and fatigue Mildly abnormal troponin Renal failure History of renal transplant Valvular heart disease Paroxysmal atrial fibrillation Plan I would continue considering medical treatment for the abnormal troponin Continue aspirin and beta russ and statin No reason to repeat the echo since he underwent an echo recently Final.the exact reason why he is not on anticoagulation Follow-up with the patient 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." Hard of hearing, LOW PLATELETS, History of Any Multi-Drug Resistant Organisms: None Reported Past Surgical History: Unable to Obtain, Orthopedic Surgery Additional Past Surgical History / Comment(s): 12/02/21, KYPHOPLASTY AND BX (NEG). Leftkidney transplant 2002, parathyroid surgery, arthroscopy knee surgery, pericardiocentesis, cancer removed from ear, Past Anesthesia/Blood Transfusion Reactions: No Reported Reaction Past Psychological History: Anxiety, Depression Additional Psychological History / Comment(s): Pt resides with spouse. Smoking Status: Never smoker Past Alcohol Use History: None Reported Past Drug Use History: None Reported - Past Family History Father Family Medical History: Deep Vein Thrombosis (DVT) Son(s) Family Medical History: Cancer Additional Family Medical History / Comment(s): Skin cancer. Mother Family Medical History: Cancer Additional Family Medical History / Comment(s): . Medications and Allergies Home Medications Medication Instructions Recorded Confirmed Type Finasteride [Proscar] 5 mg PO DAILY 02/09/17 08/04/23 History Tamsulosin HCl [Flomax] 0.4 mg PO DAILY 02/09/17 08/04/23 History Multivitamins, Thera [Multivitamin 1 tab PO DAILY 12/31/18 08/04/23 History (formulary)] Vit C/E/Zn/Coppr/Lutein/Zeaxan 1 cap PO HS 12/18/19 08/04/23 History [Preservision Areds 2 Softgel] Pantoprazole [Protonix] 40 mg PO DAILY 12/28/19 08/04/23 History Tacrolimus [Prograf] 1 mg PO BID 04/03/20 08/04/23 History mycophenolate mofetiL [Cellcept] 250 mg PO BID 04/03/20 08/04/23 History DULoxetine HCL [Cymbalta] 120 mg PO DAILY 12/01/20 08/04/23 History Levothyroxine Sodium [Synthroid] 75 mcg PO DAILY 12/01/20 08/04/23 History Aspirin 81 mg PO DAILY 07/12/21 08/04/23 History Gabapentin 300 mg PO HS 07/12/21 08/04/23 History QUEtiapine [SEROquel] 100 mg PO HS 07/12/21 08/04/23 History Rosuvastatin Calcium [Crestor] 5 mg PO HS 07/12/21 08/04/23 History Sodium Bicarbonate Tab 650 mg PO BID 07/12/21 08/04/23 History rOPINIRole HCL [Requip] 1 mg PO HS 09/02/21 08/04/23 History Insulin Glargine/Lixisenatide 30 units SQ DAILY 12/01/21 08/04/23 History [Soliqua 100 Unit-33 Mcg/ml Pen] Eltrombopag Olamine [Promacta] 12.5 mg PO DAILY@0700 05/31/23 08/04/23 History Insulin Lispro [humaLOG Kwikpen] See Protocol SQ AC-TID 05/31/23 08/04/23 History Mirabegron [Myrbetriq] 50 mg PO DAILY 05/31/23 08/04/23 History predniSONE 10 mg PO DAILY 05/31/23 08/04/23 History Metoprolol Tartrate [Lopressor] 50 mg PO BID #60 tab 06/06/23 08/04/23 Rx Acetaminophen Tab [Tylenol] 500 mg PO Q6HR PRN tab 06/07/23 08/04/23 Rx Loperamide [Imodium] 2 mg PO QID PRN cap 06/07/23 08/04/23 Rx Magnesium Oxide [Mag-Ox] 400 mg PO DAILY tab 06/07/23 08/04/23 Rx hydrALAZINE HCL [Apresoline] 100 mg PO TID #90 tab 06/07/23 08/04/23 Rx Furosemide [Lasix] 20 mg PO BID@0900,1600 #10 tab 07/31/23 08/04/23 Rx cefUROXime axetiL [Ceftin] 500 mg PO BID 5 Days #10 tab 07/31/23 08/04/23 Rx Allergies Allergy/AdvReac Type Severity Reaction Status Date / Time morphine Allergy Severe Itching Verified 08/04/23 15:43 Physical Exam Vitals: Vital Signs Temp Pulse Resp BP Pulse Ox 08/06/23 04:00 97.8 F 70 18 118/71 97 08/06/23 00:00 78 18 134/70 95 08/05/23 20:00 98.5 F 82 18 148/73 97 08/05/23 16:00 98.0 F 66 18 117/68 94 L 08/05/23 14:00 78 18 08/05/23 12:00 98.2 F 78 18 104/65 97 Intake and Output 08/05/23 08/06/23 08/06/23 22:59 06:59 14:59 Output Total 500 400 Balance -500 -400 Output: Urine 500 400 Other: Voiding Method Urinal Urinal Diaper Diaper # Voids 1 # Bowel Movements 1 Results 08/04/23 10:16 08/04/23 10:16 Current Medications Generic Name Dose Route Start Last Admin Trade Name Freq PRN Reason Stop Dose Admin Acetaminophen 650 mg 08/04/23 15:29 08/05/23 00:15 Acetaminophen Tab 325 Mg Tab PO 650 mg Q6HR PRN Administration Mild Pain or Fever > 100.5 Acetaminophen 500 mg 08/04/23 16:57 Acetaminophen Tab 500 Mg Tab PO Q6HR PRN Fever and/ or Pain Hydrocodone Bitart/Acetaminophen 1 each 08/04/23 15:29 Hydrocodone/Apap 5-325mg 1 Each Tab PO Q4HR PRN Moderate Pain (Scale 4 to 6) Aspirin 81 mg 08/05/23 09:00 08/05/23 09:12 Aspirin 81 Mg PO 81 mg DAILY [place] Administration Atorvastatin Calcium 10 mg 08/04/23 21:00 08/05/23 22:20 Atorvastatin 10 Mg Tab PO 10 mg HS [place] Administration Dextrose/Water 25 ml 08/05/23 16:49 Dextrose 50% Syringe 50 Ml IVP PER PROTOCOL PRN Hypoglycemia Protocol Dextrose/Water 50 ml 08/05/23 16:49 Dextrose 50% Syringe 50 Ml IVP PER PROTOCOL PRN Hypoglycemia Protocol Duloxetine HCl 120 mg 08/05/23 09:00 08/05/23 09:12 Duloxetine Hcl 60 Mg Capsule.Dr PO 120 mg DAILY [place] Administration Famotidine 20 mg 08/05/23 14:00 08/05/23 15:01 Famotidine 20 Mg/2 Ml Vial IV 20 mg DAILY [place] Administration Finasteride 5 mg 08/05/23 09:00 08/05/23 09:12 Finasteride 5 Mg Tab PO 5 mg DAILY [place] Administration Furosemide 20 mg 08/05/23 09:00 08/05/23 16:58 Furosemide 20 Mg Tab PO 20 mg BID@0900,1600 [place] Administration Gabapentin 300 mg 08/04/23 21:00 08/05/23 22:20 Gabapentin 300 Mg Cap PO 300 mg HS [place] Administration Heparin Sodium (Porcine) 5,000 unit 08/05/23 21:00 08/05/23 22:20 Heparin Sodium,Porcine 5,000 Unit/Ml 1 Ml Vial SQ 5,000 unit Q12HR [place] Administration Hydralazine HCl 100 mg 08/04/23 22:00 01/13/24 23:58 Hydralazine Hcl 50 Mg Tab PO 100 mg TID [place] Administration Piperacillin Sod/Tazobactam 100 mls @ 25 mls/hr 08/04/23 22:00 08/06/23 05:07 Sod 3.375 gm/ Sodium Chloride IVPB 25 mls/hr Q8H [place] Administration Protocol Azithromycin 500 mg/ Sodium 250 mls @ 250 mls/hr 08/05/23 13:00 08/05/23 13:37 Chloride IVPB 08/06/23 13:59 250 mls/hr DAILY@1300 [place] Administration Protocol Insulin Aspart 0 unit 08/05/23 17:30 08/06/23 06:29 Insulin Aspart (Novolog) 100 Unit/Ml Vial SQ 2 unit ACHS [place] Administration Protocol Levothyroxine Sodium 75 mcg 08/05/23 06:30 08/06/23 06:29 Levothyroxine 75 Mcg Tab PO 75 mcg DAILY@0630 [place] Administration Loperamide HCl 2 mg 08/04/23 16:57 Loperamide 2 Mg Cap PO QID PRN Diarrhea Magnesium Oxide 400 mg 08/05/23 09:00 08/05/23 09:12 Magnesium Oxide 400 Mg Tab PO 400 mg DAILY [place] Administration Metoprolol Tartrate 50 mg 08/04/23 21:00 08/05/23 22:20 Metoprolol Tartrate 50 Mg Tab PO 50 mg BID [place] Administration Miscellaneous Information 1 each 08/04/23 13:10 Pneumonia Protocol Utilized 1 Each Misc PO ONCE PRN Per Protocol Multivitamins 1 each 08/05/23 09:00 08/05/23 09:12 Multivitamins, Thera 1 Each Tab PO 1 each DAILY [place] Administration Multivitamins/Minerals 1 each 08/04/23 21:00 08/05/23 22:21 Vit A,C & F-Pzerhy-Frokjhqc 1 Each Tab PO 1 each HS [place] Administration Mycophenolate Mofetil 250 mg 08/04/23 21:00 08/05/23 22:20 Mycophenolate Mofetil 250 Mg Cap PO 250 mg BID [place] Administration Naloxone HCl 0.2 mg 08/04/23 15:29 Naloxone 0.4 Mg/Ml 1 Ml Vial IV Q2M PRN Opioid Reversal Eltrombopag Olamine 12.5 mg 08/05/23 07:00 08/06/23 05:07 [Promacta] 12.5 Mg PO Not Given Tablet DAILY@0700 [facility] Mirabegron [ 50 mg 08/05/23 09:00 08/05/23 09:14 Myrbetriq] 50 Mg Tab PO Not Given .Er.24h DAILY [facility] Ondansetron HCl 4 mg 08/04/23 15:29 Ondansetron 4 Mg/2 Ml Vial IVP Q8HR PRN Nausea And Vomiting Pantoprazole Sodium 40 mg 08/05/23 07:30 08/06/23 06:29 Pantoprazole 40 Mg Tablet PO 40 mg DAILY@0730 [place] Administration Quetiapine Fumarate 100 mg 08/04/23 21:00 08/05/23 22:20 Quetiapine 100 Mg Tab PO 100 mg HS [place] Administration Ropinirole HCl 1 mg 08/04/23 21:00 08/05/23 22:21 Ropinirole Hcl 1 Mg Tab PO 1 mg HS [place] Administration Sodium Bicarbonate 650 mg 08/04/23 21:00 08/05/23 22:20 Sodium Bicarbonate Tab 650 Mg Tab PO 650 mg BID [place] Administration Tacrolimus 1 mg 08/04/23 21:00 08/05/23 22:21 Tacrolimus 1 Mg Cap PO 1 mg BID [place] Administration Tamsulosin HCl 0.4 mg 08/05/23 09:00 08/05/23 09:12 Tamsulosin 0.4 Mg Cap.Er.24h PO 0.4 mg DAILY [place] Administration Intake and Output 08/05/23 08/06/23 08/06/23 22:59 06:59 14:59 Output Total 500 400 Balance -500 -400 Output: Urine 500 400 Other: Voiding Method Urinal Urinal Diaper Diaper # Voids 1 # Bowel Movements 1 08/04/23 10:16 08/04/23 10:16
[2023-08-06 09:53] LABS: HCT 31.2 % (39.0-53.0); Hypochromasia Moderate; MCH 26.2 pg (25.0-35.0); MCHC 31.4 g/dL (31.0-37.0); MCV 83.6 fL (80.0-100.0); Mean Platelet Volume 8.4; Platelet Count 234 k/uL (150-450); RBC 3.73 m/uL (4.30-5.90); RDW 15.5 % (11.5-15.5); WBC 10.5 k/uL (3.8-10.6)
[2023-08-06 09:58] LABS: HGB 9.8 gm/dL (13.0-17.5)
[2023-08-06 10:01] LABS: African American GFR (CKD) 29 (>60 ml/min/1.73 sqM); Anion Gap 10 mmol/L; Blood Urea Nitrogen 52 mg/dL (9-20); Calcium 7.4 mg/dL (8.4-10.2); Carbon Dioxide 26 mmol/L (22-30); Chloride 100 mmol/L (98-107); Glucose 205 mg/dL (74-99); Non-African American GFR(CKD) 25 (>60 ml/min/1.73 sqM); Potassium 3.9 mmol/L (3.5-5.1); Sodium 136 mmol/L (137-145)
[2023-08-06] MEDS: MAGNESIUM OXIDE 400 MG TAB PO SCH (10:02)
[2023-08-06] MEDS: FUROSEMIDE 20 MG TAB PO SCH ×2 (10:02→17:22)
[2023-08-06] MEDS: METOPROLOL TARTRATE 50 MG TAB PO SCH ×2 (10:02→20:19)
[2023-08-06] MEDS: ASPIRIN 81 MG PO SCH (10:02)
[2023-08-06] MEDS: FINASTERIDE 5 MG TAB PO SCH (10:02)
[2023-08-06] MEDS: TAMSULOSIN 0.4 MG CAP.ER.24H PO SCH (10:03)
[2023-08-06] MEDS: hydrALAZINE HCL 50 MG TAB PO SCH ×3 (10:03→20:19)
[2023-08-06] MEDS: SODIUM BICARBONATE TAB 650 MG TAB PO SCH ×2 (10:03→20:19)
[2023-08-06] MEDS: FAMOTIDINE 20 MG/2 ML VIAL IV SCH (10:03)
[2023-08-06] MEDS: TACROLIMUS 1 MG CAP PO SCH ×2 (10:03→20:20)
[2023-08-06] MEDS: DULoxetine HCL 60 MG CAPSULE.DR PO SCH (10:03)
[2023-08-06] MEDS: HEPARIN SODIUM,PORCINE 5,000 UNIT/ML 1 ML VIAL SQ SCH ×2 (10:03→20:20)
[2023-08-06] MEDS: MULTIVITAMINS, THERA 1 EACH TAB PO SCH (10:03)
[2023-08-06] MEDS: Mirabegron [Myrbetriq] 50 MG Tab.Er.24h PO SCH (10:04)
[2023-08-06 11:51] LABS: Glucose,Whole Blood 281 mg/dL (70-110)
[2023-08-06] MEDS: AZITHROMYCIN 500 MG in SODIUM CHLORIDE 0.9% 250 ML IVPB SCH (12:19)
--- NOTE | 2023-08-06 14:09 | P.PN ---
Subjective Progress Note Date: 08/06/23 Principal diagnosis: Nausea and vomiting. Pulmonary consult dated 08/05/2023. 82-year-old male, who presented to the emergency department, August 04, complaining of nausea, and vomiting. The patient was inpatient here at this hospital, between July 25 in July 31. The patient is readmitted on August 04. He is readmitted with a diagnosis of possible right lower lobe pneumonia. He seen today in room 357. He is on oxygen at 2 L. He is on azithromycin, and Zosyn. He apparently complained of shortness of breath in the emergency department. EMS was called, and they brought him into the ER, on the . He apparently became confused in the emergency department, started shaking. For that reason, he was evaluated, and eventually admitted. Currently laboratory d jose roberto includes a white count of 1.5, hemoglobin 11.5, hematocrit 35.3, and a platelet count of 307,000. Sodium 138, potassium 3.8, chlorides 12, CO2 18, anion gap 18, BUN 39, and creatinine 1.2. Glucose 217. Troponin is 0.073. Urine has 2+ protein, R is positive for leukocyte esterase, 62 RBCs, 182 WBCs, and many WBC clumps. In addition, there are a few bacteria. Viral screen, for influenza, RSV, and coronavirus, was negative. The chest x-ray done on August 04, and my opinion is not much different from the previous x-ray, done on the . One x-ray is more penetrated one is less penetrated. Progress note dated 08/06/2023. 82-year-old male presented to the emergency department, on August 04, complaining of nausea vomiting. The patient was hospitalized here, between July 25 in July 31. He was readmitted to the hospital on August 04. He came in with a diagnosis of possible right lower lobe pneumonia. Currently, the patient seems be doing well. The patient's on room air. He's not receiving any IV fluids. His pro-calcitonin level was quite high, at 17.8. The patient continues on Zosyn, and azithromycin. The patient is coughing, and producing some phlegm. White count 10.5, hemoglobin 9.8, hematocrit 31.2, and platelet count was normal. Sodium 136, potassium 3.9, chlorides 100, CO2 26, anion gap 10, BUN 52, and creatinine 2.37. Glucose 205. Calcium is 7.4. Urine was positive for gram-negative bacilli. Objective - Vital Signs Vital signs: Vital Signs Temp 98.0 F 08/06/23 08:00 Pulse 77 08/06/23 12:00 Resp 20 08/06/23 12:00 BP 111/55 08/06/23 12:00 Pulse Ox 93 L 08/06/23 12:00 FiO2 Intake & Output 08/05/23 08/06/23 08/06/23 18:59 06:59 18:59 Intake Total 240 Output Total 600 500 400 Balance -600 -500 -160 Intake: Oral 240 Output: Urine 600 500 400 Other: Voiding Method Urinal Urinal Diaper Diaper # Voids 1 # Bowel Movements 1 - Exam No acute distress, oriented 3. Currently on room air. HEENT examination is grossly unremarkable. Mucous membranes are moist. No oral lesions. Neck supple. Full range of motion. No adenopathy thyromegaly or neck vein distention. Cardiovascular examination reveals regular rhythm rate. S1-S2 normal. No S3 or S4. No discernible murmur noted. Heart rate is 77 bpm. Lungs reveal mostly clear breath sounds. No wheezes. No rhonchi. No crackles. Resting room air saturation is 97%. Abdomen soft bowel sounds are heard. No masses or tenderness. Extremities are intact. No cyanosis clubbing or edema. Skin is without rash or lesion. Neurologic examination is brief but nonfocal. - Labs CBC & Chem 7: 08/06/23 08:11 08/06/23 08:11 Labs: Abnormal Lab Results - Last 24 Hours (Table) 08/05/23 08/05/23 08/05/23 Range/Units 11:17 16:20 20:00 RBC (4.30-5.90) m/uL Hgb (13.0-17.5) gm/dL Hct (39.0-53.0) % Sodium (137-145) mmol/L BUN (9-20) mg/dL Creatinine (0.66-1.25) mg/dL Glucose (74-99) mg/dL POC Glucose (mg/dL) 277 H 267 H (70-110) mg/dL Hemoglobin A1c (<=6.0) % Calcium (8.4-10.2) mg/dL Procalcitonin 17.80 H (0.02-0.09) ng/mL 08/06/23 08/06/23 08/06/23 Range/Units 06:18 08:11 08:11 RBC 3.73 L (4.30-5.90) m/uL Hgb 9.8 L D (13.0-17.5) gm/dL Hct 31.2 L (39.0-53.0) % Sodium (137-145) mmol/L BUN (9-20) mg/dL Creatinine (0.66-1.25) mg/dL Glucose (74-99) mg/dL POC Glucose (mg/dL) 249 H (70-110) mg/dL Hemoglobin A1c 6.3 H (<=6.0) % Calcium (8.4-10.2) mg/dL Procalcitonin (0.02-0.09) ng/mL 08/06/23 08/06/23 Range/Units 08:11 11:49 RBC (4.30-5.90) m/uL Hgb (13.0-17.5) gm/dL Hct (39.0-53.0) % Sodium 136 L (137-145) mmol/L BUN 52 H (9-20) mg/dL Creatinine 2.37 H (0.66-1.25) mg/dL Glucose 205 H (74-99) mg/dL POC Glucose (mg/dL) 281 H (70-110) mg/dL Hemoglobin A1c (<=6.0) % Calcium 7.4 L (8.4-10.2) mg/dL Procalcitonin (0.02-0.09) ng/mL Microbiology - Last 24 Hours (Table) 08/04/23 13:30 Urine Culture - Preliminary Urine,Voided Gram Neg Bacilli 08/04/23 13:15 Blood Culture - Preliminary Blood 08/04/23 13:30 Blood Culture - Preliminary Blood Assessment and Plan Assessment: Acute nausea, and vomiting, of unclear etiology. Acute hypoxemic respiratory failure, with recent episode of pneumonia. Acute mental status changes, likely secondary to dehydration, and/or sepsis. Rule out urosepsis/urinary tract infection, as gram-negative bacilli are noted in the urine specimen. History of renal transplant, currently on Prograf, CellCept, and prednisone. Stage III chronic kidney disease. Normocytic normochromic anemia. Insulin-dependent diabetes mellitus with diabetic neuropathy. History of essential hypertension. History of prostate cancer. Peripheral artery disease. History of hypothyroidism. Plan: Plan dated 08/05/2023. The patient is ready on antibiotics, in the form of azithromycin, and Zosyn. The patient was recently inpatient between July 25 in July 31 with an episode of right lower lobe pneumonia. The chest x-ray from the prior admission, is not too different from the chest x-ray on this admission. One chest x-ray is more penetrated one is less penetrated, so allowing for technical differences, I don't believe the chest x-rays are much different. Nonetheless, I will order pro-calcitonin level. The patient continues on oxygen at 2 L. Labs, x-rays, medications are reviewed. The patient's overall prognosis remains guarded. Blood urine and sputum sampling is ordered. Plan dated 08/06/2023. The patient likely has a urinary tract infection, and not pneumonia. The patient continues on azithromycin and Zosyn. The patient's pro-calcitonin level was elevated. The patient's not having any respiratory issues. He is currently on room air. Saturations are 97%. Labs, x-rays, and medications are reviewed. Additional recommendations and suggestions are forthcoming. Identification of the urine gram-negative bacilli, we will allow a more precise administration of antibiotic. We will continue to follow. Prognosis is guarded. Time with Patient: Less than 30
--- NOTE | 2023-08-06 16:24 | P.PN ---
Subjective Progress Note Date: 08/06/23 Principal diagnosis: Reason for follow-up with sepsis and UTI Patient is a 82-year-old male with a past medical history significant for diabetes mellitus hypertension hyperlipidemia atrial fibrillation history of prostate cancer and recurrent UTIs patient has been brought into the hospital for evaluation of nausea and vomiting and this patient mention he did have a d ifficulty urination which was also burning of urine patient did have a fever elevated white count concerning for UTI and a question of pneumonia. On today's evaluation that is 08/06/2023, the patient did have resolution of his fever and is afebrile today, the patient is breathing comfortably on room air and the patient denies any shortness of breath, the patient denies chest pain or any cough , patient denies any nausea/vomiting abdominal pain or diarrhea. Patient white count normalized to 10.5 creatinine is 2.37 urine showing gram- negative bacilli Objective - Vital Signs Vital signs: Vital Signs Temp 98.0 F 08/06/23 08:00 Pulse 77 08/06/23 12:00 Resp 20 08/06/23 12:00 BP 111/55 08/06/23 12:00 Pulse Ox 93 L 08/06/23 12:00 FiO2 Intake & Output 08/05/23 08/06/23 08/06/23 18:59 06:59 18:59 Intake Total 240 Output Total 600 500 400 Balance -600 -500 -160 Intake: Oral 240 Output: Urine 600 500 400 Other: Voiding Method Urinal Urinal Diaper Diaper # Voids 1 # Bowel Movements 1 - Exam GENERAL DESCRIPTION: An elderly male lying in bed in no distress RESPIRATORY SYSTEM: Unlabored breathing , decreased breath sounds at bases HEART: S1 S2 regular rate and rhythm , ABDOMEN: Soft , no tenderness EXTREMITIES: No edema feet - Labs CBC & Chem 7: 08/06/23 08:11 08/06/23 08:11 Labs: Abnormal Lab Results - Last 24 Hours (Table) 08/05/23 08/05/23 08/06/23 Range/Units 11:17 20:00 06:18 RBC (4.30-5.90) m/uL Hgb (13.0-17.5) gm/dL Hct (39.0-53.0) % Sodium (137-145) mmol/L BUN (9-20) mg/dL Creatinine (0.66-1.25) mg/dL Glucose (74-99) mg/dL POC Glucose (mg/dL) 267 H 249 H (70-110) mg/dL Hemoglobin A1c (<=6.0) % Calcium (8.4-10.2) mg/dL Procalcitonin 17.80 H (0.02-0.09) ng/mL 08/06/23 08/06/23 08/06/23 Range/Units 08:11 08:11 08:11 RBC 3.73 L (4.30-5.90) m/uL Hgb 9.8 L D (13.0-17.5) gm/dL Hct 31.2 L (39.0-53.0) % Sodium 136 L (137-145) mmol/L BUN 52 H (9-20) mg/dL Creatinine 2.37 H (0.66-1.25) mg/dL Glucose 205 H (74-99) mg/dL POC Glucose (mg/dL) (70-110) mg/dL Hemoglobin A1c 6.3 H (<=6.0) % Calcium 7.4 L (8.4-10.2) mg/dL Procalcitonin (0.02-0.09) ng/mL 08/06/23 Range/Units 11:49 RBC (4.30-5.90) m/uL Hgb (13.0-17.5) gm/dL Hct (39.0-53.0) % Sodium (137-145) mmol/L BUN (9-20) mg/dL Creatinine (0.66-1.25) mg/dL Glucose (74-99) mg/dL POC Glucose (mg/dL) 281 H (70-110) mg/dL Hemoglobin A1c (<=6.0) % Calcium (8.4-10.2) mg/dL Procalcitonin (0.02-0.09) ng/mL Microbiology - Last 24 Hours (Table) 08/04/23 13:30 Urine Culture - Preliminary Urine,Voided Gram Neg Bacilli 08/04/23 13:15 Blood Culture - Preliminary Blood 08/04/23 13:30 Blood Culture - Preliminary Blood Assessment and Plan (1) UTI (urinary tract infection) Current Visit: Yes Status: Acute Code(s): N39.0 - URINARY TRACT INFECTION, SITE NOT SPECIFIED SNOMED Code(s): 46853458 (2) Leukocytosis Current Visit: Yes Status: Acute Code(s): D72.829 - ELEVATED WHITE BLOOD CELL COUNT, UNSPECIFIED SNOMED Code(s): 162236962 (3) Sepsis Current Visit: No Status: Acute Code(s): A41.9 - SEPSIS, UNSPECIFIED ORGANISM SNOMED Code(s): 99711088 Plan: 1patient is in the hospital with sepsis in this patient who did have a fever elevated white count source is likely urinary tract infection as the patient did have urinary symptoms of difficulty urination and burning did have a positive UA with recent admission to the hospital will need to cover for the resistant gram- negative pathogen, patient also have abnormal x-ray showing worsening pneumonia with right lower lobe this patient was recently discharged from the hospital and treated for pneumonia possible component of pneumonia less likely but not entirely excluded 2-patient urine is growing gram-negative bacilli also noticed to have slight worsening of his kidney function, we will obtain ultrasound of the kidney to make sure no evidence of any obstructive uropathy 3-patient to continue with the Zosyn while waiting for the culture to finalize Dictation was produced using [employer] dictation software. please excuse any grammatical, word or spelling errors.
[2023-08-06 16:48] LABS: Glucose,Whole Blood 180 mg/dL (70-110)
--- NOTE | 2023-08-06 19:59 | P.PN ---
Subjective This is a pleasant 82 years old male with multiple medical problems including Atrial Fibrillation, Diabetes Mellitus, Hyperlipidemia, Hypertension, back pain, "slow growing cancer of prostate, being watched by Dr Dasilva." Hard of hearing, s/p KYPHOPLASTY AND BX (NEG). Leftkidney transplant 2002, parathyroid surgery, Anxiety, Depression Patient history taking was limited by memory problem and there is no family member at bedside. Patient was admitted with provisional diagnosis of right pneumonia. Recommended that he came with nausea vomiting but when I asked the patient he says he came to the hospital because of pain with urination for the last 3 days with associated increased frequency. In the beginning he told me he has suprapubic pain but later on he said he does not have, most likely related to his memory problem. However currently patient has no suprapubic or flank tenderness. To me he denies any dyspnea or chest pain. He complained from occasional coughing with clear phlegm for the last 2-3 days. Also he looks drowsy and mild weakness. He is able to walk using a walker at home. He denies any abdominal pain or vomiting or diarrhea for me. No headache dizziness weakness or numbness. Patient states that he felt 2-3 days ago associated with syncope. Patient states that he was on the floor for a few seconds, he could not remember if he went on salt himself but there is no tongue biting. Patient denies using oxygen at home. He uses a walker with walking. He denies smoking alcohol or illicit drugs. He has low-grade fever of 100.2. Trace vitals stable On admission he had leukocytosis of 11.5. Recent CBC is unremarkable. Hemoglobin 11.5. Creatinine 1.6 which is close to baseline of 1.4-1.5. Liver enzymes were unremarkable Troponin was slightly elevated at 0.73. Urine analysis is suspicious for infection Urine culture is pending blood cultures pending Influenza A and type B, RSV, SARS (coronavirus) are and detected EKG showing atrial fibrillation at [address] T changes and QTC 431 Chest x-ray suspicious for right lower lobe infiltrate. Patient is a started on Zithromax and Zosyn on admission with pulmonary and ID consult 08/06/2023 Patient with no respiratory symptoms other than occasional cough no dyspnea and no chest pain. Patient is still thinks his urine stinks more than usual however no dysuria but he complains from decrease frequency of urination. He got in no IV fluid. Patient also feels generally weak therefore we will con consult PT/OT which is pending for now urine culture is growing gram-negative bacilli and patient currently on Zosyn. Zithromax discontinued Labs showing hemodilution with hemoglobin 11.5, 9.8, WBC 11.5, 10.5. Creatinine Patient with evidence of increased creatinine 2.3, check bladder scan which was handed 250 mm. We'll check renal ultrasound and consult yield engineer was started the patient on normal saline 75 mL/h and hold oral Lasix 20 mg twice daily Review of systems CONSTITUTIONAL: No fever, no malaise, no fatigue. HEENT: No recent visual problems or hearing problems. Denied any sore throat. CARDIOVASCULAR: No orthopnea, PND, no palpitations, no syncope. PULMONARY: No shortness of breath, no cough, no hemoptysis. GASTROINTESTINAL: No diarrhea, no nausea, no vomiting, no abdominal pain. Normoactive bowel sounds. Objective - Vital Signs Vital signs: Vital Signs Temp 97.8 F 08/06/23 04:00 Pulse 70 08/06/23 04:00 Resp 18 08/06/23 04:00 BP 118/71 08/06/23 04:00 Pulse Ox 97 08/06/23 04:00 FiO2 Intake & Output 08/05/23 08/06/23 08/06/23 18:59 06:59 18:59 Intake Total 240 Output Total 600 500 400 Balance -600 -500 -160 Intake: Oral 240 Output: Urine 600 500 400 Other: Voiding Method Urinal Urinal Diaper Diaper # Voids 1 # Bowel Movements 1 - Labs CBC & Chem 7: 08/06/23 08:11 08/06/23 08:11 Labs: Abnormal Lab Results - Last 24 Hours (Table) 08/05/23 08/05/23 08/05/23 Range/Units 11:17 16:20 20:00 RBC (4.30-5.90) m/uL Hgb (13.0-17.5) gm/dL Hct (39.0-53.0) % Sodium (137-145) mmol/L BUN (9-20) mg/dL Creatinine (0.66-1.25) mg/dL Glucose (74-99) mg/dL POC Glucose (mg/dL) 277 H 267 H (70-110) mg/dL Calcium (8.4-10.2) mg/dL Procalcitonin 17.80 H (0.02-0.09) ng/mL 08/06/23 08/06/23 08/06/23 Range/Units 06:18 08:11 08:11 RBC 3.73 L (4.30-5.90) m/uL Hgb 9.8 L D (13.0-17.5) gm/dL Hct 31.2 L (39.0-53.0) % Sodium 136 L (137-145) mmol/L BUN 52 H (9-20) mg/dL Creatinine 2.37 H (0.66-1.25) mg/dL Glucose 205 H (74-99) mg/dL POC Glucose (mg/dL) 249 H (70-110) mg/dL Calcium 7.4 L (8.4-10.2) mg/dL Procalcitonin (0.02-0.09) ng/mL 08/06/23 Range/Units 11:49 RBC (4.30-5.90) m/uL Hgb (13.0-17.5) gm/dL Hct (39.0-53.0) % Sodium (137-145) mmol/L BUN (9-20) mg/dL Creatinine (0.66-1.25) mg/dL Glucose (74-99) mg/dL POC Glucose (mg/dL) 281 H (70-110) mg/dL Calcium (8.4-10.2) mg/dL Procalcitonin (0.02-0.09) ng/mL Microbiology - Last 24 Hours (Table) 08/04/23 13:30 Urine Culture - Preliminary Urine,Voided Gram Neg Bacilli 08/04/23 13:15 Blood Culture - Preliminary Blood 08/04/23 13:30 Blood Culture - Preliminary Blood Assessment and Plan Assessment: Acute urinary tract infection Recurrent falls with syncope metabolic encephalopathy Acute kidney injury Dehydration Right lower lobe infiltrate suspicious for pneumonia, patient with minimal symptoms clinically History of prostate cancer and follow-up with urologist as an outpatient History of left kidney past plans on immunosuppressive therapy Mild sepsis with fever and leukocytosis, present on admission Paroxysmal atrial fibrillation with rate controlled Hypertension Diabetes mellitus Hyperlipidemia Chronic back pain Plan: Continue with antibiotic, currently on Zosyn Follow-up urine culture Start normal saline and hold Lasix consult yield engineer and check renal ultrasound Infectious disease consult on pulmonary consult cardiology team consult giving his a fib and syncope Labs and medication were reviewed.. Continue same treatment. Continue with symptomatic treatment. Resume home medication. Monitor labs and vitals. DVT and GI prophylaxis. Further recommendations as per clinical course of the patient DVT prophylaxis: Subcutaneous heparin GI Prophylaxis: Pepcid PT/OT: Pending Prognosis is guarded
[2023-08-06] MEDS: QUEtiapine 100 MG TAB PO SCH (20:19)
[2023-08-06] MEDS: GABAPENTIN 300 MG CAP PO SCH (20:20)
[2023-08-06] MEDS: ATORVASTATIN 10 MG TAB PO SCH (20:20)
[2023-08-06 20:26] LABS: Glucose,Whole Blood 258 mg/dL (70-110)
[2023-08-06] MEDS: SODIUM CHLORIDE 0.9% 1,000 ML IV SCH (20:30)
--- NOTE | 2023-08-06 21:11 | US ---
EXAMINATION TYPE: US renals and bladder DATE OF EXAM: 08/06/2023 COMPARISON: US 06/02/2023 CLINICAL INDICATION: Male, 82 years old with history of marcel; MARCEL, Hx of renal transplant surgery 2002 EXAM MEASUREMENTS: Nikolai Right Kidney: 10.0 x 4.2 x 4.5 cm Nikolai Left Kidney: 10.8 x 5.3 x 6.1 cm Transplant Kidney Left Pelvis: 11.5 x 5.1 x 5.1 cm Nikolai Right Kidney: Anechoic area seen upper pole: 1.0 x 0.7 x 0.7 cm. Nikolai Left Kidney: Limited visibility. Transplant kidney within Left Pelvis: Appearance of hydronephrosis. Anechoic area seen upper pole/laterally: 1.7 x 1.5 x 1.1 cm. Bladder: *Internal echoes/debris seen within: 4.0 x 5.5 x 1.1 cm. Bilateral Jets seen: No IMPRESSION: 1. Upper pole right renal cyst. 2. Transplant kidney with mild hydronephrosis. 3. Debris within the urinary bladder follow-up recommended
[2023-08-06] MEDS: VIT A,C & E-LUTEIN-MINERALS 1 EACH TAB PO SCH (21:22)
[2023-08-07] MEDS: ELTROMBOPAG OLAMINE PO SCH (05:50)
[2023-08-07 06:07] LABS: Glucose,Whole Blood 180 mg/dL (70-110)
[2023-08-07] MEDS: PIPERACILLIN-TAZOBACTAM 3.375 GM in SODIUM CHLORIDE 0.9% 100 ML IVPB SCH (06:34)
[2023-08-07] MEDS: LEVOTHYROXINE 75 MCG TAB PO SCH (06:35)
[2023-08-07] MEDS: PANTOPRAZOLE 40 MG TABLET PO SCH (06:35)
[2023-08-07] MEDS: INSULIN ASPART (NovoLOG) 100 UNIT/ML VIAL SQ SCH ×4 (06:36→21:24)
[2023-08-07] MEDS: Mirabegron [Myrbetriq] 50 MG Tab.Er.24h PO SCH (07:49)
[2023-08-07] MEDS: hydrALAZINE HCL 50 MG TAB PO SCH ×3 (08:08→20:12)
[2023-08-07] MEDS: TACROLIMUS 1 MG CAP PO SCH ×2 (08:08→20:12)
[2023-08-07] MEDS: FAMOTIDINE 20 MG/2 ML VIAL IV SCH (08:09)
[2023-08-07] MEDS: SODIUM BICARBONATE TAB 650 MG TAB PO SCH ×2 (08:09→20:11)
[2023-08-07] MEDS: TAMSULOSIN 0.4 MG CAP.ER.24H PO SCH (08:09)
[2023-08-07] MEDS: MAGNESIUM OXIDE 400 MG TAB PO SCH (08:09)
[2023-08-07] MEDS: HEPARIN SODIUM,PORCINE 5,000 UNIT/ML 1 ML VIAL SQ SCH ×2 (08:09→20:13)
[2023-08-07] MEDS: ASPIRIN 81 MG PO SCH (08:09)
[2023-08-07] MEDS: FINASTERIDE 5 MG TAB PO SCH (08:09)
[2023-08-07] MEDS: METOPROLOL TARTRATE 50 MG TAB PO SCH ×2 (08:09→20:12)
[2023-08-07] MEDS: DULoxetine HCL 60 MG CAPSULE.DR PO SCH (08:09)
[2023-08-07] MEDS: MULTIVITAMINS, THERA 1 EACH TAB PO SCH (08:09)
[2023-08-07] MEDS: SODIUM CHLORIDE 0.9% 1,000 ML IV SCH (09:03)
[2023-08-07 09:35] LABS: HCT 31.8 % (39.0-53.0); Hypochromasia Moderate; MCH 26.4 pg (25.0-35.0); MCHC 31.4 g/dL (31.0-37.0); MCV 84.1 fL (80.0-100.0); Mean Platelet Volume 8.5; Platelet Count 187 k/uL (150-450); RBC 3.78 m/uL (4.30-5.90); RDW 15.4 % (11.5-15.5); WBC 8.5 k/uL (3.8-10.6)
[2023-08-07 10:43] LABS: African American GFR (CKD) 38 (>60 ml/min/1.73 sqM); Anion Gap 9 mmol/L; Blood Urea Nitrogen 43 mg/dL (9-20); Calcium 7.2 mg/dL (8.4-10.2); Carbon Dioxide 23 mmol/L (22-30); Chloride 106 mmol/L (98-107); Glucose 173 mg/dL (74-99); Non-African American GFR(CKD) 33 (>60 ml/min/1.73 sqM); Potassium 4.1 mmol/L (3.5-5.1); Sodium 138 mmol/L (137-145)
--- NOTE | 2023-08-07 10:43 | P.PN ---
Subjective Progress Note Date: 08/07/23 On 08/07/2023, I am seeing the patient for a follow-up. This is a 82-year-old male patient who presented with nausea and emesis and acute hypoxic respiratory failure with a recent episode of pneumonia. The patient was also having some altered mentation attributed to dehydration and sepsis and he was suspected to have UTI with gram-negative bacillus. Noted the patient has kidney transplantation and currently on a combination of Prograf CellCept and prednisone outpatient basis. He suffers from chronic stage III kidney disease, diabetes mellitus with insulin dependence with diabetic neuropathy, hyp ertension, prostate cancer, peripheral vascular disease and hypothyroidism. Note that the patient was complaining of some shortness of breath in the emergency department. His viral screen came back negative. His chest x-ray showed no acute abnormalities, possibility of a right lower lobe pneumonia cannot be completely excluded. The patient was covered with a combination of Zosyn and Zithromax. He is currently on oxygen on room air with a pulse ox of 96%. He is also growing gram-negative bacillus in the urine, blood cultures are negative thus far. Furthermore, the cultures came back positive for E. coli and this is an ESBL producing organism. Based on those results, antibiotics which is recommended. Objective - Vital Signs Vital signs: Vital Signs Temp 98.2 F 08/07/23 08:00 Pulse 72 08/07/23 08:00 Resp 18 08/07/23 08:00 BP 154/86 08/07/23 08:00 Pulse Ox 95 08/07/23 08:00 FiO2 Intake & Output 08/06/23 08/07/23 08/07/23 18:59 06:59 18:59 Intake Total 598 240 Output Total 1000 700 400 Balance -402 -700 -160 Intake: Oral 598 240 Output: Urine 1000 700 400 Other: Voiding Method Urinal Urinal Diaper # Voids 1 - Exam No acute distress, oriented 3. Currently on room air. HEENT examination is grossly unremarkable. Mucous membranes are moist. No oral lesions. Neck supple. Full range of motion. No adenopathy thyromegaly or neck vein distention. Cardiovascular examination reveals regular rhythm rate. S1-S2 normal. No S3 or S4. No discernible murmur noted. Lungs reveal mostly clear breath sounds. No wheezes. No rhonchi. No crackles. Abdomen soft bowel sounds are heard. No masses or tenderness. Extremities are intact. No cyanosis clubbing or edema. Skin is without rash or lesion. Neurologic examination is brief but nonfocal. - Labs CBC & Chem 7: 08/07/23 09:00 08/06/23 08:11 Labs: Abnormal Lab Results - Last 24 Hours (Table) 08/06/23 08/06/23 08/06/23 Range/Units 08:11 11:49 16:47 RBC (4.30-5.90) m/uL Hgb (13.0-17.5) gm/dL Hct (39.0-53.0) % POC Glucose (mg/dL) 281 H 180 H (70-110) mg/dL Hemoglobin A1c 6.3 H (<=6.0) % 08/06/23 08/07/23 08/07/23 Range/Units 20:24 06:06 09:00 RBC 3.78 L (4.30-5.90) m/uL Hgb 10.0 L (13.0-17.5) gm/dL Hct 31.8 L (39.0-53.0) % POC Glucose (mg/dL) 258 H 180 H (70-110) mg/dL Hemoglobin A1c (<=6.0) % Microbiology - Last 24 Hours (Table) 08/04/23 13:30 Urine Culture - Final Urine,Voided Escherichia coli 08/04/23 13:15 Blood Culture - Preliminary Blood 08/04/23 13:30 Blood Culture - Preliminary Blood Assessment and Plan Plan: Assessment E. coli UTI and this is an ESBL producing organism. The patient's is currently on Zosyn and Zithromax. Nausea and emesis, improving Acute hypoxic respiratory failure, questionable right lower lobe pneumonia, currently on Zosyn and Zithromax Altered mental status, improving Renal transplantation maintain a combination of Prograf CellCept and prednisone Chronic immunosuppression secondary to above Chronic stage III kidney disease Anemia of chronic disease Insulin-dependent diabetes mellitus Diabetic neuropathy Hypertension Prostate cancer Peripheral vascular disease Hypothyroidism Plan Suggest switching the patient IV Invanz We'll put the patient on stress dose hydrocortisone Procalcitonin level was elevated. Patient is currently on room air oxygen. Continue home medications. Continue IV fluids at 75 cc an hour normal saline. ontinue Prograf and CellCept and the patient may benefit from stress dose hydrocortisone. Will continue to follow.
[2023-08-07] MEDS: HYDROCORTISONE SUCCINATE 100 MG/2 ML VIAL IV SCH ×3 (11:12→23:43)
[2023-08-07 11:49] LABS: Glucose,Whole Blood 213 mg/dL (70-110)
--- NOTE | 2023-08-07 12:56 | P.NPCON ---
History of Present Illness - Reason for Consult acute renal failure, chronic renal failure - History of Present Illness Reason for consultation: Acute kidney injury on chronic kidney disease History of present illness: Patient is a 82-year-old male seen in renal consultation for acute kidney injury on chronic kidney disease. Patient has chronic kidney disease stage III with baseline creatinine 1.4-1.5 secondary to long-term calcineurin inhibitor use and solitary kidney. Patient received a donor kidney transplant in 2002. Patient came to the hospital due to concern for infection. Patient states he was having burning with urination and was advised by his primary care physician cuca "at the hospital. He denies chest pain or shortness of breath. Urine cultures positive for E. coli anemia receiving IV antibiotics. Blood cultures have been negative so far. Creatinine peaked at 2.37 this admission is 1.9 today. Mild hydronephrosis noted on the transplant kidney. Diuretics were stopped 08/06/2023. Oral intake is fair. He is receiving IV fluids. Patient is receiving his antirejection medications. Vital signs are stable. General: No acute distress. HEENT: Head exam is unremarkable. LUNGS: No audible rhonchi or wheezes. HEART: Rate and Rhythm are regular. ABDOMEN: Nontender. EXTREMITITES: No edema. 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." Hard of hearing, LOW PLATELETS, History of Any Multi-Drug Resistant Organisms: None Reported Past Surgical History: Unable to Obtain, Orthopedic Surgery Additional Past Surgical History / Comment(s): 12/02/21, KYPHOPLASTY AND BX (NEG). Leftkidney transplant 2002, parathyroid surgery, arthroscopy knee surgery, pericardiocentesis, cancer removed from ear, Past Anesthesia/Blood Transfusion Reactions: No Reported Reaction Past Psychological History: Anxiety, Depression Additional Psychological History / Comment(s): Pt resides with spouse. Smoking Status: Never smoker Past Alcohol Use History: None Reported Past Drug Use History: None Reported - Past Family History Father Family Medical History: Deep Vein Thrombosis (DVT) Son(s) Family Medical History: Cancer Additional Family Medical History / Comment(s): Skin cancer. Mother Family Medical History: Cancer Additional Family Medical History / Comment(s): . Medications and Allergies Home Medications Medication Instructions Recorded Confirmed Type Finasteride [Proscar] 5 mg PO DAILY 02/09/17 08/04/23 History Tamsulosin HCl [Flomax] 0.4 mg PO DAILY 02/09/17 08/04/23 History Multivitamins, Thera [Multivitamin 1 tab PO DAILY 12/31/18 08/04/23 History (formulary)] Vit C/E/Zn/Coppr/Lutein/Zeaxan 1 cap PO HS 12/18/19 08/04/23 History [Preservision Areds 2 Softgel] Pantoprazole [Protonix] 40 mg PO DAILY 12/28/19 08/04/23 History Tacrolimus [Prograf] 1 mg PO BID 04/03/20 08/04/23 History mycophenolate mofetiL [Cellcept] 250 mg PO BID 04/03/20 08/04/23 History DULoxetine HCL [Cymbalta] 120 mg PO DAILY 12/01/20 08/04/23 History Levothyroxine Sodium [Synthroid] 75 mcg PO DAILY 12/01/20 08/04/23 History Aspirin 81 mg PO DAILY 07/12/21 08/04/23 History Gabapentin 300 mg PO HS 07/12/21 08/04/23 History QUEtiapine [SEROquel] 100 mg PO HS 07/12/21 08/04/23 History Rosuvastatin Calcium [Crestor] 5 mg PO HS 07/12/21 08/04/23 History Sodium Bicarbonate Tab 650 mg PO BID 07/12/21 08/04/23 History rOPINIRole HCL [Requip] 1 mg PO HS 09/02/21 08/04/23 History Insulin Glargine/Lixisenatide 30 units SQ DAILY 12/01/21 08/04/23 History [Soliqua 100 Unit-33 Mcg/ml Pen] Eltrombopag Olamine [Promacta] 12.5 mg PO DAILY@0700 05/31/23 08/04/23 History Insulin Lispro [humaLOG Kwikpen] See Protocol SQ AC-TID 05/31/23 08/04/23 History Mirabegron [Myrbetriq] 50 mg PO DAILY 05/31/23 08/04/23 History predniSONE 10 mg PO DAILY 05/31/23 08/04/23 History Metoprolol Tartrate [Lopressor] 50 mg PO BID #60 tab 06/06/23 08/04/23 Rx Acetaminophen Tab [Tylenol] 500 mg PO Q6HR PRN tab 06/07/23 08/04/23 Rx Loperamide [Imodium] 2 mg PO QID PRN cap 06/07/23 08/04/23 Rx Magnesium Oxide [Mag-Ox] 400 mg PO DAILY tab 06/07/23 08/04/23 Rx hydrALAZINE HCL [Apresoline] 100 mg PO TID #90 tab 06/07/23 08/04/23 Rx Furosemide [Lasix] 20 mg PO BID@0900,1600 #10 tab 07/31/23 08/04/23 Rx cefUROXime axetiL [Ceftin] 500 mg PO BID 5 Days #10 tab 07/31/23 08/04/23 Rx Allergies Allergy/AdvReac Type Severity Reaction Status Date / Time morphine Allergy Severe Itching Verified 08/04/23 15:43 Physical Exam Vitals: Vital Signs Temp Pulse Resp BP Pulse Ox 08/07/23 11:45 80 16 142/79 97 08/07/23 08:00 98.2 F 72 18 154/86 95 08/07/23 04:00 98.1 F 75 16 142/68 95 08/06/23 23:47 98 F 75 16 129/72 97 08/06/23 20:14 98 F 78 18 137/69 96 08/06/23 16:00 97.9 F 66 20 135/69 99 Intake and Output 08/06/23 08/07/23 08/07/23 22:59 06:59 14:59 Intake Total 358 240 Output Total 600 700 400 Balance -242 -700 -160 Intake: Oral 358 240 Output: Urine 600 700 400 Other: Voiding Method Urinal Urinal Urinal Diaper Diaper # Voids 1 Results - Lab Results Most recent lab results Calcium 7.2 mg/dL (8.4-10.2) L 08/07/23 09:00 08/07/23 09:00 08/07/23 09:00 Assessment and Plan Plan: Assessment: 1. Acute kidney injury secondary to vasomotor nephropathy secondary to infection and diuresis. Creatinine peaked at 2.37 this admission and is down to 1.9 today. Mild hydronephrosis noted on transplant kidney. 2. Chronic kidney disease stage IIIa with baseline creatinine 1.3-1.5 secondary to long-term CNI use in solitary kidney. 3. E. coli UTI on antibiotics. Also concern for pneumonia. 4. Hypertension with chronic kidney disease. 5. Chronic diastolic CHF and moderate mitral regurgitation, tricuspid regurgitation and aortic insufficiency. Plan: Maintain IV fluids. Decrease rate to 50 mL an hour. Continue to hold diuretics. Hold CellCept in the setting of acute infection. Maintain Prograf. Also on hydrocortisone. Check Prograf level. Avoid nephrotoxins. Thank you for the consultation. I will continue to follow the patient with you during his hospital stay.
--- NOTE | 2023-08-07 14:06 | P.PN ---
Subjective Progress Note Date: 08/07/23 Chief complaint: Generalized weakness History of present illness: The patient is a 82-year-old gentleman with a past medical history significant for paroxysmal atrial fibrillation for some reason not on anticoagulation and the patient does not recall the exact reason why he was not on anticoagulation as well as hypertension and dyslipidemia and history of renal transplant and also multiple comorbid condition and the patient somewhat is poor historian. He was just discharged from the hospital a few days ago after he was admitted with a pneumonia. This time he presented with generalized weakness and fatigue and frequent falling was no loss of consciousness or change in mental status and symptoms of nausea and vomiting. No pain in the chest and no shortness of breath and no dizziness or lightheadedness and no presyncope or syncope. He underwent further workup including chest x-ray showed infiltrate consistent with pneumonia and currently is on antibiotic. Troponin came in to be slightly elevated which appeared to be chronic and was consistent with the previous admission. The EKG initially showed atrial fibrillation but subsequently he was converted to normal sinus mechanism. The creatinine is a slightly abnormal. During the last admission he underwent an echo which revealed normal LV systolic function was moderate aortic insufficiency. The patient currently is hemodynamic stable and he is completely asymptomatic from a cardiovascular standpoint of view. 08/07 Patient is seen today in follow-up. He states he follows with Dr. Crabtree in the office. 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 Blood pressure 142/79, heart rate in the 70s and 80s. BUN 43 creatinine 1.9, hemoglobin 10. The examination is remarkable for distant heart sounds with a systolic murmur at the right upper sternal border and finished breathing sounds bilaterally. No edema was noted in the lower extremities. 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 Please reconsult for any new concerns. Patient may follow-up in the office with Dr. IDA Crabtree in one to 2 weeks. Nurse practitioner note has been reviewed, I agree with the documented findings and plan of care. Patient was seen and examined. Objective - Vital Signs Vital signs: Vital Signs Temp 98.2 F 08/07/23 08:00 Pulse 80 08/07/23 11:45 Resp 16 08/07/23 11:45 BP 142/79 08/07/23 11:45 Pulse Ox 97 08/07/23 11:45 FiO2 Intake & Output 08/06/23 08/07/23 08/07/23 18:59 06:59 18:59 Intake Total 598 240 Output Total 1000 700 400 Balance -402 -700 -160 Intake: Oral 598 240 Output: Urine 1000 700 400 Other: Voiding Method Urinal Urinal Diaper # Voids 1 - Labs CBC & Chem 7: 08/07/23 09:00 08/07/23 09:00 Labs: Abnormal Lab Results - Last 24 Hours (Table) 08/06/23 08/06/23 08/06/23 Range/Units 08:11 16:47 20:24 RBC (4.30-5.90) m/uL Hgb (13.0-17.5) gm/dL Hct (39.0-53.0) % BUN (9-20) mg/dL Creatinine (0.66-1.25) mg/dL Glucose (74-99) mg/dL POC Glucose (mg/dL) 180 H 258 H (70-110) mg/dL Hemoglobin A1c 6.3 H (<=6.0) % Calcium (8.4-10.2) mg/dL 08/07/23 08/07/23 08/07/23 Range/Units 06:06 09:00 09:00 RBC 3.78 L (4.30-5.90) m/uL Hgb 10.0 L (13.0-17.5) gm/dL Hct 31.8 L (39.0-53.0) % BUN 43 H (9-20) mg/dL Creatinine 1.90 H (0.66-1.25) mg/dL Glucose 173 H (74-99) mg/dL POC Glucose (mg/dL) 180 H (70-110) mg/dL Hemoglobin A1c (<=6.0) % Calcium 7.2 L (8.4-10.2) mg/dL 08/07/23 Range/Units 11:47 RBC (4.30-5.90) m/uL Hgb (13.0-17.5) gm/dL Hct (39.0-53.0) % BUN (9-20) mg/dL Creatinine (0.66-1.25) mg/dL Glucose (74-99) mg/dL POC Glucose (mg/dL) 213 H (70-110) mg/dL Hemoglobin A1c (<=6.0) % Calcium (8.4-10.2) mg/dL Microbiology - Last 24 Hours (Table) 08/04/23 13:30 Urine Culture - Final Urine,Voided Escherichia coli 08/04/23 13:15 Blood Culture - Preliminary Blood 08/04/23 13:30 Blood Culture - Preliminary Blood
[2023-08-07 16:10] LABS: Glucose,Whole Blood 299 mg/dL (70-110)
--- NOTE | 2023-08-07 16:29 | P.PN ---
Subjective Progress Note Date: 08/14/23 Is a 82-year-old gentleman with chronic kidney disease, solitary kidney, decreased donor kidney transplant admitted with sepsis secondary to ESBL E. coli UTI and multiple other medical issues. Preliminary Blood cultures negative. Maintained on ertapenem as per infectious disease. Diuretics remain on hold, maintained on gentle IV fluid hydration, BUN 43, creatinine 1.9. Denies chest pain, palpitations or shortness of breath. Maintaining O2 sats in the mid to high 90s on room air. Objective - Vital Signs Vital signs: Vital Signs Temp 97.8 F 08/07/23 15:40 Pulse 72 08/07/23 15:40 Resp 16 08/07/23 15:40 BP 156/85 08/07/23 15:40 Pulse Ox 96 08/07/23 15:40 FiO2 Intake & Output 08/06/23 08/07/23 08/07/23 18:59 06:59 18:59 Intake Total 598 358 Output Total 1000 700 700 Balance -402 -700 -342 Intake: Oral 598 358 Output: Urine 1000 700 700 Other: Voiding Method Urinal Urinal Diaper # Voids 1 - Exam - Exam PHYSICAL EXAM: VITAL SIGNS: As above GENERAL: Alert and oriented 3, Sitting up in bed, no acute distress HEENT: Normocephalic, Conjunctivae normal. eyes normal. NECK: Supple, No JVD. CARDIOVASCULAR: S1, S2 regular.systolic murmur RESPIRATION: Unlabored, Breath sounds diminished in the bases. ABDOMEN: Soft, nontender . No guarding. no masses palpable. +BS LEGS: No edema. no swelling. NERVOUS SYSTEM: Cranial N 2-12 grossly normal. No focal deficits. Strength and sensation grossly intact. Skin: Warm and dry, no rash Microbiology 08/04/23 13:30 Urine,Voided Urine Culture - Final Escherichia coli 08/04/23 13:15 Blood Blood Culture - Preliminary 08/04/23 13:30 Blood Blood Culture - Preliminary - Labs CBC & Chem 7: 08/07/23 09:00 08/07/23 09:00 Labs: Abnormal Lab Results - Last 24 Hours (Table) 08/06/23 08/06/23 08/07/23 Range/Units 16:47 20:24 06:06 RBC (4.30-5.90) m/uL Hgb (13.0-17.5) gm/dL Hct (39.0-53.0) % BUN (9-20) mg/dL Creatinine (0.66-1.25) mg/dL Glucose (74-99) mg/dL POC Glucose (mg/dL) 180 H 258 H 180 H (70-110) mg/dL Calcium (8.4-10.2) mg/dL 08/07/23 08/07/23 08/07/23 Range/Units 09:00 09:00 11:47 RBC 3.78 L (4.30-5.90) m/uL Hgb 10.0 L (13.0-17.5) gm/dL Hct 31.8 L (39.0-53.0) % BUN 43 H (9-20) mg/dL Creatinine 1.90 H (0.66-1.25) mg/dL Glucose 173 H (74-99) mg/dL POC Glucose (mg/dL) 213 H (70-110) mg/dL Calcium 7.2 L (8.4-10.2) mg/dL 08/07/23 Range/Units 16:08 RBC (4.30-5.90) m/uL Hgb (13.0-17.5) gm/dL Hct (39.0-53.0) % BUN (9-20) mg/dL Creatinine (0.66-1.25) mg/dL Glucose (74-99) mg/dL POC Glucose (mg/dL) 299 H (70-110) mg/dL Calcium (8.4-10.2) mg/dL Microbiology - Last 24 Hours (Table) 08/04/23 13:30 Urine Culture - Final Urine,Voided Escherichia coli 08/04/23 13:15 Blood Culture - Preliminary Blood 08/04/23 13:30 Blood Culture - Preliminary Blood Assessment and Plan Assessment: Acute sepsis secondary to ESBL E. coli UTI Acute hypoxic respiratory failure secondary to possible right lower lobe pneumonia Renal transplant on chronic immunosuppression Acute renal failure secondary to diuresis, infection Chronic renal failure stage IIIA, history of renal transplant, baseline creatinine 1.2-1.4. 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 Craig Depression Anxiety Plan: Continue on current medication regime ,monitoring and symptomatic treatment. IV fluids /diuretics as per nephrology; diuretics currently on hold. Continues on IV antibiotics of Invanz as per ID. The impression and plan of care has been dictated as directed. : I performed a history and examination of this patient, discussed the same with the dictator. I agree with the dictator's note ,documented as a scribe. Any additional findings or plans will be noted.
[2023-08-07 19:56] LABS: Glucose,Whole Blood 351 mg/dL (70-110)
[2023-08-07] MEDS: QUEtiapine 100 MG TAB PO SCH (20:12)
[2023-08-07] MEDS: VIT A,C & E-LUTEIN-MINERALS 1 EACH TAB PO SCH (20:12)
[2023-08-07] MEDS: GABAPENTIN 300 MG CAP PO SCH (20:12)
[2023-08-07] MEDS: ATORVASTATIN 10 MG TAB PO SCH (20:12)
[2023-08-08] MEDS: ELTROMBOPAG OLAMINE PO SCH (05:56)
[2023-08-08 06:09] LABS: Glucose,Whole Blood 337 mg/dL (70-110)
[2023-08-08] MEDS: LEVOTHYROXINE 75 MCG TAB PO SCH (06:13)
[2023-08-08] MEDS: PANTOPRAZOLE 40 MG TABLET PO SCH (06:14)
[2023-08-08] MEDS: INSULIN ASPART (NovoLOG) 100 UNIT/ML VIAL SQ SCH ×5 (06:15→20:47)
[2023-08-08] MEDS: Mirabegron [Myrbetriq] 50 MG Tab.Er.24h PO SCH (07:42)
[2023-08-08] MEDS: hydrALAZINE HCL 50 MG TAB PO SCH ×3 (08:00→20:42)
[2023-08-08] MEDS: METOPROLOL TARTRATE 50 MG TAB PO SCH ×2 (08:00→20:45)
[2023-08-08] MEDS: DULoxetine HCL 60 MG CAPSULE.DR PO SCH (08:00)
[2023-08-08] MEDS: HEPARIN SODIUM,PORCINE 5,000 UNIT/ML 1 ML VIAL SQ SCH ×2 (08:00→20:47)
[2023-08-08] MEDS: ASPIRIN 81 MG PO SCH (08:00)
[2023-08-08] MEDS: ERTAPENEM 1 GM in SODIUM CHLORIDE 0.9% 50 ML IVPB SCH (08:00)
[2023-08-08] MEDS: HYDROCORTISONE SUCCINATE 100 MG/2 ML VIAL IV SCH ×3 (08:00→23:58)
[2023-08-08] MEDS: FAMOTIDINE 20 MG/2 ML VIAL IV SCH (08:00)
[2023-08-08] MEDS: TACROLIMUS 1 MG CAP PO SCH ×2 (08:01→20:46)
[2023-08-08] MEDS: MULTIVITAMINS, THERA 1 EACH TAB PO SCH (08:01)
[2023-08-08] MEDS: MAGNESIUM OXIDE 400 MG TAB PO SCH (08:01)
[2023-08-08] MEDS: SODIUM BICARBONATE TAB 650 MG TAB PO SCH ×2 (08:01→20:44)
[2023-08-08] MEDS: FINASTERIDE 5 MG TAB PO SCH (08:01)
[2023-08-08] MEDS: TAMSULOSIN 0.4 MG CAP.ER.24H PO SCH (08:01)
[2023-08-08] MEDS: SODIUM CHLORIDE 0.9% 1,000 ML IV SCH (08:01)
[2023-08-08 09:45] LABS: African American GFR (CKD) 37 (>60 ml/min/1.73 sqM); Anion Gap 9 mmol/L; Blood Urea Nitrogen 42 mg/dL (9-20); Calcium 7.3 mg/dL (8.4-10.2); Carbon Dioxide 22 mmol/L (22-30); Chloride 106 mmol/L (98-107); Glucose 329 mg/dL (74-99); Magnesium 1.9 mg/dL (1.6-2.3); Non-African American GFR(CKD) 32 (>60 ml/min/1.73 sqM); Potassium 4.4 mmol/L (3.5-5.1); Sodium 137 mmol/L (137-145)
--- NOTE | 2023-08-08 09:56 | P.PN ---
Subjective Progress Note Date: 08/08/23 On 08/07/2023, I am seeing the patient for a follow-up. This is a 82-year-old male patient who presented with nausea and emesis and acute hypoxic respiratory failure with a recent episode of pneumonia. The patient was also having some altered mentation attributed to dehydration and sepsis and he was suspected to have UTI with gram-negative bacillus. Noted the patient has kidney transplantation and currently on a combination of Prograf CellCept and prednisone outpatient basis. He suffers from chronic stage III kidney disease, diabetes mellitus with insulin dependence with diabetic neuropathy, hyp ertension, prostate cancer, peripheral vascular disease and hypothyroidism. Note that the patient was complaining of some shortness of breath in the emergency department. His viral screen came back negative. His chest x-ray showed no acute abnormalities, possibility of a right lower lobe pneumonia cannot be completely excluded. The patient was covered with a combination of Zosyn and Zithromax. He is currently on oxygen on room air with a pulse ox of 96%. He is also growing gram-negative bacillus in the urine, blood cultures are negative thus far. Furthermore, the cultures came back positive for E. coli and this is an ESBL producing organism. Based on those results, antibiotics which is recommended. On 08/08/2023, the patient is resting comfortably in bed. He is on room air oxygen. No respiratory distress. He is currently on IV Invanz for an ESBL producing E. coli in his urine. No other complaints otherwise. His blood work was noted. The sodium is at 137, BUN is a 42 with a creatinine of 1.9. Potassium levels at 4.4. Objective - Vital Signs Vital signs: Vital Signs Temp 98.4 F 08/08/23 08:00 Pulse 94 08/08/23 08:00 Resp 16 08/08/23 08:00 BP 160/88 08/08/23 08:00 Pulse Ox 96 08/08/23 08:00 FiO2 Intake & Output 08/07/23 08/08/23 08/08/23 18:59 06:59 18:59 Intake Total 358 118 Output Total 1050 725 Balance -692 -725 118 Intake: Oral 358 118 Output: Urine 1050 725 Other: Voiding Method Urinal Urinal Urinal # Voids 1 - Exam No acute distress, oriented 3. Currently on room air. HEENT examination is grossly unremarkable. Mucous membranes are moist. No oral lesions. Neck supple. Full range of motion. No adenopathy thyromegaly or neck vein distention. Cardiovascular examination reveals regular rhythm rate. S1-S2 normal. No S3 or S4. No discernible murmur noted. Lungs reveal mostly clear breath sounds. No wheezes. No rhonchi. No crackles. Abdomen soft bowel sounds are heard. No masses or tenderness. Extremities are intact. No cyanosis clubbing or edema. Skin is without rash or lesion. Neurologic examination is brief but nonfocal. - Labs CBC & Chem 7: 08/07/23 09:00 08/08/23 08:01 Labs: Abnormal Lab Results - Last 24 Hours (Table) 08/07/23 08/07/23 08/07/23 Range/Units 09:00 11:47 16:08 BUN 43 H (9-20) mg/dL Creatinine 1.90 H (0.66-1.25) mg/dL Glucose 173 H (74-99) mg/dL POC Glucose (mg/dL) 213 H 299 H (70-110) mg/dL Calcium 7.2 L (8.4-10.2) mg/dL 08/07/23 08/08/23 08/08/23 Range/Units 19:53 06:04 08:01 BUN 42 H (9-20) mg/dL Creatinine 1.94 H (0.66-1.25) mg/dL Glucose 329 H (74-99) mg/dL POC Glucose (mg/dL) 351 H 337 H (70-110) mg/dL Calcium 7.3 L (8.4-10.2) mg/dL Microbiology - Last 24 Hours (Table) 08/04/23 13:15 Blood Culture - Preliminary Blood 08/04/23 13:30 Blood Culture - Preliminary Blood Assessment and Plan Plan: Assessment E. coli UTI and this is an ESBL producing organism. The patient's is currently on IV Invanz Nausea and emesis, improving Acute hypoxic respiratory failure, improved and the patient is currently on room air oxygen Altered mental status, improving Renal transplantation maintain a combination of Prograf CellCept and prednisone Chronic immunosuppression secondary to above Chronic stage III kidney disease Anemia of chronic disease Insulin-dependent diabetes mellitus Diabetic neuropathy Hypertension Prostate cancer Peripheral vascular disease Hypothyroidism Plan Continue IV Invanz We'll put the patient on stress dose hydrocortisone as the patient has been taking steroids on outpatient basis Procalcitonin level was elevated. Patient is currently on room air oxygen. Continue home medications. Continue IV fluids at 75 cc an hour normal saline. ontinue Prograf and CellCept and the patient may benefit from stress dose hydrocortisone. Will continue to follow.
[2023-08-08 11:32] LABS: Glucose,Whole Blood 353 mg/dL (70-110)
--- NOTE | 2023-08-08 11:36 | P.PN ---
Subjective Patient is seen in follow-up for acute kidney injury on chronic kidney disease. Renal function stable. Nonoliguric. Oral intake fair. Vital signs are stable. General: No acute distress. HEENT: Head exam is unremarkable. LUNGS: No audible rhonchi or wheezes. HEART: Rate and Rhythm are regular. ABDOMEN: Nontender. EXTREMITITES: No edema. Objective - Vital Signs Vital signs: Vital Signs Temp 98.4 F 08/08/23 08:00 Pulse 71 08/08/23 11:23 Resp 16 08/08/23 11:23 BP 155/87 08/08/23 11:23 Pulse Ox 95 08/08/23 11:23 FiO2 Intake & Output 08/07/23 08/08/23 08/08/23 18:59 06:59 18:59 Intake Total 358 358 Output Total 1050 725 200 Balance -692 -725 158 Intake: Oral 358 358 Output: Urine 1050 725 200 Other: Voiding Method Urinal Urinal Urinal # Voids 1 - Labs CBC & Chem 7: 08/07/23 09:00 08/08/23 08:01 Labs: Abnormal Lab Results - Last 24 Hours (Table) 08/07/23 08/07/23 08/07/23 Range/Units 11:47 16:08 19:53 BUN (9-20) mg/dL Creatinine (0.66-1.25) mg/dL Glucose (74-99) mg/dL POC Glucose (mg/dL) 213 H 299 H 351 H (70-110) mg/dL Calcium (8.4-10.2) mg/dL 08/08/23 08/08/23 Range/Units 06:04 08:01 BUN 42 H (9-20) mg/dL Creatinine 1.94 H (0.66-1.25) mg/dL Glucose 329 H (74-99) mg/dL POC Glucose (mg/dL) 337 H (70-110) mg/dL Calcium 7.3 L (8.4-10.2) mg/dL Microbiology - Last 24 Hours (Table) 08/04/23 13:15 Blood Culture - Preliminary Blood 08/04/23 13:30 Blood Culture - Preliminary Blood Assessment and Plan Plan: Assessment: 1. Acute kidney injury secondary to vasomotor nephropathy secondary to infection and diuresis. Creatinine peaked at 2.37 this admission and is stable at 1.94 today. Mild hydronephrosis noted on transplant kidney. Urology consulted. 2. Chronic kidney disease stage IIIa with baseline creatinine 1.3-1.5 secondary to long-term CNI use in solitary kidney. 3. E. coli UTI on antibiotics. Also concern for pneumonia. 4. Hypertension with chronic kidney disease. 5. Chronic diastolic CHF and moderate mitral regurgitation, tricuspid regurgitation and aortic insufficiency. Plan: Maintain gentle IV hydration. Plan to heplock tomorrow. Continue to hold diuretics. Hold CellCept in the setting of acute infection - held starting 08/08/2023. Can resume in the next 3-4 days. Maintain Prograf. Also on hydrocortisone. Follow-up Prograf level. Avoid nephrotoxins. Add amlodipine.
[2023-08-08] MEDS: amLODIPine 5 MG TAB PO SCH (11:41)
--- NOTE | 2023-08-08 15:31 | P.PN ---
Subjective Progress Note Date: 08/07/23 Principal diagnosis: Reason for follow-up with sepsis and UTI Patient is a 82-year-old male with a past medical history significant for diabetes mellitus hypertension hyperlipidemia atrial fibrillation history of prostate cancer and recurrent UTIs patient has been brought into the hospital for evaluation of nausea and vomiting and this patient mention he did have a d ifficulty urination which was also burning of urine patient did have a fever elevated white count concerning for UTI and a question of pneumonia. On today's evaluation that is 08/07/2023, the patient continues to be afebrile patient is breathing comfortably on room air without need for supplemental o xygen the patient denies chest pain did have occasional cough no sputum production patient denies abdominal pain no nausea no vomiting and no diarrhea has been reported Patient white count is 8.5 creatinine is 1.90 urine culture finalized with ESBL E. coli Objective - Vital Signs Vital signs: Vital Signs Temp 98.2 F 08/07/23 08:00 Pulse 80 08/07/23 11:45 Resp 16 08/07/23 11:45 BP 142/79 08/07/23 11:45 Pulse Ox 97 08/07/23 11:45 FiO2 Intake & Output 08/06/23 08/07/23 08/07/23 18:59 06:59 18:59 Intake Total 598 240 Output Total 1000 700 700 Balance -402 -700 -460 Intake: Oral 598 240 Output: Urine 1000 700 700 Other: Voiding Method Urinal Urinal Diaper # Voids 1 - Exam GENERAL DESCRIPTION: An elderly male lying in bed in no distress RESPIRATORY SYSTEM: Unlabored breathing , decreased breath sounds at bases HEART: S1 S2 regular rate and rhythm , ABDOMEN: Soft , no tenderness EXTREMITIES: No edema feet - Labs CBC & Chem 7: 08/07/23 09:00 08/08/23 08:01 Labs: Abnormal Lab Results - Last 24 Hours (Table) 08/06/23 08/06/23 08/06/23 Range/Units 08:11 16:47 20:24 RBC (4.30-5.90) m/uL Hgb (13.0-17.5) gm/dL Hct (39.0-53.0) % BUN (9-20) mg/dL Creatinine (0.66-1.25) mg/dL Glucose (74-99) mg/dL POC Glucose (mg/dL) 180 H 258 H (70-110) mg/dL Hemoglobin A1c 6.3 H (<=6.0) % Calcium (8.4-10.2) mg/dL 08/07/23 08/07/23 08/07/23 Range/Units 06:06 09:00 09:00 RBC 3.78 L (4.30-5.90) m/uL Hgb 10.0 L (13.0-17.5) gm/dL Hct 31.8 L (39.0-53.0) % BUN 43 H (9-20) mg/dL Creatinine 1.90 H (0.66-1.25) mg/dL Glucose 173 H (74-99) mg/dL POC Glucose (mg/dL) 180 H (70-110) mg/dL Hemoglobin A1c (<=6.0) % Calcium 7.2 L (8.4-10.2) mg/dL 08/07/23 Range/Units 11:47 RBC (4.30-5.90) m/uL Hgb (13.0-17.5) gm/dL Hct (39.0-53.0) % BUN (9-20) mg/dL Creatinine (0.66-1.25) mg/dL Glucose (74-99) mg/dL POC Glucose (mg/dL) 213 H (70-110) mg/dL Hemoglobin A1c (<=6.0) % Calcium (8.4-10.2) mg/dL Microbiology - Last 24 Hours (Table) 08/04/23 13:30 Urine Culture - Final Urine,Voided Escherichia coli 08/04/23 13:15 Blood Culture - Preliminary Blood 08/04/23 13:30 Blood Culture - Preliminary Blood Assessment and Plan (1) UTI (urinary tract infection) Current Visit: Yes Status: Acute Code(s): N39.0 - URINARY TRACT INFECTION, SITE NOT SPECIFIED SNOMED Code(s): 29769863 (2) Leukocytosis Current Visit: Yes Status: Acute Code(s): D72.829 - ELEVATED WHITE BLOOD CELL COUNT, UNSPECIFIED SNOMED Code(s): 947006035 (3) Infection due to ESBL-producing Escherichia coli Current Visit: Yes Status: Acute Code(s): A49.8 - OTHER BACTERIAL INFECTIONS OF UNSPECIFIED SITE; Z16.12 - EXTENDED SPECTRUM BETA LACTAMASE (ESBL) RESISTANCE SNOMED Code(s): 866203949 Plan: 1patient is in the hospital with sepsis in this patient who did have a fever elevated white count source is likely urinary tract infection as the patient did have urinary symptoms of difficulty urination and burning did have a positive UA with recent admission to the hospital will need to cover for the resistant gram- negative pathogen, patient also have abnormal x-ray showing worsening pneumonia with right lower lobe this patient was recently discharged from the hospital and treated for pneumonia possible component of pneumonia less likely 2-patient urine is growing ESBL E. coli, antibiotic has been adjusted to Invanz blood culture has been negative Dictation was produced using [employer] dictation software. please excuse any grammatical, word or spelling errors. Time with Patient: Less than 30
--- NOTE | 2023-08-08 15:32 | P.PN ---
Subjective Progress Note Date: 08/08/23 Principal diagnosis: Reason for follow-up with sepsis and UTI Patient is a 82-year-old male with a past medical history significant for diabetes mellitus hypertension hyperlipidemia atrial fibrillation history of prostate cancer and recurrent UTIs patient has been brought into the hospital for evaluation of nausea and vomiting and this patient mention he did have a d ifficulty urination which was also burning of urine patient did have a fever elevated white count concerning for UTI and a question of pneumonia. On today's evaluation that is 08/08/2023, the patient remains to be afebrile, the patient is breathing comfortably on room air and the patient denies any shortness of breath, the patient denies chest pain or any cough , patient denies any nausea/vomiting abdominal pain or diarrhea Patient white count is 8.5 as of 08/07/2023 creatinine is 1.94 urine culture finalized with ESBL E. coli, ultrasound with Mild hydronephrosis transplant kidney diabetes within the bladder Objective - Vital Signs Vital signs: Vital Signs Temp 98.4 F 08/08/23 08:00 Pulse 71 08/08/23 11:23 Resp 16 08/08/23 11:23 BP 155/87 08/08/23 11:23 Pulse Ox 95 08/08/23 11:23 FiO2 Intake & Output 08/07/23 08/08/23 08/08/23 18:59 06:59 18:59 Intake Total 358 358 Output Total 1050 725 200 Balance -692 725 158 Intake: Oral 358 358 Output: Urine 1050 725 200 Other: Voiding Method Urinal Urinal Urinal # Voids 1 - Exam GENERAL DESCRIPTION: An elderly male lying in bed in no distress RESPIRATORY SYSTEM: Unlabored breathing , decreased breath sounds at bases HEART: S1 S2 regular rate and rhythm , ABDOMEN: Soft , no tenderness EXTREMITIES: No edema feet - Labs CBC & Chem 7: 08/07/23 09:00 08/08/23 08:01 Labs: Abnormal Lab Results - Last 24 Hours (Table) 08/07/23 08/07/23 08/08/23 Range/Units 16:08 19:53 06:04 BUN (9-20) mg/dL Creatinine (0.66-1.25) mg/dL Glucose (74-99) mg/dL POC Glucose (mg/dL) 299 H 351 H 337 H (70-110) mg/dL Calcium (8.4-10.2) mg/dL 08/08/23 08/08/23 Range/Units 08:01 11:31 BUN 42 H (9-20) mg/dL Creatinine 1.94 H (0.66-1.25) mg/dL Glucose 329 H (74-99) mg/dL POC Glucose (mg/dL) 353 H (70-110) mg/dL Calcium 7.3 L (8.4-10.2) mg/dL Microbiology - Last 24 Hours (Table) 08/04/23 13:15 Blood Culture - Preliminary Blood 08/04/23 13:30 Blood Culture - Preliminary Blood Assessment and Plan (1) UTI (urinary tract infection) Current Visit: Yes Status: Acute Code(s): N39.0 - URINARY TRACT INFECTION, SITE NOT SPECIFIED SNOMED Code(s): 57025548 (2) Leukocytosis Current Visit: Yes Status: Acute Code(s): D72.829 - ELEVATED WHITE BLOOD CELL COUNT, UNSPECIFIED SNOMED Code(s): 010008536 (3) Sepsis Current Visit: No Status: Acute Code(s): A41.9 - SEPSIS, UNSPECIFIED ORGANISM SNOMED Code(s): 53967499 Plan: 1patient is in the hospital with sepsis in this patient who did have a fever elevated white count source is likely urinary tract infection as the patient did have urinary symptoms of difficulty urination and burning did have a positive UA with recent admission to the hospital will need to cover for the resistant gram- negative pathogen, patient also have abnormal x-ray showing worsening pneumonia with right lower lobe this patient was recently discharged from the hospital and treated for pneumonia possible component of pneumonia less likely 2-patient urine is growing ESBL E. coli, antibiotic has been adjusted to Invanz 3-ultrasound with mild hydronephrosis of the transplanted kidney urology has been consulted, patient will need IV antibiotic midline has been ordered discussed with the case management specialist to arrange for outpatient IV Invanz Dictation was produced using [employer] dictation software. please excuse any grammatical, word or spelling errors. Time with Patient: Less than 30
[2023-08-08 16:37] LABS: Glucose,Whole Blood 279 mg/dL (70-110)
[2023-08-08] MEDS ORDERED: DEXTROSE 50% SYRINGE 50 ML IVP PRN ×2 (17:11)
--- NOTE | 2023-08-08 17:26 | P.PN ---
Subjective Progress Note Date: 08/08/23 Is a 82-year-old gentleman with chronic kidney disease, solitary kidney, decreased donor kidney transplant admitted with sepsis secondary to ESBL E. coli UTI and multiple other medical issues. Preliminary Blood cultures negative. Maintained on ertapenem as per infectious disease. Diuretics remain on hold, maintained on gentle IV fluid hydration, BUN 43, creatinine 1.9. Denies chest pain, palpitations or shortness of breath. Maintaining O2 sats in the mid to high 90s on room air. 08/08/2023 Diuretics remain on hold. Continues on gentle IV fluid hydration,ertapenem for ESBL UTI. Afebrile. Diet intake fair. BUN 42, creatinine 1.94. Maintained on steroid dose cortisone, blood sugars elevated, hypertensive. Maintaining O2 sats in the mid to high 90s on room air. Objective - Vital Signs Vital signs: Vital Signs Temp 97.9 F 08/08/23 15:39 Pulse 76 08/08/23 15:39 Resp 18 08/08/23 15:39 BP 141/87 08/08/23 15:39 Pulse Ox 97 08/08/23 15:39 FiO2 Intake & Output 08/07/23 08/08/23 08/08/23 18:59 06:59 18:59 Intake Total 358 476 Output Total 1050 725 200 Balance -692 -725 276 Intake: Oral 358 476 Output: Urine 1050 725 200 Other: Voiding Method Urinal Urinal Urinal # Voids 1 - Labs CBC & Chem 7: 08/07/23 09:00 08/08/23 08:01 Labs: Abnormal Lab Results - Last 24 Hours (Table) 08/07/23 08/08/23 08/08/23 Range/Units 19:53 06:04 08:01 BUN 42 H (9-20) mg/dL Creatinine 1.94 H (0.66-1.25) mg/dL Glucose 329 H (74-99) mg/dL POC Glucose (mg/dL) 351 H 337 H (70-110) mg/dL Calcium 7.3 L (8.4-10.2) mg/dL 08/08/23 08/08/23 Range/Units 11:31 16:35 BUN (9-20) mg/dL Creatinine (0.66-1.25) mg/dL Glucose (74-99) mg/dL POC Glucose (mg/dL) 353 H 279 H (70-110) mg/dL Calcium (8.4-10.2) mg/dL Microbiology - Last 24 Hours (Table) 08/04/23 13:15 Blood Culture - Preliminary Blood 08/04/23 13:30 Blood Culture - Preliminary Blood Assessment and Plan Assessment: Acute sepsis secondary to ESBL E. coli UTI Acute hypoxic respiratory failure secondary to possible right lower lobe pneumonia Renal transplant on chronic immunosuppression Acute renal failure secondary to diuresis, infection Chronic renal failure stage IIIA, history of renal transplant, baseline creatinine 1.2-1.4. 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 Craig Depression Anxiety Plan: Continue on current medication regime ,monitoring and symptomatic treatment. Steroid-induced hyperglycemia, premeal insulin with parameters added in addition to NovoLog sliding scale. Low-dose Lantus added to med regimen as well. Close monitoring of Accu-Cheks. Norvasc added, close monitoring of blood pressure .IV fluids /diuretics as per nephrology; diuretics currently on hold. Continues on IV antibiotics of Invanz as per ID. Midline catheter and IV antibiotics/Invanz for DC ordered as per ID. Discharge planning in progress for tomorrow, pending final DC recommendations and clearance per nephrology and pulmonary. The impression and plan of care has been dictated as directed. : I performed a history and examination of this patient, discussed the same with the dictator. I agree with the dictator's note ,documented as a scribe. Any additional findings or plans will be noted.
[2023-08-08] MEDS: INSULIN DETEMIR (LEVEMIR) 100 UNIT/ML SYR SQ SCH (17:36)
--- NOTE | 2023-08-08 19:34 | P.GSCN ---
History of Present Illness Consult date: 08/08/23 Reason for Consult: Hydronephrosis Requesting physician: El Man History of present illness: The patient is an 82-year-old white male well known to Dr. Dasilva. He was diagnosed with prostate cancer in 2008 and has been managed with active surveillance. His PSA level in June 2023 was 5.09. He underwent a renal transplant in 2002. When seen by Dr. Dasilva on 06/28/2023 urinalysis was unremarkable. However, he now presents with dysuria and has been found to have an E. coli ESBL UTI. He states that his dysuria has improved significantly. Review of office records suggests that he takes tamsulosin, finasteride, and Myrbetriq. Review of Systems - Genitourinary Reports dysuria, Denies hematuria 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." Hard of hearing, LOW PLATELETS, History of Any Multi-Drug Resistant Organisms: None Reported Past Surgical History: Unable to Obtain, Orthopedic Surgery Additional Past Surgical History / Comment(s): 12/02/21, KYPHOPLASTY AND BX (NEG). Leftkidney transplant 2002, parathyroid surgery, arthroscopy knee surgery, pericardiocentesis, cancer removed from ear, Past Anesthesia/Blood Transfusion Reactions: No Reported Reaction Past Psychological History: Anxiety, Depression Additional Psychological History / Comment(s): Pt resides with spouse. Smoking Status: Never smoker Past Alcohol Use History: None Reported Past Drug Use History: None Reported - Past Family History Father Family Medical History: Deep Vein Thrombosis (DVT) Son(s) Family Medical History: Cancer Additional Family Medical History / Comment(s): Skin cancer. Mother Family Medical History: Cancer Additional Family Medical History / Comment(s): . Medications and Allergies Home Medications Medication Instructions Recorded Confirmed Type Finasteride [Proscar] 5 mg PO DAILY 02/09/17 08/04/23 History Tamsulosin HCl [Flomax] 0.4 mg PO DAILY 02/09/17 08/04/23 History Multivitamins, Thera [Multivitamin 1 tab PO DAILY 12/31/18 08/04/23 History (formulary)] Vit C/E/Zn/Coppr/Lutein/Zeaxan 1 cap PO HS 12/18/19 08/04/23 History [Preservision Areds 2 Softgel] Pantoprazole [Protonix] 40 mg PO DAILY 12/28/19 08/04/23 History Tacrolimus [Prograf] 1 mg PO BID 04/03/20 08/04/23 History mycophenolate mofetiL [Cellcept] 250 mg PO BID 04/03/20 08/04/23 History DULoxetine HCL [Cymbalta] 120 mg PO DAILY 12/01/20 08/04/23 History Levothyroxine Sodium [Synthroid] 75 mcg PO DAILY 12/01/20 08/04/23 History Aspirin 81 mg PO DAILY 07/12/21 08/04/23 History Gabapentin 300 mg PO HS 07/12/21 08/04/23 History QUEtiapine [SEROquel] 100 mg PO HS 07/12/21 08/04/23 History Rosuvastatin Calcium [Crestor] 5 mg PO HS 07/12/21 08/04/23 History Sodium Bicarbonate Tab 650 mg PO BID 07/12/21 08/04/23 History rOPINIRole HCL [Requip] 1 mg PO HS 09/02/21 08/04/23 History Insulin Glargine/Lixisenatide 30 units SQ DAILY 12/01/21 08/04/23 History [Soliqua 100 Unit-33 Mcg/ml Pen] Eltrombopag Olamine [Promacta] 12.5 mg PO DAILY@0700 05/31/23 08/04/23 History Insulin Lispro [humaLOG Kwikpen] See Protocol SQ AC-TID 05/31/23 08/04/23 History Mirabegron [Myrbetriq] 50 mg PO DAILY 05/31/23 08/04/23 History predniSONE 10 mg PO DAILY 05/31/23 08/04/23 History Metoprolol Tartrate [Lopressor] 50 mg PO BID #60 tab 06/06/23 08/04/23 Rx Acetaminophen Tab [Tylenol] 500 mg PO Q6HR PRN tab 06/07/23 08/04/23 Rx Loperamide [Imodium] 2 mg PO QID PRN cap 06/07/23 08/04/23 Rx Magnesium Oxide [Mag-Ox] 400 mg PO DAILY tab 06/07/23 08/04/23 Rx hydrALAZINE HCL [Apresoline] 100 mg PO TID #90 tab 06/07/23 08/04/23 Rx Furosemide [Lasix] 20 mg PO BID@0900,1600 #10 tab 07/31/23 08/04/23 Rx cefUROXime axetiL [Ceftin] 500 mg PO BID 5 Days #10 tab 07/31/23 08/04/23 Rx Allergies Allergy/AdvReac Type Severity Reaction Status Date / Time morphine Allergy Severe Itching Verified 08/04/23 15:43 Surgical - Exam Vital Signs Temp Pulse Resp BP Pulse Ox 100.9 F H 90 18 154/87 96 08/04/23 10:07 08/04/23 10:07 08/04/23 10:07 08/04/23 10:07 08/04/23 10:07 - General well developed, well nourished, no distress - Respiratory normal respiratory effort - Abdomen Abdomen: soft, non tender, no guarding, no rigid, no rebound - Genitourinary normal penis with no external lesions, testicles non-tender - Psychiatric oriented to time, oriented to person, oriented to place, speech is normal, memory intact Results - Labs 08/07/23 09:00 08/08/23 08:01 Abnormal Lab Results - Last 24 Hours (Table) 08/07/23 08/08/23 08/08/23 Range/Units 19:53 06:04 08:01 BUN 42 H (9-20) mg/dL Creatinine 1.94 H (0.66-1.25) mg/dL Glucose 329 H (74-99) mg/dL POC Glucose (mg/dL) 351 H 337 H (70-110) mg/dL Calcium 7.3 L (8.4-10.2) mg/dL 08/08/23 08/08/23 Range/Units 11:31 16:35 BUN (9-20) mg/dL Creatinine (0.66-1.25) mg/dL Glucose (74-99) mg/dL POC Glucose (mg/dL) 353 H 279 H (70-110) mg/dL Calcium (8.4-10.2) mg/dL Microbiology - Last 24 Hours (Table) 08/04/23 13:15 Blood Culture - Preliminary Blood 08/04/23 13:30 Blood Culture - Preliminary Blood Diabetes panel 08/08/23 Range/Units 08:01 Sodium 137 (137-145) mmol/L Potassium 4.4 (3.5-5.1) mmol/L Chloride 106 (98-107) mmol/L Carbon Dioxide 22 (22-30) mmol/L BUN 42 H (9-20) mg/dL Creatinine 1.94 H (0.66-1.25) mg/dL Glucose 329 H (74-99) mg/dL Calcium 7.3 L (8.4-10.2) mg/dL Calcium panel 08/08/23 Range/Units 08:01 Calcium 7.3 L (8.4-10.2) mg/dL Pituitary panel 08/08/23 Range/Units 08:01 Sodium 137 (137-145) mmol/L Potassium 4.4 (3.5-5.1) mmol/L Chloride 106 (98-107) mmol/L Carbon Dioxide 22 (22-30) mmol/L BUN 42 H (9-20) mg/dL Creatinine 1.94 H (0.66-1.25) mg/dL Glucose 329 H (74-99) mg/dL Calcium 7.3 L (8.4-10.2) mg/dL Adrenal panel 08/08/23 Range/Units 08:01 Sodium 137 (137-145) mmol/L Potassium 4.4 (3.5-5.1) mmol/L Chloride 106 (98-107) mmol/L Carbon Dioxide 22 (22-30) mmol/L BUN 42 H (9-20) mg/dL Creatinine 1.94 H (0.66-1.25) mg/dL Glucose 329 H (74-99) mg/dL Calcium 7.3 L (8.4-10.2) mg/dL - Imaging US - kidney/bladder: report reviewed, image reviewed Assessment and Plan (1) Unspecified hydronephrosis Current Visit: Yes Status: Acute Code(s): N13.30 - UNSPECIFIED HYDRONEPHROSIS SNOMED Code(s): 44134296 (2) UTI (urinary tract infection) Current Visit: Yes Status: Acute Code(s): N39.0 - URINARY TRACT INFECTION, SITE NOT SPECIFIED SNOMED Code(s): 33797557 (3) Prostate cancer Current Visit: No Status: Acute Code(s): C61 - MALIGNANT NEOPLASM OF PROSTATE SNOMED Code(s): 404897509 Plan: The patient is receiving ertapenem for treatment of his E. coli ESBL UTI. His renal function has failed to improved to baseline (creatinine=1.4-1.5). Ultrasound shows evidence of mild left hydronephrosis. This has been seen on ultrasound and computed tomography scan dating back to 2019. It is unclear whether or not the degree of hydronephrosis has increased. If the hydronephrosis had worsened this could be due to recurrent infection. It would be my suggestion that he continue to receive tamsulosin and finasteride, along with ertapenem, and continue to monitor the serum creatinine level. If the renal function fails to return to baseline, I would suggest a CT scan for further evaluation. Time with Patient: Greater than 30
[2023-08-08 20:05] LABS: Glucose,Whole Blood 299 mg/dL (70-110)
[2023-08-08] MEDS: VIT A,C & E-LUTEIN-MINERALS 1 EACH TAB PO SCH (20:44)
[2023-08-08] MEDS: ATORVASTATIN 10 MG TAB PO SCH (20:44)
[2023-08-08] MEDS: QUEtiapine 100 MG TAB PO SCH (20:45)
[2023-08-08] MEDS: GABAPENTIN 300 MG CAP PO SCH (20:46)
[2023-08-09] MEDS: SODIUM CHLORIDE 0.9% 1,000 ML IV SCH (05:00)
[2023-08-09 06:07] LABS: Glucose,Whole Blood 219 mg/dL (70-110)
[2023-08-09] MEDS: ELTROMBOPAG OLAMINE PO SCH (06:40)
[2023-08-09] MEDS: PANTOPRAZOLE 40 MG TABLET PO SCH (07:02)
[2023-08-09] MEDS: LEVOTHYROXINE 75 MCG TAB PO SCH (07:02)
[2023-08-09] MEDS: INSULIN ASPART (NovoLOG) 100 UNIT/ML VIAL SQ SCH ×4 (07:03→12:00)
[2023-08-09] MEDS: INSULIN DETEMIR (LEVEMIR) 100 UNIT/ML SYR SQ SCH (07:03)
[2023-08-09] MEDS: Mirabegron [Myrbetriq] 50 MG Tab.Er.24h PO SCH (07:58)
[2023-08-09] MEDS: hydrALAZINE HCL 50 MG TAB PO SCH ×2 (08:48→15:35)
[2023-08-09] MEDS: SODIUM BICARBONATE TAB 650 MG TAB PO SCH (08:48)
[2023-08-09] MEDS: ASPIRIN 81 MG PO SCH (08:48)
[2023-08-09] MEDS: amLODIPine 5 MG TAB PO SCH (08:49)
[2023-08-09] MEDS: MULTIVITAMINS, THERA 1 EACH TAB PO SCH (08:49)
[2023-08-09] MEDS: TAMSULOSIN 0.4 MG CAP.ER.24H PO SCH (08:49)
[2023-08-09] MEDS: FAMOTIDINE 20 MG/2 ML VIAL IV SCH (08:49)
[2023-08-09] MEDS: DULoxetine HCL 60 MG CAPSULE.DR PO SCH (08:49)
[2023-08-09] MEDS: MAGNESIUM OXIDE 400 MG TAB PO SCH (08:49)
[2023-08-09] MEDS: HEPARIN SODIUM,PORCINE 5,000 UNIT/ML 1 ML VIAL SQ SCH (08:49)
[2023-08-09] MEDS: FINASTERIDE 5 MG TAB PO SCH (08:49)
[2023-08-09] MEDS: HYDROCORTISONE SUCCINATE 100 MG/2 ML VIAL IV SCH ×2 (08:49→15:35)
[2023-08-09] MEDS: METOPROLOL TARTRATE 50 MG TAB PO SCH (08:49)
[2023-08-09] MEDS: TACROLIMUS 1 MG CAP PO SCH (08:50)
[2023-08-09 09:13] VITALS: RESP 20
[2023-08-09] MEDS: ERTAPENEM 1 GM in SODIUM CHLORIDE 0.9% 50 ML IVPB SCH (10:17)
--- NOTE | 2023-08-09 11:04 | P.PN ---
Subjective Patient is seen in follow-up for acute kidney injury on chronic kidney disease. Renal function stable as of yesterday. Nonoliguric. Oral intake fair. Vital signs are stable. General: No acute distress. HEENT: Head exam is unremarkable. On nasal cannula. LUNGS: No audible rhonchi or wheezes. HEART: Rate and Rhythm are regular. ABDOMEN: Nontender. EXTREMITITES: No edema. Objective - Vital Signs Vital signs: Vital Signs Temp 97.6 F 08/09/23 08:00 Pulse 75 08/09/23 08:44 Resp 20 08/09/23 08:00 BP 158/80 08/09/23 08:00 Pulse Ox 99 08/09/23 08:00 FiO2 Intake & Output 08/08/23 08/09/23 08/09/23 18:59 06:59 18:59 Intake Total 476 237 Output Total 200 625 Balance 276 -625 237 Intake: Oral 476 237 Output: Urine 200 625 Other: Voiding Method Urinal Urinal Urinal # Voids 1 # Bowel Movements 1 - Labs CBC & Chem 7: 08/07/23 09:00 08/08/23 08:01 Labs: Abnormal Lab Results - Last 24 Hours (Table) 08/08/23 08/08/23 08/08/23 Range/Units 11:31 16:35 20:03 POC Glucose (mg/dL) 353 H 279 H 299 H (70-110) mg/dL 08/09/23 Range/Units 06:06 POC Glucose (mg/dL) 219 H (70-110) mg/dL Assessment and Plan Plan: Assessment: 1. Acute kidney injury secondary to vasomotor nephropathy secondary to infection and diuresis. Creatinine peaked at 2.37 this admission - stable at 194 as of yesterday. Mild hydronephrosis noted on transplant kidney. Urology following. 2. Chronic kidney disease stage IIIa with baseline creatinine 1.3-1.5 secondary to long-term CNI use in solitary kidney. 3. E. coli UTI on antibiotics. Also concern for pneumonia. 4. Hypertension with chronic kidney disease. 5. Chronic diastolic CHF and moderate mitral regurgitation, tricuspid regurgitation and aortic insufficiency. Plan: Hep-Lock IV fluids. Continue to hold diuretics. Hold CellCept in the setting of acute infection - held starting 08/08/2023. Can resume this Monday. Maintain Prograf. Also on hydrocortisone. Transition to oral prednisone upon discharge. Follow-up Prograf level. Avoid nephrotoxins. Amlodipine added 08/08/2023. Plan for subacute rehab upon discharge. Patient advised to monitor his weight closely at home and notify physician if develops edema or gains more than 3 pounds in 1 week duration.
[2023-08-09 11:46] LABS: Glucose,Whole Blood 136 mg/dL (70-110)
--- NOTE | 2023-08-09 11:58 | P.PN ---
Subjective Progress Note Date: 08/09/23 On 08/07/2023, I am seeing the patient for a follow-up. This is a 82-year-old male patient who presented with nausea and emesis and acute hypoxic respiratory failure with a recent episode of pneumonia. The patient was also having some altered mentation attributed to dehydration and sepsis and he was suspected to have UTI with gram-negative bacillus. Noted the patient has kidney transplantation and currently on a combination of Prograf CellCept and prednisone outpatient basis. He suffers from chronic stage III kidney disease, diabetes mellitus with insulin dependence with diabetic neuropathy, hyp ertension, prostate cancer, peripheral vascular disease and hypothyroidism. Note that the patient was complaining of some shortness of breath in the emergency department. His viral screen came back negative. His chest x-ray showed no acute abnormalities, possibility of a right lower lobe pneumonia cannot be completely excluded. The patient was covered with a combination of Zosyn and Zithromax. He is currently on oxygen on room air with a pulse ox of 96%. He is also growing gram-negative bacillus in the urine, blood cultures are negative thus far. Furthermore, the cultures came back positive for E. coli and this is an ESBL producing organism. Based on those results, antibiotics which is recommended. On 08/08/2023, the patient is resting comfortably in bed. He is on room air oxygen. No respiratory distress. He is currently on IV Invanz for an ESBL producing E. coli in his urine. No other complaints otherwise. His blood work was noted. The sodium is at 137, BUN is a 42 with a creatinine of 1.9. Potassium levels at 4.4. On 08/09/2023, the patient has no specific complaints. He remains on room air oxygen. CellCept was held and the patient is still Prograf. The patient is also on IV Invanz regarding his ESBL E. coli urinary tract infection. No new complaints. A midline is consistent and the patient is going to go to [facility] to complete his antibiotic course. No new labs are available from today. Creatinine from yesterday was stable. He is afebrile. He is also hemodynamically stable. The patient remains on room air oxygen. BP is under good control. Objective - Vital Signs Vital signs: Vital Signs Temp 97.6 F 08/09/23 08:00 Pulse 75 08/09/23 08:44 Resp 20 08/09/23 08:00 BP 158/80 08/09/23 08:00 Pulse Ox 99 08/09/23 08:00 FiO2 Intake & Output 08/08/23 08/09/23 08/09/23 18:59 06:59 18:59 Intake Total 476 237 Output Total 200 625 Balance 276 -625 237 Intake: Oral 476 237 Output: Urine 200 625 Other: Voiding Method Urinal Urinal Urinal # Voids 1 # Bowel Movements 1 - Exam No acute distress, oriented 3. Currently on room air. HEENT examination is grossly unremarkable. Mucous membranes are moist. No oral lesions. Neck supple. Full range of motion. No adenopathy thyromegaly or neck vein distention. Cardiovascular examination reveals regular rhythm rate. S1-S2 normal. No S3 or S4. No discernible murmur noted. Lungs reveal mostly clear breath sounds. No wheezes. No rhonchi. No crackles. Abdomen soft bowel sounds are heard. No masses or tenderness. Extremities are intact. No cyanosis clubbing or edema. Skin is without rash or lesion. Neurologic examination is brief but nonfocal. - Labs CBC & Chem 7: 08/07/23 09:00 08/08/23 08:01 Labs: Abnormal Lab Results - Last 24 Hours (Table) 08/08/23 08/08/23 08/08/23 Range/Units 11:31 16:35 20:03 POC Glucose (mg/dL) 353 H 279 H 299 H (70-110) mg/dL 08/09/23 Range/Units 06:06 POC Glucose (mg/dL) 219 H (70-110) mg/dL Assessment and Plan Plan: Assessment E. coli UTI and this is an ESBL producing organism. The patient's is currently on IV Invanz, clinically stable and improving Nausea and emesis, improving Acute hypoxic respiratory failure, improved and the patient is currently on room air oxygen Altered mental status, improving Renal transplantation maintain a combination of Prograf CellCept and prednisone Chronic immunosuppression secondary to above Chronic stage III kidney disease Anemia of chronic disease Insulin-dependent diabetes mellitus Diabetic neuropathy Hypertension Prostate cancer Peripheral vascular disease Hypothyroidism Plan Continue IV Invanz, midline has been instructed and the patient is to continue to his antibiotic course at [facility]. The stress dose hydrocortisone can be discontinued and the patient can go back on prednisone at a time of his discharge. CellCept will be held for a total of 5 days per nephrology's recommendation Patient is currently on room air oxygen. Continue home medications. Continue Prograf and and hold CellCept as discussed Possibilities to ECF today
--- NOTE | 2023-08-09 12:06 | P.PN ---
Subjective Progress Note Date: 08/09/23 Principal diagnosis: Reason for follow-up with sepsis and UTI Patient is a 82-year-old male with a past medical history significant for diabetes mellitus hypertension hyperlipidemia atrial fibrillation history of prostate cancer and recurrent UTIs patient has been brought into the hospital for evaluation of nausea and vomiting and this patient mention he did have a d ifficulty urination which was also burning of urine patient did have a fever elevated white count concerning for UTI and a question of pneumonia. On today's evaluation that is 08/09/2023, the patient continues to be afebrile patient is breathing comfortably on room air, no need for supplemental oxygen, patient denies any chest pain or cough no nausea no vomiting and no diarrhea has been reported Patient white count is 8.5 as of 08/07/2023 creatinine is 1.94 as of 08/08/2023 urine culture finalized with ESBL E. coli, ultrasound with Mild hydronephrosis transplant kidney diabetes within the bladder Objective - Vital Signs Vital signs: Vital Signs Temp 97.6 F 08/09/23 08:00 Pulse 79 08/09/23 11:00 Resp 20 08/09/23 11:00 BP 148/74 08/09/23 11:00 Pulse Ox 93 L 08/09/23 11:00 FiO2 Intake & Output 08/08/23 08/09/23 08/09/23 18:59 06:59 18:59 Intake Total 476 237 Output Total 200 625 Balance 276 -625 237 Intake: Oral 476 237 Output: Urine 200 625 Other: Voiding Method Urinal Urinal Urinal # Voids 1 # Bowel Movements 1 - Exam GENERAL DESCRIPTION: An elderly male lying in bed in no distress RESPIRATORY SYSTEM: Unlabored breathing , decreased breath sounds at bases HEART: S1 S2 regular rate and rhythm , ABDOMEN: Soft , no tenderness EXTREMITIES: No edema feet - Labs CBC & Chem 7: 08/07/23 09:00 08/08/23 08:01 Labs: Abnormal Lab Results - Last 24 Hours (Table) 08/08/23 08/08/23 08/09/23 Range/Units 16:35 20:03 06:06 POC Glucose (mg/dL) 279 H 299 H 219 H (70-110) mg/dL 08/09/23 Range/Units 11:43 POC Glucose (mg/dL) 136 H (70-110) mg/dL Assessment and Plan (1) UTI (urinary tract infection) Current Visit: Yes Status: Acute Code(s): N39.0 - URINARY TRACT INFECTION, SITE NOT SPECIFIED SNOMED Code(s): 67239189 (2) Leukocytosis Current Visit: Yes Status: Acute Code(s): D72.829 - ELEVATED WHITE BLOOD CELL COUNT, UNSPECIFIED SNOMED Code(s): 898893254 (3) Sepsis Current Visit: No Status: Acute Code(s): A41.9 - SEPSIS, UNSPECIFIED ORGANISM SNOMED Code(s): 02415980 Plan: 1patient is in the hospital with sepsis in this patient who did have a fever elevated white count source is likely urinary tract infection as the patient did have urinary symptoms of difficulty urination and burning did have a positive UA with recent admission to the hospital will need to cover for the resistant gram- negative pathogen, patient also have abnormal x-ray showing worsening pneumonia with right lower lobe this patient was recently discharged from the hospital and treated for pneumonia possible component of pneumonia less likely 2-patient urine is growing ESBL E. coli, antibiotic has been adjusted to Invanz 3-ultrasound with mild hydronephrosis of the transplanted kidney urology has been consulted, 4- midline has been placed outpatient IV antibiotic prescription was provided to the case work aide Dictation was produced using [employer] dictation software. please excuse any grammatical, word or spelling errors. Time with Patient: Less than 30
--- NOTE | 2023-08-09 12:56 | P.DS ---
Providers Date of admission: 08/04/23 14:52 Expected date of discharge: 08/09/23 Attending physician: Narinder Rosenberg Consults: 08/04/23 16:07 Consult Physician Urgent Consulting Provider: Steffen Glaser Consult Reason/Comments: Pneumonia Do you want consulting provider notified?: Yes 08/04/23 16:08 Consult Physician Urgent Consulting Provider: Luh Hwang Consult Reason/Comments: Pneumonia Do you want consulting provider notified?: Yes 08/05/23 12:30 Consult Physician Routine Consulting Provider: Noe Forbes Consult Reason/Comments: possible syncope, a fib Do you want consulting provider notified?: Yes 08/06/23 19:52 Consult Physician Urgent Consulting Provider: Carolina Wolfe Consult Reason/Comments: alejandro Do you want consulting provider notified?: Yes 08/07/23 12:52 Consult Physician Routine Consulting Provider: Sandro Chavira Consult Reason/Comments: hydro Do you want consulting provider notified?: Yes Primary care physician: Narinder Rosenberg [facility] Course: Final Diagnoses: Acute sepsis secondary to ESBL E. coli UTI Acute hypoxic respiratory failure, recent pneumonia Renal transplant on chronic immunosuppression Acute renal failure secondary to diuresis, infection Chronic renal failure stage IIIA, history of renal transplant, baseline creatinine 1.2-1.4. 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 Rafa Webb [facility] course: This Is a 82-year-old gentleman with chronic kidney disease, solitary kidney, decreased donor kidney transplant admitted with sepsis secondary to ESBL E. coli UTI and multiple other medical issues. Preliminary Blood cultures negative. Maintained on ertapenem as per infectious disease. Diuretics remain on hold, maintained on gentle IV fluid hydration, BUN 43, creatinine 1.9. Denies chest pain, palpitations or shortness of breath. Maintaining O2 sats in the mid to high 90s on room air. 08/08/2023 Diuretics remain on hold. Continues on gentle IV fluid hydration,ertapenem for ESBL UTI. Afebrile. Diet intake fair. BUN 42, creatinine 1.94. Maintained on steroid dose cortisone, blood sugars elevated, hypertensive. Maintaining O2 sats in the mid to high 90s on room air. Midline placed, prescription for outpatient IV Invanz as per ID,being arranged bycase management. Patient will be discharged to subacute rehab or home in a stable condition with guarded prognosis, pending authorization. The impression and plan of care has been dictated as directed. : I performed a history and examination of this patient, discussed the same with the dictator. I agree with the dictator's note ,documented as a scribe. Any additional findings or plans will be noted. Patient Condition at Discharge: Stable Plan - Discharge Summary Discharge Rx Participant: No New Discharge Prescriptions: New amLODIPine [Norvasc] 5 mg PO DAILY tab Acetaminophen Tab [Tylenol] 650 mg PO Q6HR PRN tab PRN Reason: Mild Pain Or Fever > 100.5 INSULIN LISPRO (HumaLOG) [humaLOG] 0 unit SQ ACHS #10 ml Continue Finasteride [Proscar] 5 mg PO DAILY Tamsulosin HCl [Flomax] 0.4 mg PO DAILY Multivitamins, Thera [Multivitamin (formulary)] 1 tab PO DAILY Vit C/E/Zn/Coppr/Lutein/Zeaxan [Preservision Areds 2 Softgel] 1 cap PO HS Pantoprazole [Protonix] 40 mg PO DAILY Tacrolimus [Prograf] 1 mg PO BID Sodium Bicarbonate Tab 650 mg PO BID QUEtiapine [SEROquel] 100 mg PO HS rOPINIRole HCL [Requip] 1 mg PO HS Mirabegron [Myrbetriq] 50 mg PO DAILY Metoprolol Tartrate [Lopressor] 50 mg PO BID #60 tab Magnesium Oxide [Mag-Ox] 400 mg PO DAILY tab hydrALAZINE HCL [Apresoline] 100 mg PO TID #90 tab Gabapentin 300 mg PO HS #3 cap Loperamide [Imodium] 2 mg PO QID PRN #24 cap PRN Reason: Diarrhea Levothyroxine Sodium [Synthroid] 75 mcg PO DAILY DULoxetine HCL [Cymbalta] 120 mg PO DAILY Aspirin 81 mg PO DAILY Rosuvastatin Calcium [Crestor] 5 mg PO HS Insulin Glargine/Lixisenatide [Soliqua 100 Unit-33 Mcg/ml Pen] 30 units SQ DAILY predniSONE 10 mg PO DAILY Eltrombopag Olamine [Promacta] 12.5 mg PO DAILY@0700 Acetaminophen Tab [Tylenol] 500 mg PO Q6HR PRN tab PRN Reason: Fever And/ Or Pain mycophenolate mofetiL [Cellcept] 250 mg PO BID #0 Discontinued Insulin Lispro [humaLOG Kwikpen] See Protocol SQ AC-TID Furosemide [Lasix] 20 mg PO BID@0900,1600 #10 tab cefUROXime axetiL [Ceftin] 500 mg PO BID 5 Days #10 tab Discharge Medication List Finasteride [Proscar] 5 mg PO DAILY 02/09/17 [History] Tamsulosin HCl [Flomax] 0.4 mg PO DAILY 02/09/17 [History] Multivitamins, Thera [Multivitamin (formulary)] 1 tab PO DAILY 12/31/18 [Hist ory] Vit C/E/Zn/Coppr/Lutein/Zeaxan [Preservision Areds 2 Softgel] 1 cap PO HS 12/18/19 [History] Pantoprazole [Protonix] 40 mg PO DAILY 12/28/19 [History] Tacrolimus [Prograf] 1 mg PO BID 04/03/20 [History] DULoxetine HCL [Cymbalta] 120 mg PO DAILY 12/01/20 [History] Levothyroxine Sodium [Synthroid] 75 mcg PO DAILY 12/01/20 [History] Aspirin 81 mg PO DAILY 07/12/21 [History] QUEtiapine [SEROquel] 100 mg PO HS 07/12/21 [History] Rosuvastatin Calcium [Crestor] 5 mg PO HS 07/12/21 [History] Sodium Bicarbonate Tab 650 mg PO BID 07/12/21 [History] rOPINIRole HCL [Requip] 1 mg PO HS 09/02/21 [History] Insulin Glargine/Lixisenatide [Soliqua 100 Unit-33 Mcg/ml Pen] 30 units SQ DAILY 12/01/21 [History] Eltrombopag Olamine [Promacta] 12.5 mg PO DAILY@0700 05/31/23 [History] Mirabegron [Myrbetriq] 50 mg PO DAILY 05/31/23 [History] predniSONE 10 mg PO DAILY 05/31/23 [History] Metoprolol Tartrate [Lopressor] 50 mg PO BID #60 tab 06/06/23 [Rx] Acetaminophen Tab [Tylenol] 500 mg PO Q6HR PRN tab 06/07/23 [Rx] Magnesium Oxide [Mag-Ox] 400 mg PO DAILY tab 06/07/23 [Rx] hydrALAZINE HCL [Apresoline] 100 mg PO TID #90 tab 06/07/23 [Rx] Acetaminophen Tab [Tylenol] 650 mg PO Q6HR PRN tab 08/09/23 [Rx] Gabapentin 300 mg PO HS #3 cap 08/09/23 [Rx] INSULIN LISPRO (HumaLOG) [humaLOG] 0 unit SQ ACHS #10 ml 08/09/23 [Rx] Loperamide [Imodium] 2 mg PO QID PRN #24 cap 08/09/23 [Rx] amLODIPine [Norvasc] 5 mg PO DAILY tab 08/09/23 [Rx] mycophenolate mofetiL [Cellcept] 250 mg PO BID #0 08/09/23 [Rx] Follow up Appointment(s)/Referral(s): Narinder Rosenberg DO [Primary Care Provider] - 1 Week (After DC from subacute rehab) Activity/Diet/Wound Care/Special Instructions: IV Invanz OP as per ID.
[2023-08-09 16:45] LABS: Glucose,Whole Blood 268 mg/dL (70-110)
[2023-08-09 17:37] VITALS: BP 145/76; PULSE 81; TEMP 97.8
--- NOTE | 2023-08-09 18:38 | P.PN ---
Subjective Progress Note Date: 08/09/23 Principal diagnosis: UTI, hydronephrosis The patient states that his dysuria has essentially resolved. He denies hematuria and flank pain. Objective - Vital Signs Vital signs: Vital Signs Temp 97.6 F 08/09/23 08:00 Pulse 79 08/09/23 11:00 Resp 20 08/09/23 11:00 BP 148/74 08/09/23 11:00 Pulse Ox 93 L 08/09/23 11:00 FiO2 Intake & Output 08/08/23 08/09/23 08/09/23 18:59 06:59 18:59 Intake Total 476 237 Output Total 200 625 Balance 276 -625 237 Intake: Oral 476 237 Output: Urine 200 625 Other: Voiding Method Urinal Urinal Urinal # Voids 1 # Bowel Movements 1 - Constitutional General appearance: Present: average body habitus, cooperative, no acute distress - Psychiatric Psychiatric: Present: A&O x's 3 - Labs CBC & Chem 7: 08/07/23 09:00 08/08/23 08:01 Labs: Abnormal Lab Results - Last 24 Hours (Table) 08/08/23 08/08/23 08/09/23 Range/Units 16:35 20:03 06:06 POC Glucose (mg/dL) 279 H 299 H 219 H (70-110) mg/dL 08/09/23 Range/Units 11:43 POC Glucose (mg/dL) 136 H (70-110) mg/dL Assessment and Plan Assessment: The patient is receiving ertapenem for treatment of his E. coli ESBL UTI. His renal function has failed to improved to baseline (creatinine=1.4-1.5). Ultrasound shows evidence of mild left hydronephrosis. This has been seen on ultrasound and CT scan dating back to 2019. It is unclear whether or not the degree of hydronephrosis has increased. If the hydronephrosis had worsened this could be due to recurrent infection. (1) Unspecified hydronephrosis Status: Acute Code(s): N13.30 - UNSPECIFIED HYDRONEPHROSIS SNOMED Code(s): 08466382 (2) UTI (urinary tract infection) Status: Acute Code(s): N39.0 - URINARY TRACT INFECTION, SITE NOT SPECIFIED SNOMED Code(s): 47273574 (3) Prostate cancer Status: Acute Code(s): C61 - MALIGNANT NEOPLASM OF PROSTATE SNOMED Code(s): 366192647 Plan: The patient is being discharged on ertapenem for treatment of his E. coli ESBL UTI. His renal function has failed to improved to baseline (creatinine=1.4- 1.5). He will follow up with Dr. Dasilva as planned. He should be seen sooner by Dr. Dasilva if the creatinine level fails to return to baseline.
== END 2023-08-09 16:58 | DRG 871 ==
LOC: EC 09:59 → 3SCARD 14:51 → OBSVTOIN 14:52 → 3SCARD 18:03
PROVIDERS: ADMIT Family Medicine; ATTEND Family Medicine
PROC: 05HF33Z Insertion of Infusion Device into Left Cephalic Vein, Percutaneous Approach (ICD-10-PCS; principal; 2023-08-08 16:15)
DX: A41.51 Sepsis due to Escherichia coli [E. coli] (principal); G93.41 Metabolic encephalopathy; J96.01 Acute respiratory failure with hypoxia; N17.0 Acute kidney failure with tubular necrosis; I13.0 Hypertensive heart and chronic kidney disease with heart failure and stage 1 through stage 4 chronic kidney disease, or unspecified chronic kidney disease; I50.32 Chronic diastolic (congestive) heart failure; Z94.0 Kidney transplant status; D69.3 Immune thrombocytopenic purpura; D84.821 Immunodeficiency due to drugs; N13.6 Pyonephrosis; Z16.12 Extended spectrum beta lactamase (ESBL) resistance; Q60.0 Renal agenesis, unilateral; C61 Malignant neoplasm of prostate; E11.22 Type 2 diabetes mellitus with diabetic chronic kidney disease; E11.65 Type 2 diabetes mellitus with hyperglycemia; D63.1 Anemia in chronic kidney disease; Z79.4 Long term (current) use of insulin; E03.9 Hypothyroidism, unspecified; E11.40 Type 2 diabetes mellitus with diabetic neuropathy, unspecified; F32.A Depression, unspecified; Z11.52 Encounter for screening for COVID-19; E11.51 Type 2 diabetes mellitus with diabetic peripheral angiopathy without gangrene; E78.5 Hyperlipidemia, unspecified; E86.0 Dehydration; F41.9 Anxiety disorder, unspecified; G89.29 Other chronic pain; I08.3 Combined rheumatic disorders of mitral, aortic and tricuspid valves; I25.10 Atherosclerotic heart disease of native coronary artery without angina pectoris; I48.0 Paroxysmal atrial fibrillation; H91.90 Unspecified hearing loss, unspecified ear; T50.2X5A Adverse effect of carbonic-anhydrase inhibitors, benzothiadiazides and other diuretics, initial encounter; T38.0X5A Adverse effect of glucocorticoids and synthetic analogues, initial encounter; K21.9 Gastro-esophageal reflux disease without esophagitis; R29.6 Repeated falls; R79.89 Other specified abnormal findings of blood chemistry; N18.31 Chronic kidney disease, stage 3a; Z79.624 Long term (current) use of inhibitors of nucleotide synthesis; Z79.82 Long term (current) use of aspirin; Z79.890 Hormone replacement therapy; Z79.899 Other long term (current) drug therapy; Z87.01 Personal history of pneumonia (recurrent); Z87.440 Personal history of urinary (tract) infections; Z95.1 Presence of aortocoronary bypass graft; Z28.311 Partially vaccinated for COVID-19; Z28.21 Immunization not carried out because of patient refusal; Z88.5 Allergy status to narcotic agent; Z85.828 Personal history of other malignant neoplasm of skin
CPT/HCPCS: 36410; 36415; 71046; 76770; 76937; 80048; 80053; 80197; 81001; 82150; 83036; 83690; 83735; 84145; 84484; 85025; 85027; 87040; 87077; 87086; 87186; 87449; 87636; 93005; 94760; 96366; 96367; 96375; 99285

== ENCOUNTER 2023-11-28 14:10 | Emergency (ER) | payer MEDICARE ==
--- NOTE | 2023-11-28 15:37 | ED ---
Recheck HPI - General Chief Complaint: Recheck/Abnormal Lab/Rx Stated Complaint: Hypertension Time Seen by Provider: 11/28/23 15:36 Source: patient, family, RN notes reviewed Mode of arrival: wheelchair Limitations: no limitations - History of Present Illness Initial Comments: 83-year-old male presented to the ER with a chief complaint of elevated blood pressure. reports patient was at tube room supervisor today for bilateral eye injections. She states when they took his blood pressure it was found to be 198/99. They sent patient here for evaluation due to elevated blood pressure. Patient is currently taking amlodipine, hydralazine and metoprolol. Patient did take medications around 11 AM. Patient denies any current headache, dizziness, visual disturbances, chest pain, shortness of breath or peripheral edema. - Related Data Home Medications Medication Instructions Recorded Confirmed Finasteride [Proscar] 5 mg PO DAILY 02/09/17 08/04/23 Tamsulosin HCl [Flomax] 0.4 mg PO DAILY 02/09/17 08/04/23 Multivitamins, Thera [Multivitamin 1 tab PO DAILY 12/31/18 08/04/23 (formulary)] Vit C/E/Zn/Coppr/Lutein/Zeaxan 1 cap PO HS 12/18/19 08/04/23 [Preservision Areds 2 Softgel] Pantoprazole [Protonix] 40 mg PO DAILY 12/28/19 08/04/23 Tacrolimus [Prograf] 1 mg PO BID 04/03/20 08/04/23 DULoxetine HCL [Cymbalta] 120 mg PO DAILY 12/01/20 08/04/23 Levothyroxine Sodium [Synthroid] 75 mcg PO DAILY 12/01/20 08/04/23 Aspirin 81 mg PO DAILY 07/12/21 08/04/23 QUEtiapine [SEROquel] 100 mg PO HS 07/12/21 08/04/23 Rosuvastatin Calcium [Crestor] 5 mg PO HS 07/12/21 08/04/23 Sodium Bicarbonate Tab 650 mg PO BID 07/12/21 08/04/23 rOPINIRole HCL [Requip] 1 mg PO HS 09/02/21 08/04/23 Eltrombopag Olamine [Promacta] 12.5 mg PO DAILY@0700 05/31/23 08/04/23 Mirabegron [Myrbetriq] 50 mg PO DAILY 05/31/23 08/04/23 predniSONE 10 mg PO DAILY 05/31/23 08/04/23 Previous Rx's Medication Instructions Recorded Metoprolol Tartrate [Lopressor] 50 mg PO BID #60 tab 06/06/23 Magnesium Oxide [Mag-Ox] 400 mg PO DAILY tab 06/07/23 hydrALAZINE HCL [Apresoline] 100 mg PO TID #90 tab 06/07/23 Acetaminophen Tab [Tylenol] 650 mg PO Q6HR PRN tab 08/09/23 Ertapenem [INVanz] 1 gm IVPB DAILY 10 Days #10 each 08/09/23 Gabapentin 300 mg PO HS #3 cap 08/09/23 INSULIN ASPART (NovoLOG) [NovoLOG 9 unit SQ AC-TID each 08/09/23 (formulary)] INSULIN LISPRO (HumaLOG) [humaLOG] 0 unit SQ ACHS #10 ml 08/09/23 Insulin Detemir (Levemir) [Levemir] 15 unit SQ DAILY@0700 #1 each 08/09/23 Loperamide [Imodium] 2 mg PO QID PRN #24 cap 08/09/23 amLODIPine [Norvasc] 5 mg PO DAILY tab 08/09/23 mycophenolate mofetiL [Cellcept] 250 mg PO BID #0 08/09/23 Allergies Allergy/AdvReac Type Severity Reaction Status Date / Time morphine Allergy Severe Itching Verified 11/28/23 14:14 Review of Systems ROS Statement: Those systems with pertinent positive or pertinent negative responses have been documented in the HPI. ROS Other: All systems not noted in ROS Statement are negative. 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." Hard of hearing, LOW PLATELETS, History of Any Multi-Drug Resistant Organisms: None Reported Past Surgical History: Unable to Obtain, Orthopedic Surgery Additional Past Surgical History / Comment(s): 12/02/21, KYPHOPLASTY AND BX (NEG). Leftkidney transplant 2002, parathyroid surgery, arthroscopy knee surgery, pericardiocentesis, cancer removed from ear, Past Anesthesia/Blood Transfusion Reactions: No Reported Reaction Past Psychological History: Anxiety, Depression Smoking Status: Never smoker Past Alcohol Use History: None Reported Past Drug Use History: None Reported - Past Family History Father Family Medical History: Deep Vein Thrombosis (DVT) Son(s) Family Medical History: Cancer Additional Family Medical History / Comment(s): Skin cancer. Mother Family Medical History: Cancer Additional Family Medical History / Comment(s): . General Exam Limitations: no limitations General appearance: alert, in no apparent distress Head exam: Present: atraumatic, normocephalic, normal inspection Eye exam: Present: normal appearance, PERRL, EOMI. Absent: scleral icterus, conjunctival injection, periorbital swelling Respiratory exam: Present: normal lung sounds bilaterally. Absent: respiratory distress, wheezes, rales, rhonchi, stridor Cardiovascular Exam: Present: regular rate, normal rhythm, normal heart sounds. Absent: systolic murmur, diastolic murmur, rubs, gallop, clicks Neurological exam: Present: alert, oriented X3, CN II-XII intact Skin exam: Present: warm, dry, intact, normal color. Absent: rash Course Vital Signs 11/28/23 11/28/23 11/28/23 14:11 15:09 15:21 Temperature 98.6 F Pulse Rate 57 L 76 Respiratory 18 16 18 Rate Blood Pressure 131/74 129/88 O2 Sat by Pulse 97 97 Oximetry 11/28/23 15:51 Temperature 98.3 F Pulse Rate 71 Respiratory 18 Rate Blood Pressure 130/86 O2 Sat by Pulse 97 Oximetry Medical Decision Making - Medical Decision Making Was pt. sent in by a medical professional or institution (, PA, CLEAN ROOM ASSEMBLER, urgent care, hospital, or penitentiary...) When possible be specific @ -Telephone Ad Taker for evaluation of elevated blood pressure. Did you speak to anyone other than the patient for history (EMS, parent, family, police, friend...)? What history was obtained from this source @ - aiding in HPI and PMHx Did you review nursing and triage notes (agree or disagree)? Why? @ -I reviewed and agree with nursing and triage notes Were old charts reviewed (outside hosp., previous admission, EMS record, old EKG, old radiological studies, urgent care reports/EKG's, penitentiary records)? Report findings @ -No old charts were reviewed Differential Diagnosis (chest pain, altered mental status, abdominal pain women, abdominal pain men, vaginal bleeding, weakness, fever, dyspnea, syncope, headache, dizziness, GI bleed, back pain, seizure, CVA, palpatations, mental health, musculoskeletal)? @ -Hypertension, hypertensive crisis, hypertensive emergency this list is not meant to be all-inclusive EKG interpreted by me (3pts min.). @ -As above X-rays interpreted by me (1pt min.). @ -None done CT interpreted by me (1pt min.). @ -None done U/S interpreted by me (1pt. min.). @ -None done What testing was considered but not performed or refused? (CT, X-rays, U/S, labs)? Why? @ -None What meds were considered but not given or refused? Why? @ -None Did you discuss the management of the patient with other professionals (professionals i.e. , PA, CLEAN ROOM ASSEMBLER, lab, RT, psych nurse, psychologist social, imagery analyst, teacher, child support case officer, pillowcase cleaner)? Give summary @ -No Was smoking cessation discussed for >3mins.? @ -No Was critical care preformed (if so, how long)? @ -No Were there social determinants of health that impacted care today? How? (Homelessness, low income, unemployed, alcoholism, drug addiction, transportation, low edu. Level, literacy, decrease access to med. care, usp, rehab)? @ -No Was there de-escalation of care discussed even if they declined (Discuss DNR or withdrawal of care, Hospice)? DNR status @ -No What co-morbidities impacted this encounter? (DM, HTN, Smoking, COPD, CAD, Cancer, CVA, ARF, Chemo, Hep., AIDS, mental health diagnosis, sleep apnea, morbid obesity)? @ -Atrial fibrillation, hypertension Was patient admitted / discharged? Hospital course, mention meds given and route , prescriptions, significant lab abnormalities, going to OR and other pertinent info. @ -Discharged. 83 year old male presented to the ER with chief complaint of elevated blood pressure. Patient sent here by tube room supervisor as he was scheduled for procedure today was found to have elevated blood pressure. History and physical exam completed. Vitals stable. Blood pressure upon arrival significant for 131/74. Repeat blood pressure 129/88. EKG showing atrial fibrillation with no acute ST segment or T wave abnormalities. Ventricular rate 73. Patient had no acute complaints. Patient without signs of acute distress and non toxic appearing. Results discussed with patient and , all questions answered. I advised patient to continue taking prescribed medications and to follow-up with PCP. Return parameters discussed. Patient discharged in stable condition. Patient and verbally expressed understanding and agreement with care plan. Case discussed with ED attending, Dr. Merino. Undiagnosed new problem with uncertain prognosis? @ -No Drug Therapy requiring intensive monitoring for toxicity (Heparin, Nitro, Insulin, Cardizem)? @ -No Were any procedures done? @ -No Diagnosis/symptom? @ - Blood pressure check Acute, or Chronic, or Acute on Chronic? @ -Chronic Uncomplicated (without systemic symptoms) or Complicated (systemic symptoms)? @ -Uncomplicated Side effects of treatment? @ -No Exacerbation, Progression, or Severe Exacerbation? @ -No Poses a threat to life or bodily function? How? (Chest pain, [place], [place], pneumonia, PE, COPD, DKA, ARF, appy, cholecystitis, CVA, Diverticulitis, Homicidal, Suicidal, threat to staff... and all critical care pts) @ -No - EKG Data -: EKG Interpreted by Me EKG Comments: EKG taken at 15: 22 showing atrial fibrillation no acute ST segment or T wave abnormalities. Q waves in anterior leads. Ventricular rate 73, QRS duration 89, QT/QTc 431/457. Disposition Clinical Impression: Blood pressure check Disposition: HOME SELF-CARE Condition: Stable Instructions (If sedation given, give patient instructions): Hypertension (ED), How to Take a Blood Pressure in Children (ED) Additional Instructions: Continue taking medications as prescribed. Follow-up with PCP. Return to the ER for any new or worsening concerns. Is patient prescribed a controlled substance at d/c from ED?: No Referrals: Narinder Rosenberg DO [Primary Care Provider] - 1-2 days Time of Disposition: 15:37
[2023-11-28 16:01] VITALS: RESP 18
[2023-11-28 16:02] VITALS: BP 130/86; PULSE 71; TEMP 98.3
== END 2023-11-28 15:55 | disposition home or self-care (01) ==
LOC: EC 14:10
DX: I10 Essential (primary) hypertension (principal); I48.91 Unspecified atrial fibrillation; Z88.5 Allergy status to narcotic agent
CPT/HCPCS: 99283

== ENCOUNTER 2024-03-20 11:07 | Day surgery (SDC) | payer MEDICARE ==
[~2024-03-20 11:07] MED LIST changes: -DEXAMETHASONE SOD PHOSPHATE 4 MG/ML 1 ML VIAL IV ONE; -LACTATED RINGERS 1,000 ML IV SCH; +LIDOCAINE 1% (10MG/ML) FOR IV START INTRADERMA PRN; -ONDANSETRON 4 MG/2 ML VIAL IVP ONE
[2024-03-20] MEDS: IV FLUID CONTINUATION 1,000 ML IV ONE (12:05)
[2024-03-20] MEDS: LIDOCAINE 1%-EPI 1:100,000 20 ML VIAL SQ ONE ×3 (12:07→12:38)
[2024-03-20] MEDS: DEXAMETHASONE SOD PHOSPHATE 4 MG/ML 1 ML VIAL IVP STA (12:16)
[2024-03-20] MEDS: LACTATED RINGERS 1,000 ML IV SCH (12:16)
[2024-03-20] MEDS: ONDANSETRON 4 MG/2 ML VIAL IVP STA (12:16)
[2024-03-20] MEDS: FAMOTIDINE 20 MG/2 ML VIAL IV PRN (12:16)
[2024-03-20] MEDS ORDERED: DEXAMETHASONE SOD PHOSPHATE 4 MG/ML 1 ML VIAL IM STA (12:17)
[2024-03-20] MEDS: DEXTROSE 50% SYRINGE 50 ML IVP STA (12:18)
[2024-03-20 12:20] LABS: Glucose,Whole Blood 51 mg/dL (70-110)
[2024-03-20] MEDS ORDERED: MIDAZOLAM 2 MG/2 ML VIAL ONE (12:24)
[2024-03-20] MEDS ORDERED: fentaNYL (PF) 50 MCG/ML 2 ML AMP ONE (12:24)
[2024-03-20] MEDS ORDERED: PROPOFOL 10 MG/ML 20 ML VIAL IV ONE (12:24)
[2024-03-20 12:43] VITALS: TEMP 97.5
[2024-03-20] MEDS: BACITRACIN ZINC 500 UNIT/GM OINT 28.4 GM TUBE TOPICAL ONE (13:04)
[2024-03-20 13:27] LABS: Glucose,Whole Blood 71 mg/dL (70-110)
--- NOTE | 2024-03-20 13:38 | P.OP ---
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 He was sent [facility]. Shave the. He had this further excised in the office with melanoma in situ at pathology but still a peripheral positive margin. Operative Findings: well-healed left ear lobe no gross lesions noted-specimen was sent to pathologist for frozen section but the pathologist felt that frozen section was not particularly indicated for a melanoma in situ and permanent section would be preferred in fact he felt that it was contraindicated to do frozen section and therefore this was deferred. Description of Procedure: patient brought in the operative suite and placed in supine position. Patient underwent induction of IV sedation after appropriate monitors were placed by the salvage inspector wood parts. The patient was then prepped and draped in usual aseptic fashion. Percent lidocaine with 1-100,000 epinephrine was infused subcutaneously in field block fashion at the surgical site left ear lobe. This was left to work for 7 minutes vasoconstrictive effect. The previous incisional scar as well as add itional at least 7-8 mm margins in all directions were taken and taken across the entire earlobe. Hemostasis was gained with electrocautery. The discussion with the pathologist in sutured as above and therefore frozen section was deferred. The shape and size of the wound this required complex closure with rotation of tissue into the adjacent area from the left preauricular area and superior auricle in order to close. The superficial subcutaneous layers were closed with inverted interrupted 5-0 Vicryl suture skin closed with running locking and simple interrupted 5-0 Prolene suture. Bacitracin ointment and sterile dressing was placed. The patient was allowed to emerge from anesthesia having tolerated procedure well and was transferred to postop recovery area in satisfactory condition
[2024-03-20 13:54] VITALS: BP 121/72; PULSE 58; RESP 17
[2024-03-20 14:02] LABS: Glucose,Whole Blood 104 mg/dL (70-110)
== END 2024-03-20 14:18 | disposition home or self-care (01) ==
LOC: OR 11:07
PROVIDERS: ATTEND Otolaryngology
DX: D49.2 Neoplasm of unspecified behavior of bone, soft tissue, and skin
CPT/HCPCS: 88305; 88341; 88342

== ENCOUNTER → 2024-07-25 | Outpatient (CLI) | payer MEDICARE | END | disposition home or self-care (01) | LOC: LABWHC1 13:18 | PROVIDERS: ATTEND Urology | DX: C61 Malignant neoplasm of prostate (principal) | CPT/HCPCS: 36415; 84153 ==

== ENCOUNTER 2024-10-22 08:23 | Inpatient (IN) | payer MEDICARE ==
--- NOTE | 2024-10-22 08:59 | ED ---
General Adult HPI - General Chief complaint: Fall Stated complaint: NVD Time Seen by Provider: 10/22/24 08:24 Source: patient, EMS, RN notes reviewed, old records reviewed Mode of arrival: EMS Limitations: no limitations - History of Present Illness Initial comments: 84-year-old male presenting with generalized weakness, fall. Patient denies injury from the fall no head or neck trauma no loss consciousness. Patient states he has felt weak and has had urinary frequency and dysuria. He is also had several episodes of vomiting. Upon arrival patient is found to be febrile at 104.7. He denies productive cough but states he is also had a mild cough. No pain complaints. - Related Data Home Medications Medication Instructions Recorded Confirmed Finasteride [Proscar] 5 mg PO DAILY 02/09/17 03/18/24 Tamsulosin HCl [Flomax] 0.4 mg PO DAILY 02/09/17 03/20/24 Multivitamins, Thera [Multivitamin 1 tab PO DAILY 12/31/18 03/18/24 (formulary)] Vit C/E/Zn/Coppr/Lutein/Zeaxan 1 cap PO HS 12/18/19 03/18/24 [Preservision Areds 2 Softgel] Pantoprazole [Protonix] 40 mg PO DAILY 12/28/19 03/18/24 Tacrolimus [Prograf] 1 mg PO BID 04/03/20 03/18/24 DULoxetine HCL [Cymbalta] 120 mg PO DAILY 12/01/20 03/18/24 Levothyroxine Sodium [Synthroid] 75 mcg PO DAILY 12/01/20 03/18/24 Aspirin 81 mg PO DAILY 07/12/21 03/18/24 QUEtiapine [SEROquel] 100 mg PO HS 07/12/21 03/18/24 Rosuvastatin Calcium [Crestor] 5 mg PO HS 07/12/21 03/18/24 Sodium Bicarbonate Tab 650 mg PO DAILY 07/12/21 03/18/24 rOPINIRole HCL [Requip] 0.5 mg PO HS 09/02/21 03/18/24 Eltrombopag Olamine [Promacta] 12.5 mg PO DAILY@0700 05/31/23 03/18/24 Mirabegron [Myrbetriq] 50 mg PO DAILY 05/31/23 03/18/24 predniSONE 10 mg PO DAILY 05/31/23 03/18/24 Ferrous Sulfate [Iron] 325 mg PO DAILY 03/18/24 03/18/24 Insulin Glargine/Lixisenatide 33 units SQ DAILY 03/18/24 03/18/24 [Soliqua 100 Unit-33 Mcg/ml Pen] amLODIPine [Norvasc] 2.5 mg PO DAILY 03/18/24 03/18/24 Previous Rx's Medication Instructions Recorded Metoprolol Tartrate [Lopressor] 50 mg PO BID #60 tab 06/06/23 Magnesium Oxide [Mag-Ox] 400 mg PO DAILY tab 06/07/23 hydrALAZINE HCL [Apresoline] 100 mg PO TID #90 tab 06/07/23 Acetaminophen Tab [Tylenol] 650 mg PO Q6HR PRN tab 08/09/23 Gabapentin 300 mg PO HS #3 cap 08/09/23 INSULIN LISPRO (HumaLOG) [humaLOG] 0 unit SQ ACHS #10 ml 08/09/23 Loperamide [Imodium] 2 mg PO QID PRN #24 cap 08/09/23 mycophenolate mofetiL [Cellcept] 250 mg PO BID #0 08/09/23 Allergies Allergy/AdvReac Type Severity Reaction Status Date / Time morphine Allergy Severe Itching Verified 03/20/24 11:51 Review of Systems ROS Statement: Those systems with pertinent positive or pertinent negative responses have been documented in the HPI. ROS Other: All systems not noted in ROS Statement are negative. Past Medical History Past Medical History: Atrial Fibrillation, Blood Disorder, Cancer, Diabetes Mellitus, Hearing Disorder / Deafness, Hyperlipidemia, Hypertension, Osteoarthritis (OA), Pneumonia, Prostate Disorder, Renal Disease, Thyroid Disorder Additional Past Medical History / Comment(s): polio at 6, back pain, melanoma taken off of left ear & left shoulder, "slow growing cancer of prostate, being watched by Dr Dasilva." Hard of hearing, LOW PLATELETS, Jul 2023 UTI & pneumonia hospitalized at [facility]; "old blood clot in right leg", orthostatic hypotension, frequent falls, uses walker History of Any Multi-Drug Resistant Organisms: ESBL Date of last positivie culture/infection: 10/09/24 MDRO Source:: urine Past Surgical History: Back Surgery, Ear Surgery, Orthopedic Surgery Additional Past Surgical History / Comment(s): KYPHOPLASTY AND BX (NEG) 2021. Left kidney transplant 2002, parathyroid surgery, arthroscopy knee surgery, pericardiocentesis, cancer removed from left ear Past Anesthesia/Blood Transfusion Reactions: No Reported Reaction Past Psychological History: Anxiety, Depression Smoking Status: Never smoker - Past Family History Father Family Medical History: Deep Vein Thrombosis (DVT) Son(s) Family Medical History: Cancer Mother Family Medical History: Cancer Additional Family Medical History / Comment(s): . General Exam Limitations: no limitations General appearance: alert, in no apparent distress Head exam: Present: atraumatic, normocephalic Eye exam: Present: normal appearance, PERRL ENT exam: Present: mucous membranes dry Neck exam: Present: normal inspection. Absent: tenderness, meningismus Respiratory exam: Present: normal lung sounds bilaterally. Absent: respiratory distress, wheezes Cardiovascular Exam: Present: regular rate, normal rhythm GI/Abdominal exam: Present: soft, tenderness (Mild). Absent: distended, guarding Extremities exam: Present: normal inspection, normal capillary refill Neurological exam: Present: alert, oriented X3, CN II-XII intact. Absent: motor sensory deficit Psychiatric exam: Present: normal affect, normal mood Skin exam: Present: warm, dry, intact Course Vital Signs 10/22/24 08:27 Temperature 104.7 F H Pulse Rate 88 Respiratory 18 Rate Blood Pressure 139/74 O2 Sat by Pulse 94 L Oximetry Medical Decision Making - Medical Decision Making Was pt. sent in by a medical professional or institution (Dr. PA, HONING MACHINE OPERATOR SEMIAUTOMATIC, urgent care, hospital, or halfway...) When possible be specific @ -No Did you speak to anyone other than the patient for history (EMS, parent, family, police, friend...)? What history was obtained from this source @ -No Did you review nursing and triage notes (agree or disagree)? Why? @ -I reviewed and agree with nursing and triage notes Were old charts reviewed (outside hosp., previous admission, EMS record, old EKG, old radiological studies, urgent care reports/EKG's, halfway records)? Report findings @ -No old charts were reviewed Differential Fever: Pneumonia, viral URI, endocarditis, myocarditis, pericarditis, otitis, sinusitis, peritonsillar Abscess, retropharyngeal Abscess, epiglottitis, peritonitis, appendicitis, Jennifer cystitis, diverticulitis, hepatitis, colitis, UTI, PID, TOA, pyelonephritis, prostatitis, epididymitis, meningitis, encephalitis, pulmonary embolism, CVA, thyroid storm, pancreatitis, adrenal crisis, cavernous sinus thrombosis, this is not meant to be an all-inclusive list. EKG interpreted by me (3pts min.). @ -EKG: Narrow complex rhythm, tremor artifact, suspect either sinus mechanism or ectopic pacemaker. Ventricular rate of 86, WA interval 124, QRS duration 92, QTc [address] segment elevation. X-rays interpreted by me (1pt min.). @ -Chest x-ray is negative for consolidated pneumonia CT interpreted by me (1pt min.). @ -None done U/S interpreted by me (1pt. min.). @ -None done What testing was considered but not performed or refused? (CT, X-rays, U/S, labs)? Why? @ -None What meds were considered but not given or refused? Why? @ -None Did you discuss the management of the patient with other professionals (professionals i.e. , PA, HONING MACHINE OPERATOR SEMIAUTOMATIC, lab, RT, psych nurse, health and social care teacher, manager animal, teacher, adult parole officer, machine adjuster leader case trim)? Give summary @ -[Dr. Rosenberg will admit, Dr. Hwang has been paged regarding antibiotic use Was smoking cessation discussed for >3mins.? @ -No Was critical care preformed (if so, how long)? @ -Yes, 35 minutes Were there social determinants of health that impacted care today? How? ( Homelessness, low income, unemployed, alcoholism, drug addiction, transportation, low edu. Level, literacy, decrease access to med. care, fpc, rehab)? @ -No Was there de-escalation of care discussed even if they declined (Discuss DNR or withdrawal of care, Hospice)? DNR status @ -No What co-morbidities impacted this encounter? (DM, HTN, Smoking, COPD, CAD, Cancer, CVA, ARF, Chemo, Hep., AIDS, mental health diagnosis, sleep apnea, morbid obesity)? @ -Drug-resistant UTI, prostate cancer, renal transplant Was patient admitted / discharged? Hospital course, mention meds given and route, prescriptions, significant lab abnormalities, going to OR and other pertinent info. @ -84-year-old male presenting with weakness, fever, minor fall, no injury. Patient was recently diagnosed with urinary tract infection and was on nitrofurantoin which she completed several days ago. Patient has high fever upon arrival. Stable blood pressure, normal heart rate. White blood cell count is elevated. He has a lactic acid 3.8. He is given fluid bolus and started on ceftriaxone. Review of recent urine culture does reveal ESBL. Antibiotic selection will be discussed with infectious disease. The patient will be admitted for UTI with sepsis. Undiagnosed new problem with uncertain prognosis? @ -No Drug Therapy requiring intensive monitoring for toxicity (Heparin, Nitro, Insulin, Cardizem)? @ -No Were any procedures done? @ -No Diagnosis/symptom? @ -UTI with sepsis Acute, or Chronic, or Acute on Chronic? @ -Acute Uncomplicated (without systemic symptoms) or Complicated (systemic symptoms)? @ -Default Side effects of treatment? @ -No Exacerbation, Progression, or Severe Exacerbation? @ -No Poses a threat to life or bodily function? How? (Chest pain, USA, GA, pneumonia, PE, COPD, DKA, ARF, appy, cholecystitis, CVA, Diverticulitis, Homicidal, Suicidal, threat to staff... and all critical care pts) @ -Yes, sepsis - Lab Data Result diagrams: 10/22/24 08:52 10/22/24 08:52 Lab Results 10/22/24 10/22/24 10/22/24 Range/Units 08:52 08:52 08:52 WBC 16.3 H (3.8-10.6) k/uL RBC 4.63 (4.30-5.90) m/uL Hgb 13.2 (13.0-17.5) gm/dL Hct 41.7 (39.0-53.0) % MCV 90.2 (80.0-100.0) fL MCH 28.4 (25.0-35.0) pg MCHC 31.5 (31.0-37.0) g/dL RDW 15.1 (11.5-15.5) % MPV 8.4 Hypochromasia Slight Sodium 132 L (137-145) mmol/L Potassium 4.6 (3.5-5.1) mmol/L Chloride 102 (98-107) mmol/L Carbon Dioxide 19 L (22-30) mmol/L Anion Gap 11 mmol/L BUN 35 H (9-20) mg/dL Creatinine 1.89 H (0.66-1.25) mg/dL Est GFR (CKD-EPI)AfAm 37 (>60 ml/min/1.73 sqM) Est GFR (CKD-EPI)NonAf 32 (>60 ml/min/1.73 sqM) Glucose 234 H (74-99) mg/dL Plasma Lactic Acid Jc 3.8 H* (0.7-2.0) mmol/L Calcium 8.4 (8.4-10.2) mg/dL Total Bilirubin 1.6 H (0.2-1.3) mg/dL AST 23 (17-59) U/L ALT 17 (4-49) U/L Alkaline Phosphatase 69 (38-126) U/L Total Protein 5.4 L (6.3-8.2) g/dL Albumin 3.2 L (3.5-5.0) g/dL Urine Color Urine Appearance (Clear) Urine pH (5.0-8.0) Ur Specific [place] (1.001-1.035) Urine Protein (Negative) Urine Glucose (UA) (Negative) Urine Ketones (Negative) Urine Blood (Negative) Urine Nitrite (Negative) Urine Bilirubin (Negative) Urine Urobilinogen (<2.0) mg/dL Ur Leukocyte Esterase (Negative) Urine RBC (0-5) /hpf Urine WBC (0-5) /hpf Urine WBC Clumps (None) /hpf Urine Bacteria (None) /hpf Hyaline Casts (0-2) /lpf Urine Mucus (None) /hpf Influenza Type A (PCR) (Not Detectd) Influenza Type B (PCR) (Not Detectd) RSV (PCR) (Not Detectd) SARS-CoV-2 (PCR) (Not Detectd) 10/22/24 10/22/24 Range/Units 09:07 09:07 WBC (3.8-10.6) k/uL RBC (4.30-5.90) m/uL Hgb (13.0-17.5) gm/dL Hct (39.0-53.0) % MCV (80.0-100.0) fL MCH (25.0-35.0) pg MCHC (31.0-37.0) g/dL RDW (11.5-15.5) % MPV Hypochromasia Sodium (137-145) mmol/L Potassium (3.5-5.1) mmol/L Chloride (98-107) mmol/L Carbon Dioxide (22-30) mmol/L Anion Gap mmol/L BUN (9-20) mg/dL Creatinine (0.66-1.25) mg/dL Est GFR (CKD-EPI)AfAm (>60 ml/min/1.73 sqM) Est GFR (CKD-EPI)NonAf (>60 ml/min/1.73 sqM) Glucose (74-99) mg/dL Plasma Lactic Acid Jc (0.7-2.0) mmol/L Calcium (8.4-10.2) mg/dL Total Bilirubin (0.2-1.3) mg/dL AST (17-59) U/L ALT (4-49) U/L Alkaline Phosphatase (38-126) U/L Total Protein (6.3-8.2) g/dL Albumin (3.5-5.0) g/dL Urine Color Light Brown Urine Appearance Turbid (Clear) Urine pH 6.0 (5.0-8.0) Ur Specific [place] 1.015 (1.001-1.035) Urine Protein 2+ H (Negative) Urine Glucose (UA) Negative (Negative) Urine Ketones Negative (Negative) Urine Blood Large H (Negative) Urine Nitrite Negative (Negative) Urine Bilirubin Negative (Negative) Urine Urobilinogen <2.0 (<2.0) mg/dL Ur Leukocyte Esterase Large H (Negative) Urine RBC >182 H (0-5) /hpf Urine WBC >182 H (0-5) /hpf Urine WBC Clumps Many H (None) /hpf Urine Bacteria Occasional H (None) /hpf Hyaline Casts 33 H (0-2) /lpf Urine Mucus Occasional H (None) /hpf Influenza Type A (PCR) Not Detected (Not Detectd) Influenza Type B (PCR) Not Detected (Not Detectd) RSV (PCR) Not Detected (Not Detectd) SARS-CoV-2 (PCR) Not Detected (Not Detectd) Critical Care Time Critical Care Time: Yes Total Critical Care Time: 35 Disposition Clinical Impression: Infection due to ESBL-producing Escherichia coli, UTI (urinary tract infection), Sepsis Disposition: ADMITTED IP TO THIS HOSP Condition: Stable Is patient prescribed a controlled substance at d/c from ED?: No Referrals: Narinder Rosenberg DO [Primary Care Provider] - 1-2 days Time of Disposition: 10:29
[2024-10-22 09:17] LABS: Basophils % (A) 0 %; Eosinophils # (A) 0.1 k/uL (0-0.7); Eosinophils % (A) 0 %; HCT 41.7 % (39.0-53.0); HGB 13.2 gm/dL (13.0-17.5); Hypochromasia Slight; Lymphocytes # (A) 0.7 k/uL (1.0-4.8); Lymphocytes % (A) 4 %; MCH 28.4 pg (25.0-35.0); MCHC 31.5 g/dL (31.0-37.0); MCV 90.2 fL (80.0-100.0); Mean Platelet Volume 8.4; Monocytes # (A) 0.6 k/uL (0-1.0); Monocytes % (A) 4 %; Neutrophils # (A) 14.9 k/uL (1.3-7.7); Neutrophils % (A) 91 %; RBC 4.63 m/uL (4.30-5.90); RDW 15.1 % (11.5-15.5); WBC 16.3 k/uL (3.8-10.6)
[2024-10-22] MEDS: SODIUM CHLORIDE 0.9% 1,000 ML IV ONE (09:18)
[2024-10-22 09:23] LABS: Appearance,Urine Turbid (Clear); Bacteria,Urine Occasional /hpf; Bilirubin,Urine Negative (Negative); Blood,Urine Large (Negative); Color,Urine Light Brown; Glucose,Urine (UA) Negative (Negative); Hyaline Casts,Urine 33 /lpf (0-2); Ketones,Urine Negative (Negative); Leukocyte Esterase,Urine Large (Negative); Mucus,Urine Occasional /hpf; Nitrite,Urine Negative (Negative); Protein,Urine 2+ (Negative); RBC,Urine >182 /hpf (0-5); Urobilinogen,Urine <2.0 mg/dL (<2.0); WBC,Urine >182 /hpf (0-5)
[2024-10-22 09:32] LABS: ALT 17 U/L (4-49); AST 23 U/L (17-59); African American GFR (CKD) 37 (>60 ml/min/1.73 sqM); Albumin 3.2 g/dL (3.5-5.0); Alkaline Phosphatase 69 U/L (38-126); Anion Gap 11 mmol/L; Blood Urea Nitrogen 35 mg/dL (9-20); Calcium 8.4 mg/dL (8.4-10.2); Carbon Dioxide 19 mmol/L (22-30); Chloride 102 mmol/L (98-107); Glucose 234 mg/dL (74-99); Non-African American GFR(CKD) 32 (>60 ml/min/1.73 sqM); Potassium 4.6 mmol/L (3.5-5.1); Sodium 132 mmol/L (137-145); Total Bilirubin 1.6 mg/dL (0.2-1.3); Total Protein 5.4 g/dL (6.3-8.2)
[2024-10-22 09:37] LABS: Specific Gravity,Urine 1.015 (1.001-1.035)
[2024-10-22] MEDS: ACETAMINOPHEN IV (For NPO) 1,000 MG in EMPTY BAG 1 BAG IVPB STA (09:38)
--- NOTE | 2024-10-22 09:47 | XR ---
EXAMINATION TYPE: XR chest 2V DATE OF EXAM: 10/22/2024 9:40 AM COMPARISON: Chest radiographs from 08/04/2023 CLINICAL INDICATION: Male, 84 years old with history of fever; [facility] TECHNIQUE: XR chest 2V Frontal and lateral views of the chest. FINDINGS: Lungs/Pleura: There is no evidence of pleural effusion, focal consolidation, or pneumothorax. Pulmonary vascularity: Unremarkable. Heart/mediastinum: Cardiomediastinal silhouette is unremarkable. Musculoskeletal: No acute osseous pathology. IMPRESSION: No acute cardiopulmonary disease/process. [facility], , 10/22/2024 9:44 AM
[2024-10-22 10:15] LABS: Influenza A Not Detected (Not Detectd); Influenza B Not Detected (Not Detectd); RSV Not Detected (Not Detectd)
[2024-10-22] MEDS ORDERED: NALOXONE 0.4 MG/ML 1 ML VIAL IV PRN (10:25)
[2024-10-22 10:49] LABS: Platelet Count 92 k/uL (150-450)
[2024-10-22] MEDS: SODIUM CHLORIDE 0.9% 1,000 ML IV SCH (11:14)
[2024-10-22] MEDS: ERTAPENEM 1 GM in SODIUM CHLORIDE 0.9% 50 ML IVPB SCH (12:22)
[2024-10-22] MEDS ORDERED: DEXTROSE 50% SYRINGE 50 ML IVP PRN ×2 (13:39)
[2024-10-22] MEDS: PANTOPRAZOLE 40 MG/10 ML VIAL IVP SCH (13:50)
[2024-10-22] MEDS ORDERED: LOPERAMIDE 2 MG CAP PO PRN (14:19)
[2024-10-22] MEDS: TAMSULOSIN 0.4 MG CAP.ER.24H PO SCH (15:35)
[2024-10-22] MEDS: NON FORMULARY DRUG (Vibegron [Gemtesa] 75 MG Tablet) PO SCH (15:35)
[2024-10-22] MEDS: FINASTERIDE 5 MG TAB PO SCH (15:35)
--- NOTE | 2024-10-22 16:18 | P.CONS ---
History of Present Illness - Reason for Consult Consult date: 10/22/24 ESBL UTI Requesting physician: Steffen Merino - Chief Complaint Weakness and fall x 1 day - History of Present Illness Patient is a 84-year-old male with a past medical history significant for Atrial Fibrillation, Blood Disorder, Cancer, Diabetes Mellitus, Hearing Disorder / Deafness, Hyperlipidemia, Hypertension, Osteoarthritis (OA), Pneumonia, Prostate Disorder, Renal Disease, Thyroid Disorder, end-stage renal disease status post renal transplant 22 years ago presenting to the ER for evaluation of weakness that has led to a fall patient denies having any focal weakness or loss of consciousness patient has been dealing with a urinary frequency and dysuria symptom has been going on for more than a week or 2 and patient be diagnosed with a UTI on 10/09/2024 which grew ESBL E. coli patient mention he was treated with an oral antibiotic and did have some improvement initially however after the antibiotic ran out of his symptoms are getting worse he is not very clear about the name of that antibiotic patient on presentation to the hospital was febrile with a temperature of 104.7 F rectal patient did have a heart rate of 90 he was not hypotensive or hypoxic no need for supplemental oxygen patient did have a white count of 16.3 with a left shift. Creatinine has been mildly elevated lactic acid of 3.8 he was given a dose of Rocephin infectious disease was consulted for further management of antibiotic therapy patient did have a chest x-ray no acute cardiopulmonary disease process Review of Systems Positive point and negatives has been mentioned in the HPI, complete review of systems was performed and all other systems are negative Past Medical History Past Medical History: Atrial Fibrillation, Blood Disorder, Cancer, Diabetes Mellitus, Hearing Disorder / Deafness, Hyperlipidemia, Hypertension, Osteoarthritis (OA), Pneumonia, Prostate Disorder, Renal Disease, Thyroid Disorder Additional Past Medical History / Comment(s): polio at 6, back pain, melanoma taken off of left ear & left shoulder, "slow growing cancer of prostate, being watched by Dr Dasilva." Hard of hearing, LOW PLATELETS, Jul 2023 UTI & pneumonia hospitalized at [facility] and went [facility] for re[facility]; "old blood clot in right leg", orthostatic hypotension, frequent falls, uses walker History of Any Multi-Drug Resistant Organisms: ESBL Year Discovered:: 10/09/24 MDRO Source:: urine Past Surgical History: Back Surgery, Ear Surgery, Orthopedic Surgery Additional Past Surgical History / Comment(s): KYPHOPLASTY AND BX (NEG) 2021. Left kidney transplant 2002, parathyroid surgery, arthroscopy knee surgery, pericardiocentesis, cancer removed from left ear Past Anesthesia/Blood Transfusion Reactions: No Reported Reaction Past Psychological History: Anxiety, Depression Smoking Status: Never smoker - Past Family History Father Family Medical History: Deep Vein Thrombosis (DVT) Son(s) Family Medical History: Cancer Mother Family Medical History: Cancer Additional Family Medical History / Comment(s): . Medications and Allergies Home Medications Medication Instructions Recorded Confirmed Type Finasteride [Proscar] 5 mg PO DAILY 02/09/17 10/22/24 History Tamsulosin HCl [Flomax] 0.4 mg PO DAILY 02/09/17 10/22/24 History Multivitamins, Thera [Multivitamin 1 tab PO DAILY 12/31/18 10/22/24 History (formulary)] Vit C/E/Zn/Coppr/Lutein/Zeaxan 1 cap PO HS 12/18/19 10/22/24 History [Preservision Areds 2 Softgel] Pantoprazole [Protonix] 40 mg PO DAILY 12/28/19 10/22/24 History Tacrolimus [Prograf] 1 mg PO BID 04/03/20 10/22/24 History DULoxetine HCL [Cymbalta] 120 mg PO DAILY 12/01/20 10/22/24 History Levothyroxine Sodium [Synthroid] 75 mcg PO DAILY 12/01/20 10/22/24 History Aspirin 81 mg PO DAILY 07/12/21 10/22/24 History QUEtiapine [SEROquel] 100 mg PO HS 07/12/21 10/22/24 History Rosuvastatin Calcium [Crestor] 5 mg PO HS 07/12/21 10/22/24 History Sodium Bicarbonate Tab 650 mg PO BID 07/12/21 10/22/24 History rOPINIRole HCL [Requip] 1 mg PO HS 09/02/21 10/22/24 History Eltrombopag Olamine [Promacta] 12.5 mg PO DAILY@0700 05/31/23 10/22/24 History Magnesium Oxide [Mag-Ox] 400 mg PO DAILY tab 06/07/23 10/22/24 Rx Loperamide [Imodium] 2 mg PO QID PRN #24 cap 08/09/23 10/22/24 Rx mycophenolate mofetiL [Cellcept] 250 mg PO BID #0 08/09/23 10/22/24 Rx Ferrous Sulfate [Iron] 325 mg PO DAILY 03/18/24 10/22/24 History Insulin Glargine/Lixisenatide 25 units SQ DAILY 03/18/24 10/22/24 History [Soliqua 100 Unit-33 Mcg/ml Pen] Gabapentin [Neurontin] 400 mg PO HS 10/22/24 10/22/24 History INSULIN LISPRO (HumaLOG) [humaLOG] See Protocol SQ AC-TID 10/22/24 10/22/24 History Metoprolol Tartrate [Lopressor] 100 mg PO BID 10/22/24 10/22/24 History Vibegron [Gemtesa] 75 mg PO DAILY 10/22/24 10/22/24 History amLODIPine [Norvasc] 2.5 mg PO DAILY 10/22/24 10/22/24 History hydrALAZINE HCL [Apresoline] 100 mg PO TID PRN 10/22/24 10/22/24 History predniSONE 5 mg PO DAILY 10/22/24 10/22/24 History Allergies Allergy/AdvReac Type Severity Reaction Status Date / Time morphine Allergy Severe Itching Verified 10/22/24 10:37 Physical Exam Vitals: Vital Signs Temp Pulse Resp BP Pulse Ox 10/22/24 08:27 104.7 F H 88 18 139/74 94 L Intake and Output 10/21/24 10/22/24 10/22/24 22:59 06:59 14:59 Other: Weight 90.718 kg GENERAL DESCRIPTION: Elderly male lying in bed, no distress. No tachypnea or accessory muscle of respiration use. HEENT: Shows Pallor , no scleral icterus. Oral mucous membrane is dry. NECK: Trachea central, no thyromegaly. LUNGS: Unlabored breathing. Clear to auscultation anteriorly. No wheeze or crackle. HEART: S1, S2, regular rate and rhythm. No loud murmur ABDOMEN: Soft, no tenderness , guarding or rigidity, no organomegaly EXTREMITIES: No edema of feet. SKIN: No rash, no masses palpable. NEUROLOGICAL: The patient is awake, alert, oriented x3, mood and affect normal. Results CBC & Chem 7: 10/22/24 08:52 10/22/24 08:52 Labs: Abnormal Lab Results - Last 24 Hours (Table) 10/22/24 10/22/24 10/22/24 Range/Units 08:52 08:52 08:52 WBC 16.3 H (3.8-10.6) k/uL Plt Count 92 L (150-450) k/uL Neutrophils # 14.9 H (1.3-7.7) k/uL Lymphocytes # 0.7 L (1.0-4.8) k/uL Sodium 132 L (137-145) mmol/L Carbon Dioxide 19 L (22-30) mmol/L BUN 35 H (9-20) mg/dL Creatinine 1.89 H (0.66-1.25) mg/dL Glucose 234 H (74-99) mg/dL Plasma Lactic Acid Jc 3.8 H* (0.7-2.0) mmol/L Total Bilirubin 1.6 H (0.2-1.3) mg/dL Total Protein 5.4 L (6.3-8.2) g/dL Albumin 3.2 L (3.5-5.0) g/dL Urine Protein (Negative) Urine Blood (Negative) Ur Leukocyte Esterase (Negative) Urine RBC (0-5) /hpf Urine WBC (0-5) /hpf Urine WBC Clumps (None) /hpf Urine Bacteria (None) /hpf Hyaline Casts (0-2) /lpf Urine Mucus (None) /hpf 10/22/24 Range/Units 09:07 WBC (3.8-10.6) k/uL Plt Count (150-450) k/uL Neutrophils # (1.3-7.7) k/uL Lymphocytes # (1.0-4.8) k/uL Sodium (137-145) mmol/L Carbon Dioxide (22-30) mmol/L BUN (9-20) mg/dL Creatinine (0.66-1.25) mg/dL Glucose (74-99) mg/dL Plasma Lactic Acid Jc (0.7-2.0) mmol/L Total Bilirubin (0.2-1.3) mg/dL Total Protein (6.3-8.2) g/dL Albumin (3.5-5.0) g/dL Urine Protein 2+ H (Negative) Urine Blood Large H (Negative) Ur Leukocyte Esterase Large H (Negative) Urine RBC >182 H (0-5) /hpf Urine WBC >182 H (0-5) /hpf Urine WBC Clumps Many H (None) /hpf Urine Bacteria Occasional H (None) /hpf Hyaline Casts 33 H (0-2) /lpf Urine Mucus Occasional H (None) /hpf Assessment and Plan (1) Infection due to ESBL-producing Escherichia coli Current Visit: Yes Status: Acute Code(s): A49.8 - OTHER BACTERIAL INFECTIONS OF UNSPECIFIED SITE; Z16.12 - EXTENDED SPECTRUM BETA LACTAMASE (ESBL) RESISTANCE SNOMED Code(s): 133645396 (2) Sepsis Current Visit: Yes Status: Acute Code(s): A41.9 - SEPSIS, UNSPECIFIED ORGANISM SNOMED Code(s): 33257138 (3) UTI (urinary tract infection) Current Visit: Yes Status: Acute Code(s): N39.0 - URINARY TRACT INFECTION, SITE NOT SPECIFIED SNOMED Code(s): 56986465 Plan: 1patient presented to hospital with sepsis in this patient who did have fever t achycardia elevated white count elevated lactic acid meeting currently for SIRS/sepsis source is likely urinary in this patient who did have a 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 coli treated with oral antibiotic more likely dealing with the same pathogen. 2history of renal transplant on immunosuppressive 3we will start patient on Invanz 1 g daily while waiting for the culture to finalize. Question concern answered. We will follow on clinical condition and cultures to further adjust medication if needed Thank you for this consultation we will follow the patient along with you Dictation was produced using [employer] dictation software. please excuse any grammatical, word or spelling errors. Time with Patient: Greater than 30
[2024-10-22 17:14] LABS: Glucose,Whole Blood 350 mg/dL (70-110)
[2024-10-22] MEDS: INSULIN LISPRO (HumaLOG) 100 UNIT/ML 10 mL VL SQ SCH (17:28)
[2024-10-22] MEDS: ACETAMINOPHEN TAB 325 MG TAB PO PRN (19:41)
[2024-10-22] MEDS ORDERED: ONDANSETRON 4 MG/2 ML VIAL IVP PRN (21:29)
[2024-10-22 21:51] LABS: Glucose,Whole Blood 154 mg/dL (70-110)
[2024-10-22] MEDS: QUEtiapine 100 MG TAB PO SCH (22:19)
[2024-10-22] MEDS: METOPROLOL TARTRATE 50 MG TAB PO SCH (22:19)
[2024-10-22] MEDS: SODIUM BICARBONATE TAB 650 MG TAB PO SCH (22:19)
[2024-10-22] MEDS: VIT A,C & E-LUTEIN-MINERALS 1 EACH TAB PO SCH (22:20)
[2024-10-22] MEDS: TACROLIMUS 1 MG CAP PO SCH (22:20)
[2024-10-22] MEDS: ACETAMINOPHEN IV (For NPO) 1,000 MG in EMPTY BAG 1 BAG IVPB SCH (22:32)
[2024-10-23] MEDS: LEVOTHYROXINE 75 MCG TAB PO SCH (06:22)
[2024-10-23 06:32] LABS: Glucose,Whole Blood 163 mg/dL (70-110)
[2024-10-23] MEDS ORDERED: ELTROMBOPAG OLAMINE PO SCH (07:00)
[2024-10-23] MEDS: PROMACTA 12.5 MG PO SCH (07:00)
[2024-10-23] MEDS: MEROPENEM 1 GM in SODIUM CHLORIDE 0.9% 100 ML IVPB SCH (09:32)
[2024-10-23] MEDS: ASPIRIN 81 MG PO SCH (09:35)
[2024-10-23] MEDS: FERROUS SULFATE 325 MG TAB PO SCH (09:41)
[2024-10-23] MEDS: predniSONE 5 MG TAB PO SCH (09:42)
[2024-10-23 10:11] LABS: ALT 13 U/L (4-49); AST 18 U/L (17-59); African American GFR (CKD) 32 (>60 ml/min/1.73 sqM); Albumin 2.5 g/dL (3.5-5.0); Alkaline Phosphatase 53 U/L (38-126); Anion Gap 7 mmol/L; Blood Urea Nitrogen 44 mg/dL (9-20); Calcium 7.4 mg/dL (8.4-10.2); Carbon Dioxide 23 mmol/L (22-30); Chloride 102 mmol/L (98-107); Glucose 123 mg/dL (74-99); Magnesium 2.1 mg/dL (1.6-2.3); Non-African American GFR(CKD) 28 (>60 ml/min/1.73 sqM); Potassium 4.5 mmol/L (3.5-5.1); Sodium 132 mmol/L (137-145); Total Bilirubin 0.9 mg/dL (0.2-1.3); Total Protein 4.4 g/dL (6.3-8.2)
[2024-10-23] MEDS: DULoxetine HCL 60 MG CAPSULE.DR PO SCH (10:38)
[2024-10-23 10:40] LABS: Basophils % (A) 0 %; Eosinophils # (A) 0.1 k/uL (0-0.7); Eosinophils % (A) 1 %; HCT 34.4 % (39.0-53.0); HGB 10.6 gm/dL (13.0-17.5); Hypochromasia Slight; Lymphocytes # (A) 0.9 k/uL (1.0-4.8); Lymphocytes % (A) 7 %; MCH 28.3 pg (25.0-35.0); MCHC 30.8 g/dL (31.0-37.0); Mean Platelet Volume 9.3; Monocytes # (A) 0.8 k/uL (0-1.0); Monocytes % (A) 6 %; Neutrophils # (A) 11.2 k/uL (1.3-7.7); Neutrophils % (A) 85 %; RBC 3.74 m/uL (4.30-5.90); RDW 15.4 % (11.5-15.5); WBC 13.2 k/uL (3.8-10.6)
[2024-10-23] MEDS: HYDROCORTISONE SUCCINATE 100 MG/2 ML VIAL IV STA (10:48)
--- NOTE | 2024-10-23 11:42 | P.HPIM ---
History of Present Illness H&P Date: 10/22/24 This Is a 84-year-old gentleman with chronic kidney disease, solitary kidney, renal transplant ,ESBL E. coli UTI and multiple other medical issues presented to the ER with UTI with ESBL E. coli failed outpatient treatment with nitrofuradanton.discloses progressive dysuria, urinary frequency, nausea, vomiting, generalized weakness with recent fall. Reports he fell forward into his bed related to generalized weakness, denies head/neck or extremity trauma. Denies syncope. Denies lightheadedness dizziness or headache or focal deficits. denies abdominal pain. Reports mild occasional cough. on admission temperature 104.7,WBC of 16.3 and lactic acid of 3.8. Tmax 104.7, WBC 16.3, hemoglobin 13.2, platelets 92, sodium 132, potassium 4.6, bicarb 19, BUN 35, creatinine 1.89, glucose 234, lactic acid 3.8, 1.3 T. bili 1.6, albumin 3.2; current labs pending. UA reported large blood, negative nitrates, large leukocytes, greater than 182 RBCs and WBCs, many WBC clumps, occasional bacteria and 33 hyaline cast. Viral studies negative. Chest x-ray reported no acute cardiopulmonary disease/process. Initially received ceftriaxone,Invanz yesterday .preliminary blood culture reported molecular ID,CTX-.M., E. coli. Antibiotics adjusted to Merrem as per ID. Review of Systems ROS Statement: Those systems with pertinent positive or pertinent negative responses have been documented in the HPI. ROS Other: All systems not noted in ROS Statement are negative. Past Medical History Past Medical History: Atrial Fibrillation, Blood Disorder, Cancer, Diabetes Mellitus, Hearing Disorder / Deafness, Hyperlipidemia, Hypertension, Osteoarthritis (OA), Pneumonia, Prostate Disorder, Renal Disease, Thyroid Disorder Additional Past Medical History / Comment(s): polio at 6, back pain, melanoma taken off of left ear & left shoulder, "slow growing cancer of prostate, being watched by Dr Dasilva." Hard of hearing, LOW PLATELETS, Jul 2023 UTI & pneumonia hospitalized at [facility] and went to [facility] for rehab; "old blood clot in right leg", orthostatic hypotension, frequent falls, uses walker History of Any Multi-Drug Resistant Organisms: ESBL Date of last positivie culture/infection: 10/09/24 MDRO Source:: urine Past Surgical History: Back Surgery, Ear Surgery, Orthopedic Surgery Additional Past Surgical History / Comment(s): KYPHOPLASTY AND BX (NEG) 2021. Left kidney transplant 2002, parathyroid surgery, arthroscopy knee surgery, pericardiocentesis, cancer removed from left ear Past Anesthesia/Blood Transfusion Reactions: No Reported Reaction Past Psychological History: Anxiety, Depression Smoking Status: Never smoker - Past Family History Father Family Medical History: Deep Vein Thrombosis (DVT) Son(s) Family Medical History: Cancer Mother Family Medical History: Cancer Additional Family Medical History / Comment(s): . Medications and Allergies Home Medications Medication Instructions Recorded Confirmed Type Finasteride [Proscar] 5 mg PO DAILY 02/09/17 10/22/24 History Tamsulosin HCl [Flomax] 0.4 mg PO DAILY 02/09/17 10/22/24 History Multivitamins, Thera [Multivitamin 1 tab PO DAILY 12/31/18 10/22/24 History (formulary)] Vit C/E/Zn/Coppr/Lutein/Zeaxan 1 cap PO HS 12/18/19 10/22/24 History [Preservision Areds 2 Softgel] Pantoprazole [Protonix] 40 mg PO DAILY 12/28/19 10/22/24 History Tacrolimus [Prograf] 1 mg PO BID 04/03/20 10/22/24 History DULoxetine HCL [Cymbalta] 120 mg PO DAILY 12/01/20 10/22/24 History Levothyroxine Sodium [Synthroid] 75 mcg PO DAILY 12/01/20 10/22/24 History Aspirin 81 mg PO DAILY 07/12/21 10/22/24 History QUEtiapine [SEROquel] 100 mg PO HS 07/12/21 10/22/24 History Rosuvastatin Calcium [Crestor] 5 mg PO HS 07/12/21 10/22/24 History Sodium Bicarbonate Tab 650 mg PO BID 07/12/21 10/22/24 History rOPINIRole HCL [Requip] 1 mg PO HS 09/02/21 10/22/24 History Eltrombopag Olamine [Promacta] 12.5 mg PO DAILY@0700 05/31/23 10/22/24 History Magnesium Oxide [Mag-Ox] 400 mg PO DAILY tab 06/07/23 10/22/24 Rx Loperamide [Imodium] 2 mg PO QID PRN #24 cap 08/09/23 10/22/24 Rx mycophenolate mofetiL [Cellcept] 250 mg PO BID #0 08/09/23 10/22/24 Rx Ferrous Sulfate [Iron] 325 mg PO DAILY 03/18/24 10/22/24 History Insulin Glargine/Lixisenatide 25 units SQ DAILY 03/18/24 10/22/24 History [Soliqua 100 Unit-33 Mcg/ml Pen] Gabapentin [Neurontin] 400 mg PO HS 10/22/24 10/22/24 History INSULIN LISPRO (HumaLOG) [humaLOG] See Protocol SQ AC-TID 10/22/24 10/22/24 History Metoprolol Tartrate [Lopressor] 100 mg PO BID 10/22/24 10/22/24 History Vibegron [Gemtesa] 75 mg PO DAILY 10/22/24 10/22/24 History amLODIPine [Norvasc] 2.5 mg PO DAILY 10/22/24 10/22/24 History hydrALAZINE HCL [Apresoline] 100 mg PO TID PRN 10/22/24 10/22/24 History predniSONE 5 mg PO DAILY 10/22/24 10/22/24 History Allergies Allergy/AdvReac Type Severity Reaction Status Date / Time morphine Allergy Severe Itching Verified 10/22/24 10:37 Physical Exam Vitals: Vital Signs Temp Pulse Resp BP Pulse Ox 10/22/24 11:17 102.3 F H 90 18 104/86 96 10/22/24 08:27 104.7 F H 88 18 139/74 94 L Intake and Output 10/21/24 10/22/24 10/22/24 22:59 06:59 14:59 Other: Weight 90.718 kg VITAL SIGNS: Reviewed GENERAL: [place],Alert and oriented 3, Sitting up in bed, no acute distress HEENT: Normocephalic, Conjunctivae normal. eyes normal. NECK: Supple, No JVD. CARDIOVASCULAR: S1, S2 regular.systolic murmur RESPIRATION: Unlabored, Breath sounds diminished in the bases. ABDOMEN: Soft, nontender . No guarding. no masses palpable. +BS LEGS: No edema. no swelling. NERVOUS SYSTEM: Cranial N 2-12 grossly normal. No focal deficits. Strength and sensation grossly intact. Skin: Warm and dry, no rash Microbiology 10/22/24 08:52 Blood Blood Culture Gram Stain - Preliminary 10/22/24 08:52 Blood Blood Culture - Preliminary Molecular ID Results CBC & Chem 7: 10/23/24 09:23 10/23/24 09:23 Labs: Abnormal Lab Results - Last 24 Hours (Table) 10/22/24 10/22/24 10/22/24 Range/Units 08:52 08:52 08:52 WBC 16.3 H (3.8-10.6) k/uL Plt Count 92 L (150-450) k/uL Neutrophils # 14.9 H (1.3-7.7) k/uL Lymphocytes # 0.7 L (1.0-4.8) k/uL Sodium 132 L (137-145) mmol/L Carbon Dioxide 19 L (22-30) mmol/L BUN 35 H (9-20) mg/dL Creatinine 1.89 H (0.66-1.25) mg/dL Glucose 234 H (74-99) mg/dL Plasma Lactic Acid Jc 3.8 H* (0.7-2.0) mmol/L Total Bilirubin 1.6 H (0.2-1.3) mg/dL Total Protein 5.4 L (6.3-8.2) g/dL Albumin 3.2 L (3.5-5.0) g/dL Urine Protein (Negative) Urine Blood (Negative) Ur Leukocyte Esterase (Negative) Urine RBC (0-5) /hpf Urine WBC (0-5) /hpf Urine WBC Clumps (None) /hpf Urine Bacteria (None) /hpf Hyaline Casts (0-2) /lpf Urine Mucus (None) /hpf 10/22/24 Range/Units 09:07 WBC (3.8-10.6) k/uL Plt Count (150-450) k/uL Neutrophils # (1.3-7.7) k/uL Lymphocytes # (1.0-4.8) k/uL Sodium (137-145) mmol/L Carbon Dioxide (22-30) mmol/L BUN (9-20) mg/dL Creatinine (0.66-1.25) mg/dL Glucose (74-99) mg/dL Plasma Lactic Acid Jc (0.7-2.0) mmol/L Total Bilirubin (0.2-1.3) mg/dL Total Protein (6.3-8.2) g/dL Albumin (3.5-5.0) g/dL Urine Protein 2+ H (Negative) Urine Blood Large H (Negative) Ur Leukocyte Esterase Large H (Negative) Urine RBC >182 H (0-5) /hpf Urine WBC >182 H (0-5) /hpf Urine WBC Clumps Many H (None) /hpf Urine Bacteria Occasional H (None) /hpf Hyaline Casts 33 H (0-2) /lpf Urine Mucus Occasional H (None) /hpf Assessment and Plan Assessment: Acute sepsis secondary to acute bacteremia gram neg and acute UTI with ESBL E. coli, failed outpatient treatment with nitrofurantoin, in a patient with history of previous ESBL E. coli , Morganella morganii UTIs. Acute bacteremia,molecular ID,CTX-.M., E. coli,suspect r/t acute UTI Acute leukocytosis secondary to the above Acute thrombocytopenia Acute renal failure secondary to infection Acute hyponatremia, mild Lactic acidosis Acute hypoxic respiratory failure secondary to all the above Generalized weakness secondary to all the above, status post recent fall Hypoalbuminemia, moderate protein calorie malnutrition Renal transplant on chronic immunosuppression, Prograf, CellCept and prednisone Chronic renal failure stage IIIA, history of renal transplant, baseline creatinine 1.2-1.4. 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 Craig Depression Anxiety Obesity, BMI 30 Plan: Continue on current medication regime ,monitoring and symptomatic treatment. Nephrology consulted in a patient with acute renal failure, history of renal transplant presenting with acute renal failure and infection. IV fluid resuscitation, IV antibiotics of Merrem as per ID. PT/OT. The impression and plan of care has been dictated as directed. : I performed a history and examination of this patient, discussed the same with the dictator. I agree with the dictator's note ,documented as a scribe. Any additional findings or plans will be noted.
[2024-10-23 11:55] LABS: Platelet Count 75 k/uL (150-450)
--- NOTE | 2024-10-23 12:01 | P.PN ---
Subjective Progress Note Date: 10/23/24 Principal diagnosis: Reason for follow-up is sepsis and bacteremia Patient is a 84-year-old male with a past medical history significant for Atrial Fibrillation, Blood Disorder, Cancer, Diabetes Mellitus, Hearing Disorder / Deafness, Hyperlipidemia, Hypertension, Osteoarthritis (OA), Pneumonia, Prostate Disorder, Renal Disease, Thyroid Disorder, end-stage renal disease status post renal transplant 22 years ago presenting to the ER for evaluation of weakness, patient was noticed to be septic from urinary source prompted this consultation. Blood culture subsequently came back positive for ESBL E. coli. On today's evaluation that is 10/23/2024,the patient did have resolution of his fever and is afebrile this morning, patient is breathing comfortably on room air , the patient denies chest pain shortness of breath and no significant cough, patient denies abdominal pain, no nausea vomiting or diarrhea. Patient did have a creatinine 2.16 liver enzymes are normal blood cultures with ESBL E. coli Objective - Vital Signs Vital signs: Vital Signs Temp 97.0 F L 10/23/24 04:35 Pulse 65 10/23/24 04:35 Resp 18 10/23/24 04:35 BP 103/57 10/23/24 04:35 Pulse Ox 98 10/23/24 04:35 FiO2 Intake & Output 10/22/24 10/23/24 10/23/24 18:59 06:59 18:59 Weight 90.718 kg - Exam GENERAL DESCRIPTION: An elderly male lying in bed in no distress RESPIRATORY SYSTEM: Unlabored breathing , decreased breath sounds at bases HEART: S1 S2 regular rate and rhythm , ABDOMEN: Soft , no tenderness EXTREMITIES: No edema feet - Labs CBC & Chem 7: 10/23/24 09:23 10/23/24 09:23 Labs: Abnormal Lab Results - Last 24 Hours (Table) 10/22/24 10/22/24 10/22/24 Range/Units 08:52 08:52 08:52 WBC 16.3 H (3.8-10.6) k/uL Plt Count 92 L (150-450) k/uL Neutrophils # 14.9 H (1.3-7.7) k/uL Lymphocytes # 0.7 L (1.0-4.8) k/uL Sodium 132 L (137-145) mmol/L Carbon Dioxide 19 L (22-30) mmol/L BUN 35 H (9-20) mg/dL Creatinine 1.89 H (0.66-1.25) mg/dL Glucose 234 H (74-99) mg/dL POC Glucose (mg/dL) (70-110) mg/dL Plasma Lactic Acid Jc 3.8 H* (0.7-2.0) mmol/L Total Bilirubin 1.6 H (0.2-1.3) mg/dL Total Protein 5.4 L (6.3-8.2) g/dL Albumin 3.2 L (3.5-5.0) g/dL Urine Protein (Negative) Urine Blood (Negative) Ur Leukocyte Esterase (Negative) Urine RBC (0-5) /hpf Urine WBC (0-5) /hpf Urine WBC Clumps (None) /hpf Urine Bacteria (None) /hpf Hyaline Casts (0-2) /lpf Urine Mucus (None) /hpf 10/22/24 10/22/24 10/22/24 Range/Units 09:07 17:12 21:47 WBC (3.8-10.6) k/uL Plt Count (150-450) k/uL Neutrophils # (1.3-7.7) k/uL Lymphocytes # (1.0-4.8) k/uL Sodium (137-145) mmol/L Carbon Dioxide (22-30) mmol/L BUN (9-20) mg/dL Creatinine (0.66-1.25) mg/dL Glucose (74-99) mg/dL POC Glucose (mg/dL) 350 H 154 H (70-110) mg/dL Plasma Lactic Acid Jc (0.7-2.0) mmol/L Total Bilirubin (0.2-1.3) mg/dL Total Protein (6.3-8.2) g/dL Albumin (3.5-5.0) g/dL Urine Protein 2+ H (Negative) Urine Blood Large H (Negative) Ur Leukocyte Esterase Large H (Negative) Urine RBC >182 H (0-5) /hpf Urine WBC >182 H (0-5) /hpf Urine WBC Clumps Many H (None) /hpf Urine Bacteria Occasional H (None) /hpf Hyaline Casts 33 H (0-2) /lpf Urine Mucus Occasional H (None) /hpf 10/23/24 Range/Units 06:29 WBC (3.8-10.6) k/uL Plt Count (150-450) k/uL Neutrophils # (1.3-7.7) k/uL Lymphocytes # (1.0-4.8) k/uL Sodium (137-145) mmol/L Carbon Dioxide (22-30) mmol/L BUN (9-20) mg/dL Creatinine (0.66-1.25) mg/dL Glucose (74-99) mg/dL POC Glucose (mg/dL) 163 H (70-110) mg/dL Plasma Lactic Acid Jc (0.7-2.0) mmol/L Total Bilirubin (0.2-1.3) mg/dL Total Protein (6.3-8.2) g/dL Albumin (3.5-5.0) g/dL Urine Protein (Negative) Urine Blood (Negative) Ur Leukocyte Esterase (Negative) Urine RBC (0-5) /hpf Urine WBC (0-5) /hpf Urine WBC Clumps (None) /hpf Urine Bacteria (None) /hpf Hyaline Casts (0-2) /lpf Urine Mucus (None) /hpf Microbiology - Last 24 Hours (Table) 10/22/24 08:52 Blood Culture Gram Stain - Preliminary Blood Blood Culture - Preliminary Molecular ID Assessment and Plan (1) Infection due to ESBL-producing Escherichia coli Current Visit: Yes Status: Acute Code(s): A49.8 - OTHER BACTERIAL INFECTIONS OF UNSPECIFIED SITE; Z16.12 - EXTENDED SPECTRUM BETA LACTAMASE (ESBL) RESISTANCE SNOMED Code(s): 620782566 (2) Sepsis Current Visit: Yes Status: Acute Code(s): A41.9 - SEPSIS, UNSPECIFIED ORGANISM SNOMED Code(s): 03703190 (3) UTI (urinary tract infection) Current Visit: Yes Status: Acute Code(s): N39.0 - URINARY TRACT INFECTION, SITE NOT SPECIFIED SNOMED Code(s): 01226296 (4) Bacteremia Current Visit: Yes Status: Acute Code(s): R78.81 - BACTEREMIA SNOMED Code(s): 1782120 Plan: 1patient presented to hospital with sepsis in this patient who did have fever tachycardia elevated white count elevated lactic acid meeting currently for SIRS/sepsis source is likely urinary in this patient who did have a 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 coli treated with oral antibiotic more likely dealing with the same pathogen. 2history of renal transplant on immunosuppressive 3patient clinical course complicated by development of bacteremia source is likely UTI we will check ultrasound to make sure no evidence of any structural abnormality or abscess 4antibiotic has been adjusted to meropenem 1 g every 8 hours and will likely need IV antibiotics on discharge Dictation was produced using [employer] dictation software. please excuse any grammatical, word or spelling errors. Time with Patient: Less than 30
[2024-10-23 12:17] LABS: Glucose,Whole Blood 128 mg/dL (70-110)
--- NOTE | 2024-10-23 13:19 | P.NPCON ---
History of Present Illness - Reason for Consult acute renal failure - History of Present Illness Patient is an 84-year-old male with history of donor kidney transplant in 2002 with baseline creatinine around 1.4 mg/dL. He is admitted to the hospital with history of abdominal discomfort and burning sensation while passing urine. Patient also states that he was quite weak and fell twice. Blood pressure was low with 90/58 mmHg documented earlier this morning. Blood cultures are growing gram-negative bacilli UA suggestive of UTI. Maintained on IV fluids and IV antibiotics. Serum creatinine was 1.89 on admission and increased to 2.1 today. Patient had a Dubon catheter placed yesterday. It is unclear if he had urine retention. Past Medical History Past Medical History: Atrial Fibrillation, Blood Disorder, Cancer, Diabetes Mellitus, Hearing Disorder / Deafness, Hyperlipidemia, Hypertension, Osteoarthritis (OA), Pneumonia, Prostate Disorder, Renal Disease, Thyroid Disorder Additional Past Medical History / Comment(s): polio at 6, back pain, melanoma taken off of left ear & left shoulder, "slow growing cancer of prostate, being watched by Dr Dasilva." Hard of hearing, LOW PLATELETS, Jul 2023 UTI & pneumonia hospitalized at [facility] and went to [facility] for rehab; "old blood clot in right leg", orthostatic hypotension, frequent falls, uses walker History of Any Multi-Drug Resistant Organisms: ESBL Date of last positivie culture/infection: 10/09/24 MDRO Source:: urine Past Surgical History: Back Surgery, Ear Surgery, Orthopedic Surgery Additional Past Surgical History / Comment(s): KYPHOPLASTY AND BX (NEG) 2021. Left kidney transplant 2002, parathyroid surgery, arthroscopy knee surgery, pericardiocentesis, cancer removed from left ear Past Anesthesia/Blood Transfusion Reactions: No Reported Reaction Past Psychological History: Anxiety, Depression Smoking Status: Never smoker - Past Family History Father Family Medical History: Deep Vein Thrombosis (DVT) Son(s) Family Medical History: Cancer Mother Family Medical History: Cancer Additional Family Medical History / Comment(s): . Medications and Allergies Home Medications Medication Instructions Recorded Confirmed Type Finasteride [Proscar] 5 mg PO DAILY 02/09/17 10/22/24 History Tamsulosin HCl [Flomax] 0.4 mg PO DAILY 02/09/17 10/22/24 History Multivitamins, Thera [Multivitamin 1 tab PO DAILY 12/31/18 10/22/24 History (formulary)] Vit C/E/Zn/Coppr/Lutein/Zeaxan 1 cap PO HS 12/18/19 10/22/24 History [Preservision Areds 2 Softgel] Pantoprazole [Protonix] 40 mg PO DAILY 12/28/19 10/22/24 History Tacrolimus [Prograf] 1 mg PO BID 04/03/20 10/22/24 History DULoxetine HCL [Cymbalta] 120 mg PO DAILY 12/01/20 10/22/24 History Levothyroxine Sodium [Synthroid] 75 mcg PO DAILY 12/01/20 10/22/24 History Aspirin 81 mg PO DAILY 07/12/21 10/22/24 History QUEtiapine [SEROquel] 100 mg PO HS 07/12/21 10/22/24 History Rosuvastatin Calcium [Crestor] 5 mg PO HS 07/12/21 10/22/24 History Sodium Bicarbonate Tab 650 mg PO BID 07/12/21 10/22/24 History rOPINIRole HCL [Requip] 1 mg PO HS 09/02/21 10/22/24 History Eltrombopag Olamine [Promacta] 12.5 mg PO DAILY@0700 05/31/23 10/22/24 History Magnesium Oxide [Mag-Ox] 400 mg PO DAILY tab 06/07/23 10/22/24 Rx Loperamide [Imodium] 2 mg PO QID PRN #24 cap 08/09/23 10/22/24 Rx mycophenolate mofetiL [Cellcept] 250 mg PO BID #0 08/09/23 10/22/24 Rx Ferrous Sulfate [Iron] 325 mg PO DAILY 03/18/24 10/22/24 History Insulin Glargine/Lixisenatide 25 units SQ DAILY 03/18/24 10/22/24 History [Soliqua 100 Unit-33 Mcg/ml Pen] Gabapentin [Neurontin] 400 mg PO HS 10/22/24 10/22/24 History INSULIN LISPRO (HumaLOG) [humaLOG] See Protocol SQ AC-TID 10/22/24 10/22/24 History Metoprolol Tartrate [Lopressor] 100 mg PO BID 10/22/24 10/22/24 History Vibegron [Gemtesa] 75 mg PO DAILY 10/22/24 10/22/24 History amLODIPine [Norvasc] 2.5 mg PO DAILY 10/22/24 10/22/24 History hydrALAZINE HCL [Apresoline] 100 mg PO TID PRN 10/22/24 10/22/24 History predniSONE 5 mg PO DAILY 10/22/24 10/22/24 History Allergies Allergy/AdvReac Type Severity Reaction Status Date / Time morphine Allergy Severe Itching Verified 10/22/24 10:37 Physical Exam Vitals: Vital Signs Temp Pulse Resp BP Pulse Ox 10/23/24 11:20 98.2 F 58 L 18 135/83 98 10/23/24 10:00 16 167/80 10/23/24 09:30 129/63 10/23/24 09:00 145/69 10/23/24 04:35 97.0 F L 65 18 103/57 98 10/23/24 01:16 84 18 90/58 99 10/23/24 00:27 98.7 F 10/22/24 22:29 98.4 F 10/22/24 22:15 90 18 122/83 94 L 10/22/24 20:51 90 18 141/74 95 10/22/24 19:45 91 18 155/81 90 L 10/22/24 19:30 102.8 F H 10/22/24 15:37 71 18 126/68 96 10/22/24 15:30 101.7 F H Patient is awake, comfortable, alert oriented x 3 Examination of the heart S1 and S2 Examination of the lungs bilateral breath sounds are heard Abdomen is soft nontender Examination of lower extremities shows no evidence of edema 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 Acute kidney injury, ATN from hypotension and underlying infection, nonoliguric. Currently with Dubon catheter which was placed in the ER. No documentation of urine retention. UA suggestive of UTI 2. Sepsis with blood cultures growing gram-negative bacilli most likely urinary source 3. Status post donor transplant in 2002 maintained on Prograf CellCept and prednisone. 4. Hypotension from sepsis Plan: Continue with antibiotics IV hydrocortisone x 1 Increase dose of prednisone and hold CellCept for now. Continue with Prograf Check Prograf level in a.m. Continue with oral sodium bicarb Continue IV fluids Repeat labs in a.m. Thank you for the consultation. We will continue to follow the patient with you during his hospitalization.
--- NOTE | 2024-10-23 13:46 | US ---
EXAMINATION TYPE: US renals and bladder DATE OF EXAM: 10/23/2024 COMPARISON: 08/06/2023 CLINICAL INDICATION: Male, 84 years old with history of Transplant nephritis and bacteremia; NEW INFE CTION, H/O LEFT PELVIC RENAL TRANSPLANT 22 YEARS AGO TECHNIQUE: Grayscale imaging of the bilateral kidneys and urinary bladder: FINDINGS: EXAM MEASUREMENTS: Right Kidney: 9.0 x 3.9 x 4.2 cm Left Kidney: 9.1 x 4.0 x 4.5 cm Right Kidney: atrophic Left Kidney: atrophic Bladder: gutiérrez seen inferiorly Left pelvic transplant = 10.9 x 4.9 x 5.8cm, small cystic lesion superior pole = 1.4 x 1.0 x 1.4cm There is no evidence for hydronephrosis at this point in time. No nephrolithiasis is seen. No deidre s are identified. The urinary bladder is anechoic. IMPRESSION: 1. Atrophic [place] kidneys, 2. 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 Simple appearing pelvic transplant cyst. [facility], , 10/23/2024 1:44 PM
[2024-10-23 16:59] LABS: Glucose,Whole Blood 354 mg/dL (70-110)
[2024-10-23] MEDS: NON FORMULARY DRUG (Vibegron [Gemtesa] 75 MG Tablet) PO SCH (17:25)
[2024-10-23 20:58] LABS: Glucose,Whole Blood 238 mg/dL (70-110)
[2024-10-24 06:45] LABS: Glucose,Whole Blood 241 mg/dL (70-110)
[2024-10-24 08:28] LABS: BUN/Creat Ratio 23.35 Ratio (12.00-20.00); Blood Urea Nitrogen 46.7 mg/dL (9.0-27.0); Calcium 7.4 mg/dL (8.7-10.3); Carbon Dioxide 18.6 mmol/L (21.6-31.8); Chloride 104 mmol/L (96-109); Glucose 227 mg/dL (70-110); Potassium 4.5 mmol/L (3.5-5.5); Sodium 135 mmol/L (135-145)
[2024-10-24] MEDS: predniSONE 5 MG TAB PO SCH (08:48)
--- NOTE | 2024-10-24 11:13 | CDI ---
Documentation Clarification Form Date: 10/24/2024 10:39:52 AM From: Daisy Cruz RN CCDS Phone: [phone] Admit Date: 10/22/2024 10:27:00 AM Patient Name: Chet Lobo Visit Number: [id number] Discharge Date: ATTENTION: The Clinical Documentation Specialists (CDI) and [facility] Coding Staff appreciate your assistance in clarifying documentation. Please respond to the clarification below the line at the bottom and electronically sign. The CDI & [facility] Coding staff will review the response and follow-up if needed. Please note: Queries are made part of the Legal Health Record. If you have any questions, please contact the author of this message via ITS. Chet Edge, DO Acute Hypoxic Respiratory Failure is documented 10/23, HP which may lack sufficient clinical evidence/support in the medical record. Additional clarification is requested. Patient history/risk factors: 84 year old male presents to the ED after a fall forward into his bed related to generalized weakness and vomiting, denies head/neck or extremity trauma. Patient reports mild occasional cough. Patient found to have temperature of 104.7. ED note 10/22 Clinical Indicators: 10/23 HP Respiration: Unlabored, Breath sounds diminished in the bases. 10/22 ID consult: Lungs: Unlabored breathing. Clear to auscultation anteriorly. No wheeze or crackle 10/22 08:27 RR 18, SpO2 94% room air 10/22 19:45 RR 18, SpO2 90% room air 10/22 20:51 RR 18, SpO2 95% 2L nc 10/22 22:15 RR 18, SpO2 94% 2L nc 10/23 01:16 RR 18 SpO2 99% 1L nc to 10/23 14:43 RR 18 SpO2 97% 1nc 10/23 18:30 RR 18 SpO2 96% room air to current 10/24 07:14 RR 19 SpO2 95% room air Treatment: 2l Oxygen nasal cannula After work up and study, please clarify which diagnosis is most appropriate? [ ] Acute Hypoxic Respiratory Failure ruled out [ ] Acute Hypoxic Respiratory Failure is a valid diagnosis as evidenced by the following: [ X] Respiratory Insufficiency [ ] Unable to determine [ ] Other, please specify (Template Last Revised: July 2023) MTDD
[2024-10-24 11:15] LABS: Glucose,Whole Blood 217 mg/dL (70-110)
[2024-10-24 11:21] LABS: Basophils # (A) 0.01 X 10*3/uL (0.00-0.10); Basophils % (A) 0.1 %; Eosinophils # (A) 0.01 X 10*3/uL (0.04-0.35); Eosinophils % (A) 0.1 %; HCT 32.6 % (39.6-50.0); HGB 10.2 g/dL (13.0-17.0); Lymphocytes # (A) 0.51 X 10*3/uL (0.90-5.00); Lymphocytes % (A) 5.1 %; MCH 28.3 pg (27.0-32.0); MCHC 31.3 g/dL (32.0-37.0); MCV 90.6 FL (80.0-97.0); Mean Platelet Volume 11.4 FL (9.5-12.2); Monocytes # (A) 0.66 X 10*3/uL (0.20-1.00); Monocytes % (A) 6.6 %; NRBC Per 100 WBC 0 X 10*3/uL (0.00-0.01); Neutrophils # (A) 8.74 X 10*3/uL (1.80-7.70); Neutrophils % (A) 87.4 %; Platelet Count 84 X 10*3/uL (140-440); RBC Morphology Normal (Normal); RDW 14.7 % (11.5-14.5)
--- NOTE | 2024-10-24 11:39 | P.PN ---
Subjective Patient is seen for follow-up for acute kidney injury and posttransplant care. Admitted to the hospital with fever and urinary symptoms. Currently being treated for UTI. Blood cultures are growing gram-negative bacilli. Urine culture is pending. Overall feeling slightly better Serum creatinine at 2.0 today Objective - Vital Signs Vital signs: Vital Signs Temp 99.1 F 10/24/24 07:14 Pulse 75 10/24/24 07:14 Resp 20 10/24/24 10:57 BP 171/87 10/24/24 07:14 Pulse Ox 95 10/24/24 07:14 FiO2 Intake & Output 10/23/24 10/24/24 10/24/24 18:59 06:59 18:59 Intake Total 1940 1620 Output Total 925 Balance 1940 695 Weight 90.718 kg 94 kg Intake: Intake, IV Titration 1400 Amount Meropenem 1 gm In Sodium 100 Chloride 0.9% 100 ml @ 33 .3 mls/hr IVPB Q8HR [place] Rx#:[id number] Sodium Chloride 0.9% 1, 1300 000 ml @ 130 mls/hr IV . Q7H42M [place] Rx#:[id number] Oral 540 1620 Output: Urine 925 Other: Voiding Method Indwelling Catheter Indwelling Catheter # Bowel Movements 1 1 - Exam Patient is awake, comfortable, alert oriented x 3 Examination of the heart S1 and S2 Examination of the lungs bilateral breath sounds are heard Abdomen is soft nontender Examination of lower extremities shows no evidence of edema CERTIFIED PHARMACY TECH exam grossly intact - Labs CBC & Chem 7: 10/24/24 04:26 10/24/24 04:26 Labs: Abnormal Lab Results - Last 24 Hours (Table) 10/23/24 10/23/24 10/23/24 Range/Units 09:23 12:16 16:56 WBC 13.2 H (3.8-10.6) k/uL RBC 3.74 L (4.30-5.90) m/uL Hgb 10.6 L (13.0-17.5) gm/dL Hct 34.4 L (39.0-53.0) % MCHC 30.8 L (31.0-37.0) g/dL RDW (11.5-14.5) % Plt Count 75 L (150-450) k/uL Immature Gran # (0.00-0.04) X 10*3/uL Neutrophils # 11.2 H (1.3-7.7) k/uL Lymphocytes # 0.9 L (1.0-4.8) k/uL Eosinophils # (0.04-0.35) X 10*3/uL Carbon Dioxide (21.6-31.8) mmol/L Anion Gap (4.00-12.00) mmol/L BUN (9.0-27.0) mg/dL Creatinine (0.6-1.5) mg/dL Est GFR (CKD-EPI) (>=60) BUN/Creatinine Ratio (12.00-20.00) Ratio Glucose (70-110) mg/dL POC Glucose (mg/dL) 128 H 354 H (70-110) mg/dL Calcium (8.7-10.3) mg/dL 10/23/24 10/24/24 10/24/24 Range/Units 20:56 04:26 04:26 WBC (3.8-10.6) k/uL RBC 3.60 L (4.30-5.90) m/uL Hgb 10.2 L (13.0-17.5) gm/dL Hct 32.6 L (39.0-53.0) % MCHC 31.3 L (31.0-37.0) g/dL RDW 14.7 H (11.5-14.5) % Plt Count 84 L (150-450) k/uL Immature Gran # 0.07 H (0.00-0.04) X 10*3/uL Neutrophils # 8.74 H (1.3-7.7) k/uL Lymphocytes # 0.51 L (1.0-4.8) k/uL Eosinophils # 0.01 L (0.04-0.35) X 10*3/uL Carbon Dioxide 18.6 L (21.6-31.8) mmol/L Anion Gap 12.40 H (4.00-12.00) mmol/L BUN 46.7 H (9.0-27.0) mg/dL Creatinine 2.0 H (0.6-1.5) mg/dL Est GFR (CKD-EPI) 33 L (>=60) BUN/Creatinine Ratio 23.35 H (12.00-20.00) Ratio Glucose 227 H (70-110) mg/dL POC Glucose (mg/dL) 238 H (70-110) mg/dL Calcium 7.4 L (8.7-10.3) mg/dL 10/24/24 10/24/24 Range/Units 06:44 11:11 WBC (3.8-10.6) k/uL RBC (4.30-5.90) m/uL Hgb (13.0-17.5) gm/dL Hct (39.0-53.0) % MCHC (31.0-37.0) g/dL RDW (11.5-14.5) % Plt Count (150-450) k/uL Immature Gran # (0.00-0.04) X 10*3/uL Neutrophils # (1.3-7.7) k/uL Lymphocytes # (1.0-4.8) k/uL Eosinophils # (0.04-0.35) X 10*3/uL Carbon Dioxide (21.6-31.8) mmol/L Anion Gap (4.00-12.00) mmol/L BUN (9.0-27.0) mg/dL Creatinine (0.6-1.5) mg/dL Est GFR (CKD-EPI) (>=60) BUN/Creatinine Ratio (12.00-20.00) Ratio Glucose (70-110) mg/dL POC Glucose (mg/dL) 241 H 217 H (70-110) mg/dL Calcium (8.7-10.3) mg/dL Assessment and Plan Assessment: 1. Acute kidney injury, ATN from hypotension and underlying infection, nonoliguric. Currently with Dubon catheter which was placed in the ER. No documentation of urine retention. UA suggestive of UTI 2. Sepsis with blood cultures growing gram-negative bacilli most likely urinary source 3. Status post donor transplant in 2002 maintained on Prograf CellCept and prednisone. 4. Hypotension from sepsis Plan: Continue with antibiotics Continue IV fluids, currently on IV bicarb Increased dose of prednisone and hold CellCept for now. Continue with Prograf Follow-up on Prograf level Continue with oral sodium bicarb Repeat labs in a.m.
--- NOTE | 2024-10-24 15:07 | P.PN ---
Subjective Progress Note Date: 10/24/24 Principal diagnosis: Reason for follow-up is sepsis and bacteremia Patient is a 84-year-old male with a past medical history significant for Atrial Fibrillation, Blood Disorder, Cancer, Diabetes Mellitus, Hearing Disorder / Deafness, Hyperlipidemia, Hypertension, Osteoarthritis (OA), Pneumonia, Prostate Disorder, Renal Disease, Thyroid Disorder, end-stage renal disease status post renal transplant 22 years ago presenting to the ER for evaluation of weakness, patient was noticed to be septic from urinary source prompted this consultation. Blood culture subsequently came back positive for ESBL E. coli. On today's evaluation that is 10/24/2024,the patient remains to be afebrile, patient is on room air not requiring supplemental oxygen and denies any shortness of breath no chest pain or cough.Patient denies having any nausea or vomiting, no abdominal pain and no diarrhea has been reported. Patient white count is 10,000, creatinine is 2.0, renal ultrasound pelvic transplant kidney no hydronephrosis atrophic [place] kidneys Objective - Vital Signs Vital signs: Vital Signs Temp 99.1 F 10/24/24 07:14 Pulse 75 10/24/24 07:14 Resp 20 10/24/24 10:57 BP 171/87 10/24/24 07:14 Pulse Ox 95 10/24/24 07:14 FiO2 Intake & Output 10/23/24 10/24/24 10/24/24 18:59 06:59 18:59 Intake Total 1940 1620 Output Total 925 Balance 1940 695 Weight 90.718 kg 94 kg Intake: Intake, IV Titration 1400 Amount Meropenem 1 gm In Sodium 100 Chloride 0.9% 100 ml @ 33 .3 mls/hr IVPB Q8HR [place] Rx#:[id number] Sodium Chloride 0.9% 1, 1300 000 ml @ 130 mls/hr IV . Q7H42M [place] Rx#:[id number] Oral 540 1620 Output: Urine 925 Other: Voiding Method Indwelling Catheter Indwelling Catheter # Bowel Movements 1 1 - Exam GENERAL DESCRIPTION: An elderly male lying in bed in no distress RESPIRATORY SYSTEM: Unlabored breathing , decreased breath sounds at bases HEART: S1 S2 regular rate and rhythm , ABDOMEN: Soft , no tenderness EXTREMITIES: No edema feet - Labs CBC & Chem 7: 10/24/24 04:26 10/24/24 04:26 Labs: Abnormal Lab Results - Last 24 Hours (Table) 10/23/24 10/23/24 10/24/24 Range/Units 16:56 20:56 04:26 RBC (4.40-5.60) X 10*6/uL Hgb (13.0-17.0) g/dL Hct (39.6-50.0) % MCHC (32.0-37.0) g/dL RDW (11.5-14.5) % Plt Count (140-440) X 10*3/uL Immature Gran # (0.00-0.04) X 10*3/uL Neutrophils # (1.80-7.70) X 10*3/uL Lymphocytes # (0.90-5.00) X 10*3/uL Eosinophils # (0.04-0.35) X 10*3/uL Carbon Dioxide 18.6 L (21.6-31.8) mmol/L Anion Gap 12.40 H (4.00-12.00) mmol/L BUN 46.7 H (9.0-27.0) mg/dL Creatinine 2.0 H (0.6-1.5) mg/dL Est GFR (CKD-EPI) 33 L (>=60) BUN/Creatinine Ratio 23.35 H (12.00-20.00) Ratio Glucose 227 H (70-110) mg/dL POC Glucose (mg/dL) 354 H 238 H (70-110) mg/dL Calcium 7.4 L (8.7-10.3) mg/dL 10/24/24 10/24/24 10/24/24 Range/Units 04:26 06:44 11:11 RBC 3.60 L (4.40-5.60) X 10*6/uL Hgb 10.2 L (13.0-17.0) g/dL Hct 32.6 L (39.6-50.0) % MCHC 31.3 L (32.0-37.0) g/dL RDW 14.7 H (11.5-14.5) % Plt Count 84 L (140-440) X 10*3/uL Immature Gran # 0.07 H (0.00-0.04) X 10*3/uL Neutrophils # 8.74 H (1.80-7.70) X 10*3/uL Lymphocytes # 0.51 L (0.90-5.00) X 10*3/uL Eosinophils # 0.01 L (0.04-0.35) X 10*3/uL Carbon Dioxide (21.6-31.8) mmol/L Anion Gap (4.00-12.00) mmol/L BUN (9.0-27.0) mg/dL Creatinine (0.6-1.5) mg/dL Est GFR (CKD-EPI) (>=60) BUN/Creatinine Ratio (12.00-20.00) Ratio Glucose (70-110) mg/dL POC Glucose (mg/dL) 241 H 217 H (70-110) mg/dL Calcium (8.7-10.3) mg/dL Microbiology - Last 24 Hours (Table) 10/22/24 08:52 Blood Culture Gram Stain - Preliminary Blood Blood Culture - Preliminary Gram Neg Bacilli Molecular ID Assessment and Plan (1) Infection due to ESBL-producing Escherichia coli Current Visit: Yes Status: Acute Code(s): A49.8 - OTHER BACTERIAL INFECTIONS OF UNSPECIFIED SITE; Z16.12 - EXTENDED SPECTRUM BETA LACTAMASE (ESBL) RESISTANCE SNOMED Code(s): 108219376 (2) Sepsis Current Visit: Yes Status: Acute Code(s): A41.9 - SEPSIS, UNSPECIFIED ORGAN ISM SNOMED Code(s): 99639472 (3) UTI (urinary tract infection) Current Visit: Yes Status: Acute Code(s): N39.0 - URINARY TRACT INFECTION, SITE NOT SPECIFIED SNOMED Code(s): 05664652 (4) Bacteremia Current Visit: Yes Status: Acute Code(s): R78.81 - BACTEREMIA SNOMED Code(s): 5221085 Plan: 1patient presented to hospital with sepsis in this patient who did have fever tachycardia elevated white count elevated lactic acid meeting currently for SIRS/sepsis source is likely urinary in this patient who did have a 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 coli treated with oral antibiotic more likely dealing with the same pathogen. 2history of renal transplant on immunosuppressive 3patient did have a ESBL E. coli bacteremia source is likely UTI, ultrasound negative for any obstructive uropathy 4patient currently being treated meropenem 1 g every 8 hours however plan will be for midline and Invanz on discharge this was discussed in detail with the patient and his Dictation was produced using [employer] dictation software. please excuse any grammatical, word or spelling errors. Time with Patient: Less than 30
--- NOTE | 2024-10-24 15:38 | P.PN ---
Subjective Progress Note Date: 10/24/24 H&P Date: 10/23/24 This Is a 84-year-old gentleman with chronic kidney disease, solitary kidney, renal transplant ,ESBL E. coli UTI and multiple other medical issues presented to the ER with UTI with ESBL E. coli failed outpatient treatment with nitrofuradanton.discloses progressive dysuria, urinary frequency, nausea, vomiting, generalized weakness with recent fall. Reports he fell forward into his bed related to generalized weakness, denies head/neck or extremity trauma. Denies syncope. Denies lightheadedness dizziness or headache or focal deficits. denies abdominal pain. Reports mild occasional cough. on admission temperature 104.7,WBC of 16.3 and lactic acid of 3.8. Tmax 104.7, WBC 16.3, hemoglobin 13.2, platelets 92, sodium 132, potassium 4.6, bicarb 19, BUN 35, creatinine 1.89, glucose 234, lactic acid 3.8, 1.3 T. bili 1.6, albumin 3.2; current labs pending. UA reported large blood, negative nitrates, large leukocytes, greater than 182 RBCs and WBCs, many WBC clumps, occasional bacteria and 33 hyaline cast. Viral studies negative. Chest x-ray reported no acute cardiopulmonary disease/process. Initially received ceftriaxone,Invanz yesterday .preliminary blood culture reported molecular ID,CTX-.M., E. coli. Antibiotics adjusted to Merrem as per ID. 10/24/2024 maintained on IV fluid resuscitation, hypertensive this morning. Orts did not sleep well. Maintained on IV antibiotics as per infectious disease for UTI, culture pending and gram-negative molecular DC and preliminary blood cultures. Afebrile, Tmax 99.1. WBC has normalized, 10. Hemoglobin 10.2, platelets 84, sodium 135, potassium 4.5, bicarb 18.6, BUN 46.7, creatinine 2. Positive diet intake, denies nausea vomiting or diarrhea. Denies abdominal p ain. Hyperglycemic, blood sugars in the low 200s, hemoglobin A1c 5.1.. 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 Bicarb drip initiated as per nephrology Objective - Vital Signs Vital signs: Vital Signs Temp 97.9 F 10/24/24 13:24 Pulse 73 10/24/24 13:24 Resp 20 10/24/24 13:24 BP 163/87 10/24/24 13:24 Pulse Ox 94 L 10/24/24 13:24 FiO2 Intake & Output 10/23/24 10/24/24 10/24/24 18:59 06:59 18:59 Intake Total 194 1620 Output Total 925 Balance 1940 695 Weight 90.718 kg 94 kg Intake: Intake, IV Titration 1400 Amount Meropenem 1 gm In Sodium 100 Chloride 0.9% 100 ml @ 33 .3 mls/hr IVPB Q8HR [place] Rx#:[id number] Sodium Chloride 0.9% 1, 1300 000 ml @ 130 mls/hr IV . Q7H42M [place] Rx#:[id number] Oral 540 1620 Output: Urine 925 Other: Voiding Method Indwelling Catheter Indwelling Catheter # Bowel Movements 1 1 - Exam VITAL SIGNS: Reviewed GENERAL: [place],Alert and oriented 3, Sitting up in bed, no acute distress HEENT: Normocephalic, Conjunctivae normal. eyes normal.MMM. NECK: Supple, No JVD. CARDIOVASCULAR: S1, S2 regular.systolic murmur RESPIRATION: Unlabored, equal air entry, breath sounds diminished in the bases. ABDOMEN: Soft, nontender . No guarding. no masses palpable. +BS LEGS: No edema. no swelling. NERVOUS SYSTEM: Cranial N 2-12 grossly normal. No focal deficits. Strength and sensation grossly intact. Skin: Warm and dry, no rash - Labs CBC & Chem 7: 10/24/24 04:26 10/25/24 10:17 Labs: Abnormal Lab Results - Last 24 Hours (Table) 10/23/24 10/23/24 10/24/24 Range/Units 16:56 20:56 04:26 RBC (4.40-5.60) X 10*6/uL Hgb (13.0-17.0) g/dL Hct (39.6-50.0) % MCHC (32.0-37.0) g/dL RDW (11.5-14.5) % Plt Count (140-440) X 10*3/uL Immature Gran # (0.00-0.04) X 10*3/uL Neutrophils # (1.80-7.70) X 10*3/uL Lymphocytes # (0.90-5.00) X 10*3/uL Eosinophils # (0.04-0.35) X 10*3/uL Carbon Dioxide 18.6 L (21.6-31.8) mmol/L Anion Gap 12.40 H (4.00-12.00) mmol/L BUN 46.7 H (9.0-27.0) mg/dL Creatinine 2.0 H (0.6-1.5) mg/dL Est GFR (CKD-EPI) 33 L (>=60) BUN/Creatinine Ratio 23.35 H (12.00-20.00) Ratio Glucose 227 H (70-110) mg/dL POC Glucose (mg/dL) 354 H 238 H (70-110) mg/dL Calcium 7.4 L (8.7-10.3) mg/dL 10/24/24 10/24/24 10/24/24 Range/Units 04:26 06:44 11:11 RBC 3.60 L (4.40-5.60) X 10*6/uL Hgb 10.2 L (13.0-17.0) g/dL Hct 32.6 L (39.6-50.0) % MCHC 31.3 L (32.0-37.0) g/dL RDW 14.7 H (11.5-14.5) % Plt Count 84 L (140-440) X 10*3/uL Immature Gran # 0.07 H (0.00-0.04) X 10*3/uL Neutrophils # 8.74 H (1.80-7.70) X 10*3/uL Lymphocytes # 0.51 L (0.90-5.00) X 10*3/uL Eosinophils # 0.01 L (0.04-0.35) X 10*3/uL Carbon Dioxide (21.6-31.8) mmol/L Anion Gap (4.00-12.00) mmol/L BUN (9.0-27.0) mg/dL Creatinine (0.6-1.5) mg/dL Est GFR (CKD-EPI) (>=60) BUN/Creatinine Ratio (12.00-20.00) Ratio Glucose (70-110) mg/dL POC Glucose (mg/dL) 241 H 217 H (70-110) mg/dL Calcium (8.7-10.3) mg/dL Microbiology - Last 24 Hours (Table) 10/22/24 08:52 Blood Culture Gram Stain - Preliminary Blood Blood Culture - Preliminary Gram Neg Bacilli Molecular ID Assessment and Plan Assessment: Acute sepsis secondary to acute bacteremia ESBL E. coli suspect related to acute UTI with ESBL E. coli, failed outpatient treatment with nitrofurantoin, in a patient with history of previous ESBL E. coli , Morganella morganii UTIs. Renal ultrasound reported negative for obstructive uropathy. Acute bacteremia,molecular ID,CTX-.M., E. coli,suspect r/t acute UTI Acute leukocytosis secondary to the above Acute thrombocytopenia Acute renal failure secondary to infection Acute hyponatremia, mild Lactic acidosis Acute hypoxic respiratory failure secondary to all the above, resolved Generalized weakness secondary to all the above, status post recent fall Hypoalbuminemia, moderate protein calorie malnutrition Renal transplant on chronic immunosuppression, Prograf, CellCept and prednisone Chronic renal failure stage IIIA, history of renal transplant, baseline creatinine 1.2-1.4. 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 Craig Depression Anxiety Obesity, BMI 30 Plan: Continue on current medication regime ,monitoring and symptomatic treatment. IV fluids as per nephrology.IV antibiotics of Merrem as per ID. IV antibiotics at DC as per ID. PT/OT. The impression and plan of care has been dictated as directed. : I performed a history and examination of this patient, discussed the same with the dictator. I agree with the dictator's note ,documented as a scribe. Any additional findings or plans will be noted.
[2024-10-24] MEDS: DEXTROSE 5% IN WATER 1,000 ML with SODIUM BICARB (1 MEQ/ML) 150 ML IV SCH (16:07)
[2024-10-24 16:37] LABS: Glucose,Whole Blood 343 mg/dL (70-110)
[2024-10-24] MEDS: INSULIN GLARGINE (LANTUS) 100 UNIT/ML SYR SQ SCH (17:31)
[2024-10-24 20:31] LABS: Glucose,Whole Blood 354 mg/dL (70-110)
[2024-10-24] MEDS: MELATONIN 5 MG TABLET PO SCH (20:48)
[2024-10-25 06:18] LABS: Glucose,Whole Blood 142 mg/dL (70-110)
[2024-10-25 10:53] LABS: African American GFR (CKD) 47 (>60 ml/min/1.73 sqM); Anion Gap 5 mmol/L; Blood Urea Nitrogen 44 mg/dL (9-20); Calcium 8.1 mg/dL (8.4-10.2); Carbon Dioxide 26 mmol/L (22-30); Chloride 107 mmol/L (98-107); Glucose 171 mg/dL (74-99); Non-African American GFR(CKD) 41 (>60 ml/min/1.73 sqM); Potassium 4.2 mmol/L (3.5-5.1); Sodium 138 mmol/L (137-145)
[2024-10-25 11:24] LABS: Glucose,Whole Blood 152 mg/dL (70-110)
--- NOTE | 2024-10-25 13:24 | P.PN ---
Subjective Progress Note Date: 10/25/24 H&P Date: 10/23/24 This Is a 84-year-old gentleman with chronic kidney disease, solitary kidney, renal transplant ,ESBL E. coli UTI and multiple other medical issues presented to the ER with UTI with ESBL E. coli failed outpatient treatment with nitrofuradanton.discloses progressive dysuria, urinary frequency, nausea, vomiting, generalized weakness with recent fall. Reports he fell forward into his bed related to generalized weakness, denies head/neck or extremity trauma. Denies syncope. Denies lightheadedness dizziness or headache or focal deficits. denies abdominal pain. Reports mild occasional cough. on admission temperature 104.7,WBC of 16.3 and lactic acid of 3.8. Tmax 104.7, WBC 16.3, hemoglobin 13.2, platelets 92, sodium 132, potassium 4.6, bicarb 19, BUN 35, creatinine 1.89, glucose 234, lactic acid 3.8, 1.3 T. bili 1.6, albumin 3.2; current labs pending. UA reported large blood, negative nitrates, large leukocytes, greater than 182 RBCs and WBCs, many WBC clumps, occasional bacteria and 33 hyaline cast. Viral studies negative. Chest x-ray reported no acute cardiopulmonary disease/process. Initially received ceftriaxone,Invanz yesterday .preliminary blood culture reported molecular ID,CTX-.M., E. coli. Antibiotics adjusted to Merrem as per ID. 10/24/2024 maintained on IV fluid resuscitation, hypertensive this morning. Orts did not sleep well. Maintained on IV antibiotics as per infectious disease for UTI, culture pending and gram-negative molecular DC and preliminary blood cultures. Afebrile, Tmax 99.1. WBC has normalized, 10. Hemoglobin 10.2, platelets 84, sodium 135, potassium 4.5, bicarb 18.6, BUN 46.7, creatinine 2. Positive diet intake, denies nausea vomiting or diarrhea. Denies abdominal p ain. Hyperglycemic, blood sugars in the low 200s, hemoglobin A1c 5.1.. Renal ultrasound reported atrophic [place] kidneys, Pelvic transplant kidney without evidence for hydronephrosis, simple appearing pelvic transplant cyst. Bicarb drip initiated as per nephrology 10/25/2024 hypertensive, blood pressure 182/100. Maintain on bicarb drip. Renal function improving, bicarb 26 ,BUN 44, creatinine 1.56. Continues on Merrem ,repeat preliminary blood culture reporting no growth after 24 hours. Afebrile. Discloses that he had some mild confusion during the night, which has subsided. Objective - Vital Signs Vital signs: Vital Signs Temp 97.6 F 10/25/24 07:40 Pulse 71 10/25/24 07:40 Resp 20 10/25/24 10:52 BP 182/100 10/25/24 07:40 Pulse Ox 94 L 10/25/24 07:40 FiO2 Intake & Output 10/24/24 10/25/24 10/25/24 18:59 06:59 18:59 Intake Total 1870 Output Total 1650 1375 300 Balance 220 -1375 -300 Weight 93 kg Intake: Oral 1870 Output: Urine 1650 1375 300 Other: Voiding Method Indwelling Catheter Indwelling Catheter Indwelling Catheter # Voids 1 # Bowel Movements 1 - Exam VITAL SIGNS: Reviewed GENERAL: [place],Alert and oriented 3, Sitting up in bed, no acute distress HEENT: Normocephalic, Conjunctivae normal. eyes normal.MMM. NECK: Supple, No JVD. CARDIOVASCULAR: S1, S2 regular.systolic murmur RESPIRATION: Unlabored, equal air entry, expiratory wheezing , bilateral bases diminished. ABDOMEN: Soft, nontender . No guarding. no masses palpable. +BS LEGS: No edema. no swelling. NERVOUS SYSTEM: Cranial N 2-12 grossly normal. No focal deficits. Strength and sensation grossly intact. Skin: Warm and dry, no rash Microbiology 10/24/24 04:26 Blood Blood Culture - Preliminary 10/22/24 08:52 Blood Blood Culture Gram Stain - Final 10/22/24 08:52 Blood Blood Culture - Final Escherichia coli ESBL Molecular ID - Labs CBC & Chem 7: 10/24/24 04:26 10/25/24 10:17 Labs: Abnormal Lab Results - Last 24 Hours (Table) 10/24/24 10/24/24 10/25/24 Range/Units 16:35 20:30 06:17 BUN (9-20) mg/dL Creatinine (0.66-1.25) mg/dL Glucose (74-99) mg/dL POC Glucose (mg/dL) 343 H 354 H 142 H (70-110) mg/dL Calcium (8.4-10.2) mg/dL 10/25/24 10/25/24 Range/Units 10:17 11:22 BUN 44 H (9-20) mg/dL Creatinine 1.56 H (0.66-1.25) mg/dL Glucose 171 H (74-99) mg/dL POC Glucose (mg/dL) 152 H (70-110) mg/dL Calcium 8.1 L (8.4-10.2) mg/dL Microbiology - Last 24 Hours (Table) 10/24/24 04:26 Blood Culture - Preliminary Blood 10/22/24 08:52 Blood Culture Gram Stain - Final Blood Blood Culture - Final Escherichia coli ESBL Molecular ID Assessment and Plan Assessment: Acute sepsis secondary to acute bacteremia gram neg and acute UTI with ESBL E. coli, failed outpatient treatment with nitrofurantoin, in a patient with history of previous ESBL E. coli , Morganella morganii UTIs. Acute bacteremia,molecular ID, E. coli ESBL ,suspect r/t acute UTI, preliminary repeat blood cultures reporting no growth in 24 hours. Acute mild delirium at night, acute metabolic encephalopathy, multifactorial, secondary to all the above, hospital environment. Acute leukocytosis secondary to the above, resolved Acute thrombocytopenia Acute renal failure secondary to infection Acute hyponatremia, mild Lactic acidosis Acute hypoxic respiratory failure secondary to all the above Generalized weakness secondary to all the above, status post recent fall Hypoalbuminemia, moderate protein calorie malnutrition Renal transplant on chronic immunosuppression, Prograf, CellCept and prednisone Chronic renal failure stage IIIA, history of renal transplant, baseline creatinine 1.2-1.4. 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 Craig Depression Anxiety Obesity, BMI 30 Plan: Continue on current medication regime ,monitoring and symptomatic treatment. Hypertensive ,Hydralazine. IV fluids as per nephrology.IV antibiotics of Merrem as per ID. The impression and plan of care has been dictated as directed. : I performed a history and examination of this patient, discussed the same with the dictator. I agree with the dictator's note ,documented as a scribe. Any additional findings or plans will be noted.
[2024-10-25] MEDS: hydrALAZINE HCL 50 MG TAB PO PRN (13:26)
--- NOTE | 2024-10-25 15:52 | P.PN ---
Subjective Patient is seen for follow-up for acute kidney injury and posttransplant care. Admitted to the hospital with fever and urinary symptoms. Currently being treated for UTI. Blood cultures are growing E. coli. Urine culture is pending. Overall feeling slightly better Serum creatinine decreased to 1.5 today Objective - Vital Signs Vital signs: Vital Signs Temp 98 F 10/25/24 13:23 Pulse 79 10/25/24 13:23 Resp 18 10/25/24 13:59 BP 135/79 10/25/24 14:29 Pulse Ox 98 10/25/24 13:23 FiO2 Intake & Output 10/24/24 10/25/24 10/25/24 18:59 06:59 18:59 Intake Total 1870 300 Output Total 1650 1375 300 Balance 220 -1375 0 Weight 93 kg Intake: Oral 1870 300 Output: Urine 1650 1375 300 Other: Voiding Method Indwelling Catheter Indwelling Catheter Indwelling Catheter # Voids 1 # Bowel Movements 1 - Exam Patient is awake, comfortable, alert oriented x 3 Examination of the heart S1 and S2 Examination of the lungs bilateral breath sounds are heard Abdomen is soft nontender Examination of lower extremities shows no evidence of edema [facility] exam grossly intact - Labs CBC & Chem 7: 10/24/24 04:26 10/25/24 10:17 Labs: Abnormal Lab Results - Last 24 Hours (Table) 10/24/24 10/24/24 10/25/24 Range/Units 16:35 20:30 06:17 BUN (9-20) mg/dL Creatinine (0.66-1.25) mg/dL Glucose (74-99) mg/dL POC Glucose (mg/dL) 343 H 354 H 142 H (70-110) mg/dL Calcium (8.4-10.2) mg/dL 10/25/24 10/25/24 Range/Units 10:17 11:22 BUN 44 H (9-20) mg/dL Creatinine 1.56 H (0.66-1.25) mg/dL Glucose 171 H (74-99) mg/dL POC Glucose (mg/dL) 152 H (70-110) mg/dL Calcium 8.1 L (8.4-10.2) mg/dL Microbiology - Last 24 Hours (Table) 10/24/24 04:26 Blood Culture - Preliminary Blood 10/22/24 08:52 Blood Culture Gram Stain - Final Blood Blood Culture - Final Escherichia coli ESBL Molecular ID Assessment and Plan Assessment: 1. Acute kidney injury, ATN from hypotension and underlying infection, nonoliguric. Currently with Dubon catheter which was placed in the ER. No documentation of urine retention. UA suggestive of UTI 2. Sepsis with blood cultures growing gram-negative bacilli most likely urinary source 3. Status post donor transplant in 2002 maintained on Prograf, CellCept and prednisone. CellCept on hold, can resume next week. Tacrolimus level came back at 8. Dose will be decreased slightly. 4. Hypotension from sepsis, improved Plan: Continue with antibiotics Continue IV fluids DC bicarb drip. Increased dose of prednisone CellCept on hold, it can be restarted next week. Decrease dose of Prograf slightly as level was 8 Continue with oral sodium bicarb Repeat labs in a.m.
--- NOTE | 2024-10-25 15:59 | P.PN ---
Subjective Progress Note Date: 10/25/24 Principal diagnosis: Reason for follow-up is sepsis and bacteremia Patient is a 84-year-old male with a past medical history significant for Atrial Fibrillation, Blood Disorder, Cancer, Diabetes Mellitus, Hearing Disorder / Deafness, Hyperlipidemia, Hypertension, Osteoarthritis (OA), Pneumonia, Prostate Disorder, Renal Disease, Thyroid Disorder, end-stage renal disease status post renal transplant 22 years ago presenting to the ER for evaluation of weakness, patient was noticed to be septic from urinary source prompted this consultation. Blood culture subsequently came back positive for ESBL E. coli. On today's evaluation that is 10/25/2024, the patient continues to be afebrile, the patient is on room air and breathing comfortably, the Pt denies having any c hest pain or cough, the patient denies having any abdominal pain no vomiting or any diarrhea. Patient did have a creatinine 1.56 because repeat has been negative so far Objective - Vital Signs Vital signs: Vital Signs Temp 97.6 F 10/25/24 07:40 Pulse 71 10/25/24 07:40 Resp 20 10/25/24 10:52 BP 182/100 10/25/24 07:40 Pulse Ox 94 L 10/25/24 07:40 FiO2 Intake & Output 10/24/24 10/25/24 10/25/24 18:59 06:59 18:59 Intake Total 1870 Output Total 1650 1375 300 Balance 220 -1375 -300 Weight 93 kg Intake: Oral 1870 Output: Urine 1650 1375 300 Other: Voiding Method Indwelling Catheter Indwelling Catheter Indwelling Catheter # Voids 1 # Bowel Movements 1 - Exam GENERAL DESCRIPTION: An elderly male lying in bed in no distress RESPIRATORY SYSTEM: Unlabored breathing , decreased breath sounds at bases HEART: S1 S2 regular rate and rhythm , ABDOMEN: Soft , no tenderness EXTREMITIES: No edema feet - Labs CBC & Chem 7: 10/24/24 04:26 10/25/24 10:17 Labs: Abnormal Lab Results - Last 24 Hours (Table) 10/24/24 10/24/24 10/25/24 Range/Units 16:35 20:30 06:17 BUN (9-20) mg/dL Creatinine (0.66-1.25) mg/dL Glucose (74-99) mg/dL POC Glucose (mg/dL) 343 H 354 H 142 H (70-110) mg/dL Calcium (8.4-10.2) mg/dL 10/25/24 10/25/24 Range/Units 10:17 11:22 BUN 44 H (9-20) mg/dL Creatinine 1.56 H (0.66-1.25) mg/dL Glucose 171 H (74-99) mg/dL POC Glucose (mg/dL) 152 H (70-110) mg/dL Calcium 8.1 L (8.4-10.2) mg/dL Microbiology - Last 24 Hours (Table) 10/24/24 04:26 Blood Culture - Preliminary Blood 10/22/24 08:52 Blood Culture Gram Stain - Final Blood Blood Culture - Final Escherichia coli ESBL Molecular ID Assessment and Plan (1) Infection due to ESBL-producing Escherichia coli Current Visit: Yes Status: Acute Code(s): A49.8 - OTHER BACTERIAL INFECTIONS OF UNSPECIFIED SITE; Z16.12 - EXTENDED SPECTRUM BETA LACTAMASE (ESBL) RESISTANCE SNOMED Code(s): 044870764 (2) Sepsis Current Visit: Yes Status: Acute Code(s): A41.9 - SEPSIS, UNSPECIFIED ORGANISM SNOMED Code(s): 94848429 (3) UTI (urinary tract infection) Current Visit: Yes Status: Acute Code(s): N39.0 - URINARY TRACT INFECTION, SITE NOT SPECIFIED SNOMED Code(s): 58320203 (4) Bacteremia Current Visit: Yes Status: Acute Code(s): R78.81 - BACTEREMIA SNOMED Code(s): 7522601 Plan: 1patient presented to hospital with sepsis in this patient who did have fever tachycardia elevated white count elevated lactic acid meeting currently for SIRS/sepsis source is likely urinary in this patient who did have a 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 coli treated with oral antibiotic more likely dealing with the same pathogen. 2history of renal transplant on immunosuppressive 3patient did have a ESBL E. coli bacteremia source is likely UTI, ultrasound negative for any obstructive uropathy 4patient blood culture repeat has been negative so far currently being treated meropenem 1 g every 8 hours with the finish therapy with IV Invanz on discharge, once cleared for discharge from other regional engagement consultant Dictation was produced using [employer] dictation software. please excuse any grammatical, word or spelling errors. Time with Patient: Less than 30
[2024-10-25 16:30] LABS: Glucose,Whole Blood 316 mg/dL (70-110)
[2024-10-25] MEDS: SODIUM CHLORIDE 0.9% 1,000 ML IV SCH (17:16)
[2024-10-25 21:09] LABS: Glucose,Whole Blood 143 mg/dL (70-110)
[2024-10-26 06:44] LABS: Glucose,Whole Blood 110 mg/dL (70-110)
[2024-10-26 09:43] LABS: Basophils # (A) 0.05 X 10*3/uL (0.00-0.10); Basophils % (A) 0.7 %; Eosinophils # (A) 0.09 X 10*3/uL (0.04-0.35); Eosinophils % (A) 1.2 %; HCT 33.6 % (39.6-50.0); HGB 10.9 g/dL (13.0-17.0); Lymphocytes % (A) 13.3 %; MCH 28.8 pg (27.0-32.0); MCHC 32.4 g/dL (32.0-37.0); MCV 88.9 FL (80.0-97.0); Mean Platelet Volume 10.4 FL (9.5-12.2); Monocytes # (A) 0.73 X 10*3/uL (0.20-1.00); Monocytes % (A) 9.7 %; NRBC Per 100 WBC 0 X 10*3/uL (0.00-0.01); Neutrophils # (A) 5.57 X 10*3/uL (1.80-7.70); Neutrophils % (A) 74.2 %; Platelet Count 116 X 10*3/uL (140-440); RBC 3.78 X 10*6/uL (4.40-5.60); RDW 14.6 % (11.5-14.5); WBC 7.51 X 10*3/uL (4.50-10.00)
[2024-10-26 10:25] LABS: BUN/Creat Ratio 25.08 Ratio (12.00-20.00); Blood Urea Nitrogen 32.6 mg/dL (9.0-27.0); Calcium 7.9 mg/dL (8.7-10.3); Chloride 108 mmol/L (96-109); Glucose 108 mg/dL (70-110); Potassium 4.1 mmol/L (3.5-5.5); Sodium 144 mmol/L (135-145)
--- NOTE | 2024-10-26 12:03 | P.PN ---
Subjective Assessment: 1. Acute allograft dysfunction 2. Secondary to ATN secondary to severe sepsis. Creatinine peaked at 2.16 this admission and is 1.3 today. Kidney ultrasound showed no hydronephrosis of the transplant kidney. Status post donor renal allograft in 2002. 3. 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 4. Severe sepsis secondary to E. coli bacteremia on antibiotics. 5. Diabetes mellitus. 6. Metabolic acidosis secondary to acute kidney injury status post IV bicarb. Improved. Plan: Maintain gentle IV hydration. Tacrolimus level 8.0 dated October 24, 2024. Continue to hold CellCept for now. Maintain tacrolimus and increased dose of prednisone. Objective - Vital Signs Vital signs: Vital Signs Temp 98.4 F 10/26/24 07:05 Pulse 63 10/26/24 07:05 Resp 18 10/26/24 07:05 BP 166/80 10/26/24 07:05 Pulse Ox 95 10/26/24 07:05 FiO2 Intake & Output 10/25/24 10/26/24 10/26/24 18:59 06:59 18:59 Intake Total 600 120 Output Total 750 Balance -150 120 Weight 92 kg Intake: Oral 600 120 Output: Urine 750 Other: Voiding Method Indwelling Catheter Indwelling Catheter - Labs CBC & Chem 7: 10/26/24 06:11 10/26/24 06:11 Labs: Abnormal Lab Results - Last 24 Hours (Table) 10/25/24 10/25/24 10/26/24 Range/Units 16:28 21:08 06:11 RBC (4.40-5.60) X 10*6/uL Hgb (13.0-17.0) g/dL Hct (39.6-50.0) % RDW (11.5-14.5) % Plt Count (140-440) X 10*3/uL Immature Gran # (0.00-0.04) X 10*3/uL BUN 32.6 H (9.0-27.0) mg/dL Est GFR (CKD-EPI) 55 L (>=60) BUN/Creatinine Ratio 25.08 H (12.00-20.00) Ratio POC Glucose (mg/dL) 316 H 143 H (70-110) mg/dL Calcium 7.9 L (8.7-10.3) mg/dL 10/26/24 Range/Units 06:11 RBC 3.78 L (4.40-5.60) X 10*6/uL Hgb 10.9 L (13.0-17.0) g/dL Hct 33.6 L (39.6-50.0) % RDW 14.6 H (11.5-14.5) % Plt Count 116 L (140-440) X 10*3/uL Immature Gran # 0.07 H (0.00-0.04) X 10*3/uL BUN (9.0-27.0) mg/dL Est GFR (CKD-EPI) (>=60) BUN/Creatinine Ratio (12.00-20.00) Ratio POC Glucose (mg/dL) (70-110) mg/dL Calcium (8.7-10.3) mg/dL Microbiology - Last 24 Hours (Table) 10/24/24 04:26 Blood Culture - Preliminary Blood 10/22/24 08:52 Blood Culture Gram Stain - Final Blood Blood Culture - Final Escherichia coli ESBL Molecular ID
[2024-10-26 12:20] LABS: Glucose,Whole Blood 120 mg/dL (70-110)
--- NOTE | 2024-10-26 14:51 | P.PN ---
Subjective Progress Note Date: 10/26/24 This Is a 84-year-old gentleman with chronic kidney disease, solitary kidney, renal transplant ,ESBL E. coli UTI and multiple other medical issues presented to the ER with UTI with ESBL E. coli failed outpatient treatment with nitrofuradanton.discloses progressive dysuria, urinary frequency, nausea, vomit ing, generalized weakness with recent fall. Reports he fell forward into his bed related to generalized weakness, denies head/neck or extremity trauma. Denies syncope. Denies lightheadedness dizziness or headache or focal deficits. denies abdominal pain. Reports mild occasional cough. on admission temperature 104.7,WBC of 16.3 and lactic acid of 3.8. Tmax 104.7, WBC 16.3, hemoglobin 13.2, platelets 92, sodium 132, potassium 4.6, bicarb 19, BUN 35, creatinine 1.89, glucose 234, lactic acid 3.8, 1.3 T. bili 1.6, albumin 3.2; current labs pending. UA reported large blood, negative nitrates, large leukocytes, greater than 182 RBCs and WBCs, many WBC clumps, occasional bacteria and 33 hyaline cast. Viral studies negative. Chest x-ray reported no acute cardiopulmonary disease/process. Initially received ceftriaxone,Invanz yesterday .preliminary blood culture reported molecular ID,CTX-.M., E. coli. Antibiotics adjusted to Merrem as per ID. 10/24/2024 maintained on IV fluid resuscitation, hypertensive this morning. Orts did not sleep well. Maintained on IV antibiotics as per infectious disease for UTI, culture pending and gram-negative molecular DC and preliminary blood cultures. Afebrile, Tmax 99.1. WBC has normalized, 10. Hemoglobin 10.2, p latelets 84, sodium 135, potassium 4.5, bicarb 18.6, BUN 46.7, creatinine 2. Positive diet intake, denies nausea vomiting or diarrhea. Denies abdominal pain. Hyperglycemic, blood sugars in the low 200s, hemoglobin A1c 5.1.. Renal ultrasound reported atrophic [place] kidneys, Pelvic transplant kidney without evidence for hydronephrosis, simple appearing pelvic transplant cyst. Bicarb drip initiated as per nephrology 10/25/2024 hypertensive, blood pressure 182/100. Maintain on bicarb drip. Renal function improving, bicarb 26 ,BUN 44, creatinine 1.56. Continues on Merrem ,repeat preliminary blood culture reporting no growth after 24 hours. Afebrile. Discloses that he had some mild confusion during the night, which has subsided. 4/5. Patient seen and examined. Currently undergoing dialysis. No acute issue overnight. Denies any chest pain or shortness of breath REVIEW OF SYSTEMS: CONSTITUTIONAL: No fever, no malaise,. CARDIOVASCULAR: No chest pain, no palpitations, no syncope. PULMONARY: No shortness of breath, no cough, GASTROINTESTINAL: No diarrhea, no nausea, no vomiting, no abdominal pain. NEUROLOGICAL: No headaches, no weakness, PHYSICAL EXAMINATION: GENERAL: The patient is alert and oriented x3, not in any acute distress. Well developed, well nourished. HEENT: Pupils are round and equally reacting to light. EOMI. No scleral icterus. No conjunctival pallor. Normocephalic, atraumatic. No pharyngeal erythema. No thyromegaly. CARDIOVASCULAR: S1 and S2 present. No murmurs, rubs, or gallops. PULMONARY: Chest is clear to auscultation, no wheezing or crackles. ABDOMEN: Soft, nontender, nondistended, normoactive bowel sounds. No palpable organomegaly. MUSCULOSKELETAL: No joint swelling or deformity. EXTREMITIES: No cyanosis, clubbing, or pedal edema. NEUROLOGICAL: Gross neurological examination did not reveal any focal deficits. SKIN: No rashes. Assessment and plan Acute sepsis secondary to acute bacteremia gram neg and acute UTI with ESBL E. coli, failed outpatient treatment with nitrofurantoin, in a patient with history of previous ESBL E. coli , Morganella morganii UTIs. Acute bacteremia,molecular ID, E. coli ESBL ,suspect r/t acute UTI, preliminary repeat blood cultures reporting no growth in 24 hours. Acute mild delirium at night, acute metabolic encephalopathy, multifactorial, secondary to all the above, hospital environment. Acute leukocytosis secondary to the above, resolved Acute thrombocytopenia Acute renal failure secondary to infection Acute hyponatremia, mild Lactic acidosis Acute hypoxic respiratory failure secondary to all the above Generalized weakness secondary to all the above, status post recent fall Hypoalbuminemia, moderate protein calorie malnutrition Renal transplant on chronic immunosuppression, Prograf, CellCept and prednisone Chronic renal failure stage IIIA, history of renal transplant, baseline creatinine 1.2-1.4. 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 Craig Depression Anxiety Obesity, BMI 30 Monitor vital signs Monitor CBC Monitor CMP Follow-up on blood cultures Follow-up on urine culture Continue finasteride Continue aspirin Monitor blood sugar levels, continue current insulin regimen Continue Synthroid Continue meropenem Continue tacrolimus, prednisone Nephrology following, appreciate their input ID on board, appreciate their recommendation Labs and medication were reviewed.. Continue same treatment. Continue with symptomatic treatment. Resume home medication. Monitor labs and vitals. DVT and GI prophylaxis. Further recommendations as per clinical course of the patient Dictation was produced using [employer] dictation software. please excuse any grammatical, word or spelling errors. Objective - Vital Signs Vital signs: Vital Signs Temp 98.4 F 10/26/24 07:05 Pulse 63 10/26/24 07:05 Resp 18 10/26/24 07:05 BP 166/80 10/26/24 07:05 Pulse Ox 95 10/26/24 07:05 FiO2 Intake & Output 10/25/24 10/26/24 10/26/24 18:59 06:59 18:59 Intake Total 600 120 Output Total 750 Balance -150 120 Weight 92 kg Intake: Oral 600 120 Output: Urine 750 Other: Voiding Method Indwelling Catheter Indwelling Catheter - Labs CBC & Chem 7: 10/26/24 06:11 10/26/24 06:11 Labs: Abnormal Lab Results - Last 24 Hours (Table) 10/25/24 10/25/24 10/25/24 Range/Units 10:17 11:22 16:28 RBC (4.40-5.60) X 10*6/uL Hgb (13.0-17.0) g/dL Hct (39.6-50.0) % RDW (11.5-14.5) % Plt Count (140-440) X 10*3/uL Immature Gran # (0.00-0.04) X 10*3/uL BUN 44 H (9-20) mg/dL Creatinine 1.56 H (0.66-1.25) mg/dL Est GFR (CKD-EPI) (>=60) BUN/Creatinine Ratio (12.00-20.00) Ratio Glucose 171 H (74-99) mg/dL POC Glucose (mg/dL) 152 H 316 H (70-110) mg/dL Calcium 8.1 L (8.4-10.2) mg/dL 10/25/24 10/26/24 10/26/24 Range/Units 21:08 06:11 06:11 RBC 3.78 L (4.40-5.60) X 10*6/uL Hgb 10.9 L (13.0-17.0) g/dL Hct 33.6 L (39.6-50.0) % RDW 14.6 H (11.5-14.5) % Plt Count 116 L (140-440) X 10*3/uL Immature Gran # 0.07 H (0.00-0.04) X 10*3/uL BUN 32.6 H (9-20) mg/dL Creatinine (0.66-1.25) mg/dL Est GFR (CKD-EPI) 55 L (>=60) BUN/Creatinine Ratio 25.08 H (12.00-20.00) Ratio Glucose (74-99) mg/dL POC Glucose (mg/dL) 143 H (70-110) mg/dL Calcium 7.9 L (8.4-10.2) mg/dL Microbiology - Last 24 Hours (Table) 10/24/24 04:26 Blood Culture - Preliminary Blood 10/22/24 08:52 Blood Culture Gram Stain - Final Blood Blood Culture - Final Escherichia coli ESBL Molecular ID
--- NOTE | 2024-10-26 14:57 | P.PN ---
Subjective Progress Note Date: 10/26/24 Principal diagnosis: Reason for follow-up is sepsis and bacteremia Patient is a 84-year-old male with a past medical history significant for Atrial Fibrillation, Blood Disorder, Cancer, Diabetes Mellitus, Hearing Disorder / Deafness, Hyperlipidemia, Hypertension, Osteoarthritis (OA), Pneumonia, Prostate Disorder, Renal Disease, Thyroid Disorder, end-stage renal disease status post renal transplant 22 years ago presenting to the ER for evaluation of weakness, patient was noticed to be septic from urinary source prompted this consultation. Blood culture subsequently came back positive for ESBL E. coli. On today's evaluation that is 10/26/2024, patient did not have any fever and denies any chills, patient is breathing comfortably on room air, patient with no chest pain or cough patient did not have any abdominal pain nausea vomiting or any loose stools Patient white count 7.51, creatinine is 1.3 blood culture repeat has been negative Objective - Vital Signs Vital signs: Vital Signs Temp 98.4 F 10/26/24 07:05 Pulse 63 10/26/24 07:05 Resp 18 10/26/24 07:05 BP 166/80 10/26/24 07:05 Pulse Ox 95 10/26/24 07:05 FiO2 Intake & Output 10/25/24 10/26/24 10/26/24 18:59 06:59 18:59 Intake Total 600 120 Output Total 750 Balance -150 120 Weight 92 kg Intake: Oral 600 120 Output: Urine 750 Other: Voiding Method Indwelling Catheter Indwelling Catheter - Exam GENERAL DESCRIPTION: An elderly male lying in bed in no distress RESPIRATORY SYSTEM: Unlabored breathing , decreased breath sounds at bases HEART: S1 S2 regular rate and rhythm , ABDOMEN: Soft , no tenderness EXTREMITIES: No edema feet - Labs CBC & Chem 7: 10/26/24 06:11 10/26/24 06:11 Labs: Abnormal Lab Results - Last 24 Hours (Table) 10/25/24 10/25/24 10/26/24 Range/Units 16:28 21:08 06:11 RBC (4.40-5.60) X 10*6/uL Hgb (13.0-17.0) g/dL Hct (39.6-50.0) % RDW (11.5-14.5) % Plt Count (140-440) X 10*3/uL Immature Gran # (0.00-0.04) X 10*3/uL BUN 32.6 H (9.0-27.0) mg/dL Est GFR (CKD-EPI) 55 L (>=60) BUN/Creatinine Ratio 25.08 H (12.00-20.00) Ratio POC Glucose (mg/dL) 316 H 143 H (70-110) mg/dL Calcium 7.9 L (8.7-10.3) mg/dL 10/26/24 10/26/24 Range/Units 06:11 12:19 RBC 3.78 L (4.40-5.60) X 10*6/uL Hgb 10.9 L (13.0-17.0) g/dL Hct 33.6 L (39.6-50.0) % RDW 14.6 H (11.5-14.5) % Plt Count 116 L (140-440) X 10*3/uL Immature Gran # 0.07 H (0.00-0.04) X 10*3/uL BUN (9.0-27.0) mg/dL Est GFR (CKD-EPI) (>=60) BUN/Creatinine Ratio (12.00-20.00) Ratio POC Glucose (mg/dL) 120 H (70-110) mg/dL Calcium (8.7-10.3) mg/dL Microbiology - Last 24 Hours (Table) 10/24/24 04:26 Blood Culture - Preliminary Blood 10/22/24 08:52 Blood Culture Gram Stain - Final Blood Blood Culture - Final Escherichia coli ESBL Molecular ID Assessment and Plan (1) Infection due to ESBL-producing Escherichia coli Current Visit: Yes Status: Acute Code(s): A49.8 - OTHER BACTERIAL INFECTIONS OF UNSPECIFIED SITE; Z16.12 - EXTENDED SPECTRUM BETA LACTAMASE (ESBL) RESISTANCE SNOMED Code(s): 930047700 (2) Sepsis Current Visit: Yes Status: Acute Code(s): A41.9 - SEPSIS, UNSPECIFIED ORGANISM SNOMED Code(s): 02465414 (3) UTI (urinary tract infection) Current Visit: Yes Status: Acute Code(s): N39.0 - URINARY TRACT INFECTION, SITE NOT SPECIFIED SNOMED Code(s): 09098369 (4) Bacteremia Current Visit: Yes Status: Acute Code(s): R78.81 - BACTEREMIA SNOMED Code(s): 5425464 Plan: 1patient presented to hospital with sepsis in this patient who did have fever tachycardia elevated white count elevated lactic acid meeting currently for SIRS/sepsis source is likely urinary in this patient who did have a 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 coli treated with oral antibiotic more likely dealing with the same pathogen. 2history of renal transplant on immunosuppressive 3patient did have a ESBL E. coli bacteremia source is likely UTI, ultrasound negative for any obstructive uropathy 4patient blood culture repeat has been negative so far currently being treated meropenem 1 g every 8 hours 5plan will be to get a midline on Monday and finish therapy with IV Invanz on discharge, discussed with covering admitting physician Dictation was produced using [employer] dictation software. please excuse any grammatical, word or spelling errors.
[2024-10-26 17:09] LABS: Glucose,Whole Blood 209 mg/dL (70-110)
[2024-10-26 19:59] LABS: Glucose,Whole Blood 186 mg/dL (70-110)
[2024-10-27 06:11] LABS: Glucose,Whole Blood 95 mg/dL (70-110)
--- NOTE | 2024-10-27 11:17 | P.PN ---
Subjective Assessment: 1. Acute allograft dysfunction 2. Secondary to ATN secondary to severe sepsis. Creatinine peaked at 2.16 this admission and improved to 1.3 yesterday. Kidney ultrasound showed no hydronephrosis of the transplant kidney. Status post donor renal allograft in 2002. 3. 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 4. Severe sepsis secondary to E. coli bacteremia on antibiotics. 5. Diabetes mellitus. 6. Metabolic acidosis secondary to acute kidney injury status post IV bicarb. Improved. Plan: Maintain gentle IV hydration. Tacrolimus level 8.0 dated October 24, 2024. Continue to hold CellCept for now. Maintain tacrolimus and increased dose of prednisone for now. Can resume CellCept upon discharge and decrease dose of prednisone back to 5 mg. Patient prefers to go home and have home care nurse infusing antibiotics rather than going to rehab. Objective - Vital Signs Vital signs: Vital Signs Temp 98.3 F 10/27/24 06:40 Pulse 70 10/27/24 08:45 Resp 18 10/27/24 08:45 BP 141/77 10/27/24 06:40 Pulse Ox 95 10/27/24 06:40 FiO2 Intake & Output 10/26/24 10/27/24 10/27/24 18:59 06:59 18:59 Intake Total 320 1080 Output Total 1500 1400 Balance -1180 -320 Weight 91.5 kg Intake: Oral 320 1080 Output: Urine 1500 1400 Other: Voiding Method Indwelling Catheter Indwelling Catheter Indwelling Catheter - Labs CBC & Chem 7: 10/26/24 06:11 10/26/24 06:11 Labs: Abnormal Lab Results - Last 24 Hours (Table) 10/26/24 10/26/24 10/26/24 Range/Units 12:19 17:06 19:58 POC Glucose (mg/dL) 120 H 209 H 186 H (70-110) mg/dL Microbiology - Last 24 Hours (Table) 10/24/24 04:26 Blood Culture - Preliminary Blood
[2024-10-27 11:56] LABS: Glucose,Whole Blood 143 mg/dL (70-110)
[2024-10-27] MEDS: NYSTATIN 100,000 UNIT/ML SUSP 500,000 UNIT/5 ML CUP PO SCH (13:04)
--- NOTE | 2024-10-27 13:16 | P.PN ---
Subjective Progress Note Date: 10/27/24 This Is a 84-year-old gentleman with chronic kidney disease, solitary kidney, renal transplant ,ESBL E. coli UTI and multiple other medical issues presented to the ER with UTI with ESBL E. coli failed outpatient treatment with nitrofuradanton.discloses progressive dysuria, urinary frequency, nausea, vomit ing, generalized weakness with recent fall. Reports he fell forward into his bed related to generalized weakness, denies head/neck or extremity trauma. Denies syncope. Denies lightheadedness dizziness or headache or focal deficits. denies abdominal pain. Reports mild occasional cough. on admission temperature 104.7,WBC of 16.3 and lactic acid of 3.8. Tmax 104.7, WBC 16.3, hemoglobin 13.2, platelets 92, sodium 132, potassium 4.6, bicarb 19, BUN 35, creatinine 1.89, glucose 234, lactic acid 3.8, 1.3 T. bili 1.6, albumin 3.2; current labs pending. UA reported large blood, negative nitrates, large leukocytes, greater than 182 RBCs and WBCs, many WBC clumps, occasional bacteria and 33 hyaline cast. Viral studies negative. Chest x-ray reported no acute cardiopulmonary disease/process. Initially received ceftriaxone,Invanz yesterday .preliminary blood culture reported molecular ID,CTX-.M., E. coli. Antibiotics adjusted to Merrem as per ID. 10/24/2024 maintained on IV fluid resuscitation, hypertensive this morning. Orts did not sleep well. Maintained on IV antibiotics as per infectious disease for UTI, culture pending and gram-negative molecular DC and preliminary blood cultures. Afebrile, Tmax 99.1. WBC has normalized, 10. Hemoglobin 10.2, p latelets 84, sodium 135, potassium 4.5, bicarb 18.6, BUN 46.7, creatinine 2. Positive diet intake, denies nausea vomiting or diarrhea. Denies abdominal pain. Hyperglycemic, blood sugars in the low 200s, hemoglobin A1c 5.1.. Renal ultrasound reported atrophic [place] kidneys, Pelvic transplant kidney without evidence for hydronephrosis, simple appearing pelvic transplant cyst. Bicarb drip initiated as per nephrology 10/25/2024 hypertensive, blood pressure 182/100. Maintain on bicarb drip. Renal function improving, bicarb 26 ,BUN 44, creatinine 1.56. Continues on Merrem ,repeat preliminary blood culture reporting no growth after 24 hours. Afebrile. Discloses that he had some mild confusion during the night, which has subsided. /5. Patient seen and examined. Currently undergoing dialysis. No acute issue overnight. Denies any chest pain or shortness of breath /6. Patient seen and examined. Complaining of painful swelling, white patches seen on the tongue. REVIEW OF SYSTEMS: CONSTITUTIONAL: No fever, no malaise,. CARDIOVASCULAR: No chest pain, no palpitations, no syncope. PULMONARY: No shortness of breath, no cough, GASTROINTESTINAL: No diarrhea, no nausea, no vomiting, no abdominal pain. NEUROLOGICAL: No headaches, no weakness, PHYSICAL EXAMINATION: GENERAL: The patient is alert and oriented x3, not in any acute distress. Well developed, well nourished. HEENT: Pupils are round and equally reacting to light. EOMI. No scleral icterus. No conjunctival pallor. Normocephalic, atraumatic. No pharyngeal erythema. No thyromegaly. CARDIOVASCULAR: S1 and S2 present. No murmurs, rubs, or gallops. PULMONARY: Chest is clear to auscultation, no wheezing or crackles. ABDOMEN: Soft, nontender, nondistended, normoactive bowel sounds. No palpable organomegaly. MUSCULOSKELETAL: No joint swelling or deformity. EXTREMITIES: No cyanosis, clubbing, or pedal edema. NEUROLOGICAL: Gross neurological examination did not reveal any focal deficits. SKIN: No rashes. Assessment and plan Acute sepsis secondary to acute bacteremia gram neg and acute UTI with ESBL E. coli, failed outpatient treatment with nitrofurantoin, in a patient with history of previous ESBL E. coli , Morganella morganii UTIs. Acute bacteremia,molecular ID, E. coli ESBL ,suspect r/t acute UTI, preliminary repeat blood cultures reporting no growth in 24 hours. Acute mild delirium at night, acute metabolic encephalopathy, multifactorial, secondary to all the above, hospital environment. Acute leukocytosis secondary to the above, resolved Acute thrombocytopenia Acute renal failure secondary to infection Acute hyponatremia, mild Lactic acidosis Acute hypoxic respiratory failure secondary to all the above Generalized weakness secondary to all the above, status post recent fall Hypoalbuminemia, moderate protein calorie malnutrition Renal transplant on chronic immunosuppression, Prograf, CellCept and prednisone Chronic renal failure stage IIIA, history of renal transplant, baseline creatinine 1.2-1.4. 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 Craig Depression Anxiety Obesity, BMI 30 Monitor vital signs Monitor CBC Monitor CMP Follow-up on blood cultures Follow-up on urine culture Continue finasteride Continue aspirin Monitor blood sugar levels, continue current insulin regimen Continue Synthroid Continue meropenem Ordered nystatin Continue tacrolimus, prednisone Nephrology following, appreciate their input ID on board, appreciate their recommendation Labs and medication were reviewed.. Continue same treatment. Continue with symptomatic treatment. Resume home medication. Monitor labs and vitals. DVT and GI prophylaxis. Further recommendations as per clinical course of the patient Dictation was produced using [employer] dictation software. please excuse any grammatical, word or spelling errors. Objective - Vital Signs Vital signs: Vital Signs Temp 98.3 F 10/27/24 06:40 Pulse 70 10/27/24 08:45 Resp 18 10/27/24 08:45 BP 141/77 10/27/24 06:40 Pulse Ox 95 10/27/24 06:40 FiO2 Intake & Output 10/26/24 10/27/24 10/27/24 18:59 06:59 18:59 Intake Total 320 1080 Output Total 1500 1400 Balance -1180 -320 Weight 91.5 kg Intake: Oral 320 1080 Output: Urine 1500 1400 Other: Voiding Method Indwelling Catheter Indwelling Catheter Indwelling Catheter - Labs CBC & Chem 7: 10/26/24 06:11 10/26/24 06:11 Labs: Abnormal Lab Results - Last 24 Hours (Table) 10/26/24 10/26/24 10/26/24 Range/Units 12:19 17:06 19:58 POC Glucose (mg/dL) 120 H 209 H 186 H (70-110) mg/dL Microbiology - Last 24 Hours (Table) 10/24/24 04:26 Blood Culture - Preliminary Blood
--- NOTE | 2024-10-27 14:13 | P.PN ---
Subjective Progress Note Date: 10/27/24 Principal diagnosis: Reason for follow-up is sepsis and bacteremia Patient is a 84-year-old male with a past medical history significant for Atrial Fibrillation, Blood Disorder, Cancer, Diabetes Mellitus, Hearing Disorder / Deafness, Hyperlipidemia, Hypertension, Osteoarthritis (OA), Pneumonia, Prostate Disorder, Renal Disease, Thyroid Disorder, end-stage renal disease status post renal transplant 22 years ago presenting to the ER for evaluation of weakness, patient was noticed to be septic from urinary source prompted this consultation. Blood culture subsequently came back positive for ESBL E. coli. On today's evaluation that is 10/27/2024, Patient is afebrile patient is currently on room air and breathing comfortably, the patient denies any chest pain or cough, the patient denies any nausea vomiting did not have any abdominal pain and no diarrhea. No new lab has been repeated today blood culture repeat has been negative Objective - Vital Signs Vital signs: Vital Signs Temp 98.3 F 10/27/24 06:40 Pulse 70 10/27/24 08:45 Resp 18 10/27/24 08:45 BP 141/77 10/27/24 06:40 Pulse Ox 95 10/27/24 06:40 FiO2 Intake & Output 10/26/24 10/27/24 10/27/24 18:59 06:59 18:59 Intake Total 320 1080 200 Output Total 1500 1400 1300 Balance -1180 -320 -1100 Weight 91.5 kg Intake: Oral 320 1080 200 Output: Urine 1500 1400 1300 Uretheral (Dubon) 400 Other: Voiding Method Indwelling Catheter Indwelling Catheter Indwelling Catheter - Exam GENERAL DESCRIPTION: An elderly male lying in bed in no distress RESPIRATORY SYSTEM: Unlabored breathing , decreased breath sounds at bases HEART: S1 S2 regular rate and rhythm , ABDOMEN: Soft , no tenderness EXTREMITIES: No edema feet - Labs CBC & Chem 7: 10/26/24 06:11 10/26/24 06:11 Labs: Abnormal Lab Results - Last 24 Hours (Table) 10/26/24 10/26/24 10/27/24 Range/Units 17:06 19:58 11:54 POC Glucose (mg/dL) 209 H 186 H 143 H (70-110) mg/dL Microbiology - Last 24 Hours (Table) 10/24/24 04:26 Blood Culture - Preliminary Blood Assessment and Plan (1) Infection due to ESBL-producing Escherichia coli Current Visit: Yes Status: Acute Code(s): A49.8 - OTHER BACTERIAL INFECTIONS OF UNSPECIFIED SITE; Z16.12 - EXTENDED SPECTRUM BETA LACTAMASE (ESBL) RESISTANCE SNOMED Code(s): 479651958 (2) Sepsis Current Visit: Yes Status: Acute Code(s): A41.9 - SEPSIS, UNSPECIFIED ORGANISM SNOMED Code(s): 71710052 (3) UTI (urinary tract infection) Current Visit: Yes Status: Acute Code(s): N39.0 - URINARY TRACT INFECTION, SITE NOT SPECIFIED SNOMED Code(s): 31004342 (4) Bacteremia Current Visit: Yes Status: Acute Code(s): R78.81 - BACTEREMIA SNOMED Code(s): 3920235 Plan: 1patient presented to hospital with sepsis in this patient who did have fever tachycardia elevated white count elevated lactic acid meeting currently for SIRS/sepsis source is likely urinary in this patient who did have a 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 coli treated with oral antibiotic more likely dealing with the same pathogen. 2history of renal transplant on immunosuppressive 3patient did have a ESBL E. coli bacteremia source is likely UTI, ultrasound negative for any obstructive uropathy 4patient blood culture repeat has been negative so far currently being treated meropenem 1 g every 8 hours, will place a midline tomorrow antibiotic to be switched over to Invanz 1 g daily for 10 days to finish course of therapy Dictation was produced using [employer] dictation software. please excuse any grammatical, word or spelling errors. Time with Patient: Less than 30
[2024-10-27 16:49] LABS: Glucose,Whole Blood 207 mg/dL (70-110)
[2024-10-27 20:53] LABS: Glucose,Whole Blood 206 mg/dL (70-110)
[2024-10-28 06:22] LABS: Glucose,Whole Blood 93 mg/dL (70-110)
[2024-10-28 08:24] LABS: ALT 31 U/L (10-49); AST 24 U/L (14-35); Albumin 3.1 g/dL (3.8-4.9); Albumin/Globulin Ratio 1.94 Ratio (1.60-3.17); Alkaline Phosphatase 73 U/L (41-126); Blood Urea Nitrogen 27.6 mg/dL (9.0-27.0); Calcium 7.9 mg/dL (8.7-10.3); Carbon Dioxide 21.8 mmol/L (21.6-31.8); Chloride 107 mmol/L (96-109); Globulin 1.6 g/dL (1.6-3.3); Glucose 100 mg/dL (70-110); Potassium 4.4 mmol/L (3.5-5.5); Sodium 141 mmol/L (135-145); Total Bilirubin 0.6 mg/dL (0.3-1.2); Total Protein 4.7 g/dL (6.2-8.2)
[2024-10-28 08:27] LABS: Basophils # (A) 0.05 X 10*3/uL (0.00-0.10); Basophils % (A) 0.6 %; Eosinophils # (A) 0.19 X 10*3/uL (0.04-0.35); Eosinophils % (A) 2.1 %; HCT 39.3 % (39.6-50.0); HGB 12.3 g/dL (13.0-17.0); Lymphocytes # (A) 1.41 X 10*3/uL (0.90-5.00); Lymphocytes % (A) 15.6 %; MCH 28.5 pg (27.0-32.0); MCHC 31.3 g/dL (32.0-37.0); MCV 91.2 FL (80.0-97.0); Mean Platelet Volume 10.9 FL (9.5-12.2); Monocytes # (A) 1.08 X 10*3/uL (0.20-1.00); NRBC Per 100 WBC 0 X 10*3/uL (0.00-0.01); Neutrophils # (A) 6.14 X 10*3/uL (1.80-7.70); Platelet Count 122 X 10*3/uL (140-440); RBC 4.31 X 10*6/uL (4.40-5.60); RDW 14.8 % (11.5-14.5); WBC 9.02 X 10*3/uL (4.50-10.00)
--- NOTE | 2024-10-28 10:36 | P.PN ---
Subjective Assessment: 1. Acute allograft dysfunction secondary to ATN secondary to severe sepsis. Creatinine peaked at 2.16 this admission and improved to 1.2 today. Kidney ultrasound showed no hydronephrosis of the transplant kidney. 2. Status post donor renal allograft in 2002. 3. 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 4. Severe sepsis secondary to E. coli bacteremia on antibiotics. 5. Diabetes mellitus. 6. Metabolic acidosis secondary to acute kidney injury status post IV bicarb. Improved. Plan: Maintain gentle IV hydration. Tacrolimus level 8.0 dated October 24, 2024. Can resume CellCept starting tomorrow and prednisone dose to be decreased to 5 mg daily which is a home dose. Maintain tacrolimus. Follow-up outpatient 1 week postdischarge. Objective - Vital Signs Vital signs: Vital Signs Temp 98.1 F 10/28/24 07:10 Pulse 62 10/28/24 07:10 Resp 17 10/28/24 07:10 BP 152/84 10/28/24 07:10 Pulse Ox 97 10/28/24 07:10 FiO2 Intake & Output 10/27/24 10/28/24 10/28/24 18:59 06:59 18:59 Intake Total 200 700 Output Total 2150 1100 Balance -1950 -400 Weight 90.5 kg Intake: Intake, IV Titration 700 Amount Meropenem 1 gm In Sodium 100 Chloride 0.9% 100 ml @ 33 .3 mls/hr IVPB Q8HR [place] Rx#:[id number] Sodium Chloride 0.9% 1, 600 000 ml @ 50 mls/hr IV . Q20H [place] Rx#:[id number] Oral 200 Output: Urine 2150 1100 Uretheral (Dubon) 400 Other: Voiding Method Indwelling Catheter Urinal Urinal # Bowel Movements 1 - Labs CBC & Chem 7: 10/28/24 02:56 10/28/24 02:56 Labs: Abnormal Lab Results - Last 24 Hours (Table) 10/27/24 10/27/24 10/27/24 Range/Units 11:54 16:48 20:51 RBC (4.40-5.60) X 10*6/uL Hgb (13.0-17.0) g/dL Hct (39.6-50.0) % MCHC (32.0-37.0) g/dL RDW (11.5-14.5) % Plt Count (140-440) X 10*3/uL Immature Gran # (0.00-0.04) X 10*3/uL Monocytes # (0.20-1.00) X 10*3/uL Anion Gap (4.00-12.00) mmol/L BUN (9.0-27.0) mg/dL BUN/Creatinine Ratio (12.00-20.00) Ratio POC Glucose (mg/dL) 143 H 207 H 206 H (70-110) mg/dL Calcium (8.7-10.3) mg/dL Total Protein (6.2-8.2) g/dL Albumin (3.8-4.9) g/dL 10/28/24 10/28/24 Range/Units 02:56 02:56 RBC 4.31 L (4.40-5.60) X 10*6/uL Hgb 12.3 L (13.0-17.0) g/dL Hct 39.3 L (39.6-50.0) % MCHC 31.3 L (32.0-37.0) g/dL RDW 14.8 H (11.5-14.5) % Plt Count 122 L (140-440) X 10*3/uL Immature Gran # 0.15 H (0.00-0.04) X 10*3/uL Monocytes # 1.08 H (0.20-1.00) X 10*3/uL Anion Gap 12.20 H (4.00-12.00) mmol/L BUN 27.6 H (9.0-27.0) mg/dL BUN/Creatinine Ratio 23.00 H (12.00-20.00) Ratio POC Glucose (mg/dL) (70-110) mg/dL Calcium 7.9 L (8.7-10.3) mg/dL Total Protein 4.7 L (6.2-8.2) g/dL Albumin 3.1 L (3.8-4.9) g/dL Microbiology - Last 24 Hours (Table) 10/24/24 04:26 Blood Culture - Preliminary Blood
--- NOTE | 2024-10-28 11:28 | P.DS ---
Providers Date of admission: 10/22/24 10:27 Expected date of discharge: 10/28/24 Attending physician: Narinder Rosenberg Consults: 10/22/24 10:25 Consult Physician Routine Consulting Provider: Luh Hwang Consult Reason/Comments: ESBL UTI Do you want consulting provider notified?: Already Contacted 10/23/24 09:25 Consult Physician Routine Consulting Provider: Carolina Wolfe Consult Reason/Comments: acute renal failure,uti/ESBL,Solitary kidney Do you want consulting provider notified?: Yes Primary care physician: Narinder Rosenberg [facility] Course: Final Diagnoses: Acute sepsis secondary to acute bacteremia gram neg and acute UTI with ESBL E. coli, failed outpatient treatment with nitrofurantoin, in a patient with history of previous ESBL E. coli , Morganella morganii UTIs. Acute bacteremia,molecular ID, E. coli ESBL ,suspect r/t acute UTI, preliminary repeat blood cultures reporting no growth in 24 hours. Acute mild delirium at night, acute metabolic encephalopathy, multifactorial, secondary to all the above, hospital environment. Acute leukocytosis secondary to the above, resolved Acute thrombocytopenia Acute renal failure secondary to infection Acute hyponatremia, mild Lactic acidosis Acute hypoxic respiratory failure secondary to all the above Generalized weakness secondary to all the above, status post recent fall Hypoalbuminemia, moderate protein calorie malnutrition Renal transplant on chronic immunosuppression, Prograf, CellCept and prednisone Chronic renal failure stage IIIA, history of renal transplant, baseline creatinine 1.2-1.4. Anemia of chronic disease Diabetes mellitus type 2, A1c Valvular heart disease Paroxysmal atrial fibrillation, not on anticoagulation secondary to ITP CAD, history of CABG Chronic CHF, diastolic dysfunction Hypertension Hospital course:This Is a 84-year-old gentleman with chronic kidney disease, solitary kidney, renal transplant ,ESBL E. coli UTI and multiple other medical issues presented to the ER with UTI with ESBL E. coli failed outpatient treatment with nitrofuradanton.discloses progressive dysuria, urinary frequency, nausea, vomiting, generalized weakness with recent fall. Reports he fell forward into his bed related to generalized weakness, denies head/neck or extremity trauma. Denies syncope. Denies lightheadedness dizziness or headache or focal deficits. denies abdominal pain. Reports mild occasional cough. on admission temperature 104.7,WBC of 16.3 and lactic acid of 3.8. Tmax 104.7, WBC 16.3, hemoglobin 13.2, platelets 92, sodium 132, potassium 4.6, bicarb 19, BUN 35, creatinine 1.89, glucose 234, lactic acid 3.8, 1.3 T. bili 1.6, albumin 3.2; current labs pending. UA reported large blood, negative nitrates, large leukocytes, greater than 182 RBCs and WBCs, many WBC clumps, occasional bacteria and 33 hyaline cast. Viral studies negative. Chest x-ray reported no acute cardiopulmonary disease/process. Initially received ceftriaxone,Invanz yesterday .preliminary blood culture reported molecular ID,CTX-.M., E. coli. Antibiotics adjusted to Merrem as per ID. 10/24/2024 maintained on IV fluid resuscitation, hypertensive this morning. Orts did not sleep well. Maintained on IV antibiotics as per infectious disease for UTI, culture pending and gram-negative molecular DC and preliminary blood cultures. Afebrile, Tmax 99.1. WBC has normalized, 10. Hemoglobin 10.2, platelets 84, sodium 135, potassium 4.5, bicarb 18.6, BUN 46.7, creatinine 2. Positive diet intake, denies nausea vomiting or diarrhea. Denies abdominal pain. Hyperglycemic, blood sugars in the low 200s, hemoglobin A1c 5.1.. Renal ultrasound reported atrophic [place] kidneys, Pelvic transplant kidney without evidence for hydronephrosis, simple appearing pelvic transplant cyst. Bicarb drip initiated as per nephrology 10/25/2024 hypertensive, blood pressure 182/100. Maintain on bicarb drip. Renal function improving, bicarb 26 ,BUN 44, creatinine 1.56. Continues on Merrem ,repeat preliminary blood culture reporting no growth after 24 hours. Afebrile. Discloses that he had some mild confusion during the night, which has subsided. 10/28/2024 afebrile, normal WBC, creatinine 1.2. Currently maintained on Merrem. Patient will be discharged to [facility] subacute rehab pending midline placement, DC antibiotic of Invanz x 10 days as per ID, in a stable condition with guarded prognosis. Microbiology 10/24/24 04:26 Blood Blood Culture - Preliminary 10/22/24 08:52 Blood Blood Culture Gram Stain - Final 10/22/24 08:52 Blood Blood Culture - Final Escherichia coli ESBL Molecular ID The impression and plan of care has been dictated as directed. : I performed a history and examination of this patient, discussed the same with the dictator. I agree with the dictator's note ,documented as a scribe. Any additional findings or plans will be noted. Patient Condition at Discharge: Stable Plan - Discharge Summary Discharge Rx Participant: No New Discharge Prescriptions: New Ertapenem [INVanz] 1 gm IVPB Q24H #10 each Nystatin 100,000 Unit/ml Susp [Mycostatin Oral Susp] 500,000 unit PO QID ml Continue Finasteride [Proscar] 5 mg PO DAILY Tamsulosin HCl [Flomax] 0.4 mg PO DAILY Multivitamins, Thera [Multivitamin (formulary)] 1 tab PO DAILY Vit C/E/Zn/Coppr/Lutein/Zeaxan [Preservision Areds 2 Softgel] 1 cap PO HS Pantoprazole [Protonix] 40 mg PO DAILY Tacrolimus [Prograf] 1 mg PO BID Sodium Bicarbonate Tab 650 mg PO BID QUEtiapine [SEROquel] 100 mg PO HS rOPINIRole HCL [Requip] 1 mg PO HS Magnesium Oxide [Mag-Ox] 400 mg PO DAILY tab Loperamide [Imodium] 2 mg PO QID PRN #24 cap PRN Reason: Diarrhea Ferrous Sulfate [Iron] 325 mg PO DAILY predniSONE 5 mg PO DAILY Metoprolol Tartrate [Lopressor] 100 mg PO BID hydrALAZINE HCL [Apresoline] 100 mg PO TID PRN PRN Reason: BP>140 INSULIN LISPRO (HumaLOG) [humaLOG] See Protocol SQ AC-TID Gabapentin [Neurontin] 400 mg PO HS Levothyroxine Sodium [Synthroid] 75 mcg PO DAILY DULoxetine HCL [Cymbalta] 120 mg PO DAILY Aspirin 81 mg PO DAILY Rosuvastatin Calcium [Crestor] 5 mg PO HS Eltrombopag Olamine [Promacta] 12.5 mg PO DAILY@0700 mycophenolate mofetiL [Cellcept] 250 mg PO BID #0 Insulin Glargine/Lixisenatide [[place]iqu[place] 100 Unit-33 Mcg/ml Pen] 25 units SQ DAILY Vibegron [Gemtesa] 75 mg PO DAILY Discontinued amLODIPine [Norvasc] 2.5 mg PO DAILY Discharge Medication List Finasteride [Proscar] 5 mg PO DAILY 02/09/17 [History] Tamsulosin HCl [Flomax] 0.4 mg PO DAILY 02/09/17 [History] Multivitamins, Thera [Multivitamin (formulary)] 1 tab PO DAILY 12/31/18 [History] Vit C/E/Zn/Coppr/Lutein/Zeaxan [Preservision Areds 2 Softgel] 1 cap PO HS 12/18/19 [History] Pantoprazole [Protonix] 40 mg PO DAILY 12/28/19 [History] Tacrolimus [Prograf] 1 mg PO BID 04/03/20 [History] DULoxetine HCL [Cymbalta] 120 mg PO DAILY 12/01/20 [History] Levothyroxine Sodium [Synthroid] 75 mcg PO DAILY 12/01/20 [History] Aspirin 81 mg PO DAILY 07/12/21 [History] QUEtiapine [SEROquel] 100 mg PO HS 07/12/21 [History] Rosuvastatin Calcium [Crestor] 5 mg PO HS 07/12/21 [History] Sodium Bicarbonate Tab 650 mg PO BID 07/12/21 [History] rOPINIRole HCL [Requip] 1 mg PO HS 09/02/21 [History] Eltrombopag Olamine [Promacta] 12.5 mg PO DAILY@0700 05/31/23 [History] Magnesium Oxide [Mag-Ox] 400 mg PO DAILY tab 06/07/23 [Rx] Loperamide [Imodium] 2 mg PO QID PRN #24 cap 08/09/23 [Rx] mycophenolate mofetiL [Cellcept] 250 mg PO BID #0 08/09/23 [Rx] Ferrous Sulfate [Iron] 325 mg PO DAILY 03/18/24 [History] Insulin Glargine/Lixisenatide [Soliqua 100 Unit-33 Mcg/ml Pen] 25 units SQ DAILY 03/18/24 [History] Gabapentin [Neurontin] 400 mg PO HS 10/22/24 [History] INSULIN LISPRO (HumaLOG) [humaLOG] See Protocol SQ AC-TID 10/22/24 [History] Metoprolol Tartrate [Lopressor] 100 mg PO BID 10/22/24 [History] Vibegron [Gemtesa] 75 mg PO DAILY 10/22/24 [History] hydrALAZINE HCL [Apresoline] 100 mg PO TID PRN 10/22/24 [History] predniSONE 5 mg PO DAILY 10/22/24 [History] Ertapenem [INVanz] 1 gm IVPB Q24H #10 each 10/27/24 [Rx] Nystatin 100,000 Unit/ml Susp [Mycostatin Oral Susp] 500,000 unit PO QID ml 10/28/24 [Rx] Follow up Appointment(s)/Referral(s): Narinder Rosenberg DO [Primary Care Provider] - 3 Days Luh Hwang MD [STAFF PHYSICIAN] - 1 Week
[2024-10-28] MEDS: ERTAPENEM 1 GM in SODIUM CHLORIDE 0.9% 50 ML IVPB SCH (11:57)
[2024-10-28 12:13] LABS: Glucose,Whole Blood 128 mg/dL (70-110)
--- NOTE | 2024-10-28 12:28 | P.PN ---
Subjective Progress Note Date: 10/28/24 Principal diagnosis: Reason for follow-up is sepsis and bacteremia Patient is a 84-year-old male with a past medical history significant for Atrial Fibrillation, Blood Disorder, Cancer, Diabetes Mellitus, Hearing Disorder / Deafness, Hyperlipidemia, Hypertension, Osteoarthritis (OA), Pneumonia, Prostate Disorder, Renal Disease, Thyroid Disorder, end-stage renal disease status post renal transplant 22 years ago presenting to the ER for evaluation of weakness, patient was noticed to be septic from urinary source prompted this consultation. Blood culture subsequently came back positive for ESBL E. coli. On today's evaluation that is 10/28/2024, patient has been afebrile, patient is breathing comfortably and is currently on room air, patient denies having any ch est pain and cough, patient denies nausea vomiting or diarrhea and no abdominal pain. Patient white count 9.02, creatinine is 1.2 blood culture repeat has been negative Objective - Vital Signs Vital signs: Vital Signs Temp 98.1 F 10/28/24 07:10 Pulse 62 10/28/24 07:10 Resp 17 10/28/24 07:10 BP 152/84 10/28/24 07:10 Pulse Ox 97 10/28/24 07:10 FiO2 Intake & Output 10/27/24 10/28/24 10/28/24 18:59 06:59 18:59 Intake Total 200 700 Output Total 1700 1100 Balance -1500 -400 Weight 90.5 kg Intake: Intake, IV Titration 700 Amount Meropenem 1 gm In Sodium 100 Chloride 0.9% 100 ml @ 33 .3 mls/hr IVPB Q8HR [place] Rx#:[id number] Sodium Chloride 0.9% 1, 600 000 ml @ 50 mls/hr IV . Q20H [place] Rx#:[id number] Oral 200 Output: Urine 1700 1100 Uretheral (Dubon) 400 Other: Voiding Method Indwelling Catheter Urinal Urinal # Bowel Movements 1 - Exam GENERAL DESCRIPTION: An elderly male lying in bed in no distress RESPIRATORY SYSTEM: Unlabored breathing , decreased breath sounds at bases HEART: S1 S2 regular rate and rhythm , ABDOMEN: Soft , no tenderness EXTREMITIES: No edema feet - Labs CBC & Chem 7: 10/28/24 02:56 10/28/24 02:56 Labs: Abnormal Lab Results - Last 24 Hours (Table) 10/27/24 10/27/24 10/27/24 Range/Units 11:54 16:48 20:51 RBC (4.40-5.60) X 10*6/uL Hgb (13.0-17.0) g/dL Hct (39.6-50.0) % MCHC (32.0-37.0) g/dL RDW (11.5-14.5) % Plt Count (140-440) X 10*3/uL Immature Gran # (0.00-0.04) X 10*3/uL Monocytes # (0.20-1.00) X 10*3/uL Anion Gap (4.00-12.00) mmol/L BUN (9.0-27.0) mg/dL BUN/Creatinine Ratio (12.00-20.00) Ratio POC Glucose (mg/dL) 143 H 207 H 206 H (70-110) mg/dL Calcium (8.7-10.3) mg/dL Total Protein (6.2-8.2) g/dL Albumin (3.8-4.9) g/dL 10/28/24 10/28/24 Range/Units 02:56 02:56 RBC 4.31 L (4.40-5.60) X 10*6/uL Hgb 12.3 L (13.0-17.0) g/dL Hct 39.3 L (39.6-50.0) % MCHC 31.3 L (32.0-37.0) g/dL RDW 14.8 H (11.5-14.5) % Plt Count 122 L (140-440) X 10*3/uL Immature Gran # 0.15 H (0.00-0.04) X 10*3/uL Monocytes # 1.08 H (0.20-1.00) X 10*3/uL Anion Gap 12.20 H (4.00-12.00) mmol/L BUN 27.6 H (9.0-27.0) mg/dL BUN/Creatinine Ratio 23.00 H (12.00-20.00) Ratio POC Glucose (mg/dL) (70-110) mg/dL Calcium 7.9 L (8.7-10.3) mg/dL Total Protein 4.7 L (6.2-8.2) g/dL Albumin 3.1 L (3.8-4.9) g/dL Microbiology - Last 24 Hours (Table) 10/24/24 04:26 Blood Culture - Preliminary Blood Assessment and Plan (1) Infection due to ESBL-producing Escherichia coli Current Visit: Yes Status: Acute Code(s): A49.8 - OTHER BACTERIAL INFECTIONS OF UNSPECIFIED SITE; Z16.12 - EXTENDED SPECTRUM BETA LACTAMASE (ESBL) RESISTANCE SNOMED Code(s): 829900816 (2) Sepsis Current Visit: Yes Status: Acute Code(s): A41.9 - SEPSIS, UNSPECIFIED ORGANISM SNOMED Code(s): 49486227 (3) UTI (urinary tract infection) Current Visit: Yes Status: Acute Code(s): N39.0 - URINARY TRACT INFECTION, SITE NOT SPECIFIED SNOMED Code(s): 78983172 (4) Bacteremia Current Visit: Yes Status: Acute Code(s): R78.81 - BACTEREMIA SNOMED Code(s): 4707124 Plan: 1patient presented to hospital with sepsis in this patient who did have fever tachycardia elevated white count elevated lactic acid meeting currently for SIRS/sepsis source is likely urinary in this patient who did have a 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 coli treated with oral antibiotic more likely dealing with the same pathogen. 2history of renal transplant on immunosuppressive 3patient did have a ESBL E. coli bacteremia source is likely UTI, ultrasound negative for any obstructive uropathy 4patient blood culture repeat has been negative he did have a midline placement plan is to continue with Invanz 1 g daily on discharge to finish total of 2-week course of therapy Dictation was produced using [employer] dictation software. please excuse any grammatical, word or spelling errors. Time with Patient: Less than 30
[2024-10-28 16:28] LABS: Glucose,Whole Blood 148 mg/dL (70-110)
[2024-10-28 20:47] LABS: Glucose,Whole Blood 217 mg/dL (70-110)
[2024-10-29 06:22] LABS: Glucose,Whole Blood 83 mg/dL (70-110)
--- NOTE | 2024-10-29 10:37 | P.PN ---
Subjective Patient is seen in follow-up for acute allograft dysfunction. GFR back to baseline. Resting in bed. No active complaints. Vital signs are stable. Blood pressure high. General: No acute distress. HEENT: Head exam is unremarkable. LUNGS: No audible rhonchi or wheezes. HEART: Rate and Rhythm are regular. ABDOMEN: Nontender. EXTREMITITES: No edema. Objective - Vital Signs Vital signs: Vital Signs Temp 97.8 F 10/29/24 06:54 Pulse 60 10/29/24 06:54 Resp 20 10/29/24 06:54 BP 186/92 10/29/24 06:54 Pulse Ox 94 L 10/29/24 06:54 FiO2 Intake & Output 10/28/24 10/29/24 10/29/24 18:59 06:59 18:59 Output Total 1000 980 Balance -1000 -980 Weight 88.5 kg Output: Urine 1000 980 Other: Voiding Method Urinal Toilet Toilet Urinal Urinal - Labs CBC & Chem 7: 10/28/24 02:56 10/28/24 02:56 Labs: Abnormal Lab Results - Last 24 Hours (Table) 10/28/24 10/28/24 10/28/24 Range/Units 12:12 16:27 20:41 POC Glucose (mg/dL) 128 H 148 H 217 H (70-110) mg/dL Assessment and Plan Plan: Assessment: 1. Acute allograft dysfunction secondary to ATN secondary to severe sepsis. Creatinine peaked at 2.16 this admission and improved to 1.2 yesterday. Kidney ultrasound showed no hydronephrosis of the transplant kidney. 2. Status post donor renal allograft in 2002. 3. 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 4. Severe sepsis secondary to E. coli bacteremia on antibiotics. 5. Diabetes mellitus. 6. Metabolic acidosis secondary to acute kidney injury status post IV bicarb. Improved. 7. Hypertension with chronic kidney disease. Plan: Hep-Lock IV fluids. Tacrolimus level 8.0 dated October 24, 2024. Resume CellCept. Decrease dose of prednisone to 5 mg once daily per his home dose. Maintain tacrolimus. Add amlodipine 5 mg once daily. Follow-up outpatient 1 week postdischarge.
[2024-10-29] MEDS: amLODIPine 5 MG TAB PO SCH (10:58)
[2024-10-29 11:27] LABS: Glucose,Whole Blood 113 mg/dL (70-110)
--- NOTE | 2024-10-29 12:38 | P.PN ---
Subjective Progress Note Date: 10/29/24 Principal diagnosis: Reason for follow-up is sepsis and bacteremia Patient is a 84-year-old male with a past medical history significant for Atrial Fibrillation, Blood Disorder, Cancer, Diabetes Mellitus, Hearing Disorder / Deafness, Hyperlipidemia, Hypertension, Osteoarthritis (OA), Pneumonia, Prostate Disorder, Renal Disease, Thyroid Disorder, end-stage renal disease status post renal transplant 22 years ago presenting to the ER for evaluation of weakness, patient was noticed to be septic from urinary source prompted this consultation. Blood culture subsequently came back positive for ESBL E. coli. On today's evaluation that is 10/29/2024, Patient is afebrile this morning patient denies having any chest pain shortness of breath or cough, the patient is currently on room air, patient denies any abdominal pain no diarrhea no nausea no vomiting. No new lab has been obtained today blood culture repeat has been negative Objective - Vital Signs Vital signs: Vital Signs Temp 97.8 F 10/29/24 06:54 Pulse 60 10/29/24 06:54 Resp 20 10/29/24 06:54 BP 186/92 10/29/24 06:54 Pulse Ox 94 L 10/29/24 06:54 FiO2 Intake & Output 10/28/24 10/29/24 10/29/24 18:59 06:59 18:59 Output Total 1000 980 600 Balance -1000 -980 -600 Weight 88.5 kg Output: Urine 1000 980 600 Other: Voiding Method Urinal Toilet Toilet Urinal Urinal - Exam GENERAL DESCRIPTION: An elderly male lying in bed in no distress RESPIRATORY SYSTEM: Unlabored breathing , decreased breath sounds at bases HEART: S1 S2 regular rate and rhythm , ABDOMEN: Soft , no tenderness EXTREMITIES: No edema feet - Labs CBC & Chem 7: 10/28/24 02:56 10/28/24 02:56 Labs: Abnormal Lab Results - Last 24 Hours (Table) 10/28/24 10/28/24 10/29/24 Range/Units 16:27 20:41 11:25 POC Glucose (mg/dL) 148 H 217 H 113 H (70-110) mg/dL Assessment and Plan (1) Infection due to ESBL-producing Escherichia coli Current Visit: Yes Status: Acute Code(s): A49.8 - OTHER BACTERIAL INFECTIONS OF UNSPECIFIED SITE; Z16.12 - EXTENDED SPECTRUM BETA LACTAMASE (ESBL) RESISTANCE SNOMED Code(s): 897307437 (2) Sepsis Current Visit: Yes Status: Acute Code(s): A41.9 - SEPSIS, UNSPECIFIED ORGANISM SNOMED Code(s): 68414943 (3) UTI (urinary tract infection) Current Visit: Yes Status: Acute Code(s): N39.0 - URINARY TRACT INFECTION, SITE NOT SPECIFIED SNOMED Code(s): 18005211 (4) Bacteremia Current Visit: Yes Status: Acute Code(s): R78.81 - BACTEREMIA SNOMED Code(s): 9594038 Plan: 1patient presented to hospital with sepsis in this patient who did have fever tachycardia elevated white count elevated lactic acid meeting currently for SIRS /sepsis source is likely urinary in this patient who did have a 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 coli treated with oral antibiotic more likely dealing with the same pathogen. 2history of renal transplant on immunosuppressive 3patient did have a ESBL E. coli bacteremia source is likely UTI, ultrasound negative for any obstructive uropathy 4patient blood culture repeat has been negative he did have midline placement currently waiting for senior living placement for IV antibiotics, total duration of Invanz 1 g daily would be 2 weeks including the days he has received here Dictation was produced using [employer] dictation software. please excuse any grammatical, word or spelling errors. Time with Patient: Less than 30
[2024-10-29 16:21] VITALS: BMI 29.6
[2024-10-29 16:25] LABS: Glucose,Whole Blood 161 mg/dL (70-110)
[2024-10-29 20:35] LABS: Glucose,Whole Blood 192 mg/dL (70-110)
[2024-10-30 06:10] LABS: Glucose,Whole Blood 80 mg/dL (70-110)
[2024-10-30] MEDS: amLODIPine 5 MG TAB PO SCH (08:55)
[2024-10-30] MEDS: predniSONE 5 MG TAB PO SCH (08:57)
[2024-10-30 11:23] LABS: Glucose,Whole Blood 92 mg/dL (70-110)
--- NOTE | 2024-10-30 11:53 | P.PN ---
Subjective Patient is seen in follow-up for acute allograft dysfunction. GFR back to baseline. Resting in bed. No active complaints. Vital signs are stable. General: No acute distress. HEENT: Head exam is unremarkable. LUNGS: No audible rhonchi or wheezes. HEART: Rate and Rhythm are regular. ABDOMEN: Nontender. EXTREMITITES: No edema. Objective - Vital Signs Vital signs: Vital Signs Temp 97.7 F 10/30/24 07:33 Pulse 60 10/30/24 07:33 Resp 18 10/30/24 07:33 BP 175/81 10/30/24 07:33 Pulse Ox 98 10/30/24 07:33 FiO2 Intake & Output 10/29/24 10/30/24 10/30/24 18:59 06:59 18:59 Output Total 1600 600 Balance -1600 -600 Weight 88.5 kg 88.5 kg Output: Urine 1600 600 Other: Voiding Method Toilet Toilet Urinal Urinal # Voids 1 - Labs CBC & Chem 7: 10/28/24 02:56 10/28/24 02:56 Labs: Abnormal Lab Results - Last 24 Hours (Table) 10/29/24 10/29/24 Range/Units 16:23 20:34 POC Glucose (mg/dL) 161 H 192 H (70-110) mg/dL Microbiology - Last 24 Hours (Table) 10/24/24 04:26 Blood Culture - Final Blood Assessment and Plan Plan: Assessment: 1. Acute allograft dysfunction secondary to ATN secondary to severe sepsis. Creatinine peaked at 2.16 this admission and improved to 1.2 dated October 28, 2024. Kidney ultrasound showed no hydronephrosis of the transplant kidney. 2. Status post donor renal allograft in 2002. 3. 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 4. Severe sepsis secondary to E. coli bacteremia on antibiotics. 5. Diabetes mellitus. 6. Metabolic acidosis secondary to acute kidney injury status post IV bicarb. Improved. 7. Hypertension with chronic kidney disease. Plan: Tacrolimus level 8.0 dated October 24, 2024. Resume CellCept. Maintain prednisone. Maintain tacrolimus. Amlodipine added October 29, 2024. Add scheduled hydralazine 25 mg 3 times daily. Follow-up outpatient 1 week postdischarge.
[2024-10-30] MEDS: hydrALAZINE HCL 25 MG TAB PO SCH (15:02)
[2024-10-30 16:36] LABS: Glucose,Whole Blood 145 mg/dL (70-110)
[2024-10-30 20:48] LABS: Glucose,Whole Blood 170 mg/dL (70-110)
[2024-10-31 05:58] LABS: Glucose,Whole Blood 73 mg/dL (70-110)
--- NOTE | 2024-10-31 11:20 | P.PN ---
Subjective Patient is seen in follow-up for acute allograft dysfunction. GFR back to baseline. Resting in bed. No active complaints. Vital signs are stable. General: No acute distress. HEENT: Head exam is unremarkable. LUNGS: No audible rhonchi or wheezes. HEART: Rate and Rhythm are regular. ABDOMEN: Nontender. EXTREMITITES: No edema. Objective - Vital Signs Vital signs: Vital Signs Temp 97.8 F 10/31/24 07:15 Pulse 59 L 10/31/24 07:15 Resp 17 10/31/24 07:15 BP 155/79 10/31/24 07:15 Pulse Ox 95 10/31/24 07:15 FiO2 Intake & Output 10/30/24 10/31/24 10/31/24 18:59 06:59 18:59 Weight 90.5 kg Other: Voiding Method Urinal # Voids 1 2 - Labs CBC & Chem 7: 10/28/24 02:56 10/28/24 02:56 Labs: Abnormal Lab Results - Last 24 Hours (Table) 10/30/24 10/30/24 Range/Units 16:35 20:47 POC Glucose (mg/dL) 145 H 170 H (70-110) mg/dL Assessment and Plan Plan: Assessment: 1. Acute allograft dysfunction secondary to ATN secondary to severe sepsis. Creatinine peaked at 2.16 this admission and improved to 1.2 dated October 28, 2024. Kidney ultrasound showed no hydronephrosis of the transplant kidney. 2. Status post donor renal allograft in 2002. 3. 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 4. Severe sepsis secondary to E. coli bacteremia on antibiotics. 5. Diabetes mellitus. 6. Metabolic acidosis secondary to acute kidney injury status post IV bicarb. Improved. 7. Hypertension with chronic kidney disease. Plan: Tacrolimus level 8.0 dated October 24, 2024. Maintain CellCept. Maintain prednisone. Maintain tacrolimus. Amlodipine added October 29, 2024. Increase dose of hydralazine to 50 mg Follow-up outpatient 1 week postdischarge.
[2024-10-31 11:30] LABS: Glucose,Whole Blood 98 mg/dL (70-110)
[2024-10-31 13:08] LABS: Basophils # (A) 0.08 10*3/uL (0.00-0.10); Eosinophils # (A) 0.36 10*3/uL (0.04-0.35); Eosinophils % (A) 4.3 %; HCT 37.8 % (39.6-50.0); HGB 12.1 g/dL (13.0-17.0); Immature Platelet Fraction 2.7 % (1.1-6.1); Lymphocytes # (A) 1.15 10*3/uL (0.90-5.00); Lymphocytes % (A) 13.9 %; MCH 28.9 pg (27.0-32.0); MCV 90.2 fL (80.0-97.0); Mean Platelet Volume 10.1 fL (9.5-12.2); Monocytes # (A) 0.79 10*3/uL (0.20-1.00); Monocytes % (A) 9.5 %; Neutrophils % (A) 70.1 %; Platelet Count 120 10*3/uL (140-440); RBC 4.19 10*6/uL (4.40-5.60); RDW 15.1 % (11.5-14.5); WBC 8.28 10*3/uL (4.50-10.00)
[2024-10-31 13:31] LABS: African American GFR (CKD) 78 (>60 ml/min/1.73 sqM); Anion Gap 5 mmol/L; Blood Urea Nitrogen 23 mg/dL (9-20); Calcium 8.2 mg/dL (8.4-10.2); Carbon Dioxide 26 mmol/L (22-30); Chloride 105 mmol/L (98-107); Glucose 101 mg/dL (74-99); Non-African American GFR(CKD) 68 (>60 ml/min/1.73 sqM); Potassium 4.2 mmol/L (3.5-5.1); Sodium 136 mmol/L (137-145)
--- NOTE | 2024-10-31 16:35 | P.PN ---
Subjective Progress Note Date: 10/30/24 Principal diagnosis: Reason for follow-up is sepsis and bacteremia Patient is a 84-year-old male with a past medical history significant for Atrial Fibrillation, Blood Disorder, Cancer, Diabetes Mellitus, Hearing Disorder / Deafness, Hyperlipidemia, Hypertension, Osteoarthritis (OA), Pneumonia, Prostate Disorder, Renal Disease, Thyroid Disorder, end-stage renal disease status post renal transplant 22 years ago presenting to the ER for evaluation of weakness, patient was noticed to be septic from urinary source prompted this consultation. Blood culture subsequently came back positive for ESBL E. coli. On today's evaluation that is 10/30/2024,the patient denies any fever or any chills, patient is breathing comfortably on room air, the patient denies chest pain shortness of breath and no significant cough, patient denies abdominal pain, no nausea vomiting or diarrhea. No new lab has been obtained today Objective - Vital Signs Vital signs: Vital Signs Temp 97.7 F 10/30/24 07:33 Pulse 60 10/30/24 07:33 Resp 18 10/30/24 07:33 BP 175/81 10/30/24 07:33 Pulse Ox 98 10/30/24 07:33 FiO2 Intake & Output 10/29/24 10/30/24 10/30/24 18:59 06:59 18:59 Output Total 1600 600 Balance -1600 -600 Weight 88.5 kg 88.5 kg Output: Urine 1600 600 Other: Voiding Method Toilet Toilet Urinal Urinal # Voids 1 - Exam GENERAL DESCRIPTION: An elderly male lying in bed in no distress RESPIRATORY SYSTEM: Unlabored breathing , decreased breath sounds at bases HEART: S1 S2 regular rate and rhythm , ABDOMEN: Soft , no tenderness EXTREMITIES: No edema feet - Labs CBC & Chem 7: 10/31/24 12:36 10/31/24 12:36 Labs: Abnormal Lab Results - Last 24 Hours (Table) 10/29/24 10/29/24 10/29/24 Range/Units 11:25 16:23 20:34 POC Glucose (mg/dL) 113 H 161 H 192 H (70-110) mg/dL Microbiology - Last 24 Hours (Table) 10/24/24 04:26 Blood Culture - Final Blood Assessment and Plan (1) Infection due to ESBL-producing Escherichia coli Current Visit: Yes Status: Acute Code(s): A49.8 - OTHER BACTERIAL INFECTIONS OF UNSPECIFIED SITE; Z16.12 - EXTENDED SPECTRUM BETA LACTAMASE (ESBL) RESISTANCE SNOMED Code(s): 528582796 (2) Sepsis Current Visit: Yes Status: Acute Code(s): A41.9 - SEPSIS, UNSPECIFIED ORGANISM SNOMED Code(s): 58661063 (3) UTI (urinary tract infection) Current Visit: Yes Status: Acute Code(s): N39.0 - URINARY TRACT INFECTION, SITE NOT SPECIFIED SNOMED Code(s): 84962376 (4) Bacteremia Current Visit: Yes Status: Acute Code(s): R78.81 - BACTEREMIA SNOMED Code(s): 9512245 Plan: 1patient presented to hospital with sepsis in this patient who did have fever tachycardia elevated white count elevated lactic acid meeting currently for SIRS/sepsis source is likely urinary in this patient who did have a 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 coli treated with oral antibiotic more likely dealing with the same pathogen. 2history of renal transplant on immunosuppressive 3patient did have a ESBL E. coli bacteremia source is likely UTI, ultrasound negative for any obstructive uropathy 4patient blood culture repeat has been negative he did have midline placement currently waiting for penitentiary placement for IV antibiotics, 5will continue with the Invanz 1 g daily and monitor clinical course closely Dictation was produced using [employer] dictation software. please excuse any grammatical, word or spelling errors. Time with Patient: Less than 30
--- NOTE | 2024-10-31 16:36 | P.PN ---
Subjective Progress Note Date: 10/31/24 Principal diagnosis: Reason for follow-up is sepsis and bacteremia Patient is a 84-year-old male with a past medical history significant for Atrial Fibrillation, Blood Disorder, Cancer, Diabetes Mellitus, Hearing Disorder / Deafness, Hyperlipidemia, Hypertension, Osteoarthritis (OA), Pneumonia, Prostate Disorder, Renal Disease, Thyroid Disorder, end-stage renal disease status post renal transplant 22 years ago presenting to the ER for evaluation of weakness, patient was noticed to be septic from urinary source prompted this consultation. Blood culture subsequently came back positive for ESBL E. coli. On today's evaluation that is 10/31/2024,the patient remains to be afebrile, patient is on room air not requiring supplemental oxygen and denies any shortness of breath no chest pain or cough.Patient denies having any nausea or vomiting, no abdominal pain and no diarrhea has been reported Patient did have a white count of 8.28, creatinine is 1.03 Objective - Vital Signs Vital signs: Vital Signs Temp 97.8 F 10/31/24 07:15 Pulse 59 L 10/31/24 07:15 Resp 17 10/31/24 07:15 BP 155/79 10/31/24 07:15 Pulse Ox 95 10/31/24 07:15 FiO2 Intake & Output 10/30/24 10/31/24 10/31/24 18:59 06:59 18:59 Weight 90.5 kg Other: Voiding Method Urinal # Voids 1 2 - Exam GENERAL DESCRIPTION: An elderly male lying in bed in no distress RESPIRATORY SYSTEM: Unlabored breathing , decreased breath sounds at bases HEART: S1 S2 regular rate and rhythm , ABDOMEN: Soft , no tenderness EXTREMITIES: No edema feet - Labs CBC & Chem 7: 10/31/24 12:36 10/31/24 12:36 Labs: Abnormal Lab Results - Last 24 Hours (Table) 10/30/24 10/30/24 Range/Units 16:35 20:47 POC Glucose (mg/dL) 145 H 170 H (70-110) mg/dL Assessment and Plan (1) Infection due to ESBL-producing Escherichia coli Current Visit: Yes Status: Acute Code(s): A49.8 - OTHER BACTERIAL INFECTIONS OF UNSPECIFIED SITE; Z16.12 - EXTENDED SPECTRUM BETA LACTAMASE (ESBL) RESISTANCE SNOMED Code(s): 850412548 (2) Sepsis Current Visit: Yes Status: Acute Code(s): A41.9 - SEPSIS, UNSPECIFIED ORGANISM SNOMED Code(s): 51603713 (3) UTI (urinary tract infection) Current Visit: Yes Status: Acute Code(s): N39.0 - URINARY TRACT INFECTION, SITE NOT SPECIFIED SNOMED Code(s): 09071145 (4) Bacteremia Current Visit: Yes Status: Acute Code(s): R78.81 - BACTEREMIA SNOMED Code(s): 3687299 Plan: 1patient presented to hospital with sepsis in this patient who did have fever tachycardia elevated white count elevated lactic acid meeting currently for S IRS/sepsis source is likely urinary in this patient who did have a 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 coli treated with oral antibiotic more likely dealing with the same pathogen. 2history of renal transplant on immunosuppressive 3patient did have a ESBL E. coli bacteremia source is likely UTI, ultrasound negative for any obstructive uropathy 4patient blood culture repeat has been negative he did have midline placement currently waiting for detention placement for IV antibiotics, by tomorrow the patient would have received 10-day course and still no chance of gaining into rehab may be able to go home and continue with the Invanz 1 g daily while inpatient Dictation was produced using [employer] dictation software. please excuse any grammatical, word or spelling errors. Time with Patient: Less than 30
[2024-10-31 16:39] LABS: Glucose,Whole Blood 172 mg/dL (70-110)
[2024-10-31] MEDS: hydrALAZINE HCL 50 MG TAB PO SCH (17:12)
[2024-10-31 21:08] LABS: Glucose,Whole Blood 166 mg/dL (70-110)
[2024-11-01 06:30] LABS: Glucose,Whole Blood 77 mg/dL (70-110)
--- NOTE | 2024-11-01 10:29 | P.PN ---
Subjective Patient is seen in follow-up for acute allograft dysfunction. GFR back to baseline. Resting in bed. No active complaints. Awaiting placement. Vital signs are stable. General: No acute distress. HEENT: Head exam is unremarkable. LUNGS: No audible rhonchi or wheezes. HEART: Rate and Rhythm are regular. ABDOMEN: Nontender. EXTREMITITES: No edema. Objective - Vital Signs Vital signs: Vital Signs Temp 97.7 F 11/01/24 06:49 Pulse 61 11/01/24 06:49 Resp 18 11/01/24 06:49 BP 178/100 11/01/24 06:49 Pulse Ox 94 L 11/01/24 06:49 FiO2 Intake & Output 10/31/24 11/01/24 11/01/24 18:59 06:59 18:59 Output Total 1550 Balance -1550 Weight 87.5 kg Output: Urine 1550 Other: Voiding Method Urinal # Voids 3 4 - Labs CBC & Chem 7: 10/31/24 12:36 10/31/24 12:36 Labs: Abnormal Lab Results - Last 24 Hours (Table) 10/31/24 10/31/24 10/31/24 Range/Units 12:36 12:36 16:37 RBC 4.19 L (4.40-5.60) 10*6/uL Hgb 12.1 L (13.0-17.0) g/dL Hct 37.8 L (39.6-50.0) % RDW 15.1 H (11.5-14.5) % Plt Count 120 L (140-440) 10*3/uL Immature Gran # 0.10 H (0.00-0.04) 10*3/uL Eosinophils # 0.36 H (0.04-0.35) 10*3/uL Sodium 136 L (137-145) mmol/L BUN 23 H (9-20) mg/dL Glucose 101 H (74-99) mg/dL POC Glucose (mg/dL) 172 H (70-110) mg/dL Calcium 8.2 L (8.4-10.2) mg/dL 10/31/24 Range/Units 21:06 RBC (4.40-5.60) 10*6/uL Hgb (13.0-17.0) g/dL Hct (39.6-50.0) % RDW (11.5-14.5) % Plt Count (140-440) 10*3/uL Immature Gran # (0.00-0.04) 10*3/uL Eosinophils # (0.04-0.35) 10*3/uL Sodium (137-145) mmol/L BUN (9-20) mg/dL Glucose (74-99) mg/dL POC Glucose (mg/dL) 166 H (70-110) mg/dL Calcium (8.4-10.2) mg/dL Assessment and Plan Plan: Assessment: 1. Acute allograft dysfunction secondary to ATN secondary to severe sepsis. Creatinine peaked at 2.16 this admission and improved to 1.03 dated October 31, 2024. Kidney ultrasound showed no hydronephrosis of the transplant kidney. 2. Status post donor renal allograft in 2002. 3. 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 4. Severe sepsis secondary to E. coli bacteremia on antibiotics. 5. Diabetes mellitus. 6. Metabolic acidosis secondary to acute kidney injury status post IV bicarb. Improved. 7. Hypertension with chronic kidney disease. Plan: Tacrolimus level 8.0 dated October 24, 2024. Maintain CellCept. Maintain prednisone. Maintain tacrolimus. Amlodipine added October 29, 2024. Increase dose to 10 mg. Follow-up outpatient 1 week postdischarge.
[2024-11-01 11:36] LABS: Glucose,Whole Blood 144 mg/dL (70-110)
[2024-11-01 14:19] VITALS: BP 173/84; PULSE 58; RESP 17; TEMP 97.6
--- NOTE | 2024-11-01 14:55 | P.PN ---
Subjective Progress Note Date: 11/01/24 Principal diagnosis: Reason for follow-up is sepsis and bacteremia Patient is a 84-year-old male with a past medical history significant for Atrial Fibrillation, Blood Disorder, Cancer, Diabetes Mellitus, Hearing Disorder / Deafness, Hyperlipidemia, Hypertension, Osteoarthritis (OA), Pneumonia, Prostate Disorder, Renal Disease, Thyroid Disorder, end-stage renal disease status post renal transplant 22 years ago presenting to the ER for evaluation of weakness, patient was noticed to be septic from urinary source prompted this consultation. Blood culture subsequently came back positive for ESBL E. coli. On today's evaluation that is 11/01/2024, the patient continues to be afebrile, the patient is on room air and breathing comfortably, the Pt denies having any c hest pain or cough, the patient denies having any abdominal pain no vomiting or any diarrhea has been reported by the nursing staff. Patient did not have a lab draw today his creatinine 1.03 yesterday blood culture repeat has been negative Objective - Vital Signs Vital signs: Vital Signs Temp 97.7 F 11/01/24 06:49 Pulse 61 11/01/24 06:49 Resp 18 11/01/24 06:49 BP 178/100 11/01/24 06:49 Pulse Ox 94 L 11/01/24 06:49 FiO2 Intake & Output 10/31/24 11/01/24 11/01/24 18:59 06:59 18:59 Output Total 1550 Balance -1550 Weight 87.5 kg Output: Urine 1550 Other: Voiding Method Urinal # Voids 3 4 - Exam GENERAL DESCRIPTION: An elderly male lying in bed in no distress RESPIRATORY SYSTEM: Unlabored breathing , decreased breath sounds at bases HEART: S1 S2 regular rate and rhythm , ABDOMEN: Soft , no tenderness EXTREMITIES: No edema feet - Labs CBC & Chem 7: 10/31/24 12:36 10/31/24 12:36 Labs: Abnormal Lab Results - Last 24 Hours (Table) 10/31/24 10/31/24 10/31/24 Range/Units 12:36 12:36 16:37 RBC 4.19 L (4.40-5.60) 10*6/uL Hgb 12.1 L (13.0-17.0) g/dL Hct 37.8 L (39.6-50.0) % RDW 15.1 H (11.5-14.5) % Plt Count 120 L (140-440) 10*3/uL Immature Gran # 0.10 H (0.00-0.04) 10*3/uL Eosinophils # 0.36 H (0.04-0.35) 10*3/uL Sodium 136 L (137-145) mmol/L BUN 23 H (9-20) mg/dL Glucose 101 H (74-99) mg/dL POC Glucose (mg/dL) 172 H (70-110) mg/dL Calcium 8.2 L (8.4-10.2) mg/dL 10/31/24 11/01/24 Range/Units 21:06 11:34 RBC (4.40-5.60) 10*6/uL Hgb (13.0-17.0) g/dL Hct (39.6-50.0) % RDW (11.5-14.5) % Plt Count (140-440) 10*3/uL Immature Gran # (0.00-0.04) 10*3/uL Eosinophils # (0.04-0.35) 10*3/uL Sodium (137-145) mmol/L BUN (9-20) mg/dL Glucose (74-99) mg/dL POC Glucose (mg/dL) 166 H 144 H (70-110) mg/dL Calcium (8.4-10.2) mg/dL Assessment and Plan (1) Infection due to ESBL-producing Escherichia coli Current Visit: Yes Status: Acute Code(s): A49.8 - OTHER BACTERIAL INFECTIONS OF UNSPECIFIED SITE; Z16.12 - EXTENDED SPECTRUM BETA LACTAMASE (ESBL) RESISTANCE SNOMED Code(s): 414799689 (2) Sepsis Current Visit: Yes Status: Acute Code(s): A41.9 - SEPSIS, UNSPECIFIED ORGANISM SNOMED Code(s): 06723037 (3) UTI (urinary tract infection) Current Visit: Yes Status: Acute Code(s): N39.0 - URINARY TRACT INFECTION, SITE NOT SPECIFIED SNOMED Code(s): 62977758 (4) Bacteremia Current Visit: Yes Status: Acute Code(s): R78.81 - BACTEREMIA SNOMED Code(s): 0382666 Plan: 1patient presented to hospital with sepsis in this patient who did have fever tachycardia elevated white count elevated lactic acid meeting currently for SIRS/sepsis source is likely urinary in this patient who did have a 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 coli treated with oral antibiotic more likely dealing with the same pathogen. 2history of renal transplant on immunosuppressive 3patient did have a ESBL E. coli bacteremia source is likely UTI, ultrasound negative for any obstructive uropathy 4patient blood culture repeat has been negative keeping in mind the patient is immunocompromise from his renal transplant medication we recommend a total of 2- week course of therapy for his bacteremia, will need only 4 more days on discharge this were discussed with SURVEYOR HELPER ROD for admitting team and communicated to the outpatient infusion clinic Dictation was produced using [employer] dictation software. please excuse any grammatical, word or spelling errors. Time with Patient: Less than 30
[2024-11-01 16:50] LABS: Glucose,Whole Blood 159 mg/dL (70-110)
[2024-11-01] MEDS ORDERED: amLODIPine 5 MG TAB PO SCH (21:00)
== END 2024-11-01 18:30 | disposition home health service (06) | DRG 871 ==
LOC: EC 08:23 → 3SCARD 10:27 → 4SSUR 10-23 12:30
PROVIDERS: ADMIT Family Medicine; ATTEND Family Medicine
DX: A41.51 Sepsis due to Escherichia coli [E. coli] (principal); G93.41 Metabolic encephalopathy; N17.0 Acute kidney failure with tubular necrosis; T86.19 Other complication of kidney transplant; E44.0 Moderate protein-calorie malnutrition; I38 Endocarditis, valve unspecified; E87.20 Acidosis, unspecified; D84.821 Immunodeficiency due to drugs; D69.3 Immune thrombocytopenic purpura; D63.1 Anemia in chronic kidney disease; C61 Malignant neoplasm of prostate; I50.32 Chronic diastolic (congestive) heart failure; I13.0 Hypertensive heart and chronic kidney disease with heart failure and stage 1 through stage 4 chronic kidney disease, or unspecified chronic kidney disease; F05 Delirium due to known physiological condition; E11.22 Type 2 diabetes mellitus with diabetic chronic kidney disease; N18.31 Chronic kidney disease, stage 3a; E03.9 Hypothyroidism, unspecified; F32.A Depression, unspecified; E66.9 Obesity, unspecified; M51.04 Intervertebral disc disorders with myelopathy, thoracic region; M51.06 Intervertebral disc disorders with myelopathy, lumbar region; N39.0 Urinary tract infection, site not specified; Z16.12 Extended spectrum beta lactamase (ESBL) resistance; E87.1 Hypo-osmolality and hyponatremia; R65.20 Severe sepsis without septic shock; Z79.4 Long term (current) use of insulin; E11.51 Type 2 diabetes mellitus with diabetic peripheral angiopathy without gangrene; E11.65 Type 2 diabetes mellitus with hyperglycemia; I48.0 Paroxysmal atrial fibrillation; E88.09 Other disorders of plasma-protein metabolism, not elsewhere classified; M51.369 Other intervertebral disc degeneration, lumbar region without mention of lumbar back pain or lower extremity pain; M48.061 Spinal stenosis, lumbar region without neurogenic claudication; H91.90 Unspecified hearing loss, unspecified ear; R29.6 Repeated falls; I25.10 Atherosclerotic heart disease of native coronary artery without angina pectoris; E78.5 Hyperlipidemia, unspecified; F41.9 Anxiety disorder, unspecified; W18.30XA Fall on same level, unspecified, initial encounter; Y83.0 Surgical operation with transplant of whole organ as the cause of abnormal reaction of the patient, or of later complication, without mention of misadventure at the time of the procedure; Z68.30 Body mass index [BMI] 30.0-30.9, adult; Z79.82 Long term (current) use of aspirin; Z79.890 Hormone replacement therapy; Z79.899 Other long term (current) drug therapy; Z79.52 Long term (current) use of systemic steroids; Z79.624 Long term (current) use of inhibitors of nucleotide synthesis; Z98.1 Arthrodesis status; Y92.003 Bedroom of unspecified non-institutional (private) residence as the place of occurrence of the external cause; Z86.12 Personal history of poliomyelitis; Z86.718 Personal history of other venous thrombosis and embolism; Z91.81 History of falling; Z86.19 Personal history of other infectious and parasitic diseases; Z79.621 Long term (current) use of calcineurin inhibitor; Z95.1 Presence of aortocoronary bypass graft; Z85.820 Personal history of malignant melanoma of skin; R06.89 Other abnormalities of breathing
CPT/HCPCS: 36410; 36415; 71046; 76770; 76937; 80048; 80053; 80197; 81001; 83036; 83605; 83735; 85025; 87040; 87077; 87186; 87636; 93005; 96361; 96365; 96367; 96375; 96376; 99291

== ENCOUNTER 2024-11-04 18:03 | Inpatient (IN) | payer MEDICARE ==
[2024-11-04 18:19] LABS: Glucose,Whole Blood 73 mg/dL (70-110)
--- NOTE | 2024-11-04 18:37 | ED ---
General Adult HPI - General Chief complaint: Fall Stated complaint: Fall Time Seen by Provider: 11/04/24 18:08 Source: EMS Mode of arrival: EMS Limitations: no limitations - History of Present Illness Initial comments: Dictation was produced using [employer] dictation software. please excuse any grammatical, word or spelling errors. Chief Complaint: 84-year-old male presents to the ER for generalized weakness and falls History of Present Illness: Patient is a 84-year-old male brought in by EMS. Patient has multiple comorbidities. He does not take anticoagulation medications. Patient is a poor historian. History obtained by EMS states that patient fell 2 times today. Unclear if there was loss of consciousness. Allegedly patient recovering from UTI. Patient did not qualify for [facility] admission and was at home. Family states that he is way too weak to be at home. The ROS documented in this emergency department record has been reviewed and confirmed by me. Those systems with pertinent positive or negative responses have been documented in the HPI. All other systems are other negative and/or noncontributory. - Related Data Home Medications Medication Instructions Recorded Confirmed Finasteride [Proscar] 5 mg PO DAILY 02/09/17 10/22/24 Tamsulosin HCl [Flomax] 0.4 mg PO DAILY 02/09/17 10/22/24 Multivitamins, Thera [Multivitamin 1 tab PO DAILY 12/31/18 10/22/24 (formulary)] Vit C/E/Zn/Coppr/Lutein/Zeaxan 1 cap PO HS 12/18/19 10/22/24 [Preservision Areds 2 Softgel] Pantoprazole [Protonix] 40 mg PO DAILY 12/28/19 10/22/24 Tacrolimus [Prograf] 1 mg PO BID 04/03/20 10/22/24 DULoxetine HCL [Cymbalta] 120 mg PO DAILY 12/01/20 10/22/24 Levothyroxine Sodium [Synthroid] 75 mcg PO DAILY 12/01/20 10/22/24 Aspirin 81 mg PO DAILY 07/12/21 10/22/24 QUEtiapine [SEROquel] 100 mg PO HS 07/12/21 10/22/24 Rosuvastatin Calcium [Crestor] 5 mg PO HS 07/12/21 10/22/24 Sodium Bicarbonate Tab 650 mg PO BID 07/12/21 10/22/24 rOPINIRole HCL [Requip] 1 mg PO HS 09/02/21 10/22/24 Eltrombopag Olamine [Promacta] 12.5 mg PO DAILY@0700 05/31/23 10/22/24 Ferrous Sulfate [Iron] 325 mg PO DAILY 03/18/24 10/22/24 Gabapentin [Neurontin] 400 mg PO HS 10/22/24 10/22/24 Metoprolol Tartrate [Lopressor] 100 mg PO BID 10/22/24 10/22/24 Vibegron [Gemtesa] 75 mg PO DAILY 10/22/24 10/22/24 hydrALAZINE HCL [Apresoline] 100 mg PO TID PRN 10/22/24 10/22/24 predniSONE 5 mg PO DAILY 10/22/24 10/22/24 Previous Rx's Medication Instructions Recorded Magnesium Oxide [Mag-Ox] 400 mg PO DAILY tab 06/07/23 Loperamide [Imodium] 2 mg PO QID PRN #24 cap 08/09/23 mycophenolate mofetiL [Cellcept] 250 mg PO BID #0 08/09/23 Ertapenem [INVanz] 1 gm IVPB Q24H #10 each 10/27/24 Nystatin 100,000 Unit/ml Susp 500,000 unit PO QID ml 10/28/24 [Mycostatin Oral Susp] Acetaminophen Tab [Tylenol] 650 mg PO Q6HR PRN tab 10/31/24 INSULIN LISPRO (HumaLOG) [humaLOG] 0 unit SQ AC-TID #10 ml 10/31/24 Insulin Glargine/Lixisenatide 20 units SQ DAILY #0 10/31/24 [Soliqua 100 Unit-33 Mcg/ml Pen] hydrALAZINE HCL [Apresoline] 50 mg PO TID #90 tab 10/31/24 Insulin Lispro [humaLOG Kwikpen] See Rx Instructions .ROUTE 11/01/24 .COMPLEX 30 Days #1 each amLODIPine [Norvasc] 5 mg PO BID #60 tab 11/01/24 Allergies Allergy/AdvReac Type Severity Reaction Status Date / Time morphine Allergy Severe Itching Verified 10/22/24 10:37 Review of Systems ROS Statement: Those systems with pertinent positive or pertinent negative responses have been documented in the HPI. ROS Other: All systems not noted in ROS Statement are negative. 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 Left kidney transplant 2002, parathyroid surgery, arthroscopy knee surgery, pericardiocentesis, cancer removed from left ear Past Anesthesia/Blood Transfusion Reactions: No Reported Reaction Past Psychological History: Anxiety, Depression Smoking Status: Never smoker Past Alcohol Use History: None Reported Past Drug Use History: None Reported - Past Family History Father Family Medical History: Deep Vein Thrombosis (DVT) Son(s) Family Medical History: Cancer Mother Family Medical History: Cancer Additional Family Medical History / Comment(s): . General Exam - General Exam Comments Initial Comments: PHYSICAL EXAM: General Impression: Alert and oriented x3, not in acute distress HEENT: Normocephalic atraumatic, extra-ocular movements intact, pupils equal and reactive to light bilaterally, mucous membranes moist. Cardiovascular: Heart regular rate and rhythm Chest: Able to complete full sentences, no retractions, no tachypnea Abdomen: abdomen soft, non-tender, non-distended, no organomegaly Musculoskeletal: Pulses present and equal in all extremities, no peripheral edema Motor: no focal deficits noted Neurological: CN II-XII grossly intact, no focal motor or sensory deficits noted Skin: Epidermal tear to the left elbow Psych: Normal affect and mood Limitations: no limitations Course Vital Signs 11/04/24 11/04/24 18:13 19:58 Temperature 97.6 F 97.6 F Pulse Rate 60 68 Respiratory 19 19 Rate Blood Pressure 141/69 152/94 O2 Sat by Pulse 95 96 Oximetry Medical Decision Making - Medical Decision Making Was pt. sent in by a medical professional or institution (, PA, LUMBER PILER OPERATOR, urgent care, hospital, or chcf...) When possible be specific @ -No Did you speak to anyone other than the patient for history (EMS, parent, family, police, friend...)? What history was obtained from this source @ -No Did you review nursing and triage notes (agree or disagree)? Why? @ -I reviewed and agree with nursing and triage notes Were old charts reviewed (outside hosp., previous admission, EMS record, old EKG, old radiological studies, urgent care reports/EKG's, chcf records)? Report findings @ -No old charts were reviewed Differential Diagnosis (chest pain, altered mental status, abdominal pain women, abdominal pain men, vaginal bleeding, musculoskeletal, weakness, fever, dyspnea, syncope, headache, dizziness, GI bleed, back pain, seizure, CVA, palpatations, mental health)? @ -Differential Weakness: Hypoglycemia, shock, sepsis, hyponatremia, anemia, infection, NC, ETOH, adverse medicine reaction, overdose, stroke, this is not meant to be an all-inclusive list. EKG interpreted by me (3pts min.). @ - X-rays interpreted by me (1pt min.). @ -Chest and pelvis x-ray shows no acute processes CT interpreted by me (1pt min.). @ -CT brain and C-spine shows no acute processes U/S interpreted by me (1pt. min.). @ -None done What testing was considered but not performed or refused? (CT, X-rays, U/S, labs)? Why? @ -None What meds were considered but not given or refused? Why? @ -None Was smoking cessation discussed for >3mins.? @ -No Were there social determinants of health that impacted care today? How? (Homelessness, low income, unemployed, alcoholism, drug addiction, transportation, low edu. Level, literacy, decrease access to med. care, halfway, rehab)? @ -No Was there de-escalation of care discussed even if they declined (Discuss DNR or withdrawal of care, Hospice)? DNR status @ -No What co-morbidities impacted this encounter? (DM, HTN, Smoking, COPD, CAD, Cancer, CVA, ARF, Chemo, Hep., AIDS, mental health diagnosis, sleep apnea, morbid obesity)? @ -Debility Was patient admitted / discharged? Hospital course, mention meds given and route, prescriptions, significant lab abnormalities, going to OR and other pertinent info. @ -84-year-old male with multiple comorbidities presents to the emergency department with worsening weakness and falls. Patient brought in from home by EMS. at the bedside states that patient is exceedingly weak and she is nervous that he might continue to fall at home. Vital signs are stable. Laboratory evaluation is within acceptable limits. Urinalysis negative. Imaging studies are negative. Given degree of debility and fall risk patient will be admitted with consultation to social work case management. Did you discuss the management of the patient with other professionals (professionals i.e. , PA, LUMBER PILER OPERATOR, lab, RT, psych nurse, pediatric social worker, payroll representative, teacher, global chief creative officer, human services case manager)? Give summary @ -Case discussed with hospitalist for admission Was critical care preformed (if so, how long)? @ -No Undiagnosed new problem with uncertain prognosis? @ -No Drug Therapy requiring intensive monitoring for toxicity (Heparin, Nitro, Insulin, Cardizem)? @ -No Were any procedures done? @ -No Diagnosis/symptom? Acute, or Chronic, or Acute on Chronic? Uncomplicated (without systemic symptoms) or Complicated (systemic symptoms)? @ -Gravely disabled Side effects of treatment? @ -No Exacerbation, Progression, or Severe Exacerbation? @ -No Poses a threat to life or bodily function? How? (Chest pain, USA, NC, pneumonia, PE, COPD, DKA, ARF, appy, cholecystitis, CVA, Diverticulitis, Homicidal, Suicidal, threat to staff... and all critical care pts) @ -yes - Lab Data Result diagrams: 11/04/24 18:59 11/04/24 18:59 Lab Results 11/04/24 11/04/24 11/04/24 Range/Units 18:18 18:59 18:59 WBC 11.31 H (4.50-10.00) 10*3/uL RBC 4.42 (4.40-5.60) 10*6/uL Hgb 12.8 L (13.0-17.0) g/dL Hct 38.7 L (39.6-50.0) % MCV 87.6 (80.0-97.0) fL MCH 29.0 (27.0-32.0) pg MCHC 33.1 (32.0-37.0) g/dL Plt Count 142 (140-440) 10*3/uL MPV 10.2 (9.5-12.2) fL Immature Gran % (Auto) 0.7 % Neutrophils % 83.2 % Lymphocytes % 8.3 % Monocytes % 6.5 % Eosinophils % 0.8 % Basophils % 0.5 % Immature Gran # 0.08 H (0.00-0.04) 10*3/uL Neutrophils # 9.40 H (1.80-7.70) 10*3/uL Lymphocytes # 0.94 (0.90-5.00) 10*3/uL Monocytes # 0.74 (0.20-1.00) 10*3/uL Eosinophils # 0.09 (0.04-0.35) 10*3/uL Basophils # 0.06 (0.00-0.10) 10*3/uL PT (10.0-12.5) sec INR (<1.2) APTT (22.0-30.0) sec Sodium 134 L (137-145) mmol/L Potassium 4.5 (3.5-5.1) mmol/L Chloride 104 (98-107) mmol/L Carbon Dioxide 25 (22-30) mmol/L Anion Gap 5 mmol/L BUN 25 H (9-20) mg/dL Creatinine 1.17 (0.66-1.25) mg/dL Est GFR (CKD-EPI)AfAm 67 (>60 ml/min/1.73 sqM) Est GFR (CKD-EPI)NonAf 58 (>60 ml/min/1.73 sqM) Glucose 66 L (74-99) mg/dL POC Glucose (mg/dL) 73 (70-110) mg/dL POC Glu Head Of Stock ID [place] Calcium 8.7 (8.4-10.2) mg/dL Urine Color Urine Appearance (Clear) Urine pH (5.0-8.0) Ur Specific [place] (1.001-1.035) Urine Protein (Negative) Urine Glucose (UA) (Negative) Urine Ketones (Negative) Urine Blood (Negative) Urine Nitrite (Negative) Urine Bilirubin (Negative) Urine Urobilinogen (<2.0) mg/dL Ur Leukocyte Esterase (Negative) 11/04/24 11/04/24 Range/Units 18:59 19:57 WBC (4.50-10.00) 10*3/uL RBC (4.40-5.60) 10*6/uL Hgb (13.0-17.0) g/dL Hct (39.6-50.0) % MCV (80.0-97.0) fL MCH (27.0-32.0) pg MCHC (32.0-37.0) g/dL Plt Count (140-440) 10*3/uL MPV (9.5-12.2) fL Immature Gran % (Auto) % Neutrophils % % Lymphocytes % % Monocytes % % Eosinophils % % Basophils % % Immature Gran # (0.00-0.04) 10*3/uL Neutrophils # (1.80-7.70) 10*3/uL Lymphocytes # (0.90-5.00) 10*3/uL Monocytes # (0.20-1.00) 10*3/uL Eosinophils # (0.04-0.35) 10*3/uL Basophils # (0.00-0.10) 10*3/uL PT 11.5 (10.0-12.5) sec INR 1.1 (<1.2) APTT 24.2 (22.0-30.0) sec Sodium (137-145) mmol/L Potassium (3.5-5.1) mmol/L Chloride (98-107) mmol/L Carbon Dioxide (22-30) mmol/L Anion Gap mmol/L BUN (9-20) mg/dL Creatinine (0.66-1.25) mg/dL Est GFR (CKD-EPI)AfAm (>60 ml/min/1.73 sqM) Est GFR (CKD-EPI)NonAf (>60 ml/min/1.73 sqM) Glucose (74-99) mg/dL POC Glucose (mg/dL) (70-110) mg/dL POC Glu Head Of Stock ID Calcium (8.4-10.2) mg/dL Urine Color Yellow Urine Appearance Clear (Clear) Urine pH 6.5 (5.0-8.0) Ur Specific [place] 1.010 (1.001-1.035) Urine Protein Trace H (Negative) Urine Glucose (UA) Negative (Negative) Urine Ketones Negative (Negative) Urine Blood Negative (Negative) Urine Nitrite Negative (Negative) Urine Bilirubin Negative (Negative) Urine Urobilinogen <2.0 (<2.0) mg/dL Ur Leukocyte Esterase Negative (Negative) Disposition Clinical Impression: Gravely disabled Disposition: ADMITTED IP TO THIS [facility] Condition: Fair Referrals: Narinder Rosenberg DO [Primary Care Provider] - 1-2 days Decision Time: 20:42
[2024-11-04 19:10] LABS: Basophils # (A) 0.06 10*3/uL (0.00-0.10); Basophils % (A) 0.5 %; Eosinophils # (A) 0.09 10*3/uL (0.04-0.35); Eosinophils % (A) 0.8 %; HCT 38.7 % (39.6-50.0); HGB 12.8 g/dL (13.0-17.0); Lymphocytes # (A) 0.94 10*3/uL (0.90-5.00); Lymphocytes % (A) 8.3 %; MCHC 33.1 g/dL (32.0-37.0); MCV 87.6 fL (80.0-97.0); Mean Platelet Volume 10.2 fL (9.5-12.2); Monocytes # (A) 0.74 10*3/uL (0.20-1.00); Monocytes % (A) 6.5 %; Neutrophils % (A) 83.2 %; Platelet Count 142 10*3/uL (140-440); RBC 4.42 10*6/uL (4.40-5.60); RDW 14.7 % (11.5-14.5); WBC 11.31 10*3/uL (4.50-10.00)
[2024-11-04 19:25] LABS: INR 1.1 (<1.2); Partial Thromboplastin Time 24.2 sec (22.0-30.0); Prothrombin Time 11.5 sec (10.0-12.5)
--- NOTE | 2024-11-04 19:27 | XR ---
EXAMINATION TYPE: XR chest 2V DATE OF EXAM: 11/04/2024 7:10 PM COMPARISON: Chest radiographs from 10/22/2024. CLINICAL INDICATION: Male, 84 years old with history of fall; TECHNIQUE: XR chest 2V Frontal and lateral views of the chest. FINDINGS: Lungs/Pleura: There is no evidence of pleural effusion, focal consolidation, or pneumothorax. Pulmonary vascularity: Pulmonary vascular congestion. Heart/mediastinum: Cardiomediastinal silhouette is enlarged. Musculoskeletal: No acute osseous pathology. Electronic device projects over the heart on lateral vie w not clearly seen on frontal view of unclear etiology. IMPRESSION: Cardiomegaly and mild pulmonary vascular congestion. Correlate with BNP for congestive heart failure. [facility], , 11/04/2024 7:25 PM
--- NOTE | 2024-11-04 19:28 | XR ---
EXAMINATION TYPE: XR pelvis AP view DATE OF EXAM: 11/04/2024 7:10 PM COMPARISON: None CLINICAL INDICATION: Male, 84 years old with history of fall; pain TECHNIQUE: XR pelvis AP view, examined in a single projection. FINDINGS: There is no evidence of fracture or dislocation. There is no soft tissue abnormality. No a bnormal calcifications are present. Fixation hardware in the spine appears intact. Multilevel degener ative changes of the lower spine. The hips appear intact. Osteophyte formation of the superior acetabulum bilaterally with mild joint space narrowing. IMPRESSION: 1. No acute osseous pathology. 2. Mild to moderate at degeneration changes. 3. Post surgical changes spine appear intact. [facility], , 11/04/2024 7:26 PM
[2024-11-04 19:47] LABS: African American GFR (CKD) 67 (>60 ml/min/1.73 sqM); Anion Gap 5 mmol/L; Blood Urea Nitrogen 25 mg/dL (9-20); Calcium 8.7 mg/dL (8.4-10.2); Carbon Dioxide 25 mmol/L (22-30); Chloride 104 mmol/L (98-107); Glucose 66 mg/dL (74-99); Non-African American GFR(CKD) 58 (>60 ml/min/1.73 sqM); Potassium 4.5 mmol/L (3.5-5.1); Sodium 134 mmol/L (137-145)
[2024-11-04 20:06] LABS: Appearance,Urine Clear (Clear); Bilirubin,Urine Negative (Negative); Blood,Urine Negative (Negative); Color,Urine Yellow; Glucose,Urine (UA) Negative (Negative); Ketones,Urine Negative (Negative); Leukocyte Esterase,Urine Negative (Negative); Nitrite,Urine Negative (Negative); PH, Urine 6.5 (5.0-8.0); Protein,Urine Trace (Negative); Urobilinogen,Urine <2.0 mg/dL (<2.0)
--- NOTE | 2024-11-04 20:08 | CT ---
EXAMINATION TYPE: CT brain cspine wo con DATE OF EXAM: 11/04/2024 7:24 PM COMPARISON: 08-12. CLINICAL INDICATION: Male, 84 years old with history of fall; Fall., pain TECHNIQUE: Brain: Multiple axial CT images of the brain were obtained without IV contrast. Cspine: Axial CT images from the skull base to the inferior aspect of T2 we obtained without intraven ous contrast. Coronal and sagittal reformatted images were also reviewed. . CT DLP: 1487.1 mGycm, Automated exposure control for dose reduction was used. FINDINGS: Brain: Extra-axial spaces: No abnormal extra-axial fluid collections. Ventricular system: Within normal limits Cerebral parenchyma: No acute intraparenchymal hemorrhage or mass effect. The thompson-white junction is well differentiated. Cerebellum: Unremarkable. Mass effect: No evidence of midline shift. Intracranial vasculature: Atherosclerotic calcifications of the intracranial vessels. Soft tissues: Normal. Calvarium/osseous structures: No depressed skull fracture. Paranasal sinuses and mastoid air cells: Completely opacified left maxillary sinus. Visualized orbits: The lenses are surgically removed from the globes. Cervical spine: Fracture: None. Osseous structures: Multilevel degenerative disc disease changes with endplate spurring and disc oste ophyte complex's. Vertebral alignment: Within normal limits. Spinal canal/Neural Foramina: Disc osteophyte complexes at C4-C5 and C5-C6 with at least mild spinal canal stenosis. Facet joint uncovertebral joint arthropathy scattered throughout the cervical spine w ith varying degrees of neural foraminal stenosis. Neck soft tissues: Prevertebral soft tissues are within normal limits. Other: The airway is patent. Atherosclerosis of the carotid bifurcations. IMPRESSION: 1. No acute intracranial process. 2. Nonspecific white matter changes, likely secondary to chronic small vessel ischemic disease. 3. No evidence of cervical spine fracture. 4. Moderate multilevel degenerative disc disease. 5. Complete opacification of the left maxillary sinus. [facility], , 11/04/2024 8:06 PM
[2024-11-04] MEDS ORDERED: NALOXONE 0.4 MG/ML 1 ML VIAL IV PRN (20:39)
[2024-11-04] MEDS: SODIUM CHLORIDE 0.9% 1,000 ML IV SCH (21:32)
[2024-11-04 21:37] LABS: Glucose,Whole Blood 64 mg/dL (70-110)
[2024-11-05 00:27] LABS: Glucose,Whole Blood 141 mg/dL (70-110)
[2024-11-05 02:23] LABS: Influenza A Not Detected (Not Detectd); Influenza B Not Detected (Not Detectd); RSV Not Detected (Not Detectd)
[2024-11-05] MEDS ORDERED: ACETAMINOPHEN TAB 325 MG TAB PO PRN (09:18)
[2024-11-05] MEDS ORDERED: hydrALAZINE HCL 50 MG TAB PO PRN (09:24)
[2024-11-05] MEDS ORDERED: LOPERAMIDE 2 MG CAP PO PRN (09:24)
[2024-11-05] MEDS ORDERED: DEXTROSE 50% SYRINGE 50 ML IVP PRN ×2 (09:26)
[2024-11-05] MEDS ORDERED: ERTAPENEM 1 GM VIAL IVPB SCH (09:30)
--- NOTE | 2024-11-05 10:04 | P.HPIM ---
History of Present Illness H&P Date: 11/05/24 Chief Complaint: Increasing weakness, falls x 2 This is a pleasant 84-year-old gentleman recently discharged on 11/01 with acute sepsis secondary to acute bacteremia molecular ID, E. coli ESBL suspect related to acute UTI with ESBL E. coli, failed outpatient treatment with nitrofurantoin, in a patient with history of previous ESBL E. coli , Morganella morganii UTIs. Preliminary blood cultures reported no growth. discharged on Invanz as per infectious disease. Attempted to obtain authorization for subacute rehab at discharge last week; insurance company would not authorize. Patient returns to the hospital, transferred by EMS status post increased weakness, 2 falls yesterday. Reports lower back pain. denies fevers or chills. Majority of the information obtained from EHR, significant other. patient is a vague historian, denies syncope, denies head trauma. Denies chest pain, palpitations or shortness of breath. CT brain /C-spine reported no acute intracranial process, nonspecific white matter changes likely secondary to chronic small vessel ischemic disease, no evidence of cervical spine fracture, moderate multilevel degenerative disc disease, complete opacification of left maxillary sinus. Pelvis x-ray reports no acute osseous pathology, mild to moderate degenerative changes, postsurgical changes spine appear intact afebrile, WBC 11.31, hemoglobin 12.8, platelets 142, INR 1.1, sodium 134, potassium 4.5, bicarb 25, BUN 25, creatinine 1.17. Blood sugars ranging from low 60s to 140s. UA reported trace protein. Viral studies negative. Chest x-ray reporting cardiomegaly, mild pulmonary vascular congestion. Review of Systems ROS Statement: Those systems with pertinent positive or pertinent negative responses have been documented in the HPI. ROS Other: All systems not noted in ROS Statement are negative. Past Medical History Past Medical History: Atrial Fibrillation, Blood Disorder, Coronary Artery Di sease (CAD), Cancer, Diabetes Mellitus, Hearing Disorder / Deafness, Hyperlipidemia, Hypertension, Osteoarthritis (OA), Pneumonia, Prostate Disorder, Renal Disease, Thyroid Disorder Additional Past Medical History / Comment(s): polio at 6, back pain, melanoma taken off of left ear & left shoulder, "slow growing cancer of prostate, being watched by Dr Dasilva." Hard of hearing, LOW PLATELETS, Jul 2023 UTI & pneumonia hospitalized at [facility] and went to [facility] for rehab; "old blood clot in right leg", orthostatic hypotension, frequent falls, uses walker History of Any Multi-Drug Resistant Organisms: ESBL Date of last positivie culture/infection: 10/09/24 MDRO Source:: urine Past Surgical History: Back Surgery, Coronary Bypass/CABG, Ear Surgery, Orthopedic Surgery Additional Past Surgical History / Comment(s): KYPHOPLASTY AND BX (NEG) 2021. Left kidney transplant 2002, parathyroid surgery, arthroscopy knee surgery, pericardiocentesis, cancer removed from left ear Past Anesthesia/Blood Transfusion Reactions: No Reported Reaction Past Psychological History: Anxiety, Depression Additional Psychological History / Comment(s): Pt resides with spouse. Smoking Status: Never smoker Past Alcohol Use History: None Reported Past Drug Use History: None Reported - Past Family History Father Family Medical History: Deep Vein Thrombosis (DVT) Son(s) Family Medical History: Cancer Mother Family Medical History: Cancer Additional Family Medical History / Comment(s): . Medications and Allergies Home Medications Medication Instructions Recorded Confirmed Type Finasteride [Proscar] 5 mg PO DAILY 02/09/17 11/04/24 History Tamsulosin HCl [Flomax] 0.4 mg PO DAILY 02/09/17 11/04/24 History Multivitamins, Thera [Multivitamin 1 tab PO DAILY 12/31/18 11/04/24 History (formulary)] Vit C/E/Zn/Coppr/Lutein/Zeaxan 1 cap PO HS 12/18/19 11/04/24 History [Preservision Areds 2 Softgel] Pantoprazole [Protonix] 40 mg PO DAILY 12/28/19 11/04/24 History Tacrolimus [Prograf] 1 mg PO BID 04/03/20 11/04/24 History DULoxetine HCL [Cymbalta] 120 mg PO DAILY 12/01/20 11/04/24 History Levothyroxine Sodium [Synthroid] 75 mcg PO DAILY 12/01/20 11/04/24 History Aspirin 81 mg PO DAILY 07/12/21 11/04/24 History QUEtiapine [SEROquel] 100 mg PO HS 07/12/21 11/04/24 History Rosuvastatin Calcium [Crestor] 5 mg PO HS 07/12/21 11/04/24 History Sodium Bicarbonate Tab 650 mg PO BID 07/12/21 11/04/24 History rOPINIRole HCL [Requip] 1 mg PO HS 09/02/21 11/04/24 History Eltrombopag Olamine [Promacta] 12.5 mg PO DAILY@0700 05/31/23 11/04/24 History Magnesium Oxide [Mag-Ox] 400 mg PO DAILY tab 06/07/23 11/04/24 Rx Loperamide [Imodium] 2 mg PO QID PRN #24 cap 08/09/23 11/04/24 Rx mycophenolate mofetiL [Cellcept] 250 mg PO BID #0 08/09/23 11/04/24 Rx Ferrous Sulfate [Iron] 325 mg PO DAILY 03/18/24 11/04/24 History Gabapentin [Neurontin] 400 mg PO HS 10/22/24 11/04/24 History Metoprolol Tartrate [Lopressor] 100 mg PO BID 10/22/24 11/04/24 History Vibegron [Gemtesa] 75 mg PO DAILY 10/22/24 11/04/24 History hydrALAZINE HCL [Apresoline] 100 mg PO TID PRN 10/22/24 11/04/24 History predniSONE 5 mg PO DAILY 10/22/24 11/04/24 History Ertapenem [INVanz] 1 gm IVPB Q24H #10 each 10/27/24 11/04/24 Rx Acetaminophen Tab [Tylenol] 650 mg PO Q6HR PRN tab 10/31/24 11/04/24 Rx Insulin Glargine/Lixisenatide 20 units SQ DAILY #0 10/31/24 11/04/24 Rx [Soliqua 100 Unit-33 Mcg/ml Pen] hydrALAZINE HCL [Apresoline] 50 mg PO TID #90 tab 10/31/24 11/04/24 Rx amLODIPine [Norvasc] 5 mg PO BID #60 tab 11/01/24 11/04/24 Rx Insulin Lispro [humaLOG Kwikpen] See Protocol SQ AC-TID 11/04/24 11/04/24 History Allergies Allergy/AdvReac Type Severity Reaction Status Date / Time morphine Allergy Severe Itching Verified 11/04/24 21:15 Physical Exam Vitals: Vital Signs Temp Pulse Pulse Resp BP BP Pulse Ox 11/05/24 08:15 98.7 F 85 17 190/96 0415/25 03:49 85 18 168/99 96 11/04/24 22:26 80 19 143/85 97 11/04/24 19:58 97.6 F 68 19 152/94 96 11/04/24 18:13 97.6 F 60 19 141/69 95 Intake and Output 11/04/24 11/05/24 11/05/24 22:59 06:59 14:59 Output Total 500 Balance -500 Output: Urine 500 Other: # Voids 1 Weight 90.718 kg 90.718 kg VITAL SIGNS: Reviewed GENERAL: FALSE PASS,Alert and oriented 3, Sitting up in bed, no acute distress HEENT: Normocephalic, Conjunctivae normal. eyes normal. NECK: Supple, No JVD. CARDIOVASCULAR: S1, S2 regular.systolic murmur RESPIRATION: Unlabored, Breath sounds diminished in the bases. ABDOMEN: Soft, nontender . No guarding. no masses palpable. +BS LEGS: No edema. no swelling. NERVOUS SYSTEM: Cranial N 2-12 grossly normal. No focal deficits. Skin: Warm and dry, no rash Results CBC & Chem 7: 11/04/24 18:59 11/04/24 18:59 Labs: Abnormal Lab Results - Last 24 Hours (Table) 11/04/24 11/04/24 11/04/24 Range/Units 18:59 18:59 19:57 WBC 11.31 H (4.50-10.00) 10*3/uL Hgb 12.8 L (13.0-17.0) g/dL Hct 38.7 L (39.6-50.0) % Immature Gran # 0.08 H (0.00-0.04) 10*3/uL Neutrophils # 9.40 H (1.80-7.70) 10*3/uL Sodium 134 L (137-145) mmol/L BUN 25 H (9-20) mg/dL Glucose 66 L (74-99) mg/dL POC Glucose (mg/dL) (70-110) mg/dL Urine Protein Trace H (Negative) 11/04/24 11/05/24 Range/Units 21:36 00:25 WBC (4.50-10.00) 10*3/uL Hgb (13.0-17.0) g/dL Hct (39.6-50.0) % Immature Gran # (0.00-0.04) 10*3/uL Neutrophils # (1.80-7.70) 10*3/uL Sodium (137-145) mmol/L BUN (9-20) mg/dL Glucose (74-99) mg/dL POC Glucose (mg/dL) 64 L 141 H (70-110) mg/dL Urine Protein (Negative) Thrombosis Risk Factor Assmnt - Choose All That Apply Any of the Below Risk Factors Present?: Yes Other Risk Factors: Yes Each Risk Factor Represents 3 Points: Age 75 years or older Thrombosis Risk Factor Assessment Total Risk Factor Score: 3 Thrombosis Risk Factor Assessment Level: Moderate Risk Assessment and Plan Assessment: Status post falls x 2, generalized weakness, medical debility, attempted to authorize patient for subacute rehab last week. Patient was discharged on 11/01/2024. Recently discharged on 11/01 with acute sepsis secondary to acute bacteremia molecular ID, E. coli ESBL suspect related to acute UTI with ESBL E. coli, failed outpatient treatment with nitrofurantoin, in a patient with history of previous ESBL E. coli , Morganella morganii UTIs. Preliminary blood cultures reported no growth. discharged on Invanz as per infectious disease. Acute leukocytosis, mild, secondary to the above Hypertension Renal transplant on chronic immunosuppression, Prograf, CellCept and prednisone Chronic renal failure stage IIIA, history of renal transplant, baseline creatinine 1.2-1.4. 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 Chest x-ray reports mild pulmonary congestion. Plan: Continue on current medication regimen ,monitoring and symptomatic treatment. Nephrology consulted for potential fluid volume overload in a renal transplant patient. Patient needs inpatient rehab. PT/OT and IPR consulted. Discharge planning discussed with social media marketer. Invanz resumed. patient was discharged on Invanz, near completion of previously ordered treatment; notified/consulted infectious disease. The impression and plan of care has been dictated as directed. : I performed a history and examination of this patient, discussed the same with the dictator. I agree with the dictator's note ,documented as a scribe. Any additional findings or plans will be noted.
[2024-11-05] MEDS: FERROUS SULFATE 325 MG TAB PO SCH (11:37)
[2024-11-05] MEDS: GEMTESA 75 MG PO SCH (11:37)
[2024-11-05] MEDS: TAMSULOSIN 0.4 MG CAP.ER.24H PO SCH (11:37)
[2024-11-05] MEDS: SODIUM BICARBONATE TAB 650 MG TAB PO SCH (11:37)
[2024-11-05] MEDS: LEVOTHYROXINE 75 MCG TAB PO SCH (11:38)
[2024-11-05] MEDS: FINASTERIDE 5 MG TAB PO SCH (11:38)
[2024-11-05] MEDS: amLODIPine 5 MG TAB PO SCH (11:38)
[2024-11-05] MEDS: hydrALAZINE HCL 50 MG TAB PO SCH (11:38)
[2024-11-05] MEDS: METOPROLOL TARTRATE 50 MG TAB PO SCH (11:38)
[2024-11-05] MEDS: MULTIVITAMINS, THERA 1 EACH TAB PO SCH (11:38)
[2024-11-05] MEDS: DULoxetine HCL 60 MG CAPSULE.DR PO SCH (11:38)
[2024-11-05] MEDS: ASPIRIN 81 MG PO SCH (11:38)
[2024-11-05] MEDS: PANTOPRAZOLE 40 MG TABLET PO SCH (11:38)
[2024-11-05] MEDS: TACROLIMUS 1 MG CAP PO SCH (11:39)
[2024-11-05] MEDS: predniSONE 5 MG TAB PO SCH (11:39)
[2024-11-05] MEDS: MAGNESIUM OXIDE 400 MG TAB PO SCH (11:39)
[2024-11-05] MEDS: ERTAPENEM 1 GM in SODIUM CHLORIDE 0.9% 50 ML IVPB SCH (11:40)
[2024-11-05 13:01] LABS: Glucose,Whole Blood 159 mg/dL (70-110)
[2024-11-05] MEDS: INSULIN LISPRO (HumaLOG) 100 UNIT/ML 10 mL VL SQ SCH (13:32)
--- NOTE | 2024-11-05 13:57 | P.CONS ---
History of Present Illness - Reason for Consult Consult date: 11/05/24 rehab recommendations - Chief Complaint Debility - History of Present Illness Mr Lobo is an 84 y/o male who lives with his in a single story home with 2-4 TAMIKO with right hand rail. RING SEWER, patient was ambulating with a 4ww, was mostly independent with ADLs, can assist if needed. He is able to drive but does most of the driving. Supportive spouse, daughter and son. Patient presented to the hospital on 11/04/24 due to weakness and falls. Patient was recently at the hospital and discharged after a stay for acute urosepsis and bacteremia with ESBL E coli in urine. He was started on abx. He was evaluated for rehab but apparently did not qualify for [facility] and was sent home with [facility] homecare. Patient returned back to the hospital after he was unable to be successful at home. He had multiple falls and felt weak, unable to get up by himself. EMS had to assist him up. He sustained skin tears to both arms. PM&R consulted for rehab recommendations. Patient evaluated by therapies, patient requiring min assist for bed mobility, transfers, gait 75 feet with walker, lower body dressing and bathing min assist. 11/05/24: Patient states he is doing okay, but feels very worn down and tired. He feels weak and that he cannot return home at this time until he has had some therapy. He denies current chest pain, shortness of breath, and abdominal pain. He had a bowel movement 2 days ago. 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 He denies issues with urination. Patient is highly interested in inpatient rehab. Discussed with primary team and will submit for authorization for patient to come to [facility] IPR. notified patient and primary team it can take 24-48 hrs to hear back from insurance company. Review of Systems Reviewed, as above in HPI Past Medical History Past Medical History: Atrial Fibrillation, Blood Disorder, Coronary Artery Disease (CAD), Cancer, Diabetes Mellitus, Hearing Disorder / Deafness, Hyperlipidemia, Hypertension, Osteoarthritis (OA), Pneumonia, Prostate Disorder, Renal Disease, Thyroid Disorder Additional Past Medical History / Comment(s): polio at 6, back pain, melanoma taken off of left ear & left shoulder, "slow growing cancer of prostate, being watched by Dr Dasilva." Hard of hearing, LOW PLATELETS, Jul 2023 UTI & pneumonia hospitalized at [facility] and went to [facility] for rehab; "old blood clot in right leg", orthostatic hypotension, frequent falls, uses walker History of Any Multi-Drug Resistant Organisms: ESBL Year Discovered:: 10/09/24 MDRO Source:: urine Past Surgical History: Back Surgery, Coronary Bypass/CABG, Ear Surgery, Orthopedic Surgery Additional Past Surgical History / Comment(s): KYPHOPLASTY AND BX (NEG) 2021. Left kidney transplant 2002, parathyroid surgery, arthroscopy knee surgery, pericardiocentesis, cancer removed from left ear Past Anesthesia/Blood Transfusion Reactions: No Reported Reaction Past Psychological History: Anxiety, Depression Additional Psychological History / Comment(s): Pt resides with spouse. Smoking Status: Never smoker Past Alcohol Use History: None Reported Past Drug Use History: None Reported - Past Family History Father Family Medical History: Deep Vein Thrombosis (DVT) Son(s) Family Medical History: Cancer Mother Family Medical History: Cancer Additional Family Medical History / Comment(s): . Medications and Allergies Home Medications Medication Instructions Recorded Confirmed Type Finasteride [Proscar] 5 mg PO DAILY 02/09/17 11/04/24 History Tamsulosin HCl [Flomax] 0.4 mg PO DAILY 02/09/17 11/04/24 History Multivitamins, Thera [Multivitamin 1 tab PO DAILY 12/31/18 11/04/24 History (formulary)] Vit C/E/Zn/Coppr/Lutein/Zeaxan 1 cap PO HS 12/18/19 11/04/24 History [Preservision Areds 2 Softgel] Pantoprazole [Protonix] 40 mg PO DAILY 12/28/19 11/04/24 History Tacrolimus [Prograf] 1 mg PO BID 04/03/20 11/04/24 History DULoxetine HCL [Cymbalta] 120 mg PO DAILY 12/01/20 11/04/24 History Levothyroxine Sodium [Synthroid] 75 mcg PO DAILY 12/01/20 11/04/24 History Aspirin 81 mg PO DAILY 07/12/21 11/04/24 History QUEtiapine [SEROquel] 100 mg PO HS 07/12/21 11/04/24 History Rosuvastatin Calcium [Crestor] 5 mg PO HS 07/12/21 11/04/24 History Sodium Bicarbonate Tab 650 mg PO BID 07/12/21 11/04/24 History rOPINIRole HCL [Requip] 1 mg PO HS 09/02/21 11/04/24 History Eltrombopag Olamine [Promacta] 12.5 mg PO DAILY@0700 05/31/23 11/04/24 History Magnesium Oxide [Mag-Ox] 400 mg PO DAILY tab 06/07/23 11/04/24 Rx Loperamide [Imodium] 2 mg PO QID PRN #24 cap 08/09/23 11/04/24 Rx mycophenolate mofetiL [Cellcept] 250 mg PO BID #0 08/09/23 11/04/24 Rx Ferrous Sulfate [Iron] 325 mg PO DAILY 03/18/24 11/04/24 History Gabapentin [Neurontin] 400 mg PO HS 10/22/24 11/04/24 History Metoprolol Tartrate [Lopressor] 100 mg PO BID 10/22/24 11/04/24 History Vibegron [Gemtesa] 75 mg PO DAILY 10/22/24 11/04/24 History hydrALAZINE HCL [Apresoline] 100 mg PO TID PRN 10/22/24 11/04/24 History predniSONE 5 mg PO DAILY 10/22/24 11/04/24 History Ertapenem [INVanz] 1 gm IVPB Q24H #10 each 10/27/24 11/04/24 Rx Acetaminophen Tab [Tylenol] 650 mg PO Q6HR PRN tab 10/31/24 11/04/24 Rx Insulin Glargine/Lixisenatide 20 units SQ DAILY #0 10/31/24 11/04/24 Rx [Soliqua 100 Unit-33 Mcg/ml Pen] hydrALAZINE HCL [Apresoline] 50 mg PO TID #90 tab 10/31/24 11/04/24 Rx amLODIPine [Norvasc] 5 mg PO BID #60 tab 11/01/24 11/04/24 Rx Insulin Lispro [humaLOG Kwikpen] See Protocol SQ AC-TID 11/04/24 11/04/24 History Allergies Allergy/AdvReac Type Severity Reaction Status Date / Time morphine Allergy Severe Itching Verified 11/04/24 21:15 Physical Exam Vitals: Vital Signs Temp Pulse Pulse Resp BP BP Pulse Ox 11/05/24 08:15 98.7 F 85 17 190/96 11/05/24 03:49 85 18 168/99 96 11/04/24 22:26 80 19 143/85 97 11/04/24 19:58 97.6 F 68 19 152/94 96 11/04/24 18:13 97.6 F 60 19 141/69 95 Intake and Output 11/04/24 11/05/24 11/05/24 22:59 06:59 14:59 Output Total 500 Balance -500 Output: Urine 500 Other: # Voids 1 Weight 90.718 kg 90.718 kg General: WDWN elderly male, alert laying in bed, NAD, appears tired HEENT: head normocephalic, atraumatic; moist mucous membranes, external ears intact with hearing intact to conversational speech. Glasses on CV:No acute cardiac distress Lungs: Even and non labored respirations on RA Abdomen: soft, NT, ND MSK: full ROM bilateral UE and LEs MMT: B/L SABD 5-/5, EF/EE 5/5, HG and FABD 5/5; B/L HF 4-/5, KE 5/5, DF 5/5 Neuro: Alert, oriented x 4, speech is clear and fluent CN 2-12 grossly intact Sensation intact to light touch bilateral UE and LEs except decreased in stocking distribution Psych: mood calm, affect appropriate Extremities: calves supple, non tender, trace LE edema Skin: multiple areas of ecchymosis to bilateral UE, bilateral arm skin tears with kerlix dressing, PIV Results CBC & Chem 7: 11/04/24 18:59 11/04/24 18:59 Labs: Abnormal Lab Results - Last 24 Hours (Table) 11/04/24 11/04/24 11/04/24 Range/Units 18:59 18:59 19:57 WBC 11.31 H (4.50-10.00) 10*3/uL Hgb 12.8 L (13.0-17.0) g/dL Hct 38.7 L (39.6-50.0) % Immature Gran # 0.08 H (0.00-0.04) 10*3/uL Neutrophils # 9.40 H (1.80-7.70) 10*3/uL Sodium 134 L (137-145) mmol/L BUN 25 H (9-20) mg/dL Glucose 66 L (74-99) mg/dL POC Glucose (mg/dL) (70-110) mg/dL Urine Protein Trace H (Negative) 11/04/24 11/05/24 Range/Units 21:36 00:25 WBC (4.50-10.00) 10*3/uL Hgb (13.0-17.0) g/dL Hct (39.6-50.0) % Immature Gran # (0.00-0.04) 10*3/uL Neutrophils # (1.80-7.70) 10*3/uL Sodium (137-145) mmol/L BUN (9-20) mg/dL Glucose (74-99) mg/dL POC Glucose (mg/dL) 64 L 141 H (70-110) mg/dL Urine Protein (Negative) Assessment and Plan Assessment: # Debility and falls secondary to subacute urosepsis -abx per SEP -therapies #Fall -fall precautions #Recent ESBL Ecoli UTI #Recent Bacteremia #Impaired gait and ADLs secondary to above #Atrial Fibrillation #DVT Proph -per SEP #Bowel/bladder -regimen per SEP #Comorbidities: Coronary Artery Disease (CAD), Cancer, Diabetes Mellitus, Hearing Disorder / Deafness, Hyperlipidemia, Hypertension, Osteoarthritis (OA), Pneumonia, Prostate Disorder, Renal Disease, Thyroid Disorder, polio at 6, back pain, melanoma taken off of left ear & left shoulder # Your medical dx and management Dispo: Patient was evaluated by therapies, is performing below his baseline level of function.Given his recent discharge and failure to be successful at home at this time, recommending a structured rehab facility for continued therapies and closer monitoring. He is motivated and has good social support. Recommending IPR for this patient. Patient will need authorization from insurance. Patient's first choice would be IPR at [facility]. Liaison at [facility] aware. Discussed with Primary Team. Patient seen and examined in collaboration with Dr Sandoval Thank you for consulting our services.
[2024-11-05 17:14] LABS: Glucose,Whole Blood 149 mg/dL (70-110)
[2024-11-05 20:05] LABS: Glucose,Whole Blood 209 mg/dL (70-110)
[2024-11-05] MEDS: GABAPENTIN 400 MG CAP PO SCH (20:37)
[2024-11-05] MEDS: QUEtiapine 100 MG TAB PO SCH (20:38)
[2024-11-05] MEDS: VIT A,C & E-LUTEIN-MINERALS 1 EACH TAB PO SCH (20:38)
[2024-11-05] MEDS: ATORVASTATIN 10 MG TAB PO SCH (20:38)
[2024-11-05] MEDS: TEMAZEPAM 15 MG CAP PO SCH (22:47)
--- NOTE | 2024-11-05 23:09 | P.CONS ---
History of Present Illness - Reason for Consult Consult date: 11/05/24 Antibiotic management, ESBL Requesting physician: Florecita Lo - Chief Complaint Weakness and fall x 1 day - History of Present Illness Patient is a 84-year-old male with a past medical history significant for end-stage renal disease status post renal transplant, diabetes mellitus hypertension hyperlipidemia coronary artery disease atrial fibrillation with r ecent admission to the hospital with sepsis secondary to ESBL E. coli transplant nephritis and bacteremia blood culture repeat was negative patient was in the hospital for more than a week as he was waiting for possible transfer to rehab which was denied by insurance subsequently patient was discharged home and was getting IV Invanz in the outpatient setting however patient has been brought to the hospital after apparently the patient did fell down x 2 and was feeling weak patient denies any loss of consciousness or focal weakness and denies high-grade fever on presentation to the hospital the patient was afebrile and no fever have been recorded subsequently patient was not tachycardic hypotensive or hypoxic patient did have white count of 11.31 creatinine is 1.17 UA has been negative influenza RSV COVID testing has been negative patient did have a chest x-ray shows cardiomegaly pulm vascular congestion patient was started on Invanz infectious disease was consulted for further management of antibiotic therapy he also have x-ray of the pelvis did not show any bony abnormality Review of Systems Positive point and negatives has been mentioned in the HPI, complete review of systems was performed and all other systems are negative Past Medical History Past Medical History: Atrial Fibrillation, Blood Disorder, Coronary Artery Disease (CAD), Cancer, Diabetes Mellitus, Hearing Disorder / Deafness, Hyperlipidemia, Hypertension, Osteoarthritis (OA), Pneumonia, Prostate Disorder, Renal Disease, Thyroid Disorder Additional Past Medical History / Comment(s): polio at 6, back pain, melanoma ta may off of left ear & left shoulder, "slow growing cancer of prostate, being watched by Dr Dasilva." Hard of hearing, LOW PLATELETS, Jul 2023 UTI & pneumonia hospitalized at [facility] and went to [facility] for rehab; "old blood clot in right leg", orthostatic hypotension, frequent falls, uses walker History of Any Multi-Drug Resistant Organisms: ESBL Year Discovered:: 10/09/24 MDRO Source:: urine Past Surgical History: Back Surgery, Coronary Bypass/CABG, Ear Surgery, Orthopedic Surgery Additional Past Surgical History / Comment(s): KYPHOPLASTY AND BX (NEG) 2021. Left kidney transplant 2002, parathyroid surgery, arthroscopy knee surgery, pericardiocentesis, cancer removed from left ear Past Anesthesia/Blood Transfusion Reactions: No Reported Reaction Past Psychological History: Anxiety, Depression Additional Psychological History / Comment(s): Pt resides with spouse. Smoking Status: Never smoker Past Alcohol Use History: None Reported Past Drug Use History: None Reported - Past Family History Father Family Medical History: Deep Vein Thrombosis (DVT) Son(s) Family Medical History: Cancer Mother Family Medical History: Cancer Additional Family Medical History / Comment(s): . Medications and Allergies Home Medications Medication Instructions Recorded Confirmed Type Finasteride [Proscar] 5 mg PO DAILY 02/09/17 11/04/24 History Tamsulosin HCl [Flomax] 0.4 mg PO DAILY 02/09/17 11/04/24 History Multivitamins, Thera [Multivitamin 1 tab PO DAILY 12/31/18 11/04/24 History (formulary)] Vit C/E/Zn/Coppr/Lutein/Zeaxan 1 cap PO HS 12/18/19 11/04/24 History [Preservision Areds 2 Softgel] Pantoprazole [Protonix] 40 mg PO DAILY 12/28/19 11/04/24 History Tacrolimus [Prograf] 1 mg PO BID 04/03/20 11/04/24 History DULoxetine HCL [Cymbalta] 120 mg PO DAILY 12/01/20 11/04/24 History Levothyroxine Sodium [Synthroid] 75 mcg PO DAILY 12/01/20 11/04/24 History Aspirin 81 mg PO DAILY 07/12/21 11/04/24 History QUEtiapine [SEROquel] 100 mg PO HS 07/12/21 11/04/24 History Rosuvastatin Calcium [Crestor] 5 mg PO HS 07/12/21 11/04/24 History Sodium Bicarbonate Tab 650 mg PO BID 07/12/21 11/04/24 History rOPINIRole HCL [Requip] 1 mg PO HS 09/02/21 11/04/24 History Eltrombopag Olamine [Promacta] 12.5 mg PO DAILY@0700 05/31/23 11/04/24 History Magnesium Oxide [Mag-Ox] 400 mg PO DAILY tab 06/07/23 11/04/24 Rx Loperamide [Imodium] 2 mg PO QID PRN #24 cap 08/09/23 11/04/24 Rx mycophenolate mofetiL [Cellcept] 250 mg PO BID #0 08/09/23 11/04/24 Rx Ferrous Sulfate [Iron] 325 mg PO DAILY 03/18/24 11/04/24 History Gabapentin [Neurontin] 400 mg PO HS 10/22/24 11/04/24 History Metoprolol Tartrate [Lopressor] 100 mg PO BID 10/22/24 11/04/24 History Vibegron [Gemtesa] 75 mg PO DAILY 10/22/24 11/04/24 History hydrALAZINE HCL [Apresoline] 100 mg PO TID PRN 10/22/24 11/04/24 History predniSONE 5 mg PO DAILY 10/22/24 11/04/24 History Ertapenem [INVanz] 1 gm IVPB Q24H #10 each 10/27/24 11/04/24 Rx Acetaminophen Tab [Tylenol] 650 mg PO Q6HR PRN tab 10/31/24 11/04/24 Rx Insulin Glargine/Lixisenatide 20 units SQ DAILY #0 10/31/24 11/04/24 Rx [Soliqua 100 Unit-33 Mcg/ml Pen] hydrALAZINE HCL [Apresoline] 50 mg PO TID #90 tab 10/31/24 11/04/24 Rx amLODIPine [Norvasc] 5 mg PO BID #60 tab 11/01/24 11/04/24 Rx Insulin Lispro [humaLOG Kwikpen] See Protocol SQ AC-TID 11/04/24 11/04/24 History Allergies Allergy/AdvReac Type Severity Reaction Status Date / Time morphine Allergy Severe Itching Verified 11/04/24 21:15 Physical Exam Vitals: Vital Signs Temp Pulse Pulse Resp BP BP Pulse Ox 11/05/24 08:15 98.7 F 85 17 190/96 11/05/24 03:49 85 18 168/99 96 11/04/24 22:26 80 19 143/85 97 11/04/24 19:58 97.6 F 68 19 152/94 96 11/04/24 18:13 97.6 F 60 19 141/69 95 Intake and Output 11/04/24 11/05/24 11/05/24 22:59 06:59 14:59 Output Total 500 Balance -500 Output: Urine 500 Other: Voiding Method Urinal Diaper # Voids 1 Weight 90.718 kg 90.718 kg GENERAL DESCRIPTION: Elderly male lying in bed, no distress. No tachypnea or accessory muscle of respiration use. HEENT: Shows Pallor , no scleral icterus. Oral mucous membrane is dry. NECK: Trachea central, no thyromegaly. LUNGS: Unlabored breathing. Clear to auscultation anteriorly. No wheeze or crackle. HEART: S1, S2, regular rate and rhythm. No loud murmur ABDOMEN: Soft, no tenderness , guarding or rigidity, no organomegaly EXTREMITIES: No edema of feet. SKIN: No rash, no masses palpable. NEUROLOGICAL: The patient is awake, alert, oriented x3, mood and affect normal. Results CBC & Chem 7: 11/04/24 18:59 11/04/24 18:59 Labs: Abnormal Lab Results - Last 24 Hours (Table) 11/04/24 11/04/24 11/04/24 Range/Units 18:59 18:59 19:57 WBC 11.31 H (4.50-10.00) 10*3/uL Hgb 12.8 L (13.0-17.0) g/dL Hct 38.7 L (39.6-50.0) % Immature Gran # 0.08 H (0.00-0.04) 10*3/uL Neutrophils # 9.40 H (1.80-7.70) 10*3/uL Sodium 134 L (137-145) mmol/L BUN 25 H (9-20) mg/dL Glucose 66 L (74-99) mg/dL POC Glucose (mg/dL) (70-110) mg/dL Urine Protein Trace H (Negative) 11/04/24 11/05/24 Range/Units 21:36 00:25 WBC (4.50-10.00) 10*3/uL Hgb (13.0-17.0) g/dL Hct (39.6-50.0) % Immature Gran # (0.00-0.04) 10*3/uL Neutrophils # (1.80-7.70) 10*3/uL Sodium (137-145) mmol/L BUN (9-20) mg/dL Glucose (74-99) mg/dL POC Glucose (mg/dL) 64 L 141 H (70-110) mg/dL Urine Protein (Negative) Assessment and Plan (1) History of infection due to ESBL Escherichia coli Status: Acute Code(s): Z86.19 - PERSONAL HISTORY OF OTHER INFECTIOUS AND PARASITIC DISEASES SNOMED Code(s): 518904462 (2) Leukocytosis Status: Acute Code(s): D72.829 - ELEVATED WHITE BLOOD CELL COUNT, UNSPECIFIED SNOMED Code(s): 951023335 Plan: 1patient presented to hospital with weakness and fall x 2 in this patient who with recent admission to the hospital with sepsis secondary to ESBL E. coli transplant nephritis and bacteremia for the patient was receiving outpatient Invanz and today was supposed to be his last day now with admission to hospital with debility weakness and fall. 2patient did have elevated white count possibly reactive as evidence of any worsening infection clinically. 3May continue with Invanz for another day or 2 however he would not need any further IV antibiotic therapy on discharge. We will follow on clinical condition and cultures to further adjust medication if needed Thank you for this consultation we will follow the patient along with you Dictation was produced using [employer] dictation software. please excuse any grammatical, word or spelling errors. Time with Patient: Greater than 30
[2024-11-06] MEDS: ELTROMBOPAG PO SCH (06:09)
[2024-11-06] MEDS ORDERED: ELTROMBOPAG OLAMINE PO SCH (07:00)
[2024-11-06 07:17] LABS: Glucose,Whole Blood 120 mg/dL (70-110)
--- NOTE | 2024-11-06 11:46 | P.NPCON ---
History of Present Illness - History of Present Illness Patient is an 84-year-old male with history of donor renal transplant in 2002 with baseline creatinine around 1.2 to 1.4 mg/dL. He is admitted to the hospital with history of weakness and falls. Patient was recently discharged on 411 after admission for ESBL E. coli UTI and gram-negative bacteremia and sepsis. No history of fever chills nausea vomiting or abdominal pain. No urinary symptoms Serum creatinine 1.1. UA is clear Blood pressure is not low. Patient is voiding Past Medical History Past Medical History: Atrial Fibrillation, Blood Disorder, Coronary Artery Disease (CAD), Cancer, Diabetes Mellitus, Hearing Disorder / Deafness, Hyperlipidemia, Hypertension, Osteoarthritis (OA), Pneumonia, Prostate Disorder, Renal Disease, Thyroid Disorder Additional Past Medical History / Comment(s): polio at 6, back pain, melanoma taken off of left ear & left shoulder, "slow growing cancer of prostate, being watched by Dr Dasilva." Hard of hearing, LOW PLATELETS, Jul 2023 UTI & pneumonia hospitalized at [facility] and went to [facility] for rehab; "old blood clot in right leg", orthostatic hypotension, frequent falls, uses walker History of Any Multi-Drug Resistant Organisms: ESBL Date of last positivie culture/infection: 10/09/24 MDRO Source:: urine Past Surgical History: Back Surgery, Coronary Bypass/CABG, Ear Surgery, Orthopedic Surgery Additional Past Surgical History / Comment(s): KYPHOPLASTY AND BX (NEG) 2021. Left kidney transplant 2002, parathyroid surgery, arthroscopy knee surgery, pericardiocentesis, cancer removed from left ear Past Anesthesia/Blood Transfusion Reactions: No Reported Reaction Past Psychological History: Anxiety, Depression Additional Psychological History / Comment(s): Pt resides with spouse. Smoking Status: Never smoker Past Alcohol Use History: None Reported Past Drug Use History: None Reported - Past Family History Father Family Medical History: Deep Vein Thrombosis (DVT) Son(s) Family Medical History: Cancer Mother Family Medical History: Cancer Additional Family Medical History / Comment(s): . Medications and Allergies Home Medications Medication Instructions Recorded Confirmed Type Finasteride [Proscar] 5 mg PO DAILY 02/09/17 11/04/24 History Tamsulosin HCl [Flomax] 0.4 mg PO DAILY 02/09/17 11/04/24 History Multivitamins, Thera [Multivitamin 1 tab PO DAILY 12/31/18 11/04/24 History (formulary)] Vit C/E/Zn/Coppr/Lutein/Zeaxan 1 cap PO HS 12/18/19 11/04/24 History [Preservision Areds 2 Softgel] Pantoprazole [Protonix] 40 mg PO DAILY 12/28/19 11/04/24 History Tacrolimus [Prograf] 1 mg PO BID 04/03/20 11/04/24 History DULoxetine HCL [Cymbalta] 120 mg PO DAILY 12/01/20 11/04/24 History Levothyroxine Sodium [Synthroid] 75 mcg PO DAILY 12/01/20 11/04/24 History Aspirin 81 mg PO DAILY 07/12/21 11/04/24 History QUEtiapine [SEROquel] 100 mg PO HS 07/12/21 11/04/24 History Rosuvastatin Calcium [Crestor] 5 mg PO HS 07/12/21 11/04/24 History Sodium Bicarbonate Tab 650 mg PO BID 07/12/21 11/04/24 History rOPINIRole HCL [Requip] 1 mg PO HS 09/02/21 11/04/24 History Eltrombopag Olamine [Promacta] 12.5 mg PO DAILY@0700 05/31/23 11/04/24 History Magnesium Oxide [Mag-Ox] 400 mg PO DAILY tab 06/07/23 11/04/24 Rx Loperamide [Imodium] 2 mg PO QID PRN #24 cap 08/09/23 11/04/24 Rx mycophenolate mofetiL [Cellcept] 250 mg PO BID #0 08/09/23 11/04/24 Rx Ferrous Sulfate [Iron] 325 mg PO DAILY 03/18/24 11/04/24 History Gabapentin [Neurontin] 400 mg PO HS 10/22/24 11/04/24 History Metoprolol Tartrate [Lopressor] 100 mg PO BID 10/22/24 11/04/24 History Vibegron [Gemtesa] 75 mg PO DAILY 10/22/24 11/04/24 History hydrALAZINE HCL [Apresoline] 100 mg PO TID PRN 10/22/24 11/04/24 History predniSONE 5 mg PO DAILY 10/22/24 11/04/24 History Ertapenem [INVanz] 1 gm IVPB Q24H #10 each 10/27/24 11/04/24 Rx Acetaminophen Tab [Tylenol] 650 mg PO Q6HR PRN tab 10/31/24 11/04/24 Rx Insulin Glargine/Lixisenatide 20 units SQ DAILY #0 10/31/24 11/04/24 Rx [Soliqua 100 Unit-33 Mcg/ml Pen] hydrALAZINE HCL [Apresoline] 50 mg PO TID #90 tab 10/31/24 11/04/24 Rx amLODIPine [Norvasc] 5 mg PO BID #60 tab 11/01/24 11/04/24 Rx Insulin Lispro [humaLOG Kwikpen] See Protocol SQ AC-TID 11/04/24 11/04/24 History Allergies Allergy/AdvReac Type Severity Reaction Status Date / Time morphine Allergy Severe Itching Verified 11/04/24 21:15 Physical Exam Vitals: Vital Signs Temp Pulse Pulse Resp BP BP Pulse Ox 11/06/24 07:22 97.8 F 60 18 142/79 93 L 11/06/24 01:38 97.9 F 57 L 14 168/63 97 11/05/24 19:54 98.0 F 87 12 132/79 97 11/05/24 12:03 97.8 F 88 16 159/95 97 Intake and Output 11/05/24 11/06/24 11/06/24 22:59 06:59 14:59 Intake Total 540 110 120 Balance 540 110 120 Intake: Intake, IV Titration 110 Amount Sodium Chloride 0.9% 1, 110 000 ml @ 20 mls/hr IV . Q24H [facility] Rx#:[id number] Oral 540 120 Other: Voiding Method Urinal Urinal Diaper Diaper # Voids 0 1 # Bowel Movements 1 Weight 86.319 kg Patient is awake, comfortable, no acute distress Examination of the heart S1 and S2 Examination of the lungs bilateral breath sounds are heard Abdomen is soft nontender with nontender renal allograft Examination of lower extremity shows no evidence of edema [employer] exam grossly intact Results - Lab Results Most recent lab results Calcium 8.7 mg/dL (8.4-10.2) 11/04/24 18:59 11/04/24 18:59 11/04/24 18:59 Assessment and Plan Assessment: 1. Status post donor renal transplant in 2002 with baseline creatinine 1.2-1.4. Current serum creatinine is 1.1 mg/dL. Continue with Prograf and CellCept. 2. Generalized debility and increasing weakness posthospitalization 3. Recent hospitalization for sepsis with ESBL E. coli UTI and bacteremia 4. Hypertension currently stable 5. History of BPH maintained on Flomax Plan: Continue current immunosuppressive medications Repeat labs in a.m. Discharge planning for rehab Encouraged increased oral intake.
[2024-11-06 12:27] LABS: Glucose,Whole Blood 222 mg/dL (70-110)
[2024-11-06 13:02] VITALS: BP 155/76; PULSE 59; RESP 19; TEMP 97.7
--- NOTE | 2024-11-06 13:11 | P.DS ---
Providers Date of admission: 11/04/24 20:40 Expected date of discharge: 11/06/24 Attending physician: Narinder Rosenberg Consults: 11/05/24 09:22 Consult Physician Routine Consulting Provider: Luh Hwang Consult Reason/Comments: Antibx mgmt., ESBL Do you want consulting provider notified?: Yes 11/05/24 09:44 Consult Physician Routine Consulting Provider: Pavel Jarquin Consult Reason/Comments: IPR Do you want consulting provider notified?: Yes 11/05/24 13:53 Consult Physician Routine Consulting Provider: Carolina Wolfe Consult Reason/Comments: fluid overload, renal tx Do you want consulting provider notified?: Yes Primary care physician: Narinder Rosenberg Hospital Course: Final Diagnosis: Status post falls x 2, generalized weakness, medical debility, attempted to authorize patient for subacute rehab last week. Patient was discharged on 11/01/2024. Recently discharged on 11/01 with acute sepsis secondary to acute bacteremia molecular ID, E. coli ESBL suspect related to acute UTI with ESBL E. coli, failed outpatient treatment with nitrofurantoin, in a patient with history of previous ESBL E. coli , Morganella morganii UTIs. Preliminary blood cultures reported no growth. discharged on Invanz as per infectious disease. Acute leukocytosis, mild, secondary to the above Hypertension Renal transplant on chronic immunosuppression, Prograf, CellCept and prednisone Chronic renal failure stage IIIA, history of renal transplant, baseline creatinine 1.2-1.4. 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 Chest x-ray reports mild pulmonary congestion. Hospital course:This is a pleasant 84-year-old gentleman recently discharged on 11/01 with acute sepsis secondary to acute bacteremia molecular ID, E. coli ESBL suspect related to acute UTI with ESBL E. coli, failed outpatient treatment with nitrofurantoin, in a patient with history of previous ESBL E. coli , Morganella morganii UTIs. Preliminary blood cultures reported no growth. discharged on Invanz as per infectious disease. Attempted to obtain authorization for subacute rehab at discharge last week; insurance company would not authorize. Patient returns to the hospital, transferred by EMS status post increased weakness, 2 falls yesterday. Reports lower back pain. denies fevers or chills. Majority of the information obtained from EHR, significant other. patient is a vague historian, denies syncope, denies head trauma. Denies chest pain, palpitations or shortness of breath. CT brain /C-spine reported no acute intracranial process, nonspecific white matter changes likely secondary to chronic small vessel ischemic disease, no evidence of cervical spine fracture, moderate multilevel degenerative disc disease, complete opacification of left maxillary sinus. Pelvis x-ray reports no acute osseous pathology, mild to moderate degenerative changes, postsurgical changes spine appear intact afebrile, WBC 11.31, hemoglobin 12.8, platelets 142, INR 1.1, sodium 134, potassium 4.5, bicarb 25, BUN 25, creatinine 1.17. Blood sugars ranging from low 60s to 140s. UA reported trace protein. Viral studies negative. Chest x-ray reporting c ardiomegaly, mild pulmonary vascular congestion. Nephrology consulted for potential fluid volume overload in a renal transplant patient. PT/OT and IPR consulted. Discharge planning discussed with social worker psychiatric. Invanz resumed. patient was discharged on Invanz, near completion of previously ordered treatment; notified/consulted infectious disease. Denies chest pain, palpitations or shortness of breath. Evaluated by nephrology, continues on his current immunosuppressive medications. maintaining O2 sats in the mid 90s on room air. Evaluated by infectious disease, maintained on Invanz while inpatient-recommending no further IV antibiotic therapy on discharge. patient was accepted by inpatient rehab. at at [facility], but authorization for inpatient rehab denied by patient's insurance company, [employer]. Patient will be discharged home today in stable condition with guarded prognosis with [facility]NA home care/aggressive OT/PT/social work. PT will be in the home tomorrow as well as Monday. Social work providing patient and family with [place] [facility] contact info for potential volunteers to assist over the weekend. The impression and plan of care has been dictated as directed. : I performed a history and examination of this patient, discussed the same with the dictator. I agree with the dictator's note ,documented as a scribe. Any additional findings or plans will be noted. Patient Condition at Discharge: Stable Plan - Discharge Summary New Discharge Prescriptions: Continue Finasteride [Proscar] 5 mg PO DAILY Tamsulosin HCl [Flomax] 0.4 mg PO DAILY Multivitamins, Thera [Multivitamin (formulary)] 1 tab PO DAILY Vit C/E/Zn/Coppr/Lutein/Zeaxan [Preservision Areds 2 Softgel] 1 cap PO HS Pantoprazole [Protonix] 40 mg PO DAILY Tacrolimus [Prograf] 1 mg PO BID Sodium Bicarbonate Tab 650 mg PO BID QUEtiapine [SEROquel] 100 mg PO HS rOPINIRole HCL [Requip] 1 mg PO HS Magnesium Oxide [Mag-Ox] 400 mg PO DAILY tab Loperamide [Imodium] 2 mg PO QID PRN #24 cap PRN Reason: Diarrhea Ferrous Sulfate [Iron] 325 mg PO DAILY predniSONE 5 mg PO DAILY Metoprolol Tartrate [Lopressor] 100 mg PO BID hydrALAZINE HCL [Apresoline] 100 mg PO TID PRN PRN Reason: BP>140 Gabapentin [Neurontin] 400 mg PO HS Acetaminophen Tab [Tylenol] 650 mg PO Q6HR PRN tab PRN Reason: Mild Pain Or Fever > 100.5 Insulin Lispro [humaLOG Kwikpen] See Protocol SQ AC-TID Levothyroxine Sodium [Synthroid] 75 mcg PO DAILY DULoxetine HCL [Cymbalta] 120 mg PO DAILY Aspirin 81 mg PO DAILY Rosuvastatin Calcium [Crestor] 5 mg PO HS Eltrombopag Olamine [Promacta] 12.5 mg PO DAILY@0700 mycophenolate mofetiL [Cellcept] 250 mg PO BID #0 Vibegron [Gemtesa] 75 mg PO DAILY Ertapenem [INVanz] 1 gm IVPB Q24H #10 each Insulin Glargine/Lixisenatide [Soliqua 100 Unit-33 Mcg/ml Pen] 20 units SQ DAILY #0 hydrALAZINE HCL [Apresoline] 50 mg PO TID #90 tab amLODIPine [Norvasc] 5 mg PO BID #60 tab Discharge Medication List Finasteride [Proscar] 5 mg PO DAILY 02/09/17 [History] Tamsulosin HCl [Flomax] 0.4 mg PO DAILY 02/09/17 [History] Multivitamins, Thera [Multivitamin (formulary)] 1 tab PO DAILY 12/31/18 [History] Vit C/E/Zn/Coppr/Lutein/Zeaxan [Preservision Areds 2 Softgel] 1 cap PO HS 12/18/19 [History] Pantoprazole [Protonix] 40 mg PO DAILY 12/28/19 [History] Tacrolimus [Prograf] 1 mg PO BID 04/03/20 [History] DULoxetine HCL [Cymbalta] 120 mg PO DAILY 12/01/20 [History] Levothyroxine Sodium [Synthroid] 75 mcg PO DAILY 12/01/20 [History] Aspirin 81 mg PO DAILY 07/12/21 [History] QUEtiapine [SEROquel] 100 mg PO HS 07/12/21 [History] Rosuvastatin Calcium [Crestor] 5 mg PO HS 07/12/21 [History] Sodium Bicarbonate Tab 650 mg PO BID 07/12/21 [History] rOPINIRole HCL [Requip] 1 mg PO HS 09/02/21 [History] Eltrombopag Olamine [Promacta] 12.5 mg PO DAILY@0700 05/31/23 [History] Magnesium Oxide [Mag-Ox] 400 mg PO DAILY tab 06/07/23 [Rx] Loperamide [Imodium] 2 mg PO QID PRN #24 cap 08/09/23 [Rx] mycophenolate mofetiL [Cellcept] 250 mg PO BID #0 08/09/23 [Rx] Ferrous Sulfate [Iron] 325 mg PO DAILY 03/18/24 [History] Gabapentin [Neurontin] 400 mg PO HS 10/22/24 [History] Metoprolol Tartrate [Lopressor] 100 mg PO BID 10/22/24 [History] Vibegron [Gemtesa] 75 mg PO DAILY 10/22/24 [History] hydrALAZINE HCL [Apresoline] 100 mg PO TID PRN 10/22/24 [History] predniSONE 5 mg PO DAILY 10/22/24 [History] Ertapenem [INVanz] 1 gm IVPB Q24H #10 each 10/27/24 [Rx] Acetaminophen Tab [Tylenol] 650 mg PO Q6HR PRN tab 10/31/24 [Rx] Insulin Glargine/Lixisenatide [Soliqua 100 Unit-33 Mcg/ml Pen] 20 units SQ DAILY #0 10/31/24 [Rx] hydrALAZINE HCL [Apresoline] 50 mg PO TID #90 tab 10/31/24 [Rx] amLODIPine [Norvasc] 5 mg PO BID #60 tab 11/01/24 [Rx] Insulin Lispro [humaLOG Kwikpen] See Protocol SQ AC-TID 11/04/24 [History] Follow up Appointment(s)/Referral(s): Narinder Rosenberg DO [Primary Care Provider] - 3 Days Carolina Wolfe MD [STAFF PHYSICIAN] - 1 Week Activity/Diet/Wound Care/Special Instructions: [facility] home care with PT/OT/social work. Aggressive PT/OT- PT/OT will be in home starting tomorrow and Monday. Social work providing [place] [facility] contact info to patient and family for potential volunteer help on the weekend. Discharge Disposition: HOME WITH HOME HEALTH SERVICES
[2024-11-06] MEDS: INSULIN GLARGINE (LANTUS) 100 UNIT/ML SYR SQ SCH (15:51)
--- NOTE | 2024-11-07 13:21 | P.PN ---
Subjective Progress Note Date: 11/06/24 Principal diagnosis: Reason for follow-up is UTI leukocytosis Patient is a 84-year-old male with a past medical history significant for end-stage renal disease status post renal transplant, diabetes mellitus hypertension hyperlipidemia coronary artery disease atrial fibrillation with recent admission to the hospital with sepsis secondary to ESBL E. coli transplant nephritis and bacteremia now being readmitted to hospital with fall and weakness. On today's evaluation that is 11/06/2024,the patient has been afebrile the patient is breathing comfortably on room air in no distress sleepy no major areas or changes reported. No new lab has been obtained today Objective - Vital Signs Vital signs: Vital Signs Temp 97.7 F 11/06/24 13:00 Pulse 59 L 11/06/24 13:00 Resp 19 11/06/24 13:00 BP 155/76 11/06/24 13:00 Pulse Ox 94 L 11/06/24 13:00 FiO2 Intake & Output 11/05/24 11/06/24 11/06/24 18:59 06:59 18:59 Intake Total 780 110 120 Output Total 200 Balance 580 110 120 Weight 90.718 kg 86.319 kg Intake: Intake, IV Titration 110 Amount Sodium Chloride 0.9% 1, 110 000 ml @ 20 mls/hr IV . Q24H [facility] Rx#:[id number] Oral 780 120 Output: Urine 200 Other: Voiding Method Urinal Urinal Urinal Diaper Diaper Diaper # Voids 0 1 # Bowel Movements 1 - Exam Elderly male lying in bed in no distress Unlabored breathing - Labs CBC & Chem 7: 11/04/24 18:59 11/04/24 18:59 Labs: Abnormal Lab Results - Last 24 Hours (Table) 11/05/24 11/05/24 11/06/24 Range/Units 17:05 20:04 07:11 POC Glucose (mg/dL) 149 H 209 H 120 H (70-110) mg/dL 11/06/24 Range/Units 12:25 POC Glucose (mg/dL) 222 H (70-110) mg/dL Assessment and Plan (1) History of infection due to ESBL Escherichia coli Status: Acute Code(s): Z86.19 - PERSONAL HISTORY OF OTHER INFECTIOUS AND PARASITIC DISEASES SNOMED Code(s): 041003772 (2) Leukocytosis Status: Acute Code(s): D72.829 - ELEVATED WHITE BLOOD CELL COUNT, UNSPECIFIED SNOMED Code(s): 493389718 Plan: 1patient presented to hospital with weakness and fall x 2 in this patient who with recent admission to the hospital with sepsis secondary to ESBL E. coli transplant nephritis and bacteremia for the patient was receiving outpatient Invanz and today was supposed to be his last day now with admission to hospital with debility weakness and fall. 2patient did have a negative UA and has received a 2-week course of IV Invanz is no need for continuation of any IV antibiotic on discharge this was discussed with the [employer] for admitting team and to remove the midline before discharge Dictation was produced using [employer] dictation software. please excuse any grammatical, word or spelling errors. Time with Patient: Less than 30
== END 2024-11-06 16:22 | disposition home health service (06) | DRG 690 ==
LOC: EC 18:03 → 5NMEDONC 20:40
PROVIDERS: ADMIT Family Medicine; ATTEND Family Medicine
DX: N39.0 Urinary tract infection, site not specified (principal); I13.2 Hypertensive heart and chronic kidney disease with heart failure and with stage 5 chronic kidney disease, or end stage renal disease; D69.3 Immune thrombocytopenic purpura; D84.821 Immunodeficiency due to drugs; D63.1 Anemia in chronic kidney disease; Z94.0 Kidney transplant status; C61 Malignant neoplasm of prostate; E11.22 Type 2 diabetes mellitus with diabetic chronic kidney disease; F32.A Depression, unspecified; I13.0 Hypertensive heart and chronic kidney disease with heart failure and stage 1 through stage 4 chronic kidney disease, or unspecified chronic kidney disease; I50.32 Chronic diastolic (congestive) heart failure; E11.40 Type 2 diabetes mellitus with diabetic neuropathy, unspecified; N18.31 Chronic kidney disease, stage 3a; I48.0 Paroxysmal atrial fibrillation; Z79.4 Long term (current) use of insulin; R29.6 Repeated falls; E07.9 Disorder of thyroid, unspecified; E78.5 Hyperlipidemia, unspecified; H91.90 Unspecified hearing loss, unspecified ear; F41.9 Anxiety disorder, unspecified; N40.0 Benign prostatic hyperplasia without lower urinary tract symptoms; S41.111A Laceration without foreign body of right upper arm, initial encounter; S41.112A Laceration without foreign body of left upper arm, initial encounter; I25.10 Atherosclerotic heart disease of native coronary artery without angina pectoris; M54.50 Low back pain, unspecified; R26.9 Unspecified abnormalities of gait and mobility; Z79.82 Long term (current) use of aspirin; Z79.624 Long term (current) use of inhibitors of nucleotide synthesis; Z79.621 Long term (current) use of calcineurin inhibitor; Z79.890 Hormone replacement therapy; Z79.899 Other long term (current) drug therapy; Z95.1 Presence of aortocoronary bypass graft; Z86.718 Personal history of other venous thrombosis and embolism; Z86.19 Personal history of other infectious and parasitic diseases; Z85.820 Personal history of malignant melanoma of skin; Z86.12 Personal history of poliomyelitis; Z88.5 Allergy status to narcotic agent
CPT/HCPCS: 36415; 70450; 71046; 72125; 72170; 80048; 81003; 83880; 85025; 85610; 85730; 87636; 93005; 99285

== ENCOUNTER 2024-11-10 06:04 | Inpatient (IN) | payer MEDICARE ==
[2024-11-10 06:41] LABS: Basophils # (A) 0.09 10*3/uL (0.00-0.10); Basophils % (A) 1.3 %; Eosinophils # (A) 0.36 10*3/uL (0.04-0.35); Eosinophils % (A) 5.1 %; HCT 37.3 % (39.6-50.0); HGB 12.1 g/dL (13.0-17.0); Lymphocytes # (A) 1.63 10*3/uL (0.90-5.00); Lymphocytes % (A) 23.1 %; MCHC 32.4 g/dL (32.0-37.0); MCV 89.4 fL (80.0-97.0); Mean Platelet Volume 10.4 fL (9.5-12.2); Monocytes # (A) 0.78 10*3/uL (0.20-1.00); Neutrophils # (A) 4.16 10*3/uL (1.80-7.70); Neutrophils % (A) 58.9 %; RBC 4.17 10*6/uL (4.40-5.60); RDW 14.9 % (11.5-14.5); WBC 7.06 10*3/uL (4.50-10.00)
--- NOTE | 2024-11-10 06:42 | ED ---
Fall HPI - General Chief Complaint: Fall Stated Complaint: fall Time Seen by Provider: 11/10/24 06:06 Source: patient, EMS, RN notes reviewed, old records reviewed Mode of arrival: EMS Limitations: no limitations - History of Present Illness Initial Comments: 84-year-old male presents emergency department via EMS chief complaint of a fall. Patient states he was going to the bathroom and fell on his way. Patient states has been having multiple falls secondary to back pain and generalized weakness. Patient has had prior hospitalization for this reason and is under current treatment physical therapy. Patient states he is doing exercises over the weekend as directed but states he felt like he may have overdone it. Patient also complains of hallucinations which has been ongoing since his last admission he states this was addressed at that time but it is not improving. Patient also had recent hospitalization for UTI and sepsis. Patient denies any dysuria no abdominal complaints denies chest pain or shortness of breath he states he may have struck his head but is unsure first report there was no head injury. Patient denies any neck pain, no hip or lower extremity trauma. - Related Data Home Medications Medication Instructions Recorded Confirmed Finasteride [Proscar] 5 mg PO DAILY 02/09/17 11/04/24 Tamsulosin HCl [Flomax] 0.4 mg PO DAILY 02/09/17 11/04/24 Multivitamins, Thera [Multivitamin 1 tab PO DAILY 12/31/18 11/04/24 (formulary)] Vit C/E/Zn/Coppr/Lutein/Zeaxan 1 cap PO HS 12/18/19 11/04/24 [Preservision Areds 2 Softgel] Pantoprazole [Protonix] 40 mg PO DAILY 12/28/19 11/04/24 Tacrolimus [Prograf] 1 mg PO BID 04/03/20 11/04/24 DULoxetine HCL [Cymbalta] 120 mg PO DAILY 12/01/20 11/04/24 Levothyroxine Sodium [Synthroid] 75 mcg PO DAILY 12/01/20 11/04/24 Aspirin 81 mg PO DAILY 07/12/21 11/04/24 QUEtiapine [SEROquel] 100 mg PO HS 07/12/21 11/04/24 Rosuvastatin Calcium [Crestor] 5 mg PO HS 07/12/21 11/04/24 Sodium Bicarbonate Tab 650 mg PO BID 07/12/21 11/04/24 rOPINIRole HCL [Requip] 1 mg PO HS 09/02/21 11/04/24 Eltrombopag Olamine [Promacta] 12.5 mg PO DAILY@0700 05/31/23 11/04/24 Ferrous Sulfate [Iron] 325 mg PO DAILY 03/18/24 11/04/24 Gabapentin [Neurontin] 400 mg PO HS 10/22/24 11/04/24 Metoprolol Tartrate [Lopressor] 100 mg PO BID 10/22/24 11/04/24 Vibegron [Gemtesa] 75 mg PO DAILY 10/22/24 11/04/24 hydrALAZINE HCL [Apresoline] 100 mg PO TID PRN 10/22/24 11/04/24 predniSONE 5 mg PO DAILY 10/22/24 11/04/24 Insulin Lispro [humaLOG Kwikpen] See Protocol SQ AC-TID 11/04/24 11/04/24 Previous Rx's Medication Instructions Recorded Magnesium Oxide [Mag-Ox] 400 mg PO DAILY tab 06/07/23 Loperamide [Imodium] 2 mg PO QID PRN #24 cap 08/09/23 mycophenolate mofetiL [Cellcept] 250 mg PO BID #0 08/09/23 Ertapenem [INVanz] 1 gm IVPB Q24H #10 each 10/27/24 Acetaminophen Tab [Tylenol] 650 mg PO Q6HR PRN tab 10/31/24 Insulin Glargine/Lixisenatide 20 units SQ DAILY #0 10/31/24 [Soliqua 100 Unit-33 Mcg/ml Pen] hydrALAZINE HCL [Apresoline] 50 mg PO TID #90 tab 10/31/24 amLODIPine [Norvasc] 5 mg PO BID #60 tab 11/01/24 Allergies Allergy/AdvReac Type Severity Reaction Status Date / Time morphine Allergy Severe Itching Verified 11/04/24 21:15 Review of Systems ROS Statement: Those systems with pertinent positive or pertinent negative responses have been documented in the HPI. ROS Other: All systems not noted in ROS Statement are negative. 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 Left kidney transplant 2002, parathyroid surgery, arthroscopy knee surgery, pericardiocentesis, cancer removed from left ear Past Anesthesia/Blood Transfusion Reactions: No Reported Reaction Past Psychological History: Anxiety, Depression Smoking Status: Never smoker Past Alcohol Use History: None Reported Past Drug Use History: None Reported - Past Family History Father Family Medical History: Deep Vein Thrombosis (DVT) Son(s) Family Medical History: Cancer Mother Family Medical History: Cancer Additional Family Medical History / Comment(s): . General Exam Limitations: no limitations General appearance: alert, in no apparent distress Head exam: Present: atraumatic, normocephalic, normal inspection Eye exam: Present: normal appearance, PERRL, EOMI. Absent: scleral icterus, conjunctival injection, periorbital swelling ENT exam: Present: normal exam, normal oropharynx, mucous membranes moist Neck exam: Present: normal inspection. Absent: tenderness, meningismus, full ROM (Patient in c-collar), lymphadenopathy Respiratory exam: Present: normal lung sounds bilaterally. Absent: respiratory distress, wheezes, rales, rhonchi, stridor Cardiovascular Exam: Present: irregular rhythm, normal heart sounds. Absent: regular rate, normal rhythm, systolic murmur, diastolic murmur, rubs, gallop, clicks GI/Abdominal exam: Present: soft, normal bowel sounds. Absent: distended, tenderness, guarding, rebound, rigid Extremities exam: Present: normal inspection, full ROM, normal capillary refill. Absent: tenderness, pedal edema, joint swelling, calf tenderness Neurological exam: Present: alert, CN II-XII intact. Absent: oriented X3 Skin exam: Present: warm, dry, intact, normal color, other (Multiple ecchymotic areas). Absent: rash Course Vital Signs 11/10/24 11/10/24 11/10/24 06:09 07:40 08:13 Temperature 98.0 F Pulse Rate 59 L 85 Respiratory 20 18 17 Rate Blood Pressure 145/80 168/95 O2 Sat by Pulse 97 93 L Oximetry Medical Decision Making - Medical Decision Making Was pt. sent in by a medical professional or institution (, PA, FIRESETTER, urgent care, hospital, or usp...) When possible be specific @ -No Did you speak to anyone other than the patient for history (EMS, parent, family, police, friend...)? What history was obtained from this source @ -No Did you review nursing and triage notes (agree or disagree)? Why? @ -I reviewed and agree with nursing and triage notes Were old charts reviewed (outside hosp., previous admission, EMS record, old EKG, old radiological studies, urgent care reports/EKG's, usp records)? Report findings @ -No old charts were reviewed Differential Diagnosis (chest pain, altered mental status, abdominal pain women, abdominal pain men, vaginal bleeding, weakness, fever, dyspnea, syncope, headache, dizziness, GI bleed, back pain, seizure, CVA, palpatations, mental health, musculoskeletal)? @ -Differential Weakness: Hypoglycemia, shock, sepsis, hyponatremia, anemia, infection, VT, ETOH, adverse medicine reaction, overdose, stroke, this is not meant to be an all-inclusive list. EKG interpreted by me (3pts min.). @ -As above X-rays interpreted by me (1pt min.). @ -Chest x-ray does not show any overt failure versus infectious process CT interpreted by me (1pt min.). @ -CT brain, C-spine negative for acute process U/S interpreted by me (1pt. min.). @ -None done What testing was considered but not performed or refused? (CT, X-rays, U/S, labs)? Why? @ -None What meds were considered but not given or refused? Why? @ -None Did you discuss the management of the patient with other professionals (professionals i.e. , PA, FIRESETTER, lab, RT, psych nurse, director social welfare, early childhood education instructor, teacher, motorcycle police officer, adult protective caseworker)? Give summary @ -EMH for admission Was smoking cessation discussed for >3mins.? @ -No Was critical care preformed (if so, how long)? @ -No Were there social determinants of health that impacted care today? How? (Homelessness, low income, unemployed, alcoholism, drug addiction, transportation, low edu. Level, literacy, decrease access to med. care, detention, rehab)? @ -No Was there de-escalation of care discussed even if they declined (Discuss DNR or withdrawal of care, Hospice)? DNR status @ -No What co-morbidities impacted this encounter? (DM, HTN, Smoking, COPD, CAD, Cancer, CVA, ARF, Chemo, Hep., AIDS, mental health diagnosis, sleep apnea, morbid obesity)? @ -None Was patient admitted / discharged? Hospital course, mention meds given and route, prescriptions, significant lab abnormalities, going to OR and other pertinent info. @ -Admitted patient has elevated troponin more likely be chronic elevation as he has no complaints of chest pain or uptrending patient may require inpatient rehab has had multiple falls, increasing weakness. Undiagnosed new problem with uncertain prognosis? @ -No Drug Therapy requiring intensive monitoring for toxicity (Heparin, Nitro, Insulin, Cardizem)? @ -No Were any procedures done? @ -No Diagnosis/symptom? @ -Weakness multiple falls, elevated troponin Acute, or Chronic, or Acute on Chronic? @ -Acute Uncomplicated (without systemic symptoms) or Complicated (systemic symptoms)? @ -Complicated Side effects of treatment? @ -No Exacerbation, Progression, or Severe Exacerbation? @ -No Poses a threat to life or bodily function? How? (Chest pain, USA, VT, pneumonia, PE, COPD, DKA, ARF, appy, cholecystitis, CVA, Diverticulitis, Homicidal, Suicidal, threat to staff... and all critical care pts) @ -Yes possible ACS, risk to cardiac function - Lab Data Result diagrams: 11/10/24 06:25 11/10/24 06:25 Lab Results 11/10/24 11/10/24 11/10/24 Range/Units 06:25 06:25 06:25 WBC 7.06 (4.50-10.00) 10*3/uL RBC 4.17 L (4.40-5.60) 10*6/uL Hgb 12.1 L (13.0-17.0) g/dL Hct 37.3 L (39.6-50.0) % MCV 89.4 (80.0-97.0) fL MCH 29.0 (27.0-32.0) pg MCHC 32.4 (32.0-37.0) g/dL Plt Count 87 L (140-440) 10*3/uL MPV 10.4 (9.5-12.2) fL Immature Gran % (Auto) 0.6 % Neutrophils % 58.9 % Lymphocytes % 23.1 % Monocytes % 11.0 % Eosinophils % 5.1 % Basophils % 1.3 % Immature Gran # 0.04 (0.00-0.04) 10*3/uL Neutrophils # 4.16 (1.80-7.70) 10*3/uL Lymphocytes # 1.63 (0.90-5.00) 10*3/uL Monocytes # 0.78 (0.20-1.00) 10*3/uL Eosinophils # 0.36 H (0.04-0.35) 10*3/uL Basophils # 0.09 (0.00-0.10) 10*3/uL Manual Slide Review Performed PT 11.9 (10.0-12.5) sec INR 1.1 (<1.2) APTT 23.6 (22.0-30.0) sec Sodium 138 (137-145) mmol/L Potassium 4.0 (3.5-5.1) mmol/L Chloride 104 (98-107) mmol/L Carbon Dioxide 25 (22-30) mmol/L Anion Gap 9 mmol/L BUN 25 H (9-20) mg/dL Creatinine 1.23 (0.66-1.25) mg/dL Est GFR (CKD-EPI)AfAm 63 (>60 ml/min/1.73 sqM) Est GFR (CKD-EPI)NonAf 55 (>60 ml/min/1.73 sqM) Glucose 129 H (74-99) mg/dL Plasma Lactic Acid Jc (0.7-2.0) mmol/L Calcium 9.3 (8.4-10.2) mg/dL Magnesium 1.6 (1.6-2.3) mg/dL Total Bilirubin 0.9 (0.2-1.3) mg/dL AST 21 (17-59) U/L ALT 15 (4-49) U/L Alkaline Phosphatase 74 (38-126) U/L Troponin I (0.000-0.034) ng/mL Total Protein 5.3 L (6.3-8.2) g/dL Albumin 3.3 L (3.5-5.0) g/dL Urine Color Urine Appearance (Clear) Urine pH (5.0-8.0) Ur Specific [place] (1.001-1.035) Urine Protein (Negative) Urine Glucose (UA) (Negative) Urine Ketones (Negative) Urine Blood (Negative) Urine Nitrite (Negative) Urine Bilirubin (Negative) Urine Urobilinogen (<2.0) mg/dL Ur Leukocyte Esterase (Negative) Urine RBC (0-5) /hpf Urine WBC (0-5) /hpf Ur Squamous Epith Cells (0-4) /hpf Urine Mucus (None) /hpf 11/10/24 11/10/24 11/10/24 Range/Units 06:25 06:53 09:48 WBC (4.50-10.00) 10*3/uL RBC (4.40-5.60) 10*6/uL Hgb (13.0-17.0) g/dL Hct (39.6-50.0) % MCV (80.0-97.0) fL MCH (27.0-32.0) pg MCHC (32.0-37.0) g/dL Plt Count (140-440) 10*3/uL MPV (9.5-12.2) fL Immature Gran % (Auto) % Neutrophils % % Lymphocytes % % Monocytes % % Eosinophils % % Basophils % % Immature Gran # (0.00-0.04) 10*3/uL Neutrophils # (1.80-7.70) 10*3/uL Lymphocytes # (0.90-5.00) 10*3/uL Monocytes # (0.20-1.00) 10*3/uL Eosinophils # (0.04-0.35) 10*3/uL Basophils # (0.00-0.10) 10*3/uL Manual Slide Review PT (10.0-12.5) sec INR (<1.2) APTT (22.0-30.0) sec Sodium (137-145) mmol/L Potassium (3.5-5.1) mmol/L Chloride (98-107) mmol/L Carbon Dioxide (22-30) mmol/L Anion Gap mmol/L BUN (9-20) mg/dL Creatinine (0.66-1.25) mg/dL Est GFR (CKD-EPI)AfAm (>60 ml/min/1.73 sqM) Est GFR (CKD-EPI)NonAf (>60 ml/min/1.73 sqM) Glucose (74-99) mg/dL Plasma Lactic Acid Jc 1.9 (0.7-2.0) mmol/L Calcium (8.4-10.2) mg/dL Magnesium (1.6-2.3) mg/dL Total Bilirubin (0.2-1.3) mg/dL AST (17-59) U/L ALT (4-49) U/L Alkaline Phosphatase (38-126) U/L Troponin I 0.051 H* (0.000-0.034) ng/mL Total Protein (6.3-8.2) g/dL Albumin (3.5-5.0) g/dL Urine Color Yellow Urine Appearance Clear (Clear) Urine pH 7.0 (5.0-8.0) Ur Specific [place] 1.014 (1.001-1.035) Urine Protein 1+ H (Negative) Urine Glucose (UA) Negative (Negative) Urine Ketones Negative (Negative) Urine Blood Moderate H (Negative) Urine Nitrite Negative (Negative) Urine Bilirubin Negative (Negative) Urine Urobilinogen <2.0 (<2.0) mg/dL Ur Leukocyte Esterase Negative (Negative) Urine RBC >182 H (0-5) /hpf Urine WBC 6 H (0-5) /hpf Ur Squamous Epith Cells 1 (0-4) /hpf Urine Mucus Rare H (None) /hpf - EKG Data -: EKG Interpreted by Me EKG Comments: EKG performed at 6: 22 A-fib with rate of 55 QRS 93 QT/QTc 471/[address] elevation Disposition Clinical Impression: Multiple falls, Elevated troponin, Weakness Disposition: ADMITTED IP TO THIS [facility] Condition: Fair Referrals: Narinder Rosenberg DO [Primary Care Provider] - 1-2 days Time of Disposition: 10:10
[2024-11-10 06:55] LABS: ALT 15 U/L (4-49); AST 21 U/L (17-59); African American GFR (CKD) 63 (>60 ml/min/1.73 sqM); Albumin 3.3 g/dL (3.5-5.0); Alkaline Phosphatase 74 U/L (38-126); Anion Gap 9 mmol/L; Blood Urea Nitrogen 25 mg/dL (9-20); Calcium 9.3 mg/dL (8.4-10.2); Carbon Dioxide 25 mmol/L (22-30); Chloride 104 mmol/L (98-107); Glucose 129 mg/dL (74-99); Magnesium 1.6 mg/dL (1.6-2.3); Non-African American GFR(CKD) 55 (>60 ml/min/1.73 sqM); Sodium 138 mmol/L (137-145); Total Bilirubin 0.9 mg/dL (0.2-1.3); Total Protein 5.3 g/dL (6.3-8.2)
[2024-11-10 06:56] LABS: INR 1.1 (<1.2); Partial Thromboplastin Time 23.6 sec (22.0-30.0); Prothrombin Time 11.9 sec (10.0-12.5)
--- NOTE | 2024-11-10 07:28 | CT ---
EXAMINATION TYPE: CT brain alphonso wo con DATE OF EXAM: 11/10/2024 COMPARISON: 11/04/2024 CLINICAL INDICATION: Male, 84 years old with history of fall; PHH, FALL TECHNIQUE: CT scan of the head and cervical spine are performed without contrast. CT DLP: 1431.[address] CTDI: mGy Automated exposure control for dose reduction was used. Findings: Head CT: The ventricles, basal cisterns and sulci over convexities are moderately enlarged consistent with mod erate generalized atrophy. There is moderate decreased density in the periventricular white matter co nsistent with chronic ischemic white matter demyelination. There is no mass effect or shift in midlin e structures. There is no acute intra or extra-axial hemorrhage. Posterior fossa including the brainstem, fourth ventricle and cerebellar pontine angles are grossly n ormal. Intraorbital contents appear normal and symmetric. There is complete opacification of the left maxillary sinus and mild chronic inflammatory change in t he frontal and right maxillary sinus. The mastoid air cells are well aerated. CT cervical spine: Craniovertebral junction relationships and prevertebral soft tissues are normal. The cervical vertebral segments are normal in height and alignment and there is no fracture subluxati on. There is moderate disc space narrowing and spondylosis of the C5-6 and C6-7 levels indicating moderat e degenerative disc disease. The facet joints are intact. There is moderate degeneration of the uncovertebral joints at C5-6 and C 6-7. There is a sclerotic density lamina and transverse process at C4 on the left. There is mild to moderate bony encroachment at C5-6 and C6-7 resulting in at least a mild to possibly moderate cervical stenosis There is moderate to severe bony neural foraminal encroachment at C4-5 le ft, and severe at C5-6 on the right. The paraspinal soft tissues unremarkable. IMPRESSION: 1. Head CT: No acute bleed or mass effect. Moderate senescent changes. Complete opacification of the left maxillary sinus. 2. CT cervical spine: No acute trauma. Cervical stenosis and bony neural foraminal stenosis as descri bed above. [facility], , 11/10/2024 7:26 AM
[2024-11-10 07:56] LABS: Platelet Count 87 10*3/uL (140-440)
--- NOTE | 2024-11-10 08:24 | XR ---
EXAMINATION TYPE: XR chest 1V DATE OF EXAM: 11/10/2024 COMPARISON: 07/26/2023 CLINICAL INDICATION: Male, 84 years old with history of weakness; TECHNIQUE: Single frontal view of the chest is obtained. FINDINGS: There are scattered interstitial and partially consolidative opacities. There is mild cardiomegaly. There is no pneumothorax or pleural effusion. The osseous structures are intact. IMPRESSION: No acute cardiopulmonary process involving both lungs diffusely as described above. The findings like ly indicate CHF with interstitial and scattered pulmonary edema. Pneumonia not excluded. [facility], , 11/10/2024 8:22 AM
[2024-11-10] MEDS: SODIUM CHLORIDE 0.9% 500 ML 500 ML IV ONE (09:18)
[2024-11-10 09:56] LABS: Appearance,Urine Clear (Clear); Bilirubin,Urine Negative (Negative); Blood,Urine Moderate (Negative); Color,Urine Yellow; Glucose,Urine (UA) Negative (Negative); Ketones,Urine Negative (Negative); Leukocyte Esterase,Urine Negative (Negative); Mucus,Urine Rare /hpf; Nitrite,Urine Negative (Negative); Protein,Urine 1+ (Negative); RBC,Urine >182 /hpf (0-5); Specific Gravity,Urine 1.014 (1.001-1.035); Squamous Epithelial Cell,Urine 1 /hpf (0-4); Urobilinogen,Urine <2.0 mg/dL (<2.0); WBC,Urine 6 /hpf (0-5)
[2024-11-10] MEDS ORDERED: NITROGLYCERIN SL TABS 0.4 MG TAB SUBLINGUAL PRN (10:10)
[2024-11-10] MEDS: HEPARIN SODIUM,PORCINE 5,000 UNIT/ML 1 ML VIAL SQ STA (11:45)
[2024-11-10] MEDS: ASPIRIN 81 MG PO STA (11:45)
[2024-11-10 15:11] LABS: Glucose,Whole Blood 136 mg/dL (70-110)
[2024-11-10] MEDS ORDERED: hydrALAZINE HCL 50 MG TAB PO PRN (15:42)
[2024-11-10] MEDS ORDERED: ACETAMINOPHEN TAB 325 MG TAB PO PRN (15:42)
[2024-11-10] MEDS ORDERED: LOPERAMIDE 2 MG CAP PO PRN (15:42)
[2024-11-10] MEDS: hydrALAZINE HCL 50 MG TAB PO SCH (16:36)
[2024-11-10 17:31] LABS: Glucose,Whole Blood 135 mg/dL (70-110)
[2024-11-10] MEDS: INSULIN LISPRO (HumaLOG) 100 UNIT/ML 10 mL VL SQ SCH (17:54)
--- NOTE | 2024-11-10 19:23 | P.HPIM ---
History of Present Illness H&P Date: 11/10/24 Chief Complaint: Recurrent falls Patient is a 84-year-old male with a past medical history of coronary artery disease status post CABG, atrial fibrillation not on anticoagulation due to ITP, history of renal transplant on immunosuppressive therapy, CKD stage III yea, hypertension, hyperlipidemia, diabetes type 2 insulin-dependent, hypothyroidism, osteoarthritis, anxiety/depression and other multiple medical problems including chronic back pain and melanoma surgery. Patient was brought to the hospital due to frequent falls. According to his at bedside patient fell about 4 times and 3 times she was able to get up and he felt very weak and could not get up himself for for the time. He has been having generalized weakness. He was also being confused and delirious could not sleep overnight. Patient had recent hospitalization for UTI and sepsis. He was discharged on 11/06/2024. He was found to have ESBL E. coli urinary tract infection and was discharged on Invanz. Otherwise denied any fever or chills. No cough or sputum production. No nausea vomiting abdominal pain or diarrhea. EKG showed atrial fibrillation with slow ventricular response. CT head and cervical spine showed no acute bleed or mass effect. Moderate senescent changes. Complete a vessel casing of the left maxillary sinus. CT cervical spine showed no acute trauma. Central canal stenosis. Chest x-ray showed no acute cardiopulmonary process involving both lung diffusely findings likely indicate CHF with interstitial and scattered pulmonary edema. Pneumonia not excluded. Laboratory data showed WBC 7.0 hemoglobin 12.1, platelets 87 Sodium 138 potassium 4.0 chloride 104 bicarb is 25 BUN 25 creatinine 1.23 and blood sugar 129 magnesium 1.6, liver enzymes are not elevated. Troponin 0.051, 0.041 Urinalysis showed moderate blood leukocyte esterase negative RBCs greater than 182 and WBC 6 and squamous epithelial cells 1. Review of Systems ROS unobtainable: due to mental status Past Medical History Past Medical History: Atrial Fibrillation, Blood Disorder, Coronary Artery Disease (CAD), Cancer, Diabetes Mellitus, Hearing Disorder / Deafness, Hyperlipidemia, Hypertension, Osteoarthritis (OA), Pneumonia, Prostate Disorder, Renal Disease, Thyroid Disorder Additional Past Medical History / Comment(s): polio at 6, back pain, melanoma taken off of left ear & left shoulder, "slow growing cancer of prostate, being watched by Dr Dasilva." Hard of hearing, LOW PLATELETS, Jul 2023 UTI & pneumonia hospitalized at [facility] and went to [facility] for rehab; "old blood clot in right leg ", orthostatic hypotension, frequent falls, uses walker History of Any Multi-Drug Resistant Organisms: ESBL Date of last positivie culture/infection: 10/09/24 MDRO Source:: urine Past Surgical History: Back Surgery, Coronary Bypass/CABG, Ear Surgery, Orthopedic Surgery Additional Past Surgical History / Comment(s): KYPHOPLASTY AND BX (NEG) 2021. Left kidney transplant 2002, parathyroid surgery, arthroscopy knee surgery, pericardiocentesis, cancer removed from left ear Past Anesthesia/Blood Transfusion Reactions: No Reported Reaction Past Psychological History: Anxiety, Depression Additional Psychological History / Comment(s): Pt resides with spouse. Smoking Status: Unknown if ever smoked Past Alcohol Use History: None Reported Past Drug Use History: None Reported - Past Family History Father Family Medical History: Deep Vein Thrombosis (DVT) Son(s) Family Medical History: Cancer Mother Family Medical History: Cancer Additional Family Medical History / Comment(s): . Medications and Allergies Home Medications Medication Instructions Recorded Confirmed Type Finasteride [Proscar] 5 mg PO DAILY 02/09/17 11/10/24 History Tamsulosin HCl [Flomax] 0.4 mg PO DAILY 02/09/17 11/10/24 History Multivitamins, Thera [Multivitamin 1 tab PO DAILY 12/31/18 11/10/24 History (formulary)] Vit C/E/Zn/Coppr/Lutein/Zeaxan 1 cap PO HS 12/18/19 11/10/24 History [Preservision Areds 2 Softgel] Pantoprazole [Protonix] 40 mg PO DAILY 12/28/19 11/10/24 History Tacrolimus [Prograf] 1 mg PO BID 04/03/20 11/10/24 History DULoxetine HCL [Cymbalta] 120 mg PO DAILY 12/01/20 11/10/24 History Levothyroxine Sodium [Synthroid] 75 mcg PO DAILY 12/01/20 11/10/24 History Aspirin 81 mg PO DAILY 07/12/21 11/10/24 History QUEtiapine [SEROquel] 100 mg PO HS 07/12/21 11/10/24 History Rosuvastatin Calcium [Crestor] 5 mg PO HS 07/12/21 11/10/24 History Sodium Bicarbonate Tab 650 mg PO BID 07/12/21 11/10/24 History rOPINIRole HCL [Requip] 1 mg PO HS 09/02/21 11/10/24 History Eltrombopag Olamine [Promacta] 12.5 mg PO DAILY@0700 05/31/23 11/10/24 History Magnesium Oxide [Mag-Ox] 400 mg PO DAILY tab 06/07/23 11/10/24 Rx Loperamide [Imodium] 2 mg PO QID PRN #24 cap 08/09/23 11/10/24 Rx mycophenolate mofetiL [Cellcept] 250 mg PO BID #0 08/09/23 11/10/24 Rx Ferrous Sulfate [Iron] 325 mg PO DAILY 03/18/24 11/10/24 History Gabapentin [Neurontin] 400 mg PO HS 10/22/24 11/10/24 History Metoprolol Tartrate [Lopressor] 100 mg PO BID 10/22/24 11/10/24 History Vibegron [Gemtesa] 75 mg PO DAILY 10/22/24 11/10/24 History hydrALAZINE HCL [Apresoline] 100 mg PO TID PRN 10/22/24 11/10/24 History predniSONE 5 mg PO DAILY 10/22/24 11/10/24 History Acetaminophen Tab [Tylenol] 650 mg PO Q6HR PRN tab 10/31/24 11/10/24 Rx Insulin Glargine/Lixisenatide 20 units SQ DAILY #0 10/31/24 11/10/24 Rx [Soliqua 100 Unit-33 Mcg/ml Pen] hydrALAZINE HCL [Apresoline] 50 mg PO TID #90 tab 10/31/24 11/10/24 Rx amLODIPine [Norvasc] 5 mg PO BID #60 tab 11/01/24 11/10/24 Rx Insulin Lispro [humaLOG Kwikpen] See Protocol SQ AC-TID 11/04/24 11/10/24 History Mirabegron [Myrbetriq] 50 mg PO DAILY 11/10/24 11/10/24 History Allergies Allergy/AdvReac Type Severity Reaction Status Date / Time morphine Allergy Severe Itching Verified 11/04/24 21:15 Physical Exam Vitals: Vital Signs Temp Pulse Pulse Resp BP BP Pulse Ox 11/10/24 13:59 97.7 F 69 18 170/90 98 11/10/24 13:21 98.7 F 86 17 177/86 99 11/10/24 11:50 84 18 173/92 99 11/10/24 09:45 17 11/10/24 08:13 85 17 168/95 93 L 11/10/24 07:40 18 11/10/24 06:09 98.0 F 59 L 20 145/80 97 Intake and Output 11/10/24 11/10/24 11/10/24 06:59 14:59 22:59 Intake Total 118 Balance 118 Intake: Oral 118 Other: Voiding Method Diaper Weight 90.718 kg 90.718 kg PHYSICAL EXAMINATION: Patient is resting in the bed, no acute distress, awake alert and oriented.. HEENT: Normocephalic. Neck is supple. Pupils reactive. Nostrils clear. Oral ca vity is moist. Neck reveals no JVD, carotid bruits, or thyromegaly. CHEST EXAMINATION: Trachea is central. Symmetrical expansion. Bibasilar diminished air entry otherwise lung de [place] garza clear to auscultation and percussion. CARDIAC: Normal S1, S2 with no gallops. Systolic murmur present. ABDOMEN: Soft. Bowel sounds normal. No organomegaly. No abdominal bruits. Extremities: reveal no edema. No clubbing or cyanosis Neurologically awake, alert, oriented x 1 able to move all extremities. No lalitha ss focal deficits noted Skin: No rash or skin lesions. Psychiatric: Coperative. Could not be assessed completely Musculoskeletal: No joint swelling or deformity. Results CBC & Chem 7: 11/10/24 06:25 11/10/24 06:25 Labs: Abnormal Lab Results - Last 24 Hours (Table) 11/10/24 11/10/24 11/10/24 Range/Units 06:25 06:25 06:25 RBC 4.17 L (4.40-5.60) 10*6/uL Hgb 12.1 L (13.0-17.0) g/dL Hct 37.3 L (39.6-50.0) % Plt Count 87 L (140-440) 10*3/uL Eosinophils # 0.36 H (0.04-0.35) 10*3/uL BUN 25 H (9-20) mg/dL Glucose 129 H (74-99) mg/dL POC Glucose (mg/dL) (70-110) mg/dL Troponin I 0.051 H* (0.000-0.034) ng/mL Total Protein 5.3 L (6.3-8.2) g/dL Albumin 3.3 L (3.5-5.0) g/dL Urine Protein (Negative) Urine Blood (Negative) Urine RBC (0-5) /hpf Urine WBC (0-5) /hpf Urine Mucus (None) /hpf 11/10/24 11/10/24 11/10/24 Range/Units 09:48 12:12 15:10 RBC (4.40-5.60) 10*6/uL Hgb (13.0-17.0) g/dL Hct (39.6-50.0) % Plt Count (140-440) 10*3/uL Eosinophils # (0.04-0.35) 10*3/uL BUN (9-20) mg/dL Glucose (74-99) mg/dL POC Glucose (mg/dL) 136 H (70-110) mg/dL Troponin I 0.041 H* (0.000-0.034) ng/mL Total Protein (6.3-8.2) g/dL Albumin (3.5-5.0) g/dL Urine Protein 1+ H (Negative) Urine Blood Moderate H (Negative) Urine RBC >182 H (0-5) /hpf Urine WBC 6 H (0-5) /hpf Urine Mucus Rare H (None) /hpf 11/10/24 11/10/24 Range/Units 15:30 17:28 RBC (4.40-5.60) 10*6/uL Hgb (13.0-17.0) g/dL Hct (39.6-50.0) % Plt Count (140-440) 10*3/uL Eosinophils # (0.04-0.35) 10*3/uL BUN (9-20) mg/dL Glucose (74-99) mg/dL POC Glucose (mg/dL) 135 H (70-110) mg/dL Troponin I 0.037 H* (0.000-0.034) ng/mL Total Protein (6.3-8.2) g/dL Albumin (3.5-5.0) g/dL Urine Protein (Negative) Urine Blood (Negative) Urine RBC (0-5) /hpf Urine WBC (0-5) /hpf Urine Mucus (None) /hpf Thrombosis Risk Factor Assmnt - DVT/VTE Prophylaxis DVT/VTE Prophylaxis: Mechanical Prophylaxis ordered - Choose All That Apply Any of the Below Risk Factors Present?: No Other Risk Factors: Yes Assessment and Plan Assessment: Generalized weakness and frequent falls. Altered mental status possible delirium. Evaded troponin level Paroxysmal atrial fibrillation anticoagulation due to history of ITP Chronic CHF with preserved EF Coronary artery disease with history of CABG History of renal transplant on immunosuppressive therapy with Prograf, CellCept and prednisone. Hypertension History of recurrent urine tract infection including ESBL E. coli Diabetes type 2 insulin-dependent Valvular heart disease Hypothyroidism GI prophylaxis with PPI Plan: Patient will be continued on telemonitoring. Was given IV fluid bolus in the ER. Replace electrolytes. Patient will be started back on home medications. Insulin sliding scale. Cardiology was consulted due to elevated troponin level. Continue to follow closely. PT OT be consulted and patient may need rehab transfer. Time with Patient: Greater than 30
[2024-11-10 19:49] LABS: Glucose,Whole Blood 216 mg/dL (70-110)
[2024-11-10] MEDS: amLODIPine 5 MG TAB PO SCH (21:57)
[2024-11-10] MEDS: ELTROMBOPAG OLAMINE PO SCH (21:57)
[2024-11-10] MEDS: MAGNESIUM SULFATE-D5W PMX 1 GM in DEXTROSE/WATER 1 100ML.BAG IVPB SCH (21:57)
[2024-11-10] MEDS: VIT A,C & E-LUTEIN-MINERALS 1 EACH TAB PO SCH (21:58)
[2024-11-10] MEDS: QUEtiapine 100 MG TAB PO SCH (21:58)
[2024-11-10] MEDS: SODIUM BICARBONATE TAB 650 MG TAB PO SCH (21:58)
[2024-11-10] MEDS: METOPROLOL TARTRATE 50 MG TAB PO SCH (21:58)
[2024-11-10] MEDS: ATORVASTATIN 10 MG TAB PO SCH (21:58)
[2024-11-10] MEDS: GABAPENTIN 400 MG CAP PO SCH (21:58)
[2024-11-10] MEDS: TACROLIMUS 1 MG CAP PO SCH (21:58)
[2024-11-11 05:35] LABS: Glucose,Whole Blood 117 mg/dL (70-110)
[2024-11-11] MEDS: LEVOTHYROXINE 75 MCG TAB PO SCH (05:56)
[2024-11-11] MEDS ORDERED: ELTROMBOPAG OLAMINE PO SCH (07:00)
[2024-11-11] MEDS ORDERED: AMINOPHYLLINE 500 MG/20 ML VIAL IV PRN (08:47)
[2024-11-11] MEDS ORDERED: REGADENOSON 0.4 MG/5 ML SYRINGE IV PRN (08:47)
[2024-11-11] MEDS ORDERED: CAFFEINE CITRATE 60 MG/3 ML VIAL IV PRN (08:47)
[2024-11-11] MEDS ORDERED: PATIENT'S OWN (Vibegron [Gemtesa] 75 MG Tablet) PO SCH (09:00)
[2024-11-11] MEDS: FINASTERIDE 5 MG TAB PO SCH (09:02)
[2024-11-11] MEDS: FERROUS SULFATE 325 MG TAB PO SCH (09:02)
[2024-11-11] MEDS: PANTOPRAZOLE 40 MG TABLET PO SCH (09:02)
[2024-11-11] MEDS: MULTIVITAMINS, THERA 1 EACH TAB PO SCH (09:02)
[2024-11-11] MEDS: predniSONE 5 MG TAB PO SCH (09:03)
[2024-11-11] MEDS: PATIENT'S OWN (Vibegron [Gemtesa] 75 MG Tablet) PO SCH (09:03)
[2024-11-11] MEDS: DULoxetine HCL 60 MG CAPSULE.DR PO SCH (09:03)
[2024-11-11] MEDS: ASPIRIN 81 MG PO SCH (09:03)
[2024-11-11] MEDS: TAMSULOSIN 0.4 MG CAP.ER.24H PO SCH (09:03)
[2024-11-11] MEDS: MAGNESIUM OXIDE 400 MG TAB PO SCH (09:06)
[2024-11-11] MEDS: METOPROLOL TARTRATE 50 MG TAB PO SCH (09:06)
[2024-11-11] MEDS: PATIENT'S OWN (Mirabegron [Myrbetriq] 50 MG Tab.Er.24h) PO SCH (09:07)
[2024-11-11] MEDS: PATIENT'S OWN (Insulin Glargine/Lixisenatide [Soliqua 100 Unit-33 Mcg/Ml Pen] 3 ML In SQ SCH (09:07)
[2024-11-11 09:18] LABS: BUN/Creat Ratio 17.18 Ratio (12.00-20.00); Blood Urea Nitrogen 18.9 mg/dL (9.0-27.0); Calcium 8.2 mg/dL (8.7-10.3); Carbon Dioxide 24.9 mmol/L (21.6-31.8); Chloride 106 mmol/L (96-109); Glucose 123 mg/dL (70-110); Potassium 3.9 mmol/L (3.5-5.5); Sodium 139 mmol/L (135-145)
[2024-11-11 09:29] LABS: Basophils # (A) 0.09 X 10*3/uL (0.00-0.10); Basophils % (A) 1.2 %; Eosinophils # (A) 0.34 X 10*3/uL (0.04-0.35); Eosinophils % (A) 4.7 %; HCT 38.3 % (39.6-50.0); HGB 11.9 g/dL (13.0-17.0); Immature Platelet Fraction 4.9 % (1.1-6.1); Lymphocytes # (A) 1.17 X 10*3/uL (0.90-5.00); MCH 28.3 pg (27.0-32.0); MCHC 31.1 g/dL (32.0-37.0); Mean Platelet Volume 10.7 FL (9.5-12.2); Monocytes # (A) 0.76 X 10*3/uL (0.20-1.00); Monocytes % (A) 10.4 %; NRBC Per 100 WBC 0 X 10*3/uL (0.00-0.01); Neutrophils % (A) 67.3 %; Platelet Count 67 X 10*3/uL (140-440); RBC 4.21 X 10*6/uL (4.40-5.60); WBC 7.29 X 10*3/uL (4.50-10.00)
--- NOTE | 2024-11-11 11:08 | P.CRDCN ---
History of Present Illness History of present illness: HISTORY OF PRESENT ILLNESS: This is a 84-year-old male with a past medical history significant for persistent atrial fibrillation, ITP, hypertension, hyperlipidemia, aortic stenosis, chronic kidney disease with previous renal transplant, diabetes, chronic back pain, and chronic DVT. Patient follows in the office with Dr. Crabtree. We have been asked to see the patient in consultation for elevated troponins. Patient examined at the bedside. Patient gives history that he was recently admitted to the hospital secondary to urinary tract infection. Patient presented to the hospital due to a fall. Patient states he has been having frequent falls at home which he states are secondary to weakness. He reports having back pain with ambulation. He denies having any syncopal episodes. He denies any chest pain or pressure. He denies any shortness of breath. He denies any dizziness or lightheadedness. Patient has a known history of atrial fibrillation. He is not anticoagulated on an outpatient basis due to history of ITP. Telemetry reviewed revealing atrial fibrillation with pauses of less than 3 seconds, mostly at night when he is sleeping. DIAGNOSTICS: - EKG reveals atrial fibrillation with slow ventricular rate - Chest xray no acute cardiopulmonary process. - Laboratory data: WBC 7.29. Hemoglobin 11.9. Platelet count 67. Sodium 139. Potassium 3.9. BUN 18.9. Creatinine 1.1. TSH 2.430. Troponin 0.051. 0.041. 0.037. 0.058. - Current home cardiac medications include hydralazine 50 mg 3 times daily, amlodipine 5 mg twice daily, Crestor 5 mg at night, metoprolol tartrate 100 mg twice daily, aspirin 81 mg daily - Most recent echocardiogram obtained in May 2024 revealing normal LV size and systolic function, moderate AI, moderate TR, moderate MR, moderate pulmonary hypertension -Patient underwent stress testing in April 2019 which was negative for ischemia REVIEW OF SYSTEMS: At the time of my exam: CONSTITUTIONAL: Denies fever or chills. HEENT: Denies blurred vision, vision changes, or eye pain. Denies hemoptysis CARDIOVASCULAR: Denies chest pain. Denies orthopnea. Denies PND. Denies palpitations RESPIRATORY: Denies shortness of breath. GASTROINTESTINAL: Denies abdominal pain. Denies nausea or vomiting. HEMATOLOGIC: Denies bleeding disorders. GENITOURINARY: Denies any blood in urine. SKIN: Denies pruitis. Denies rash. PHYSICAL EXAM: VITAL SIGNS: Reviewed. GENERAL: Well-developed in no acute distress. HEENT: Head is normocephalic. Pupils are equal, round. Sclerae anicteric. Mucous membranes of the mouth are moist. Neck supple. No JVD or thyromegaly LUNGS: Respirations even and unlabored. Lungs essentially clear to auscultation bilaterally. HEART: Irregular rate and rhythm. S1 and S2 heard. 3/6 systolic ejection murmur ABDOMEN: Soft. Nondistended. Nontender. EXTREMITIES: Normal range of motion. No clubbing or cyanosis. Peripheral pulses intact. No lower extremity edema NEUROLOGIC: Awake and alert. Oriented x 3. ASSESSMENT: Recurrent falls Generalized weakness Persistent atrial fibrillation with slow ventricular rate and pauses of less than 3 seconds while sleeping Abnormal troponins, flat, of unclear clinical significance, no evidence of acute coronary syndrome History of ITP, follows with Dr. Winn Hypertension Hyperlipidemia Valvular heart disease including moderate AI, moderate TR, moderate MR Moderate pulmonary hypertension Chronic kidney disease with previous renal transplant Diabetes Chronic back pain History of chronic DVT PLAN: An acute coronary event has been ruled out Obtain 2D echo to assess cardiac structure and function TSH checked and within normal limits Decrease metoprolol tartrate to 50 mg twice daily Patient with episodes of bradycardia and pauses of less than 3 seconds, mainly at night while patient is sleeping. No indication for pacemaker implantation at this time. Unlikely to be the cause of patient's symptoms. Will continue telemetry monitoring Patient to undergo Lexiscan stress test today Consult Dr. Winn for recommendations regarding anticoagulation Further recommendations pending patient course Nurse practitioner note has been reviewed by physician. Signing provider agrees with the documented findings, assessment, and plan of care documented by SHARE HOLDER as a scribe. Past Medical History Past Medical History: Atrial Fibrillation, Blood Disorder, Coronary Artery Disease (CAD), Cancer, Diabetes Mellitus, Hearing Disorder / Deafness, Hyperlipidemia, Hypertension, Osteoarthritis (OA), Pneumonia, Prostate Disorder, Renal Disease, Thyroid Disorder Additional Past Medical History / Comment(s): polio at 6, back pain, melanoma taken off of left ear & left shoulder, "slow growing cancer of prostate, being watched by Dr Dasilva." Hard of hearing, LOW PLATELETS, Jul 2023 UTI & pneumonia hospitalized at [facility] and went to [facility] for rehab; "old blood clot in right leg", orthostatic hypotension, frequent falls, uses walker History of Any Multi-Drug Resistant Organisms: ESBL Date of last positivie culture/infection: 10/09/24 MDRO Source:: urine Past Surgical History: Back Surgery, Coronary Bypass/CABG, Ear Surgery, Orthopedic Surgery Additional Past Surgical History / Comment(s): KYPHOPLASTY AND BX (NEG) 2021. Left kidney transplant 2002, parathyroid surgery, arthroscopy knee surgery, pericardiocentesis, cancer removed from left ear Past Anesthesia/Blood Transfusion Reactions: No Reported Reaction Past Psychological History: Anxiety, Depression Additional Psychological History / Comment(s): Pt resides with spouse. Smoking Status: Unknown if ever smoked Past Alcohol Use History: None Reported Past Drug Use History: None Reported - Past Family History Father Family Medical History: Deep Vein Thrombosis (DVT) Son(s) Family Medical History: Cancer Mother Family Medical History: Cancer Additional Family Medical History / Comment(s): . Medications and Allergies Home Medications Medication Instructions Recorded Confirmed Type Finasteride [Proscar] 5 mg PO DAILY 02/09/17 11/10/24 History Tamsulosin HCl [Flomax] 0.4 mg PO DAILY 02/09/17 11/10/24 History Multivitamins, Thera [Multivitamin 1 tab PO DAILY 12/31/18 11/10/24 History (formulary)] Vit C/E/Zn/Coppr/Lutein/Zeaxan 1 cap PO HS 12/18/19 11/10/24 History [Preservision Areds 2 Softgel] Pantoprazole [Protonix] 40 mg PO DAILY 12/28/19 11/10/24 History Tacrolimus [Prograf] 1 mg PO BID 04/03/20 11/10/24 History DULoxetine HCL [Cymbalta] 120 mg PO DAILY 12/01/20 11/10/24 History Levothyroxine Sodium [Synthroid] 75 mcg PO DAILY 12/01/20 11/10/24 History Aspirin 81 mg PO DAILY 07/12/21 11/10/24 History QUEtiapine [SEROquel] 100 mg PO HS 07/12/21 11/10/24 History Rosuvastatin Calcium [Crestor] 5 mg PO HS 07/12/21 11/10/24 History Sodium Bicarbonate Tab 650 mg PO BID 07/12/21 11/10/24 History rOPINIRole HCL [Requip] 1 mg PO HS 09/02/21 11/10/24 History Eltrombopag Olamine [Promacta] 12.5 mg PO DAILY@0700 05/31/23 11/10/24 History Magnesium Oxide [Mag-Ox] 400 mg PO DAILY tab 06/07/23 11/10/24 Rx Loperamide [Imodium] 2 mg PO QID PRN #24 cap 08/09/23 11/10/24 Rx mycophenolate mofetiL [Cellcept] 250 mg PO BID #0 08/09/23 11/10/24 Rx Ferrous Sulfate [Iron] 325 mg PO DAILY 03/18/24 11/10/24 History Gabapentin [Neurontin] 400 mg PO HS 10/22/24 11/10/24 History Metoprolol Tartrate [Lopressor] 100 mg PO BID 10/22/24 11/10/24 History Vibegron [Gemtesa] 75 mg PO DAILY 10/22/24 11/10/24 History hydrALAZINE HCL [Apresoline] 100 mg PO TID PRN 10/22/24 11/10/24 History predniSONE 5 mg PO DAILY 10/22/24 11/10/24 History Acetaminophen Tab [Tylenol] 650 mg PO Q6HR PRN tab 10/31/24 11/10/24 Rx Insulin Glargine/Lixisenatide 20 units SQ DAILY #0 10/31/24 11/10/24 Rx [Soliqua 100 Unit-33 Mcg/ml Pen] hydrALAZINE HCL [Apresoline] 50 mg PO TID #90 tab 10/31/24 11/10/24 Rx amLODIPine [Norvasc] 5 mg PO BID #60 tab 11/01/24 11/10/24 Rx Insulin Lispro [humaLOG Kwikpen] See Protocol SQ AC-TID 11/04/24 11/10/24 History Mirabegron [Myrbetriq] 50 mg PO DAILY 11/10/24 11/10/24 History Allergies Allergy/AdvReac Type Severity Reaction Status Date / Time morphine Allergy Severe Itching Verified 11/04/24 21:15 Physical Exam Vitals: Vital Signs Temp Pulse Pulse Pulse Resp BP BP 11/11/24 08:26 11/11/24 06:21 98.2 F 69 20 156/83 11/11/24 01:08 97.8 F 57 L 18 110/53 11/10/24 21:50 85 18 11/10/24 19:00 98.1 F 85 18 132/75 11/10/24 13:59 97.7 F 69 18 170/90 11/10/24 13:21 98.7 F 86 17 177/86 11/10/24 11:50 84 18 173/92 Pulse Ox 11/11/24 08:26 98 11/11/24 06:21 99 11/11/24 01:08 98 11/10/24 21:50 11/10/24 19:00 97 11/10/24 13:59 98 11/10/24 13:21 99 11/10/24 11:50 99 Intake and Output 11/10/24 11/11/24 11/11/24 22:59 06:59 14:59 Intake Total 118 Balance 118 Intake: Oral 118 Other: Voiding Method Diaper Urinal Diaper # Voids 1 1 Results 11/11/24 04:17 11/11/24 04:17 Cardiac Enzymes 11/10/24 11/10/24 11/11/24 Range/Units 12:12 15:30 04:17 Troponin I 0.041 H* 0.037 H* 0.058 H* (0.000-0.034) ng/mL CBC 11/11/24 Range/Units 04:17 WBC 7.29 (4.50-10.00) X 10*3/uL RBC 4.21 L (4.40-5.60) X 10*6/uL Hgb 11.9 L (13.0-17.0) g/dL Hct 38.3 L (39.6-50.0) % Plt Count 67 L (140-440) X 10*3/uL Comprehensive Metabolic Panel 11/11/24 Range/Units 04:17 Sodium 139 (135-145) mmol/L Potassium 3.9 (3.5-5.5) mmol/L Chloride 106 (96-109) mmol/L Carbon Dioxide 24.9 (21.6-31.8) mmol/L BUN 18.9 (9.0-27.0) mg/dL Creatinine 1.1 (0.6-1.5) mg/dL Glucose 123 H (70-110) mg/dL Calcium 8.2 L (8.7-10.3) mg/dL Current Medications Generic Name Dose Route Start Last Admin Trade Name Freq PRN Reason Stop Dose Admin Acetaminophen 650 mg 11/10/24 15:42 Acetaminophen Tab 325 Mg Tab PO Q6HR PRN Mild Pain or Fever > 100.5 Aminophylline 100 mg 11/11/24 08:47 Aminophylline 500 Mg/20 Ml Vial IV 11/11/24 12:48 ONCE PRN Patient Response Amlodipine Besylate 5 mg 11/10/24 21:00 11/11/24 09:03 Amlodipine 5 Mg Tab PO 5 mg BID [place] Administration Aspirin 81 mg 11/11/24 09:00 11/11/24 09:03 Aspirin 81 Mg PO 81 mg DAILY [place] Administration Atorvastatin Calcium 10 mg 11/10/24 21:00 11/10/24 21:58 Atorvastatin 10 Mg Tab PO 10 mg HS [place] Administration Caffeine Citrate 60 mg 11/11/24 08:47 Caffeine Citrate 60 Mg/3 Ml Vial IV 11/11/24 12:48 ONCE PRN Patient Response Duloxetine HCl 120 mg 11/11/24 09:00 11/11/24 09:03 Duloxetine Hcl 60 Mg Capsule.Dr PO 120 mg DAILY [place] Administration Ferrous Sulfate 325 mg 11/11/24 09:00 11/11/24 09:02 Ferrous Sulfate 325 Mg Tab PO 325 mg DAILY [place] Administration Finasteride 5 mg 11/11/24 09:00 11/11/24 09:02 Finasteride 5 Mg Tab PO 5 mg DAILY [place] Administration Gabapentin 400 mg 11/10/24 21:00 11/10/24 21:58 Gabapentin 400 Mg Cap PO 400 mg HS [place] Administration Hydralazine HCl 50 mg 11/10/24 16:00 11/11/24 09:02 Hydralazine Hcl 50 Mg Tab PO 50 mg TID [place] Administration Hydralazine HCl 100 mg 11/10/24 15:42 Hydralazine Hcl 50 Mg Tab PO TID PRN BP>140 Insulin Human Lispro 0 unit 11/10/24 17:30 11/11/24 05:37 Insulin Lispro (Humalog) 100 Unit/Ml 10 Ml Vl SQ Not Given ACHS [place] Protocol Levothyroxine Sodium 75 mcg 11/11/24 06:30 11/11/24 05:56 Levothyroxine 75 Mcg Tab PO 75 mcg 0630 [place] Administration Loperamide HCl 2 mg 11/10/24 15:42 Loperamide 2 Mg Cap PO QID PRN Diarrhea Magnesium Oxide 400 mg 11/11/24 09:00 11/11/24 09:06 Magnesium Oxide 400 Mg Tab PO 400 mg DAILY [place] Administration Metoprolol Tartrate 50 mg 11/11/24 09:00 11/11/24 09:06 Metoprolol Tartrate 50 Mg Tab PO 50 mg BID [place] Administration Multivitamins 1 each 11/11/24 09:00 11/11/24 09:02 Multivitamins, Thera 1 Each Tab PO 1 each DAILY [place] Administration Multivitamins/Minerals 1 each 11/10/24 21:00 11/10/24 21:58 Vit A,C & Z-Ehotkt-Ggfkrbyg 1 Each Tab PO 1 each HS [place] Administration Mycophenolate Mofetil 250 mg 11/10/24 21:00 11/11/24 09:02 Mycophenolate Mofetil 250 Mg Cap PO 250 mg BID [place] Administration Nitroglycerin 0.4 mg 11/10/24 10:10 Nitroglycerin Sl Tabs 0.4 Mg Tab SUBLINGUAL Q5M PRN Chest Pain Patient's Own ( 20 units 11/11/24 09:00 11/11/24 09:07 Insulin Glargine/ SQ Not Given Lixisenatide [ DAILY [place] Soliqua 100 Unit-33 Mcg/Ml Pen] 3 Ml In Patient's Own ( 50 mg 11/11/24 09:00 11/11/24 09:07 Mirabegron [ PO Not Given Myrbetriq] 50 Mg Tab DAILY [place] .Er.24h) Patient's Own ( 75 mg 11/11/24 09:00 11/11/24 09:03 Vibegron [Gemtesa] PO 75 mg 75 Mg Tablet) DAILY [place] Administration Patient's Own ( 12.5 mg 11/10/24 18:00 11/11/24 05:59 Eltrombopag Olamine PO Not Given [Promacta] 12.5 Mg DAILY@0700 [place] Tablet) Pantoprazole Sodium 40 mg 11/11/24 09:00 11/11/24 09:02 Pantoprazole 40 Mg Tablet PO 40 mg DAILY [place] Administration Prednisone 5 mg 11/11/24 09:00 11/11/24 09:03 Prednisone 5 Mg Tab PO 5 mg DAILY [place] Administration Quetiapine Fumarate 100 mg 11/10/24 21:00 11/10/24 21:58 Quetiapine 100 Mg Tab PO 100 mg HS [place] Administration Regadenoson 0.4 mg 11/11/24 08:47 Regadenoson 0.4 Mg/5 Ml Syringe IV 11/11/24 12:48 ONCE PRN Per Protocol Ropinirole HCl 1 mg 11/10/24 21:00 11/10/24 21:58 Ropinirole Hcl 1 Mg Tab PO 1 mg HS [place] Administration Sodium Bicarbonate 650 mg 11/10/24 21:00 11/11/24 09:03 Sodium Bicarbonate Tab 650 Mg Tab PO 650 mg BID [place] Administration Tacrolimus 1 mg 11/10/24 21:00 11/11/24 09:02 Tacrolimus 1 Mg Cap PO 1 mg BID [place] Administration Tamsulosin HCl 0.4 mg 11/11/24 09:00 11/11/24 09:03 Tamsulosin 0.4 Mg Cap.Er.24h PO 0.4 mg DAILY [place] Administration Intake and Output 11/10/24 11/11/24 11/11/24 22:59 06:59 14:59 Intake Total 118 Balance 118 Intake: Oral 118 Other: Voiding Method Diaper Urinal Diaper # Voids 1 1 11/11/24 04:17 11/11/24 04:17
--- NOTE | 2024-11-11 11:51 | P.NPCON ---
History of Present Illness - Reason for Consult chronic renal failure - History of Present Illness Reason for consultation: Renal transplant management History of present illness: Patient is 84-year-old male seen in renal consultation for renal transplant management. Patient received donor renal transplant 2002. Patient's baseline creatinine is around 1.2. Patient was recently admitted with weakness and falls and was noted to have ESBL E. coli UTI and bacteremia. Patient has completed antibiotics. He is maintained on Prograf, CellCept and prednisone for antirejection meds. Patient came to the hospital due to fall. Patient states he fell in the bathroom and has been progressively feeling weaker. Patient has been undergoing physical therapy. It is noted in the chart the patient was also somewhat confused. He denies fever or chills. No vomiting or diarrhea. Oral intake has been fair. GFR is at baseline. He has been seen by cardiology and echocardiogram is pending. Stress test is also scheduled for today. Patient has history of diabetes. Vital signs are stable. General: No acute distress. HEENT: Head exam is unremarkable. LUNGS: No audible rhonchi or wheezes. HEART: Rate and Rhythm are regular. ABDOMEN: Nontender. EXTREMITITES: No edema. Past Medical History Past Medical History: Atrial Fibrillation, Blood Disorder, Coronary Artery Disease (CAD), Cancer, Diabetes Mellitus, Hearing Disorder / Deafness, Hyperlipidemia, Hypertension, Osteoarthritis (OA), Pneumonia, Prostate Disorder, Renal Disease, Thyroid Disorder Additional Past Medical History / Comment(s): polio at 6, back pain, melanoma taken off of left ear & left shoulder, "slow growing cancer of prostate, being watched by Dr Dasilva." Hard of hearing, LOW PLATELETS, Jul 2023 UTI & pneumonia hospitalized at [facility] and went to [facility] for rehab; "old blood clot in right leg", orthostatic hypotension, frequent falls, uses walker History of Any Multi-Drug Resistant Organisms: ESBL Date of last positivie culture/infection: 10/09/24 MDRO Source:: urine Past Surgical History: Back Surgery, Coronary Bypass/CABG, Ear Surgery, Orthopedic Surgery Additional Past Surgical History / Comment(s): KYPHOPLASTY AND BX (NEG) 2021. Left kidney transplant 2002, parathyroid surgery, arthroscopy knee surgery, pericardiocentesis, cancer removed from left ear Past Anesthesia/Blood Transfusion Reactions: No Reported Reaction Past Psychological History: Anxiety, Depression Additional Psychological History / Comment(s): Pt resides with spouse. Smoking Status: Unknown if ever smoked Past Alcohol Use History: None Reported Past Drug Use History: None Reported - Past Family History Father Family Medical History: Deep Vein Thrombosis (DVT) Son(s) Family Medical History: Cancer Mother Family Medical History: Cancer Additional Family Medical History / Comment(s): . Medications and Allergies Home Medications Medication Instructions Recorded Confirmed Type Finasteride [Proscar] 5 mg PO DAILY 02/09/17 11/10/24 History Tamsulosin HCl [Flomax] 0.4 mg PO DAILY 02/09/17 11/10/24 History Multivitamins, Thera [Multivitamin 1 tab PO DAILY 12/31/18 11/10/24 History (formulary)] Vit C/E/Zn/Coppr/Lutein/Zeaxan 1 cap PO HS 12/18/19 11/10/24 History [Preservision Areds 2 Softgel] Pantoprazole [Protonix] 40 mg PO DAILY 12/28/19 11/10/24 History Tacrolimus [Prograf] 1 mg PO BID 04/03/20 11/10/24 History DULoxetine HCL [Cymbalta] 120 mg PO DAILY 12/01/20 11/10/24 History Levothyroxine Sodium [Synthroid] 75 mcg PO DAILY 12/01/20 11/10/24 History Aspirin 81 mg PO DAILY 07/12/21 11/10/24 History QUEtiapine [SEROquel] 100 mg PO HS 07/12/21 11/10/24 History Rosuvastatin Calcium [Crestor] 5 mg PO HS 07/12/21 11/10/24 History Sodium Bicarbonate Tab 650 mg PO BID 07/12/21 11/10/24 History rOPINIRole HCL [Requip] 1 mg PO HS 09/02/21 11/10/24 History Eltrombopag Olamine [Promacta] 12.5 mg PO DAILY@0700 05/31/23 11/10/24 History Magnesium Oxide [Mag-Ox] 400 mg PO DAILY tab 06/07/23 11/10/24 Rx Loperamide [Imodium] 2 mg PO QID PRN #24 cap 08/09/23 11/10/24 Rx mycophenolate mofetiL [Cellcept] 250 mg PO BID #0 08/09/23 11/10/24 Rx Ferrous Sulfate [Iron] 325 mg PO DAILY 03/18/24 11/10/24 History Gabapentin [Neurontin] 400 mg PO HS 10/22/24 11/10/24 History Metoprolol Tartrate [Lopressor] 100 mg PO BID 10/22/24 11/10/24 History Vibegron [Gemtesa] 75 mg PO DAILY 10/22/24 11/10/24 History hydrALAZINE HCL [Apresoline] 100 mg PO TID PRN 10/22/24 11/10/24 History predniSONE 5 mg PO DAILY 10/22/24 11/10/24 History Acetaminophen Tab [Tylenol] 650 mg PO Q6HR PRN tab 10/31/24 11/10/24 Rx Insulin Glargine/Lixisenatide 20 units SQ DAILY #0 10/31/24 11/10/24 Rx [Soliqua 100 Unit-33 Mcg/ml Pen] hydrALAZINE HCL [Apresoline] 50 mg PO TID #90 tab 10/31/24 11/10/24 Rx amLODIPine [Norvasc] 5 mg PO BID #60 tab 11/01/24 11/10/24 Rx Insulin Lispro [humaLOG Kwikpen] See Protocol SQ AC-TID 11/04/24 11/10/24 History Mirabegron [Myrbetriq] 50 mg PO DAILY 11/10/24 11/10/24 History Allergies Allergy/AdvReac Type Severity Reaction Status Date / Time morphine Allergy Severe Itching Verified 11/04/24 21:15 Physical Exam Vitals: Vital Signs Temp Pulse Pulse Pulse Resp BP BP 11/11/24 08:26 11/11/24 06:21 98.2 F 69 20 156/83 11/11/24 01:08 97.8 F 57 L 18 110/53 11/10/24 21:50 85 18 11/10/24 19:00 98.1 F 85 18 132/75 11/10/24 13:59 97.7 F 69 18 170/90 11/10/24 13:21 98.7 F 86 17 177/86 11/10/24 11:50 84 18 173/92 Pulse Ox 11/11/24 08:26 98 11/11/24 06:21 99 11/11/24 01:08 98 11/10/24 21:50 04/20/25 19:00 97 11/10/24 13:59 98 11/10/24 13:21 99 11/10/24 11:50 99 Intake and Output 11/10/24 11/11/24 11/11/24 22:59 06:59 14:59 Intake Total 118 Balance 118 Intake: Oral 118 Other: Voiding Method Diaper Urinal Urinal Diaper Diaper # Voids 1 1 Results - Lab Results Most recent lab results Calcium 8.2 mg/dL (8.7-10.3) L 11/11/24 04:17 Magnesium 1.6 mg/dL (1.6-2.3) 11/10/24 06:25 11/11/24 04:17 11/11/24 04:17 Assessment and Plan Plan: Assessment: 1. Status post donor renal transplant in 2002. 2. 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 3. Generalized weakness and falls. 4. Recent E. coli bacteremia and UTI status post antibiotics. 5. Hypertension with chronic kidney disease. Stable. Plan: Encouraged oral intake. Maintain antirejection meds. Check a.m. Prograf level. Avoid nephrotoxins. Continue to monitor renal function and urine output. Follow-up echocardiogram. Thank you for the consultation. I will continue to follow the patient with you during his hospital stay.
[2024-11-11 12:21] LABS: Glucose,Whole Blood 155 mg/dL (70-110)
--- NOTE | 2024-11-11 12:57 | CA ---
Lexiscan Nuclear Stress Test Report Name: Chet Lobo Exam Date: 11/11/2024 10:42 Exam Location: [facility] Ht (in): 68 Wt (lb): 200 BSA: 2.04 Ordering Phys: Marline Douglas Referring Phys: JOAN Technologist: RAW Age: 84 Gender: M : 1940 Procedure CPT: Indications: Reflex order-Stress test ICD-10 Codes: Patient History: Elevated trops Medications: SEE CHART,,, Meds past 24 hrs: Pretest Chest Pain: STRESS TEST Lexiscan Protocol Exercise Duration (min:sec): 02:[address] Depressions (mm): Angina Score: Jerez Score: Resting HR (bpm): 62 Peak HR (bpm): 88 Resting BP (mmHg): 123 / 67 Peak BP (mmHg): 102 / 53 MPHR: 138 Target HR: 117 % MPHR: 64 METS: 1.0 Total Dose: Peak Dose: Atropine: Double Product: 8976 BP Response: Stress Termination: INFUSION COMPLETE Stress Symptoms: NO SYMPTOMS Stress Summary: ECG ANALYSIS Resting ECG: Sinus rhythm. Normal conduction. No arrhythmias. Nonspecific ST-T abnormality. Stress ECG: No ECG changes from baseline with Lexiscan infusion. CONCLUSIONS No ECG evidence of ischemia with Lexiscan infusion. Nuclear test results to follow. Dr. Andra Linder MD (Electronically Signed) Final Date: 11 November 2024 12:56
[2024-11-11 17:14] LABS: Glucose,Whole Blood 247 mg/dL (70-110)
--- NOTE | 2024-11-11 19:04 | P.PN ---
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 According to his at bedside patient fell about 4 times and 3 times she was able to get up and he felt very weak and could not get up himself for for the time. He has been having generalized weakness. He was also being confused and delirious could not sleep overnight. Patient had recent hospitalization for UTI and sepsis. He was discharged on 11/06/2024. He was found to have ESBL E. coli urinary tract infection and was discharged after completing Invanz for 10-day course. Objective - Vital Signs Vital signs: Vital Signs Temp 97.5 F L 11/11/24 14:20 Pulse 74 11/11/24 14:20 Resp 17 11/11/24 14:20 BP 108/65 11/11/24 16:20 Pulse Ox 97 11/11/24 14:20 FiO2 Intake & Output 11/10/24 11/11/24 11/11/24 18:59 06:59 18:59 Intake Total 118 118 Balance 118 118 Weight 90.718 kg Intake: Oral 118 118 Other: Voiding Method Diaper Urinal Urinal Diaper Diaper # Voids 1 3 # Bowel Movements 1 - Exam GENERAL: This is a 84-year-old in no apparent distress at the time of examination. Pleasant and cooperative. HEENT: Head is atraumatic, normocephalic. Pupils are equal, round, and reactive to light. Sclerae anicteric. Conjunctivae are clear. RESPIRATORY: Clear to auscultation. No wheezes, rales, or rhonchi. No use of accessory muscles. CARDIOVASCULAR: Regular rate and rhythm. S1 and S2 noted. GASTROINTESTINAL: No distention noted. Abdomen soft and round. Normal active bowel sounds auscultated x 4 quadrants. No pain or tenderness noted upon palpation. INTEGUMENTARY: No cyanosis. No jaundice. No rashes noted. No cellulitis noted. EXTREMITIES: 2+ peripheral pulses. No evidence of peripheral edema. No calf tenderness noted. NEUROLOGIC: Cranial nerves II-XII intact. PSYCHIATRIC: Awake, alert, and oriented X 3. - Labs CBC & Chem 7: 11/11/24 04:17 11/11/24 04:17 Labs: Abnormal Lab Results - Last 24 Hours (Table) 11/10/24 11/11/24 11/11/24 Range/Units 19:47 04:17 04:17 RBC 4.21 L (4.40-5.60) X 10*6/uL Hgb 11.9 L (13.0-17.0) g/dL Hct 38.3 L (39.6-50.0) % MCHC 31.1 L (32.0-37.0) g/dL RDW 15.0 H (11.5-14.5) % Plt Count 67 L (140-440) X 10*3/uL Glucose 123 H (70-110) mg/dL POC Glucose (mg/dL) 216 H (70-110) mg/dL Calcium 8.2 L (8.7-10.3) mg/dL Troponin I (0.000-0.034) ng/mL 11/11/24 11/11/24 11/11/24 Range/Units 04:17 05:32 12:19 RBC (4.40-5.60) X 10*6/uL Hgb (13.0-17.0) g/dL Hct (39.6-50.0) % MCHC (32.0-37.0) g/dL RDW (11.5-14.5) % Plt Count (140-440) X 10*3/uL Glucose (70-110) mg/dL POC Glucose (mg/dL) 117 H 155 H (70-110) mg/dL Calcium (8.7-10.3) mg/dL Troponin I 0.058 H* (0.000-0.034) ng/mL 11/11/24 Range/Units 17:13 RBC (4.40-5.60) X 10*6/uL Hgb (13.0-17.0) g/dL Hct (39.6-50.0) % MCHC (32.0-37.0) g/dL RDW (11.5-14.5) % Plt Count (140-440) X 10*3/uL Glucose (70-110) mg/dL POC Glucose (mg/dL) 247 H (70-110) mg/dL Calcium (8.7-10.3) mg/dL Troponin I (0.000-0.034) ng/mL Assessment and Plan (1) Multiple falls Current Visit: Yes Status: Acute Code(s): R29.6 - REPEATED FALLS SNOMED Code(s): 547996223 (2) Weakness Current Visit: Yes Status: Acute Code(s): R53.1 - WEAKNESS SNOMED Code(s): 19435750 (3) ARF (acute renal failure) Current Visit: No Status: Acute Code(s): N17.9 - ACUTE KIDNEY FAILURE, UNSPECIFIED SNOMED Code(s): 51728529 (4) Altered mental status Current Visit: No Status: Acute Code(s): R41.82 - ALTERED MENTAL STATUS, UNSPECIFIED SNOMED Code(s): 016869172 (5) Hallucinations Current Visit: No Status: Acute Code(s): R44.3 - HALLUCINATIONS, UNSPECIFIED SNOMED Code(s): 9434387 (6) History of anxiety Current Visit: No Status: Acute Code(s): Z86.59 - PERSONAL HISTORY OF OTHER MENTAL AND BEHAVIORAL DISORDERS SNOMED Code(s): 917610708 (7) History of infection due to ESBL Escherichia coli Current Visit: No Status: Acute Code(s): Z86.19 - PERSONAL HISTORY OF OTHER INFECTIOUS AND PARASITIC DISEASES SNOMED Code(s): 411126334 (8) Hyperlipidemia Current Visit: No Status: Acute Code(s): E78.5 - HYPERLIPIDEMIA, UNSPECIFIED SNOMED Code(s): 63994751 (9) Hypertension Current Visit: No Status: Acute Code(s): I10 - ESSENTIAL (PRIMARY) HYPERTENSION SNOMED Code(s): 98671487 (10) Longstanding persistent atrial fibrillation Current Visit: No Status: Acute Code(s): I48.11 - LONGSTANDING PERSISTENT ATRIAL FIBRILLATION SNOMED Code(s): 378477029 (11) History of renal transplant Current Visit: No Status: Chronic Priority: Medium Code(s): Z94.0 - KIDNEY TRANSPLANT STATUS SNOMED Code(s): 651494339 (12) Idiopathic thrombocytopenia purpura Current Visit: No Status: Chronic Priority: High Code(s): D69.3 - IMMUNE THROMBOCYTOPENIC PURPURA SNOMED Code(s): 1090863 Plan: Today n.p.o. for nuclear stress test and echocardiogram to assess current cardiac function patient is alert and cooperative however is weak he has been having nightly hallucinations but he is alert and orientated x 3 today again recommend placement at discharge however patient has failed to meet criteria and his last 2 admissions from his insurance. His recent discharge on the he was set up with an aggressive outpatient physical therapy which he failed with multiple falls. Time with Patient: Greater than 30
[2024-11-11 19:18] LABS: Glucose,Whole Blood 296 mg/dL (70-110)
[2024-11-12 06:17] LABS: Glucose,Whole Blood 231 mg/dL (70-110)
--- NOTE | 2024-11-12 07:10 | CA ---
Transthoracic Echo Report Name: Chet Lobo Age: 84 Gender: M : 1940 Exam Date: 11/11/2024 14:52 Exam Location: [facility] Ht (in): 68 Wt (lb): 200 Ordering Physician: Marline Douglas Attending/Referring Phys: [id number], Stella Ampoule Filler [employer] Sealer Genna Guerra, MICHELLE Procedure CPT: Indications: lv function, falls, afib Cardiac Hx: Technical Quality: Fair Contrast 1: Total Dose (mL): Contrast 2: Total Dose (mL): MEASUREMENTS (Male / Female) Normal Values 2D ECHO LV Diastolic Diameter PLAX 3.7 cm 4.2 - 5.9 / 3.9 - 5.3 cm LV Systolic Diameter PLAX 2.7 cm IVS Diastolic Thickness 1.7 cm 0.6 - 1.0 / 0.6 - 0.9 cm LVPW Diastolic Thickness 1.5 cm 0.6 - 1.0 / 0.6 - 0.9 cm LV Relative Wall Thickness 0.9 RV Internal Dim ED PLAX 2.8 cm LVOT Diameter 2.3 cm LA Systolic Diameter LX 5.1 cm 3.0 - 4.0 / 2.7 - 3.8 cm LV Diastolic Volume MOD BP 52.9 cm??? 67 - 155 / 56 - 104 cm??? LV Systolic Volume MOD BP 20.7 cm??? 22 - 58 / 19 - 49 cm??? LV Ejection Fraction MOD BP 60.9 % >= 55 % LV Cardiac Index MOD BP 1053.6 cm???/min???m??? LV Diastolic Volume MOD 4C 51.5 cm??? LV Systolic Volume MOD 4C 22.9 cm??? LV Ejection Fraction MOD 4C 55.4 % LV Cardiac Index MOD 4C 931.5 cm???/min???m??? LV Diastolic Length 4C 7.0 cm LV Systolic Length 4C 6.3 cm LV Diastolic Volume MOD 2C 52.5 cm??? LV Systolic Volume MOD 2C 15.9 cm??? LV Ejection Fraction MOD 2C 69.8 % LV Cardiac Index MOD 2C 1197.8 cm???/min???m??? LV Diastolic Length 2C 6.5 cm LV Systolic Length 2C 5.3 cm M-MODE Aortic Root Diameter MM 4.1 cm LA Systolic Diameter MM 3.8 cm LA Ao Ratio MM 0.9 AV Cusp Separation MM 1.2 cm DOPPLER AV Peak Velocity 293.4 cm/s AV Peak Gradient 34.4 mmHg AV Mean Velocity 218.7 cm/s AV Mean Gradient 21.4 mmHg AV Velocity Time Integral 60.3 cm AI Peak Velocity 341.3 cm/s AI Peak Gradient 46.6 mmHg AI Pressure Half Time 481.8 ms LVOT Peak Velocity 111.0 cm/s LVOT Peak Gradient 4.9 mmHg LVOT Velocity Time Integral 27.1 cm LVOT Stroke Volume 116.5 cm??? LVOT Stroke Volume Index 57.0 ml/m??? LVOT Cardiac Index 3805.4 cm???/min???m??? AV Area Cont Eq vti 1.9 cm??? AV Area Cont Eq pk 1.6 cm??? Mitral E Point Velocity 128.8 cm/s Mitral A Point Velocity 2.5 cm/s Mitral E to A Ratio 50.8 MV Deceleration Time 230.7 ms MV E' Velocity 6.2 cm/s Mitral E to MV E' Ratio 20.7 TR Peak Velocity 285.3 cm/s TR Peak Gradient 32.6 mmHg FINDINGS Left Ventricle Left ventricular ejection fraction is estimated at 55-60 %. Normal left ventricular systolic function with no obvious regional wall motion abnormalities. Left ventricular cavity size normal. Moderately increased left ventricular wall thickness. Right Ventricle Normal right ventricular size and function. Right Atrium Moderate right atrial dilatation. Left Atrium Moderately increased left atrial diameter. Mitral Valve Structurally normal mitral valve. No mitral stenosis. [id number] mitral regurgitation.moderate mitral annular calcification. Aortic Valve Moderate aortic stenosis with a peak gradient of 34 mmHg and a mean gradient of 21 mmHg. Mild to moderate aortic regurgitation. Tricuspid Valve Structurally normal tricuspid valve. Mild tricuspid regurgitation. No tricuspid stenosis. Pulmonic Valve No pulmonic stenosis.pulmonic valve not well visualized. Pericardium No pericardial or pleural effusion. Echo free space anterior to the right ventricle likely represents a fat pad. Aorta Mild aortic dilatation at the level of the sinuses of valsalva (root). CONCLUSIONS 1. Normal left ventricular size and systolic function 2. Mild to moderate mitral regurgitation 3. Moderate aortic stenosis with mild to moderate aortic regurgitation 4. Mild tricuspid regurgitation Previewed by: Dr. Andra Linder MD (Electronically Signed) Final Date: 12 November 2024 07:09
--- NOTE | 2024-11-12 10:43 | NM ---
EXAMINATION TYPE: NM stress lexiscan cardiolite DATE OF EXAM: 11/12/2024 COMPARISON: NONE CLINICAL INDICATION: Male, 84 years old with history of elevated trops; TECHNIQUE: After the intravenous administration of 9.1 mCi Tc 99m Sestamibi - Cardiolite resting SPE CT images acquired 45 minutes post injection. The patient received 0.4mg Lexiscan, 26.0 mCi Tc 99m Sestamibi - Stress images obtained [address] injection FINDINGS: Review of stress and rest SPECT images demonstrates reversible ischemia involving the lateral wall. G ated analysis shows normal wall motion with an estimated left ventricular ejection fraction of 68 %. IMPRESSION: Correlate for reversible ischemia involving the lateral wall. [facility], , 11/12/2024 10:41 AM
--- NOTE | 2024-11-12 11:49 | P.PN ---
Subjective Patient is seen in follow-up for renal transplant management. GFR at baseline. Denies chest pain or shortness of breath. No active complaints. Vital signs are stable. General: No acute distress. HEENT: Head exam is unremarkable. LUNGS: No audible rhonchi or wheezes. HEART: Rate and Rhythm are regular. ABDOMEN: Nontender. EXTREMITITES: No edema. Objective - Vital Signs Vital signs: Vital Signs Temp 97.5 F L 11/12/24 11:10 Pulse 57 L 11/12/24 11:10 Resp 16 11/12/24 11:10 BP 121/72 11/12/24 11:10 Pulse Ox 98 11/12/24 11:10 FiO2 Intake & Output 11/11/24 11/12/24 11/12/24 18:59 06:59 18:59 Intake Total 118 658 Balance 118 658 Intake: Oral 118 658 Other: Voiding Method Urinal Urinal Urinal Diaper Diaper Diaper # Voids 3 1 # Bowel Movements 1 - Labs CBC & Chem 7: 11/11/24 04:17 11/11/24 04:17 Labs: Abnormal Lab Results - Last 24 Hours (Table) 11/11/24 11/11/24 11/11/24 Range/Units 12:19 17:13 19:16 POC Glucose (mg/dL) 155 H 247 H 296 H (70-110) mg/dL 11/12/24 Range/Units 06:15 POC Glucose (mg/dL) 231 H (70-110) mg/dL Assessment and Plan Plan: Assessment: 1. Status post donor renal transplant in 2002. 2. 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 3. Generalized weakness and falls. 4. Recent E. coli bacteremia and UTI status post antibiotics. 5. Hypertension with chronic kidney disease. Stable. 6. Chronic diastolic CHF with moderate aortic stenosis. Plan: Encouraged oral intake. Maintain antirejection meds. Follow-up a.m. Prograf level. Avoid nephrotoxins. Continue to monitor renal function and urine output. Reversible ischemia noted on stress test. Await further cardiology recommendations.
[2024-11-12 12:28] LABS: Glucose,Whole Blood 228 mg/dL (70-110)
--- NOTE | 2024-11-12 12:28 | P.PN ---
Subjective HISTORY OF PRESENT ILLNESS: This is a 84-year-old male with a past medical history significant for persistent atrial fibrillation, ITP, hypertension, hyperlipidemia, aortic stenosis, chronic kidney disease with previous renal transplant, diabetes, chronic back pain, and chronic DVT. Patient follows in the office with Dr. Crabtree. We have been asked to see the patient in consultation for elevated troponins. Patient examined at the bedside. Patient gives history that he was recently admitted to the hospital secondary to urinary tract infection. Patient presented to the hospital due to a fall. Patient states he has been having frequent falls at home which he states are secondary to weakness. He reports having back pain with ambulation. He denies having any syncopal episodes. He denies any chest pain or pressure. He denies any shortness of breath. He denies any dizziness or lightheadedness. Patient has a known history of atrial fibrillation. He is not anticoagulated on an outpatient basis due to history of ITP. Telemetry reviewed revealing atrial fibrillation with pauses of less than 3 seconds, mostly at night when he is sleeping. DIAGNOSTICS: - EKG reveals atrial fibrillation with slow ventricular rate - Chest xray no acute cardiopulmonary process. - Laboratory data: WBC 7.29. Hemoglobin 11.9. Platelet count 67. Sodium 139. Potassium 3.9. BUN 18.9. Creatinine 1.1. TSH 2.430. Troponin 0.051. 0.041. 0.037. 0.058. - Current home cardiac medications include hydralazine 50 mg 3 times daily, amlodipine 5 mg twice daily, Crestor 5 mg at night, metoprolol tartrate 100 mg twice daily, aspirin 81 mg daily - Most recent echocardiogram obtained in May 2024 revealing normal LV size and systolic function, moderate AI, moderate TR, moderate MR, moderate pulmonary hypertension -Patient underwent stress testing in April 2019 which was negative for ischemia 11/12/2024 Patient examined this morning to bedside. Patient currently denies chest pain or pressure. He denies shortness of breath. He remains in atrial fibrillation with controlled ventricular rate. Echocardiogram completed revealing ejection fraction 55 to 60%, mild to moderate mitral regurgitation, moderate aortic stenosis with peak gradient 34 mmHg and mean gradient 21 mmHg, mild to moderate aortic regurgitation, and mild aortic regurgitation. Lexiscan stress test revealed reversible ischemia involving the lateral wall. PHYSICAL EXAM: VITAL SIGNS: Reviewed. GENERAL: Well-developed in no acute distress. HEENT: Head is normocephalic. Pupils are equal, round. Sclerae anicteric. Mucous membranes of the mouth are moist. Neck supple. No JVD or thyromegaly LUNGS: Respirations even and unlabored. Lungs essentially clear to auscultation bilaterally. HEART: Irregular rate and rhythm. S1 and S2 heard. 3/6 systolic ejection murmur ABDOMEN: Soft. Nondistended. Nontender. EXTREMITIES: Normal range of motion. No clubbing or cyanosis. Peripheral pulses intact. No lower extremity edema NEUROLOGIC: Awake and alert. Oriented x 3. ASSESSMENT: Recurrent falls Generalized weakness Persistent atrial fibrillation with slow ventricular rate and pauses of less than 3 seconds while sleeping Abnormal troponins, flat, of unclear clinical significance, no evidence of acute coronary syndrome History of ITP, follows with Dr. Winn Hypertension Hyperlipidemia Valvular heart disease including moderate AI, moderate TR, moderate MR Moderate pulmonary hypertension Chronic kidney disease with previous renal transplant Diabetes Chronic back pain History of chronic DVT PLAN: Metoprolol decreased yesterday 50 mg twice a day Continue additional cardiac medications including amlodipine, aspirin, Lipitor, hydralazine, metoprolol Decrease hydralazine to 25 mg 3 times daily Patient with episodes of bradycardia and pauses of less than 3 seconds, mainly at night while patient is sleeping. No indication for pacemaker implantation at this time. Unlikely to be the cause of patient's symptoms. Will continue telemetry monitoring Lexiscan stress test revealed reversible ischemia involving lateral wall. Case discussed with patient's primary outboard technician, Dr. Crabtree. Will continue with medical management at this time with no plans for cardiac catheterization Hematology evaluated patient yesterday due to history of ITP. Patient was dustin med safe to begin anticoagulation from their standpoint. However patient does present with recurrent falls. We will hold off on initiating anticoagulation at this time. Patient may follow-up in the office with Dr. Crabtree and further evaluation will be required regarding either initiating anticoagulation at that time or referral for Watchman device. Stable for discharge from a cardiac standpoint Further recommendations pending patient course Nurse practitioner note has been reviewed by physician. Signing provider agrees with the documented findings, assessment, and plan of care documented by PCU RN as a scribe. Objective - Vital Signs Vital signs: Vital Signs Temp 97.5 F L 11/12/24 11:10 Pulse 57 L 11/12/24 11:10 Resp 16 11/12/24 11:10 BP 121/72 11/12/24 11:10 Pulse Ox 98 11/12/24 11:10 FiO2 Intake & Output 11/11/24 11/12/24 11/12/24 18:59 06:59 18:59 Intake Total 118 658 Balance 118 658 Intake: Oral 118 658 Other: Voiding Method Urinal Urinal Urinal Diaper Diaper Diaper # Voids 3 1 # Bowel Movements 1 - Labs CBC & Chem 7: 11/11/24 04:17 11/11/24 04:17 Labs: Abnormal Lab Results - Last 24 Hours (Table) 11/11/24 11/11/24 11/12/24 Range/Units 17:13 19:16 06:15 POC Glucose (mg/dL) 247 H 296 H 231 H (70-110) mg/dL
--- NOTE | 2024-11-12 12:43 | CDI ---
Documentation Clarification Form Date: 11/12/2024 12:21:44 PM From: Daisy Cruz RN CCDS Phone: [phone] Admit Date: 11/10/2024 11:33:00 AM Patient Name: Chet Lobo Visit Number: [id number] Discharge Date: ATTENTION: The Clinical Documentation Specialists (CDI) and [facility] Coding Staff appreciate your assistance in clarifying documentation. Please respond to the clarification below the line at the bottom and electronically sign. The CDI & [facility] Coding staff will review the response and follow-up if needed. Please note: Queries are made part of the Legal Health Record. If you have any questions, please contact the author of this message via ITS. Doctor: Narinder Rosenberg Conflicting documentation has been found in the medical record. As attending physician, please provide clarification. 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 History/Risk Factors: 84 year old male presents to the ED with frequent falls and unable to get up because of weakness and was confused and delirious and could not sleep overnight. Medical History: Recent admission for UTI discharged on Invanz, CHF, CAD, HTN DM2 and Atiral fib. 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 11/10: BUN 25; CR 1.23; GFR 55 11/11: BUN 18.9; CR 1.1; Treatment: 11/10 Sodium Bicarb po bid ; 11/10 Prograf po bid, 11/10 prednisone po daily, 11/10Cellcept po bid, 11/10 Avoid nephrotoxins 11/10 0.9ns 500cc IV Bolus x 1 Please clarify which diagnosis is most appropriate: [ ] Chronic kidney disease stage 3a [ ] Acute renal failure [ ] Other (please specify) [ ] Unable to determine Query answered on medicine progress note 11/14 Acute kidney injury ruled out JAYME Estes (Template Last Revised: September 2020) MTDD
--- NOTE | 2024-11-12 12:52 | P.PN ---
Subjective Progress Note Date: 11/12/24 Progress Note Date: 11/11/24 Patient is a 84-year-old male with a past medical history of coronary artery disease status post CABG, atrial fibrillation not on anticoagulation due to ITP, history of renal transplant on immunosuppressive therapy, CKD stage III yea, hypertension, hyperlipidemia, diabetes type 2 insulin-dependent, hypothyroidism, osteoarthritis, anxiety/depression.Patient was brought to the hospital due to frequent falls. According to his at bedside patient fell about 4 times and 3 times she was able to get up and he felt very weak and could not get up him self for for the time. He has been having generalized weakness. He was also being confused and delirious could not sleep overnight. Patient had recent hospitalization for UTI and sepsis. He was discharged on 11/06/2024. He was found to have ESBL E. coli urinary tract infection and was discharged after completing Invanz for 10-day course. 11/12/2024 patient continues to display generalized weakness, difficulty with balance-continued to have falls at home.PT evaluation pending. Consult for [facility] rehab in place. Patient was actually accepted last week at [facility] rehab but patient's insurance company would not give authorization. Denies chest pain, palpitations or shortness of breath. Echo reported EF of 55 to 60% mild to moderate mitral regurgitation, moderate aortic stenosis, mild to moderate aortic regurgitation and mild tricuspid regur gitation. Lexiscan stress test reported reversible ischemia involving lateral wall. Objective - Vital Signs Vital signs: Vital Signs Temp 97.5 F L 11/12/24 11:10 Pulse 57 L 11/12/24 11:10 Resp 16 11/12/24 11:10 BP 121/72 11/12/24 11:10 Pulse Ox 98 11/12/24 11:10 FiO2 Intake & Output 11/11/24 11/12/24 11/12/24 18:59 06:59 18:59 Intake Total 118 658 Balance 118 658 Intake: Oral 118 658 Other: Voiding Method Urinal Urinal Urinal Diaper Diaper Diaper # Voids 3 1 # Bowel Movements 1 - Exam GENERAL: Alert and oriented x 3, sitting up in chair, no acute distress, pleasant and cooperative. HEENT: Head is atraumatic, normocephalic. Pupils are equal, round, and reactive to light. Sclerae anicteric. Conjunctivae are clear. RESPIRATORY: Clear to auscultation. No wheezes, rales, or rhonchi. No use of accessory muscles. CARDIOVASCULAR: Regular rate and rhythm. S1 and S2 noted. Systolic murmur. GASTROINTESTINAL: Soft, nontender, nondistended. Positive bowel sounds. INTEGUMENTARY: No cyanosis. No jaundice. No rashes noted. No cellulitis noted. EXTREMITIES: 2+ peripheral pulses. No evidence of peripheral edema. No calf tenderness noted. NEUROLOGIC: Cranial nerves II-XII intact. 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.3 (4) Altered mental status, acute metabolic encephalopathy, multifactorial Current Visit: No Status: Acute Code(s): R41.82 - ALTERED MENTAL STATUS, UNSPECIFIED SNOMED Code(s): 362081950 (5) Hallucinations Current Visit: No Status: Acute Code(s): R44.3 - HALLUCINATIONS, UNSPECIFIED SNOMED Code(s): 9997765 (6) History of anxiety Current Visit: No Status: Acute Code(s): Z86.59 - PERSONAL HISTORY OF OTHER MENTAL AND BEHAVIORAL DISORDERS SNOMED Code(s): 125631016 (7) History of infection due to ESBL Escherichia coli Current Visit: No Status: Acute Code(s): Z86.19 - PERSONAL HISTORY OF OTHER INFECTIOUS AND PARASITIC DISEASES SNOMED Code(s): 836849290 (8) Hyperlipidemia Current Visit: No Status: Acute Code(s): E78.5 - HYPERLIPIDEMIA, UNSPECIFIED SNOMED Code(s): 14292277 (9) Hypertension Current Visit: No Status: Acute Code(s): I10 - ESSENTIAL (PRIMARY) HYPERTENSION SNOMED Code(s): 73346844 (10) Longstanding persistent atrial fibrillation Current Visit: No Status: Acute Code(s): I48.11 - LONGSTANDING PERSISTENT ATRIAL FIBRILLATION SNOMED Code(s): 123541620 (11) History of renal transplant Current Visit: No Status: Chronic Priority: Medium Code(s): Z94.0 - KIDNEY TRANSPLANT STATUS SNOMED Code(s): 570748005 (12) Idiopathic thrombocytopenia purpura, follows with Dr. Winn Current Visit: No Status: Chronic Priority: High Code(s): D69.3 - IMMUNE THROMBOCYTOPENIC PURPURA SNOMED Code(s): 1140114 (13) abnormal troponins, Lexiscan stress test with reversible ischemia involving lateral wall, maximizing medical therapy as per cardiology. (14) bradycardia, pauses of less than 3 seconds usually while sleeping, no pacemaker implantation recommended at this time as per cardiology. Plan: Continue on current medication regime ,monitoring and symptomatic treatment. PT recommending inpatient rehab./Subacute rehab. Cardiology recommending maximizing medical therapy and to hold off of anticoagulation at this time secondary to recurrent falls. to be further evaluated outpatient in clinic with cardiology regarding anticoagulation or referral for a Watchman device. Discharge planning in progress for inpatient rehab at [facility], pending insurance authorization. The impression and plan of care has been dictated as directed. : I performed a history and examination of this patient, discussed the same with the dictator. I agree with the dictator's note ,documented as a scribe. Any additional findings or plans will be noted.
--- NOTE | 2024-11-12 16:45 | P.CONS ---
History of Present Illness - Reason for Consult Consult date: 11/12/24 Rehab recommendations - Chief Complaint Falls - History of Present Illness Mr oLbo is an 84 yo male, who lives in a single story home, with 2 TAMIKO with right HR. Prior to admission, he was ambulating with an assistive device. He was mostly independent for basic/advanced ADLs, can assist as needed. Current driving: he is able to drive, but does most of the driving. Has a supportive , son and daughter, though daughter lives out of state. He presented to [facility] on 11/10/24. He presented to the ED due to frequent falls. According to his at bedside, patient fell about 4 times and on the last fall she was able to get him up and he felt very weak and could not get up himself up. He has been having generalized weakness for a long time, with difficulty caring for himself at home since his recent hospital admissions. also reports he was confused and delirious after his fall at home. Patient had recent hospitalization for UTI and sepsis. He was discharged on 11/06/2024. He was found to have ESBL E. coli urinary tract infection and was discharged on Invanz. Admission EKG showed atrial fibrillation with slow ventricular response. Troponin 0.051, 0.041 CT head and cervical spine showed no acute bleed or mass effect. Moderate senescent changes. Complete a vessel casing of the left maxillary sinus. CT cervical spine showed no acute trauma. Central canal stenosis. Chest x-ray showed no acute cardiopulmonary process involving both lung diffusely findings likely indicate CHF with interstitial and scattered pulmonary edema. Pneumonia not excluded. PM&R consulted for rehab recommendations. Therapy evaluations reviewed; patient needing Himanshu sit to stand, modA bathing, totalA LB dress, totalA toileting, Himanshu 60 feet rolling walker. 11/12: Patient seen and examined resting in bed. Denies CP and abdominal pain. Denies complaints with bowels and urination. On 2L NC, does not wear o2 at home. States he does feel occasional SOB. States he is really needing to go somewhere for therapy, feels very weak and unable to care for himself at home. Is very interested in the IPR program at [facility]. Review of Systems As above in subjective. 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 Left kidney transplant 2002, parathyroid surgery, arthroscopy knee surgery, pericardiocentesis, cancer removed from left ear Past Anesthesia/Blood Transfusion Reactions: No Reported Reaction Past Psychological History: Anxiety, Depression Additional Psychological History / Comment(s): Pt resides with spouse. Smoking Status: Unknown if ever smoked Past Alcohol Use History: None Reported Past Drug Use History: None Reported - Past Family History Father Family Medical History: Deep Vein Thrombosis (DVT) Son(s) Family Medical History: Cancer Mother Family Medical History: Cancer Additional Family Medical History / Comment(s): . Medications and Allergies Home Medications Medication Instructions Recorded Confirmed Type Finasteride [Proscar] 5 mg PO DAILY 02/09/17 11/10/24 History Tamsulosin HCl [Flomax] 0.4 mg PO DAILY 02/09/17 11/10/24 History Multivitamins, Thera [Multivitamin 1 tab PO DAILY 12/31/18 11/10/24 History (formulary)] Vit C/E/Zn/Coppr/Lutein/Zeaxan 1 cap PO HS 12/18/19 11/10/24 History [Preservision Areds 2 Softgel] Pantoprazole [Protonix] 40 mg PO DAILY 12/28/19 11/10/24 History Tacrolimus [Prograf] 1 mg PO BID 04/03/20 11/10/24 History DULoxetine HCL [Cymbalta] 120 mg PO DAILY 12/01/20 11/10/24 History Levothyroxine Sodium [Synthroid] 75 mcg PO DAILY 12/01/20 11/10/24 History Aspirin 81 mg PO DAILY 07/12/21 11/10/24 History QUEtiapine [SEROquel] 100 mg PO HS 07/12/21 11/10/24 History Rosuvastatin Calcium [Crestor] 5 mg PO HS 07/12/21 11/10/24 History Sodium Bicarbonate Tab 650 mg PO BID 07/12/21 11/10/24 History rOPINIRole HCL [Requip] 1 mg PO HS 09/02/21 11/10/24 History Eltrombopag Olamine [Promacta] 12.5 mg PO DAILY@0700 05/31/23 11/10/24 History Magnesium Oxide [Mag-Ox] 400 mg PO DAILY tab 06/07/23 11/10/24 Rx Loperamide [Imodium] 2 mg PO QID PRN #24 cap 08/09/23 11/10/24 Rx mycophenolate mofetiL [Cellcept] 250 mg PO BID #0 08/09/23 11/10/24 Rx Ferrous Sulfate [Iron] 325 mg PO DAILY 03/18/24 11/10/24 History Gabapentin [Neurontin] 400 mg PO HS 10/22/24 11/10/24 History Metoprolol Tartrate [Lopressor] 100 mg PO BID 10/22/24 11/10/24 History Vibegron [Gemtesa] 75 mg PO DAILY 10/22/24 11/10/24 History hydrALAZINE HCL [Apresoline] 100 mg PO TID PRN 10/22/24 11/10/24 History predniSONE 5 mg PO DAILY 10/22/24 11/10/24 History Acetaminophen Tab [Tylenol] 650 mg PO Q6HR PRN tab 10/31/24 11/10/24 Rx Insulin Glargine/Lixisenatide 20 units SQ DAILY #0 10/31/24 11/10/24 Rx [Soliqua 100 Unit-33 Mcg/ml Pen] hydrALAZINE HCL [Apresoline] 50 mg PO TID #90 tab 10/31/24 11/10/24 Rx amLODIPine [Norvasc] 5 mg PO BID #60 tab 11/01/24 11/10/24 Rx Insulin Lispro [humaLOG Kwikpen] See Protocol SQ AC-TID 11/04/24 11/10/24 History Mirabegron [Myrbetriq] 50 mg PO DAILY 11/10/24 11/10/24 History Allergies Allergy/AdvReac Type Severity Reaction Status Date / Time morphine Allergy Severe Itching Verified 11/04/24 21:15 Physical Exam Vitals: Vital Signs Temp Pulse Resp BP Pulse Ox 11/12/24 14:00 97.4 F L 66 17 115/54 97 11/12/24 11:10 97.5 F L 57 L 16 121/72 98 11/12/24 07:49 98.1 F 57 L 18 104/61 96 11/12/24 02:00 97.6 F 66 17 136/68 96 11/11/24 22:33 131/78 11/11/24 19:15 97.8 F 71 17 116/61 97 11/11/24 16:20 108/65 Intake and Output 11/11/24 11/12/24 11/12/24 22:59 06:59 14:59 Intake Total 658 Balance 658 Intake: Oral 658 Other: Voiding Method Urinal Urinal Diaper Diaper # Voids 3 1 # Bowel Movements 1 General: WDWN, male, NAD, appears fatigued Head: Normocephalic, atraumatic. Eyes: Symmetric, glasses on Ears: Symmetric. Hearing within normal limits. Mouth: Clear. Cardiac: no acute distress. Calves supple, non tender, trace BL LE edema Lungs: Breathing comfortably on 2L NC. Chest symmetric. Abdomen: Soft, nontender. Extremities: Arthritic changes consistent with age. Neurological: Alert and oriented x 4. Speech is clear and fluent without paraphasic errors Cranial nerves: CN II-XII: grossly intact. Sensation: Intact and symmetrical limbs to light touch of bilateral UE and LE, except decreased in stocking distribution. Musculoskeletal: ROM WFL EXCEPT: generalized weakness MMT UE Sh Abd EE EF FABD WE HG Right 5- 5 5 5 5 5 Left 5- 5 5 5 5 5 MMT LE HF KE DF EHL Right 4- 5 5 5 Left 4- 5 5 5 Skin: Skin intact where visible to head, neck, and bilateral upper and lower extremities EXCEPT: multiple areas of ecchymosis and abrasions on b/l UE, bilateral arm skins tears with kerlix dressing, RPIV Psych: Calm, cooperative Results CBC & Chem 7: 11/11/24 04:17 11/11/24 04:17 Labs: Abnormal Lab Results - Last 24 Hours (Table) 11/11/24 11/11/24 11/12/24 Range/Units 17:13 19:16 06:15 POC Glucose (mg/dL) 247 H 296 H 231 H (70-110) mg/dL 11/12/24 Range/Units 12:26 POC Glucose (mg/dL) 228 H (70-110) mg/dL Assessment and Plan Assessment: # Impaired gait and ADLs 2' AMS 2' acute metabolic encephalopathy, multifactorial -comprehensive therapies #Multiple recurrent falls #Generalized weakness #Abnormal troponins -lexiscan stress test with reversible ischemia involving lateral wall -cardiology following #Bradycardia -cardiology following #CKD S/P donor renal transplant in 2002 -nephro folllowing #Hx Idiopathic thrombocytopenia purpura -follows with Dr. Winn #Hx of recent UTI and bacteremi due to ESBL E.coli S/P antibiotics #Hx persistent atrial fibrillation -per records, Cardiology recommending maximizing medical therapy and to hold off of anticoagulation at this time secondary to recurrent falls; to be further evaluated outpatient in clinic with cardiology regarding anticoagulation or referral for a Watchman device. #Hx chronic diastolic CHF with moderate aortic stenosis #Chronic back pain # Bowel/ Bladder: Nursing to monitor and report concerns if any. # Diet- heart healthy per EMR # Skin/wound: Skin/Wound care to follow as needed # Pain Management -gabapentin, tylenol prn and cymbalta per SEP # DVT Prophylaxis: Defer to Ortho/IM management. # Comorbidities: coronary artery disease status post CABG, atrial fibrillation not on anticoagulation due to ITP, history of renal transplant on immunosuppressive therapy, CKD stage III yea, hypertension, hyperlipidemia, diabetes type 2 insulin-dependent, hypothyroidism, osteoarthritis, anxiety/depression and other multiple medical problems including chronic back pain and melanoma surgery # Your medical dx and mgt Goals: Modified Independent mobility and ADLS both basic and advanced; increased functional mobility/strength; increased balance, safety, endurance. Improvement in medical issues through your care. Barriers: endurance, weakness, fall risk, oxygen therapy Discharge recommendation: Patient is noted to be significantly below baseline function, would benefit from a structured inpatient rehab stay with 3 hours of therapy a day, 6-7 days per week with physical therapy, occupational therapy, and speech therapy. Patient has medical complexity requiring nursing services, close physician medical management, and interdisciplinary team approach for rehab. Patient is motivated and has good social support. Patient will need insurance authorization. Patient seen and examined in collaboration with Dr. Sandoval Thank you for consulting our services.
[2024-11-12] MEDS: hydrALAZINE HCL 25 MG TAB PO SCH (16:49)
[2024-11-12 17:19] LABS: Glucose,Whole Blood 359 mg/dL (70-110)
--- NOTE | 2024-11-12 19:44 | P.CONS ---
History of Present Illness - Reason for Consult Consult date: 11/12/24 Hx ITP, AC recs Requesting physician: Marline Douglas - Chief Complaint fall - History of Present Illness Mr Lobo is a very pleasant 84-year-old male patient who a history of ITP who was first seen in the hospital by Dr. Winn on 10/15/19. 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 Dasilva, janette harley. Patient came to [facility] 10/14/19. He was in [place] previously, he developed an upper respiratory infection that persisted for about 3 weeks. Was placed on antibiotic without much improvement. While he was on his way home from [place] he noticed easy bruising, petechiae on the lower extremities, nose bleed and hemoptysis. 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 He was told to go to the ER. On admit he had a normal white blood cell, platelets 2000, hemoglobin 10.9, BUN 28, creatinine 1.37. Iron studies were within normal limits. Paraproteinemia workup was negative. Patient was placed on steroids. He was placed on steroids. His blood sugars finesse into the 300s. 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 Xarelto was held, along with his CellCept and sirolimus anti-rejection meds. The patient did not have much of a response to prednisone and was therefore started on Rituxan. He had weekly treatments x 4, completing those on 12/09/19. Platelets remain between 10-20,000. He was then started on promacta and showed a better response and has since continued on the same, currently on 12.5 mg daily. Most recently plt counts have been stable in the 80-90 range. Patient presented to the emergency room for generalized weakness and experiencing multiple falls. Consult was placed for anticoagulation recommendations due to his atrial fibrillation. As noted above patient was previously on Xarelto but due to his ITP he was taken off. Patient's platelets have been stable on Promacta in the 80s to 120s. Patient currently is on 81 mg aspirin daily. Labs reviewed, hemoglobin is 11.9, platelets today 67,000, yesterday at 87,000. Coags WNL. Patient does have extensive bruising to bilateral upper extremities but denies any episodes of acute bleeding. Review of Systems 10 point ROS is negative except as stated in the HPI Past Medical History Past Medical History: Atrial Fibrillation, Blood Disorder, Coronary Artery Disease (CAD), Cancer, Diabetes Mellitus, Hearing Disorder / Deafness, Hyperlipidemia, Hypertension, Osteoarthritis (OA), Pneumonia, Prostate Disorder, Renal Disease, Thyroid Disorder Additional Past Medical History / Comment(s): polio at 6, back pain, melanoma taken off of left ear & left shoulder, "slow growing cancer of prostate, being watched by Dr Dasilva." Hard of hearing, LOW PLATELETS, Jul 2023 UTI & pneumonia hospitalized at [facility] and went to [facility] for rehab; "old blood clot in right leg", orthostatic hypotension, frequent falls, uses walker History of Any Multi-Drug Resistant Organisms: ESBL Year Discovered:: 10/09/24 MDRO Source:: urine Past Surgical History: Back Surgery, Coronary Bypass/CABG, Ear Surgery, Orthopedic Surgery Additional Past Surgical History / Comment(s): KYPHOPLASTY AND BX (NEG) 2021. Left kidney transplant 2002, parathyroid surgery, arthroscopy knee surgery, pericardiocentesis, cancer removed from left ear Past Anesthesia/Blood Transfusion Reactions: No Reported Reaction Past Psychological History: Anxiety, Depression Additional Psychological History / Comment(s): Pt resides with spouse. Smoking Status: Unknown if ever smoked Past Alcohol Use History: None Reported Past Drug Use History: None Reported - Past Family History Father Family Medical History: Deep Vein Thrombosis (DVT) Son(s) Family Medical History: Cancer Mother Family Medical History: Cancer Additional Family Medical History / Comment(s): . Medications and Allergies Home Medications Medication Instructions Recorded Confirmed Type Finasteride [Proscar] 5 mg PO DAILY 02/09/17 11/10/24 History Tamsulosin HCl [Flomax] 0.4 mg PO DAILY 02/09/17 11/10/24 History Multivitamins, Thera [Multivitamin 1 tab PO DAILY 12/31/18 11/10/24 History (formulary)] Vit C/E/Zn/Coppr/Lutein/Zeaxan 1 cap PO HS 12/18/19 11/10/24 History [Preservision Areds 2 Softgel] Pantoprazole [Protonix] 40 mg PO DAILY 12/28/19 11/10/24 History Tacrolimus [Prograf] 1 mg PO BID 04/03/20 11/10/24 History DULoxetine HCL [Cymbalta] 120 mg PO DAILY 12/01/20 11/10/24 History Levothyroxine Sodium [Synthroid] 75 mcg PO DAILY 12/01/20 11/10/24 History Aspirin 81 mg PO DAILY 07/12/21 11/10/24 History QUEtiapine [SEROquel] 100 mg PO HS 07/12/21 11/10/24 History Rosuvastatin Calcium [Crestor] 5 mg PO HS 07/12/21 11/10/24 History Sodium Bicarbonate Tab 650 mg PO BID 07/12/21 11/10/24 History rOPINIRole HCL [Requip] 1 mg PO HS 09/02/21 11/10/24 History Eltrombopag Olamine [Promacta] 12.5 mg PO DAILY@0700 05/31/23 11/10/24 History Magnesium Oxide [Mag-Ox] 400 mg PO DAILY tab 06/07/23 11/10/24 Rx Loperamide [Imodium] 2 mg PO QID PRN #24 cap 08/09/23 11/10/24 Rx mycophenolate mofetiL [Cellcept] 250 mg PO BID #0 08/09/23 11/10/24 Rx Ferrous Sulfate [Iron] 325 mg PO DAILY 03/18/24 11/10/24 History Gabapentin [Neurontin] 400 mg PO HS 10/22/24 11/10/24 History Metoprolol Tartrate [Lopressor] 100 mg PO BID 10/22/24 11/10/24 History Vibegron [Gemtesa] 75 mg PO DAILY 10/22/24 11/10/24 History hydrALAZINE HCL [Apresoline] 100 mg PO TID PRN 10/22/24 11/10/24 History predniSONE 5 mg PO DAILY 10/22/24 11/10/24 History Acetaminophen Tab [Tylenol] 650 mg PO Q6HR PRN tab 10/31/24 11/10/24 Rx Insulin Glargine/Lixisenatide 20 units SQ DAILY #0 10/31/24 11/10/24 Rx [Soliqua 100 Unit-33 Mcg/ml Pen] hydrALAZINE HCL [Apresoline] 50 mg PO TID #90 tab 10/31/24 11/10/24 Rx amLODIPine [Norvasc] 5 mg PO BID #60 tab 11/01/24 11/10/24 Rx Insulin Lispro [humaLOG Kwikpen] See Protocol SQ AC-TID 11/04/24 11/10/24 History Mirabegron [Myrbetriq] 50 mg PO DAILY 11/10/24 11/10/24 History Allergies Allergy/AdvReac Type Severity Reaction Status Date / Time morphine Allergy Severe Itching Verified 11/04/24 21:15 Physical Exam Vitals: Vital Signs Temp Pulse Resp BP Pulse Ox 11/12/24 11:10 97.5 F L 57 L 16 121/72 98 11/12/24 07:49 98.1 F 57 L 18 104/61 96 11/12/24 02:00 97.6 F 66 17 136/68 96 11/11/24 22:33 131/78 11/11/24 19:15 97.8 F 71 17 116/61 97 11/11/24 16:20 108/65 11/11/24 14:20 97.5 F L 74 17 94/51 97 Intake and Output 11/11/24 11/12/24 11/12/24 22:59 06:59 14:59 Intake Total 658 Balance 658 Intake: Oral 658 Other: Voiding Method Urinal Urinal Diaper Diaper # Voids 3 1 # Bowel Movements 1 - Constitutional General appearance: average body habitus, no acute distress - EENT Eyes: anicteric sclerae, EOMI ENT: hearing grossly normal - Respiratory breathing is even and unlabored - Cardiovascular skin warm and dry - Gastrointestinal General gastrointestinal: soft, no tenderness - Integumentary bruising to BUE - Musculoskeletal Musculoskeletal: generalized weakness - Psychiatric Psychiatric: A&O x's 3 Results CBC & Chem 7: 11/11/24 04:17 11/11/24 04:17 Labs: Abnormal Lab Results - Last 24 Hours (Table) 11/11/24 11/11/24 11/11/24 Range/Units 12:19 17:13 19:16 POC Glucose (mg/dL) 155 H 247 H 296 H (70-110) mg/dL 11/12/24 Range/Units 06:15 POC Glucose (mg/dL) 231 H (70-110) mg/dL Assessment and Plan (1) A-fib Current Visit: Yes Status: Acute Code(s): I48.91 - UNSPECIFIED ATRIAL FIBRILLATION SNOMED Code(s): 27255789 (2) Elevated troponin Current Visit: Yes Status: Acute Code(s): R79.89 - OTHER SPECIFIED ABNORMAL FINDINGS OF BLOOD CHEMISTRY SNOMED Code(s): 706510292 (3) Multiple falls Current Visit: Yes Status: Acute Code(s): R29.6 - REPEATED FALLS SNOMED Code(s): 723711808 (4) Weakness Current Visit: Yes Status: Acute Code(s): R53.1 - WEAKNESS SNOMED Code(s): 98849524 Plan: ITP: -History as dictated in the HPI -Has been on promacta, with plts stable in the 80-90K range -Continue promacta as prescribed -Clinic f/u upon discharge -Continue to monitor CBC -From an ITP standpoint, pt can be placed on anticoagulation for his cardiology related issues, as long as plts are > 50,000, however pt is a fall risk having multiple falls due to progressing weakness. If pt is felt to be at high risk for stroke can consider prophylactic dosing of eliquis or xarelto, at 2.5 mg or 10 mg respectively. Will defer this decision to cardiology team Recommendations were discussed with cardiology
[2024-11-12 21:09] LABS: Glucose,Whole Blood 288 mg/dL (70-110)
[2024-11-13 06:19] LABS: Glucose,Whole Blood 236 mg/dL (70-110)
[2024-11-13 08:15] LABS: Magnesium 1.9 mg/dL (1.5-2.4)
[2024-11-13 08:38] LABS: BUN/Creat Ratio 22.07 Ratio (12.00-20.00); Blood Urea Nitrogen 33.1 mg/dL (9.0-27.0); Carbon Dioxide 24.5 mmol/L (21.6-31.8); Chloride 106 mmol/L (96-109); Glucose 236 mg/dL (70-110); Sodium 139 mmol/L (135-145)
[2024-11-13 08:39] LABS: Calcium 8.3 mg/dL (8.7-10.3)
--- NOTE | 2024-11-13 10:52 | P.PN ---
Subjective Patient is seen in follow-up for renal transplant management. GFR worse today. Denies chest pain or shortness of breath. No active complaints. H emodynamically stable. Vital signs are stable. General: No acute distress. HEENT: Head exam is unremarkable. LUNGS: No audible rhonchi or wheezes. HEART: Rate and Rhythm are regular. ABDOMEN: Nontender. EXTREMITITES: No edema. Objective - Vital Signs Vital signs: Vital Signs Temp 98.0 F 11/13/24 07:20 Pulse 68 11/13/24 07:20 Resp 18 11/13/24 07:20 BP 132/69 11/13/24 07:20 Pulse Ox 96 11/13/24 10:00 FiO2 Intake & Output 11/12/24 11/13/24 11/13/24 18:59 06:59 18:59 Intake Total 118 180 Output Total 625 Balance 118 -625 180 Intake: Oral 118 180 Output: Urine 625 Other: Voiding Method Urinal Urinal Diaper Diaper # Voids 3 1 - Labs CBC & Chem 7: 11/11/24 04:17 11/13/24 05:34 Labs: Abnormal Lab Results - Last 24 Hours (Table) 11/12/24 11/12/24 11/12/24 Range/Units 12:26 17:14 21:07 BUN (9.0-27.0) mg/dL Est GFR (CKD-EPI) (>=60) BUN/Creatinine Ratio (12.00-20.00) Ratio Glucose (70-110) mg/dL POC Glucose (mg/dL) 228 H 359 H 288 H (70-110) mg/dL Calcium (8.7-10.3) mg/dL 11/13/24 11/13/24 Range/Units 05:34 06:18 BUN 33.1 H (9.0-27.0) mg/dL Est GFR (CKD-EPI) 46 L (>=60) BUN/Creatinine Ratio 22.07 H (12.00-20.00) Ratio Glucose 236 H (70-110) mg/dL POC Glucose (mg/dL) 236 H (70-110) mg/dL Calcium 8.3 L (8.7-10.3) mg/dL Assessment and Plan Plan: Assessment: 1. Status post donor renal transplant in 2002. 2. 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 3. Generalized weakness and falls. 4. Recent E. coli bacteremia and UTI status post antibiotics. 5. Hypertension with chronic kidney disease. Stable. 6. Chronic diastolic CHF with moderate aortic stenosis. Plan: Encouraged oral intake. Add gentle IV hydration. Check bladder scan to rule out urinary retention. Maintain antirejection meds. Follow-up a.m. Prograf level. Avoid nephrotoxins. Continue to monitor renal function and urine output. Reversible ischemia noted on stress test. Cardiology following. Inpatient rehab being considered.
[2024-11-13] MEDS: SODIUM CHLORIDE 0.9% 1,000 ML IV SCH (11:48)
--- NOTE | 2024-11-13 11:48 | P.PN ---
Subjective HISTORY OF PRESENT ILLNESS: This is a 84-year-old male with a past medical history significant for persistent atrial fibrillation, ITP, hypertension, hyperlipidemia, aortic stenosis, chronic kidney disease with previous renal transplant, diabetes, chronic back pain, and chronic DVT. Patient follows in the office with Dr. Crabtree. We have been asked to see the patient in consultation for elevated troponins. Patient examined at the bedside. Patient gives history that he was recently admitted to the hospital secondary to urinary tract infection. Patient presented to the hospital due to a fall. Patient states he has been having frequent falls at home which he states are secondary to weakness. He reports having back pain with ambulation. He denies having any syncopal episodes. He denies any chest pain or pressure. He denies any shortness of breath. He denies any dizziness or lightheadedness. Patient has a known history of atrial fibrillation. He is not anticoagulated on an outpatient basis due to history of ITP. Telemetry reviewed revealing atrial fibrillation with pauses of less than 3 seconds, mostly at night when he is sleeping. DIAGNOSTICS: - EKG reveals atrial fibrillation with slow ventricular rate - Chest xray no acute cardiopulmonary process. - Laboratory data: WBC 7.29. Hemoglobin 11.9. Platelet count 67. Sodium 139. Potassium 3.9. BUN 18.9. Creatinine 1.1. TSH 2.430. Troponin 0.051. 0.041. 0.037. 0.058. - Current home cardiac medications include hydralazine 50 mg 3 times daily, amlodipine 5 mg twice daily, Crestor 5 mg at night, metoprolol tartrate 100 mg twice daily, aspirin 81 mg daily - Most recent echocardiogram obtained in May 2024 revealing normal LV size and systolic function, moderate AI, moderate TR, moderate MR, moderate pulmonary hypertension -Patient underwent stress testing in April 2019 which was negative for ischemia 11/12/2024 Patient examined this morning to bedside. Patient currently denies chest pain or pressure. He denies shortness of breath. He remains in atrial fibrillation with controlled ventricular rate. Echocardiogram completed revealing ejection fraction 55 to 60%, mild to moderate mitral regurgitation, moderate aortic stenosis with peak gradient 34 mmHg and mean gradient 21 mmHg, mild to moderate aortic regurgitation, and mild aortic regurgitation. Lexiscan stress test revealed reversible ischemia involving the lateral wall. 11/13/2024 Patient examined this morning at the bedside. Patient currently denies any chest pain or pressure. He denies shortness of breath. Vital signs are stable. PHYSICAL EXAM: VITAL SIGNS: Reviewed. GENERAL: Well-developed in no acute distress. HEENT: Head is normocephalic. Pupils are equal, round. Sclerae anicteric. Mucous membranes of the mouth are moist. Neck supple. No JVD or thyromegaly LUNGS: Respirations even and unlabored. Lungs essentially clear to auscultation bilaterally. HEART: Irregular rate and rhythm. S1 and S2 heard. 3/6 systolic ejection murmur ABDOMEN: Soft. Nondistended. Nontender. EXTREMITIES: Normal range of motion. No clubbing or cyanosis. Peripheral pulses intact. No lower extremity edema NEUROLOGIC: Awake and alert. Oriented x 3. ASSESSMENT: Recurrent falls Generalized weakness Persistent atrial fibrillation with slow ventricular rate and pauses of less than 3 seconds while sleeping Abnormal troponins, flat, of unclear clinical significance, no evidence of acute coronary syndrome History of ITP, follows with Dr. Winn Hypertension Hyperlipidemia Valvular heart disease including moderate AI, moderate TR, moderate MR Moderate pulmonary hypertension Chronic kidney disease with previous renal transplant Diabetes Chronic back pain History of chronic DVT PLAN: Continue amlodipine, aspirin, Lipitor, hydralazine, metoprolol Patient with episodes of bradycardia and pauses of less than 3 seconds, mainly at night while patient is sleeping. No indication for pacemaker implantation at this time. Unlikely to be the cause of patient's symptoms. Will continue telemetry monitoring Lexiscan stress test revealed reversible ischemia involving lateral wall. Case discussed with patient's primary qm consultant, Dr. Crabtree yesterday. Will continue with medical management at this time with no plans for cardiac catheterization Hematology evaluated patient due to history of ITP. Patient was deemed safe to begin anticoagulation from their standpoint. However patient does present with recurrent falls. We will hold off on initiating anticoagulation at this time. Patient may follow-up in the office with Dr. Crabtree and further evaluation will be required regarding either initiating anticoagulation at that time or referral for Watchman device. Stable for discharge from a cardiac standpoint Further recommendations pending patient course Nurse practitioner note has been reviewed by physician. Signing provider agrees with the documented findings, assessment, and plan of care documented by WATER ANALYST as a scribe. Objective - Vital Signs Vital signs: Vital Signs Temp 98.0 F 11/13/24 07:20 Pulse 68 11/13/24 07:20 Resp 18 11/13/24 07:20 BP 132/69 11/13/24 07:20 Pulse Ox 96 11/13/24 10:00 FiO2 Intake & Output 11/12/24 11/13/24 11/13/24 18:59 06:59 18:59 Intake Total 118 180 Output Total 625 Balance 118 -625 180 Intake: Oral 118 180 Output: Urine 625 Other: Voiding Method Urinal Urinal Diaper Diaper # Voids 3 1 - Labs CBC & Chem 7: 11/11/24 04:17 11/13/24 05:34 Labs: Abnormal Lab Results - Last 24 Hours (Table) 11/12/24 11/12/24 11/12/24 Range/Units 12:26 17:14 21:07 BUN (9.0-27.0) mg/dL Est GFR (CKD-EPI) (>=60) BUN/Creatinine Ratio (12.00-20.00) Ratio Glucose (70-110) mg/dL POC Glucose (mg/dL) 228 H 359 H 288 H (70-110) mg/dL Calcium (8.7-10.3) mg/dL 11/13/24 11/13/24 Range/Units 05:34 06:18 BUN 33.1 H (9.0-27.0) mg/dL Est GFR (CKD-EPI) 46 L (>=60) BUN/Creatinine Ratio 22.07 H (12.00-20.00) Ratio Glucose 236 H (70-110) mg/dL POC Glucose (mg/dL) 236 H (70-110) mg/dL Calcium 8.3 L (8.7-10.3) mg/dL
--- NOTE | 2024-11-13 11:53 | P.PN ---
Subjective Progress Note Date: 11/13/24 Progress Note Date: 11/11/24 Patient is a 84-year-old male with a past medical history of coronary artery disease status post CABG, atrial fibrillation not on anticoagulation due to ITP, history of renal transplant on immunosuppressive therapy, CKD stage III yea, hypertension, hyperlipidemia, diabetes type 2 insulin-dependent, hypothyroidism, osteoarthritis, anxiety/depression.Patient was brought to the hospital due to frequent falls. According to his at bedside patient fell about 4 times and 3 times she was able to get up and he felt very weak and could not get up him self for for the time. He has been having generalized weakness. He was also being confused and delirious could not sleep overnight. Patient had recent hospitalization for UTI and sepsis. He was discharged on 11/06/2024. He was found to have ESBL E. coli urinary tract infection and was discharged after completing Invanz for 10-day course. 11/12/2024 patient continues to display generalized weakness, difficulty with balance-continued to have falls at home.PT evaluation pending. Consult for [facility] inpatient rehab in place. Patient was actually accepted last week at [facility] inpatient rehab but patient's insurance company would not give authorization. Denies chest pain, palpitations or shortness of breath. Echo reported EF of 55 to 60% mild to moderate mitral regurgitation, moderate aortic stenosis, mild to moderate aortic regurgitation and mild tricuspid regur gitation. Lexiscan stress test reported reversible ischemia involving lateral wall. 11/13/2024 evaluated by PT secondary to weakness, multiple falls, recommending inpatient rehab./Subacute rehab. Patient cooperative and eager for inpatient rehab facilitation. Patient is in dire need of inpatient rehabilitation to increase his strength, functional mobility. Denies chest pain, palpitations or shortness of breath. Ambulating to chair with assistance, tolerated exertion well. Denies lightheadedness dizziness or focal deficits. Maintained on rejection medication regimen. GFR worsened, today, 46. Receiving gentle IV fluid hydration. Bladder scan pending. Vital signs stable. Objective - Vital Signs Vital signs: Vital Signs Temp 98.0 F 11/13/24 07:20 Pulse 68 11/13/24 07:20 Resp 18 11/13/24 07:20 BP 132/69 11/13/24 07:20 Pulse Ox 96 11/13/24 10:00 FiO2 Intake & Output 11/12/24 11/13/24 11/13/24 18:59 06:59 18:59 Intake Total 118 180 Output Total 625 Balance 118 -625 180 Intake: Oral 118 180 Output: Urine 625 Other: Voiding Method Urinal Urinal Diaper Diaper # Voids 3 1 - Exam GENERAL: Pleasant 84-year-old gentleman, alert and oriented x 3, sitting up in chair, no acute distress, cooperative. HEENT: Head is atraumatic, normocephalic. Pupils are equal, round, and reactive to light. Sclerae anicteric. Conjunctivae are clear. RESPIRATORY: Unlabored, equal air entry ,clear to auscultation. No use of accessory muscles. CARDIOVASCULAR: Regular rate and rhythm. S1 and S2 noted. Systolic murmur. GASTROINTESTINAL: Soft, nontender, nondistended. Positive bowel sounds. INTEGUMENTARY: Warm and dry no rashes noted. EXTREMITIES: 2+ peripheral pulses. No evidence of peripheral edema. No calf tenderness noted. NEUROLOGIC: Cranial nerves II-XII intact. - Labs CBC & Chem 7: 11/11/24 04:17 11/14/24 04:22 Labs: Abnormal Lab Results - Last 24 Hours (Table) 11/12/24 11/12/24 11/12/24 Range/Units 12:26 17:14 21:07 BUN (9.0-27.0) mg/dL Est GFR (CKD-EPI) (>=60) BUN/Creatinine Ratio (12.00-20.00) Ratio Glucose (70-110) mg/dL POC Glucose (mg/dL) 228 H 359 H 288 H (70-110) mg/dL Calcium (8.7-10.3) mg/dL 11/13/24 11/13/24 Range/Units 05:34 06:18 BUN 33.1 H (9.0-27.0) mg/dL Est GFR (CKD-EPI) 46 L (>=60) BUN/Creatinine Ratio 22.07 H (12.00-20.00) Ratio Glucose 236 H (70-110) mg/dL POC Glucose (mg/dL) 236 H (70-110) mg/dL Calcium 8.3 L (8.7-10.3) mg/dL Assessment and Plan Assessment: (1) Multiple falls, recurrent Current Visit: Yes Status: Acute Code(s): R29.6 - REPEATED FALLS SNOMED Code(s): 338673242 (2) Weakness Current Visit: Yes Status: Acute Code(s): R53.1 - WEAKNESS SNOMED Code(s): 56602770 (3) 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.3 (4) Altered mental status, acute metabolic encephalopathy, multifactorial Current Visit: No Status: Acute Code(s): R41.82 - ALTERED MENTAL STATUS, UNSPECIFIED SNOMED Code(s): 893059355 (5) Hallucinations Current Visit: No Status: Acute Code(s): R44.3 - HALLUCINATIONS, UNSPECIFIED SNOMED Code(s): 6964484 (6) History of anxiety Current Visit: No Status: Acute Code(s): Z86.59 - PERSONAL HISTORY OF OTHER MENTAL AND BEHAVIORAL DISORDERS SNOMED Code(s): 418897628 (7) History of infection due to ESBL Escherichia coli Current Visit: No Status: Acute Code(s): Z86.19 - PERSONAL HISTORY OF OTHER INFECTIOUS AND PARASITIC DISEASES SNOMED Code(s): 923321164 (8) Hyperlipidemia Current Visit: No Status: Acute Code(s): E78.5 - HYPERLIPIDEMIA, UNSPECIFIED SNOMED Code(s): 80647512 (9) Hypertension Current Visit: No Status: Acute Code(s): I10 - ESSENTIAL (PRIMARY) HYPERTENS ION SNOMED Code(s): 03233400 (10) Longstanding persistent atrial fibrillation Current Visit: No Status: Acute Code(s): I48.11 - LONGSTANDING PERSISTENT ATRIAL FIBRILLATION SNOMED Code(s): 942827284 (11) History of renal transplant Current Visit: No Status: Chronic Priority: Medium Code(s): Z94.0 - KIDNEY TRANSPLANT STATUS SNOMED Code(s): 377157893 (12) Idiopathic thrombocytopenia purpura, follows with Dr. Winn Current Visit: No Status: Chronic Priority: High Code(s): D69.3 - IMMUNE THROMBOCYTOPENIC PURPURA SNOMED Code(s): 0436198 (13) abnormal troponins, Lexiscan stress test with reversible ischemia involving lateral wall, maximizing medical therapy as per cardiology. (14) bradycardia, pauses of less than 3 seconds usually while sleeping, no pacemaker implantation recommended at this time as per cardiology. (15) lateral wall reversible ischemia, maximizing medical management, cardiology following. Cardiology recommending holding off of anticoagulation at this time secondary to recurrent falls. To be further evaluated outpatient in clinic with cardiology regarding anticoagulation or referral for a watchman's device. Plan: Continue on current medication regime ,monitoring and symptomatic brandi tment. Evaluated and accepted by [facility] inpatient rehab. Discharge planning in progress pending insurance authorization. The impression and plan of care has been dictated as directed. : I performed a history and examination of this patient, discussed the same with the dictator. I agree with the dictator's note ,documented as a scribe. Any additional findings or plans will be noted.
[2024-11-13 12:18] LABS: Glucose,Whole Blood 299 mg/dL (70-110)
[2024-11-13 17:00] LABS: Glucose,Whole Blood 371 mg/dL (70-110)
[2024-11-13 19:37] LABS: Glucose,Whole Blood 310 mg/dL (70-110)
[2024-11-14 05:48] LABS: Glucose,Whole Blood 183 mg/dL (70-110)
[2024-11-14 09:11] LABS: BUN/Creat Ratio 20.62 Ratio (12.00-20.00); Blood Urea Nitrogen 26.8 mg/dL (9.0-27.0); Calcium 8.2 mg/dL (8.7-10.3); Carbon Dioxide 24.5 mmol/L (21.6-31.8); Chloride 107 mmol/L (96-109); Glucose 190 mg/dL (70-110); Magnesium 1.6 mg/dL (1.5-2.4); Potassium 4.2 mmol/L (3.5-5.5); Sodium 141 mmol/L (135-145)
--- NOTE | 2024-11-14 11:11 | P.PN ---
Subjective HISTORY OF PRESENT ILLNESS: This is a 84-year-old male with a past medical history significant for persistent atrial fibrillation, ITP, hypertension, hyperlipidemia, aortic stenosis, chronic kidney disease with previous renal transplant, diabetes, chronic back pain, and chronic DVT. Patient follows in the office with Dr. Crabtree. We have been asked to see the patient in consultation for elevated troponins. Patient examined at the bedside. Patient gives history that he was recently admitted to the hospital secondary to urinary tract infection. Patient presented to the hospital due to a fall. Patient states he has been having frequent falls at home which he states are secondary to weakness. He reports having back pain with ambulation. He denies having any syncopal episodes. He denies any chest pain or pressure. He denies any shortness of breath. He denies any dizziness or lightheadedness. Patient has a known history of atrial fibrillation. He is not anticoagulated on an outpatient basis due to history of ITP. Telemetry reviewed revealing atrial fibrillation with pauses of less than 3 seconds, mostly at night when he is sleeping. DIAGNOSTICS: - EKG reveals atrial fibrillation with slow ventricular rate - Chest xray no acute cardiopulmonary process. - Laboratory data: WBC 7.29. Hemoglobin 11.9. Platelet count 67. Sodium 139. Potassium 3.9. BUN 18.9. Creatinine 1.1. TSH 2.430. Troponin 0.051. 0.041. 0.037. 0.058. - Current home cardiac medications include hydralazine 50 mg 3 times daily, amlodipine 5 mg twice daily, Crestor 5 mg at night, metoprolol tartrate 100 mg twice daily, aspirin 81 mg daily - Most recent echocardiogram obtained in May 2024 revealing normal LV size and systolic function, moderate AI, moderate TR, moderate MR, moderate pulmonary hypertension -Patient underwent stress testing in April 2019 which was negative for ischemia 11/12/2024 Patient examined this morning to bedside. Patient currently denies chest pain or pressure. He denies shortness of breath. He remains in atrial fibrillation with controlled ventricular rate. Echocardiogram completed revealing ejection fraction 55 to 60%, mild to moderate mitral regurgitation, moderate aortic stenosis with peak gradient 34 mmHg and mean gradient 21 mmHg, mild to moderate aortic regurgitation, and mild aortic regurgitation. Lexiscan stress test revealed reversible ischemia involving the lateral wall. 11/13/2024 Patient examined this morning at the bedside. Patient currently denies any chest pain or pressure. He denies shortness of breath. Vital signs are stable. 11/14/2024 Patient examined this morning at the bedside. Patient currently denies any chest pain or pressure. He denies shortness of breath. Vital signs are stable. PHYSICAL EXAM: VITAL SIGNS: Reviewed. GENERAL: Well-developed in no acute distress. HEENT: Head is normocephalic. Pupils are equal, round. Sclerae anicteric. Mucous membranes of the mouth are moist. Neck supple. No JVD or thyromegaly LUNGS: Respirations even and unlabored. Lungs essentially clear to auscultation bilaterally. HEART: Irregular rate and rhythm. S1 and S2 heard. 3/6 systolic ejection murmur ABDOMEN: Soft. Nondistended. Nontender. EXTREMITIES: Normal range of motion. No clubbing or cyanosis. Peripheral pulses intact. No lower extremity edema NEUROLOGIC: Awake and alert. Oriented x 3. ASSESSMENT: Recurrent falls Generalized weakness Persistent atrial fibrillation with slow ventricular rate and pauses of less than 3 seconds while sleeping Abnormal troponins, flat, of unclear clinical significance, no evidence of acute coronary syndrome History of ITP, follows with Dr. Winn Hypertension Hyperlipidemia Valvular heart disease including moderate AI, moderate TR, moderate MR Moderate pulmonary hypertension Chronic kidney disease with previous renal transplant Diabetes Chronic back pain History of chronic DVT PLAN: Continue amlodipine, aspirin, Lipitor, hydralazine, metoprolol Patient with episodes of bradycardia and pauses of less than 3 seconds, mainly at night while patient is sleeping. No indication for pacemaker implantation at this time. Unlikely to be the cause of patient's symptoms. Will continue telemetry monitoring Lexiscan stress test revealed reversible ischemia involving lateral wall. Case discussed with patient's primary electrical experimental mechanic, Dr. Crabtree 11/12/2024. Will continue with medical management at this time with no plans for cardiac catheterization Hematology evaluated patient due to history of ITP. Patient was deemed safe to begin anticoagulation from their standpoint. However patient does present with recurrent falls. We will hold off on initiating anticoagulation at this time. Patient may follow-up in the office with Dr. Crabtree and further evaluation will be required regarding either initiating anticoagulation at that time or referral for Watchman device. Stable for discharge from a cardiac standpoint We will sign off. Please reconsult if needed. Nurse practitioner note has been reviewed by physician. Signing provider agrees with the documented findings, assessment, and plan of care documented by INSURANCE SALES AGENT as a scribe. Objective - Vital Signs Vital signs: Vital Signs Temp 97.9 F 11/14/24 07:50 Pulse 65 11/14/24 07:50 Resp 16 11/14/24 07:50 BP 148/66 11/14/24 07:50 Pulse Ox 95 11/14/24 10:00 FiO2 Intake & Output 11/13/24 11/14/24 11/14/24 18:59 06:59 18:59 Intake Total 180 118 Output Total 600 Balance 180 -600 118 Intake: Oral 180 118 Output: Urine 600 Other: Voiding Method Urinal Urinal Diaper Diaper # Voids 0 # Bowel Movements 0 - Labs CBC & Chem 7: 11/11/24 04:17 11/14/24 04:22 Labs: Abnormal Lab Results - Last 24 Hours (Table) 11/13/24 11/13/24 11/13/24 Range/Units 12:16 16:58 19:36 Est GFR (CKD-EPI) (>=60) BUN/Creatinine Ratio (12.00-20.00) Ratio Glucose (70-110) mg/dL POC Glucose (mg/dL) 299 H 371 H 310 H (70-110) mg/dL Calcium (8.7-10.3) mg/dL 11/14/24 11/14/24 Range/Units 04:22 05:47 Est GFR (CKD-EPI) 55 L (>=60) BUN/Creatinine Ratio 20.62 H (12.00-20.00) Ratio Glucose 190 H (70-110) mg/dL POC Glucose (mg/dL) 183 H (70-110) mg/dL Calcium 8.2 L (8.7-10.3) mg/dL
[2024-11-14] MEDS: MAGNESIUM SULFATE-D5W PMX 1 GM in DEXTROSE/WATER 1 100ML.BAG IVPB ONE (11:54)
--- NOTE | 2024-11-14 11:57 | P.PN ---
Subjective Progress Note Date: 11/14/24 Progress Note Date: 11/11/24 Patient is a 84-year-old male with a past medical history of coronary artery disease status post CABG, atrial fibrillation not on anticoagulation due to ITP, history of renal transplant on immunosuppressive therapy, CKD stage III yea, hypertension, hyperlipidemia, diabetes type 2 insulin-dependent, hypothyroidism, osteoarthritis, anxiety/depression.Patient was brought to the hospital due to frequent falls. According to his at bedside patient fell about 4 times and 3 times she was able to get up and he felt very weak and could not get up him self for for the time. He has been having generalized weakness. He was also being confused and delirious could not sleep overnight. Patient had recent hospitalization for UTI and sepsis. He was discharged on 11/06/2024. He was found to have ESBL E. coli urinary tract infection and was discharged after completing Invanz for 10-day course. 11/12/2024 patient continues to display generalized weakness, difficulty with balance-continued to have falls at home.PT evaluation pending. Consult for [facility] inpatient rehab in place. Patient was actually accepted last week at [facility] inpatient rehab but patient's insurance company would not give authorization. Denies chest pain, palpitations or shortness of breath. Echo reported EF of 55 to 60% mild to moderate mitral regurgitation, moderate aortic stenosis, mild to moderate aortic regurgitation and mild tricuspid regur gitation. Lexiscan stress test reported reversible ischemia involving lateral wall. 11/13/2024 evaluated by PT secondary to weakness, multiple falls, recommending inpatient rehab./Subacute rehab. Patient cooperative and eager for inpatient rehab facilitation. Patient is in dire need of inpatient rehabilitation to increase his strength, functional mobility. Denies chest pain, palpitations or shortness of breath. Ambulating to chair with assistance, tolerated exertion well. Denies lightheadedness dizziness or focal deficits. Maintained on rejection medication regimen. GFR worsened, today, 46. Receiving gentle IV fluid hydration. Bladder scan pending. Vital signs stable. 11/14/2024 no overnight events. Denies chest pain, palpitations or shortness of breath. Maintaining O2 sats in the mid 90s on 2 L nasal cannula O2. Afebrile, hemodynamically stable. Magnesium 1.6. GFR increased to 55 today. Blood sugars better controlled today. Weakness has progressed with recent multiple hospitallizations. Motivated and cooperative with daily PT. [facility]. evaluated and accepted patient. Insurance authorization pending. Objective - Vital Signs Vital signs: Vital Signs Temp 97.9 F 11/14/24 07:50 Pulse 65 11/14/24 07:50 Resp 16 11/14/24 07:50 BP 148/66 11/14/24 07:50 Pulse Ox 95 11/14/24 10:00 FiO2 Intake & Output 11/13/24 11/14/24 11/14/24 18:59 06:59 18:59 Intake Total 180 118 Output Total 600 Balance 180 -600 118 Intake: Oral 180 118 Output: Urine 600 Other: Voiding Method Urinal Urinal Diaper Diaper # Voids 0 # Bowel Movements 0 - Exam GENERAL: Pleasant,alert and oriented x 3, sitting up in bed, no acute distress. HEENT: Head is atraumatic, normocephalic. Pupils are equal, round, Sclerae anicteric. Conjunctivae are clear. RESPIRATORY: Unlabored, equal air entry ,clear to auscultation. No use of accessory muscles. CARDIOVASCULAR: Regular rate and rhythm. S1 and S2 noted. Systolic murmur. GASTROINTESTINAL: Soft, nontender, nondistended. Positive bowel sounds. INTEGUMENTARY: Warm and dry, no rashes noted. EXTREMITIES: 2+ peripheral pulses. No evidence of peripheral edema. No calf tenderness noted. NEUROLOGIC: Cranial nerves II-XII intact. - Labs CBC & Chem 7: 11/11/24 04:17 11/14/24 04:22 Labs: Abnormal Lab Results - Last 24 Hours (Table) 11/13/24 11/13/24 11/13/24 Range/Units 12:16 16:58 19:36 Est GFR (CKD-EPI) (>=60) BUN/Creatinine Ratio (12.00-20.00) Ratio Glucose (70-110) mg/dL POC Glucose (mg/dL) 299 H 371 H 310 H (70-110) mg/dL Calcium (8.7-10.3) mg/dL 11/14/24 11/14/24 Range/Units 04:22 05:47 Est GFR (CKD-EPI) 55 L (>=60) BUN/Creatinine Ratio 20.62 H (12.00-20.00) Ratio Glucose 190 H (70-110) mg/dL POC Glucose (mg/dL) 183 H (70-110) mg/dL Calcium 8.2 L (8.7-10.3) mg/dL Assessment and Plan Assessment: (1) Multiple falls, recurrent Current Visit: Yes Status: Acute Code(s): R29.6 - REPEATED FALLS SNOMED Code(s): 078741469 (2) Weakness progressive, secondary to repeated inpatient hospitalizations Current Visit: Yes Status: Acute Code(s): R53.1 - WEAKNESS SNOMED Code(s): 08131091 (3) 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.3 (4) Altered mental status, acute metabolic encephalopathy, multifactorial Current Visit: No Status: Acute Code(s): R41.82 - ALTERED MENTAL STATUS, UNSPECIFIED SNOMED Code(s): 646389804 (5) Hallucinations Current Visit: No Status: Acute Code(s): R44.3 - HALLUCINATIONS, UNSPECIFIED SNOMED Code(s): 2117205 (6) History of anxiety Current Visit: No Status: Acute Code(s): Z86.59 - PERSONAL HISTORY OF OTHER MENTAL AND BEHAVIORAL DISORDERS SNOMED Code(s): 947260053 (7) History of infection due to ESBL Escherichia coli Current Visit: No Status: Acute Code(s): Z86.19 - PERSONAL HISTORY OF OTHER INFECTIOUS AND PARASITIC DISEASES SNOMED Code(s): 966267257 (8) Hyperlipidemia Current Visit: No Status: Acute Code(s): E78.5 - HYPERLIPIDEMIA, UNSPECIFIED SNOMED Code(s): 97996322 (9) Hypertension Current Visit: No Status: Acute Code(s): I10 - ESSENTIAL (PRIMARY) HYPERTENSION SNOMED Code(s): 93709390 (10) Longstanding persistent atrial fibrillation Current Visit: No Status: Acute Code(s): I48.11 - LONGSTANDING PERSISTENT ATRIAL FIBRILLATION SNOMED Code(s): 104897082 (11) History of renal transplant Current Visit: No Status: Chronic Priority: Medium Code(s): Z94.0 - KIDNEY TRANSPLANT STATUS SNOMED Code(s): 434237236 (12) Idiopathic thrombocytopenia purpura, follows with Dr. Winn Current Visit: No Status: Chronic Priority: High Code(s): D69.3 - IMMUNE THROMBOCYTOPENIC PURPURA SNOMED Code(s): 0734899 (13) abnormal troponins, Lexiscan stress test with reversible ischemia involving lateral wall, maximizing medical therapy as per cardiology. Cardiology recommending holding off of anticoagulation at this time secondary to recurrent falls. To be further evaluated outpatient in clinic with cardiology regarding anticoagulation or referral for a watchman's device. (14) bradycardia, pauses of less than 3 seconds usually while sleeping, no pacemaker implantation recommended at this time as per cardiology. (15) Diabetes mellitus (16)Hypomagnesemia Plan: Continue on current medication regime ,monitoring and symptomatic brandi tment. Weakness has progressed with recent multiple hospitallizations. Daily physical therapy. magnesium supplementation ordered. Ongoing monitoring of renal function. evaluated and accepted by [facility] inpatient rehab. Discharge planning in progress pending insurance authorization. The impression and plan of care has been dictated as directed. : I performed a history and examination of this patient, discussed the same with the dictator. I agree with the dictator's note ,documented as a scribe. Any additional findings or plans will be noted.
[2024-11-14 12:00] LABS: Glucose,Whole Blood 323 mg/dL (70-110)
--- NOTE | 2024-11-14 12:01 | P.PN ---
Subjective Patient is seen in follow-up for renal transplant management. Renal function better. Receiving IV fluids. Denies chest pain or shortness of breath. No active complaints. Hemodynamically stable. Vital signs are stable. General: No acute distress. HEENT: Head exam is unremarkable. LUNGS: No audible rhonchi or wheezes. HEART: Rate and Rhythm are regular. ABDOMEN: Nontender. EXTREMITITES: No edema. Objective - Vital Signs Vital signs: Vital Signs Temp 97.9 F 11/14/24 07:50 Pulse 65 11/14/24 07:50 Resp 16 11/14/24 07:50 BP 148/66 11/14/24 07:50 Pulse Ox 95 11/14/24 10:00 FiO2 Intake & Output 11/13/24 11/14/24 11/14/24 18:59 06:59 18:59 Intake Total 180 118 Output Total 600 Balance 180 -600 118 Intake: Oral 180 118 Output: Urine 600 Other: Voiding Method Urinal Urinal Diaper Diaper # Voids 0 1 # Bowel Movements 0 - Labs CBC & Chem 7: 11/11/24 04:17 11/14/24 04:22 Labs: Abnormal Lab Results - Last 24 Hours (Table) 11/13/24 11/13/24 11/13/24 Range/Units 12:16 16:58 19:36 Est GFR (CKD-EPI) (>=60) BUN/Creatinine Ratio (12.00-20.00) Ratio Glucose (70-110) mg/dL POC Glucose (mg/dL) 299 H 371 H 310 H (70-110) mg/dL Calcium (8.7-10.3) mg/dL 11/14/24 11/14/24 Range/Units 04:22 05:47 Est GFR (CKD-EPI) 55 L (>=60) BUN/Creatinine Ratio 20.62 H (12.00-20.00) Ratio Glucose 190 H (70-110) mg/dL POC Glucose (mg/dL) 183 H (70-110) mg/dL Calcium 8.2 L (8.7-10.3) mg/dL Assessment and Plan Plan: Assessment: 1. Status post donor renal transplant in 2002. 2. 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 3. Generalized weakness and falls. 4. Recent E. coli bacteremia and UTI status post antibiotics. 5. Hypertension with chronic kidney disease. Stable. 6. Chronic diastolic CHF with moderate aortic stenosis. Plan: Encouraged oral intake. Maintain gentle IV hydration. Maintain antirejection meds. Prograf level 7.7 dated November 13, 2024. Avoid nephrotoxins. Continue to monitor renal function and urine output. Reversible ischemia noted on stress test. Cardiology following. Inpatient rehab being considered.
[2024-11-14 17:21] LABS: Glucose,Whole Blood 317 mg/dL (70-110)
[2024-11-14 20:00] LABS: Glucose,Whole Blood 243 mg/dL (70-110)
[2024-11-15 05:20] LABS: Glucose,Whole Blood 203 mg/dL (70-110)
[2024-11-15 09:14] VITALS: BMI 30.4
--- NOTE | 2024-11-15 10:59 | P.PN ---
Subjective Progress Note Date: 11/15/24 Progress Note Date: 11/11/24 Patient is a 84-year-old male with a past medical history of coronary artery disease status post CABG, atrial fibrillation not on anticoagulation due to ITP, history of renal transplant on immunosuppressive therapy, CKD stage III yea, hypertension, hyperlipidemia, diabetes type 2 insulin-dependent, hypothyroidism, osteoarthritis, anxiety/depression.Patient was brought to the hospital due to frequent falls. According to his at bedside patient fell about 4 times and 3 times she was able to get up and he felt very weak and could not get up him self for for the time. He has been having generalized weakness. He was also being confused and delirious could not sleep overnight. Patient had recent hospitalization for UTI and sepsis. He was discharged on 11/06/2024. He was found to have ESBL E. coli urinary tract infection and was discharged after completing Invanz for 10-day course. 11/12/2024 patient continues to display generalized weakness, difficulty with balance-continued to have falls at home.PT evaluation pending. Consult for [facility] inpatient rehab in place. Patient was actually accepted last week at [facility] inpatient rehab but patient's insurance company would not give authorization. Denies chest pain, palpitations or shortness of breath. Echo reported EF of 55 to 60% mild to moderate mitral regurgitation, moderate aortic stenosis, mild to moderate aortic regurgitation and mild tricuspid regur gitation. Lexiscan stress test reported reversible ischemia involving lateral wall. 11/13/2024 evaluated by PT secondary to weakness, multiple falls, recommending inpatient rehab./Subacute rehab. Patient cooperative and eager for inpatient rehab facilitation. Patient is in dire need of inpatient rehabilitation to increase his strength, functional mobility. Denies chest pain, palpitations or shortness of breath. Ambulating to chair with assistance, tolerated exertion well. Denies lightheadedness dizziness or focal deficits. Maintained on rejection medication regimen. GFR worsened, today, 46. Receiving gentle IV fluid hydration. Bladder scan pending. Vital signs stable. 11/14/2024 no overnight events. Denies chest pain, palpitations or shortness of breath. Maintaining O2 sats in the mid 90s on 2 L nasal cannula O2. Afebrile, hemodynamically stable. Magnesium 1.6. GFR increased to 55 today. Blood sugars better controlled today. Weakness has progressed with recent multiple hospitallizations. Motivated and cooperative with daily PT. [facility]. evaluated and accepted patient. Insurance authorization pending. 11/15/24 Complains of increased back pain that he relates to hospital bed, did not sleep well last night,accompanied by mild delirium, which has subsided this morning. Afebrile. Denies chest pain, palpitations or increased shortness of breath. Maintaining O2 sats in the mid to high 90s on 2 L nasal cannula. BMP pending. Patient expresses eagerness to regain his strength, balance ,endurance. Good diet intake. Denies nausea, vomiting or diarrhea. Denies abdominal pain. Bowel movement yesterday afternoon. Objective - Vital Signs Vital signs: Vital Signs Temp 97.5 F L 11/15/24 07:40 Pulse 62 11/15/24 07:40 Resp 16 11/15/24 07:40 BP 161/75 11/15/24 07:40 Pulse Ox 97 11/15/24 07:40 FiO2 Intake & Output 11/14/24 11/15/24 11/15/24 18:59 06:59 18:59 Intake Total 118 118 Output Total 400 500 Balance -282 -382 Intake: Oral 118 118 Output: Urine 400 500 Other: Voiding Method Urinal Urinal Diaper Diaper # Voids 1 # Bowel Movements 1 - Exam GENERAL: Alert and oriented x 3, sitting up in bed, no acute distress. HEENT: Atraumatic, normocephalic. Pupils are equal, round, Conjunctivae are clear. MMM. RESPIRATORY: Unlabored, equal air entry ,clear to auscultation. CARDIOVASCULAR: Irregular rate and rhythm. S1 and S2 noted. Systolic murmur. GASTROINTESTINAL: Soft, nontender, nondistended. Positive bowel sounds. INTEGUMENTARY: Warm and dry, no rashes noted. EXTREMITIES: 2+ peripheral pulses. No evidence of peripheral edema. No calf tenderness noted. Positive DP pulses NEUROLOGIC: Cranial nerves II-XII intact. - Labs CBC & Chem 7: 11/11/24 04:17 11/14/24 04:22 Labs: Abnormal Lab Results - Last 24 Hours (Table) 11/14/24 11/14/24 11/14/24 Range/Units 04:22 11:59 17:20 Est GFR (CKD-EPI) 55 L (>=60) BUN/Creatinine Ratio 20.62 H (12.00-20.00) Ratio Glucose 190 H (70-110) mg/dL POC Glucose (mg/dL) 323 H 317 H (70-110) mg/dL Calcium 8.2 L (8.7-10.3) mg/dL 11/14/24 11/15/24 Range/Units 19:59 05:18 Est GFR (CKD-EPI) (>=60) BUN/Creatinine Ratio (12.00-20.00) Ratio Glucose (70-110) mg/dL POC Glucose (mg/dL) 243 H 203 H (70-110) mg/dL Calcium (8.7-10.3) mg/dL Assessment and Plan Assessment: (1)Sarcopenia r/t Multiple falls, recurrent, secondary to medical debility s/p recent sepsis initially discharged on 11/01/24 secondary to acute bacteremia molecular ID, E Coli ESBL R/T Acute UTI with ESBL-completed treatment of IV INVANZ,acute on chronic back pain in a patient with DDD, multiple recent recurre nt hospitalizations X 3 within 3 weeks.Physical therapy/occupational therapy continues to reccommend Inpatient Rehab. (2) Progressive Weakness , secondary to repeated inpatient hospitalizations , 3 in 3 weeks,S/P recent Sepsis. Current Visit: Yes Status: Acute Code(s): R53.1 - WEAKNESS SNOMED Code(s): 90689876 (3) History of infection/Sepsis due to ESBL Escherichia coli Current Visit: No Status: Acute Code(s): Z86.19 - PERSONAL HISTORY OF OTHER INFECTIOUS AND PARASITIC DISEASES SNOMED Code(s): 682598642 (4) Abnormal troponins, Lexiscan stress test with reversible ischemia involving lateral wall, maximizing medical therapy as per cardiology. Cardiology recommending holding off of anticoagulation at this time secondary to recurrent falls. To be further evaluated outpatient in clinic with cardiology regarding anticoagulation or referral for a watchman's device. (5) Persistent atrial fibrillation,slow ventricular rate with pauses of less than 3 seconds while sleeping, no pacemaker implantation recommended at this time as per cardiology. Not on anticoagulation secondary to ITP.Evaluated by Hematology on 11/12/24,recommending patient cant be placed on anticoagulation for his cardiology related issues as long as plts are > 50,000, however patient is a fall risk having multiple falls due to progressive weakness. Current Visit: No Status: Acute Code(s): I48.11 - LONGSTANDING PERSISTENT A TRIAL FIBRILLATION SNOMED Code(s): 669380988 (6) CAD, History of CABG (7)Chronic CHF Diastolic Dysfunction (8) Altered mental status, hallucinations ,acute metabolic encephalopathy, multifactorial, seconadry to all the above Current Visit: No Status: Acute Code(s): R41.82 - ALTERED MENTAL STATUS, UNSPECIFIED SNOMED Code(s): 677844419 Current Visit: No Status: Acute Code(s): R44.3 - HALLUCINATIONS, UNSPECIFIED SNOMED Code(s): 0683207 (9) History of anxiety Current Visit: No Status: Acute Code(s): Z86.59 - PERSONAL HISTORY OF OTHER MENTAL AND BEHAVIORAL DISORDERS SNOMED Code(s): 175152072 (10) Diabetes mellitus Type 2,A1c 5.1 (11) 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 Winn Current Visit: No Status: Chronic Priority: High Code(s): D69.3 - IMMUNE THROMBOCYTOPENIC PURPURA SNOMED Code(s): 4344848 (14) Hyperlipidemia Current Visit: No Status: Acute Code(s): E78.5 - HYPERLIPIDEMIA, UNSPECIFIED SNOMED Code(s): 92598221 (15) Hypertension Current Visit: No Status: Acute Code(s): I10 - ESSENTIAL (PRIMARY) HYPERTENSION SNOMED Code(s): 71877062 (16) Hypomagnesemia Plan: Continue on current medication regime ,monitoring and symptomatic treatment. Pain management with Tylenol, up in chair with assist. Patient has been evaluated and accepted by [facility] inpatient rehab.pending insurance authorization. Discharge planning in progress for [facility]., which patient is in dire need of and has been rec. per OT/PT's evaluation, as weakness has notably progressed with recent multiple hospitallizations. Maintain daily physical therapy. Close monitoring of renal function. The impression and plan of care has been dictated as directed. : I performed a history and examination of this patient, discussed the same with the dictator. I agree with the dictator's note ,documented as a scribe. Any additional findings or plans will be noted.
--- NOTE | 2024-11-15 11:49 | P.PN ---
Subjective Patient is seen in follow-up for renal transplant management. Creatinine 1.3 yesterday. Receiving IV fluids. Denies chest pain or shortness of breath. No active complaints. Hemodynamically stable. Vital signs are stable. General: No acute distress. HEENT: Head exam is unremarkable. LUNGS: No audible rhonchi or wheezes. HEART: Rate and Rhythm are regular. ABDOMEN: Nontender. EXTREMITITES: Trace edema. Objective - Vital Signs Vital signs: Vital Signs Temp 97.5 F L 11/15/24 07:40 Pulse 62 11/15/24 07:40 Resp 16 11/15/24 07:40 BP 161/75 11/15/24 07:40 Pulse Ox 97 11/15/24 07:40 FiO2 Intake & Output 11/14/24 11/15/24 11/15/24 18:59 06:59 18:59 Intake Total 118 118 Output Total 400 500 Balance -282 -382 Weight 90.718 kg Intake: Oral 118 118 Output: Urine 400 500 Other: Voiding Method Urinal Urinal Diaper Diaper # Voids 1 1 # Bowel Movements 1 - Labs CBC & Chem 7: 11/11/24 04:17 11/14/24 04:22 Labs: Abnormal Lab Results - Last 24 Hours (Table) 11/14/24 11/14/24 11/14/24 Range/Units 11:59 17:20 19:59 POC Glucose (mg/dL) 323 H 317 H 243 H (70-110) mg/dL 11/15/24 Range/Units 05:18 POC Glucose (mg/dL) 203 H (70-110) mg/dL Assessment and Plan Plan: Assessment: 1. Status post donor renal transplant in 2002. 2. 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 3. Generalized weakness and falls. 4. Recent E. coli bacteremia and UTI status post antibiotics. 5. Hypertension with chronic kidney disease. Stable. 6. Chronic diastolic CHF with moderate aortic stenosis. Plan: Encouraged oral intake. Hep-Lock IV fluids. Maintain antirejection meds. Prograf level 7.7 dated November 13, 2024. Avoid nephrotoxins. Continue to monitor renal function and urine output. Reversible ischemia noted on stress test. Cardiology following. Inpatient rehab being considered.
[2024-11-15 11:54] LABS: African American GFR (CKD) >90 (>60 ml/min/1.73 sqM); Anion Gap 8 mmol/L; Blood Urea Nitrogen 19 mg/dL (9-20); Calcium 8.2 mg/dL (8.4-10.2); Carbon Dioxide 25 mmol/L (22-30); Chloride 103 mmol/L (98-107); Glucose 311 mg/dL (74-99); Non-African American GFR(CKD) 80 (>60 ml/min/1.73 sqM); Potassium 3.9 mmol/L (3.5-5.1); Sodium 136 mmol/L (137-145)
[2024-11-15 12:11] LABS: Glucose,Whole Blood 328 mg/dL (70-110)
[2024-11-15 17:03] LABS: Glucose,Whole Blood 362 mg/dL (70-110)
[2024-11-15 19:56] LABS: Glucose,Whole Blood 227 mg/dL (70-110)
[2024-11-16 06:11] LABS: Glucose,Whole Blood 201 mg/dL (70-110)
[2024-11-16 12:17] LABS: Glucose,Whole Blood 252 mg/dL (70-110)
--- NOTE | 2024-11-16 12:26 | P.PN ---
Subjective Patient is seen for follow-up for posttransplant care Renal function has been stable. Serum creatinine 0.89 yesterday. No significant complaints today. Objective - Vital Signs Vital signs: Vital Signs Temp 97.5 F L 11/16/24 07:00 Pulse 74 11/16/24 07:00 Resp 18 11/16/24 07:00 BP 126/64 11/16/24 07:00 Pulse Ox 98 11/16/24 07:00 FiO2 Intake & Output 11/15/24 11/16/24 11/16/24 18:59 06:59 18:59 Intake Total 318 118 Balance 318 118 Weight 90.718 kg Intake: Oral 318 118 Other: Voiding Method Toilet Toilet Toilet Urinal Urinal Urinal Diaper Diaper Diaper # Voids 1 2 1 - Exam Patient is awake, comfortable, no acute distress Examination of the heart S1 and S2 Examination of the lungs bilateral breath sounds are heard Abdomen is soft nontender Examination of lower extremities shows no significant edema DRAFTER ASSISTANT exam grossly intact - Labs CBC & Chem 7: 11/11/24 04:17 11/15/24 11:25 Labs: Abnormal Lab Results - Last 24 Hours (Table) 11/15/24 11/15/24 11/16/24 Range/Units 17:02 19:52 06:09 POC Glucose (mg/dL) 362 H 227 H 201 H (70-110) mg/dL 11/16/24 Range/Units 12:16 POC Glucose (mg/dL) 252 H (70-110) mg/dL Assessment and Plan Assessment: 1. Status post donor renal transplant in 2002. 2. 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 3. Generalized weakness and falls. 4. Recent E. coli bacteremia and UTI status post antibiotics. 5. Hypertension with chronic kidney disease. Stable. 6. Chronic diastolic CHF with moderate aortic stenosis. Plan: Continue current immunosuppressive medications Advised to maintain good oral intake.
--- NOTE | 2024-11-16 16:28 | P.PN ---
Subjective Progress Note Date: 11/16/24 Patient is a 84-year-old male with a past medical history of coronary artery disease status post CABG, atrial fibrillation not on anticoagulation due to ITP, history of renal transplant on immunosuppressive therapy, CKD stage III yea, hypertension, hyperlipidemia, diabetes type 2 insulin-dependent, hypothyroidism, osteoarthritis, anxiety/depression.Patient was brought to the hospital due to frequent falls. According to his at bedside patient fell about 4 times and 3 times she was able to get up and he felt very weak and could not get up himself for for the time. He has been having generalized weakness. He was also being confused and delirious could not sleep overnight. Patient had recent hospitalization for UTI and sepsis. He was discharged on 11/06/2024. He was found to have ESBL E. coli urinary tract infection and was discharged after completing Invanz for 10-day course. 11/12/2024 patient continues to display generalized weakness, difficulty with balance-continued to have falls at home.PT evaluation pending. Consult for [facility] inpatient rehab in place. Patient was actually accepted last week at [facility] inpatient rehab but patient's insurance company would not give authorization. Denies chest pain, palpitations or shortness of breath. Echo reported EF of 55 to 60% mild to moderate mitral regurgitation, moderate aortic stenosis, mild to moderate aortic regurgitation and mild tricuspid regurgitation. Lexiscan stress test reported reversible ischemia involving lateral wall. 11/13/2024 evaluated by PT secondary to weakness, multiple falls, recommending inpatient rehab./Subacute rehab. Patient cooperative and eager for inpatient rehab facilitation. Patient is in dire need of inpatient rehabilitation to increase his strength, functional mobility. Denies chest pain, palpitations or shortness of breath. Ambulating to chair with assistance, tolerated exertion well. Denies lightheadedness dizziness or focal deficits. Maintained on re jection medication regimen. GFR worsened, today, 46. Receiving gentle IV fluid hydration. Bladder scan pending. Vital signs stable. 11/14/2024 no overnight events. Denies chest pain, palpitations or shortness of breath. Maintaining O2 sats in the mid 90s on 2 L nasal cannula O2. Afebrile, hemodynamically stable. Magnesium 1.6. GFR increased to 55 today. Blood sugars better controlled today. Weakness has progressed with recent multiple hospitallizations. Motivated and cooperative with daily PT. [facility]. evaluated and accepted patient. Insurance authorization pending. 11/15/24 Complains of increased back pain that he relates to hospital bed, did not sleep well last night,accompanied by mild delirium, which has subsided this morning. Afebrile. Denies chest pain, palpitations or increased shortness of breath. Maintaining O2 sats in the mid to high 90s on 2 L nasal cannula. BMP pending. Patient expresses eagerness to regain his strength, balance ,endurance. Good diet intake. Denies nausea, vomiting or diarrhea. Denies abdominal pain. Bowel movement yesterday afternoon. 11/16. Patient seen and examined. No acute issues overnight. Vital signs stable REVIEW OF SYSTEMS: CONSTITUTIONAL: No fever, no malaise,. CARDIOVASCULAR: No chest pain, no palpitations, no syncope. PULMONARY: No shortness of breath, no cough, GASTROINTESTINAL: No diarrhea, no nausea, no vomiting, no abdominal pain. NEUROLOGICAL: No headaches, no weakness, PHYSICAL EXAMINATION: GENERAL: The patient is alert and oriented x3, not in any acute distress. Well developed, well nourished. HEENT: Pupils are round and equally reacting to light. EOMI. No scleral icterus. No conjunctival pallor. Normocephalic, atraumatic. No pharyngeal erythema. No thyromegaly. CARDIOVASCULAR: S1 and S2 present. No murmurs, rubs, or gallops. PULMONARY: Chest is clear to auscultation, no wheezing or crackles. ABDOMEN: Soft, nontender, nondistended, normoactive bowel sounds. No palpable organomegaly. MUSCULOSKELETAL: No joint swelling or deformity. EXTREMITIES: No cyanosis, clubbing, or pedal edema. NEUROLOGICAL: Gross neurological examination did not reveal any focal deficits. SKIN: No rashes. Assessment and plan (1)Sarcopenia r/t Multiple falls, recurrent, secondary to medical debility s/p recent sepsis initially discharged on 11/01/24 secondary to acute bacteremia molecular ID, E Coli ESBL R/T Acute UTI with ESBL-completed treatment of IV INV ANZ,acute on chronic back pain in a patient with DDD, multiple recent recurrent hospitalizations X 3 within 3 weeks.Physical therapy/occupational therapy continues to reccommend Inpatient Rehab. (2) Progressive Weakness , secondary to repeated inpatient hospitalizations , 3 in 3 weeks,S/P recent Sepsis. (3) History of infection/Sepsis due to ESBL Escherichia coli (4) Abnormal troponins, Lexiscan stress test with reversible ischemia involving lateral wall, maximizing medical therapy as per cardiology. Cardiology recommending holding off of anticoagulation at this time secondary to recurrent falls. To be further evaluated outpatient in clinic with cardiology regarding anticoagulation or referral for a watchman's device. (5) Persistent atrial fibrillation,slow ventricular rate with pauses of less than 3 seconds while sleeping, no pacemaker implantation recommended at this time as per cardiology. Not on anticoagulation secondary to ITP.Evaluated by Hematology on 11/12/24,recommending patient cant be placed on anticoagulation for his cardiology related issues as long as plts are > 50,000, however patient is a fall risk having multiple falls due to progressive weakness. 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 Winn (14) Hyperlipidemia (15) Hypertension (16) Hypomagnesemia Monitor vital signs Monitor CBC Monitor CMP Continue aspirin, Lipitor Continue amlodipine Continue hydralazine Monitor blood sugar levels, critical illness regimen Continue antirejection medications Nephrology following PT and OT following Labs and medication were reviewed.. Continue same treatment. Continue with sy mptomatic treatment. Resume home medication. Monitor labs and vitals. DVT and GI prophylaxis. Further recommendations as per clinical course of the patient Dictation was produced using [employer] dictation software. please excuse any grammatical, word or spelling errors. Objective - Vital Signs Vital signs: Vital Signs Temp 97.5 F L 11/16/24 07:00 Pulse 74 11/16/24 07:00 Resp 18 11/16/24 07:00 BP 126/64 11/16/24 07:00 Pulse Ox 98 11/16/24 07:00 FiO2 Intake & Output 11/15/24 11/16/24 11/16/24 18:59 06:59 18:59 Intake Total 318 Balance 318 Weight 90.718 kg Intake: Oral 318 Other: Voiding Method Toilet Toilet Urinal Urinal Diaper Diaper # Voids 1 2 - Labs CBC & Chem 7: 11/11/24 04:17 11/15/24 11:25 Labs: Abnormal Lab Results - Last 24 Hours (Table) 11/15/24 11/15/24 11/15/24 Range/Units 11:25 12:10 17:02 Sodium 136 L (137-145) mmol/L Glucose 311 H (74-99) mg/dL POC Glucose (mg/dL) 328 H 362 H (70-110) mg/dL Calcium 8.2 L (8.4-10.2) mg/dL 11/15/24 11/16/24 Range/Units 19:52 06:09 Sodium (137-145) mmol/L Glucose (74-99) mg/dL POC Glucose (mg/dL) 227 H 201 H (70-110) mg/dL Calcium (8.4-10.2) mg/dL
[2024-11-16 17:33] LABS: Glucose,Whole Blood 303 mg/dL (70-110)
[2024-11-16 20:21] LABS: Glucose,Whole Blood 285 mg/dL (70-110)
[2024-11-17 05:34] LABS: Glucose,Whole Blood 186 mg/dL (70-110)
[2024-11-17 12:11] LABS: Glucose,Whole Blood 274 mg/dL (70-110)
--- NOTE | 2024-11-17 15:31 | P.PN ---
Subjective Progress Note Date: 11/17/24 Patient is a 84-year-old male with a past medical history of coronary artery disease status post CABG, atrial fibrillation not on anticoagulation due to ITP, history of renal transplant on immunosuppressive therapy, CKD stage III yea, hypertension, hyperlipidemia, diabetes type 2 insulin-dependent, hypothyroidism, osteoarthritis, anxiety/depression.Patient was brought to the hospital due to frequent falls. According to his at bedside patient fell about 4 times and 3 times she was able to get up and he felt very weak and could not get up himself for for the time. He has been having generalized weakness. He was also being confused and delirious could not sleep overnight. Patient had recent hospitalization for UTI and sepsis. He was discharged on 11/06/2024. He was found to have ESBL E. coli urinary tract infection and was discharged after completing Invanz for 10-day course. 11/12/2024 patient continues to display generalized weakness, difficulty with balance-continued to have falls at home.PT evaluation pending. Consult for [facility] inpatient rehab in place. Patient was actually accepted last week at [facility] inpatient rehab but patient's insurance company would not give authorization. Denies chest pain, palpitations or shortness of breath. Echo reported EF of 55 to 60% mild to moderate mitral regurgitation, moderate aortic stenosis, mild to moderate aortic regurgitation and mild tricuspid regurgitation. Lexiscan stress test reported reversible ischemia involving lateral wall. 11/13/2024 evaluated by PT secondary to weakness, multiple falls, recommending inpatient rehab./Subacute rehab. Patient cooperative and eager for inpatient rehab facilitation. Patient is in dire need of inpatient rehabilitation to increase his strength, functional mobility. Denies chest pain, palpitations or shortness of breath. Ambulating to chair with assistance, tolerated exertion well. Denies lightheadedness dizziness or focal deficits. Maintained on re jection medication regimen. GFR worsened, today, 46. Receiving gentle IV fluid hydration. Bladder scan pending. Vital signs stable. 11/14/2024 no overnight events. Denies chest pain, palpitations or shortness of breath. Maintaining O2 sats in the mid 90s on 2 L nasal cannula O2. Afebrile, hemodynamically stable. Magnesium 1.6. GFR increased to 55 today. Blood sugars better controlled today. Weakness has progressed with recent multiple hospitallizations. Motivated and cooperative with daily PT. [facility]. evaluated and accepted patient. Insurance authorization pending. 11/15/24 Complains of increased back pain that he relates to hospital bed, did not sleep well last night,accompanied by mild delirium, which has subsided this morning. Afebrile. Denies chest pain, palpitations or increased shortness of breath. Maintaining O2 sats in the mid to high 90s on 2 L nasal cannula. BMP pending. Patient expresses eagerness to regain his strength, balance ,endurance. Good diet intake. Denies nausea, vomiting or diarrhea. Denies abdominal pain. Bowel movement yesterday afternoon. 11/16. Patient seen and examined. No acute issues overnight. Vital signs stable 11/17. Patient seen and examined. at the bedside. States he feels little bit stronger compared to yesterday. Denies any nausea or vomiting REVIEW OF SYSTEMS: CONSTITUTIONAL: No fever, no malaise,. CARDIOVASCULAR: No chest pain, no palpitations, no syncope. PULMONARY: No shortness of breath, no cough, GASTROINTESTINAL: No diarrhea, no nausea, no vomiting, no abdominal pain. NEUROLOGICAL: No headaches, no weakness, PHYSICAL EXAMINATION: GENERAL: The patient is alert and oriented x3, not in any acute distress. Well developed, well nourished. HEENT: Pupils are round and equally reacting to light. EOMI. No scleral icterus. No conjunctival pallor. Normocephalic, atraumatic. No pharyngeal erythema. No thyromegaly. CARDIOVASCULAR: S1 and S2 present. No murmurs, rubs, or gallops. PULMONARY: Chest is clear to auscultation, no wheezing or crackles. ABDOMEN: Soft, nontender, nondistended, normoactive bowel sounds. No palpable organomegaly. MUSCULOSKELETAL: No joint swelling or deformity. EXTREMITIES: No cyanosis, clubbing, or pedal edema. NEUROLOGICAL: Gross neurological examination did not reveal any focal deficits. SKIN: No rashes. Assessment and plan (1)Sarcopenia r/t Multiple falls, recurrent, secondary to medical debility s/p recent sepsis initially discharged on 11/01/24 secondary to acute bacteremia molecular ID, E Coli ESBL R/T Acute UTI with ESBL-completed treatment of IV INVANZ,acute on chronic back pain in a patient with DDD, multiple recent recurrent hospitalizations X 3 within 3 weeks.Physical therapy/occupational therapy continues to reccommend Inpatient Rehab. (2) Progressive Weakness , secondary to repeated inpatient hospitalizations , 3 in 3 weeks,S/P recent Sepsis. (3) History of infection/Sepsis due to ESBL Escherichia coli (4) Abnormal troponins, Lexiscan stress test with reversible ischemia involving lateral wall, maximizing medical therapy as per cardiology. Cardiology recommending holding off of anticoagulation at this time secondary to recurrent falls. To be further evaluated outpatient in clinic with cardiology regarding anticoagulation or referral for a watchman's device. (5) Persistent atrial fibrillation,slow ventricular rate with pauses of less than 3 seconds while sleeping, no pacemaker implantation recommended at this time as per cardiology. Not on anticoagulation secondary to ITP.Evaluated by Hematology on 11/12/24,recommending patient cant be placed on anticoagulation for his cardiology related issues as long as plts are > 50,000, however patient is a fall risk having multiple falls due to progressive weakness. 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 Winn (14) Hyperlipidemia (15) Hypertension (16) Hypomagnesemia Monitor vital signs Monitor CBC Monitor CMP Continue aspirin, Lipitor Continue amlodipine Continue hydralazine Monitor blood sugar levels, critical illness regimen Continue antirejection medications Nephrology following PT and OT following Labs and medication were reviewed.. Continue same treatment. Continue with symptomatic treatment. Resume home medication. Monitor labs and vitals. DVT and GI prophylaxis. Further recommendations as per clinical course of the patient Dictation was produced using [employer] dictation software. please excuse any grammatical, word or spelling errors. Objective - Vital Signs Vital signs: Vital Signs Temp 99.0 F 11/17/24 13:55 Pulse 61 11/17/24 13:55 Resp 14 11/17/24 13:55 BP 134/69 11/17/24 13:55 Pulse Ox 98 04/27/25 13:55 FiO2 Intake & Output 11/16/24 11/17/24 11/17/24 18:59 06:59 18:59 Intake Total 236 780 Balance 236 780 Intake: Oral 236 780 Other: Voiding Method Toilet Toilet Toilet Urinal Urinal Urinal Diaper Diaper Diaper # Voids 2 2 4 # Bowel Movements 0 0 - Labs CBC & Chem 7: 11/11/24 04:17 11/15/24 11:25 Labs: Abnormal Lab Results - Last 24 Hours (Table) 11/16/24 11/16/24 11/17/24 Range/Units 17:31 20:19 05:33 POC Glucose (mg/dL) 303 H 285 H 186 H (70-110) mg/dL 11/17/24 Range/Units 12:09 POC Glucose (mg/dL) 274 H (70-110) mg/dL
[2024-11-17 17:04] LABS: Glucose,Whole Blood 350 mg/dL (70-110)
[2024-11-17 20:07] LABS: Glucose,Whole Blood 344 mg/dL (70-110)
[2024-11-18 06:19] LABS: Glucose,Whole Blood 242 mg/dL (70-110)
[2024-11-18 09:04] LABS: ALT 13 U/L (10-49); AST 16 U/L (14-35); Albumin 3.2 g/dL (3.8-4.9); Alkaline Phosphatase 74 U/L (41-126); BUN/Creat Ratio 19.64 Ratio (12.00-20.00); Blood Urea Nitrogen 21.6 mg/dL (9.0-27.0); Calcium 8.3 mg/dL (8.7-10.3); Carbon Dioxide 24.5 mmol/L (21.6-31.8); Chloride 104 mmol/L (96-109); Globulin 1.6 g/dL (1.6-3.3); Glucose 273 mg/dL (70-110); Sodium 138 mmol/L (135-145); Total Bilirubin 0.7 mg/dL (0.3-1.2); Total Protein 4.8 g/dL (6.2-8.2)
--- NOTE | 2024-11-18 10:15 | P.DS ---
Providers Date of admission: 11/10/24 11:33 Expected date of discharge: 11/18/24 Attending physician: Narinder Rosenberg Consults: 11/10/24 18:02 Consult Physician Routine Consulting Provider: El Man Consult Reason/Comments: kidney transplantpt, known to service Do you want consulting provider notified?: Yes 11/11/24 10:04 Consult Physician Routine Consulting Provider: Bear Winn Consult Reason/Comments: hx of ITP, safe to anticoagulate? hx of AFIB Do you want consulting provider notified?: Yes 11/12/24 12:23 Consult Physician Routine Consulting Provider: Brian Argueta Consult Reason/Comments: [facility] Inpatient Rehab Do you want consulting provider notified?: Yes Primary care physician: Narinder Rosenberg [place] [facility] Course: Final Diagnoses: (1)Sarcopenia r/t Multiple falls, recurrent, secondary to medical debility s/p recent sepsis initially discharged on 11/01/24 secondary to acute bacteremia molecular ID, E Coli ESBL R/T Acute UTI with ESBL-completed treatment of IV INVANZ,acute on chronic back pain in a patient with DDD, multiple recent recurrent hospitalizations X 3 within 3 weeks.Physical therapy/occupational therapy continues to reccommend Inpatient Rehab. (2) Progressive Weakness , secondary to repeated inpatient hospitalizations , 3 in 3 weeks,S/P recent Sepsis. Current Visit: Yes Status: Acute Code(s): R53.1 - WEAKNESS SNOMED Code(s): 17480679 (3) History of infection/Sepsis due to ESBL Escherichia coli Current Visit: No Status: Acute Code(s): Z86.19 - PERSONAL HISTORY OF OTHER INFECTIOUS AND PARASITIC DISEASES SNOMED Code(s): 159994970 (4) Abnormal troponins, Lexiscan stress test with reversible ischemia involving lateral wall, maximizing medical therapy as per cardiology. Cardiology recommending holding off of anticoagulation at this time secondary to recurrent falls. To be further evaluated outpatient in clinic with cardiology regarding anticoagulation or referral for a watchman's device. (5) Persistent atrial fibrillation,slow ventricular rate with pauses of less than 3 seconds while sleeping, no pacemaker implantation recommended at this time as per cardiology. Not on anticoagulation secondary to ITP.Evaluated by Hematology on 11/12/24,recommending patient cant be placed on anticoagulation for his cardiology related issues as long as plts are > 50,000, however patient is a fall risk having multiple falls due to progressive weakness. Current Visit: No Status: Acute Code(s): I48.11 - LONGSTANDING PERSISTENT ATRIAL FIBRILLATION SNOMED Code(s): 975849657 (6) CAD, History of CABG (7)Chronic CHF Diastolic Dysfunction (8) Altered mental status, hallucinations ,acute metabolic encephalopathy, multifactorial, seconadry to all the above Current Visit: No Status: Acute Code(s): R41.82 - ALTERED MENTAL STATUS, UNSPECIFIED SNOMED Code(s): 296288430 Current Visit: No Status: Acute Code(s): R44.3 - HALLUCINATIONS, UNSPECIFIED SNOMED Code(s): 1567156 (9) History of anxiety Current Visit: No Status: Acute Code(s): Z86.59 - PERSONAL HISTORY OF OTHER MENTAL AND BEHAVIORAL DISORDERS SNOMED Code(s): 596303528 (10) Diabetes mellitus Type 2,A1c 5.1 (11) 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 Winn Current Visit: No Status: Chronic Priority: High Code(s): D69.3 - IMMUNE THROMBOCYTOPENIC PURPURA SNOMED Code(s): 9613261 (14) Hyperlipidemia Current Visit: No Status: Acute Code(s): E78.5 - HYPERLIPIDEMIA, UNSPECIFIED SNOMED Code(s): 87061267 (15) Hypertension Current Visit: No Status: Acute Code(s): I10 - ESSENTIAL (PRIMARY) HYPERTENSION SNOMED Code(s): 61805638 (16) Hypomagnesemia Hospital course:Patient is a 84-year-old male with a past medical history of coronary artery disease status post CABG, atrial fibrillation not on anticoagulation due to ITP, history of renal transplant on immunosuppressive therapy, CKD stage III yea, hypertension, hyperlipidemia, diabetes type 2 insulin-dependent, hypothyroidism, osteoarthritis, anxiety/depression.Patient was brought to the hospital due to frequent falls. According to his at bedside patient fell about 4 times and 3 times she was able to get up and he felt very weak and could not get up himself for for the time. He has been having generalized weakness. He was also being confused and delirious could not sleep overnight. Patient had recent hospitalization for UTI and sepsis. He was discharged on 11/06/2024. He was found to have ESBL E. coli urinary tract infection and was discharged after completing Invanz for 10-day course. 11/12/2024 patient continues to display generalized weakness, difficulty with balance-continued to have falls at home.PT evaluation pending. Consult for [facility] inpatient rehab in place. [facility] was [facility] but patient's insurance company would not give authorization. Denies chest pain, palpitations or shortness of breath. Echo reported EF of 55 to 60% mild to moderate mitral regurgitation, moderate aortic stenosis, mild to moderate aortic regurgitation and mild tricuspid regurgitation. Lexiscan stress test reported reversible ischemia involving lateral wall. 11/13/2024 evaluated by PT secondary to weakness, multiple falls, recommending inpatient rehab./Subacute rehab. Patient cooperative and eager for inpatient rehab facilitation. Patient is in dire need of inpatient rehabilitation to increase his strength, functional mobility. Denies chest pain, palpitations or shortness of breath. Ambulating to chair with assistance, tolerated exertion well. Denies lightheadedness dizziness or focal deficits. Maintained on rejection medication regimen. GFR worsened, today, 46. Receiving gentle IV f luid hydration. Bladder scan pending. Vital signs stable. 11/14/2024 no overnight events. Denies chest pain, palpitations or shortness of breath. Maintaining O2 sats in the mid 90s on 2 L nasal cannula O2. Afebrile, hemodynamically stable. Magnesium 1.6. GFR increased to 55 today. Blood sugars better controlled today. Weakness has progressed with recent multiple hospitallizations. Motivated and cooperative with daily PT. [facility]. evaluated and accepted patient. Insurance authorization pending. 11/15/24 Complains of increased back pain that he relates to hospital bed, did not sleep well last night,accompanied by mild delirium, which has subsided this morning. Afebrile. Denies chest pain, palpitations or increased shortness of breath. Maintaining O2 sats in the mid to high 90s on 2 L nasal cannula. BMP pending. Patient expresses eagerness to regain his strength, balance ,endurance. Good diet intake. Denies nausea, vomiting or diarrhea. Denies abdominal pain. Bowel movement yesterday afternoon. Significant clinical improvement. Patient will be discharged in a stable condition with guarded prognosis to subacute rehab. with carveout for high cost medications, as recommended per patient's insurance company on Monday during the appeal for inpatient rehab. The impression and plan of care has been dictated as directed. : I performed a history and examination of this patient, discussed the same with the dictator. I agree with the dictator's note ,documented as a scribe. Any additional findings or plans will be noted. Patient Condition at Discharge: Stable Plan - Discharge Summary Discharge Rx Participant: Yes New Discharge Prescriptions: New hydrALAZINE HCL [Apresoline] 25 mg PO TID #90 tab Nitroglycerin Sl Tabs [Nitrostat] 0.4 mg SUBLINGUAL Q5M PRN tab PRN Reason: Chest Pain Continue Finasteride [Proscar] 5 mg PO DAILY Tamsulosin HCl [Flomax] 0.4 mg PO DAILY Multivitamins, Thera [Multivitamin (formulary)] 1 tab PO DAILY Vit C/E/Zn/Coppr/Lutein/Zeaxan [Preservision Areds 2 Softgel] 1 cap PO HS Pantoprazole [Protonix] 40 mg PO DAILY Tacrolimus [Prograf] 1 mg PO BID Sodium Bicarbonate Tab 650 mg PO BID QUEtiapine [SEROquel] 100 mg PO HS rOPINIRole HCL [Requip] 1 mg PO HS Magnesium Oxide [Mag-Ox] 400 mg PO DAILY tab Loperamide [Imodium] 2 mg PO QID PRN #24 cap PRN Reason: Diarrhea Ferrous Sulfate [Iron] 325 mg PO DAILY predniSONE 5 mg PO DAILY hydrALAZINE HCL [Apresoline] 100 mg PO TID PRN PRN Reason: BP>140 Gabapentin [Neurontin] 400 mg PO HS Acetaminophen Tab [Tylenol] 650 mg PO Q6HR PRN tab PRN Reason: Mild Pain Or Fever > 100.5 Insulin Lispro [humaLOG Kwikpen] See Protocol SQ AC-TID Levothyroxine Sodium [Synthroid] 75 mcg PO DAILY DULoxetine HCL [Cymbalta] 120 mg PO DAILY Aspirin 81 mg PO DAILY Rosuvastatin Calcium [Crestor] 5 mg PO HS Eltrombopag Olamine [Promacta] 12.5 mg PO DAILY@0700 mycophenolate mofetiL [Cellcept] 250 mg PO BID #0 Vibegron [Gemtesa] 75 mg PO DAILY Insulin Glargine/Lixisenatide [Soliqua 100 Unit-33 Mcg/ml Pen] 20 units SQ DAILY #0 amLODIPine [Norvasc] 5 mg PO BID #60 tab Mirabegron [Myrbetriq] 50 mg PO DAILY Changed Metoprolol Tartrate [Lopressor] 50 mg PO BID #60 tab Discontinued hydrALAZINE HCL [Apresoline] 50 mg PO TID #90 tab Discharge Medication List Finasteride [Proscar] 5 mg PO DAILY 02/09/17 [History] Tamsulosin HCl [Flomax] 0.4 mg PO DAILY 02/09/17 [History] Multivitamins, Thera [Multivitamin (formulary)] 1 tab PO DAILY 12/31/18 [History] Vit C/E/Zn/Coppr/Lutein/Zeaxan [Preservision Areds 2 Softgel] 1 cap PO HS 12/18/19 [History] Pantoprazole [Protonix] 40 mg PO DAILY 12/28/19 [History] Tacrolimus [Prograf] 1 mg PO BID 04/03/20 [History] DULoxetine HCL [Cymbalta] 120 mg PO DAILY 12/01/20 [History] Levothyroxine Sodium [Synthroid] 75 mcg PO DAILY 12/01/20 [History] Aspirin 81 mg PO DAILY 07/12/21 [History] QUEtiapine [SEROquel] 100 mg PO HS 07/12/21 [History] Rosuvastatin Calcium [Crestor] 5 mg PO HS 07/12/21 [History] Sodium Bicarbonate Tab 650 mg PO BID 07/12/21 [History] rOPINIRole HCL [Requip] 1 mg PO HS 09/02/21 [History] Eltrombopag Olamine [Promacta] 12.5 mg PO DAILY@0700 05/31/23 [History] Magnesium Oxide [Mag-Ox] 400 mg PO DAILY tab 06/07/23 [Rx] Loperamide [Imodium] 2 mg PO QID PRN #24 cap 08/09/23 [Rx] mycophenolate mofetiL [Cellcept] 250 mg PO BID #0 08/09/23 [Rx] Ferrous Sulfate [Iron] 325 mg PO DAILY 03/18/24 [History] Gabapentin [Neurontin] 400 mg PO HS 10/22/24 [History] Vibegron [Gemtesa] 75 mg PO DAILY 10/22/24 [History] hydrALAZINE HCL [Apresoline] 100 mg PO TID PRN 10/22/24 [History] predniSONE 5 mg PO DAILY 10/22/24 [History] Acetaminophen Tab [Tylenol] 650 mg PO Q6HR PRN tab 10/31/24 [Rx] Insulin Glargine/Lixisenatide [Soliqua 100 Unit-33 Mcg/ml Pen] 20 units SQ DAILY #0 10/31/24 [Rx] amLODIPine [Norvasc] 5 mg PO BID #60 tab 11/01/24 [Rx] Insulin Lispro [humaLOG Kwikpen] See Protocol SQ AC-TID 11/04/24 [History] Mirabegron [Myrbetriq] 50 mg PO DAILY 11/10/24 [History] Metoprolol Tartrate [Lopressor] 50 mg PO BID #60 tab 11/14/24 [Rx] hydrALAZINE HCL [Apresoline] 25 mg PO TID #90 tab 11/14/24 [Rx] Nitroglycerin Sl Tabs [Nitrostat] 0.4 mg SUBLINGUAL Q5M PRN tab 11/18/24 [Rx] Follow up Appointment(s)/Referral(s): Binta Crabtree MD [STAFF PHYSICIAN] - 1 Week Narinder Rosenberg DO [Primary Care Provider] - 1 Week (After discharge from rehab.) El Man DO [STAFF PHYSICIAN] - 1 Week Activity/Diet/Wound Care/Special Instructions: MUKUL with carve out for expensive meds CBC, BMP in 3 days PATIENT HAS HOME MED IN MED ROOM IN HIS BIN, PLEASE GIVE TO HIM BEFORE HE LEAVES
[2024-11-18] MEDS ORDERED: traMADol 50 MG TAB PO PRN (10:16)
[2024-11-18 11:34] LABS: Basophils # (A) 0.04 X 10*3/uL (0.00-0.10); Basophils % (A) 0.7 %; Eosinophils # (A) 0.29 X 10*3/uL (0.04-0.35); Eosinophils % (A) 4.9 %; HCT 34.7 % (39.6-50.0); HGB 11.1 g/dL (13.0-17.0); Immature Platelet Fraction 4.8 % (1.1-6.1); Lymphocytes % (A) 20.5 %; MCV 90.6 FL (80.0-97.0); Mean Platelet Volume 11.2 FL (9.5-12.2); Monocytes # (A) 0.59 X 10*3/uL (0.20-1.00); Monocytes % (A) 10.1 %; NRBC Per 100 WBC 0 X 10*3/uL (0.00-0.01); Neutrophils % (A) 63.1 %; Platelet Count 75 X 10*3/uL (140-440); RBC 3.83 X 10*6/uL (4.40-5.60); RDW 15.5 % (11.5-14.5); WBC 5.86 X 10*3/uL (4.50-10.00)
[2024-11-18 12:29] LABS: Glucose,Whole Blood 344 mg/dL (70-110)
[2024-11-18] MEDS: INSULIN GLARGINE (LANTUS) 100 UNIT/ML SYR SQ SCH (13:18)
[2024-11-18 17:00] LABS: Glucose,Whole Blood 256 mg/dL (70-110)
[2024-11-18 20:06] LABS: Glucose,Whole Blood 193 mg/dL (70-110)
[2024-11-19 06:16] LABS: Glucose,Whole Blood 222 mg/dL (70-110)
[2024-11-19 12:54] LABS: Glucose,Whole Blood 243 mg/dL (70-110)
[2024-11-19 17:04] LABS: Glucose,Whole Blood 243 mg/dL (70-110)
[2024-11-19 19:42] LABS: Glucose,Whole Blood 282 mg/dL (70-110)
[2024-11-20 06:20] LABS: Glucose,Whole Blood 156 mg/dL (70-110)
[2024-11-20 09:11] LABS: BUN/Creat Ratio 21.27 Ratio (12.00-20.00); Blood Urea Nitrogen 23.4 mg/dL (9.0-27.0); Calcium 8.5 mg/dL (8.7-10.3); Carbon Dioxide 22.7 mmol/L (21.6-31.8); Chloride 105 mmol/L (96-109); Glucose 172 mg/dL (70-110); Potassium 3.9 mmol/L (3.5-5.5); Sodium 140 mmol/L (135-145)
[2024-11-20 12:45] LABS: Glucose,Whole Blood 224 mg/dL (70-110)
--- NOTE | 2024-11-20 12:54 | P.PN ---
Subjective Progress Note Date: 11/20/24 Progress Note Date: 11/11/24 Patient is a 84-year-old male with a past medical history of coronary artery disease status post CABG, atrial fibrillation not on anticoagulation due to ITP, history of renal transplant on immunosuppressive therapy, CKD stage III yea, hypertension, hyperlipidemia, diabetes type 2 insulin-dependent, hypothyroidism, osteoarthritis, anxiety/depression.Patient was brought to the hospital due to frequent falls. According to his at bedside patient fell about 4 times and 3 times she was able to get up and he felt very weak and could not get up him self for for the time. He has been having generalized weakness. He was also being confused and delirious could not sleep overnight. Patient had recent hospitalization for UTI and sepsis. He was discharged on 11/06/2024. He was found to have ESBL E. coli urinary tract infection and was discharged after completing Invanz for 10-day course. 11/12/2024 patient continues to display generalized weakness, difficulty with balance-continued to have falls at home.PT evaluation pending. Consult for [facility] inpatient rehab in place. Patient was actually accepted last week at [facility] inpatient rehab but patient's insurance company would not give authorization. Denies chest pain, palpitations or shortness of breath. Echo reported EF of 55 to 60% mild to moderate mitral regurgitation, moderate aortic stenosis, mild to moderate aortic regurgitation and mild tricuspid regur gitation. Lexiscan stress test reported reversible ischemia involving lateral wall. 11/13/2024 evaluated by PT secondary to weakness, multiple falls, recommending inpatient rehab./Subacute rehab. Patient cooperative and eager for inpatient rehab facilitation. Patient is in dire need of inpatient rehabilitation to increase his strength, functional mobility. Denies chest pain, palpitations or shortness of breath. Ambulating to chair with assistance, tolerated exertion well. Denies lightheadedness dizziness or focal deficits. Maintained on rejection medication regimen. GFR worsened, today, 46. Receiving gentle IV fluid hydration. Bladder scan pending. Vital signs stable. 11/14/2024 no overnight events. Denies chest pain, palpitations or shortness of breath. Maintaining O2 sats in the mid 90s on 2 L nasal cannula O2. Afebrile, hemodynamically stable. Magnesium 1.6. GFR increased to 55 today. Blood sugars better controlled today. Weakness has progressed with recent multiple hospitallizations. Motivated and cooperative with daily PT. [facility]. evaluated and accepted patient. Insurance authorization pending. 11/15/24 Complains of increased back pain that he relates to hospital bed, did not sleep well last night,accompanied by mild delirium, which has subsided this morning. Afebrile. Denies chest pain, palpitations or increased shortness of breath. Maintaining O2 sats in the mid to high 90s on 2 L nasal cannula. BMP pending. Patient expresses eagerness to regain his strength, balance ,endurance. Good diet intake. Denies nausea, vomiting or diarrhea. Denies abdominal pain. Bowel movement yesterday afternoon. 11/20/2024 complains of chronic back pain, ambulating with walker with PT supervision. Denies lightheadedness dizziness or focal deficits .blood sugars better controlled. Denies chest pain, palpitations or shortness of breath. Maintaining O2 sats in the high 90s on room air. Insurance Auth with carveout pending for subacute rehab. Objective - Vital Signs Vital signs: Vital Signs Temp 97.5 F L 11/20/24 07:17 Pulse 54 L 11/20/24 07:17 Resp 17 11/20/24 07:17 BP 139/63 11/20/24 07:17 Pulse Ox 99 11/20/24 07:17 FiO2 Intake & Output 11/19/24 11/20/24 11/20/24 18:59 06:59 18:59 Intake Total 60 Balance 60 Intake: Oral 60 Other: Voiding Method Toilet Diaper # Voids 1 2 1 - Exam GENERAL: Alert and oriented x 3, sitting up in chair, no acute distress. HEENT: Atraumatic, normocephalic. Pupils are equal, round, Conjunctivae are clear. MMM. RESPIRATORY: Unlabored, equal air entry ,clear to auscultation. CARDIOVASCULAR: Irregular rate and rhythm. S1 and S2 noted. Systolic murmur. GASTROINTESTINAL: Soft, nontender, nondistended. Positive bowel sounds. INTEGUMENTARY: Warm and dry, no rashes noted. EXTREMITIES: 2+ peripheral pulses. No evidence of peripheral edema. No calf tenderness noted. Positive DP pulses NEUROLOGIC: Cranial nerves II-XII intact. - Labs CBC & Chem 7: 11/18/24 04:24 11/20/24 04:51 Labs: Abnormal Lab Results - Last 24 Hours (Table) 11/19/24 11/19/24 11/19/24 Range/Units 12:52 17:02 19:41 Anion Gap (4.00-12.00) mmol/L BUN/Creatinine Ratio (12.00-20.00) Ratio Glucose (70-110) mg/dL POC Glucose (mg/dL) 243 H 243 H 282 H (70-110) mg/dL Calcium (8.7-10.3) mg/dL 11/20/24 11/20/24 Range/Units 04:51 06:18 Anion Gap 12.30 H (4.00-12.00) mmol/L BUN/Creatinine Ratio 21.27 H (12.00-20.00) Ratio Glucose 172 H (70-110) mg/dL POC Glucose (mg/dL) 156 H (70-110) mg/dL Calcium 8.5 L (8.7-10.3) mg/dL Assessment and Plan Assessment: (1)Sarcopenia r/t Multiple falls, recurrent, secondary to medical debility s/p recent sepsis initially discharged on 11/01/24 secondary to acute bacteremia molecular ID, E Coli ESBL R/T Acute UTI with ESBL-completed treatment of IV INVANZ,acute on chronic back pain in a patient with DDD, multiple recent recurrent hospitalizations X 3 within 3 weeks.Physical therapy/occupational therapy continues to reccommend Inpatient Rehab. (2) Progressive Weakness , secondary to repeated inpatient hospitalizations , 3 in 3 weeks,S/P recent Sepsis. Current Visit: Yes Status: Acute Code(s): R53.1 - WEAKNESS SNOMED Code(s): 72476929 (3) History of infection/Sepsis due to ESBL Escherichia coli Current Visit: No Status: Acute Code(s): Z86.19 - PERSONAL HISTORY OF OTHER INFECTIOUS AND PARASITIC DISEASES SNOMED Code(s): 344934625 (4) Abnormal troponins, Lexiscan stress test with reversible ischemia involving lateral wall, maximizing medical therapy as per cardiology. Cardiology recomme nding holding off of anticoagulation at this time secondary to recurrent falls. To be further evaluated outpatient in clinic with cardiology regarding anticoagulation or referral for a watchman's device. (5) Persistent atrial fibrillation,slow ventricular rate with pauses of less than 3 seconds while sleeping, no pacemaker implantation recommended at this time as per cardiology. Not on anticoagulation secondary to ITP.Evaluated by Hematology on 11/12/24,recommending patient cant be placed on anticoagulation for his cardiology related issues as long as plts are > 50,000, however patient is a fall risk having multiple falls due to progressive weakness. Current Visit: No Status: Acute Code(s): I48.11 - LONGSTANDING PERSISTENT ATRIAL FIBRILLATION SNOMED Code(s): 543038675 (6) CAD, History of CABG (7)Chronic CHF Diastolic Dysfunction (8) Altered mental status, hallucinations ,acute metabolic encephalopathy, mul tifactorial, seconadry to all the above Current Visit: No Status: Acute Code(s): R41.82 - ALTERED MENTAL STATUS, UNSPECIFIED SNOMED Code(s): 435536627 Current Visit: No Status: Acute Code(s): R44.3 - HALLUCINATIONS, UNSPECIFIED SNOMED Code(s): 5368622 (9) History of anxiety Current Visit: No Status: Acute Code(s): Z86.59 - PERSONAL HISTORY OF OTHER MENTAL AND BEHAVIORAL DISORDERS SNOMED Code(s): 031960345 (10) Diabetes mellitus Type 2,A1c 5.1 (11) 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 Winn Current Visit: No Status: Chronic Priority: High Code(s): D69.3 - IMMUNE THROMBOCYTOPENIC PURPURA SNOMED Code(s): 6428242 (14) Hyperlipidemia Current Visit: No Status: Acute Code(s): E78.5 - HYPERLIPIDEMIA, UNSPECIFIED SNOMED Code(s): 60249522 (15) Hypertension Current Visit: No Status: Acute Code(s): I10 - ESSENTIAL (PRIMARY) HYPERTENSION SNOMED Code(s): 44232361 (16) Hypomagnesemia Plan: Continue on current medication regime ,monitoring and symptomatic t reatment. Pain management with tramadol. Discharge planning in progress for [facility], pending insurance Auth with Carve out for high cost medication. Maintain daily physical therapy. The impression and plan of care has been dictated as directed. : I performed a history and examination of this patient, discussed the same with the dictator. I agree with the dictator's note ,documented as a scribe. Any additional findings or plans will be noted.
[2024-11-20 18:10] LABS: Glucose,Whole Blood 321 mg/dL (70-110)
[2024-11-20 20:54] LABS: Glucose,Whole Blood 297 mg/dL (70-110)
[2024-11-21 05:47] LABS: Glucose,Whole Blood 219 mg/dL (70-110)
[2024-11-21 11:54] LABS: Glucose,Whole Blood 241 mg/dL (70-110)
[2024-11-21 17:09] LABS: Glucose,Whole Blood 322 mg/dL (70-110)
[2024-11-21 19:14] LABS: Glucose,Whole Blood 325 mg/dL (70-110)
--- NOTE | 2024-11-21 20:01 | P.PN ---
Subjective Progress Note Date: 11/21/24 Patient is a 84-year-old male with a past medical history of coronary artery disease status post CABG, atrial fibrillation not on anticoagulation due to ITP, history of renal transplant on immunosuppressive therapy, CKD stage III yea, hypertension, hyperlipidemia, diabetes type 2 insulin-dependent, hypothyroidism, osteoarthritis, anxiety/depression.Patient was brought to the hospital due to frequent falls. According to his at bedside patient fell about 4 times and 3 times she was able to get up and he felt very weak and could not get up himself for for the time. He has been having generalized weakness. He was also being confused and delirious could not sleep overnight. Patient had recent hospitalization for UTI and sepsis. He was discharged on 11/06/2024. He was found to have ESBL E. coli urinary tract infection and was discharged after completing Invanz for 10-day course. 11/12/2024 patient continues to display generalized weakness, difficulty with balance-continued to have falls at home.PT evaluation pending. Consult for [facility] inpatient rehab in place. Patient was actually accepted last week at [facility] inpatient rehab but patient's insurance company would not give authorization. Denies chest pain, palpitations or shortness of breath. Echo reported EF of 55 to 60% mild to moderate mitral regurgitation, moderate aortic stenosis, mild to moderate aortic regurgitation and mild tricuspid regurgitation. Lexiscan stress test reported reversible ischemia involving lateral wall. 11/13/2024 evaluated by PT secondary to weakness, multiple falls, recommending inpatient rehab./Subacute rehab. Patient cooperative and eager for inpatient rehab facilitation. Patient is in dire need of inpatient rehabilitation to increase his strength, functional mobility. Denies chest pain, palpitations or shortness of breath. Ambulating to chair with assistance, tolerated exertion well. Denies lightheadedness dizziness or focal deficits. Maintained on rejection medication regimen. GFR worsened, today, 46. Receiving gentle IV fluid hydration. Bladder scan pending. Vital signs stable. 11/14/2024 no overnight events. Denies chest pain, palpitations or shortness of breath. Maintaining O2 sats in the mid 90s on 2 L nasal cannula O2. Afebrile, hemodynamically stable. Magnesium 1.6. GFR increased to 55 today. Blood sugars better controlled today. Weakness has progressed with recent multiple hospitallizations. Motivated and cooperative with daily PT. [facility]. evaluated and accepted patient. Insurance authorization pending. 11/15/24 Complains of increased back pain that he relates to hospital bed, did not sleep well last night,accompanied by mild delirium, which has subsided this morning. Afebrile. Denies chest pain, palpitations or increased shortness of breath. Maintaining O2 sats in the mid to high 90s on 2 L nasal cannula. BMP pending. Patient expresses eagerness to regain his strength, balance ,endurance. Good diet intake. Denies nausea, vomiting or diarrhea. Denies abdominal pain. Bowel movement yesterday afternoon. 11/20/2024 complains of chronic back pain, ambulating with walker with PT supervision. Denies lightheadedness dizziness or focal deficits .blood sugars better controlled. Denies chest pain, palpitations or shortness of breath. Maintaining O2 sats in the high 90s on room air. Insurance Auth with carveout pending for subacute rehab. 11/21/2024 Patient is seen and evaluated in follow-up currently continues to await insurance authorization for subacute rehab at [facility]. Blood sugars are elevated and will adjust long-acting and recommend to monitor Accu-Cheks AC and at bedtime. Patient denies any chest pain, shortness of breath, or palpitations. Patient is progressively becoming more weak and has had frequent hospitalizations over the last few weeks with recent sepsis and hospitalization for persistent bacteremia and urinary tract infection due to ESBL E. coli. Patient would benefit from ECF for continued strength and mobility as he lives with his at home and they are elderly with concerns of a safe discharge plan. Social work is following and insurance authorization remains pending at this time. Review of systems: Constitutional: No reports of fatigue, fever, or chills Cardiovascular: No reports of chest pain or palpitations Respiratory: No reports of shortness of breath or cough GI: No reports of nausea, vomiting, or diarrhea : No reports of dysuria or retention Neurovascular: No reports of weakness or numbness All medications have been reviewed Physical exam: Gen: This is a 84-year-old male who is awake, alert and oriented x 2-3, baseline, well-developed, elderly appearing, obese HEENT: Head is atraumatic, normocephalic. Pupils equal, round. Sclerae is anicteric. NECK: Supple. No JVD. No lymphadenopathy. No thyromegaly. LUNGS: Diminished breath sounds bilaterally otherwise clear to auscultation. No wheezes or rhonchi. No intercostal retractions. HEART: S1, S2 are muffled ABDOMEN: Soft. Bowel sounds are present. No masses. No tenderness. EXTREMITIES: No pedal edema. No calf tenderness. NEUROLOGICAL: Patient is awake, alert and oriented x2-3. Cranial nerves 2 through 12 are grossly intact. Diffusely weak Assessment: Sarcopenia secondary to multiple falls, recurrent due to medical debility with recent sepsis with acute bacteremia with ESBL E. coli related to urinary tract infection with ESBL Acute on chronic back pain with history of degenerative disc disease Progressive weakness with generalized gait dysfunction and recurrent falls, likely secondary to multiple hospitalizations with recent sepsis History of recent sepsis due to ESBL E. coli with bacteremia Hypomagnesemia, improved after replacement Abnormal troponins, Carey scan showing reversible ischemia involving the lateral wall cardiology recommend maximizing medical management and holding off anticoagulation at this time secondary to recurrent falls and will need outpatient follow-up with possible watchman's device History of persistent atrial fibrillation with a slow ventricular rate, per cardiology no pacemaker implantation recommended at this time History of coronary artery disease with previous CABG Chronic CHF diastolic dysfunction, not in exacerbation Altered mental status with hallucinations secondary to acute metabolic encephalopathy, improved and at baseline History of anxiety diabetes mellitus, type II uncontrolled with hyperglycemia Chronic kidney disease stage IIIa History of renal transplant on chronic immunosuppression regimen Idiopathic thrombocytopenia purpura follows with hematology outpatient Hyperlipidemia history History of hypertension Obesity with a BMI of 30.4 GI prophylaxis DVT prophylaxis Full code Plan: Patient is a patient of Dr. Rosenberg and we are currently covering and social work is following currently awaiting insurance authorization with [employer] due to some of his medications being extremely expensive and awaiting authorization from insurance company at this time. Patient has been accepted at [facility] pending authorization. Patient has had frequent falls with recurrent hospitalizations and progressive weakness with clinical decline and would benefit greatly from ECF for continued strength and mobility at the bedside with questions and concerns that were answered to the best of our ability Recommend PT/OT therapy daily Blood sugars have been elevated and will adjust insulins accordingly including long-acting recommend to continue with Accu-Cheks AC and at bedtime Follow-up on repeat labs and replace electrolytes per protocol Will await insurance authorization and determination with possible discharge planning to ECF in the next 24 to 48 hours. The impression and plan of care has been dictated by Megan Sinha, Nurse Practitioner as directed. Dr. Kirtsen MD I have performed a history and examination and MDM of this patient, discussed the same with the dictator, and agree with the dictator's assessment and plan as written ,documented as a scribe. Based on total visit time, I have performed more than 50% of the visit. Objective - Vital Signs Vital signs: Vital Signs Temp 98.2 F 11/21/24 07:05 Pulse 72 11/21/24 07:05 Resp 15 11/21/24 07:05 BP 153/80 11/21/24 07:05 Pulse Ox 93 L 11/21/24 07:05 FiO2 Intake & Output 11/20/24 11/21/24 11/21/24 18:59 06:59 18:59 Intake Total 100 Output Total 200 Balance 100 -200 Intake: Oral 100 Output: Urine 200 Other: Voiding Method Toilet Diaper # Voids 1 - Labs CBC & Chem 7: 11/18/24 04:24 11/20/24 04:51 Labs: Abnormal Lab Results - Last 24 Hours (Table) 11/20/24 11/20/24 11/20/24 Range/Units 12:44 17:57 20:52 POC Glucose (mg/dL) 224 H 321 H 297 H (70-110) mg/dL 11/21/24 Range/Units 05:45 POC Glucose (mg/dL) 219 H (70-110) mg/dL
[2024-11-21] MEDS: INSULIN GLARGINE (LANTUS) 100 UNIT/ML SYR SQ SCH (20:44)
[2024-11-22 05:59] LABS: Glucose,Whole Blood 177 mg/dL (70-110)
[2024-11-22 08:05] LABS: Glucose,Whole Blood 146 mg/dL (70-110)
[2024-11-22 11:57] LABS: Glucose,Whole Blood 209 mg/dL (70-110)
[2024-11-22 16:51] LABS: Glucose,Whole Blood 254 mg/dL (70-110)
--- NOTE | 2024-11-22 17:37 | P.PN ---
Subjective Patient is seen for follow-up for posttransplant care Renal function has been stable. Serum creatinine 1.1 today. No significant complaints today. Awaiting authorization for rehab. Objective - Vital Signs Vital signs: Vital Signs Temp 98.4 F 11/22/24 14:00 Pulse 60 11/22/24 14:00 Resp 17 11/22/24 14:00 BP 129/66 11/22/24 14:00 Pulse Ox 96 11/22/24 14:00 FiO2 Intake & Output 11/21/24 11/22/24 11/22/24 18:59 06:59 18:59 Intake Total 354 240 240 Balance 354 240 240 Intake: Oral 354 240 240 Other: Voiding Method Toilet Toilet Diaper Diaper # Voids 2 2 - Exam Patient is awake, comfortable, no acute distress Examination of the heart S1 and S2 Examination of the lungs bilateral breath sounds are heard Abdomen is soft nontender Examination of lower extremities shows no significant edema 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 Status post donor renal transplant in 2002. 2. 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 3. Generalized weakness and falls. Awaiting discharge to rehab. 4. Recent E. coli bacteremia and UTI status post antibiotics. 5. Hypertension with chronic kidney disease. Stable. 6. Chronic diastolic CHF with moderate aortic stenosis., Stable Plan: Continue current immunosuppressive medications Advised to maintain good oral intake. Check renal profile periodically.
--- NOTE | 2024-11-22 17:39 | P.PN ---
Subjective Patient is seen for follow-up for posttransplant care Renal function has been stable. Serum creatinine 1.1 on 11/20/2024 No significant complaints today. Awaiting authorization for rehab. Objective - Vital Signs Vital signs: Vital Signs Temp 98.4 F 11/22/24 14:00 Pulse 60 11/22/24 14:00 Resp 17 11/22/24 14:00 BP 129/66 11/22/24 14:00 Pulse Ox 96 11/22/24 14:00 FiO2 Intake & Output 11/21/24 11/22/24 11/22/24 18:59 06:59 18:59 Intake Total 354 240 240 Balance 354 240 240 Intake: Oral 354 240 240 Other: Voiding Method Toilet Toilet Diaper Diaper # Voids 2 2 - Exam Patient is awake, comfortable, no acute distress Examination of the heart S1 and S2 Examination of the lungs bilateral breath sounds are heard Abdomen is soft nontender Examination of lower extremities shows no significant edema 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 Status post donor renal transplant in 2002. Tacrolimus level 7.7 on 11/13/2024 2. 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 3. Generalized weakness and falls. Awaiting discharge to rehab. 4. Recent E. coli bacteremia and UTI status post antibiotics. 5. Hypertension with chronic kidney disease. Stable. 6. Chronic diastolic CHF with moderate aortic stenosis., Stable Plan: Continue current immunosuppressive medications Advised to maintain good oral intake. Check renal profile periodically. Repeat Prograf level in a.m. and consider decreasing dose if level is higher.
[2024-11-22 19:44] LABS: Glucose,Whole Blood 225 mg/dL (70-110)
--- NOTE | 2024-11-23 05:54 | P.PN ---
Subjective Progress Note Date: 11/22/24 Patient is a 84-year-old male with a past medical history of coronary artery disease status post CABG, atrial fibrillation not on anticoagulation due to ITP, history of renal transplant on immunosuppressive therapy, CKD stage III yea, hypertension, hyperlipidemia, diabetes type 2 insulin-dependent, hypothyroidism, osteoarthritis, anxiety/depression.Patient was brought to the hospital due to frequent falls. According to his at bedside patient fell about 4 times and 3 times she was able to get up and he felt very weak and could not get up himself for for the time. He has been having generalized weakness. He was also being confused and delirious could not sleep overnight. Patient had recent hospitalization for UTI and sepsis. He was discharged on 11/06/2024. He was found to have ESBL E. coli urinary tract infection and was discharged after completing Invanz for 10-day course. 11/12/2024 patient continues to display generalized weakness, difficulty with balance-continued to have falls at home.PT evaluation pending. Consult for [facility] inpatient rehab in place. Patient was actually accepted last week at [facility] inpatient rehab but patient's insurance company would not give authorization. Denies chest pain, palpitations or shortness of breath. Echo reported EF of 55 to 60% mild to moderate mitral regurgitation, moderate aortic stenosis, mild to moderate aortic regurgitation and mild tricuspid regurgitation. Lexiscan stress test reported reversible ischemia involving lateral wall. 11/13/2024 evaluated by PT secondary to weakness, multiple falls, recommending inpatient rehab./Subacute rehab. Patient cooperative and eager for inpatient rehab facilitation. Patient is in dire need of inpatient rehabilitation to increase his strength, functional mobility. Denies chest pain, palpitations or shortness of breath. Ambulating to chair with assistance, tolerated exertion well. Denies lightheadedness dizziness or focal deficits. Maintained on rejection medication regimen. GFR worsened, today, 46. Receiving gentle IV fluid hydration. Bladder scan pending. Vital signs stable. 11/14/2024 no overnight events. Denies chest pain, palpitations or shortness of breath. Maintaining O2 sats in the mid 90s on 2 L nasal cannula O2. Afebrile, hemodynamically stable. Magnesium 1.6. GFR increased to 55 today. Blood sugars better controlled today. Weakness has progressed with recent multiple hospitallizations. Motivated and cooperative with daily PT. [facility]. evaluated and accepted patient. Insurance authorization pending. 11/15/24 Complains of increased back pain that he relates to hospital bed, did not sleep well last night,accompanied by mild delirium, which has subsided this morning. Afebrile. Denies chest pain, palpitations or increased shortness of breath. Maintaining O2 sats in the mid to high 90s on 2 L nasal cannula. BMP pending. Patient expresses eagerness to regain his strength, balance ,endurance. Good diet intake. Denies nausea, vomiting or diarrhea. Denies abdominal pain. Bowel movement yesterday afternoon. 11/20/2024 complains of chronic back pain, ambulating with walker with PT supervision. Denies lightheadedness dizziness or focal deficits .blood sugars better controlled. Denies chest pain, palpitations or shortness of breath. Maintaining O2 sats in the high 90s on room air. Insurance Auth with carveout pending for subacute rehab. 11/21/2024 Patient is seen and evaluated in follow-up currently continues to await insurance authorization for subacute rehab at [facility]. Blood sugars are elevated and will adjust long-acting and recommend to monitor Accu-Cheks AC and at bedtime. Patient denies any chest pain, shortness of breath, or palpitations. Patient is progressively becoming more weak and has had frequent hospitalizations over the last few weeks with recent sepsis and hospitalization for persistent bacteremia and urinary tract infection due to ESBL E. coli. Patient would benefit from ECF for continued strength and mobility as he lives with his at home and they are elderly with concerns of a safe discharge plan. Social work is following and insurance authorization remains pending at this time. 11/22/2024 Patient is seen in follow-up this morning currently sleeping although arousable continuing to await for insurance authorization. Patient blood sugars remain slightly elevated and will continue to adjust insulins accordingly.. Nephrology following as patient takes Prograf for history of kidney transplant and will follow-up on repeat labs and monitor kidney functions as well. Encouraged increase activity as tolerated with sitting up in the chair more frequently. [facility] liaison to be contacting insurance regarding authorization. Review of systems: Constitutional: No reports of fatigue, fever, or chills Cardiovascular: No reports of chest pain or palpitations Respiratory: No reports of shortness of breath or cough GI: No reports of nausea, vomiting, or diarrhea : No reports of dysuria or retention Neurovascular: reports of generalized weakness and difficulty ambulating All medications have been reviewed Physical exam: Gen: This is a 84-year-old male who is asleep although arousable, alert and oriented x 2-3, baseline, well-developed, elderly appearing, obese HEENT: Head is atraumatic, normocephalic. Pupils equal, round. Sclerae is anicteric. NECK: Supple. No JVD. No lymphadenopathy. No thyromegaly. LUNGS: Diminished breath sounds bilaterally otherwise clear to auscultation. No wheezes or rhonchi. No intercostal retractions. HEART: S1, S2 are muffled ABDOMEN: Soft. Bowel sounds are present. No masses. No tenderness. EXTREMITIES: No pedal edema. No calf tenderness. NEUROLOGICAL: Patient is awake, alert and oriented x2-3. Cranial nerves 2 through 12 are grossly intact. Diffusely weak Assessment: Sarcopenia secondary to multiple falls, recurrent due to medical debility with recent sepsis with acute bacteremia with ESBL E. coli related to urinary tract infection with ESBL Acute on chronic back pain with history of degenerative disc disease Progressive weakness with generalized gait dysfunction and recurrent falls, likely secondary to multiple hospitalizations with recent sepsis History of recent sepsis due to ESBL E. coli with bacteremia Hypomagnesemia, improved after replacement Abnormal troponins, Carey scan showing reversible ischemia involving the lateral wall cardiology recommend maximizing medical management and holding off anticoagulation at this time secondary to recurrent falls and will need outpatient follow-up with possible watchman's device History of persistent atrial fibrillation with a slow ventricular rate, per cardiology no pacemaker implantation recommended at this time History of coronary artery disease with previous CABG Chronic CHF diastolic dysfunction, not in exacerbation Altered mental status with hallucinations secondary to acute metabolic enc ephalopathy, improved and at baseline History of anxiety diabetes mellitus, type II uncontrolled with hyperglycemia Chronic kidney disease stage IIIa History of renal transplant on chronic immunosuppression regimen Idiopathic thrombocytopenia purpura follows with hematology outpatient Hyperlipidemia history History of hypertension Obesity with a BMI of 30.4 GI prophylaxis DVT prophylaxis Full code Plan: Patient is a patient of Dr. Rosenberg and we are currently covering and social work is following currently awaiting insurance authorization with [employer] due to some of his medications being extremely expensive and awaiting authorization from insurance [employer] at this time. Patient has been accepted at [facility] pending authorization. Patient has had frequent falls with recurrent hospitalizations and progressive weakness with clinical decline and would benefit greatly from ECF for continued strength and mobility at the bedside with questions and concerns that were answered to the best of our ability Recommend PT/OT therapy daily as patient is significantly weak Nephrology following and will follow-up on repeat labs, monitor kidney functions closely and also Prograf level Blood sugars have been elevated and will adjust insulins accordingly including long-acting recommend to continue with Accu-Cheks AC and at bedtime Follow-up on repeat labs and replace electrolytes per protocol Continuing to await insurance authorization and determination with possible discharge planning to ECF in the next 24 to 48 hours. The impression and plan of care has been dictated by Megan Sinha, Nurse Practitioner as directed. Dr. Kirsten MD I have performed a history and examination and MDM of this patient, discussed the same with the dictator, and agree with the dictator's assessment and plan as written ,documented as a scribe. Based on total visit time, I have performed more than 50% of the visit. Objective - Vital Signs Vital signs: Vital Signs Temp 97.4 F L 11/23/24 01:51 Pulse 64 11/23/24 01:51 Resp 17 11/22/24 14:00 BP 112/58 11/23/24 01:51 Pulse Ox 96 11/23/24 01:51 FiO2 Intake & Output 11/22/24 11/22/24 11/23/24 06:59 18:59 06:59 Intake Total 240 240 Balance 240 240 Intake: Oral 240 240 Other: Voiding Method Toilet Toilet Diaper Diaper # Voids 2 4 2 - Labs CBC & Chem 7: 11/18/24 04:24 11/20/24 04:51 Labs: Abnormal Lab Results - Last 24 Hours (Table) 11/22/24 11/22/24 11/22/24 Range/Units 05:58 08:03 11:55 POC Glucose (mg/dL) 177 H 146 H 209 H (70-110) mg/dL 11/22/24 11/22/24 Range/Units 16:49 19:42 POC Glucose (mg/dL) 254 H 225 H (70-110) mg/dL
[2024-11-23 05:59] LABS: Glucose,Whole Blood 154 mg/dL (70-110)
[2024-11-23] MEDS: INSULIN GLARGINE (LANTUS) 100 UNIT/ML SYR SQ SCH (08:59)
[2024-11-23 10:16] LABS: HCT 35.5 % (39.6-50.0); HGB 11.2 g/dL (13.0-17.0); MCH 28.4 pg (27.0-32.0); MCHC 31.5 g/dL (32.0-37.0); MCV 90.1 FL (80.0-97.0); NRBC Per 100 WBC 0 X 10*3/uL (0.00-0.01); Platelet Count 89 X 10*3/uL (140-440); RBC 3.94 X 10*6/uL (4.40-5.60); RDW 15.5 % (11.5-14.5); WBC 7.14 X 10*3/uL (4.50-10.00)
[2024-11-23 10:17] LABS: Basophils # (A) 0.06 X 10*3/uL (0.00-0.10); Basophils % (A) 0.8 %; Eosinophils # (A) 0.38 X 10*3/uL (0.04-0.35); Eosinophils % (A) 5.3 %; Lymphocytes # (A) 1.58 X 10*3/uL (0.90-5.00); Lymphocytes % (A) 22.1 %; Monocytes # (A) 0.64 X 10*3/uL (0.20-1.00); Neutrophils # (A) 4.41 X 10*3/uL (1.80-7.70); Neutrophils % (A) 61.8 %
[2024-11-23 10:24] LABS: Blood Urea Nitrogen 25.8 mg/dL (9.0-27.0); Calcium 8.7 mg/dL (8.7-10.3); Carbon Dioxide 24.6 mmol/L (21.6-31.8); Chloride 104 mmol/L (96-109); Glucose 170 mg/dL (70-110); Magnesium 1.7 mg/dL (1.5-2.4); Potassium 4.3 mmol/L (3.5-5.5); Sodium 140 mmol/L (135-145)
[2024-11-23 12:14] LABS: Glucose,Whole Blood 211 mg/dL (70-110)
--- NOTE | 2024-11-23 16:12 | P.PN ---
Subjective Progress Note Date: 11/23/24 Patient is seen for follow-up for posttransplant care Renal function has been stable at baseline. No new complaints. Patient is awake, comfortable, no acute distress Examination of the heart S1 and S2 Examination of the lungs bilateral breath sounds are heard Abdomen is soft nontender Examination of lower extremities shows no significant edema STEP DOWN NURSE exam grossly intact Objective - Vital Signs Vital signs: Vital Signs Temp 97.6 F 11/23/24 14:00 Pulse 59 L 11/23/24 14:00 Resp 16 11/23/24 14:00 BP 133/68 11/23/24 14:00 Pulse Ox 96 11/23/24 14:00 FiO2 Intake & Output 11/22/24 11/23/24 11/23/24 18:59 06:59 18:59 Intake Total 240 118 Balance 240 118 Intake: Oral 240 118 Other: Voiding Method Toilet Diaper # Voids 4 2 - Labs CBC & Chem 7: 11/23/24 06:02 11/23/24 06:02 Labs: Abnormal Lab Results - Last 24 Hours (Table) 11/22/24 11/22/24 11/23/24 Range/Units 16:49 19:42 05:58 RBC (4.40-5.60) X 10*6/uL Hgb (13.0-17.0) g/dL Hct (39.6-50.0) % MCHC (32.0-37.0) g/dL RDW (11.5-14.5) % Plt Count (140-440) X 10*3/uL Immature Gran # (0.00-0.04) X 10*3/uL Eosinophils # (0.04-0.35) X 10*3/uL BUN/Creatinine Ratio (12.00-20.00) Ratio Glucose (70-110) mg/dL POC Glucose (mg/dL) 254 H 225 H 154 H (70-110) mg/dL 11/23/24 11/23/24 11/23/24 Range/Units 06:02 06:02 12:12 RBC 3.94 L (4.40-5.60) X 10*6/uL Hgb 11.2 L (13.0-17.0) g/dL Hct 35.5 L (39.6-50.0) % MCHC 31.5 L (32.0-37.0) g/dL RDW 15.5 H (11.5-14.5) % Plt Count 89 L (140-440) X 10*3/uL Immature Gran # 0.07 H (0.00-0.04) X 10*3/uL Eosinophils # 0.38 H (0.04-0.35) X 10*3/uL BUN/Creatinine Ratio 21.50 H (12.00-20.00) Ratio Glucose 170 H (70-110) mg/dL POC Glucose (mg/dL) 211 H (70-110) mg/dL Assessment and Plan Assessment: 1. Status post donor renal transplant in 2002. Tacrolimus level 7.7 on 11/13/2024 2. 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 3. Generalized weakness and falls. Awaiting discharge to rehab. 4. Recent E. coli bacteremia and UTI status post antibiotics. 5. Hypertension with chronic kidney disease. Stable. 6. Chronic diastolic CHF with moderate aortic stenosis., Stable Plan: Continue current immunosuppressive medications Advised to maintain good oral intake. Check renal profile periodically.
[2024-11-23] MEDS ORDERED: Magnesium Replacement Protocol 1 EACH MISC MISCELLANE PRN (16:24)
--- NOTE | 2024-11-23 16:25 | P.PN ---
Subjective Progress Note Date: 11/23/24 Patient is a 84-year-old male with a past medical history of coronary artery disease status post CABG, atrial fibrillation not on anticoagulation due to ITP, history of renal transplant on immunosuppressive therapy, CKD stage III yea, hypertension, hyperlipidemia, diabetes type 2 insulin-dependent, hypothyroidism, osteoarthritis, anxiety/depression.Patient was brought to the hospital due to frequent falls. According to his at bedside patient fell about 4 times and 3 times she was able to get up and he felt very weak and could not get up himself for for the time. He has been having generalized weakness. He was also being confused and delirious could not sleep overnight. Patient had recent h ospitalization for UTI and sepsis. He was discharged on 11/06/2024. He was found to have ESBL E. coli urinary tract infection and was discharged after completing Invanz for 10-day course. 11/12/2024 patient continues to display generalized weakness, difficulty with balance-continued to have falls at home.PT evaluation pending. Consult for [facility] inpatient rehab in place. Patient was actually accepted last week at [facility] inpatient rehab but patient's insurance company would not give authorization. Denies chest pain, palpitations or shortness of breath. Echo reported EF of 55 to 60% mild to moderate mitral regurgitation, moderate aortic stenosis, mild to moderate aortic regurgitation and mild tricuspid regurgitation. Lexiscan stress test reported reversible ischemia involving lateral wall. 11/13/2024 evaluated by PT secondary to weakness, multiple falls, recommending inpatient rehab./Subacute rehab. Patient cooperative and eager for inpatient rehab facilitation. Patient is in dire need of inpatient rehabilitation to increase his strength, functional mobility. Denies chest pain, palpitations or shortness of breath. Ambulating to chair with assistance, tolerated exertion well. Denies lightheadedness dizziness or focal deficits. Maintained on rej ection medication regimen. GFR worsened, today, 46. Receiving gentle IV fluid hydration. Bladder scan pending. Vital signs stable. 11/14/2024 no overnight events. Denies chest pain, palpitations or shortness of breath. Maintaining O2 sats in the mid 90s on 2 L nasal cannula O2. Afebrile, hemodynamically stable. Magnesium 1.6. GFR increased to 55 today. Blood sugars better controlled today. Weakness has progressed with recent multiple hospitallizations. Motivated and cooperative with daily PT. [facility]. evaluated and accepted patient. Insurance authorization pending. 11/15/24 Complains of increased back pain that he relates to hospital bed, did not sleep well last night,accompanied by mild delirium, which has subsided this morning. Afebrile. Denies chest pain, palpitations or increased shortness of breath. Maintaining O2 sats in the mid to high 90s on 2 L nasal cannula. BMP pending. Patient expresses eagerness to regain his strength, balance ,endurance. Good diet intake. Denies nausea, vomiting or diarrhea. Denies abdominal pain. Bowel movement yesterday afternoon. 11/20/2024 complains of chronic back pain, ambulating with walker with PT supervision. Denies lightheadedness dizziness or focal deficits .blood sugars better controlled. Denies chest pain, palpitations or shortness of breath. Maintaining O2 sats in the high 90s on room air. Insurance Auth with carveout pending for subacute rehab. 11/21/2024 Patient is seen and evaluated in follow-up currently continues to await insurance authorization for subacute rehab at [facility]. Blood sugars are elevated and will adjust long-acting and recommend to monitor Accu-Cheks AC and at bedtime. Patient denies any chest pain, shortness of breath, or palpitations. Patient is progressively becoming more weak and has had frequent hospitalizations over the last few weeks with recent sepsis and hospitalization for persistent bacteremia and urinary tract infection due to ESBL E. coli. Patient would benefit from ECF for continued strength and mobility as he lives with his at home and they are elderly with concerns of a safe discharge plan. Social work is following and insurance authorization remains pending at this time. 11/22/2024 Patient is seen in follow-up this morning currently sleeping although arousable continuing to await for insurance authorization. Patient blood sugars remain slightly elevated and will continue to adjust insulins accordingly.. Nephrology following as patient takes Prograf for history of kidney transplant and will follow-up on repeat labs and monitor kidney functions as well. Encouraged increase activity as tolerated with sitting up in the chair more frequently. [facility] liaison to be contacting insurance regarding authorization. 11/23/2024 Patient is eval today in follow with the medical floor. He continues to await i nsurance authorization. He is more awake alert and oriented today. He is getting frustrated as he has had to stay in the hospital for multiple days pending rehab authorization. His follow-up blood work today reveals a white blood cell count of 7.14, hemoglobin 11.2, platelet count of 89, sodium of 140 potassium 4.3, BUN of 25.8, creatinine of 1.2. Magnesium 1.7. His blood sugars are better controlled. Review of systems: Constitutional: No reports of fatigue, fever, or chills Cardiovascular: No reports of chest pain or palpitations Respiratory: No reports of shortness of breath or cough GI: No reports of nausea, vomiting, or diarrhea : No reports of dysuria or retention Neurovascular: reports of generalized weakness and difficulty ambulating All medications have been reviewed Physical exam: Gen: This is a 84-year-old male who is asleep although arousable, alert and oriented x 2-3, baseline, well-developed, elderly appearing, obese HEENT: Head is atraumatic, normocephalic. Pupils equal, round. Sclerae is anicteric. NECK: Supple. No JVD. No lymphadenopathy. No thyromegaly. LUNGS: Diminished breath sounds bilaterally otherwise clear to auscultation. No wheezes or rhonchi. No intercostal retractions. HEART: S1, S2 are muffled ABDOMEN: Soft. Bowel sounds are present. No masses. No tenderness. EXTREMITIES: No pedal edema. No calf tenderness. NEUROLOGICAL: Patient is awake, alert and oriented x2-3. Cranial nerves 2 through 12 are grossly intact. Diffusely weak Assessment: Sarcopenia secondary to multiple falls, recurrent due to medical debility with recent sepsis with acute bacteremia with ESBL E. coli related to urinary tract infection with ESBL Acute on chronic back pain with history of degenerative disc disease Progressive weakness with generalized gait dysfunction and recurrent falls, likely secondary to multiple hospitalizations with recent sepsis History of recent sepsis due to ESBL E. coli with bacteremia Hypomagnesemia, improved after replacement Abnormal troponins, Carey scan showing reversible ischemia involving the lateral wall cardiology recommend maximizing medical management and holding off anticoagulation at this time secondary to recurrent falls and will need outpatient follow-up with possible watchman's device History of persistent atrial fibrillation with a slow ventricular rate, per cardiology no pacemaker implantation recommended at this time History of coronary artery disease with previous CABG Chronic CHF diastolic dysfunction, not in exacerbation Altered mental status with hallucinations secondary to acute metabolic ence phalopathy, improved and at baseline History of anxiety diabetes mellitus, type II uncontrolled with hyperglycemia Chronic kidney disease stage IIIa History of renal transplant on chronic immunosuppression regimen Idiopathic thrombocytopenia purpura follows with hematology outpatient Hyperlipidemia history History of hypertension Obesity with a BMI of 30.4 GI prophylaxis DVT prophylaxis Full code Plan: Patient is a patient of Dr. Rosenberg and we are currently covering and social work is following currently awaiting insurance authorization with [employer] due to some of his medications being extremely expensive and awaiting authorization from insurance company at this time. Patient has been accepted at [facility] pending authorization. Patient has had frequent falls with recurrent hospitalizations and progressive weakness with clinical decline and would benefit greatly from ECF for continued strength and mobility at the bedside with questions and concerns that were answered to the best of our ability Recommend PT/OT therapy daily as patient is significantly weak Nephrology following and will follow-up on repeat labs, monitor kidney functions closely and also Prograf level Blood sugars have been elevated and will adjust insulins accordingly including long-acting recommend to continue with Accu-Cheks AC and at bedtime Follow-up on repeat labs and replace electrolytes per protocol Continuing to await insurance authorization and determination with possible discharge planning to ECF in the next 24 to 48 hours. The impression and plan of care has been dictated by Mary Vo, Nurse Practitioner as directed. Dr. Kirsten MD I have performed a history and examination and MDM of this patient, discussed the same with the dictator, and agree with the dictator's assessment and plan as written ,documented as a scribe. Based on total visit time, I have performed more than 50% of the visit. Objective - Vital Signs Vital signs: Vital Signs Temp 97.6 F 11/23/24 14:00 Pulse 59 L 11/23/24 14:00 Resp 16 11/23/24 14:00 BP 133/68 11/23/24 14:00 Pulse Ox 96 11/23/24 14:00 FiO2 Intake & Output 11/22/24 11/23/24 11/23/24 18:59 06:59 18:59 Intake Total 240 118 Balance 240 118 Intake: Oral 240 118 Other: Voiding Method Toilet Diaper # Voids 4 2 - Labs CBC & Chem 7: 11/23/24 06:02 11/23/24 06:02 Labs: Abnormal Lab Results - Last 24 Hours (Table) 11/22/24 11/22/24 11/23/24 Range/Units 16:49 19:42 05:58 RBC (4.40-5.60) X 10*6/uL Hgb (13.0-17.0) g/dL Hct (39.6-50.0) % MCHC (32.0-37.0) g/dL RDW (11.5-14.5) % Plt Count (140-440) X 10*3/uL Immature Gran # (0.00-0.04) X 10*3/uL Eosinophils # (0.04-0.35) X 10*3/uL BUN/Creatinine Ratio (12.00-20.00) Ratio Glucose (70-110) mg/dL POC Glucose (mg/dL) 254 H 225 H 154 H (70-110) mg/dL 11/23/24 11/23/24 11/23/24 Range/Units 06:02 06:02 12:12 RBC 3.94 L (4.40-5.60) X 10*6/uL Hgb 11.2 L (13.0-17.0) g/dL Hct 35.5 L (39.6-50.0) % MCHC 31.5 L (32.0-37.0) g/dL RDW 15.5 H (11.5-14.5) % Plt Count 89 L (140-440) X 10*3/uL Immature Gran # 0.07 H (0.00-0.04) X 10*3/uL Eosinophils # 0.38 H (0.04-0.35) X 10*3/uL BUN/Creatinine Ratio 21.50 H (12.00-20.00) Ratio Glucose 170 H (70-110) mg/dL POC Glucose (mg/dL) 211 H (70-110) mg/dL Assessment and Plan Time with Patient: Less than 30
[2024-11-23] MEDS: MAGNESIUM SULFATE-D5W PMX 1 GM in DEXTROSE/WATER 1 100ML.BAG IVPB ONE (17:12)
[2024-11-23 17:17] LABS: Glucose,Whole Blood 225 mg/dL (70-110)
[2024-11-23 20:03] LABS: Glucose,Whole Blood 222 mg/dL (70-110)
[2024-11-24 06:07] LABS: Glucose,Whole Blood 171 mg/dL (70-110)
[2024-11-24 12:09] LABS: Glucose,Whole Blood 223 mg/dL (70-110)
--- NOTE | 2024-11-24 12:42 | P.PN ---
Subjective Progress Note Date: 11/24/24 Patient is seen for follow-up for posttransplant care Renal function has been stable at baseline. No new complaints. Patient is awake, comfortable, no acute distress Examination of the heart S1 and S2 Examination of the lungs bilateral breath sounds are heard Abdomen is soft nontender Examination of lower extremities shows no significant edema [employer] exam grossly intact Objective - Vital Signs Vital signs: Vital Signs Temp 97.5 F L 11/24/24 07:27 Pulse 57 L 11/24/24 07:27 Resp 16 11/24/24 07:27 BP 119/62 11/24/24 07:27 Pulse Ox 93 L 11/24/24 07:27 FiO2 Intake & Output 11/23/24 11/24/24 11/24/24 18:59 06:59 18:59 Intake Total 118 118 Balance 118 118 Intake: Oral 118 118 Other: # Voids 1 2 - Labs CBC & Chem 7: 11/23/24 06:02 11/23/24 06:02 Labs: Abnormal Lab Results - Last 24 Hours (Table) 11/23/24 11/23/24 11/23/24 Range/Units 12:12 17:16 20:02 POC Glucose (mg/dL) 211 H 225 H 222 H (70-110) mg/dL 11/24/24 Range/Units 06:06 POC Glucose (mg/dL) 171 H (70-110) mg/dL Assessment and Plan Assessment: 1. Status post donor renal transplant in 2002. Tacrolimus level 7.7 on 11/13/2024 2. 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 3. Generalized weakness and falls. Awaiting discharge to rehab. 4. Recent E. coli bacteremia and UTI status post antibiotics. 5. Hypertension with chronic kidney disease. Stable. 6. Chronic diastolic CHF with moderate aortic stenosis., Stable Plan: Continue current immunosuppressive medications Advised to maintain good oral intake. Check renal profile periodically.
--- NOTE | 2024-11-24 14:08 | P.PN ---
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 According to his at bedside patient fell about 4 times and 3 times she was able to get up and he felt very weak and could not get up himself for for the time. He has been having generalized weakness. He was also being confused and delirious could not sleep overnight. Patient had recent h ospitalization for UTI and sepsis. He was discharged on 11/06/2024. He was found to have ESBL E. coli urinary tract infection and was discharged after completing Invanz for 10-day course. 11/12/2024 patient continues to display generalized weakness, difficulty with balance-continued to have falls at home.PT evaluation pending. Consult for [facility] inpatient rehab in place. Patient was actually accepted last week at [facility] inpatient rehab but patient's insurance company would not give authorization. Denies chest pain, palpitations or shortness of breath. Echo reported EF of 55 to 60% mild to moderate mitral regurgitation, moderate aortic stenosis, mild to moderate aortic regurgitation and mild tricuspid regurgitation. Lexiscan stress test reported reversible ischemia involving lateral wall. 11/13/2024 evaluated by PT secondary to weakness, multiple falls, recommending inpatient rehab./Subacute rehab. Patient cooperative and eager for inpatient rehab facilitation. Patient is in dire need of inpatient rehabilitation to increase his strength, functional mobility. Denies chest pain, palpitations or shortness of breath. Ambulating to chair with assistance, tolerated exertion well. Denies lightheadedness dizziness or focal deficits. Maintained on rej ection medication regimen. GFR worsened, today, 46. Receiving gentle IV fluid hydration. Bladder scan pending. Vital signs stable. 11/14/2024 no overnight events. Denies chest pain, palpitations or shortness of breath. Maintaining O2 sats in the mid 90s on 2 L nasal cannula O2. Afebrile, hemodynamically stable. Magnesium 1.6. GFR increased to 55 today. Blood sugars better controlled today. Weakness has progressed with recent multiple hospitallizations. Motivated and cooperative with daily PT. [facility]. evaluated and accepted patient. Insurance authorization pending. 11/15/24 Complains of increased back pain that he relates to hospital bed, did not sleep well last night,accompanied by mild delirium, which has subsided this morning. Afebrile. Denies chest pain, palpitations or increased shortness of breath. Maintaining O2 sats in the mid to high 90s on 2 L nasal cannula. BMP pending. Patient expresses eagerness to regain his strength, balance ,endurance. Good diet intake. Denies nausea, vomiting or diarrhea. Denies abdominal pain. Bowel movement yesterday afternoon. 11/20/2024 complains of chronic back pain, ambulating with walker with PT supervision. Denies lightheadedness dizziness or focal deficits .blood sugars better controlled. Denies chest pain, palpitations or shortness of breath. Maintaining O2 sats in the high 90s on room air. Insurance Auth with carveout pending for subacute rehab. 11/21/2024 Patient is seen and evaluated in follow-up currently continues to await insurance authorization for subacute rehab at [facility]. Blood sugars are elevated and will adjust long-acting and recommend to monitor Accu-Cheks AC and at bedtime. Patient denies any chest pain, shortness of breath, or palpitations. Patient is progressively becoming more weak and has had frequent hospitalizations over the last few weeks with recent sepsis and hospitalization for persistent bacteremia and urinary tract infection due to ESBL E. coli. Patient would benefit from ECF for continued strength and mobility as he lives with his at home and they are elderly with concerns of a safe discharge plan. Social work is following and insurance authorization remains pending at this time. 11/22/2024 Patient is seen in follow-up this morning currently sleeping although arousable continuing to await for insurance authorization. Patient blood sugars remain slightly elevated and will continue to adjust insulins accordingly.. Nephrology following as patient takes Prograf for history of kidney transplant and will follow-up on repeat labs and monitor kidney functions as well. Encouraged increase activity as tolerated with sitting up in the chair more frequently. [facility] liaison to be contacting insurance regarding authorization. 11/23/2024 Patient is eval today in follow with the medical floor. He continues to await i nsurance authorization. He is more awake alert and oriented today. He is getting frustrated as he has had to stay in the hospital for multiple days pending rehab authorization. His follow-up blood work today reveals a white blood cell count of 7.14, hemoglobin 11.2, platelet count of 89, sodium of 140 potassium 4.3, BUN of 25.8, creatinine of 1.2. Magnesium 1.7. His blood sugars are better controlled. 11/24/2024 Patient evaluated today on medical floor. No acute complaints. he is currently pending insurance authorization for rehab and has had a prolonged hospital stay because of that. He is frustrated and feels this has been a waste of time. Social work back on Monday to follow up. Review of systems: Constitutional: No reports of fatigue, fever, or chills Cardiovascular: No reports of chest pain or palpitations Respiratory: No reports of shortness of breath or cough GI: No reports of nausea, vomiting, or diarrhea : No reports of dysuria or retention Neurovascular: reports of generalized weakness and difficulty ambulating All medications have been reviewed Physical exam: Gen: This is a 84-year-old male who is asleep although arousable, alert and oriented x 2-3, baseline, well-developed, elderly appearing, obese HEENT: Head is atraumatic, normocephalic. Pupils equal, round. Sclerae is anicteric. NECK: Supple. No JVD. No lymphadenopathy. No thyromegaly. LUNGS: Diminished breath sounds bilaterally otherwise clear to auscultation. No wheezes or rhonchi. No intercostal retractions. HEART: S1, S2 are muffled ABDOMEN: Soft. Bowel sounds are present. No masses. No tenderness. EXTREMITIES: No pedal edema. No calf tenderness. NEUROLOGICAL: Patient is awake, alert and oriented x2-3. Cranial nerves 2 through 12 are grossly intact. Diffusely weak Assessment: Sarcopenia secondary to multiple falls, recurrent due to medical debility with recent sepsis with acute bacteremia with ESBL E. coli related to urinary tract infection with ESBL Acute on chronic back pain with history of degenerative disc disease Progressive weakness with generalized gait dysfunction and recurrent falls, likely secondary to multiple hospitalizations with recent sepsis History of recent sepsis due to ESBL E. coli with bacteremia Hypomagnesemia, improved after replacement Abnormal troponins, Carey scan showing reversible ischemia involving the lateral wall cardiology recommend maximizing medical management and holding off anticoagulation at this time secondary to recurrent falls and will need outpatient follow-up with possible watchman's device History of persistent atrial fibrillation with a slow ventricular rate, per cardiology no pacemaker implantation recommended at this time History of coronary artery disease with previous CABG Chronic CHF diastolic dysfunction, not in exacerbation Altered mental status with hallucinations secondary to acute metabolic encephalopathy, improved and at baseline History of anxiety diabetes mellitus, type II uncontrolled with hyperglycemia Chronic kidney disease stage IIIa History of renal transplant on chronic immunosuppression regimen Idiopathic thrombocytopenia purpura follows with hematology outpatient Hyperlipidemia history History of hypertension Obesity with a BMI of 30.4 GI prophylaxis DVT prophylaxis Full code Plan: Patient is a patient of Dr. Rosenberg and we are currently covering and social work is following currently awaiting insurance authorization with [employer] due to some of his medications being extremely expensive and awaiting authorization from insurance company at this time. Patient has been accepted at [facility] pending authorization. Patient has had frequent falls with recurrent hospitalizations and progressive weakness with clinical decline and would benefit greatly from ECF for continued strength and mobility at the bedside with questions and concerns that were answered to the best of our ability Recommend PT/OT therapy daily as patient is significantly weak Nephrology following and will follow-up on repeat labs, monitor kidney functions closely and also Prograf level Blood sugars have been elevated and will adjust insulins accordingly including long-acting recommend to continue with Accu-Cheks AC and at bedtime Follow-up on repeat labs and replace electrolytes per protocol Continuing to await insurance authorization and determination with possible disc harge planning to ECF in the next 24 to 48 hours. The impression and plan of care has been dictated by Mary Vo, Nurse Practitioner as directed. Dr. Kirsten MD I have performed a history and examination and MDM of this patient, discussed the same with the dictator, and agree with the dictator's assessment and plan as written ,documented as a scribe. Based on total visit time, I have performed more than 50% of the visit. Objective - Vital Signs Vital signs: Vital Signs Temp 97.5 F L 11/24/24 07:27 Pulse 57 L 11/24/24 07:27 Resp 16 11/24/24 07:27 BP 119/62 11/24/24 07:27 Pulse Ox 93 L 11/24/24 07:27 FiO2 Intake & Output 11/23/24 11/24/24 11/24/24 18:59 06:59 18:59 Intake Total 118 118 Balance 118 118 Intake: Oral 118 118 Other: # Voids 1 2 - Labs CBC & Chem 7: 11/23/24 06:02 11/23/24 06:02 Labs: Abnormal Lab Results - Last 24 Hours (Table) 11/23/24 11/23/24 11/24/24 Range/Units 17:16 20:02 06:06 POC Glucose (mg/dL) 225 H 222 H 171 H (70-110) mg/dL 11/24/24 Range/Units 12:08 POC Glucose (mg/dL) 223 H (70-110) mg/dL Assessment and Plan Time with Patient: Less than 30
[2024-11-24 17:14] LABS: Glucose,Whole Blood 195 mg/dL (70-110)
[2024-11-24 19:18] LABS: Glucose,Whole Blood 231 mg/dL (70-110)
[2024-11-25 06:06] LABS: Glucose,Whole Blood 131 mg/dL (70-110)
--- NOTE | 2024-11-25 08:35 | P.PN ---
Subjective Patient is seen in follow-up for renal transplant management. GFR at baseline. No active complaints. Vital signs are stable. General: No acute distress. HEENT: Head exam is unremarkable. LUNGS: No audible rhonchi or wheezes. HEART: Rate and Rhythm are regular. ABDOMEN: Nontender. EXTREMITITES: No edema. Objective - Vital Signs Vital signs: Vital Signs Temp 98.3 F 11/25/24 02:00 Pulse 63 11/25/24 02:00 Resp 17 11/25/24 02:00 BP 150/73 11/25/24 02:00 Pulse Ox 96 11/25/24 02:00 FiO2 Intake & Output 11/24/24 11/25/24 11/25/24 18:59 06:59 18:59 Intake Total 236 240 Balance 236 240 Intake: Oral 236 240 Other: # Voids 1 3 - Labs CBC & Chem 7: 11/23/24 06:02 11/23/24 06:02 Labs: Abnormal Lab Results - Last 24 Hours (Table) 11/24/24 11/24/24 11/24/24 Range/Units 12:08 17:12 19:16 POC Glucose (mg/dL) 223 H 195 H 231 H (70-110) mg/dL 11/25/24 Range/Units 06:05 POC Glucose (mg/dL) 131 H (70-110) mg/dL Assessment and Plan Plan: Assessment: 1. Status post donor renal transplant in 2002. 2. 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 3. Generalized weakness and falls. 4. Recent E. coli bacteremia and UTI status post antibiotics. 5. Hypertension with chronic kidney disease. Stable. 6. Chronic diastolic CHF with moderate aortic stenosis. Compensated. Plan: Encouraged oral intake. Maintain antirejection meds. Prograf level 7.7 dated November 13, 2024. Avoid nephrotoxins. Follow-up outpatient 1 to 2 weeks postdischarge.
[2024-11-25 09:31] VITALS: TEMP 97.5
[2024-11-25 09:55] LABS: Glucose,Whole Blood 188 mg/dL (70-110)
[2024-11-25 11:55] LABS: Glucose,Whole Blood 166 mg/dL (70-110)
--- NOTE | 2024-11-25 11:58 | P.DS ---
Providers Date of admission: 11/10/24 11:33 Attending physician: Narinder Rosenberg Consults: 11/10/24 18:02 Consult Physician Routine Consulting Provider: El Man Consult Reason/Comments: kidney transplantpt, known to service Do you want consulting provider notified?: Yes 11/11/24 10:04 Consult Physician Routine Consulting Provider: Bear Winn Consult Reason/Comments: hx of ITP, safe to anticoagulate? hx of AFIB Do you want consulting provider notified?: Yes 11/12/24 12:23 Consult Physician Routine Consulting Provider: Brian Argueta Consult Reason/Comments: [facility] Do you want consulting provider notified?: Yes Primary care physician: Narinder Rosenberg [place] [facility] Course: Final Diagnosis Sarcopenia secondary to multiple falls, recurrent due to medical debility with recent sepsis with acute bacteremia with ESBL E. coli related to urinary tract infection with ESBL Acute on chronic back pain with history of degenerative disc disease Progressive weakness with generalized gait dysfunction and recurrent falls, likely secondary to multiple hospitalizations with recent sepsis History of recent sepsis due to ESBL E. coli with bacteremia Hypomagnesemia, improved after replacement Abnormal troponins, Carey scan showing reversible ischemia involving the lateral wall cardiology recommend maximizing medical management and holding off anticoagulation at this time secondary to recurrent falls and will need outpatient follow-up with possible watchman's device History of persistent atrial fibrillation with a slow ventricular rate, per cardiology no pacemaker implantation recommended at this time History of coronary artery disease with previous CABG Chronic CHF diastolic dysfunction, not in exacerbation Altered mental status with hallucinations secondary to acute metabolic en cephalopathy, improved and at baseline History of anxiety diabetes mellitus, type II uncontrolled with hyperglycemia Chronic kidney disease stage IIIa History of renal transplant on chronic immunosuppression regimen Idiopathic thrombocytopenia purpura follows with hematology outpatient Hyperlipidemia history History of hypertension Obesity with a BMI of 30.4 Discharge Disposition Patient stable for discharge to subacute rehabilitation. He has completed a course of antibiotic therapy for his previous ESBL E. coli UTI. Patient will be recommended to continue on his Seroquel 100 mg at at bedtime which has been prescribed by his psychiatrist Dr. Jaeger from [employer] on an outpatient basis patient appears to be on this medication for the last 4 years. Did discuss with [employer] that patient has a diagnosis of a mood disorder as well as major depressive disorder and persistent depression. Patient will need to be weaned off of this medication as he has been on it for quite some time. This would need to be done under the care of a psychiatrist and follow-up with his outpatient counseling services. His cardiac medications have been adjusted. He will require close follow-up with his rug scratcher Dr. IDA Crabtree as well as a 7th grade social studies teacher Dr. Man. He should follow-up with his PCP Dr. Rosenberg in 1 to 2 days. 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 Patient was brought to the hospital due to frequent falls. According to his at bedside patient fell about 4 times and 3 times she was able to get up and he felt very weak and could not get up himself for for the time. He has been having generalized weakness. He was also being confused and delirious could not sleep overnight. Patient had recent hospitalization for UTI and sepsis. He was discharged on 11/06/2024. He was found to have ESBL E. coli urinary tract infection and was discharged after completing Invanz for 10-day course. Patient did have elevated troponins which was felt to be flat and of unclear significance with no evidence of an acute coronary syndrome. He underwent cardiac evaluation. echo reported EF of 55 to 60% mild to moderate mitral regurgitation, moderate aortic stenosis, mild to moderate aortic regurgitation and mild tricuspid regurgitation. Lexiscan stress test reported reversible ischemia involving lateral wall. His primary rug scratcher Dr. IDA Crabtree was recommending medical management at this time's with no plans for cardiac catheterization. Patient was cleared to begin anticoagulate cardiology is recommending to hold off on anticoagulation at this time and further recommendations to come on office follow-up. He may require a Watchman procedure. His renal function has improved. patient is progressively becoming more weak and has had frequent hospitalizations over the last few weeks. Patient would benefit from ECF for continued strength and mobility as he lives with his at home and they are elderly with concerns of a safe discharge plan. Social work is following and insurance authorization has been obtained for DC to [facility] for [facility]. He is awake alert and oriented. He has no complaints of chest pain or shortness of breath. Most recent labs reveal a white blood cell count of 7.14, hemoglobin 11.2, sodium 140, potassium 4.3, BUN of 25.8, creatinine 1.2. Magnesium level 1.8. Blood glucose is in the 200s. He is currently afebrile heart rate of 60 normal sinus rhythm, blood pressure 147 over 5795% room air. Please see medication reconciliation for a list of current medications. Thank you for allowing us to participate in the care of this patient. The impression and plan of care has been dictated by Mary Vo, Nurse Practitioner as directed. Dr. Kirsten MD I have performed a history and physical examination and medical decision making of this patient, discussed the same with the dictator, and agree with the dictators assessment and plan as written, documented as a scribe. Based on total visit time, I have performed more than 50% of this visit. Patient Condition at Discharge: Stable Plan - Discharge Summary Discharge Rx Participant: Yes New Discharge Prescriptions: New traMADol HCl [Ultram] 50 mg PO QID #12 tab QUEtiapine [SEROquel] 100 mg PO HS #30 tablet hydrALAZINE HCL [Apresoline] 25 mg PO TID #90 tab Nitroglycerin Sl Tabs [Nitrostat] 0.4 mg SUBLINGUAL Q5M PRN tab PRN Reason: Chest Pain Continue Finasteride [Proscar] 5 mg PO DAILY Tamsulosin HCl [Flomax] 0.4 mg PO DAILY Multivitamins, Thera [Multivitamin (formulary)] 1 tab PO DAILY Vit C/E/Zn/Coppr/Lutein/Zeaxan [Preservision Areds 2 Softgel] 1 cap PO HS Pantoprazole [Protonix] 40 mg PO DAILY Tacrolimus [Prograf] 1 mg PO BID Sodium Bicarbonate Tab 650 mg PO BID rOPINIRole HCL [Requip] 1 mg PO HS Magnesium Oxide [Mag-Ox] 400 mg PO DAILY tab Loperamide [Imodium] 2 mg PO QID PRN #24 cap PRN Reason: Diarrhea Ferrous Sulfate [Iron] 325 mg PO DAILY predniSONE 5 mg PO DAILY Gabapentin [Neurontin] 400 mg PO HS Acetaminophen Tab [Tylenol] 650 mg PO Q6HR PRN tab PRN Reason: Mild Pain Or Fever > 100.5 Insulin Lispro [humaLOG Kwikpen] See Protocol SQ AC-TID Levothyroxine Sodium [Synthroid] 75 mcg PO DAILY DULoxetine HCL [Cymbalta] 120 mg PO DAILY Aspirin 81 mg PO DAILY Rosuvastatin Calcium [Crestor] 5 mg PO HS Eltrombopag Olamine [Promacta] 12.5 mg PO DAILY@0700 mycophenolate mofetiL [Cellcept] 250 mg PO BID #0 Vibegron [Gemtesa] 75 mg PO DAILY Insulin Glargine/Lixisenatide [Soliqua 100 Unit-33 Mcg/ml Pen] 20 units SQ DAILY #0 amLODIPine [Norvasc] 5 mg PO BID #60 tab Mirabegron [Myrbetriq] 50 mg PO DAILY Changed Metoprolol Tartrate [Lopressor] 50 mg PO BID #60 tab Discontinued QUEtiapine [SEROquel] 100 mg PO HS hydrALAZINE HCL [Apresoline] 100 mg PO TID PRN PRN Reason: BP>140 hydrALAZINE HCL [Apresoline] 50 mg PO TID #90 tab Discharge Medication List Finasteride [Proscar] 5 mg PO DAILY 02/09/17 [History] Tamsulosin HCl [Flomax] 0.4 mg PO DAILY 02/09/17 [History] Multivitamins, Thera [Multivitamin (formulary)] 1 tab PO DAILY 12/31/18 [History] Vit C/E/Zn/Coppr/Lutein/Zeaxan [Preservision Areds 2 Softgel] 1 cap PO HS 12/18/19 [History] Pantoprazole [Protonix] 40 mg PO DAILY 12/28/19 [History] Tacrolimus [Prograf] 1 mg PO BID 04/03/20 [History] DULoxetine HCL [Cymbalta] 120 mg PO DAILY 12/01/20 [History] Levothyroxine Sodium [Synthroid] 75 mcg PO DAILY 12/01/20 [History] Aspirin 81 mg PO DAILY 07/12/21 [History] Rosuvastatin Calcium [Crestor] 5 mg PO HS 07/12/21 [History] Sodium Bicarbonate Tab 650 mg PO BID 07/12/21 [History] rOPINIRole HCL [Requip] 1 mg PO HS 09/02/21 [History] Eltrombopag Olamine [Promacta] 12.5 mg PO DAILY@0700 05/31/23 [History] Magnesium Oxide [Mag-Ox] 400 mg PO DAILY tab 06/07/23 [Rx] Loperamide [Imodium] 2 mg PO QID PRN #24 cap 08/09/23 [Rx] mycophenolate mofetiL [Cellcept] 250 mg PO BID #0 08/09/23 [Rx] Ferrous Sulfate [Iron] 325 mg PO DAILY 03/18/24 [History] Gabapentin [Neurontin] 400 mg PO HS 10/22/24 [History] Vibegron [Gemtesa] 75 mg PO DAILY 10/22/24 [History] predniSONE 5 mg PO DAILY 10/22/24 [History] Acetaminophen Tab [Tylenol] 650 mg PO Q6HR PRN tab 10/31/24 [Rx] Insulin Glargine/Lixisenatide [Soliqua 100 Unit-33 Mcg/ml Pen] 20 units SQ DAILY #0 10/31/24 [Rx] amLODIPine [Norvasc] 5 mg PO BID #60 tab 11/01/24 [Rx] Insulin Lispro [humaLOG Kwikpen] See Protocol SQ AC-TID 11/04/24 [History] Mirabegron [Myrbetriq] 50 mg PO DAILY 11/10/24 [History] Metoprolol Tartrate [Lopressor] 50 mg PO BID #60 tab 11/14/24 [Rx] hydrALAZINE HCL [Apresoline] 25 mg PO TID #90 tab 11/14/24 [Rx] Nitroglycerin Sl Tabs [Nitrostat] 0.4 mg SUBLINGUAL Q5M PRN tab 11/18/24 [Rx] traMADol HCl [Ultram] 50 mg PO QID #12 tab 11/18/24 [Rx] QUEtiapine [SEROquel] 100 mg PO HS #30 tablet 11/25/24 [Rx] Follow up Appointment(s)/Referral(s): Binta Crabtree MD [STAFF PHYSICIAN] - 1 Week Narinder Rosenberg DO [Primary Care Provider] - 1 Week (After discharge from rehab.) El Man DO [STAFF PHYSICIAN] - 1 Week Activity/Diet/Wound Care/Special Instructions: MUKUL with carve out for expensive meds CBC, BMP in 3 days PATIENT HAS HOME MED IN MED ROOM IN HIS BIN, PLEASE GIVE TO HIM BEFORE HE LEAVES Discharge Disposition: TRANSFER TO SNF/ECF
[2024-11-25 16:15] VITALS: BP 125/64; PULSE 59; RESP 17
== END 2024-11-25 17:06 | DRG 557 ==
LOC: EC 06:04 → 6NMEDSUR 11:33
PROVIDERS: ADMIT Family Medicine; ATTEND Family Medicine
DX: M62.84 Sarcopenia (principal); G93.41 Metabolic encephalopathy; T86.19 Other complication of kidney transplant; D69.3 Immune thrombocytopenic purpura; D84.821 Immunodeficiency due to drugs; N03.9 Chronic nephritic syndrome with unspecified morphologic changes; I27.22 Pulmonary hypertension due to left heart disease; C61 Malignant neoplasm of prostate; I13.0 Hypertensive heart and chronic kidney disease with heart failure and stage 1 through stage 4 chronic kidney disease, or unspecified chronic kidney disease; F33.9 Major depressive disorder, recurrent, unspecified; N18.31 Chronic kidney disease, stage 3a; E11.65 Type 2 diabetes mellitus with hyperglycemia; E89.0 Postprocedural hypothyroidism; Z68.30 Body mass index [BMI] 30.0-30.9, adult; I08.3 Combined rheumatic disorders of mitral, aortic and tricuspid valves; I50.32 Chronic diastolic (congestive) heart failure; I48.11 Longstanding persistent atrial fibrillation; R44.3 Hallucinations, unspecified; E11.22 Type 2 diabetes mellitus with diabetic chronic kidney disease; Z79.4 Long term (current) use of insulin; E66.9 Obesity, unspecified; I25.10 Atherosclerotic heart disease of native coronary artery without angina pectoris; R29.6 Repeated falls; H91.90 Unspecified hearing loss, unspecified ear; F41.9 Anxiety disorder, unspecified; E78.5 Hyperlipidemia, unspecified; E83.42 Hypomagnesemia; R00.1 Bradycardia, unspecified; R26.9 Unspecified abnormalities of gait and mobility; G89.29 Other chronic pain; W19.XXXA Unspecified fall, initial encounter; Z79.01 Long term (current) use of anticoagulants; Z79.624 Long term (current) use of inhibitors of nucleotide synthesis; Z79.82 Long term (current) use of aspirin; Z91.81 History of falling; Z79.890 Hormone replacement therapy; Z79.899 Other long term (current) drug therapy; Z79.52 Long term (current) use of systemic steroids; Z86.718 Personal history of other venous thrombosis and embolism; Z95.1 Presence of aortocoronary bypass graft; Z85.820 Personal history of malignant melanoma of skin; Z86.12 Personal history of poliomyelitis; Y93.01 Activity, walking, marching and hiking; Z86.19 Personal history of other infectious and parasitic diseases; Y83.0 Surgical operation with transplant of whole organ as the cause of abnormal reaction of the patient, or of later complication, without mention of misadventure at the time of the procedure; Y92.009 Unspecified place in unspecified non-institutional (private) residence as the place of occurrence of the external cause; Z90.89 Acquired absence of other organs
CPT/HCPCS: 36415; 70450; 71045; 72125; 78452; 80048; 80053; 80197; 81001; 83605; 83735; 84145; 84443; 84484; 85025; 85610; 85730; 93005; 93017; 93306; 94760; 96372; 99285

== ENCOUNTER → 2025-02-05 | Outpatient (CLI) | payer MEDICARE ==
--- NOTE | 2025-02-06 07:29 | MR ---
EXAMINATION TYPE: MR lumbar spine wo con DATE OF EXAM: 02/05/2025 10:09 PM COMPARISON: Plain film. CLINICAL INDICATION: Male, 84 years old with history of M54.50; PHH, lower center back pain TECHNIQUE: Multi planar, multi sequence imaging was performed utilizing: T1-weighted, T2-weighted, a nd turbo inversion recovery imaging of the lumbar spine. IV Contrast: mL (None, if empty) FINDINGS: Alignment: The lumbar vertebral bodies have preserved heights and alignment. Cord: The conus medullaris and the distal spinal cord appear unremarkable with regards to their signa l intensity and morphology. Bones/Discs: Blastic changes to L2 with fixation hardware at L3-L4 and L5. Discectomy at L3-L4 and L4 -L5. Remains bony edema in the L2 vertebral body Mild degeneration changes throughout the spine with osteophyte formation and facet joint arthropathy. Multilevel disc desiccation is present. Disc heigh t loss worse at L1-L3. T12-L1: No evidence of significant spinal canal stenosis or neural foraminal stenosis. L1-L2: No evidence of significant spinal canal stenosis or neural foraminal stenosis. L2-L3: Disc bulge with left central disc protrusion and facet joint arthropathy with severe spinal ca nal stenosis and moderate to severe right and severe left neural foraminal stenosis. L3-L4: Susceptibility artifact limits evaluation at this level. The spinal canal is patent and there is moderate bilateral neural foraminal stenosis.. L4-L5: Susceptibility artifact limits evaluation at this level. The spinal canal is patent and there is severe right and mild left neural foraminal stenosis.. L5-S1: Susceptibility artifact limits evaluation at this level. The spinal canal is patent and there is mild bilateral neural foraminal stenosis.. No significant spinal canal or neural foraminal stenosis in the remainder of the visualized levels. Other findings: None. IMPRESSION: 1. L2-3 severe spinal canal stenosis secondary to disc bulge with superimposed disc protrusion and f acet joint arthropathy. This results in severe left and moderate to severe right neural foraminal pj nosis. 2. Postsurgical changes L2-L5 which limits evaluation slightly. 3. 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 4. L3-L4 moderate bilateral and L4-L5 severe right neural foraminal stenosis. [facility], , 02/06/2025 7:26 AM
== END | disposition home or self-care (01) ==
LOC: RADMRIMAIN 21:15
PROVIDERS: ATTEND Orthopaedic Surgery
DX: S32.009A Unspecified fracture of unspecified lumbar vertebra, initial encounter for closed fracture (principal); M48.061 Spinal stenosis, lumbar region without neurogenic claudication; M51.360 Other intervertebral disc degeneration, lumbar region with discogenic back pain only; M51.26 Other intervertebral disc displacement, lumbar region; M47.819 Spondylosis without myelopathy or radiculopathy, site unspecified; X58.XXXA Exposure to other specified factors, initial encounter
CPT/HCPCS: 72148

== ENCOUNTER → 2025-02-12 | Outpatient (CLI) | payer MEDICARE | END | disposition home or self-care (01) | LOC: LABPAT 11:56 | PROVIDERS: ATTEND Orthopaedic Surgery | DX: Z01.812 Encounter for preprocedural laboratory examination (principal); Z22.322 Carrier or suspected carrier of Methicillin resistant Staphylococcus aureus; S32.009A Unspecified fracture of unspecified lumbar vertebra, initial encounter for closed fracture | CPT/HCPCS: 36415; 86850; 86900; 86901; 87070 ==